=== PATIENT | female | born 1970 | race Caucasian/White ===

== ENCOUNTER 2023-01-20 12:39 | Outpatient (RCR) | payer OTHER, SELFPAY | END 2023-01-21 14:00 | disposition home or self-care (01) | LOC: ST 12:39 | PROVIDERS: PCP Family Medicine; Visit Provider Family Medicine | DX: R13.10 Dysphagia, unspecified (principal); G43.709 Chronic migraine without aura, not intractable, without status migrainosus; I27.20 Pulmonary hypertension, unspecified; R20.0 Anesthesia of skin | CPT/HCPCS: 92610 ==

== ENCOUNTER 2023-01-22 16:12 | Emergency (ER) | payer OTHER, SELFPAY ==
[2023-01-22 16:27] VITALS: BP 137/90; PULSE 82; RESP 16; TEMP 36.8; O2SAT 98; BMI 48.6
--- NOTE | 2023-01-22 16:53 | ED.GENADUL1 ---
HPI - General Adult General Chief complaint: Headache Stated complaint: BACK PAIN, HEADACHE Time Seen by Provider: 01/22/23 16:53 Source: patient Source information: headache, and mid back pain for 2 days Mode of arrival: walk-in Limitations: no limitations History of Present Illness HPI narrative: pt presents to the emergency Department co migraine headache. She states symptoms started 2 days ago. She has not been able to take anything at home. She has a lot of nausea. She has decreased oral intake. She has photophobia, phonophobia. Has a history of migraines and this feels like her normal migraine. Denies any fever, or trauma. She denies any paresthesias, or weakness. Patient states she also has right flank pain and has a history of kidney stones so she wanted to check her urine to see if there is any infection. She denies any vomiting, diarrhea, or constipation. She denies any abdominal pain.She denies any hematuria, dysuria. Related Data Home Medications Medication Instructions Recorded Confirmed albuterol sulfate 90 mcg/actuation inhalation 01/22/23 aerosol inhaler amitriptyline 100 mg tablet mg 01/22/23 amlodipine 2.5 mg tablet mg 01/22/23 cyclobenzaprine 10 mg tablet mg 01/22/23 dronabinol 10 mg capsule mg 01/22/23 febuxostat 40 mg tablet mg 01/22/23 gabapentin 300 mg capsule mg 01/22/23 guanfacine 2 mg tablet,extended mg PO 01/22/23 release 24 hr ipratropium 0.5 mg-albuterol 3 mg ml inhalation 01/22/23 (2.5 mg base)/3 mL nebulization soln metoprolol succinate 25 mg mg PO 01/22/23 tablet,extended release 24 hr montelukast 10 mg tablet mg 01/22/23 ondansetron 8 mg disintegrating mg 01/22/23 tablet pantoprazole 40 mg tablet,delayed mg PO 01/22/23 release promethazine 25 mg tablet mg 01/22/23 spironolactone 50 mg tablet mg 01/22/23 theophylline 300 mg mg PO 01/22/23 tablet,extended release,12 hr Allergies Allergy/AdvReac Type Severity Reaction Status Date / Time latex Allergy Severe Verified 01/22/23 16:41 NSAIDS (Non-Steroidal Allergy Mild Verified 01/22/23 16:41 Anti-Inflamma azithromycin Allergy Verified 01/22/23 16:41 ceftriaxone [From Rocephin] Allergy Verified 01/22/23 16:41 codeine Allergy Verified 01/22/23 16:41 fluticasone Allergy Verified 01/22/23 16:41 [From Advair Diskus] heparin Allergy Verified 01/22/23 16:41 medroxyprogesterone Allergy Verified 01/22/23 16:41 [From Depo-Provera] morphine Allergy Verified 01/22/23 16:41 nalbuphine [From Nubain] Allergy Verified 01/22/23 16:41 Neuromuscular Blockers, Allergy Verified 01/22/23 16:41 Steroidal salmeterol Allergy Verified 01/22/23 16:41 [From Advair Diskus] tizanidine [From Zanaflex] Allergy Verified 01/22/23 16:41 [id number] Antimigraine Allergy Verified 01/22/23 16:41 Agents warfarin [From Coumadin] Allergy Verified 01/22/23 16:41 TORADOL Allergy Uncoded 01/22/23 16:41 Review of Systems ROS Status of ROS 10 or more systems reviewed and unremarkable except as noted in history and below PFSH PFS Social History Smoking status: Former smoker Exam Narrative Exam Narrative: Nurses notes and vital signs reviewed and patient is not hypoxic. General: Nontoxic, Well-appearing and in no apparent distress. Skin: Warm, dry, no pallor noted. No Rash Head: Normocephalic, atraumatic. Neck: Supple, non-tender. Eye: Pupils are equal, round and EOMI. No scleral icterus. Ears, Nose, Mouth, and Throat: TM clear, no posterior oropharynx erythema or nasal mucosal hypertrophy, uvula is mid-line Oral mucosa is moist Cardiovascular: Regular Rate and Rhythm without murmur, gallop or rub. Respiratory: No accessory muscle use or respiratory distress. Lungs are clear to auscultation, no wheezing, rales or rhonchi Chest Wall: no tenderness Back: No midline thoracic or lumbar vertebral tenderness. No CVA tenderness Musculoskeletal: normal ROM, no calf or popliteal tenderness, no lower extremity edema/swelling GI: Abdomen is soft, non-distended. Normal bowel sounds. No masses appreciated. No tenderness to palpation. No rebound, guarding, or rigidity noted. Neurological: A&O x4. No cranial nerve dysfunction observed. No truncal ataxia. Moves all extremities. Sensation intact. Psychiatric: Cooperative and interactive. Normal mood and affect. Constitutional Vital Signs - 24 hr 01/22/23 16:27 01/22/23 16:58 Temperature 98.2 F Pulse Rate 95 H Pulse Rate [Monitor] 82 Respiratory Rate 16 18 Blood Pressure 136/85 H Blood Pressure [Right Radial Artery] 137/90 H Pulse Oximetry 98 95 Oxygen Delivery Method Room Air Course Vital Signs Vital signs: Vital Signs Temperature 98.2 F 01/22/23 16:27 Pulse Rate 82 01/22/23 16:27 Respiratory Rate 16 01/22/23 16:27 Blood Pressure 137/90 H 01/22/23 16:27 Pulse Oximetry 98 01/22/23 16:27 Oxygen Delivery Method Room Air 01/22/23 16:27 Temperature 98.2 F 01/22/23 16:27 Pulse Rate 95 H 01/22/23 16:58 Respiratory Rate 18 01/22/23 16:58 Blood Pressure 136/85 H 01/22/23 16:58 Pulse Oximetry 95 01/22/23 16:58 Oxygen Delivery Method Room Air 01/22/23 16:27 Medical Decision Making MDM Narrative Medical decision making narrative: Patient was given 1 L of normal saline, 4 mg of Zofran, and 1 mg of Dilaudid. Patient states he normally give her Benadryl with this cocktail to help relieve the migraine completely. All of the results were discussed with patient. She is advised to urine does not show any signs of infection or kidney stone. Patient will follow up with primary care doctor. At this time the patient is without objective evidence of an acute process requiring hospitalization or inpatient management. The patient has remained hemodynamically stable. No additional indication for emergent studies at this time. I answered all questions. Discussed discharge instructions including standard anticipatory guidance and what should prompt a return to the emergency department, including if they get worse are not getting better or develops any new or concerning symptoms. I've given them specific time frame in which to follow-up, and who to follow-up with. The patient demonstrates understanding. Patient is nontoxic and stable for discharge with outpatient follow-up. This note was created with the assistance of a speech recognition program. Although the intention is to generate documents that actually reflects the content of the visit, no guarantees can be provided that every mistake has been identified and corrected by editing. Lab Data Labs: Lab Results 01/22/23 Range/Units 16:50 WBC 5.0 (4.0-11.0) 10^3/uL RBC 4.76 (4.20-5.40) 10^6/uL Hgb 14.5 (12.0-16.0) g/dL Hct 42.8 (36.0-48.0) % MCV 89.9 (81.0-99.0) fL MCH 30.5 (26.7-34.0) pg MCHC 33.9 (29.9-35.2) g/dL RDW 12.9 (11.0-15.0) % Plt Count 344 (150-450) 10^3/uL MPV 10.0 (9.5-13.5) fL Neut % (Auto) 39.6 L (43.0-75.0) % Lymph % (Auto) 43.5 (20.5-60.0) % [place] % (Auto) 10.1 (1.7-12.0) % Eos % (Auto) 5.6 (0.9-7.0) % Baso % (Auto) 0.8 (0.2-2.0) % Neut # (Auto) 2.0 (1.4-6.5) 10^3/uL Lymph # (Auto) 2.2 (1.2-3.8) 10^3/uL [place] # (Auto) 0.5 (0.3-0.8) 10^3/uL Eos # (Auto) 0.3 (0.0-0.7) 10^3/uL Baso # (Auto) 0.0 (0.0-0.1) 10^3/uL Abs Immat Gran (auto) 0.02 (0.00-0.03) 10^3/uL Imm/Tot Granulo (auto) 0.4 (0.0-0.5) % Sodium 135 L (136-145) mmol/L Potassium 4.0 (3.5-5.1) mmol/L Chloride 100 (98-107) mmol/L Carbon Dioxide 25.4 (21.0-32.0) mmol/L Anion Gap 13.6 BUN 11.0 (7.0-18.0) mg/dL Creatinine 1.07 H (0.55-1.02) mg/dL Est GFR ( Amer) >60 (>=60) Est GFR (Non-Af Amer) 54 L (>=60) BUN/Creatinine Ratio 10.3 Glucose 100 (74-106) mg/dL Calcium 9.9 (8.5-10.1) mg/dL Total Bilirubin 0.3 (0.2-1.0) mg/dL AST 28 (15-37) U/L ALT 34 (14-59) U/L Alkaline Phosphatase 95 (46-116) U/L Total Protein 9.0 H (6.4-8.2) g/dL Albumin 3.9 (3.4-5.0) g/dL Globulin 5.1 g/dL Albumin/Globulin Ratio 0.8 Urine Color Lt. yellow (YELLOW) Urine Clarity Clear (CLEAR) Urine pH 6.0 (5.0-9.0) Ur Specific [place] <=1.005 A (1.005-1.025) Urine Protein Negative (NEG/TRACE) mg/dL Urine Glucose (UA) Negative (NEGATIVE) mg/dL Urine Ketones Negative (NEGATIVE) mg/dL Urine Occult Blood Negative (NEGATIVE) Urine Nitrite Negative (NEGATIVE) Urine Bilirubin Negative (NEGATIVE) Urine Urobilinogen 0.2 (0.2-1.0) EU/dL Ur Leukocyte Esterase Negative (NEGATIVE) Discharge Plan Discharge Chief Complaint: Headache Clinical Impression: Migraine Patient Disposition: Home, Self-Care Time of Disposition Decision: 17:58 Condition: Good Mode of Transportation: Private Vehicle Prescriptions / Home Meds: No Action cyclobenzaprine 10 mg tablet ipratropium-albuterol 0.5 mg-3 mg(2.5 mg base)/3 mL solution for nebulization INHALATION amlodipine 2.5 mg tablet ondansetron 8 mg tablet,disintegrating theophylline 300 mg tablet extended release 12 hr PO pantoprazole 40 mg tablet,delayed release (DR/EC) PO promethazine 25 mg tablet gabapentin 300 mg capsule montelukast 10 mg tablet dronabinol 10 mg capsule metoprolol succinate 25 mg tablet extended release 24 hr PO albuterol sulfate 90 mcg/actuation HFA aerosol inhaler INHALATION amitriptyline 100 mg tablet spironolactone 50 mg tablet febuxostat 40 mg tablet guanfacine 2 mg tablet extended release 24 hr PO Instructions: Migraine Headache (ED) Stand Alone Forms: Portal Instructions Referrals: COLT WILLIS [Primary Care Provider] - 1 week
[2023-01-22 16:58] VITALS: BP 136/85; PULSE 95; RESP 18; O2SAT 95
[2023-01-22 17:11] LABS: Basophils Percent Auto 0.8 % (0.2-2.0); Eosinophils Absolute Auto 0.3 10^3/uL (0.0-0.7); Eosinophils Percent Auto 5.6 % (0.9-7.0); Hematocrit 42.8 % (36.0-48.0); Hemoglobin 14.5 g/dL (12.0-16.0); Immature Granulocytes Abs Auto 0.02 10^3/uL (0.00-0.03); Immature Granulocytes Pct Auto 0.4 % (0.0-0.5); Lymphocytes Absolute Auto 2.2 10^3/uL (1.2-3.8); Lymphocytes Percent Auto 43.5 % (20.5-60.0); Mean Corpuscular HGB Conc 33.9 g/dL (29.9-35.2); Mean Corpuscular Hemoglobin 30.5 pg (26.7-34.0); Mean Corpuscular Volume 89.9 fL (81.0-99.0); Monocytes Absolute Auto 0.5 10^3/uL (0.3-0.8); Monocytes Percent Auto 10.1 % (1.7-12.0); Neutrophils Percent Auto 39.6 % (43.0-75.0); Platelet Count 344 10^3/uL (150-450); Red Blood Count 4.76 10^6/uL (4.20-5.40); Red Cell Distribution Width 12.9 % (11.0-15.0)
[2023-01-22 17:18] LABS: Bilirubin Urine NEGATIVE (NEGATIVE); Blood Urine NEGATIVE (NEGATIVE); Clarity Urine CLEAR (CLEAR); Color Urine LT. YELLOW (YELLOW); Glucose Urine UA NEGATIVE (NEGATIVE); Ketones Urine NEGATIVE (NEGATIVE); Leukocyte Esterase Urine NEGATIVE (NEGATIVE); Nitrite Urine NEGATIVE (NEGATIVE); Protein Urine NEGATIVE (NEG/TRACE); Specific Gravity Urine <=1.005 (1.005-1.025); Urobilinogen Urine 0.2 EU/dL (0.2-1.0)
[2023-01-22 17:19] LABS: Urine Microscopic Indicated NO
[2023-01-22] MEDS: ONDANSETRON PF 4 MG/2 ML VIAL IV (17:24)
[2023-01-22] MEDS: HYDROMORPHONE HCL 1 MG/ML CARTRIDGE IVP (17:24)
[2023-01-22] MEDS: 0.9 % SODIUM CHLORIDE 1,000 ML 999 ML IV (17:24)
[2023-01-22 17:25] LABS: Alanine Aminotransferase 34 U/L (14-59); Albumin Globulin Ratio 0.8; Albumin Level 3.9 g/dL (3.4-5.0); Alkaline Phosphatase 95 U/L (46-116); Anion Gap 13.6; Aspartate Amino Transferase 28 U/L (15-37); BUN Creatinine Ratio 10.3; Bilirubin Total 0.3 mg/dL (0.2-1.0); Calcium 9.9 mg/dL (8.5-10.1); Carbon Dioxide 25.4 mmol/L (21.0-32.0); Chloride 100 mmol/L (98-107); Estimated GFR (African America >60 (>=60); Estimated GFR (Non-African Ame 54 (>=60); Globulin 5.1 g/dL; Glucose 100 mg/dL (74-106); Sodium 135 mmol/L (136-145)
[2023-01-22 18:07] VITALS: BP 123/97; PULSE 83; RESP 18; O2SAT 95
[2023-01-22 18:47] VITALS: BP 122/86; PULSE 84; RESP 18; O2SAT 96
== END 2023-01-22 18:49 | disposition home or self-care (01) ==
PROVIDERS: Emergency Provider Emergency Medicine; PCP Family Medicine
DX: G43.909 Migraine, unspecified, not intractable, without status migrainosus (principal); Z79.899 Other long term (current) drug therapy; Z87.891 Personal history of nicotine dependence
CPT/HCPCS: 36415; 80053; 81003; 85025; 96374; 96375; 99285; J1170

== ENCOUNTER 2023-01-30 11:21 | Outpatient (OUT) | payer OTHER, SELFPAY ==
[2023-01-30 12:16] LABS: Basophils Absolute Auto 0.1 10^3/uL (0.0-0.1); Basophils Percent Auto 0.7 % (0.2-2.0); Eosinophils Absolute Auto 0.1 10^3/uL (0.0-0.7); Eosinophils Percent Auto 1.7 % (0.9-7.0); Hematocrit 44.8 % (36.0-48.0); Hemoglobin 15.2 g/dL (12.0-16.0); Immature Granulocytes Abs Auto 0.04 10^3/uL (0.00-0.03); Immature Granulocytes Pct Auto 0.5 % (0.0-0.5); Lymphocytes Absolute Auto 2.2 10^3/uL (1.2-3.8); Lymphocytes Percent Auto 26.9 % (20.5-60.0); Mean Corpuscular HGB Conc 33.9 g/dL (29.9-35.2); Mean Corpuscular Volume 88.5 fL (81.0-99.0); Mean Platelet Volume 11.1 fL (9.5-13.5); Monocytes Absolute Auto 0.5 10^3/uL (0.3-0.8); Monocytes Percent Auto 6.5 % (1.7-12.0); Neutrophils Absolute Auto 5.3 10^3/uL (1.4-6.5); Neutrophils Percent Auto 63.7 % (43.0-75.0); Platelet Count 196 10^3/uL (150-450); Red Blood Count 5.06 10^6/uL (4.20-5.40); Red Cell Distribution Width 13.2 % (11.0-15.0); White Blood Count 8.3 10^3/uL (4.0-11.0)
[2023-01-30 12:55] LABS: Erythrocyte Sedimentation Rate 44 mm/hr (<=30)
[2023-01-30 13:13] LABS: C Reactive Protein <0.2 mg/dL (<=1.0)
[2023-01-31 06:23] LABS: Immunoglobulin A, Qn 660 mg/dL (87-352); Immunoglobulin G, Qn 1619 mg/dL (586-1602)
[2023-01-31 15:07] LABS: Antinuclear Antibodies, IFA Positive (.)
[2023-02-04 04:07] LABS: M006-IgE Alternaria alternata <0.10 kU/L (Class 0)
[2023-06-19 15:04] LABS: E001-IgE Cat Dander <0.10; E005-IgE Dog Dander <0.10; M003-IgE Aspergillus fumigatus <0.10; W001-IgE Ragweed, Short <0.10
[2023-06-19 15:05] LABS: D002-IgE D farinae <0.10; G006-IgE Timothy Grass <0.10; T007-IgE Oak, White <0.10
== END 2023-01-30 11:22 | disposition home or self-care (01) ==
LOC: LAB 11:24
PROVIDERS: PCP Family Medicine
DX: Z13.0 Encounter for screening for diseases of the blood and blood-forming organs and certain disorders involving the immune mechanism (principal)
CPT/HCPCS: 36415; 82784; 83520; 85025; 85652; 86003; 86038; 86140; 86317

== ENCOUNTER 2023-02-05 15:41 | Outpatient (OUT) | payer OTHER, SELFPAY ==
[2023-02-05 16:57] LABS: Free T4 1.04 ng/dL (0.76-1.46)
[2023-02-05 17:00] LABS: Thyroid Stimulating Hormone 0.777 uIU/mL (0.358-3.740)
== END 2023-02-05 15:42 | disposition home or self-care (01) ==
PROVIDERS: PCP Family Medicine; Visit Provider Family Medicine
DX: E03.9 Hypothyroidism, unspecified (principal)
CPT/HCPCS: 36415; 84439; 84443

== ENCOUNTER 2023-02-17 12:10 | Outpatient (OUT) | payer OTHER, SELFPAY | END 2023-02-17 12:11 | disposition home or self-care (01) | PROVIDERS: PCP Family Medicine | DX: Z13.0 Encounter for screening for diseases of the blood and blood-forming organs and certain disorders involving the immune mechanism (principal) | CPT/HCPCS: 36415; 86003 ==

== ENCOUNTER 2023-03-04 16:08 | Emergency (ER) | payer OTHER, SELFPAY ==
[2023-03-04 16:17] VITALS: BP 156/92; PULSE 79; RESP 18; TEMP 36.6; O2SAT 98; BMI 40.3
--- NOTE | 2023-03-04 16:45 | ED.GENADUL1 ---
HPI - General Adult General Chief complaint: Headache Stated complaint: HEADACHE Time Seen by Provider: 03/04/23 16:41 Source: patient Mode of arrival: walk-in Limitations: no limitations History of Present Illness HPI narrative: Patient is a 52-year-old female who is presenting to the Emergency Room with chief complaint headache to the occipital area despite going on since Friday. Patient is taking 3 Phenergan today. Patient's had intractable nausea and vomiting. Patient had no trauma, no falls. Patient has long-standing history of headaches and migraines. Patient does see Dr. Sullivan for neurology at [facility]. Patient has a 34 ALLERGIES according to the patient. Patient states is been months since she had a come to the Emergency Room for headache/migraine. Patient's and family member at bedside. Patient has diffuse abdominal cramping. Patient has photophobia. This is patient's typical migraine. Patient's headache was not the worse headache of her life, not sudden onset, not thunderclap in nature. . All systems are negative except as noted/marked. All systems reviewed and otherwise negative. . Nurses note and vital signs reviewed and patient is not hypoxic. General: The patient appears well and in no apparent distress. Patient is resting comfortably on cart. Patient is not toxic, lethargic, or listless Skin: Warm, dry, no pallor noted. There is no rash noted. No petechiae, purpura. Head: Normocephalic, atraumatic, patient not complaining of any tenderness palpation to soft tissue of cervical spine, no meningeal signs or symptoms. Patient is wearing sunglasses. Eye: Normal conjunctiva, no drainage, EOMI. PERRL Ears, Nose, Mouth, and Throat: oral mucosa is moist. Nares patent. Mouth without vesicles. Cardiovascular: Regular Rate and Rhythm, no murmur, gallop, rub Respiratory: Patient is in no distress, no accessory muscle use, lungs are clear to auscultation, no wheezing, rales or rhonchi Back: non-tender, no CVA tenderness bilaterally to percussion. No CT LS midline pain GI: soft, obese,diffuse mild tenderness to palpation, no masses appreciated. No rebound, guarding, or rigidity noted. No flank pain bilateral, No distention Musculoskeletal: Patient has full range of motion of all of the extremities, no motor, sensory, or focal neurological deficits Neurological: A&O x3, normal speech. Psychiatric: Cooperative Related Data Home Medications Medication Instructions Recorded Confirmed albuterol sulfate 90 mcg/actuation inhalation 01/22/23 aerosol inhaler amitriptyline 100 mg tablet mg 01/22/23 amlodipine 2.5 mg tablet mg 01/22/23 cyclobenzaprine 10 mg tablet mg 01/22/23 dronabinol 10 mg capsule mg 01/22/23 febuxostat 40 mg tablet mg 01/22/23 gabapentin 300 mg capsule mg 01/22/23 guanfacine 2 mg tablet,extended mg PO 01/22/23 release 24 hr ipratropium 0.5 mg-albuterol 3 mg ml inhalation 01/22/23 (2.5 mg base)/3 mL nebulization soln metoprolol succinate 25 mg mg PO 01/22/23 tablet,extended release 24 hr montelukast 10 mg tablet mg 01/22/23 ondansetron 8 mg disintegrating mg 01/22/23 tablet pantoprazole 40 mg tablet,delayed mg PO 01/22/23 release promethazine 25 mg tablet mg 01/22/23 spironolactone 50 mg tablet mg 01/22/23 theophylline 300 mg mg PO 01/22/23 tablet,extended release,12 hr Allergies Allergy/AdvReac Type Severity Reaction Status Date / Time latex Allergy Severe Verified 01/22/23 16:41 NSAIDS (Non-Steroidal Allergy Mild Verified 01/22/23 16:41 Anti-Inflamma azithromycin Allergy Verified 01/22/23 16:41 ceftriaxone [From Rocephin] Allergy Verified 01/22/23 16:41 codeine Allergy Verified 01/22/23 16:41 fluticasone Allergy Verified 01/22/23 16:41 [From Advair Diskus] heparin Allergy Verified 01/22/23 16:41 medroxyprogesterone Allergy Verified 01/22/23 16:41 [From Depo-Provera] morphine Allergy Verified 01/22/23 16:41 nalbuphine [From Nubain] Allergy Verified 01/22/23 16:41 Neuromuscular Blockers, Allergy Verified 01/22/23 16:41 Steroidal salmeterol Allergy Verified 01/22/23 16:41 [From Advair Diskus] tizanidine [From Zanaflex] Allergy Verified 01/22/23 16:41 [id number] Antimigraine Allergy Verified 01/22/23 16:41 Agents warfarin [From Coumadin] Allergy Verified 01/22/23 16:41 TORADOL Allergy Uncoded 01/22/23 16:41 PFSH PFSH Social History Smoking status: Former smoker Exam Constitutional Vital Signs, click to edit/add: Last Vital Signs Temp 97.8 F 03/04/23 16:17 Pulse 79 03/04/23 16:17 Resp 18 03/04/23 16:17 BP 156/92 H 03/04/23 16:17 Pulse Ox 98 03/04/23 16:17 O2 Del Method Room Air 03/04/23 16:17 Course Vital Signs Vital signs: Vital Signs Temperature 97.8 F 03/04/23 16:17 Pulse Rate 79 03/04/23 16:17 Respiratory Rate 18 03/04/23 16:17 Blood Pressure 156/92 H 03/04/23 16:17 Pulse Oximetry 98 03/04/23 16:17 Oxygen Delivery Method Room Air 03/04/23 16:17 Temperature 97.8 F 03/04/23 16:17 Pulse Rate 79 03/04/23 16:17 Respiratory Rate 18 03/04/23 16:17 Blood Pressure 156/92 H 03/04/23 16:17 Pulse Oximetry 98 03/04/23 16:17 Oxygen Delivery Method Room Air 03/04/23 16:17 Medical Decision Making MDM Narrative Medical decision making narrative: Patient had initially requested Benadryl, Phenergan, and Dilaudid. Patient states that Dilaudid is the only to help with her migraines. Patient was educated that we do not use Dilaudid for the 1st line treatment of migraines and it is not recommended by the [place] [employer] and also by Dr. Sullivan. Patient was not happy with this, nor was the . However patient was given oxygen, IV Compazine, Benadryl and Norflex. Patient's headache significantly improved. Patient was very thankful for headache relief and will follow-up with Dr. Sullivan needed. Patient's headache was not the worse headache of her life, not sudden onset, not thunderclap in nature. Discharge Plan Discharge Chief Complaint: Headache Clinical Impression: Migraine, Headache, Nausea & vomiting Patient Disposition: Home, Self-Care Condition: Good Prescriptions / Home Meds: No Action cyclobenzaprine 10 mg tablet ipratropium-albuterol 0.5 mg-3 mg(2.5 mg base)/3 mL solution for nebulization INHALATION amlodipine 2.5 mg tablet ondansetron 8 mg tablet,disintegrating theophylline 300 mg tablet extended release 12 hr PO pantoprazole 40 mg tablet,delayed release (DR/EC) PO promethazine 25 mg tablet gabapentin 300 mg capsule montelukast 10 mg tablet dronabinol 10 mg capsule metoprolol succinate 25 mg tablet extended release 24 hr PO albuterol sulfate 90 mcg/actuation HFA aerosol inhaler INHALATION amitriptyline 100 mg tablet spironolactone 50 mg tablet febuxostat 40 mg tablet guanfacine 2 mg tablet extended release 24 hr PO Instructions: Acute Headache (ED), Acute Nausea and Vomiting (DC) Additional Instructions: continue medications, follow-up with Dr. Sullivan Stand Alone Forms: Portal Instructions Referrals: COLT WILLIS [Primary Care Provider] - 1 week Discharge Date/Time: 03/04/23 18:50
[2023-03-04] MEDS: ORPHENADRINE 60 MG/ 2 ML VIAL IV (17:34)
[2023-03-04] MEDS: PROCHLORPERAZINE 10 MG/2 ML VIAL IV (17:34)
[2023-03-04] MEDS: 0.9 % SODIUM CHLORIDE 1,000 ML 1000 ML IV (17:35)
[2023-03-04] MEDS: DIPHENHYDRAMINE HCL 50 MG/ML (1ML) VIAL IV (17:35)
== END 2023-03-04 18:50 | disposition home or self-care (01) ==
PROVIDERS: Emergency Provider Emergency Medicine; PCP Family Medicine
DX: G43.909 Migraine, unspecified, not intractable, without status migrainosus (principal); R11.2 Nausea with vomiting, unspecified; Z79.899 Other long term (current) drug therapy
CPT/HCPCS: 96374; 96375; 99284

== ENCOUNTER 2023-04-25 11:50 | Emergency (ER) | payer OTHER, SELFPAY ==
[2023-04-25 11:54] VITALS: BP 153/97; PULSE 109; RESP 18; TEMP 37.7; O2SAT 97; BMI 40.9
--- NOTE | 2023-04-25 12:13 | ED.SKABFB1 ---
HPI - Skin/Abscess/Foreign Bdy General Chief complaint: Skin/Abscess/Foreign Body Stated complaint: LOWER EXTREMITY PAIN RIGHT CALF Time Seen by Provider: 04/25/23 11:52 Source: patient Mode of arrival: walk-in History of Present Illness HPI narrative: 52-year-old female presents for a small red raised area on her right calf. She believes it's an abscess. She's had it for four days and there is been no drainage. She has a history of abscesses and has had hidradenitis in the past. No fever or injury. It is continuous. Related Data Home Medications Medication Instructions Recorded Confirmed albuterol sulfate 90 mcg/actuation inhalation 01/22/23 aerosol inhaler amitriptyline 100 mg tablet mg 01/22/23 amlodipine 2.5 mg tablet mg 01/22/23 cyclobenzaprine 10 mg tablet mg 01/22/23 dronabinol 10 mg capsule mg 01/22/23 febuxostat 40 mg tablet mg 01/22/23 gabapentin 300 mg capsule mg 01/22/23 guanfacine 2 mg tablet,extended mg PO 01/22/23 release 24 hr ipratropium 0.5 mg-albuterol 3 mg ml inhalation 01/22/23 (2.5 mg base)/3 mL nebulization soln metoprolol succinate 25 mg mg PO 01/22/23 tablet,extended release 24 hr montelukast 10 mg tablet mg 01/22/23 ondansetron 8 mg disintegrating mg 01/22/23 tablet pantoprazole 40 mg tablet,delayed mg PO 01/22/23 release promethazine 25 mg tablet mg 01/22/23 spironolactone 50 mg tablet mg 01/22/23 theophylline 300 mg mg PO 01/22/23 tablet,extended release,12 hr Previous Rx's Medication Instructions Recorded cephalexin 500 mg capsule 500 mg PO QID 10 days #40 caps 04/25/23 fluconazole 150 mg tablet 150 mg PO DAILY 1 dose #1 tab 04/25/23 (Diflucan) sulfamethoxazole 800 1 tab PO BID 10 days #20 tabs 04/25/23 mg-trimethoprim 160 mg tablet (Bactrim DS) Allergies Allergy/AdvReac Type Severity Reaction Status Date / Time latex Allergy Severe Verified 01/22/23 16:41 NSAIDS (Non-Steroidal Allergy Mild Verified 01/22/23 16:41 Anti-Inflamma azithromycin Allergy Verified 01/22/23 16:41 ceftriaxone [From Rocephin] Allergy Verified 01/22/23 16:41 codeine Allergy Verified 01/22/23 16:41 fluticasone Allergy Verified 01/22/23 16:41 [From Advair Diskus] heparin Allergy Verified 01/22/23 16:41 medroxyprogesterone Allergy Verified 01/22/23 16:41 [From Depo-Provera] morphine Allergy Verified 01/22/23 16:41 nalbuphine [From Nubain] Allergy Verified 01/22/23 16:41 Neuromuscular Blockers, Allergy Verified 01/22/23 16:41 Steroidal salmeterol Allergy Verified 01/22/23 16:41 [From Advair Diskus] tizanidine [From Zanaflex] Allergy Verified 01/22/23 16:41 [id number] Antimigraine Allergy Verified 01/22/23 16:41 Agents warfarin [From Coumadin] Allergy Verified 01/22/23 16:41 TORADOL Allergy Uncoded 01/22/23 16:41 Review of Systems ROS Narrative A ten point review of systems is negative except as noted above. PFSH PFSH Social History Smoking status: Former smoker Exam Narrative Exam Narrative: Nurses note and vital signs reviewed and patient is not hypoxic. General: The patient appears well and in no apparent distress. Patient is resting comfortably on cart. Skin: Warm, dry, no pallor noted. There is no rash noted. Head: Normocephalic, atraumatic Eye: Normal conjunctiva, no drainage Ears, Nose, Mouth, and Throat: oral mucosa is moist. Nares patent. Cardiovascular: Regular Rate and Rhythm Respiratory: Patient is in no distress, no accessory muscle use, lungs are clear to auscultation, no wheezing, rales or rhonchi Back: non-tender GI: often nontender Musculoskeletal: the medial right calf has an area of erythema that is approximately 1 cm in diameter and is minimally raised. There is no open areas or drainage or fluctuance. Lesions present. Neurological: A&O, normal speech Psychiatric: Cooperative Constitutional Vital Signs, click to edit/add: Last Vital Signs Temp 99.8 F 04/25/23 11:54 Pulse 109 H 04/25/23 11:54 Resp 18 04/25/23 11:54 BP 153/97 H 04/25/23 11:54 Pulse Ox 97 04/25/23 11:54 Course Vital Signs Vital signs: Vital Signs Temperature 99.8 F 04/25/23 11:54 Pulse Rate 109 H 04/25/23 11:54 Respiratory Rate 18 04/25/23 11:54 Blood Pressure 153/97 H 04/25/23 11:54 Pulse Oximetry 97 04/25/23 11:54 Temperature 99.8 F 04/25/23 11:54 Pulse Rate 109 H 04/25/23 11:54 Respiratory Rate 18 04/25/23 11:54 Blood Pressure 153/97 H 04/25/23 11:54 Pulse Oximetry 97 04/25/23 11:54 MDM - Skin/Abscess/Foreign Bdy MDM Narrative Medical decision making narrative: the patient appears to have an early abscess. Incision and drainage is not indicated. She's given IM Ancef and prescribed Keflex and Bactrim and will use warm compresses. Treatment diagnosis and follow-up were discussed with the patient. I've no clinical suspicion of deep vein thrombosis. Differential Diagnosis Differential diagnosis: Likely abscess of skin or subcutaneous tissue and cellulitis Discharge Plan Discharge Chief Complaint: Skin/Abscess/Foreign Body Clinical Impression: Abscess Patient Disposition: Home, Self-Care Time of Disposition Decision: 12:02 Condition: Good Mode of Transportation: Private Vehicle Prescriptions / Home Meds: New sulfamethoxazole-trimethoprim [Bactrim DS] 800-160 mg tablet 1 tab PO BID 10 Days Qty: 20 0RF cephalexin 500 mg capsule 500 mg PO QID 10 Days Qty: 40 0RF fluconazole [Diflucan] 150 mg tablet 150 mg PO DAILY Qty: 1 0RF Rx Instructions: administer on day 1 of therapy No Action cyclobenzaprine 10 mg tablet ipratropium-albuterol 0.5 mg-3 mg(2.5 mg base)/3 mL solution for nebulization INHALATION amlodipine 2.5 mg tablet ondansetron 8 mg tablet,disintegrating theophylline 300 mg tablet extended release 12 hr PO pantoprazole 40 mg tablet,delayed release (DR/EC) PO promethazine 25 mg tablet gabapentin 300 mg capsule montelukast 10 mg tablet dronabinol 10 mg capsule metoprolol succinate 25 mg tablet extended release 24 hr PO albuterol sulfate 90 mcg/actuation HFA aerosol inhaler INHALATION amitriptyline 100 mg tablet spironolactone 50 mg tablet febuxostat 40 mg tablet guanfacine 2 mg tablet extended release 24 hr PO Instructions: Abscess (ED) Stand Alone Forms: Portal Instructions Referrals: Physician,Non-Staff, MD [Primary Care Provider] - 1 week
[2023-04-25] MEDS: CEFAZOLIN SODIUM 1,000 MG, WATER FOR INJECTION,STERILE 2.5 ML IM (12:27)
== END 2023-04-25 12:29 | disposition home or self-care (01) ==
PROVIDERS: Emergency Provider Emergency Medicine
DX: L02.415 Cutaneous abscess of right lower limb (principal); Z87.891 Personal history of nicotine dependence; Z79.899 Other long term (current) drug therapy
CPT/HCPCS: 96374; 99284

== ENCOUNTER 2023-11-04 14:39 | Emergency (ER) | payer MEDICARE, SELFPAY ==
[2023-11-04] VITALS (8 sets, daily range): BP systolic 147–196; BP diastolic 90–117; PULSE 110–131; RESP 18–34; O2SAT 96–98; BMI 38.8
--- NOTE | 2023-11-04 15:04 | ED_ITS ---
HPI - Abdominal Pain General Chief Complaint: Abdominal Pain Stated Complaint: CHEST PAIN, HIGH BLOOD PRESSURE Time Seen by Provider: 11/04/23 15:03 Source: patient Mode of arrival: Wheelchair History of Present Illness HPI narrative: Patient here with family members for pain in her left upper quadrant lower chest cage area. She said the symptoms started last and were in her flank area and now is moved around her left lower chest wall to her left upper quadrant. She does not have any sternal or midsternal discomfort. She has no pain rating to her neck or jaw. No previous cardiovascular problems. She does have history of hypertension but no diabetes. She does not have any fevers shakes or chills. She has had some nausea and is tried to vomit . Does not have any use of antibiotics but she was taking Azo for couple days with no relief. She does have a history of kidney stones in the past. Related Data Home Medications ?Medication ?Instructions ?Recorded ?Confirmed albuterol sulfate 90 mcg/actuation inhalation 01/22/23 aerosol inhaler amitriptyline 100 mg tablet mg 01/22/23 amlodipine 2.5 mg tablet mg 01/22/23 cyclobenzaprine 10 mg tablet mg 01/22/23 dronabinol 10 mg capsule mg 01/22/23 febuxostat 40 mg tablet mg 01/22/23 gabapentin 300 mg capsule mg 01/22/23 guanfacine 2 mg tablet,extended mg PO 01/22/23 release 24 hr ipratropium 0.5 mg-albuterol 3 mg ml inhalation 01/22/23 (2.5 mg base)/3 mL nebulization soln metoprolol succinate 25 mg mg PO 01/22/23 tablet,extended release 24 hr montelukast 10 mg tablet mg 01/22/23 ondansetron 8 mg disintegrating mg 01/22/23 tablet pantoprazole 40 mg tablet,delayed mg PO 01/22/23 release promethazine 25 mg tablet mg 01/22/23 spironolactone 50 mg tablet mg 01/22/23 theophylline 300 mg mg PO 01/22/23 tablet,extended release,12 hr Previous Rx's ?Medication ?Instructions ?Recorded cephalexin 500 mg capsule 500 mg PO QID 10 days #40 caps 04/25/23 fluconazole 150 mg tablet 150 mg PO DAILY 1 dose #1 tab 04/25/23 (Diflucan) sulfamethoxazole 800 1 tab PO BID 10 days #20 tabs 04/25/23 mg-trimethoprim 160 mg tablet (Bactrim DS) Allergies Allergy/AdvReac Type Severity Reaction Status Date / Time latex Allergy Severe Verified 01/22/23 16:41 NSAIDS (Non-Steroidal Allergy Mild Verified 01/22/23 16:41 Anti-Inflamma azithromycin Allergy Verified 01/22/23 16:41 ceftriaxone [From Rocephin] Allergy Verified 01/22/23 16:41 codeine Allergy Verified 01/22/23 16:41 fluticasone Allergy Verified 01/22/23 16:41 [From Advair Diskus] heparin Allergy Verified 01/22/23 16:41 medroxyprogesterone Allergy Verified 01/22/23 16:41 [From Depo-Provera] morphine Allergy Verified 01/22/23 16:41 nalbuphine [From Nubain] Allergy Verified 01/22/23 16:41 Neuromuscular Blockers, Allergy Verified 01/22/23 16:41 Steroidal salmeterol Allergy Verified 01/22/23 16:41 [From Advair Diskus] tizanidine [From Zanaflex] Allergy Verified 01/22/23 16:41 [id number] Antimigraine Allergy Verified 01/22/23 16:41 Agents warfarin [From Coumadin] Allergy Verified 01/22/23 16:41 TORADOL Allergy Uncoded 01/22/23 16:41 [facility] Social History Smoking status: Former smoker Exam Narrative Exam Narrative: Awake alert oriented x 3. Appears uncomfortable but not in does not appear toxic or critical. Her vital signs are able as. I did quit clear with your heart she has a full multiple medication Maury. A stat twelve-lead EKG was done on arrival here does not show any gross abnormalities. Heart rate was increased. She is holding her left lateral chest wall area. Examining her lungs there is no wheeze rales or rhonchi there is no pleural or pericardial rub. There is no evidence of shingles or other skin lesions on the chest wall. She does not have any abdominal tenderness or splenomegaly to palpation. There is no guarding rebound or rigidity. ENT examination shows no pallor or anemia. There is no scleral icterus. Extremities Extremities show no evidence of phlebitis edema tenderness ropiness or other abnormalities. Constitutional Vital Signs, click to edit/add: Last Vital Signs Pulse 119 H 11/04/23 14:53 Resp 18 11/04/23 14:53 BP 196/117 H 11/04/23 14:53 Pulse Ox 98 11/04/23 14:53 O2 Del Method Room Air 11/04/23 14:53 Course Vital Signs Vital signs: Vital Signs Pulse Rate 119 H 11/04/23 14:53 Respiratory Rate 18 11/04/23 14:53 Blood Pressure 196/117 H 11/04/23 14:53 Pulse Oximetry 98 11/04/23 14:53 Oxygen Delivery Method Room Air 11/04/23 14:53 Pulse Rate 119 H 11/04/23 14:53 Respiratory Rate 18 11/04/23 14:53 Blood Pressure 196/117 H 11/04/23 14:53 Pulse Oximetry 98 11/04/23 14:53 Oxygen Delivery Method Room Air 11/04/23 14:53 MDM - Abdominal Pain MDM Narrative Medical decision making narrative: Patient's laboratory findings essentially unremarkable. Because of her history of ureteral lithiasis we will go ahead and get a CT scan. And although she does have nephrolithiasis, there is no obstruction. There is no evidence of abnormalities of her spleen or the pancreas. There is diverticulosis with no diverticulitis and she has a normal bowel gas pattern per the radiologist. No other acute findings were noted by the radiologist. The patient says that she normally responds to Phenergan and Dilaudid. Lab Data Labs: Lab Results 11/04/23 11/04/23 Range/Units 15:10 15:36 WBC 5.9 (4.0-11.0) 10^3/uL RBC 5.48 H (4.20-5.40) 10^6/uL Hgb 16.4 H (12.0-16.0) g/dL Hct 48.0 (36.0-48.0) % MCV 87.6 (81.0-99.0) fL MCH 29.9 (26.7-34.0) pg MCHC 34.2 (29.9-35.2) g/dL RDW 12.8 (11.0-15.0) % Plt Count 370 (150-450) 10^3/uL MPV 9.7 (9.5-13.5) fL Neut % (Auto) 44.8 (43.0-75.0) % Lymph % (Auto) 42.2 (20.5-60.0) % [place] % (Auto) 10.7 (1.7-12.0) % Eos % (Auto) 1.4 (0.9-7.0) % Baso % (Auto) 0.7 (0.2-2.0) % Neut # (Auto) 2.6 (1.4-6.5) 10^3/uL Lymph # (Auto) 2.5 (1.2-3.8) 10^3/uL [place] # (Auto) 0.6 (0.3-0.8) 10^3/uL Eos # (Auto) 0.1 (0.0-0.7) 10^3/uL Baso # (Auto) 0.0 (0.0-0.1) 10^3/uL Abs Immat Gran (auto) 0.01 (0.00-0.03) 10^3/uL Imm/Tot Granulo (auto) 0.2 (0.0-0.5) % Sodium 137 (136-145) mmol/L Potassium 3.2 L (3.5-5.1) mmol/L Chloride 100 (98-107) mmol/L Carbon Dioxide 23.6 (21.0-32.0) mmol/L Anion Gap 16.6 BUN 15.0 (7.0-18.0) mg/dL Creatinine 1.11 H (0.55-1.02) mg/dL Est GFR ( Amer) >60 (>=60) Est GFR (Non-Af Amer) 51 L (>=60) BUN/Creatinine Ratio 13.5 Glucose 100 (74-106) mg/dL Calcium 10.7 H (8.5-10.1) mg/dL Total Bilirubin 0.4 (0.2-1.0) mg/dL AST 32 (15-37) U/L ALT 31 (14-59) U/L Alkaline Phosphatase 103 (46-116) U/L Troponin I High Sens 5.3 (4.0-51.3) pg/mL Total Protein 9.9 H (6.4-8.2) g/dL Albumin 4.5 (3.4-5.0) g/dL Globulin 5.4 g/dL Albumin/Globulin Ratio 0.8 Lipase 40.0 (16.0-77.0) U/L Urine Color Lt. yellow (YELLOW) Urine Clarity Clear (CLEAR) Urine pH 6.0 (5.0-9.0) Ur Specific [place] <=1.005 A (1.005-1.025) Urine Protein Negative (NEG/TRACE) mg/dL Urine Glucose (UA) Negative (NEGATIVE) mg/dL Urine Ketones Negative (NEGATIVE) mg/dL Urine Occult Blood Negative (NEGATIVE) Urine Nitrite Negative (NEGATIVE) Urine Bilirubin Negative (NEGATIVE) Urine Urobilinogen 0.2 (0.2-1.0) EU/dL Ur Leukocyte Esterase Negative (NEGATIVE) Discharge Plan Discharge Stand Alone Forms: Portal Instructions Chief Complaint: Abdominal Pain Clinical Impression: Abdominal pain Patient Disposition: Home, Self-Care Time of Disposition Decision: 17:37 Prescriptions / Home Meds: No Action sulfamethoxazole-trimethoprim [Bactrim DS] 800-160 mg tablet 1 tab PO BID 10 Days Qty: 20 0RF cephalexin 500 mg capsule 500 mg PO QID 10 Days Qty: 40 0RF fluconazole [Diflucan] 150 mg tablet 150 mg PO DAILY Qty: 1 0RF Rx Instructions: administer on day 1 of therapy cyclobenzaprine 10 mg tablet ipratropium-albuterol 0.5 mg-3 mg(2.5 mg base)/3 mL solution for nebulization INHALATION amlodipine 2.5 mg tablet ondansetron 8 mg tablet,disintegrating theophylline 300 mg tablet extended release 12 hr PO pantoprazole 40 mg tablet,delayed release (DR/EC) PO promethazine 25 mg tablet gabapentin 300 mg capsule montelukast 10 mg tablet dronabinol 10 mg capsule metoprolol succinate 25 mg tablet extended release 24 hr PO albuterol sulfate 90 mcg/actuation HFA aerosol inhaler INHALATION amitriptyline 100 mg tablet spironolactone 50 mg tablet febuxostat 40 mg tablet guanfacine 2 mg tablet extended release 24 hr PO Print Language: Tajik Additional Instructions: Resume previous medications as needed Referrals: Physician,Non-Staff, MD [Primary Care Provider] - 1 week
[2023-11-04] MEDS: 0.9 % SODIUM CHLORIDE 1,000 ML 100 ML IV (15:38)
[2023-11-04 15:42] LABS: Basophils Percent Auto 0.7 % (0.2-2.0); Eosinophils Absolute Auto 0.1 10^3/uL (0.0-0.7); Eosinophils Percent Auto 1.4 % (0.9-7.0); Hemoglobin 16.4 g/dL (12.0-16.0); Immature Granulocytes Abs Auto 0.01 10^3/uL (0.00-0.03); Immature Granulocytes Pct Auto 0.2 % (0.0-0.5); Lymphocytes Absolute Auto 2.5 10^3/uL (1.2-3.8); Lymphocytes Percent Auto 42.2 % (20.5-60.0); Mean Corpuscular HGB Conc 34.2 g/dL (29.9-35.2); Mean Corpuscular Hemoglobin 29.9 pg (26.7-34.0); Mean Corpuscular Volume 87.6 fL (81.0-99.0); Mean Platelet Volume 9.7 fL (9.5-13.5); Monocytes Absolute Auto 0.6 10^3/uL (0.3-0.8); Monocytes Percent Auto 10.7 % (1.7-12.0); Neutrophils Absolute Auto 2.6 10^3/uL (1.4-6.5); Neutrophils Percent Auto 44.8 % (43.0-75.0); Platelet Count 370 10^3/uL (150-450); Red Blood Count 5.48 10^6/uL (4.20-5.40); Red Cell Distribution Width 12.8 % (11.0-15.0); White Blood Count 5.9 10^3/uL (4.0-11.0)
[2023-11-04 15:43] LABS: Bilirubin Urine NEGATIVE (NEGATIVE); Blood Urine NEGATIVE (NEGATIVE); Clarity Urine CLEAR (CLEAR); Color Urine LT. YELLOW (YELLOW); Glucose Urine UA NEGATIVE (NEGATIVE); Ketones Urine NEGATIVE (NEGATIVE); Leukocyte Esterase Urine NEGATIVE (NEGATIVE); Nitrite Urine NEGATIVE (NEGATIVE); Protein Urine NEGATIVE (NEG/TRACE); Specific Gravity Urine <=1.005 (1.005-1.025); Urobilinogen Urine 0.2 EU/dL (0.2-1.0)
[2023-11-04 15:44] LABS: Urine Microscopic Indicated NO
[2023-11-04 16:03] LABS: Alanine Aminotransferase 31 U/L (14-59); Albumin Globulin Ratio 0.8; Albumin Level 4.5 g/dL (3.4-5.0); Alkaline Phosphatase 103 U/L (46-116); Anion Gap 16.6; Aspartate Amino Transferase 32 U/L (15-37); BUN Creatinine Ratio 13.5; Bilirubin Total 0.4 mg/dL (0.2-1.0); Calcium 10.7 mg/dL (8.5-10.1); Carbon Dioxide 23.6 mmol/L (21.0-32.0); Chloride 100 mmol/L (98-107); Estimated GFR (African America >60 (>=60); Estimated GFR (Non-African Ame 51 (>=60); Globulin 5.4 g/dL; Glucose 100 mg/dL (74-106); Potassium 3.2 mmol/L (3.5-5.1); Sodium 137 mmol/L (136-145); Total Protein 9.9 g/dL (6.4-8.2); Troponin I High Sensitivity 5.3 pg/mL (4.0-51.3)
--- NOTE | 2023-11-04 16:20 | CT_ITS ---
[address] [address] Patient Name: DIOGENES JAMIL MRN: [id number] date: 1970 Sex: F Assigned Patient Location: ER Current Patient Location: ER Accession/Order Number: [id number] Exam Date: 11/04/2023 16:17 Report Date: 11/04/2023 16:46 At the request of: MALINI HARGROVE Procedure: CT abdomen pelvis wo con EXAMINATION: CT abdomen pelvis wo con HISTORY: Left flank pain COMPARISON: No relevant comparison available. TECHNIQUE: Axial, Coronal, and Sagittal images were created without IV contrast. Dose reduction techniques were achieved by using automated exposure control and/or adjustment of mA and/or kV according to patient size and/or use of iterative reconstruction technique. FINDINGS: LUNG BASES: No visible pulmonary or pleural disease. LIVER: No enlargement, atrophy, abnormal density, or significant focal lesion. BILIARY: Surgical clips from cholecystectomy PANCREAS: No lesion, fluid collection, ductal dilatation, or atrophy. SPLEEN: No enlargement or focal lesion. ADRENALS: No mass or enlargement. KIDNEYS: Punctate bilateral nephroliths. No hydronephrosis BOWEL/MESENTERY: Colonic diverticulosis without evidence of acute diverticulitis. Nonobstructive bowel gas pattern. AORTA/VASCULAR: No aneurysm. Mild atherosclerosis RETROPERITONEUM: No mass or adenopathy. LYMPH NODES: No adenopathy. URINARY BLADDER: No visible focal wall thickening, lesion, or calculus. PELVIC ORGANS: Hysterectomy. Pelvic calcifications, vascular phleboliths favored ABDOMINAL WALL: No mass or hernia. BONES: No bony lesion or fracture. OTHER: Negative. CT/CT abdomen pelvis wo con IMPRESSION: No obstructive uropathy Electronically authenticated by: SOY LEIGH Date: 11/04/2023 16:46
[2023-11-04] MEDS: PROMETHAZINE HCL 12.5 MG in 0.9 % SODIUM CHLORIDE 50 ML 202 MG IV (17:23)
[2023-11-04] MEDS: HYDROMORPHONE HCL 0.5 MG/0.5 ML SYRINGE IV (17:24)
--- NOTE | 2023-11-04 18:13 | ECG_ITS ---
[facility] Test Date: 2023-11-04 Pat Name: DIOGENES JAMIL Department: Room: - Gender: Female [employer]: : 1970 Requested By: [id number] Order Number: [id number] Reading MD: CHETAN MCKEON Measurements Intervals [place] Rate: 123 P: 68 [place]: 178 QRS: -18 QRSD: 80 T: 45 QT: 314 QTc: 387 Interpretive Statements 1120 Sinus tachycardia 9140 abnormal rhythm ECG Compared to ECG 09/12/2018 19:42:58 Sinus rhythm no longer present Electronically Signed On 11-04-2023 23:39:42 EDT by CHETAN MCKEON
== END 2023-11-04 17:59 | disposition home or self-care (01) ==
PROVIDERS: Emergency Provider Emergency Medicine Emergency Medical Services
DX: R10.9 Unspecified abdominal pain (principal); Z79.899 Other long term (current) drug therapy; Z87.891 Personal history of nicotine dependence
CPT/HCPCS: 36415; 74176; 80053; 81003; 83605; 83690; 84484; 85025; 93005; 96374; 96375; 99285; J1170

== ENCOUNTER 2023-11-26 15:41 | Emergency (ER) | payer MEDICARE, SELFPAY ==
[2023-11-26 15:46] VITALS: BP 157/91; PULSE 131; TEMP 37.6; O2SAT 98; BMI 38.3
--- NOTE | 2023-11-26 15:53 | ECG_ITS ---
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
--- NOTE | 2023-11-26 15:55 | ED.HA1 ---
HPI - Headache General Chief Complaint: Arrhythmia/Palpitations Stated Complaint: Heart Race Fast Headache Time Seen by Provider: 11/26/23 15:46 Source: patient Mode of arrival: walk-in Limitations: no limitations History of Present Illness HPI Narrative: 53-year-old female presents to the emergency department for headache. At the top of her head and she has had it for about 5 days. No trauma fever or stiff neck. She gets these headaches frequently and this is not the worst headache of her life and it was not of sudden onset. She also states that her heart often is fast. No localized weakness. Related Data Home Medications ?Medication ?Instructions ?Recorded ?Confirmed albuterol sulfate 90 mcg/actuation inhalation 01/22/23 aerosol inhaler amitriptyline 100 mg tablet mg 01/22/23 amlodipine 2.5 mg tablet mg 01/22/23 cyclobenzaprine 10 mg tablet mg 01/22/23 dronabinol 10 mg capsule mg 01/22/23 febuxostat 40 mg tablet mg 01/22/23 gabapentin 300 mg capsule mg 01/22/23 guanfacine 2 mg tablet,extended mg PO 01/22/23 release 24 hr ipratropium 0.5 mg-albuterol 3 mg ml inhalation 01/22/23 (2.5 mg base)/3 mL nebulization soln metoprolol succinate 25 mg mg PO 01/22/23 tablet,extended release 24 hr montelukast 10 mg tablet mg 01/22/23 ondansetron 8 mg disintegrating mg 01/22/23 tablet pantoprazole 40 mg tablet,delayed mg PO 01/22/23 release promethazine 25 mg tablet mg 01/22/23 spironolactone 50 mg tablet mg 01/22/23 theophylline 300 mg mg PO 01/22/23 tablet,extended release,12 hr Previous Rx's ?Medication ?Instructions ?Recorded cephalexin 500 mg capsule 500 mg PO QID 10 days #40 caps 04/25/23 fluconazole 150 mg tablet 150 mg PO DAILY 1 dose #1 tab 04/25/23 (Diflucan) sulfamethoxazole 800 1 tab PO BID 10 days #20 tabs 04/25/23 mg-trimethoprim 160 mg tablet (Bactrim DS) Allergies Allergy/AdvReac Type Severity Reaction Status Date / Time latex Allergy Severe Verified 01/22/23 16:41 NSAIDS (Non-Steroidal Allergy Mild Verified 01/22/23 16:41 Anti-Inflamma azithromycin Allergy Verified 01/22/23 16:41 ceftriaxone [From Rocephin] Allergy Verified 01/22/23 16:41 codeine Allergy Verified 01/22/23 16:41 fluticasone Allergy Verified 01/22/23 16:41 [From Advair Diskus] heparin Allergy Verified 01/22/23 16:41 medroxyprogesterone Allergy Verified 01/22/23 16:41 [From Depo-Provera] morphine Allergy Verified 01/22/23 16:41 nalbuphine [From Nubain] Allergy Verified 01/22/23 16:41 Neuromuscular Blockers, Allergy Verified 01/22/23 16:41 Steroidal salmeterol Allergy Verified 01/22/23 16:41 [From Advair Diskus] tizanidine [From Zanaflex] Allergy Verified 01/22/23 16:41 [id number] Antimigraine Allergy Verified 01/22/23 16:41 Agents warfarin [From Coumadin] Allergy Verified 01/22/23 16:41 TORADOL Allergy Uncoded 01/22/23 16:41 Review of Systems ROS Narrative A ten point review of systems is negative except as noted above. PFSH PFSH Social History Smoking status: Former smoker Exam Narrative Exam Narrative: Nurses note and vital signs reviewed and patient is not hypoxic. General: The patient appears well and in no apparent distress. Patient is resting comfortably on cart. Skin: Warm, dry, no pallor noted. There is no rash noted. Head: Normocephalic, atraumatic, no nuchal rigidity Eye: Normal conjunctiva, no drainage Ears, Nose, Mouth, and Throat: oral mucosa is moist. Nares patent. Cardiovascular: Regular Rate and Rhythm Respiratory: Patient is in no distress, no accessory muscle use, lungs are clear to auscultation, no wheezing, rales or rhonchi Back: non-tender GI: Soft and nontender Musculoskeletal: The patient has no evidence of calf tenderness, no pitting edema, symmetrical pulses noted bilaterally Neurological: A&O, normal speech, upper and lower extremity strength intact Psychiatric: Cooperative Constitutional Vital Signs, click to edit/add: Last Vital Signs Temp 99.7 F 11/26/23 15:46 Pulse 131 H 04/17/24 15:46 Resp 24 H 11/26/23 15:46 BP 157/91 H 11/26/23 15:46 Pulse Ox 98 11/26/23 15:46 O2 Del Method Room Air 11/26/23 15:46 Course Vital Signs Vital signs: Vital Signs Temperature 99.7 F 11/26/23 15:46 Pulse Rate 131 H 11/26/23 15:46 Respiratory Rate 24 H 11/26/23 15:46 Blood Pressure 157/91 H 11/26/23 15:46 Pulse Oximetry 98 11/26/23 15:46 Oxygen Delivery Method Room Air 11/26/23 15:46 Temperature 99.7 F 11/26/23 15:46 Pulse Rate 131 H 11/26/23 15:46 Respiratory Rate 24 H 11/26/23 15:46 Blood Pressure 157/91 H 11/26/23 15:46 Pulse Oximetry 98 11/26/23 15:46 Oxygen Delivery Method Room Air 11/26/23 15:46 MDM - Headache MDM Narrative Medical decision making narrative: The patient was given IV Compazine, Benadryl, and Norflex as well as IV fluids. This has helped her in the past and she feels much better now. She is able to be discharged home. Treatment diagnosis and follow-up were discussed with the patient. I have no clinical suspicion of acute intracranial pathology. Differential Diagnosis Differential diagnosis: Likely migraine, tension headache and headache Lab Data Attestation: I reviewed the patient's lab results. Labs: Lab Results 11/26/23 Range/Units 16:25 WBC 6.5 (4.0-11.0) 10^3/uL RBC 4.82 (4.20-5.40) 10^6/uL Hgb 14.3 (12.0-16.0) g/dL Hct 41.8 (36.0-48.0) % MCV 86.7 (81.0-99.0) fL MCH 29.7 (26.7-34.0) pg MCHC 34.2 (29.9-35.2) g/dL RDW 12.6 (11.0-15.0) % Plt Count 338 (150-450) 10^3/uL MPV 9.6 (9.5-13.5) fL Neut % (Auto) 56.6 (43.0-75.0) % Lymph % (Auto) 32.6 (20.5-60.0) % [place] % (Auto) 8.3 (1.7-12.0) % Eos % (Auto) 1.5 (0.9-7.0) % Baso % (Auto) 0.8 (0.2-2.0) % Neut # (Auto) 3.7 (1.4-6.5) 10^3/uL Lymph # (Auto) 2.1 (1.2-3.8) 10^3/uL [place] # (Auto) 0.5 (0.3-0.8) 10^3/uL Eos # (Auto) 0.1 (0.0-0.7) 10^3/uL Baso # (Auto) 0.1 (0.0-0.1) 10^3/uL Abs Immat Gran (auto) 0.01 (0.00-0.03) 10^3/uL Imm/Tot Granulo (auto) 0.2 (0.0-0.5) % Sodium 138 (136-145) mmol/L Potassium 3.4 L (3.5-5.1) mmol/L Chloride 102 (98-107) mmol/L Carbon Dioxide 22.1 (21.0-32.0) mmol/L Anion Gap 17.3 BUN 13.0 (7.0-18.0) mg/dL Creatinine 1.14 H (0.55-1.02) mg/dL Est GFR ( Amer) >60 (>=60) Est GFR (Non-Af Amer) 50 L (>=60) BUN/Creatinine Ratio 11.4 Glucose 94 (74-106) mg/dL Calcium 10.2 H (8.5-10.1) mg/dL Discharge Plan Discharge Stand Alone Forms: Portal Instructions Chief Complaint: Arrhythmia/Palpitations Clinical Impression: Headache Patient Disposition: Home, Self-Care Time of Disposition Decision: 17:15 Condition: Good Mode of Transportation: Private Vehicle Prescriptions / Home Meds: No Action sulfamethoxazole-trimethoprim [Bactrim DS] 800-160 mg tablet 1 tab PO BID 10 Days Qty: 20 0RF cephalexin 500 mg capsule 500 mg PO QID 10 Days Qty: 40 0RF fluconazole [Diflucan] 150 mg tablet 150 mg PO DAILY Qty: 1 0RF Rx Instructions: administer on day 1 of therapy cyclobenzaprine 10 mg tablet ipratropium-albuterol 0.5 mg-3 mg(2.5 mg base)/3 mL solution for nebulization INHALATION amlodipine 2.5 mg tablet ondansetron 8 mg tablet,disintegrating theophylline 300 mg tablet extended release 12 hr PO pantoprazole 40 mg tablet,delayed release (DR/EC) PO promethazine 25 mg tablet gabapentin 300 mg capsule montelukast 10 mg tablet dronabinol 10 mg capsule metoprolol succinate 25 mg tablet extended release 24 hr PO albuterol sulfate 90 mcg/actuation HFA aerosol inhaler INHALATION amitriptyline 100 mg tablet spironolactone 50 mg tablet febuxostat 40 mg tablet guanfacine 2 mg tablet extended release 24 hr PO Print Language: Bulgarian Instructions: Acute Headache (ED) Referrals: [facility] [Primary Care Provider] - 1 week
[2023-11-26] MEDS: PROCHLORPERAZINE 10 MG/2 ML VIAL IV (16:19)
[2023-11-26] MEDS: ORPHENADRINE 60 MG/ 2 ML VIAL 30 MG IV (16:19)
[2023-11-26] MEDS: DIPHENHYDRAMINE HCL 50 MG/ML (1ML) VIAL 25 MG IV (16:20)
[2023-11-26 16:33] LABS: Basophils Absolute Auto 0.1 10^3/uL (0.0-0.1); Basophils Percent Auto 0.8 % (0.2-2.0); Eosinophils Absolute Auto 0.1 10^3/uL (0.0-0.7); Eosinophils Percent Auto 1.5 % (0.9-7.0); Hematocrit 41.8 % (36.0-48.0); Hemoglobin 14.3 g/dL (12.0-16.0); Immature Granulocytes Abs Auto 0.01 10^3/uL (0.00-0.03); Immature Granulocytes Pct Auto 0.2 % (0.0-0.5); Lymphocytes Absolute Auto 2.1 10^3/uL (1.2-3.8); Lymphocytes Percent Auto 32.6 % (20.5-60.0); Mean Corpuscular HGB Conc 34.2 g/dL (29.9-35.2); Mean Corpuscular Hemoglobin 29.7 pg (26.7-34.0); Mean Corpuscular Volume 86.7 fL (81.0-99.0); Mean Platelet Volume 9.6 fL (9.5-13.5); Monocytes Absolute Auto 0.5 10^3/uL (0.3-0.8); Monocytes Percent Auto 8.3 % (1.7-12.0); Neutrophils Absolute Auto 3.7 10^3/uL (1.4-6.5); Neutrophils Percent Auto 56.6 % (43.0-75.0); Platelet Count 338 10^3/uL (150-450); Red Blood Count 4.82 10^6/uL (4.20-5.40); Red Cell Distribution Width 12.6 % (11.0-15.0); White Blood Count 6.5 10^3/uL (4.0-11.0)
[2023-11-26 16:40] LABS: Anion Gap 17.3; BUN Creatinine Ratio 11.4; Calcium 10.2 mg/dL (8.5-10.1); Carbon Dioxide 22.1 mmol/L (21.0-32.0); Chloride 102 mmol/L (98-107); Estimated GFR (African America >60 (>=60); Estimated GFR (Non-African Ame 50 (>=60); Glucose 94 mg/dL (74-106); Potassium 3.4 mmol/L (3.5-5.1); Sodium 138 mmol/L (136-145)
== END 2023-11-26 17:26 | disposition home or self-care (01) ==
PROVIDERS: Emergency Provider Emergency Medicine
DX: R51.9 Headache, unspecified (principal); Z87.891 Personal history of nicotine dependence; Z79.899 Other long term (current) drug therapy
CPT/HCPCS: 36415; 80048; 85025; 93005; 96374; 96375; 99285

== ENCOUNTER 2024-02-11 19:31 | Emergency (ER) | payer MEDICARE, SELFPAY ==
[2024-02-11 19:35] VITALS: BP 181/88; PULSE 86; TEMP 36.9; O2SAT 98; BMI 40.0
--- NOTE | 2024-02-11 19:44 | ED.ALLEREA1 ---
HPI - Allergic Reaction General Chief complaint: Allergic Reaction Stated complaint: Allergic Reaction Time Seen by Provider: 02/11/24 19:36 Source: patient Mode of arrival: walk-in History of Present Illness HPI narrative: patient states she was placed on Keflex last weekend and developed a rash. started taking Hydroxyzine and the rash cleared up. started on bactrim ds a couple of days ago and now has a gen. mild pruritic rash again. No throat swelling, cough or shortness of breath. Presents because of the rash. today she also has diarrhea. No abdominal pain Related Data Home Medications ?Medication ?Instructions ?Recorded ?Confirmed albuterol sulfate 90 mcg/actuation inhalation 01/22/23 aerosol inhaler amitriptyline 100 mg tablet mg 01/22/23 amlodipine 2.5 mg tablet mg 01/22/23 cyclobenzaprine 10 mg tablet mg 01/22/23 dronabinol 10 mg capsule mg 01/22/23 febuxostat 40 mg tablet mg 01/22/23 gabapentin 300 mg capsule mg 01/22/23 guanfacine 2 mg tablet,extended mg PO 01/22/23 release 24 hr ipratropium 0.5 mg-albuterol 3 mg ml inhalation 01/22/23 (2.5 mg base)/3 mL nebulization soln metoprolol succinate 25 mg mg PO 01/22/23 tablet,extended release 24 hr montelukast 10 mg tablet mg 01/22/23 ondansetron 8 mg disintegrating mg 01/22/23 tablet pantoprazole 40 mg tablet,delayed mg PO 01/22/23 release promethazine 25 mg tablet mg 01/22/23 spironolactone 50 mg tablet mg 01/22/23 theophylline 300 mg mg PO 01/22/23 tablet,extended release,12 hr Previous Rx's ?Medication ?Instructions ?Recorded cephalexin 500 mg capsule 500 mg PO QID 10 days #40 caps 04/25/23 fluconazole 150 mg tablet 150 mg PO DAILY 1 dose #1 tab 04/25/23 (Diflucan) sulfamethoxazole 800 1 tab PO BID 10 days #20 tabs 04/25/23 mg-trimethoprim 160 mg tablet (Bactrim DS) Allergies Allergy/AdvReac Type Severity Reaction Status Date / Time latex Allergy Severe Hives Verified 02/11/24 20:02 NSAIDS (Non-Steroidal Allergy Mild Vomiting Verified 02/11/24 20:02 Anti-Inflamma prednisone Allergy Mild Hives Verified 02/11/24 20:02 azithromycin Allergy Hives Verified 02/11/24 20:02 ceftriaxone [From Rocephin] Allergy Vomiting Verified 02/11/24 20:02 codeine Allergy Hives Verified 02/11/24 20:02 fluticasone Allergy Hives Verified 02/11/24 20:02 [From Advair Diskus] heparin Allergy Hives Verified 02/11/24 20:02 medroxyprogesterone Allergy Hives Verified 02/11/24 20:02 [From Depo-Provera] morphine Allergy Hives Verified 02/11/24 20:02 nalbuphine [From Nubain] Allergy Hives Verified 02/11/24 20:02 Neuromuscular Blockers, Allergy Hives Verified 02/11/24 20:02 Steroidal salmeterol Allergy Swelling Verified 02/11/24 20:02 [From Advair Diskus] of Lip/Tongue/Throat tizanidine [From Zanaflex] Allergy Cramping Verified 02/11/24 20:02 of the Muscles [id number] Antimigraine Allergy Chest pain Verified 02/11/24 20:02 Agents warfarin [From Coumadin] Allergy Hives Verified 02/11/24 20:02 TORADOL Allergy Hives Uncoded 02/11/24 20:02 Review of Systems ROS Status of ROS 10 or more systems reviewed and unremarkable except as noted in history and below [facility] Social History Smoking status: Former smoker Exam Constitutional Vital Signs, click to edit/add: Last Vital Signs Temp 98.5 F 02/11/24 19:35 Pulse 86 02/11/24 19:35 Resp 16 02/11/24 19:35 BP 181/88 H 02/11/24 19:35 Pulse Ox 98 02/11/24 19:35 O2 Del Method Room Air 02/11/24 19:35 Common normals: no apparent distress, oriented x3, no limitations, healthy appearing, alert and well nourished [facility] Common normals: normocephalic and head/scalp atraumatic Respiratory Common normals: normal respiratory effort, no retractions, no use of accessory muscles and clear to auscultation bilaterally Cardio Common normals: regular rate, regular rhythm, S1 normal heart sound and S2 normal heart sound Extremity Other: diffuse sparse erythematous macula lesion on her extremities Neuro Common normals: oriented x3, CN's II-XII intact bilaterally, moves all extremities, no focal motor deficits and no sensory deficits noted Psych Appearance: grossly normal Course Vital Signs Vital signs: Vital Signs Temperature 98.5 F 02/11/24 19:35 Pulse Rate 86 02/11/24 19:35 Respiratory Rate 16 02/11/24 19:35 Blood Pressure 181/88 H 02/11/24 19:35 Pulse Oximetry 98 02/11/24 19:35 Oxygen Delivery Method Room Air 02/11/24 19:35 Temperature 98.5 F 02/11/24 19:35 Pulse Rate 86 02/11/24 19:35 Respiratory Rate 16 02/11/24 19:35 Blood Pressure 181/88 H 02/11/24 19:35 Pulse Oximetry 98 02/11/24 19:35 Oxygen Delivery Method Room Air 02/11/24 19:35 MDM - Allergic Reaction MDM Narrative Medical decision making narrative: patient presents complaining of an allergic reaction to 2 different antibiotics(Keflex and Bactrim). Both causing a rash. has a few sparse lesions on her extremities. Throat appears normal. She states it feels like her lips are swelling but I do not see any evidence of lip swelling. She was treated with Benadryl and pepcid as she refuses any form of steroid stating she had had past allergic reactions. patient re examined several times and no evidence of lip swelling. States she is starting to feel funny . Admits she may be anxious. So far not able to give stool sample. Ativan ordered to help with anxiety patient is now relaxed. Still no evidence of swelling of her lip or elsewhere discharged home and advised to use Benadryl and pepcid. Given prescription for Adut Epi Pen Discharge Plan Discharge Stand Alone Forms: Portal Instructions Chief Complaint: Allergic Reaction Clinical Impression: Allergic reaction, Diarrhea Patient Disposition: Home, Self-Care Prescriptions / Home Meds: No Action sulfamethoxazole-trimethoprim [Bactrim DS] 800-160 mg tablet 1 tab PO BID 10 Days Qty: 20 0RF cephalexin 500 mg capsule 500 mg PO QID 10 Days Qty: 40 0RF fluconazole [Diflucan] 150 mg tablet 150 mg PO DAILY Qty: 1 0RF Rx Instructions: administer on day 1 of therapy cyclobenzaprine 10 mg tablet ipratropium-albuterol 0.5 mg-3 mg(2.5 mg base)/3 mL solution for nebulization INHALATION amlodipine 2.5 mg tablet ondansetron 8 mg tablet,disintegrating theophylline 300 mg tablet extended release 12 hr PO pantoprazole 40 mg tablet,delayed release (DR/EC) PO promethazine 25 mg tablet gabapentin 300 mg capsule montelukast 10 mg tablet dronabinol 10 mg capsule metoprolol succinate 25 mg tablet extended release 24 hr PO albuterol sulfate 90 mcg/actuation HFA aerosol inhaler INHALATION amitriptyline 100 mg tablet spironolactone 50 mg tablet febuxostat 40 mg tablet guanfacine 2 mg tablet extended release 24 hr PO Print Language: Maori Instructions: Acute Diarrhea (ED), Antibiotic Medication Allergy (ED) Additional Instructions: use benadryl 50mg 3 times a day for next 3-4 days and pepcid 40 mg daily for next week. follow up with your doctor Friday or early next week return stool sample to lab Referrals: [facility] [Primary Care Provider] - 1 week
[2024-02-11] MEDS: FAMOTIDINE 20 MG TABLET 40 MG PO (19:55)
[2024-02-11] MEDS: DIPHENHYDRAMINE HCL 25 MG CAPSULE 50 MG PO (20:12)
[2024-02-11] MEDS: LORAZEPAM 1 MG TABLET PO (21:39)
== END 2024-02-11 22:28 | disposition home or self-care (01) ==
PROVIDERS: Emergency Provider Internal Medicine
DX: R19.7 Diarrhea, unspecified (principal); L27.0 Generalized skin eruption due to drugs and medicaments taken internally; T36.95XA Adverse effect of unspecified systemic antibiotic, initial encounter; Z87.891 Personal history of nicotine dependence
CPT/HCPCS: 83631; 87493; 87507; 99284

== ENCOUNTER 2024-05-03 15:49 | Emergency (ER) | payer MEDICARE, SELFPAY ==
[2024-05-03 16:03] VITALS: BP 138/85; PULSE 77; TEMP 36.8; O2SAT 98; BMI 40.6
[2024-05-03] MEDS: 0.9 % SODIUM CHLORIDE 1,000 ML 500 ML IV (16:31)
[2024-05-03] MEDS: DIPHENHYDRAMINE HCL 50 MG/ML VIAL IV (16:32)
[2024-05-03] MEDS: PROCHLORPERAZINE 10 MG/2 ML VIAL IV (16:32)
--- NOTE | 2024-05-03 16:48 | ED.GENADUL1 ---
HPI HPI - General Adult General Chief complaint: Headache Stated complaint: Headache, Nausea Time Seen by Provider: 05/03/24 16:15 Source: patient Mode of arrival: walk-in Limitations: no limitations History of Present Illness HPI narrative: The patient is coming to the ER with a history of migraine she mentioned that this episode of migraine started almost 3 days ago, associated with photosensitivity and nausea she mentioned that did not respond to her Phenergan at home patient have a very long list of allergies , Related Data Home Medications ?Medication ?Instructions ?Recorded ?Confirmed albuterol sulfate 90 mcg/actuation inhalation 01/22/23 aerosol inhaler amitriptyline 100 mg tablet mg 01/22/23 amlodipine 2.5 mg tablet mg 01/22/23 cyclobenzaprine 10 mg tablet mg 01/22/23 dronabinol 10 mg capsule mg 01/22/23 febuxostat 40 mg tablet mg 01/22/23 gabapentin 300 mg capsule mg 01/22/23 guanfacine 2 mg tablet,extended mg PO 01/22/23 release 24 hr ipratropium 0.5 mg-albuterol 3 mg ml inhalation 01/22/23 (2.5 mg base)/3 mL nebulization soln metoprolol succinate 25 mg mg PO 01/22/23 tablet,extended release 24 hr montelukast 10 mg tablet mg 01/22/23 ondansetron 8 mg disintegrating mg 01/22/23 tablet pantoprazole 40 mg tablet,delayed mg PO 01/22/23 release promethazine 25 mg tablet mg 01/22/23 spironolactone 50 mg tablet mg 01/22/23 theophylline 300 mg mg PO 01/22/23 tablet,extended release,12 hr Previous Rx's ?Medication ?Instructions ?Recorded cephalexin 500 mg capsule 500 mg PO QID 10 days #40 caps 04/25/23 fluconazole 150 mg tablet 150 mg PO DAILY 1 dose #1 tab 04/25/23 (Diflucan) sulfamethoxazole 800 1 tab PO BID 10 days #20 tabs 04/25/23 mg-trimethoprim 160 mg tablet (Bactrim DS) Allergies Allergy/AdvReac Type Severity Reaction Status Date / Time latex Allergy Severe Hives Verified 05/03/24 16:02 NSAIDS (Non-Steroidal Allergy Mild Vomiting Verified 05/03/24 16:02 Anti-Inflamma prednisone Allergy Mild Hives Verified 05/03/24 16:02 azithromycin Allergy Hives Verified 05/03/24 16:02 ceftriaxone [From Rocephin] Allergy Vomiting Verified 05/03/24 16:02 codeine Allergy Hives Verified 05/03/24 16:02 fluticasone Allergy Hives Verified 05/03/24 16:02 [From Advair Diskus] heparin Allergy Hives Verified 05/03/24 16:02 ketorolac [From Toradol] Allergy Hives Verified 05/03/24 16:03 medroxyprogesterone Allergy Hives Verified 05/03/24 16:02 [From Depo-Provera] morphine Allergy Hives Verified 05/03/24 16:02 nalbuphine [From Nubain] Allergy Hives Verified 05/03/24 16:02 Neuromuscular Blockers, Allergy Hives Verified 05/03/24 16:02 Steroidal salmeterol Allergy Swelling Verified 05/03/24 16:02 [From Advair Diskus] of Lip/Tongue/Throat tizanidine [From Zanaflex] Allergy Cramping Verified 05/03/24 16:02 of the Muscles [id number] Antimigraine Allergy Chest pain Verified 05/03/24 16:02 Agents warfarin [From Coumadin] Allergy Hives Verified 05/03/24 16:02 Opioid HPI Opioid Management Most Recent Opioid Data: Last Pain Scale 8 11/04/23 17:24 Review of Systems ROS Status of ROS 10 or more systems reviewed and unremarkable except as noted in history and below PFSH PFSH Social History Smoking status: Former smoker Little interest or pleasure in doing things: not at all Feeling down, depressed, or hopeless: not at all Exam Narrative Exam Narrative: Nurses notes and vital signs reviewed and patient is not hypoxic. General: Well-appearing and in no apparent distress. Skin: Warm, dry, no pallor noted. No rash. Head: Normocephalic, atraumatic. Neck: Supple, non-tender. Eye: Pupils are equal, round and EOMI. No scleral icterus. Ears, Nose, Mouth, and Throat: TM are clear, no nasal mucosal hypertrophy. Oral mucosa is moist, no posterior oropharynx erythema, uvula is mid-line Cardiovascular: Regular Rate and Rhythm without murmur, gallop or rub. Respiratory: No accessory muscle use or respiratory distress. Lungs are clear to auscultation, no wheezing, rales or rhonchi Chest Wall: no tenderness Back: No midline thoracic or lumbar vertebral tenderness. No CVA tenderness Musculoskeletal: normal ROM, no calf or popliteal tenderness, no lower extremity edema/swelling GI: Abdomen is soft, non-distended. Normal bowel sounds. No masses appreciated. No tenderness to palpation. No rebound, guarding, or rigidity noted. Neurological: A&O x4. No cranial nerve dysfunction observed. No truncal ataxia. Moves all extremities. Sensation intact. Psychiatric: Cooperative and interactive. Normal mood and affect. Constitutional Vital Signs, click to edit/add: Last Vital Signs Temp 98.3 F 05/03/24 16:03 Pulse 77 05/03/24 16:03 Resp 18 05/03/24 16:03 BP 138/85 05/03/24 16:03 Pulse Ox 98 05/03/24 16:03 O2 Del Method Room Air 05/03/24 16:03 Course Vital Signs Vital signs: Vital Signs Temperature 98.3 F 05/03/24 16:03 Pulse Rate 77 05/03/24 16:03 Respiratory Rate 18 05/03/24 16:03 Blood Pressure 138/85 05/03/24 16:03 Pulse Oximetry 98 05/03/24 16:03 Oxygen Delivery Method Room Air 05/03/24 16:03 Temperature 98.3 F 05/03/24 16:03 Pulse Rate 77 05/03/24 16:03 Respiratory Rate 18 05/03/24 16:03 Blood Pressure 138/85 05/03/24 16:03 Pulse Oximetry 98 05/03/24 16:03 Oxygen Delivery Method Room Air 05/03/24 16:03 Medical Decision Making [facility] Narrative Medical decision making narrative: The patient presenting with a typical migraine episode she was treated in the ER with Compazine and Benadryl after which she was feeling much better as well as mild hydration The patient is to follow up with primary care physician in next 2-3 days or to return to the emergency department should any of the signs or symptoms worsen or new symptoms develop. The patient agrees with the following Diagnosis and Treatment plan and the patient will be discharged home. Discharge Plan Discharge Chief Complaint: Headache Clinical Impression: Migraine Patient Disposition: Home, Self-Care Time of Disposition Decision: 17:03 Condition: Good Prescriptions / Home Meds: No Action sulfamethoxazole-trimethoprim [Bactrim DS] 800-160 mg tablet 1 tab PO BID 10 Days Qty: 20 0RF cephalexin 500 mg capsule 500 mg PO QID 10 Days Qty: 40 0RF fluconazole [Diflucan] 150 mg tablet 150 mg PO DAILY Qty: 1 0RF Rx Instructions: administer on day 1 of therapy cyclobenzaprine 10 mg tablet ipratropium-albuterol 0.5 mg-3 mg(2.5 mg base)/3 mL solution for nebulization INHALATION amlodipine 2.5 mg tablet ondansetron 8 mg tablet,disintegrating theophylline 300 mg tablet extended release 12 hr PO pantoprazole 40 mg tablet,delayed release (DR/EC) PO promethazine 25 mg tablet gabapentin 300 mg capsule montelukast 10 mg tablet dronabinol 10 mg capsule metoprolol succinate 25 mg tablet extended release 24 hr PO albuterol sulfate 90 mcg/actuation HFA aerosol inhaler INHALATION amitriptyline 100 mg tablet spironolactone 50 mg tablet febuxostat 40 mg tablet guanfacine 2 mg tablet extended release 24 hr PO Print Language: Mauritanian Instructions: Migraine Headache (ED) Referrals: [facility] [Primary Care Provider] - 1 week
== END 2024-05-03 17:49 | disposition home or self-care (01) ==
PROVIDERS: Emergency Provider Emergency Medicine
DX: G43.909 Migraine, unspecified, not intractable, without status migrainosus (principal); Z87.891 Personal history of nicotine dependence
CPT/HCPCS: 99283; J0780; J1200

== ENCOUNTER 2024-05-06 14:34 | Emergency (ER) | payer MEDICARE, SELFPAY ==
[2024-05-06] VITALS (14 sets, daily range): BP systolic 126–143; BP diastolic 75–78; PULSE 64–86; TEMP 36.9; O2SAT 95–100; BMI 40.0
--- NOTE | 2024-05-06 14:47 | XR_ITS ---
The [address] [address] Patient Name: DIOGENES JAMIL MRN: [id number] date: 1970 Sex: F Assigned Patient Location: ER Current Patient Location: ER Accession/Order Number: [id number] Exam Date: 05/06/2024 15:08 Report Date: 05/06/2024 15:27 At the request of: RAFAEL ESTES Procedure: XR chest 1V EXAMINATION: XR chest 1V HISTORY: Shortness of breath COMPARISON: XR chest 01/14/2023 FINDINGS: LUNGS: No significant pulmonary parenchymal abnormalities. VASCULATURE: No increased pulmonary vasculature. PLEURA: No pneumothorax, effusion, or pleural thickening. CARDIAC: No cardiomegaly or cardiac silhouette abnormality. MEDIASTINUM: No visible mass or adenopathy. BONES: No fracture or visible bone lesion. OTHER: Negative. XR/XR chest 1V IMPRESSION: 1. No convincing acute cardiopulmonary process. Electronically authenticated by: KYRA URBANO Date: 05/06/2024 15:27
--- NOTE | 2024-05-06 14:47 | ECG_ITS ---
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
--- NOTE | 2024-05-06 14:49 | ED.SOB1 ---
HPI - SOB/Dyspnea General Chief Complaint: Shortness of Breath/Dyspnea Stated Complaint: SOB Time Seen by Provider: 05/06/24 14:35 Source: patient Mode of arrival: Wheelchair History of Present Illness HPI Narrative: Patient is a 53-year-old female with a history of COPD who presents to the emergency department for the evaluation of shortness of breath. She states that she has had intermittent shortness of breath for the last several months but in the last 2 to 3 weeks it has been more significant. She is audibly wheezing. She states she has not able to take steroids because of an allergic reaction. She states she just came from her rheumatology appointment for rheumatoid arthritis. She reports tightness in the chest. No objective fevers. No vomiting or diarrhea. She does feel she has been swollen. She has been using nebulizers at home without improvement. Related Data Home Medications ?Medication ?Instructions ?Recorded ?Confirmed albuterol sulfate 90 mcg/actuation inhalation 01/22/23 aerosol inhaler amitriptyline 100 mg tablet mg 01/22/23 amlodipine 2.5 mg tablet mg 01/22/23 cyclobenzaprine 10 mg tablet mg 01/22/23 dronabinol 10 mg capsule mg 01/22/23 febuxostat 40 mg tablet mg 01/22/23 gabapentin 300 mg capsule mg 01/22/23 guanfacine 2 mg tablet,extended mg PO 01/22/23 release 24 hr ipratropium 0.5 mg-albuterol 3 mg ml inhalation 01/22/23 (2.5 mg base)/3 mL nebulization soln metoprolol succinate 25 mg mg PO 01/22/23 tablet,extended release 24 hr montelukast 10 mg tablet mg 01/22/23 ondansetron 8 mg disintegrating mg 01/22/23 tablet pantoprazole 40 mg tablet,delayed mg PO 01/22/23 release promethazine 25 mg tablet mg 01/22/23 spironolactone 50 mg tablet mg 01/22/23 theophylline 300 mg mg PO 01/22/23 tablet,extended release,12 hr Previous Rx's ?Medication ?Instructions ?Recorded cephalexin 500 mg capsule 500 mg PO QID 10 days #40 caps 04/25/23 fluconazole 150 mg tablet 150 mg PO DAILY 1 dose #1 tab 04/25/23 (Diflucan) sulfamethoxazole 800 1 tab PO BID 10 days #20 tabs 04/25/23 mg-trimethoprim 160 mg tablet (Bactrim DS) Allergies Allergy/AdvReac Type Severity Reaction Status Date / Time latex Allergy Severe Hives Verified 05/03/24 16:02 NSAIDS (Non-Steroidal Allergy Mild Vomiting Verified 05/03/24 16:02 Anti-Inflamma prednisone Allergy Mild Hives Verified 05/03/24 16:02 azithromycin Allergy Hives Verified 05/03/24 16:02 ceftriaxone [From Rocephin] Allergy Vomiting Verified 05/03/24 16:02 codeine Allergy Hives Verified 05/03/24 16:02 fluticasone Allergy Hives Verified 05/03/24 16:02 [From Advair Diskus] heparin Allergy Hives Verified 05/03/24 16:02 ketorolac [From Toradol] Allergy Hives Verified 05/03/24 16:03 medroxyprogesterone Allergy Hives Verified 05/03/24 16:02 [From Depo-Provera] morphine Allergy Hives Verified 05/03/24 16:02 nalbuphine [From Nubain] Allergy Hives Verified 05/03/24 16:02 Neuromuscular Blockers, Allergy Hives Verified 05/03/24 16:02 Steroidal salmeterol Allergy Swelling Verified 05/03/24 16:02 [From Advair Diskus] of Lip/Tongue/Throat tizanidine [From Zanaflex] Allergy Cramping Verified 05/03/24 16:02 of the Muscles [id number] Antimigraine Allergy Chest pain Verified 05/03/24 16:02 Agents warfarin [From Coumadin] Allergy Hives Verified 05/03/24 16:02 Review of Systems ROS Constitutional Denies: fever or chills Ears, nose, mouth, and throat Denies: throat pain or nasal congestion Cardiovascular Reports: swelling of feet/ankles; Denies: chest pain Respiratory Reports: shortness of breath, cough and wheezing; Denies: coughing up blood Gastrointestinal Denies: nausea or vomiting Musculoskeletal Denies: back pain or neck pain Integumentary/Breast Denies: rash Hematologic/Lymphatic Denies: easy bruising or easy bleeding PFSH PFSH Social History Smoking status: Former smoker Little interest or pleasure in doing things: not at all Feeling down, depressed, or hopeless: not at all Exam Narrative Exam Narrative: Gen.: Awake, alert, in no distress Head: Normocephalic, atraumatic ENT: Moist mucous membranes Respiratory: No respiratory distress, inspiratory and expiratory wheezing Cardio: Regular rate and rhythm Gastrointestinal: Abdomen is soft, nondistended and nontender to palpation Extremities: Moves extremities equally, no pedal edema Psych: Normal mood and affect Neuro: No focal neuro deficit Skin: Warm, dry, intact Constitutional Vital Signs, click to edit/add: Last Vital Signs Temp 98.4 F 05/06/24 14:40 Pulse 71 05/06/24 15:18 Resp 26 H 05/06/24 14:40 BP 143/78 H 05/06/24 14:40 Pulse Ox 97 05/06/24 15:18 O2 Del Method Room Air 05/06/24 15:18 Course Vital Signs Vital signs: Vital Signs Temperature 98.4 F 05/06/24 14:40 Pulse Rate 86 05/06/24 14:40 Respiratory Rate 26 H 05/06/24 14:40 Blood Pressure 143/78 H 05/06/24 14:40 Pulse Oximetry 98 05/06/24 14:40 Oxygen Delivery Method Room Air 05/06/24 14:40 Temperature 98.4 F 05/06/24 14:40 Pulse Rate 71 05/06/24 15:18 Respiratory Rate 26 H 05/06/24 14:40 Blood Pressure 143/78 H 05/06/24 14:40 Pulse Oximetry 97 05/06/24 15:18 Oxygen Delivery Method Room Air 05/06/24 15:18 MDM - SOB/Dyspnea MDM Narrative Medical decision making narrative: Patient treated with albuterol, magnesium sulfate given in the ER she is unable to tolerate steroids or ipratropium. Her lab studies are unremarkable and chest x-ray shows no evidence of acute cardiopulmonary changes. No EKG changes. Patient symptoms have been ongoing for several weeks. 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 She was encouraged to follow-up with her senior process engineer and return to the ER if symptoms change or worsen. Patient in no distress on reevaluation by attending physician prior to discharge. SHARED APC VISIT, PHYSICIAN ATTESTATION: [id number] I performed a substantive part of the MDM during the patient?s E/M visit. I personally evaluated and examined the patient. I personally made or approved the documented management plan and acknowledge its risk of complications. . Medical Records Attestation: I reviewed the patient's medical records. Lab Data Attestation: I reviewed the patient's lab results. Labs: Lab Results 05/06/24 Range/Units 14:55 WBC 7.6 (4.0-11.0) 10^3/uL RBC 4.42 (4.20-5.40) 10^6/uL Hgb 13.2 (12.0-16.0) g/dL Hct 38.4 (36.0-48.0) % MCV 86.9 (81.0-99.0) fL MCH 29.9 (26.7-34.0) pg MCHC 34.4 (29.9-35.2) g/dL RDW 13.5 (11.0-15.0) % Plt Count 293 (150-450) 10^3/uL MPV 10.0 (9.5-13.5) fL Neut % (Auto) 54.7 (43.0-75.0) % Lymph % (Auto) 31.4 (20.5-60.0) % Starr % (Auto) 8.8 (1.7-12.0) % Eos % (Auto) 3.8 (0.9-7.0) % Baso % (Auto) 0.9 (0.2-2.0) % Neut # (Auto) 4.2 (1.4-6.5) 10^3/uL Lymph # (Auto) 2.4 (1.2-3.8) 10^3/uL Starr # (Auto) 0.7 (0.3-0.8) 10^3/uL Eos # (Auto) 0.3 (0.0-0.7) 10^3/uL Baso # (Auto) 0.1 (0.0-0.1) 10^3/uL Abs Immat Gran (auto) 0.03 (0.00-0.03) 10^3/uL Imm/Tot Granulo (auto) 0.4 (0.0-0.5) % PT 10.9 (9.0-11.6) sec INR 1.03 APTT 26.6 (22.3-36.2) sec VBG pH 7.440 H (7.330-7.430) VBG pCO2 32.8 L (40.0-52.0) mmHg Sodium 141 (136-145) mmol/L Potassium 3.7 (3.5-5.1) mmol/L Chloride 104 (98-107) mmol/L Carbon Dioxide 23.1 (21.0-32.0) mmol/L Anion Gap 17.6 BUN 10.0 (7.0-18.0) mg/dL Creatinine 1.07 H (0.55-1.02) mg/dL Est GFR ( Amer) >60 (>=60) Est GFR (Non-Af Amer) 54 L (>=60) BUN/Creatinine Ratio 9.3 Glucose 98 (74-106) mg/dL Calcium 10.2 H (8.5-10.1) mg/dL Total Bilirubin 0.4 (0.2-1.0) mg/dL AST 41 H (15-37) U/L ALT 40 (14-59) U/L Alkaline Phosphatase 91 (46-116) U/L Troponin I High Sens 5.5 (4.0-51.3) pg/mL NT-Pro-B Natriuret Pep 20.0 (<=900.0) pg/mL Total Protein 8.0 (6.4-8.2) g/dL Albumin 4.1 (3.4-5.0) g/dL Globulin 3.9 g/dL Albumin/Globulin Ratio 1.1 Imaging Data Chest x-ray: Attestation: I have reviewed the pertinent imaging results. Radiologist's impression: ITS Impressions Chest X-Ray 05/06/24 14:47 IMPRESSION: 1. No convincing acute cardiopulmonary process. Electronically authenticated by: KYRA URBANO Date: 05/06/2024 15:27 ECG Data Attestation: I personally reviewed and interpreted this ECG as follows: (Normal sinus rhythm at a rate of 75, no acute ST elevation or ectopy. EKG reviewed by attending physician) Discharge Plan Discharge Chief Complaint: Shortness of Breath/Dyspnea Clinical Impression: Shortness of breath Patient Disposition: Home, Self-Care Time of Disposition Decision: 15:52 Condition: Good Prescriptions / Home Meds: No Action sulfamethoxazole-trimethoprim [Bactrim DS] 800-160 mg tablet 1 tab PO BID 10 Days Qty: 20 0RF cephalexin 500 mg capsule 500 mg PO QID 10 Days Qty: 40 0RF fluconazole [Diflucan] 150 mg tablet 150 mg PO DAILY Qty: 1 0RF Rx Instructions: administer on day 1 of therapy cyclobenzaprine 10 mg tablet ipratropium-albuterol 0.5 mg-3 mg(2.5 mg base)/3 mL solution for nebulization INHALATION amlodipine 2.5 mg tablet ondansetron 8 mg tablet,disintegrating theophylline 300 mg tablet extended release 12 hr PO pantoprazole 40 mg tablet,delayed release (DR/EC) PO promethazine 25 mg tablet gabapentin 300 mg capsule montelukast 10 mg tablet dronabinol 10 mg capsule metoprolol succinate 25 mg tablet extended release 24 hr PO albuterol sulfate 90 mcg/actuation HFA aerosol inhaler INHALATION amitriptyline 100 mg tablet spironolactone 50 mg tablet febuxostat 40 mg tablet guanfacine 2 mg tablet extended release 24 hr PO Print Language: Australian Instructions: Shortness of Breath (ED) Referrals: [facility] [Primary Care Provider] - 1 week
[2024-05-06 15:03] LABS: Basophils Absolute Auto 0.1 10^3/uL (0.0-0.1); Basophils Percent Auto 0.9 % (0.2-2.0); Eosinophils Absolute Auto 0.3 10^3/uL (0.0-0.7); Eosinophils Percent Auto 3.8 % (0.9-7.0); Hematocrit 38.4 % (36.0-48.0); Hemoglobin 13.2 g/dL (12.0-16.0); Immature Granulocytes Abs Auto 0.03 10^3/uL (0.00-0.03); Immature Granulocytes Pct Auto 0.4 % (0.0-0.5); Lymphocytes Absolute Auto 2.4 10^3/uL (1.2-3.8); Lymphocytes Percent Auto 31.4 % (20.5-60.0); Mean Corpuscular HGB Conc 34.4 g/dL (29.9-35.2); Mean Corpuscular Hemoglobin 29.9 pg (26.7-34.0); Mean Corpuscular Volume 86.9 fL (81.0-99.0); Monocytes Absolute Auto 0.7 10^3/uL (0.3-0.8); Monocytes Percent Auto 8.8 % (1.7-12.0); Neutrophils Absolute Auto 4.2 10^3/uL (1.4-6.5); Neutrophils Percent Auto 54.7 % (43.0-75.0); Platelet Count 293 10^3/uL (150-450); Red Blood Count 4.42 10^6/uL (4.20-5.40); Red Cell Distribution Width 13.5 % (11.0-15.0); White Blood Count 7.6 10^3/uL (4.0-11.0)
[2024-05-06 15:04] LABS: PCO2 VBG 32.8 mmHg (40.0-52.0)
[2024-05-06] MEDS: MAGNESIUM SULFATE IN WATER 2 GM/50 ML PREMIX IV (15:06)
[2024-05-06 15:20] LABS: INR 1.03; Partial Thromboplastin Time 26.6 sec (22.3-36.2); Prothrombin Time 10.9 sec (9.0-11.6)
[2024-05-06] MEDS: IPRATROPIUM/ALBUTEROL SULFATE 3 ML AMPUL.NEB IH (15:20)
[2024-05-06 15:39] LABS: Alanine Aminotransferase 40 U/L (14-59); Albumin Globulin Ratio 1.1; Albumin Level 4.1 g/dL (3.4-5.0); Alkaline Phosphatase 91 U/L (46-116); Anion Gap 17.6; Aspartate Amino Transferase 41 U/L (15-37); BUN Creatinine Ratio 9.3; Bilirubin Total 0.4 mg/dL (0.2-1.0); Calcium 10.2 mg/dL (8.5-10.1); Carbon Dioxide 23.1 mmol/L (21.0-32.0); Chloride 104 mmol/L (98-107); Estimated GFR (African America >60 (>=60); Estimated GFR (Non-African Ame 54 (>=60); Globulin 3.9 g/dL; Glucose 98 mg/dL (74-106); Potassium 3.7 mmol/L (3.5-5.1); Sodium 141 mmol/L (136-145); Troponin I High Sensitivity 5.5 pg/mL (4.0-51.3)
== END 2024-05-06 16:03 | disposition home or self-care (01) ==
PROVIDERS: Physician Assistant; Emergency Provider Emergency Medicine
DX: R06.02 Shortness of breath (principal); J44.9 Chronic obstructive pulmonary disease, unspecified; Z87.891 Personal history of nicotine dependence
CPT/HCPCS: 36415; 71045; 80053; 82800; 83880; 84484; 85025; 85610; 85730; 93005; 94640; 96365; 99285; J3475

== ENCOUNTER → 2025-04-05 10:02 | Emergency (ER) | payer MEDICARE, SELFPAY ==
[2025-04-05 10:12] VITALS: BP 144/83; PULSE 78; TEMP 37.1; O2SAT 98; BMI 48.8
--- OUTSIDE RECORDS SUMMARY | 2025-04-05 10:23 | XMS_ITS | Encounter Summary ---
Author Organization [facility] Address [address] [place] [id number] Care Team Providers Care Senior Gis Analyst Name Role Phone RejiEdil Primary Care Provider [phone] Source Comments In the event this information is protected by the Federal Confidentiality of Alcohol and Drug AbusePatient Records regulations: The Federal rules restrict any use of the information to criminally investigate or prosecute any alcohol or drug abuse patient.[facility] Encounter Details Date Type Department Care Team ([facility] Contact Info) Description 11/19/2024 Patient Msg Allergy [facility] [place] [address] Evonne Bowser MD [address] [place] [address] Appointment Request Social History Tobacco Use Types Packs/Day Years Used Date Smoking Tobacco: Former Cigarettes Q uit: 04/01/2007 Passive Smoke Exposure: Past Smokeless Tobacco: Current Alcohol Use Standard Drinks/Week Comments No 0 (1 standard drink = 0.6 oz pur e alcohol) PHQ-2 Answer Date Recorded PHQ-2 score 2 05/05/2022 Area Deprivation Index Answer Date Héctor rded National Score (1-100), lower number is lower ri sk 55 06/24/2024 State Score (1-10), lower number is lower risk 3 06/24/2024 Data from: https://www.neighborhoodatlas.medicine.[facility]/. Last address used for calculation [address] 06/24/2024 Comments No Sex and Gender Information Value Date Recorded Sex Assigned at Female 01/21/2022 11:29 AM EDT Legal Sex Female 8:11 AM EST Gender Identity Female 01/21/2022 11:29 AM EDT Sexual Orientation Straight 01/21/2022 11 :29 AM EDT documented as of this encounter Functional Status * Are you deaf or do you have serious difficulty hearing? Answer Date of Assessment Author No 07/02/2024 11:09 AM Yelena Fang RN * Are you blind or do you have serious difficulty seeing, even when wearing glasses? Answer Date of Assessment Author No 07/02/2024 11:09 AM Yelena Fang RN * Do you have serious difficulty walking or climbing stairs? Answer Date of Assessment Author Yes 07/02/2024 11:09 AM Yelena Fang RN * Do you have difficulty dressing or bathing? Answer Date of Assessment Author No 07/02/2024 11:09 AM Yelena Fang RN * Because of a physical, mental, or emotional condition, do you have difficulty doing errands alone such as visiting a doctor's office or shopping? Answer Date of Assessment Author No 07/02/2024 11:09 AM Yelena Fang RN documented as of this encounter Mental Status * Because of a physical, mental, or emotional condition, do you have serious difficulty concentrating, remembering, or making decisions? Answer Entry Date Author No 07/02/2024 11:09 AM Yelena Fang RN documented in this encounter Plan of Treatment Upcoming Encounters Date Type Department Care Team (Late st Contact Info) Description 04/12/2025 9:00 AM EDT Office Visit Gastroenterology [address] [address] Vicki Barajas APRN.SIDING APPLICATOR [address] [place] [address] Dysphagia, unspecified type [R13.10] 04/18/2025 9:15 AM EDT Appointment Radiology [address] [place] [address] Interstitial pulmonary disease (HCC) [J84.9] 04/19/2025 9:00 AM EDT Office Visit Urology [address] [address] Diane Sanchez, CRM SYSTEM ADMINISTRATOR.SIDING APPLICATOR [address] [place] [address] kidney stones ( RS FROM 8-5) AWARE MAIN 04/20/2025 1:00 PM EDT Office Visit Otolaryngology [address] [address] Aldair Germain, PhD, [facility] [address] [place] [address] vocal cord dysfunction 04/21/2025 8:25 AM EDT Office Visit Otolaryngology [address] [address] Ruddy Palacios MD [address] [place] [address] Return in about 6 weeks (around 01/03/2025). 04/27/2025 10:00 AM EDT Procedure Pulmonary Medicine [address] [address] Est pt Asthma per Dr. Sarmiento (60min) 04/27/2025 10:15 AM EDT Procedure Pulmonary Medicine [address] [address] Est pt Asthma per Dr. Sarmiento (60min) 04/27/2025 10:30 AM EDT Procedure Pulmonary Medicine [address] [address] Est pt Asthma per Dr. Sarmiento (60min) 04/27/2025 11:00 AM EDT Office Visit Pulmonary Medicine [address] [address] Austin Sarmiento MD [address] [place], [place] [id number] Est pt Asthma per Dr. Sarmiento (60min) 05/03/2025 11:20 AM EDT Office Visit Otolaryngology [address] [place] [address] Evelina Gomes PA-C [address] [place] [address] wax cleaning 05/18/2025 3:00 PM EDT Office Visit Neurology [address] [place] [address] [place] [address] [place] [address] Numbness 07/08/2025 8:45 PM EST Office Visit Neurology [address] [place] [address] Main, Psg Neur [address] [place] [address] NICOLE (obstructive sleep apnea) [G47.33] 2025 10:20 AM EST Office Visit Gastroenterology [address] [place] [address] Lennie Clark MD, PhD [address] [place], [place] [phone] GASTRIC ISSUES 09/09/2025 9:40 AM EST Office Visit Gastroenterology [address] [place] [address] Roland Reyes Jr., DO [address] [place] [id number] Dyspepsia documented as of this encounter Visit Diagnoses Not on filedocumented in this encounter Care Teams Senior Gis Analyst Relationship Specialty Start Date End Date Edil Mendoza DO [facility] [place] [address] PCP - General Family Medicine 06/23/24 documented as of this encounter
--- OUTSIDE RECORDS SUMMARY | 2025-04-05 10:23 | XMS_ITS | Encounter Summary ---
Author Organization [facility] Address [address] [place] [address] Care Team Providers Care Battery Repairer Name Role Phone RejiEdil Primary Care Provider [phone] Source Comments In the event this information is protected by the Federal Confidentiality of Alcohol and Drug AbusePatient Records regulations: The Federal rules restrict any use of the information to criminally investigate or prosecute any alcohol or drug abuse patient.[facility] Reason for Referral * Consult, Test, Treat (Routine) - Authorized Specialty Diagnoses / Procedures Referred By Contac t Referred To Contact Nutrition Diagnoses Fatty liver Procedures MEDICAL NUTRITION ASSMT&IVNTJ INDIV EACH [address] [place] [address] [place] [address] Referral ID Status Reason Start Date Expiration Date Visits Requested Visits Authorized [id number] Authorized PCP Requested Referral 12/08/2024 12/08/2025 1 4 Scheduling Instructions General Nutrition Visit Please select one of the following ways to schedule an Outpatient Nutrition Therapy Appointment with a Registered Dietitian: 1) Stop at the front office java developer. OR 2) Use your self-scheduling ticket in [employer]. OR 3) Call to schedule. Main [facility] ([place]) 8 am to 4 pm: [phone] [place] [facility] [phone] [facility]: [phone] [facility] ([place]): [phone] [facility]: [phone] For Gastrointestinal disorders such as Crohn's/Colitis, Celiac disease, Gastroparesis, Tube feeding, or Liver disease: [phone] option 0 For Sports Nutrition: [phone] [facility] Call Center: [phone] Before your appointment, please check with your insurance for coverage for your diagnosis: We use CPT codes 58407 & 78769 (Medical Nutrition Therapy) If not covered, call [phone] (or [phone]) to find out about cost and ways to pay. Encounter Details Date Type Department Care Team ([facility] st Contact Info) Description 11/22/2024 Patient Msg Gastroenterology [address] [place] [id number] Provider, Ccf results Social History Tobacco Use Types Packs/Day Years [...] is lower risk 3 06/24/2024 Data from: https://www.neighborhoodatlas.medicine.[facility].edu/. Last address used for calculation [address] 06/24/2024 Comments No Sex and Gender Information [...] Yelena Fang RN documented in this encounter Miscellaneous Notes * Telephone Encounter - Yaz Webb RN - 12/08/2024 10:[address] Reyes, are you willing to sign orders for chief internal auditor for low fat diet recommendations? If so, please review and sign/route back for scheduling purposes. Thank you Yaz Webb RN documented in this encounter Plan of Treatment Upcoming Encounters Date Type Department Care Team (Late st Contact Info) Description 04/12/2025 9:00 AM EDT Office Visit Gastroenterology [address] [id number] Vicki Barajas APRN.SHIRT CLOSER [address] [place] [address] Dysphagia, unspecified type [R13.10] 04/18/2025 9:15 AM EDT Appointment Radiology [address] [place] [address] Interstitial pulmonary disease (HCC) [J84.9] 04/19/2025 9:00 AM EDT Office Visit Urology [address] [address] Diane Sanchez, PEELER OPERATOR.SHIRT CLOSER [address] [place] [address] kidney stones ( RS FROM 8-5) AWARE MAIN 04/20/2025 1:00 PM EDT Office Visit Otolaryngology [address] [address] Aldair Germain, PhD, [facility] [address] [place] [address] vocal cord dysfunction 04/21/2025 8:25 AM EDT Office Visit Otolaryngology [address] [address] Ruddy Palacios MD [address] [place], [place] [phone] Return in about 6 weeks (around 01/03/2025). 04/27/2025 10:00 AM EDT Procedure Pulmonary Medicine [address] [address] Est pt Asthma per Dr. Sarmiento (60min) 04/27/2025 10:15 AM EDT Procedure Pulmonary Medicine [address] [address] Est pt Asthma per Dr. Sarmiento (60min) 04/27/2025 10:30 AM EDT Procedure Pulmonary Medicine [address] [address] Est pt Asthma per Dr. Sarmiento (60min) 04/27/2025 11:00 AM EDT Office Visit Pulmonary Medicine [address] [address] Austin Sarmiento MD [address] [place] [address] Est pt Asthma per Dr. Sarmiento (60min) 05/03/2025 11:20 AM EDT Office Visit Otolaryngology [address] [place] [address] Evelina Gomes PA-C [address] [place] [address] wax cleaning 05/18/2025 3:00 PM EDT Office Visit Neurology [address] [place] [address] [place] [address] [place] [address] Numbness 07/08/2025 8:45 PM EST Office Visit Neurology [address] [place] [address] Main, Psg Neur [address] [place] [address] NICOLE (obstructive sleep apnea) [G47.33] 2025 10:20 AM EST Office Visit Gastroenterology [address] [place] [address] Lennie Clark MD, PhD [address] [place], [place] [phone] GASTRIC ISSUES 09/09/2025 9:40 AM EST Office Visit Gastroenterology [address] [place], [place] [phone] Roland Reyes Jr., DO [address] [place] [id number] Dyspepsia Scheduled Referrals Name Type Priority Associated Diagnoses Orde r Schedule CONSULT TO NUTRITION THERAPY Referral Routine Fatty liver 1 Occurrences starting 12/08/2024 until 12/08/2025 documented as of this encounter Visit Diagnoses Diagnosis Fatty liver- Primary Other chronic nonalcoholic liver disease documented in this encounter Care Teams Battery Repairer Relationship Specialty Start Date End Date Edil Mendoza DO [address] [place], [place] [phone] PCP - General Family Medicine 06/23/24 documented as of this encounter
--- OUTSIDE RECORDS SUMMARY | 2025-04-05 10:23 | XMS_ITS | Clinical Summary ---
Author Organization [facility] Address [address] [place] [address] Phone Care Team Providers Care Dust Mop Maker Name Role Phone Unavailable Primary Care Provider Unavailabl e Social History Tobacco Use Types Packs/Day Years Used Date Smoking Tobacco: Never Assessed Comments Unknown Sex and Gender Information Value Date Recorded Sex Assigned at Not on file Legal Sex Female 1:53 PM EDT Gender Identity Not on file Sexual Orientation Not on file Plan of Treatment Health Maintenance Due Date Last Done Comments CT Colonography 1970 Colonoscopy 1970 Colorectal Cancer Screening 1970 FIT-DNA (Cologuard) 1970 FIT 1970 HIV Screening 1970 Lipid Panel 1970 Medicare Annual Wellness Vis it (AWV) 1970 Sigmoidoscopy 1970 MMR Vaccines (1 of 1 - Stand niki series) 1971 Hepatitis C Screening 1988 Hepatitis B Vaccines (1 of 3 - 19+ 3-dose series) 1989 Cervical Cancer Screening 1991 HPV/Cotest 1991 Pap Smear 1991 DTaP/Tdap/Td Vaccines (1 - Tdap) 1992 Mammogram 2010 Pneumococcal Vaccine (1 of 1 - PCV) 2020 Zoster Vaccines (1 of 2) 2020 COVID-19 Vaccine (1 - 2023-2 5 season) 2024 Influenza Vaccine (#1) 2025 HIB Vaccines Aged Out No longer eligi ble based on patient's age to complete this topic HPV Vaccines Aged Out No longer eligi ble based on patient's age to complete this topic Hepatitis A Vaccines Aged Out No long er eligible based on patient's age to complete this topic IPV Vaccines Aged Out No longer eligi ble based on patient's age to complete this topic Meningococcal Vaccine Aged Out No tru lizbeth eligible based on patient's age to complete this topic Rotavirus Vaccines Aged Out No longer eligible based on patient's age to complete this topic Insurance Comic Reply CHOICE Member Subscriber Plan / Payer (Ef fective 2023-Present) Name:Meredith Chaidez Relation to Subscriber:Self Name:Meredith Chaidez Payer ID:[id number] (NAIC) Type:Not on file Address[address] [id number] Comic Reply CHOICE
--- OUTSIDE RECORDS SUMMARY | 2025-04-05 10:23 | XMS_ITS | Encounter Summary ---
Author Organization [facility] Address [address] [place] [address] Phone Care Team Providers Care Unclaimed Property Manager Name Role Phone Unavailable Primary Care Provider Unavailabl e Encounter Details Date Type Department Care Team (Late st Contact Info) Description 06/03/2023 Scanned Document [facility] [address] [place] [address] Scanning, Generic Provider Social History Tobacco Use Types Packs/Day Years Used Date Smoking Tobacco: Never Assessed Comments Unknown Sex and Gender Information Value Date Recorded Sex Assigned at Not on file Legal Sex Female 1:53 PM EDT Gender Identity Not on file Sexual Orientation Not on file documented as of this encounter Plan of Treatment Not on file documented as of this encounter Procedures Procedure Name Priority Date/Time Associated Diagnosis Comments CARDIAC STRESS TEST 06/03/2023 documented in this encounter Results * CARDIAC STRESS TEST (06/03/2023) Narrative 06/03/2023 Ordered by an unspecified provider. us Generic Provider Scanning CV STRESS PROCEDURES F inal Result documented in this encounter Visit Diagnoses Not on filedocumented in this encounter
--- OUTSIDE RECORDS SUMMARY | 2025-04-05 10:23 | XMS_ITS | Encounter Summary ---
Author Organization [facility] Address [facility] [place] [address] Care Team Providers Care Theatre Professor Name Role Phone RejiEdil Primary Care Provider [phone] Source Comments In the event this information is protected by the Federal Confidentiality of Alcohol and Drug AbusePatient Records regulations: The Federal rules restrict any use of the information to criminally investigate or prosecute any alcohol or drug abuse patient.[facility] Encounter Details Date Type Department Care Team (Late st Contact Info) Description 11/18/2024 Patient Msg Gastroenterology [address] [place] [phone] Provider, [facility] colon prep Social History Tobacco Use Types Packs/Day Years [...] is lower risk 3 06/24/2024 Data from: https://www.neighborhoodatlas.[facility]/. Last address used for calculation [address] [...] 9:00 AM EDT Office Visit Gastroenterology [address] [address] Vicki Barajas APRN.SALES DEVELOPMENT EXECUTIVE [address] [place] [address] Dysphagia, unspecified type [R13.10] 04/18/2025 9:15 AM EDT Appointment Radiology [address] [place], [place] [phone] Interstitial pulmonary disease (HCC) [J84.9] 04/19/2025 9:00 AM EDT Office Visit Urology [address] [address] Diane Sanchez, FOREIGN LANGUAGE STENOGRAPHER.SALES DEVELOPMENT EXECUTIVE [address] [place] [address] kidney stones ( RS FROM 8-5) AWARE MAIN 04/20/2025 1:00 PM EDT Office Visit Otolaryngology [address] [address] Aldair Germain, PhD, [facility] [address] [place] [address] vocal cord dysfunction 04/21/2025 8:25 AM EDT Office Visit Otolaryngology [address] [address] Ruddy Palacios MD [address] [place], [place] [phone] Return in about 6 weeks (around 01/03/2025). 04/27/2025 10:00 AM EDT Procedure Pulmonary Medicine [address] [address] Est pt Asthma per Dr. Sarmiento (60min) 04/27/2025 10:15 AM EDT Procedure Pulmonary Medicine [address] [address] Est pt Asthma per Dr. Sarmiento (60min) 04/27/2025 10:30 AM EDT Procedure Pulmonary Medicine [address] [address] Est pt Asthma per Dr. Sarmiento (60min) 04/27/2025 11:00 AM EDT Office Visit Pulmonary Medicine [address] [address] Austin Sarmiento MD [address] [place] [address] Est pt Asthma per Dr. Sarmiento (60min) 05/03/2025 11:20 AM EDT Office Visit Otolaryngology [address] [place] [address] Evelina Gomes PA-C [address] [place] [address] wax cleaning 05/18/2025 3:00 PM EDT Office Visit Neurology [address] [place] [address] [place] [address] [place] [address] Numbness 07/08/2025 8:45 PM EST Office Visit Neurology [address] [place] [address] Main, Psg Neur [address] [place] [address] NICOLE (obstructive sleep apnea) [G47.33] 2025 10:20 AM EST Office Visit Gastroenterology [address] [place] [address] Lennie Clark MD, PhD [address] [place], [place] [phone] GASTRIC ISSUES 09/09/2025 9:40 AM EST Office Visit Gastroenterology [address] [place] [address] Roland Reyes Jr., DO [address] [place] [phone] Dyspepsia documented as of this encounter Visit Diagnoses Not on filedocumented in this encounter Care Teams Theatre Professor Relationship Specialty Start Date End Date Edil Mendoza DO [address] [place] [address] PCP - General Family Medicine 06/23/24 documented as of this encounter
--- OUTSIDE RECORDS SUMMARY | 2025-04-05 10:23 | XMS_ITS | Encounter Summary ---
Author Organization [facility] Address [facility] [place] [address] Care Team Providers Care Skiver Box Toe Name Role Phone RejiEdil Primary Care Provider [phone] Source Comments In the event this information is protected by the Federal Confidentiality of Alcohol and Drug AbusePatient Records regulations: The Federal rules restrict any use of the information to criminally investigate or prosecute any alcohol or drug abuse patient.[facility] Encounter Details Date Type Department Care Team (Latest Contact Info) Description 01/17/2025 Get Medical Advice Pulmonary Medicine [address] [place] [phone] Gabi Marroquin APRN.[facility] 9500 [facility]. [place] [phone] Theophylline 100 MG refill Social History Tobacco Use Types Packs/Day Years [...] is lower risk 3 06/24/2024 Data from: https://www.neighborhoodatlas.medicine.[facility]/. Last address used for calculation [address] [...] 9:00 AM EDT Office Visit Gastroenterology 2048 [place] [address] Vicki Barajas APRN.CORE MAKER HELPER [address] [place] [address] Dysphagia, unspecified type [R13.10] 04/18/2025 9:15 AM EDT Appointment Radiology [address] [place], [place] [phone] Interstitial pulmonary disease (HCC) [J84.9] 04/19/2025 9:00 AM EDT Office Visit Urology [address] [address] Diane Sanchez, CUSTOMS AGENT.CORE MAKER HELPER [address] [place] [address] kidney stones ( RS FROM 8-5) AWARE MAIN 04/20/2025 1:00 PM EDT Office Visit Otolaryngology [address] [address] Aldair Germain, PhD, [facility] [address] [place] [address] vocal cord dysfunction 04/21/2025 8:25 AM EDT Office Visit Otolaryngology [address] [address] Ruddy Palacios MD [address] [place] [address] Return in about 6 weeks (around 01/03/2025). 04/27/2025 10:00 AM EDT Procedure Pulmonary Medicine [address] [address] Est pt Asthma per Dr. Sarmiento (60min) 04/27/2025 10:15 AM EDT Procedure Pulmonary Medicine [address] [address] Est pt Asthma per Dr. Sarmiento (60min) 04/27/2025 10:30 AM EDT Procedure Pulmonary Medicine [address] [address] Est pt Asthma per Dr. Sarmiento (60min) 04/27/2025 11:00 AM EDT Office Visit Pulmonary Medicine [address] [address] Austin Sarmiento MD [address] [place], [place] [phone] Est pt Asthma per Dr. Sarmiento (60min) 05/03/2025 11:20 AM EDT Office Visit Otolaryngology 57[address] [place] [address] Evelina Gomes PA-C [address] [place] [address] wax cleaning 05/18/2025 3:00 PM EDT Office Visit Neurology [address] [place] [address] [place] [address] [place] [address] Numbness 07/08/2025 8:45 PM EST Office Visit Neurology [address] [place] [address] Main, Psg Neur [address] [place] [address] NICOLE (obstructive sleep apnea) [G47.33] 2025 10:20 AM EST Office Visit Gastroenterology [address] [place] [address] Lennie Clakr MD, PhD [address] [place], [place] [phone] GASTRIC ISSUES 09/09/2025 9:40 AM EST Office Visit Gastroenterology [address] [place] [address] Roland Reyes Jr., DO [address] [place] [place] [phone] Dyspepsia documented as of this encounter Visit Diagnoses Not on filedocumented in this encounter Care Teams Skiver Box Toe Relationship Specialty Start Date End Date Edil Mendoza DO [address] [place] [address] PCP - General Family Medicine 06/23/24 documented as of this encounter
--- OUTSIDE RECORDS SUMMARY | 2025-04-05 10:23 | XMS_ITS | Encounter Summary ---
Author Organization [facility] Address [address] [place] [address] Phone Care Team Providers Care Arts And Crafts Teacher Name Role Phone Unavailable Primary Care Provider Unavailabl e Encounter Details Date Type Department Care Team (Late st Contact Info) Description 06/02/2023 Scanned Document [facility] [address] [place] [address] Scanning, Generic Provider Social History [...] Procedure Name Priority Date/Time Associated Diagnosis Comments ECHOCARDIOGRAM 06/02/2023 documented in this encounter Results * ECHOCARDIOGRAM (06/02/2023) Narrative 06/02/2023 Ordered by an unspecified provider. us Generic Provider Scanning CV ECHO PROCEDURES Fin al Result documented in this encounter Visit Diagnoses Not on filedocumented in this encounter
--- OUTSIDE RECORDS SUMMARY | 2025-04-05 10:23 | XMS_ITS | Encounter Summary ---
Author Organization [facility] Address [address] [place] [address] Care Team Providers Care Leasing Sales Consultant Name Role Phone Shayne Bush PT Unavailable Encounter Details Date Type Department Care Team (Late st Contact Info) Description 02/05/2023 Abstract [facility] [address], [place] [address] Joe Sullivan MD [address] [facility] [address], [place] [address] Social History Tobacco Use Types Packs/Day Years Used Date Smoking Tobacco: Former Cigarettes Smokeless Tobacco: Never Alcohol Use Standard Drinks/Week Comments Never 0 (1 standard drink = 0.6 oz pur e alcohol) Comments Unknown Sex and Gender Information Value Date Recorded Sex Assigned at Female 01/30/2023 9:02 AM EDT Legal Sex Female 6:49 PM EDT Gender Identity Female 01/30/2023 9:02 AM EDT Sexual Orientation Not on file documented as of this encounter Plan of Treatment Not on file documented as of this encounter Visit Diagnoses Not on filedocumented in this encounter Care Teams Leasing Sales Consultant Relationship Specialty Start Date End Date Shayne Bush, PT [address] [place] [address] Physical Therapist Physical Therapy 04/15/23 documented as of this encounter
--- OUTSIDE RECORDS SUMMARY | 2025-04-05 10:23 | XMS_ITS | Clinical Summary ---
Author Organization [facility] Address [address] [place] [address] Care Team Providers Care Youth Program Director Name Role Phone RejiEdil Primary Care Provider [phone] Allergies Active Allergy Reactions Criticality Noted Date Comments Adhesive Tape-Silicones Rash 06/30/2024 Fluticasone Propion-Salmeterol Shortness of Breath 06/30/2024 Diclofenac-Misoprosto l 07/24/2007 Aspartame Itching 11/09/2007 Cefdinir Other: See Comments 09/01/2024 Codeine 07/24/2007 Medroxyprog Deondre (Antineoplast) 07/24/2007 Erythromycin 07/24/2007 Eszopiclone Other: See Comments 09/01/2024 Zon-Gsyrkxfin-Demuqzf nophen Swelling 06/30/2024 sneezing Sumatriptan Succinate 07/24/2007 Ipratropium Hives 08/12/2024 Latanoprost Other: See Comments 09/01/2024 Latex 07/24/2007 Nsaids (Non-Steroidal Anti-Inflammatory Drug) Hives 06/30/2024 Nalbuphine Hcl 07/24/2007 Prednisone Unknown 07/24/2007 Tolerated dexamethasone during hospitalization 08/2024 Pregabalin Other: See Comments 09/01/2024 Quetiapine Other: See Comments 09/01/2024 Nabumetone 07/24/2007 Betamethasone Dipropionate Other: See Comments 06/30/2024 Difficulty breathing Tolerated inhaled budesonide during hospitalization 09/05/2024 Stevioside (Bulk) Intolerance 06/30/2024 Ketorolac Tromethamine 07/24/2007 Trazodone 07/24/2007 [id number] Antimigraine Agents Other: See Comments 06/30/2024 Shooting pain from chest down arm Hydrocodone-Acetamino phen 07/24/2007 Rofecoxib 07/24/2007 Tizanidine Hcl 07/24/2007 Medications pantoprazole sodium(PROTONIX 40 MG TAB) Take 40 mg by mouth two times a day. 0 0 7 Active promethazine hcl(PHENERGAN 25 MG TAB) as necessary 0 0 7 Active ALBUTEROL 90 MCG/ACTUATION AEROSOL INHALER Inhale one(1) - two(2) puffs four(4) times a day as needed for wheezing and shortness of breath. 0 0 8 Active levothyroxine (SYNTHROID) 50 mcg tablet Take 50 mcg by mouth daily before breakfast. Active febuxostat (ULORIC) 40 mg tab Take by mouth once daily. Active metoprolol succinate ER (TOPROL XL) 25 mg 24 hr tablet Take 50 mg by mouth once daily. Active amLODIPine (NORVASC) 2.5 mg tablet Take by mouth once daily. Active rhubarb root extract (ESTROVEN CMPLT MENOPAUSE RLF) 4 mg tab Take by mouth. A ctive cholecalciferol (VITAMIN D-3) 5,000 unit tab Take 5,000 Units by mouth once daily. Active gabapentin (NEURONTIN) 400 mg capsule Take 400 mg by mouth at 9 am and 400 mg at 2 pm 60 capsule 5 Active gabapentin (NEURONTIN) 300 mg capsule Take 3 capsules by mouth daily at bedtime for 30 days. 90 capsule 5 Active ALPRAZolam (XANAX) 1 mg tablet Take 1 mg by mouth at bedtime as needed. Active famotidine (PEPCID) 40 mg tabletIndications :LPRD (laryngopharyngea l reflux disease) Take 1 tablet by mouth once daily. 90 tablet 2 5 Active ipratropium-albut melissa (DUONEB) 0.5 mg-3 mg(2.5 mg base)/3 mL nebuIndications:S evere persistent asthma, unspecified whether complicated (HCC) Inhale 3 mL as instructed every 6 hours as needed for wheezing/short ness of breath. 360 mL 4 5 Active CPAP/BIPAP/OTHERI ndications:NICOLE (obstructive sleep apnea),Primary hypertension,Vibha re persistent asthma, unspecified whether complicated (HCC) Type .CPAPSettings into a note to see current settings/suppl ies/DME information. 1 Each 5 03/27/20 52 Active cetirizine (ZYRTEC) 10 mg tablet Take 1 tablet by mouth two times a day. 0 5 Active budesonide (PULMICORT) 0.25 mg/2 mL nebulizer solutionIndicatio ns:Severe persistent asthma without complication (HCC) Use 2 mL via nebulizer two times a day. 36 mL 3 5 Active montelukast (SINGULAIR) 10 mg tabletIndications :Severe persistent asthma without complication (HCC) Take 1 tablet by mouth daily at bedtime. 90 tablet 4 5 Active tiotropium-olodat melissa (STIOLTO RESPIMAT) 2.5-2.5 mcg/actuation inhalerIndication s:Severe persistent asthma without complication (HCC) Inhale 2 puffs as instructed once daily. 12 g 4 5 Active Active Problems Patient Care Coordination No te Formatting of this note migh t be different from the original. Indication for MICU Admission: Acute on Chronic Hypoxic Respiratory Failure 2/2 COPD/Asthma Exacerbation vs CAP Significant PMH/PSH: -Fibromyalgia -RA -Depression -Glaucoma -Severe Asthma/COPD -NICOLE on CPAP -30 pack year former Smoker -HTN -Fatty Liver -GERD -Hypothyroidism -Spinal Stenosis with Lower Back Pain Hospital Course: Recent hospitalization from 07/22-07/25 for Acute on Chronic Hypoxic Respiratory failure 2/2 COPD/Asthma exacerbation and RSV and sent home on home NC 1 liter. Patient initially presented to OSH on late 09/01 for SOB. Patient was ambulating to the bathroom on her home NC 1 liter when she developed acute SOB and tightness, she increased in her home O2 to NC 4 liters with no benefit and called EMS. When EMS arrived SpO2 85% on NC 4 liters, was given breathing treatments en route. While at the OSH patient with labored breathing. Patient was treated with albuterol treatments and theophylline and placed on BiPAP, COVID-19 negative. The patient was then admitted to [facility] MICU for further management of Acute on Chronic Hypoxic Respiratory Failure 2/2 COPD/Asthma Exacerbation vs CAP. Upon admission to the MICU the patient had respiratory culture drawn on 08/30 growing GPC in pairs. Developed worsening tachypnea and dyspnea, was intubated 09/01 for worsening hypercapnia. MICU course c/b tachycardia, prolonged Qtc, and AutoPEEP requiring increased sedation. Started on Dexamethasone and albuterol, discussed with Allergy, extubated to TN on 09/05. Significant New Events Past 24 hrs: Overnight developed chest tightness, EKG unremarkable, then developed worsening anxiety, given Atarax x 1 with little benefit and then IV lorazepam with positive response, AM labs with K 3.6, replaced, net negative 440 ml/24 hours, no BM since admission. Today patient is alert & oriented x 3, on NC 2 liters, mild wheezing in all lobes bilaterally, patient able to speak in full sentences, states she feels better today, in SR, BP stable, a-febrile. A/P of Major Active Problems: #TIA #Fibromyalgia #Depression #RA #Anxiety #Delirium vs Affective Bipolar Hx of Bipolar disorder per [facility], not on any treatment Xanax PRN at home Plan: -Psych following -Consult Psychology for inpatient therapy as requested by patient -Atarax PRN for anxiety, benzodiazepines PRN for severe anxiety, patient tolerating in hospital -Home gabapentin -PT/OT -Mobilize as tolerated and out of bed today -Haldol PRN for severe agitation #Acute on Chronic Hypoxic Hypercapnic Respiratory Failure 2/2 #Asthma/COPD (on NC 1 liter at home) #NICOLE 06/30/24 Exhaled NO of 69 with obstruction on Spirometry Infectious work-up unremarkable; ceftriaxone (09/01) and doxycycline (09/01) 09/[address] evidence of pulmonary embolism within limits of the exam. Increasing dependent and basilar opacities with development of opacification of the underlying bronchi, possibly secondary to aspiration with early aspiration pneumonitis. Sputum cx (-), RVP (-) 09/02 intubated for hypercapnia and dyspnea, 09/05 extubated to TN ECHO 09/03 Negative shunt study, EF 66%, no abnormalities 09/04 peak flow 95% predicted 386 L/min Plan: -Supplemental oxygen for goal SpO2 > 90% -BiPAP QHS and PRN -Allergy following for help with management with multiple allergies - Add daily cetirizine for chronic spontaneous urticaria -IV dexamethasone 6 mg daily for 10 days, patient was initially declining therapy 2/2 c/f adverse reactions but okay to receive at this time -Albuterol Q 6 hours and PRN -Pumicort BID, patient tolerated dosing on 09/04 however declining at this time -Home theophylline and montelukast -SCD's for DVT PPx, patient declining all medications for DVT PPx #HTN #Chest Pain likely / coughing 03/2024 ECHO 52%, RV normal Home regimen: amlodipine 2.5 mg daily and metoprolol succinate 50 mg daily MILENA HS unremarkable; EKG with no ST changes, QTc 621 Plan: -Restart home amlodipine and also home metoprolol at decreased dose with holding parameters -Avoid QT prolonging agents,repeat EKG as indicated -Optimize electrolytes for goal K > 4 Mg > 2 #Fatty Liver #GERD #Moderate Protein-Calorie Malnutrition #Constipation Plan: -Home PPI -Bowel regimen with Miralax and senna; patient declining suppository at this time, passing gas -Advance diet as tolerated #Hypothyroidism Plan: -Home levothyroxine -SS 2 insulin #Spinal Stenosis #Chronic Back Pain Plan: -Gabapentin discussed above Barriers to transfer out of MICU: Transfer to the [facility] under General Internal Medicine Problem Noted Date Diagnosed Date Severe persistent asthma 10/27/2024 Overview (12/10/2024): [address] without infiltrates or nodules , 2023 IgE 89, 11/02 AEC 460 , negative region 5 environmental Immunocap results ,2023 FENO 69 ppb, Spirometry FEV1 44%, FEV1/FVC 59%, FVC 62%: mixed restriction/obstruction , then 11/02 nl FEV1 81% and FEV1/FVC 66%, FVC 102% on stiolto, montelukast, jen 100 mg q 12 , jen level 6.7 mcg/ml Polyarthralgia 10/27/2024 Rash and nonspecific skin eruption 10/27/2024 Obesity, Class II, BMI 35-39.9 09/09/2024 Glaucoma 09/08/2024 Overview (09/08/2024): Stints placed in both eyes on 2019 Gout 09/08/2024 Overview (09/08/2024): For at least 8 years Bipolar 1 disorder 09/08/2024 Anxiety, generalized 09/08/2024 Chronic respiratory failure with hypoxia 025 Hidradenitis suppurativa 09/08/2024 Hypertriglyceridemia 09/08/2024 Rheumatoid arthritis involving both hands 2024 Delirium 09/06/2024 Prolonged QT interval 09/02/2024 Malnutrition of moderate degree 09/02/2024 Fibromyalgia 09/01/2024 NICOLE on CPAP 09/01/2024 Primary hypertension 09/01/2024 Fatty liver 09/01/2024 Other specified hypothyroidism 09/01/2024 Drug allergy, multiple 09/01/2024 Moderate protein-calorie malnutrition 07/24/2024 Severe persistent asthma with (acute) exacerbati on 07/01/2024 DAWOOD positive 03/31/2024 Mild mitral regurgitation 03/31/2024 Pulmonary hypertension 09/10/2022 Esophageal reflux Irritable bowel syndrome Resolved Problems Problem Noted Date Diagnosed Date Resolved Date Kidney stones 09/08/2024 09/08/2024 Overview (09/08/2024): Since my 20s Acute on chronic respiratory failure with hypoxia and hypercapnia 09/01/2024 09/09/2024 Acute asthma exacerbation 07/23/2024 Acute respiratory failure with hypoxia 07/23/2024 09/08/2024 Hypercalcemia 06/30/2024 09/08/2024 Elevated total protein 06/30/202409/08 Assessment & Plan (07/01/2024 7:16 PM EST): Cervical spondylosis without myelopathy 09/08/2024 Encounters Date Type Department Care Team Description 03/22/2025 Travel 03/07/2025 Abstract Gastroenterology [address] [id number] Pina Small RN 03/06/2025 10:06 PM EDT - 03/07/2025 2:08 AM EDT Emergency [facility] Emergency Department [address] [place] [address] Asad Traylor MD MIGRAINE Discharge Disposition: Home 03/06/2025 Travel 03/02/2025 Telephone Head and Neck [place] [address] [place] [address] Aldair Germain, PhD, CCC-DIETARY AIDE COOK 03/01/2025 Results Follow-Up Otolaryngology [address] [place] [address] Evelina Gomes PA-C 02/28/2025 12:00 PM EDT OT/PT/Speech Visit [facility] Speech Therapy [address] [place] [id number] Edil Reyes, CCC-DIETARY AIDE COOK Oropharyngeal dysphagia (Primary Dx) 02/28/2025 11:30 AM EDT - 02/28/2025 11:59 PM EDT Hospital Encounter Radiology [address] [place] [address] Dysphagia, unspecified type [R13.10] Discharge Disposition: Home 02/23/2025 1:00 PM EDT Office Visit Pulmonary Medicine [address] [address] Austin Sarmiento MD Severe persistent asthma without complication (HCC) (Primary Dx); Numbness; Dysphagia, unspecified type; Inducible laryngeal obstruction (ILO); ILD (interstitial lung disease) (HCC); Interstitial pulmonary disease (HCC) 02/19/2025 Travel 01/18/2025 Telephone Pulmonary Medicine [address] [address] Gabi Marroquin APRN.POLICE CRIME SCENE TECHNICIAN Medication Problem 01/17/2025 Refill Pulmonary Medicine [address] [address] Gabi Marroquin APRN.POLICE CRIME SCENE TECHNICIAN Refill Request 01/17/2025 Get Medical Advice Nutrition Therapy [address] [address] Provider, [facility] Missed appointment 01/17/2025 Get Medical Advice Pulmonary Medicine [address] [address] House, Gabi, FABRICATION INSPECTOR.POLICE CRIME SCENE TECHNICIAN Theophylline 100 MG refill 01/12/2025 Patient Msg Internal Medicine Formerly [facility] [address] [facility], [place] [id number] Provider, [employer] APPOINTMENT CANCELLED 01/11/2025 Travel from Last 3 Months Immunizations Immunization Administration Dates Next Due influenza (IIV3) vaccine, tr ivalent, PF (AFLURIA, FLUARIX, FLULAVAL, FLUVIRIN, FLUZONE) 08/15/2024,04/08/2016 influenza (IIV4) vaccine, ag e 6 mo - 64 yr, quadrivalent, PF (AFLURIA, FLUARIX, FLULAVAL, FLUZONE) 06/03/2023,05/19/2020,05/13/2018,2016 influenza vaccine, southern hemisphere, unspecified formulation 05/10/2017 influenza vaccine, unspecifi ed formulation 05/11/2019,05/10/2017 pneumococcal conjugate (PCV1 3) vaccine, 13 valent (PREVNAR 13) 03/15/2017 pneumococcal conjugate (PCV2 0) vaccine, 20 valent (PREVNAR 20) 09/09/2024 respiratory syncytial virus (RSV) vaccine, bivalent (ABRYSVO) 09/09/2024(Deferred: Patient Refused) tetanus diphtheria pertussis (Tdap) vaccine, age 7+ yr (ADACEL, BOOSTRIX) 12/03/2012 Family History Medical History Relation Comments Hypertension Father Diabetes Maternal Aunt Diabetes Maternal Uncle Cancer Mother cervical Cancer Sister cervical Relation Status Comments Father Maternal Aunt Maternal Uncle Mother Sister Social History Tobacco Use Types Packs/Day Years Used Date Smoking Tobacco: Former Cigarettes Q uit: 04/01/2007 Passive Smoke Exposure: Past Smokeless Tobacco: Current Tobacco Cessation:Ready to Q uit: Not Asked; Counseling Given: Not Answered Alcohol Use Standard Drinks/Week Comments No 0 (1 standard drink = 0.6 oz pur e alcohol) PHQ-2 Answer Date Recorded PHQ-2 score 2 05/05/2022 Area Deprivation Index Answer Date Héctor rded National Score (1-100), lower number is lower ri sk 55 06/24/2024 State Score (1-10), lower number is lower risk 3 06/24/2024 Data from: https://www.neighborhoodatlas.medicine.[facility].edu/. Last address used for calculation [address] 06/24/2024 Comments No Sex and Gender Information Value Date Recorded Sex Assigned at Female 01/21/2022 11:29 AM EDT Legal Sex Female 8:11 AM EST Gender Identity Female 01/21/2022 11:29 AM EDT Sexual Orientation Straight 01/21/2022 11 :29 AM EDT Last Filed Vital Signs Vital Sign Reading Time Taken Comments Blood Pressure 126/68 03/07/2025 2:05 AM EDT Pulse 67 03/07/2025 2:05 AM EDT Temperature 36.7 C (98.1 F) 03/06/2025 4:37 PM EDT Respiratory Rate 20 03/06/2025 4:37 PM EDT Oxygen Saturation 95% 03/07/2025 2:05 AM EDT Inhaled Oxygen Concentration - - Weight 97.6 kg (215 lb 2.7 oz) 02/23/2025 12:48 PM EDT Height 152.4 cm (5') 12/09/2024 8:02 AM EDT Body Mass Index 42.02 12/09/2024 8:02 AM EDT Plan of Treatment Upcoming Encounters Date Type Department Care Team (Late st Contact Info) Description 04/12/2025 9:00 AM EDT Office Visit Gastroenterology [address] [address] Vicki Barajas, FABRICATION INSPECTOR.POLICE CRIME SCENE TECHNICIAN [address] [place] [address] Dysphagia, unspecified type [R13.10] 04/18/2025 9:15 AM EDT Appointment Radiology [address] [place], [place] [phone] Interstitial pulmonary disease (HCC) [J84.9] 04/19/2025 9:00 AM EDT Office Visit Urology [address] [address] Diane Sanchez, FABRICATION INSPECTOR.POLICE CRIME SCENE TECHNICIAN [address] [place] [address] kidney stones ( RS FROM 8-5) AWARE MAIN 04/20/2025 1:00 PM EDT Office Visit Otolaryngology [address] [address] Aldair Germain, PhD, [facility]3]-DIETARY AIDE COOK [address] [place] [address] vocal cord dysfunction 04/21/2025 8:25 AM EDT Office Visit Otolaryngology [address] [address] Ruddy Palacios MD [address] [place] [address] Return in about 6 weeks (around 01/03/2025). 04/27/2025 10:00 AM EDT Procedure Pulmonary Medicine [address] [address] Est pt Asthma per Dr. Sarmiento (60min) 04/27/2025 10:15 AM EDT Procedure Pulmonary Medicine [address] [address] Est pt Asthma per Dr. Sarmiento (60min) 04/27/2025 10:30 AM EDT Procedure Pulmonary Medicine [address] [address] Est pt Asthma per Dr. Sarmiento (60min) 04/27/2025 11:00 AM EDT Office Visit Pulmonary Medicine [address] [address] Austin Sarmiento MD [address] [place] [address] Est pt Asthma per Dr. Sarmiento (60min) 05/03/2025 11:20 AM EDT Office Visit Otolaryngology [address] [place] [address] Evelina Gomes PA-C [address] [place] [address] wax cleaning 05/18/2025 3:00 PM EDT Office Visit Neurology [address] [place] [address] [place] [address] [place] [address] Numbness 07/08/2025 8:45 PM EST Office Visit Neurology [address] [place] [address] Main, Psg Neur [address] [place] [address] NICOLE (obstructive sleep apnea) [G47.33] 2025 10:20 AM EST Office Visit Gastroenterology [address] [place] [address] Lennie Clark MD, PhD [address] [place], [place] [phone] GASTRIC ISSUES 09/09/2025 9:40 AM EST Office Visit Gastroenterology [address] [place] [address] Roland Reyes Jr., DO [address] [facility] [address] [place] [phone] Dyspepsia Health Maintenance Due Date Last Done Comments Annual PCP Team Chronic Dise ase Visit 1988 Depression Screening 1988 HIV Screening 1988 Hepatitis B Vaccine (1 of 3 - 19+ 3-dose series) 1989 Cervical Cancer Screening [address] Colonography 2015 Cologuard (FIT-DNA) 2015 Fecal Occult Blood 2015 Lipid Screening 2015 Sigmoidoscopy 2015 Shingrix Vaccine (1 of 2) 2020 DTaP,Tdap,Td Vaccine (2 - Td or Tdap) 12/03/2022 12/03/2012 Medicare Advantage Annual We llness Visit 08/11/2024 Influenza Vaccine (#1) 2025 , 06/03/2023, 05/19/2020, Additional history exists Diabetes Screening 03/06/2028 03/06/2025, 0 12/09/2024, 10/27/2024, Additional history exists Colonoscopy 11/16/2029 12/09/2024 Colorectal Cancer Screening 11/16/2029 Pneumococcal Vaccine: 50+ Completed 09/09/2024, 12/2016 Hepatitis C Screening Completed 10/27/2024 Procedures Procedure Name Priority Date/Time Associated Diagnosis Comments US DVT LOWER RIGHT STAT 03/07/2025 1: 19 AM EDT MAGNESIUM BLD STAT 03/06/2025 10:44 PM EDT CBC + DIFF STAT 03/06/2025 10:44 PM EDT BASIC METABOLIC PANEL STAT 03/06/2025 10:44 PM EDT XR ESOPHAGRAM Routine 02/28/2025 1:49 PM EDT Dysphagia, unspecified type XR MODIFIED BARIUM SWALLOW W SPEECH THERAPY Routine 02/28/2025 1:45 PM EDT Dysphagia, unspecified type PT ED PATIENT INFORMATION 02/24/2025 COLONOSCOPY SCREENING Routine 12/09/2024 8:38 AM EDT Personal history of adenomatous and serrated colon polyps HEPATITIS C ANTIBODY IA WITH CONFIRMATION Routine 10/27/2024 12:44 PM EDT Polyarthralgia Severe persistent asthma, unspecified whether complicated Rash and nonspecific skin eruption from Last 3 Months or Most Recently Relevant to Health Maintenance Results * US DVT LOWER RIGHT (03/07/2025 1:19 AM EDT) Anatomical Region Laterality Modality Leg Ultrasound 03/07/2025 1:19 AM EDT Impressions 03/07/2025 1:54 AM EDT IMPRESSION: Negative study for proximal DVT in the right lower extremity. Negative study for calf DVT in the right lower extremity. Negative study for superficial thrombophlebitis in the imaged segments of the right lower extremity. Boilers And Pressure Vessels Inspector: SHANTEL Transcribe Date/Time: Mar 07 2025 1:29A Dictated by : FRANTZ SMITH MD This examination was interpreted and the report reviewed and electronically signed by: PEEWEE PETERS MD on Mar 07 2025 1:52AM EST Narrative 03/07/2025 1:54 AM EDT * * *Final Report* * * DATE OF EXAM: Mar 07 2025 1:19AM [facility]7 - US DVT LOWER RT / PROCEDURE REASON: Leg pain or tenderness * * * * Physician Interpretation * * * * EXAMINATION: RIGHT LOWER EXTREMITY DEEP VENOUS ULTRASOUND WITH DOPPLER IMAGING CLINICAL HISTORY: Leg pain or tenderness. TECHNIQUE: Grayscale with compression maneuvers, color Doppler and spectral Doppler imaging of the right proximal deep veins was performed. Grayscale with compression maneuvers of the peroneal and posterior tibial veins was performed. The right great and small saphenous veins were evaluated at their insertion to the deep system. The contralateral common femoral vein was imaged for comparison. Images were obtained and stored in a permanent archive. MQ: [email or web address]_1 COMPARISON: None RESULT: RIGHT LOWER EXTREMITY PROXIMAL DEEP VEINS Distal External Iliac, Common Femoral and proximal Profunda Veins: Compression: Normal Doppler: Normal, spontaneous respirophasic flow. Normal response to augmentation. Femoral vein: Compression: Normal Doppler: Normal, spontaneous flow. Normal response to augmentation. Popliteal vein: Compression: Normal Doppler: Normal, spontaneous flow. Normal response to augmentation. CALF DEEP VEINS Peroneal veins: Normal compression. Posterior tibial veins: Normal compression. Gastrocnemius and Soleal veins: Not imaged. SUPERFICIAL VEINS Great saphenous: Patent and compressible at insertion into common femoral vein; not otherwise assessed. Small Saphenous: Patent and compressible in the proximal calf, not otherwise assessed. LEFT LOWER EXTREMITY (FOR COMPARISON) Common Femoral Vein: Compression: Normal Doppler: Normal, spontaneous respirophasic flow. Normal response to augmentation. Procedure Note Provider, [facility] [place] - 03/07/2025 * * *Final Report* * * DATE OF EXAM: Mar 07 2025 1:19AM [facility]7 - US DVT LOWER RT / PROCEDURE REASON: Leg pain or tenderness * * * * Physician Interpretation * * * * EXAMINATION: RIGHT LOWER EXTREMITY DEEP VENOUS ULTRASOUND WITH DOPPLER IMAGING CLINICAL HISTORY: Leg pain or tenderness. TECHNIQUE: Grayscale with compression maneuvers, color Doppler and spectral Doppler imaging of the right proximal deep veins was performed. Grayscale with compression maneuvers of the peroneal and posterior tibial veins was performed. The right great and small saphenous veins were evaluated at their insertion to the deep system. The contralateral common femoral vein was imaged for comparison. Images were obtained and stored in a permanent archive. MQ: USLER_1 COMPARISON: None RESULT: RIGHT LOWER EXTREMITY PROXIMAL DEEP VEINS Distal External Iliac, Common Femoral and proximal Profunda Veins: Compression: Normal Doppler: Normal, spontaneous respirophasic flow. Normal response to augmentation. Femoral vein: Compression: Normal Doppler: Normal, spontaneous flow. Normal response to augmentation. Popliteal vein: Compression: Normal Doppler: Normal, spontaneous flow. Normal response to augmentation. CALF DEEP VEINS Peroneal veins: Normal compression. Posterior tibial veins: Normal compression. Gastrocnemius and Soleal veins: Not imaged. SUPERFICIAL VEINS Great saphenous: Patent and compressible at insertion into common femoral vein; not otherwise assessed. Small Saphenous: Patent and compressible in the proximal calf, not otherwise assessed. LEFT LOWER EXTREMITY (FOR COMPARISON) Common Femoral Vein: Compression: Normal Doppler: Normal, spontaneous respirophasic flow. Normal response to augmentation. IMPRESSION IMPRESSION: Negative study for proximal DVT in the right lower extremity. Negative study for calf DVT in the right lower extremity. Negative study for superficial thrombophlebitis in the imaged segments of the right lower extremity. Boilers And Pressure Vessels Inspector: PSCB Transcribe Date/Time: Mar 07 2025 1:29A Dictated by : FRANTZ SMITH MD This examination was interpreted and the report reviewed and electronically signed by: PEEWEE PETERS MD on Mar 07 2025 1:52AM EST Paras Patton MD -PAMA Final Result * MAGNESIUM (03/06/2025 10:44 PM EDT) Magnesium 2.0 1.7 - 2.3 mg/dL 03/06/2025 11:05 PM EDT [facility] Blood BLOOD SPECIMEN / Unknown Venipuncture / Unknown 03/06/2025 10:44 PM EDT 03/06/2025 10:47 PM EDT Blanca Richards PA-C LABORATORY Final Result [facility] [address] [id number], * (ABNORMAL) COMPLETE BLOOD COUNT AND DIFFERENTIAL (03/06/2025 10:44 PM EDT) [facility] WBC 7.02 3.70 - 11.00 k/uL 03/06/2025 10:51 PM EDT [facility] RBC 4.93 3.90 - 5.20 m/uL 03/06/2025 10:51 PM EDT [facility] Hemoglobin 14.8 11.5 - 15.5 g/dL 03/06/2025 10:51 PM EDT [facility] Hematocrit 43.2 36.0 - 46.0 % 03/06/2025 10:51 PM EDT [facility] MCV 87.6 80.0 - 100.0 fL 03/06/2025 10:51 PM EDT [facility] MCH 30.0 26.0 - 34.0 pg 03/06/2025 10:51 PM EDT [facility] MCHC 34.3 30.5 - 36.0 g/dL 03/06/2025 10:51 PM EDT [facility] RDW-CV 13.0 11.5 - 15.0 % 03/06/2025 10:51 PM EDT [facility] Platelet Count 295 150 - 400 k/uL 03/06/2025 10:51 PM EDT [facility] MPV 9.9 9.0 - 12.7 fL 03/06/2025 10:51 PM EDT [facility] Neutrophils % 50.9 % 03/06/2025 10:51 PM EDT [facility] Abs Neut 3.57 1.45 - 7.50 k/uL 03/06/2025 10:51 PM EDT [facility] Lymphocytes % 31.5 % 03/06/2025 10:51 PM EDT [facility] Abs Lymph 2.21 1.00 - 4.00 k/uL 03/06/2025 10:51 PM EDT [facility] Monocytes % 12.5 % 03/06/2025 10:51 PM EDT [facility] Abs [place] 0.88(H) <0.87 k/uL 03/06/2025 10:51 PM EDT [facility] Eosinophils % 4.1 % 03/06/2025 10:51 PM EDT [facility] Abs Eosin 0.29 <0.46 k/uL 03/06/2025 10:51 PM EDT [facility] Basophils % 0.6 % 03/06/2025 10:51 PM EDT [facility] Abs Baso 0.04 <0.11 k/uL 03/06/2025 10:51 PM EDT [facility] Immature Granulocytes % 0.4 % 03/06/2025 10:51 PM EDT [facility] Abs Immature Gran 0.03 <0.10 k/uL 025 10:51 PM EDT [facility] NRBC 0.0 /100 WBC 03/06/2025 10:51 PM EDT [facility] Absolute nRBC <0.01 <0.01 k/uL 03/06/2025 10:51 PM EDT [facility] Diff Type Auto 03/06/2025 10:51 PM EDT [facility] Blood BLOOD SPECIMEN / Unknown Venipuncture / Unknown 03/06/2025 10:44 PM EDT 03/06/2025 10:47 PM EDT us Blanca Richards PA-C LABORATORY Final Result [facility] [address] [place] [address], * BASIC METABOLIC PANEL (03/06/2025 10:44 PM EDT) [facility] Glucose 91 74 - 99 mg/dL 03/06/2025 11:05 PM EDT [facility] Comment: The [place] [employer] (ADA) provides guidance for cutoff values for fasting glucose and random glucose. The ADA defines fasting as no caloric intake for at least 8 hours. Fasting plasma glucose results between 100 to 125 mg/dL indicate increased risk for diabetes (prediabetes). Fasting plasma glucose results greater than or equal to 126 mg/dL meet the criteria for diagnosis of diabetes. In the absence of unequivocal hyperglycemia, results should be confirmed by repeat testing. In a patient with classic symptoms of hyperglycemia or hyperglycemic crisis, random plasma glucose results greater than or equal to 200 mg/dL meet the criteria for diagnosis of diabetes. Reference: Standards of Medical Care in Diabetes 2016, [place] [employer]. Diabetes Care. 2016.39(Suppl 1). BUN 13 7 - 21 mg/dL 03/06/2025 11:05 PM EDT [facility] Creatinine 0.73 0.58 - 0.96 mg/dL 03/06/2025 11:05 PM T [facility] Sodium 139 136 - 144 mmol/L 03/06/2025 11:05 PM T [facility] Potassium 3.8 3.7 - 5.1 mmol/L 03/06/2025 11:05 PM T [facility] Chloride 103 98 - 107 mmol/L 03/06/2025 11:05 PM T [facility] CO2 23 22 - 30 mmol/L 03/06/2025 11:05 PM T [facility] Anion Gap 13 8 - 15 mmol/L 03/06/2025 11:05 PM T [facility] Calcium, Total 10.1 8.5 - 10.2 mg/dL 03/06/2025 11:05 PM T [facility] Estimated Glomerular Filtration Rate 98 >=60 mL/min/1.7 3m 03/06/2025 11:05 PM [facility] Comment:Estimated Glomerular Filtration Rate (eGFR) is calculated using the 2020 CKD-EPI creatinine equation. This equation utilizes serum creatinine, sex, and age as parameters. The creatinine assay has traceable calibration to isotope dilution- mass spectrometry. Refer to KDIGO guidelines for clinical interpretation. In patients with unstable renal function, e.g. those with acute kidney injury, the eGFR may not accurately reflect actual GFR. Blood BLOOD SPECIMEN / Unknown Venipuncture / Unknown 03/06/2025 10:44 PM EDT 03/06/2025 10:47 PM EDT us Blanca Richards PA-C LABORATORY Final Result [facility] [address] [facility] [address] [place] [address], [place] * XR ESOPHAGRAM (02/28/2025 1:49 PM EDT) Anatomical Region Laterality Modality Chest Radio Fluoroscop y 02/28/2025 1:4 9 PM EDT Impressions 02/28/2025 4:55 PM EDT IMPRESSION: SMALL HIATAL HERNIA, TYPE I. Boilers And Pressure Vessels Inspector: SHANTEL Transcribe Date/Time: Feb 28 2025 1:49P Dictated by : JANET PAN DO This examination was interpreted and the report reviewed and electronically signed by: DEEPA WALL MD on Feb 28 2025 4:53PM EST Narrative 02/28/2025 4:55 PM EDT * * *Final Report* * * DATE OF EXAM: Feb 28 2025 1:49PM [id number] - XR ESOPHAGRAM / PROCEDURE REASON: Dysphagia, unspecified type * * * * Physician Interpretation * * * * ESOPHAGRAM CLINICAL INFORMATION: Dysphagia. TECHNIQUE: A biphasic examination of the esophagus was performed utilizing effervescent granules (E-Z-Gas II - 4 grams), high density barium, and low density barium. Contrast: ORAL: 120ml, ml of EZPAQUE ORAL: 80ml, ml of EZHD ORAL: one tablet, ml of EZ DISK Fluoroscopy radiation summary: Fluoroscopy time: 3:06 (min:sec). Air kerma: 0.0 mGy. Total number of images: 11 RESULT: Caliber: Normal. Stricture, Ring, or Web: None. Motility: Normal. Hiatal Hernia: Small, type I. Gastroesophageal Reflux: None, despite provocative maneuvers including cough, Valsalva, straight leg raise, and water siphon. Gastric Cardia: Normal. Barium Tablet: Passed easily without reproducing symptoms. Other Findings: None. Procedure Note Provider, [facility] [place] - 02/28/2025 * * *Final Report* * * DATE OF EXAM: Feb 28 2025 1:49PM [id number] - XR ESOPHAGRAM / PROCEDURE REASON: Dysphagia, unspecified type * * * * Physician Interpretation * * * * ESOPHAGRAM CLINICAL INFORMATION: Dysphagia. TECHNIQUE: A biphasic examination of the esophagus was performed utilizing effervescent granules (E-Z-Gas II - 4 grams), high density barium, and low density barium. Contrast: ORAL: 120ml, ml of EZPAQUE ORAL: 80ml, ml of EZHD ORAL: one tablet, ml of EZ DISK Fluoroscopy radiation summary: Fluoroscopy time: 3:06 (min:sec). Air kerma: 0.0 mGy. Total number of images: 11 RESULT: Caliber: Normal. Stricture, Ring, or Web: None. Motility: Normal. Hiatal Hernia: Small, type I. Gastroesophageal Reflux: None, despite provocative maneuvers including cough, Valsalva, straight leg raise, and water siphon. Gastric Cardia: Normal. Barium Tablet: Passed easily without reproducing symptoms. Other Findings: None. IMPRESSION IMPRESSION: SMALL HIATAL HERNIA, TYPE I. Boilers And Pressure Vessels Inspector: SHANTEL Transcribe Date/Time: Feb 28 2025 1:49P Dictated by : JANET PAN DO This examination was interpreted and the report reviewed and electronically signed by: DEEPA WALL MD on Feb 28 2025 4:53PM EST Evelina JAIMES Final Result * XR MODIFIED BARIUM SWALLOW W SPEECH THERAPY (02/28/2025 1:45 PM EDT) Anatomical Region Laterality Modality Neck Radio Fluoroscop y 02/28/2025 1:45 PM EDT Impressions 02/28/2025 4:55 PM EDT IMPRESSION: Please refer to speech pathologist's reported assessment. Boilers And Pressure Vessels Inspector: [facility] Transcribe Date/Time: Feb 28 2025 4:17P Dictated by : DEEPA WALL MD This examination was interpreted and the report reviewed and electronically signed by: DEEPA WALL MD on Feb 28 2025 4:53PM EST Narrative 02/28/2025 4:55 PM EDT * * *Final Report* * * DATE OF EXAM: Feb 28 2025 1:45PM [id number] - XR MOD BARIUM SWALLOW W SPEECH / PROCEDURE REASON: Dysphagia, unspecified type * * * * Physician Interpretation * * * * MODIFIED BARIUM SWALLOW - 02/28/2025 1:45 PM. PROCEDURE: The patient was examined in the sitting erect position with a speech pathologist in attendance. Fluoroscopy Time (minutes : seconds) = 2:48 Effective radiation dose (mGy) = 0.0 mGy Total number of images: 12. Oral Contrast: VARIBAR THIN ORAL 70ml, 946828 mL VARIBAR PUDDING ORAL 20ml, 360330 mL EZ DISK ORAL one tablet, 711483M mL CLINICAL INFORMATION: Refer to speech pathologist evaluation report. Dysphagia. Difficulty swallowing. RESULT: Fluoroscopy was provided during performance of a swallowing evaluation by the speech pathologist. - Procedure Note Provider, [facility] [place] - 02/28/2025 * * *Final Report* * * DATE OF EXAM: Feb 28 2025 1:45PM [id number] - XR MOD BARIUM SWALLOW W SPEECH / PROCEDURE REASON: Dysphagia, unspecified type * * * * Physician Interpretation * * * * MODIFIED BARIUM SWALLOW - 02/28/2025 1:45 PM. PROCEDURE: The patient was examined in the sitting erect position with a speech pathologist in attendance. Fluoroscopy Time (minutes : seconds) = 2:48 Effective radiation dose (mGy) = 0.0 mGy Total number of images: 12. Oral Contrast: VARIBAR THIN ORAL 70ml, 607768 mL VARIBAR PUDDING ORAL 20ml, 876799 mL EZ DISK ORAL one tablet, 160125K mL CLINICAL INFORMATION: Refer to speech pathologist evaluation report. Dysphagia. Difficulty swallowing. RESULT: Fluoroscopy was provided during performance of a swallowing evaluation by the speech pathologist. - IMPRESSION IMPRESSION: Please refer to speech pathologist's reported assessment. Boilers And Pressure Vessels Inspector: SHANTEL Transcribe Date/Time: Feb 28 2025 4:17P Dictated by : DEEPA WALL MD This examination was interpreted and the report reviewed and electronically signed by: DEEPA WALL MD on Feb 28 2025 4:53PM EST us Evelina Gomes PA-C RAD-PAMA Final Result * PT ED PATIENT INFORMATION (02/24/2025) 02/24/2025 Narrative JENNY - 02/27/2025 Provider WILD ulloa patient MEREDITH CHAIDEZ started their Jenny on 02-27-2025 and completed it on 02-27-2025 Jenny program: PATIENT SAFETY INSTRUCTIONS FOR HEALTHCARE SETTINGS us Vicki Barajas CARLOS ALBERTO.POLICE CRIME SCENE TECHNICIAN JENNY Final Result JENNY * COLONOSCOPY SCREENING (12/09/2024 8:38 AM EDT) Anatomical Region Laterality Modality Other 12/09/2024 8:38 AM EDT [facility] 12/09/2024 9:01 AM EDT [facility] Gastrointestinal Endoscopy Patient Name: Meredith Chaidez Procedure Date: 12/09/2024 8:38 AM Date of : 1970 Admit Type: Outpatient Age: 54 Gender: Female Note Status: Finalized Attending MD: Roland eRyes Jr, DO, [id number] Procedure: Colonoscopy Indications: High risk colon cancer surveillance: Personal history of adenomatous colonic polyps Providers: Roland Reyes Jr, DO Patient Profile: This is a 54 year old female. Refer to note in patient chart for documentation of history and physical. Last Colonoscopy: 5 years ago. Referring Physician: Roland Reyes Jr, DO (Referring MD) Medicines: Propofol per Anesthesia, Monitored Anesthesia Care Complications: No immediate complications. Requesting Provider: Procedure: Pre-Anesthesia Assessment: - Prior to the procedure, a History and Physical was performed, and patient medications and allergies were reviewed. The patient's tolerance of previous anesthesia was also reviewed. The risks and benefits of the procedure and the sedation options and risks were discussed with the patient. All questions were answered, and informed consent was obtained. Prior Anticoagulants: The patient has taken no anticoagulant or antiplatelet agents. ASA Grade Assessment: III - A patient with severe systemic disease. After reviewing the risks and benefits, the patient was deemed in satisfactory condition to undergo the procedure. After I obtained informed consent, the scope was passed under direct vision. Throughout the procedure, the patient's blood pressure, pulse, and oxygen saturations were monitored continuously. The Colonoscope was introduced through the anus and advanced to the terminal ileum, with identification of the appendiceal orifice and IC valve. The colonoscopy was performed without difficulty. The patient tolerated the procedure well. The quality of the bowel preparation was adequate. The entire colon was examined. The terminal ileum, ileocecal valve, appendiceal orifice, and rectum were photographed. Scope Withdrawal Time: 0 hours 10 minutes 10 seconds Total Procedure Duration: 0 hours 14 minutes 58 seconds Findings: The digital rectal exam was normal. The terminal ileum appeared normal. Two sessile polyps were found in the ascending colon. The polyps were small (4-6 mm) in size. These polyps were removed with a cold snare. Resection and retrieval were complete. Two flat polyps were found in the recto-sigmoid colon. The polyps were diminutive (1-3 mm) in size. These polyps were removed with a jumbo cold forceps. Resection and retrieval were complete. A few small-mouthed diverticula were found in the sigmoid colon. No additional abnormalities were found on retroflexion. Moderate Sedation: MAC anesthesia was administered by the anesthesia team. Impression: - The examined portion of the ileum was normal. - Two small (4-6 mm) polyps in the ascending colon, removed with a cold snare. Resected and retrieved. - Two diminutive (1-3 mm) polyps at the recto-sigmoid colon, removed with a jumbo cold forceps. Resected and retrieved. - Diverticulosis in the sigmoid colon. Recommendation: - Discharge patient to home. - Resume regular diet. - Continue present medications. - Await pathology results. - Repeat colonoscopy in 3 - 5 years for surveillance. - Patient has a contact number available for emergencies. The signs and symptoms of potential delayed complications were discussed with the patient. Return to normal activities tomorrow. Written discharge instructions were provided to the patient. Procedure Code(s): --- Professional --- 82500, Colonoscopy, flexible; with removal of tumor(s), polyp(s), or other lesion(s) by snare technique 81803, 59, Colonoscopy, flexible; with biopsy, single or multiple Diagnosis Code(s): --- Professional --- Z12.11, Encounter for screening for malignant neoplasm of colon Z86.0101, Personal history of adenomatous and serrated colon polyps D12.2, Benign neoplasm of ascending colon D12.7, Benign neoplasm of rectosigmoid junction K57.30, Diverticulosis of large intestine without perforation or abscess without bleeding CPT copyright 2020 [place]. All rights reserved. The codes documented in this report are preliminary and upon quality assurance advisor review may be revised to meet current compliance requirements. Attending Participation: I personally performed the entire procedure. MD Roland Brown Jr, DO 12/09/2024 8:59:11 AM This report has been signed electronically by Roland Reyes Jr, DO Number of Addenda: 0 Note Initiated On: 12/09/2024 8:38 AM Procedure Start: 8:39:51 AM Procedure End: 8:54:49 AM us Roland Reyes Jr., DO DIGESTIVE DISEASE Final Re sult * HEPATITIS C ANTIBODY IA WITH CONFIRMATION (10/27/2024 12:44 PM EDT) Hep C Antibody IA Negative Negative 10/27/2024 7:29 PM EDT [facility] Comment:The result suggests no evidence of infection with Hepatitis C virus. Should recent infection be suspected, repeat testing may be considered 4-6 weeks after this draw. Blood BLOOD SPECIMEN / Unknown Venipuncture / Unknown 10/27/2024 12:44 PM EDT 10/27/2024 12:46 PM EDT us Eugene Del Castillo MD LABORATORY Final Result [facility] [address] [place] [address], [place] from Last 3 Months or Most Recently Relevant to Health Maintenance Insurance MEDICARE Advance Directives * Full Code (Latest Code Status on File) Date Activated Date Inactivated Comments 09/01/2024 10:45 AM 09/09/2024 7:59 PM Question Answer Comments Full Code Order Discussed With: Patient Care Teams Youth Program Director Relationship Specialty Start Date End Date Edil Mendoza DO [address] [place] [address] PCP - General Family Medicine 06/23/24
--- OUTSIDE RECORDS SUMMARY | 2025-04-05 10:23 | XMS_ITS | Encounter Summary ---
Author Organization [facility] Address [address] [place] [address] Care Team Providers Care Belt Tender Name Role Phone RejiEdil Primary Care Provider [phone] Source Comments In the event this information is protected by the Federal Confidentiality of Alcohol and Drug AbusePatient Records regulations: The Federal rules restrict any use of the information to criminally investigate or prosecute any alcohol or drug abuse patient.[facility] Encounter Details Date Type Department Care Team (Late st Contact Info) Description 12/01/2024 Patient Msg [facility] [place] [address] [facility] [address] [place] [address] Provider, [facility] EGD and Colonoscopy prep instructions Social History Tobacco Use Types Packs/Day Years [...] is lower risk 3 06/24/2024 Data from: https://www.neighborhoodatlas.[facility].edu/. Last address used for calculation [address] [...] 9:00 AM EDT Office Visit Gastroenterology [address] [address] Vicki Barajas APRN.[employer] [address] [place] [address] Dysphagia, unspecified type [R13.10] 04/18/2025 9:15 AM EDT Appointment Radiology [address] [id number] Interstitial pulmonary disease (HCC) [J84.9] 04/19/2025 9:00 AM EDT Office Visit Urology [address] [address] Diane Sanchez APRN.[employer] [address] [place] [address] kidney stones ( RS FROM 8-5) AWARE MAIN 04/20/2025 1:00 PM EDT Office Visit Otolaryngology [address] [address] Aldair Germain, PhD, [facility] [address] [place] [address] vocal cord dysfunction 04/21/2025 8:25 AM EDT Office Visit Otolaryngology [address] [address] Ruddy Palacios MD [address] [place] [address] Return in about 6 weeks (around 01/03/2025). 04/27/2025 10:00 AM EDT Procedure Pulmonary Medicine [address] [address] Est pt Asthma per Dr. Sarmiento (60min) 04/27/2025 10:15 AM EDT Procedure Pulmonary Medicine [address] [address] Est pt Asthma per Dr. Sarmiento (60min) 04/27/2025 10:30 AM EDT Procedure Pulmonary Medicine [address] [address] Est pt Asthma per Dr. Sarmiento (60min) 04/27/2025 11:00 AM EDT Office Visit Pulmonary Medicine [address] [address] Austin Sarmiento MD [address] [place] [address] Est pt Asthma per Dr. Sarmiento (60min) 05/03/2025 11:20 AM EDT Office Visit Otolaryngology [address] [place] [address] Evelina Gomes PA-C [address] [place] [address] wax cleaning 05/18/2025 3:00 PM EDT Office Visit Neurology [address] [place] [address] [place] [address] [place] [address] Numbness 07/08/2025 8:45 PM EST Office Visit Neurology [address] [place] [address] Main, Psg Neur [address] [place] [address] NICOLE (obstructive sleep apnea) [G47.33] 2025 10:20 AM EST Office Visit Gastroenterology [address] [place] [address] Lennie Clark MD, PhD [address] [place] [address] GASTRIC ISSUES 09/09/2025 9:40 AM EST Office Visit Gastroenterology [address] [address] Roland Reyes Jr., DO [address] [place] [address] Dyspepsia documented as of this encounter Visit Diagnoses Not on filedocumented in this encounter Care Teams Belt Tender Relationship Specialty Start Date End Date Edil Mendoza DO [address] [place] [address] PCP - General Family Medicine 06/23/24 documented as of this encounter
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
--- OUTSIDE RECORDS SUMMARY | 2025-04-05 10:23 | XMS_ITS | Encounter Summary ---
Author Organization [facility] Address [address] [place] [address] Care Team Providers Care News Agent Name Role Phone RejiEdil Primary Care Provider [phone] Source Comments In the event this information is protected by the Federal Confidentiality of Alcohol and Drug AbusePatient Records regulations: The Federal rules restrict any use of the information to criminally investigate or prosecute any alcohol or drug abuse patient.[facility] Encounter Details Date Type Department Care Team (Late st Contact Info) Description 12/01/2024 GI Preprocedure Call [facility] [place] [address] [place] [address] Roland Reyes Jr., [address] [place] [address] Social History Tobacco Use Types Packs/Day Years [...] is lower risk 3 06/24/2024 Data from: https://www.neighborhoodatlas.medicine.[facility]/. Last address used for calculation [address] [...] 9:00 AM EDT Office Visit Gastroenterology [address] [place] [address] Vicki Barajas, WATERPROOFING MACHINE OPERATOR.ROVING CHANGER [address] [place] [address] Dysphagia, unspecified type [R13.10] 04/18/2025 9:15 AM EDT Appointment Radiology [address] [place] [address] Interstitial pulmonary disease (HCC) [J84.9] 04/19/2025 9:00 AM EDT Office Visit Urology [address] [address] Diane Sanchez, WATERPROOFING MACHINE OPERATOR.ROVING CHANGER [address] [place] [address] kidney stones ( RS FROM 8-5) AWARE MAIN 04/20/2025 1:00 PM EDT Office Visit Otolaryngology [address] [address] Aldair Germain, PhD, [facility] THERAPIST [address] [place] [address] vocal cord dysfunction 04/21/2025 8:25 AM EDT Office Visit Otolaryngology [address] [address] Ruddy Palacios MD [address] [place] [address] Return in about 6 weeks (around 01/03/2025). 04/27/2025 10:00 AM EDT Procedure Pulmonary Medicine [address] [place] [address] Est pt Asthma per Dr. Sarmiento (60min) 04/27/2025 10:15 AM EDT Procedure Pulmonary Medicine [address] [address] Est pt Asthma per Dr. Sarmiento (60min) 04/27/2025 10:30 AM EDT Procedure Pulmonary Medicine [address] [address] Est pt Asthma per Dr. Sarmiento (60min) 04/27/2025 11:00 AM EDT Office Visit Pulmonary Medicine [address] [address] Austin Sarmiento MD [address] [place] [address] Est pt Asthma per Dr. Sarmiento (60min) 05/03/2025 11:20 AM EDT Office Visit Otolaryngology [address] [place] [address] Evelina Gomes PA-C [address] [place] [address] wax cleaning 05/18/2025 3:00 PM EDT Office Visit Neurology [address] [place] [address] [place] [address] [place] [address] Numbness 07/08/2025 8:45 PM EST Office Visit Neurology [address] [place] [address] Main, Psg Neur [address] [place] [address] NICOLE (obstructive sleep apnea) [G47.33] 2025 10:20 AM EST Office Visit Gastroenterology [address] [place] [address] Lennie Clark MD, PhD [address] [place] [address] GASTRIC ISSUES 09/09/2025 9:40 AM EST Office Visit Gastroenterology [address] [place] [address] Roland Reyes Jr., DO [address] [place] [phone] Dyspepsia documented as of this encounter Visit Diagnoses Not on filedocumented in this encounter Care Teams News Agent Relationship Specialty Start Date End Date Edil Mendoza DO [address] [place] [address] PCP - General Family Medicine 06/23/24 documented as of this encounter
--- OUTSIDE RECORDS SUMMARY | 2025-04-05 10:23 | XMS_ITS | Encounter Summary ---
Author Organization [facility] Address [facility] [place] [address] Care Team Providers Care Ceo And Founder Name Role Phone RejiEdil Primary Care Provider [phone] Source Comments In the event this information is protected by the Federal Confidentiality of Alcohol and Drug AbusePatient Records regulations: The Federal rules restrict any use of the information to criminally investigate or prosecute any alcohol or drug abuse patient.[facility] Encounter Details Date Type Department Care Team (Late st Contact Info) Description 11/18/2024 Patient Msg Gastroenterology [address] [place] [place] [id number] Provider, Ccf recommendations Social History Tobacco Use Types Packs/Day Years [...] is lower risk 3 06/24/2024 Data from: https://www.neighborhoodatlas.[facility]/. Last address used for calculation [address] [...] 9:00 AM EDT Office Visit Gastroenterology [address] [address] Vicki Barajas APRN.CIVIL ENGINEERING TEACHER [address] [place] [address] Dysphagia, unspecified type [R13.10] 04/18/2025 9:15 AM EDT Appointment Radiology [address] [place] [id number] Interstitial pulmonary disease (HCC) [J84.9] 04/19/2025 9:00 AM EDT Office Visit Urology [address] [address] Diane Sanchez, LEGAL BILLING COORDINATOR.CIVIL ENGINEERING TEACHER [address] [place] [address] kidney stones ( RS FROM 8-5) AWARE MAIN 04/20/2025 1:00 PM EDT Office Visit Otolaryngology [address] [address] Aldair Germain, PhD, [facility] [address] [place] [address] vocal cord dysfunction 04/21/2025 8:25 AM EDT Office Visit Otolaryngology [address] [address] Ruddy Palacios MD [address] [place] [address] Return in about 6 weeks (around 01/03/2025). 04/27/2025 10:00 AM EDT Procedure Pulmonary Medicine [address] [address] Est pt Asthma per Dr. Sarmiento (60min) 04/27/2025 10:15 AM EDT Procedure Pulmonary Medicine [address] [address] Est pt Asthma per Dr. Sarmiento (60min) 04/27/2025 10:30 AM EDT Procedure Pulmonary Medicine [address] [address] Est pt Asthma per Dr. Sarmiento (60min) 04/27/2025 11:00 AM EDT Office Visit Pulmonary Medicine [address] [address] Austin Sarmiento MD [address] [place] [address] Est pt Asthma per Dr. Sarmiento (60min) 05/03/2025 11:20 AM EDT Office Visit Otolaryngology [address] [place] [address] Evelina Gomes PA-C [address] [place] [address] wax cleaning 05/18/2025 3:00 PM EDT Office Visit Neurology [address] [place] [address] [place] [address] [place] [address] Numbness 07/08/2025 8:45 PM EST Office Visit Neurology [address] [place] [address] Main, Psg Neur [address] [place] [address] NICOLE (obstructive sleep apnea) [G47.33] 2025 10:20 AM EST Office Visit Gastroenterology [address] [place] [address] Lennie Clark MD, PhD [address] [place], [place] [phone] GASTRIC ISSUES 09/09/2025 9:40 AM EST Office Visit Gastroenterology [address] [place] [address] Roland Reyes Jr., DO [address] [place] [address] Dyspepsia documented as of this encounter Visit Diagnoses Not on filedocumented in this encounter Care Teams Ceo And Founder Relationship Specialty Start Date End Date Edil Mendoza DO [address] [place] [address] PCP - General Family Medicine 06/23/24 documented as of this encounter
--- OUTSIDE RECORDS SUMMARY | 2025-04-05 10:23 | XMS_ITS | Encounter Summary ---
Author Organization [facility] Address [address] [place] [address] Care Team Providers Care Fighting Vehicle Infantryman Name Role Phone RejiEdil Primary Care Provider [phone] Source Comments In the event this information is protected by the Federal Confidentiality of Alcohol and Drug AbusePatient Records regulations: The Federal rules restrict any use of the information to criminally investigate or prosecute any alcohol or drug abuse patient.[facility] Encounter Details Date Type Department Care Team (Late st Contact Info) Description 12/01/2024 Patient [facility] [place] [address] Laura Shabazz RPh At your next appointment, choose [facility]. Social History Tobacco Use Types Packs/Day Years [...] is lower risk 3 06/24/2024 Data from: https://www.neighborhoodatlas.[facility]/. Last address used for calculation [address] [...] 9:00 AM EDT Office Visit Gastroenterology [address] [address] Vicki Barajas APRN.EBD SPECIAL EDUCATION TEACHER [address] [place] [address] Dysphagia, unspecified type [R13.10] 04/18/2025 9:15 AM EDT Appointment Radiology [address] [place], [place] [phone] Interstitial pulmonary disease (HCC) [J84.9] 04/19/2025 9:00 AM EDT Office Visit Urology [address] [address] Diane Sanchez, ELECTRONICS DETAIL DRAFTSPERSON.EBD SPECIAL EDUCATION TEACHER [address] [place], [place] [id number] kidney stones ( RS FROM 8-5) AWARE MAIN 04/20/2025 1:00 PM EDT Office Visit Otolaryngology [address] [address] Aldair Germain, PhD, [facility] MANAGER [address] [place] [address] vocal cord dysfunction 04/21/2025 8:25 AM EDT Office Visit Otolaryngology [address] [address] Ruddy Palacios MD [address] [place] [address] Return in about 6 weeks (around 01/03/2025). 04/27/2025 10:00 AM EDT Procedure Pulmonary Medicine [address] [address] Est pt Asthma per Dr. Sarmiento (60min) 04/27/2025 10:15 AM EDT Procedure Pulmonary Medicine [address] [address] Est pt Asthma per Dr. Sarmiento (60min) 04/27/2025 10:30 AM EDT Procedure Pulmonary Medicine [address] [address] Est pt Asthma per Dr. Sarmiento (60min) 04/27/2025 11:00 AM EDT Office Visit Pulmonary Medicine [address] [address] Austin Sarmiento MD [address] [place] [address] Est pt Asthma per Dr. Sarmiento (60min) 05/03/2025 11:20 AM EDT Office Visit Otolaryngology [address] [place] [address] Evelina Gomes PA-C [address] [place] [address] wax cleaning 05/18/2025 3:00 PM EDT Office Visit Neurology [address] [place] [address] [place] [address] [place] [address] Numbness 07/08/2025 8:45 PM EST Office Visit Neurology [address] [place] [address] Main, Psg Neur [address] [place] [address] NICOLE (obstructive sleep apnea) [G47.33] 2025 10:20 AM EST Office Visit Gastroenterology [address] [place] [address] Lennie Clark MD, PhD [address] [place] [address] GASTRIC ISSUES 09/09/2025 9:40 AM EST Office Visit Gastroenterology [address] [place] [address] Roland Reyes Jr., DO [address] [place] [address] Dyspepsia documented as of this encounter Visit Diagnoses Not on filedocumented in this encounter Care Teams Fighting Vehicle Infantryman Relationship Specialty Start Date End Date Edil Mendoza DO [address] [facility] [address] PCP - General Family Medicine 06/23/24 documented as of this encounter
--- OUTSIDE RECORDS SUMMARY | 2025-04-05 10:23 | XMS_ITS | Encounter Summary ---
Author Organization [facility] Address [address] [place] [address] Care Team Providers Care Microbiology Soil Scientist Name Role Phone RejiEdil Primary Care Provider Source Comments In the event this information is protected by the Federal Confidentiality of Alcohol and Drug AbusePatient Records regulations: The Federal rules restrict any use of the information to criminally investigate or prosecute any alcohol or drug abuse patient.[facility] Encounter Details Date Type Department Care Team (Late st Contact Info) Description 01/12/2025 Patient Msg Internal Medicine [address] [place] [address] Provider, Ccf APPOINTMENT CANCELLED Social History Tobacco Use Types Packs/Day Years [...] is lower risk 3 06/24/2024 Data from: https://www.neighborhoodatlas.[facility].edu/. Last address used for calculation [address] [...] 9:00 AM EDT Office Visit Gastroenterology [address] [address] Vicki Barajas APRN.[facility] 0320 [place] [address] Dysphagia, unspecified type [R13.10] 04/18/2025 9:15 AM EDT Appointment Radiology [address] [place] [id number] Interstitial pulmonary disease (HCC) [J84.9] 04/19/2025 9:00 AM EDT Office Visit Urology [address] [address] Diane Sanchez APRN.[facility] 9500 [place] [address] kidney stones ( RS FROM 8-5) AWARE MAIN 04/20/2025 1:00 PM EDT Office Visit Otolaryngology [address] [address] Aldair Germain, PhD, [facility] 9504 [place], [place] [id number] vocal cord dysfunction 04/21/2025 8:25 AM EDT Office Visit Otolaryngology [address] [address] Ruddy Palacios MD 4381 [place], [place] [id number] Return in about 6 weeks (around 01/03/2025). 04/27/2025 10:00 AM EDT Procedure Pulmonary Medicine [address] [address] Est pt Asthma per Dr. Sarmiento (60min) 04/27/2025 10:15 AM EDT Procedure Pulmonary Medicine [address] [address] Est pt Asthma per Dr. Sarmiento (60min) 04/27/2025 10:30 AM EDT Procedure Pulmonary Medicine [address] [address] Est pt Asthma per Dr. Sarmiento (60min) 04/27/2025 11:00 AM EDT Office Visit Pulmonary Medicine [address] [address] Austin Sarmiento MD 5392 [place] [address] Est pt Asthma per Dr. Sarmiento (60min) 05/03/2025 11:20 AM EDT Office Visit Otolaryngology 5700 [place] [address] Evelina Gomes PA-C 5700 [place] [address] wax cleaning 05/18/2025 3:00 PM EDT Office Visit Neurology [address] [place] [address] [place] [address] [place] [address] Numbness 07/08/2025 8:45 PM EST Office Visit Neurology 8800 [place] [address] Main, Psg Neur 8800 [place] [address] NICOLE (obstructive sleep apnea) [G47.33] 2025 10:20 AM EST Office Visit Gastroenterology [address] [place] [address] Lennie Clark MD, PhD 9500 [place] [address] GASTRIC ISSUES 09/09/2025 9:40 AM EST Office Visit Gastroenterology [address] [place] [address] Roland Reyes Jr., DO [address] [place] [address] Dyspepsia documented as of this encounter Visit Diagnoses Not on filedocumented in this encounter Care Teams Microbiology Soil Scientist Relationship Specialty Start Date End Date Edil Mendoza DO [address] [place] [address] PCP - General Family Medicine 06/23/24 documented as of this encounter
--- OUTSIDE RECORDS SUMMARY | 2025-04-05 10:23 | XMS_ITS | Encounter Summary ---
Author Organization [facility] Address [facility] [place] [address] Care Team Providers Care Surface Grinder Name Role Phone RejiEdil Primary Care Provider [phone] Source Comments In the event this information is protected by the Federal Confidentiality of Alcohol and Drug AbusePatient Records regulations: The Federal rules restrict any use of the information to criminally investigate or prosecute any alcohol or drug abuse patient.[facility] Encounter Details Date Type Department Care Team ([facility] Contact Info) Description 12/01/2024 [place] [address] Provider, Ccf Important information about your scheduled Allergy and Immunology appointment Social History Tobacco Use Types Packs/Day Years [...] is lower risk 3 06/24/2024 Data from: https://www.neighborhoodatlas.[facility]/. Last address used for calculation [address] [...] 9:00 AM EDT Office Visit Gastroenterology [address] [address] Vicki Barajas APRN.COMPOSITION ROOFER [address] [place] [address] Dysphagia, unspecified type [R13.10] 04/18/2025 9:15 AM EDT Appointment Radiology 5700 [place] [address] Interstitial pulmonary disease (HCC) [J84.9] 04/19/2025 9:00 AM EDT Office Visit Urology [address] [address] Diane Sanchez, VENDING MACHINE COIN COLLECTOR.COMPOSITION ROOFER 9500 [place] [address] kidney stones ( RS FROM 8-5) AWARE MAIN 04/20/2025 1:00 PM EDT Office Visit Otolaryngology [address] [address] Aldair Germain, PhD, [facility]IN[facility] 9500 [place] [address] vocal cord dysfunction 04/21/2025 8:25 AM EDT Office Visit Otolaryngology [address] [address] Ruddy Palacios MD 5[address] [place], [place] [address] Return in about 6 weeks (around 01/03/2025). 04/27/2025 10:00 AM EDT Procedure Pulmonary Medicine [address] [address] Est pt Asthma per Dr. Sarmiento (60min) 04/27/2025 10:15 AM EDT Procedure Pulmonary Medicine [address] [address] Est pt Asthma per Dr. Sarmiento (60min) 04/27/2025 10:30 AM EDT Procedure Pulmonary Medicine [address] [address] Est pt Asthma per Dr. Sarmiento (60min) 04/27/2025 11:00 AM EDT Office Visit Pulmonary Medicine [address] [address] Austin Sarmiento MD 1361 [place] [address] Est pt Asthma per Dr. Sarmiento (60min) 05/03/2025 11:20 AM EDT Office Visit Otolaryngology 5700 [place] [address] Evelina Gomes PA-C 5700 [place] [address] wax cleaning 05/18/2025 3:00 PM EDT Office Visit Neurology 25[address] [place] [address] [place] [address] [place] [address] Numbness 07/08/2025 8:45 PM EST Office Visit Neurology 8800 [place] [address] Main, Psg Neur 8800 [place] [address] NICOLE (obstructive sleep apnea) [G47.33] 2025 10:20 AM EST Office Visit Gastroenterology [address] [place] [address] Lennie Clark MD, PhD 9500 [place], [place] [phone] GASTRIC ISSUES 09/09/2025 9:40 AM EST Office Visit Gastroenterology 5334 [facility] [place] [address] Roland Reyes Jr., DO [address] [place] [address] Dyspepsia documented as of this encounter Visit Diagnoses Not on filedocumented in this encounter Care Teams Surface Grinder Relationship Specialty Start Date End Date Edil Mendoza DO [address] [place] [address] PCP - General Family Medicine 06/23/24 documented as of this encounter
--- OUTSIDE RECORDS SUMMARY | 2025-04-05 10:23 | XMS_ITS | Encounter Summary ---
Author Organization [facility] Address [address] [place] [address] Care Team Providers Care Finance Advisor Name Role Phone RejiEdil Primary Care Provider Source Comments In the event this information is protected by the Federal Confidentiality of Alcohol and Drug AbusePatient Records regulations: The Federal rules restrict any use of the information to criminally investigate or prosecute any alcohol or drug abuse patient.[facility] Encounter Details Date Type Department Care Team (Late Contact Info) Description 11/09/2024 Patient Msg Allergy [facility] [place] [address] Evonne Bowser MD 5172 [place] [address] Appointment Request Social History Tobacco [...] is lower risk 3 06/24/2024 Data from: https://www.neighborhoodatlas.medicine.[facility]/. Last address used for calculation [address] [...] 9:00 AM EDT Office Visit Gastroenterology [address] [address] Vicki Barajas APRN.TOOTH INSPECTOR 0777 [place] [address] Dysphagia, unspecified type [R13.10] 04/18/2025 9:15 AM EDT Appointment Radiology 5700 [place] [address] Interstitial pulmonary disease (HCC) [J84.9] 04/19/2025 9:00 AM EDT Office Visit Urology [address] [address] Diane Sanchez, DRIVER SALESMAN.TOOTH INSPECTOR 9500 [place] [address] kidney stones ( RS FROM 8-5) AWARE MAIN 04/20/2025 1:00 PM EDT Office Visit Otolaryngology [address] [address] Aldair Germain, PhD, [facility] 9500 [place] [address] vocal cord dysfunction 04/21/2025 8:25 AM EDT Office Visit Otolaryngology [address] [address] Ruddy Palacios MD 9500 [place] [address] Return in about 6 weeks (around 01/03/2025). 04/27/2025 10:00 AM EDT Procedure Pulmonary Medicine [address] [address] Est pt Asthma per Dr. Sarmiento (60min) 04/27/2025 10:15 AM EDT Procedure Pulmonary Medicine [address] [address] Est pt Asthma per Dr. Sarmiento (60min) 04/27/2025 10:30 AM EDT Procedure Pulmonary Medicine [address] [address] Est pt Asthma per Dr. Sarmiento (60min) 04/27/2025 11:00 AM EDT Office Visit Pulmonary Medicine [address] [address] Austin Sarmiento MD 9500 [place], [place] [id number] Est pt Asthma per Dr. Sarmiento (60min) 05/03/2025 11:20 AM EDT Office Visit Otolaryngology 5700 [place] [address] Evelina Gomes PA-C 5700 [place] [address] wax cleaning 05/18/2025 3:00 PM EDT Office Visit Neurology [address] [place] [address] [place] [address] [place] [address] Numbness 07/08/2025 8:45 PM EST Office Visit Neurology 8800 [place] [address] Main, Psg Neur 8800 [place] [address] NICOLE (obstructive sleep apnea) [G47.33] 2025 10:20 AM EST Office Visit Gastroenterology [address] [place] [address] Lennie Clark MD, PhD 9500 [place], [place] [address] GASTRIC ISSUES 09/09/2025 9:40 AM EST Office Visit Gastroenterology [address] [facility] [place] [address] Roland Reyes Jr., DO [address] [place] [address] Dyspepsia documented as of this encounter Visit Diagnoses Not on filedocumented in this encounter Care Teams Finance Advisor Relationship Specialty Start Date End Date Edil Mendoza [place] [address] PCP - General Family Medicine 06/23/24 documented as of this encounter
--- OUTSIDE RECORDS SUMMARY | 2025-04-05 10:23 | XMS_ITS | Encounter Summary ---
Author Organization [facility] Address [facility] [place] [address] Care Team Providers Care Aviation Electronic Warfare Operator Name Role Phone Edil Mendoza Primary Care Provider [phone] Source Comments In the event this information is protected by the Federal Confidentiality of Alcohol and Drug AbusePatient Records regulations: The Federal rules restrict any use of the information to criminally investigate or prosecute any alcohol or drug abuse patient.[facility] Encounter Details Date Type Department Care Team (Late st Contact Info) Description 11/08/2024 Patient Msg Pulmonary Medicine [address] [place] [phone] Gabi Marroquin APRN.[facility] 9500 [facility]. [place] [phone] Appointment Request Social History Tobacco Use Types [...] is lower risk 3 06/24/2024 Data from: https://www.neighborhoodatlas.medicine.[facility]/. Last address used for calculation [...] 9:00 AM EDT Office Visit Gastroenterology 2048 [place] [phone] Vicki Barajas, CARLOS ALBERTO.TIMBER SELECTOR 9500 [place] [address] Dysphagia, unspecified type [R13.10] 04/18/2025 9:15 AM EDT Appointment Radiology 5700 [place] [address] Interstitial pulmonary disease (HCC) [J84.9] 04/19/2025 9:00 AM EDT Office Visit Urology [address] [address] Diane Sanchez, MARKET RESEARCH COORDINATOR.TIMBER SELECTOR 9500 [place] [address] kidney stones ( RS FROM 8-5) AWARE MAIN 04/20/2025 1:00 PM EDT Office Visit Otolaryngology [address] [address] Aldair Germain, PhD, [facility] 9500 [place] [address] vocal cord dysfunction 04/21/2025 8:25 AM EDT Office Visit Otolaryngology [address] [address] Ruddy Palacios MD 9500 [place] [address] Return in about 6 weeks (around 01/03/2025). 04/27/2025 10:00 AM EDT Procedure Pulmonary Medicine [address] [address] Est pt Asthma per Dr. Sarmiento (60min) 04/27/2025 10:15 AM EDT Procedure Pulmonary Medicine [address] [address] Est pt Asthma per Dr. Sarmiento (60min) 04/27/2025 10:30 AM EDT Procedure Pulmonary Medicine [address] [address] Est pt Asthma per Dr. Sarmietno (60min) 04/27/2025 11:00 AM EDT Office Visit Pulmonary Medicine [address] [address] Austin Sarmiento MD [address]00 [place], [place] [address]85[address] Est pt Asthma per Dr. Sarmiento (60min) 05/03/2025 11:20 AM EDT Office Visit Otolaryngology 5700 [place] [address] Evelina Gomes PA-C 5700 [place] [address] wax cleaning 05/18/2025 3:00 PM EDT Office Visit Neurology [address]681 [place] [address] [place] [address] [place] [address] Numbness 07/08/2025 8:45 PM EST Office Visit Neurology 8800 [place] [address] Main, Psg Neur 8800 [place] [address] NICOLE (obstructive sleep apnea) [G47.33] 2025 10:20 AM EST Office Visit Gastroenterology [address] [place] [address] Lennie Clark MD, PhD 9500 [place], [place] [address] GASTRIC ISSUES 09/09/2025 9:40 AM EST Office Visit Gastroenterology [address] [place] [address] Roland Reyes Jr., DO [address] [place] [address] Dyspepsia documented as of this encounter Visit Diagnoses Not on filedocumented in this encounter Care Teams Aviation Electronic Warfare Operator Relationship Specialty Start Date End Date Edil Mendoza DO [address] [place] [address] PCP - General Family Medicine 06/23/24 documented as of this encounter
--- OUTSIDE RECORDS SUMMARY | 2025-04-05 10:23 | XMS_ITS | Encounter Summary ---
Author Organization [facility] Address [address] [place] [address] Care Team Providers Care Drain Tiler Name Role Phone Shayne Bush PT Unavailable [phone] Encounter Details Date Type Department Care Team (Late st Contact Info) Description 02/19/2023 [facility] [address] [place] [address] Carlo Andrews, DO [address] [facility] [place] [address] Social History Tobacco Use Types Packs/Day Years [...] on filedocumented in this encounter Care Teams Drain Tiler Relationship Specialty Start Date End Date Shayne Bush, PT [address] [place] [address] Physical Therapist Physical Therapy 04/15/23 documented as of this encounter
--- OUTSIDE RECORDS SUMMARY | 2025-04-05 10:23 | XMS_ITS | Encounter Summary ---
Author Organization [facility] Address [facility] [place] [address] Care Team Providers Care Budget Coordinator Name Role Phone RejiEdil Primary Care Provider [phone] Source Comments In the event this information is protected by the Federal Confidentiality of Alcohol and Drug AbusePatient Records regulations: The Federal rules restrict any use of the information to criminally investigate or prosecute any alcohol or drug abuse patient.[facility] Encounter Details Date Type Department Care Team ([facility] Contact Info) Description 11/14/2024 [place] [address] Provider, Ccf Important information about your scheduled [...] is lower risk 3 06/24/2024 Data from: https://www.neighborhoodatlas.[facility]/. Last address used for calculation 323 [...] 9:00 AM EDT Office Visit Gastroenterology [address] [address] Vicki Barajas APRN.ASSISTANT TODDLER TEACHER [address] [place] [address] Dysphagia, unspecified type [R13.10] 04/18/2025 9:15 AM EDT Appointment Radiology 5700 [place] [address] Interstitial pulmonary disease (HCC) [J84.9] 04/19/2025 9:00 AM EDT Office Visit Urology [address] [address] Diane Sanchez, BOOM PUMP OPERATOR.ASSISTANT TODDLER TEACHER 9500 [place] [address] kidney stones ( RS FROM 8-5) AWARE MAIN 04/20/2025 1:00 PM EDT Office Visit Otolaryngology [address] [address] Aldair Germain, PhD, [facility] TIRE CURER 9500 [place] [address] vocal cord dysfunction 04/21/2025 8:25 AM EDT Office Visit Otolaryngology [address] [address] Ruddy Palacios MD 7[address] [place], [place] [address] Return in about 6 weeks (around 01/03/2025). 04/27/2025 10:00 AM EDT Procedure Pulmonary Medicine [address] [address] Est pt Asthma per Dr. Sarmiento (60min) 04/27/2025 10:15 AM EDT Procedure Pulmonary Medicine [address] [address] Est pt Asthma per Dr. Sarmiento (60min) 04/27/2025 10:30 AM EDT Procedure Pulmonary Medicine [address] [address] Est pt Asthma per Dr. Sarmiento (60min) 04/27/2025 11:00 AM EDT Office Visit Pulmonary Medicine [address] [address] Austin Sarmiento MD 3667 [place] [address] Est pt Asthma per Dr. Sarmiento (60min) 05/03/2025 11:20 AM EDT Office Visit Otolaryngology 5700 [place] [address] Evelina Gomes PA-C 5700 [place] [address] wax cleaning 05/18/2025 3:00 PM EDT Office Visit Neurology [address] [place] [address] [place] [address] [place] [address] Numbness 07/08/2025 8:45 PM EST Office Visit Neurology 8800 [place] [address] Main, Psg Neur 8800 [place] [address] NICOLE (obstructive sleep apnea) [G47.33] 2025 10:20 AM EST Office Visit Gastroenterology 285[address] [place] [address] Lennie Clark MD, PhD 9500 [place], [place] [address] GASTRIC ISSUES 09/09/2025 9:40 AM EST Office Visit Gastroenterology [address] [place] [address] Roland Reyes Jr., DO [address] [place] [address] Dyspepsia documented as of this encounter Visit Diagnoses Not on filedocumented in this encounter Care Teams Budget Coordinator Relationship Specialty Start Date End Date Edil Mendoza DO [address] [place] [address] PCP - General Family Medicine 06/23/24 documented as of this encounter
--- OUTSIDE RECORDS SUMMARY | 2025-04-05 10:24 | XMS_ITS | Encounter Summary ---
Author Organization [facility] Address [facility] [place] [address] Care Team Providers Care Hand Woven Carpet And Rug Mender Name Role Phone RejiEdil Primary Care Provider [phone] Source Comments In the event this information is protected by the Federal Confidentiality of Alcohol and Drug AbusePatient Records regulations: The Federal rules restrict any use of the information to criminally investigate or prosecute any alcohol or drug abuse patient.[facility] Encounter Details Date Type Department Care Team (Late st Contact Info) Description 12/10/2024 Patient Msg Gastroenterology [address] [place] [id number] Provider, Ccf results Social History Tobacco Use [...] is lower risk 3 06/24/2024 Data from: https://www.neighborhoodatlas.[facility]/. Last address used for calculation [address] [...] 9:00 AM EDT Office Visit Gastroenterology [address] [address] Vicki Barajas APRN.AIR MOVING TECHNICIAN [address] [place] [address] Dysphagia, unspecified type [R13.10] 04/18/2025 9:15 AM EDT Appointment Radiology [address] [place] [id number] Interstitial pulmonary disease (HCC) [J84.9] 04/19/2025 9:00 AM EDT Office Visit Urology [address] [address] Diane Sanchez, GATE AGENT.AIR MOVING TECHNICIAN 9500 [place] [address] kidney stones ( RS FROM 8-5) AWARE MAIN 04/20/2025 1:00 PM EDT Office Visit Otolaryngology [address] [address] Aldair Germain, PhD, [facility] 9500 [place] [address] vocal cord dysfunction 04/21/2025 8:25 AM EDT Office Visit Otolaryngology [address] [address] Ruddy Palacios MD 6068 [place] [address] Return in about 6 weeks (around 01/03/2025). 04/27/2025 10:00 AM EDT Procedure Pulmonary Medicine [address] [address] Est pt Asthma per Dr. Sarmiento (60min) 04/27/2025 10:15 AM EDT Procedure Pulmonary Medicine [address] [address] Est pt Asthma per Dr. Sarmiento (60min) 04/27/2025 10:30 AM EDT Procedure Pulmonary Medicine [address] [address] Est pt Asthma per Dr. Sarmiento (60min) 04/27/2025 11:00 AM EDT Office Visit Pulmonary Medicine [address] [address] Austin Sarmiento MD [address]71 [place] [address] Est pt Asthma per Dr. Sarmiento (60min) 05/03/2025 11:20 AM EDT Office Visit Otolaryngology 5700 [place] [address] Evelina Gomes PA-C 5700 [place] [address] wax cleaning 05/18/2025 3:00 PM EDT Office Visit Neurology [address] [place] [address] [place] [address] [place] [address] Numbness 07/08/2025 8:45 PM EST Office Visit Neurology 8800 [place] [address] Main, Psg Neur 8800 [place] [address] NICOLE (obstructive sleep apnea) [G47.33] 2025 10:20 AM EST Office Visit Gastroenterology [address] [place] [address] Lennie Clark MD, PhD [address] [place], [place] [phone] GASTRIC ISSUES 09/09/2025 9:40 AM EST Office Visit Gastroenterology [address] [place] [address] Roland Reyes Jr., DO [address] [place] [address] Dyspepsia documented as of this encounter Visit Diagnoses Not on filedocumented in this encounter Care Teams Hand Woven Carpet And Rug Mender Relationship Specialty Start Date End Date Edil Mendoza DO [address] [place] [address] PCP - General Family Medicine 06/23/24 documented as of this encounter
--- OUTSIDE RECORDS SUMMARY | 2025-04-05 10:24 | XMS_ITS | Encounter Summary ---
Author Organization [facility] Address [address] [place] [address] Care Team Providers Care Central Office Equipment Installer Name Role Phone RejiEdil Primary Care Provider [phone] Source Comments In the event this information is protected by the Federal Confidentiality of Alcohol and Drug AbusePatient Records regulations: The Federal rules restrict any use of the information to criminally investigate or prosecute any alcohol or drug abuse patient.[facility] Encounter Details Date Type Department Care Team (Latest Contact Info) Description 03/22/2025 Travel Social History Tobacco Use Types Packs/Day Years [...] is lower risk 3 06/24/2024 Data from: https://www.neighborhoodatlas.medicine.[facility].edu/. Last address used for calculation [address] [facility] 06/24/2024 Comments No Sex and Gender [...] 9:00 AM EDT Office Visit Gastroenterology [address] [address] Vicki Barajas APRN.TAX ACCOUNTANT [address] [place] [address] Dysphagia, unspecified type [R13.10] 04/18/2025 9:15 AM EDT Appointment Radiology 5700 [place], [place] [id number] Interstitial pulmonary disease (HCC) [J84.9] 04/19/2025 9:00 AM EDT Office Visit Urology [address] [address] Diane Sanchez APRN.TAX ACCOUNTANT 9500 [place] [address] kidney stones ( RS FROM 8-5) AWARE MAIN 04/20/2025 1:00 PM EDT Office Visit Otolaryngology [address] [place] [id number] Aldair Germain, PhD, [facility] [address] [place] [phone] vocal cord dysfunction 04/21/2025 8:25 AM EDT Office Visit Otolaryngology [address] [address] Ruddy Palacios MD 5589 [place], [place] [address] Return in about 6 weeks (around 01/03/2025). 04/27/2025 10:00 AM EDT Procedure Pulmonary Medicine [address] [address] Est pt Asthma per Dr. Sarmiento (60min) 04/27/2025 10:15 AM EDT Procedure Pulmonary Medicine [address] [address] Est pt Asthma per Dr. Sarmiento (60min) 04/27/2025 10:30 AM EDT Procedure Pulmonary Medicine [address] [address] Est pt Asthma per Dr. Sarmiento (60min) 04/27/2025 11:00 AM EDT Office Visit Pulmonary Medicine [address] [address] Austin Sarmiento MD 4097 [place] [address] Est pt Asthma per Dr. Sarmiento (60min) 05/03/2025 11:20 AM EDT Office Visit Otolaryngology 5700 [place] [address] Evelina Gomes PA-C 5700 [place] [address] wax cleaning 05/18/2025 3:00 PM EDT Office Visit Neurology [address] [place] [address] [place] [address] [place] [address] Numbness 07/08/2025 8:45 PM EST Office Visit Neurology 8800 [place] [address] Main, Psg Neur 8800 [place] [address] NICOLE (obstructive sleep apnea) [G47.33] 2025 10:20 AM EST Office Visit Gastroenterology [address] [place] [address] Lennie Clark MD, PhD 9500 [place] [address] GASTRIC ISSUES 09/09/2025 9:40 AM EST Office Visit Gastroenterology [address] [facility] [address] Roland Reyes Jr., DO [address] [facility] [address] [place] [address] Dyspepsia documented as of this encounter Visit Diagnoses Not on filedocumented in this encounter Care Teams Central Office Equipment Installer Relationship Specialty Start Date End Date Edil Mendoza DO [address] [place] [address] PCP - General Family Medicine 06/23/24 documented as of this encounter
--- OUTSIDE RECORDS SUMMARY | 2025-04-05 10:24 | XMS_ITS | Encounter Summary ---
Author Organization [facility] Address [facility] [place] [address] Care Team Providers Care Beauty Operator Apprentice Name Role Phone RejiEdil Primary Care Provider [phone] Source Comments In the event this information is protected by the Federal Confidentiality of Alcohol and Drug AbusePatient Records regulations: The Federal rules restrict any use of the information to criminally investigate or prosecute any alcohol or drug abuse patient.[facility] Encounter Details Date Type Department Care Team (Late st Contact Info) Description 01/17/2025 Get Medical Advice Nutrition Therapy [address] [place] [id number] Provider, Ccf Missed appointment Social History Tobacco Use Types Packs/Day [...] is lower risk 3 06/24/2024 Data from: https://www.neighborhoodatlas.[facility]/. Last address used for calculation 323 [...] 9:00 AM EDT Office Visit Gastroenterology [address] [address] Vicki Barajas APRN.TECHNICAL ACCOUNT EXECUTIVE [address] [place] [address] Dysphagia, unspecified type [R13.10] 04/18/2025 9:15 AM EDT Appointment Radiology [address] [place] [id number] Interstitial pulmonary disease (HCC) [J84.9] 04/19/2025 9:00 AM EDT Office Visit Urology [address] [address] Diane Sanchez, LOT ASSOCIATE.TECHNICAL ACCOUNT EXECUTIVE 9500 [place] [address] kidney stones ( RS FROM 8-5) AWARE MAIN 04/20/2025 1:00 PM EDT Office Visit Otolaryngology [address] [address] Aldair Germain, PhD, [facility] 9500 [place] [address] vocal cord dysfunction 04/21/2025 8:25 AM EDT Office Visit Otolaryngology [address] [address] Ruddy Palacios MD [address]67 [place] [address] Return in about 6 weeks (around 01/03/2025). 04/27/2025 10:00 AM EDT Procedure Pulmonary Medicine [address] [address] Est pt Asthma per Dr. Sarmiento (60min) 04/27/2025 10:15 AM EDT Procedure Pulmonary Medicine [address] [address] Est pt Asthma per Dr. Sarmiento (60min) 04/27/2025 10:30 AM EDT Procedure Pulmonary Medicine [address] [address] Est pt Asthma per Dr. Sarmiento (60min) 04/27/2025 11:00 AM EDT Office Visit Pulmonary Medicine [address] [address] Austin Sarmiento MD 8859 [place] [address] Est pt Asthma per Dr. Sarmiento (60min) 05/03/2025 11:20 AM EDT Office Visit Otolaryngology 5700 [place] [address] Evelina Gomes PA-C 5700 [place] [address] wax cleaning 05/18/2025 3:00 PM EDT Office Visit Neurology [address] [place] [address] [place] [address] [place] [address] Numbness 07/08/2025 8:45 PM EST Office Visit Neurology 8800 [place] [address] Main, Psg Neur 8800 [place] [address] NICOLE (obstructive sleep apnea) [G47.33] 2025 10:20 AM EST Office Visit Gastroenterology [address] [place] [address] Lennie Clark MD, PhD 9500 [place], [place] [address] GASTRIC ISSUES 09/09/2025 9:40 AM EST Office Visit Gastroenterology [address] [place] [address] Roland Reyes Jr., DO [address] [place] [address] Dyspepsia documented as of this encounter Visit Diagnoses Not on filedocumented in this encounter Care Teams Beauty Operator Apprentice Relationship Specialty Start Date End Date Edil Mendoza DO [address] [place] [address] PCP - General Family Medicine 06/23/24 documented as of this encounter
--- OUTSIDE RECORDS SUMMARY | 2025-04-05 10:24 | XMS_ITS | Encounter Summary ---
Author Organization [facility] Address [facility] [place] [address] Care Team Providers Care Alum Plant Operator Name Role Phone RejiEdil Primary Care Provider [phone] Source Comments In the event this information is protected by the Federal Confidentiality of Alcohol and Drug AbusePatient Records regulations: The Federal rules restrict any use of the information to criminally investigate or prosecute any alcohol or drug abuse patient.[facility] Encounter Details Date Type Department Care Team ([facility] Contact Info) Description 12/09/2024 [place] [address] Provider, Ccf Important information about your scheduled [...] is lower risk 3 06/24/2024 Data from: https://www.neighborhoodatlas.[facility]/. Last address used for calculation 323 [...] AM EDT Office Visit Gastroenterology [address] [address] Vicki Barajas APRN.CONTINUITY PERSON [address] [place] [address] Dysphagia, unspecified type [R13.10] 04/18/2025 9:15 AM EDT Appointment Radiology 5700 [place] [address] Interstitial pulmonary disease (HCC) [J84.9] 04/19/2025 9:00 AM EDT Office Visit Urology [address] [address] Diane Sanchez, TRACTOR TRAILER TRUCK DRIVER.CONTINUITY PERSON 9500 [place] [address] kidney stones ( RS FROM 8-5) AWARE MAIN 04/20/2025 1:00 PM EDT Office Visit Otolaryngology [address] [address] Aldair Germain, PhD, [facility] 9500 [place] [address] vocal cord dysfunction 04/21/2025 8:25 AM EDT Office Visit Otolaryngology [address] [address] Ruddy Palacios MD 7399 [place], [place] [phone] Return in about 6 weeks (around 01/03/2025). 04/27/2025 10:00 AM EDT Procedure Pulmonary Medicine [address] [address] Est pt Asthma per Dr. Sarmiento (60min) 04/27/2025 10:15 AM EDT Procedure Pulmonary Medicine [address] [address] Est pt Asthma per Dr. Sarmiento (60min) 04/27/2025 10:30 AM EDT Procedure Pulmonary Medicine [address] [address] Est pt Asthma per Dr. Sarmiento (60min) 04/27/2025 11:00 AM EDT Office Visit Pulmonary Medicine [address] [address] Austin Sarmiento MD 1257 [place] [address] Est pt Asthma per Dr. Sarmiento (60min) 05/03/2025 11:20 AM EDT Office Visit Otolaryngology 5700 [place] [address] Evelina Gomes PA-C 5700 [place] [address] wax cleaning 05/18/2025 3:00 PM EDT Office Visit Neurology [address] [place] [address] [place] [address] [place] [address] Numbness 07/08/2025 8:45 PM EST Office Visit Neurology 8800 [place] [address] Main, Psg Neur 8800 [place] [address] NICOLE (obstructive sleep apnea) [G47.33] 2025 10:20 AM EST Office Visit Gastroenterology [address] [place] [address] Lennie Clark MD, PhD 9500 [place], [place] [address] GASTRIC ISSUES 09/09/2025 9:40 AM EST Office Visit Gastroenterology 5334 [place] [address] Roland Reyes Jr., DO [address] [place] [address] Dyspepsia documented as of this encounter Visit Diagnoses Not on filedocumented in this encounter Care Teams Alum Plant Operator Relationship Specialty Start Date End Date Edil Mendoza DO [address] [place] [address] PCP - General Family Medicine 06/23/24 documented as of this encounter
--- OUTSIDE RECORDS SUMMARY | 2025-04-05 10:24 | XMS_ITS | Clinical Summary ---
Author Organization [facility] Address [id number] [address] [place] [address] Care Team Providers Care Reaming Machine Operator For Plastic Name Role Phone Danyell Mack MD Primary Care Provider [phone] Social History Tobacco Use Types Packs/Day Years Used Date Smoking Tobacco: Never Assessed Childcare Answer Date Recorded Childcare Unknown 01/20/2019 Employment Answer Date Recorded Employment Unknown 01/20/2019 Comments Unknown Sex and Gender Information Value Date Recorded Sex Assigned at Not on file Legal Sex Female 11:57 AM EDT Gender Identity Not on file Sexual Orientation Not on file Plan of Treatment Health Maintenance Due Date Last Done Comments Depression Screening 1982 Tobacco Screening 1982 Adult BMI Screening 1988 DTaP,Tdap and Td Vaccines (1 - Tdap) 1989 Pap Smear 1991 Zoster (Shingles) Vaccine (1 of 2) 2020 Influenza Vaccine 04/11/2025 Medical Devices Not on file Insurance [facility] MEDICARE Care Teams Reaming Machine Operator For Plastic Relationship Specialty Start Date End Date Danyell Mack MD PCP - General Family Medicine 03/27/21
--- OUTSIDE RECORDS SUMMARY | 2025-04-05 10:24 | XMS_ITS | Encounter Summary ---
Author Organization [facility] Address [address] [place] [address] Care Team Providers Care Gas Station Attendant Name Role Phone RejiEdil Primary Care Provider [phone] Source Comments In the event this information is protected by the Federal Confidentiality of Alcohol and Drug AbusePatient Records regulations: The Federal rules restrict any use of the information to criminally investigate or prosecute any alcohol or drug abuse patient.[facility] Encounter Details Date Type Department Care Team (Late st Contact Info) Description 03/01/2025 Results Follow-Up Otolaryngology 5700 [place] [address] Evelina Gomes PA-C 5700 [place] [address] Social History Tobacco Use Types Packs/Day Years [...] is lower risk 3 06/24/2024 Data from: https://www.neighborhoodatlas.medicine.[facility].edu/. Last address used for calculation [address] [...] 9:00 AM EDT Office Visit Gastroenterology [address] [address] Vicki Barajas, CARLOS ALBERTO.HYPERION ESSBASE DEVELOPER 95[address] [facility] [place] [address] Dysphagia, unspecified type [R13.10] 04/18/2025 9:15 AM EDT Appointment Radiology 5700 [place], [place] [phone] Interstitial pulmonary disease (HCC) [J84.9] 04/19/2025 9:00 AM EDT Office Visit Urology [address] [address] Diane Sanchez, SEGMENT ASSEMBLER.HYPERION ESSBASE DEVELOPER [address] [place] [address] kidney stones ( RS FROM 8-5) AWARE MAIN 04/20/2025 1:00 PM EDT Office Visit Otolaryngology [address] [place] [phone] Aldair Germain, PhD, [facility]-MARKETING REPRESENTATIVE [address] [place] [phone] vocal cord dysfunction 04/21/2025 8:25 AM EDT Office Visit Otolaryngology [address] [address] Ruddy Palacios MD [address] [place], [place] 4[address] Return in about 6 weeks (around 01/03/2025). 04/27/2025 10:00 AM EDT Procedure Pulmonary Medicine [address] [address] Est pt Asthma per Dr. Sarmiento (60min) 04/27/2025 10:15 AM EDT Procedure Pulmonary Medicine [address] [address] Est pt Asthma per Dr. Sarmiento (60min) 04/27/2025 10:30 AM EDT Procedure Pulmonary Medicine [address] [address] Est pt Asthma per Dr. Sarmiento (60min) 04/27/2025 11:00 AM EDT Office Visit Pulmonary Medicine [address] [address] Austin Sarmiento MD [address] [place] [address] Est pt Asthma per Dr. Sarmiento (60min) 05/03/2025 11:20 AM EDT Office Visit Otolaryngology 5700 [place] [address] Evelina Gomes PA-C 5700 [place] [address] wax cleaning 05/18/2025 3:00 PM EDT Office Visit Neurology [address] [place] [address] [place] [address] [place] [address] Numbness 07/08/2025 8:45 PM EST Office Visit Neurology 8800 [place] [address] Main, Psg Neur [address] [place] [address] NICOLE (obstructive sleep apnea) [G47.33] 2025 10:20 AM EST Office Visit Gastroenterology [address] [place] [address] Lennie Clark MD, PhD [address] [place] [address] GASTRIC ISSUES 09/09/2025 9:40 AM EST Office Visit Gastroenterology [address] [place] [address] Roland Reyes Jr., DO [address] [place] [address] Dyspepsia documented as of this encounter Visit Diagnoses Not on filedocumented in this encounter Care Teams Gas Station Attendant Relationship Specialty Start Date End Date Edil Mendoza DO [address] [place] [address] PCP - General Family Medicine 06/23/24 documented as of this encounter
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
--- OUTSIDE RECORDS SUMMARY | 2025-04-05 10:24 | XMS_ITS | Encounter Summary ---
Author Organization [facility] Address [facility] [place] [address] Care Team Providers Care Botanical Technical Officer Name Role Phone RejiEdil Primary Care Provider [phone] Source Comments In the event this information is protected by the Federal Confidentiality of Alcohol and Drug AbusePatient Records regulations: The Federal rules restrict any use of the information to criminally investigate or prosecute any alcohol or drug abuse patient.[facility] Encounter Details Date Type Department Care Team (Late st Contact Info) Description 12/14/2024 Patient Msg Nutrition Therapy [address] [place] [id number] Provider, Ccf Nutrition follow up information Social History Tobacco Use Types Packs/Day Years [...] is lower risk 3 06/24/2024 Data from: https://www.neighborhoodatlas.[facility]/. Last address used for calculation [address] [...] 9:00 AM EDT Office Visit Gastroenterology [address] [address] Vicki Barajas APRN.FIELD ASSISTANT [address] [place] [address] Dysphagia, unspecified type [R13.10] 04/18/2025 9:15 AM EDT Appointment Radiology 5700 [place], [place] [phone] Interstitial pulmonary disease (HCC) [J84.9] 04/19/2025 9:00 AM EDT Office Visit Urology [address] [address] Diane Sanchez, YARN BLEACHING MACHINE OPERATOR.FIELD ASSISTANT 9500 [place] [address] kidney stones ( RS FROM 8-5) AWARE MAIN 04/20/2025 1:00 PM EDT Office Visit Otolaryngology [address] [address] Aldair Germain, PhD, [facility] 9500 [place] [address] vocal cord dysfunction 04/21/2025 8:25 AM EDT Office Visit Otolaryngology [address] [address] Ruddy Palacios MD 4760 [place] [address] Return in about 6 weeks (around 01/03/2025). 04/27/2025 10:00 AM EDT Procedure Pulmonary Medicine [address] [place] [address] Est pt Asthma per Dr. Sarmiento (60min) 04/27/2025 10:15 AM EDT Procedure Pulmonary Medicine [address] [address] Est pt Asthma per Dr. Sarmiento (60min) 04/27/2025 10:30 AM EDT Procedure Pulmonary Medicine [address] [address] Est pt Asthma per Dr. Sarmiento (60min) 04/27/2025 11:00 AM EDT Office Visit Pulmonary Medicine [address] [address] Austin Sarmiento MD 4803 [place] [address] Est pt Asthma per Dr. Sarmiento (60min) 05/03/2025 11:20 AM EDT Office Visit Otolaryngology 5700 [place] [address] Evelina Gomes PA-C 5700 [place] [address] wax cleaning 05/18/2025 3:00 PM EDT Office Visit Neurology [address] [place] [address] [place] [address] [place] [address] Numbness 07/08/2025 8:45 PM EST Office Visit Neurology 8800 [place] [address] Main, Psg Neur 8800 [place] [address] NICOLE (obstructive sleep apnea) [G47.33] 2025 10:20 AM EST Office Visit Gastroenterology [address] [place] [address] Lennie Clark MD, PhD [address] [place], [place] [address] GASTRIC ISSUES 09/09/2025 9:40 AM EST Office Visit Gastroenterology [address] [place] [address] Roland Reyes Jr., DO [address] [place] [address] Dyspepsia documented as of this encounter Visit Diagnoses Not on filedocumented in this encounter Care Teams Botanical Technical Officer Relationship Specialty Start Date End Date Edil Mendoza DO [address] [place] [address] PCP - General Family Medicine 06/23/24 documented as of this encounter
--- OUTSIDE RECORDS SUMMARY | 2025-04-05 10:36 | XMS_ITS | CCD ---
Author Organization [facility] CliniSywv Care Team Providers Care [employer] Name Role Phone PHYSICIAN, DEFAULT Unavailable Unavailable PHYSICIAN, DEFAULT Unavailable Unavailable MACK, ESPINOZA Unavailable Unavailable CHAUDHARI, MUJEEB A Unavailable Unavailable CHAUDHARI, MUJEEB A Unavailable Unavailable MACK, ESPINOZA Unavailable Unavailable MACK, ESPINOZA Unavailable Unavailable Mack, Espinoza Taylor Primary Care Provider [phone] Espinoza Mack MD Primary Care Provider [phone] JOHANN HAYES Referring Unavailable FREDERICK, ESPINOZA TAYLOR Primary Care Unavailable LYNETTE, DR RIZO Consulting Unavailable HAY, DR RIZO Attending Unavailable HAY, DR RIZO Admitting Unavailable MACK, DR ESPINOZA Muñoz Primary Care Unavailable MACK, DR ESPINOZA Muñoz Primary Care Unavailable MACK, DR ESPINOZA Muñoz Attending Unavailable MACK, DR ESPINOZA Muñoz Admitting Unavailable MACK, DR ESPINOZA Muñoz Consulting Unavailable MACK, DR ESPINOZA Muñoz Primary Care Unavailable MACK, DR ESPINOZA Muñoz Attending Unavailable MACK, DR ESPINOZA Muñoz Admitting Unavailable MACK, DR ESPINOZA Muñoz Consulting Unavailable MACK, DR ESPINOZA Muñoz Primary Care Unavailable MACK, DR ESPINOZA Muñoz Attending Unavailable MACK, DR ESPINOZA Muñoz Admitting Unavailable ZIEBER, DR KYRA Vicente Consulting Unavailable MACK, DR ESPINOZA Muñoz Consulting Unavailable MACK, DR ESPINOZA Muñoz Primary Care Unavailable MACK, DR ESPINOZA Muñoz Attending Unavailable MACK, DR ESPINOZA Muñoz Admitting Unavailable MACK, DR ESPINOZA Muñzo Consulting Unavailable MACK, DR ESPINOZA Muñoz Primary Care Unavailable MACK, DR ESPINOZA Muñoz Attending Unavailable MACK, DR ESPINOZA Muñoz Admitting Unavailable ZIEBER, DR KYRA Vicente Consulting Unavailable MACK, DR ESPINOZA Muñoz Primary Care Unavailable MACK, DR ESPINOZA Muñoz Attending Unavailable MACK, DR ESPINOZA Muñoz Admitting Unavailable MACK, DR ESPINOZA Muñoz Consulting Unavailable MACK, DR ESPINOZA Muñoz Primary Care Unavailable MACK, DR ESPINOZA Muñoz Attending Unavailable MACK, DR ESPINOZA Muñoz Admitting Unavailable ZIEBER, DR KYRA Vicente Consulting Unavailable KLYM, CHETNA Consulting Unavailable MACK, DR ESPINOZA Muñoz Consulting Unavailable MACK, DR ESPINOZA Muñoz Primary Care Unavailable MACK, DR ESPINOZA Muñoz Attending Unavailable MACK, DR ESPINOZA Muñoz Admitting Unavailable MACK, DR ESPINOZA Muñoz Consulting Unavailable MACK, DR ESPINOZA Muñoz Primary Care Unavailable MACK, DR ESPINOZA Muñoz Attending Unavailable MACK, DR ESPINOZA Muñoz Admitting Unavailable ZIEBER, DR KYRA Vicente Consulting Unavailable MACK, DR ESPINOZA Muñoz Consulting Unavailable MACK, DR ESPINOZA Muñoz Primary Care Unavailable MACK, DR ESPINOZA Muñoz Attending Unavailable MACK, DR ESPINOZA Muñoz Admitting Unavailable Eligio Ford. Primary Care Physician [phone] [facility] Primary Care Provider DO Primo Wilkinson Attending Provider DO Duc Shrestha Referring Provider DO Paras Herndon Emergency Provider [phone] MD Luz Walker Admit Provider MD Luz Walker Attending Provider Eleazar PT, Shayne Douglas Unavailable [phone] [facility] Primary Care Provider MD Marlena Gamble Attending Provider Ana, DO Solo Other Provider DO Duc Shrestha Other Provider [facility] - S, Paras Attending Provider Malek, DO Justin Referring Provider Maeve - S, DO Ashanti Escobedo Attending Provider Ana, DO Solo Other Provider Malek, DO Justin Attending Provider DO Primo Wilkinson Attending Provider Malek, DO Justin Referring Provider Malek, DO Justin Primary Care Provider [facility] Primary Care Provider [phone] Malek, DO Justin Other Provider [facility] - S, DO Paras Attending Provider MD Ashanti Baldwin Attending Provider Malek, DO Law Referring Provider [facility] Primary Care Provider DUSTIN Palacios Emergency Provider DO Primo Wilkinson Attending Provider DO Eduin Perez Attending Provider DUC SHRESTHA Primary Care Physician MALEK, JUSTIN Referring Unavailable YAZ SIERRA Attending Unavailable Carlo Andrews Referring Unavailable Carlo Andrews Attending Unavailable Carlo Andrews Admitting Unavailable Eligio Ford Attending Unavailable Malek, DO Justin Primary Care Provider Malek, DO Justin Attending Provider Malek, DO Justin Referring Provider NON STAFF Primary Care Provider UnavailMD Ashanti Lopez Attending Provider [phone] NON STAFF Primary Care Provider Unavaileverett Burnett, DISTRIBUTION WAREHOUSE MANAGER Carine Referring Provider MD Akbar Thurman Attending Provider [phone] Mike Torres MD Mae Eve Emergency Provider MD Jorge Caba Attending Provider [facility] Primary Care Provider MD Ashanti Baldwin Attending Provider [phone] DUSTIN Palacios Emergency Provider DO Eduin Perez Attending Provider [phone] [facility] Primary Care Provider [phone] MD Abhilash Caceres Attending Provider DO Enzo Batista Emergency Provider [phone] Espinoza Mack MD Primary Care Provider [phone] Eduin Perez DO Primary Care Provider Shayne Gruber Attending Unavailable Shayne Gruber Admitting Unavailable Eduin Perez Primary Care Unavailable [facility] Primary Care Provider [phone] Wesley Palacios PA-C Emergency Provider Eduin Perez DO Attending Provider [phone] Abhilash Caceres MD Attending Provider Enzo Batista DO Emergency Provider Ashanti Dutta DO Emergency Provider Blanka Forrester MD, Keith Admit Provider [phone] Herbert Rocha DO Attending Provider Mae Rivera MD Emergency Provider Carlo Bills DO Admit Provider [phone] Mitzy BRITO, Keith Attending Provider [phone] Paras Herndon DO Emergency Provider [phone] Carlo Bills DO Attending Provider [phone] Shyam Echevarria MD Attending Provider [facility] Primary Care Provider Eduin Perez DO Attending Provider [phone] Esteban BRITO, Ruddy Admit Provider Gage BRITO, Betty Palmer Other Provider [facility] Primary Care Provider Eduin Perez DO Attending Provider JOE VALDERRAMA Attending Unavailable PERRY WU Attending Unavailab JOE Stockton Attending Unavailable JOE VALDERRAMA Referring Unavailable JOE VALDERRAMA Attending Unavailable [facility] ider JOSEPHINE ROSAS Referring Unavailable EDUIN PEREZ Primary Care Unavailable JOSEPHINE ROSAS Referring Unavailable EDUIN PEREZ Primary Care Unavailable Milagros Sharpe APRN Attending Provider EVONNE ALMARAZ Attending Unavailable EDUIN PEREZ Primary Care Unavailable JOSEPHINE ROSAS Referring Unavailable SOY REYES JR Referring Unavailable EDUIN PEREZ Primary Care Unavailable SOY REYES JR Referring Unavailable EDUIN PEREZ Primary Care Unavailable EDUIN HERNANDEZ Attending Unavailable SOY REYES JR Referring Unavailable ANA, EDUIN Primary Care Unavailable PEEWEE HENSLEY Attending Unavailable ANA, EDUIN Primary Care Unavailable HOUSE, GABI Referring Unavailable ANA, EDUIN Primary Care Unavailable MAE RIVERA JR Referring Unavailable YAZ RIVERA Admitting Unavailable MORGAN YANEZ Attending Unavailable ANA, EDUIN Primary Care Unavailable HOUSE, GABI Attending Unavailable ANA, EDUIN Primary Care Unavailable SOY REYES JR Referring Unavailable ANA, EDUIN Primary Care Unavailable ARABELLA LUCIANO Referring Unavailable ANA, EDUIN Primary Care Unavailable SELF Referring Unavailable GEOFFREY GUARDADO Attending Unavailable LEX, CARINE M Referring Unavailable ANA, EDUIN Primary Care Unavailable LEX, CARINE M Referring Unavailable ANA, EDUIN Primary Care Unavailable LEX, CARINE M Referring Unavailable ANA, EDUIN Primary Care Unavailable AUSTIN GORDILLO Attending Unavailable ESPINOZA MACK Primary Care Unavailable ANA, EDUIN Primary Care Unavailable ASAD DONOVAN Attending Unavailable RTOY JOHNSON Attending Unavailable ANA, EDUIN Primary Care Unavailable ANA, EDUIN Primary Care Unavailable ARABELLA LUCIANO Referring Unavailable JOSEPHINE ROSAS Attending Unavailable ANA, EDUIN Primary Care Unavailable EUGENE DEL CASTILLO Attending Unavailable HOUSE, GABI Referring Unavailable ANDREAS YBARRA Attending Unavailable ANDREAS YBARRA Admitting Unavailable ANA, EDUIN Primary Care Unavailable ANA, EDUIN Primary Care Unavailable NALLELY AL Referring Unavailable NALLELY AL Referring Unavailable ANA, EDUIN Primary Care Unavailable HOUSE, GABI Attending Unavailable ARABELLA LUCIANO Referring Unavailable ANA, EDUIN Primary Care Unavailable ANA, EDUIN Primary Care Unavailable HOUSE, GABI Referring Unavailable AAN, EDUIN Primary Care Unavailable ANA, EDUIN Primary Care Unavailable RUDDY SANTANA Attending Unavailable JOSEPHINE ROSAS Referring Unavailable STEVEN GREENE Admitting Unava ilable JACQUELIN MULLER Attending UnavailASHANTI House Referring Unavailable ANA, EDUIN Primary Care Unavailable LEX, CARINE M Referring Unavailable ANA, EDUIN Primary Care Unavailable AUSTIN GORDILLO Attending Unavailable SOY REYES JR Referring Unavailable ANA, EDUIN Primary Care Unavailable Tara Perez DOon Attending Provider [phone] Keith Forrester Attending Unavailable Carlo Bills Admitting Unavailable [facility], Services Primary Care Unavaila [facility], Services Primary Care U navailable Eduin Perez Attending Unavailable Eduin Perez Admitting Unavailable [facility] Primary Care Unavaila Eduin Betancourt Attending Unavailable Eduin Perez Admitting Unavailable [facility] Primary Care Unavaila ble Mae Rivera Jr Attending Unavailable Mae Rivera Jr Admitting Unavailable [facility] Primary Care Unavaila ble Enzo Batista Attending Unavailable Enzo Batista Admitting Unavailable [facility] Primary Care U navailable Milagros Sharpe Attending Unavailable Snow Sharpena Admitting Unavailable [facility] Primary Care Unavaila ble Eudin Perez Attending Unavailable Eduin Perez Admitting Unavailable [facility] Primary Care Unavaila ble Abhilash Caceres Attending Abhilash Elaine Ad[facility] Unavaila Wesley Tavares Attending Unavailable Wesley Palacios Admitting Unavailable NON STAFF Primary Care Unavailable Eduin Perez Attending Unavailable Eduin Perez Admitting Unavailable [facility] Primary Care Unavaila Eduin Betancourt Attending Unavailable Eduin Perez Admitting Unavailable [facility] Primary Care Unavaila ble Eduin Perez Attending Unavailable Eduin Perez Admitting Unavailable [facility], Services Primary Care U triailable Eduin Perez Attending Unavailable Eduin Perez Admitting Unavailable Lex, Carine Referring Unavailable Akbar Thurman Attending Unavaila Akbar Vincent Admitting Unavaila ble NON STAFF Primary Care Unavailable Betty Almonte Consulting Unavaila Ruddy Maya Attending Unavailable Ruddy Orellana Admitting Unavailable [facility] Services Primary Care Unavaila Shyam Morris Attending Unavailable Carlo Bills Admitting Unavailable [facility] Primary Care Unavaila ble Herbert Rocha Attending Unavailable Keith Forrester Admitting Unavailable [facility] Primary Care Unavaila ble Allergies Allergy Classification Reported Allergen(s) Allergy Type Date of Onset Reaction(s) Facility Acetaminophen / HYDROcodone (1 source) Acetaminophen / HYDROcodone Drug Allergy [facility] Work Phone: Amitriptyline (1 source) Amitriptyline Drug Allergy [facility] Work Phone: Aspartame (1 source) Aspartame Drug Allergy 008 Itching [facility] Aspirin (2 sources) Aspirin Drug Allergy 007 Hives [facility] Work Phone: Bisoprolol (1 source) Bisoprolol Drug Allergy 024 Vomiting [facility] Cephalosporins (antibiotic) (1 source) cefdinir Drug Allergy 024 Vomiting [facility] Corticosteroids (4 sources) methylPREDNISolone Drug Allergy 007 Hives, Unknown Reaction [facility] Work Phone: Diclofenac / miSOPROStol (1 source) Diclofenac / miSOPROStol Drug Allergy 007 [facility] Work Phone: egg extract (1 source) egg extract Drug Allergy 011 Shortness of Breath [facility] Eszopiclone (1 source) Eszopiclone Drug Allergy 024 Unknown Reaction [facility] heparin (1 source) heparin Drug Allergy 024 Swelling [facility] hydroCHLOROthiazide (1 source) hydroCHLOROthiazide Drug Allergy 024 Vomiting [facility] Lactose (1 source) Lactose Drug Allergy 011 Shortness of Breath [facility] latanoprost (1 source) latanoprost Drug Allergy 024 Rash [facility] Latex (2 sources) Latex Substance Allergy 007 Rash [facility] Work Phone: Macrolides (antibiotic) (1 source) Erythromycin Drug Allergy 007 [facility] Work Phone: medroxyPROGESTERone (1 source) medroxyPROGESTERone Drug Allergy 024 Hives [facility] Nalbuphine (2 sources) Nalbuphine Drug Allergy 007 Hives [facility] Work Phone: NSAIDs (6 sources) Ibuprofen Drug Allergy 007 Nausea, Hives, Unknown Reaction [facility] Work Phone: Opioid Agonists (3 sources) Codeine Drug Allergy 007 Hives, Unknown Reaction [facility] Work Phone: pregabalin (1 source) pregabalin Drug Allergy 024 Unknown Reaction [facility] QUEtiapine (1 source) QUEtiapine Drug Allergy 024 Vomiting [facility] rofecoxib (2 sources) rofecoxib Drug Allergy 007 Hives [facility] Work Phone: Serotonin Reuptake Inhibitors (SSRIs) (1 source) traZODone Drug Allergy 007 [facility] Work Phone: Serotonin-1b and Serotonin-1d Receptor Agonists (3 sources) SUMAtriptan Drug Allergy 007 Hives [facility] Work Phone: Soy (1 source) Soy protein Food Allergy 011 Shortness of Breath [facility] tiZANidine (2 sources) tiZANidine Drug Allergy 007 Unknown Reaction [facility] Work Phone: Unclassified (20 sources) Medroxyprog Bandar (Antineoplast); Translations: [MEDROXYPROG BANDAR (ANTINEOPLAST)] Propensity to adverse reactions [facility] Work Phone: Unclassified (5 sources) msg [Other] Propensity to adverse reactions [facility] Work Phone: Unclassified (5 sources) NUTRASWEET [Other] Propensity to adverse reactions 008 Intolerance [facility] Vitamin K Antagonist (1 source) Warfarin Drug Allergy 024 Unknown Reaction [facility] Wheat gluten extract (1 source) Wheat gluten extract Drug Allergy 011 Shortness of Breath [facility] (20 sources) aspirin; Translations: [ASPIRIN] Drug Allergy 007 Hives [facility] Repository (1 source) baclofen Drug Allergy 009 [facility] Repository (1 source) codeine Drug Allergy 009 [facility] Repository (6 sources) erythromycin; Translations: [ERYTHROMYCIN] Drug Allergy [facility] (1 source) ibuprofen Drug Allergy [facility] Rep[facility] (1 source) Latex rubber gloves Drug allergy (disorder) [facility] Rep[facility] (2 sources) medroxyPROGESTERone; Translations: [Depo-Provera] Drug Allergy [facility] Repository (2 sources) nabumetone; Translations: [Relafen] Drug Allergy [facility] (1 source) phytic acid Drug Allergy [facility] Rep[facility] (20 sources) predniSONE; Translations: [PREDNISONE] Drug Allergy Unknown Reaction [facility] Repository (2 sources) tiZANidine; Translations: [Zanaflex] Drug Allergy [facility] Repository (5 sources) traZODone; Translations: [TRAZODONE] Drug Allergy 007 [facility] (20 sources) Acetaminophen / HYDROcodone; Translations: [HYDROCODONE-ACETAMIN OPHEN] Drug Allergy 007 [facility] Work Phone: (20 sources) Amitriptyline; Translations: [AMITRIPTYLINE HCL] Drug Allergy 007 [facility] Work Phone: (20 sources) Aspartame; Translations: [ASPARTAME] Drug Allergy 008 Itching [facility] (20 sources) Aspirin; Translations: [aspirin] Drug Allergy 007 Dyspnea (finding) [facility] Work Phone: (20 sources) Codeine; Translations: [CODEINE] Drug Allergy 007 Vomiting (disorder) [facility] Work Phone: (20 sources) Diclofenac / miSOPROStol; Translations: [DICLOFENAC-MISOPROST OL] Drug Allergy 007 Eruption of skin (disorder) [facility] Work Phone: (7 sources) egg extract; Translations: [EGG] Drug Allergy 011 Shortness of Breath [facility] (20 sources) Erythromycin; Translations: [erythromycin] Drug Allergy 007 Stomach ache (finding) [facility] Work Phone: (20 sources) Ibuprofen; Translations: [IBUPROFEN] Drug Allergy 007 Weal (disorder) [facility] Work Phone: (20 sources) Ketorolac; Translations: [KETOROLAC TROMETHAMINE] Drug Allergy 007 [facility] Work Phone: (10 sources) Lactose; Translations: [LACTOSE] Drug Allergy 011 Shortness of Breath [facility] (20 sources) Latex; Translations: [LATEX] Propensity to adverse reactions 007 Hives, Rash [facility] Work Phone: (20 sources) methylPREDNISolone; Translations: [METHYLPREDNISOLONE] Drug Allergy 007 Weal (disorder) [facility] Work Phone: (20 sources) nabumetone; Translations: [NABUMETONE] Drug Allergy 007 Nausea (finding) [facility] Work Phone: (20 sources) Nalbuphine; Translations: [NALBUPHINE HCL] Drug Allergy 007 [facility] Work Phone: (20 sources) predniSONE; Translations: [prednisone] Drug Allergy 007 Unknown [facility] Work Phone: (20 sources) rofecoxib; Translations: [ROFECOXIB] Drug Allergy 007 Abdominal pain (finding) [facility] Work Phone: (10 sources) Soy protein; Translations: [SOY] Drug Allergy 011 Shortness of Breath [facility] (20 sources) SUMAtriptan; Translations: [SUMATRIPTAN SUCCINATE] Drug Allergy [facility] Work Phone: (20 sources) tiZANidine; Translations: [TIZANIDINE HCL] Drug Allergy [facility] Work Phone: (20 sources) traZODone Drug Allergy [facility] Work Phone: (7 sources) Wheat gluten extract; Translations: [GLUTEN] Drug Allergy 011 Shortness of Breath [facility] (14 sources) OTHER; Translations: [OTHER] Propensity to adverse reactions (disorder) Shortness of breath [facility] Other [place] Rep[facility] (20 sources) Adhesive agent Drug allergy (disorder) 013 Rash [facility] Repository (1 source) Aspirin Drug Allergy 013 [facility] Repository (1 source) Baclofen Drug Allergy 019 [facility] Repository (2 sources) Bisoprolol / hydroCHLOROthiazide; Translations: [Ziac] Drug Allergy 014 [facility] Repository (20 sources) cefdinir; Translations: [CEFDINIR] Drug Allergy 011 Vomiting [facility] (1 source) Codeine Drug Allergy 011 [facility] (1 source) Diclofenac / miSOPROStol Drug Allergy 011 [facility] (20 sources) Erythromycin Drug Allergy 011 Vomiting [facility] (2 sources) Eszopiclone; Translations: [Lunesta] Drug Allergy 014 [facility] Rep[facility] (2 sources) fluticasone; Translations: [Flonase] Drug Allergy [facility] (2 sources) fluticasone / salmeterol; Translations: [Advair Diskus] Drug Allergy 011 [facility] (1 source) gabapentin Drug Allergy 017 [facility] Repository (9 sources) gabapentin Drug Allergy 020 Hives [facility] (1 source) heparin Drug Allergy 014 [facility] (1 source) Ibuprofen Drug Allergy [facility] (2 sources) Ketorolac; Translations: [Toradol] Drug Allergy [facility] (1 source) Latex Drug allergy (disorder) 991 [facility] Repository (1 source) methylPREDNISolone Drug Allergy [facility] (20 sources) Morphine; Translations: [morphine] Drug Allergy 011 Hives [facility] (1 source) nabumetone Drug Allergy [facility]ository (2 sources) Nalbuphine; Translations: [Nubain] Drug Allergy [facility] (20 sources) NSAIDs; Translations: [NSAIDS (NON-STEROIDAL ANTI-INFLAMMATORY DRUG)] Drug allergy (disorder) 013 Hives [facility] Repository (2 sources) Perazine; Translations: [Maxalt] Drug Allergy 016 [facility] Repository (2 sources) Plasmin; Translations: [Imitrex] Drug Allergy [facility] (1 source) predniSONE Drug Allergy [facility] (2 sources) pregabalin; Translations: [Lyrica] Drug Allergy 016 [facility] Repository (2 sources) QUEtiapine; Translations: [SEROquel] Drug Allergy [facility] (2 sources) rofecoxib; Translations: [Vioxx] Drug Allergy [facility] (1 source) Sisomicin Drug Allergy [facility] (1 source) tiZANidine Drug Allergy [facility] (1 source) traZODone Drug Allergy [facility] (20 sources) Warfarin; Translations: [warfarin] Drug Allergy 013 Unknown Reaction [facility] Repository (2 sources) heparin lock flush; Translations: [Heparin Lock Flush] Drug allergy (disorder) 014 [facility] (1 source) Alcohol Drug allergy (disorder) [facility] (12 sources) Amitriptyline; Translations: [amitriptyline] Drug Allergy 007 Unknown (qualifier value) [facility] (4 sources) Bisoprolol / hydroCHLOROthiazide; Translations: [bisoprolol-hydrochlo rothiazide] Drug Allergy Weal (disorder) [facility] (5 sources) Cefuroxime; Translations: [cefuroxime] Drug Allergy Unknown (qualifier value) [facility] (3 sources) Egg; Translations: [Eggs] Propensity to adverse reactions to food Allergy, Unspecified, Not Elsewhere Classified [facility] (20 sources) Eszopiclone; Translations: [eszopiclone] Drug Allergy 021 Weal (disorder), Other: See Comments [facility] (20 sources) fluticasone; Translations: [fluticasone nasal] Drug Allergy 021 Anaphylaxis [facility] (20 sources) fluticasone / salmeterol; Translations: [fluticasone-salmeter ol] Drug Allergy 013 Anaphylaxis, Shortness of Breath [facility] (5 sources) Gluten; Translations: [Glutens] Propensity to adverse reactions to food Diarrhea (finding) [facility] (20 sources) heparin; Translations: [heparin] Drug Allergy 021 Weal (disorder), Swelling [facility] Comment on above: IV- HIVES, SUQ- MAKE S LARGE MASS (20 sources) Ketorolac; Translations: [ketorolac] Drug Allergy 021 Vomiting (disorder) [facility] (20 sources) latanoprost; Translations: [latanoprost ophthalmic] Drug Allergy Unknown (qualifier value), Other: See Comments [facility] (5 sources) Lidocaine; Translations: [lidocaine topical] Drug Allergy Unknown (qualifier value) [facility] [place] (20 sources) medroxyPROGESTERone; Translations: [medroxyprogesterone] Drug Allergy Weal (disorder) [facility] (14 sources) Morphine; Translations: [morphine] Drug Allergy 024 Vomiting (disorder), Hives [facility] (20 sources) Nalbuphine; Translations: [nalbuphine] Drug Allergy Allergy, Unspecified, Not Elsewhere [facility]ified, [facility] [facility] ([facility] Non-steroidal anti-inflammatory agent; Translations: [NSAIDs] Drug allergy 013 Hives, Nausea And Vomiting, GI intolerance [facility] (20 sources) pregabalin; Translations: [pregabalin] Drug Allergy Weal (disorder), Other: See Comments [facility] (20 sources) QUEtiapine; Translations: [quetiapine] Drug Allergy Pancreatitis (disorder), GI intolerance, Other: See Comments [facility] (20 sources) rizatriptan; Translations: [rizatriptan] Drug Allergy Unknown (qualifier value) [facility] (20 sources) SUMAtriptan; Translations: [sumatriptan] Drug Allergy chest pain, hives, Hives, Chest tightness [facility] (20 sources) tiZANidine; Translations: [tizanidine] Drug Allergy Unknown Reaction [facility] Comment on above: PARADOXIC RESPONSE (16 sources) Warfarin; Translations: [warfarin] Drug Allergy 023 Weal (disorder) [facility] (5 sources) Wheat preparation; Translations: [Wheat] Drug Allergy Diarrhea (finding) [facility] (4 sources) LACTOSE INTOLERANT 1 Food allergy [facility] Comment on above: DIARRHEA (6 sources) Anabolic steroid (substance); Translations: [anabolic steroids] Drug allergy increase heart rate, hives, migraine [facility] (5 sources) Soy/Soy Products; Translations: [Soy/Soy Products] Propensity to adverse reactions to food Diarrhea (finding) [facility] (5 sources) Adhesive Tape Allergy to substance Rash [facility] (20 sources) Bisoprolol; Translations: [bisoprolol] Drug Allergy GI intolerance [facility] (5 sources) Corticosteroids Propensity to adverse reactions Migraine [facility] (20 sources) hydroCHLOROthiazide; Translations: [hydrochlorothiazide] Drug Allergy Vomiting [facility] (17 sources) salmeterol Drug Allergy Anaphylaxis [facility] (20 sources) NSAIDS (Non-Steroidal Anti-Inflamma; Translations: [NSAIDS (Non-Steroidal Anti-Inflamma] Propensity to adverse reactions Nausea [facility] (12 sources) Aluminum aspirin Drug Allergy [facility] (12 sources) Aspartame Drug Allergy Itching [facility] (12 sources) cefdinir Drug Allergy [facility] (20 sources) Diclofenac Drug Allergy Unknown Reaction [facility] (12 sources) gabapentin Drug Allergy Hives [facility] (12 sources) Gluten Allergy to substance 011 Shortness of breath [facility] (12 sources) Ketorolac trometamol Propensity to adverse reactions [facility] (12 sources) Lactose (non-medical use) Allergy to substance 02-21- 011 Shortness of breath [facility] (12 sources) latanoprost Drug Allergy [facility] (12 sources) Latex Propensity to adverse reactions [facility] (17 sources) miSOPROStol Drug Allergy 023 Unknown Reaction [facility] (12 sources) nabumetone Drug Allergy [facility] (12 sources) Prednisone Propensity to adverse reactions Shortness of breath [facility] (12 sources) Pregabalin Propensity to adverse reactions [facility] (12 sources) rofecoxib Drug Allergy [facility] (5 sources) traZODone Drug Allergy Unknown Reaction [facility] (20 sources) Acetaminophen; Translations: [acetaminophen] Drug Allergy Unknown Reaction [facility] (20 sources) Cephalexin; Translations: [cephalexin] Drug Allergy Unknown Reaction [facility] (20 sources) HYDROcodone; Translations: [hydrocodone] Drug Allergy Unknown Reaction [facility] (20 sources) oxyCODONE; Translations: [oxycodone] Drug Allergy Unknown Reaction [facility] (20 sources) Sulfamethoxazole; Translations: [sulfamethoxazole] Drug Allergy Unknown Reaction [facility] (20 sources) Trimethoprim; Translations: [trimethoprim] Drug Allergy Unknown Reaction [facility] (1 source) Diclofenac / miSOPROStol; Translations: [Arthrotec] Drug Allergy [facility] (1 source) Lactose (non-medical use); Translations: [LACTOSE INTOLERANT] Food allergy (disorder) [facility] (20 sources) Acetaminophen / Chlorpheniramine / Phenylephrine; Translations: [BVI-LPMDZOOZP-BBUBZC INOPHEN] Drug Allergy Swelling [facility] (20 sources) Betamethasone; Translations: [BETAMETHASONE DIPROPIONATE] Drug Allergy Other: See Comments [facility] (6 sources) Non-steroidal anti-inflammatory agent Drug Allergy Hives [facility] (20 sources) Adhesive Tape-Silicones; Translations: [ADHESIVE TAPE-SILICONES] Drug Allergy Hives, Rash [facility] (20 sources) [id number] Antimigraine Agents; Translations: [[id number] ANTIMIGRAINE AGENTS] Drug Allergy Other: See Comments [facility] (10 sources) Eszopiclone Drug Allergy [facility] Work Phone: (10 sources) Ketorolac Allergy to substance GI intolerance [facility] (9 sources) Sulfamethoxazole / Trimethoprim Drug Allergy Angioedema [facility] (10 sources) Wound Dressing Adhesive Drug Allergy Rash [facility] (1 source) Acetaminophen / HYDROcodone; Translations: [acetaminophen-HYDROc odone] Drug Allergy [facility] (1 source) Adhesive bandage; Translations: [Adhesive Bandage] Propensity to adverse reactions to drug (disorder) [facility] (1 source) Caffeine; Translations: [caffeine] Drug Allergy [facility] (1 source) Nutrasweet; Translations: [Nutrasweet] Propensity to adverse reactions to drug (disorder) [facility] (1 source) MSG; Translations: [MSG] Propensity to adverse reactions to drug (disorder) [facility] (1 source) trazodone-like drugs; Translations: [trazodone-like drugs] Propensity to adverse reactions to drug (disorder) [facility] (20 sources) stevioside Drug Allergy Intolerance [facility] (20 sources) Ipratropium; Translations: [IPRATROPIUM] Drug Allergy [facility] (5 sources) cefdinir Drug Allergy Other: See Comments [facility] (2 sources) FLUTICASONE PROPION-SALMETEROL; Translations: [FLUTICASONE PROPION-SALMETEROL] Propensity to adverse reactions to drug (disorder) [facility] (2 sources) STEVIOSIDE (BULK); Translations: [STEVIOSIDE (BULK)] Propensity to adverse reactions to drug (disorder) [facility] (1 source) Adhesive agent Drug allergy (disorder) [facility] (1 source) Aspirin Drug Allergy [facility] (1 source) cefdinir Drug Allergy [facility] (1 source) Codeine Drug Allergy [facility] (1 source) Diclofenac Drug Allergy [facility] (1 source) Erythromycin Drug Allergy [facility] (1 source) Eszopiclone Drug Allergy [facility] (1 source) fluticasone Drug Allergy [facility] (1 source) heparin Drug Allergy [facility] (1 source) Ketorolac Drug Allergy [facility] (1 source) latanoprost Drug Allergy [facility] (1 source) Latex Drug allergy (disorder) [facility] (1 source) medroxyPROGESTERone Drug Allergy [facility] (1 source) methylPREDNISolone Drug Allergy [facility] (1 source) Morphine Drug Allergy [facility] (1 source) nabumetone Drug Allergy [facility] (1 source) Nalbuphine Drug Allergy [facility] (1 source) predniSONE Drug Allergy [facility] (1 source) pregabalin Drug Allergy [facility] (1 source) QUEtiapine Drug Allergy [facility] (1 source) rizatriptan Drug Allergy [facility] (1 source) rofecoxib Drug Allergy [facility] (1 source) SUMAtriptan Drug Allergy [facility] (1 source) tiZANidine Drug Allergy [facility] (1 source) Warfarin Drug Allergy [facility] Medications Current Medications Medication Drug Class(es) Dates Sig (Normalized) Sig (Original) albuterol 0.833 mg/ml / ipratropium bromide 0.167 mg/ml inhalation solution (20 sources) Anticholinergic, beta2-Adrenergic Agonist Start: 09-09-2024 End: 10-26-2024 take 3 mL by inhalation every six hours as needed for wheezing ipratropium-albute rol (DUONEB) 0.5 mg-3 mg(2.5 mg base)/3 mL nebu Indications: Severe persistent asthma, unspecified whether complicated (HCC) Inhale 3 mL as instructed every 6 hours as needed for wheezing/shortness of breath. 360 mL 4 10/26/2024 Active Start: 06-02-2023 ipratropium-al buterol (Duo-Neb) 0.5-2.5 mg/3 mL nebulizer solution 06/02/2023 Active Start: 06-02-2023 End: 02-25-2024 Ipratropium-Albuterol 0.5 mg -3 mg(2.5 mg base)/3 mL solution for nebulization Discontinued ML INHALATION June 02, 2023 12:00am February 25, 2024 1:49pm Start: 12-03-2021 DuoNeb 2.5 mg- 0.5 mg/3 mL Soln-Inh Refill(s) 0 Start Date: 12/03/21 Status: Ordered albuterol HFA 90 mcg/inh MDI (2 sources) Start: 12-03-2021 albuterol HFA 90 mcg/inh MDI Refill(s) 0 Start Date: 12/03/21 Status: Ordered ALPRAZolam 1 mg oral tablet (20 sources) Benzodiazepine Start: 01-27-2024 take 0.5 mg by mouth once daily Alprazolam Active 0.5 MG PO Daily January 27, 2024 8:23am at night as directed Start: 09-01-2023 take 1 tablet by marcos th once daily in the morning as needed for anxiety Start: 09-01-2023 End: 01-27-2024 take 1 tablet by mouth once daily Alprazolam 1 mg tablet Discontinued 1 MG PO Daily November 25, 2023 12:00am January 27, 2024 8:25am at night as directed amLODIPine 5 mg oral tablet (20 sources) Dihydropyridine Calcium Channel Reggie Start: 02-05-2023 take 1 tablet by mouth once daily amLODIPine 5 mg Tab See Instructions, TAKE 1 TABLET BY MOUTH EVERY DAY, # 90 tab(s), Refills(s) 0, Pharmacy: [id number], 152.4, cm, 03/04/23 11:13:00 EDT, Height/Length Dosing, 95.5, kg, 03/04/23 11:13:00 EDT, Weight Dosing Start Date: 03/17/23 Status: Ordered Start: 04-09-2021 take 5 mg by mouth once daily Amlodipine Active 5 MG PO Daily April 09, 2021 12:00am Start: 01-18-2020 take 1 tablet by marcos once daily take 2.5 mg by mouth once daily amLODIPine (Norvasc) 5 MG tablet Take 2.5 mg by mouth Daily Active Comment on above: Take by mouth once d aily. budesonide 0.125 mg/ml inhalation suspension (5 sources) Corticosteroid Start: 01-21-20 budesonide (PULMICORT) 0.25 mg/2 mL nebulizer solution Indications: Severe persistent asthma without complication (HCC) Use 2 mL via nebulizer two times a day. 36 mL 3 01/20/2025 Active cetirizine hydrochloride 10 mg oral tablet (20 sources) Histamine-1 Receptor Antagonist Start: 06-01-20 take 2 tablets by mouth once daily Start: 06-01-2024 take 20 mg by mouth once daily Cetirizine Active 20 MG PO Daily June 01, 2024 2:14pm Start: 02-28-2023 take 1 capsule by mo [facility] once daily as needed cetirizine 10 mg oral capsule 10 mg = 1 cap(s), Oral, Daily, PRN for allergy symptoms Start Date: 02/28/23 Status: Ordered Start: 12-15-2007 End: 06-01-2024 take 1 tablet by mouth once daily Cetirizine 10 mg Tablet Discontinued 10 MG PO Daily June 02, 2023 12:00am June 01, 2024 2:17pm Start: 12-15-2007 End: 12-17-2024 take 1 tablet by mouth twice daily cetirizine (ZYRTEC) 10 mg tablet Take 1 tablet by mouth two times a day. 0 12/17/2024 Active Comment on above: Take one(1) tablet d aily. clindamycin 300 mg oral capsule (1 source) Lincosamide Antibacterial Start: 11-26-19 take 1 capsule by mouth twice daily clindamycin 300 mg oral cap 300 mg = 1 cap(s), Oral, BID, # 20 cap(s), Refills(s) 0, Pharmacy: [facility]/pharmacy #[id number], 152.5, cm, 11/22/22 10:43:00 EDT, Height/Length Dosing, 98.8, kg, 11/22/22 10:43:00 EDT, Weight Dosing Start Date: 11/25/22 Status: Ordered cloNIDine hydrochloride 0.1 mg oral tablet (20 sources) Central alpha-2 Adrenergic Agonist Start: 04-09-20 Comment on above: Take 0.1 mg by mouth twice daily. Cpap (Continuous Positive Airway Pressure) (6 sources) Start: 06-01-20 Cpap (Continuous Positive Airway Pressure) Active 0 .Route June 01, 2024 12:00am On Hold: pt cant tolerate As directed [facility] Start: 06-01-2024 Cpap (Continuo us Positive Airway Pressure) Active 0 .Route June 01, 2024 12:00am As directed [facility] Cpap (Continuous Positive rway Pressure) unit (12 sources) Start: 06-01-2024 Cpap (Continuo us Positive Airway Pressure) unit Active 0 .Route June 01, 2024 12:00am As directed [facility] Start: 06-01-2024 Cpap (Continuo us Positive Airway Pressure) unit Active 0 .Route May 31, 2024 11:00pm As directed [facility] CPAP/BIPAP/OTHER (20 sources) Start: 11-10-2024 End: 03-27-2052 CPAP/BIPAP/OTHER Indications : NICOLE (obstructive sleep apnea) , Primary hypertension , Severe persistent asthma, unspecified whether complicated (HCC) Type .CPAPSettings into a note to see current settings/supplies/DME information. 1 Each 11/10/2024 03/27/2052 Active delta 8 (20 sources) Start: 01-27-2024 delta 8 Active 1 TAB PO As Directed as needed for pain January 27, 2024 12:00am 1 tab orally; Gummie CBD for pain Complies with drug therapy Start: 01-27-2024 Start: 01-27-2024 delta 8 Active 1 TAB PO As Directed as needed for pain January 27, 2024 12:00am 1 tab orally; Gummie CBD for pain Start: 01-27-2024 delta 8 Active 1 TAB PO As Directed as needed for pain January 26, 2024 11:00pm 1 tab orally; Gummie CBD for pain Start: 01-27-2024 delta 8 Active 1 TAB PO As Directed January 27, 2024 12:00am 1 tab orally; Gummie CBD for pain Start: 01-27-2024 delta 8 Active .Route January 27, 2024 12:00am Gummie CBD for pain dexamethasone 2 mg oral tablet (11 sources) Corticosteroid Start: 09-10-2024 End: 09-16-2024 take 3 tablets by mouth once daily at breakfast dexAMETHasone (DECADRON) 2 mg tablet Take 3 tablets by mouth daily with breakfast for 2 days, THEN 2 tablets daily with breakfast for 2 days, THEN 1 tablet daily with breakfast for 2 days. Patient should start on September 10, 2024. 12 tablet 09/10/2024 09/16/2024 Active Start: 01-29-2024 End: 01-28-2025 take 1 tablet by mouth in the morning dexAMETHasone (Decadron) 4 MG tablet Indications: Allergic urticaria Take 1 tablet (4 mg) by mouth in the morning and 1 tablet (4 mg) in the evening. Take with meals. Do all this for 10 days. Do not ingest bring to office for allergy testing. 20 tablet 01/29/2024 01/28/2025 Discontinued (Therapy completed) [id number] 0.3 ml EPINEPHrine 1 mg/ml auto-injector (20 sources) alpha-Adrenergic Agonist, beta-Adrenergic Agonist, Catecholamine Start: 02-25-2024 Estroven Menopause Supplement (4 sources) Start: 11-12-2022 take 1 tablet by mouth once daily Estroven Menopause Supplement 1 tab(s), Oral, Daily, Refill(s) 0, Prophylaxis Start Date: 11/12/22 Status: Ordered Start: 11-12-2022 Estroven Menop ause Supplement Refill(s) 0 Start Date: 11/12/22 Status: Ordered famotidine 40 mg oral tablet (20 sources) Histamine-2 Receptor Antagonist Start: 10-26-2024 take 1 tablet by mouth once daily famotidine (PEPCID) 40 mg tablet Indications: LPRD (laryngopharyngeal reflux disease) Take 1 tablet by mouth once daily. 90 tablet 2 10/26/2024 Active febuxostat 40 mg oral tablet (20 sources) Xanthine Oxidase Inhibitor Start: 03-18-2014 take 1 tablet by mouth at bedtime Febuxostat (ULOR IC PO) Uloric 0 Active Comment on above: Take by mouth once d aily. gabapentin 400 mg oral capsule (20 sources) Anti-epileptic Agent Start: 09-09-2024 End: 10-09-2024 take 3 capsules by mouth once daily at bedtime gabapentin (NEURONTIN) 300 mg capsule Take 3 capsules by mouth daily at bedtime for 30 days. 90 capsule 09/09/2024 Active Start: 09-09-2024 End: 10-08-2024 take 1 capsule by mouth in the morning gabapentin (NEURONTIN) 400 mg capsule Take 400 mg by mouth at 9 am and 400 mg at 2 pm 60 capsule 09/09/2024 Active Start: 06-01-2024 take 600 mg by mouth twice daily as needed Gabapentin Active 600 MG PO .COMPLEX June 01, 2024 2:15pm 600 mg orally BID, and takes additional dose in afternoon as needed; Start: 06-02-2023 End: 06-01-2024 take 600 mg by mouth three times daily Gabapentin Discontinued 600 MG PO Three times daily June 02, 2023 12:00am June 02, 2023 3:56am Start: 06-02-2023 Gabapentin Act mat MG June 02, 2023 12:00am Start: 01-08-2023 End: 06-01-2024 take 2 capsules by mouth three times daily as needed for pain Gabapentin 300 mg capsule Discontinued 600 MG PO Three times daily as needed for Pain June 02, 2023 12:00am June 01, 2024 2:17pm take 1 tablet by marcos th three times daily gabapentin (NEURONTIN) 600 mg tablet Take 600 mg by mouth three times a day. Suspended End: 06-30-2024 take 1 capsule by mouth three times daily gabapentin (NEURONTIN) 300 mg capsule Take 300 mg by mouth three times a day. 06/30/2024 Discontinued levothyroxine sodium 0.05 mg oral tablet (20 sources) l-Thyroxine Start: 04-09-2021 take 1 tablet by marcos th once daily Start: 01-18-2020 take 50 ug by mouth once daily levothyroxine 50 mcg, Oral, Daily, Refills(s) 0, Thyroid Start Date: 01/18/20 Status: Ordered Start: 01-18-2020 take 50 ug by mouth once daily levothyroxine 50 mcg, Oral, Daily, Refills(s) 0 Start Date: 01/18/20 Status: Ordered Comment on above: Take 50 mcg by mouth daily before breakfast. magnesium oxide 400 mg oral tablet (8 sources) Start: 09-22-19 End: 01-28-20 take 1 tablet by mouth at bedtime magnesium oxide (Mag-Ox) 400 mg tablet Indications: Lumbosacral radiculopathy at L5 , Numbness and tingling , Intractable chronic migraine without aura and without status migrainosus (CMS/HCC) Take 1 tablet (400 mg) by mouth at bedtime 1/2-1 po hs 90 tablet 3 02/02/2024 01/27/2025 Active meclizine hydrochloride 25 mg oral tablet (2 sources) Antiemetic take 1 tablet by mouth three times daily for dizziness meclizine (Antivert) 25 MG tablet take 1 tablet by mouth three times a day if needed for dizziness Oral for 10 0 Active 24 hr metoprolol succinate 50 mg extended release oral capsule (20 sources) beta-Adrenergic Reggie Start: 01-27-20 take 1 capsule by mouth once daily, then take 1 capsule by mouth every twenty-four hours metoprolol succinate XL (Kapspargo) 50 MG 24 hr capsule Take 50 mg by mouth Daily 01/27/2024 Active Start: 01-27-2024 take 1 tablet by marcos once daily Start: 01-27-2024 take 50 mg by mouth once daily Metoprolol Succinate Active 50 MG PO Daily January 27, 2024 12:00am Start: 06-02-2023 End: 11-25-2023 Metoprolol Succinate 25 mg T ablet Extended Release 24 Hr Discontinued 50 MG PO Twice daily 60 June 02, 2023 12:07pm November 25, 2023 10:54am Start: 06-02-2023 End: 11-25-2023 take 50 mg by mouth twice daily Metoprolol Succinate Discontinued 50 MG PO Twice daily 60 June 02, 2023 12:07pm November 25, 2023 10:54am Start: 12-03-2021 Metoprolol suc cinate 25 mg ER Tablet Refills(s) 0 Start Date: 12/03/21 Status: Ordered Start: 04-09-2021 End: 01-27-2024 take 1 tablet by mouth twice daily Metoprolol Succinate 25 mg tablet extended release 24 hr Discontinued 25 MG PO Twice daily November 25, 2023 10:49am January 27, 2024 8:20am take 1 tablet by marcos th once daily metoprolol succinate ER (TOPROL XL) 25 mg 24 hr tablet Take 50 mg by mouth once daily. Active take 1 tablet by marcos th once daily metoprolol succinate ER (TOPROL XL) 25 mg 24 hr tablet Take 25 mg by mouth once daily. Active take 1 tablet by marcos th every twenty-four hours metoprolol succinate XL (Toprol-XL) 25 MG 24 hr tablet Oral for 90 Days 0 Active Comment on above: Take 25 mg by mouth once daily. minocycline 100 mg oral capsule (1 source) Tetracycline-cla ss Drug Start: 08-13-2024 take 1 capsule by mouth once daily in the morning Minocycline 100 mg capsule Active 100 MG PO Every morning August 13, 2024 12:00am Misc Natural Products (ESTROVEN ENERGY PO) (12 sources) Misc Natural Pro ducts (ESTROVEN ENERGY PO) Take by mouth. Active Misc Natural Pro ducts (ESTROVEN ENERGY PO) Take by mouth. 0 Active montelukast 10 mg oral tablet (20 sources) Leukotriene Receptor Antagonist Start: 12-15-2007 End: 02-23-2025 take 1 tablet by mouth at bedtime Comment on above: Take one(1) tablet d aily at bedtime. mupirocin 0.02 mg/mg topical ointment (14 sources) RNA Synthetase Inhibitor Antibacterial Start: 03-12-2022 mupirocin (Bactroban) 2 % ointment apply to affected area three times a day if needed 03/12/2022 Active Start: 12-03-2021 mupirocin Top 2% Oint Refill(s) 0 Start Date: 12/03/21 Status: Ordered Nebulizer Machine (4 sources) Start: 11-15-2022 Nebulizer Mach ine Nebulizer Machine, See Instructions, 1 EA, 0, Use as directed for aerosol treatments q 6rs prn Dx : J44.9, Supply Start Date: 11/15/22 Status: Ordered Nebulizer Supplies (4 sources) Start: 11-15-2022 Nebulizer Supp lies Nebulizer Supplies, See Instructions, 1 EA, 5, Mask, tubing, filters, cup, lid to use for aerosol treatments q 6hrs prn J44.9, Supply Start Date: 11/15/22 Status: Ordered nystatin [id number] unt/ml oral suspension (11 sources) Polyene Antifungal Start: 10-26-2024 End: 11-09-2024 take 5 mL by mouth four times daily nystatin (MYCOSTATIN) 100,000 unit/mL suspension Indications: Laryngeal candidiasis Take 5 mL by mouth four times daily for 14 days. Swish and swallow. 280 mL 10/26/2024 11/09/2024 Active OLANZapine 5 mg oral tablet (3 sources) Atypical Antipsychotic Start: 03-03-2025 take 1 tablet by mouth once daily 10 actuat olodaterol 0.0025 mg/actuat / tiotropium 0.0025 mg/actuat inhalation spray (20 sources) Anticholinergic, beta2-Adrenergic Agonist Start: 11-03-2024 End: 02-23-2025 tiotropium-olodater ol (STIOLTO RESPIMAT) 2.5-2.5 mcg/actuation inhaler Indications: Severe persistent asthma without complication (HCC) Inhale 2 puffs as instructed once daily. 12 g 4 02/23/2025 Active Start: 09-09-2024 End: 02-23-2025 tiotropium-olodaterol (STIOL TO RESPIMAT) 2.5-2.5 mcg/actuation inhaler Inhale 2 Puffs as instructed once daily. 4 g 2 09/09/2024 02/23/2025 Discontinued pantoprazole 40 mg delayed release oral tablet (20 sources) Proton Pump Inhibitor Start: 03-18-2014 take 1 tablet by mouth twice daily Protonix 40 mg tablet 40 mg, Oral, BID, Refills(s) 0, Control of stomach acid Start Date: 03/18/14 Status: Ordered Start: 07-24-2007 take 1 tablet by marcos th twice daily Start: 07-24-2007 pantoprazole s odium(PROTONIX 40 MG TAB) Take one(1) tablet daily. 0 0 07/24/2007 Active End: 06-30-2024 pantoprazole (PROTONIX) 40 m g injection Inject 40 mg intravenously DAILY (6 AM). 06/30/2024 Discontinued Comment on above: Take one(1) tablet d aily. Inject 40 mg intrave nously DAILY (6 AM). promethazine hydrochloride 25 mg oral tablet (20 sources) Phenothiazine Start: 06-02-2023 Promethazine Active MG TABLET June 02, 2023 12:00am Start: 07-24-2007 take 1 tablet by mouth every s ix hours as needed for nausea Comment on above: as necessary rhubarb root extract (ESTROV EN CMPLT MENOPAUSE RLF) 4 mg tab (20 sources) rhubarb root ext ract (ESTROVEN CMPLT MENOPAUSE RLF) 4 mg tab Take by mouth. Suspended rhubarb root ext ract (ESTROVEN CMPLT MENOPAUSE RLF) 4 mg tab Take by mouth. Active Soy Isofla-Blk Cohosh-Mag Bark (Estroven) 155 mg capsule (20 sources) Start: 06-01-2024 take 1 capsule by mouth once daily Soy Isofla-Blk Cohosh-Mag Bark (Estroven) 155 mg capsule Active 1 CAP PO Daily June 01, 2024 2:17pm Complies with drug therapy Start: 06-01-2024 take 1 capsule by mo uth once daily Start: 06-01-2024 take 1 capsule by mo uth once daily Soy Isofla-Blk Cohosh-Mag Bark (Estroven) 155 mg capsule Active 1 CAP PO Daily June 01, 2024 1:17pm Start: 06-01-2024 take 1 capsule by mo uth once daily Soy Isofla-Blk Cohosh-Mag Bark (Estroven) 155 mg capsule Active 1 CAP PO Daily June 01, 2024 2:17pm Start: 06-01-2024 take 1 capsule by mo uth once daily Soy Isofla-Blk Cohosh-Mag Bark (Estroven) 155 mg capsule Active CAP PO Daily June 01, 2024 2:17pm Start: 01-27-2024 End: 06-01-2024 Soy Isofla-Blk Cohosh-Mag Ba rk (Estroven) 155 mg capsule Discontinued CAP PO January 26, 2024 11:00pm June 01, 2024 1:17pm Start: 01-27-2024 End: 06-01-2024 Soy Isofla-Blk Cohosh-Mag Ba rk (Estroven) 155 mg capsule Discontinued CAP PO January 27, 2024 12:00am June 01, 2024 2:17pm Start: 01-27-2024 Soy Isofla-Blk Cohosh-Mag Bark (Estroven) 155 mg capsule Active CAP PO January 27, 2024 12:00am Vitamin D3 5000 intl units ( 125 mcg) oral tab (2 sources) Start: 11-12-2022 Vitamin D3 500 0 intl units (125 mcg) oral tab Refills(s) 0 Start Date: 11/12/22 Status: Ordered Completed/Discontinued Medications Medication Drug Class(es) Dates Sig (Normalized) Sig (Original) acetaminophen 325 mg / HYDROcodone bitartrate 5 mg oral tablet (20 sources) Opioid Agonist Start: 02-05-2024 End: 02-25-2024 take 1 tablet by mouth every six hours as needed for pain Hydrocodone-Acetami nophen 5-325 mg tablet Discontinued 1 TAB PO Q6H as needed for pain 12 3 February 05, 2024 February 25, 2024 1:48pm acetaminophen 325 mg / oxyCODONE hydrochloride 5 mg oral tablet (20 sources) Opioid Agonist Start: 02-05-2024 End: 02-25-2024 take 1 tablet by mouth every six hours as needed for pain Oxycodone-Acetamino phen (Percocet) 5-325 mg tablet Discontinued 1 TAB PO Q6H as needed for pain 5 February 05, 2024 February 25, 2024 1:49pm Start: 03-19-2023 take 1-2 tablets by mouth every four hours as needed for pain Percocet 5 mg-325 mg oral tablet See Instructions, 30 tab(s), Refill(s) 0, Take one to two every 4hours as needed for pain., [facility]/pharmacy #[id number], 152.4, cm, 03/04/23 11:13:00 EDT, Height/Length Dosing, 95.5, kg, 03/04/23 11:13:00 EDT, Weight Dosing Start Date: 03/19/23 Status: Ordered albuterol 5 mg/ml inhalation solution (20 sources) beta2-Adrenergic Agonist Start: 09-01-2024 End: 09-01-2024 take 1 dose by inhalation once 2.5 mg, INHALATION, ONCE, 1 dose, On Fri09/01/24 at 1200, PLEASE NOTE: This is the CONCENTRATED product (0.5%) Start: 06-22-2024 Start: 04-22-2024 End: 09-01-2024 Start: 09-10-2023 albuterol HFA 90 mcg/act inhaler 09/10/2023 Active Start: 02-28-2023 Albuterol (Eqv -ProAir HFA) 2 puff(s), Inhalation, Shortness of breath or wheezing, Refill(s) 0 Start Date: 02/28/23 Status: Ordered Start: 04-09-2021 End: 06-22-2024 take 1 puff(s) by inhalation every four hours as needed Start: 04-09-2021 Albuterol Sulf ate Active 2 INH INHALATION Q6H April 09, 2021 12:00am Start: 12-15-2007 ALBUTEROL SULF ATE 0.63 MG/3 ML NEB SOLUTION as necessary 0 0 12/15/2007 Suspended Start: 10-30-2007 take 1 puff(s) by in halation once daily as needed for wheezing ALBUTEROL 90 MCG/ACTUATION AEROSOL INHALER Inhale one(1) - two(2) puffs four(4) times a day as needed for wheezing and shortness of breath. 0 0 10/30/2007 Active Comment on above: Inhale one(1) - two( 2) puffs four(4) times a day as needed for wheezing and shortness of breath. as necessary amitriptyline hydrochloride 100 mg oral tablet (20 sources) Tricyclic Antidepressant Start: End: take 1 tablet by mouth at bedtime Amitriptyline 100 mg tablet Discontinued 100 MG PO Bedtime April 09, 2021 12:00am June 02, 2023 2:17am Comment on above: Take 100 mg by mouth daily at bedtime. 24 hr amphetamine aspartate 3.75 mg / amphetamine sulfate 3.75 mg / dextroamphetamine saccharate 3.75 mg / dextroamphetamine sulfate 3.75 mg extended release oral capsule (20 sources) Central Nervous System Stimulant Start: End: take 1 capsule by mouth once daily, then take 1 capsule by mouth every twenty-four hours Dextroamphetamine-Am phetamine (Adderall Xr) 15 mg Capsule,Extended Release 24hr Discontinued 15 MG PO Daily April 09, 2021 12:00am June 02, 2023 2:17am azelastine hydrochloride 0.137 mg/actuat metered dose nasal spray (9 sources) Histamine-1 Receptor Antagonist Start: End: take 1 spray(s) nasal route twice daily azelastine 0.1% nasal spray 1 spray in each nostril twice daily for 30 days 30 mL 4 11/22/2024 12/17/2024 Discontinued baclofen 10 mg oral tablet (6 sources) gamma-Aminobutyric Acid-ergic Agonist Start: End: take 1 tablet by mouth in the morning, then take 1 tablet by mouth in the evening, then take 1 tablet by mouth at bedtime baclofen (Lioresal) 10 MG tablet Indications: Idiopathic progressive polyneuropathy , Intractable migraine with aura with status migrainosus (CMS/HCC) Take 1 tablet (10 mg) by mouth in the morning and 1 tablet (10 mg) in the evening and 1 tablet (10 mg) before bedtime. 90 tablet 3 04/01/2024 07/05/2024 Discontinued (Therapy completed) End: 05-07-2022 take 1 tablet by mouth once daily baclofen 20 mg ORAL tablet Take 20 mg by mouth once daily. 0 05/07/2022 Discontinued (Discontinued by Patient) Comment on above: Take 20 mg by mouth once daily. biotin 10 mg oral capsule (6 sources) End: 07-05-20 biotin 10 MG capsule Take 100 mg by mouth Daily 07/05/2024 Discontinued (Therapy completed) busPIRone hydrochloride 10 mg oral tablet (20 sources) Start: 11-25-19 End: 01-27-20 take 1 tablet by mouth twice daily Buspirone 10 mg tablet Discontinued 10 MG PO Twice daily November 25, 2023 12:00am January 27, 2024 8:18am Cannabinoids (medical cannabis) (2 sources) End: 09-22-19 Cannabinoids (medical cannabis) Take 1 each by mouth. Delta 8 0 09/22/2023 Discontinued cholecalciferol 0.125 mg oral capsule (20 sources) Vitamin D Start: 11-25-19 End: 01-27-20 take 1 capsule by mouth once daily Cholecalciferol (Vitamin D3) 125 mcg (5,000 unit) capsule Discontinued 125 MCG PO Daily November 25, 2023 12:00am January 27, 2024 8:18am Start: 06-02-2023 End: 03-03-2025 take 1 tablet by mouth once daily Cholecalciferol (Vitamin D3) 125 mcg (5,000 unit) Tablet Discontinued 125 MCG PO Daily June 02, 2023 12:00am March 03, 2025 2:53pm take 1 tablet by marcos th once daily cholecalciferol (VITAMIN D-3) 5,000 unit tab Take 5,000 Units by mouth once daily. Active End: 07-05-2024 take 1 capsule by mouth in the morning cholecalciferol (Vitamin D-3) 50 MCG (2000 UT) capsule Take 2,000 Units by mouth in the morning. 07/05/2024 Discontinued (Therapy completed) cyclobenzaprine hydrochloride 10 mg oral tablet (20 sources) Muscle Relaxant Start: 04-09-2021 End: 07-05-2024 take 1 tablet by mouth three times daily Cyclobenzaprine 10 mg tablet Discontinued 10 MG PO Three times daily April 09, 2021 12:00am January 27, 2024 8:19am Start: 04-09-2021 take 10 mg by mouth every eight hours Cyclobenzaprine Active 10 MG PO Q8H April 09, 2021 12:00am cyproheptadine hydrochloride 4 mg oral tablet (5 sources) End: 06-30-2024 take 1 tablet by mouth every eight hours as needed cyproheptadine (PERIACTIN) 4 mg tablet Take 4 mg by mouth three times daily as needed. 06/30/2024 Discontinued Comment on above: Take 4 mg by mouth t hree times daily as needed. diphenhydrAMINE hydrochloride 25 mg oral capsule (20 sources) Histamine-1 Receptor Antagonist Start: 06-02-2023 End: 03-03-2025 take 1 capsule by mouth twice daily as needed Diphenhydramine Hcl (Benadryl) 25 mg Capsule Discontinued 25 MG PO Twice daily as needed for Allergy Symptoms June 02, 2023 12:00am March 03, 2025 2:53pm Start: 01-08-2023 End: 01-28-2025 take 1 tablet by mouth three times daily as needed diphenhydrAMINE (BENADryl) 25 MG tablet TAKE 1 TABLET BY MOUTH THREE TIMES A DAY WITH GABAPENTIN NEEDED 01/08/2023 01/28/2025 Discontinued (Therapy completed) dipyridamole 25 mg oral tablet (1 source) Platelet Aggregation Inhibitor End: 05-07-2022 take 1 tablet by mouth once daily dipyridamole (PERSANTINE) 25 mg ORAL tablet Take 25 mg by mouth once daily. 0 05/07/2022 Discontinued (Discontinued by Patient) Comment on above: Take 25 mg by mouth once daily. dronabinol 10 mg oral capsule (20 sources) Cannabinoid Start: 04-09-2021 End: 06-02-2023 take 1 capsule by mouth twice daily Dronabinol 10 mg capsule Discontinued 10 MG PO Twice daily April 09, 2021 12:00am June 02, 2023 2:17am End: 06-30-2024 take 1 capsule by mouth twice daily before mealtime dronabinol (MARINOL) 5 mg capsule Take 5 mg by mouth twice daily before meals. 06/30/2024 Discontinued Comment on above: Take 5 mg by mouth t wice daily before meals. fenofibrate 134 mg oral capsule (20 sources) Peroxisome Proliferator Receptor alpha Agonist Start: 11-25-19 End: 01-27-20 take 1 capsule by mouth once daily at mealtime Fenofibrate Micronized 134 mg capsule Discontinued 134 MG PO Daily November 25, 2023 12:00am January 27, 2024 8:19am With a meal once a day. FENTANYL TRANSDERM. (1 source) End: 05-07-20 FENTANYL TRANSDERM. Apply 25 mcg as directed every 72 hours. 0 05/07/2022 Discontinued (Discontinued by Patient) Comment on above: Apply 25 mcg as dire cted every 72 hours. fluconazole 150 mg oral tablet (20 sources) Azole Antifungal Start: 02-25-20 End: 03-02-20 Fluconazole 150 mg tablet Discontinued 150 MG PO February 25, 2024 12:00am March 02, 2024 2:04pm Start: 03-07-2023 take 1 tablet by mouth once Di flucan 150 mg Tab 150 mg = 1 tab(s), Oral, Once, # 1 tab(s), Refills(s) 0, [id number], 152.4, cm, 03/04/23 11:13:00 EDT, Height/Length Dosing, 95.5, kg, 03/04/23 11:13:00 EDT, Weight Dosing Start Date: 03/07/23 Status: Ordered Start: 11-27-2022 take 4 tablets by mouth once D iflucan 150 mg Tab 150 mg = 1 tab(s), Oral, Once, take one tab on day 1 and one tab on day 4, # 1 tab(s), Refills(s) 1, Pharmacy: [facility]/pharmacy #[id number], 152.5, cm, 11/22/22 10:43:00 EDT, Height/Length Dosing, 98.8, kg, 11/22/22 10:43:00 EDT, Weight Dosing Start Date: 11/27/22 Status: Ordered 12 hr guaiFENesin 1200 mg extended release oral tablet (4 sources) guaiFENesin (MUC INEX) 1,200 mg Ta12 Take by mouth. Suspended guanFACINE 2 mg oral tablet (20 sources) Central alpha-2 Adrenergic Agonist Start: 3 End: take 1 tablet by mouth every twenty-four hours at bedtime Guanfacine 2 mg tablet extended release 24 hr Discontinued 2 MG PO Bedtime June 02, 2023 12:00am January 27, 2024 8:19am Start: 11-12-2022 End: 11-25-2023 take 1 tablet by mouth once daily at bedtime Guanfacine 2 mg tablet Discontinued 2 MG PO Daily at bedtime November 25, 2023 12:00am November 25, 2023 10:55am End: 06-30-2024 take 1 tablet by mouth once daily guanFACINE (INTUNIV) 2 mg ER 24 hr tablet(s) Take 2 mg by mouth once daily. 06/30/2024 Discontinued Comment on above: Take 2 mg by mouth o nce daily. hydroxychloroquine sulfate 200 mg oral tablet (16 sources) Antimalarial, Antirheumatic Agent Start: 2024 End: 2024 take 2 tablets by mouth once daily hydrOXYchloroQUINE (PLAQUENIL) 200 mg tablet Take 2 tablets by mouth once daily. 60 tablet 2 11/01/2024 12/17/2024 Discontinued Start: 01-29-2023 End: 09-22-2023 take 1 tablet by mouth in the morning hydroxychloroquine (Plaquenil) 200 MG tablet Take 1 tablet by mouth in the morning. 0 01/29/2023 09/22/2023 Discontinued hydrOXYzine hydrochloride 25 mg oral tablet (20 sources) Antihistamine Start: 09-09-2024 End: 10-26-2024 take 1 tablet by mouth every eight hours as needed hydrOXYzine HCl (ATARAX) 25 mg tablet Take 1 tablet by mouth every 8 hours as needed for anxiety. 60 tablet 09/09/2024 10/26/2024 Discontinued Start: 08-13-2024 End: 03-03-2025 take 1 tablet by mouth twice daily as needed Hydroxyzine Hcl 25 mg tablet Discontinued 25 MG PO Twice daily as needed for itching August 13, 2024 1:00am March 03, 2025 2:54pm Start: 11-25-2023 take 1 tablet by marcos th every six hours as needed hydrOXYzine HCl (Atarax) 50 MG tablet Take 50 mg by mouth every 6 (six) hours if needed 11/25/2023 Active Start: 11-25-2023 End: 02-25-2024 take 1 tablet by mouth four times daily Hydroxyzine Hcl 50 mg tablet Discontinued 50 MG PO Four times daily November 25, 2023 12:00am February 25, 2024 1:48pm hyoscyamine sulfate 0.125 mg sublingual tablet (20 sources) Start: 04-09-2021 End: 06-02-2023 take 1 tablet under the tongue twice daily as needed Hyoscyamine Sulfate 0.125 mg tablet, sublingual Discontinued 0.125 MG SUBLINGUAL Twice daily as needed for Abdominal Discomfort April 09, 2021 12:00am June 02, 2023 2:17am End: 06-30-2024 take 0.125 mg under the tongue every four hours as needed hyoscyamine sublingual (LEVSIN SL) 0.125 mg Dissolve 0.125 mg under the tongue every 4 hours as needed. 06/30/2024 Discontinued Comment on above: Dissolve 0.125 mg un austin the tongue every 4 hours as needed. Ipratropium (5 sources) Anticholinergic End: 06-30-2024 IPRATROPIUM BROMIDE INHALATION Inhale as instructed every 4 hours as needed. 06/30/2024 Discontinued IPRATROPIUM BROM JOYA INHALATION Inhale as instructed every 4 hours as needed. Active IPRATROPIUM BROM JOYA INHALATION Inhale as instructed every 4 hours as needed. 0 Active Comment on above: Inhale as instructed every 4 hours as needed. linaclotide 0.29 mg oral capsule (5 sources) Guanylate Cyclase-C Agonist End: 06-30-20 take 6 capsules by mouth once daily in the morning linaCLOtide (LINZESS) 290 mcg capsule Take by mouth DAILY (6 AM). 06/30/2024 Discontinued Comment on above: Take by mouth DAILY (6 AM). lurasidone hydrochloride 20 mg oral tablet (20 sources) Atypical Antipsychotic Start: 11-25-19 End: 01-27-20 Lurasidone (Latuda) 20 mg tablet Discontinued 20 MG PO Daily November 25, 2023 12:00am January 27, 2024 8:19am 1/2 tablet in evening must administer with food (at least 350 calories) methocarbamol 750 mg oral tablet (20 sources) Muscle Relaxant Start: 02-05-20 End: 02-25-20 take 1 tablet by mouth three times daily Methocarbamol 750 mg tablet Discontinued 750 MG PO Three times daily February 05, 2024 12:00am February 25, 2024 1:49pm mucinex decongestant expectornat (7 sources) Start: 09-01-19 End: 03-03-20 mucinex decongestant expectornat Discontinued September 01, 2024 1:00am March 03, 2025 2:54pm Start: 09-01-2024 Start: 09-01-2024 mucinex decong estant expectornat Active September 01, 2024 1:00am Start: 09-01-2024 mucinex decong estant expectornat Active September 01, 2024 12:00am nitrofurantoin, macrocrystals 25 mg / nitrofurantoin, monohydrate 75 mg oral capsule (20 sources) Nitrofuran Antibacterial Start: 03-01-2021 End: 04-09-2021 take 1 capsule by mouth twice daily at mealtime Nitrofurantoin Monohyd/M-Cryst (Macrobid) 100 mg capsule Discontinued 100 MG PO Twice daily 10 March 01, 2021 12:00am April 09, 2021 10:08am must administer with a meal/food nortriptyline 10 mg oral capsule (17 sources) Tricyclic Antidepressant Start: 07-05-2024 End: 03-03-2025 take 1 capsule by mouth once daily at bedtime Nortriptyline 10 mg capsule Discontinued 10 MG PO Daily at bedtime August 13, 2024 1:00am March 03, 2025 2:54pm ondansetron 4 mg disintegrating oral tablet (20 sources) Serotonin-3 Receptor Antagonist Start: 02-05-2024 End: 02-25-2024 take 1 tablet by mouth four times daily as needed for nausea and vomiting Ondansetron 4 mg tablet,disintegrati ng Discontinued 4 MG PO Four times daily as needed for nausea and vomiting February 05, 2024 12:00am February 25, 2024 1:49pm Start: 06-02-2023 take 1 tablet by marcos th three times daily as needed for nausea and vomiting Start: 11-22-2022 End: 07-05-2024 take 1 tablet by mouth every eight hours as needed for nausea ondansetron 8 mg Dis Tab 8 mg = 1 tab(s), Oral, q8hr, PRN Nausea/Vomiting, # 12 tab(s), Refills(s) 1, Pharmacy: [facility]/pharmacy #[id number], 152.5, cm, 11/22/22 10:43:00 EDT, Height/Length Dosing, 98.8, kg, 11/22/22 10:43:00 EDT, Weight Dosing Start Date: 11/22/22 Status: Ordered plecanatide 3 mg oral tablet (4 sources) Start: 04-09-2021 End: 06-02-2023 take 1 tablet by mouth once daily Plecanatide (Trulance) 3 mg tablet Discontinued 3 MG PO Daily April 09, 2021 12:00am June 02, 2023 2:17am Plecanatide (Trulance) 3 mg tablet (20 sources) Start: 04-09-2021 End: 06-02-2023 take 1 tablet by mouth once daily Plecanatide (Trulance) 3 mg tablet Discontinued 3 MG PO Daily April 08, 2021 11:00pm June 02, 2023 1:17am Start: 04-09-2021 End: 06-02-2023 take 1 tablet by mouth once daily Plecanatide (Trulance) 3 mg tablet Discontinued 3 MG PO Daily April 09, 2021 12:00am June 02, 2023 2:17am Start: 04-09-2021 take 1 tablet by marcos th once daily Plecanatide (Trulance) 3 mg tablet Active 3 MG PO Daily April 09, 2021 12:00am prochlorperazine 10 mg oral tablet (1 source) Phenothiazine End: 05-07-2022 take 1 tablet by mouth every six hours as needed prochlorperazine (COMPAZINE) 10 mg ORAL tablet Take 10 mg by mouth every 6 hours as needed. 0 05/07/2022 Discontinued (Discontinued by Patient) Comment on above: Take 10 mg by mouth every 6 hours as needed. rizatriptan 10 mg oral tablet (2 sources) Serotonin-1b and Serotonin-1d Receptor Agonist Start: 07-24-2007 End: 05-07-2022 rizatriptan benzoate(MAXALT 10 MG TAB) as necessary 0 0 07/24/2007 05/07/2022 Discontinued (Discontinued by Patient) Comment on above: as necessary spironolactone 50 mg oral tablet (20 sources) Aldosterone Antagonist Start: 11-22-2022 End: 07-05-2024 take 1 tablet by mouth once daily as needed Spironolactone 50 mg tablet Discontinued 50 MG PO Daily as needed November 25, 2023 12:00am February 25, 2024 1:49pm for swelling Comment on above: Take 50 mg by mouth once daily. sucralfate 1000 mg oral tablet (20 sources) Aluminum Complex Start: 04-09-2021 End: 06-02-2023 take 1 tablet by mouth three times daily Sucralfate 1 gram tablet Discontinued 1 GM PO Three times daily April 09, 2021 12:00am October 23rd, 2023 2:17am sulfamethoxazole 800 mg / trimethoprim 160 mg oral tablet (20 sources) Dihydrofolate Reductase Inhibitor Antibacterial, Sulfonamide Antimicrobial Start: 02-25-2024 End: 03-02-2024 Sulfamethoxazole-Tri methoprim 800-160 mg tablet Discontinued 1 TAB PO February 25, 2024 12:00am March 02, 2024 2:05pm theophylline 200 mg extended release oral capsule (20 sources) Methylxanthine Start: 01-19-2025 End: 02-23-2025 take 1 capsule by mouth once daily theophylline ER (JEN-24) 200 mg 24 hr capsule Indications: Severe persistent asthma without complication (HCC) Take 1 capsule by mouth once daily. 90 capsule 2 01/19/2025 02/23/2025 Discontinued Start: 09-09-2024 End: 04-17-2025 take 1 tablet by mouth twice daily theophylline ER 100 mg 12 hr tablet Take 1 tablet by mouth two times a day. 60 tablet 2 09/09/2024 01/17/2025 Discontinued Start: 07-02-2024 End: 01-24-2025 take 1 tablet by mouth twice daily theophylline ER 200 mg 12 hr tablet Indications: Asthma exacerbation Take 1 tablet by mouth two times a day. 180 tablet 1 07/28/2024 01/24/2025 Suspended Start: 06-01-2024 End: 01-28-2025 take 1 tablet by mouth every twelve hours Start: 01-27-2024 End: 02-25-2024 take 2 tablets by mouth twice daily Theophylline 300 mg tablet extended release 12 hr Discontinued 150 MG PO Twice daily January 27, 2024 8:28am February 25, 2024 1:49pm 1/2 tablet twice daily of a 300 mg tab. Start: 01-27-2024 End: 01-27-2024 take 150 mg by mouth twice daily Theophylline Discontinued 150 MG PO Twice daily January 27, 2024 8:21am January 27, 2024 8:29am Start: 04-09-2021 End: 01-27-2024 take 1 tablet by mouth twice daily Theophylline 300 mg tablet extended release 12 hr Discontinued 300 MG PO Twice daily April 09, 2021 12:00am January 27, 2024 8:25am take 1 tablet by marcos twice daily theophylline ER 200 mg 12 hr tablet Take 200 mg by mouth twice daily. Active Comment on above: Take 200 mg by mouth twice daily. thiamine 100 mg oral tablet (20 sources) Start: 04-01-20 End: 03-27-20 take 1 tablet by mouth once daily Thiamine Hcl (Vitamin B1) 100 mg tablet Discontinued 100 MG PO Daily June 01, 2024 12:00am September 01, 2024 8:37am topiramate 25 mg oral tablet (2 sources) Start: 10-30-19 End: 05-07-20 topiramate(TOPAMAX 25 MG TAB) TAKES 2 TABS IN AM/ 3 TABS AT HS 0 0 10/30/2007 05/07/2022 Discontinued (Discontinued by Patient) Comment on above: TAKES 2 TABS IN AM/ 3 TABS AT HS ziprasidone 20 mg oral capsule (6 sources) Atypical Antipsychotic Start: 01-08-20 End: 07-05-20 take 1 capsule by mouth in the morning ziprasidone (Geodon) 20 MG capsule Take 20 mg by mouth in the morning and 20 mg in the evening. Take with meals. 01/08/2024 07/05/2024 Discontinued (Therapy completed) ZOLMitriptan 2.5 mg disintegrating oral tablet (20 sources) Serotonin-1b and Serotonin-1d Receptor Agonist Start: 04-09-20 End: 06-02-20 Zolmitriptan 2.5 mg Tablet,Disintegrati ng Discontinued 2.5 MG PO As Directed April 09, 2021 12:00am June 02, 2023 2:17am End: 06-30-2024 ZOLMitriptan (ZOMIG) 2.5 mg tablet Take 2.5 mg by mouth as needed. 06/30/2024 Discontinued Comment on above: Take 2.5 mg by mouth as needed. Problems Active Problems Problem Classification Problem Date Documented Da te Episodic/Chronic Allergic reactions (20 sources) Acute eczema; Translations: [Allergy to methylprednisolone] Onset: 4 02-28-2023 Episodic Anxiety disorders (20 sources) Generalized anxiety disorder; Translations: [Generalized anxiety disorder] Onset: 5 09-08-2024 Chronic Asthma (20 sources) Unspecified asthma, uncomplicated; Translations: [Asthma, unspecified type, unspecified] Onset: 04-01-201 0 Resolved: 10-30-2007 Chronic Chronic obstructive pulmonary disease and bronchiectasis (10 sources) Chronic obstructive pulmonary disease, unspecified; Translations: [Emphysema, unspecified] Onset: 3 03-18-2014 Chronic Delirium, dementia, and amnestic and other cognitive disorders (12 sources) Dementia; Translations: [Unspecified dementia without behavioral disturbance] Onset: 4 09-04-2023 Chronic Diseases of mouth; excluding dental (4 sources) Dry mouth, unspecified; Translations: [DRY MOUTH UNSPECIFIED] Onset: 3 Episodic Disorders of lipid metabolism (20 sources) Hypertriglyceridemia; Translations: [Pure hyperglyceridemia] Onset: 5 09-08-2024 Chronic E Codes: Adverse effects of medical drugs (2 sources) Adverse reaction to drug; Translations: [Adverse effect of unspecified drugs, medicaments and biological substances, subsequent encounter] Onset: 5 12-17-2024 Episodic Esophageal disorders (20 sources) Gastroesophageal reflux disease; Translations: [Gastro-esophageal reflux disease without esophagitis] Onset: 2 10-30-2007 Chronic Essential hypertension (20 sources) Essential (primary) hypertension; Translations: [Hypertensive disorder] Onset: 7 03-18-2014 Chronic Gastritis and duodenitis (20 sources) Gastritis; Translations: [Gastritis, unspecified, without bleeding] Onset: 4 04-09-2021 Episodic Gastroduodenal ulcer (except hemorrhage) (1 source) Peptic ulcer, site unspecified, unspecified as acute or chronic, without hemorrhage or perforation; Translations: [PU SITE UNS UNS AC/CHR NO HEM/PERF] Onset: 3 Chronic Gastrointestinal hemorrhage (2 sources) Duodenal ulcer with hemorrhage 02-28-2023 Chronic Genitourinary symptoms and ill-defined conditions (8 sources) Genuine stress incontinence; Translations: [Urge incontinence of urine] 01-18-2020 Chronic Genitourinary symptoms and ill-defined conditions (9 sources) Other abnormal findings in urine; Translations: [Nocturia] Onset: 3 01-18-2020 Episodic Glaucoma (20 sources) Glaucoma; Translations: [Unspecified glaucoma] Onset: 5 02-28-2023 Chronic Gout and other crystal arthropathies (20 sources) Chronic gout, unspecified, without tophus (tophi); Translations: [Gout] Onset: 3 03-18-2014 Chronic Headache; including migraine (20 sources) Migraine, unspecified, not intractable, without status migrainosus; Translations: [Transformed migraine] Onset: 0 03-18-2014 Chronic Headache; including migraine (20 sources) Headache; Translations: [Headache] Onset: 4 06-02-2023 Episodic Headache; including migraine (5 sources) Headache; including migraine; Translations: [HEADACHE UNSPECIFIED] Onset: 2 Heart valve disorders (20 sources) Nonrheumatic pulmonary valve insufficiency; Translations: [Pulmonary valve disorders] Onset: 4 06-01-2024 Chronic Immunity disorders (5 sources) Polyclonal hypergammaglobulinemia ; Translations: [Polyclonal hypergammaglobulinemia ] Onset: 3 12-03-2021 Chronic Immunizations and screening for infectious disease (20 sources) Anti-nuclear factor positive; Translations: [Other specified abnormal immunological findings in serum] Onset: 4 01-27-2024 Episodic Lymphadenitis (5 sources) Nonspecific lymphadenitis, unspecified; Translations: [NONSPECIFIC LYMPHADENITIS UNS] Onset: 3 Episodic Miscellaneous mental health disorders (12 sources) Primary insomnia; Translations: [Primary insomnia] Onset: 4 09-20-2023 Chronic Mood disorders (20 sources) Bipolar disorder; Translations: [Bipolar I disorder] Onset: 5 11-22-2022 Chronic Mood disorders (1 source) Mood disorders; Translations: [DEPRESSION UNSPECIFIED] Onset: 3 Mycoses (1 source) Infective laryngitis; Translations: [Other sites of candidiasis] 10-26-2024 Episodic Nausea and vomiting (4 sources) Nausea with vomiting, unspecified; Translations: [NAUSEA WITH VOMITING UNSPECIFIED] Onset: 3 Episodic Nutritional deficiencies (20 sources) Deficiency of macronutrients; Translations: [Unspecified severe protein-calorie malnutrition] Onset: 4 07-24-2024 Chronic Osteoarthritis (13 sources) Unspecified osteoarthritis, unspecified site; Translations: [Arthritis of hand] Onset: 3 09-20-2023 Chronic Other aftercare (2 sources) Patient encounter status; Translations: [Encounter for therapeutic drug level monitoring] 10-26-2024 Episodic Other and unspecified benign neoplasm (4 sources) History of polyp of colon; Translations: [Personal history of adenomatous and serrated colon polyps] 11-18-2024 Episodic Other circulatory disease (1 source) Arteritis, unspecified; Translations: [ARTERITIS UNSPECIFIED] Onset: 3 Chronic Other circulatory disease (1 source) Other specified symptoms and signs involving the circulatory and respiratory systems; Translations: [OTH SPEC SX SIGNS INVLV CIRC RS] Onset: 2 Episodic Other connective tissue disease (1 source) Arthrodesis status; Translations: [ARTHRODESIS STATUS] Onset: 3 Episodic Other connective tissue disease (1 source) Fibromyalgia; Translations: [FIBROMYALGIA] Onset: 3 Episodic Other connective tissue disease (1 source) Trigger thumb of left hand; Translations: [Trigger thumb, left thumb] Onset: 3 Episodic Other connective tissue disease (2 sources) Plantar fasciitis 02-28-2023 Episodic Other connective tissue disease (1 source) Other muscle spasm; Translations: [Leg muscle spasm] Onset: 5 Episodic Other disorders of stomach and duodenum (4 sources) Disorder of function of stomach; Translations: [Disease of stomach and duodenum, unspecified] 11-18-2024 Episodic Other ear and sense organ disorders (1 source) Unspecified hearing loss, unspecified ear; Translations: [UNS HEARING LOSS UNSPECIFIED EAR] Onset: 3 Chronic Other ear and sense organ disorders (1 source) Impacted cerumen in right ear; Translations: [Impacted cerumen, right ear] 10-26-2024 Episodic Other eye disorders (1 source) Dry eye syndrome of bilateral lacrimal glands; Translations: [DRY EYE SYNDROME DEB LACRIML GLANDS] Onset: 3 Episodic Other gastrointestinal disorders (20 sources) Irritable bowel syndrome; Translations: [Irritable bowel syndrome without diarrhea] Onset: 4 10-30-2007 Chronic Other gastrointestinal disorders (1 source) Irritable bowel syndrome with constipation; Translations: [IRRITABLE BOWEL SYND W/CONSTIPATION] Onset: 2 Chronic Other gastrointestinal disorders (5 sources) Irritable bowel syndrome characterized by constipation; Translations: [Irritable bowel syndrome with constipation] 12-03-2021 Chronic Other gastrointestinal disorders (1 source) Intolerance to food; Translations: [Malabsorption due to intolerance, not elsewhere classified] 12-17-2024 Chronic Other gastrointestinal disorders (1 source) Malabsorption due to intolerance, not elsewhere classified; Translations: [Food intolerance in adult] Onset: 5 Chronic Other gastrointestinal disorders (20 sources) Dysphagia; Translations: [Other dysphagia] Onset: 4 Episodic Other gastrointestinal disorders (1 source) Other dysphagia; Translations: [Other dysphagia] Onset: 2 Episodic Other gastrointestinal disorders (4 sources) History of gastritis 12-03-2021 Episodic Other gastrointestinal disorders (2 sources) History of pancreatitis 02-28-2023 Episodic Other gastrointestinal disorders (9 sources) Dysphagia, unspecified; Translations: [Dysphagia, unspecified] Onset: 5 02-25-2024 Episodic Other gastrointestinal disorders (3 sources) Oropharyngeal dysphagia; Translations: [Dysphagia, oropharyngeal phase] 04-01-2024 Episodic Other hereditary and degenerative nervous system conditions (1 source) Restless legs syndrome; Translations: [RESTLESS LEGS SYNDROME] Onset: 3 Chronic Other liver diseases (9 sources) Fatty (change of) liver, not elsewhere classified; Translations: [Other chronic nonalcoholic liver disease] Onset: 3 02-25-2024 Chronic Other liver diseases (20 sources) Steatosis of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 Performed By: #### 5 7021-8 ####[facility]CL[facility] [id number] [place] [address] [place] Eosinophils/100 WBC (Bld) 4.1 % Normal [facility] Comment on above: Order Comment: Speci men Type: BLOOD SPECIMENOrdering Facility: [facility] Address: [address] [place] [address] Performed By: #### 5 7021-8 ####[facility]CLIA [id number] [place] [address] [place] Erythrocyte distribution width (RBC) [Ratio] 13.0 % Normal 11.5-15.0 [facility] Comment on above: Order Comment: Speci men Type: BLOOD SPECIMENOrdering Facility: [facility] Address: [address] [place] [address] Performed By: #### 5 7021-8 ####[facility] LABIA [id number] [place] [address] [place] Hematocrit (Bld) [Volume fraction] 43.2 % Normal 36.0-46.0 [facility] Comment on above: Order Comment: Speci men Type: BLOOD SPECIMENOrdering Facility: [facility] Address: [address] [place] [address] Performed By: #### 5 7021-8 ####[facility] LABIA [id number] [place] [address] [place] Hemoglobin (Bld) [Mass/Vol] 14.8 g/dL Normal 11.5-15.5 [facility] Comment on above: Order Comment: Speci men Type: BLOOD SPECIMENOrdering Facility: [facility] Address: [address] [place] [address] Performed By: #### 5 7021-8 ####[facility]CL[facility] [id number] [place] [address] [place] Immature granulocytes (Bld) [#/Vol] 0.03 10*3/uL Normal <0.10 [facility] Comment on above: Order Comment: Speci men Type: BLOOD SPECIMENOrdering Facility: [facility] Address: [address] [place] [address] Performed By: #### 5 7021-8 ####[facility]CL[facility] [id number] [place] [address] [place] Immature granulocytes/100 WBC (Bld) 0.4 % Normal [facility] Comment on above: Order Comment: Speci men Type: BLOOD SPECIMENOrdering Facility: [facility] Address: [address] [place] [address] Performed By: #### 5 7021-8 ####[facility]CL[facility] [id number] [place] [address] [place] Lymphocytes (Bld) [#/Vol] 2.21 10*3/uL Normal 1.00-4.00 [facility] Comment on above: Order Comment: Speci men Type: BLOOD SPECIMENOrdering Facility: [facility] Address: [address] [place] [address] Performed By: #### 5 7021-8 ####[facility]CL[facility] [id number] [place] [address] [place] Lymphocytes/100 WBC (Bld) 31.5 % Normal [facility] Comment on above: Order Comment: Speci men Type: BLOOD SPECIMENOrdering Facility: [facility] Address: [address] [place] [address] Performed By: #### 5 7021-8 ####[facility]CL[facility] [id number] [place] [address] [place] MCH (RBC) [Entitic mass] 30.0 pg Normal 26.0-34.0 [facility] Comment on above: Order Comment: Speci men Type: BLOOD SPECIMENOrdering Facility: [facility] Address: [address] [place] [address] Performed By: #### 5 7021-8 ####[facility]CLIA [id number] [place] [address] [place] MCHC (RBC) [Mass/Vol] 34.3 g/dL Normal 30.5-36.0 [facility] Comment on above: Order Comment: Speci men Type: BLOOD SPECIMENOrdering Facility: [facility] Address: [address] [place] [address] Performed By: #### 5 7021-8 ####[facility]CLIA [id number] [place] [address] [place] MCV (RBC) [Entitic vol] 87.6 fL Normal 80.0-100.0 [facility] Comment on above: Order Comment: Speci men Type: BLOOD SPECIMENOrdering Facility: [facility] Address: [address] [place] [address] Performed By: #### 5 7021-8 ####[facility]CLIA [id number] [place] [address] [place] Monocytes (Bld) [#/Vol] 0.88 10*3/uL High <0.87 [facility] Comment on above: Order Comment: Speci men Type: BLOOD SPECIMENOrdering Facility: [facility] Address: [address] [place] [address] Performed By: #### 5 7021-8 ####[facility]CLIA [id number] [place] [address] [place] Monocytes/100 WBC (Bld) 12.5 % Normal [facility] Comment on above: Order Comment: Speci men Type: BLOOD SPECIMENOrdering Facility: [facility] Address: [address] [place] [address] Performed By: #### 5 7021-8 ####[facility] LABCLIA [id number] [address] [place] [id number] [place] Neutrophils (Bld) [#/Vol] 3.57 10*3/uL Normal 1.45-7.50 [facility] Comment on above: Order Comment: Speci men Type: BLOOD SPECIMENOrdering Facility: [facility] Address: [address] [place] [address] Performed By: #### 5 7021-8 ####[facility]CLIA [id number] [place] [address] [place] Neutrophils/100 WBC (Bld) 50.9 % Normal [facility] Comment on above: Order Comment: Speci men Type: BLOOD SPECIMENOrdering Facility: [facility] Address: [address] [place] [address] Performed By: #### 5 7021-8 ####[facility]CLIA [id number] [place] [address] [place] Nucleated RBC (Bld) [#/Vol] 10*3/uL Normal <0.01 [facility] Comment on above: Order Comment: Speci men Type: BLOOD SPECIMENOrdering Facility: [facility] Address: [address] [place] [address] Performed By: #### 5 7021-8 ####[facility]CL[facility] [id number] [place] [address] [place] Nucleated RBC/100 WBC (Bld) [Ratio] 0.0 /100 WBC Normal [facility] Comment on above: Order Comment: Speci men Type: BLOOD SPECIMENOrdering Facility: [facility] Address: [address] [place] [address] Performed By: #### 5 7021-8 ####[facility]CLIA [id number] [place] [address] [place] Platelet mean volume (Bld) [Entitic vol] 9.9 fL Normal 9.0-12.7 [facility] Comment on above: Order Comment: Speci men Type: BLOOD SPECIMENOrdering Facility: [facility] Address: [address] [place] [address] Performed By: #### 5 7021-8 ####[facility] LABCLIA [id number] [address] [place] [id number] [place] Platelets (Bld) [#/Vol] 295 10*3/uL Normal 150-400 [facility] Comment on above: Order Comment: Speci men Type: BLOOD SPECIMENOrdering Facility: [facility] Address: [address] [place] [address] Performed By: #### 5 7021-8 ####[facility]CL[facility] [id number] [address] [address] [place] RBC (Bld) [#/Vol] 4.93 10*6/uL Normal 3.90-5.20 [facility] Comment on above: Order Comment: Speci men Type: BLOOD SPECIMENOrdering Facility: [facility] Address: [address] [place] [address] Performed By: #### 5 7021-8 ####[facility]CL[facility] [id number] [address] [address] [place] WBC (Bld) [#/Vol] 7.02 10*3/uL Normal 3.70-11.00 [facility] Comment on above: Order Comment: Speci men Type: BLOOD SPECIMENOrdering Facility: [facility] Address: [address] [place], [place] [address] Performed By: #### 5 7021-8 ####[facility]CL[facility] [id number] [address] [address] [place] ED PROV NOTEon 03-06-2025 ED PROV NOTE Normal [facility] ED Triage Noteon 03-06-2025 ED Triage Note Normal [facility] Magnesium SerPl-mCncon 03-06 Magnesium [Mass/Vol] 2.0 mg/dL Normal 1.7-2.3 [facility] Comment on above: Order Comment: Speci men Type: BLOOD SPECIMENOrdering Facility: [facility] Address: [address] [place], [place] [address] Performed By: #### 2 4321-2, 99899-4 ####[facility] LABCL[facility] [id number] [place] [id number] [facility] X-ray reportOrdered By: Ad Galindo on 03-03-2025 Study report [facility] Main [address] [address] XRay Report Signed Patient: Meredith Chaidez MR#: [id number] : 1970 Acct:[id number] Age/Sex: 54 / F ADM Date: 5 Loc: XD Room: Type: REG CLI Attending Dr: Milagros Sharpe [employer] Copies to: Milagros Sharpe APRN~ Ordering Provider: Milagros Sharpe APRN Date of Service: 03/03/25 XR/XR lumbar spine 6V w bending: M54.16 - Radiculopathy, lumbar region 6 views Lumbar Spinewith bending HISTORY: Numbness and tingling down the legs. COMPARISON: 10/27/2024 POSTSURGICAL CHANGES: None BONY ALIGNMENT: Stable HYPERMOBILITY:No hypermobility LISTHESIS:None FRACTURE: None DEGENERATIVE CHANGES: Extensive lower lumbar facet degeneration. Mild spondylosis. SOFT TISSUES: Unremarkable BONY MINERALIZATION:Adequate XR/XR lumbar spine 6V w bending IMPRESSION: No hypermobility. Extensive lower lumbar facet degeneration Impression dictated by: Dallas Galindo M.D. 03/03/2025 9:27 PM Dictation Location: [place] [address] Transcribed By: [facility] 03/03/252126 Dictated By: Dallas Galindo DO 03/03/252125 Signed By: 03/03/252126 [facility] XR lumbar spine 6V w bending on 03-03-2025 XR lumbar spine 6V w bending [facility] Main [address] [address] XRay Report Signed Patient: Meredith Chaidez MR#: [id number] 12 : 1970 Acct:[id number] Age/Sex: 54 / F ADM Date: 03/03/25 Loc: XD Room: Type: REG CLI Attending Dr: Milagros Sharpe [employer] Copies to: Milagros Sharpe APRN Ordering Provider: Milagros Sharpe APRN Date of Service: 03/03/25 XR/XR lumbar spine 6V w bending: M54.16 - Radiculopathy, lumbar region 6 views Lumbar Spinewith bending HISTORY: Numbness and tingling down the legs. COMPARISON: 10/27/2024 POSTSURGICAL CHANGES: None BONY ALIGNMENT: Stable HYPERMOBILITY:No hypermobility LISTHESIS:None FRACTURE: None DEGENERATIVE CHANGES: Extensive lower lumbar facet degeneration. Mild spondylosis. SOFT TISSUES: Unremarkable BONY MINERALIZATION:Adequate XR/XR lumbar spine 6V w bending IMPRESSION: No hypermobility. Extensive lower lumbar facet degeneration Impression dictated by: Dallas Galindo M.D. 03/03/2025 9:27 PM Dictation Location: [facility]20 Transcribed By: [facility] 03/03/252126 Dictated By: Dallas Galindo DO 03/03/252125 Signed By: 03/03/252126 Normal [facility] CNPNon 03-02-2025 CNPN Normal [facility] CNTHERAPYon 02-28-2025 CNTHERAPY OT/PT/Speech Visit (SPMBMM) ----- MEREDITH CHAIDEZ ([id number]) 1970 F Date Time Provider Department 02/28/25 12:00 PM [facility] Provider Department Center 02/28/2025 12:00 PM [id number], [facility] Reason for Visit: Speech Instrumental Swallow Eval [3660] Speech Discharge [3488] Primary Visit Diagnosis:Oropharyngeal dysphagia [R13.12] Allergies As of Date: 02/28/2025 Noted Allergy Reaction ADHESIVE TAPE-SILICONES 06/30/2024 2 - Rash ADVAIR DISKUS (FLUTICASONE PROPIO*06/30/2024 12 - Shortness of Breath ARTHROTEC 50 (DICLOFENAC-MISOPROS*07/11 ASPARTAME 11/09/2007 9 - Itching CEFDINIR 09/01/2024 14 - Other: See Comments CODEINE 07/24/2007 DEPO-PROVERA (MEDROXYPROG BANDAR (AN*07/24/2007 ERYC (ERYTHROMYCIN) 07/24/2007 ESZOPICLONE 09/01/2024 14 - Other: See Comments FLONASE HEADACHE-ALLERGY RLF (CPM*06/30/2024 7 - Swelling Comments: sneezing IMITREX (SUMATRIPTAN SUCCINATE) 07/24/2007 IPRATROPIUM 08/12/2024 4 - Hives LATANOPROST 09/01/2024 14 - Other: See Comments LATEX 07/24/2007 NSAIDS (NON-STEROIDAL ANTI-INFLAM*06/30/2024 4 - Hives NUBAIN (NALBUPHINE HCL) 07/24/2007 PREDNISONE 07/24/2007 16 - Unknown Comments: Tolerated dexamethasone during hospitalization 08/2024 PREGABALIN 09/01/2024 14 - Other: See Comments QUETIAPINE 09/01/2024 14 - Other: See Comments RELAFEN (NABUMETONE) 07/24/2007 STEROIDS (BETAMETHASONE DIPROPION*06/30/2024 14 - Other: See Comments Comments: Difficulty breathing Tolerated inhaled budesonide during hospitalization 09/05/2024 STEVIA (STEVIOSIDE (BULK)) 06/30/2024 5 - Intolerance TORADOL (KETOROLAC TROMETHAMINE) 07/24/2007 TRAZODONE 07/24/2007 [id number]-[id number] ANTIMIGRAINE YMOXIH4206/30/2024 14 - Other: See Comments Comments: Shooting pain from chest down arm VICODIN (HYDROCODONE-ACETAMINOPHE *07/24/2007 VIOXX (ROFECOXIB) 07/24/2007 ZANAFLEX (TIZANIDINE HCL) 07/24/2007 Date Reviewed: 02/23/2025 Reviewed by: Cherise Al MA - Fully Assessed Prescriptions as of 03/01/2025 - montelukast (SINGULAIR) 10 mg tablet Take 1 tablet by mouth daily at bedtime. - tiotropium-olodaterol (STIOLTO RESPIMAT) 2.5-2.5 mcg/actuation inhaler Inhale 2 puffs as instructed once daily. - budesonide (PULMICORT) 0.25 mg/2 mL nebulizer solution Use 2 mL via nebulizer two times a day. - cetirizine (ZYRTEC) 10 mg tablet Take 1 tablet by mouth two times a day. - CPAP/BIPAP/OTHER Type .CPAPSettings into a note to see current settings/supplies/DME information. - ALPRAZolam (XANAX) 1 mg tablet Take 1 mg by mouth at bedtime as needed. - famotidine (PEPCID) 40 mg tablet Take 1 tablet by mouth once daily. - ipratropium-albuterol (DUONEB) 0.5 mg-3 mg(2.5 mg base)/3 mL nebu Inhale 3 mL as instructed every 6 hours as needed for wheezing/shortness of breath. - gabapentin (NEURONTIN) 400 mg capsule Take 400 mg by mouth at 9 am and 400 mg at 2 pm - gabapentin (NEURONTIN) 300 mg capsule Take 3 capsules by mouth daily at bedtime for 30 days. - rhubarb root extract (ESTROVEN CMPLT MENOPAUSE RLF) 4 mg tab Take by mouth. - cholecalciferol (VITAMIN D-3) 5,000 unit tab Take 5,000 Units by mouth once daily. - levothyroxine (SYNTHROID) 50 mcg tablet Take 50 mcg by mouth daily before breakfast. - febuxostat (ULORIC) 40 mg tab Take by mouth once daily. - metoprolol succinate ER (TOPROL XL) 25 mg 24 hr tablet Take 50 mg by mouth once daily. - amLODIPine (NORVASC) 2.5 mg tablet Take by mouth once daily. - ALBUTEROL 90 MCG/ACTUATION AEROSOL INHALER Inhale one(1) - two(2) puffs four(4) times a day as needed for wheezing and shortness of breath. - pantoprazole sodium(PROTONIX 40 MG TAB) Take 40 mg by mouth two times a day. - promethazine hcl(PHENERGAN 25 MG TAB) as necessary [facility] No Panel InformationOrdered By: [facility] Provider on 02-28-2025 [facility] RF videography Hypopharynx a nd Esophagus Views W liquid and paste contrast PO during swallowingon 02-28-2025 IMPRESSION: Please refer to speech pathologist's reported assessment. Boxcar Weigher: PSCB Transcribe Date/Time: Feb 28 2025 4:17P Dictated by : DEEPA WALL MD This examination was interpreted and the report reviewed and electronically signed by: DEEPA WALL MD on Feb 28 2025 4:53PM [facility] * * *Final Report* * * DATE [...] 12. Oral Contrast: VARIBAR THIN ORAL 70ml, 496434 mL VARIBAR PUDDING ORAL 20ml, 685435 mL EZ DISK ORAL one tablet, 938503I mL CLINICAL INFORMATION: Refer to speech pathologist evaluation report. Dysphagia. Difficulty swallowing. RESULT: Fluoroscopy was provided during performance of a swallowing evaluation by the speech pathologist. - [facility] Provider, [facility] - 02/28/2025 * * *Final Report* * [...] 12. Oral Contrast: VARIBAR THIN ORAL 70ml, 194685 mL VARIBAR PUDDING ORAL 20ml, 061571 mL EZ DISK ORAL one tablet, 548173F mL CLINICAL INFORMATION: Refer to speech pathologist evaluation report. Dysphagia. Difficulty swallowing. RESULT: Fluoroscopy was provided during performance of a swallowing evaluation by the speech pathologist. - IMPRESSION IMPRESSION: Please refer to speech pathologist's reported assessment. Boxcar Weigher: SHANTEL Transcribe Date/Time: Feb 28 2025 4:17P Dictated by : DEEPA WALL MD This examination was interpreted and the report reviewed and electronically signed by: DEEPA WALL MD on Feb 28 2025 4:53PM EST [facility] Radiology Study observation (narrative) Liss adams [facility] XR ESOPHAGRAMon 02-28-2025 XR ESOPHAGRAM * * *Final Report* * * DATE [...] easily without reproducing symptoms. Other Findings: None. IMPRESSION: SMALL HIATAL HERNIA, TYPE I. Boxcar Weigher: SHANTEL Transcribe Date/Time: Feb 28 2025 1:49P Dictated by : JANET PAN DO This examination was interpreted and the report reviewed and electronically signed by: DEEPA WALL MD on Feb 28 2025 4:53PM EST [id number] [facility] XR Esophagus Views W contras t Yvette 02-28-2025 IMPRESSION: SMALL HIATAL HERNIA, TYPE I. Boxcar Weigher: SHANTEL Transcribe Date/Time: Feb 28 2025 1:49P Dictated by : JANET PAN DO This examination was interpreted and the report reviewed and electronically signed by: DEEPA WALL MD on Feb 28 2025 4:53PM EST [facility] * * *Final Report* * * DATE [...] easily without reproducing symptoms. Other Findings: None. [facility] Provider, [facility] - 02/28/2025 * * *Final Report* * [...] IMPRESSION IMPRESSION: SMALL HIATAL HERNIA, TYPE I. Boxcar Weigher: SHANTEL Transcribe Date/Time: Feb 28 2025 1:49P Dictated by : JANET PAN DO This examination was interpreted and the report reviewed and electronically signed by: DEEPA WALL MD on Feb 28 2025 4:53PM EST [facility] Radiology Study observation (narrative) Liss adams [facility] XR MOD BARIUM SWALLOW W ADDY Driscoll 02-28-2025 XR MOD BARIUM SWALLOW W SPEECH * * *Final Report* * * DATE [...] 12. Oral Contrast: VARIBAR THIN ORAL 70ml, 554414 mL VARIBAR PUDDING ORAL 20ml, 040234 mL EZ DISK ORAL one tablet, 246510Q mL CLINICAL INFORMATION: Refer to speech pathologist evaluation report. Dysphagia. Difficulty swallowing. RESULT: Fluoroscopy was provided during performance of a swallowing evaluation by the speech pathologist. - IMPRESSION: Please refer to speech pathologist's reported assessment. Boxcar Weigher: PSCB Transcribe Date/Time: Feb 28 2025 4:17P Dictated by : DEEPA WALL MD This examination was interpreted and the report reviewed and electronically signed by: DEEPA WALL MD on Feb 28 2025 4:53PM EST [id number] [facility] CNOVon 02-23-2025 CNOV Normal [facility] Thyroid Stim Hormone w/Rflxo n 02-08-2025 Thyroid Stim Hormone w/Rflx 0.54 u[iU]/mL Normal 0.45-5.33 [facility] Comment on above: Order Comment: Reaso n for Exam Acquired hypothyroidism Result Comment: PERF ORMED BY: [place] [address] PATHOLOGIST PANTOGRAPH II ENGRAVER GABRIELLE TAYLOR M.D. Performed By: #### H S TROP, BNP, CMP, CK #### [address] Thyrotropin [Units/volume] i n Serum or PlasmaOrdered By: Eduin Perez on 02-08-2025 TSH Qn 0.54 m[IU]/L 0.45-5.33 [facility] CNPNon 01-18-2025 CNPN Normal [facility] ALLERGEN SKIN TEST-FOODon ALLERGENS: LEGUME 1. Soybean 1:40 P: W = 0 mm F = 0 mm ALLERGENS:GRAIN 1. Wheat, whole 1:20 P: W = 0 mm F = 0 mm [facility] ALLERGEN SKIN TEST-INHALANT 40on 12-17-2024 ALLERGENS Time applied: 1516 Time read: 1531 1. Negative Control: 50%Glycerin/50%Cocas P: W = 0 mm F = 0 mm 2. Cat Hair 10,000 BAU/ml P: W = 0 mm F = 0 mm 3. UF Dog 1:650 P: W = 0 mm F = 0 mm 4. Cockroach Mix 1:20 P: W = 0 mm F = 0 mm 5. Mite Df 10,000 AU/ml P: W = 0 mm F = 0 mm 6. Mite Dp 10,000AU/ml P: W = 0 mm F = 0 mm 7. Alternaria Alternata 1:20 P: W = 0 mm F = 0 mm 8. Aspergillus Fumigatus 1:20 P: W = 0 mm F = 0 mm 9. Cladosporium sphearospermum 1:20 P: W = 0 mm F = 0 mm 10. Epicoccum Nigrum 1:10 P: W = 0 mm F = 0 mm 11. Fusarium Solani 1:40 P: W = 0 mm F = 0 mm 12. Bipolaris Sorokiniana 1:20 P: W = 0 mm F = 0 mm 13. Penicillium Mix 1:20 P: W = 0 mm F = 0 mm 14. Yariel, White 1:20 P: W = 0 mm F = 0 mm 15. Beech, Bangladeshi 1:20 P: W = 0 mm F = 0 mm 16. Birch Mix 1:20 P: W = 0 mm F = 0 mm 17. Maple Mix 1:20 P: W = 0 mm F = 0 mm 18. Schleicher ,Eastern 1:20 P: W = 0 mm F = 0 mm 19. Bibb, Shagbark 1:20 P: W = 0 mm F = 0 mm 20. [place] Tree, Red 1:20 P: W = 0 mm F = 0 mm 21. [place], Red 1:20 P: W = 0 mm F = 0 mm 22. [place], Bangladeshi/Eastern 1:20 P: W = 0 mm F = 0 mm 23. Gilliam Pollen, Black 1:20 P: W = 0 mm F = 0 mm 24. [place], Black 1:20 P: W = 0 mm F = 0 mm 25. B[place] Grass 10,000 BAU/ml P : W = 0 mm F = 0 mm 26. [place], /January 100,000 BAU/ml P: W = 0 mm F = 0 mm 27. Fescue, [place] 100,000 BAU/ml P: W = 0 mm F = 0 mm 28. Ortiz Grass 1:20 P: W = 0 mm F = 0 mm 29. Orchard Grass 100,000 BAU/ml P: W = 0 mm F = 0 mm 30. Perennial [place], 100,000 BAU/ml P: W = 0 mm F = 0 mm 31. Luca 100,000 BAU/ml P: W = 0 mm F = 0 mm 32. Cocklebur 1:20 P: W = 0 mm F = 0 mm 33. [place], sheep 1:20 P: W = 0 mm F = 0 mm 34. Plantain, Hungarian 1:20 P: W = 0 mm F = 0 mm 35. Lambs Quarters 1:20 P: W = 0 mm F = 0 mm 36. Bee Elder, Burweed 1:20 P: W = 0 mm F = 0 mm 37. Mugwort, Common 1:20 P: W = 0 mm F = 0 mm 38. Pigweed, Rough 1:20 P: W = 0 mm F = 0 mm 39. Ragweed, Mix 1:20 P: W = 0 mm F = 0 mm 40. HISTAMINE, positive control(Histamine base 6mg/ml) P: W = 5 mm F = 20 mm [facility] CNOVon 12-17-2024 CNOV Normal [facility] No Panel Informationon 12-[address] [facility] [address] soft tissue neck wo/w con on 12-10-2024 CT soft tissue neck wo/w con [facility] [place] [address] [place] [address] CT Scan Report Signed Patient: Meredith Chaidez MR#: [id number] 12 : 1970 Acct:[id number] Age/Sex: 54 / F ADM Date: 12/10/24 Loc: CT Room: Type: [facility] Attending Dr: Eduin Perez DO Copies to: Eduin Perez DO Ordering Provider: Eduin Perez DO Date of Service: 12/10/24 CT/CT soft tissue neck wo/w con: Fatigue, unspecified type;Mass in neck CT soft tissue neck wo/w con 12/10/2024 7:08 AM SIGNS AND SYMPTOMS: Left-sided neck swelling for 3 months. TECHNIQUE: Multidetector CT axial slices of the soft tissues of the neck were obtained with and without IV contrast. Sagittal and coronal reformats were reconstructed. CT was performed with one or more of the following dose reduction techniques: Automated exposure control, adjustment of the mA and/or kV according to patient size, or use of iterative reconstruction technique. COMPARISON: None FINDINGS: Mucosal surfaces of the nasopharynx, oropharynx, hypopharynx, glottic, and subglottic airways are grossly unremarkable. The parotid glands, submandibular, and the thyroid gland are within normal limits. No soft tissue swelling. No lymphadenopathy is seen. Prominent left-sided lymph nodes lymph node measuring 1 cm in short axis. The carotid and jugular circulations are within normal limits. The visualized lung parenchyma shows no acute pathology. No acute bony abnormalities are appreciated. Cervical spondylosis with anterior fusion hardware C4- 5. CT/CT soft tissue neck wo/w con IMPRESSION: No acute findings. No gross central airway mass. No soft tissue swelling. Prominent left-sided level 2 lymph node. Finding is nonspecific. Attention on follow-up is suggested. Impression dictated by: Elliott Mehta Jr., D.OManuela 12/10/2024 10:09 AM Dictation Location: [place] [address] Transcribed By: [facility] 12/10/24 1009 Dictated By: Elliott Mehta Jr, DO 12/10/24 100 Signed By: 12/10/24 1009 Normal [facility] [id number] 12-09-2024 [id number] Normal [facility] ANES POSTPROC EVALon 025 ANES POSTPROC EVAL Normal [facility] C3 SerPl-mCncon 12-09-2024 Complement C3 [Mass/Vol] 177 mg/dL High 86-166 [facility] Comment on above: Order Comment: Speci men Type: BLOOD SPECIMENOrdering Facility: [facility] Address: [address] [place] [address] Performed By: #### 4 498-2, 36616-7, 4485-9 ####[facility] [id number] [place] [address] [place] C4 SerPl-mCncon 12-09-2024 Complement C4 [Mass/Vol] 23 mg/dL Normal 13-46 [facility] Comment on above: Order Comment: Speci men Type: BLOOD SPECIMENOrdering Facility: [facility] Address: [address] [place] [address] Performed By: #### 4 498-2, 58070-0, 4485-9 ####[facility] [id number] [place] [address] [place] CBC W Auto Differential pane l (Bld)on 12-09-2024 Basophils (Bld) [#/Vol] 0.06 10*3/uL Normal <0.11 [facility] Comment on above: Order Comment: Speci men Type: BLOOD SPECIMENOrdering Facility: [facility] Address: [address] [place] [address] Performed By: #### 5 7021-8 ####[facility] [id number] [place] [address] [place] Basophils/100 WBC (Bld) 0.9 % Normal [facility] Comment on above: Order Comment: Speci men Type: BLOOD SPECIMENOrdering Facility: [facility] Address: [address] [place] [address] Performed By: #### 5 7021-8 ####[facility] LABCLIA [id number] [address], [place] [address] [place] Differential cell count method Nom (Bld) Auto Normal [facility] Comment on above: Order Comment: Speci men Type: BLOOD SPECIMENOrdering Facility: [facility] Address: [address] [place] [address] Performed By: #### 5 7021-8 ####[facility]CL[facility] [id number] [address], [place] [address] [place] Eosinophils (Bld) [#/Vol] 0.29 10*3/uL Normal <0.46 [facility] Comment on above: Order Comment: Speci men Type: BLOOD SPECIMENOrdering Facility: [facility] Address: [address] [place] [address] Performed By: #### 5 7021-8 ####[facility]CL[facility] [id number] [place] [address] [place] Eosinophils/100 WBC (Bld) 4.3 % Normal [facility] Comment on above: Order Comment: Speci men Type: BLOOD SPECIMENOrdering Facility: [facility] Address: [address] [place] [address] Performed By: #### 5 7021-8 ####[facility]CLIA [id number] [place] [address] [place] Erythrocyte distribution width (RBC) [Ratio] 13.1 % Normal 11.5-15.0 [facility] Comment on above: Order Comment: Speci men Type: BLOOD SPECIMENOrdering Facility: [facility] Address: [address] [place] [address] Performed By: #### 5 7021-8 ####[facility]CLIA [id number] [place] [id number] [place] Hematocrit (Bld) [Volume fraction] 44.1 % Normal 36.0-46.0 [facility] Comment on above: Order Comment: Speci men Type: BLOOD SPECIMENOrdering Facility: [facility] Address: [address] [place] [address] Performed By: #### 5 7021-8 ####[facility]CLIA [id number] [address] [address] [place] Hemoglobin (Bld) [Mass/Vol] 14.2 g/dL Normal 11.5-15.5 [facility] Comment on above: Order Comment: Speci men Type: BLOOD SPECIMENOrdering Facility: [facility] Address: [address] [place] [address] Performed By: #### 5 7021-8 ####[facility]CLIA [id number] [place] [address] [place] Immature granulocytes (Bld) [#/Vol] 0.03 10*3/uL Normal <0.10 [facility] Comment on above: Order Comment: Speci men Type: BLOOD SPECIMENOrdering Facility: [facility] Address: [address] [place] [address] Performed By: #### 5 7021-8 ####[facility] LABIA [id number] [place] [address] [place] Immature granulocytes/100 WBC (Bld) 0.4 % Normal [facility] Comment on above: Order Comment: Speci men Type: BLOOD SPECIMENOrdering Facility: [facility] Address: [address] [place] [address] Performed By: #### 5 7021-8 ####[facility]CL[facility] [id number] [place] [id number] [place] Lymphocytes (Bld) [#/Vol] 2.00 10*3/uL Normal 1.00-4.00 [facility] Comment on above: Order Comment: Speci men Type: BLOOD SPECIMENOrdering Facility: [facility] Address: [address] [place] [address] Performed By: #### 5 7021-8 ####[facility]CLIA [id number] [place] [address] [place] Lymphocytes/100 WBC (Bld) 29.6 % Normal [facility] Comment on above: Order Comment: Speci men Type: BLOOD SPECIMENOrdering Facility: [facility] Address: [address] [place] [address] Performed By: #### 5 7021-8 ####[facility] LABIA [id number] [place] [address] [place] MCH (RBC) [Entitic mass] 29.6 pg Normal 26.0-34.0 [facility] Comment on above: Order Comment: Speci men Type: BLOOD SPECIMENOrdering Facility: [facility] Address: [address] [place] [address] Performed By: #### 5 7021-8 ####[facility] LABIA [id number] [place] [address] [place] MCHC (RBC) [Mass/Vol] 32.2 g/dL Normal 30.5-36.0 [facility] Comment on above: Order Comment: Speci men Type: BLOOD SPECIMENOrdering Facility: [facility] Address: [address] [place] [address] Performed By: #### 5 7021-8 ####[facility] LABIA [id number] [place] [address] [place] MCV (RBC) [Entitic vol] 92.1 fL Normal 80.0-100.0 [facility] Comment on above: Order Comment: Speci men Type: BLOOD SPECIMENOrdering Facility: [facility] Address: [address] [place] [address] Performed By: #### 5 7021-8 ####[facility] LABIA [id number] [place] [address] [place] Monocytes (Bld) [#/Vol] 0.84 10*3/uL Normal <0.87 [facility] Comment on above: Order Comment: Speci men Type: BLOOD SPECIMENOrdering Facility: [facility] Address: [address] [place] [address] Performed By: #### 5 7021-8 ####[facility]CLIA [id number] [place] [address] [place] Monocytes/100 WBC (Bld) 12.4 % Normal [facility] Comment on above: Order Comment: Speci men Type: BLOOD SPECIMENOrdering Facility: [facility] Address: [address] [place] [address] Performed By: #### 5 7021-8 ####[facility]CLIA [id number] [place] [address] [place] Neutrophils (Bld) [#/Vol] 3.54 10*3/uL Normal 1.45-7.50 [facility] Comment on above: Order Comment: Speci men Type: BLOOD SPECIMENOrdering Facility: [facility] Address: [address] [place] [address] Performed By: #### 5 7021-8 ####[facility]CL[facility] [id number] [place] [address] [place] Neutrophils/100 WBC (Bld) 52.4 % Normal [facility] Comment on above: Order Comment: Speci men Type: BLOOD SPECIMENOrdering Facility: [facility] Address: [address] [place] [address] Performed By: #### 5 7021-8 ####[facility]CLIA [id number] [place] [address] [place] Nucleated RBC (Bld) [#/Vol] 10*3/uL Normal <0.01 [facility] Comment on above: Order Comment: Speci men Type: BLOOD SPECIMENOrdering Facility: [facility] Address: [address] [place], [place] [address] Performed By: #### 5 7021-8 ####[facility]CLIA [id number] [address] [place] [address] [place] Nucleated RBC/100 WBC (Bld) [Ratio] 0.0 /100 WBC Normal [facility] Comment on above: Order Comment: Speci men Type: BLOOD SPECIMENOrdering Facility: [facility] Address: [address] [place] [address] Performed By: #### 5 7021-8 ####[facility]CLIA [id number] [address] [place] [address] [place] Platelet mean volume (Bld) [Entitic vol] 10.2 fL Normal 9.0-12.7 [facility] Comment on above: Order Comment: Speci men Type: BLOOD SPECIMENOrdering Facility: [facility] Address: [address] [place] [address] Performed By: #### 5 7021-8 ####[facility]CLIA [id number] [address] [place] [address] [place] Platelets (Bld) [#/Vol] 303 10*3/uL Normal 150-400 [facility] Comment on above: Order Comment: Speci men Type: BLOOD SPECIMENOrdering Facility: [facility] Address: [address] [place] [address] Performed By: #### 5 7021-8 ####[facility]CLIA [id number] [facility] [address] [place] [address] [place] RBC (Bld) [#/Vol] 4.79 10*6/uL Normal 3.90-5.20 [facility] Comment on above: Order Comment: Speci men Type: BLOOD SPECIMENOrdering Facility: [facility] Address: [address] [place] [address] Performed By: #### 5 7021-8 ####[facility] LABCLIA [id number] [facility]ALTH[facility]ARE SYSTEMBecyk [place] [id number] [place] WBC (Bld) [#/Vol] 6.76 10*3/uL Normal 3.70-11.00 [facility] Comment on above: Order Comment: Speci men Type: BLOOD SPECIMENOrdering Facility: [facility] Address: [address] [place] [address] Performed By: #### 5 7021-8 ####[facility] LABCLIA [id number] [facility] CAMPUSEve PAREKHL[facility]GEL[facility] HOSPITALBecky [place] [id number] [place] Colonoscopy Study observatio non 12-09-2024 [facility] Gastrointestinal Endoscopy Patient Name: Meredith Chaidez Procedure Date: 12/09/2024 8:38 AM Date of : 1970 Admit Type: Outpatient Age: 54 Gender: Female Note Status: Finalized Attending MD: Soy Reyes Jr, DO, [id number] Procedure: Colonoscopy Indications: High risk colon cancer surveillance: Personal history of adenomatous colonic polyps Providers: Soy Reyes Jr, DO Patient Profile: This is a 54 year old female. Refer to note in patient chart for documentation of history and physical. Last Colonoscopy: 5 years ago. Referring Physician: Soy Reyes Jr, DO (Referring MD) Medicines: Propofol [...] the patient. Procedure Code(s): --- Professional --- 01259, Colonoscopy, flexible; with removal of tumor(s), polyp(s), or other le (more content not included)... [facility] Radiology Study observation (narrative) Liss adams [facility] Comprehensive metabolic 2000 panelon 12-09-2024 Albumin [Mass/Vol] 4.6 g/dL Normal 3.9-4.[address] [facility] Comment on above: Order Comment: Speci men Type: BLOOD SPECIMENOrdering Facility: [facility] Address: [address] [place] [address] Performed By: #### 4 498-2, 88349-3, 4485-04 ####[facility]CLIA [id number] [facility] [id number], [place] [address] [place] ALP [Catalytic activity/Vol] 91 U/L Normal 34-123 [facility] Comment on above: Order Comment: Speci men Type: BLOOD SPECIMENOrdering Facility: [facility] Address: [address] [place] [address] Performed By: #### 4 498-2, 20009-1, 4485-04 ####[facility]CLIA [id number] [facility] [address] [address] [place] ALT [Catalytic activity/Vol] 24 U/L Normal 7-38 [facility] Comment on above: Order Comment: Speci men Type: BLOOD SPECIMENOrdering Facility: [facility] Address: [address] [place] [address] Performed By: #### 4 498-2, , 4485-04 ####[facility]CLIA [id number] [facility] [address] [address] [place] Anion gap [Moles/Vol] 15 mmol/L Normal 8-15 [facility] Comment on above: Order Comment: Speci men Type: BLOOD SPECIMENOrdering Facility: [facility] Address: [address] [place] [address] Performed By: #### 4 498-2, , 4485-04 ####[facility]CLIA [id number] [facility] [address] [address] [place] AST [Catalytic activity/Vol] 27 U/L Normal 13-35 [facility] Comment on above: Order Comment: Speci men Type: BLOOD SPECIMENOrdering Facility: [facility] Address: [address] [place] [address] Performed By: #### 4 498-2, 10869-6, 9 ####[facility] LABCLIA [id number] [place] [id number] [place] Bilirubin [Mass/Vol] 0.3 mg/dL Normal 0.2-1.3 [facility] Comment on above: Order Comment: Speci men Type: BLOOD SPECIMENOrdering Facility: [facility] Address: [address] [place] [address] Performed By: #### 4 498-2, 00464-5, 9 ####[facility] LABCLIA [id number] [place] [address] [place] Calcium [Mass/Vol] 10.5 mg/dL High 8.5-10.2 [facility] Comment on above: Order Comment: Speci men Type: BLOOD SPECIMENOrdering Facility: [facility] Address: [address] [place] [address] Performed By: #### 4 498-2, 99341-2, 4485-04 ####[facility]CLIA [id number] [place] [address] [place] Chloride [Moles/Vol] 104 mmol/L Normal 98-107 [facility] Comment on above: Order Comment: Speci men Type: BLOOD SPECIMENOrdering Facility: [facility] Address: [address] [place] [address] Performed By: #### 4 498-2, 96160-8, 4485-04 ####[facility]CLIA [id number] [place] [address] [place] CO2 [Moles/Vol] 22 mmol/L Normal 22-30 [facility] Comment on above: Order Comment: Speci men Type: BLOOD SPECIMENOrdering Facility: [facility] Address: [address] [place] [address] Performed By: #### 4 498-2, 63266-2, 9 ####[facility]CLIA [id number] [place] [id number] [place] Creatinine [Mass/Vol] 0.87 mg/dL Normal 0.58-0.96 [facility] Comment on above: Order Comment: Jet otto Type: BLOOD SPECIMENOrdering Facility: [facility] Address: [address] [place] [id number] Performed By: #### 4 498-2, 79334-6, 4485-9 ####[facility] LABCLIA [id number] [place] [address] [place] Creatinine and Glomerular filtration rate.predicted panel (S/P/Bld) 79 mL/min/1.73m??? Normal >=60 [facility] Comment on above: Order Comment: Jet otto Type: BLOOD SPECIMENOrdering Facility: [facility] Address: [address] [place] [address] Result Comment: Anna mated Glomerular Filtration Rate (eGFR) is calculated using the 2020 CKD-EPI creatinine equation. This equation utilizes serum creatinine, sex, and age as parameters. The creatinine assay has traceable calibration to isotope dilution-mass spectrometry. Refer to KDIGO guidelines for clinical interpretation. In patients with unstable renal function, e.g. those with acute kidney injury, the eGFR may not accurately reflect actual GFR. Performed By: #### 4 498-2, 78355-8, 4485-9 ####[facility] LABCLIA [id number] [place] [id number] [place] Glucose [Mass/Vol] 96 mg/dL Normal 74-99 [facility] Comment on above: Order Comment: Jet otto Type: BLOOD SPECIMENOrdering Facility: [facility] Address: [address] [place] [address] Result Comment: The [place] Diabetes Association (ADA) provides guidance for cutoff values for fasting glucose and random glucose. The ADA defines fasting as no caloric intake for at least 8 hours. Fasting plasma glucose results between 100 to 125 mg/dL indicate increased risk for diabetes (prediabetes).Fasting plasma glucose results greater than or equal to 126 mg/dL meet the criteria for diagnosis of diabetes. In the absence of unequivocal hyperglycemia, results should be confirmed by repeat testing. In a patient with classic symptoms of hyperglycemia or hyperglycemic crisis, random plasma glucose results greater than or equal to 200 mg/dL meet the criteria for diagnosis of diabetes.Reference: Standards of Medical Care in Diabetes 2016, [place] [employer] Association. Diabetes Care. 2016.39(Suppl 1). Performed By: #### 4 498-2, 41268-2, 9 ####[facility]CLIA [id number] [address] [address] [place] Potassium [Moles/Vol] 4.0 mmol/L Normal 3.7-5.1 [facility] Comment on above: Order Comment: Speci men Type: BLOOD SPECIMENOrdering Facility: [facility] Address: [address] [place] [address] Performed By: #### 4 498-2, 63721-5, 9 ####[facility]CL[facility] [id number] [address] [address] [place] Protein [Mass/Vol] 8.7 g/dL High 6.3-8.0 [facility] Comment on above: Order Comment: Speci men Type: BLOOD SPECIMENOrdering Facility: [facility] Address: [address] [place] [address] Performed By: #### 4 498-2, , 9 ####[facility]CL[facility] [id number] [address] [address] [place] Sodium [Moles/Vol] 141 mmol/L Normal 136-144 [facility] Comment on above: Order Comment: Speci men Type: BLOOD SPECIMENOrdering Facility: [facility] Address: [address] [place] [address] Performed By: #### 4 498-2, , 9 ####[facility]CL[facility] [id number] [facility] [address] [address] [place] Urea nitrogen [Mass/Vol] 14 mg/dL Normal 7-21 [facility] Comment on above: Order Comment: Speci men Type: BLOOD SPECIMENOrdering Facility: [facility] Address: [address] [place] [address] [place] [address] Performed By: #### 4 498-2, 92143-0, 4485-9 ####[facility] LABCLIA [id number] [place] [address] [place] EGD Study observation Narrat deirdre 12-09-2024 [facility] Gastrointestinal Endoscopy Patient Name: Meredith Chaidez Procedure Date: 12/09/2024 7:56 AM Date of : 1970 Admit Type: Outpatient Age: 54 Gender: Female Note Status: Finalized Attending MD: Soy Reyes Jr, DO, [id number] Procedure: Upper GI endoscopy Indications: Epigastric abdominal pain, Dyspepsia, Esophageal reflux Providers: Soy Reyes Jr, DO Patient Profile: This is a 54 year old female. Refer to note in patient chart for documentation of history and physical. Referring Physician: Soy Reyes Jr, DO (Referring MD) Medicines: Propofol [...] satisfactory condition to undergo the procedure. After obtaining informed consent, the endoscope was passed under direct vision. Throughout the procedure, the patient's blood pressure, pulse, and oxygen saturations were monitored continuously. The Endoscope was introduced through the mouth, and advanced to the second part of duodenum. The upper GI endoscopy was accomplished without difficulty. The patient tolerated the procedure well. Total Procedure Duration: 0 hours 3 minutes 35 seconds Findings: LA Grade A (one or more mucosal breaks less than 5 mm, not extending between tops of 2 mucosal folds) esophagitis with no bleeding was found 35 cm from the incisors. Biopsies were taken with a cold forceps for histology. A small hiatal hernia was present. A few diminutive hyperplastic-appearing polyps with no bleeding and no stigmata of recent bleeding were found in the gastric body. The polyp was removed with a jumbo cold forceps. Resection and retrieval were complete. Localized mild inflammation characterized by congestion (edema) and erythema was found in the gastric antrum. Biopsies were taken with a cold forceps for histology. The examined duodenum was normal. Moderate Sedation: MAC anesthesia was administered by the anesthesia team. Impression: - LA Grade A reflux esophagitis with no bleeding. Biopsied. - Small hiatal hernia. - A few gastric polyps. Resected and retrieved. - Gastritis, characterized by congestion (edema) and erythema. Biopsied. - Normal examined duodenum. Recommendation: - Discharge patient to home. - Resume regular diet. - Continue present medications. (pantoprazole) - Await pathology results. Procedure Code(s): --- Professional --- 74768, Esophagogastroduodenoscop y, flexible, transoral; with biopsy, single or multiple Diagnosis Code(s): --- Professional --- K21.00, Gastro-esophageal reflux disease with esophagitis, without bleeding K44.9, Diaphragmatic hernia without obstruction or gangrene K31.7, Polyp of stomach and duodenum K29.70, Gastritis, unspecified, without bleeding R10.13, Epigastric pain CPT copyright 2020 [employer]. All rights reserved. The codes documented in this report are preliminary and upon jammer hooker review may be revised to meet current compliance requirements. Attending Participation: I personally performed the entire procedure. MD Soy Brown Jr, DO 12/09/2024 8:38:35 AM This report has been signed electronicall (more content not included)... [facility] Radiology Study observation (narrative) [facility] HISTORY PHYSICALon HISTORY PHYSICAL Normal [facility] NURSING PROGon 12-09-2024 NURSING PROG Normal [facility] NURSING PROG Normal [facility] Pathology biopsy report Vasyl (Tiss)on 12-09-2024 ADDENDUM 1: Normal [facility] Comment on above: Order Comment: Speci men Type: TISSUE SPECIMENOrdering Facility: [facility] Address: [address] [place] [address] Result Comment: A. A n immunohistochemical stain for Helicobacter is negative.Laboratory Developed Test (LDT) Disclaimer:Performance characteristics of immunohistochemical, immunofluorescent and chromogenic in-situ hybridization tests have been determined by the performing laboratory within [facility] Pathology and Laboratory Medicine Department ([facility], [facility], [facility], [facility], [facility], [facility], or [facility]) in a manner consistent with CLIA requirements. One or more of these tests have not been cleared or approved by the FDA. RT-PLM is regulated under CLIA as qualified to perform high-complexity testing. These tests are used for clinical purposes. They should not be regarded as investigational or for research. Positive and negative controls stain appropriately.Addendum electronically signed by Nino Burns MD on 12/16/2024 at 2149 EDT Performed By: #### 6 6121-5 ####[facility] LABCLIA [id number] [address] [place] AP DISCLAIMER Normal [facility] Comment on above: Order Comment: Speci men Type: TISSUE SPECIMENOrdering Facility: [facility] Address: [address] [place] [address] Result Comment: Joe julien Developed Test (LDT) Disclaimer:Performance characteristics of immunohistochemical, immunofluorescent, and chromogenic in-situ hybridization tests have been determined by the performing laboratory within [facility] Pathology and Laboratory Medicine Department ([facility], [facility], [facility], [facility], [facility], [facility], or [facility]) in a manner consistent with CLIA requirements. One or more of these tests may not have been cleared or approved by the FDA. RT-PLM is regulated under CLIA as qualified to perform high-complexity testing. These tests are used for clinical purposes. These should not be regarded as investigational or for research. Positive and negative controls stain appropriately. Performed By: #### 6 6121-5 ####[facility] LABCLIA [id number] [place] [id number] [place] CASE REPORT Normal [facility] Comment on above: Order Comment: Jet otto Type: TISSUE SPECIMENOrdering Facility: [facility] Address: [address] [place] [address] Result Comment: Surg ica Pathology Report Case: [id number] Provider: Soy Reyes Jr., Collected: 12/09/2024 08:32 AMOrdering Location: [facility] Endoscopy Received: 12/09/2024 10:28 PM [facility]: Nino Burns MDSpecimens: A) - Stomach, Biopsy, gastritis B) - Stomach, Polyp, Biopsy C) - Esophagus, Biopsy, esophagitis D) - Colon, Ascending Polyp, polyp x2 E) - Colon, Rectosigmoid, Polyp, polyp x2 Performed By: #### 6 6121-5 ####[facility]CLIA [id number] [address] FINAL DIAGNOSIS Normal [facility] Comment on above: Order Comment: Jet otto Type: TISSUE SPECIMENOrdering Facility: [facility] Address: [address] [place] [address] Result Comment: A. S tomach, biopsy:- Reactive gastropathy with intestinal metaplasia.- Negative for dysplasia.B. Stomach, polyp, biopsy:- Fundic gland polyp.- Negative for dysplasia.C. Esophagus, biopsy:- Squamocolumnar junctional mucosa (cardia and corpus-type) with mild active and chronic inflammation.- No intestinal metaplasia identified.D. Colon, ascending, polyps x 2, biopsy:- Tubular adenomas.E. Colon, rectosigmoid, polyps x 2, biopsy:- Hyperplastic polyps. at 1459 EDT Performed By: #### 6 6121-5 ####[facility]CLIA [id number] [address] OF [facility] FINAL PERFORMING LAB Normal [facility] Comment on above: Order Comment: Jet otto Type: TISSUE SPECIMENOrdering Facility: [facility] Address: [address] [place] [address] Result Comment: Diag nostic interpretation performed at: [facility], [address] [place] [address], [place] [address] CLIA# [id number] Director: Price De La Veag MD Performed By: #### 6 6121-5 ####[facility] LABCLIA [id number] [place] [address] [place] GROSS DESCRIPTION Normal [facility] Comment on above: Order Comment: Speci men Type: TISSUE SPECIMENOrdering Facility: [facility] Address: [address] [place] [address] Result Comment: A. S tomach, BiopsyReceived in formalin are multiple pieces of trevino, soft tissue aggregating to 0.9 x 0.2 x 0.2 cm. Totally submitted in one cassette.B. Stomach, Polyp, BiopsyReceived in formalin is one piece of trevino, soft tissue measuring 0.4 x 0.2 x 0.2 cm. Totally submitted in one cassette.C. Esophagus, BiopsyReceived in formalin is one piece of trevino, soft tissue measuring 0.4 x 0.3 x 0.2 cm. Totally submitted in one cassette.D. Colon, Ascending PolypReceived in formalin are two segments of trevino polypoid tissue aggregating to 1.4 x 0.4 x 0.3 cm. No stalks are present. The lines of resection are noted. The specimens are not sectioned. Also received in the same container are two pieces of trevino, soft tissue aggregating to 0.7 x 0.2 x 0.1 cm. Totally submitted in one cassette.E. Colon, Rectosigmoid, PolypReceived in formalin are two pieces of trevino, soft tissue aggregating to 0.8 x 0.2 x 0.2 cm. Totally submitted in one cassette.Gross examination performed at [facility], [address] [place] [address] 12/10/2024 3:11 AM Performed By: #### 6 6121-5 ####[facility] LABIA [id number] [id number] [address] [place] Prot/Creat Uron 12-09-2024 Protein/Creatinine (U) [Mass ratio] 0.07 mg/mg Normal <0.15 [facility] Comment on above: Order Comment: Speci men Type: URINE SPECIMENOrdering Facility: [facility] Address: [address] [place] [address] Result Comment: Adul t Proteinuria Categories:<0.15 mg/mg is considered normal to mildly increased0.15 - 0.50 mg/mg is considered moderately increased>0.50 mg/mg is considered severely increasedKDIGO. (2013). KDIGO 2012 Clinical Practice Guideline for the Evaluation and Management of Chronic Kidney Disease. Official Journal of the International Society of Nephrology, 3(1), 1-150. Performed By: #### 2 890-2 ####[facility] LABIA [id number] [address] [place] Protein/Creatinine (U) [Mass ratio]on 12-09-2024 Creatinine (U) [Mass/Vol] 96.8 mg/dL Normal 20.0-300.0 [facility] Comment on above: Order Comment: Speci men Type: URINE SPECIMENOrdering Facility: [facility] Address: [address] [place] [address] Performed By: #### 2 890-2 ####[facility] [id number] [address] [place] Protein (U) [Mass/Vol] 7 mg/dL Normal 0-20 [facility] Comment on above: Order Comment: Speci men Type: URINE SPECIMENOrdering Facility: [facility] Address: [address] [place] [address] Performed By: #### 2 890-2 ####[facility] LABIA [id number] [place] [id number] [place] Upper GI endoscopyon 025 Upper GI endoscopy Normal [facility] Urinalysis complete panel (U )on 12-09-2024 Bacteria LM.HPF (Urine sed) [#/Area] Negative Normal Negative [facility] Comment on above: Order Comment: Speci men Type: URINE SPECIMENOrdering Facility: [facility] Address: [address] [place] [address] Performed By: #### 2 4356-8 ####[facility]CLIA [id number] [address] [place] [address] [place] Bilirubin Ql (U) Negative Normal Negative [facility] Comment on above: Order Comment: Speci men Type: URINE SPECIMENOrdering Facility: [facility] Address: [address] [place] [address] Performed By: #### 2 4356-8 ####[facility] LABCLIA [id number] [address], [facility]95 [place] Clarity (Unsp spec) Clear Normal Clear [facility] Comment on above: Order Comment: Speci men Type: URINE SPECIMENOrdering Facility: [facility] Address: [address] [place] [address] Performed By: #### 2 4356-8 ####[facility]CLIA [id number] [address], [facility] [place] Color (U) Yellow Normal Yellow [facility] Comment on above: Order Comment: Speci men Type: URINE SPECIMENOrdering Facility: [facility] Address: [address] [place] [address] Performed By: #### 2 4356-8 ####[facility]CLIA [id number] [address] [place] [address] [place] Epithelial cells LM.HPF (Urine sed) [#/Area] Few Normal [facility] Comment on above: Order Comment: Speci men Type: URINE SPECIMENOrdering Facility: [facility] Address: [address] [place] [address] Performed By: #### 2 4356-8 ####[facility]CLIA [id number] [address] [place] [address] [place] Glucose Test strip (U) [Mass/Vol] Negative Normal Negative [facility] Comment on above: Order Comment: Speci men Type: URINE SPECIMENOrdering Facility: [facility] Address: [address] [place] [address] Performed By: #### 2 4356-8 ####[facility] LABCLIA [id number] [facility] [address] [place] Hemoglobin Ql (U) Negative Normal Negative [facility] Comment on above: Order Comment: Speci men Type: URINE SPECIMENOrdering Facility: [facility] Address: [address] [place] [address] Performed By: #### 2 4356-8 ####[facility] LABCLIA [id number] [place] [address] [place] Hyaline casts (Urine sed) [#/Area] 1-3 /LPF Abnormal 0 /LPF [facility] Comment on above: Order Comment: Speci men Type: URINE SPECIMENOrdering Facility: [facility] Address: [address] [place] [address] Performed By: #### 2 4356-8 ####[facility] LABCLIA [id number] [facility] [address] [place] Ketones Ql (U) Negative Normal Negative [facility] Comment on above: Order Comment: Speci men Type: URINE SPECIMENOrdering Facility: [facility] Address: [address] [place] [address] Performed By: #### 2 4356-8 ####[facility] LABCLIA [id number] [place] [id number] [place] Leukocyte esterase Test strip Ql (U) Trace Abnormal Negative [facility] Comment on above: Order Comment: Speci men Type: URINE SPECIMENOrdering Facility: [facility] Address: [address] [place] [address] Performed By: #### 2 4356-8 ####[facility]CLIA [id number] [address] [place] [address] [place] Nitrite Ql (U) Negative Normal Negative [facility] Comment on above: Order Comment: Speci men Type: URINE SPECIMENOrdering Facility: [facility] Address: [address] [place] [address] Performed By: #### 2 4356-8 ####[facility] LABCLIA [id number] [address], [place] [address] [place] pH (U) 5.5 [pH] Normal <8.5 [facility] Comment on above: Order Comment: Speci men Type: URINE SPECIMENOrdering Facility: [facility] Address: [address] [place] [address] Performed By: #### 2 4356-8 ####[facility] LABIA [id number] [place] [address] [place] Protein (U) [Mass/Vol] Negative Normal Negative [facility] Comment on above: Order Comment: Speci men Type: URINE SPECIMENOrdering Facility: [facility] Address: [address] [place] [address] Performed By: #### 2 4356-8 ####[facility] LABIA [id number] [place] [address] [place] RBC LM.HPF (Urine sed) [#/Area] 3-5 /HPF Abnormal 0-2 /HPF [facility] Comment on above: Order Comment: Speci men Type: URINE SPECIMENOrdering Facility: [facility] Address: [address] [place] [address] Performed By: #### 2 4356-8 ####[facility] LABIA [id number] [address] [place] [address] [place] Specific gravity (U) [Rel density] 1.014 Normal 1.005-1.030 [facility] Comment on above: Order Comment: Speci men Type: URINE SPECIMENOrdering Facility: [facility] Address: [address] [place] [address] Performed By: #### 2 4356-8 ####[facility] [id number] [place] [address] [place] Urobilinogen Ql (U) 0.2 EU/dL Normal 0.2-1.0 EU/dL [facility] Comment on above: Order Comment: Speci men Type: URINE SPECIMENOrdering Facility: [facility] Address: [address] [place] [address] Performed By: #### 2 4356-8 ####[facility] [id number] [place] [address] [place] WBC LM.HPF (Urine sed) [#/Area] 0-5 /HPF Normal 0-5 /HPF [facility] Comment on above: Order Comment: Speci men Type: URINE SPECIMENOrdering Facility: [facility] Address: [address] [place] [address] Performed By: #### 2 4356-8 ####[facility] [id number] [place] [address] [place] ANES PRE-OPon 12-08-2024 ANES PRE-OP Normal [facility] CNPNon 12-08-2024 CNPN Normal [facility] CNOVon 11-22-2024 CNOV Normal [facility] Liver ultrasound attenuation by transient elastographyon 11-22-2024 Fibroscan Report Date performed: November 22, 2024 Indication : MASLD Patient fasted 3 hours:Yes Performed by Wandy Duke LPN Impression The liver stiffness is 7.3 kPa which corresponds to 91% chance of stage 0-2 fibrosis. The CAP analysis showed grade S3 of liver steatosis. Stage of liver fibrosis based on above kPa: A 91% chance of stage 0-2 fibrosis A 9% chance of stage 3-4 fibrosis (advanced fibrosis) A 1.3% chance of stage 4 fibrosis (cirrhosis). A kPa >20 indicates a high likelihood of stage 4 fibrosis/cirrhosis, consider further testing to confirm and refer to hepatology. Recommendations If kPa <8.0, reassess periodically Fib-4 score every 1-2 years if T2DM/Pre-T2DM OR with 2 or more metabolic risk factors Fib-4 score 2-3 years if no T2DM and <2 metabolic risk factors If kPa >8.0, refer to hepatology for further evaluation Result-Findings Technical difficulties: None. Result: The reading was adequate. Please refer to get images report for individual readings Number of readings: 10 IQR %: 13 E (kpa): 7.3 CAP: 333 Interpreted by: DSUTIN Baez Fibroscan Fibrosis Risk <7 kPA = F0-F2 97%, F3+F4 3%, F4 <1% <10 kPA = F0-F2 91%, F3+F4 9%, F4 1.3% 10-15 kPA = F0-F2 56%, F3+F4 43%, F4 14% >15 kPA = F0-F2 26%, F3+F4 74%, F4 46% Grade CAP value up to 237 dB/M corresponds to S0 (< 10 % Fat) CAP value between (238 - 258 dB/M) corresponds to S1 (>/= 11 % Fat) CAP value between (259 - 289 dB/M) corresponds to S2 (>/= 33 % Fat) CAP value > 290dB/M corresponds to S3 (>/= 67 % Fat) stage 0 ( S0:< 10 % steatosis) stage 1 (>/= S1: 11%-33% steatosis) stage 2 (>/= S2: 34%-66% steatosis) stage 3 (>/= S3: > 66% steatosis) References Hinojosa Y, Oneil Q, Hinojosa T, Yamileth J, Hinojosa H, Gordillo T. Controlled attenuation parameter for assessment of hepatic steatosis grades: a diagnostic meta-analysis. Int J Clin Exp Med. 2015 May 15;8(10):30652-57. PMID: 87547849; PMCID: SGP4621610. Hamida Vega, Doron ANGULO, Rhonda M, Trip F, Cindy J, Prieto O, Luis F, David M, Ramy G, Yue A, Funmilayo E, Gisel L, Janine Pabon, Hector A, Nathalie U, Fernanda S, Tracee P, Jd V, Ernst V, Billy M, Linda CHAU. Refining the Baveno elastography criteria for the definition of compensated advanced chronic liver disease. J Hepatol. 2020;74(5):7670-2513. doi: 10.1016/j.jhep.2020.11.05 0. Epub 2019Jul 19. PMID: 00202821. Ananya Vega, Jyotsna Ross, Ni Vega, Cydney Vega, Carlos S, Andria Adams, Akira Adams, Alton Vicente. AASLD practice guidance on the clinical assessment and management of nonalcoholic fatty liver disease. Hepatology. 2022;77(5):1195-2374. doi:10.1097/HEP.[id number] [id number] [facility] No Panel Informationon 11-22 [facility] Radiology Study observation (narrative) [facility] US ABD RIGHT UPPER QUADRANTo n 11-22-2024 US ABD RIGHT UPPER QUADRANT Normal [facility] US Abdomen RUQon 11-22-2024 IMPRESSION: Hepatic steatosis. Boxcar Weigher: SHANTEL Transcribe Date/Time: Nov 22 2024 4:07P Dictated by : REMIGIO MEDEIROS MD This examination was interpreted and the report reviewed and electronically signed by: REMIGIO MEDEIROS MD on Nov 22 2024 4:09PM [facility] DIVISION OF RADIOLOGY * * *Final Report* * * DATE OF EXAM: Nov 22 2024 2:20PM ROBB 1032 - US ABD RIGHT UPPER QUADRANT / PROCEDURE REASON: Fatty liver * * * * Physician Interpretation * * * * EXAMINATION: RIGHT UPPER QUADRANT ULTRASOUND CLINICAL HISTORY: Concern for hepatic steatosis. TECHNIQUE: Sonography of the right upper quadrant was performed. Images were obtained and stored in a permanent archive. MQ: URUQ_2 COMPARISON: None. RESULT: Pancreas: Normal sonographic appearance. Portions obscured: tail Liver: Echotexture: Normal, homogeneous. Echogenicity: Increased with associated attenuation of the ultrasound beam. Surface contour: Smooth Lesions: None. Biliary: No intrahepatic biliary duct dilation. CBD: 0.8 cm at the hilum. Gallbladder: Prior cholecystectomy Right Kidney: No hydronephrosis. Ascites: None. DIVISION OF RADIOLOGY Provider, Lupis Lola pabon [place] - 11/22/2024 * * *Final Report* * * DATE OF EXAM: Nov 22 2024 2:20PM ROBB 1032 - US ABD RIGHT UPPER QUADRANT / PROCEDURE REASON: Fatty liver * * * * Physician Interpretation * * * * EXAMINATION: RIGHT UPPER QUADRANT ULTRASOUND CLINICAL HISTORY: Concern for hepatic steatosis. TECHNIQUE: Sonography of the right upper quadrant was performed. Images were obtained and stored in a permanent archive. MQ: URUQ_2 COMPARISON: None. RESULT: Pancreas: Normal sonographic appearance. Portions obscured: tail Liver: Echotexture: Normal, homogeneous. Echogenicity: Increased with associated attenuation of the ultrasound beam. Surface contour: Smooth Lesions: None. Biliary: No intrahepatic biliary duct dilation. CBD: 0.8 cm at the hilum. Gallbladder: Prior cholecystectomy Right Kidney: No hydronephrosis. Ascites: None. IMPRESSION IMPRESSION: Hepatic steatosis. Boxcar Weigher: SHANTEL Transcribe Date/Time: Nov 22 2024 4:07P Dictated by : REMIGIO MEDEIROS MD This examination was interpreted and the report reviewed and electronically signed by: REMIGIO MEDEIROS MD on Nov 22 2024 4:09PM EST [facility] CNPNon 11-16-2024 CNPN Normal [facility] CNPNon 11-10-2024 CNPN Normal [facility] CNPNon 10-29-2024 CNPN Normal [facility] DAWOOD BY IFA WITH REFLEXon Nuclear Ab pattern (S) [Interp] Nuclear homogeneous Normal [facility] Comment on above: Order Comment: Speci men Type: BLOOD SPECIMENOrdering Facility: [facility] Address: [address] [place] [address] Performed By: #### 4 7322-3, 20714-0, 46192-2, ANAIFR, 20268-5, 67920-9, 92600-0, 22574-9, 96441-4, 25269-8 ####[facility] LABCLIA [id number] [place] [address] [place] Nuclear Ab Ql (S) Positive Abnormal Negative [facility] Comment on above: Order Comment: Speci men Type: BLOOD SPECIMENOrdering Facility: [facility] Address: [address] [place] [address] Result Comment: Anti -nuclear antibody test is used as an aid in diagnosis of systemic autoimmune diseases. Where positive and clinically warranted, follow-up using disease-specific testing is recommended. Low positive titers are not uncommon with advanced age, certain chronic infections, and malignancies among others.Test methodology: Indirect fluorescence immunoassay (IFA) using HEp-2 cells.1:160 Performed By: #### 4 7322-3, 87286-7, 67892-0, ANAIFR, 54271-1, 59064-6, 28686-8, 93414-2, 74172-0, 00579-2 ####[facility] LABCLIA [id number] [address] STATES OF [facility] BLOOD TB SCREENon 10-27-2024 M. tuberculosis tuberculin stim IFN-g Ql (Bld) Negative Normal [facility] Comment on above: Order Comment: Speci men Type: BLOOD SPECIMENOrdering Facility: [facility] Address: [address] [place] [address] Performed By: #### I NFTBP ####[facility] LABCLIA [id number] [place] [address] [place] MITOGEN MINUS NIL >9.99 Normal >=0.50 [facility] Comment on above: Order Comment: Speci men Type: BLOOD SPECIMENOrdering Facility: [facility] Address: [address] [place] [address] Performed By: #### I NFTBP ####[facility] LABCLIA [id number] [place] [id number] [place] TB GAMMA INTERPRETATION Normal [facility] Comment on above: Order Comment: Speci men Type: BLOOD SPECIMENOrdering Facility: [facility] Address: [address] [place] [address] Performed By: #### I NFTBP ####[facility] LABCLIA [id number] [place] [address] [place] TB NIL 0.01 IU/mL Normal <=8.00 [facility] Comment on above: Order Comment: Speci men Type: BLOOD SPECIMENOrdering Facility: [facility] Address: [address] [place] [address] Performed By: #### I NFTBP ####[facility] LABCLIA [id number] [place] [address] [place] TB1 AG MINUS NIL 0.03 IU/mL Normal <0.[address] [facility] Comment on above: Order Comment: Speci men Type: BLOOD SPECIMENOrdering Facility: [facility] Address: [address] [place] [address] Performed By: #### I NFTBP ####[facility] LABCLIA [id number] [place] [address] [place] TB2 AG MINUS NIL 0.05 IU/mL Normal <0.[address] [facility] Comment on above: Order Comment: Speci men Type: BLOOD SPECIMENOrdering Facility: [facility] Address: [address] [place] [address] Performed By: #### I NFTBP ####[facility] LABCLIA [id number] [place] [address] [place] C-REACTIVE PROTEINon 025 CRP [Mass/Vol] 0.5 mg/dL [facility] - 0.9 mg/dL [facility] CBC W Auto Differential pane l (Bld)on 10-27-2024 Basophils (Bld) [#/Vol] 0.07 10*3/uL [facility] Basophils/100 WBC (Bld) 1.2 % [facility] Differential cell count method Nom (Bld) Auto [facility] Eosinophils (Bld) [#/Vol] 0.46 10*3/uL High [facility] Eosinophils/100 WBC (Bld) 8 % [facility] Erythrocyte distribution width (RBC) [Ratio] 14.5 % 11.5 - 15.0 % [facility] Hematocrit (Bld) [Volume fraction] 42.5 % 36.0 - 46.0 % [facility] Hemoglobin (Bld) [Mass/Vol] 14.2 g/dL 11.5 - 15.5 g/dL [facility] Immature granulocytes (Bld) [#/Vol] [facility] Immature granulocytes/100 WBC (Bld) 0.3 % [facility] Interpretation and review of laboratory results Abnormal [facility] Lymphocytes (Bld) [#/Vol] 1.79 10*3/uL [facility] Lymphocytes/100 WBC (Bld) 31.3 % [facility] MCH (RBC) [Entitic mass] 30.3 pg 26.0 - 34.0 pg [facility] MCHC (RBC) [Mass/Vol] 33.4 g/dL 30.5 - 36.0 g/dL [facility] MCV (RBC) [Entitic vol] 90.6 fL 80.0 - 100.0 fL [facility] Monocytes (Bld) [#/Vol] 0.53 10*3/uL [facility] Monocytes/100 WBC (Bld) 9.3 % [facility] Neutrophils (Bld) [#/Vol] 2.85 10*3/uL [facility] Neutrophils/100 WBC (Bld) 49.9 % [facility] Nucleated RBC (Bld) [#/Vol] [facility] Nucleated RBC/100 WBC (Bld) [Ratio] 0 % /100 WBC [facility] Platelet mean volume (Bld) [Entitic vol] 10.1 fL 9.0 - 12.7 fL [facility] Platelets (Bld) [#/Vol] 287 10*3/uL [facility] RBC (Bld) [#/Vol] 4.69 10*6/uL 3.90 - 5.2 0 m/uL [facility] WBC (Bld) [#/Vol] 5.72 10*3/uL [facility] Basophils (Bld) [#/Vol] 0.07 10*3/uL Normal <0.11 [facility] Comment on above: Order Comment: Speci men Type: BLOOD SPECIMENOrdering Facility: [facility] Address: [address] [place], [place] [address] Performed By: #### 5 7021-8, 7 ####[facility] LABCLIA [id number] [facility] [address], [place] [address] [place] Basophils/100 WBC (Bld) 1.2 % Normal [facility] Comment on above: Order Comment: Speci men Type: BLOOD SPECIMENOrdering Facility: [facility] Address: [address] [place] [address] Performed By: #### 5 7021-8, 7 ####[facility] LABCLIA [id number] [facility] [address], [place] [address] [place] Differential cell count method Nom (Bld) Auto Normal [facility] Comment on above: Order Comment: Speci men Type: BLOOD SPECIMENOrdering Facility: [facility] Address: [address] [place] [address] Performed By: #### 5 7021-8, 7 ####[facility] LABCLIA [id number] [facility] [address], [place] [address] [place] Eosinophils (Bld) [#/Vol] 0.46 10*3/uL High <0.46 [facility] Comment on above: Order Comment: Speci men Type: BLOOD SPECIMENOrdering Facility: [facility] Address: [address] [place] [address] Performed By: #### 5 7021-8, 7 ####[facility] LABCLIA [id number] [facility] [address], [place] [address] [place] Eosinophils/100 WBC (Bld) 8.0 % Normal [facility] Comment on above: Order Comment: Speci men Type: BLOOD SPECIMENOrdering Facility: [facility] Address: [address] [place] [address] Performed By: #### 5 7021-8, 4536-7 ####[facility] LABCLIA [id number] [facility] [place] [address] [place] Erythrocyte distribution width (RBC) [Ratio] 14.5 % Normal 11.5-15.0 [facility] Comment on above: Order Comment: Speci men Type: BLOOD SPECIMENOrdering Facility: [facility] Address: [address] [place] [address] Performed By: #### 5 7021-8, 4537-7 ####[facility] LABCLIA [id number] [place] [address] [place] Hematocrit (Bld) [Volume fraction] 42.5 % Normal 36.0-46.0 [facility] Comment on above: Order Comment: Speci men Type: BLOOD SPECIMENOrdering Facility: [facility] Address: [address] [place] [address] Performed By: #### 5 7021-8, 4537-7 ####[facility] LABCLIA [id number] [place] [address] [place] Hemoglobin (Bld) [Mass/Vol] 14.2 g/dL Normal 11.5-15.5 [facility] Comment on above: Order Comment: Speci men Type: BLOOD SPECIMENOrdering Facility: [facility] Address: [address] [place] [address] Performed By: #### 5 7021-8, 4537-7 ####[facility] LABIA [id number] [place] [address] [place] Immature granulocytes (Bld) [#/Vol] 10*3/uL Normal <0.10 [facility] Comment on above: Order Comment: Speci men Type: BLOOD SPECIMENOrdering Facility: [facility] Address: [address] [place] [address] Performed By: #### 5 7021-8, 4537-7 ####[facility] LABCLIA [id number] [place] [address] [place] Immature granulocytes/100 WBC (Bld) 0.3 % Normal [facility] Comment on above: Order Comment: Speci men Type: BLOOD SPECIMENOrdering Facility: [facility] Address: [address] [place] [address] Performed By: #### 5 7021-8, 4536-7 ####[facility] LABCLIA [id number] [place] [address] [place] Lymphocytes (Bld) [#/Vol] 1.79 10*3/uL Normal 1.00-4.00 [facility] Comment on above: Order Comment: Speci men Type: BLOOD SPECIMENOrdering Facility: [facility] Address: [address] [place] [address] Performed By: #### 5 7021-8, 4536-7 ####[facility] LABCLIA [id number] [place] [address] [place] Lymphocytes/100 WBC (Bld) 31.3 % Normal [facility] Comment on above: Order Comment: Speci men Type: BLOOD SPECIMENOrdering Facility: [facility] Address: [address] [place] [address] Performed By: #### 5 7021-8, 7 ####[facility] LABCLIA [id number] [place] [address] [place] MCH (RBC) [Entitic mass] 30.3 pg Normal 26.0-34.0 [facility] Comment on above: Order Comment: Speci men Type: BLOOD SPECIMENOrdering Facility: [facility] Address: [address] [place] [address] Performed By: #### 5 7021-8, 4536-7 ####[facility] LABCLIA [id number] [place] [address] [place] MCHC (RBC) [Mass/Vol] 33.4 g/dL Normal 30.5-36.0 [facility] Comment on above: Order Comment: Speci men Type: BLOOD SPECIMENOrdering Facility: [facility] Address: [address] [place] [address] Performed By: #### 5 7021-8, 7-7 ####[facility] LABCLIA [id number] [place] [address] [place] MCV (RBC) [Entitic vol] 90.6 fL Normal 80.0-100.0 [facility] Comment on above: Order Comment: Speci men Type: BLOOD SPECIMENOrdering Facility: [facility] Address: [address] [place] [address] Performed By: #### 5 7021-8, 4536-7 ####[facility] LABIA [id number] [place] [address] [place] Monocytes (Bld) [#/Vol] 0.53 10*3/uL Normal <0.87 [facility] Comment on above: Order Comment: Speci men Type: BLOOD SPECIMENOrdering Facility: [facility] Address: [address] [place] [address] Performed By: #### 5 7021-8, 4536-7 ####[facility] LABIA [id number] [place] [address] [place] Monocytes/100 WBC (Bld) 9.3 % Normal [facility] Comment on above: Order Comment: Speci men Type: BLOOD SPECIMENOrdering Facility: [facility] Address: [address] [place] [address] Performed By: #### 5 7021-8, 4536-7 ####[facility] LABIA [id number] [place] [id number] [place] Neutrophils (Bld) [#/Vol] 2.85 10*3/uL Normal 1.45-7.50 [facility] Comment on above: Order Comment: Speci men Type: BLOOD SPECIMENOrdering Facility: [facility] Address: [address] [place] [address] Performed By: #### 5 7021-8, 7-7 ####[facility] LABCLIA [id number] [place] [id number] [place] Neutrophils/100 WBC (Bld) 49.9 % Normal [facility] Comment on above: Order Comment: Speci men Type: BLOOD SPECIMENOrdering Facility: [facility] Address: [address] [place] [address] Performed By: #### 5 7021-8, 4536-7 ####[facility] LABCLIA [id number] [place] [address] [place] Nucleated RBC (Bld) [#/Vol] 10*3/uL Normal <0.01 [facility] Comment on above: Order Comment: Speci men Type: BLOOD SPECIMENOrdering Facility: [facility] Address: [address] [place] [address] Performed By: #### 5 7021-8, 4536-7 ####[facility] LABIA [id number] [place] [address] [place] Nucleated RBC/100 WBC (Bld) [Ratio] 0.0 /100 WBC Normal [facility] Comment on above: Order Comment: Speci men Type: BLOOD SPECIMENOrdering Facility: [facility] Address: [address] [place] [address] Performed By: #### 5 7021-8, 4536-7 ####[facility] LABIA [id number] [place] [address] [place] Platelet mean volume (Bld) [Entitic vol] 10.1 fL Normal 9.0-12.7 [facility] Comment on above: Order Comment: Speci men Type: BLOOD SPECIMENOrdering Facility: [facility] Address: [address] [place] [address] Performed By: #### 5 7021-8, 7-7 ####[facility] LABCLIA [id number] [place] [id number] [place] Platelets (Bld) [#/Vol] 287 10*3/uL Normal 150-400 [facility] Comment on above: Order Comment: Speci men Type: BLOOD SPECIMENOrdering Facility: [facility] Address: [address] [place] [address] Performed By: #### 5 7021-8, 4537-7 ####[facility] LABCLIA [id number] [place] [address] [place] RBC (Bld) [#/Vol] 4.69 10*6/uL Normal 3.90-5.20 [facility] Comment on above: Order Comment: Speci men Type: BLOOD SPECIMENOrdering Facility: [facility] Address: [address] [place] [address] Performed By: #### 5 7021-8, 4537-7 ####[facility] LABCLIA [id number] [place] [address] [place] WBC (Bld) [#/Vol] 5.72 10*3/uL Normal 3.70-11.00 [facility] Comment on above: Order Comment: Speci men Type: BLOOD SPECIMENOrdering Facility: [facility] Address: [address] [place] [address] Performed By: #### 5 7021-8, 4537-7 ####[facility] LABCLIA [id number] [place] [address] [place] CNOVon 10-27-2024 CNOV Normal [facility] CNPNon 10-27-2024 CNPN Normal [facility] CRP SerPl-mCncon 10-27-2024 CRP [Mass/Vol] 0.5 mg/dL Normal <0.9 [facility] Comment on above: Order Comment: Speci men Type: BLOOD SPECIMENOrdering Facility: [facility] Address: [address] [place] [address] Performed By: #### 1 988-5, 10994-8, 36933-8 ####[facility] LABCLIA [id number] [address] [place] [address] [place] CRP [Mass/Vol]on 10-27-2024 Interpretation and review of laboratory results Normal [facility] Centromere Ab IF Ql (S)on Centromere Ab Qn (S) <0.2 Normal <1.0 [facility] Comment on above: Order Comment: Speci men Type: BLOOD SPECIMENOrdering Facility: [facility] Address: [address] [place] [address] Result Comment: Anti -centromere antibody is used as in aid in diagnosis of systemic sclerosis. Clinical correlation is required.Test Methodology: Multiplex flow immunoassay. Performed By: #### 4 7322-3, 64815-1, 30842-3, ANAIFR, 51174-8, 90582-7, 32383-7, 64985-0, 58111-7, 67894-5 ####[facility] LABCLIA [id number] [address] [place] [address] [place] Performed By: #### 2 9374-6, 33209-6, 84459-9, 05451-3, 01779-8, 46261-3, 23636-4, 99773-0 ####[facility] LABCLIA [id number] [address] [place] [address] [place] CENTROMERE AB QUAL Negative Normal Negative [facility] Comment on above: Order Comment: Speci men Type: BLOOD SPECIMENOrdering Facility: [facility] Address: [address] [place] [address] Performed By: #### 4 7322-3, 94545-6, 60155-1, ANAIFR, 46366-3, 02707-8, 61751-7, 55519-4, 47951-8, 79863-1 ####[facility] LABCLIA [id number] [address] [place] [address] [place] Performed By: #### 2 9374-6, 86961-3, 77355-2, 84332-1, 32302-4, 56185-3, 39387-0, 66866-9 ####[facility] LABCLIA [id number] [place] [address] [place] Chromatin Ab Qnon 10-27-2024 CHROMATIN AB QUAL Negative Normal Negative [facility] Comment on above: Order Comment: Speci men Type: BLOOD SPECIMENOrdering Facility: [facility] Address: [address] [place] [address] Performed By: #### 4 7322-3, 91285-1, 07916-0, ANAIFR, 15174-0, 05302-5, 40164-0, 92969-5, 96385-0, 95196-4 ####[facility] LABCLIA [id number] [address] Performed By: #### 2 9374-6, 60746-6, 37287-3, 69353-0, 60494-9, 50390-0, 50399-4, 27280-0 ####[facility] LABCLIA [id number] [address] STATES [facility] Chromatin Ab SerPl-aCncon Chromatin Ab Qn <0.2 Normal <1.0 [facility] Comment on above: Order Comment: Speci men Type: BLOOD SPECIMENOrdering Facility: [facility] Address: [address] [place] [address] Result Comment: Test Methodology: Multiplex flow immunoassay. Performed By: #### 4 7322-3, 90587-2, 63014-9, ANAIFR, 66130-4, 54380-4, 32717-4, 35452-1, 17878-0, 28106-6 ####[facility] LABCLIA [id number] [address] Performed By: #### 2 9374-6, 21520-8, 52264-9, 68720-4, 41024-9, 43332-4, 32949-6, 53590-2 ####[facility] SHAILA [id number] [place] [address] [place] Comprehensive metabolic 2000 panelon 10-27-2024 Albumin [Mass/Vol] 4.5 g/dL 3.9 - 4.9 g/dL [facility] ALP [Catalytic activity/Vol] 90 U/L 34 - 123 U/L [facility] ALT [Catalytic activity/Vol] 20 U/L 7 - 38 U/L [facility] Anion gap [Moles/Vol] 14 mmol/L 8 - 15 mmol/L [facility] AST [Catalytic activity/Vol] 22 U/L 13 - 35 U/L [facility] Bilirubin [Mass/Vol] 0.4 mg/dL 0.2 - 1 .3 mg/dL [facility] Calcium [Mass/Vol] 10.6 mg/dL High 8.5 - 10. 2 mg/dL [facility] Chloride [Moles/Vol] 104 mmol/L 98 - 10 7 mmol/L [facility] CO2 [Moles/Vol] 21 mmol/L Low 22 - 30 mmol/L [facility] Creatinine [Mass/Vol] 0.83 mg/dL 0.58 - 0.96 mg/dL [facility] GFR/1.73 sq M.predicted among non-blacks MDRD (S/P/Bld) [Vol rate/Area] 84 mL/min/{1.73_m2} - PINF [facility] Comment on above: Estimated Glomerular Filtration Rate (eGFR) is calculated using the 2020 CKD-EPI creatinine equation. This equation utilizes serum creatinine, sex, and age as parameters. The creatinine assay has traceable calibration to isotope dilution-mass spectrometry. Refer to KDIGO guidelines for clinical interpretation. In patients with unstable renal function, e.g. those with acute kidney injury, the eGFR may not accurately reflect actual GFR. Glucose [Mass/Vol] 111 mg/dL High 74 - 99 mg/dL [facility] Comment on above: The [place] Diab[employer] Association (ADA) provides guidance for cutoff values [...] Standards of Medical Care in Diabetes 2016, [place] [employer]. Diabetes Care. 2016.39(Suppl 1). Interpretation and review of laboratory results Abnormal [facility] Potassium [Moles/Vol] 4.2 mmol/L 3.7 - 5.1 mmol/L [facility] Protein [Mass/Vol] 8.2 g/dL High 6.3 - 8.0 g/dL [facility] Sodium [Moles/Vol] 139 mmol/L 136 - 144 mmol/L [facility] Urea nitrogen [Mass/Vol] 12 mg/dL 7 - 21 mg/dL [facility] Albumin [Mass/Vol] 4.5 g/dL Normal 3.9-4.9 [facility] Comment on above: Order Comment: Speci men Type: BLOOD SPECIMENOrdering Facility: [facility] Address: [address] [place] [address] Performed By: #### 1 988-5, 83719-0, 79095-6 ####[facility] [id number] [place] [address] [place] ALP [Catalytic activity/Vol] 90 U/L Normal 34-123 [facility] Comment on above: Order Comment: Speci men Type: BLOOD SPECIMENOrdering Facility: [facility] Address: [address] [place] [address] Performed By: #### 1 988-5, 96831-5, 35022-4 ####[facility] LABIA [id number] [place] [address] [place] ALT [Catalytic activity/Vol] 20 U/L Normal 7-38 [facility] Comment on above: Order Comment: Speci men Type: BLOOD SPECIMENOrdering Facility: [facility] Address: [address] [place] [address] Performed By: #### 1 988-5, 16735-3, 71409-7 ####[facility] LABCLIA [id number] [place] [address] [place] Anion gap [Moles/Vol] 14 mmol/L Normal 8-15 [facility] Comment on above: Order Comment: Speci men Type: BLOOD SPECIMENOrdering Facility: [facility] Address: [address] [place] [address] Performed By: #### 1 988-5, 39376-7, 81387-5 ####[facility] LABIA [id number] [place] [address] [place] AST [Catalytic activity/Vol] 22 U/L Normal 13-35 [facility] Comment on above: Order Comment: Speci men Type: BLOOD SPECIMENOrdering Facility: [facility] Address: [address] [place] [address] Performed By: #### 1 988-5, 87847-4, 63388-1 ####[facility] LABIA [id number] [place] [address] [place] Bilirubin [Mass/Vol] 0.4 mg/dL Normal 0.2-1.3 [facility] Comment on above: Order Comment: Speci men Type: BLOOD SPECIMENOrdering Facility: [facility] Address: [address] [place] [address] Performed By: #### 1 988-5, 95923-2, 43728-1 ####[facility] LABIA [id number] [place] [id number] [place] Calcium [Mass/Vol] 10.6 mg/dL High 8.5-10.2 [facility] Comment on above: Order Comment: Speci men Type: BLOOD SPECIMENOrdering Facility: [facility] Address: [address] [place] [address] Performed By: #### 1 988-5, 80917-1, 95595-4 ####[facility] LABCLIA [id number] [address] [address] [place] Chloride [Moles/Vol] 104 mmol/L Normal 98-107 [facility] Comment on above: Order Comment: Speci men Type: BLOOD SPECIMENOrdering Facility: [facility] Address: [address] [place] [address] Performed By: #### 1 988-5, 41096-9, 94230-2 ####[facility] LABIA [id number] [place] [address] [place] CO2 [Moles/Vol] 21 mmol/L Low 22-30 [facility] Comment on above: Order Comment: Speci men Type: BLOOD SPECIMENOrdering Facility: [facility] Address: [address] [place] [address] Performed By: #### 1 988-5, 07504-7, 05420-3 ####[facility] LABIA [id number] [place] [address] [place] Creatinine [Mass/Vol] 0.83 mg/dL Normal 0.58-0.96 [facility] Comment on above: Order Comment: Speci men Type: BLOOD SPECIMENOrdering Facility: [facility] Address: [address] [place] [address] Performed By: #### 1 988-5, 74198-2, 06016-3 ####[facility] LABIA [id number] [address] [address] [place] Creatinine and Glomerular filtration rate.predicted panel (S/P/Bld) 84 mL/min/1.73m??? Normal >=60 [facility] Comment on above: Order Comment: Speci men Type: BLOOD SPECIMENOrdering Facility: [facility] Address: [address] [place] [address] Result Comment: Anna mated Glomerular Filtration Rate (eGFR) is calculated using the 2020 CKD-EPI creatinine equation. This equation utilizes serum creatinine, sex, and age as parameters. The creatinine assay has traceable calibration to isotope dilution-mass spectrometry. Refer to KDIGO guidelines for clinical interpretation. In patients with unstable renal function, e.g. those with acute kidney injury, the eGFR may not accurately reflect actual GFR. Performed By: #### 1 988-5, 16916-2, 43384-6 ####[facility]CLIA [id number] [place] [address] [place] Glucose [Mass/Vol] 111 mg/dL High 74-99 [facility] Comment on above: Order Comment: Jet otto Type: BLOOD SPECIMENOrdering Facility: [facility] Address: [address] [place] [address] Result Comment: The [place] [employer] (ADA) provides guidance for cutoff values for fasting glucose and random glucose. The ADA defines fasting as no caloric intake for at least 8 hours. Fasting plasma glucose results between 100 to 125 mg/dL indicate increased risk for diabetes (prediabetes).Fasting plasma glucose results greater than or equal to 126 mg/dL meet the criteria for diagnosis of diabetes. In the absence of unequivocal hyperglycemia, results should be confirmed by repeat testing. In a patient with classic symptoms of hyperglycemia or hyperglycemic crisis, random plasma glucose results greater than or equal to 200 mg/dL meet the criteria for diagnosis of diabetes.Reference: Standards of Medical Care in Diabetes 2016, [place] [employer]. Diabetes Care. 2016.39(Suppl 1). Performed By: #### 1 988-5, 70787-3, ####[facility] [id number] [address] [address] [place] Potassium [Moles/Vol] 4.2 mmol/L Normal 3.7-5.1 [facility] Comment on above: Order Comment: Jet otto Type: BLOOD SPECIMENOrdering Facility: [facility] Address: [address] [place] [address] Performed By: #### 1 988-5, 25745-2, 46200-5 ####[facility] [id number] [address] [address] [place] Protein [Mass/Vol] 8.2 g/dL High 6.3-8.0 [facility] Comment on above: Order Comment: Speci men Type: BLOOD SPECIMENOrdering Facility: [facility] Address: [address] [place] [address] Performed By: #### 1 988-5, 75271-2, 67616-6 ####[facility] [id number] [place] [address] [place] Sodium [Moles/Vol] 139 mmol/L Normal 136-144 [facility] Comment on above: Order Comment: Speci men Type: BLOOD SPECIMENOrdering Facility: [facility] Address: [address] [place] [address] Performed By: #### 1 988-5, 25649-8, 74909-5 ####[facility] [id number] [place] [address] [place] Urea nitrogen [Mass/Vol] 12 mg/dL Normal 7-21 [facility] Comment on above: Order Comment: Speci men Type: BLOOD SPECIMENOrdering Facility: [facility] Address: [address] [place] [address] Performed By: #### 1 988-5, 79478-5, 60645-9 ####[facility] [id number] [place] [address] [place] Cyclic citrullinated peptide IgG Qnon 10-27-2024 CCP ANTIBODY IGG QUALITATIVE Positive Abnormal Negative [facility] Comment on above: Order Comment: Speci men Type: BLOOD SPECIMENOrdering Facility: [facility] Address: [address] [place] [address] Performed By: #### 3 3935-8 ####[facility] [id number] [place] [id number] [place] DNA double strand Ab IA Qn ( S)on 10-27-2024 DNA ANTIBODY 265 IU/mL High <=200 [facility] Comment on above: Order Comment: Speci men Type: BLOOD SPECIMENOrdering Facility: [facility] Address: [address] [place] [address] Result Comment: Nega tive: <200 IU/mLEquivocal: 201-300 IU/mLModerate Positive: 301-800 IU/mLStrong Positive: >801 IU/mL Performed By: #### 4 7322-3, 53191-5, 25415-7, ANAIFR, 17731-0, 20245-4, 25884-7, 76422-4, 22247-3, 88000-5 ####[facility] [id number] [place] [address] [place] DNA ANTIBODY QUALITATIVE INTERPRETATION Equivocal Abnormal Negative [facility] Comment on above: Order Comment: Speci men Type: BLOOD SPECIMENOrdering Facility: [facility] Address: [address] [place] [address] Performed By: #### 4 7322-3, 08046-5, 89654-0, ANAIFR, 37426-6, 05097-5, 92283-3, 44749-7, 16101-0, 64002-9 ####[facility] [id number] [place] [address] [place] Jo1 Ab Ser-aCncon 2024 Melody-1 extractable nuclear Ab Qn (S) <0.2 Normal <1.0 [facility] Comment on above: Order Comment: Speci men Type: BLOOD SPECIMENOrdering Facility: [facility] Address: [address] [place] [address] Performed By: #### 4 7322-3, 19205-1, 34168-6, ANAIFR, 60161-8, 60671-9, 47192-2, 98484-7, 23054-1, 46255-3 ####[facility] [id number] [address], [facility]95 [facility] Performed By: #### 2 9374-6, 81476-5, 49139-3, 48434-8, 33378-5, 77390-6, 03539-9, 06834-2 ####[facility] [id number] [address], [facility] [place] ENVIRONMENTAL TECHNOLOGY PROFESSOR Ab Ser-aCncon 2024 Ribonucleoprotein extractable nuclear Ab Qn (S) <0.2 Normal <1.0 [facility] Comment on above: Order Comment: Speci men Type: BLOOD SPECIMENOrdering Facility: [facility] Address: [address] [place] [address] Performed By: #### 4 7322-3, 21243-0, 28126-9, ANAIFR, 95253-1, 52749-4, 95913-7, 80699-0, 08406-4, 44565-9 ####[facility] [id number] [address], [address] Performed By: #### 2 9374-6, 47037-4, 02083-4, 33344-8, 49508-4, 55112-9, 37669-9, 09145-1 ####[facility] [id number] [address], [address] [place] SM IgG Ser-aCncon 2024 Abbott extractable nuclear IgG Qn (S) <0.2 Normal <1.0 [facility] Comment on above: Order Comment: Speci men Type: BLOOD SPECIMENOrdering Facility: [facility] Address: [address] [place] [address] Performed By: #### 4 7322-3, 78584-4, 30731-6, ANAIFR, 20847-1, 93643-8, 47414-3, 36068-1, 60976-3, 83448-6 ####[facility] [id number] [address] Performed By: #### 2 9374-6, 66089-9, 06857-2, 56366-1, 95664-0, 45738-3, 55489-7, 55863-8 ####[facility] [id number] [address] [place] SS-A Ab Ser-aCncon 10-27 Sjogrens syndrome-A extractable nuclear Ab Qn (S) <0.2 Normal <1.0 [facility] Comment on above: Order Comment: Speci men Type: BLOOD SPECIMENOrdering Facility: [facility] Address: [address] [place] [address] Result Comment: Test Methodology: Multiplex flow immunoassay. Performed By: #### 4 7322-3, 99364-7, 40243-6, ANAIFR, 44266-9, 61733-3, 34890-2, 08977-5, 87957-8, 48316-0 ####[facility] [id number] [address], [address] STATES OF [facility] Performed By: #### 2 9374-6, 51289-5, 75054-8, 92217-6, 05641-7, 68928-6, 01409-7, 03588-4 ####[facility] [id number] [address], [address] [place] SS-B Ab Ser-aCncon 10-27 Sjogrens syndrome-B extractable nuclear Ab Qn (S) <0.2 Normal <1.0 [facility] Comment on above: Order Comment: Speci men Type: BLOOD SPECIMENOrdering Facility: [facility] Address: [address] [place] [address] Result Comment: Anti -SSB (anti-La) antibody is used as an aid in diagnosis of a variety of systemic autoimmune diseases, especially for Sjogren's syndrome and systemic lupus erythematosus. Clinical correlation is required.Test Methodology: Multiplex flow immunoassay. Performed By: #### 4 7322-3, 46933-3, 26926-3, ANAIFR, 09571-1, 25411-7, 07832-0, 98931-8, 93461-1, 70228-0 ####[facility] [id number] [place] [address] [place] Performed By: #### 2 9374-6, 60000-6, 90960-9, 11453-2, 32283-3, 35186-1, 38203-6, 68580-0 ####[facility] [id number] [address] [place] ESR Westergren method (Bld) [Velocity]on 10-27-2024 ESR (Bld) [Velocity] 8 mm/h [facility] Interpretation and review of laboratory results Normal [facility] ESR (Bld) [Velocity] 8 mm/h Normal 0-20 [facility] Comment on above: Order Comment: Speci men Type: BLOOD SPECIMENOrdering Facility: [facility] Address: [address] [place] [address] Performed By: #### 5 7021-8, 4537-7 ####[facility] [id number] [address] STATES [place] HBV core Ab Ser Qlon 025 HBV core Ab Ql (S) Negative Normal Negative [facility] Comment on above: Order Comment: Speci men Type: BLOOD SPECIMENOrdering Facility: [facility] Address: [address] [place] [address] Result Comment: No e vidence of current or past infection with Hepatitis B virus. Should recent infection be suspected, repeat testing may be considered 3-4 weeks after this draw. Performed By: #### 5 195-3, 61729-4, 17878-6 ####[facility] [id number] [address] [place] HBV surface Ab Ql (S)on 10-09 HBV surface Ab Qn (S) <8.00 Normal [facility] Comment on above: Order Comment: Speci men Type: BLOOD SPECIMENOrdering Facility: [facility] Address: [address] [place] [address] Result Comment: <8 m IU/mL: No serological evidence of immunity to Hepatitis B Virus.>/= 8 to <12 mIU/mL: No serological evidence of immunity to Hepatitis B Virus.>/= 12 mIU/mL: Consistent with serological evidence of immunity to Hepatitis B Virus. Performed By: #### 5 195-3, 14080-5, 34299-8 ####[facility] [id number] [address] [place] HBV surface Ab Ser Qlon 10-09 HBV surface Ab Ql (S) Negative Normal [facility] Comment on above: Order Comment: Speci men Type: BLOOD SPECIMENOrdering Facility: [facility] Address: [address] [place] [address] Result Comment: No s erological evidence of immunity to Hepatitis B Virus. Performed By: #### 5 195-3, 85441-0, 86825-5 ####[facility] [id number] [place] [address] [place] HBV surface Ag Ser Qlon 10-09 HBV surface Ag Ql (S) Negative Normal Negative [facility] Comment on above: Order Comment: Speci men Type: BLOOD SPECIMENOrdering Facility: [facility] Address: [address] [place] [address] Performed By: #### 5 195-3, 33287-6, 68609-4 ####[facility] [id number] [place] [address] [place] HCV Ab Ser Qlon 10-27-2024 HCV Ab Ql (S) Negative Normal Negative [facility] Comment on above: Order Comment: Speci men Type: BLOOD SPECIMENOrdering Facility: [facility] Address: [address] [place] [address] Result Comment: The result suggests no evidence of infection with Hepatitis C virus. Should recent infection be suspected, repeat testing may be considered 4-6 weeks after this draw. Performed By: #### 1 6128-1 ####[facility] [id number] [place] [address] [place] Emlody-1 extractable nuclear Ab Qn (S)on 10-27-2024 MELODY 1 ANTIBODY QUAL Negative Normal Negative [facility] Comment on above: Order Comment: Jet otto Type: BLOOD SPECIMENOrdering Facility: [facility] Address: [address] [place] [address] Result Comment: Anti -MELODY-1 antibody is used as an aid in diagnosis of polymyositis and dermatomyositis especially with pulmonary involvement. A negative result cannot rule out polymyositis or dermatomyositis. Clinical correlation is required.Test Methodology: Multiplex flow immunoassay. Performed By: #### 4 7322-3, 14959-0, 37079-6, ANAIFR, 62131-6, 37136-7, 62319-4, 18064-3, 97779-6, 24633-1 ####[facility] [id number] [address] [address] [place] Performed By: #### 2 9374-6, 38618-3, 23588-5, 68963-4, 89528-2, 05272-4, 92562-3, 64593-1 ####[facility] [id number] [address] [address] [place] RHEUMATOID FACTORon 10-28-19 25 Rheumatoid factor Qn 238 [IU]/mL High NINF [facility] Rheumatoid fact SerPl-aCncon 10-27-2024 Rheumatoid factor Qn 238 [IU]/mL High <16 [facility] Comment on above: Order Comment: Jet otto Type: BLOOD SPECIMENOrdering Facility: [facility] Address: [address] [place] [address] Performed By: #### 1 988-5, 21739-4, 54035-1 ####[facility] [id number] [place] [address] [place] Rheumatoid factor Qnon 10-27 Interpretation and review of laboratory results Abnormal [facility] Ribonucleoprotein extractabl e nuclear Ab Qn (S)on 10-27-2024 ANTI-ENVIRONMENTAL TECHNOLOGY PROFESSOR QUAL Negative Normal Negative [facility] Comment on above: Order Comment: Speci men Type: BLOOD SPECIMENOrdering Facility: [facility] Address: [address] [place] [address] Performed By: #### 4 7322-3, 27300-8, 98724-3, ANAIFR, 20787-6, 74035-3, 41079-1, 36285-0, 29033-9, 28277-5 ####[facility] [id number] [place] [address] [place] Performed By: #### 2 9374-6, 35747-6, 76021-1, 44759-2, 46524-5, 06521-3, 62054-0, 65666-1 ####[facility] [id number] [place] [address] [place] RIBOSOMAL ENVIRONMENTAL TECHNOLOGY PROFESSOR QUAL Negative Normal Negative [facility] Comment on above: Order Comment: Speci men Type: BLOOD SPECIMENOrdering Facility: [facility] Address: [address] [place] [address] Result Comment: Anti -Ribosomal RNA (Ribosomal P) antibody is used as an aid in diagnosis of systemic autoimmune diseases especially systemic lupus erythematosus and mixed connective tissue disease. Cross-reactivity with Anti-abbott antibody is not uncommon. Clinical correlation is required.Test Methodology: Multiplex flow immunoassay. Performed By: #### 4 7322-3, 34900-9, 39080-3, ANAIFR, 25769-2, 40160-5, 15705-1, 95204-5, 84117-4, 88821-1 ####[facility] [id number] [address] [place] Performed By: #### 2 9374-6, 50247-8, 79819-7, 79101-0, 22922-6, 67030-9, 53414-8, 19038-7 ####[facility] [id number] [address], [address] [place] SCL-70 extractable nuclear I gG IA Qn (S)on 10-27-2024 SCLERODERMA AB QUAL Negative Normal Negative [facility] Comment on above: Order Comment: Speci men Type: BLOOD SPECIMENOrdering Facility: [facility] Address: [address] [place] [address] Performed By: #### 4 7322-3, 03260-7, 86431-8, ANAIFR, 51169-9, 29989-1, 08523-8, 92139-6, 61261-6, 04218-6 ####[facility] [id number] [address], [address] [place] Performed By: #### 2 9374-6, 23663-1, 72548-9, 86507-1, 21194-8, 63481-0, 32307-0, 36774-5 ####[facility] [id number] [address], [address] [place] SCLERODERMA IGG AB <0.2 Normal <1.0 [facility] Comment on above: Order Comment: Speci men Type: BLOOD SPECIMENOrdering Facility: [facility] Address: [address] [place] [address] Result Comment: Scl- 70/Scleroderma antibody test is used as an aid in diagnosis of systemic sclerosis especially the diffuse cutaneous form. A negative result cannot rule out systemic sclerosis. The final interpretation should consider clinical picture and other test results such as anti-centromere antibody. Test Methodology: Multiplex flow immunoassay. Performed By: #### 4 7322-3, 15094-9, 94166-1, ANAIFR, 97788-5, 61863-7, 30695-5, 06260-2, 92340-7, 52553-2 ####[facility] [id number] [address] [place] [address] [facility] Performed By: #### 2 9374-6, 23218-1, 30040-6, 68194-4, 70771-0, 81607-1, 51283-3, 71578-2 ####[facility] [id number] [address] [place] [address] [facility] [place] Sjogrens syndrome-A extracta ble nuclear Ab Qn (S)on 10-27-2024 SSA ANTIBODY QUAL Negative Normal Negative [facility] Comment on above: Order Comment: Speci men Type: BLOOD SPECIMENOrdering Facility: [facility] Address: [address] [place] [address] Performed By: #### 4 7322-3, 05150-4, 79741-3, ANAIFR, 34696-3, 36969-6, 37413-2, 50813-2, 91918-3, 95743-3 ####[facility] [id number] [address] [place] [address] [place] [address] [place] Performed By: #### 2 9374-6, 63530-9, 27749-6, 88096-4, 76584-1, 72286-5, 06252-9, 29941-6 ####[facility] [id number] [address] [place] [address] [place] Sjogrens syndrome-B extracta ble nuclear Ab Qn (S)on 10-27-2024 SSB ANTIBODY QUAL Negative Normal Negative [facility] Comment on above: Order Comment: Speci men Type: BLOOD SPECIMENOrdering Facility: [facility] Address: [address] [place] [address] Performed By: #### 4 7322-3, 76738-6, 72628-2, ANAIFR, 24900-6, 14803-6, 93217-4, 56201-7, 81047-4, 76928-5 ####[facility] [id number] [address] [place] [address] [facility] [place] Performed By: #### 2 9374-6, 42714-9, 45797-1, 74269-3, 64449-1, 89465-9, 15569-1, 89220-2 ####[facility] [id number] [address], [address] OF [facility] Abbott extractable nuclear Ig G Qn (S)on 10-27-2024 SM ANTIBODY QUAL Negative Normal Negative [facility] Comment on above: Order Comment: Speci men Type: BLOOD SPECIMENOrdering Facility: [facility] Address: [address] [place] [address] Result Comment: Anti -Sm (Abbott) antibody is used as an aid in diagnosis of systemic lupus erythematosus and its presence is associated with renal disease. A negative result cannot rule out systemic lupus erythematosus. Clinical correlation is required.Test Methodology: Multiplex flow immunoassay. Performed By: #### 4 7322-3, 19442-3, 14457-7, ANAIFR, 56144-4, 51957-8, 31949-5, 88690-8, 40234-4, 16918-4 ####[facility] [id number] [place] [id number] [facility] [place] Performed By: #### 2 9374-6, 98655-6, 66502-4, 72517-9, 56885-6, 97141-5, 62039-0, 70228-2 ####[facility] [id number] [address] [place] [address] [place] XR ANKLE 3V AP/LAT/OBL BILon 10-27-2024 XR ANKLE 3V AP/LAT/OBL DEB Normal [facility] XR FOOT SURVEY 1V AP BILon 0 10-27-2024 XR FOOT SURVEY 1V AP DEB Normal [facility] XR HAND/WRIST SURVEY 1V PA B ILon 10-27-2024 XR HAND/WRIST SURVEY 1V PA DEB Normal [facility] XR HIP DEB 5V PEL+ AP/LAT EA HIPon 10-27-2024 XR HIP DEB 5V PEL+ AP/LAT EA HIP Normal [facility] XR KNEE 4V AP/PA/LAT/MERCH B ILon 10-27-2024 XR KNEE 4V AP/PA/LAT/MERCH DEB Normal [facility] XR LUMBAR 3V AP/LAT/L5-S1on 10-27-2024 XR LUMBAR 3V AP/LAT/L5-S1 Normal [facility] cCP IgG SerPl-aCncon 025 Cyclic citrullinated peptide IgG Qn 44 Units High <20 [facility] Comment on above: Order Comment: Speci men Type: BLOOD SPECIMENOrdering Facility: [facility] Address: [address] [place] [address] Performed By: #### 3 3935-8 ####[facility] [id number] [place] [address] [place] A1AT SerPl-mCncon 10-26-2024 Alpha 1 antitrypsin [Mass/Vol] 157 mg/dL Normal 90-200 [facility] Comment on above: Order Comment: Speci men Type: BLOOD SPECIMENOrdering Facility: [facility] Address: [address] [place] [address] Performed By: #### 1 825-9 ####[facility] [id number] [place] [address] [place] ALGN RESP DISEASE PROF REG 5 on 10-26-2024 A. alternata IgE Qn (S) <0.35 Normal <0.35 [facility] Comment on above: Order Comment: Speci men Type: BLOOD SPECIMENOrdering Facility: [facility] Address: [address] [place] [address] Performed By: #### L [id number] ####[facility] [id number] [place] [address] [place] A. alternata IgE RAST class (S) Class 0 Normal Class 0 [facility] Comment on above: Order Comment: Speci men Type: BLOOD SPECIMENOrdering Facility: [facility] Address: [address] [place] [address] Performed By: #### L [id number] ####[facility] [id number] [place] [address] [place] A. fumigatus IgE Qn (S) <0.35 Normal <0.35 [facility] Comment on above: Order Comment: Speci men Type: BLOOD SPECIMENOrdering Facility: [facility] Address: [address] [place] [address] Performed By: #### L [id number] ####[facility] [id number] [place] [address] [place] A. fumigatus IgE RAST class (S) Class 0 Normal Class 0 [facility] Comment on above: Order Comment: Speci men Type: BLOOD SPECIMENOrdering Facility: [facility] Address: [address] [place] [address] Performed By: #### L [id number] ####[facility] [id number] [place] [address] [place] Bangladeshi house dust mite IgE Qn (S) <0.35 Normal <0.35 [facility] Comment on above: Order Comment: Speci men Type: BLOOD SPECIMENOrdering Facility: [facility] Address: [address] [place] [address] Performed By: #### L [id number] ####[facility] [id number] [place] [address] [place] Bangladeshi house dust mite IgE RAST class (S) Class 0 Normal Class [address] [facility] Comment on above: Order Comment: Speci men Type: BLOOD SPECIMENOrdering Facility: [facility] Address: [address] [place], [place] [address] Performed By: #### L [id number] ####[facility] [id number] [place] [id number] [place] [facility] Bermuda grass IgE Qn (S) <0.35 Normal <0.35 [facility] Comment on above: Order Comment: Speci men Type: BLOOD SPECIMENOrdering Facility: [facility] Address: [address] [place], [place] [address] Performed By: #### L [id number] ####[facility] [id number] [address] STATES OF [facility] Bermuda grass IgE RAST class (S) Class 0 Normal Class 0 [facility] Comment on above: Order Comment: Speci men Type: BLOOD SPECIMENOrdering Facility: [facility] Address: [address] [place] [address] Performed By: #### L [id number] ####[facility] [id number] [address] STATES OF [facility] Boxelder IgE Qn (S) <0.35 Normal <0.35 [facility] Comment on above: Order Comment: Speci men Type: BLOOD SPECIMENOrdering Facility: [facility] Address: [address] [place] [address] Performed By: #### L [id number] ####[facility] [id number] [place] [id number] [place] Boxelder IgE RAST class (S) Class 0 Normal Class 0 [facility] Comment on above: Order Comment: Speci men Type: BLOOD SPECIMENOrdering Facility: [facility] Address: [address] [place], [place] [address] Performed By: #### L [id number] ####[facility] [id number] [place] [id number] [place] C. herbarum IgE Qn (S) <0.35 Normal <0.35 [facility] Comment on above: Order Comment: Speci men Type: BLOOD SPECIMENOrdering Facility: [facility] Address: [address] [place] [address] Performed By: #### L [id number] ####[facility] LABCLIA [id number] [place] [address] [place] C. herbarum IgE RAST class (S) Class 0 Normal Class 0 [facility] Comment on above: Order Comment: Speci men Type: BLOOD SPECIMENOrdering Facility: [facility] Address: [address] [place] [address] Performed By: #### L [id number] ####[facility] LABCLIA [id number] [place] [address] [place] Cat dander IgE Qn (S) <0.35 Normal <0.35 [facility] Comment on above: Order Comment: Speci men Type: BLOOD SPECIMENOrdering Facility: [facility] Address: [address] [place] [address] Performed By: #### L [id number] ####[facility] LABCLIA [id number] [place] [address] [place] Cat dander IgE RAST class (S) Class 0 Normal Class 0 [facility] Comment on above: Order Comment: Speci men Type: BLOOD SPECIMENOrdering Facility: [facility] Address: [address] [place], [place] [id number] Performed By: #### L [id number] ####[facility] LABCLIA [id number] [place] [id number] [place] Cocklebur IgE Qn (S) <0.35 Normal <0.35 [facility] Comment on above: Order Comment: Speci men Type: BLOOD SPECIMENOrdering Facility: [facility] Address: [address] [place] [address] Performed By: #### L [id number] ####[facility]CL[facility] [id number] [place] [address] [place] Cocklebur IgE RAST class (S) Class 0 Normal Class 0 [facility] Comment on above: Order Comment: Speci men Type: BLOOD SPECIMENOrdering Facility: [facility] Address: [address] [place] [address] Performed By: #### L [id number] ####[facility] [id number] [place] [address] [facility] [place] Cockroach IgE Qn (S) <0.35 Normal <0.35 [facility] Comment on above: Order Comment: Speci men Type: BLOOD SPECIMENOrdering Facility: [facility] Address: [address] [place] [address] Performed By: #### L [id number] ####[facility] [id number] [place] [address] [place] Cockroach IgE RAST class (S) Class 0 Normal Class 0 [facility] Comment on above: Order Comment: Speci men Type: BLOOD SPECIMENOrdering Facility: [facility] Address: [address] [place] [address] Performed By: #### L [id number] ####[facility] [id number] [place] [address] [place] Common Pigweed IgE Qn (S) <0.35 Normal <0.35 [facility] Comment on above: Order Comment: Speci men Type: BLOOD SPECIMENOrdering Facility: [facility] Address: [address] [place] [address] Performed By: #### L [id number] ####[facility] [id number] [place] [id number] [place] Common Pigweed IgE RAST class (S) Class 0 Normal Class 0 [facility] Comment on above: Order Comment: Speci men Type: BLOOD SPECIMENOrdering Facility: [facility] Address: [address] [place] [address] Performed By: #### L [id number] ####[facility] [id number] [place] [id number] [place] Common Ragweed IgE Qn (S) <0.35 Normal <0.35 [facility] Comment on above: Order Comment: Speci men Type: BLOOD SPECIMENOrdering Facility: [facility] Address: [address] [place] [address] Performed By: #### L [id number] ####[facility] [id number] [place] [address] [place] [facility] Common Ragweed IgE RAST class (S) Class 0 Normal Class 0 [facility] Comment on above: Order Comment: Speci men Type: BLOOD SPECIMENOrdering Facility: [facility] Address: [address] [place] [address] Performed By: #### L [id number] ####[facility] [id number] [place] [address] [place] Schleicher IgE Qn (S) <0.35 Normal <0.35 [facility] Comment on above: Order Comment: Speci men Type: BLOOD SPECIMENOrdering Facility: [facility] Address: [address] [place] [address] Performed By: #### L [id number] ####[facility] [id number] [place] [address] [place] Schleicher IgE RAST class (S) Class 0 Normal Class 0 [facility] Comment on above: Order Comment: Speci men Type: BLOOD SPECIMENOrdering Facility: [facility] Address: [address] [place] [address] Performed By: #### L [id number] ####[facility] [id number] [place] [address] [place] Dog dander IgE Qn (S) <0.35 Normal <0.35 [facility] Comment on above: Order Comment: Speci men Type: BLOOD SPECIMENOrdering Facility: [facility] Address: [address] [place] [address] Performed By: #### L [id number] ####[facility] [id number] [place] [address] [place] Dog dander IgE RAST class (S) Class 0 Normal Class 0 [facility] Comment on above: Order Comment: Speci men Type: BLOOD SPECIMENOrdering Facility: [facility] Address: [address] [place] [address] Performed By: #### L [id number] ####[facility] [id number] [place] [address] [place] Hungarian plantain IgE Qn (S) <0.35 Normal <0.35 [facility] Comment on above: Order Comment: Speci men Type: BLOOD SPECIMENOrdering Facility: [facility] Address: [address] [place] [address] Performed By: #### L [id number] ####[facility]CL[facility] [id number] [place] [address] [place] Hungarian plantain IgE RAST class (S) Class 0 Normal Class 0 [facility] Comment on above: Order Comment: Speci men Type: BLOOD SPECIMENOrdering Facility: [facility] Address: [address] [place], [place] [id number] Performed By: #### L [id number] ####[facility] [id number] [place] [id number] [place] house dust mite IgE Qn (S) <0.35 Normal <0.35 [facility] Comment on above: Order Comment: Speci men Type: BLOOD SPECIMENOrdering Facility: [facility] Address: [address] [place] [address] Performed By: #### L [id number] ####[facility] [id number] [place] [address] [place] house dust mite IgE RAST class (S) Class 0 Normal Class [address] [facility] Comment on above: Order Comment: Speci men Type: BLOOD SPECIMENOrdering Facility: [facility] Address: [address] [place] [address] Performed By: #### L [id number] ####[facility]CL[facility] [id number] [place] [address] [place] Goose[place] IgE Qn (S) <0.35 Normal <0.35 [facility] Comment on above: Order Comment: Speci men Type: BLOOD SPECIMENOrdering Facility: [facility] Address: [address] [place] [address] Performed By: #### L [id number] ####[facility] LABIA [id number] [address] [place] Goose[place] IgE RAST class (S) Class 0 Normal Class 0 [facility] Comment on above: Order Comment: Speci men Type: BLOOD SPECIMENOrdering Facility: [facility] Address: [address] [place] [address] Performed By: #### L [id number] ####[facility] [id number] [place] [id number] [place] Ortiz grass smut IgE Qn (S) <0.35 Normal <0.35 [facility] Comment on above: Order Comment: Speci men Type: BLOOD SPECIMENOrdering Facility: [facility] Address: [address] [place], [place] [id number] Performed By: #### L [id number] ####[facility] [id number] [address] [place] Ortiz vang smut IgE RAST class (S) Class 0 Normal Class 0 [facility] Comment on above: Order Comment: Speci men Type: BLOOD SPECIMENOrdering Facility: [facility] Address: [address] [place] [address] Performed By: #### L [id number] ####[facility]CL[facility] [id number] [place] [address] [place] IgE Qn (S) <0.35 Normal <0.35 [facility] Comment on above: Order Comment: Speci men Type: BLOOD SPECIMENOrdering Facility: [facility] Address: [address] [place] [address] Performed By: #### L [id number] ####[facility] [id number] [place] [address] [place] [facility] IgE RAST class (S) Class 0 Normal Class 0 [facility] Comment on above: Order Comment: Speci men Type: BLOOD SPECIMENOrdering Facility: [facility] Address: [address] [place], [place] [id number] Performed By: #### L [id number] ####[facility]CL[facility] [id number] [place] [address] [place] [facility] IgE Qn (S) <0.35 Normal <0.35 [facility] Comment on above: Order Comment: Speci men Type: BLOOD SPECIMENOrdering Facility: [facility] Address: [address] [place] [address] Performed By: #### L [id number] ####[facility]CL[facility] [id number] [place] [address] [place] [facility] Elder IgE RAST class (S) Class 0 Normal Class 0 [facility] Comment on above: Order Comment: Speci men Type: BLOOD SPECIMENOrdering Facility: [facility] Address: [address] [place] [address] Performed By: #### L [id number] ####[facility]CL[facility] [id number] [place] [address] [place] Mouse urine proteins IgE Qn (S) <0.35 Normal <0.35 [facility] Comment on above: Order Comment: Speci men Type: BLOOD SPECIMENOrdering Facility: [facility] Address: [address] [place] [address] Performed By: #### L [id number] ####[facility] LABIA [id number] [place] [address] [place] Mouse urine proteins IgE RAST class (S) Class 0 Normal Class 0 [facility] Comment on above: Order Comment: Speci men Type: BLOOD SPECIMENOrdering Facility: [facility] Address: [address] [place] [address] Performed By: #### L [id number] ####[facility] LABIA [id number] [place] [address] [place] Pecan or Bibb Tree IgE Qn (S) <0.35 Normal <0.35 [facility] Comment on above: Order Comment: Speci men Type: BLOOD SPECIMENOrdering Facility: [facility] Address: [address] [place] [address] Performed By: #### L [id number] ####[facility] LABIA [id number] [place] [address] [place] Pecan or Bibb Tree IgE RAST class (S) Class 0 Normal Class 0 [facility] Comment on above: Order Comment: Speci men Type: BLOOD SPECIMENOrdering Facility: [facility] Address: [address] [place] [address] Performed By: #### L [id number] ####[facility] LABIA [id number] [place] [address] [place] Sheep [place] IgE Qn (S) <0.35 Normal <0.35 [facility] Comment on above: Order Comment: Speci men Type: BLOOD SPECIMENOrdering Facility: [facility] Address: [address] [place], [place] [address] Performed By: #### L [id number] ####[facility]CL[facility] [id number] [address] [address] [place]ep [place] IgE RAST class (S) Class 0 Normal Class 0 [facility] Comment on above: Order Comment: Speci men Type: BLOOD SPECIMENOrdering Facility: [facility] Address: [address] [place], [place] [id number] Performed By: #### L [id number] ####[facility]CLIA [id number] [place] [id number] [place] Silver Birch IgE Qn (S) <0.35 Normal <0.35 [facility] Comment on above: Order Comment: Speci men Type: BLOOD SPECIMENOrdering Facility: [facility] Address: [address] [place], [place] [id number] Performed By: #### L [id number] ####[facility]CL[facility] [id number] [place] [address] [place] Silver [place]ch IgE RAST class (S) Class 0 Normal Class 0 [facility] Comment on above: Order Comment: Speci men Type: BLOOD SPECIMENOrdering Facility: [facility] Address: [address] [place] [address] Performed By: #### L [id number] ####[facility]CL[facility] [id number] [address] [address] [place] Luca IgE Qn (S) <0.35 Normal <0.35 [facility] Comment on above: Order Comment: Speci men Type: BLOOD SPECIMENOrdering Facility: [facility] Address: [address] [place], [place] [address] Performed By: #### L [id number] ####[facility]CLIA [id number] [address] [place] [address] [place] Luca IgE RAST class (S) Class 0 Normal Class 0 [facility] Comment on above: Order Comment: Speci men Type: BLOOD SPECIMENOrdering Facility: [facility] Address: [address] [place], [place] [id number] Performed By: #### L [id number] ####[facility]CL[facility] [id number] [address] [place] [address] [place] White Yariel IgE Qn (S) <0.35 Normal <0.35 [facility] Comment on above: Order Comment: Speci men Type: BLOOD SPECIMENOrdering Facility: [facility] Address: [address] [place], [place] [address] Performed By: #### L [id number] ####[facility]CLIA [id number] [place] [address] [place] White Yariel IgE RAST class (S) Class 0 Normal Class 0 [facility] Comment on above: Order Comment: Speci men Type: BLOOD SPECIMENOrdering Facility: [facility] Address: [address] [place], [place] [address] Performed By: #### L [id number] ####[facility]CL[facility] [id number] [place] [id number] [place] IgE Qn (S) <0.35 Normal <0.35 [facility] Comment on above: Order Comment: Speci men Type: BLOOD SPECIMENOrdering Facility: [facility] Address: [address] [place], [place] [id number] Performed By: #### L [id number] ####[facility]CL[facility] [id number] [place] [id number] [place] IgE RAST class (S) Class 0 Normal Class 0 [facility] Comment on above: Order Comment: Speci men Type: BLOOD SPECIMENOrdering Facility: [facility] Address: [address] [place] [address] Performed By: #### L [id number] ####[facility]CL[facility] [id number] [address] [place] White mulberry IgE Qn (S) <0.35 Normal <0.35 [facility] Comment on above: Order Comment: Speci men Type: BLOOD SPECIMENOrdering Facility: [facility] Address: [address] [place] [address] Performed By: #### L [id number] ####[facility]CL[facility] [id number] [address] [place] White mulberry IgE RAST class (S) Class 0 Normal Class 0 [facility] Comment on above: Order Comment: Speci men Type: BLOOD SPECIMENOrdering Facility: [facility] Address: [address] [place] [address] Performed By: #### L [id number] ####[facility]CL[facility] [id number] [address] [place] IgE Qn (S) <0.35 Normal <0.35 [facility] Comment on above: Order Comment: Speci men Type: BLOOD SPECIMENOrdering Facility: [facility] Address: [address] [place] [address] Performed By: #### L [id number] ####[facility]CL[facility] [id number] [address] [place] IgE RAST class (S) Class 0 Normal Class 0 [facility] Comment on above: Order Comment: Speci men Type: BLOOD SPECIMENOrdering Facility: [facility] Address: [address] [place] [address] Performed By: #### L [id number] ####[facility]CL[facility] [id number] [place] [address] [place] ALPHA 1 ANTITRYP PHEN/GENOTY PEon 10-26-2024 HA1IN Normal [facility] Comment on above: Order Comment: Speci men Type: BLOOD SPECIMENOrdering Facility: [facility] Address: [address], [place] [address] Result Comment: Alph a 1 Antitrypsin Phenotype and GenotypeLaboratory Accession Number: [id number]:No Variant Detected in SERPINA1 (PI*MM)Interpretation:DNA testing indicates that this patient does not have the S, Z, F, Zander alleles of SERPINA1, the alpha-1 antitrypsin gene.Guidance:Genetic consultation and counseling of at risk family membersregarding this laboratory testing may be considered as clinicallyappropriate. Patients with no variants of SERPINA1 typically haveserum alpha-1 antitrypsin levels between 102-254 mg/dL. If thispatient has a serum alpha-1 antitrypsin level that is not consistentwith this genotype and alpha-1 antitrypsin deficiency caused by a rarevariant is clinically suspected, consider performing SERPINA1 genesequencing.Methodology:Isolated genomic DNA from the patient's blood specimen is evaluatedfor four variants in the alpha-1 antitrypsin gene SERPINA1 (RefSeqNM_[id number]; GRCh38/hg38) by multiplex polymerase chain reaction(PCR) followed by melting curve analysis. These included the two mostcommon pathogenic variants: S (c.863A>T, p.Htq033Hbz, g.84971810), Z(c.1096G>A, p.Dyo554Cul, g.33316272), and the rarer variants: F(c.739C>T, p.Swb550Fca, g.29090509), I (c.187C>T, p.Wfb46Zoz,g.01629650).Limitations:This Laboratory Developed Test (LDT) is designed to detect the S, Z, Fand I alleles. The S and Z alleles comprise 95% of non-wild typegenotypes. Uncommon variants or Single Nucleotide Polymorphisms mayaffect binding of LightMix or LightSNiP probes and may result in afalse negative, false positive, or indeterminate result. Absence ofthe S, Z, F, and I alleles is interpreted as PI*MM genotype. However,there are over 100 known rare variants of SERPINA1 that are notdetected by this LDT. Therefore, correlation of the genotype with thepatient's serum alpha-1 antitrypsin level and clinical manifestationsis strongly recommended.Frequency of S, Z, F and I Alleles in the general population:S: Heterozygous 2%; Homozygous 0.04%Z: Heterozygous 1%; Homozygous 0.01%F: Heterozygous 0.3%; Homozygous 0.001%I: Heterozygous 0.1%; Homozygous unknownAllele frequency information was gathered from the [employer] ([employer]) and includes data from , , ,and populations (supporting data in references).Disclaimer:This test was developed and its performance characteristics determinedby [facility]'s Path[facility] and [facility] Medicine Department. Ithas not been cleared or approved by the FDA. [facility] is regulated under CLIAas certified to perform high-complexity testing. This test is used forclinical purposes. It should not be regarded as investigational or forresearch.Testing and interpretation performed at [facility], [address] [place] [address]. CLIA Number: [id number]:1) Katerina RA, Yvonne G, Johnson ML, Magno M, Mustapha CE, K,Lakeisha DK, Frederick SL, Bebeto JM, Lian HernándezK, Trevor C, Jeanette J. The Diagnosis and Management of Alpha-1 Antritrypsin Deficiency inthe Adult. Chronic Obstr Pulm Dis. 2016 Jan 14;3:668-682.2) Shana JA, Tiffany ON, Sebastian ER, Bossman DG. a1-Antitrypsinphenotypes and associated serum protein concentrations in a largeclinical population. Chest.2013 Nov;143(4):1000-8.3) Mike A, Chayo NA, Chino CR, Lily FJ, Daniel SAMUEL, Leeanna. Molecular characterisation of three dwzre-3-ogzkjzrgzfv deficiencyvariants: proteinase inhibitor (Pi) nullcardiff (Uzi997----Xwi);PiMmalton (Evh66----lhywsihl) and PiI (Psm18----Thg). Hum Ginger. 1989Dec;84(1):55-8.4) Nina EK and Katerina BERNARD. Clinical practice.Alpha1-antitrypsin deficiency. N Engl J Med. 2008;360(85)4482-71.5) Justine REYNAGA, Nuno F, Javier BERNARD. The significance of the F variantof swgzw-8-fxeduryjncl and unique case report of a PiFF homozygote.[facility] Pulm Med. 2013Mar 17;14:132.6) Lian HernándezK, Donna MERCER, and Dayan Palmer. Alpha-1 AntitrypsinDeficiency. 2005Jun 06 [Updated 2017 August 29]. In: Major BERNARD, Shannon, Mario TO, et al., editors. [place] [Internet]. [place] ([place]):[facility], [place]; 2343-9343. Available from:http://www.ncbi.nlm.nih.gov/books/RKJ8488/As reviewed by Laverne Levin MD Performed By: #### A 1ATPG ####[facility] [id number] [place] [address] [place] CNOVon 10-26-2024 CNOV Normal [facility] CNOV Normal [facility] NITRIC OXIDE, EXHALEDon 10-09 Magali King RRT 10/26/2024 2:42 PM Oral Exhaled Nitric Oxide measurement (Previous Encounters) Test Date Oral Exhaled Nitric Oxide (ppb) 10/26/2024 34.0 06/30/2024 69.0 (A) Normal: Adult 5-20 ppb, pediatric (<12 years) 5-15 ppb High Normal / Increased: Adult 20-35 ppb, pediatric (<12 years) 15-25 ppb Moderately raised exhaled Nitric Oxide may indicate underlying inflammation, but note that: Cold and influenza can raise exhaled Nitric Oxide and some patients have higher baseline exhaled Nitric Oxide levels than others. High: Adult >35 ppb, pediatric (<12 years) >25 ppb Indicative of ongoing eosinophilic inflammation. Symptomatic patient likely to respond to steroids. Possible causes (if already on steroids): Poor compliance, recent allergen exposure, steroid dose inadequate, and steroid resistance. Note that not all patients with high exhaled nitric oxide levels display symptoms. [facility] THEOPHYLLINE/AMINOPHYLLINEon 10-26-2024 Theophylline [Mass/Vol] 6.7 ug/mL Low 10.0 - 20.0 ug/mL [facility] Comment on above: Reference ranges and high/low indicator flags are provided as general guidelines only. The treating physician must determine appropriate target levels/dosing based on the specific clinical situation. Theophylline SerPl-mCncon Theophylline [Mass/Vol] 6.7 ug/mL Low 10.0-20.0 [facility] Comment on above: Order Comment: Specgenoveva otto Type: BLOOD SPECIMENOrdering Facility: [facility] Address: [address] [place] [address] Result Comment: Refe rence ranges and high/low indicator flags are provided as general guidelines only. The treating physician must determine appropriate target levels/dosing based on the specific clinical situation. Performed By: #### 4 049-3 ####[facility] [id number] [place] [address] [place] Theophylline [Mass/Vol]on Interpretation and review of laboratory results Abnormal [facility] CNPTOUTREACHon 10-01-2024 CNPTOUTREACH Normal [facility] Basic metabolic 2000 panelon 09-09-2024 Anion gap [Moles/Vol] 15 mmol/L Normal 8-15 [facility] Comment on above: Order Comment: Jet otto Type: BLOOD SPECIMENOrdering Facility: [facility] Address: [address] [place] [address] Performed By: #### 2 4321-2 ####[facility] [id number] [place] [address] [place] Calcium [Mass/Vol] 9.8 mg/dL Normal 8.5-10.2 [facility] Comment on above: Order Comment: Jet otto Type: BLOOD SPECIMENOrdering Facility: [facility] Address: [address] [place] [address] Performed By: #### 2 4321-2 ####[facility]CL[facility] [id number] [place] [address] [place] Chloride [Moles/Vol] 98 mmol/L Normal 98-107 [facility] Comment on above: Order Comment: Speci men Type: BLOOD SPECIMENOrdering Facility: [facility] Address: [address] [place] [address] Performed By: #### 2 4321-2 ####[facility] [id number] [place] [address] [place] CO2 [Moles/Vol] 24 mmol/L Normal 22-30 [facility] Comment on above: Order Comment: Speci men Type: BLOOD SPECIMENOrdering Facility: [facility] Address: [address] [place] [address] Performed By: #### 2 4321-2 ####[facility] [id number] [place] [address] [place] Creatinine [Mass/Vol] 0.81 mg/dL Normal 0.58-0.96 [facility] Comment on above: Order Comment: Speci men Type: BLOOD SPECIMENOrdering Facility: [facility] Address: [address] [place] [address] Performed By: #### 2 4321-2 ####[facility] [id number] [address] OF [facility] Creatinine and Glomerular filtration rate.predicted panel (S/P/Bld) 86 mL/min/1.73m??? Normal >=60 [facility] Comment on above: Order Comment: Speci men Type: BLOOD SPECIMENOrdering Facility: [facility] Address: [address] [place] [address] Result Comment: Anna mated Glomerular Filtration Rate (eGFR) is calculated using the 2020 CKD-EPI creatinine equation. This equation utilizes serum creatinine, sex, and age as parameters. The creatinine assay has traceable calibration to isotope dilution-mass spectrometry. Refer to KDIGO guidelines for clinical interpretation. In patients with unstable renal function, e.g. those with acute kidney injury, the eGFR may not accurately reflect actual GFR. Performed By: #### 2 4321-2 ####[facility] [id number] [place] [address] [place] Glucose [Mass/Vol] 55 mg/dL Low 74-99 [facility] Comment on above: Order Comment: Speci men Type: BLOOD SPECIMENOrdering Facility: [facility] Address: [address] [place] [address] Result Comment: The [place] [employer] (ADA) provides guidance for cutoff values for fasting glucose and random glucose. The ADA defines fasting as no caloric intake for at least 8 hours. Fasting plasma glucose results between 100 to 125 mg/dL indicate increased risk for diabetes (prediabetes).Fasting plasma glucose results greater than or equal to 126 mg/dL meet the criteria for diagnosis of diabetes. In the absence of unequivocal hyperglycemia, results should be confirmed by repeat testing. In a patient with classic symptoms of hyperglycemia or hyperglycemic crisis, random plasma glucose results greater than or equal to 200 mg/dL meet the criteria for diagnosis of diabetes.Reference: Standards of Medical Care in Diabetes 2016, [place] [employer]. Diabetes Care. 2016.39(Suppl 1). Performed By: #### 2 4321-2 ####[facility] [id number] [place] [address] [place] Potassium [Moles/Vol] 3.8 mmol/L Normal 3.7-5.1 [facility] Comment on above: Order Comment: Jet men Type: BLOOD SPECIMENOrdering Facility: [facility] Address: [address] [place] [address] Performed By: #### 2 4321-2 ####[facility] [id number] [place] [address] [place] Sodium [Moles/Vol] 137 mmol/L Normal 136-144 [facility] Comment on above: Order Comment: Nathani men Type: BLOOD SPECIMENOrdering Facility: [facility] Address: [address] [place] [address] Performed By: #### 2 4321-2 ####[facility] [id number] [place] [address] [place] Urea nitrogen [Mass/Vol] 21 mg/dL Normal 7-21 [facility] Comment on above: Order Comment: Speci men Type: BLOOD SPECIMENOrdering Facility: [facility] Address: [address] [place] [address] Performed By: #### 2 4321-2 ####[facility] [id number] [place] [address] [place] CBC panel Auto (Bld)on 09-09 Erythrocyte distribution width (RBC) [Ratio] 14.2 % Normal 11.5-15.0 [facility] Comment on above: Order Comment: Speci men Type: BLOOD SPECIMENOrdering Facility: [facility] Address: [address] [place] [address] Performed By: #### 5 8410-2 ####[facility] [id number] [place] [address] [place] Hematocrit (Bld) [Volume fraction] 39.7 % Normal 36.0-46.0 [facility] Comment on above: Order Comment: Speci men Type: BLOOD SPECIMENOrdering Facility: [facility] Address: [address] [place] [address] Performed By: #### 5 8410-2 ####[facility] [id number] [place] [id number] [place] Hemoglobin (Bld) [Mass/Vol] 12.9 g/dL Normal 11.5-15.5 [facility] Comment on above: Order Comment: Speci men Type: BLOOD SPECIMENOrdering Facility: [facility] Address: [address] [place] [address] Performed By: #### 5 8410-2 ####[facility] [id number] [place] [address] [place] MCH (RBC) [Entitic mass] 29.5 pg Normal 26.0-34.0 [facility] Comment on above: Order Comment: Speci men Type: BLOOD SPECIMENOrdering Facility: [facility] Address: [address] [place] [address] Performed By: #### 5 8410-2 ####[facility] [id number] [place] [address] [place] MCHC (RBC) [Mass/Vol] 32.5 g/dL Normal 30.5-36.0 [facility] Comment on above: Order Comment: Speci men Type: BLOOD SPECIMENOrdering Facility: [facility] Address: [address] [place] [address] Performed By: #### 5 8410-2 ####[facility] [id number] [place] [address] [place] MCV (RBC) [Entitic vol] 90.8 fL Normal 80.0-100.0 [facility] Comment on above: Order Comment: Speci men Type: BLOOD SPECIMENOrdering Facility: [facility] Address: [address] [place] [address] Performed By: #### 5 8410-2 ####[facility] [id number] [place] [address] [place] Nucleated RBC (Bld) [#/Vol] 10*3/uL Normal <0.01 [facility] Comment on above: Order Comment: Speci men Type: BLOOD SPECIMENOrdering Facility: [facility] Address: [address] [place] [address] Performed By: #### 5 8410-2 ####[facility] [id number] [place] [address] [place] Platelet mean volume (Bld) [Entitic vol] 10.3 fL Normal 9.0-12.7 [facility] Comment on above: Order Comment: Speci men Type: BLOOD SPECIMENOrdering Facility: [facility] Address: [address] [place] [address] Performed By: #### 5 8410-2 ####[facility] [id number] [address] [address] [place] Platelets (Bld) [#/Vol] 320 10*3/uL Normal 150-400 [facility] Comment on above: Order Comment: Speci men Type: BLOOD SPECIMENOrdering Facility: [facility] Address: [address] [place] [address] Performed By: #### 5 8410-2 ####[facility] [id number] [place] [address] [place] RBC (Bld) [#/Vol] 4.37 10*6/uL Normal 3.90-5.20 [facility] Comment on above: Order Comment: Speci men Type: BLOOD SPECIMENOrdering Facility: [facility] Address: [address] [place] [address] Performed By: #### 5 8410-2 ####[facility] [id number] [place] [address] [place] WBC (Bld) [#/Vol] 11.50 10*3/uL High 3.70-11.00 [facility] Comment on above: Order Comment: Speci men Type: BLOOD SPECIMENOrdering Facility: [facility] Address: [address] [place] [address] Performed By: #### 5 8410-2 ####[facility] [id number] [place] [id number] [place] CNDSon 09-09-2024 CNDS Normal [facility] CONSULTon 09-09-2024 CONSULT Normal [facility] CONSULT PROGon 09-09-2024 CONSULT PROG Normal [facility] NURSING PROGon 09-09-2024 NURSING PROG Normal [facility] Basic metabolic 2000 panelon 09-08-2024 Anion gap [Moles/Vol] 16 mmol/L High 8-15 [facility] Comment on above: Order Comment: Speci men Type: BLOOD SPECIMENOrdering Facility: [facility] Address: [address] [place] [address] Performed By: #### 2 4321-2 ####[facility] [id number] [place] [address] [place] Calcium [Mass/Vol] 9.7 mg/dL Normal 8.5-10.2 [facility] Comment on above: Order Comment: Speci men Type: BLOOD SPECIMENOrdering Facility: [facility] Address: [address] [place] [address] Performed By: #### 2 4321-2 ####[facility] [id number] [place] [address] [place] Chloride [Moles/Vol] 97 mmol/L Low 98-107 [facility] Comment on above: Order Comment: Speci men Type: BLOOD SPECIMENOrdering Facility: [facility] Address: [address] [place] [address] Performed By: #### 2 4321-2 ####[facility] [id number] [place] [address] [place] CO2 [Moles/Vol] 22 mmol/L Normal 22-30 [facility] Comment on above: Order Comment: Speci men Type: BLOOD SPECIMENOrdering Facility: [facility] Address: [address] [place], [place] [address] Performed By: #### 2 4321-2 ####[facility] [id number] [place] [address] [place] Creatinine [Mass/Vol] 0.89 mg/dL Normal 0.58-0.96 [facility] Comment on above: Order Comment: Speci men Type: BLOOD SPECIMENOrdering Facility: [facility] Address: [address] [place] [address] Performed By: #### 2 4321-2 ####[facility] [id number] [place] [address] [place] Creatinine and Glomerular filtration rate.predicted panel (S/P/Bld) 77 mL/min/1.73m??? Normal >=60 [facility] Comment on above: Order Comment: Jet otto Type: BLOOD SPECIMENOrdering Facility: [facility] Address: [address] [place] [address] Result Comment: Anna mated Glomerular Filtration Rate (eGFR) is calculated using the 2020 CKD-EPI creatinine equation. This equation utilizes serum creatinine, sex, and age as parameters. The creatinine assay has traceable calibration to isotope dilution-mass spectrometry. Refer to KDIGO guidelines for clinical interpretation. In patients with unstable renal function, e.g. those with acute kidney injury, the eGFR may not accurately reflect actual GFR. Performed By: #### 2 4321-2 ####[facility] [id number] [place] [address] [place] Glucose [Mass/Vol] 99 mg/dL Normal 74-99 [facility] Comment on above: Order Comment: Jet otto Type: BLOOD SPECIMENOrdering Facility: [facility] Address: [address] [place] [address] Result Comment: The [place] [employer] (ADA) provides guidance for cutoff values for fasting glucose and random glucose. The ADA defines fasting as no caloric intake for at least 8 hours. Fasting plasma glucose results between 100 to 125 mg/dL indicate increased risk for diabetes (prediabetes).Fasting plasma glucose results greater than or equal to 126 mg/dL meet the criteria for diagnosis of diabetes. In the absence of unequivocal hyperglycemia, results should be confirmed by repeat testing. In a patient with classic symptoms of hyperglycemia or hyperglycemic crisis, random plasma glucose results greater than or equal to 200 mg/dL meet the criteria for diagnosis of diabetes.Reference: Standards of Medical Care in Diabetes 2016, [place] [employer]. Diabetes Care. 2016.39(Suppl 1). Performed By: #### 2 4321-2 ####[facility] [id number] [place] [address] [place] Potassium [Moles/Vol] 3.4 mmol/L Low 3.7-5.1 [facility] Comment on above: Order Comment: Speci men Type: BLOOD SPECIMENOrdering Facility: [facility] Address: [address] [place] [address] Performed By: #### 2 4321-2 ####[facility] [id number] [place] [address] [place] Sodium [Moles/Vol] 135 mmol/L Low 136-144 [facility] Comment on above: Order Comment: Speci men Type: BLOOD SPECIMENOrdering Facility: [facility] Address: [address] [place] [address] Performed By: #### 2 4321-2 ####[facility] [id number] [place] [address] [place] Urea nitrogen [Mass/Vol] 26 mg/dL High 7-21 [facility] Comment on above: Order Comment: Speci men Type: BLOOD SPECIMENOrdering Facility: [facility] Address: [address] [place] [address] Performed By: #### 2 4321-2 ####[facility] [id number] [place] [id number] [place] CASE MANAGEMon 09-08-2024 CASE MANAGEM Normal [facility] CBC panel Auto (Bld)on 09-08 Erythrocyte distribution width (RBC) [Ratio] 14.0 % Normal 11.5-15.0 [facility] Comment on above: Order Comment: Speci men Type: BLOOD SPECIMENOrdering Facility: [facility] Address: [address] [place] [address] Performed By: #### 5 8410-2 ####[facility] [id number] [place] [address] [place] Hematocrit (Bld) [Volume fraction] 39.4 % Normal 36.0-46.0 [facility] Comment on above: Order Comment: Speci men Type: BLOOD SPECIMENOrdering Facility: [facility] Address: [address] [place] [address] Performed By: #### 5 8410-2 ####[facility] [id number] [place] [address] [place] Hemoglobin (Bld) [Mass/Vol] 13.0 g/dL Normal 11.5-15.5 [facility] Comment on above: Order Comment: Speci men Type: BLOOD SPECIMENOrdering Facility: [facility] Address: [address] [place] [address] Performed By: #### 5 8410-2 ####[facility] [id number] [place] [address] [place] MCH (RBC) [Entitic mass] 29.4 pg Normal 26.0-34.0 [facility] Comment on above: Order Comment: Speci men Type: BLOOD SPECIMENOrdering Facility: [facility] Address: [address] [place] [address] Performed By: #### 5 8410-2 ####[facility] [id number] [place] [address] [place] MCHC (RBC) [Mass/Vol] 33.0 g/dL Normal 30.5-36.0 [facility] Comment on above: Order Comment: Speci men Type: BLOOD SPECIMENOrdering Facility: [facility] Address: [address] [place] [address] Performed By: #### 5 8410-2 ####[facility] [id number] [place] [address] [place] MCV (RBC) [Entitic vol] 89.1 fL Normal 80.0-100.0 [facility] Comment on above: Order Comment: Speci men Type: BLOOD SPECIMENOrdering Facility: [facility] Address: [address] [place] [address] Performed By: #### 5 8410-2 ####[facility] [id number] [place] [address] [place] Nucleated RBC (Bld) [#/Vol] 10*3/uL Normal <0.01 [facility] Comment on above: Order Comment: Speci men Type: BLOOD SPECIMENOrdering Facility: [facility] Address: [address] [place] [address] Performed By: #### 5 8410-2 ####[facility] [id number] [place] [address] [place] Platelet mean volume (Bld) [Entitic vol] 10.0 fL Normal 9.0-12.7 [facility] Comment on above: Order Comment: Speci men Type: BLOOD SPECIMENOrdering Facility: [facility] Address: [address] [place] [address] Performed By: #### 5 8410-2 ####[facility] [id number] [place] [address] [place] Platelets (Bld) [#/Vol] 318 10*3/uL Normal 150-400 [facility] Comment on above: Order Comment: Speci men Type: BLOOD SPECIMENOrdering Facility: [facility] Address: [address] [place] [address] Performed By: #### 5 8410-2 ####[facility] [id number] [place] [address] [place] RBC (Bld) [#/Vol] 4.42 10*6/uL Normal 3.90-5.20 [facility] Comment on above: Order Comment: Speci men Type: BLOOD SPECIMENOrdering Facility: [facility] Address: [address] [place] [address] Performed By: #### 5 8410-2 ####[facility] [id number] [address] [address] [place] WBC (Bld) [#/Vol] 11.18 10*3/uL High 3.70-11.00 [facility] Comment on above: Order Comment: Speci men Type: BLOOD SPECIMENOrdering Facility: [facility] Address: [address] [place] [address] Performed By: #### 5 8410-2 ####[facility] [id number] [place] [id number] [place] CONSULTon 09-08-2024 CONSULT Normal [facility] CONSULT PROGon 09-08-2024 CONSULT PROG Normal [facility] THERAPY NTon 09-08-2024 THERAPY NT Normal [facility] US LEG VEIN DVT UNL VAS LABo n 09-08-2024 US LEG VEIN DVT UNL VAS LAB Normal [facility] CONSULT PROGon 09-07-2024 CONSULT PROG Normal [facility] NUTRITIONon 09-07-2024 NUTRITION Normal [facility] ALLIED HEALTHon 09-06-2024 ALLIED HEALTH Normal [facility] ALLIED HEALTH Normal [facility] Basic metabolic 2000 panelon 09-06-2024 Anion gap [Moles/Vol] 14 mmol/L Normal 8-15 [facility] Comment on above: Order Comment: Speci men Type: BLOOD SPECIMENOrdering Facility: [facility] Address: [address] [place] [address] Performed By: #### 2 4321-2, 07999-8 ####[facility] [id number] [place] [id number] [place] Calcium [Mass/Vol] 9.5 mg/dL Normal 8.5-10.2 [facility] Comment on above: Order Comment: Speci men Type: BLOOD SPECIMENOrdering Facility: [facility] Address: [address] [place] [address] Performed By: #### 2 432-2, ####[facility] [id number] [facility] [address] [address] [place] Chloride [Moles/Vol] 96 mmol/L Low 98-107 [facility] Comment on above: Order Comment: Speci men Type: BLOOD SPECIMENOrdering Facility: [facility] Address: [address] [place] [address] Performed By: #### 2 432-2, ####[facility] [id number] [place] [address] [place] CO2 [Moles/Vol] 27 mmol/L Normal 22-30 [facility] Comment on above: Order Comment: Speci men Type: BLOOD SPECIMENOrdering Facility: [facility] Address: [address] [place] [address] Performed By: #### 2 4322, ####[facility] [id number] [place] [address] [place] Creatinine [Mass/Vol] 0.65 mg/dL Normal 0.58-0.96 [facility] Comment on above: Order Comment: Speci men Type: BLOOD SPECIMENOrdering Facility: [facility] Address: [address] [place] [address] Performed By: #### 2 432-2, ####[facility] [id number] [place] [id number] [place] Creatinine and Glomerular filtration rate.predicted panel (S/P/Bld) 105 mL/min/1.73m??? Normal >=60 [facility] Comment on above: Order Comment: Speci men Type: BLOOD SPECIMENOrdering Facility: [facility] Address: [address] [place] [address] Result Comment: Anna mated Glomerular Filtration Rate (eGFR) is calculated using the 2020 CKD-EPI creatinine equation. This equation utilizes serum creatinine, sex, and age as parameters. The creatinine assay has traceable calibration to isotope dilution-mass spectrometry. Refer to KDIGO guidelines for clinical interpretation. In patients with unstable renal function, e.g. those with acute kidney injury, the eGFR may not accurately reflect actual GFR. Performed By: #### 2 4320-, ####[facility] [id number] [place] [address] [place] Glucose [Mass/Vol] 164 mg/dL High 74-99 [facility] Comment on above: Order Comment: Specgenoveva men Type: BLOOD SPECIMENOrdering Facility: [facility] Address: [address] [place] [address] Result Comment: The [place] [employer] (ADA) provides guidance for cutoff values for fasting glucose and random glucose. The ADA defines fasting as no caloric intake for at least 8 hours. Fasting plasma glucose results between 100 to 125 mg/dL indicate increased risk for diabetes (prediabetes).Fasting plasma glucose results greater than or equal to 126 mg/dL meet the criteria for diagnosis of diabetes. In the absence of unequivocal hyperglycemia, results should be confirmed by repeat testing. In a patient with classic symptoms of hyperglycemia or hyperglycemic crisis, random plasma glucose results greater than or equal to 200 mg/dL meet the criteria for diagnosis of diabetes.Reference: Standards of Medical Care in Diabetes 2016, [place] [employer]. Diabetes Care. 2016.39(Suppl 1). Performed By: #### 2 4320-09, ####[facility] [id number] [place] [id number] [place] Potassium [Moles/Vol] 3.6 mmol/L Low 3.7-5.1 [facility] Comment on above: Order Comment: Jet otto Type: BLOOD SPECIMENOrdering Facility: [facility] Address: [address] [place] [address] Performed By: #### 2 4320-09, ####[facility] [id number] [place] [address] [place] Sodium [Moles/Vol] 137 mmol/L Normal 136-144 [facility] Comment on above: Order Comment: Speci men Type: BLOOD SPECIMENOrdering Facility: [facility] Address: [address] [place] [id number] Performed By: #### 2 4321-2, 92612-8 ####[facility] [id number] [place] [address] [place] Urea nitrogen [Mass/Vol] 18 mg/dL Normal 7-21 [facility] Comment on above: Order Comment: Speci men Type: BLOOD SPECIMENOrdering Facility: [facility] Address: [address] [place] [address] Performed By: #### 2 4321-2, ####[facility] [id number] [place] [address] [place] Anion gap [Moles/Vol] 14 mmol/L Normal 8-15 [facility] Comment on above: Order Comment: Speci men Type: BLOOD SPECIMENOrdering Facility: [facility] Address: [address] [place] [address] Performed By: #### 2 4321-2 ####[facility] [id number] [place] [address] [place] Calcium [Mass/Vol] 9.8 mg/dL Normal 8.5-10.2 [facility] Comment on above: Order Comment: Speci men Type: BLOOD SPECIMENOrdering Facility: [facility] Address: [address] [place] [id number] Performed By: #### 2 4321-2 ####[facility] [id number] [place] [address] [place] Chloride [Moles/Vol] 95 mmol/L Low 98-107 [facility] Comment on above: Order Comment: Speci men Type: BLOOD SPECIMENOrdering Facility: [facility] Address: [address] [place], [place] [id number] Performed By: #### 2 4321-2 ####[facility] [id number] [place] [address] [place] CO2 [Moles/Vol] 26 mmol/L Normal 22-30 [facility] Comment on above: Order Comment: Speci men Type: BLOOD SPECIMENOrdering Facility: [facility] Address: [address] [place] [address] Performed By: #### 2 4321-2 ####[facility] [id number] [place] [address] [place] Creatinine [Mass/Vol] 0.60 mg/dL Normal 0.58-0.96 [facility] Comment on above: Order Comment: Speci men Type: BLOOD SPECIMENOrdering Facility: [facility] Address: [address] [place] [address] Performed By: #### 2 4321-2 ####[facility] [id number] [place] [address] [place] Creatinine and Glomerular filtration rate.predicted panel (S/P/Bld) 107 mL/min/1.73m??? Normal >=60 [facility] Comment on above: Order Comment: Speci men Type: BLOOD SPECIMENOrdering Facility: [facility] Address: [address] [place] [address] Result Comment: Anna mated Glomerular Filtration Rate (eGFR) is calculated using the 2020 CKD-EPI creatinine equation. This equation utilizes serum creatinine, sex, and age as parameters. The creatinine assay has traceable calibration to isotope dilution-mass spectrometry. Refer to KDIGO guidelines for clinical interpretation. In patients with unstable renal function, e.g. those with acute kidney injury, the eGFR may not accurately reflect actual GFR. Performed By: #### 2 4321-2 ####[facility] [id number] [place] [id number] [place] Glucose [Mass/Vol] 86 mg/dL Normal 74-99 [facility] Comment on above: Order Comment: Speci men Type: BLOOD SPECIMENOrdering Facility: [facility] Address: [address] [place] [address] Result Comment: The [place] [employer] (ADA) provides guidance for cutoff values for fasting glucose and random glucose. The ADA defines fasting as no caloric intake for at least 8 hours. Fasting plasma glucose results between 100 to 125 mg/dL indicate increased risk for diabetes (prediabetes).Fasting plasma glucose results greater than or equal to 126 mg/dL meet the criteria for diagnosis of diabetes. In the absence of unequivocal hyperglycemia, results should be confirmed by repeat testing. In a patient with classic symptoms of hyperglycemia or hyperglycemic crisis, random plasma glucose results greater than or equal to 200 mg/dL meet the criteria for diagnosis of diabetes.Reference: Standards of Medical Care in Diabetes 2016, [place] [employer]. Diabetes Care. 2016.39(Suppl 1). Performed By: #### 2 4321-2 ####[facility] [id number] [place] [address] [place] Potassium [Moles/Vol] 3.4 mmol/L Low 3.7-5.1 [facility] Comment on above: Order Comment: Speci men Type: BLOOD SPECIMENOrdering Facility: [facility] Address: [address] [place] [address] Performed By: #### 2 4321-2 ####[facility] [id number] [place] [address] [place] Sodium [Moles/Vol] 135 mmol/L Low 136-144 [facility] Comment on above: Order Comment: Speci men Type: BLOOD SPECIMENOrdering Facility: [facility] Address: [address] [place] [address] Performed By: #### 2 4321-2 ####[facility] [id number] [place] [address] [place] Urea nitrogen [Mass/Vol] 18 mg/dL Normal 7-21 [facility] Comment on above: Order Comment: Speci men Type: BLOOD SPECIMENOrdering Facility: [facility] Address: [address] [place] [address] Performed By: #### 2 4321-2 ####[facility] [id number] [place] [address] [place] CASE MGT INIT ASSESon 2024 CASE MGT INIT ASSES Normal [facility] CBC panel Auto (Bld)on 09-06 Erythrocyte distribution width (RBC) [Ratio] 13.3 % Normal 11.5-15.0 [facility] Comment on above: Order Comment: Speci men Type: BLOOD SPECIMENOrdering Facility: [facility] Address: [address] [place] [address] Performed By: #### 5 8410-2 ####[facility] [id number] [place] [address] [place] Hematocrit (Bld) [Volume fraction] 39.0 % Normal 36.0-46.0 [facility] Comment on above: Order Comment: Speci men Type: BLOOD SPECIMENOrdering Facility: [facility] Address: [address] [place] [address] Performed By: #### 5 8410-2 ####[facility] LABIA [id number] [place] [address] [place] Hemoglobin (Bld) [Mass/Vol] 13.3 g/dL Normal 11.5-15.5 [facility] Comment on above: Order Comment: Speci men Type: BLOOD SPECIMENOrdering Facility: [facility] Address: [address] [place] [address] Performed By: #### 5 8410-2 ####[facility] [id number] [place] [address] [place] MCH (RBC) [Entitic mass] 29.6 pg Normal 26.0-34.0 [facility] Comment on above: Order Comment: Speci men Type: BLOOD SPECIMENOrdering Facility: [facility] Address: [address] [place] [address] Performed By: #### 5 8410-2 ####[facility] [id number] [place] [address] [place] MCHC (RBC) [Mass/Vol] 34.1 g/dL Normal 30.5-36.0 [facility] Comment on above: Order Comment: Speci men Type: BLOOD SPECIMENOrdering Facility: [facility] Address: [address] [place] [address] Performed By: #### 5 8410-2 ####[facility] [id number] [place] [address] [place] MCV (RBC) [Entitic vol] 86.7 fL Normal 80.0-100.0 [facility] Comment on above: Order Comment: Speci men Type: BLOOD SPECIMENOrdering Facility: [facility] Address: [address] [place] [address] Performed By: #### 5 8410-2 ####[facility] [id number] [place] [address] [place] Nucleated RBC (Bld) [#/Vol] 10*3/uL Normal <0.01 [facility] Comment on above: Order Comment: Speci men Type: BLOOD SPECIMENOrdering Facility: [facility] Address: [address] [place] [address] Performed By: #### 5 8410-2 ####[facility] [id number] [place] [address] [place] Platelet mean volume (Bld) [Entitic vol] 9.9 fL Normal 9.0-12.7 [facility] Comment on above: Order Comment: Speci men Type: BLOOD SPECIMENOrdering Facility: [facility] Address: [address] [place] [address] Performed By: #### 5 8410-2 ####[facility] [id number] [place] [address] [place] Platelets (Bld) [#/Vol] 254 10*3/uL Normal 150-400 [facility] Comment on above: Order Comment: Speci men Type: BLOOD SPECIMENOrdering Facility: [facility] Address: [address] [place] [address] Performed By: #### 5 8410-2 ####[facility] LABIA [id number] [place] [address] [place] RBC (Bld) [#/Vol] 4.50 10*6/uL Normal 3.90-5.20 [facility] Comment on above: Order Comment: Speci men Type: BLOOD SPECIMENOrdering Facility: [facility] Address: [address] [place] [address] Performed By: #### 5 8410-2 ####[facility] [id number] [place] [address] [place] WBC (Bld) [#/Vol] 7.92 10*3/uL Normal 3.70-11.00 [facility] Comment on above: Order Comment: Speci men Type: BLOOD SPECIMENOrdering Facility: [facility] Address: [address] [place] [address] Performed By: #### 5 8410-2 ####[facility] LABIA [id number] [place] [address] [place] Erythrocyte distribution width (RBC) [Ratio] 13.0 % Normal 11.5-15.0 [facility] Comment on above: Order Comment: Speci men Type: BLOOD SPECIMENOrdering Facility: [facility] Address: [address] [place] [address] Performed By: #### 5 8410-2 ####[facility] [id number] [place] [address] [place] Hematocrit (Bld) [Volume fraction] 37.4 % Normal 36.0-46.0 [facility] Comment on above: Order Comment: Speci men Type: BLOOD SPECIMENOrdering Facility: [facility] Address: [address] [place] [address] Performed By: #### 5 8410-2 ####[facility] [id number] [place] [address] [place] Hemoglobin (Bld) [Mass/Vol] 12.5 g/dL Normal 11.5-15.5 [facility] Comment on above: Order Comment: Speci men Type: BLOOD SPECIMENOrdering Facility: [facility] Address: [address] [place] [address] Performed By: #### 5 8410-2 ####[facility]IA [id number] [place] [address] [place] MCH (RBC) [Entitic mass] 29.1 pg Normal 26.0-34.0 [facility] Comment on above: Order Comment: Speci men Type: BLOOD SPECIMENOrdering Facility: [facility] Address: [address] [place] [address] Performed By: #### 5 8410-2 ####[facility]IA [id number] [place] [address] [place] MCHC (RBC) [Mass/Vol] 33.4 g/dL Normal 30.5-36.0 [facility] Comment on above: Order Comment: Speci men Type: BLOOD SPECIMENOrdering Facility: [facility] Address: [address] [place] [address] Performed By: #### 5 8410-2 ####[facility] [id number] [place] [address] [place] MCV (RBC) [Entitic vol] 87.0 fL Normal 80.0-100.0 [facility] Comment on above: Order Comment: Speci men Type: BLOOD SPECIMENOrdering Facility: [facility] Address: [address] [place] [address] Performed By: #### 5 8410-2 ####[facility] [id number] [place] [address] [place] Nucleated RBC (Bld) [#/Vol] 0.07 10*3/uL High <0.01 [facility] Comment on above: Order Comment: Speci men Type: BLOOD SPECIMENOrdering Facility: [facility] Address: [address] [place] [address] Performed By: #### 5 8410-2 ####[facility]IA [id number] [place] [address] [place] Platelet mean volume (Bld) [Entitic vol] 10.0 fL Normal 9.0-12.7 [facility] Comment on above: Order Comment: Speci men Type: BLOOD SPECIMENOrdering Facility: [facility] Address: [address] [place] [address] Performed By: #### 5 8410-2 ####[facility] [id number] [place] [address] [place] Platelets (Bld) [#/Vol] 258 10*3/uL Normal 150-400 [facility] Comment on above: Order Comment: Speci men Type: BLOOD SPECIMENOrdering Facility: [facility] Address: [address] [place] [address] Performed By: #### 5 8410-2 ####[facility] [id number] [place] [address] [place] RBC (Bld) [#/Vol] 4.30 10*6/uL Normal 3.90-5.20 [facility] Comment on above: Order Comment: Speci men Type: BLOOD SPECIMENOrdering Facility: [facility] Address: [address] [place] [address] Performed By: #### 5 8410-2 ####[facility] [id number] [address] [address] [place] WBC (Bld) [#/Vol] 13.96 10*3/uL High 3.70-11.00 [facility] Comment on above: Order Comment: Speci men Type: BLOOD SPECIMENOrdering Facility: [facility] Address: [address] [place] [address] Performed By: #### 5 8410-2 ####[facility] LABIA [id number] [place] [id number] [place] CONSULTon 09-06-2024 CONSULT Normal [facility] [id number] 09-06-2024 ECG01 Normal [facility] Gas and Carbon monoxide pane l (BldV)on 09-06-2024 Base excess Calc (BldV) [Moles/Vol] 6 mmol/L High 0-2 [facility] Comment on above: Order Comment: Speci men Type: VENOUS BLOOD SPECIMENOrdering Facility: [facility] Address: [address] [place] [address] Performed By: #### 2 4344-4 ####[facility] [id number] [place] [address] [place] Body temperature 99.14 [degF] Normal [facility] Comment on above: Order Comment: Speci men Type: VENOUS BLOOD SPECIMENOrdering Facility: [facility] Address: [address] [place] [address] Performed By: #### 2 4344-4 ####[facility] [id number] [place] [id number] [place] Calcium.ionized (Bld) [Mass/Vol] 1.22 mmol/L Normal 1.08-1.30 [facility] Comment on above: Order Comment: Speci men Type: VENOUS BLOOD SPECIMENOrdering Facility: [facility] Address: [address] [place] [address] Performed By: #### 2 4344-4 ####[facility] [id number] [place] [address] [place] Calcium.ionized adjusted to pH 7.4 (BldA) [Moles/Vol] 1.31 mmol/L High 1.08-1.30 [facility] Comment on above: Order Comment: Speci men Type: VENOUS BLOOD SPECIMENOrdering Facility: [facility] Address: [address] [place] [address] Performed By: #### 2 4344-4 ####[facility] [id number] [place] [address] [place] Carboxyhemoglobin (BldV) [Mass fraction] 0.7 % Normal 0.0-2.0 [facility] Comment on above: Order Comment: Speci men Type: VENOUS BLOOD SPECIMENOrdering Facility: [facility] Address: [address] [place] [address] Result Comment: Carb oxyhemoglobin Reference Range for Smokers: 2.0-8.0% Performed By: #### 2 4344-4 ####[facility] [id number] [place] [address] [place] CO2 (BldV) [Partial pressure] 33 mm[Hg] Low 42-55 [facility] Comment on above: Order Comment: Speci men Type: VENOUS BLOOD SPECIMENOrdering Facility: [facility] Address: [address] [place] [address] Performed By: #### 2 4344-4 ####[facility] [id number] [place] [address] [place] CO2 adjusted to patient's actual temperature (BldV) [Partial pressure] 34 mmHg Low 42-55 [facility] Comment on above: Order Comment: Speci men Type: VENOUS BLOOD SPECIMENOrdering Facility: [facility] Address: [address] [place] [address] Performed By: #### 2 4344-4 ####[facility] [id number] [place] [address] [place] Glucose [Mass/Vol] 95 mg/dL Normal 60-105 [facility] Comment on above: Order Comment: Speci men Type: VENOUS BLOOD SPECIMENOrdering Facility: [facility] Address: [address] [place] [address] Performed By: #### 2 4344-4 ####[facility] [id number] [place] [address] [place] HCO3 (Bld) [Moles/Vol] 28 mmol/L Normal 24-28 [facility] Comment on above: Order Comment: Speci men Type: VENOUS BLOOD SPECIMENOrdering Facility: [facility] Address: [address] [place] [address] Performed By: #### 2 4344-4 ####[facility] [id number] [place] [address] [place] Hematocrit (Bld) [Volume fraction] 40.1 % Normal 36.0-46.0 [facility] Comment on above: Order Comment: Speci men Type: VENOUS BLOOD SPECIMENOrdering Facility: [facility] Address: [address] [place] [address] Performed By: #### 2 4344-4 ####[facility] [id number] [place] [address] [place] Hemoglobin (Bld) [Mass/Vol] 13.1 g/dL Normal 11.5-15.5 [facility] Comment on above: Order Comment: Speci men Type: VENOUS BLOOD SPECIMENOrdering Facility: [facility] Address: [address] [place] [address] Performed By: #### 2 4344-4 ####[facility] [id number] [place] [address] [place] Lactate [Moles/Vol] 1.5 mmol/L Normal 0.5-2.2 [facility] Comment on above: Order Comment: Speci men Type: VENOUS BLOOD SPECIMENOrdering Facility: [facility] Address: [address] [place] [address] Performed By: #### 2 4344-4 ####[facility] [id number] [address] [address] [place] LITERS 2 Liters/min Normal [facility] Comment on above: Order Comment: Speci men Type: VENOUS BLOOD SPECIMENOrdering Facility: [facility] Address: [address] [place] [address] Performed By: #### 2 4344-4 ####[facility] [id number] [place] [address] [place] Methemoglobin (Bld) [Mass fraction] 1.3 % Normal 0.0-1.5 [facility] Comment on above: Order Comment: Speci men Type: VENOUS BLOOD SPECIMENOrdering Facility: [facility] Address: [address] [place] [address] Performed By: #### 2 4344-4 ####[facility] [id number] [place] [address] [place] O2 THERAPY NC = Nasal Cannula Normal [facility] Comment on above: Order Comment: Speci men Type: VENOUS BLOOD SPECIMENOrdering Facility: [facility] Address: [address] [place], [place] [address] Performed By: #### 2 4344-4 ####[facility] [id number] [place] [id number] [place] Oxygen (BldV) [Partial pressure] 83 mm[Hg] High 35-45 [facility] Comment on above: Order Comment: Speci men Type: VENOUS BLOOD SPECIMENOrdering Facility: [facility] Address: [address] [place], [place] [address] Performed By: #### 2 4344-4 ####[facility] [id number] [address] [address] [place] Oxygen adjusted to patient's actual temperature (BldV) [Partial pressure] 85 mmHg High 35-45 [facility] Comment on above: Order Comment: Speci men Type: VENOUS BLOOD SPECIMENOrdering Facility: [facility] Address: [address] [place], [place] [address] Performed By: #### 2 4344-4 ####[facility] [id number] [place] [id number] [place] Oxygen saturation in Venous blood 97 % High 60-85 [facility] Comment on above: Order Comment: Speci men Type: VENOUS BLOOD SPECIMENOrdering Facility: [facility] Address: [address] [place], [place] [address] Performed By: #### 2 4344-4 ####[facility] [id number] [place] [address] [place] Oxyhemoglobin (BldV) [Mass fraction] 95 % High 60-85 [facility] Comment on above: Order Comment: Speci men Type: VENOUS BLOOD SPECIMENOrdering Facility: [facility] Address: [address] [place], [place] [address] Performed By: #### 2 4344-4 ####[facility] [id number] [place] [id number] [place] pH (BldV) 7.54 [pH] High 7.32-7.42 [facility] Comment on above: Order Comment: Speci men Type: VENOUS BLOOD SPECIMENOrdering Facility: [facility] Address: [address] [place] [address] Performed By: #### 2 4344-4 ####[facility] [id number] [place] [id number] [place] pH adjusted to patient's actual temperature (BldV) 7.54 High 7.32-7.42 [facility] Comment on above: Order Comment: Speci men Type: VENOUS BLOOD SPECIMENOrdering Facility: [facility] Address: [address] [place] [address] Performed By: #### 2 4344-4 ####[facility] [id number] [place] [address] [place] Potassium [Moles/Vol] 3.5 mmol/L Normal 3.5-5.0 [facility] Comment on above: Order Comment: Speci men Type: VENOUS BLOOD SPECIMENOrdering Facility: [facility] Address: [address] [place] [address] Performed By: #### 2 4344-4 ####[facility] LABIA [id number] [place] [address] [place] Sodium [Moles/Vol] 139 mmol/L Normal 136-144 [facility] Comment on above: Order Comment: Speci men Type: VENOUS BLOOD SPECIMENOrdering Facility: [facility] Address: [address] [place] [address] Performed By: #### 2 4344-4 ####[facility] [id number] [place] [address] [place] Magnesium SerPl-mCncon 09-06 Magnesium [Mass/Vol] 2.3 mg/dL Normal 1.7-2.3 [facility] Comment on above: Order Comment: Speci men Type: BLOOD SPECIMENOrdering Facility: [facility] Address: [address] [place] [address] Performed By: #### 2 4321-2, 52723-8 ####[facility] [id number] [place] [address] [place] Gas and Carbon monoxide pane l (BldV)on 09-05-2024 Base excess Calc (BldV) [Moles/Vol] 8 mmol/L High 0-2 [facility] Comment on above: Order Comment: Speci men Type: VENOUS BLOOD SPECIMENOrdering Facility: [facility] Address: [address] [place] [address] Performed By: #### 2 4344-4 ####[facility] [id number] [place] [address] [place] Body temperature 98.6 [degF] Normal [facility] Comment on above: Order Comment: Speci men Type: VENOUS BLOOD SPECIMENOrdering Facility: [facility] Address: [address] [place] [address] Performed By: #### 2 4344-4 ####[facility] [id number] [place] [address] [place] Calcium.ionized (Bld) [Mass/Vol] 1.19 mmol/L Normal 1.08-1.30 [facility] Comment on above: Order Comment: Speci men Type: VENOUS BLOOD SPECIMENOrdering Facility: [facility] Address: [address] [place] [address] Performed By: #### 2 4344-4 ####[facility] [id number] [place] [address] [place] Calcium.ionized adjusted to pH 7.4 (BldA) [Moles/Vol] 1.22 mmol/L Normal 1.08-1.30 [facility] Comment on above: Order Comment: Speci men Type: VENOUS BLOOD SPECIMENOrdering Facility: [facility] Address: [address] [place] [address] Performed By: #### 2 4344-4 ####[facility] [id number] [place] [address] [place] Carboxyhemoglobin (BldV) [Mass fraction] 1.0 % Normal 0.0-2.0 [facility] Comment on above: Order Comment: Speci men Type: VENOUS BLOOD SPECIMENOrdering Facility: [facility] Address: [address] [place] [address] Result Comment: Carb oxyhemoglobin Reference Range for Smokers: 2.0-8.0% Performed By: #### 2 4344-4 ####[facility] [id number] [place] [address] [place] CO2 (BldV) [Partial pressure] 47 mm[Hg] Normal 42-55 [facility] Comment on above: Order Comment: Speci men Type: VENOUS BLOOD SPECIMENOrdering Facility: [facility] Address: [address] [place] [address] Performed By: #### 2 4344-4 ####[facility] [id number] [place] [address] [place] Glucose [Mass/Vol] 141 mg/dL High 60-105 [facility] Comment on above: Order Comment: Speci men Type: VENOUS BLOOD SPECIMENOrdering Facility: [facility] Address: [address] [place] [address] Performed By: #### 2 4344-4 ####[facility] [id number] [place] [address] [place] HCO3 (Bld) [Moles/Vol] 33 mmol/L High 24-28 [facility] Comment on above: Order Comment: Speci men Type: VENOUS BLOOD SPECIMENOrdering Facility: [facility] Address: [address] [place] [address] Performed By: #### 2 4344-4 ####[facility] [id number] [place] [address] [place] Hematocrit (Bld) [Volume fraction] 39.1 % Normal 36.0-46.0 [facility] Comment on above: Order Comment: Speci men Type: VENOUS BLOOD SPECIMENOrdering Facility: [facility] Address: [address] [place] [address] Performed By: #### 2 4344-4 ####[facility] [id number] [place] [address] [place] Hemoglobin (Bld) [Mass/Vol] 12.7 g/dL Normal 11.5-15.5 [facility] Comment on above: Order Comment: Speci men Type: VENOUS BLOOD SPECIMENOrdering Facility: [facility] Address: [address] [place] [address] Performed By: #### 2 4344-4 ####[facility] [id number] [place] [address] [place] Lactate [Moles/Vol] 2.8 mmol/L High 0.5-2.2 [facility] Comment on above: Order Comment: Speci men Type: VENOUS BLOOD SPECIMENOrdering Facility: [facility] Address: [address] [place] [address] Performed By: #### 2 4344-4 ####[facility] [id number] [place] [address] [place] Methemoglobin (Bld) [Mass fraction] 1.2 % Normal 0.0-1.5 [facility] Comment on above: Order Comment: Speci men Type: VENOUS BLOOD SPECIMENOrdering Facility: [facility] Address: [address] [place] [address] Performed By: #### 2 4344-4 ####[facility] [id number] [place] [address] [place] O2 THERAPY NR=Non-Rebreather Mask Normal [facility] Comment on above: Order Comment: Speci men Type: VENOUS BLOOD SPECIMENOrdering Facility: [facility] Address: [address] [place] [address] Performed By: #### 2 4344-4 ####[facility] [id number] [place] [address] [place] Oxygen (BldV) [Partial pressure] 148 mm[Hg] High 35-45 [facility] Comment on above: Order Comment: Speci men Type: VENOUS BLOOD SPECIMENOrdering Facility: [facility] Address: [address] [place] [address] Performed By: #### 2 4344-4 ####[facility]CL[facility] [id number] [address] [address] [place] Oxygen saturation in Venous blood 100 % High 60-85 [facility] Comment on above: Order Comment: Speci men Type: VENOUS BLOOD SPECIMENOrdering Facility: [facility] Address: [address] [place] [address] Performed By: #### 2 4344-4 ####[facility] [id number] [place] [address] [place] Oxyhemoglobin (BldV) [Mass fraction] 97 % High 60-85 [facility] Comment on above: Order Comment: Speci men Type: VENOUS BLOOD SPECIMENOrdering Facility: [facility] Address: [address] [place] [address] Performed By: #### 2 4344-4 ####[facility]IA [id number] [place] [address] [place] pH (BldV) 7.45 [pH] High 7.32-7.42 [facility] Comment on above: Order Comment: Speci men Type: VENOUS BLOOD SPECIMENOrdering Facility: [facility] Address: [address] [place] [address] Performed By: #### 2 4344-4 ####[facility]CL[facility] [id number] [place] [address] [place] Potassium [Moles/Vol] 4.3 mmol/L Normal 3.5-5.0 [facility] Comment on above: Order Comment: Speci men Type: VENOUS BLOOD SPECIMENOrdering Facility: [facility] Address: [address] [place], [place] [address] Performed By: #### 2 4344-4 ####[facility]IA [id number] [place] [address] [place] Sodium [Moles/Vol] 140 mmol/L Normal 136-144 [facility] Comment on above: Order Comment: Speci men Type: VENOUS BLOOD SPECIMENOrdering Facility: [facility] Address: [address] [place] [address] Performed By: #### 2 4344-4 ####[facility] [id number] [place] [address] [place] Base excess Calc (BldV) [Moles/Vol] 10 mmol/L High 0-2 [facility] Comment on above: Order Comment: Speci men Type: VENOUS BLOOD SPECIMENOrdering Facility: [facility] Address: [address] [place] [address] Performed By: #### 2 4344-4 ####[facility] [id number] [place] [address] [place] Body temperature 99.68 [degF] Normal [facility] Comment on above: Order Comment: Speci men Type: VENOUS BLOOD SPECIMENOrdering Facility: [facility] Address: [address] [place] [address] Performed By: #### 2 4344-4 ####[facility]IA [id number] [place] [address] [place] Calcium.ionized (Bld) [Mass/Vol] 1.21 mmol/L Normal 1.08-1.30 [facility] Comment on above: Order Comment: Speci men Type: VENOUS BLOOD SPECIMENOrdering Facility: [facility] Address: [address] [place] [address] Performed By: #### 2 4344-4 ####[facility] [id number] [place] [address] [place] Calcium.ionized adjusted to pH 7.4 (BldA) [Moles/Vol] 1.22 mmol/L Normal 1.08-1.30 [facility] Comment on above: Order Comment: Speci men Type: VENOUS BLOOD SPECIMENOrdering Facility: [facility] Address: [address] [place] [id number] Performed By: #### 2 4344-4 ####[facility] [id number] [address] [address] [place] Carboxyhemoglobin (BldV) [Mass fraction] 0.7 % Normal 0.0-2.0 [facility] Comment on above: Order Comment: Speci men Type: VENOUS BLOOD SPECIMENOrdering Facility: [facility] Address: [address] [place] [id number] Result Comment: Carb oxyhemoglobin Reference Range for Smokers: 2.0-8.0% Performed By: #### 2 4344-4 ####[facility] [id number] [address] [address] [place] CO2 (BldV) [Partial pressure] 54 mm[Hg] Normal 42-55 [facility] Comment on above: Order Comment: Speci men Type: VENOUS BLOOD SPECIMENOrdering Facility: [facility] Address: [address] [place], [place] [address] Performed By: #### 2 4344-4 ####[facility]CL[facility] [id number] [place] [id number] [place] CO2 adjusted to patient's actual temperature (BldV) [Partial pressure] 56 mmHg High 42-55 [facility] Comment on above: Order Comment: Speci men Type: VENOUS BLOOD SPECIMENOrdering Facility: [facility] Address: [address] [place], [place] [address] Performed By: #### 2 4344-4 ####[facility] [id number] [place] [id number] [place] FIO2 45 % Normal [facility] Comment on above: Order Comment: Speci men Type: VENOUS BLOOD SPECIMENOrdering Facility: [facility] Address: [address] [place] [place] [id number] Performed By: #### 2 4344-4 ####[facility] [id number] [place] [address] [place] Glucose [Mass/Vol] 128 mg/dL High 60-105 [facility] Comment on above: Order Comment: Speci men Type: VENOUS BLOOD SPECIMENOrdering Facility: [facility] Address: [address] [place] [address] Performed By: #### 2 4344-4 ####[facility] [id number] [place] [address] [place] HCO3 (Bld) [Moles/Vol] 35 mmol/L High 24-28 [facility] Comment on above: Order Comment: Speci men Type: VENOUS BLOOD SPECIMENOrdering Facility: [facility] Address: [address] [place] [address] Performed By: #### 2 4344-4 ####[facility] [id number] [place] [address] [place] Hematocrit (Bld) [Volume fraction] 33.8 % Low 36.0-46.0 [facility] Comment on above: Order Comment: Speci men Type: VENOUS BLOOD SPECIMENOrdering Facility: [facility] Address: [address] [place] [address] Performed By: #### 2 4344-4 ####[facility]CL[facility] [id number] [place] [address] [place] Hemoglobin (Bld) [Mass/Vol] 10.9 g/dL Low 11.5-15.5 [facility] Comment on above: Order Comment: Speci men Type: VENOUS BLOOD SPECIMENOrdering Facility: [facility] Address: [address] [place] [address] Performed By: #### 2 4344-4 ####[facility]CL[facility] [id number] [place] [address] [place] Lactate [Moles/Vol] 1.6 mmol/L Normal 0.5-2.2 [facility] Comment on above: Order Comment: Speci men Type: VENOUS BLOOD SPECIMENOrdering Facility: [facility] Address: [address] [place] [address] Performed By: #### 2 4344-4 ####[facility]CL[facility] [id number] [address] [address] [place] Methemoglobin (Bld) [Mass fraction] 0.6 % Normal 0.0-1.5 [facility] Comment on above: Order Comment: Speci men Type: VENOUS BLOOD SPECIMENOrdering Facility: [facility] Address: [address] [place] [address] Performed By: #### 2 4344-4 ####[facility]CL[facility] [id number] [place] [address] [place] O2 THERAPY VENT=Ventilator Normal [facility] Comment on above: Order Comment: Speci men Type: VENOUS BLOOD SPECIMENOrdering Facility: [facility] Address: [address] [place] [address] Performed By: #### 2 4344-4 ####[facility]CL[facility] [id number] [place] [address] [place] Oxygen (BldV) [Partial pressure] 65 mm[Hg] High 35-45 [facility] Comment on above: Order Comment: Speci men Type: VENOUS BLOOD SPECIMENOrdering Facility: [facility] Address: [address] [place] [address] Performed By: #### 2 4344-4 ####[facility]CL[facility] [id number] [place] [address] [place] Oxygen adjusted to patient's actual temperature (BldV) [Partial pressure] 68 mmHg High 35-45 [facility] Comment on above: Order Comment: Speci men Type: VENOUS BLOOD SPECIMENOrdering Facility: [facility] Address: [address] [place] [address] Performed By: #### 2 4344-4 ####[facility]CL[facility] [id number] [address] [address] [place] Oxygen saturation in Venous blood 94 % High 60-85 [facility] Comment on above: Order Comment: Speci men Type: VENOUS BLOOD SPECIMENOrdering Facility: [facility] Address: [address] [place] [address] Performed By: #### 2 4344-4 ####[facility]CL[facility] [id number] [address] [address] [place] Oxyhemoglobin (BldV) [Mass fraction] 92 % High 60-85 [facility] Comment on above: Order Comment: Speci men Type: VENOUS BLOOD SPECIMENOrdering Facility: [facility] Address: [address] [place] [address] Performed By: #### 2 4344-4 ####[facility]CL[facility] [id number] [place] [address] [place] pH (BldV) 7.43 [pH] High 7.32-7.42 [facility] Comment on above: Order Comment: Speci men Type: VENOUS BLOOD SPECIMENOrdering Facility: [facility] Address: [address] [place] [address] Performed By: #### 2 4344-4 ####[facility]CL[facility] [id number] [place] [address] [place] pH adjusted to patient's actual temperature (BldV) 7.42 Normal 7.32-7.42 [facility] Comment on above: Order Comment: Speci men Type: VENOUS BLOOD SPECIMENOrdering Facility: [facility] Address: [address] [place] [address] Performed By: #### 2 4344-4 ####[facility]CL[facility] [id number] [place] [id number] [place] Potassium [Moles/Vol] 3.6 mmol/L Normal 3.5-5.0 [facility] Comment on above: Order Comment: Speci men Type: VENOUS BLOOD SPECIMENOrdering Facility: [facility] Address: [address] [place] [address] Performed By: #### 2 4344-4 ####[facility]CL[facility] [id number] [place] [address] [place] Sodium [Moles/Vol] 143 mmol/L Normal 136-144 [facility] Comment on above: Order Comment: Speci men Type: VENOUS BLOOD SPECIMENOrdering Facility: [facility] Address: [address] [place] [address] Performed By: #### 2 4344-4 ####[facility]CL[facility] [id number] [place] [address] [place] Base excess Calc (BldV) [Moles/Vol] 9 mmol/L High 0-2 [facility] Comment on above: Order Comment: Speci men Type: VENOUS BLOOD SPECIMENOrdering Facility: [facility] Address: [address] [place] [address] Performed By: #### 2 4344-4 ####[facility]CL[facility] [id number] [place] [address] [place] Body temperature 99.14 [degF] Normal [facility] Comment on above: Order Comment: Speci men Type: VENOUS BLOOD SPECIMENOrdering Facility: [facility] Address: [address] [place] [address] Performed By: #### 2 4344-4 ####[facility]CL[facility] [id number] [place] [address] [place] Calcium.ionized (Bld) [Mass/Vol] 1.22 mmol/L Normal 1.08-1.30 [facility] Comment on above: Order Comment: Speci men Type: VENOUS BLOOD SPECIMENOrdering Facility: [facility] Address: [address] [place] [address] Performed By: #### 2 4344-4 ####[facility]CL[facility] [id number] [place] [address] [place] Calcium.ionized adjusted to pH 7.4 (BldA) [Moles/Vol] 1.22 mmol/L Normal 1.08-1.30 [facility] Comment on above: Order Comment: Speci men Type: VENOUS BLOOD SPECIMENOrdering Facility: [facility] Address: [address] [place] [address] Performed By: #### 2 4344-4 ####[facility]CL[facility] [id number] [place] [address] [place] Carboxyhemoglobin (BldV) [Mass fraction] 0.5 % Normal 0.0-2.0 [facility] Comment on above: Order Comment: Speci men Type: VENOUS BLOOD SPECIMENOrdering Facility: [facility] Address: [address] [place] [address] Result Comment: Carb oxyhemoglobin Reference Range for Smokers: 2.0-8.0% Performed By: #### 2 4344-4 ####[facility]CL[facility] [id number] [place] [address] [place] CO2 (BldV) [Partial pressure] 56 mm[Hg] High 42-55 [facility] Comment on above: Order Comment: Speci men Type: VENOUS BLOOD SPECIMENOrdering Facility: [facility] Address: [address] [place] [address] Performed By: #### 2 4344-4 ####[facility]CL[facility] [id number] [place] [address] [place] CO2 adjusted to patient's actual temperature (BldV) [Partial pressure] 57 mmHg High 42-55 [facility] Comment on above: Order Comment: Speci men Type: VENOUS BLOOD SPECIMENOrdering Facility: [facility] Address: [address] [place] [address] Performed By: #### 2 4344-4 ####[facility]CL[facility] [id number] [place] [address] [place] FIO2 45 % Normal [facility] Comment on above: Order Comment: Speci men Type: VENOUS BLOOD SPECIMENOrdering Facility: [facility] Address: [address] [place] [address] Performed By: #### 2 4344-4 ####[facility]CL[facility] [id number] [place] [address] [place] Glucose [Mass/Vol] 127 mg/dL High 60-105 [facility] Comment on above: Order Comment: Speci men Type: VENOUS BLOOD SPECIMENOrdering Facility: [facility] Address: [address] [place] [address] Performed By: #### 2 4344-4 ####[facility]CL[facility] [id number] [place] [address] [place] HCO3 (Bld) [Moles/Vol] 35 mmol/L High 24-28 [facility] Comment on above: Order Comment: Speci men Type: VENOUS BLOOD SPECIMENOrdering Facility: [facility] Address: [address] [place] [address] Performed By: #### 2 4344-4 ####[facility]CL[facility] [id number] [place] [address] [place] Hematocrit (Bld) [Volume fraction] 32.6 % Low 36.0-46.0 [facility] Comment on above: Order Comment: Speci men Type: VENOUS BLOOD SPECIMENOrdering Facility: [facility] Address: [address] [place], [place] [address] Performed By: #### 2 4344-4 ####[facility]CL[facility] [id number] [place] [address] [place] Hemoglobin (Bld) [Mass/Vol] 10.5 g/dL Low 11.5-15.5 [facility] Comment on above: Order Comment: Speci men Type: VENOUS BLOOD SPECIMENOrdering Facility: [facility] Address: [address] [place] [address] Performed By: #### 2 4344-4 ####[facility]IA [id number] [address] [address] [place] Lactate [Moles/Vol] 1.3 mmol/L Normal 0.5-2.2 [facility] Comment on above: Order Comment: Speci men Type: VENOUS BLOOD SPECIMENOrdering Facility: [facility] Address: [address] [place] [address] Performed By: #### 2 4344-4 ####[facility] [id number] [place] [address] [place] Methemoglobin (Bld) [Mass fraction] 1.3 % Normal 0.0-1.5 [facility] Comment on above: Order Comment: Speci men Type: VENOUS BLOOD SPECIMENOrdering Facility: [facility] Address: [address] [place] [address] Performed By: #### 2 4344-4 ####[facility] [id number] [place] [address] [place] O2 THERAPY VENT=Ventilator Normal [facility] Comment on above: Order Comment: Speci men Type: VENOUS BLOOD SPECIMENOrdering Facility: [facility] Address: [address] [place] [address] Performed By: #### 2 4344-4 ####[facility]CL[facility] [id number] [place] [address] [place] Oxygen (BldV) [Partial pressure] 95 mm[Hg] High 35-45 [facility] Comment on above: Order Comment: Speci men Type: VENOUS BLOOD SPECIMENOrdering Facility: [facility] Address: [address] [place], [place] [address] Performed By: #### 2 4344-4 ####[facility]CL[facility] [id number] [place] [id number] [place] Oxygen adjusted to patient's actual temperature (BldV) [Partial pressure] 97 mmHg High 35-45 [facility] Comment on above: Order Comment: Speci men Type: VENOUS BLOOD SPECIMENOrdering Facility: [facility] Address: [address] [place], [place] [address] Performed By: #### 2 4344-4 ####[facility]CL[facility] [id number] [place] [address] [place] Oxygen saturation in Venous blood 97 % High 60-85 [facility] Comment on above: Order Comment: Speci men Type: VENOUS BLOOD SPECIMENOrdering Facility: [facility] Address: [address] [place], [place] [address] Performed By: #### 2 4344-4 ####[facility] [id number] [place] [address] [place] Oxyhemoglobin (BldV) [Mass fraction] 96 % High 60-85 [facility] Comment on above: Order Comment: Speci men Type: VENOUS BLOOD SPECIMENOrdering Facility: [facility] Address: [address] [place], [place] [address] Performed By: #### 2 4344-4 ####[facility] [id number] [place] [id number] [place] pH (BldV) 7.41 [pH] Normal 7.32-7.42 [facility] Comment on above: Order Comment: Speci men Type: VENOUS BLOOD SPECIMENOrdering Facility: [facility] Address: [address] [place] [address] Performed By: #### 2 4344-4 ####[facility] [id number] [place] [id number] [place] pH adjusted to patient's actual temperature (BldV) 7.40 Normal 7.32-7.42 [facility] Comment on above: Order Comment: Speci men Type: VENOUS BLOOD SPECIMENOrdering Facility: [facility] Address: [address] [place] [id number] Performed By: #### 2 4344-4 ####[facility] [id number] [address] [address] [place] Potassium [Moles/Vol] 3.8 mmol/L Normal 3.5-5.0 [facility] Comment on above: Order Comment: Speci men Type: VENOUS BLOOD SPECIMENOrdering Facility: [facility] Address: [address] [place], [place] [address] Performed By: #### 2 4344-4 ####[facility]CL[facility] [id number] [place] [address] [place] Sodium [Moles/Vol] 140 mmol/L Normal 136-144 [facility] Comment on above: Order Comment: Speci men Type: VENOUS BLOOD SPECIMENOrdering Facility: [facility] Address: [address] [place] [address] Performed By: #### 2 4344-4 ####[facility]CL[facility] [id number] [place] [address] [place] Base excess Calc (BldV) [Moles/Vol] 9 mmol/L High 0-2 [facility] Comment on above: Order Comment: Speci men Type: VENOUS BLOOD SPECIMENOrdering Facility: [facility] Address: [address] [place], [place] [address] Performed By: #### 2 4344-4 ####[facility] [id number] [place] [id number] [place] Body temperature 99.32 [degF] Normal [facility] Comment on above: Order Comment: Speci men Type: VENOUS BLOOD SPECIMENOrdering Facility: [facility] Address: [address] [place], [place] [address] Performed By: #### 2 4344-4 ####[facility] [id number] [place] [address] [place] Calcium.ionized (Bld) [Mass/Vol] 1.22 mmol/L Normal 1.08-1.30 [facility] Comment on above: Order Comment: Speci men Type: VENOUS BLOOD SPECIMENOrdering Facility: [facility] Address: [address] [place] [address] Performed By: #### 2 4344-4 ####[facility] [id number] [place] [address] [place] Calcium.ionized adjusted to pH 7.4 (BldA) [Moles/Vol] 1.23 mmol/L Normal 1.08-1.30 [facility] Comment on above: Order Comment: Speci men Type: VENOUS BLOOD SPECIMENOrdering Facility: [facility] Address: [address] [place] [address] Performed By: #### 2 4344-4 ####[facility] [id number] [place] [address] [place] Carboxyhemoglobin (BldV) [Mass fraction] 1.0 % Normal 0.0-2.0 [facility] Comment on above: Order Comment: Speci men Type: VENOUS BLOOD SPECIMENOrdering Facility: [facility] Address: [address] [place] [address] Result Comment: Carb oxyhemoglobin Reference Range for Smokers: 2.0-8.0% Performed By: #### 2 4344-4 ####[facility] [id number] [place] [address] [place] CO2 (BldV) [Partial pressure] 57 mm[Hg] High 42-55 [facility] Comment on above: Order Comment: Speci men Type: VENOUS BLOOD SPECIMENOrdering Facility: [facility] Address: [address] [place] [address] Performed By: #### 2 4344-4 ####[facility] [id number] [place] [address] [place] CO2 adjusted to patient's actual temperature (BldV) [Partial pressure] 58 mmHg High 42-55 [facility] Comment on above: Order Comment: Speci men Type: VENOUS BLOOD SPECIMENOrdering Facility: [facility] Address: [address] [place] [address] Performed By: #### 2 4344-4 ####[facility] [id number] [place] [address] [place] FIO2 45 % Normal [facility] Comment on above: Order Comment: Speci men Type: VENOUS BLOOD SPECIMENOrdering Facility: [facility] Address: [address] [place] [address] Performed By: #### 2 4344-4 ####[facility] [id number] [place] [address] [place] Glucose [Mass/Vol] 128 mg/dL High 60-105 [facility] Comment on above: Order Comment: Speci men Type: VENOUS BLOOD SPECIMENOrdering Facility: [facility] Address: [address] [place] [address] Performed By: #### 2 4344-4 ####[facility] [id number] [place] [address] [place] HCO3 (Bld) [Moles/Vol] 35 mmol/L High 24-28 [facility] Comment on above: Order Comment: Speci men Type: VENOUS BLOOD SPECIMENOrdering Facility: [facility] Address: [address] [place] [address] Performed By: #### 2 4344-4 ####[facility] [id number] [place] [address] [place] Hematocrit (Bld) [Volume fraction] 32.9 % Low 36.0-46.0 [facility] Comment on above: Order Comment: Speci men Type: VENOUS BLOOD SPECIMENOrdering Facility: [facility] Address: [address] [place] [address] Performed By: #### 2 4344-4 ####[facility] [id number] [place] [address] [place] Hemoglobin (Bld) [Mass/Vol] 10.7 g/dL Low 11.5-15.5 [facility] Comment on above: Order Comment: Speci men Type: VENOUS BLOOD SPECIMENOrdering Facility: [facility] Address: [address] [place] [address] Performed By: #### 2 4344-4 ####[facility]CLIA [id number] [place] [address] [place] Lactate [Moles/Vol] 1.2 mmol/L Normal 0.5-2.2 [facility] Comment on above: Order Comment: Speci men Type: VENOUS BLOOD SPECIMENOrdering Facility: [facility] Address: [address] [place] [address] Performed By: #### 2 4344-4 ####[facility] LABIA [id number] [place] [address] [place] Methemoglobin (Bld) [Mass fraction] 0.7 % Normal 0.0-1.5 [facility] Comment on above: Order Comment: Speci men Type: VENOUS BLOOD SPECIMENOrdering Facility: [facility] Address: [address] [place] [address] Performed By: #### 2 4344-4 ####[facility] LABCLIA [id number] [place] [address] [place] O2 THERAPY VENT=Ventilator Normal [facility] Comment on above: Order Comment: Speci men Type: VENOUS BLOOD SPECIMENOrdering Facility: [facility] Address: [address] [place] [address] Performed By: #### 2 4344-4 ####[facility]CL[facility] [id number] [id number] [address] [place] Oxygen (BldV) [Partial pressure] 86 mm[Hg] High 35-45 [facility] Comment on above: Order Comment: Speci men Type: VENOUS BLOOD SPECIMENOrdering Facility: [facility] Address: [address] [place], [place] [address] Performed By: #### 2 4344-4 ####[facility]CL[facility] [id number] [address] [address] [place] Oxygen adjusted to patient's actual temperature (BldV) [Partial pressure] 89 mmHg High 35-45 [facility] Comment on above: Order Comment: Speci men Type: VENOUS BLOOD SPECIMENOrdering Facility: [facility] Address: [address] [place] [address] Performed By: #### 2 4344-4 ####[facility]CL[facility] [id number] [place] [address] [place] Oxygen saturation in Venous blood 97 % High 60-85 [facility] Comment on above: Order Comment: Speci men Type: VENOUS BLOOD SPECIMENOrdering Facility: [facility] Address: [address] [place] [address] Performed By: #### 2 4344-4 ####[facility]CL[facility] [id number] [address] [address] [place] Oxyhemoglobin (BldV) [Mass fraction] 96 % High 60-85 [facility] Comment on above: Order Comment: Speci men Type: VENOUS BLOOD SPECIMENOrdering Facility: [facility] Address: [address] [place], [place] [address] Performed By: #### 2 4344-4 ####[facility] LABCLIA [id number] [place] [id number] [place] pH (BldV) 7.40 [pH] Normal 7.32-7.42 [facility] Comment on above: Order Comment: Speci men Type: VENOUS BLOOD SPECIMENOrdering Facility: [facility] Address: [address] [place] [address] Performed By: #### 2 4344-4 ####[facility] LABIA [id number] [place] [address] [place] pH adjusted to patient's actual temperature (BldV) 7.40 Normal 7.32-7.42 [facility] Comment on above: Order Comment: Speci men Type: VENOUS BLOOD SPECIMENOrdering Facility: [facility] Address: [address] [place] [address] Performed By: #### 2 4344-4 ####[facility] LABIA [id number] [place] [address] [place] Potassium [Moles/Vol] 3.9 mmol/L Normal 3.5-5.0 [facility] Comment on above: Order Comment: Speci men Type: VENOUS BLOOD SPECIMENOrdering Facility: [facility] Address: [address] [place] [address] Performed By: #### 2 4344-4 ####[facility] [id number] [place] [address] [place] Sodium [Moles/Vol] 141 mmol/L Normal 136-144 [facility] Comment on above: Order Comment: Speci men Type: VENOUS BLOOD SPECIMENOrdering Facility: [facility] Address: [address] [place] [address] Performed By: #### 2 4344-4 ####[facility] [id number] [place] [address] [place] Prolactin SerPl-mCncon 09-05 Prolactin [Mass/Vol] 21.6 ng/mL Normal 4.4-33.8 [facility] Comment on above: Order Comment: Speci men Type: BLOOD SPECIMENOrdering Facility: [facility] Address: [address] [place] [address] Result Comment: Prol actin test is performed using the [employer] Electrochemiluminescence Immunoassay method. Results obtained with different methods or kits cannot be used interchangeably. Performed By: #### 2 842-3 ####[facility]CL[facility] [id number] [place] [address] [place] Theophylline SerPl-mCncon Theophylline [Mass/Vol] 9.3 ug/mL Low 10.0-20.0 [facility] Comment on above: Order Comment: Speci men Type: BLOOD SPECIMENOrdering Facility: [facility] Address: [address] [place] [address] Result Comment: Refe rence ranges and high/low indicator flags are provided as general guidelines only. The treating physician must determine appropriate target levels/dosing based on the specific clinical situation. Performed By: #### 4 049-3 ####[facility] LABCL[facility] [id number] [place] [address] [place] ARTERIAL BLOOD GASESon 09-04 Base excess Calc (Bld) [Moles/Vol] 9 mmol/L High 0-2 [facility] Comment on above: Order Comment: Speci men Type: ARTERIAL BLOOD SPECIMENOrdering Facility: [facility] Address: [address] [place] [address] Performed By: #### A LLBG ####[facility] LABIA [id number] [place] [address] [place] Body temperature 98.96 [degF] Normal [facility] Comment on above: Order Comment: Speci men Type: ARTERIAL BLOOD SPECIMENOrdering Facility: [facility] Address: [address] [place] [address] Performed By: #### A LLBG ####[facility] LABIA [id number] [place] [address] [place] Calcium.ionized (Bld) [Mass/Vol] 1.23 mmol/L Normal 1.08-1.30 [facility] Comment on above: Order Comment: Speci men Type: ARTERIAL BLOOD SPECIMENOrdering Facility: [facility] Address: [address] [place] [address] Performed By: #### A LLBG ####[facility] LABIA [id number] [place] [address] [place] Calcium.ionized adjusted to pH 7.4 (BldA) [Moles/Vol] 1.18 mmol/L Normal 1.08-1.30 [facility] Comment on above: Order Comment: Speci men Type: ARTERIAL BLOOD SPECIMENOrdering Facility: [facility] Address: [address] [place] [address] Performed By: #### A LLBG ####[facility] [id number] [place] [address] [place] Carboxyhemoglobin (BldA) [Mass fraction] 1.0 % Normal 0.0-2.0 [facility] Comment on above: Order Comment: Speci men Type: ARTERIAL BLOOD SPECIMENOrdering Facility: [facility] Address: [address] [place] [address] Result Comment: Carb oxyhemoglobin Reference Range for Smokers: 2.0-8.0% Performed By: #### A LLBG ####[facility] LABIA [id number] [place] [address] [place] CO2 (Bld) [Partial pressure] 71 mm Hg High 36-46 [facility] Comment on above: Order Comment: Speci men Type: ARTERIAL BLOOD SPECIMENOrdering Facility: [facility] Address: [address] [place] [address] Performed By: #### A LLBG ####[facility] LABIA [id number] [place] [address] [place] CO2 adjusted to patient's actual temperature (Bld) [Partial pressure] 71 mmHg High 36-46 [facility] Comment on above: Order Comment: Speci men Type: ARTERIAL BLOOD SPECIMENOrdering Facility: [facility] Address: [address] [place] [address] Performed By: #### A LLBG ####[facility]CL[facility] [id number] [place] [address] [place] FIO2 45 % Normal [facility] Comment on above: Order Comment: Speci men Type: ARTERIAL BLOOD SPECIMENOrdering Facility: [facility] Address: [address] [place] [address] Performed By: #### A LLBG ####[facility] LABCLIA [id number] [place] [address] [place] Glucose [Mass/Vol] 150 mg/dL High 60-105 [facility] Comment on above: Order Comment: Speci men Type: ARTERIAL BLOOD SPECIMENOrdering Facility: [facility] Address: [address] [place] [address] Performed By: #### A LLBG ####[facility] LABCLIA [id number] [place] [address] [place] HCO3 (Bld) [Moles/Vol] 36 mmol/L High 22-26 [facility] Comment on above: Order Comment: Speci men Type: ARTERIAL BLOOD SPECIMENOrdering Facility: [facility] Address: [address] [place] [address] Performed By: #### A LLBG ####[facility] LABCLIA [id number] [place] [address] [place] Hematocrit (Bld) [Volume fraction] 34.3 % Low 36.0-46.0 [facility] Comment on above: Order Comment: Speci men Type: ARTERIAL BLOOD SPECIMENOrdering Facility: [facility] Address: [address] [place] [address] Performed By: #### A LLBG ####[facility] LABCLIA [id number] [place] [address] [place] Hemoglobin (Bld) [Mass/Vol] 11.1 g/dL Low 11.5-15.5 [facility] Comment on above: Order Comment: Speci men Type: ARTERIAL BLOOD SPECIMENOrdering Facility: [facility] Address: [address] [place] [place] [id number] Performed By: #### A LLBG ####[facility] LABIA [id number] [place] [id number] [place] Lactate [Moles/Vol] 1.7 mmol/L Normal 0.5-2.2 [facility] Comment on above: Order Comment: Speci men Type: ARTERIAL BLOOD SPECIMENOrdering Facility: [facility] Address: [address] [place] [address] Performed By: #### A LLBG ####[facility] LABIA [id number] [place] [address] [place] Methemoglobin (Bld) [Mass fraction] 1.0 % Normal 0.0-1.5 [facility] Comment on above: Order Comment: Speci men Type: ARTERIAL BLOOD SPECIMENOrdering Facility: [facility] Address: [address] [place] [address] Performed By: #### A LLBG ####[facility] LABIA [id number] [place] [address] [place] O2 THERAPY VENT=Ventilator Normal [facility] Comment on above: Order Comment: Speci men Type: ARTERIAL BLOOD SPECIMENOrdering Facility: [facility] Address: [address] [place], [place] [id number] Performed By: #### A LLBG ####[facility] LABCLIA [id number] [place] [id number] [place] Oxygen (Bld) [Partial pressure] 76 mm Hg Low 85-95 [facility] Comment on above: Order Comment: Speci men Type: ARTERIAL BLOOD SPECIMENOrdering Facility: [facility] Address: [address] [place], [place] [id number] Performed By: #### A LLBG ####[facility] LABIA [id number] [place] [id number] [place] Oxygen adjusted to patient's actual temperature (Bld) [Partial pressure] 77 mmHg Low 85-95 [facility] Comment on above: Order Comment: Speci men Type: ARTERIAL BLOOD SPECIMENOrdering Facility: [facility] Address: [address] [place] [address] Performed By: #### A LLBG ####[facility]CL[facility] [id number] [place] [address] [place] Oxyhemoglobin (BldA) [Mass fraction] 93 % Low 95-98 [facility] Comment on above: Order Comment: Speci men Type: ARTERIAL BLOOD SPECIMENOrdering Facility: [facility] Address: [address] [place] [address] Performed By: #### A LLBG ####[facility] LABCLIA [id number] [place] [address] [place] PEEP/CPAP 10 cmH2O Normal [facility] Comment on above: Order Comment: Speci men Type: ARTERIAL BLOOD SPECIMENOrdering Facility: [facility] Address: [address] [place] [address] Performed By: #### A LLBG ####[facility] LABCLIA [id number] [place] [address] [place] pH (Bld) 7.33 [pH] Low 7.35-7.45 [facility] Comment on above: Order Comment: Speci men Type: ARTERIAL BLOOD SPECIMENOrdering Facility: [facility] Address: [address] [place] [id number] Performed By: #### A LLBG ####[facility] LABCL[facility] [id number] [place] [address] [place] pH adjusted to patient's actual temperature (Bld) 7.33 Low 7.35-7.45 [facility] Comment on above: Order Comment: Speci men Type: ARTERIAL BLOOD SPECIMENOrdering Facility: [facility] Address: [address] [place], [place] [id number] Performed By: #### A LLBG ####[facility] LABCL[facility] [id number] [place] [address] [place] PO2 / FIO2 RATIO 169 mmHg Low >[address] [facility] Comment on above: Order Comment: Speci men Type: ARTERIAL BLOOD SPECIMENOrdering Facility: [facility] Address: [address] [place] [address] Performed By: #### A LLBG ####[facility]CL[facility] [id number] [place] [address] [place] Potassium [Moles/Vol] 4.3 mmol/L Normal 3.5-5.0 [facility] Comment on above: Order Comment: Speci men Type: ARTERIAL BLOOD SPECIMENOrdering Facility: [facility] Address: [address] [place] [address] Performed By: #### A LLBG ####[facility] LABCL[facility] [id number] [place] [address] [place] Sodium [Moles/Vol] 139 mmol/L Normal 136-144 [facility] Comment on above: Order Comment: Speci men Type: ARTERIAL BLOOD SPECIMENOrdering Facility: [facility] Address: [address] [place] [address] Performed By: #### A LLBG ####[facility] LABCLIA [id number] [place] [address] [place] Base excess Calc (Bld) [Moles/Vol] 10 mmol/L High 0-2 [facility] Comment on above: Order Comment: Speci men Type: ARTERIAL BLOOD SPECIMENOrdering Facility: [facility] Address: [address] [place] [address] Performed By: #### A LLBG ####[facility] LABCL[facility] [id number] [place] [address] [place] Body temperature 99.68 [degF] Normal [facility] Comment on above: Order Comment: Speci men Type: ARTERIAL BLOOD SPECIMENOrdering Facility: [facility] Address: [address] [place] [address] Performed By: #### A LLBG ####[facility] LABIA [id number] [place] [address] [place] Calcium.ionized (Bld) [Mass/Vol] 1.18 mmol/L Normal 1.08-1.30 [facility] Comment on above: Order Comment: Speci men Type: ARTERIAL BLOOD SPECIMENOrdering Facility: [facility] Address: [address] [place] [address] Performed By: #### A LLBG ####[facility] LABIA [id number] [place] [address] [place] Calcium.ionized adjusted to pH 7.4 (BldA) [Moles/Vol] 1.20 mmol/L Normal 1.08-1.30 [facility] Comment on above: Order Comment: Speci men Type: ARTERIAL BLOOD SPECIMENOrdering Facility: [facility] Address: [address] [place] [address] Performed By: #### A LLBG ####[facility] LABIA [id number] [place] [address] [place] Carboxyhemoglobin (BldA) [Mass fraction] 1.0 % Normal 0.0-2.0 [facility] Comment on above: Order Comment: Speci men Type: ARTERIAL BLOOD SPECIMENOrdering Facility: [facility] Address: [address] [place] [address] Result Comment: Carb oxyhemoglobin Reference Range for Smokers: 2.0-8.0% Performed By: #### A LLBG ####[facility] LABIA [id number] [place] [address] [place] CO2 (Bld) [Partial pressure] 54 mm Hg High 36-46 [facility] Comment on above: Order Comment: Speci men Type: ARTERIAL BLOOD SPECIMENOrdering Facility: [facility] Address: [address] [place] [address] Performed By: #### A LLBG ####[facility] LABCL[facility] [id number] [place] [address] [place] CO2 adjusted to patient's actual temperature (Bld) [Partial pressure] 56 mmHg High 36-46 [facility] Comment on above: Order Comment: Speci men Type: ARTERIAL BLOOD SPECIMENOrdering Facility: [facility] Address: [address] [place] [address] Performed By: #### A LLBG ####[facility]CL[facility] [id number] [place] [address] [place] FIO2 50 % Normal [facility] Comment on above: Order Comment: Speci men Type: ARTERIAL BLOOD SPECIMENOrdering Facility: [facility] Address: [address] [place] [address] Performed By: #### A LLBG ####[facility]CL[facility] [id number] [place] [address] [place] Glucose [Mass/Vol] 116 mg/dL High 60-105 [facility] Comment on above: Order Comment: Speci men Type: ARTERIAL BLOOD SPECIMENOrdering Facility: [facility] Address: [address] [place] [address] Performed By: #### A LLBG ####[facility]CL[facility] [id number] [place] [address] [place] HCO3 (Bld) [Moles/Vol] 35 mmol/L High 22-26 [facility] Comment on above: Order Comment: Speci men Type: ARTERIAL BLOOD SPECIMENOrdering Facility: [facility] Address: [address] [place] [address] Performed By: #### A LLBG ####[facility]CL[facility] [id number] [place] [address] [place] Hematocrit (Bld) [Volume fraction] 32.3 % Low 36.0-46.0 [facility] Comment on above: Order Comment: Speci men Type: ARTERIAL BLOOD SPECIMENOrdering Facility: [facility] Address: [address] [place] [address] Performed By: #### A LLBG ####[facility] [id number] [place] [address] [place] Hemoglobin (Bld) [Mass/Vol] 10.5 g/dL Low 11.5-15.5 [facility] Comment on above: Order Comment: Speci men Type: ARTERIAL BLOOD SPECIMENOrdering Facility: [facility] Address: [address] [place] [address] Performed By: #### A LLBG ####[facility] [id number] [place] [address] [place] Lactate [Moles/Vol] 1.4 mmol/L Normal 0.5-2.2 [facility] Comment on above: Order Comment: Speci men Type: ARTERIAL BLOOD SPECIMENOrdering Facility: [facility] Address: [address] [place] [address] Performed By: #### A LLBG ####[facility] [id number] [place] [address] [place] Methemoglobin (Bld) [Mass fraction] 0.6 % Normal 0.0-1.5 [facility] Comment on above: Order Comment: Speci men Type: ARTERIAL BLOOD SPECIMENOrdering Facility: [facility] Address: [address] [place] [address] Performed By: #### A LLBG ####[facility] LABIA [id number] [place] [address] [place] O2 THERAPY VENT=Ventilator Normal [facility] Comment on above: Order Comment: Speci men Type: ARTERIAL BLOOD SPECIMENOrdering Facility: [facility] Address: [address] [place] [address] Performed By: #### A LLBG ####[facility] LABCL[facility] [id number] [place] [address] [place] Oxygen (Bld) [Partial pressure] 97 mm Hg High 85-95 [facility] Comment on above: Order Comment: Speci men Type: ARTERIAL BLOOD SPECIMENOrdering Facility: [facility] Address: [address] [place] [address] Performed By: #### A LLBG ####[facility]CL[facility] [id number] [place] [address] [place] Oxygen adjusted to patient's actual temperature (Bld) [Partial pressure] 100 mmHg High 85-95 [facility] Comment on above: Order Comment: Speci men Type: ARTERIAL BLOOD SPECIMENOrdering Facility: [facility] Address: [address] [place] [address] Performed By: #### A LLBG ####[facility]CL[facility] [id number] [place] [address] [place] Oxyhemoglobin (BldA) [Mass fraction] 97 % Normal 95-98 [facility] Comment on above: Order Comment: Speci men Type: ARTERIAL BLOOD SPECIMENOrdering Facility: [facility] Address: [address] [place] [address] Performed By: #### A LLBG ####[facility] [id number] [place] [address] [place] PEEP/CPAP 10 cmH2O Normal [facility] Comment on above: Order Comment: Speci men Type: ARTERIAL BLOOD SPECIMENOrdering Facility: [facility] Address: [address] [place] [address] Performed By: #### A LLBG ####[facility]CL[facility] [id number] [place] [address] [place] pH (Bld) 7.43 [pH] Normal 7.35-7.45 [facility] Comment on above: Order Comment: Speci men Type: ARTERIAL BLOOD SPECIMENOrdering Facility: [facility] Address: [address] [place] [address] Performed By: #### A LLBG ####[facility]CL[facility] [id number] [place] [address] [place] pH adjusted to patient's actual temperature (Bld) 7.42 Normal 7.35-7.45 [facility] Comment on above: Order Comment: Speci men Type: ARTERIAL BLOOD SPECIMENOrdering Facility: [facility] Address: [address] [place] [address] Performed By: #### A LLBG ####[facility]CL[facility] [id number] [place] [address] [place] PO2 / FIO2 RATIO 194 mmHg Low >[address] [facility] Comment on above: Order Comment: Speci men Type: ARTERIAL BLOOD SPECIMENOrdering Facility: [facility] Address: [address] [place] [address] Performed By: #### A LLBG ####[facility]CL[facility] [id number] [place] [address] [place] Potassium [Moles/Vol] 3.8 mmol/L Normal 3.5-5.0 [facility] Comment on above: Order Comment: Speci men Type: ARTERIAL BLOOD SPECIMENOrdering Facility: [facility] Address: [address] [place] [address] Performed By: #### A LLBG ####[facility]CL[facility] [id number] [place] [address] [place] Sodium [Moles/Vol] 139 mmol/L Normal 136-144 [facility] Comment on above: Order Comment: Speci men Type: ARTERIAL BLOOD SPECIMENOrdering Facility: [facility] Address: [address] [place], [place] [id number] Performed By: #### A LLBG ####[facility] [id number] [place] [address] [place] Base excess Calc (Bld) [Moles/Vol] 8 mmol/L High 0-2 [facility] Comment on above: Order Comment: Speci men Type: ARTERIAL BLOOD SPECIMENOrdering Facility: [facility] Address: [address] [place] [address] Performed By: #### A LLBG ####[facility] [id number] [place] [address] [place] Body temperature 99.5 [degF] Normal [facility] Comment on above: Order Comment: Speci men Type: ARTERIAL BLOOD SPECIMENOrdering Facility: [facility] Address: [address] [place] [address] Performed By: #### A LLBG ####[facility] [id number] [place] [address] [place] Calcium.ionized (Bld) [Mass/Vol] 1.22 mmol/L Normal 1.08-1.30 [facility] Comment on above: Order Comment: Speci men Type: ARTERIAL BLOOD SPECIMENOrdering Facility: [facility] Address: [address] [place] [address] Performed By: #### A LLBG ####[facility] [id number] [place] [address] [place] Calcium.ionized adjusted to pH 7.4 (BldA) [Moles/Vol] 1.22 mmol/L Normal 1.08-1.30 [facility] Comment on above: Order Comment: Speci men Type: ARTERIAL BLOOD SPECIMENOrdering Facility: [facility] Address: [address] [place] [address] Performed By: #### A LLBG ####[facility] [id number] [place] [address] [place] Carboxyhemoglobin (BldA) [Mass fraction] 0.7 % Normal 0.0-2.0 [facility] Comment on above: Order Comment: Speci men Type: ARTERIAL BLOOD SPECIMENOrdering Facility: [facility] Address: [address] [place] [address] Result Comment: Carb oxyhemoglobin Reference Range for Smokers: 2.0-8.0% Performed By: #### A LLBG ####[facility]CL[facility] [id number] [place] [address] [place] CO2 (Bld) [Partial pressure] 55 mm Hg High 36-46 [facility] Comment on above: Order Comment: Speci men Type: ARTERIAL BLOOD SPECIMENOrdering Facility: [facility] Address: [address] [place] [address] Performed By: #### A LLBG ####[facility] [id number] [place] [address] [place] CO2 adjusted to patient's actual temperature (Bld) [Partial pressure] 56 mmHg High 36-46 [facility] Comment on above: Order Comment: Speci men Type: ARTERIAL BLOOD SPECIMENOrdering Facility: [facility] Address: [address] [place] [address] Performed By: #### A LLBG ####[facility] [id number] [place] [address] [place] FIO2 50 % Normal [facility] Comment on above: Order Comment: Speci men Type: ARTERIAL BLOOD SPECIMENOrdering Facility: [facility] Address: [address] [place] [address] Performed By: #### A LLBG ####[facility] [id number] [place] [address] [place] Glucose [Mass/Vol] 125 mg/dL High 60-105 [facility] Comment on above: Order Comment: Speci men Type: ARTERIAL BLOOD SPECIMENOrdering Facility: [facility] Address: [address] [place] [address] Performed By: #### A LLBG ####[facility] [id number] [place] [address] [place] HCO3 (Bld) [Moles/Vol] 34 mmol/L High 22-26 [facility] Comment on above: Order Comment: Speci men Type: ARTERIAL BLOOD SPECIMENOrdering Facility: [facility] Address: [address] [place] [address] Performed By: #### A LLBG ####[facility] [id number] [place] [address] [place] Hematocrit (Bld) [Volume fraction] 32.9 % Low 36.0-46.0 [facility] Comment on above: Order Comment: Speci men Type: ARTERIAL BLOOD SPECIMENOrdering Facility: [facility] Address: [address] [place] [address] Performed By: #### A LLBG ####[facility] LABIA [id number] [place] [address] [place] Hemoglobin (Bld) [Mass/Vol] 10.7 g/dL Low 11.5-15.5 [facility] Comment on above: Order Comment: Speci men Type: ARTERIAL BLOOD SPECIMENOrdering Facility: [facility] Address: [address] [place] [address] Performed By: #### A LLBG ####[facility] [id number] [place] [address] [place] Lactate [Moles/Vol] 1.5 mmol/L Normal 0.5-2.2 [facility] Comment on above: Order Comment: Speci men Type: ARTERIAL BLOOD SPECIMENOrdering Facility: [facility] Address: [address] [place] [address] Performed By: #### A LLBG ####[facility] [id number] [place] [address] [place] Methemoglobin (Bld) [Mass fraction] 1.0 % Normal 0.0-1.5 [facility] Comment on above: Order Comment: Speci men Type: ARTERIAL BLOOD SPECIMENOrdering Facility: [facility] Address: [address] [place] [address] Performed By: #### A LLBG ####[facility] [id number] [address] [address] [place] O2 THERAPY VENT=Ventilator Normal [facility] Comment on above: Order Comment: Speci men Type: ARTERIAL BLOOD SPECIMENOrdering Facility: [facility] Address: [address] [place] [address] Performed By: #### A LLBG ####[facility] [id number] [place] [address] [place] Oxygen (Bld) [Partial pressure] 126 mm Hg High 85-95 [facility] Comment on above: Order Comment: Speci men Type: ARTERIAL BLOOD SPECIMENOrdering Facility: [facility] Address: [address] [place] [address] Performed By: #### A LLBG ####[facility] [id number] [place] [address] [place] Oxygen adjusted to patient's actual temperature (Bld) [Partial pressure] 129 mmHg High 85-95 [facility] Comment on above: Order Comment: Speci men Type: ARTERIAL BLOOD SPECIMENOrdering Facility: [facility] Address: [address] [place], [place] [id number] Performed By: #### A LLBG ####[facility] [id number] [address] [address] [place] Oxyhemoglobin (BldA) [Mass fraction] 97 % Normal 95-98 [facility] Comment on above: Order Comment: Speci men Type: ARTERIAL BLOOD SPECIMENOrdering Facility: [facility] Address: [address] [place], [place] [id number] Performed By: #### A LLBG ####[facility] [id number] [place] [address] [place] PEEP/CPAP 10 cmH2O Normal [facility] Comment on above: Order Comment: Speci men Type: ARTERIAL BLOOD SPECIMENOrdering Facility: [facility] Address: [address] [place] [address] Performed By: #### A LLBG ####[facility] [id number] [place] [address] [place] pH (Bld) 7.41 [pH] Normal 7.35-7.45 [facility] Comment on above: Order Comment: Speci men Type: ARTERIAL BLOOD SPECIMENOrdering Facility: [facility] Address: [address] [place] [address] Performed By: #### A LLBG ####[facility]CL[facility] [id number] [place] [address] [place] pH adjusted to patient's actual temperature (Bld) 7.40 Normal 7.35-7.45 [facility] Comment on above: Order Comment: Speci men Type: ARTERIAL BLOOD SPECIMENOrdering Facility: [facility] Address: [address] [place] [address] Performed By: #### A LLBG ####[facility] [id number] [place] [address] [place] PO2 / FIO2 RATIO 252 mmHg Low >[address] [facility] Comment on above: Order Comment: Speci men Type: ARTERIAL BLOOD SPECIMENOrdering Facility: [facility] Address: [address] [place] [address] Performed By: #### A LLBG ####[facility] [id number] [place] [address] [place] Potassium [Moles/Vol] 4.0 mmol/L Normal 3.5-5.0 [facility] Comment on above: Order Comment: Speci men Type: ARTERIAL BLOOD SPECIMENOrdering Facility: [facility] Address: [address] [place] [address] Performed By: #### A LLBG ####[facility]CL[facility] [id number] [place] [address] [place] Sodium [Moles/Vol] 139 mmol/L Normal 136-144 [facility] Comment on above: Order Comment: Speci men Type: ARTERIAL BLOOD SPECIMENOrdering Facility: [facility] Address: [address] [place] [address] Performed By: #### A LLBG ####[facility] [id number] [place] [address] [place] Base excess Calc (Bld) [Moles/Vol] 7 mmol/L High 0-2 [facility] Comment on above: Order Comment: Speci men Type: ARTERIAL BLOOD SPECIMENOrdering Facility: [facility] Address: [address] [place] [address] Performed By: #### A LLBG ####[facility] [id number] [place] [address] [place] Body temperature 98.96 [degF] Normal [facility] Comment on above: Order Comment: Speci men Type: ARTERIAL BLOOD SPECIMENOrdering Facility: [facility] Address: [address] [place] [address] Performed By: #### A LLBG ####[facility] [id number] [place] [address] [place] Calcium.ionized (Bld) [Mass/Vol] 1.30 mmol/L Normal 1.08-1.30 [facility] Comment on above: Order Comment: Speci men Type: ARTERIAL BLOOD SPECIMENOrdering Facility: [facility] Address: [address] [place] [address] Performed By: #### A LLBG ####[facility] [id number] [place] [address] [place] Calcium.ionized adjusted to pH 7.4 (BldA) [Moles/Vol] 1.26 mmol/L Normal 1.08-1.30 [facility] Comment on above: Order Comment: Speci men Type: ARTERIAL BLOOD SPECIMENOrdering Facility: [facility] Address: [address] [place] [address] Performed By: #### A LLBG ####[facility] [id number] [place] [address] [place] Carboxyhemoglobin (BldA) [Mass fraction] 1.3 % Normal 0.0-2.0 [facility] Comment on above: Order Comment: Speci men Type: ARTERIAL BLOOD SPECIMENOrdering Facility: [facility] Address: [address] [place] [address] Result Comment: Carb oxyhemoglobin Reference Range for Smokers: 2.0-8.0% Performed By: #### A LLBG ####[facility]CL[facility] [id number] [place] [address] [place] CO2 (Bld) [Partial pressure] 65 mm Hg High 36-46 [facility] Comment on above: Order Comment: Speci men Type: ARTERIAL BLOOD SPECIMENOrdering Facility: [facility] Address: [address] [place] [address] Performed By: #### A LLBG ####[facility] [id number] [place] [address] [place] CO2 adjusted to patient's actual temperature (Bld) [Partial pressure] 65 mmHg High 36-46 [facility] Comment on above: Order Comment: Speci men Type: ARTERIAL BLOOD SPECIMENOrdering Facility: [facility] Address: [address] [place] [address] Performed By: #### A LLBG ####[facility] [id number] [place] [address] [place] FIO2 50 % Normal [facility] Comment on above: Order Comment: Speci men Type: ARTERIAL BLOOD SPECIMENOrdering Facility: [facility] Address: [address] [place] [address] Performed By: #### A LLBG ####[facility]CL[facility] [id number] [place] [address] [place] Glucose [Mass/Vol] 120 mg/dL High 60-105 [facility] Comment on above: Order Comment: Speci men Type: ARTERIAL BLOOD SPECIMENOrdering Facility: [facility] Address: [address] [place] [address] Performed By: #### A LLBG ####[facility] [id number] [place] [address] [place] HCO3 (Bld) [Moles/Vol] 34 mmol/L High 22-26 [facility] Comment on above: Order Comment: Speci men Type: ARTERIAL BLOOD SPECIMENOrdering Facility: [facility] Address: [address] [place] [address] Performed By: #### A LLBG ####[facility]CL[facility] [id number] [place] [address] [place] Hematocrit (Bld) [Volume fraction] 33.1 % Low 36.0-46.0 [facility] Comment on above: Order Comment: Speci men Type: ARTERIAL BLOOD SPECIMENOrdering Facility: [facility] Address: [address] [place] [address] Performed By: #### A LLBG ####[facility] [id number] [place] [address] [place] Hemoglobin (Bld) [Mass/Vol] 10.7 g/dL Low 11.5-15.5 [facility] Comment on above: Order Comment: Speci men Type: ARTERIAL BLOOD SPECIMENOrdering Facility: [facility] Address: [address] [place] [address] Performed By: #### A LLBG ####[facility]CL[facility] [id number] [place] [address] [place] Lactate [Moles/Vol] 1.3 mmol/L Normal 0.5-2.2 [facility] Comment on above: Order Comment: Speci men Type: ARTERIAL BLOOD SPECIMENOrdering Facility: [facility] Address: [address] [place] [address] Performed By: #### A LLBG ####[facility] [id number] [place] [address] [place] Methemoglobin (Bld) [Mass fraction] 1.2 % Normal 0.0-1.5 [facility] Comment on above: Order Comment: Speci men Type: ARTERIAL BLOOD SPECIMENOrdering Facility: [facility] Address: [address] [place] [address] Performed By: #### A LLBG ####[facility] [id number] [address] [place] O2 THERAPY VENT=Ventilator Normal [facility] Comment on above: Order Comment: Speci men Type: ARTERIAL BLOOD SPECIMENOrdering Facility: [facility] Address: [address] [place] [address] Performed By: #### A LLBG ####[facility]CL[facility] [id number] [place] [address] [place] Oxygen (Bld) [Partial pressure] 107 mm Hg High 85-95 [facility] Comment on above: Order Comment: Speci men Type: ARTERIAL BLOOD SPECIMENOrdering Facility: [facility] Address: [address] [place] [id number] Performed By: #### A LLBG ####[facility]CL[facility] [id number] [place] [address] [place] Oxygen adjusted to patient's actual temperature (Bld) [Partial pressure] 108 mmHg High 85-95 [facility] Comment on above: Order Comment: Speci men Type: ARTERIAL BLOOD SPECIMENOrdering Facility: [facility] Address: [address] [place] [address] Performed By: #### A LLBG ####[facility]CL[facility] [id number] [place] [address] [place] Oxyhemoglobin (BldA) [Mass fraction] 96 % Normal 95-98 [facility] Comment on above: Order Comment: Speci men Type: ARTERIAL BLOOD SPECIMENOrdering Facility: [facility] Address: [address] [place] [address] Performed By: #### A LLBG ####[facility]CL[facility] [id number] [place] [address] [place] PEEP/CPAP 10 cmH2O Normal [facility] Comment on above: Order Comment: Speci men Type: ARTERIAL BLOOD SPECIMENOrdering Facility: [facility] Address: [address] [place] [address] Performed By: #### A LLBG ####[facility]CL[facility] [id number] [place] [address] [place] pH (Bld) 7.34 [pH] Low 7.35-7.45 [facility] Comment on above: Order Comment: Speci men Type: ARTERIAL BLOOD SPECIMENOrdering Facility: [facility] Address: [address] [place] [address] Performed By: #### A LLBG ####[facility]CL[facility] [id number] [place] [address] [place] pH adjusted to patient's actual temperature (Bld) 7.34 Low 7.35-7.45 [facility] Comment on above: Order Comment: Speci men Type: ARTERIAL BLOOD SPECIMENOrdering Facility: [facility] Address: [address] [place] [address] Performed By: #### A LLBG ####[facility] [id number] [place] [address] [place] PO2 / FIO2 RATIO 214 mmHg Low >[address] [facility] Comment on above: Order Comment: Speci men Type: ARTERIAL BLOOD SPECIMENOrdering Facility: [facility] Address: [address] [place] [address] Performed By: #### A LLBG ####[facility]CL[facility] [id number] [place] [id number] [place] Potassium [Moles/Vol] 4.3 mmol/L Normal 3.5-5.0 [facility] Comment on above: Order Comment: Speci men Type: ARTERIAL BLOOD SPECIMENOrdering Facility: [facility] Address: [address] [place] [address] Performed By: #### A LLBG ####[facility] [id number] [place] [address] [place] Sodium [Moles/Vol] 142 mmol/L Normal 136-144 [facility] Comment on above: Order Comment: Speci men Type: ARTERIAL BLOOD SPECIMENOrdering Facility: [facility] Address: [address] [place] [address] Performed By: #### A LLBG ####[facility] [id number] [place] [address] [place] Basic metabolic 2000 panelon 09-04-2024 Anion gap [Moles/Vol] 8 mmol/L Normal 8-15 [facility] Comment on above: Order Comment: Speci men Type: BLOOD SPECIMENOrdering Facility: [facility] Address: [address] [place] [address] Performed By: #### 2 4321-2, 28448-9 ####[facility] [id number] [place] [address] [place] Calcium [Mass/Vol] 8.9 mg/dL Normal 8.5-10.2 [facility] Comment on above: Order Comment: Speci men Type: BLOOD SPECIMENOrdering Facility: [facility] Address: [address] [place] [address] Performed By: #### 2 432-2, ####[facility] [id number] [facility] [address] [address] [place] Chloride [Moles/Vol] 99 mmol/L Normal 98-107 [facility] Comment on above: Order Comment: Speci men Type: BLOOD SPECIMENOrdering Facility: [facility] Address: [address] [place] [address] Performed By: #### 2 432-2, ####[facility] [id number] [place] [address] [place] CO2 [Moles/Vol] 32 mmol/L High 22-30 [facility] Comment on above: Order Comment: Speci men Type: BLOOD SPECIMENOrdering Facility: [facility] Address: [address] [place] [address] Performed By: #### 2 43208-12, ####[facility] [id number] [place] [id number] [place] Creatinine [Mass/Vol] 0.73 mg/dL Normal 0.58-0.96 [facility] Comment on above: Order Comment: Speci men Type: BLOOD SPECIMENOrdering Facility: [facility] Address: [address] [place] [address] Performed By: #### 2 4322, ####[facility] [id number] [place] [id number] [place] Creatinine and Glomerular filtration rate.predicted panel (S/P/Bld) 98 mL/min/1.73m??? Normal >=60 [facility] Comment on above: Order Comment: Speci men Type: BLOOD SPECIMENOrdering Facility: [facility] Address: [address] [place] [address] Result Comment: Anna mated Glomerular Filtration Rate (eGFR) is calculated using the 2020 CKD-EPI creatinine equation. This equation utilizes serum creatinine, sex, and age as parameters. The creatinine assay has traceable calibration to isotope dilution-mass spectrometry. Refer to KDIGO guidelines for clinical interpretation. In patients with unstable renal function, e.g. those with acute kidney injury, the eGFR may not accurately reflect actual GFR. Performed By: #### 2 4320-09, ####[facility] [id number] [place] [address] [place] Glucose [Mass/Vol] 111 mg/dL High 74-99 [facility] Comment on above: Order Comment: Jet otto Type: BLOOD SPECIMENOrdering Facility: [facility] Address: [address] [place] [address] Result Comment: The [place] [employer] (ADA) provides guidance for cutoff values for fasting glucose and random glucose. The ADA defines fasting as no caloric intake for at least 8 hours. Fasting plasma glucose results between 100 to 125 mg/dL indicate increased risk for diabetes (prediabetes).Fasting plasma glucose results greater than or equal to 126 mg/dL meet the criteria for diagnosis of diabetes. In the absence of unequivocal hyperglycemia, results should be confirmed by repeat testing. In a patient with classic symptoms of hyperglycemia or hyperglycemic crisis, random plasma glucose results greater than or equal to 200 mg/dL meet the criteria for diagnosis of diabetes.Reference: Standards of Medical Care in Diabetes 2016, [place] [employer]. Diabetes Care. 2016.39(Suppl 1). Performed By: #### 2 4320-09, ####[facility] [id number] [place] [id number] [place] Sodium [Moles/Vol] 139 mmol/L Normal 136-144 [facility] Comment on above: Order Comment: Jet otto Type: BLOOD SPECIMENOrdering Facility: [facility] Address: [address] [place] [address] Performed By: #### 2 4320-09, ####[facility] [id number] [address] [address] [place] Urea nitrogen [Mass/Vol] 17 mg/dL Normal 7-21 [facility] Comment on above: Order Comment: Speci men Type: BLOOD SPECIMENOrdering Facility: [facility] Address: [address] [place] [address] Performed By: #### 2 4321-2, 71250-6 ####[facility] [id number] [place] [address] [place] CBC panel Auto (Bld)on 09-04 Erythrocyte distribution width (RBC) [Ratio] 13.2 % Normal 11.5-15.0 [facility] Comment on above: Order Comment: Speci men Type: BLOOD SPECIMENOrdering Facility: [facility] Address: [address] [place] [address] Performed By: #### 5 8410-2 ####[facility] [id number] [place] [address] [place] Hematocrit (Bld) [Volume fraction] 32.6 % Low 36.0-46.0 [facility] Comment on above: Order Comment: Speci men Type: BLOOD SPECIMENOrdering Facility: [facility] Address: [address] [place] [address] Performed By: #### 5 8410-2 ####[facility] [id number] [place] [address] [place] Hemoglobin (Bld) [Mass/Vol] 10.9 g/dL Low 11.5-15.5 [facility] Comment on above: Order Comment: Speci men Type: BLOOD SPECIMENOrdering Facility: [facility] Address: [address] [place] [address] Performed By: #### 5 8410-2 ####[facility] [id number] [place] [address] [place] MCH (RBC) [Entitic mass] 29.8 pg Normal 26.0-34.0 [facility] Comment on above: Order Comment: Speci men Type: BLOOD SPECIMENOrdering Facility: [facility] Address: [address] [place] [address] Performed By: #### 5 8410-2 ####[facility] [id number] [place] [address] [place] MCHC (RBC) [Mass/Vol] 33.4 g/dL Normal 30.5-36.0 [facility] Comment on above: Order Comment: Speci men Type: BLOOD SPECIMENOrdering Facility: [facility] Address: [address] [place] [address] Performed By: #### 5 8410-2 ####[facility] [id number] [place] [address] [place] MCV (RBC) [Entitic vol] 89.1 fL Normal 80.0-100.0 [facility] Comment on above: Order Comment: Speci men Type: BLOOD SPECIMENOrdering Facility: [facility] Address: [address] [place] [address] Performed By: #### 5 8410-2 ####[facility] [id number] [place] [address] [place] Nucleated RBC (Bld) [#/Vol] 0.03 10*3/uL High <0.01 [facility] Comment on above: Order Comment: Speci men Type: BLOOD SPECIMENOrdering Facility: [facility] Address: [address] [place] [address] Performed By: #### 5 8410-2 ####[facility] [id number] [place] [address] [place] Platelet mean volume (Bld) [Entitic vol] 10.1 fL Normal 9.0-12.7 [facility] Comment on above: Order Comment: Speci men Type: BLOOD SPECIMENOrdering Facility: [facility] Address: [address] [place] [address] Performed By: #### 5 8410-2 ####[facility] [id number] [address] [address] [place] Platelets (Bld) [#/Vol] 220 10*3/uL Normal 150-400 [facility] Comment on above: Order Comment: Speci men Type: BLOOD SPECIMENOrdering Facility: [facility] Address: [address] [place] [address] Performed By: #### 5 8410-2 ####[facility]IA [id number] [place] [address] [place] RBC (Bld) [#/Vol] 3.66 10*6/uL Low 3.90-5.20 [facility] Comment on above: Order Comment: Speci men Type: BLOOD SPECIMENOrdering Facility: [facility] Address: [address] [place] [address] Performed By: #### 5 8410-2 ####[facility] [id number] [place] [address] [place] WBC (Bld) [#/Vol] 10.29 10*3/uL Normal 3.70-11.00 [facility] Comment on above: Order Comment: Speci men Type: BLOOD SPECIMENOrdering Facility: [facility] Address: [address] [place] [address] Performed By: #### 5 8410-2 ####[facility] [id number] [place] [id number] [place] ZXM23md 09-04-2024 ECG01 Normal [facility] Gas + CO Pnl BldVon 09-04-19 25 Potassium [Moles/Vol] 4.2 mmol/L Normal 3.7-5.1 [facility] Comment on above: Order Comment: Speci men Type: VENOUS BLOOD SPECIMENOrdering Facility: [facility] Address: [address] [place] [address] Performed By: #### 2 4344-4 ####[facility]CL[facility] [id number] [place] [address] [place] Order Comment: Speci men Type: BLOOD SPECIMENOrdering Facility: [facility] Address: [address] [place] [address] Performed By: #### 2 4321-2, 04742-1 ####[facility] [id number] [place] [address] [place] Gas and Carbon monoxide pane l (BldV)on 09-04-2024 Base excess Calc (BldV) [Moles/Vol] 8 mmol/L High 0-2 [facility] Comment on above: Order Comment: Speci men Type: VENOUS BLOOD SPECIMENOrdering Facility: [facility] Address: [address] [place] [address] Performed By: #### 2 4344-4 ####[facility] [id number] [place] [address] [place] Body temperature 98.42 [degF] Normal [facility] Comment on above: Order Comment: Speci men Type: VENOUS BLOOD SPECIMENOrdering Facility: [facility] Address: [address] [place] [address] Performed By: #### 2 4344-4 ####[facility] [id number] [place] [address] [place] Calcium.ionized (Bld) [Mass/Vol] 1.24 mmol/L Normal 1.08-1.30 [facility] Comment on above: Order Comment: Speci men Type: VENOUS BLOOD SPECIMENOrdering Facility: [facility] Address: [address] [place] [address] Performed By: #### 2 4344-4 ####[facility] [id number] [place] [address] [place] Calcium.ionized adjusted to pH 7.4 (BldA) [Moles/Vol] 1.22 mmol/L Normal 1.08-1.30 [facility] Comment on above: Order Comment: Speci men Type: VENOUS BLOOD SPECIMENOrdering Facility: [facility] Address: [address] [place] [address] Performed By: #### 2 4344-4 ####[facility]CL[facility] [id number] [address] [address] [place] Carboxyhemoglobin (BldV) [Mass fraction] 0.8 % Normal 0.0-2.0 [facility] Comment on above: Order Comment: Speci men Type: VENOUS BLOOD SPECIMENOrdering Facility: [facility] Address: [address] [place] [address] Result Comment: Carb oxyhemoglobin Reference Range for Smokers: 2.0-8.0% Performed By: #### 2 4344-4 ####[facility]CL[facility] [id number] [place] [address] [place] CO2 (BldV) [Partial pressure] 62 mm[Hg] High 42-55 [facility] Comment on above: Order Comment: Speci men Type: VENOUS BLOOD SPECIMENOrdering Facility: [facility] Address: [address] [place] [address] Performed By: #### 2 4344-4 ####[facility] [id number] [place] [address] [place] CO2 adjusted to patient's actual temperature (BldV) [Partial pressure] 61 mmHg High 42-55 [facility] Comment on above: Order Comment: Speci men Type: VENOUS BLOOD SPECIMENOrdering Facility: [facility] Address: [address] [place] [address] Performed By: #### 2 4344-4 ####[facility] [id number] [place] [id number] [place] FIO2 45 % Normal [facility] Comment on above: Order Comment: Speci men Type: VENOUS BLOOD SPECIMENOrdering Facility: [facility] Address: [address] [place] [address] Performed By: #### 2 4344-4 ####[facility] [id number] [place] [address] [place] Glucose [Mass/Vol] 123 mg/dL High 60-105 [facility] Comment on above: Order Comment: Speci men Type: VENOUS BLOOD SPECIMENOrdering Facility: [facility] Address: [address] [place] [address] Performed By: #### 2 4344-4 ####[facility] [id number] [place] [address] [place] HCO3 (Bld) [Moles/Vol] 35 mmol/L High 24-28 [facility] Comment on above: Order Comment: Speci men Type: VENOUS BLOOD SPECIMENOrdering Facility: [facility] Address: [address] [place] [address] Performed By: #### 2 4344-4 ####[facility] [id number] [place] [address] [place] Hematocrit (Bld) [Volume fraction] 34.5 % Low 36.0-46.0 [facility] Comment on above: Order Comment: Speci men Type: VENOUS BLOOD SPECIMENOrdering Facility: [facility] Address: [address] [place], [place] [address] Performed By: #### 2 4344-4 ####[facility] [id number] [place] [id number] [place] Hemoglobin (Bld) [Mass/Vol] 11.2 g/dL Low 11.5-15.5 [facility] Comment on above: Order Comment: Speci men Type: VENOUS BLOOD SPECIMENOrdering Facility: [facility] Address: [address] [place] [id number] Performed By: #### 2 4344-4 ####[facility] [id number] [place] [id number] [place] Lactate [Moles/Vol] 1.4 mmol/L Normal 0.5-2.2 [facility] Comment on above: Order Comment: Speci men Type: VENOUS BLOOD SPECIMENOrdering Facility: [facility] Address: [address] [place] [address] Performed By: #### 2 4344-4 ####[facility] [id number] [place] [address] [place] Methemoglobin (Bld) [Mass fraction] 0.7 % Normal 0.0-1.5 [facility] Comment on above: Order Comment: Speci men Type: VENOUS BLOOD SPECIMENOrdering Facility: [facility] Address: [address] [place] [address] Performed By: #### 2 4344-4 ####[facility] [id number] [address] [place] O2 THERAPY VENT=Ventilator Normal [facility] Comment on above: Order Comment: Speci men Type: VENOUS BLOOD SPECIMENOrdering Facility: [facility] Address: [address] [place] [address] Performed By: #### 2 4344-4 ####[facility] [id number] [place] [address] [place] Oxygen (BldV) [Partial pressure] 66 mm[Hg] High 35-45 [facility] Comment on above: Order Comment: Speci men Type: VENOUS BLOOD SPECIMENOrdering Facility: [facility] Address: [address] [place], [place] [address] Performed By: #### 2 4344-4 ####[facility] [id number] [place] [address] [place] Oxygen adjusted to patient's actual temperature (BldV) [Partial pressure] 66 mmHg High 35-45 [facility] Comment on above: Order Comment: Speci men Type: VENOUS BLOOD SPECIMENOrdering Facility: [facility] Address: [address] [place] [address] Performed By: #### 2 4344-4 ####[facility] [id number] [address] [address] [place] Oxygen saturation in Venous blood 92 % High 60-85 [facility] Comment on above: Order Comment: Speci men Type: VENOUS BLOOD SPECIMENOrdering Facility: [facility] Address: [address] [place] [address] Performed By: #### 2 4344-4 ####[facility] [id number] [place] [address] [place] Oxyhemoglobin (BldV) [Mass fraction] 91 % High 60-85 [facility] Comment on above: Order Comment: Speci men Type: VENOUS BLOOD SPECIMENOrdering Facility: [facility] Address: [address] [place], [place] [address] Performed By: #### 2 4344-4 ####[facility] [id number] [place] [id number] [place] pH (BldV) 7.37 [pH] Normal 7.32-7.42 [facility] Comment on above: Order Comment: Speci men Type: VENOUS BLOOD SPECIMENOrdering Facility: [facility] Address: [address] [place] [address] Performed By: #### 2 4344-4 ####[facility] [id number] [place] [id number] [place] pH adjusted to patient's actual temperature (BldV) 7.37 Normal 7.32-7.42 [facility] Comment on above: Order Comment: Speci men Type: VENOUS BLOOD SPECIMENOrdering Facility: [facility] Address: [address] [place] [address] Performed By: #### 2 4344-4 ####[facility] [id number] [place] [id number] [place] Sodium [Moles/Vol] 142 mmol/L Normal 136-144 [facility] Comment on above: Order Comment: Speci men Type: VENOUS BLOOD SPECIMENOrdering Facility: [facility] Address: [address] [place] [address] Performed By: #### 2 4344-4 ####[facility] [id number] [place] [address] [place] Base excess Calc (BldV) [Moles/Vol] 9 mmol/L High 0-2 [facility] Comment on above: Order Comment: Speci men Type: VENOUS BLOOD SPECIMENOrdering Facility: [facility] Address: [address] [place] [address] Performed By: #### 2 4344-4 ####[facility] [id number] [place] [address] [place] Body temperature 99.5 [degF] Normal [facility] Comment on above: Order Comment: Speci men Type: VENOUS BLOOD SPECIMENOrdering Facility: [facility] Address: [address] [place] [address] Performed By: #### 2 4344-4 ####[facility] [id number] [place] [address] [place] Calcium.ionized (Bld) [Mass/Vol] 1.20 mmol/L Normal 1.08-1.30 [facility] Comment on above: Order Comment: Speci men Type: VENOUS BLOOD SPECIMENOrdering Facility: [facility] Address: [address] [place] [address] Performed By: #### 2 4344-4 ####[facility] [id number] [place] [address] [place] Calcium.ionized adjusted to pH 7.4 (BldA) [Moles/Vol] 1.20 mmol/L Normal 1.08-1.30 [facility] Comment on above: Order Comment: Speci men Type: VENOUS BLOOD SPECIMENOrdering Facility: [facility] Address: [address] [place] [id number] Performed By: #### 2 4344-4 ####[facility] [id number] [address] [address] [place] Carboxyhemoglobin (BldV) [Mass fraction] 1.1 % Normal 0.0-2.0 [facility] Comment on above: Order Comment: Speci men Type: VENOUS BLOOD SPECIMENOrdering Facility: [facility] Address: [address] [place], [place] [address] Result Comment: Carb oxyhemoglobin Reference Range for Smokers: 2.0-8.0% Performed By: #### 2 4344-4 ####[facility] [id number] [address] [address] [place] CO2 (BldV) [Partial pressure] 57 mm[Hg] High 42-55 [facility] Comment on above: Order Comment: Speci men Type: VENOUS BLOOD SPECIMENOrdering Facility: [facility] Address: [address] [place], [place] [address] Performed By: #### 2 4344-4 ####[facility] [id number] [address] [address] [place] CO2 adjusted to patient's actual temperature (BldV) [Partial pressure] 58 mmHg High 42-55 [facility] Comment on above: Order Comment: Speci men Type: VENOUS BLOOD SPECIMENOrdering Facility: [facility] Address: [address] [place], [place] [address] Performed By: #### 2 4344-4 ####[facility] [id number] [place] [id number] [place] FIO2 45 % Normal [facility] Comment on above: Order Comment: Speci men Type: VENOUS BLOOD SPECIMENOrdering Facility: [facility] Address: [address] [place] [id number] Performed By: #### 2 4344-4 ####[facility] [id number] [place] [address] [place] Glucose [Mass/Vol] 149 mg/dL High 60-105 [facility] Comment on above: Order Comment: Speci men Type: VENOUS BLOOD SPECIMENOrdering Facility: [facility] Address: [address] [place] [address] Performed By: #### 2 4344-4 ####[facility] [id number] [place] [address] [place] HCO3 (Bld) [Moles/Vol] 35 mmol/L High 24-28 [facility] Comment on above: Order Comment: Speci men Type: VENOUS BLOOD SPECIMENOrdering Facility: [facility] Address: [address] [place] [address] Performed By: #### 2 4344-4 ####[facility] [id number] [place] [address] [place] Hematocrit (Bld) [Volume fraction] 31.7 % Low 36.0-46.0 [facility] Comment on above: Order Comment: Speci men Type: VENOUS BLOOD SPECIMENOrdering Facility: [facility] Address: [address] [place] [address] Performed By: #### 2 4344-4 ####[facility] [id number] [place] [address] [place] Hemoglobin (Bld) [Mass/Vol] 10.2 g/dL Low 11.5-15.5 [facility] Comment on above: Order Comment: Speci men Type: VENOUS BLOOD SPECIMENOrdering Facility: [facility] Address: [address] [place] [address] Performed By: #### 2 4344-4 ####[facility] [id number] [place] [address] [place] Lactate [Moles/Vol] 1.8 mmol/L Normal 0.5-2.2 [facility] Comment on above: Order Comment: Speci men Type: VENOUS BLOOD SPECIMENOrdering Facility: [facility] Address: [address] [place] [address] Performed By: #### 2 4344-4 ####[facility] [id number] [place] [address] [place] Methemoglobin (Bld) [Mass fraction] 1.0 % Normal 0.0-1.5 [facility] Comment on above: Order Comment: Speci men Type: VENOUS BLOOD SPECIMENOrdering Facility: [facility] Address: [address] [place] [address] Performed By: #### 2 4344-4 ####[facility] [id number] [place] [address] [place] O2 THERAPY VENT=Ventilator Normal [facility] Comment on above: Order Comment: Speci men Type: VENOUS BLOOD SPECIMENOrdering Facility: [facility] Address: [address] [place] [address] Performed By: #### 2 4344-4 ####[facility] [id number] [place] [address] [place] Oxygen (BldV) [Partial pressure] 57 mm[Hg] High 35-45 [facility] Comment on above: Order Comment: Speci men Type: VENOUS BLOOD SPECIMENOrdering Facility: [facility] Address: [address] [place] [address] Performed By: #### 2 4344-4 ####[facility] [id number] [place] [address] [place] Oxygen adjusted to patient's actual temperature (BldV) [Partial pressure] 59 mmHg High 35-45 [facility] Comment on above: Order Comment: Speci men Type: VENOUS BLOOD SPECIMENOrdering Facility: [facility] Address: [address] [place] [address] Performed By: #### 2 4344-4 ####[facility] [id number] [address] [address] [place] Oxygen saturation in Venous blood 90 % High 60-85 [facility] Comment on above: Order Comment: Speci men Type: VENOUS BLOOD SPECIMENOrdering Facility: [facility] Address: [address] [place] [address] Performed By: #### 2 4344-4 ####[facility] [id number] [address] [address] [place] Oxyhemoglobin (BldV) [Mass fraction] 88 % High 60-85 [facility] Comment on above: Order Comment: Speci men Type: VENOUS BLOOD SPECIMENOrdering Facility: [facility] Address: [address] [place], [place] [address] Performed By: #### 2 4344-4 ####[facility] [id number] [place] [id number] [place] PEEP/CPAP 10 cmH2O Normal [facility] Comment on above: Order Comment: Speci men Type: VENOUS BLOOD SPECIMENOrdering Facility: [facility] Address: [address] [place], [place] [address] Performed By: #### 2 4344-4 ####[facility] [id number] [place] [id number] [place] pH (BldV) 7.41 [pH] Normal 7.32-7.42 [facility] Comment on above: Order Comment: Speci men Type: VENOUS BLOOD SPECIMENOrdering Facility: [facility] Address: [address] [place] [address] Performed By: #### 2 4344-4 ####[facility] [id number] [address] [address] [place] pH adjusted to patient's actual temperature (BldV) 7.40 Normal 7.32-7.42 [facility] Comment on above: Order Comment: Speci men Type: VENOUS BLOOD SPECIMENOrdering Facility: [facility] Address: [address] [place] [address] Performed By: #### 2 4344-4 ####[facility] [id number] [address] [address] [place] Potassium [Moles/Vol] 4.0 mmol/L Normal 3.5-5.0 [facility] Comment on above: Order Comment: Speci men Type: VENOUS BLOOD SPECIMENOrdering Facility: [facility] Address: [address] [place] [address] Performed By: #### 2 4344-4 ####[facility] [id number] [place] [address] [place] Sodium [Moles/Vol] 138 mmol/L Normal 136-144 [facility] Comment on above: Order Comment: Speci men Type: VENOUS BLOOD SPECIMENOrdering Facility: [facility] Address: [address] [place] [address] Performed By: #### 2 4344-4 ####[facility] [id number] [place] [address] [place] Magnesium SerPl-mCncon 09-04 Magnesium [Mass/Vol] 2.2 mg/dL Normal 1.7-2.3 [facility] Comment on above: Order Comment: Speci men Type: BLOOD SPECIMENOrdering Facility: [facility] Address: [address] [place] [address] Performed By: #### 2 4321-2, 94395-6 ####[facility] [id number] [place] [address] [place] TYPE + SCREENon 09-04-2024 ABO O Normal [facility] Comment on above: Order Comment: Speci men Type: BLOOD SPECIMENOrdering Facility: [facility] Address: [address] [place] [address] Performed By: #### T SCR ####[facility] BANKCLIA [id number] [place] [address] [place] Rh Nom (Bld) Positive Normal [facility] Comment on above: Order Comment: Speci men Type: BLOOD SPECIMENOrdering Facility: [facility] Address: [address] [place] [address] Performed By: #### T SCR ####[facility] BLOOD BANKCLIA [id number] [place] [address] [place] TYPE AND SCREEN EXPIRATION 09/07/2024 23:59 Normal [facility] Comment on above: Order Comment: Speci men Type: BLOOD SPECIMENOrdering Facility: [facility] Address: [address] [place] [address] Performed By: #### T SCR ####[facility] BLOOD BANKCLIA [id number] [place] [address] [place] ARTERIAL BLOOD GASESon 09-03 Base excess Calc (Bld) [Moles/Vol] 7 mmol/L High 0-2 [facility] Comment on above: Order Comment: Speci men Type: ARTERIAL BLOOD SPECIMENOrdering Facility: [facility] Address: [address] [place] [address] Performed By: #### A LLBG ####[facility] [id number] [place] [address] [place] Body temperature 98.78 [degF] Normal [facility] Comment on above: Order Comment: Speci men Type: ARTERIAL BLOOD SPECIMENOrdering Facility: [facility] Address: [address] [place] [address] Performed By: #### A LLBG ####[facility] [id number] [place] [address] [place] Calcium.ionized (Bld) [Mass/Vol] 1.27 mmol/L Normal 1.08-1.30 [facility] Comment on above: Order Comment: Speci men Type: ARTERIAL BLOOD SPECIMENOrdering Facility: [facility] Address: [address] [place] [address] Performed By: #### A LLBG ####[facility] [id number] [place] [address] [place] Calcium.ionized adjusted to pH 7.4 (BldA) [Moles/Vol] 1.23 mmol/L Normal 1.08-1.30 [facility] Comment on above: Order Comment: Speci men Type: ARTERIAL BLOOD SPECIMENOrdering Facility: [facility] Address: [address] [place] [address] Performed By: #### A LLBG ####[facility] [id number] [place] [address] [place] Carboxyhemoglobin (BldA) [Mass fraction] 1.3 % Normal 0.0-2.0 [facility] Comment on above: Order Comment: Speci men Type: ARTERIAL BLOOD SPECIMENOrdering Facility: [facility] Address: [address] [place] [address] Result Comment: Carb oxyhemoglobin Reference Range for Smokers: 2.0-8.0% Performed By: #### A LLBG ####[facility] [id number] [place] [address] [place] CO2 (Bld) [Partial pressure] 62 mm Hg High 36-46 [facility] Comment on above: Order Comment: Speci men Type: ARTERIAL BLOOD SPECIMENOrdering Facility: [facility] Address: [address] [place] [address] Performed By: #### A LLBG ####[facility] [id number] [place] [address] [place] CO2 adjusted to patient's actual temperature (Bld) [Partial pressure] 63 mmHg High 36-46 [facility] Comment on above: Order Comment: Speci men Type: ARTERIAL BLOOD SPECIMENOrdering Facility: [facility] Address: [address] [place] [address] Performed By: #### A LLBG ####[facility] [id number] [place] [address] [place] FIO2 50 % Normal [facility] Comment on above: Order Comment: Speci men Type: ARTERIAL BLOOD SPECIMENOrdering Facility: [facility] Address: [address] [place] [address] Performed By: #### A LLBG ####[facility] [id number] [place] [address] [place] Glucose [Mass/Vol] 115 mg/dL High 60-105 [facility] Comment on above: Order Comment: Speci men Type: ARTERIAL BLOOD SPECIMENOrdering Facility: [facility] Address: [address] [place] [address] Performed By: #### A LLBG ####[facility] [id number] [place] [address] [place] HCO3 (Bld) [Moles/Vol] 34 mmol/L High 22-26 [facility] Comment on above: Order Comment: Speci men Type: ARTERIAL BLOOD SPECIMENOrdering Facility: [facility] Address: [address] [place] [address] Performed By: #### A LLBG ####[facility] LABCLIA [id number] [place] [address] [place] Hematocrit (Bld) [Volume fraction] 33.0 % Low 36.0-46.0 [facility] Comment on above: Order Comment: Speci men Type: ARTERIAL BLOOD SPECIMENOrdering Facility: [facility] Address: [address] [place] [address] Performed By: #### A LLBG ####[facility] LABCLIA [id number] [place] [address] [place] Hemoglobin (Bld) [Mass/Vol] 10.7 g/dL Low 11.5-15.5 [facility] [facility] Comment on above: Order Comment: Speci men Type: ARTERIAL BLOOD SPECIMENOrdering Facility: [facility] Address: [address] [place] [address] Performed By: #### A LLBG ####[facility] [id number] [place] [address] [place] Lactate [Moles/Vol] 1.6 mmol/L Normal 0.5-2.2 [facility] Comment on above: Order Comment: Speci men Type: ARTERIAL BLOOD SPECIMENOrdering Facility: [facility] Address: [address] [place] [address] Performed By: #### A LLBG ####[facility] [id number] [place] [address] [place] Methemoglobin (Bld) [Mass fraction] 1.1 % Normal 0.0-1.5 [facility] Comment on above: Order Comment: Speci men Type: ARTERIAL BLOOD SPECIMENOrdering Facility: [facility] Address: [address] [place] [address] Performed By: #### A LLBG ####[facility] [id number] [place] [address] [place] O2 THERAPY VENT=Ventilator Normal [facility] Comment on above: Order Comment: Speci men Type: ARTERIAL BLOOD SPECIMENOrdering Facility: [facility] Address: [address] [place] [address] Performed By: #### A LLBG ####[facility]CL[facility] [id number] [place] [address] [place] Oxygen (Bld) [Partial pressure] 86 mm Hg Normal 85-95 [facility] Comment on above: Order Comment: Speci men Type: ARTERIAL BLOOD SPECIMENOrdering Facility: [facility] Address: [address] [place] [address] Performed By: #### A LLBG ####[facility]CL[facility] [id number] [place] [address] [place] Oxygen adjusted to patient's actual temperature (Bld) [Partial pressure] 86 mmHg Normal 85-95 [facility] Comment on above: Order Comment: Speci men Type: ARTERIAL BLOOD SPECIMENOrdering Facility: [facility] Address: [address] [place] [address] Performed By: #### A LLBG ####[facility] [id number] [place] [address] [place] Oxyhemoglobin (BldA) [Mass fraction] 95 % Normal 95-98 [facility] Comment on above: Order Comment: Speci men Type: ARTERIAL BLOOD SPECIMENOrdering Facility: [facility] Address: [address] [place] [address] Performed By: #### A LLBG ####[facility] [id number] [place] [address] [place] PEEP/CPAP 10 cmH2O Normal [facility] Comment on above: Order Comment: Speci men Type: ARTERIAL BLOOD SPECIMENOrdering Facility: [facility] Address: [address] [place] [address] Performed By: #### A LLBG ####[facility] [id number] [place] [address] [place] pH (Bld) 7.35 [pH] Normal 7.35-7.45 [facility] Comment on above: Order Comment: Speci men Type: ARTERIAL BLOOD SPECIMENOrdering Facility: [facility] Address: [address] [place] [address] Performed By: #### A LLBG ####[facility] [id number] [place] [address] [place] pH adjusted to patient's actual temperature (Bld) 7.35 Normal 7.35-7.45 [facility] Comment on above: Order Comment: Speci men Type: ARTERIAL BLOOD SPECIMENOrdering Facility: [facility] Address: [address] [place] [address] Performed By: #### A LLBG ####[facility] [id number] [place] [address] [place] PO2 / FIO2 RATIO 172 mmHg Low >[address] [facility] Comment on above: Order Comment: Speci men Type: ARTERIAL BLOOD SPECIMENOrdering Facility: [facility] Address: [address] [place] [address] Performed By: #### A LLBG ####[facility] [id number] [place] [address] [place] Potassium [Moles/Vol] 4.5 mmol/L Normal 3.7-5.1 [facility] Comment on above: Order Comment: Speci men Type: ARTERIAL BLOOD SPECIMENOrdering Facility: [facility] Address: [address] [place] [address] Performed By: #### A LLBG ####[facility] [id number] [place] [address] [place] Order Comment: Speci men Type: BLOOD SPECIMENOrdering Facility: [facility] Address: [address] [place] [address] Performed By: #### 2 4321-2, 96394-7 ####[facility] [id number] [place] [address] [place] Sodium [Moles/Vol] 140 mmol/L Normal 136-144 [facility] Comment on above: Order Comment: Speci men Type: ARTERIAL BLOOD SPECIMENOrdering Facility: [facility] Address: [address] [place] [address] Performed By: #### A LLBG ####[facility] [id number] [place] [address] [place] Base excess Calc (Bld) [Moles/Vol] 8 mmol/L High 0-2 [facility] Comment on above: Order Comment: Speci men Type: ARTERIAL BLOOD SPECIMENOrdering Facility: [facility] Address: [address] [place] [address] Performed By: #### A LLBG ####[facility] [id number] [place] [address] [place] Body temperature 98.42 [degF] Normal [facility] Comment on above: Order Comment: Speci men Type: ARTERIAL BLOOD SPECIMENOrdering Facility: [facility] Address: [address] [place] [address] Performed By: #### A LLBG ####[facility] [id number] [place] [address] [place] Calcium.ionized (Bld) [Mass/Vol] 1.23 mmol/L Normal 1.08-1.30 [facility] Comment on above: Order Comment: Speci men Type: ARTERIAL BLOOD SPECIMENOrdering Facility: [facility] Address: [address] [place] [address] Performed By: #### A LLBG ####[facility] [id number] [place] [address] [place] Calcium.ionized adjusted to pH 7.4 (BldA) [Moles/Vol] 1.21 mmol/L Normal 1.08-1.30 [facility] Comment on above: Order Comment: Speci men Type: ARTERIAL BLOOD SPECIMENOrdering Facility: [facility] Address: [address] [place] [address] Performed By: #### A LLBG ####[facility] [id number] [place] [address] [place] Carboxyhemoglobin (BldA) [Mass fraction] 1.0 % Normal 0.0-2.0 [facility] Comment on above: Order Comment: Speci men Type: ARTERIAL BLOOD SPECIMENOrdering Facility: [facility] Address: [address] [place] [address] Result Comment: Carb oxyhemoglobin Reference Range for Smokers: 2.0-8.0% Performed By: #### A LLBG ####[facility] [id number] [place] [address] [place] CO2 (Bld) [Partial pressure] 62 mm Hg High 36-46 [facility] Comment on above: Order Comment: Speci men Type: ARTERIAL BLOOD SPECIMENOrdering Facility: [facility] Address: [address] [place] [address] Performed By: #### A LLBG ####[facility] [id number] [place] [address] [place] CO2 adjusted to patient's actual temperature (Bld) [Partial pressure] 62 mmHg High 36-46 [facility] Comment on above: Order Comment: Speci men Type: ARTERIAL BLOOD SPECIMENOrdering Facility: [facility] Address: [address] [place] [address] Performed By: #### A LLBG ####[facility] [id number] [place] [address] [place] FIO2 50 % Normal [facility] Comment on above: Order Comment: Speci men Type: ARTERIAL BLOOD SPECIMENOrdering Facility: [facility] Address: [address] [place] [address] Performed By: #### A LLBG ####[facility] [id number] [place] [address] [place] Glucose [Mass/Vol] 151 mg/dL High 60-105 [facility] Comment on above: Order Comment: Speci men Type: ARTERIAL BLOOD SPECIMENOrdering Facility: [facility] Address: [address] [place] [address] Performed By: #### A LLBG ####[facility]CL[facility] [id number] [place] [id number] [address] [place] HCO3 (Bld) [Moles/Vol] 35 mmol/L High 22-26 [facility] Comment on above: Order Comment: Speci men Type: ARTERIAL BLOOD SPECIMENOrdering Facility: [facility] Address: [address] [place] [address] Performed By: #### A LLBG ####[facility] [id number] [place] [address] [place] Hematocrit (Bld) [Volume fraction] 34.0 % Low 36.0-46.0 [facility] Comment on above: Order Comment: Speci men Type: ARTERIAL BLOOD SPECIMENOrdering Facility: [facility] Address: [address] [place] [address] Performed By: #### A LLBG ####[facility] [id number] [place] [address] [place] Hemoglobin (Bld) [Mass/Vol] 11.0 g/dL Low 11.5-15.5 [facility] Comment on above: Order Comment: Speci men Type: ARTERIAL BLOOD SPECIMENOrdering Facility: [facility] Address: [address] [place] [address] Performed By: #### A LLBG ####[facility] [id number] [place] [address] [place] Lactate [Moles/Vol] 1.7 mmol/L Normal 0.5-2.2 [facility] Comment on above: Order Comment: Speci men Type: ARTERIAL BLOOD SPECIMENOrdering Facility: [facility] Address: [address] [place] [address] Performed By: #### A LLBG ####[facility] [id number] [place] [address] [place] Methemoglobin (Bld) [Mass fraction] 0.6 % Normal 0.0-1.5 [facility] Comment on above: Order Comment: Speci men Type: ARTERIAL BLOOD SPECIMENOrdering Facility: [facility] Address: [address] [id number] Performed By: #### A LLBG ####[facility] [id number] [place] [address] [place] O2 THERAPY VENT=Ventilator Normal [facility] Comment on above: Order Comment: Speci men Type: ARTERIAL BLOOD SPECIMENOrdering Facility: [facility] Address: [address] [id number] Performed By: #### A LLBG ####[facility] [id number] [place] [address] [place] Oxygen (Bld) [Partial pressure] 88 mm Hg Normal 85-95 [facility] Comment on above: Order Comment: Speci men Type: ARTERIAL BLOOD SPECIMENOrdering Facility: [facility] Address: [address] [place] [address] Performed By: #### A LLBG ####[facility] [id number] [place] [address] [place] Oxygen adjusted to patient's actual temperature (Bld) [Partial pressure] 87 mmHg Normal 85-95 [facility] Comment on above: Order Comment: Speci men Type: ARTERIAL BLOOD SPECIMENOrdering Facility: [facility] Address: [address] [id number] Performed By: #### A LLBG ####[facility] [id number] [place] [id number] [place] Oxyhemoglobin (BldA) [Mass fraction] 96 % Normal 95-98 [facility] Comment on above: Order Comment: Speci men Type: ARTERIAL BLOOD SPECIMENOrdering Facility: [facility] Address: [address] [id number] Performed By: #### A LLBG ####[facility] [id number] [place] [id number] [place] PEEP/CPAP 10 cmH2O Normal [facility] Comment on above: Order Comment: Speci men Type: ARTERIAL BLOOD SPECIMENOrdering Facility: [facility] Address: [address] [place] [address] Performed By: #### A LLBG ####[facility] [id number] [place] [address] [place] pH (Bld) 7.37 [pH] Normal 7.35-7.45 [facility] Comment on above: Order Comment: Speci men Type: ARTERIAL BLOOD SPECIMENOrdering Facility: [facility] Address: [address] [place] [address] Performed By: #### A LLBG ####[facility] [id number] [place] [address] [place] pH adjusted to patient's actual temperature (Bld) 7.37 Normal 7.35-7.45 [facility] Comment on above: Order Comment: Speci men Type: ARTERIAL BLOOD SPECIMENOrdering Facility: [facility] Address: [address] [place] [address] Performed By: #### A LLBG ####[facility] [id number] [place] [address] [place] PO2 / FIO2 RATIO 176 mmHg Low >[address] [facility] Comment on above: Order Comment: Speci men Type: ARTERIAL BLOOD SPECIMENOrdering Facility: [facility] Address: [address] [place] [address] Performed By: #### A LLBG ####[facility] [id number] [place] [address] [place] Potassium [Moles/Vol] 4.3 mmol/L Normal 3.5-5.0 [facility] Comment on above: Order Comment: Speci men Type: ARTERIAL BLOOD SPECIMENOrdering Facility: [facility] Address: [address] [place] [address] Performed By: #### A LLBG ####[facility] [id number] [place] [address] [place] Sodium [Moles/Vol] 137 mmol/L Normal 136-144 [facility] Comment on above: Order Comment: Speci men Type: ARTERIAL BLOOD SPECIMENOrdering Facility: [facility] Address: [address] [place] [address] Performed By: #### A LLBG ####[facility] [id number] [place] [address] [place] Base excess Calc (Bld) [Moles/Vol] 7 mmol/L High 0-2 [facility] Comment on above: Order Comment: Speci men Type: ARTERIAL BLOOD SPECIMENOrdering Facility: [facility] Address: [address] [place] [address] Performed By: #### A LLBG ####[facility] [id number] [place] [address] [place] Body temperature 97.88 [degF] Normal [facility] Comment on above: Order Comment: Speci men Type: ARTERIAL BLOOD SPECIMENOrdering Facility: [facility] Address: [address] [place] [address] Performed By: #### A LLBG ####[facility] [id number] [place] [address] [place] Calcium.ionized (Bld) [Mass/Vol] 1.23 mmol/L Normal 1.08-1.30 [facility] Comment on above: Order Comment: Speci men Type: ARTERIAL BLOOD SPECIMENOrdering Facility: [facility] Address: [address] [place] [address] Performed By: #### A LLBG ####[facility] [id number] [place] [address] [place] Calcium.ionized adjusted to pH 7.4 (BldA) [Moles/Vol] 1.22 mmol/L Normal 1.08-1.30 [facility] Comment on above: Order Comment: Speci men Type: ARTERIAL BLOOD SPECIMENOrdering Facility: [facility] Address: [address] [place] [address] Performed By: #### A LLBG ####[facility] [id number] [address] [address] [place] Carboxyhemoglobin (BldA) [Mass fraction] 1.2 % Normal 0.0-2.0 [facility] Comment on above: Order Comment: Speci men Type: ARTERIAL BLOOD SPECIMENOrdering Facility: [facility] Address: [address] [place] [address] Performed By: #### A LLBG ####[facility] [id number] [place] [address] [place] CO2 (Bld) [Partial pressure] 55 mm Hg High 36-46 [facility] Comment on above: Order Comment: Speci men Type: ARTERIAL BLOOD SPECIMENOrdering Facility: [facility] Address: [address] [place] [address] Performed By: #### A LLBG ####[facility] [id number] [place] [address] [place] CO2 adjusted to patient's actual temperature (Bld) [Partial pressure] 54 mmHg High 36-46 [facility] Comment on above: Order Comment: Speci men Type: ARTERIAL BLOOD SPECIMENOrdering Facility: [facility] Address: [address] [place] [address] Performed By: #### A LLBG ####[facility] [id number] [place] [address] [place] FIO2 40 % Normal [facility] Comment on above: Order Comment: Speci men Type: ARTERIAL BLOOD SPECIMENOrdering Facility: [facility] Address: [address] [place], [place] [id number] Performed By: #### A LLBG ####[facility] [id number] [place] [address] [place] Glucose [Mass/Vol] 149 mg/dL High 60-105 [facility] Comment on above: Order Comment: Speci men Type: ARTERIAL BLOOD SPECIMENOrdering Facility: [facility] Address: [address] [place] [address] Performed By: #### A LLBG ####[facility] [id number] [place] [address] [place] HCO3 (Bld) [Moles/Vol] 33 mmol/L High 22-26 [facility] Comment on above: Order Comment: Speci men Type: ARTERIAL BLOOD SPECIMENOrdering Facility: [facility] Address: [address] [place] [address] Performed By: #### A LLBG ####[facility] [id number] [place] [address] [place] Hematocrit (Bld) [Volume fraction] 33.6 % Low 36.0-46.0 [facility] Comment on above: Order Comment: Speci men Type: ARTERIAL BLOOD SPECIMENOrdering Facility: [facility] Address: [address] [place] [address] Performed By: #### A LLBG ####[facility] [id number] [place] [address] [place] Hemoglobin (Bld) [Mass/Vol] 10.9 g/dL Low 11.5-15.5 [facility] Comment on above: Order Comment: Speci men Type: ARTERIAL BLOOD SPECIMENOrdering Facility: [facility] Address: [address] [place] [address] Performed By: #### A LLBG ####[facility] [id number] [place] [address] [place] Lactate [Moles/Vol] 1.6 mmol/L Normal 0.5-2.2 [facility] Comment on above: Order Comment: Speci men Type: ARTERIAL BLOOD SPECIMENOrdering Facility: [facility] Address: [address] [place] [address] Performed By: #### A LLBG ####[facility] [id number] [address] [address] [place] Methemoglobin (Bld) [Mass fraction] 1.1 % Normal 0.0-1.5 [facility] Comment on above: Order Comment: Speci men Type: ARTERIAL BLOOD SPECIMENOrdering Facility: [facility] Address: [address] [id number] Performed By: #### A LLBG ####[facility] [id number] [place] [address] [place] O2 THERAPY VENT=Ventilator Normal [facility] Comment on above: Order Comment: Speci men Type: ARTERIAL BLOOD SPECIMENOrdering Facility: [facility] Address: [address] [id number] Performed By: #### A LLBG ####[facility] [id number] [place] [id number] [place] Oxygen (Bld) [Partial pressure] 70 mm Hg Low 85-95 [facility] Comment on above: Order Comment: Speci men Type: ARTERIAL BLOOD SPECIMENOrdering Facility: [facility] Address: [address] [place] [address] Performed By: #### A LLBG ####[facility] [id number] [address] [address] [place] Oxygen adjusted to patient's actual temperature (Bld) [Partial pressure] 68 mmHg Low 85-95 [facility] Comment on above: Order Comment: Speci men Type: ARTERIAL BLOOD SPECIMENOrdering Facility: [facility] Address: [address] [place] [address] Performed By: #### A LLBG ####[facility] [id number] [address] [address] [place] Oxyhemoglobin (BldA) [Mass fraction] 92 % Low 95-98 [facility] Comment on above: Order Comment: Speci men Type: ARTERIAL BLOOD SPECIMENOrdering Facility: [facility] Address: [address] [place] [address] Performed By: #### A LLBG ####[facility] [id number] [place] [address] [place] PEEP/CPAP 10 cmH2O Normal [facility] Comment on above: Order Comment: Speci men Type: ARTERIAL BLOOD SPECIMENOrdering Facility: [facility] Address: [address] [place] [address] Performed By: #### A LLBG ####[facility] [id number] [place] [address] [place] pH (Bld) 7.39 [pH] Normal 7.35-7.45 [facility] Comment on above: Order Comment: Speci men Type: ARTERIAL BLOOD SPECIMENOrdering Facility: [facility] Address: [address] [place] [address] Performed By: #### A LLBG ####[facility] [id number] [place] [address] [place] pH adjusted to patient's actual temperature (Bld) 7.40 Normal 7.35-7.45 [facility] Comment on above: Order Comment: Speci men Type: ARTERIAL BLOOD SPECIMENOrdering Facility: [facility] Address: [address] [place] [address] Performed By: #### A LLBG ####[facility] [id number] [place] [address] [place] PO2 / FIO2 RATIO 175 mmHg Low >[address] [facility] Comment on above: Order Comment: Speci men Type: ARTERIAL BLOOD SPECIMENOrdering Facility: [facility] Address: [address] [place] [address] Performed By: #### A LLBG ####[facility] [id number] [place] [address] [place] Potassium [Moles/Vol] 4.5 mmol/L Normal 3.5-5.0 [facility] Comment on above: Order Comment: Speci men Type: ARTERIAL BLOOD SPECIMENOrdering Facility: [facility] Address: [address] [place] [address] Performed By: #### A LLBG ####[facility] [id number] [place] [address] [place] Sodium [Moles/Vol] 137 mmol/L Normal 136-144 [facility] Comment on above: Order Comment: Speci men Type: ARTERIAL BLOOD SPECIMENOrdering Facility: [facility] Address: [address] [place] [address] Performed By: #### A LLBG ####[facility] [id number] [place] [address] [place] Base excess Calc (Bld) [Moles/Vol] 7 mmol/L High 0-2 [facility] Comment on above: Order Comment: Speci men Type: ARTERIAL BLOOD SPECIMENOrdering Facility: [facility] Address: [address] [place] [address] Performed By: #### A LLBG ####[facility] [id number] [place] [address] [place] Body temperature 99.32 [degF] Normal [facility] Comment on above: Order Comment: Speci men Type: ARTERIAL BLOOD SPECIMENOrdering Facility: [facility] Address: [address] [place] [address] Performed By: #### A LLBG ####[facility] [id number] [place] [address] [place] Calcium.ionized (Bld) [Mass/Vol] 1.30 mmol/L Normal 1.08-1.30 [facility] Comment on above: Order Comment: Speci men Type: ARTERIAL BLOOD SPECIMENOrdering Facility: [facility] Address: [address] [place] [address] Performed By: #### A LLBG ####[facility] [id number] [place] [address] [place] Calcium.ionized adjusted to pH 7.4 (BldA) [Moles/Vol] 1.29 mmol/L Normal 1.08-1.30 [facility] Comment on above: Order Comment: Speci men Type: ARTERIAL BLOOD SPECIMENOrdering Facility: [facility] Address: [address] [place] [address] Performed By: #### A LLBG ####[facility] [id number] [place] [address] [place] Carboxyhemoglobin (BldA) [Mass fraction] 1.0 % Normal 0.0-2.0 [facility] [facility] Comment on above: Order Comment: Speci men Type: ARTERIAL BLOOD SPECIMENOrdering Facility: [facility] Address: [address] [place] [address] Result Comment: Carb oxyhemoglobin Reference Range for Smokers: 2.0-8.0% Performed By: #### A LLBG ####[facility] LABCLIA [id number] [place] [address] [place] CO2 (Bld) [Partial pressure] 55 mm Hg High 36-46 [facility] Comment on above: Order Comment: Speci men Type: ARTERIAL BLOOD SPECIMENOrdering Facility: [facility] Address: [address] [place] [address] Performed By: #### A LLBG ####[facility]CL[facility] [id number] [place] [address] [place] CO2 adjusted to patient's actual temperature (Bld) [Partial pressure] 56 mmHg High 36-46 [facility] Comment on above: Order Comment: Speci men Type: ARTERIAL BLOOD SPECIMENOrdering Facility: [facility] Address: [address] [place] [address] Performed By: #### A LLBG ####[facility]CL[facility] [id number] [place] [address] [place] FIO2 40 % Normal [facility] Comment on above: Order Comment: Speci men Type: ARTERIAL BLOOD SPECIMENOrdering Facility: [facility] Address: [address] [place] [address] Performed By: #### A LLBG ####[facility]CL[facility] [id number] [place] [address] [place] Glucose [Mass/Vol] 153 mg/dL High 60-105 [facility] Comment on above: Order Comment: Speci men Type: ARTERIAL BLOOD SPECIMENOrdering Facility: [facility] Address: [address] [place] [address] Performed By: #### A LLBG ####[facility]CL[facility] [id number] [place] [address] [place] HCO3 (Bld) [Moles/Vol] 33 mmol/L High 22-26 [facility] Comment on above: Order Comment: Speci men Type: ARTERIAL BLOOD SPECIMENOrdering Facility: [facility] Address: [address] [place] [address] Performed By: #### A LLBG ####[facility]CL[facility] [id number] [place] [address] [place] Hematocrit (Bld) [Volume fraction] 36.1 % Normal 36.0-46.0 [facility] Comment on above: Order Comment: Speci men Type: ARTERIAL BLOOD SPECIMENOrdering Facility: [facility] Address: [address] [place] [address] Performed By: #### A LLBG ####[facility] [id number] [place] [address] [place] Hemoglobin (Bld) [Mass/Vol] 11.7 g/dL Normal 11.5-15.5 [facility] Comment on above: Order Comment: Speci men Type: ARTERIAL BLOOD SPECIMENOrdering Facility: [facility] Address: [address] [place] [address] Performed By: #### A LLBG ####[facility] LABIA [id number] [place] [address] [place] Lactate [Moles/Vol] 1.6 mmol/L Normal 0.5-2.2 [facility] Comment on above: Order Comment: Speci men Type: ARTERIAL BLOOD SPECIMENOrdering Facility: [facility] Address: [address] [place] [address] Performed By: #### A LLBG ####[facility] LABIA [id number] [place] [address] [place] Methemoglobin (Bld) [Mass fraction] 1.3 % Normal 0.0-1.5 [facility] Comment on above: Order Comment: Speci men Type: ARTERIAL BLOOD SPECIMENOrdering Facility: [facility] Address: [address] [place] [address] Performed By: #### A LLBG ####[facility] LABIA [id number] [place] [address] [place] O2 THERAPY VENT=Ventilator Normal [facility] Comment on above: Order Comment: Speci men Type: ARTERIAL BLOOD SPECIMENOrdering Facility: [facility] Address: [address] [place] [address] Performed By: #### A LLBG ####[facility]CL[facility] [id number] [place] [address] [place] Oxygen (Bld) [Partial pressure] 99 mm Hg High 85-95 [facility] Comment on above: Order Comment: Speci men Type: ARTERIAL BLOOD SPECIMENOrdering Facility: [facility] Address: [address] [place] [address] Performed By: #### A LLBG ####[facility]CL[facility] [id number] [place] [address] [place] Oxygen adjusted to patient's actual temperature (Bld) [Partial pressure] 102 mmHg High 85-95 [facility] Comment on above: Order Comment: Speci men Type: ARTERIAL BLOOD SPECIMENOrdering Facility: [facility] Address: [address] [place] [address] Performed By: #### A LLBG ####[facility]CL[facility] [id number] [place] [address] [place] Oxyhemoglobin (BldA) [Mass fraction] 96 % Normal 95-98 [facility] Comment on above: Order Comment: Speci men Type: ARTERIAL BLOOD SPECIMENOrdering Facility: [facility] Address: [address] [place] [address] Performed By: #### A LLBG ####[facility]CL[facility] [id number] [place] [address] [place] PEEP/CPAP 10 cmH2O Normal [facility] Comment on above: Order Comment: Speci men Type: ARTERIAL BLOOD SPECIMENOrdering Facility: [facility] Address: [address] [place] [address] Performed By: #### A LLBG ####[facility]CL[facility] [id number] [place] [address] [place] pH (Bld) 7.39 [pH] Normal 7.35-7.45 [facility] Comment on above: Order Comment: Speci men Type: ARTERIAL BLOOD SPECIMENOrdering Facility: [facility] Address: [address] [place] [address] Performed By: #### A LLBG ####[facility]CL[facility] [id number] [place] [address] [place] pH adjusted to patient's actual temperature (Bld) 7.38 Normal 7.35-7.45 [facility] Comment on above: Order Comment: Speci men Type: ARTERIAL BLOOD SPECIMENOrdering Facility: [facility] Address: [address] [place] [address] Performed By: #### A LLBG ####[facility]CL[facility] [id number] [place] [address] [place] PO2 / FIO2 RATIO 248 mmHg Low >[address] [facility] Comment on above: Order Comment: Speci men Type: ARTERIAL BLOOD SPECIMENOrdering Facility: [facility] Address: [address] [place] [address] Performed By: #### A LLBG ####[facility]CL[facility] [id number] [place] [address] [place] Potassium [Moles/Vol] 4.3 mmol/L Normal 3.5-5.0 [facility] Comment on above: Order Comment: Speci men Type: ARTERIAL BLOOD SPECIMENOrdering Facility: [facility] Address: [address] [place] [address] Performed By: #### A LLBG ####[facility]CL[facility] [id number] [place] [address] [place] Sodium [Moles/Vol] 137 mmol/L Normal 136-144 [facility] Comment on above: Order Comment: Speci men Type: ARTERIAL BLOOD SPECIMENOrdering Facility: [facility] Address: [address] [place] [address] Performed By: #### A LLBG ####[facility]CL[facility] [id number] [place] [address] [place] Base excess Calc (Bld) [Moles/Vol] 8 mmol/L High 0-2 [facility] Comment on above: Order Comment: Speci men Type: ARTERIAL BLOOD SPECIMENOrdering Facility: [facility] Address: [address] [place] [address] Performed By: #### A LLBG ####[facility]CL[facility] [id number] [place] [address] [place] Body temperature 98.78 [degF] Normal [facility] Comment on above: Order Comment: Speci men Type: ARTERIAL BLOOD SPECIMENOrdering Facility: [facility] Address: [address] [place] [address] Performed By: #### A LLBG ####[facility]CL[facility] [id number] [place] [address] [place] Calcium.ionized (Bld) [Mass/Vol] 1.26 mmol/L Normal 1.08-1.30 [facility] Comment on above: Order Comment: Speci men Type: ARTERIAL BLOOD SPECIMENOrdering Facility: [facility] Address: [address] [place] [address] Performed By: #### A LLBG ####[facility]CL[facility] [id number] [place] [address] [place] Calcium.ionized adjusted to pH 7.4 (BldA) [Moles/Vol] 1.27 mmol/L Normal 1.08-1.30 [facility] Comment on above: Order Comment: Speci men Type: ARTERIAL BLOOD SPECIMENOrdering Facility: [facility] Address: [address] [place] [address] Performed By: #### A LLBG ####[facility]CL[facility] [id number] [place] [address] [place] Carboxyhemoglobin (BldA) [Mass fraction] 1.2 % Normal 0.0-2.0 [facility] Comment on above: Order Comment: Speci men Type: ARTERIAL BLOOD SPECIMENOrdering Facility: [facility] Address: [address] [place] [address] Result Comment: Carb oxyhemoglobin Reference Range for Smokers: 2.0-8.0% Performed By: #### A LLBG ####[facility]CL[facility] [id number] [place] [address] [place] CO2 (Bld) [Partial pressure] 54 mm Hg High 36-46 [facility] Comment on above: Order Comment: Speci men Type: ARTERIAL BLOOD SPECIMENOrdering Facility: [facility] Address: [address] [place] [address] Performed By: #### A LLBG ####[facility]CL[facility] [id number] [address] [address] [place] CO2 adjusted to patient's actual temperature (Bld) [Partial pressure] 54 mmHg High 36-46 [facility] Comment on above: Order Comment: Speci men Type: ARTERIAL BLOOD SPECIMENOrdering Facility: [facility] Address: [address] [place] [address] Performed By: #### A LLBG ####[facility]CL[facility] [id number] [place] [address] [place] FIO2 45 % Normal [facility] Comment on above: Order Comment: Speci men Type: ARTERIAL BLOOD SPECIMENOrdering Facility: [facility] Address: [address] [place] [address] Performed By: #### A LLBG ####[facility]CL[facility] [id number] [place] [address] [place] Glucose [Mass/Vol] 147 mg/dL High 60-105 [facility] Comment on above: Order Comment: Speci men Type: ARTERIAL BLOOD SPECIMENOrdering Facility: [facility] Address: [address] [place] [address] Performed By: #### A LLBG ####[facility]CL[facility] [id number] [place] [id number] [place] HCO3 (Bld) [Moles/Vol] 33 mmol/L High 22-26 [facility] Comment on above: Order Comment: Speci men Type: ARTERIAL BLOOD SPECIMENOrdering Facility: [facility] Address: [address] [place] [address] Performed By: #### A LLBG ####[facility]CL[facility] [id number] [place] [address] [place] Hematocrit (Bld) [Volume fraction] 35.7 % Low 36.0-46.0 [facility] Comment on above: Order Comment: Speci men Type: ARTERIAL BLOOD SPECIMENOrdering Facility: [facility] Address: [address] [place] [address] Performed By: #### A LLBG ####[facility]CL[facility] [id number] [place] [address] [place] Hemoglobin (Bld) [Mass/Vol] 11.6 g/dL Normal 11.5-15.5 [facility] Comment on above: Order Comment: Speci men Type: ARTERIAL BLOOD SPECIMENOrdering Facility: [facility] Address: [address] [place] [address] Performed By: #### A LLBG ####[facility]CL[facility] [id number] [place] [address] [place] Lactate [Moles/Vol] 1.6 mmol/L Normal 0.5-2.2 [facility] Comment on above: Order Comment: Speci men Type: ARTERIAL BLOOD SPECIMENOrdering Facility: [facility] Address: [address] [place] [address] Performed By: #### A LLBG ####[facility]CL[facility] [id number] [place] [address] [place] Methemoglobin (Bld) [Mass fraction] 1.6 % High 0.0-1.5 [facility] Comment on above: Order Comment: Speci men Type: ARTERIAL BLOOD SPECIMENOrdering Facility: [facility] Address: [address] [place] [address] Performed By: #### A LLBG ####[facility]CL[facility] [id number] [place] [address] [place] O2 THERAPY VENT=Ventilator Normal [facility] Comment on above: Order Comment: Speci men Type: ARTERIAL BLOOD SPECIMENOrdering Facility: [facility] Address: [address] [place] [address] Performed By: #### A LLBG ####[facility]CL[facility] [id number] [place] [address] [place] Oxygen (Bld) [Partial pressure] 79 mm Hg Low 85-95 [facility] Comment on above: Order Comment: Speci men Type: ARTERIAL BLOOD SPECIMENOrdering Facility: [facility] Address: [address] [place] [address] Performed By: #### A LLBG ####[facility]CL[facility] [id number] [place] [address] [place] Oxygen adjusted to patient's actual temperature (Bld) [Partial pressure] 79 mmHg Low 85-95 [facility] Comment on above: Order Comment: Speci men Type: ARTERIAL BLOOD SPECIMENOrdering Facility: [facility] Address: [address] [place] [address] Performed By: #### A LLBG ####[facility]CL[facility] [id number] [place] [address] [place] Oxyhemoglobin (BldA) [Mass fraction] 94 % Low 95-98 [facility] Comment on above: Order Comment: Speci men Type: ARTERIAL BLOOD SPECIMENOrdering Facility: [facility] Address: [address] [place] [address] Performed By: #### A LLBG ####[facility]CL[facility] [id number] [place] [address] [place] PEEP/CPAP 10 cmH2O Normal [facility] Comment on above: Order Comment: Speci men Type: ARTERIAL BLOOD SPECIMENOrdering Facility: [facility] Address: [address] [place] [address] Performed By: #### A LLBG ####[facility]CLIA [id number] [id number] [address] [place] pH (Bld) 7.41 [pH] Normal 7.35-7.45 [facility] Comment on above: Order Comment: Speci men Type: ARTERIAL BLOOD SPECIMENOrdering Facility: [facility] Address: [address] [place] [address] Performed By: #### A LLBG ####[facility]CL[facility] [id number] [place] [address] [place] pH adjusted to patient's actual temperature (Bld) 7.41 Normal 7.35-7.45 [facility] Comment on above: Order Comment: Speci men Type: ARTERIAL BLOOD SPECIMENOrdering Facility: [facility] Address: [address] [place] [address] Performed By: #### A LLBG ####[facility]CLIA [id number] [place] [address] [place] PO2 / FIO2 RATIO 176 mmHg Low >[address] [facility] Comment on above: Order Comment: Speci men Type: ARTERIAL BLOOD SPECIMENOrdering Facility: [facility] Address: [address] [place] [address] Performed By: #### A LLBG ####[facility]CL[facility] [id number] [place] [address] [place] Potassium [Moles/Vol] 4.0 mmol/L Normal 3.5-5.0 [facility] Comment on above: Order Comment: Speci men Type: ARTERIAL BLOOD SPECIMENOrdering Facility: [facility] Address: [address] [place] [address] Performed By: #### A LLBG ####[facility]CL[facility] [id number] [place] [address] [place] Sodium [Moles/Vol] 138 mmol/L Normal 136-144 [facility] Comment on above: Order Comment: Speci men Type: ARTERIAL BLOOD SPECIMENOrdering Facility: [facility] Address: [address] [place] [address] Performed By: #### A LLBG ####[facility]CL[facility] [id number] [place] [address] [place] Base excess Calc (Bld) [Moles/Vol] 7 mmol/L High 0-2 [facility] Comment on above: Order Comment: Speci men Type: ARTERIAL BLOOD SPECIMENOrdering Facility: [facility] Address: [address] [place] [address] Performed By: #### A LLBG ####[facility] LABIA [id number] [place] [address] [place] Body temperature 98.42 [degF] Normal [facility] Comment on above: Order Comment: Speci men Type: ARTERIAL BLOOD SPECIMENOrdering Facility: [facility] Address: [address] [place] [address] Performed By: #### A LLBG ####[facility] LABIA [id number] [place] [address] [place] Calcium.ionized (Bld) [Mass/Vol] 1.26 mmol/L Normal 1.08-1.30 [facility] Comment on above: Order Comment: Speci men Type: ARTERIAL BLOOD SPECIMENOrdering Facility: [facility] Address: [address] [place] [address] Performed By: #### A LLBG ####[facility] LABIA [id number] [place] [address] [place] Calcium.ionized adjusted to pH 7.4 (BldA) [Moles/Vol] 1.26 mmol/L Normal 1.08-1.30 [facility] Comment on above: Order Comment: Speci men Type: ARTERIAL BLOOD SPECIMENOrdering Facility: [facility] Address: [address] [place] [address] Performed By: #### A LLBG ####[facility]IA [id number] [place] [address] [place] Carboxyhemoglobin (BldA) [Mass fraction] 0.6 % Normal 0.0-2.0 [facility] Comment on above: Order Comment: Speci men Type: ARTERIAL BLOOD SPECIMENOrdering Facility: [facility] Address: [address] [place] [address] Result Comment: Carb oxyhemoglobin Reference Range for Smokers: 2.0-8.0% Performed By: #### A LLBG ####[facility]CL[facility] [id number] [place] [address] [place] CO2 (Bld) [Partial pressure] 52 mm Hg High 36-46 [facility] Comment on above: Order Comment: Speci men Type: ARTERIAL BLOOD SPECIMENOrdering Facility: [facility] Address: [address] [place] [address] Performed By: #### A LLBG ####[facility]CL[facility] [id number] [address] [place] CO2 adjusted to patient's actual temperature (Bld) [Partial pressure] 52 mmHg High 36-46 [facility] Comment on above: Order Comment: Speci men Type: ARTERIAL BLOOD SPECIMENOrdering Facility: [facility] Address: [address] [place] [address] Performed By: #### A LLBG ####[facility]CL[facility] [id number] [place] [address] [place] FIO2 45 % Normal [facility] Comment on above: Order Comment: Speci men Type: ARTERIAL BLOOD SPECIMENOrdering Facility: [facility] Address: [address] [place] [address] Performed By: #### A LLBG ####[facility]CL[facility] [id number] [place] [address] [place] Glucose [Mass/Vol] 155 mg/dL High 60-105 [facility] Comment on above: Order Comment: Speci men Type: ARTERIAL BLOOD SPECIMENOrdering Facility: [facility] Address: [address] [place] [address] Performed By: #### A LLBG ####[facility]CL[facility] [id number] [place] [address] [place] HCO3 (Bld) [Moles/Vol] 32 mmol/L High 22-26 [facility] Comment on above: Order Comment: Speci men Type: ARTERIAL BLOOD SPECIMENOrdering Facility: [facility] Address: [address] [place] [address] Performed By: #### A LLBG ####[facility]CL[facility] [id number] [place] [address] [place] Hematocrit (Bld) [Volume fraction] 36.7 % Normal 36.0-46.0 [facility] Comment on above: Order Comment: Speci men Type: ARTERIAL BLOOD SPECIMENOrdering Facility: [facility] Address: [address] [place] [address] Performed By: #### A LLBG ####[facility]CL[facility] [id number] [place] [address] [place] Hemoglobin (Bld) [Mass/Vol] 11.9 g/dL Normal 11.5-15.5 [facility] Comment on above: Order Comment: Speci men Type: ARTERIAL BLOOD SPECIMENOrdering Facility: [facility] Address: [address] [place] [address] Performed By: #### A LLBG ####[facility]CL[facility] [id number] [place] [address] [place] Lactate [Moles/Vol] 1.8 mmol/L Normal 0.5-2.2 [facility] Comment on above: Order Comment: Speci men Type: ARTERIAL BLOOD SPECIMENOrdering Facility: [facility] Address: [address] [place] [address] Performed By: #### A LLBG ####[facility]CL[facility] [id number] [id number] [address] [place] Methemoglobin (Bld) [Mass fraction] 1.0 % Normal 0.0-1.5 [facility] Comment on above: Order Comment: Speci men Type: ARTERIAL BLOOD SPECIMENOrdering Facility: [facility] Address: [address] [place] [id number] Performed By: #### A LLBG ####[facility]CL[facility] [id number] [place] [id number] [place] O2 THERAPY VENT=Ventilator Normal [facility] Comment on above: Order Comment: Speci men Type: ARTERIAL BLOOD SPECIMENOrdering Facility: [facility] Address: [address] [place] [id number] Performed By: #### A LLBG ####[facility]CL[facility] [id number] [place] [id number] [place] Oxygen (Bld) [Partial pressure] 78 mm Hg Low 85-95 [facility] Comment on above: Order Comment: Speci men Type: ARTERIAL BLOOD SPECIMENOrdering Facility: [facility] Address: [address] [place] [id number] Performed By: #### A LLBG ####[facility] [id number] [place] [id number] [place] Oxygen adjusted to patient's actual temperature (Bld) [Partial pressure] 78 mmHg Low 85-95 [facility] Comment on above: Order Comment: Speci men Type: ARTERIAL BLOOD SPECIMENOrdering Facility: [facility] Address: [address] [place] [address] Performed By: #### A LLBG ####[facility] [id number] [place] [id number] [place] Oxyhemoglobin (BldA) [Mass fraction] 95 % Normal 95-98 [facility] Comment on above: Order Comment: Speci men Type: ARTERIAL BLOOD SPECIMENOrdering Facility: [facility] Address: [address] [place] [id number] Performed By: #### A LLBG ####[facility]CL[facility] [id number] [place] [address] [place] PEEP/CPAP 10 cmH2O Normal [facility] Comment on above: Order Comment: Speci men Type: ARTERIAL BLOOD SPECIMENOrdering Facility: [facility] Address: [address] [place] [address] Performed By: #### A LLBG ####[facility]CL[facility] [id number] [place] [address] [place] pH (Bld) 7.41 [pH] Normal 7.35-7.45 [facility] Comment on above: Order Comment: Speci men Type: ARTERIAL BLOOD SPECIMENOrdering Facility: [facility] Address: [address] [place] [address] Performed By: #### A LLBG ####[facility]CL[facility] [id number] [address] [place] pH adjusted to patient's actual temperature (Bld) 7.41 Normal 7.35-7.45 [facility] Comment on above: Order Comment: Speci men Type: ARTERIAL BLOOD SPECIMENOrdering Facility: [facility] Address: [address] [place] [address] Performed By: #### A LLBG ####[facility] [id number] [place] [address] [place] PO2 / FIO2 RATIO 173 mmHg Low >[address] [facility] Comment on above: Order Comment: Speci men Type: ARTERIAL BLOOD SPECIMENOrdering Facility: [facility] Address: [address] [place] [address] Performed By: #### A LLBG ####[facility] [id number] [place] [address] [place] Potassium [Moles/Vol] 4.0 mmol/L Normal 3.5-5.0 [facility] Comment on above: Order Comment: Speci men Type: ARTERIAL BLOOD SPECIMENOrdering Facility: [facility] Address: [address] [id number] Performed By: #### A LLBG ####[facility] [id number] [place] [id number] [place] Sodium [Moles/Vol] 137 mmol/L Normal 136-144 [facility] Comment on above: Order Comment: Speci men Type: ARTERIAL BLOOD SPECIMENOrdering Facility: [facility] Address: [address] [place] [address] Performed By: #### A LLBG ####[facility] LABIA [id number] [place] [address] [place] Basic metabolic 2000 panelon 09-03-2024 Anion gap [Moles/Vol] 10 mmol/L Normal 8-15 [facility] Comment on above: Order Comment: Speci men Type: BLOOD SPECIMENOrdering Facility: [facility] Address: [address] [place] [address] Performed By: #### 2 4321-2, ####[facility] LABIA [id number] [place] [address] [place] Calcium [Mass/Vol] 8.8 mg/dL Normal 8.5-10.2 [facility] Comment on above: Order Comment: Speci men Type: BLOOD SPECIMENOrdering Facility: [facility] Address: [address] [id number] Performed By: #### 2 4321-2, 07228-5 ####[facility] LABIA [id number] [place] [id number] [place] Chloride [Moles/Vol] 97 mmol/L Low 98-107 [facility] Comment on above: Order Comment: Speci men Type: BLOOD SPECIMENOrdering Facility: [facility] Address: [address] [place], [place] [id number] Performed By: #### 2 4320-09, ####[facility] LABIA [id number] [place] [address] [place] CO2 [Moles/Vol] 31 mmol/L High 22-30 [facility] Comment on above: Order Comment: Speci men Type: BLOOD SPECIMENOrdering Facility: [facility] Address: [address] [place] [address] Performed By: #### 2 4320-09, ####[facility] LABIA [id number] [place] [address] [place] Creatinine [Mass/Vol] 0.85 mg/dL Normal 0.58-0.96 [facility] Comment on above: Order Comment: Speci men Type: BLOOD SPECIMENOrdering Facility: [facility] Address: [address] [place] [address] Performed By: #### 2 4320-09, ####[facility] [id number] [place] [address] [place] Creatinine and Glomerular filtration rate.predicted panel (S/P/Bld) 82 mL/min/1.73m??? Normal >=60 [facility] Comment on above: Order Comment: Speci men Type: BLOOD SPECIMENOrdering Facility: [facility] Address: [address] [place] [address] Result Comment: Anna mated Glomerular Filtration Rate (eGFR) is calculated using the 2020 CKD-EPI creatinine equation. This equation utilizes serum creatinine, sex, and age as parameters. The creatinine assay has traceable calibration to isotope dilution-mass spectrometry. Refer to KDIGO guidelines for clinical interpretation. In patients with unstable renal function, e.g. those with acute kidney injury, the eGFR may not accurately reflect actual GFR. Performed By: #### 2 4322, ####[facility] LABIA [id number] [place] [address] [place] Glucose [Mass/Vol] 110 mg/dL High 74-99 [facility] Comment on above: Order Comment: Speci men Type: BLOOD SPECIMENOrdering Facility: [facility] Address: [address] [place] [address] Result Comment: The [place] [employer] (ADA) provides guidance for cutoff values for fasting glucose and random glucose. The ADA defines fasting as no caloric intake for at least 8 hours. Fasting plasma glucose results between 100 to 125 mg/dL indicate increased risk for diabetes (prediabetes).Fasting plasma glucose results greater than or equal to 126 mg/dL meet the criteria for diagnosis of diabetes. In the absence of unequivocal hyperglycemia, results should be confirmed by repeat testing. In a patient with classic symptoms of hyperglycemia or hyperglycemic crisis, random plasma glucose results greater than or equal to 200 mg/dL meet the criteria for diagnosis of diabetes.Reference: Standards of Medical Care in Diabetes 2016, [place] [employer]. Diabetes Care. 2016.39(Suppl 1). Performed By: #### 2 4320-09, ####[facility]CL[facility] [id number] [place] [address] [place] Sodium [Moles/Vol] 138 mmol/L Normal 136-144 [facility] Comment on above: Order Comment: Jet otto Type: BLOOD SPECIMENOrdering Facility: [facility] Address: [address] [place] [address] Performed By: #### 2 4320-09, ####[facility]CL[facility] [id number] [place] [address] [place] Urea nitrogen [Mass/Vol] 19 mg/dL Normal 7-21 [facility] Comment on above: Order Comment: Speci men Type: BLOOD SPECIMENOrdering Facility: [facility] Address: [address] [place] [address] Performed By: #### 2 4320-09, ####[facility] [id number] [place] [address] [place] CBC panel Auto (Bld)on 01-24 -2025 Erythrocyte distribution width (RBC) [Ratio] 13.0 % Normal 11.5-15.0 [facility] Comment on above: Order Comment: Speci men Type: BLOOD SPECIMENOrdering Facility: [facility] Address: [address] [place] [address] Performed By: #### 5 8410-2 ####[facility] LABIA [id number] [place] [address] [place] Hematocrit (Bld) [Volume fraction] 33.6 % Low 36.0-46.0 [facility] Comment on above: Order Comment: Speci men Type: BLOOD SPECIMENOrdering Facility: [facility] Address: [address] [place] [address] Performed By: #### 5 8410-2 ####[facility] LABIA [id number] [place] [address] [place] Hemoglobin (Bld) [Mass/Vol] 10.9 g/dL Low 11.5-15.5 [facility] Comment on above: Order Comment: Speci men Type: BLOOD SPECIMENOrdering Facility: [facility] Address: [address] [place] [address] Performed By: #### 5 8410-2 ####[facility] LABIA [id number] [place] [address] [place] MCH (RBC) [Entitic mass] 29.1 pg Normal 26.0-34.0 [facility] Comment on above: Order Comment: Speci men Type: BLOOD SPECIMENOrdering Facility: [facility] Address: [address] [place] [address] Performed By: #### 5 8410-2 ####[facility]CL[facility] [id number] [place] [address] [place] MCHC (RBC) [Mass/Vol] 32.4 g/dL Normal 30.5-36.0 [facility] Comment on above: Order Comment: Speci men Type: BLOOD SPECIMENOrdering Facility: [facility] Address: [address] [place] [address] Performed By: #### 5 8410-2 ####[facility]CL[facility] [id number] [place] [address] [place] MCV (RBC) [Entitic vol] 89.6 fL Normal 80.0-100.0 [facility] Comment on above: Order Comment: Speci men Type: BLOOD SPECIMENOrdering Facility: [facility] Address: [address] [place] [address] Performed By: #### 5 8410-2 ####[facility]CL[facility] [id number] [place] [address] [place] Nucleated RBC (Bld) [#/Vol] 10*3/uL Normal <0.01 [facility] Comment on above: Order Comment: Speci men Type: BLOOD SPECIMENOrdering Facility: [facility] Address: [address] [place] [address] Performed By: #### 5 8410-2 ####[facility]CL[facility] [id number] [place] [address] [place] Platelet mean volume (Bld) [Entitic vol] 10.3 fL Normal 9.0-12.7 [facility] Comment on above: Order Comment: Speci men Type: BLOOD SPECIMENOrdering Facility: [facility] Address: [address] [place] [address] Performed By: #### 5 8410-2 ####[facility]CL[facility] [id number] [place] [address] [place] Platelets (Bld) [#/Vol] 242 10*3/uL Normal 150-400 [facility] Comment on above: Order Comment: Speci men Type: BLOOD SPECIMENOrdering Facility: [facility] Address: [address] [place] [address] Performed By: #### 5 8410-2 ####[facility]CL[facility] [id number] [place] [address] [place] RBC (Bld) [#/Vol] 3.75 10*6/uL Low 3.90-5.20 [facility] Comment on above: Order Comment: Speci men Type: BLOOD SPECIMENOrdering Facility: [facility] Address: [address] [place] [address] Performed By: #### 5 8410-2 ####[facility] [id number] [place] [address] [place] WBC (Bld) [#/Vol] 10.87 10*3/uL Normal 3.70-11.00 [facility] Comment on above: Order Comment: Speci men Type: BLOOD SPECIMENOrdering Facility: [facility] Address: [address] [place] [address] Performed By: #### 5 8410-2 ####[facility] [id number] [place] [address] [place] ECHO WITH AGITATED SALINE CO NTRASTon 09-03-2024 ECHO WITH AGITATED SALINE CONTRAST Normal [facility] Magnesium SerPl-mCncon 09-03 Magnesium [Mass/Vol] 2.2 mg/dL Normal 1.7-2.3 [facility] Comment on above: Order Comment: Speci men Type: BLOOD SPECIMENOrdering Facility: [facility] Address: [address] [place] [address] Performed By: #### 2 4321-2, 05631-7 ####[facility] LABIA [id number] [place] [address] [place] XR CHEST 1V FRONTAL PORTon 0 09-03-2024 XR CHEST 1V FRONTAL PORT Normal [facility] ARTERIAL BLOOD GASESon 09-02 Base excess Calc (Bld) [Moles/Vol] 6 mmol/L High 0-2 [facility] Comment on above: Order Comment: Speci men Type: ARTERIAL BLOOD SPECIMENOrdering Facility: [facility] Address: [address] [place] [address] Performed By: #### A LLBG ####[facility] [id number] [place] [address] [place] Body temperature 97.88 [degF] Normal [facility] Comment on above: Order Comment: Speci men Type: ARTERIAL BLOOD SPECIMENOrdering Facility: [facility] Address: [address] [place] [address] Performed By: #### A LLBG ####[facility] [id number] [place] [address] [place] Calcium.ionized (Bld) [Mass/Vol] 1.24 mmol/L Normal 1.08-1.30 [facility] Comment on above: Order Comment: Speci men Type: ARTERIAL BLOOD SPECIMENOrdering Facility: [facility] Address: [address] [place] [address] Performed By: #### A LLBG ####[facility] [id number] [place] [address] [place] Calcium.ionized adjusted to pH 7.4 (BldA) [Moles/Vol] 1.24 mmol/L Normal 1.08-1.30 [facility] Comment on above: Order Comment: Speci men Type: ARTERIAL BLOOD SPECIMENOrdering Facility: [facility] Address: [address] [place] [address] Performed By: #### A LLBG ####[facility] [id number] [place] [address] [place] Carboxyhemoglobin (BldA) [Mass fraction] 0.9 % Normal 0.0-2.0 [facility] Comment on above: Order Comment: Speci men Type: ARTERIAL BLOOD SPECIMENOrdering Facility: [facility] Address: [address] [place] [address] Result Comment: Carb oxyhemoglobin Reference Range for Smokers: 2.0-8.0% Performed By: #### A LLBG ####[facility]CL[facility] [id number] [place] [address] [place] CO2 (Bld) [Partial pressure] 52 mm Hg High 36-46 [facility] Comment on above: Order Comment: Speci men Type: ARTERIAL BLOOD SPECIMENOrdering Facility: [facility] Address: [address] [place] [address] Performed By: #### A LLBG ####[facility]CL[facility] [id number] [place] [address] [place] CO2 adjusted to patient's actual temperature (Bld) [Partial pressure] 51 mmHg High 36-46 [facility] Comment on above: Order Comment: Speci men Type: ARTERIAL BLOOD SPECIMENOrdering Facility: [facility] Address: [address] [place] [address] Performed By: #### A LLBG ####[facility]CL[facility] [id number] [place] [address] [place] FIO2 58 % Normal [facility] Comment on above: Order Comment: Speci men Type: ARTERIAL BLOOD SPECIMENOrdering Facility: [facility] Address: [address] [place] [address] Performed By: #### A LLBG ####[facility]CL[facility] [id number] [place] [address] [place] Glucose [Mass/Vol] 149 mg/dL High 60-105 [facility] Comment on above: Order Comment: Speci men Type: ARTERIAL BLOOD SPECIMENOrdering Facility: [facility] Address: [address] [place] [address] Performed By: #### A LLBG ####[facility] LABCLIA [id number] [place] [id number] [place] HCO3 (Bld) [Moles/Vol] 32 mmol/L High 22-26 [facility] Comment on above: Order Comment: Speci men Type: ARTERIAL BLOOD SPECIMENOrdering Facility: [facility] Address: [address] [place] [address] Performed By: #### A LLBG ####[facility]CL[facility] [id number] [place] [address] [place] Hematocrit (Bld) [Volume fraction] 38.5 % Normal 36.0-46.0 [facility] Comment on above: Order Comment: Speci men Type: ARTERIAL BLOOD SPECIMENOrdering Facility: [facility] Address: [address] [place] [address] Performed By: #### A LLBG ####[facility]CL[facility] [id number] [place] [address] [place] Hemoglobin (Bld) [Mass/Vol] 12.5 g/dL Normal 11.5-15.5 [facility] Comment on above: Order Comment: Speci men Type: ARTERIAL BLOOD SPECIMENOrdering Facility: [facility] Address: [address] [place] [address] Performed By: #### A LLBG ####[facility]CL[facility] [id number] [place] [address] [place] Lactate [Moles/Vol] 1.7 mmol/L Normal 0.5-2.2 [facility] Comment on above: Order Comment: Speci men Type: ARTERIAL BLOOD SPECIMENOrdering Facility: [facility] Address: [address] [place] [address] Performed By: #### A LLBG ####[facility]CL[facility] [id number] [place] [address] [place] Methemoglobin (Bld) [Mass fraction] 0.9 % Normal 0.0-1.5 [facility] Comment on above: Order Comment: Speci men Type: ARTERIAL BLOOD SPECIMENOrdering Facility: [facility] Address: [address] [place] [address] Performed By: #### A LLBG ####[facility]CL[facility] [id number] [place] [id number] [place] O2 THERAPY VENT=Ventilator Normal [facility] Comment on above: Order Comment: Speci men Type: ARTERIAL BLOOD SPECIMENOrdering Facility: [facility] Address: [address] [id number] Performed By: #### A LLBG ####[facility]CL[facility] [id number] [place] [id number] [place] Oxygen (Bld) [Partial pressure] 116 mm Hg High 85-95 [facility] Comment on above: Order Comment: Speci men Type: ARTERIAL BLOOD SPECIMENOrdering Facility: [facility] Address: [address] [place] [address] Performed By: #### A LLBG ####[facility]CL[facility] [id number] [place] [address] [place] Oxygen adjusted to patient's actual temperature (Bld) [Partial pressure] 114 mmHg High 85-95 [facility] Comment on above: Order Comment: Speci men Type: ARTERIAL BLOOD SPECIMENOrdering Facility: [facility] Address: [address] [place], [place] [id number] Performed By: #### A LLBG ####[facility]CL[facility] [id number] [place] [id number] [place] Oxyhemoglobin (BldA) [Mass fraction] 97 % Normal 95-98 [facility] Comment on above: Order Comment: Speci men Type: ARTERIAL BLOOD SPECIMENOrdering Facility: [facility] Address: [address] [id number] Performed By: #### A LLBG ####[facility] [id number] [place] [id number] [place] PEEP/CPAP 10 cmH2O Normal [facility] Comment on above: Order Comment: Speci men Type: ARTERIAL BLOOD SPECIMENOrdering Facility: [facility] Address: [address] [place] [address] Performed By: #### A LLBG ####[facility]CL[facility] [id number] [place] [address] [place] pH (Bld) 7.40 [pH] Normal 7.35-7.45 [facility] Comment on above: Order Comment: Speci men Type: ARTERIAL BLOOD SPECIMENOrdering Facility: [facility] Address: [address] [place] [address] Performed By: #### A LLBG ####[facility]CL[facility] [id number] [place] [address] [place] pH adjusted to patient's actual temperature (Bld) 7.41 Normal 7.35-7.45 [facility] Comment on above: Order Comment: Speci men Type: ARTERIAL BLOOD SPECIMENOrdering Facility: [facility] Address: [address] [place] [address] Performed By: #### A LLBG ####[facility] [id number] [place] [address] [place] PO2 / FIO2 RATIO 200 mmHg Low >[address] [facility] Comment on above: Order Comment: Speci men Type: ARTERIAL BLOOD SPECIMENOrdering Facility: [facility] Address: [address] [place] [address] Performed By: #### A LLBG ####[facility] [id number] [place] [address] [place] Potassium [Moles/Vol] 3.9 mmol/L Normal 3.5-5.0 [facility] Comment on above: Order Comment: Speci men Type: ARTERIAL BLOOD SPECIMENOrdering Facility: [facility] Address: [address] [place] [address] Performed By: #### A LLBG ####[facility] [id number] [place] [address] [place] Sodium [Moles/Vol] 137 mmol/L Normal 136-144 [facility] Comment on above: Order Comment: Speci men Type: ARTERIAL BLOOD SPECIMENOrdering Facility: [facility] Address: [address] [place] [address] Performed By: #### A LLBG ####[facility] [id number] [place] [address] [place] Base excess Calc (Bld) [Moles/Vol] 5 mmol/L High 0-2 [facility] Comment on above: Order Comment: Speci men Type: ARTERIAL BLOOD SPECIMENOrdering Facility: [facility] Address: [address] [place] [address] Performed By: #### A LLBG ####[facility] [id number] [place] [address] [place] Body temperature 97.88 [degF] Normal [facility] Comment on above: Order Comment: Speci men Type: ARTERIAL BLOOD SPECIMENOrdering Facility: [facility] Address: [address] [place] [address] Performed By: #### A LLBG ####[facility] [id number] [place] [address] [place] Calcium.ionized (Bld) [Mass/Vol] 1.24 mmol/L Normal 1.08-1.30 [facility] Comment on above: Order Comment: Speci men Type: ARTERIAL BLOOD SPECIMENOrdering Facility: [facility] Address: [address] [place] [address] Performed By: #### A LLBG ####[facility] [id number] [place] [address] [place] Calcium.ionized adjusted to pH 7.4 (BldA) [Moles/Vol] 1.27 mmol/L Normal 1.08-1.30 [facility] Comment on above: Order Comment: Speci men Type: ARTERIAL BLOOD SPECIMENOrdering Facility: [facility] Address: [address] [place] [address] Performed By: #### A LLBG ####[facility] [id number] [place] [address] [place] Carboxyhemoglobin (BldA) [Mass fraction] 1.2 % Normal 0.0-2.0 [facility] Comment on above: Order Comment: Speci men Type: ARTERIAL BLOOD SPECIMENOrdering Facility: [facility] Address: [address] [place] [address] Result Comment: Carb oxyhemoglobin Reference Range for Smokers: 2.0-8.0% Performed By: #### A LLBG ####[facility] [id number] [place] [address] [place] CO2 (Bld) [Partial pressure] 45 mm Hg Normal 36-46 [facility] Comment on above: Order Comment: Speci men Type: ARTERIAL BLOOD SPECIMENOrdering Facility: [facility] Address: [address] [place] [address] Performed By: #### A LLBG ####[facility] [id number] [place] [address] [place] CO2 adjusted to patient's actual temperature (Bld) [Partial pressure] 44 mmHg Normal 36-46 [facility] Comment on above: Order Comment: Speci men Type: ARTERIAL BLOOD SPECIMENOrdering Facility: [facility] Address: [address] [place] [address] Performed By: #### A LLBG ####[facility] [id number] [place] [id number] [place] FIO2 65 % Normal [facility] Comment on above: Order Comment: Speci men Type: ARTERIAL BLOOD SPECIMENOrdering Facility: [facility] Address: [address] [place] [address] Performed By: #### A LLBG ####[facility] [id number] [place] [address] [place] Glucose [Mass/Vol] 159 mg/dL High 60-105 [facility] Comment on above: Order Comment: Speci men Type: ARTERIAL BLOOD SPECIMENOrdering Facility: [facility] Address: [address] [place] [address] Performed By: #### A LLBG ####[facility] [id number] [place] [address] [place] HCO3 (Bld) [Moles/Vol] 30 mmol/L High 22-26 [facility] Comment on above: Order Comment: Speci men Type: ARTERIAL BLOOD SPECIMENOrdering Facility: [facility] Address: [address] [place] [address] Performed By: #### A LLBG ####[facility] [id number] [place] [address] [place] Hematocrit (Bld) [Volume fraction] 38.7 % Normal 36.0-46.0 [facility] Comment on above: Order Comment: Speci men Type: ARTERIAL BLOOD SPECIMENOrdering Facility: [facility] Address: [address] [place] [address] Performed By: #### A LLBG ####[facility] [id number] [place] [address] [place] Hemoglobin (Bld) [Mass/Vol] 12.6 g/dL Normal 11.5-15.5 [facility] Comment on above: Order Comment: Speci men Type: ARTERIAL BLOOD SPECIMENOrdering Facility: [facility] Address: [address] [place] [address] Performed By: #### A LLBG ####[facility] [id number] [place] [address] [place] Lactate [Moles/Vol] 2.2 mmol/L Normal 0.5-2.2 [facility] Comment on above: Order Comment: Speci men Type: ARTERIAL BLOOD SPECIMENOrdering Facility: [facility] Address: [address] [id number] Performed By: #### A LLBG ####[facility] [id number] [place] [address] [place] Methemoglobin (Bld) [Mass fraction] 0.5 % Normal 0.0-1.5 [facility] Comment on above: Order Comment: Speci men Type: ARTERIAL BLOOD SPECIMENOrdering Facility: [facility] Address: [address] [place] [address] Performed By: #### A LLBG ####[facility] [id number] [place] [address] [place] O2 THERAPY VENT=Ventilator Normal [facility] Comment on above: Order Comment: Speci men Type: ARTERIAL BLOOD SPECIMENOrdering Facility: [facility] Address: [address] [place] [address] Performed By: #### A LLBG ####[facility] LABCLIA [id number] [place] [address] [place] Oxygen (Bld) [Partial pressure] 90 mm Hg Normal 85-95 [facility] Comment on above: Order Comment: Speci men Type: ARTERIAL BLOOD SPECIMENOrdering Facility: [facility] Address: [address] [place], [place] [id number] Performed By: #### A LLBG ####[facility] LABCLIA [id number] [place] [address] [place] Oxygen adjusted to patient's actual temperature (Bld) [Partial pressure] 88 mmHg Normal 85-95 [facility] Comment on above: Order Comment: Speci men Type: ARTERIAL BLOOD SPECIMENOrdering Facility: [facility] Address: [address] [place] [place] [id number] Performed By: #### A LLBG ####[facility] LABCLIA [id number] [place] [id number] [place] Oxyhemoglobin (BldA) [Mass fraction] 96 % Normal 95-98 [facility] Comment on above: Order Comment: Speci men Type: ARTERIAL BLOOD SPECIMENOrdering Facility: [facility] Address: [facility] [place] [address] Performed By: #### A LLBG ####[facility] LABCLIA [id number] [place] [address] [place] PEEP/CPAP 10 cmH2O Normal [facility] Comment on above: Order Comment: Speci men Type: ARTERIAL BLOOD SPECIMENOrdering Facility: [facility] Address: [address] [place] [address] Performed By: #### A LLBG ####[facility] LABCL[facility] [id number] [place] [address] [place] pH (Bld) 7.44 [pH] Normal 7.35-7.45 [facility] Comment on above: Order Comment: Speci men Type: ARTERIAL BLOOD SPECIMENOrdering Facility: [facility] Address: [address] [place] [address] Performed By: #### A LLBG ####[facility]CLIA [id number] [place] [address] [place] pH adjusted to patient's actual temperature (Bld) 7.45 Normal 7.35-7.45 [facility] Comment on above: Order Comment: Speci men Type: ARTERIAL BLOOD SPECIMENOrdering Facility: [facility] Address: [address] [place] [address] Performed By: #### A LLBG ####[facility]CL[facility] [id number] [place] [address] [place] PO2 / FIO2 RATIO 138 mmHg Low >[address] [facility] Comment on above: Order Comment: Speci men Type: ARTERIAL BLOOD SPECIMENOrdering Facility: [facility] Address: [address] [place] [address] Performed By: #### A LLBG ####[facility]CLIA [id number] [place] [address] [place] Potassium [Moles/Vol] 3.7 mmol/L Normal 3.5-5.0 [facility] Comment on above: Order Comment: Speci men Type: ARTERIAL BLOOD SPECIMENOrdering Facility: [facility] Address: [address] [place] [address] Performed By: #### A LLBG ####[facility] LABIA [id number] [place] [address] [place] Sodium [Moles/Vol] 137 mmol/L Normal 136-144 [facility] Comment on above: Order Comment: Speci men Type: ARTERIAL BLOOD SPECIMENOrdering Facility: [facility] Address: [address] [place] [address] Performed By: #### A LLBG ####[facility] LABIA [id number] [place] [address] [place] Base excess Calc (Bld) [Moles/Vol] 4 mmol/L High 0-2 [facility] Comment on above: Order Comment: Speci men Type: ARTERIAL BLOOD SPECIMENOrdering Facility: [facility] Address: [address] [place] [address] Performed By: #### A LLBG ####[facility] LABIA [id number] [place] [address] [place] Body temperature 97.88 [degF] Normal [facility] Comment on above: Order Comment: Speci men Type: ARTERIAL BLOOD SPECIMENOrdering Facility: [facility] Address: [address] [place] [address] Performed By: #### A LLBG ####[facility] LABIA [id number] [place] [address] [place] Calcium.ionized (Bld) [Mass/Vol] 1.28 mmol/L Normal 1.08-1.30 [facility] Comment on above: Order Comment: Speci men Type: ARTERIAL BLOOD SPECIMENOrdering Facility: [facility] Address: [address] [place] [address] Performed By: #### A LLBG ####[facility] LABIA [id number] [place] [address] [place] Calcium.ionized adjusted to pH 7.4 (BldA) [Moles/Vol] 1.25 mmol/L Normal 1.08-1.30 [facility] Comment on above: Order Comment: Speci men Type: ARTERIAL BLOOD SPECIMENOrdering Facility: [facility] Address: [address] [place] [address] Performed By: #### A LLBG ####[facility] LABIA [id number] [place] [address] [place] Carboxyhemoglobin (BldA) [Mass fraction] 0.5 % Normal 0.0-2.0 [facility] Comment on above: Order Comment: Speci men Type: ARTERIAL BLOOD SPECIMENOrdering Facility: [facility] Address: [address] [place] [address] Result Comment: Carb oxyhemoglobin Reference Range for Smokers: 2.0-8.0% Performed By: #### A LLBG ####[facility] LABIA [id number] [place] [address] [place] CO2 (Bld) [Partial pressure] 56 mm Hg High 36-46 [facility] Comment on above: Order Comment: Speci men Type: ARTERIAL BLOOD SPECIMENOrdering Facility: [facility] Address: [address] [place] [address] Performed By: #### A LLBG ####[facility] LABIA [id number] [place] [address] [place] CO2 adjusted to patient's actual temperature (Bld) [Partial pressure] 55 mmHg High 36-46 [facility] Comment on above: Order Comment: Speci men Type: ARTERIAL BLOOD SPECIMENOrdering Facility: [facility] Address: [address] [place] [address] Performed By: #### A LLBG ####[facility] LABCLIA [id number] [place] [address] [place] FIO2 75 % Normal [facility] Comment on above: Order Comment: Speci men Type: ARTERIAL BLOOD SPECIMENOrdering Facility: [facility] Address: [address] [place] [address] Performed By: #### A LLBG ####[facility] LABCLIA [id number] [place] [address] [place] Glucose [Mass/Vol] 165 mg/dL High 60-105 [facility] Comment on above: Order Comment: Speci men Type: ARTERIAL BLOOD SPECIMENOrdering Facility: [facility] Address: [address] [place] [address] Performed By: #### A LLBG ####[facility] LABCLIA [id number] [place] [address] [place] HCO3 (Bld) [Moles/Vol] 30 mmol/L High 22-26 [facility] Comment on above: Order Comment: Speci men Type: ARTERIAL BLOOD SPECIMENOrdering Facility: [facility] Address: [address] [place] [address] Performed By: #### A LLBG ####[facility] LABCLIA [id number] [place] [address] [place] Hematocrit (Bld) [Volume fraction] 42.3 % Normal 36.0-46.0 [facility] Comment on above: Order Comment: Speci men Type: ARTERIAL BLOOD SPECIMENOrdering Facility: [facility] Address: [address] [place] [address] Performed By: #### A LLBG ####[facility] LABCLIA [id number] [place] [address] [place] Hemoglobin (Bld) [Mass/Vol] 13.8 g/dL Normal 11.5-15.5 [facility] Comment on above: Order Comment: Speci men Type: ARTERIAL BLOOD SPECIMENOrdering Facility: [facility] Address: [address] [place] [address] Performed By: #### A LLBG ####[facility] LABCLIA [id number] [address] [address] [place] Lactate [Moles/Vol] 1.8 mmol/L Normal 0.5-2.2 [facility] Comment on above: Order Comment: Speci men Type: ARTERIAL BLOOD SPECIMENOrdering Facility: [facility] Address: [address] [place] [address] Performed By: #### A LLBG ####[facility] LABCLIA [id number] [place] [address] [place] Methemoglobin (Bld) [Mass fraction] 1.0 % Normal 0.0-1.5 [facility] Comment on above: Order Comment: Speci men Type: ARTERIAL BLOOD SPECIMENOrdering Facility: [facility] Address: [address] [place] [address] Performed By: #### A LLBG ####[facility] LABCLIA [id number] [place] [address] [place] O2 THERAPY VENT=Ventilator Normal [facility] Comment on above: Order Comment: Speci men Type: ARTERIAL BLOOD SPECIMENOrdering Facility: [facility] Address: [address] [place] [address] Performed By: #### A LLBG ####[facility] LABCLIA [id number] [place] [id number] [place] Oxygen (Bld) [Partial pressure] 77 mm Hg Low 85-95 [facility] Comment on above: Order Comment: Speci men Type: ARTERIAL BLOOD SPECIMENOrdering Facility: [facility] Address: [address] [place], [place] [id number] Performed By: #### A LLBG ####[facility] LABCLIA [id number] [place] [address] [place] Oxygen adjusted to patient's actual temperature (Bld) [Partial pressure] 75 mmHg Low 85-95 [facility] Comment on above: Order Comment: Speci men Type: ARTERIAL BLOOD SPECIMENOrdering Facility: [facility] Address: [address] [place] [address] Performed By: #### A LLBG ####[facility] LABCLIA [id number] [place] [address] [place] Oxyhemoglobin (BldA) [Mass fraction] 94 % Low 95-98 [facility] Comment on above: Order Comment: Speci men Type: ARTERIAL BLOOD SPECIMENOrdering Facility: [facility] Address: [address] [place] [address] Performed By: #### A LLBG ####[facility] LABCLIA [id number] [place] [address] [place] PEEP/CPAP 10 cmH2O Normal [facility] Comment on above: Order Comment: Speci men Type: ARTERIAL BLOOD SPECIMENOrdering Facility: [facility] Address: [address] [place] [address] Performed By: #### A LLBG ####[facility] LABCLIA [id number] [place] [address] [place] pH (Bld) 7.35 [pH] Normal 7.35-7.45 [facility] Comment on above: Order Comment: Speci men Type: ARTERIAL BLOOD SPECIMENOrdering Facility: [facility] Address: [address] [place] [address] Performed By: #### A LLBG ####[facility] LABCLIA [id number] [place] [address] [place] pH adjusted to patient's actual temperature (Bld) 7.36 Normal 7.35-7.45 [facility] Comment on above: Order Comment: Speci men Type: ARTERIAL BLOOD SPECIMENOrdering Facility: [facility] Address: [address] [place] [address] Performed By: #### A LLBG ####[facility] LABCLIA [id number] [place] [address] [place] PO2 / FIO2 RATIO 103 mmHg Low >[address] [facility] Comment on above: Order Comment: Speci men Type: ARTERIAL BLOOD SPECIMENOrdering Facility: [facility] Address: [address] [place] [address] Performed By: #### A LLBG ####[facility] LABCLIA [id number] [place] [address] [place] Potassium [Moles/Vol] 3.8 mmol/L Normal 3.5-5.0 [facility] Comment on above: Order Comment: Speci men Type: ARTERIAL BLOOD SPECIMENOrdering Facility: [facility] Address: [address] [place] [address] Performed By: #### A LLBG ####[facility] LABCLIA [id number] [place] [address] [place] Sodium [Moles/Vol] 139 mmol/L Normal 136-144 [facility] Comment on above: Order Comment: Speci men Type: ARTERIAL BLOOD SPECIMENOrdering Facility: [facility] Address: [address] [place] [address] Performed By: #### A LLBG ####[facility] LABCLIA [id number] [place] [address] [place] Base excess Calc (Bld) [Moles/Vol] 5 mmol/L High 0-2 [facility] Comment on above: Order Comment: Speci men Type: ARTERIAL BLOOD SPECIMENOrdering Facility: [facility] Address: [address] [place] [address] Performed By: #### A LLBG ####[facility] LABCLIA [id number] [place] [address] [place] Body temperature 100.22 [degF] Normal [facility] Comment on above: Order Comment: Speci men Type: ARTERIAL BLOOD SPECIMENOrdering Facility: [facility] Address: [address] [place] [address] Performed By: #### A LLBG ####[facility] LABCLIA [id number] [place] [address] [place] Calcium.ionized (Bld) [Mass/Vol] 1.27 mmol/L Normal 1.08-1.30 [facility] Comment on above: Order Comment: Speci men Type: ARTERIAL BLOOD SPECIMENOrdering Facility: [facility] Address: [address] [place] [address] Performed By: #### A LLBG ####[facility] LABCLIA [id number] [place] [address] [place] Calcium.ionized adjusted to pH 7.4 (BldA) [Moles/Vol] 1.26 mmol/L Normal 1.08-1.30 [facility] Comment on above: Order Comment: Speci men Type: ARTERIAL BLOOD SPECIMENOrdering Facility: [facility] Address: [address] [place] [address] Performed By: #### A LLBG ####[facility] LABCLIA [id number] [place] [address] [place] Carboxyhemoglobin (BldA) [Mass fraction] 1.0 % Normal 0.0-2.0 [facility] Comment on above: Order Comment: Speci men Type: ARTERIAL BLOOD SPECIMENOrdering Facility: [facility] Address: [address] [place] [address] Result Comment: Carb oxyhemoglobin Reference Range for Smokers: 2.0-8.0% Performed By: #### A LLBG ####[facility] LABCLIA [id number] [place] [address] [place] CO2 (Bld) [Partial pressure] 54 mm Hg High 36-46 [facility] Comment on above: Order Comment: Speci men Type: ARTERIAL BLOOD SPECIMENOrdering Facility: [facility] Address: [address] [place] [address] Performed By: #### A LLBG ####[facility] LABCLIA [id number] [place] [address] [place] CO2 adjusted to patient's actual temperature (Bld) [Partial pressure] 56 mmHg High 36-46 [facility] Comment on above: Order Comment: Speci men Type: ARTERIAL BLOOD SPECIMENOrdering Facility: [facility] Address: [address] [place] [address] Performed By: #### A LLBG ####[facility] LABCLIA [id number] [place] [address] [place] FIO2 50 % Normal [facility] Comment on above: Order Comment: Speci men Type: ARTERIAL BLOOD SPECIMENOrdering Facility: [facility] Address: [address] [place] [address] Performed By: #### A LLBG ####[facility] LABCLIA [id number] [place] [address] [place] Glucose [Mass/Vol] 151 mg/dL High 60-105 [facility] Comment on above: Order Comment: Speci men Type: ARTERIAL BLOOD SPECIMENOrdering Facility: [facility] Address: [address] [place] [address] Performed By: #### A LLBG ####[facility] LABCLIA [id number] [place] [address] [place] HCO3 (Bld) [Moles/Vol] 31 mmol/L High 22-26 [facility] Comment on above: Order Comment: Speci men Type: ARTERIAL BLOOD SPECIMENOrdering Facility: [facility] Address: [address] [place] [address] Performed By: #### A LLBG ####[facility] LABCLIA [id number] [place] [id number] [place] Hematocrit (Bld) [Volume fraction] 43.4 % Normal 36.0-46.0 [facility] Comment on above: Order Comment: Speci men Type: ARTERIAL BLOOD SPECIMENOrdering Facility: [facility] Address: [address] [place] [address] Performed By: #### A LLBG ####[facility] LABCLIA [id number] [place] [address] [place] Hemoglobin (Bld) [Mass/Vol] 14.1 g/dL Normal 11.5-15.5 [facility] Comment on above: Order Comment: Speci men Type: ARTERIAL BLOOD SPECIMENOrdering Facility: [facility] Address: [address] [place] [address] Performed By: #### A LLBG ####[facility] LABCLIA [id number] [place] [address] [place] Lactate [Moles/Vol] 1.5 mmol/L Normal 0.5-2.2 [facility] Comment on above: Order Comment: Speci men Type: ARTERIAL BLOOD SPECIMENOrdering Facility: [facility] Address: [address] [place] [address] Performed By: #### A LLBG ####[facility] LABCLIA [id number] [place] [address] [place] Methemoglobin (Bld) [Mass fraction] 0.5 % Normal 0.0-1.5 [facility] Comment on above: Order Comment: Speci men Type: ARTERIAL BLOOD SPECIMENOrdering Facility: [facility] Address: [address] [place] [address] Performed By: #### A LLBG ####[facility] LABCLIA [id number] [place] [address] [place] O2 THERAPY VENT=Ventilator Normal [facility] Comment on above: Order Comment: Speci men Type: ARTERIAL BLOOD SPECIMENOrdering Facility: [facility] Address: [address] [place] [address] Performed By: #### A LLBG ####[facility] LABCLIA [id number] [place] [address] [place] Oxygen (Bld) [Partial pressure] 66 mm Hg Low 85-95 [facility] Comment on above: Order Comment: Speci men Type: ARTERIAL BLOOD SPECIMENOrdering Facility: [facility] Address: [address] [place] [address] Performed By: #### A LLBG ####[facility] LABCLIA [id number] [place] [address] [place] Oxygen adjusted to patient's actual temperature (Bld) [Partial pressure] 70 mmHg Low 85-95 [facility] Comment on above: Order Comment: Speci men Type: ARTERIAL BLOOD SPECIMENOrdering Facility: [facility] Address: [address] [place] [address] Performed By: #### A LLBG ####[facility] LABCLIA [id number] [place] [address] [place] Oxyhemoglobin (BldA) [Mass fraction] 91 % Low 95-98 [facility] Comment on above: Order Comment: Speci men Type: ARTERIAL BLOOD SPECIMENOrdering Facility: [facility] Address: [address] [place] [address] Performed By: #### A LLBG ####[facility] LABCLIA [id number] [place] [address] [place] pH (Bld) 7.38 [pH] Normal 7.35-7.45 [facility] Comment on above: Order Comment: Speci men Type: ARTERIAL BLOOD SPECIMENOrdering Facility: [facility] Address: [address] [place] [address] Performed By: #### A LLBG ####[facility] LABCLIA [id number] [place] [address] [place] pH adjusted to patient's actual temperature (Bld) 7.37 Normal 7.35-7.45 [facility] Comment on above: Order Comment: Speci men Type: ARTERIAL BLOOD SPECIMENOrdering Facility: [facility] Address: [address] [place] [address] Performed By: #### A LLBG ####[facility] LABCLIA [id number] [place] [address] [place] PO2 / FIO2 RATIO 132 mmHg Low >[address] [facility] Comment on above: Order Comment: Speci men Type: ARTERIAL BLOOD SPECIMENOrdering Facility: [facility] Address: [address] [place] [address] Performed By: #### A LLBG ####[facility] LABCLIA [id number] [place] [address] [place] Potassium [Moles/Vol] 4.0 mmol/L Normal 3.5-5.0 [facility] Comment on above: Order Comment: Speci men Type: ARTERIAL BLOOD SPECIMENOrdering Facility: [facility] Address: [address] [place] [address] Performed By: #### A LLBG ####[facility] LABCLIA [id number] [place] [address] [place] Sodium [Moles/Vol] 137 mmol/L Normal 136-144 [facility] Comment on above: Order Comment: Speci men Type: ARTERIAL BLOOD SPECIMENOrdering Facility: [facility] Address: [address] [place] [address] Performed By: #### A LLBG ####[facility] LABCLIA [id number] [place] [address] [place] Base excess Calc (Bld) [Moles/Vol] 6 mmol/L High 0-2 [facility] Comment on above: Order Comment: Speci men Type: ARTERIAL BLOOD SPECIMENOrdering Facility: [facility] Address: [address] [place] [address] Performed By: #### A LLBG ####[facility] LABCL[facility] [id number] [place] [address] [place] Body temperature 99.68 [degF] Normal [facility] Comment on above: Order Comment: Speci men Type: ARTERIAL BLOOD SPECIMENOrdering Facility: [facility] Address: [address] [place] [address] Performed By: #### A LLBG ####[facility]CLIA [id number] [place] [address] [place] Calcium.ionized (Bld) [Mass/Vol] 1.28 mmol/L Normal 1.08-1.30 [facility] Comment on above: Order Comment: Speci men Type: ARTERIAL BLOOD SPECIMENOrdering Facility: [facility] Address: [address] [place] [address] Performed By: #### A LLBG ####[facility] LABCLIA [id number] [place] [address] [place] Calcium.ionized adjusted to pH 7.4 (BldA) [Moles/Vol] 1.29 mmol/L Normal 1.08-1.30 [facility] Comment on above: Order Comment: Speci men Type: ARTERIAL BLOOD SPECIMENOrdering Facility: [facility] Address: [address] [place] [address] Performed By: #### A LLBG ####[facility] LABIA [id number] [place] [address] [place] Carboxyhemoglobin (BldA) [Mass fraction] 1.1 % Normal 0.0-2.0 [facility] Comment on above: Order Comment: Speci men Type: ARTERIAL BLOOD SPECIMENOrdering Facility: [facility] Address: [address] [place] [address] Result Comment: Carb oxyhemoglobin Reference Range for Smokers: 2.0-8.0% Performed By: #### A LLBG ####[facility]CL[facility] [id number] [place] [address] [place] CO2 (Bld) [Partial pressure] 49 mm Hg High 36-46 [facility] Comment on above: Order Comment: Speci men Type: ARTERIAL BLOOD SPECIMENOrdering Facility: [facility] Address: [address] [place] [address] Performed By: #### A LLBG ####[facility] LABCLIA [id number] [place] [address] [place] CO2 adjusted to patient's actual temperature (Bld) [Partial pressure] 51 mmHg High 36-46 [facility] Comment on above: Order Comment: Speci men Type: ARTERIAL BLOOD SPECIMENOrdering Facility: [facility] Address: [address] [place] [address] Performed By: #### A LLBG ####[facility]CL[facility] [id number] [place] [address] [place] FIO2 50 % Normal [facility] Comment on above: Order Comment: Speci men Type: ARTERIAL BLOOD SPECIMENOrdering Facility: [facility] Address: [address] [place] [address] Performed By: #### A LLBG ####[facility]CL[facility] [id number] [place] [address] [place] Glucose [Mass/Vol] 125 mg/dL High 60-105 [facility] Comment on above: Order Comment: Speci men Type: ARTERIAL BLOOD SPECIMENOrdering Facility: [facility] Address: [address] [place] [place] [address] Performed By: #### A LLBG ####[facility] LABCLIA [id number] [place] [address] [place] HCO3 (Bld) [Moles/Vol] 31 mmol/L High 22-26 [facility] Comment on above: Order Comment: Speci men Type: ARTERIAL BLOOD SPECIMENOrdering Facility: [facility] Address: [address] [place] [address] Performed By: #### A LLBG ####[facility] LABCLIA [id number] [place] [address] [place] Hematocrit (Bld) [Volume fraction] 43.0 % Normal 36.0-46.0 [facility] Comment on above: Order Comment: Speci men Type: ARTERIAL BLOOD SPECIMENOrdering Facility: [facility] Address: [address] [place] [address] Performed By: #### A LLBG ####[facility] LABIA [id number] [place] [address] [place] Hemoglobin (Bld) [Mass/Vol] 14.0 g/dL Normal 11.5-15.5 [facility] Comment on above: Order Comment: Speci men Type: ARTERIAL BLOOD SPECIMENOrdering Facility: [facility] Address: [address] [place] [address] Performed By: #### A LLBG ####[facility] LABIA [id number] [place] [address] [place] Lactate [Moles/Vol] 1.1 mmol/L Normal 0.5-2.2 [facility] Comment on above: Order Comment: Speci men Type: ARTERIAL BLOOD SPECIMENOrdering Facility: [facility] Address: [address] [place] [address] Performed By: #### A LLBG ####[facility] LABIA [id number] [place] [address] [place] Methemoglobin (Bld) [Mass fraction] 0.8 % Normal 0.0-1.5 [facility] Comment on above: Order Comment: Speci men Type: ARTERIAL BLOOD SPECIMENOrdering Facility: [facility] Address: [address] [place] [address] Performed By: #### A LLBG ####[facility] LABIA [id number] [place] [id number] [place] O2 THERAPY VENT=Ventilator Normal [facility] Comment on above: Order Comment: Speci men Type: ARTERIAL BLOOD SPECIMENOrdering Facility: [facility] Address: [address] [place] [address] Performed By: #### A LLBG ####[facility] LABCL[facility] [id number] [place] [address] [place] Oxygen (Bld) [Partial pressure] 88 mm Hg Normal 85-95 [facility] Comment on above: Order Comment: Speci men Type: ARTERIAL BLOOD SPECIMENOrdering Facility: [facility] Address: [address] [place] [id number] Performed By: #### A LLBG ####[facility] LABCL[facility] [id number] [place] [address] [place] Oxygen adjusted to patient's actual temperature (Bld) [Partial pressure] 91 mmHg Normal 85-95 [facility] Comment on above: Order Comment: Speci men Type: ARTERIAL BLOOD SPECIMENOrdering Facility: [facility] Address: [address] [place] [id number] Performed By: #### A LLBG ####[facility] LABCLIA [id number] [place] [address] [place] Oxyhemoglobin (BldA) [Mass fraction] 96 % Normal 95-98 [facility] Comment on above: Order Comment: Speci men Type: ARTERIAL BLOOD SPECIMENOrdering Facility: [facility] Address: [address] [place] [id number] Performed By: #### A LLBG ####[facility] LABCLIA [id number] [place] [address] [place] PEEP/CPAP 10 cmH2O Normal [facility] Comment on above: Order Comment: Speci men Type: ARTERIAL BLOOD SPECIMENOrdering Facility: [facility] Address: [address] [id number] Performed By: #### A LLBG ####[facility] LABCL[facility] [id number] [place] [address] [place] pH (Bld) 7.41 [pH] Normal 7.35-7.45 [facility] Comment on above: Order Comment: Speci men Type: ARTERIAL BLOOD SPECIMENOrdering Facility: [facility] Address: [address] [place] [address] Performed By: #### A LLBG ####[facility] LABCL[facility] [id number] [place] [address] [place] pH adjusted to patient's actual temperature (Bld) 7.40 Normal 7.35-7.45 [facility] Comment on above: Order Comment: Speci men Type: ARTERIAL BLOOD SPECIMENOrdering Facility: [facility] Address: [address] [place] [address] Performed By: #### A LLBG ####[facility] LABCLIA [id number] [place] [address] [place] PO2 / FIO2 RATIO 176 mmHg Low >[address] [facility] Comment on above: Order Comment: Speci men Type: ARTERIAL BLOOD SPECIMENOrdering Facility: [facility] Address: [address] [place] [address] Performed By: #### A LLBG ####[facility] LABCL[facility] [id number] [place] [address] [place] Potassium [Moles/Vol] 4.0 mmol/L Normal 3.5-5.0 [facility] Comment on above: Order Comment: Speci men Type: ARTERIAL BLOOD SPECIMENOrdering Facility: [facility] Address: [address] [place] [address] Performed By: #### A LLBG ####[facility] LABCLIA [id number] [place] [address] [place] Sodium [Moles/Vol] 136 mmol/L Normal 136-144 [facility] Comment on above: Order Comment: Speci men Type: ARTERIAL BLOOD SPECIMENOrdering Facility: [facility] Address: [address] [place] [address] Performed By: #### A LLBG ####[facility] [id number] [place] [address] [place] Base excess Calc (Bld) [Moles/Vol] 4 mmol/L High 0-2 [facility] Comment on above: Order Comment: Speci men Type: ARTERIAL BLOOD SPECIMENOrdering Facility: [facility] Address: [address] [place] [address] Performed By: #### A LLBG ####[facility] [id number] [place] [address] [place] Body temperature 99.86 [degF] Normal [facility] Comment on above: Order Comment: Speci men Type: ARTERIAL BLOOD SPECIMENOrdering Facility: [facility] Address: [address] [place] [address] Performed By: #### A LLBG ####[facility] [id number] [place] [address] [place] Calcium.ionized (Bld) [Mass/Vol] 1.28 mmol/L Normal 1.08-1.30 [facility] Comment on above: Order Comment: Speci men Type: ARTERIAL BLOOD SPECIMENOrdering Facility: [facility] Address: [address] [place] [address] Performed By: #### A LLBG ####[facility] [id number] [place] [address] [place] Calcium.ionized adjusted to pH 7.4 (BldA) [Moles/Vol] 1.28 mmol/L Normal 1.08-1.30 [facility] Comment on above: Order Comment: Speci men Type: ARTERIAL BLOOD SPECIMENOrdering Facility: [facility] Address: [address] [place] [address] Performed By: #### A LLBG ####[facility] LABCL[facility] [id number] [place] [address] [place] Carboxyhemoglobin (BldA) [Mass fraction] 0.8 % Normal 0.0-2.0 [facility] Comment on above: Order Comment: Speci men Type: ARTERIAL BLOOD SPECIMENOrdering Facility: [facility] Address: [address] [place] [address] Result Comment: Carb oxyhemoglobin Reference Range for Smokers: 2.0-8.0% Performed By: #### A LLBG ####[facility] LABCLIA [id number] [place] [address] [place] CO2 (Bld) [Partial pressure] 50 mm Hg High 36-46 [facility] Comment on above: Order Comment: Speci men Type: ARTERIAL BLOOD SPECIMENOrdering Facility: [facility] Address: [address] [place] [address] Performed By: #### A LLBG ####[facility] LABCLIA [id number] [place] [address] [place] CO2 adjusted to patient's actual temperature (Bld) [Partial pressure] 51 mmHg High 36-46 [facility] Comment on above: Order Comment: Speci men Type: ARTERIAL BLOOD SPECIMENOrdering Facility: [facility] Address: [address] [place] [address] Performed By: #### A LLBG ####[facility] LABCLIA [id number] [place] [address] [place] FIO2 50 % Normal [facility] Comment on above: Order Comment: Speci men Type: ARTERIAL BLOOD SPECIMENOrdering Facility: [facility] Address: [address] [place] [address] Performed By: #### A LLBG ####[facility] LABCLIA [id number] [place] [id number] [place] Glucose [Mass/Vol] 147 mg/dL High 60-105 [facility] Comment on above: Order Comment: Speci men Type: ARTERIAL BLOOD SPECIMENOrdering Facility: [facility] Address: [address] [place] [address] Performed By: #### A LLBG ####[facility] LABCLIA [id number] [place] [address] [place] HCO3 (Bld) [Moles/Vol] 30 mmol/L High 22-26 [facility] Comment on above: Order Comment: Speci men Type: ARTERIAL BLOOD SPECIMENOrdering Facility: [facility] Address: [address] [place] [address] Performed By: #### A LLBG ####[facility] LABCLIA [id number] [place] [address] [place] Hematocrit (Bld) [Volume fraction] 43.0 % Normal 36.0-46.0 [facility] Comment on above: Order Comment: Speci men Type: ARTERIAL BLOOD SPECIMENOrdering Facility: [facility] Address: [address] [place] [address] Performed By: #### A LLBG ####[facility] LABIA [id number] [place] [address] [place] Hemoglobin (Bld) [Mass/Vol] 14.0 g/dL Normal 11.5-15.5 [facility] Comment on above: Order Comment: Speci men Type: ARTERIAL BLOOD SPECIMENOrdering Facility: [facility] Address: [address] [place] [address] Performed By: #### A LLBG ####[facility] LABIA [id number] [place] [address] [place] Lactate [Moles/Vol] 1.5 mmol/L Normal 0.5-2.2 [facility] Comment on above: Order Comment: Speci men Type: ARTERIAL BLOOD SPECIMENOrdering Facility: [facility] Address: [address] [place] [address] Performed By: #### A LLBG ####[facility] LABCLIA [id number] [place] [id number] [place] Methemoglobin (Bld) [Mass fraction] 0.8 % Normal 0.0-1.5 [facility] Comment on above: Order Comment: Speci men Type: ARTERIAL BLOOD SPECIMENOrdering Facility: [facility] Address: [address] [place] [address] Performed By: #### A LLBG ####[facility] LABCLIA [id number] [place] [address] [place] O2 THERAPY VENT=Ventilator Normal [facility] Comment on above: Order Comment: Speci men Type: ARTERIAL BLOOD SPECIMENOrdering Facility: [facility] Address: [address] [place] [address] Performed By: #### A LLBG ####[facility] LABCLIA [id number] [place] [address] [place] Oxygen (Bld) [Partial pressure] 78 mm Hg Low 85-95 [facility] Comment on above: Order Comment: Speci men Type: ARTERIAL BLOOD SPECIMENOrdering Facility: [facility] Address: [address] [place] [address] Performed By: #### A LLBG ####[facility] LABCLIA [id number] [place] [address] [place] Oxygen adjusted to patient's actual temperature (Bld) [Partial pressure] 81 mmHg Low 85-95 [facility] Comment on above: Order Comment: Speci men Type: ARTERIAL BLOOD SPECIMENOrdering Facility: [facility] Address: [address] [place], [place] [id number] Performed By: #### A LLBG ####[facility] LABCLIA [id number] [place] [id number] [place] Oxyhemoglobin (BldA) [Mass fraction] 95 % Normal 95-98 [facility] Comment on above: Order Comment: Speci men Type: ARTERIAL BLOOD SPECIMENOrdering Facility: [facility] Address: [address] [place] [address] Performed By: #### A LLBG ####[facility] LABCLIA [id number] [place] [address] [place] PEEP/CPAP 10 cmH2O Normal [facility] Comment on above: Order Comment: Speci men Type: ARTERIAL BLOOD SPECIMENOrdering Facility: [facility] Address: [address] [place] [address] Performed By: #### A LLBG ####[facility] LABCLIA [id number] [place] [address] [place] pH (Bld) 7.39 [pH] Normal 7.35-7.45 [facility] Comment on above: Order Comment: Speci men Type: ARTERIAL BLOOD SPECIMENOrdering Facility: [facility] Address: [address] [place] [address] Performed By: #### A LLBG ####[facility] LABCL[facility] [id number] [place] [address] [place] pH adjusted to patient's actual temperature (Bld) 7.38 Normal 7.35-7.45 [facility] Comment on above: Order Comment: Speci men Type: ARTERIAL BLOOD SPECIMENOrdering Facility: [facility] Address: [address] [place] [address] Performed By: #### A LLBG ####[facility] LABCL[facility] [id number] [place] [address] [place] PO2 / FIO2 RATIO 156 mmHg Low >[address] [facility] Comment on above: Order Comment: Speci men Type: ARTERIAL BLOOD SPECIMENOrdering Facility: [facility] Address: [address] [place] [address] Performed By: #### A LLBG ####[facility] LABCL[facility] [id number] [place] [address] [place] Potassium [Moles/Vol] 4.0 mmol/L Normal 3.5-5.0 [facility] Comment on above: Order Comment: Speci men Type: ARTERIAL BLOOD SPECIMENOrdering Facility: [facility] Address: [address] [place] [address] Performed By: #### A LLBG ####[facility] LABCLIA [id number] [place] [address] [place] Sodium [Moles/Vol] 133 mmol/L Low 136-144 [facility] Comment on above: Order Comment: Speci men Type: ARTERIAL BLOOD SPECIMENOrdering Facility: [facility] Address: [address] [place] [address] Performed By: #### A LLBG ####[facility] LABCLIA [id number] [place] [address] [place] Basic metabolic 2000 panelon 09-02-2024 Anion gap [Moles/Vol] 9 mmol/L Normal 8-15 [facility] Comment on above: Order Comment: Speci men Type: BLOOD SPECIMENOrdering Facility: [facility] Address: [address] [place] [address] Performed By: #### 1 9123-9, 2777-1, 70787-8 ####[facility] LABCL[facility] [id number] [place] [address] [place] Calcium [Mass/Vol] 9.5 mg/dL Normal 8.5-10.2 [facility] Comment on above: Order Comment: Speci men Type: BLOOD SPECIMENOrdering Facility: [facility] Address: [address] [place], [place] [address] Performed By: #### 1 9123-9, 2777-1, 91574-0 ####[facility] LABCL[facility] [id number] [place] [id number] [place] Chloride [Moles/Vol] 97 mmol/L Low 98-107 [facility] Comment on above: Order Comment: Speci men Type: BLOOD SPECIMENOrdering Facility: [facility] Address: [address] [place], [place] [address] Performed By: #### 1 9123-9, 2777-, 71944-7 ####[facility] LABCL[facility] [id number] [address] [address] [place] CO2 [Moles/Vol] 30 mmol/L Normal 22-30 [facility] Comment on above: Order Comment: Speci men Type: BLOOD SPECIMENOrdering Facility: [facility] Address: [address] [place] [address] Performed By: #### 1 9123-9, 2777-, 86879-6 ####[facility] LABCL[facility] [id number] [address] [address] [place] Creatinine [Mass/Vol] 0.93 mg/dL Normal 0.58-0.96 [facility] Comment on above: Order Comment: Speci men Type: BLOOD SPECIMENOrdering Facility: [facility] Address: [address] [place] [address] Performed By: #### 1 9123-9, 2777, 37494-5 ####[facility] LABIA [id number] [address] [address] [place] Creatinine and Glomerular filtration rate.predicted panel (S/P/Bld) 73 mL/min/1.73m??? Normal >=60 [facility] Comment on above: Order Comment: Speci men Type: BLOOD SPECIMENOrdering Facility: [facility] Address: [address] [place] [address] Result Comment: Anna mated Glomerular Filtration Rate (eGFR) is calculated using the 2020 CKD-EPI creatinine equation. This equation utilizes serum creatinine, sex, and age as parameters. The creatinine assay has traceable calibration to isotope dilution-mass spectrometry. Refer to KDIGO guidelines for clinical interpretation. In patients with unstable renal function, e.g. those with acute kidney injury, the eGFR may not accurately reflect actual GFR. Performed By: #### 1 9123-9, 2777-1, 50454-1 ####[facility] LABCL[facility] [id number] [place] [id number] [place] Glucose [Mass/Vol] 144 mg/dL High 74-99 [facility] Comment on above: Order Comment: Speci men Type: BLOOD SPECIMENOrdering Facility: [facility] Address: [address] [place] [address] Result Comment: The [place] [employer] (ADA) provides guidance for cutoff values for fasting glucose and random glucose. The ADA defines fasting as no caloric intake for at least 8 hours. Fasting plasma glucose results between 100 to 125 mg/dL indicate increased risk for diabetes (prediabetes).Fasting plasma glucose results greater than or equal to 126 mg/dL meet the criteria for diagnosis of diabetes. In the absence of unequivocal hyperglycemia, results should be confirmed by repeat testing. In a patient with classic symptoms of hyperglycemia or hyperglycemic crisis, random plasma glucose results greater than or equal to 200 mg/dL meet the criteria for diagnosis of diabetes.Reference: Standards of Medical Care in Diabetes 2016, [place] [employer]. Diabetes Care. 2016.39(Suppl 1). Performed By: #### 1 9123-9, 2777-1, 01959-0 ####[facility] LABCL[facility] [id number] [place] [address] [place] Potassium [Moles/Vol] 3.8 mmol/L Normal 3.7-5.1 [facility] Comment on above: Order Comment: Speci men Type: BLOOD SPECIMENOrdering Facility: [facility] Address: [address] [place] [address] Performed By: #### 1 9123-9, 2777-1, 61174-8 ####[facility]CL[facility] [id number] [place] [address] [place] Sodium [Moles/Vol] 136 mmol/L Normal 136-144 [facility] Comment on above: Order Comment: Speci men Type: BLOOD SPECIMENOrdering Facility: [facility] Address: [address] [place] [address] Performed By: #### 1 9123-9, 2777-1, 29152-4 ####[facility]CL[facility] [id number] [place] [address] [place] Urea nitrogen [Mass/Vol] 17 mg/dL Normal 7-21 [facility] Comment on above: Order Comment: Speci men Type: BLOOD SPECIMENOrdering Facility: [facility] Address: [address] [place] [address] Performed By: #### 1 9123-9, 2777-1, 15170-0 ####[facility] LABIA [id number] [place] [address] [place] CBC panel Auto (Bld)on 09-02 Erythrocyte distribution width (RBC) [Ratio] 13.0 % Normal 11.5-15.0 [facility] Comment on above: Order Comment: Speci men Type: BLOOD SPECIMENOrdering Facility: [facility] Address: [address] [place] [address] Performed By: #### 5 8410-2 ####[facility] LAB[facility] [id number] [place] [address] [place] Hematocrit (Bld) [Volume fraction] 36.2 % Normal 36.0-46.0 [facility] Comment on above: Order Comment: Speci men Type: BLOOD SPECIMENOrdering Facility: [facility] Address: [address] [place] [address] Performed By: #### 5 8410-2 ####[facility] LABIA [id number] [place] [id number] [place] Hemoglobin (Bld) [Mass/Vol] 12.1 g/dL Normal 11.5-15.5 [facility] Comment on above: Order Comment: Speci men Type: BLOOD SPECIMENOrdering Facility: [facility] Address: [address] [place] [address] Performed By: #### 5 8410-2 ####[facility] [id number] [place] [address] [place] MCH (RBC) [Entitic mass] 29.2 pg Normal 26.0-34.0 [facility] Comment on above: Order Comment: Speci men Type: BLOOD SPECIMENOrdering Facility: [facility] Address: [address] [place] [address] Performed By: #### 5 8410-2 ####[facility] [id number] [place] [address] [place] MCHC (RBC) [Mass/Vol] 33.4 g/dL Normal 30.5-36.0 [facility] Comment on above: Order Comment: Speci men Type: BLOOD SPECIMENOrdering Facility: [facility] Address: [address] [place] [address] Performed By: #### 5 8410-2 ####[facility] [id number] [place] [address] [place] MCV (RBC) [Entitic vol] 87.4 fL Normal 80.0-100.0 [facility] Comment on above: Order Comment: Speci men Type: BLOOD SPECIMENOrdering Facility: [facility] Address: [address] [place] [address] Performed By: #### 5 8410-2 ####[facility] [id number] [place] [address] [place] Nucleated RBC (Bld) [#/Vol] 10*3/uL Normal <0.01 [facility] Comment on above: Order Comment: Speci men Type: BLOOD SPECIMENOrdering Facility: [facility] Address: [address] [place] [address] Performed By: #### 5 8410-2 ####[facility] [id number] [place] [address] [place] Platelet mean volume (Bld) [Entitic vol] 10.4 fL Normal 9.0-12.7 [facility] Comment on above: Order Comment: Speci men Type: BLOOD SPECIMENOrdering Facility: [facility] Address: [address] [place] [address] Performed By: #### 5 8410-2 ####[facility] [id number] [place] [address] [place] Platelets (Bld) [#/Vol] 288 10*3/uL Normal 150-400 [facility] Comment on above: Order Comment: Speci men Type: BLOOD SPECIMENOrdering Facility: [facility] Address: [address] [place] [address] Performed By: #### 5 8410-2 ####[facility] [id number] [place] [address] [place] RBC (Bld) [#/Vol] 4.14 10*6/uL Normal 3.90-5.20 [facility] Comment on above: Order Comment: Speci men Type: BLOOD SPECIMENOrdering Facility: [facility] Address: [address] [place] [address] Performed By: #### 5 8410-2 ####[facility] [id number] [place] [address] [place] WBC (Bld) [#/Vol] 11.41 10*3/uL High 3.70-11.00 [facility] Comment on above: Order Comment: Speci men Type: BLOOD SPECIMENOrdering Facility: [facility] Address: [address] [place] [address] Performed By: #### 5 8410-2 ####[facility] [id number] [place] [address] [place] ECG COMPLETEon 09-02-2024 ECG COMPLETE Normal [facility] [id number] 09-02-2024 ECG01 Normal [facility] HCG Preg Ur Qlon 09-02-2024 HCG ( test) Ql (U) Negative Normal Negative [facility] Comment on above: Order Comment: Speci men Type: URINE SPECIMENOrdering Facility: [facility] Address: [address] [place] [address] Result Comment: This test is intended to aid in the early detection of . Very dilute urine samples, as indicated by a low specific gravity, may not contain automobile sales representative levels of hCG. This test detects intact hCG only. This test does not reliably detect hCG degradation products, including free-beta subunit and beta-core fragment. Therefore, this test may show reduced reactivity in urine after 8 weeks gestation. A number of conditions other than , including trophoblastic disease and certain non-trophoblastic neoplasms cause elevated levels of hCG. As with any assay employing mouse antibodies, the possibility exists for interference by human anti-mouse antibodies (HAMA) in the specimen. The test provides a presumptive diagnosis for . Performed By: #### 2 106-3 ####[facility] [id number] [place] [address] [place] Legionella Ag Ur Qlon 2024 Legionella sp Ag Ql (U) Negative Normal Negative [facility] Comment on above: Order Comment: Nathani clarita Type: URINE SPECIMENOrdering Facility: [facility] Address: [address] [place] [address] Result Comment: Legi onella urinary antigen test is used as an aid in diagnosis of infection with Legionella pneumophila serogroup 1. It may be detected from a few days to several months after onset of signs and symptoms despite antibiotic therapy or disease resolution. A negative result cannot exclude Legionellosis. Clinical correlation is required. Performed By: #### 3 2781-7 ####[facility] [id number] [place] [address] [place] Magnesium SerPl-mCncon 09-02 Magnesium [Mass/Vol] 2.3 mg/dL Normal 1.7-2.3 [facility] Comment on above: Order Comment: Speci men Type: BLOOD SPECIMENOrdering Facility: [facility] Address: [address] [place] [address] Performed By: #### 1 9123-9, 2777-1, 23770-6 ####[facility] [id number] [place] [address] [place] Magnesium [Mass/Vol] 2.1 mg/dL Normal 1.7-2.3 [facility] Comment on above: Order Comment: Speci men Type: BLOOD SPECIMENOrdering Facility: [facility] Address: [address] [place] [address] Performed By: #### 1 9123-9 ####[facility] [id number] [place] [address] [place] NICOTINE/COTININEon 09-02-19 25 Cotinine [Mass/Vol] <2 Normal <2 [facility] Comment on above: Order Comment: Speci men Type: BLOOD SPECIMENOrdering Facility: [facility] Address: [address] [place] [address] Result Comment: Acti ve tobacco product user:Nicotine concentration: 30 - 50 ng/mLCotinine concentration: 200 - 800 ng/mLPassive exposure to tobacco:Nicotine concentration: < 2 ng/mLCotinine concentration: < 8 ng/mLUnexposed non-tobacco user or abstinent user for > 2 weeks:Nicotine concentration: < 2 ng/mLCotinine concentration: < 2 ng/mLThis test was developed, and its performance characteristics determined by the [facility] Department of Pathology and Laboratory Medicine. It has not been cleared or approved by the FDA. The [facility] Department of Pathology and Laboratory Medicine is regulated under CLIA as qualified to perform high-complexity testing. This test is used for clinical purposes. It should not be regarded as investigational or for research. Performed By: #### N ICOT ####[facility] [id number] [place] [address] [place] Nicotine [Mass/Vol] <2 Normal <2 [facility] Comment on above: Order Comment: Speci men Type: BLOOD SPECIMENOrdering Facility: [facility] Address: [address] [place] [address] Performed By: #### N ICOT ####[facility] [id number] [place] [address] [place] NUTRITIONon 09-02-2024 NUTRITION Normal [facility] Phosphate SerPl-mCncon 09-02 Phosphate [Mass/Vol] 2.2 mg/dL Low 2.7-4.8 [facility] Comment on above: Order Comment: Speci men Type: BLOOD SPECIMENOrdering Facility: [facility] Address: [address] [place] [address] Performed By: #### 1 9123-9, 2777-1, 42613-3 ####[facility] [id number] [place] [address] [place] STREPTOCOCCUS PNEUMONIAE ANT IGEN URINEon 09-02-2024 STREPTOCOCCUS PNEUMONIAE ANTIGEN URINE Normal [facility] Comment on above: Performed By: #### S PNAG ####[facility] [id number] [place] [address] [place] THERAPY NTon 09-02-2024 THERAPY NT Normal [facility] TOXICOLOGY SCREEN, ROUTINE U RINEon 09-02-2024 Amphetamines Confirm (U) [Mass/Vol] Negative Normal Negative [facility] Comment on above: Order Comment: Speci men Type: URINE SPECIMENOrdering Facility: [facility] Address: [address] [place] [address] Result Comment: Cuto ff threshold at 1000 ng/mL. Performed By: #### U TOX2 ####[facility] [id number] [place] [address] [place] BARBITURATES, URINE Negative Normal Negative [facility] Comment on above: Order Comment: Speci men Type: URINE SPECIMENOrdering Facility: [facility] Address: [address] [place] [address] Result Comment: Cuto ff threshold at 200 ng/mL. Performed By: #### U TOX2 ####[facility] [id number] [place] [address] [place] BENZODIAZEPINES, UR Positive Abnormal Negative [facility] Comment on above: Order Comment: Speci men Type: URINE SPECIMENOrdering Facility: [facility] Address: [address] [place] [address] Result Comment: Cuto ff threshold at 200 ng/mL. Performed By: #### U TOX2 ####[facility] [id number] [place] [address] [place] Cannabinoids Screen Ql (U) Positive Abnormal Negative [facility] Comment on above: Order Comment: Speci men Type: URINE SPECIMENOrdering Facility: [facility] Address: [address] [place] [address] Result Comment: Cuto ff threshold at 50 ng/mL. Performed By: #### U TOX2 ####[facility] [id number] [place] [address] [place] Cocaine Ql (U) Negative Normal Negative [facility] Comment on above: Order Comment: Speci men Type: URINE SPECIMENOrdering Facility: [facility] Address: [address] [place] [address] Result Comment: Cuto ff threshold at 300 ng/mL. Performed By: #### U TOX2 ####[facility] [id number] [place] [address] [place] Ethanol (U) [Mass/Vol] <11 Normal <11 [facility] Comment on above: Order Comment: Speci men Type: URINE SPECIMENOrdering Facility: [facility] Address: [address] [place] [address] Performed By: #### U TOX2 ####[facility] [id number] [place] [address] [place] Opiates Screen Ql (U) Negative Normal Negative [facility] Comment on above: Order Comment: Speci men Type: URINE SPECIMENOrdering Facility: [facility] Address: [address] [place] [address] Result Comment: Cuto ff threshold at 300 ng/mL. Performed By: #### U TOX2 ####[facility] [id number] [place] [address] [place] oxyCODONE cutoff Screen (U) [Mass/Vol] Negative Normal Negative [facility] Comment on above: Order Comment: Speci men Type: URINE SPECIMENOrdering Facility: [facility] Address: [address] [place] [address] Result Comment: Cuto ff threshold at 100 ng/mL. Performed By: #### U TOX2 ####[facility] [id number] [place] [address] [place] Phencyclidine Ql (U) Negative Normal Negative [facility] Comment on above: Order Comment: Speci men Type: URINE SPECIMENOrdering Facility: [facility] Address: [address] [place] [address] Result Comment: Cuto ff threshold at 25 ng/mL. Performed By: #### U TOX2 ####[facility] [id number] [place] [address] [place] Theophylline SerPl-mCncon Theophylline [Mass/Vol] 11.1 ug/mL Normal 10.0-20.0 [facility] Comment on above: Order Comment: Speci men Type: BLOOD SPECIMENOrdering Facility: [facility] Address: [address] [place] [address] Result Comment: Refe rence ranges and high/low indicator flags are provided as general guidelines only. The treating physician must determine appropriate target levels/dosing based on the specific clinical situation. Performed By: #### 4 049-3 ####[facility] [id number] [place] [address] [place] US venous duplex LE BIon US venous duplex LE BI [facility] [address] [place] [address] [place] [address] Ultrasound Report Signed Patient: Meredith Chaidez MR#: [id number] [birth year] : 1970 Acct:[id number] Age/Sex: 54 / F ADM Date: 09/01/24 Loc: Room: [address] [place] [address] Type: DIS IN Attending Dr: Herbert Rocha DO Ordering Provider: Ruddy Orellana MD Date of Service: 09/01/24 US/US venous duplex LE BI: b/l leg swelling Copies to: MD Herbert Prieto DO BILATERAL LOWER EXTREMITY VENOUS DUPLEX INDICATION: Bilateral lower extremity edema. PROCEDURE: Color-flow duplex scanning is used to interrogate the deep venous system of the right and left lower extremities. The common femoral vein, femoral vein and popliteal vein show good compressibility with normal proximal and distal augmentation. The calf veins are compressible. US/US venous duplex LE BI IMPRESSION: NO EVIDENCE FOR DEEP VEIN THROMBOSIS OR PROXIMAL SUPERFICIAL THROMBOPHLEBITIS IN THE RIGHT OR LEFT LOWER EXTREMITY. Impression dictated by: Ashanti Marx MD09/02/2024 11:32 AM Dictation Location: [place] [address] Tech: Angelina Manzano Transcribed By: KAMRON 09/02/24 1132 Dictated By: Ashanti Marx MD 09/02/24 1132 Signed By: 09/02/24 1132 Normal [facility] Urinalysis complete panel (U )on 09-02-2024 Bacteria LM.HPF (Urine sed) [#/Area] Negative Normal Negative [facility] Comment on above: Order Comment: Speci men Type: URINE SPECIMENOrdering Facility: [facility] Address: [address] [place] [address] Performed By: #### 2 4356-8 ####[facility] [id number] [facility] [place] [address] [place] Bilirubin Ql (U) Negative Normal Negative [facility] Comment on above: Order Comment: Speci men Type: URINE SPECIMENOrdering Facility: [facility] Address: [address] [place] [address] Performed By: #### 2 4356-8 ####[facility] [id number] [place] [address] [place] Clarity (Unsp spec) Clear Normal Clear [facility] Comment on above: Order Comment: Speci men Type: URINE SPECIMENOrdering Facility: [facility] Address: [address] [place] [address] Performed By: #### 2 4356-8 ####[facility] [id number] [place] [address] [place] Color (U) Yellow Normal Yellow [facility] Comment on above: Order Comment: Speci men Type: URINE SPECIMENOrdering Facility: [facility] Address: [address] [place] [address] Performed By: #### 2 4356-8 ####[facility] [id number] [place] [address] [place] Epithelial cells LM.HPF (Urine sed) [#/Area] None Seen Normal [facility] Comment on above: Order Comment: Speci men Type: URINE SPECIMENOrdering Facility: [facility] Address: [address] [place] [address] Performed By: #### 2 4356-8 ####[facility] [id number] [place] [address] [place] Glucose Test strip (U) [Mass/Vol] Negative Normal Negative [facility] Comment on above: Order Comment: Speci men Type: URINE SPECIMENOrdering Facility: [facility] Address: [address] [place] [address] Performed By: #### 2 4356-8 ####[facility] [id number] [place] [address] [place] Hemoglobin Ql (U) 1+ Abnormal Negative [facility] Comment on above: Order Comment: Speci men Type: URINE SPECIMENOrdering Facility: [facility] Address: [address] [place] [address] Performed By: #### 2 4356-8 ####[facility] [id number] [place] [address] [place] Hyaline casts (Urine sed) [#/Area] 4-10 /LPF Abnormal 0 /LPF [facility] Comment on above: Order Comment: Speci men Type: URINE SPECIMENOrdering Facility: [facility] Address: [address] [place] [address] Performed By: #### 2 4356-8 ####[facility] [id number] [place] [address] [place] Ketones Ql (U) Trace Abnormal Negative [facility] Comment on above: Order Comment: Speci men Type: URINE SPECIMENOrdering Facility: [facility] Address: [address] [place] [address] Performed By: #### 2 4356-8 ####[facility] [id number] [place] [address] [place] Leukocyte esterase Test strip Ql (U) Negative Normal Negative [facility] Comment on above: Order Comment: Speci men Type: URINE SPECIMENOrdering Facility: [facility] Address: [address] [place] [address] Performed By: #### 2 4356-8 ####[facility] [id number] [place] [address] [place] Nitrite Ql (U) Negative Normal Negative [facility] Comment on above: Order Comment: Speci men Type: URINE SPECIMENOrdering Facility: [facility] Address: [address] [place] [address] Performed By: #### 2 4356-8 ####[facility] [id number] [place] [address] [place] pH (U) 6.0 [pH] Normal <8.5 [facility] Comment on above: Order Comment: Speci men Type: URINE SPECIMENOrdering Facility: [facility] Address: [address] [place] [address] Performed By: #### 2 4356-8 ####[facility] [id number] [place] [address] [place] Protein (U) [Mass/Vol] Trace Abnormal Negative [facility] Comment on above: Order Comment: Speci men Type: URINE SPECIMENOrdering Facility: [facility] Address: [address] [place] [address] Performed By: #### 2 4356-8 ####[facility]IA [id number] [place] [address] [place] RBC LM.HPF (Urine sed) [#/Area] 11-20 /HPF Abnormal 0-2 /HPF [facility] Comment on above: Order Comment: Speci men Type: URINE SPECIMENOrdering Facility: [facility] Address: [address] [place] [address] Performed By: #### 2 4356-8 ####[facility] [id number] [place] [address] [place] Specific gravity (U) [Rel density] 1.022 Normal 1.005-1.030 [facility] Comment on above: Order Comment: Speci men Type: URINE SPECIMENOrdering Facility: [facility] Address: [address] [place] [address] Performed By: #### 2 4356-8 ####[facility] [id number] [place] [address] [place] Urobilinogen Ql (U) 0.2 EU/dL Normal 0.2-1.0 EU/dL [facility] Comment on above: Order Comment: Speci men Type: URINE SPECIMENOrdering Facility: [facility] Address: [address] [place] [address] Performed By: #### 2 4356-8 ####[facility]IA [id number] [place] [address] [place] WBC LM.HPF (Urine sed) [#/Area] 0-5 /HPF Normal 0-5 /HPF [facility] Comment on above: Order Comment: Speci men Type: URINE SPECIMENOrdering Facility: [facility] Address: [address] [place] [address] Performed By: #### 2 4356-8 ####[facility] [id number] [place] [address] [place] ARTERIAL BLOOD GASESon 09-01 Base excess Calc (Bld) [Moles/Vol] 3 mmol/L High 0-2 [facility] Comment on above: Order Comment: Speci men Type: ARTERIAL BLOOD SPECIMENOrdering Facility: [facility] Address: [address] [place] [address] Performed By: #### A LLBG ####[facility] [id number] [place] [address] [place] Body temperature 98.96 [degF] Normal [facility] Comment on above: Order Comment: Speci men Type: ARTERIAL BLOOD SPECIMENOrdering Facility: [facility] Address: [address] [place] [address] Performed By: #### A LLBG ####[facility]IA [id number] [place] [address] [place] Calcium.ionized (Bld) [Mass/Vol] 1.29 mmol/L Normal 1.08-1.30 [facility] Comment on above: Order Comment: Speci men Type: ARTERIAL BLOOD SPECIMENOrdering Facility: [facility] Address: [address] [place] [address] Performed By: #### A LLBG ####[facility]IA [id number] [place] [address] [place] Calcium.ionized adjusted to pH 7.4 (BldA) [Moles/Vol] 1.26 mmol/L Normal 1.08-1.30 [facility] Comment on above: Order Comment: Speci men Type: ARTERIAL BLOOD SPECIMENOrdering Facility: [facility] Address: [address] [place] [address] Performed By: #### A LLBG ####[facility] [id number] [place] [address] [place] Carboxyhemoglobin (BldA) [Mass fraction] 1.1 % Normal 0.0-2.0 [facility] Comment on above: Order Comment: Speci men Type: ARTERIAL BLOOD SPECIMENOrdering Facility: [facility] Address: [address] [place] [address] Result Comment: Carb oxyhemoglobin Reference Range for Smokers: 2.0-8.0% Performed By: #### A LLBG ####[facility]IA [id number] [place] [address] [place] CO2 (Bld) [Partial pressure] 54 mm Hg High 36-46 [facility] Comment on above: Order Comment: Speci men Type: ARTERIAL BLOOD SPECIMENOrdering Facility: [facility] Address: [address] [place] [address] Performed By: #### A LLBG ####[facility] [id number] [place] [address] [place] CO2 adjusted to patient's actual temperature (Bld) [Partial pressure] 55 mmHg High 36-46 [facility] Comment on above: Order Comment: Speci men Type: ARTERIAL BLOOD SPECIMENOrdering Facility: [facility] Address: [address] [place] [address] Performed By: #### A LLBG ####[facility] [id number] [place] [id number] [place] FIO2 60 % Normal [facility] Comment on above: Order Comment: Speci men Type: ARTERIAL BLOOD SPECIMENOrdering Facility: [facility] Address: [address] [place] [address] Performed By: #### A LLBG ####[facility] [id number] [place] [address] [place] Glucose [Mass/Vol] 182 mg/dL High 60-105 [facility] Comment on above: Order Comment: Speci men Type: ARTERIAL BLOOD SPECIMENOrdering Facility: [facility] Address: [address] [place] [address] Performed By: #### A LLBG ####[facility] [id number] [place] [address] [place] HCO3 (Bld) [Moles/Vol] 29 mmol/L High 22-26 [facility] Comment on above: Order Comment: Speci men Type: ARTERIAL BLOOD SPECIMENOrdering Facility: [facility] Address: [address] [place] [address] Performed By: #### A LLBG ####[facility] [id number] [place] [address] [place] Hematocrit (Bld) [Volume fraction] 44.5 % Normal 36.0-46.0 [facility] Comment on above: Order Comment: Speci men Type: ARTERIAL BLOOD SPECIMENOrdering Facility: [facility] Address: [address] [place] [address] Performed By: #### A LLBG ####[facility] [id number] [place] [address] [place] Hemoglobin (Bld) [Mass/Vol] 14.5 g/dL Normal 11.5-15.5 [facility] Comment on above: Order Comment: Speci men Type: ARTERIAL BLOOD SPECIMENOrdering Facility: [facility] Address: [address] [place] [address] Performed By: #### A LLBG ####[facility] [id number] [place] [address] [place] Lactate [Moles/Vol] 2.2 mmol/L Normal 0.5-2.2 [facility] Comment on above: Order Comment: Speci men Type: ARTERIAL BLOOD SPECIMENOrdering Facility: [facility] Address: [address] [place] [address] Performed By: #### A LLBG ####[facility] [id number] [place] [address] [place] Methemoglobin (Bld) [Mass fraction] 1.6 % High 0.0-1.5 [facility] Comment on above: Order Comment: Speci men Type: ARTERIAL BLOOD SPECIMENOrdering Facility: [facility] Address: [address] [place] [address] Performed By: #### A LLBG ####[facility] [id number] [place] [address] [place] O2 THERAPY VENT=Ventilator Normal [facility] Comment on above: Order Comment: Speci men Type: ARTERIAL BLOOD SPECIMENOrdering Facility: [facility] Address: [address] [place] [address] Performed By: #### A LLBG ####[facility] [id number] [place] [address] [place] Oxygen (Bld) [Partial pressure] 122 mm Hg High 85-95 [facility] Comment on above: Order Comment: Speci men Type: ARTERIAL BLOOD SPECIMENOrdering Facility: [facility] Address: [address] [place] [address] Performed By: #### A LLBG ####[facility] [id number] [place] [id number] [place] Oxygen adjusted to patient's actual temperature (Bld) [Partial pressure] 123 mmHg High 85-95 [facility] Comment on above: Order Comment: Speci men Type: ARTERIAL BLOOD SPECIMENOrdering Facility: [facility] Address: [address] [place] [address] Performed By: #### A LLBG ####[facility] [id number] [place] [address] [place] Oxyhemoglobin (BldA) [Mass fraction] 96 % Normal 95-98 [facility] Comment on above: Order Comment: Speci men Type: ARTERIAL BLOOD SPECIMENOrdering Facility: [facility] Address: [address] [place] [address] Performed By: #### A LLBG ####[facility] [id number] [place] [address] [place] PEEP/CPAP 10 cmH2O Normal [facility] Comment on above: Order Comment: Speci men Type: ARTERIAL BLOOD SPECIMENOrdering Facility: [facility] Address: [address] [place] [address] Performed By: #### A LLBG ####[facility] [id number] [place] [address] [place] pH (Bld) 7.36 [pH] Normal 7.35-7.45 [facility] Comment on above: Order Comment: Speci men Type: ARTERIAL BLOOD SPECIMENOrdering Facility: [facility] Address: [address] [place] [address] Performed By: #### A LLBG ####[facility] [id number] [place] [address] [place] pH adjusted to patient's actual temperature (Bld) 7.35 Normal 7.35-7.45 [facility] Comment on above: Order Comment: Speci men Type: ARTERIAL BLOOD SPECIMENOrdering Facility: [facility] Address: [address] [place] [address] Performed By: #### A LLBG ####[facility] [id number] [place] [address] [place] PO2 / FIO2 RATIO 203 mmHg Low >[address] [facility] Comment on above: Order Comment: Speci men Type: ARTERIAL BLOOD SPECIMENOrdering Facility: [facility] Address: [address] [place], [place] [id number] Performed By: #### A LLBG ####[facility] [id number] [place] [address] [place] Potassium [Moles/Vol] 4.0 mmol/L Normal 3.7-5.1 [facility] Comment on above: Order Comment: Speci men Type: ARTERIAL BLOOD SPECIMENOrdering Facility: [facility] Address: [address] [place] [address] Performed By: #### A LLBG ####[facility] LABCLIA [id number] [address] [place] Order Comment: Speci men Type: BLOOD SPECIMENOrdering Facility: [facility] Address: [address] [place], [place] [id number] Performed By: #### 2 4321-2 ####[facility] [id number] [place] [address] [place] Sodium [Moles/Vol] 135 mmol/L Low 136-144 [facility] Comment on above: Order Comment: Speci men Type: ARTERIAL BLOOD SPECIMENOrdering Facility: [facility] Address: [address] [place] [address] Performed By: #### A LLBG ####[facility] [id number] [address] [place] Order Comment: Speci men Type: BLOOD SPECIMENOrdering Facility: [facility] Address: [address] [place], [place] [id number] Performed By: #### 2 4321-2 ####[facility]CL[facility] [id number] [place] [address] [place] Base excess Calc (Bld) [Moles/Vol] 2 mmol/L Normal 0-2 [facility] Comment on above: Order Comment: Speci men Type: ARTERIAL BLOOD SPECIMENOrdering Facility: [facility] Address: [address] [place] [address] Performed By: #### A LLBG ####[facility]CL[facility] [id number] [place] [address] [place] Body temperature 98.96 [degF] Normal [facility] Comment on above: Order Comment: Speci men Type: ARTERIAL BLOOD SPECIMENOrdering Facility: [facility] Address: [address] [place] [address] Performed By: #### A LLBG ####[facility] [id number] [place] [address] [place] Calcium.ionized (Bld) [Mass/Vol] 1.28 mmol/L Normal 1.08-1.30 [facility] Comment on above: Order Comment: Speci men Type: ARTERIAL BLOOD SPECIMENOrdering Facility: [facility] Address: [address] [place] [address] Performed By: #### A LLBG ####[facility] LABIA [id number] [place] [address] [place] Calcium.ionized adjusted to pH 7.4 (BldA) [Moles/Vol] 1.21 mmol/L Normal 1.08-1.30 [facility] Comment on above: Order Comment: Speci men Type: ARTERIAL BLOOD SPECIMENOrdering Facility: [facility] Address: [address] [place] [address] Performed By: #### A LLBG ####[facility] [id number] [place] [address] [place] Carboxyhemoglobin (BldA) [Mass fraction] 0.7 % Normal 0.0-2.0 [facility] Comment on above: Order Comment: Speci men Type: ARTERIAL BLOOD SPECIMENOrdering Facility: [facility] Address: [address] [place] [address] Result Comment: Carb oxyhemoglobin Reference Range for Smokers: 2.0-8.0% Performed By: #### A LLBG ####[facility]CL[facility] [id number] [place] [address] [place] CO2 (Bld) [Partial pressure] 64 mm Hg High 36-46 [facility] Comment on above: Order Comment: Speci men Type: ARTERIAL BLOOD SPECIMENOrdering Facility: [facility] Address: [address] [place] [address] Performed By: #### A LLBG ####[facility]CL[facility] [id number] [place] [address] [place] CO2 adjusted to patient's actual temperature (Bld) [Partial pressure] 64 mmHg High 36-46 [facility] Comment on above: Order Comment: Speci men Type: ARTERIAL BLOOD SPECIMENOrdering Facility: [facility] Address: [address] [place] [address] Performed By: #### A LLBG ####[facility]CL[facility] [id number] [place] [address] [place] FIO2 70 % Normal [facility] Comment on above: Order Comment: Speci men Type: ARTERIAL BLOOD SPECIMENOrdering Facility: [facility] Address: [address] [place] [address] Performed By: #### A LLBG ####[facility]CL[facility] [id number] [place] [address] [place] Glucose [Mass/Vol] 152 mg/dL High 60-105 [facility] Comment on above: Order Comment: Speci men Type: ARTERIAL BLOOD SPECIMENOrdering Facility: [facility] Address: [address] [place] [address] Performed By: #### A LLBG ####[facility]CL[facility] [id number] [place] [address] [place] HCO3 (Bld) [Moles/Vol] 30 mmol/L High 22-26 [facility] Comment on above: Order Comment: Speci men Type: ARTERIAL BLOOD SPECIMENOrdering Facility: [facility] Address: [address] [place] [address] Performed By: #### A LLBG ####[facility] [id number] [place] [address] [place] Hematocrit (Bld) [Volume fraction] 44.7 % Normal 36.0-46.0 [facility] Comment on above: Order Comment: Speci men Type: ARTERIAL BLOOD SPECIMENOrdering Facility: [facility] Address: [address] [place] [address] Performed By: #### A LLBG ####[facility] LABIA [id number] [place] [address] [place] Hemoglobin (Bld) [Mass/Vol] 14.6 g/dL Normal 11.5-15.5 [facility] Comment on above: Order Comment: Speci men Type: ARTERIAL BLOOD SPECIMENOrdering Facility: [facility] Address: [address] [place] [address] Performed By: #### A LLBG ####[facility] LABIA [id number] [place] [address] [place] Lactate [Moles/Vol] 1.7 mmol/L Normal 0.5-2.2 [facility] Comment on above: Order Comment: Speci men Type: ARTERIAL BLOOD SPECIMENOrdering Facility: [facility] Address: [address] [place] [address] Performed By: #### A LLBG ####[facility]CL[facility] [id number] [place] [address] [place] Methemoglobin (Bld) [Mass fraction] 0.9 % Normal 0.0-1.5 [facility] Comment on above: Order Comment: Speci men Type: ARTERIAL BLOOD SPECIMENOrdering Facility: [facility] Address: [address] [place] [place] [id number] Performed By: #### A LLBG ####[facility]CL[facility] [id number] [place] [id number] [place] O2 THERAPY VENT=Ventilator Normal [facility] Comment on above: Order Comment: Speci men Type: ARTERIAL BLOOD SPECIMENOrdering Facility: [facility] Address: [address] [place] [id number] Performed By: #### A LLBG ####[facility]CL[facility] [id number] [place] [address] [place] Oxygen (Bld) [Partial pressure] 113 mm Hg High 85-95 [facility] Comment on above: Order Comment: Speci men Type: ARTERIAL BLOOD SPECIMENOrdering Facility: [facility] Address: [address] [place] [address] Performed By: #### A LLBG ####[facility]CL[facility] [id number] [place] [address] [place] Oxygen adjusted to patient's actual temperature (Bld) [Partial pressure] 115 mmHg High 85-95 [facility] Comment on above: Order Comment: Speci men Type: ARTERIAL BLOOD SPECIMENOrdering Facility: [facility] Address: [address] [place] [id number] Performed By: #### A LLBG ####[facility]CL[facility] [id number] [place] [id number] [place] Oxyhemoglobin (BldA) [Mass fraction] 97 % Normal 95-98 [facility] Comment on above: Order Comment: Speci men Type: ARTERIAL BLOOD SPECIMENOrdering Facility: [facility] Address: [address] [place] [id number] Performed By: #### A LLBG ####[facility]CLIA [id number] [place] [address] [place] PEEP/CPAP 10 cmH2O Normal [facility] Comment on above: Order Comment: Speci men Type: ARTERIAL BLOOD SPECIMENOrdering Facility: [facility] Address: [address] [place] [address] Performed By: #### A LLBG ####[facility]CL[facility] [id number] [place] [address] [place] pH (Bld) 7.29 [pH] Low 7.35-7.45 [facility] Comment on above: Order Comment: Speci men Type: ARTERIAL BLOOD SPECIMENOrdering Facility: [facility] Address: [address] [place] [address] Performed By: #### A LLBG ####[facility]CL[facility] [id number] [place] [address] [place] pH adjusted to patient's actual temperature (Bld) 7.29 Low 7.35-7.45 [facility] Comment on above: Order Comment: Speci men Type: ARTERIAL BLOOD SPECIMENOrdering Facility: [facility] Address: [address] [place] [address] Performed By: #### A LLBG ####[facility]CLIA [id number] [place] [address] [place] PO2 / FIO2 RATIO 161 mmHg Low >[address] [facility] Comment on above: Order Comment: Speci men Type: ARTERIAL BLOOD SPECIMENOrdering Facility: [facility] Address: [address] [place] [address] Performed By: #### A LLBG ####[facility]CLIA [id number] [place] [address] [place] Potassium [Moles/Vol] 4.2 mmol/L Normal 3.5-5.1 [facility] Comment on above: Order Comment: Speci men Type: ARTERIAL BLOOD SPECIMENOrdering Facility: [facility] Address: [address] [place] [address] Performed By: #### A LLBG ####[facility]CLIA [id number] [place] [address] [place] Performed By: #### H S TROP, BNP, CMP, CK #### [facility] [address] Sodium [Moles/Vol] 136 mmol/L Normal 136-144 [facility] Comment on above: Order Comment: Speci men Type: ARTERIAL BLOOD SPECIMENOrdering Facility: [facility] Address: [address] [place] [address] Performed By: #### A LLBG ####[facility]CL[facility] [id number] [place] [address] [place] Base excess Calc (Bld) [Moles/Vol] 1 mmol/L Normal 0-2 [facility] Comment on above: Order Comment: Speci men Type: ARTERIAL BLOOD SPECIMENOrdering Facility: [facility] Address: [address] [place] [address] Performed By: #### A LLBG ####[facility]CL[facility] [id number] [place] [address] [place] Body temperature 98.78 [degF] Normal [facility] Comment on above: Order Comment: Speci men Type: ARTERIAL BLOOD SPECIMENOrdering Facility: [facility] Address: [address] [place] [address] Performed By: #### A LLBG ####[facility]CLIA [id number] [place] [address] [place] Calcium.ionized (Bld) [Mass/Vol] 1.29 mmol/L Normal 1.08-1.30 [facility] Comment on above: Order Comment: Speci men Type: ARTERIAL BLOOD SPECIMENOrdering Facility: [facility] Address: [address] [place] [address] Performed By: #### A LLBG ####[facility]CL[facility] [id number] [place] [address] [place] Calcium.ionized adjusted to pH 7.4 (BldA) [Moles/Vol] 1.19 mmol/L Normal 1.08-1.30 [facility] Comment on above: Order Comment: Speci men Type: ARTERIAL BLOOD SPECIMENOrdering Facility: [facility] Address: [address] [place] [address] Performed By: #### A LLBG ####[facility]CL[facility] [id number] [place] [address] [place] Carboxyhemoglobin (BldA) [Mass fraction] 0.6 % Normal 0.0-2.0 [facility] Comment on above: Order Comment: Speci men Type: ARTERIAL BLOOD SPECIMENOrdering Facility: [facility] Address: [address] [place] [address] Result Comment: Carb oxyhemoglobin Reference Range for Smokers: 2.0-8.0% Performed By: #### A LLBG ####[facility] LABCLIA [id number] [place] [address] [place] CO2 (Bld) [Partial pressure] 71 mm Hg High 36-46 [facility] Comment on above: Order Comment: Speci men Type: ARTERIAL BLOOD SPECIMENOrdering Facility: [facility] Address: [address] [place] [address] Performed By: #### A LLBG ####[facility]CL[facility] [id number] [place] [address] [place] CO2 adjusted to patient's actual temperature (Bld) [Partial pressure] 71 mmHg High 36-46 [facility] Comment on above: Order Comment: Speci men Type: ARTERIAL BLOOD SPECIMENOrdering Facility: [facility] Address: [address] [place] [address] Performed By: #### A LLBG ####[facility]CL[facility] [id number] [place] [address] [place] FIO2 70 % Normal [facility] Comment on above: Order Comment: Speci men Type: ARTERIAL BLOOD SPECIMENOrdering Facility: [facility] Address: [address] [place] [address] Performed By: #### A LLBG ####[facility] LABCLIA [id number] [place] [address] [place] Glucose [Mass/Vol] 155 mg/dL High 60-105 [facility] Comment on above: Order Comment: Speci men Type: ARTERIAL BLOOD SPECIMENOrdering Facility: [facility] Address: [address] [place] [address] Performed By: #### A LLBG ####[facility]CL[facility] [id number] [place] [address] [place] HCO3 (Bld) [Moles/Vol] 30 mmol/L High 22-26 [facility] Comment on above: Order Comment: Speci men Type: ARTERIAL BLOOD SPECIMENOrdering Facility: [facility] Address: [address] [place] [address] Performed By: #### A LLBG ####[facility]CL[facility] [id number] [place] [address] [place] Hematocrit (Bld) [Volume fraction] 45.3 % Normal 36.0-46.0 [facility] Comment on above: Order Comment: Speci men Type: ARTERIAL BLOOD SPECIMENOrdering Facility: [facility] Address: [address] [place] [address] Performed By: #### A LLBG ####[facility] LABCLIA [id number] [place] [address] [place] Hemoglobin (Bld) [Mass/Vol] 14.8 g/dL Normal 11.5-15.5 [facility] Comment on above: Order Comment: Speci men Type: ARTERIAL BLOOD SPECIMENOrdering Facility: [facility] Address: [address] [place] [address] Performed By: #### A LLBG ####[facility] LABCLIA [id number] [place] [address] [place] Lactate [Moles/Vol] 1.4 mmol/L Normal 0.5-2.2 [facility] Comment on above: Order Comment: Speci men Type: ARTERIAL BLOOD SPECIMENOrdering Facility: [facility] Address: [address] [place] [address] Performed By: #### A LLBG ####[facility]CL[facility] [id number] [place] [address] [place] Methemoglobin (Bld) [Mass fraction] 0.7 % Normal 0.0-1.5 [facility] Comment on above: Order Comment: Speci men Type: ARTERIAL BLOOD SPECIMENOrdering Facility: [facility] Address: [address] [place] [address] Performed By: #### A LLBG ####[facility] LABCL[facility] [id number] [place] [address] [place] O2 THERAPY VENT=Ventilator Normal [facility] Comment on above: Order Comment: Speci men Type: ARTERIAL BLOOD SPECIMENOrdering Facility: [facility] Address: [address] [place] [address] Performed By: #### A LLBG ####[facility] LABCL[facility] [id number] [place] [address] [place] Oxygen (Bld) [Partial pressure] 70 mm Hg Low 85-95 [facility] Comment on above: Order Comment: Speci men Type: ARTERIAL BLOOD SPECIMENOrdering Facility: [facility] Address: [address] [place], [place] [id number] Performed By: #### A LLBG ####[facility] LABCLIA [id number] [place] [id number] [place] Oxygen adjusted to patient's actual temperature (Bld) [Partial pressure] 71 mmHg Low 85-95 [facility] Comment on above: Order Comment: Speci men Type: ARTERIAL BLOOD SPECIMENOrdering Facility: [facility] Address: [address] [place] [address] Performed By: #### A LLBG ####[facility]CLIA [id number] [place] [address] [place] Oxyhemoglobin (BldA) [Mass fraction] 91 % Low 95-98 [facility] Comment on above: Order Comment: Speci men Type: ARTERIAL BLOOD SPECIMENOrdering Facility: [facility] Address: [address] [place] [address] Performed By: #### A LLBG ####[facility] LABCLIA [id number] [place] [address] [place] PEEP/CPAP 8 cmH2O Normal [facility] Comment on above: Order Comment: Speci men Type: ARTERIAL BLOOD SPECIMENOrdering Facility: [facility] Address: [address] [place] [address] Performed By: #### A LLBG ####[facility] LABCLIA [id number] [place] [address] [place] pH (Bld) 7.25 [pH] Low 7.35-7.45 [facility] Comment on above: Order Comment: Speci men Type: ARTERIAL BLOOD SPECIMENOrdering Facility: [facility] Address: [address] [place] [address] Performed By: #### A LLBG ####[facility]CL[facility] [id number] [place] [address] [place] pH adjusted to patient's actual temperature (Bld) 7.25 Low 7.35-7.45 [facility] Comment on above: Order Comment: Speci men Type: ARTERIAL BLOOD SPECIMENOrdering Facility: [facility] Address: [address] [place], [place] [id number] Performed By: #### A LLBG ####[facility] LABCLIA [id number] [place] [address] [place] PO2 / FIO2 RATIO 100 mmHg Low >[address] [facility] Comment on above: Order Comment: Speci men Type: ARTERIAL BLOOD SPECIMENOrdering Facility: [facility] Address: [address] [place] [address] Performed By: #### A LLBG ####[facility]CL[facility] [id number] [place] [address] [place] Potassium [Moles/Vol] 4.4 mmol/L Normal 3.5-5.0 [facility] Comment on above: Order Comment: Speci men Type: ARTERIAL BLOOD SPECIMENOrdering Facility: [facility] Address: [address] [place] [address] Performed By: #### A LLBG ####[facility]CL[facility] [id number] [place] [address] [place] Sodium [Moles/Vol] 138 mmol/L Normal 136-144 [facility] Comment on above: Order Comment: Speci men Type: ARTERIAL BLOOD SPECIMENOrdering Facility: [facility] Address: [address] [place] [address] Performed By: #### A LLBG ####[facility]CL[facility] [id number] [place] [address] [place] Base deficit (BldA) [Moles/Vol] mmol/L Normal -2-0 [facility] Comment on above: Order Comment: Speci men Type: ARTERIAL BLOOD SPECIMENOrdering Facility: [facility] Address: [address] [place] [address] Performed By: #### A LLBG ####[facility]CL[facility] [id number] [place] [address] [place] Base excess Calc (Bld) [Moles/Vol] 0 mmol/L Normal 0-2 [facility] Comment on above: Order Comment: Speci men Type: ARTERIAL BLOOD SPECIMENOrdering Facility: [facility] Address: [address] [place] [address] Performed By: #### A LLBG ####[facility] LABIA [id number] [place] [address] [place] Body temperature 97.34 [degF] Normal [facility] Comment on above: Order Comment: Speci men Type: ARTERIAL BLOOD SPECIMENOrdering Facility: [facility] Address: [address] [place] [address] Performed By: #### A LLBG ####[facility] [id number] [place] [address] [place] Calcium.ionized (Bld) [Mass/Vol] 1.33 mmol/L High 1.08-1.30 [facility] Comment on above: Order Comment: Speci men Type: ARTERIAL BLOOD SPECIMENOrdering Facility: [facility] Address: [address] [place] [address] Performed By: #### A LLBG ####[facility] [id number] [place] [address] [place] Calcium.ionized adjusted to pH 7.4 (BldA) [Moles/Vol] 1.19 mmol/L Normal 1.08-1.30 [facility] Comment on above: Order Comment: Speci men Type: ARTERIAL BLOOD SPECIMENOrdering Facility: [facility] Address: [address] [place] [address] Performed By: #### A LLBG ####[facility] LABIA [id number] [place] [address] [place] Carboxyhemoglobin (BldA) [Mass fraction] 0.4 % Normal 0.0-2.0 [facility] Comment on above: Order Comment: Speci men Type: ARTERIAL BLOOD SPECIMENOrdering Facility: [facility] Address: [address] [place] [address] Performed By: #### A LLBG ####[facility] LABIA [id number] [address] [address] [place] CO2 (Bld) [Partial pressure] 79 mm Hg High 36-46 [facility] Comment on above: Order Comment: Speci men Type: ARTERIAL BLOOD SPECIMENOrdering Facility: [facility] Address: [address] [place] [address] Performed By: #### A LLBG ####[facility]CL[facility] [id number] [place] [address] [place] CO2 adjusted to patient's actual temperature (Bld) [Partial pressure] 76 mmHg High 36-46 [facility] Comment on above: Order Comment: Speci men Type: ARTERIAL BLOOD SPECIMENOrdering Facility: [facility] Address: [address] [place] [address] Performed By: #### A LLBG ####[facility]CL[facility] [id number] [place] [address] [place] FIO2 70 % Normal [facility] Comment on above: Order Comment: Speci men Type: ARTERIAL BLOOD SPECIMENOrdering Facility: [facility] Address: [address] [place] [address] Performed By: #### A LLBG ####[facility]CL[facility] [id number] [place] [address] [place] Glucose [Mass/Vol] 174 mg/dL High 60-105 [facility] Comment on above: Order Comment: Speci men Type: ARTERIAL BLOOD SPECIMENOrdering Facility: [facility] Address: [address] [place] [address] Performed By: #### A LLBG ####[facility]CL[facility] [id number] [place] [address] [place] HCO3 (Bld) [Moles/Vol] 30 mmol/L High 22-26 [facility] Comment on above: Order Comment: Speci men Type: ARTERIAL BLOOD SPECIMENOrdering Facility: [facility] Address: [address] [place] [address] Performed By: #### A LLBG ####[facility]CL[facility] [id number] [place] [address] [place] Hematocrit (Bld) [Volume fraction] 46.5 % High 36.0-46.0 [facility] Comment on above: Order Comment: Speci men Type: ARTERIAL BLOOD SPECIMENOrdering Facility: [facility] Address: [address] [place] [address] Performed By: #### A LLBG ####[facility]CL[facility] [id number] [place] [address] [place] Hemoglobin (Bld) [Mass/Vol] 15.2 g/dL Normal 11.5-15.5 [facility] Comment on above: Order Comment: Speci men Type: ARTERIAL BLOOD SPECIMENOrdering Facility: [facility] Address: [address] [place] [address] Performed By: #### A LLBG ####[facility] LABIA [id number] [place] [address] [place] Lactate [Moles/Vol] 1.1 mmol/L Normal 0.5-2.2 [facility] Comment on above: Order Comment: Speci men Type: ARTERIAL BLOOD SPECIMENOrdering Facility: [facility] Address: [address] [place] [address] Performed By: #### A LLBG ####[facility] [id number] [place] [address] [place] Methemoglobin (Bld) [Mass fraction] 0.6 % Normal 0.0-1.5 [facility] Comment on above: Order Comment: Speci men Type: ARTERIAL BLOOD SPECIMENOrdering Facility: [facility] Address: [address] [place] [address] Performed By: #### A LLBG ####[facility]IA [id number] [address] [place] [id number], [place] [address] [place] O2 THERAPY VENT=Ventilator Normal [facility] Comment on above: Order Comment: Speci men Type: ARTERIAL BLOOD SPECIMENOrdering Facility: [facility] Address: [address] [place] [address] Performed By: #### A LLBG ####[facility] LABCLIA [id number] [address] [address] [place] Oxygen (Bld) [Partial pressure] 136 mm Hg High 85-95 [facility] Comment on above: Order Comment: Speci men Type: ARTERIAL BLOOD SPECIMENOrdering Facility: [facility] Address: [address] [place] [id number] Performed By: #### A LLBG ####[facility] LABCL[facility] [id number] [address] [place] Oxygen adjusted to patient's actual temperature (Bld) [Partial pressure] 131 mmHg High 85-95 [facility] Comment on above: Order Comment: Speci men Type: ARTERIAL BLOOD SPECIMENOrdering Facility: [facility] Address: [address] [place] [address] Performed By: #### A LLBG ####[facility] LABCL[facility] [id number] [place] [id number] [place] Oxyhemoglobin (BldA) [Mass fraction] 97 % Normal 95-98 [facility] Comment on above: Order Comment: Speci men Type: ARTERIAL BLOOD SPECIMENOrdering Facility: [facility] Address: [address] [place] [address] Performed By: #### A LLBG ####[facility] LABCL[facility] [id number] [place] [id number] [place] pH (Bld) 7.21 [pH] Low 7.35-7.45 [facility] Comment on above: Order Comment: Speci men Type: ARTERIAL BLOOD SPECIMENOrdering Facility: [facility] Address: [address] [place] [address] Performed By: #### A LLBG ####[facility] LABCL[facility] [id number] [place] [address] [place] pH adjusted to patient's actual temperature (Bld) 7.22 Low 7.35-7.45 [facility] Comment on above: Order Comment: Speci men Type: ARTERIAL BLOOD SPECIMENOrdering Facility: [facility] Address: [address] [place] [address] Performed By: #### A LLBG ####[facility] LABCL[facility] [id number] [place] [address] [place] PO2 / FIO2 RATIO 194 mmHg Low >[address] [facility] Comment on above: Order Comment: Speci men Type: ARTERIAL BLOOD SPECIMENOrdering Facility: [facility] Address: [address] [place] [address] Performed By: #### A LLBG ####[facility]CL[facility] [id number] [place] [address] [place] Potassium [Moles/Vol] 4.1 mmol/L Normal 3.5-5.0 [facility] Comment on above: Order Comment: Speci men Type: ARTERIAL BLOOD SPECIMENOrdering Facility: [facility] Address: [address] [place] [address] Performed By: #### A LLBG ####[facility]CL[facility] [id number] [place] [address] [place] Sodium [Moles/Vol] 139 mmol/L Normal 136-144 [facility] Comment on above: Order Comment: Speci men Type: ARTERIAL BLOOD SPECIMENOrdering Facility: [facility] Address: [address] [place] [address] Performed By: #### A LLBG ####[facility]CL[facility] [id number] [place] [address] [place] Base deficit (BldA) [Moles/Vol] -1 mmol/L Normal -2-0 [facility] Comment on above: Order Comment: Speci men Type: ARTERIAL BLOOD SPECIMENOrdering Facility: [facility] Address: [address] [place] [address] Performed By: #### A LLBG ####[facility] [id number] [place] [address] [place] Body temperature 97.34 [degF] Normal [facility] Comment on above: Order Comment: Speci men Type: ARTERIAL BLOOD SPECIMENOrdering Facility: [facility] Address: [address] [place] [address] Performed By: #### A LLBG ####[facility] [id number] [place] [address] [place] Calcium.ionized (Bld) [Mass/Vol] 1.30 mmol/L Normal 1.08-1.30 [facility] Comment on above: Order Comment: Speci men Type: ARTERIAL BLOOD SPECIMENOrdering Facility: [facility] Address: [address] [place] [address] Performed By: #### A LLBG ####[facility] [id number] [place] [address] [place] Calcium.ionized adjusted to pH 7.4 (BldA) [Moles/Vol] 1.20 mmol/L Normal 1.08-1.30 [facility] Comment on above: Order Comment: Speci men Type: ARTERIAL BLOOD SPECIMENOrdering Facility: [facility] Address: [address] [place] [address] Performed By: #### A LLBG ####[facility] [id number] [place] [address] [place] Carboxyhemoglobin (BldA) [Mass fraction] 0.5 % Normal 0.0-2.0 [facility] Comment on above: Order Comment: Speci men Type: ARTERIAL BLOOD SPECIMENOrdering Facility: [facility] Address: [address], [place] [address] Result Comment: Carb oxyhemoglobin Reference Range for Smokers: 2.0-8.0% Performed By: #### A LLBG ####[facility]CL[facility] [id number] [place] [address] [place] CO2 (Bld) [Partial pressure] 66 mm Hg High 36-46 [facility] Comment on above: Order Comment: Speci men Type: ARTERIAL BLOOD SPECIMENOrdering Facility: [facility] Address: [address] [place] [address] Performed By: #### A LLBG ####[facility]CL[facility] [id number] [place] [address] [place] CO2 adjusted to patient's actual temperature (Bld) [Partial pressure] 64 mmHg High 36-46 [facility] Comment on above: Order Comment: Speci men Type: ARTERIAL BLOOD SPECIMENOrdering Facility: [facility] Address: [address] [place] [address] Performed By: #### A LLBG ####[facility]CL[facility] [id number] [place] [address] [place] FIO2 70 % Normal [facility] Comment on above: Order Comment: Speci men Type: ARTERIAL BLOOD SPECIMENOrdering Facility: [facility] Address: [address] [place] [address] Performed By: #### A LLBG ####[facility]CL[facility] [id number] [place] [address] [place] Glucose [Mass/Vol] 148 mg/dL High 60-105 [facility] Comment on above: Order Comment: Speci men Type: ARTERIAL BLOOD SPECIMENOrdering Facility: [facility] Address: [address] [place] [address] Performed By: #### A LLBG ####[facility] LABCL[facility] [id number] [place] [address] [place] HCO3 (Bld) [Moles/Vol] 28 mmol/L High 22-26 [facility] Comment on above: Order Comment: Speci men Type: ARTERIAL BLOOD SPECIMENOrdering Facility: [facility] Address: [address] [place] [address] Performed By: #### A LLBG ####[facility] [id number] [place] [address] [place] Hematocrit (Bld) [Volume fraction] 46.5 % High 36.0-46.0 [facility] Comment on above: Order Comment: Speci men Type: ARTERIAL BLOOD SPECIMENOrdering Facility: [facility] Address: [address] [place] [address] Performed By: #### A LLBG ####[facility] [id number] [place] [address] [place] Hemoglobin (Bld) [Mass/Vol] 15.2 g/dL Normal 11.5-15.5 [facility] Comment on above: Order Comment: Speci men Type: ARTERIAL BLOOD SPECIMENOrdering Facility: [facility] Address: [address] [place] [address] Performed By: #### A LLBG ####[facility] [id number] [place] [address] [place] Lactate [Moles/Vol] 1.1 mmol/L Normal 0.5-2.2 [facility] Comment on above: Order Comment: Speci men Type: ARTERIAL BLOOD SPECIMENOrdering Facility: [facility] Address: [address] [place] [address] Performed By: #### A LLBG ####[facility] [id number] [place] [address] [place] LITERS 50 Liters/min Normal [facility] Comment on above: Order Comment: Speci men Type: ARTERIAL BLOOD SPECIMENOrdering Facility: [facility] Address: [address] [place] [address] Performed By: #### A LLBG ####[facility] LABCL[facility] [id number] [address] [address] [place] Methemoglobin (Bld) [Mass fraction] 0.4 % Normal 0.0-1.5 [facility] Comment on above: Order Comment: Speci men Type: ARTERIAL BLOOD SPECIMENOrdering Facility: [facility] Address: [address] [place], [place] [id number] Performed By: #### A LLBG ####[facility] LABCLIA [id number] [place] [id number] [place] O2 THERAPY Hi-Flow Nasal Cannula-Heated Normal [facility] Comment on above: Order Comment: Speci men Type: ARTERIAL BLOOD SPECIMENOrdering Facility: [facility] Address: [address] [place], [place] [id number] Performed By: #### A LLBG ####[facility] LABCL[facility] [id number] [place] [address] [place] Oxygen (Bld) [Partial pressure] 95 mm Hg Normal 85-95 [facility] Comment on above: Order Comment: Speci men Type: ARTERIAL BLOOD SPECIMENOrdering Facility: [facility] Address: [address] [place], [place] [id number] Performed By: #### A LLBG ####[facility]CL[facility] [id number] [place] [address] [place] Oxygen adjusted to patient's actual temperature (Bld) [Partial pressure] 91 mmHg Normal 85-95 [facility] Comment on above: Order Comment: Speci men Type: ARTERIAL BLOOD SPECIMENOrdering Facility: [facility] Address: [address] [place] [place] [id number] Performed By: #### A LLBG ####[facility] LABCL[facility] [id number] [address] [address] [place] Oxyhemoglobin (BldA) [Mass fraction] 96 % Normal 95-98 [facility] Comment on above: Order Comment: Speci men Type: ARTERIAL BLOOD SPECIMENOrdering Facility: [facility] Address: [address] [place] [address] Performed By: #### A LLBG ####[facility] LABCL[facility] [id number] [place] [address] [place] pH (Bld) 7.25 [pH] Low 7.35-7.45 [facility] Comment on above: Order Comment: Speci men Type: ARTERIAL BLOOD SPECIMENOrdering Facility: [facility] Address: [address] [place] [address] Performed By: #### A LLBG ####[facility] LABCL[facility] [id number] [place] [address] [place] pH adjusted to patient's actual temperature (Bld) 7.26 Low 7.35-7.45 [facility] Comment on above: Order Comment: Speci men Type: ARTERIAL BLOOD SPECIMENOrdering Facility: [facility] Address: [address] [place] [address] Performed By: #### A LLBG ####[facility] LABCLIA [id number] [place] [address] [place] PO2 / FIO2 RATIO 136 mmHg Low >[address] [facility] Comment on above: Order Comment: Speci men Type: ARTERIAL BLOOD SPECIMENOrdering Facility: [facility] Address: [address] [place] [address] Performed By: #### A LLBG ####[facility] LABCLIA [id number] [place] [address] [place] Potassium [Moles/Vol] 4.5 mmol/L Normal 3.5-5.0 [facility] Comment on above: Order Comment: Speci men Type: ARTERIAL BLOOD SPECIMENOrdering Facility: [facility] Address: [address] [place] [address] Performed By: #### A LLBG ####[facility] LABCL[facility] [id number] [place] [address] [place] Sodium [Moles/Vol] 139 mmol/L Normal 136-144 [facility] Comment on above: Order Comment: Speci men Type: ARTERIAL BLOOD SPECIMENOrdering Facility: [facility] Address: [address] [place] [address] Performed By: #### A LLBG ####[facility] LABCL[facility] [id number] [place] [address] [place] Alanine aminotransferase [En zymatic activity/volume] in Serum or PlasmaOrdered By: Mae Rivera on 09-01-2024 ALT [Catalytic activity/Vol] Alanine aminotransferase [Enzymatic activity/volume] in Serum or Plasma 752 [facility] Albumin [Mass/volume] in Ser um or Plasma by Bromocresol green (BCG) dye binding methoOrdered By: Mae Rivera on 09-01-2024 Albumin BCG dye [Mass/Vol] Albumin [Mass/volume] in Serum or Plasma by Bromocresol green (BCG) dye binding metho 3.5-5.7 [facility] Alkaline phosphatase [Enzyma tic activity/volume] in Serum or PlasmaOrdered By: Mae Rivera on 09-01-2024 ALP [Catalytic activity/Vol] Alkaline phosphatase [Enzymatic activity/volume] in Serum or Plasma 34-104 [facility] Aspartate aminotransferase [ Enzymatic activity/volume] in Serum or PlasmaOrdered By: Mae Rivera on 09-01-2024 AST [Catalytic activity/Vol] Aspartate aminotransferase [Enzymatic activity/volume] in Serum or Plasma 13-39 [facility] B-Type Natriuretic Peptideon 09-01-2024 Natriuretic peptide B (Bld) [Mass/Vol] 16.0 pg/mL Normal 5-100 [facility] Comment on above: Result Comment: PERF ORMED BY: [facility] [address] [facility] [place] [address] PATHOLOGIST PANTOGRAPH II ENGRAVER SHAD LANTIGUA M.D. Performed By: #### H S TROP, BNP, CMP, CK #### [facility] [address] [place] [address] [facility] Bacteria Spec Resp Culton Bacteria identified Respiratory culture Nom (Unsp spec) ORGANISM ID: 1 Rare normal respiratory shivani GRAM STAIN: Rare Mixed oral shivani No Polymorphonuclear Leukocytes Abnormal [facility] Comment on above: Performed By: #### 3 2355-0 ####[facility]CL[facility] [id number] [address] [address] [place] Basic metabolic 2000 panelon 09-01-2024 Anion gap [Moles/Vol] 16 mmol/L High 8-15 [facility] Comment on above: Order Comment: Speci men Type: BLOOD SPECIMENOrdering Facility: [facility] Address: [address] [place], [place] [address] Performed By: #### 2 4321-2 ####[facility]CL[facility] [id number] [place] [address] [place] Calcium [Mass/Vol] 10.0 mg/dL Normal 8.5-10.2 [facility] Comment on above: Order Comment: Speci men Type: BLOOD SPECIMENOrdering Facility: [facility] Address: [address] [place], [place] [address] Performed By: #### 2 4321-2 ####[facility]CL[facility] [id number] [place] [address] [place] Chloride [Moles/Vol] 93 mmol/L Low 98-107 [facility] Comment on above: Order Comment: Speci men Type: BLOOD SPECIMENOrdering Facility: [facility] Address: [address] [place] [address] Performed By: #### 2 4321-2 ####[facility]CL[facility] [id number] [place] [id number] [place] CO2 [Moles/Vol] 26 mmol/L Normal 22-30 [facility] Comment on above: Order Comment: Speci men Type: BLOOD SPECIMENOrdering Facility: [facility] Address: [address] [place] [address] Performed By: #### 2 4321-2 ####[facility] [id number] [address] [address] [place] Creatinine [Mass/Vol] 0.86 mg/dL Normal 0.58-0.96 [facility] Comment on above: Order Comment: Jet otto Type: BLOOD SPECIMENOrdering Facility: [facility] Address: [address] [place] [address] Performed By: #### 2 4321-2 ####[facility] [id number] [place] [address] [place] Creatinine and Glomerular filtration rate.predicted panel (S/P/Bld) 80 mL/min/1.73m??? Normal >=60 [facility] Comment on above: Order Comment: Jet otto Type: BLOOD SPECIMENOrdering Facility: [facility] Address: [address] [place] [address] Result Comment: Anna mated Glomerular Filtration Rate (eGFR) is calculated using the 2020 CKD-EPI creatinine equation. This equation utilizes serum creatinine, sex, and age as parameters. The creatinine assay has traceable calibration to isotope dilution-mass spectrometry. Refer to KDIGO guidelines for clinical interpretation. In patients with unstable renal function, e.g. those with acute kidney injury, the eGFR may not accurately reflect actual GFR. Performed By: #### 2 4321-2 ####[facility] [id number] [place] [address] [place] Glucose [Mass/Vol] 164 mg/dL High 74-99 [facility] Comment on above: Order Comment: Jet otto Type: BLOOD SPECIMENOrdering Facility: [facility] Address: [address] [place] [address] Result Comment: The [place] [employer] (ADA) provides guidance for cutoff values for fasting glucose and random glucose. The ADA defines fasting as no caloric intake for at least 8 hours. Fasting plasma glucose results between 100 to 125 mg/dL indicate increased risk for diabetes (prediabetes).Fasting plasma glucose results greater than or equal to 126 mg/dL meet the criteria for diagnosis of diabetes. In the absence of unequivocal hyperglycemia, results should be confirmed by repeat testing. In a patient with classic symptoms of hyperglycemia or hyperglycemic crisis, random plasma glucose results greater than or equal to 200 mg/dL meet the criteria for diagnosis of diabetes.Reference: Standards of Medical Care in Diabetes 2016, [place] [employer]. Diabetes Care. 2016.39(Suppl 1). Performed By: #### 2 4321-2 ####[facility] [id number] [place] [address] [place] Urea nitrogen [Mass/Vol] 10 mg/dL Normal 7-21 [facility] Comment on above: Order Comment: Speci men Type: BLOOD SPECIMENOrdering Facility: [facility] Address: [address] [place] [address] Performed By: #### 2 4321-2 ####[facility] [id number] [address] [place] Basophils Auto (Bld) [#/Vol] Ordered By: Mae Rivera on 09-01-2024 Basophils (Bld) [#/Vol] Automated basophil count 0.0-0.2 [facility] Basophils/100 WBC Auto (Bld) Ordered By: Mae Rivera on 09-01-2024 Basophils/100 WBC (Bld) Automated basophil % . [facility] Bilirubin.total [Mass/volume ] in Serum or PlasmaOrdered By: Mae Rivera on 09-01-2024 Bilirubin [Mass/Vol] Bilirubin.total [Mass/volume] in Serum or Plasma 0.3-1.0 [facility] BioFire Not Detectedon 09-01 BioFire Not Detected Not detected Normal Not Detecte T [facility] Comment on above: Result Comment: This is a duplicate RP2.1 COVID (PCR) result to be used for statistical tracking purpose only. PERFORMED BY: [facility] [address] [facility] [place] [address] PATHOLOGIST PANTOGRAPH II ENGRAVER SHAD LANTIGUA M.D. Performed By: #### R EDMUND PANEL UPP., BIOFIRECOVNOTDE #### [facility] [address] CBC panel Auto (Bld)on 09-01 Erythrocyte distribution width (RBC) [Ratio] 13.0 % Normal 11.5-15.0 [facility] Comment on above: Order Comment: Speci men Type: BLOOD SPECIMENOrdering Facility: [facility] Address: [address] [place] [address] Performed By: #### 5 8410-2 ####[facility] [id number] [place] [address] [place] Hematocrit (Bld) [Volume fraction] 42.3 % Normal 36.0-46.0 [facility] Comment on above: Order Comment: Speci men Type: BLOOD SPECIMENOrdering Facility: [facility] Address: [address] [place] [address] Performed By: #### 5 8410-2 ####[facility] [id number] [place] [address] [place] Hemoglobin (Bld) [Mass/Vol] 13.9 g/dL Normal 11.5-15.5 [facility] Comment on above: Order Comment: Speci men Type: BLOOD SPECIMENOrdering Facility: [facility] Address: [address] [place] [address] Performed By: #### 5 8410-2 ####[facility] [id number] [place] [address] [place] MCH (RBC) [Entitic mass] 28.7 pg Normal 26.0-34.0 [facility] Comment on above: Order Comment: Speci men Type: BLOOD SPECIMENOrdering Facility: [facility] Address: [address] [place] [address] Performed By: #### 5 8410-2 ####[facility] [id number] [place] [address] [place] MCHC (RBC) [Mass/Vol] 32.9 g/dL Normal 30.5-36.0 [facility] Comment on above: Order Comment: Speci men Type: BLOOD SPECIMENOrdering Facility: [facility] Address: [address] [place] [address] Performed By: #### 5 8410-2 ####[facility] [id number] [place] [address] [place] MCV (RBC) [Entitic vol] 87.2 fL Normal 80.0-100.0 [facility] Comment on above: Order Comment: Speci men Type: BLOOD SPECIMENOrdering Facility: [facility] Address: [address] [place] [address] Performed By: #### 5 8410-2 ####[facility] [id number] [place] [address] [place] Nucleated RBC (Bld) [#/Vol] 10*3/uL Normal <0.01 [facility] Comment on above: Order Comment: Speci men Type: BLOOD SPECIMENOrdering Facility: [facility] Address: [address] [place] [address] Performed By: #### 5 8410-2 ####[facility] [id number] [place] [address] [place] Platelet mean volume (Bld) [Entitic vol] 10.2 fL Normal 9.0-12.7 [facility] Comment on above: Order Comment: Speci men Type: BLOOD SPECIMENOrdering Facility: [facility] Address: [address] [place] [address] Performed By: #### 5 8410-2 ####[facility] [id number] [place] [address] [place] Platelets (Bld) [#/Vol] 328 10*3/uL Normal 150-400 [facility] Comment on above: Order Comment: Speci men Type: BLOOD SPECIMENOrdering Facility: [facility] Address: [address] [place] [address] Performed By: #### 5 8410-2 ####[facility] [id number] [place] [address] [place] RBC (Bld) [#/Vol] 4.85 10*6/uL Normal 3.90-5.20 [facility] Comment on above: Order Comment: Speci men Type: BLOOD SPECIMENOrdering Facility: [facility] Address: [address] [place] [address] Performed By: #### 5 8410-2 ####[facility] [id number] [place] [address] [place] WBC (Bld) [#/Vol] 5.63 10*3/uL Normal 3.70-11.00 [facility] Comment on above: Order Comment: Speci men Type: BLOOD SPECIMENOrdering Facility: [facility] Address: [address] [place] [address] Performed By: #### 5 8410-2 ####[facility] [id number] [place] [address] [place] Erythrocyte distribution width (RBC) [Ratio] 13.2 % Normal 11.5-15.0 [facility] Comment on above: Order Comment: Speci men Type: BLOOD SPECIMENOrdering Facility: [facility] Address: [address] [place] [address] Performed By: #### 5 8410-2 ####[facility] [id number] [place] [address] [place] Hematocrit (Bld) [Volume fraction] 44.4 % Normal 36.0-46.0 [facility] Comment on above: Order Comment: Speci men Type: BLOOD SPECIMENOrdering Facility: [facility] Address: [address] [place] [address] Performed By: #### 5 8410-2 ####[facility] [id number] [place] [address] [place] Hemoglobin (Bld) [Mass/Vol] 14.7 g/dL Normal 11.5-15.5 [facility] Comment on above: Order Comment: Speci men Type: BLOOD SPECIMENOrdering Facility: [facility] Address: [address] [place] [address] Performed By: #### 5 8410-2 ####[facility] [id number] [place] [address] [place] MCH (RBC) [Entitic mass] 29.5 pg Normal 26.0-34.0 [facility] Comment on above: Order Comment: Speci men Type: BLOOD SPECIMENOrdering Facility: [facility] Address: [address] [place] [address] Performed By: #### 5 8410-2 ####[facility] [id number] [place] [address] [place] MCHC (RBC) [Mass/Vol] 33.1 g/dL Normal 30.5-36.0 [facility] Comment on above: Order Comment: Speci men Type: BLOOD SPECIMENOrdering Facility: [facility] Address: [address] [place] [address] Performed By: #### 5 8410-2 ####[facility] [id number] [place] [address] [place] MCV (RBC) [Entitic vol] 89.2 fL Normal 80.0-100.0 [facility] Comment on above: Order Comment: Speci men Type: BLOOD SPECIMENOrdering Facility: [facility] Address: [address] [place] [address] Performed By: #### 5 8410-2 ####[facility] [id number] [place] [address] [place] Nucleated RBC (Bld) [#/Vol] 10*3/uL Normal <0.01 [facility] Comment on above: Order Comment: Speci men Type: BLOOD SPECIMENOrdering Facility: [facility] Address: [address] [place] [address] Performed By: #### 5 8410-2 ####[facility] [id number] [place] [address] [place] Platelet mean volume (Bld) [Entitic vol] 10.0 fL Normal 9.0-12.7 [facility] Comment on above: Order Comment: Speci men Type: BLOOD SPECIMENOrdering Facility: [facility] Address: [address] [place] [address] Performed By: #### 5 8410-2 ####[facility] [id number] [place] [address] [place] Platelets (Bld) [#/Vol] 316 10*3/uL Normal 150-400 [facility] Comment on above: Order Comment: Speci men Type: BLOOD SPECIMENOrdering Facility: [facility] Address: [address] [place] [address] Performed By: #### 5 8410-2 ####[facility] [id number] [place] [address] [place] RBC (Bld) [#/Vol] 4.98 10*6/uL Normal 3.90-5.20 [facility] Comment on above: Order Comment: Speci men Type: BLOOD SPECIMENOrdering Facility: [facility] Address: [address] [place] [address] Performed By: #### 5 8410-2 ####[facility] [id number] [place] [address] [place] WBC (Bld) [#/Vol] 8.37 10*3/uL Normal 3.70-11.00 [facility] Comment on above: Order Comment: Speci men Type: BLOOD SPECIMENOrdering Facility: [facility] Address: [address] [place] [address] Performed By: #### 5 8410-2 ####[facility] [id number] [facility] [id number] [id number] [place] CNCRITCRon 09-01-2024 CNCRITCR Normal [facility] CONSULTon 09-01-2024 CONSULT Normal [facility] COVID-19 Detected/Not Detect edOrdered By: Mae Rivera on 09-01-2024 SARS-CoV-2 (COVID-19) RNA JAMES+non-probe Ql (Nph) Not detected Not Detecte [facility] Comment on above: This is a duplicate RP2.1 COVID (PCR) result to be used for statistical tracking purpose only. CT chest wo conon 09-01-2024 [place] [address] CT Scan Report Signed Patient: Meredith Chaidez MR#: [id number] 12 : 1970 Acct:[id number] Age/Sex: 54 / F ADM Date: 09/01/24 Loc: Room: [address] [place] [address] Type: ADM IN Attending Dr: Ruddy Orellana MD Copies to: Ruddy Orellana MD Ordering Provider: Ruddy Orellana MD Date of Service: 09/01/24 CT/CT chest wo con: acute hypoxic respiratory failure CT Chest without contrast TECHNIQUE: Axial imaging with 2-D reconstruction. The CT exam was performed using one or more the following dose reduction techniques: Automated exposure control, adjustment of the MA and/or Kv according to patient size, or use of the iterative reconstruction technique. History: Shortness of breath. Hypoxia. COMPARISON: None THYROID: Unremarkable TRACHEA AND BRONCHI: Patent ESOPHAGUS: Unremarkable. HEART: Within normal limits PERICARDIAL EFFUSION: None CORONARY ARTERY CALCIFICATION: None MEDIASTINUM: No adenopathy. No pneumoperitoneum. No mediastinal hematoma. PULMONARY HILTON: No hilar mass or adenopathy is seen. THORACIC AORTA Unremarkable LUNG NODULE None LUNGS: Scattered groundglass opacities of the upper lobes likely inflammatory. Mild right middle lobe atelectasis. Emphysema. Left lower lung field bulla. PLEURAL EFFUSION: None PNEUMOTHORAX: No pneumothorax seen. CHEST WALL: No abnormality AXILLA:Unremarkable BONY STRUCTURES Intact UPPER ABDOMEN: Images of the upper abdomen are noncontributory. CT/CT chest wo con IMPRESSION: Scattered groundglass opacities of the upper lobes likely inflammatory/infectious. Impression dictated by: Dallas Galindo M.D.09/01/2024 8:01 AM Dictation Location: [facility]--16 Transcribed By: PWS 09/01/24 0801 Dictated By: Dallas Galindo DO 09/01/24 0758 Signed By: 09/01/24 0801 Normal [facility] CTA CHEST (NON GATED) W IVCO N PEon 09-01-2024 CTA CHEST (NON GATED) W IVCON PE Normal [facility] Calcium [Mass/volume] in Ser um or PlasmaOrdered By: Mae Rivera on 09-01-2024 Calcium [Mass/Vol] Calcium [Mass/volume ] in Serum or Plasma 8.6-10.3 [facility] Carbon dioxide, total [Moles /volume] in Serum or PlasmaOrdered By: aMe Rivera on 09-01-2024 CO2 [Moles/Vol] Carbon dioxide, tota l [Moles/volume] in Serum or Plasma High 21.0-31.0 [facility] Chloride [Moles/volume] in S uzair or PlasmaOrdered By: Mae Rivera on 09-01-2024 Chloride [Moles/Vol] Chloride [Moles/vol ume] in Serum or Plasma 98-107 [facility] Comp Metab 2000 Pnl SerPlon 09-01-2024 ALT [Catalytic activity/Vol] 25 U/L Normal 7-52 [facility] Comment on above: Order Comment: Speci men Type: BLOOD SPECIMENOrdering Facility: [facility] Address: [address] [place] [address] Performed By: #### 2 4323-8, 33838-9, 2777-1, 97237-8 ####[facility]CL[facility] [id number] [place] [address] [place] Performed By: #### H S TROP, BNP, CMP, CK #### [address] Urea nitrogen [Mass/Vol] 11 mg/dL Normal 7-25 [facility] Comment on above: Order Comment: Speci men Type: BLOOD SPECIMENOrdering Facility: [facility] Address: [address] [place] [address] Performed By: #### 2 4323-8, 24078-8, 2777-1, 08272-5 ####[facility] [id number] [facility] [id number] [place] Performed By: #### H S TROP, BNP, CMP, CK #### [address] Complete Blood Count Auto Di ffon 09-01-2024 Basophils (Bld) [#/Vol] 0.1 10*3/uL Normal 0.0-0.2 [facility] Comment on above: Result Comment: PERF ORMED BY: [place] [address] PATHOLOGIST PANTOGRAPH II ENGRAVER SHAD LANTIGUA M.D. Performed By: #### H S TROP, BNP, CMP, CK #### [address] Basophils/100 WBC (Bld) 0.9 % Normal . Soraida bruce [facility] Comment on above: Performed By: #### H S TROP, BNP, CMP, CK #### [address] Eosinophils (Bld) [#/Vol] 1.2 10*3/uL High 0.0-0.45 [facility] Comment on above: Performed By: #### H S TROP, BNP, CMP, CK #### [address] Eosinophils/100 WBC (Bld) 11.1 % Normal . [facility] Comment on above: Performed By: #### H S TROP, BNP, CMP, CK #### [address] Erythrocyte distribution width (RBC) [Ratio] 13.5 % Normal 11.9-15.3 [facility] Comment on above: Performed By: #### H S TROP, BNP, CMP, CK #### [address] Hematocrit (Bld) [Volume fraction] 49.1 % High 34.0-46.4 [facility] Comment on above: Performed By: #### H S TROP, BNP, CMP, CK #### [address] Hemoglobin (Bld) [Mass/Vol] 16.5 g/dL High 11.8-15.4 [facility] Comment on above: Performed By: #### H S TROP, BNP, CMP, CK #### [address] Lymphocytes (Bld) [#/Vol] 2.1 10*3/uL Normal 1.00-4.8 [facility] Comment on above: Performed By: #### H S TROP, BNP, CMP, CK #### [address] Lymphocytes/100 WBC (Bld) 19.3 % Normal . [facility] Comment on above: Performed By: #### H S TROP, BNP, CMP, CK #### [address] MCH (RBC) [Entitic mass] 29.9 pg Normal 24.7-34.3 [facility] Comment on above: Performed By: #### H S TROP, BNP, CMP, CK #### [address] MCV (RBC) [Entitic vol] 89.1 fL Normal 80-100 [facility] Comment on above: Performed By: #### H S TROP, BNP, CMP, CK #### [address] Mean Corpuscular HGB Conc 33.6 g/dL Normal 32.0-35.0 [facility] Comment on above: Performed By: #### H S TROP, BNP, CMP, CK #### [place] [address] [place] Monocytes (Bld) [#/Vol] 0.8 10*3/uL Normal 0.0-0.8 [facility] Comment on above: Performed By: #### H S TROP, BNP, CMP, CK #### [address] Monocytes/100 WBC (Bld) 16.67 % Normal 0.00-20.00 [facility] Comment on above: Performed By: #### H S TROP, BNP, CMP, CK #### [address] Monocytes/100 WBC (Bld) 7.5 % Normal . [facility] Comment on above: Performed By: #### H S TROP, BNP, CMP, CK #### [address] Neutrophils (Bld) [#/Vol] 6.6 10*3/uL Normal 1.8-7.7 [facility] Comment on above: Performed By: #### H S TROP, BNP, CMP, CK #### [place] [address] [place] Neutrophils/100 WBC (Bld) 61.2 % Normal . [facility] Comment on above: Performed By: #### H S TROP, BNP, CMP, CK #### [place] [address] [place] NRBC% 0.1 /100{WBC} Normal 0-0.5 [facility] Comment on above: Performed By: #### H S TROP, BNP, CMP, CK #### [address] Platelet mean volume (Bld) [Entitic vol] 8.3 fL Normal 6.3-10.7 [facility] Comment on above: Performed By: #### H S TROP, BNP, CMP, CK #### [place] [address] [place] Platelets (Bld) [#/Vol] 333 10*3/uL Normal 150-450 [facility] Comment on above: Performed By: #### H S TROP, BNP, CMP, CK #### [address] RBC (Bld) [#/Vol] 5.51 10*6/uL High 3.60-5.00 [facility] Comment on above: Performed By: #### H S TROP, BNP, CMP, CK #### [address] WBC (Bld) [#/Vol] 10.7 10*3/uL Normal 3.8-11.6 [facility] Comment on above: Performed By: #### H S TROP, BNP, CMP, CK #### [address] Comprehensive Metabolic Pane tru 09-01-2024 Albumin [Mass/Vol] 5.1 g/dL Normal 3.5-5.7 [facility] Comment on above: Performed By: #### H S TROP, BNP, CMP, CK #### [address] Albumin/Globulin [Mass ratio] 1.1 {ratio} Normal [facility] Comment on above: Performed By: #### H S TROP, BNP, CMP, CK #### [address] ALP [Catalytic activity/Vol] 91 U/L Normal 34-104 [facility] Comment on above: Performed By: #### H S TROP, BNP, CMP, CK #### [address] Anion gap [Moles/Vol] 8.6 mmol/L Normal 6.0-15.0 [facility] Comment on above: Performed By: #### H S TROP, BNP, CMP, CK #### [address] AST [Catalytic activity/Vol] 26 U/L Normal 13-39 [facility] Comment on above: Performed By: #### H S TROP, BNP, CMP, CK #### [address] Bilirubin [Mass/Vol] 0.4 mg/dL Normal 0.3-1.0 [facility] Comment on above: Performed By: #### H S TROP, BNP, CMP, CK #### [address] Calcium [Mass/Vol] 10.3 mg/dL Normal 8.6-10.3 [facility] Comment on above: Performed By: #### H S TROP, BNP, CMP, CK #### [address] Chloride [Moles/Vol] 100 mmol/L Normal 98-107 [facility] Comment on above: Performed By: #### H S TROP, BNP, CMP, CK #### [address] CO2 [Moles/Vol] 32.6 mmol/L High 21.0-31.0 [facility] Comment on above: Performed By: #### H S TROP, BNP, CMP, CK #### [address] Creatinine [Mass/Vol] 1.06 mg/dL Normal 0.60-1.20 [facility] Comment on above: Performed By: #### H S TROP, BNP, CMP, CK #### [place] [address] [place] Creatinine Clr Calc Pharmacy 58.25 Normal [facility] Comment on above: Result Comment: PERF ORMED BY: [place] [address] PATHOLOGIST PANTOGRAPH II ENGRAVER SHAD LANTIGUA M.D. Performed By: #### H S TROP, BNP, CMP, CK #### [address] GFR/1.73 sq M.predicted MDRD (S/P/Bld) [Vol rate/Area] mL/min/{1.73_m2} Normal [facility] Comment on above: Performed By: #### H S TROP, BNP, CMP, CK #### [facility] [address] [place] [id number] [place] Globulin (S) [Mass/Vol] 4.7 g/dL Normal [facility] Comment on above: Performed By: #### H S TROP, BNP, CMP, CK #### [facility] [address] [place] [id number] [facility] Glucose [Mass/Vol] 106 mg/dL High 70-100 [facility] Comment on above: Result Comment: [facility] Glucose Reference Range is dependent on time and content of last meal. Glucose of more than 200 mg/dL in a nonstressed, ambulatory subject supports the diagnosis of Diabetes Mellitus. ADA recommended reference range Performed By: #### H S TROP, BNP, CMP, CK #### [facility] [address] [place] [phone] [facility] Protein [Mass/Vol] 9.8 g/dL High 6.4-8.9 [facility] Comment on above: Performed By: #### H S TROP, BNP, CMP, CK #### [facility] [address] [place] [phone] [place] Sodium [Moles/Vol] 137 mmol/L Normal 136-145 [facility] Comment on above: Performed By: #### H S TROP, BNP, CMP, CK #### [facility] [address] [place] [phone] [facility] Comprehensive metabolic 2000 panelon 09-01-2024 Albumin [Mass/Vol] 4.6 g/dL Normal 3.9-4.9 [facility] Comment on above: Order Comment: Speci men Type: BLOOD SPECIMENOrdering Facility: [facility] Address: [address] [place] [address] Performed By: #### 2 4323-8, 25188-2, 2777-1, 35730-4 ####[facility] [id number] [facility] [place] [address] [place] ALP [Catalytic activity/Vol] 101 U/L Normal 34-123 [facility] Comment on above: Order Comment: Speci men Type: BLOOD SPECIMENOrdering Facility: [facility] Address: [address] [place] [address] Performed By: #### 2 4323-8, 41724-6, 27702-08, 69966-0 ####[facility] [id number] [address] [address] [place] Anion gap [Moles/Vol] 9 mmol/L Normal 8-15 [facility] Comment on above: Order Comment: Speci men Type: BLOOD SPECIMENOrdering Facility: [facility] Address: [address] [place] [address] Performed By: #### 2 4323-8, 84578-0, 27702-08, 84268-1 ####[facility] [id number] [place] [id number] [place] AST [Catalytic activity/Vol] 22 U/L Normal 13-35 [facility] Comment on above: Order Comment: Speci men Type: BLOOD SPECIMENOrdering Facility: [facility] Address: [address] [place] [address] Performed By: #### 2 4323-8, 84049-2, 27702-08, 12135-7 ####[facility] [id number] [address] [address] [place] Bilirubin [Mass/Vol] 0.3 mg/dL Normal 0.2-1.3 [facility] Comment on above: Order Comment: Speci men Type: BLOOD SPECIMENOrdering Facility: [facility] Address: [address] [place] [address] Performed By: #### 2 4323-8, 59614-0, 27702-08, 46778-9 ####[facility] [id number] [address] [address] [place] Calcium [Mass/Vol] 9.8 mg/dL Normal 8.5-10.2 [facility] Comment on above: Order Comment: Speci men Type: BLOOD SPECIMENOrdering Facility: [facility] Address: [address] [place] [address] Performed By: #### 2 4323-8, 74774-1, 2777, 41768-9 ####[facility] [id number] [place] [id number] [place] Chloride [Moles/Vol] 98 mmol/L Normal 98-107 [facility] Comment on above: Order Comment: Speci men Type: BLOOD SPECIMENOrdering Facility: [facility] Address: [address] [place] [address] Performed By: #### 2 4323-8, , 27702-08, 70232-4 ####[facility] [id number] [place] [address] [place] CO2 [Moles/Vol] 29 mmol/L Normal 22-30 [facility] Comment on above: Order Comment: Speci men Type: BLOOD SPECIMENOrdering Facility: [facility] Address: [address] [place] [address] Performed By: #### 2 4323-8, 26759-8, 27702-08, 60205-8 ####[facility] [id number] [place] [id number] [place] Creatinine [Mass/Vol] 0.83 mg/dL Normal 0.58-0.96 [facility] Comment on above: Order Comment: Speci men Type: BLOOD SPECIMENOrdering Facility: [facility] Address: [address] [place], [place] [address] Performed By: #### 2 4323-8, 03815-2, 27702-08, 09605-2 ####[facility] [id number] [address] [address] [place] Creatinine and Glomerular filtration rate.predicted panel (S/P/Bld) 84 mL/min/1.73m??? Normal >=60 [facility] Comment on above: Order Comment: Jet otto Type: BLOOD SPECIMENOrdering Facility: [facility] Address: [address] [place] [address] Result Comment: Anna mated Glomerular Filtration Rate (eGFR) is calculated using the 2020 CKD-EPI creatinine equation. This equation utilizes serum creatinine, sex, and age as parameters. The creatinine assay has traceable calibration to isotope dilution-mass spectrometry. Refer to KDIGO guidelines for clinical interpretation. In patients with unstable renal function, e.g. those with acute kidney injury, the eGFR may not accurately reflect actual GFR. Performed By: #### 2 4323-8, 01831-6, 2777-1, 74536-5 ####[facility]CL[facility] [id number] [place] [address] [place] Glucose [Mass/Vol] 116 mg/dL High 74-99 [facility] Comment on above: Order Comment: Jet otto Type: BLOOD SPECIMENOrdering Facility: [facility] Address: [address] [place] [address] Result Comment: The [place] Diabetes [employer] (ADA) provides guidance for cutoff values for fasting glucose and random glucose. The ADA defines fasting as no caloric intake for at least 8 hours. Fasting plasma glucose results between 100 to 125 mg/dL indicate increased risk for diabetes (prediabetes).Fasting plasma glucose results greater than or equal to 126 mg/dL meet the criteria for diagnosis of diabetes. In the absence of unequivocal hyperglycemia, results should be confirmed by repeat testing. In a patient with classic symptoms of hyperglycemia or hyperglycemic crisis, random plasma glucose results greater than or equal to 200 mg/dL meet the criteria for diagnosis of diabetes.Reference: Standards of Medical Care in Diabetes 2016, [place] [employer]. Diabetes Care. 2016.39(Suppl 1). Performed By: #### 2 4323-8, 62677-8, 2777-, 76949-1 ####[facility] [id number] [address] [address] [place] Potassium [Moles/Vol] 4.3 mmol/L Normal 3.7-5.1 [facility] Comment on above: Order Comment: Speci men Type: BLOOD SPECIMENOrdering Facility: [facility] Address: [address] [place], [place] [address] [address] Performed By: #### 2 4323-8, 09488-6, 2777-1, 56362-6 ####[facility] [id number] [place] [address] [place] Protein [Mass/Vol] 8.8 g/dL High 6.3-8.0 [facility] Comment on above: Order Comment: Speci men Type: BLOOD SPECIMENOrdering Facility: [facility] Address: [facility] [place] [address] Performed By: #### 2 4323-8, 10131-2, 2777, 64957-0 ####[facility]CL[facility] [id number] [place] [address] [place] Sodium [Moles/Vol] 136 mmol/L Normal 136-144 [facility] Comment on above: Order Comment: Speci men Type: BLOOD SPECIMENOrdering Facility: [facility] Address: [facility] [place] [address] Performed By: #### 2 4323-8, 49396-3, 2777-, 37656-9 ####[facility] [id number] [place] [address] [place] Creatine Kinaseon 09-01-2024 CK [Catalytic activity/Vol] 229 U/L High 30-223 [facility] Comment on above: Performed By: #### H S TROP, BNP, CMP, CK #### [facility] [address] Creatine kinase [Enzymatic a ctivity/volume] in Serum or PlasmaOrdered By: Mae Rivera on 09-01-2024 CK [Catalytic activity/Vol] Creatine kinase [Enzymatic activity/volume] in Serum or Plasma High 30-223 [facility] Creatinine [Mass/volume] in Serum or PlasmaOrdered By: Mae Rivera on 09-01-2024 Creatinine [Mass/Vol] Creatinine [Mass/v olume] in Serum or Plasma 0.60-1.20 [facility] ECG 12 lead ECGon 09-01-2024 ECG 12 lead ECG [facility] [place] [address] Electrocardiograph Report Signed Patient: Meredith Chaidez MR#: [id number] [birth year] : 1970 Acct:[id number] Age/Sex: 54 / F ADM Date: 09/01/24 Loc: Room: [address] [place] [address] Type: ADM IN Attending Dr: Ruddy Orellana MD Ordering Provider: Mae Rivera Jr, MD Date of Service: 09/01/24 ECG/ECG 12 lead ECG: DYSPNEA Copies to: Test Reason : Blood Pressure : 191/111 mmHG Vent. Rate : 103 BPM Atrial Rate : 103 BPM P-R Int : 196 ms QRS Dur : 92 ms QT Int : 342 ms P-R-T Axes : 56 -44 78 degrees QTcB Int : 448 ms Sinus tachycardia Left axis deviation Nonspecific ST and T wave abnormality Abnormal ECG When compared with ECG of 13-Aug-2024 22:06, Nonspecific T wave abnormality no longer evident in Inferior leads QT has shortened Confirmed by MAE RIVERA MD ([id number]) on 09/01/2024 6:02:01 AM Referred By: Electronically Signed By: MAE RIVERA MD Transcribed By: MUS Signed By Mae Rivera Jr, MD 0602 Normal [facility] ECG COMPLETEon 09-01-2024 ECG COMPLETE Normal [facility] Eosinophils Auto (Bld) [#/Vo l]Ordered By: Mae Rivera on 09-01-2024 Eosinophils (Bld) [#/Vol] Automated eosinophil count High 0.0-0.45 [facility] Eosinophils/100 WBC Auto (Bl d)Ordered By: Mae Rivera on 09-01-2024 Eosinophils/100 WBC (Bld) Automated eosinophil % . [facility] Erythrocyte distribution wid th Auto (RBC) [Ratio]Ordered By: Mae Rivera on 09-01-2024 Erythrocyte distribution width (RBC) [Ratio] Erythrocyte distribution width [Ratio] by Automated count 11.9-15.3 [facility] Globulin Calc (S) [Mass/Vol] Ordered By: Mae Rivera on 09-01-2024 Globulin (S) [Mass/Vol] Serum globulin measurement by calculation (mass/volume) [facility] Glucose [Mass/volume] in Ser um or PlasmaOrdered By: Mae Rivera on 09-01-2024 Glucose [Mass/Vol] Glucose [Mass/volume ] in Serum or Plasma High 70-100 [facility] Comment on above: ADA recommended refe rence rangeRandom Glucose Reference Range is dependent on time and content of last meal. Glucose of more than 200 mg/dL in a nonstressed, ambulatory subject supports the diagnosis of Diabetes Mellitus. HIGH SENSITIVITY TROPONIN To n 09-01-2024 Troponin T.cardiac High sensitivity method [Mass/Vol] <6 Normal <12 [facility] Comment on above: Order Comment: Speci men Type: BLOOD SPECIMENOrdering Facility: [facility] Address: [address] [place] [address] Performed By: #### H STNT ####[facility] LABCLIA [id number] [place] [address] [place] HISTORY PHYSICALon HISTORY PHYSICAL Normal [facility] Hematocrit Auto (Bld) [Volum e fraction]Ordered By: Mae Rivera on 09-01-2024 Hematocrit (Bld) [Volume fraction] Hematocrit [Volume Fraction] of Blood by Automated count High 34.0-46.4 [facility] Hemoglobin [Mass/volume] in BloodOrdered By: Mae Rivera on 09-01-2024 Hemoglobin (Bld) [Mass/Vol] Hemoglobin [Mass/volume] in Blood High 11.8-15.4 [facility] Leukocytes [#/volume] correc lucas for nucleated erythrocytes in Blood by Automated counOrdered By: Mae Rivera on 09-01-2024 WBC corrected for nucl RBC Auto (Bld) [#/Vol] Leukocytes [#/volume] corrected for nucleated erythrocytes in Blood by Automated coun 3.8-11.6 [facility] Lymphocytes Auto (Bld) [#/Vo l]Ordered By: Mae Rivera on 09-01-2024 Lymphocytes (Bld) [#/Vol] Lymphocytes [#/volume] in Blood by Automated count 1.00-4.8 [facility] Lymphocytes/100 WBC Auto (Bl d)Ordered By: Mae Rivera on 09-01-2024 Lymphocytes/100 WBC (Bld) Lymphocytes/100 leukocytes in Blood by Automated count . [facility] MCH Auto (RBC) [Entitic mass ]Ordered By: Mae Rivera on 09-01-2024 MCH (RBC) [Entitic mass] MCH [Entitic mass] by Automated count 24.7-34.3 [facility] MCHC Auto (RBC) [Mass/Vol]Or dered By: Mae Rivera on 09-01-2024 MCHC (RBC) [Mass/Vol] MCHC [Mass/volume] by Automated count 32.0-35.0 [facility] MCV Auto (RBC) [Entitic vol] Ordered By: Mae Rivera on 09-01-2024 MCV (RBC) [Entitic vol] MCV [Entitic vol ume] by Automated count 80-100 [facility] MYCOPLASMA PNEUM PCRon 09-01 MYCOPLASMA PNEUM PCR Normal [facility] Comment on above: Performed By: #### M YCPCR ####[facility] [id number] [place] [address] Magnesium SerPl-mCncon 09-01 Magnesium [Mass/Vol] 2.1 mg/dL Normal 1.7-2.3 [facility] Comment on above: Order Comment: Speci men Type: BLOOD SPECIMENOrdering Facility: [facility] Address: [address] [place] [address] Performed By: #### 2 4323-8, 95005-0, 2777-1, 68689-4 ####[facility] LABCLIA [id number] [place] [address] [place] Monocyte distribution width [Entitic volume] in Blood by AutomatedOrdered By: Mae Rivera on 09-01-2024 Monocyte distribution width Auto (Bld) [Entitic vol] Monocyte distribution width [Entitic volume] in Blood by Automated 0.00-20.00 [facility] Monocytes Auto (Bld) [#/Vol] Ordered By: Mae Rivera on 09-01-2024 Monocytes (Bld) [#/Vol] Automated blood monocyte count 0.0-0.8 [facility] Monocytes/100 WBC Auto (Bld) Ordered By: Mae Rivera on 09-01-2024 Monocytes/100 WBC (Bld) Automated monocyte % . [facility] NURSING PROGon 09-01-2024 NURSING PROG Normal [facility] NURSING PROG Normal [facility] Natriuretic peptide B [Mass/ Vol]Ordered By: Mae Rivera on 09-01-2024 Natriuretic peptide B (Bld) [Mass/Vol] BNP ser/plas 5-100 [facility] Neutrophils Auto (Bld) [#/Vo l]Ordered By: Mae Rivera on 09-01-2024 Neutrophils (Bld) [#/Vol] Neutrophils [#/volume] in Blood by Automated count 1.8-7.7 [facility] Neutrophils/100 WBC Auto (Bl d)Ordered By: Mae Rivera on 09-01-2024 Neutrophils/100 WBC (Bld) Automated neutrophil % . [facility] No Panel InformationOrdered By: Ruddy Orellana on 09-01-2024 Blood Gas Critical Value See comment [facility] Comment on above: Critical Value damian d on: 09/01/2024 at 06:20 Blood Gas PEEP 5 cmH2O [facility] Blood Gas Pressure Support 10.0 cmH2O [facility] Blood Gas Sample Site Venous Fir [facility] FiO2 40 % [facility] Oxygen Delivery Device Bip[facility] Venous Blood Base Excess -1.4 mmol/L -3.0-3.0 [facility] Venous Blood Oxygen Content 5.5 mmol/L Low 6.6-9.7 [facility] Venous Blood Oxygen Saturation 56.9 % Critically low 73.0-76.0 [facility] Venous Blood Partial Pressure CO2 70.2 mm[Hg] High 38.0-50.0 [facility] Venous Blood Partial Pressure O2 30.3 mm[Hg] Low 35.0-45.0 [facility] Venous Blood pH 7.22 Low 7.32-7.43 [facility] No Panel InformationOrdered By: Mae Rivera on 09-01-2024 Blood Gas Liter Flow 5 [facility] Estimated GFR (CKD-EPI) > 60.0 mL/Min [facility] Creatinine Clearance (Chem 58.25 [facility] Nucleated erythrocytes [Pres ence] in Blood by Automated countOrdered By: Mae Rivera on 09-01-2024 Nucleated RBC Auto Ql (Bld) Nucleated erythrocytes [Presence] in Blood by Automated count 0-0.5 [facility] PT panel Coag (PPP)on 2024 INR Coag (PPP) [Relative time] 1.1 {INR} Normal 0.9-1.3 [facility] Comment on above: Order Comment: Specgenoveva otto Type: BLOOD SPECIMENOrdering Facility: [facility] Address: [address] [place] [address] Result Comment: Becki min K Antagonist (VKA) Therapeutic Range: INR 2 to 3 (Target INR of 2.5)Note: For patients treated with VKA drugs, such as warfarin, the [employer] [employer] 2012 Guideline recommends a therapeutic INR range of 2 to 3 (target INR of 2.5). This recommendation includes high-risk patients with antiphospholipid syndrome with previous arterial or venous thromboembolism, current-generation mechanical or bioprosthetic aortic heart valve replacement.Note: Patients with mechanical aortic valve replacement and additional risk factors for thromboembolic events (atrial fibrillation, previous thromboembolism, LV dysfunction, hypercoagulable conditions) or an older generation mechanical AVR (i.e., ball in-Cage) or any mechanical MVR should have a INR therapeutic range of 2.5 to 3.5 (target INR of 3).Rosario GH, et al. Chest 2012, 141:7S-47SNishimura RA, et al. [facility] 2017, 70: 252-289 Performed By: #### 3 4528-0 ####[facility] [id number] [facility] [id number] [address] [place] PT Coag (PPP) [Time] 11.4 s Normal 9.7-13.0 [facility] Comment on above: Order Comment: Speci men Type: BLOOD SPECIMENOrdering Facility: [facility] Address: [address] [place] [address] Performed By: #### 3 4528-0 ####[facility] [id number] [place] [address] [place] Phosphate SerPl-mCncon 09-01 Phosphate [Mass/Vol] 4.2 mg/dL Normal 2.7-4.8 [facility] Comment on above: Order Comment: Speci men Type: BLOOD SPECIMENOrdering Facility: [facility] Address: [address] [place] [address] Performed By: #### 2 4323-8, 71267-3, 2777-1, 79097-3 ####[facility] [id number] [place] [address] [place] Platelet mean volume Auto (B ld) [Entitic vol]Ordered By: Mae Rivera on 09-01-2024 Platelet mean volume (Bld) [Entitic vol] Platelet mean volume [Entitic volume] in Blood by Automated count 6.3-10.7 [facility] Platelets Auto (Bld) [#/Vol] Ordered By: Mae Rivera on 09-01-2024 Platelets (Bld) [#/Vol] Platelets [#/vol ume] in Blood by Automated count 150-450 [facility] Potassium [Moles/volume] in Serum or PlasmaOrdered By: Mae Rivera on 09-01-2024 Potassium [Moles/Vol] Potassium [Moles/v olume] in Serum or Plasma 3.5-5.1 [facility] Procalcitonin SerPl-mCncon 0 09-01-2024 Procalcitonin [Mass/Vol] ng/mL Normal <0.09 [facility] Comment on above: Order Comment: Speci men Type: BLOOD SPECIMENOrdering Facility: [facility] Address: [address] [place] [address] Result Comment: For a guided interpretation of test results, please visit the Change in Procalcitonin Calculator, [email or web address]. Performed By: #### 2 4323-8, 77260-4, 2777-1, 58305-6 ####[facility] LABCLIA [id number] [place] [id number] [place] Protein [Mass/volume] in Ser um or PlasmaOrdered By: Mae Rivera on 09-01-2024 Protein [Mass/Vol] Protein [Mass/volume ] in Serum or Plasma High 6.4-8.9 [facility] RBC Auto (Bld) [#/Vol]Ordere d By: Mae Rivera on 09-01-2024 RBC (Bld) [#/Vol] Erythrocytes [#/volu me] in Blood by Automated count High 3.60-5.00 [facility] Resp path 12b Pnl Spec JAMES+p robeon 09-01-2024 Respiratory pathogens DNA and RNA 12b panel JAMES+probe (Unsp spec) Normal [facility] Comment on above: Performed By: #### 6 0566-7 ####[facility] LABCLIA [id number] [place] [address] [place] Respiratory (Upper) Panel, P CRon 09-01-2024 Respiratory (Upper) Panel, PCR Adenovirus Not detected Bordetella parapertussis Not detected Chlamydia pneumoniae Not detected Coronavirus 229E Not detected Coronavirus HKU1 Not detected Coronavirus NL63 Not detected Coronavirus OC43 Not detected Influenza A Not detected Influenza B Not detected Human Metapneumovirus Not detected Mycoplasma pneumoniae Not detected Parainfluenza Virus 1 Not detected Parainfluenza Virus 2 Not detected Parainfluenza Virus 3 Not detected Parainfluenza Virus 4 Not detected Bordetella pertussis-ptxP Not detected Human Rhino/Enterovirus Not detected Resp. Syncytial Virus Not detected COVID-19 Detected/Not Detected Not detected Blank Space ---- FLUA TEST INCLUDES Influenza A tests for the following clinically FLUA TEST INCLUDES significant subtypes: FLUA TEST INCLUDES - Influenza A FLUA TEST INCLUDES - Influenza A H1 FLUA TEST INCLUDES - Influenza A H1 2009 FLUA TEST INCLUDES - Influenza A H3 Blank Space ---- PERFORMED BY: [facility] [address] [place] [address] PATHOLOGIST PANTOGRAPH II ENGRAVER SHAD LANTIGUA M.D. Normal [facility] Comment on above: Performed By: #### R EDMUND PANEL UPP., BIOFIRECOVNOTDE #### [address] Respiratory pathogens DNA an d RNA panel - Nasopharynx by JAMES with non-probe detectionOrdered By: Mae Rivera on 09-01-2024 Respiratory pathogens DNA and RNA panel JAMES+non-probe (Nph) Respiratory pathogens DNA and RNA panel - Nasopharynx by JAMES with non-probe detection [facility] STAPHYLOCOCCUS AUREUS AND MR SA SCREEN, PCR, NASALon 09-01-2024 S. aureus and MRSA panel JAMES+probe (Nose) Not detected Normal Not Detected [facility] Comment on above: Order Comment: Speci men Type: SWABOrdering Facility: [facility] Address: [address] [place] [address] Performed By: #### S APCR ####[facility] LABCLIA [id number] [facility] [place] [address] [place] Serum or plasma albumin/glob ulin mass ratioOrdered By: Mae Rivera on 09-01-2024 Albumin/Globulin [Mass ratio] Serum or plasma albumin/globulin mass ratio [facility] Serum or plasma anion gap de terminationOrdered By: Mae Rivera on 09-01-2024 Anion gap [Moles/Vol] Serum or plasma an ion gap determination 6.0-15.0 [facility] Sodium [Moles/volume] in Ser um or PlasmaOrdered By: Mae Rivera on 09-01-2024 Sodium [Moles/Vol] Sodium [Moles/volume ] in Serum or Plasma 136-145 [facility] TYPE + SCREENon 09-01-2024 ABO O Normal [facility] Comment on above: Order Comment: Speci men Type: BLOOD SPECIMENOrdering Facility: [facility] Address: [address] [place] [address] Performed By: #### T SCR ####[facility] BANKCLIA [id number] [place] [address] [place] Rh Nom (Bld) Positive Normal [facility] Comment on above: Order Comment: Speci men Type: BLOOD SPECIMENOrdering Facility: [facility] Address: [address] [place] [address] Performed By: #### T SCR ####[facility] BLOOD BANKIA [id number] [address] [place] TYPE AND SCREEN EXPIRATION 09/04/2024 23:59 Normal [facility] Comment on above: Order Comment: Speci men Type: BLOOD SPECIMENOrdering Facility: [facility] Address: [address] [place] [address] Performed By: #### T SCR ####[facility] BLOOD BANKIA [id number] [address] [place] Troponin I High Sensitivityo n 09-01-2024 Troponin I High Sensitivity 4 Normal 0-15 [facility] Comment on above: Result Comment: The Troponin units of report have been changed to meet the Chest Pain Accreditation requirement, element EC5.M1l2. Troponin units are changed from pg/ml to ng/L. Also, the decimal is removed and results are in whole numbers. PERFORMED BY: [place] [address] PATHOLOGIST PANTOGRAPH II ENGRAVER SHAD LANTIGUA M.D. Performed By: #### H S TROP, BNP, CMP, CK #### [address] Troponin I.cardiac [Mass/vol ume] in Serum or Plasma by Detection limit <= 0.01 ng/Ordered By: Mae Rivera on 09-01-2024 Troponin I.cardiac DL <= 0.01 ng/mL [Mass/Vol] Troponin I.cardiac [Mass/volume] in Serum or Plasma by Detection limit <= 0.01 ng/ 0-15 [facility] Comment on above: The Troponin units o f report have been changed to meet the Chest Pain Accreditation requirement, element EC5.M1l2. Troponin units are changed from pg/ml to ng/L. Also, the decimal is removed and results are in whole numbers. Urea nitrogen [Mass/volume] in Serum or PlasmaOrdered By: Mae Rivera on 09-01-2024 Urea nitrogen [Mass/Vol] Urea nitrogen [Mass/volume] in Serum or Plasma 03-04 [facility] Venous Blood GasOrdered By: Ruddy Orellana on 09-01-2024 CO2 [Moles/Vol] 30.5 mmol/L High 24.0-29.0 [facility] Comment on above: Performed By: #### R EDMUND PANEL UPP., BIOFIRECOVNOTDE #### [address] HCO3 (Bld) [Moles/Vol] 28.3 mmol/L Normal 23.0-29.0 [facility] Comment on above: Performed By: #### R EDMUND PANEL UPP., BIOFIRECOVNOTDE #### [address] Venous Blood Gason Oxygen Device BiPAP Normal [facility] Comment on above: Performed By: #### R EDMUND PANEL UPP., BIOFIRECOVNOTDE #### [address] Respiratory Critical Normal [facility] Comment on above: Result Comment: Crit ical Value called on: 09/01/2024 at 06:20 PERFORMED BY: [place] [address] PATHOLOGIST PANTOGRAPH II ENGRAVER SHAD LANTIGUA M.D. Performed By: #### R EDMUND PANEL UPP., BIOFIRECOVNOTDE #### [address] VBG Base Excess -1.4 mmol/L Normal -3.0-3.0 [facility] Comment on above: Performed By: #### R EDMUND PANEL UPP., BIOFIRECOVNOTDE #### [address] VBG Draw Site Venous Normal [facility] Comment on above: Performed By: #### R EDMUND PANEL UPP., BIOFIRECOVNOTDE #### [address] VBG Frac Inspired O2 40 % Normal [facility] Comment on above: Performed By: #### R EDMUND PANEL UPP., BIOFIRECOVNOTDE #### [address] VBG O2 Content 5.5 mmol/L Low 6.6-9.7 [facility] Comment on above: Performed By: #### R EDMUND PANEL UPP., BIOFIRECOVNOTDE #### [address] VBG Oxygen Saturation 56.9 % Off scale low 73.0-76.0 [facility] Comment on above: Performed By: #### R EDMUND PANEL UPP., BIOFIRECOVNOTDE #### [address] VBG PCO2 70.2 mm[Hg] High 38.0-50.0 [facility] Comment on above: Performed By: #### R EDMUND PANEL UPP., BIOFIRECOVNOTDE #### [address] VBG PEEP 5 cmH20 Normal [facility] Comment on above: Performed By: #### R EDMUND PANEL UPP., BIOFIRECOVNOTDE #### [address] VBG PH Venous PH 7.22 Low 7.32-7.43 [facility] Comment on above: Performed By: #### R EDMUND PANEL UPP., BIOFIRECOVNOTDE #### [address] [address] [place] VBG PO2 30.3 mm[Hg] Low 35.0-45.0 [facility] Comment on above: Performed By: #### R EDMUND PANEL UPP., BIOFIRECOVNOTDE #### [address] VBG Pressure Support 10.0 cmH20 Normal [facility] Comment on above: Performed By: #### R EDMUND PANEL UPP., BIOFIRECOVNOTDE #### [address] CO2 [Moles/Vol] 34.1 mmol/L High 24.0-29.0 [facility] Comment on above: Performed By: #### H S TROP, BNP, CMP, CK #### [address] HCO3 (Bld) [Moles/Vol] 31.4 mmol/L High 23.0-29.0 [facility] Comment on above: Performed By: #### H S TROP, BNP, CMP, CK #### [address] Respiratory Critical Normal [facility] Comment on above: Result Comment: Crit ical Value called on: 09/01/2024 at 03:08 PERFORMED BY: [place] [address] PATHOLOGIST PANTOGRAPH II ENGRAVER SHAD LANTIGUA M.D. Performed By: #### H S TROP, BNP, CMP, CK #### [address] VBG Base Excess -0.6 mmol/L Normal -3.0-3.0 [facility] Comment on above: Performed By: #### H S TROP, BNP, CMP, CK #### [address] VBG Draw Site Venous Normal [facility] Comment on above: Performed By: #### H S TROP, BNP, CMP, CK #### [place] [id number] [place] VBG Frac Inspired O2 40 % Normal [facility] Comment on above: Performed By: #### H S TROP, BNP, CMP, CK #### [address] VBG Liter Flow 5 Normal [facility] Comment on above: Performed By: #### H S TROP, BNP, CMP, CK #### [address] VBG O2 Content 5.3 mmol/L Low 6.6-9.7 [facility] Comment on above: Performed By: #### H S TROP, BNP, CMP, CK #### [address] VBG Oxygen Saturation 49.9 % Off scale low 73.0-76.0 [facility] Comment on above: Performed By: #### H S TROP, BNP, CMP, CK #### [address] VBG PCO2 87.7 mm[Hg] Off scale high 38.0-50.0 [facility] Comment on above: Performed By: #### H S TROP, BNP, CMP, CK #### [address] VBG PH Venous PH 7.17 Off scale low 7.32-7.43 [facility] Comment on above: Performed By: #### H S TROP, BNP, CMP, CK #### [address] VBG PO2 29.5 mm[Hg] Low 35.0-45.0 [facility] Comment on above: Performed By: #### H S TROP, BNP, CMP, CK #### [address] WBC Auto (Bld) [#/Vol]Ordere d By: Mae Rivera on 09-01-2024 WBC (Bld) [#/Vol] Leukocytes [#/volume ] in Blood by Automated count 3.8-11.6 [facility] X-ray reportOrdered By: Jaziel Mehta on 09-01-2024 Study report [facility] Main [address] [address] XRay Report Signed Patient: Meredith Chaidez MR#: [id number] : 1970 Acct:[id number] Age/Sex: 54 / F ADM Date: 5 Loc: 4C Room: [address] [place] [address] Type: ADM IN Attending Dr: Herbert Rocha DO Copies to: DO Mae Wiley Jr, MD~ Ordering Provider: Mae Rivera Jr, MD Date of Service: 09/01/24 XR/XR chest 1V portable: DYSPNEA SINGLE VIEW CHEST CLINICAL HISTORY: Headache nausea and shortness of breath COMPARISON: Chest 08/30/2024 FINDINGS: Heart normal in size. Lungs are clear. No free air. XR/XR chest 1V portable IMPRESSION: NO ACUTE FINDINGS Impression dictated by: Elliott Mehta Jr., D.O.09/01/2024 8:28 AM Dictation Location: [facility] Transcribed By: [facility] 09/01/24827 Dictated By: Elliott Mehta Jr, DO 09/01/24827 Signed By: 09/01/2428 [facility] XR ABDOMEN 1V SUPINEon 09-01 XR ABDOMEN 1V SUPINE Normal [facility] XR ABDOMEN 1V SUPINE Normal [facility] XR CHEST 1V FRONTAL PORTon 0 09-01-2024 XR CHEST 1V FRONTAL PORT Normal [facility] XR CHEST 1V FRONTAL PORT Normal [facility] XR CHEST 1V FRONTAL PORT Normal [facility] XR chest 1V portableon 09-01 XR chest 1V portable [facility] Main [address] [address] XRay Report Signed Patient: Meredith Chaidez MR#: [id number] 12 : 1970 Acct:[id number] Age/Sex: 54 / F ADM Date: 09/01/24 Loc: 4C Room: [address] [place] [address] Type: ADM IN Attending Dr: Herbert Rocha DO Copies to: DO Mae Wiley Jr, MD Ordering Provider: Mae Rivera Jr, MD Date of Service: 09/01/24 XR/XR chest 1V portable: DYSPNEA SINGLE VIEW CHEST CLINICAL HISTORY: Headache nausea and shortness of breath COMPARISON: Chest 08/30/2024 FINDINGS: Heart normal in size. Lungs are clear. No free air. XR/XR chest 1V portable IMPRESSION: NO ACUTE FINDINGS Impression dictated by: Elliott Mehta Jr., D.OManueal09/01/2024 8:28 AM Dictation Location: [place] [address] Transcribed By: [facility] 09/01/24827 Dictated By: Elliott Mehta Jr, DO 09/01/24827 Signed By: 09/01/24827 Normal [facility] A1C with Estimated Average G leylajoe 08-30-2024 Glucose [Mass/Vol] 123 mg/dL Normal [facility] Comment on above: Order Comment: Reaso n for Exam Impaired fasting glucose Result Comment: PERF ORMED BY: [place] [address] PATHOLOGIST PANTOGRAPH II ENGRAVER SHAD LANTIGUA M.D. Performed By: #### R EDMUND PANEL UPP., BIOFIRECOVNOTDE #### [address] HbA1c (Bld) [Mass fraction] 5.9 % High 4.3-5.6 [facility] Comment on above: Order Comment: Reaso n for Exam Impaired fasting glucose Result Comment: Incr eased risk for diabetes: 5.7 - 6.4 diabetes: >6.4 glycemic control for adults with diabetes: <7.0 Performed By: #### R EDMUND PANEL UPP., BIOFIRECOVNOTDE #### [address] Aerobic Cultureon 08-30-2024 Aerobic Culture Reason for Exam Productive cough Other (See Comment) Heavy Normal Respiratory Shivani 2 Days Reason for Exam Productive cough Other (See Comment) Gram Stain Result 4+ Gram Positive Cocci in Pairs 2+ White Blood Cells 2+ Epithelial Cells PERFORMED BY: [place] [address] PATHOLOGIST PANTOGRAPH II ENGRAVER SHAD LANTIGUA M.D. Normal [facility] Comment on above: Performed By: #### H S TROP, BNP, CMP, CK #### [facility] [address] [place] [address] Blood estimated average gluc ose determination by estimation from glycated hemoglobinOrdered By: Eduin Perez on 08-30-2024 Average glucose Estimated from glycated hemoglobin (Bld) [Mass/Vol] Glucose mean value [Mass/volume] in Blood Estimated from glycated hemoglobin [facility] Gram Stainon 08-30-2024 Microscopic observation Gram stain Nom (Unsp spec) Reason for Exam Productive cough Other (See Comment) Gram Stain Result 4+ Gram Positive Cocci in Pairs 2+ White Blood Cells 2+ Epithelial Cells PERFORMED BY: [place] [address] PATHOLOGIST PANTOGRAPH II ENGRAVER SHAD LANTIGUA M.D. Normal [facility] Comment on above: Performed By: #### H S TROP, BNP, CMP, CK #### [facility] [address] [place] [address] Gram stain microscopyOrdered By: Eduin Perez on 08-30-2024 Microscopic observation Gram stain Nom (Unsp spec) Gram stain microscopy [facility] Hemoglobin A1c/Hemoglobin.to peter in BloodOrdered By: Eduin Perez on 08-30-2024 HbA1c (Bld) [Mass fraction] Hemoglobin A1c percentage High 4.3-5.6 [facility] Comment on above: Increased risk for d iabetes: 5.7 - 6.4diabetes: >6.4glycemic control for adults with diabetes: <7.0 Theophyllineon 08-30-2024 Theophylline <0.8 Low 10.0-20.0 [facility] Comment on above: Order Comment: Reaso n for Exam Therapeutic drug monitoring Date of last dose?: [id number] Time of last dose?: 0900 Result Comment: PERF ORMED BY: [place] [address] PATHOLOGIST PANTOGRAPH II ENGRAVER SHAD LANTIGUA M.D. Performed By: #### R EDMUND PANEL UPP., BIOFIRECOVNOTDE #### [address] Theophylline [Mass/volume] i n Serum or PlasmaOrdered By: Eduin Perez on 08-30-2024 Theophylline [Mass/Vol] Theophylline [Mass/volume] in Serum or Plasma Low 10.0-20.0 [facility] X-ray reportOrdered By: Ad Galindo on 08-30-2024 Study report [facility] [place] [address] XRay Report Signed Patient: Meredith Chaidez MR#: [id number] : 1970 Acct:[id number] Age/Sex: 54 / F ADM Date: 5 Loc: XD Room: Type: [facility] Attending Dr: Eduin Perez DO Copies to: Eduin Perez DO~ Ordering Provider: Eduin Perez DO Date of Service: 08/30/24 XR/XR chest 2V*: Productive cough Plain film chest 2 view HISTORY: Productive cough. COMPARISON: 08/13/2024 FINDINGS: SUPPORT DEVICES: None POSTSURGICAL CHANGES: None HEART: Within normal limits PULMONARY [place]: Within normal limits MEDIASTINUM: Unremarkable LUNGS AND PLEURA: No acute lung process, pleural effusion or pneumothorax identified. BONY STRUCTURES: Thoracic spondylosis/hyperostosis. ADDITIONAL FINDINGS None XR/XR chest 2V* IMPRESSION: No acute process. Impression dictated by: Dallas Galindo M.D.08/30/2024 3:54 PM Dictation Location: [place] [address] Transcribed By: [facility] 08/30/24 1554 Dictated By: Dallas Galindo DO 08/30/24 1553 Signed By: 08/30/24 1554 [facility] XR chest 2V*on 08-30-2024 XR chest 2V* [facility] [place] [address] XRay Report Signed Patient: Meredith Chaidez MR#: [id number] 12 : 1970 Acct:[id number] Age/Sex: 54 / F ADM Date: 08/30/24 Loc: XD Room: Type: [facility] Attending Dr: Eduin Perez DO Copies to: Eduin Perez DO Ordering Provider: Eduin Perez DO Date of Service: 08/30/24 XR/XR chest 2V*: Productive cough Plain film chest 2 view HISTORY: Productive cough. COMPARISON: 08/13/2024 FINDINGS: SUPPORT DEVICES: None POSTSURGICAL CHANGES: None HEART: Within normal limits PULMONARY [place]: Within normal limits MEDIASTINUM: Unremarkable LUNGS AND PLEURA: No acute lung process, pleural effusion or pneumothorax identified. BONY STRUCTURES: Thoracic spondylosis/hyperostosis. ADDITIONAL FINDINGS None XR/XR chest 2V* IMPRESSION: No acute process. Impression dictated by: Dallas Galindo M.D.08/30/2024 3:54 PM Dictation Location: [place] [address] Transcribed By: [facility] 08/30/24 1554 Dictated By: Dallas Galindo DO 08/30/24 1553 Signed By: 08/30/24 1554 Normal [facility] Basic Metabolic Panelon Anion gap [Moles/Vol] 10.8 mmol/L Normal 6.0-15.0 [facility] Comment on above: Performed By: #### R EDMUND PANEL UPP., BIOFIRECOVNOTDE #### [facility] [address] [place] [address] [place] Calcium [Mass/Vol] 9.5 mg/dL Normal 8.6-10.3 [facility] Comment on above: Performed By: #### R EDMUND PANEL UPP., BIOFIRECOVNOTDE #### [facility] [address] [place] [id number] [place] Chloride [Moles/Vol] 100 mmol/L Normal 98-107 [facility] Comment on above: Performed By: #### R EDMUND PANEL UPP., BIOFIRECOVNOTDE #### [facility] [address] [place] [id number] [place] CO2 [Moles/Vol] 28.9 mmol/L Normal 21.0-31.0 [facility] Comment on above: Performed By: #### R EDMUND PANEL UPP., BIOFIRECOVNOTDE #### [facility] [address] Creatinine [Mass/Vol] 0.90 mg/dL Normal 0.60-1.20 [facility] Comment on above: Performed By: #### R EDMUND PANEL UPP., BIOFIRECOVNOTDE #### [place] [address] [place] Creatinine Clr Calc Pharmacy 73.57 Normal [facility] Comment on above: Result Comment: PERF ORMED BY: [place] [address] PATHOLOGIST PANTOGRAPH II ENGRAVER SHAD LANTIGUA M.D. Performed By: #### R EDMUND PANEL UPP., BIOFIRECOVNOTDE #### [place] [address] [place] GFR/1.73 sq M.predicted MDRD (S/P/Bld) [Vol rate/Area] mL/min/{1.73_m2} Normal [facility] Comment on above: Performed By: #### R EDMUND PANEL UPP., BIOFIRECOVNOTDE #### [address] Glucose [Mass/Vol] 99 mg/dL Normal 70-100 [facility] Comment on above: Result Comment: [place] Glucose Reference Range is dependent on time and content of last meal. Glucose of more than 200 mg/dL in a nonstressed, ambulatory subject supports the diagnosis of Diabetes Mellitus. ADA recommended reference range Performed By: #### R EDMUND PANEL UPP., BIOFIRECOVNOTDE #### [place] [address] [place] Potassium [Moles/Vol] 3.7 mmol/L Normal 3.5-5.1 [facility] Comment on above: Result Comment: Hemo lysis is present at a level that could interfere with the result. Contact lab if redraw is required Performed By: #### R EDMUND PANEL UPP., BIOFIRECOVNOTDE #### [address] [place] [address] [place] Sodium [Moles/Vol] 136 mmol/L Normal 136-145 [facility] Comment on above: Performed By: #### R EDMUND PANEL UPP., BIOFIRECOVNOTDE #### [facility] [address] Urea nitrogen [Mass/Vol] 17 mg/dL Normal 7-25 [facility] Comment on above: Performed By: #### R EDMUND PANEL UPP., BIOFIRECOVNOTDE #### [facility] [address] Basophils Auto (Bld) [#/Vol] Ordered By: Carlo Bills on 08-16-2024 Basophils (Bld) [#/Vol] Automated basophil count 0.0-0.2 [facility] Basophils/100 WBC Auto (Bld) Ordered By: Carlo Bills on 08-16-2024 Basophils/100 WBC (Bld) Automated basophil % . [facility] Calcium [Mass/volume] in Ser um or PlasmaOrdered By: Carlo Bills on 08-16-2024 Calcium [Mass/Vol] Calcium [Mass/volume ] in Serum or Plasma 8.6-10.3 [facility] Carbon dioxide, total [Moles /volume] in Serum or PlasmaOrdered By: Carlo Bills on 08-16-2024 CO2 [Moles/Vol] Carbon dioxide, tota l [Moles/volume] in Serum or Plasma 21.0-31.0 [facility] Chloride [Moles/volume] in S uzair or PlasmaOrdered By: Carlo Bills on 08-16-2024 Chloride [Moles/Vol] Chloride [Moles/vol ume] in Serum or Plasma 98-107 [facility] Complete Blood Count Auto Di ffon 08-16-2024 Basophils (Bld) [#/Vol] 0.1 10*3/uL Normal 0.0-0.2 [facility] Comment on above: Result Comment: PERF ORMED BY: [place] [address] PATHOLOGIST PANTOGRAPH II ENGRAVER SHAD LANTIGUA M.D. Performed By: #### R EDMUND PANEL UPP., BIOFIRECOVNOTDE #### [address] Basophils/100 WBC (Bld) 1.3 % Normal . [facility] Comment on above: Performed By: #### R EDMUND PANEL UPP., BIOFIRECOVNOTDE #### [address] Eosinophils (Bld) [#/Vol] 0.6 10*3/uL High 0.0-0.45 [facility] Comment on above: Performed By: #### R EDMUND PANEL UPP., BIOFIRECOVNOTDE #### [address] Eosinophils/100 WBC (Bld) 9.5 % Normal . [facility] Comment on above: Performed By: #### R EDMUND PANEL UPP., BIOFIRECOVNOTDE #### [address] Erythrocyte distribution width (RBC) [Ratio] 13.4 % Normal 11.9-15.3 [facility] Comment on above: Performed By: #### R EDMUND PANEL UPP., BIOFIRECOVNOTDE #### [address] Hematocrit (Bld) [Volume fraction] 40.6 % Normal 34.0-46.4 [facility] Comment on above: Performed By: #### R EDMUND PANEL UPP., BIOFIRECOVNOTDE #### [address] Hemoglobin (Bld) [Mass/Vol] 13.9 g/dL Normal 11.8-15.4 [facility] Comment on above: Performed By: #### R EDMUND PANEL UPP., BIOFIRECOVNOTDE #### [address] Lymphocytes (Bld) [#/Vol] 2.0 10*3/uL Normal 1.00-4.8 [facility] Comment on above: Performed By: #### R EDMUND PANEL UPP., BIOFIRECOVNOTDE #### [address] Lymphocytes/100 WBC (Bld) 30.6 % Normal . [facility] Comment on above: Performed By: #### R EDMUND PANEL UPP., BIOFIRECOVNOTDE #### [address] MCH (RBC) [Entitic mass] 29.7 pg Normal 24.7-34.3 [facility] Comment on above: Performed By: #### R EDMUND PANEL UPP., BIOFIRECOVNOTDE #### [address] MCV (RBC) [Entitic vol] 86.9 fL Normal 80-100 [facility] Comment on above: Performed By: #### R EDMUND PANEL UPP., BIOFIRECOVNOTDE #### [address] Mean Corpuscular HGB Conc 34.1 g/dL Normal 32.0-35.0 [facility] Comment on above: Performed By: #### R EDMUND PANEL UPP., BIOFIRECOVNOTDE #### [address] Monocytes (Bld) [#/Vol] 0.7 10*3/uL Normal 0.0-0.8 [facility] Comment on above: Performed By: #### R EDMUND PANEL UPP., BIOFIRECOVNOTDE #### [address] Monocytes/100 WBC (Bld) 10.7 % Normal . [facility] Comment on above: Performed By: #### R EDMUND PANEL UPP., BIOFIRECOVNOTDE #### [address] Neutrophils (Bld) [#/Vol] 3.2 10*3/uL Normal 1.8-7.7 [facility] Comment on above: Performed By: #### R EDMUND PANEL UPP., BIOFIRECOVNOTDE #### [address] Neutrophils/100 WBC (Bld) 47.9 % Normal . [facility] Comment on above: Performed By: #### R EDMUND PANEL UPP., BIOFIRECOVNOTDE #### [address] NRBC% 0.1 /100{WBC} Normal 0-0.5 [facility] Comment on above: Performed By: #### R EDMUND PANEL UPP., BIOFIRECOVNOTDE #### [address] Platelet mean volume (Bld) [Entitic vol] 8.3 fL Normal 6.3-10.7 [facility] Comment on above: Performed By: #### R EDMUND PANEL UPP., BIOFIRECOVNOTDE #### [place] [address] [place] Platelets (Bld) [#/Vol] 271 10*3/uL Normal 150-450 [facility] Comment on above: Performed By: #### R EDMUND PANEL UPP., BIOFIRECOVNOTDE #### [address] RBC (Bld) [#/Vol] 4.68 10*6/uL Normal 3.60-5.00 [facility] Comment on above: Performed By: #### R EDMUND PANEL UPP., BIOFIRECOVNOTDE #### [address] WBC (Bld) [#/Vol] 6.6 10*3/uL Normal 3.8-11.6 [facility] Comment on above: Performed By: #### R EDMUND PANEL UPP., BIOFIRECOVNOTDE #### [address] Creatinine [Mass/volume] in Serum or PlasmaOrdered By: Carlo Bills on 08-16-2024 Creatinine [Mass/Vol] Creatinine [Mass/v olume] in Serum or Plasma 0.60-1.20 [facility] Eosinophils Auto (Bld) [#/Vo l]Ordered By: Carlo Bills on 08-16-2024 Eosinophils (Bld) [#/Vol] Automated eosinophil count High 0.0-0.45 [facility] Eosinophils/100 WBC Auto (Bl d)Ordered By: Carlo Bills on 08-16-2024 Eosinophils/100 WBC (Bld) Automated eosinophil % . [facility] Erythrocyte distribution wid th Auto (RBC) [Ratio]Ordered By: Carlo Bills on 08-16-2024 Erythrocyte distribution width (RBC) [Ratio] Erythrocyte distribution width [Ratio] by Automated count 11.9-15.3 [facility] Glucose [Mass/volume] in Ser um or PlasmaOrdered By: Carlo Bills on 08-16-2024 Glucose [Mass/Vol] Glucose [Mass/volume ] in Serum or Plasma 70-100 [facility] Comment on above: ADA recommended refe rence rangeRandom Glucose Reference Range is dependent on time and content of last meal. Glucose of more than 200 mg/dL in a nonstressed, ambulatory subject supports the diagnosis of Diabetes Mellitus. Hematocrit Auto (Bld) [Volum e fraction]Ordered By: Carlo Bills on 08-16-2024 Hematocrit (Bld) [Volume fraction] Hematocrit [Volume Fraction] of Blood by Automated count 34.0-46.4 [facility] Hemoglobin [Mass/volume] in BloodOrdered By: Carlo Bills on 08-16-2024 Hemoglobin (Bld) [Mass/Vol] Hemoglobin [Mass/volume] in Blood 11.8-15.4 [facility] Leukocytes [#/volume] correc lucas for nucleated erythrocytes in Blood by Automated counOrdered By: Carlo Bills on 08-16-2024 WBC corrected for nucl RBC Auto (Bld) [#/Vol] Leukocytes [#/volume] corrected for nucleated erythrocytes in Blood by Automated coun 3.8-11.6 [facility] Lymphocytes Auto (Bld) [#/Vo l]Ordered By: Carlo Bills on 08-16-2024 Lymphocytes (Bld) [#/Vol] Lymphocytes [#/volume] in Blood by Automated count 1.00-4.8 [facility] Lymphocytes/100 WBC Auto (Bl d)Ordered By: Carlo Bills on 08-16-2024 Lymphocytes/100 WBC (Bld) Lymphocytes/100 leukocytes in Blood by Automated count . [facility] MCH Auto (RBC) [Entitic mass ]Ordered By: Carlo Bills on 08-16-2024 MCH (RBC) [Entitic mass] MCH [Entitic mass] by Automated count 24.7-34.3 [facility] MCHC Auto (RBC) [Mass/Vol]Or dered By: Carlo Bills on 08-16-2024 MCHC (RBC) [Mass/Vol] MCHC [Mass/volume] by Automated count 32.0-35.0 [facility] MCV Auto (RBC) [Entitic vol] Ordered By: Carlo Bills on 08-16-2024 MCV (RBC) [Entitic vol] MCV [Entitic vol ume] by Automated count 80-100 [facility] Monocytes Auto (Bld) [#/Vol] Ordered By: Carlo Bills on 08-16-2024 Monocytes (Bld) [#/Vol] Automated blood monocyte count 0.0-0.8 [facility] Monocytes/100 WBC Auto (Bld) Ordered By: Carlo Bills on 08-16-2024 Monocytes/100 WBC (Bld) Automated monocyte % . [facility] Neutrophils Auto (Bld) [#/Vo l]Ordered By: Carlo Bills on 08-16-2024 Neutrophils (Bld) [#/Vol] Neutrophils [#/volume] in Blood by Automated count 1.8-7.7 [facility] Neutrophils/100 WBC Auto (Bl d)Ordered By: Carlo Bills on 08-16-2024 Neutrophils/100 WBC (Bld) Automated neutrophil % . [facility] No Panel InformationOrdered By: Carlo Bills on 08-16-2024 Estimated GFR (CKD-EPI) > 60.0 mL/Min [facility] Creatinine Clearance (Chem 73.57 [facility] Nucleated erythrocytes [Pres ence] in Blood by Automated countOrdered By: Carlo Bills on 08-16-2024 Nucleated RBC Auto Ql (Bld) Nucleated erythrocytes [Presence] in Blood by Automated count 0-0.5 [facility] Platelet mean volume Auto (B ld) [Entitic vol]Ordered By: Carlo Bills on 08-16-2024 Platelet mean volume (Bld) [Entitic vol] Platelet mean volume [Entitic volume] in Blood by Automated count 6.3-10.7 [facility] Platelets Auto (Bld) [#/Vol] Ordered By: Carlo Bills on 08-16-2024 Platelets (Bld) [#/Vol] Platelets [#/vol ume] in Blood by Automated count 150-450 [facility] Potassium [Moles/volume] in Serum or PlasmaOrdered By: Carlo Bills on 08-16-2024 Potassium [Moles/Vol] Potassium [Moles/v olume] in Serum or Plasma 3.5-5.1 [facility] Comment on above: Hemolysis is present at a level that could interfere with the result.Contact lab if redraw is required RBC Auto (Bld) [#/Vol]Ordere d By: Carlo Bills on 08-16-2024 RBC (Bld) [#/Vol] Erythrocytes [#/volu me] in Blood by Automated count 3.60-5.00 [facility] Serum or plasma anion gap de terminationOrdered By: Carlo Bills on 08-16-2024 Anion gap [Moles/Vol] Serum or plasma an ion gap determination 6.0-15.0 [facility] Sodium [Moles/volume] in Ser um or PlasmaOrdered By: Carlo Bills on 08-16-2024 Sodium [Moles/Vol] Sodium [Moles/volume ] in Serum or Plasma 136-145 [facility] Urea nitrogen [Mass/volume] in Serum or PlasmaOrdered By: Carlo Bills on 08-16-2024 Urea nitrogen [Mass/Vol] Urea nitrogen [Mass/volume] in Serum or Plasma 7-25 [facility] WBC Auto (Bld) [#/Vol]Ordere d By: Carlo Bills on 08-16-2024 WBC (Bld) [#/Vol] Leukocytes [#/volume ] in Blood by Automated count 3.8-11.6 [facility] Basic Metabolic Panelon Anion gap [Moles/Vol] 13.5 mmol/L Normal 6.0-15.0 [facility] Comment on above: Performed By: #### H S TROP, BNP, CMP, CK #### [address] Calcium [Mass/Vol] 9.6 mg/dL Normal 8.6-10.3 [facility] Comment on above: Performed By: #### H S TROP, BNP, CMP, CK #### [address] Chloride [Moles/Vol] 96 mmol/L Low 98-107 [facility] Comment on above: Performed By: #### H S TROP, BNP, CMP, CK #### [address] CO2 [Moles/Vol] 28.1 mmol/L Normal 21.0-31.0 [facility] Comment on above: Performed By: #### H S TROP, BNP, CMP, CK #### [address] Creatinine [Mass/Vol] 0.94 mg/dL Normal 0.60-1.20 [facility] Comment on above: Performed By: #### H S TROP, BNP, CMP, CK #### [address] Creatinine Clr Calc Pharmacy 69.45 Normal [facility] Comment on above: Result Comment: PERF ORMED BY: [place] [address] PATHOLOGIST PANTOGRAPH II ENGRAVER SHAD LANTIGUA M.D. Performed By: #### H S TROP, BNP, CMP, CK #### [place] [address] [place] GFR/1.73 sq M.predicted MDRD (S/P/Bld) [Vol rate/Area] mL/min/{1.73_m2} Normal [facility] Comment on above: Performed By: #### H S TROP, BNP, CMP, CK #### [address] Glucose [Mass/Vol] 93 mg/dL Normal 70-100 [facility] Comment on above: Result Comment: [place] Glucose Reference Range is dependent on time and content of last meal. Glucose of more than 200 mg/dL in a nonstressed, ambulatory subject supports the diagnosis of Diabetes Mellitus. ADA recommended reference range Performed By: #### H S TROP, BNP, CMP, CK #### [address] Potassium [Moles/Vol] 3.6 mmol/L Normal 3.5-5.1 [facility] Comment on above: Performed By: #### H S TROP, BNP, CMP, CK #### [address] Sodium [Moles/Vol] 134 mmol/L Low 136-145 [facility] Comment on above: Performed By: #### H S TROP, BNP, CMP, CK #### [address] Urea nitrogen [Mass/Vol] 18 mg/dL Normal 7-25 [facility] Comment on above: Performed By: #### H S TROP, BNP, CMP, CK #### [address] Complete Blood Count Auto Di ffon 08-15-2024 Basophils (Bld) [#/Vol] 0.1 10*3/uL Normal 0.0-0.2 [facility] Comment on above: Result Comment: PERF ORMED BY: [place] [address] PATHOLOGIST PANTOGRAPH II ENGRAVER SHAD LANTIGUA M.D. Performed By: #### H S TROP, BNP, CMP, CK #### [address] Basophils/100 WBC (Bld) 1.2 % Normal . [facility] Comment on above: Performed By: #### H S TROP, BNP, CMP, CK #### [place] [address] [place] Eosinophils (Bld) [#/Vol] 0.6 10*3/uL High 0.0-0.45 [facility] Comment on above: Performed By: #### H S TROP, BNP, CMP, CK #### [address] Eosinophils/100 WBC (Bld) 7.5 % Normal . [facility] Comment on above: Performed By: #### H S TROP, BNP, CMP, CK #### [address] Erythrocyte distribution width (RBC) [Ratio] 13.1 % Normal 11.9-15.3 [facility] Comment on above: Performed By: #### H S TROP, BNP, CMP, CK #### [address] Hematocrit (Bld) [Volume fraction] 42.2 % Normal 34.0-46.4 [facility] Comment on above: Performed By: #### H S TROP, BNP, CMP, CK #### [address] Hemoglobin (Bld) [Mass/Vol] 14.2 g/dL Normal 11.8-15.4 [facility] Comment on above: Performed By: #### H S TROP, BNP, CMP, CK #### [address] Lymphocytes (Bld) [#/Vol] 2.3 10*3/uL Normal 1.00-4.8 [facility] Comment on above: Performed By: #### H S TROP, BNP, CMP, CK #### [address] Lymphocytes/100 WBC (Bld) 29.3 % Normal . [facility] Comment on above: Performed By: #### H S TROP, BNP, CMP, CK #### [address] MCH (RBC) [Entitic mass] 29.5 pg Normal 24.7-34.3 [facility] Comment on above: Performed By: #### H S TROP, BNP, CMP, CK #### [address] MCV (RBC) [Entitic vol] 87.7 fL Normal 80-100 [facility] Comment on above: Performed By: #### H S TROP, BNP, CMP, CK #### [address] Mean Corpuscular HGB Conc 33.6 g/dL Normal 32.0-35.0 [facility] Comment on above: Performed By: #### H S TROP, BNP, CMP, CK #### [address] Monocytes (Bld) [#/Vol] 0.9 10*3/uL High 0.0-0.8 [facility] Comment on above: Performed By: #### H S TROP, BNP, CMP, CK #### [address] Monocytes/100 WBC (Bld) 11.0 % Normal . [facility] Comment on above: Performed By: #### H S TROP, BNP, CMP, CK #### [address] Neutrophils (Bld) [#/Vol] 4.1 10*3/uL Normal 1.8-7.7 [facility] Comment on above: Performed By: #### H S TROP, BNP, CMP, CK #### [address] Neutrophils/100 WBC (Bld) 51.0 % Normal . [facility] Comment on above: Performed By: #### H S TROP, BNP, CMP, CK #### [address] NRBC% 0.2 /100{WBC} Normal 0-0.5 [facility] Comment on above: Performed By: #### H S TROP, BNP, CMP, CK #### [address] Platelet mean volume (Bld) [Entitic vol] 8.0 fL Normal 6.3-10.7 [facility] Comment on above: Performed By: #### H S TROP, BNP, CMP, CK #### [address] Platelets (Bld) [#/Vol] 279 10*3/uL Normal 150-450 [facility] Comment on above: Performed By: #### H S TROP, BNP, CMP, CK #### [address] RBC (Bld) [#/Vol] 4.82 10*6/uL Normal 3.60-5.00 [facility] Comment on above: Performed By: #### H S TROP, BNP, CMP, CK #### [address] WBC (Bld) [#/Vol] 8.0 10*3/uL Normal 3.8-11.6 [facility] Comment on above: Performed By: #### H S TROP, BNP, CMP, CK #### [address] Basic Metabolic Panelon 0 Anion gap [Moles/Vol] 15.6 mmol/L High 6.0-15.0 [facility] Comment on above: Performed By: #### H S TROP, BNP, CMP, CK #### [address] Calcium [Mass/Vol] 9.7 mg/dL Normal 8.6-10.3 [facility] Comment on above: Performed By: #### H S TROP, BNP, CMP, CK #### [address] Chloride [Moles/Vol] 95 mmol/L Low 98-107 [facility] Comment on above: Performed By: #### H S TROP, BNP, CMP, CK #### [address] CO2 [Moles/Vol] 28.5 mmol/L Normal 21.0-31.0 [facility] Comment on above: Performed By: #### H S TROP, BNP, CMP, CK #### [address] Creatinine [Mass/Vol] 0.87 mg/dL Normal 0.60-1.20 [facility] Comment on above: Performed By: #### H S TROP, BNP, CMP, CK #### [place] [address] [place] Creatinine Clr Calc Pharmacy 75.04 Normal [facility] Comment on above: Result Comment: PERF ORMED BY: [place] [address] PATHOLOGIST PANTOGRAPH II ENGRAVER SHAD LANTIGUA M.D. Performed By: #### H S TROP, BNP, CMP, CK #### [address] GFR/1.73 sq M.predicted MDRD (S/P/Bld) [Vol rate/Area] mL/min/{1.73_m2} Normal [facility] Comment on above: Performed By: #### H S TROP, BNP, CMP, CK #### [address] Glucose [Mass/Vol] 102 mg/dL High 70-100 [facility] Comment on above: Result Comment: [place] Glucose Reference Range is dependent on time and content of last meal. Glucose of more than 200 mg/dL in a nonstressed, ambulatory subject supports the diagnosis of Diabetes Mellitus. ADA recommended reference range Performed By: #### H S TROP, BNP, CMP, CK #### [address] Potassium [Moles/Vol] 4.1 mmol/L Normal 3.5-5.1 [facility] Comment on above: Performed By: #### H S TROP, BNP, CMP, CK #### [address] Sodium [Moles/Vol] 135 mmol/L Low 136-145 [facility] Comment on above: Performed By: #### H S TROP, BNP, CMP, CK #### [address] Urea nitrogen [Mass/Vol] 16 mg/dL Normal 7-25 [facility] Comment on above: Performed By: #### H S TROP, BNP, CMP, CK #### [address] Complete Blood Count Auto Di ffon 08-14-2024 Basophils (Bld) [#/Vol] 0.1 10*3/uL Normal 0.0-0.2 [facility] Comment on above: Result Comment: PERF ORMED BY: [place] [address] PATHOLOGIST PANTOGRAPH II ENGRAVER SHAD LANTIGUA M.D. Performed By: #### H S TROP, BNP, CMP, CK #### [address] Basophils/100 WBC (Bld) 1.0 % Normal . [facility] Comment on above: Performed By: #### H S TROP, BNP, CMP, CK #### [address] Eosinophils (Bld) [#/Vol] 0.2 10*3/uL Normal 0.0-0.45 [facility] Comment on above: Performed By: #### H S TROP, BNP, CMP, CK #### [address] Eosinophils/100 WBC (Bld) 2.6 % Normal . [facility] [facility] Comment on above: Performed By: #### H S TROP, BNP, CMP, CK #### [address] Erythrocyte distribution width (RBC) [Ratio] 13.2 % Normal 11.9-15.3 [facility] Comment on above: Performed By: #### H S TROP, BNP, CMP, CK #### [address] Hematocrit (Bld) [Volume fraction] 42.3 % Normal 34.0-46.4 [facility] Comment on above: Performed By: #### H S TROP, BNP, CMP, CK #### [address] Hemoglobin (Bld) [Mass/Vol] 14.1 g/dL Normal 11.8-15.4 [facility] Comment on above: Performed By: #### H S TROP, BNP, CMP, CK #### [address] Lymphocytes (Bld) [#/Vol] 1.7 10*3/uL Normal 1.00-4.8 [facility] Comment on above: Performed By: #### H S TROP, BNP, CMP, CK #### [address] Lymphocytes/100 WBC (Bld) 17.5 % Normal . [facility] Comment on above: Performed By: #### H S TROP, BNP, CMP, CK #### [address] MCH (RBC) [Entitic mass] 29.5 pg Normal 24.7-34.3 [facility] Comment on above: Performed By: #### H S TROP, BNP, CMP, CK #### [address] MCV (RBC) [Entitic vol] 88.5 fL Normal 80-100 [facility] Comment on above: Performed By: #### H S TROP, BNP, CMP, CK #### [address] Mean Corpuscular HGB Conc 33.4 g/dL Normal 32.0-35.0 [facility] Comment on above: Performed By: #### H S TROP, BNP, CMP, CK #### [address] Monocytes (Bld) [#/Vol] 0.7 10*3/uL Normal 0.0-0.8 [facility] Comment on above: Performed By: #### H S TROP, BNP, CMP, CK #### [facility] [address] Monocytes/100 WBC (Bld) 6.9 % Normal . [facility] Comment on above: Performed By: #### H S TROP, BNP, CMP, CK #### [address] Neutrophils (Bld) [#/Vol] 6.9 10*3/uL Normal 1.8-7.7 [facility] Comment on above: Performed By: #### H S TROP, BNP, CMP, CK #### [address] Neutrophils/100 WBC (Bld) 72.0 % Normal . [facility] Comment on above: Performed By: #### H S TROP, BNP, CMP, CK #### [address] NRBC% 0.0 /100{WBC} Normal 0-0.5 [facility] Comment on above: Performed By: #### H S TROP, BNP, CMP, CK #### [address] Platelet mean volume (Bld) [Entitic vol] 8.4 fL Normal 6.3-10.7 [facility] Comment on above: Performed By: #### H S TROP, BNP, CMP, CK #### [place] [address] [place] Platelets (Bld) [#/Vol] 291 10*3/uL Normal 150-450 [facility] Comment on above: Performed By: #### H S TROP, BNP, CMP, CK #### [place] [address] [place] RBC (Bld) [#/Vol] 4.78 10*6/uL Normal 3.60-5.00 [facility] Comment on above: Performed By: #### H S TROP, BNP, CMP, CK #### [place] [address] [place] WBC (Bld) [#/Vol] 9.6 10*3/uL Normal 3.8-11.6 [facility] Comment on above: Performed By: #### H S TROP, BNP, CMP, CK #### [facility] [address] [place] [address] MISC LABon 08-14-2024 MISC LAB Normal [facility] Comment on above: Order Comment: Comme nt anti-U1-ENVIRONMENTAL TECHNOLOGY PROFESSOR antibody [facility] Test Name: anti-U1-ENVIRONMENTAL TECHNOLOGY PROFESSOR antibody Result Comment: See report. Scanned copy available in EMR. PERFORMED BY: [place] [address] PATHOLOGIST PANTOGRAPH II ENGRAVER SHAD LANTIGUA M.D. Performed By: #### H S TROP, BNP, CMP, CK #### [facility] [address] [place] [address] No Panel InformationOrdered By: Carlo Bills on 08-14-2024 Miscellaneous Test See comment [facility] Comment on above: See report. Scanned copy available in EMR. Alanine aminotransferase [En zymatic activity/volume] in Serum or PlasmaOrdered By: Paras Herndon on 08-13-2024 ALT [Catalytic activity/Vol] Alanine aminotransferase [Enzymatic activity/volume] in Serum or Plasma [facility]52 [facility] Albumin [Mass/volume] in Ser um or Plasma by Bromocresol green (BCG) dye binding methoOrdered By: Paras Herndon on 08-13-2024 Albumin BCG dye [Mass/Vol] Albumin [Mass/volume] in Serum or Plasma by Bromocresol green (BCG) dye binding metho 3.5-5.7 [facility] Alkaline phosphatase [Enzyma tic activity/volume] in Serum or PlasmaOrdered By: Paras Herndon on 08-13-2024 ALP [Catalytic activity/Vol] Alkaline phosphatase [Enzymatic activity/volume] in Serum or Plasma 34-104 [facility] Aspartate aminotransferase [ Enzymatic activity/volume] in Serum or PlasmaOrdered By: Paras Herndon on 08-13-2024 AST [Catalytic activity/Vol] Aspartate aminotransferase [Enzymatic activity/volume] in Serum or Plasma 13-39 [facility] B-Type Natriuretic Peptideon 08-13-2024 Natriuretic peptide B (Bld) [Mass/Vol] 16.0 pg/mL Normal 5-100 [facility] Comment on above: Result Comment: PERF ORMED BY: [place] [address] PATHOLOGIST PANTOGRAPH II ENGRAVER SHAD LANTIGUA M.D. Performed By: #### R EDMUND PANEL UPP., BIOFIRECOVNOTDE #### [address] Basophils Auto (Bld) [#/Vol] Ordered By: Paras Herndon on 08-13-2024 Basophils (Bld) [#/Vol] Automated basophil count 0.0-0.2 [facility] Basophils/100 WBC Auto (Bld) Ordered By: Paras Herndon on 08-13-2024 Basophils/100 WBC (Bld) Automated basophil % . [facility] Bilirubin.total [Mass/volume ] in Serum or PlasmaOrdered By: Paras Herndon on 08-13-2024 Bilirubin [Mass/Vol] Bilirubin.total [Mass/volume] in Serum or Plasma 0.3-1.0 [facility] BioFire Not Detectedon 08-13 BioFire Not Detected Not detected Normal Not Detecte [facility] Comment on above: Result Comment: This is a duplicate RP2.1 COVID (PCR) result to be used for statistical tracking purpose only. PERFORMED BY: [place] [address] PATHOLOGIST PANTOGRAPH II ENGRAVER SHAD LANTIGUA M.D. Performed By: #### R EDMUND PANEL UPP., BIOFIRECOVNOTDE #### [address] COVID-19 Detected/Not Detect edOrdered By: Paras Herndon on 08-13-2024 SARS-CoV-2 (COVID-19) RNA JAMES+non-probe Ql (Nph) Not detected Not Detecte [facility] Comment on above: This is a duplicate RP2.1 COVID (PCR) result to be used for statistical tracking purpose only. Calcium [Mass/volume] in Ser um or PlasmaOrdered By: Paras Herndon on 08-13-2024 Calcium [Mass/Vol] Calcium [Mass/volume ] in Serum or Plasma 8.6-10.3 [facility] Carbon dioxide, total [Moles /volume] in Serum or PlasmaOrdered By: Paras Herndon on 08-13-2024 CO2 [Moles/Vol] Carbon dioxide, tota l [Moles/volume] in Serum or Plasma High 21.0-31.0 [facility] Chloride [Moles/volume] in S uzair or PlasmaOrdered By: Paras Herndon on 08-13-2024 Chloride [Moles/Vol] Chloride [Moles/vol ume] in Serum or Plasma Low 98-107 [facility] Complete Blood Count Auto Di ffon 08-13-2024 Basophils (Bld) [#/Vol] 0.1 10*3/uL Normal 0.0-0.2 [facility] Comment on above: Result Comment: PERF ORMED BY: [place] [address] PATHOLOGIST PANTOGRAPH II ENGRAVER SHAD LANTIGUA M.D. Performed By: #### R EDMUND PANEL UPP., BIOFIRECOVNOTDE #### [address] Basophils/100 WBC (Bld) 0.6 % Normal . Soraida bruce [facility] Comment on above: Performed By: #### R EDMUND PANEL UPP., BIOFIRECOVNOTDE #### [place] [address] [place] Eosinophils (Bld) [#/Vol] 0.2 10*3/uL Normal 0.0-0.45 [facility] Comment on above: Performed By: #### R EDMUND PANEL UPP., BIOFIRECOVNOTDE #### [address] Eosinophils/100 WBC (Bld) 2.5 % Normal . [facility] Comment on above: Performed By: #### R EDMUND PANEL UPP., BIOFIRECOVNOTDE #### [place] [id number] [place] Erythrocyte distribution width (RBC) [Ratio] 13.4 % Normal 11.9-15.3 [facility] Comment on above: Performed By: #### R EDMUND PANEL UPP., BIOFIRECOVNOTDE #### [address] Hematocrit (Bld) [Volume fraction] 44.7 % Normal 34.0-46.4 [facility] Comment on above: Performed By: #### R EDMUND PANEL UPP., BIOFIRECOVNOTDE #### [address] Hemoglobin (Bld) [Mass/Vol] 14.9 g/dL Normal 11.8-15.4 [facility] Comment on above: Performed By: #### R EDMUND PANEL UPP., BIOFIRECOVNOTDE #### [address] Lymphocytes (Bld) [#/Vol] 1.3 10*3/uL Normal 1.00-4.8 [facility] Comment on above: Performed By: #### R EDMUND PANEL UPP., BIOFIRECOVNOTDE #### [address] Lymphocytes/100 WBC (Bld) 14.4 % Normal . [facility] Comment on above: Performed By: #### R EDMUND PANEL UPP., BIOFIRECOVNOTDE #### [address] MCH (RBC) [Entitic mass] 29.8 pg Normal 24.7-34.3 [facility] Comment on above: Performed By: #### R EDMUND PANEL UPP., BIOFIRECOVNOTDE #### [address] MCV (RBC) [Entitic vol] 89.4 fL Normal 80-100 [facility] Comment on above: Performed By: #### R EDMUND PANEL UPP., BIOFIRECOVNOTDE #### [address] Mean Corpuscular HGB Conc 33.3 g/dL Normal 32.0-35.0 [facility] Comment on above: Performed By: #### R EDMUND PANEL UPP., BIOFIRECOVNOTDE #### [address] Monocytes (Bld) [#/Vol] 0.5 10*3/uL Normal 0.0-0.8 [facility] Comment on above: Performed By: #### R EDMUND PANEL UPP., BIOFIRECOVNOTDE #### [address] Monocytes/100 WBC (Bld) 17.20 % Normal 0.00-20.00 [facility] Comment on above: Performed By: #### R EDMUND PANEL UPP., BIOFIRECOVNOTDE #### [address] Monocytes/100 WBC (Bld) 5.1 % Normal . [facility] Comment on above: Performed By: #### R EDMUND PANEL UPP., BIOFIRECOVNOTDE #### [address] Neutrophils (Bld) [#/Vol] 7.2 10*3/uL Normal 1.8-7.7 [facility] Comment on above: Performed By: #### R EDMUND PANEL UPP., BIOFIRECOVNOTDE #### [address] Neutrophils/100 WBC (Bld) 77.4 % Normal . [facility] Comment on above: Performed By: #### R EDMUND PANEL UPP., BIOFIRECOVNOTDE #### [address] NRBC% 0.1 /100{WBC} Normal 0-0.5 [facility] Comment on above: Performed By: #### R EDMUND PANEL UPP., BIOFIRECOVNOTDE #### [address] Platelet mean volume (Bld) [Entitic vol] 8.2 fL Normal 6.3-10.7 [facility] Comment on above: Performed By: #### R EDMUND PANEL UPP., BIOFIRECOVNOTDE #### [address] Platelets (Bld) [#/Vol] 345 10*3/uL Normal 150-450 [facility] Comment on above: Performed By: #### R EDMUND PANEL UPP., BIOFIRECOVNOTDE #### [address] RBC (Bld) [#/Vol] 5.00 10*6/uL Normal 3.60-5.00 [facility] Comment on above: Performed By: #### R EDMUND PANEL UPP., BIOFIRECOVNOTDE #### [address] WBC (Bld) [#/Vol] 9.4 10*3/uL Normal 3.8-11.6 [facility] Comment on above: Performed By: #### R EDMUND PANEL UPP., BIOFIRECOVNOTDE #### [address] Comprehensive Metabolic Pane tru 08-13-2024 Albumin [Mass/Vol] 4.5 g/dL Normal 3.5-5.7 [facility] Comment on above: Performed By: #### R EDMUND PANEL UPP., BIOFIRECOVNOTDE #### [address] Albumin/Globulin [Mass ratio] 1.0 {ratio} Normal [facility] Comment on above: Performed By: #### R EDMUND PANEL UPP., BIOFIRECOVNOTDE #### [address] ALP [Catalytic activity/Vol] 95 U/L Normal 34-104 [facility] Comment on above: Performed By: #### R EDMUND PANEL UPP., BIOFIRECOVNOTDE #### [address] ALT [Catalytic activity/Vol] 16 U/L Normal 7-52 [facility] Comment on above: Performed By: #### R EDMUND PANEL UPP., BIOFIRECOVNOTDE #### [address] Anion gap [Moles/Vol] 10.2 mmol/L Normal 6.0-15.0 [facility] Comment on above: Performed By: #### R EDMUND PANEL UPP., BIOFIRECOVNOTDE #### [address] AST [Catalytic activity/Vol] 20 U/L Normal 13-39 [facility] Comment on above: Performed By: #### R EDMUND PANEL UPP., BIOFIRECOVNOTDE #### [address] Bilirubin [Mass/Vol] 0.5 mg/dL Normal 0.3-1.0 [facility] Comment on above: Performed By: #### R EDMUND PANEL UPP., BIOFIRECOVNOTDE #### [address] Calcium [Mass/Vol] 9.9 mg/dL Normal 8.6-10.3 [facility] Comment on above: Performed By: #### R EDMUND PANEL UPP., BIOFIRECOVNOTDE #### [address] Chloride [Moles/Vol] 97 mmol/L Low 98-107 [facility] Comment on above: Performed By: #### R EDMUND PANEL UPP., BIOFIRECOVNOTDE #### [place] [address] [place] CO2 [Moles/Vol] 32.1 mmol/L High 21.0-31.0 [facility] Comment on above: Performed By: #### R EDMUND PANEL UPP., BIOFIRECOVNOTDE #### [address] Creatinine [Mass/Vol] 0.96 mg/dL Normal 0.60-1.20 [facility] Comment on above: Performed By: #### R EDMUND PANEL UPP., BIOFIRECOVNOTDE #### [address] Creatinine Clr Calc Pharmacy 70.03 Normal [facility] Comment on above: Performed By: #### R EDMUND PANEL UPP., BIOFIRECOVNOTDE #### [address] GFR/1.73 sq M.predicted MDRD (S/P/Bld) [Vol rate/Area] mL/min/{1.73_m2} Normal [facility] Comment on above: Performed By: #### R EDMUND PANEL UPP., BIOFIRECOVNOTDE #### [address] Globulin (S) [Mass/Vol] 4.3 g/dL Normal [facility] Comment on above: Performed By: #### R EDMUND PANEL UPP., BIOFIRECOVNOTDE #### [address] Glucose [Mass/Vol] 107 mg/dL High 70-100 [facility] Comment on above: Result Comment: [place] Glucose Reference Range is dependent on time and content of last meal. Glucose of more than 200 mg/dL in a nonstressed, ambulatory subject supports the diagnosis of Diabetes Mellitus. ADA recommended reference range Performed By: #### R EDMUND PANEL UPP., BIOFIRECOVNOTDE #### [address] Potassium [Moles/Vol] 4.3 mmol/L Normal 3.5-5.1 [facility] Comment on above: Performed By: #### R EDMUND PANEL UPP., BIOFIRECOVNOTDE #### [address] Protein [Mass/Vol] 8.8 g/dL Normal 6.4-8.9 [facility] Comment on above: Performed By: #### R EDMUND PANEL UPP., BIOFIRECOVNOTDE #### [address] Sodium [Moles/Vol] 135 mmol/L Low 136-145 [facility] Comment on above: Performed By: #### R EDMUND PANEL UPP., BIOFIRECOVNOTDE #### [address] Urea nitrogen [Mass/Vol] 12 mg/dL Normal 7-25 [facility] Comment on above: Performed By: #### R EDMUND PANEL UPP., BIOFIRECOVNOTDE #### [place] [id number] [facility] Creatine Kinaseon 08-13-2024 CK [Catalytic activity/Vol] 182 U/L Normal 30-223 [facility] Comment on above: Performed By: #### R EDMUND PANEL UPP., BIOFIRECOVNOTDE #### [address] Creatine kinase [Enzymatic a ctivity/volume] in Serum or PlasmaOrdered By: Paras Herndon on 08-13-2024 CK [Catalytic activity/Vol] Creatine kinase [Enzymatic activity/volume] in Serum or Plasma 30-223 [facility] Creatinine [Mass/volume] in Serum or PlasmaOrdered By: Paras Herndon on 08-13-2024 Creatinine [Mass/Vol] Creatinine [Mass/v olume] in Serum or Plasma 0.60-1.20 [facility] ECG 12 lead ECGon 08-13-2024 ECG 12 lead ECG [facility] [place] [address] Electrocardiograph Report Signed Patient: Meredith Chaidez MR#: [id number] 12 : 1970 Acct:[id number] Age/Sex: 54 / F ADM Date: 08/13/24 Loc: Room: [address] [place] [address] Type: ADM IN Attending Dr: Carlo Bills DO Ordering Provider: Paras Herndon DO Date of Service: 08/13/2411/03/2319 ECG/ECG 12 lead ECG: hypoxia Copies to: Test Reason : Blood Pressure : */* mmHG Vent. Rate : 87 BPM Atrial Rate : 87 BPM P-R Int : 150 ms QRS Dur : 82 ms QT Int : 472 ms P-R-T Axes : 64 -36 66 degrees QTcB Int : 567 ms Normal sinus rhythm Left axis deviation Nonspecific T wave abnormality Abnormal ECG When compared with ECG of 12-Aug-2024 22:28, (Unconfirmed) QRS axis shifted left Nonspecific T wave abnormality now evident in Inferior leads Nonspecific T wave abnormality now evident in Anterolateral leads QT has lengthened Confirmed by PARAS HERNDON DO ([id number]) on 08/14/2024 1:57:03 AM Referred By: Electronically Signed By: PARAS HERNDON DO Transcribed By: MUS Signed By Paras Herndon DO 08/14 0157 Normal [facility] Eosinophils Auto (Bld) [#/Vo l]Ordered By: Paras Herndon on 08-13-2024 Eosinophils (Bld) [#/Vol] Automated eosinophil count 0.0-0.45 [facility] Eosinophils/100 WBC Auto (Bl d)Ordered By: Paras Herndon on 08-13-2024 Eosinophils/100 WBC (Bld) Automated eosinophil % . [facility] Erythrocyte distribution wid th Auto (RBC) [Ratio]Ordered By: Paras Herndon on 08-13-2024 Erythrocyte distribution width (RBC) [Ratio] Erythrocyte distribution width [Ratio] by Automated count 11.9-15.3 [facility] Globulin Calc (S) [Mass/Vol] Ordered By: Paras Herndon on 08-13-2024 Globulin (S) [Mass/Vol] Serum globulin measurement by calculation (mass/volume) [facility] Glucose [Mass/volume] in Ser um or PlasmaOrdered By: Paras Herndon on 08-13-2024 Glucose [Mass/Vol] Glucose [Mass/volume ] in Serum or Plasma High 70-100 [facility] Comment on above: ADA recommended refe rence rangeRandom Glucose Reference Range is dependent on time and content of last meal. Glucose of more than 200 mg/dL in a nonstressed, ambulatory subject supports the diagnosis of Diabetes Mellitus. Hematocrit Auto (Bld) [Volum e fraction]Ordered By: Paras Herndon on 08-13-2024 Hematocrit (Bld) [Volume fraction] Hematocrit [Volume Fraction] of Blood by Automated count 34.0-46.4 [facility] Hemoglobin [Mass/volume] in BloodOrdered By: Paras Herndon on 08-13-2024 Hemoglobin (Bld) [Mass/Vol] Hemoglobin [Mass/volume] in Blood 11.8-15.4 [facility] Leukocytes [#/volume] correc lucas for nucleated erythrocytes in Blood by Automated counOrdered By: Paras Herndon on 08-13-2024 WBC corrected for nucl RBC Auto (Bld) [#/Vol] Leukocytes [#/volume] corrected for nucleated erythrocytes in Blood by Automated coun 3.8-11.6 [facility] Lymphocytes Auto (Bld) [#/Vo l]Ordered By: Paras Herndon on 08-13-2024 Lymphocytes (Bld) [#/Vol] Lymphocytes [#/volume] in Blood by Automated count 1.00-4.8 [facility] Lymphocytes/100 WBC Auto (Bl d)Ordered By: Paras Herndon on 08-13-2024 Lymphocytes/100 WBC (Bld) Lymphocytes/100 leukocytes in Blood by Automated count . [facility] MCH Auto (RBC) [Entitic mass ]Ordered By: Paras Herndon on 08-13-2024 MCH (RBC) [Entitic mass] MCH [Entitic mass] by Automated count 24.7-34.3 [facility] MCHC Auto (RBC) [Mass/Vol]Or dered By: Paras Herndon on 08-13-2024 MCHC (RBC) [Mass/Vol] MCHC [Mass/volume] by Automated count 32.0-35.0 [facility] MCV Auto (RBC) [Entitic vol] Ordered By: Paras Herndon on 08-13-2024 MCV (RBC) [Entitic vol] MCV [Entitic vol ume] by Automated count 80-100 [facility] Magnesiumon 08-13-2024 Magnesium [Mass/Vol] 1.9 mg/dL Normal 1.9-2.7 [facility] Comment on above: Result Comment: PERF ORMED BY: [facility] [address] [place] [address] PATHOLOGIST PANTOGRAPH II ENGRAVER SHAD LANTIGUA M.D. Performed By: #### R EDMUND PANEL UPP., BIOFIRECOVNOTDE #### [facility] [address] [place] [id number] [facility] Magnesium [Mass/volume] in S uzair or PlasmaOrdered By: Paras Herndon on 08-13-2024 Magnesium [Mass/Vol] Magnesium [Mass/vol ume] in Serum or Plasma 1.9-2.7 [facility] Monocyte distribution width [Entitic volume] in Blood by AutomatedOrdered By: Paras Herndon on 08-13-2024 Monocyte distribution width Auto (Bld) [Entitic vol] Monocyte distribution width [Entitic volume] in Blood by Automated 0.00-20.00 [facility] Monocytes Auto (Bld) [#/Vol] Ordered By: Paras Herndon on 08-13-2024 Monocytes (Bld) [#/Vol] Automated blood monocyte count 0.0-0.8 [facility] Monocytes/100 WBC Auto (Bld) Ordered By: Paras Herndon on 08-13-2024 Monocytes/100 WBC (Bld) Automated monocyte % . [facility] Natriuretic peptide B [Mass/ Vol]Ordered By: Paras Herndon on 08-13-2024 Natriuretic peptide B (Bld) [Mass/Vol] BNP ser/plas 5-100 [facility] Neutrophils Auto (Bld) [#/Vo l]Ordered By: Paras Herndon on 08-13-2024 Neutrophils (Bld) [#/Vol] Neutrophils [#/volume] in Blood by Automated count 1.8-7.7 [facility] Neutrophils/100 WBC Auto (Bl d)Ordered By: Paras Herndon on 08-13-2024 Neutrophils/100 WBC (Bld) Automated neutrophil % . [facility] No Panel InformationOrdered By: Paras Herndon on 08-13-2024 Estimated GFR (CKD-EPI) > 60.0 mL/Min [facility] Creatinine Clearance (Chem 70.03 [facility] Nucleated erythrocytes [Pres ence] in Blood by Automated countOrdered By: Paras Herndon on 08-13-2024 Nucleated RBC Auto Ql (Bld) Nucleated erythrocytes [Presence] in Blood by Automated count 0-0.5 [facility] Platelet mean volume Auto (B ld) [Entitic vol]Ordered By: Paras Herndon on 08-13-2024 Platelet mean volume (Bld) [Entitic vol] Platelet mean volume [Entitic volume] in Blood by Automated count 6.3-10.7 [facility] Platelets Auto (Bld) [#/Vol] Ordered By: Paras Herndon on 08-13-2024 Platelets (Bld) [#/Vol] Platelets [#/vol ume] in Blood by Automated count 150-450 [facility] Potassium [Moles/volume] in Serum or PlasmaOrdered By: Paras Herndon on 08-13-2024 Potassium [Moles/Vol] Potassium [Moles/v olume] in Serum or Plasma 3.5-5.1 [facility] Protein [Mass/volume] in Ser um or PlasmaOrdered By: Paras Herndon on 08-13-2024 Protein [Mass/Vol] Protein [Mass/volume ] in Serum or Plasma 6.4-8.9 [facility] RBC Auto (Bld) [#/Vol]Ordere d By: Paras Herndon on 08-13-2024 RBC (Bld) [#/Vol] Erythrocytes [#/volu me] in Blood by Automated count 3.60-5.00 [facility] Respiratory (Upper) Panel, P CRon 08-13-2024 Respiratory (Upper) Panel, PCR Adenovirus Not detected Bordetella parapertussis Not detected Chlamydia pneumoniae Not detected Coronavirus 229E Not detected Coronavirus HKU1 Not detected Coronavirus NL63 Not detected Coronavirus OC43 Not detected Influenza A Not detected Influenza B Not detected Human Metapneumovirus Not detected Mycoplasma pneumoniae Not detected Parainfluenza Virus 1 Not detected Parainfluenza Virus 2 Not detected Parainfluenza Virus 3 Not detected Parainfluenza Virus 4 Not detected Bordetella pertussis-ptxP Not detected Human Rhino/Enterovirus Not detected Resp. Syncytial Virus Not detected COVID-19 Detected/Not Detected Not detected Blank Space ---- FLUA TEST INCLUDES Influenza A tests for the following clinically FLUA TEST INCLUDES significant subtypes: FLUA TEST INCLUDES - Influenza A FLUA TEST INCLUDES - Influenza A H1 FLUA TEST INCLUDES - Influenza A H1 2009 FLUA TEST INCLUDES - Influenza A H3 Blank Space ---- PERFORMED BY: [address] [address] PATHOLOGIST PANTOGRAPH II ENGRAVER SHAD LANTIGUA M.D. Normal [facility] Comment on above: Performed By: #### R EDMUND PANEL UPP., BIOFIRECOVNOTDE #### [facility] [address] [place] [address] Respiratory pathogens DNA an d RNA panel - Nasopharynx by JAMES with non-probe detectionOrdered By: Paras Herndon on 08-13-2024 Respiratory pathogens DNA and RNA panel JAMES+non-probe (Nph) Respiratory pathogens DNA and RNA panel - Nasopharynx by JAMES with non-probe detection [facility] Serum or plasma albumin/glob ulin mass ratioOrdered By: Paras Herndon on 08-13-2024 Albumin/Globulin [Mass ratio] Serum or plasma albumin/globulin mass ratio [facility] [facility] Serum or plasma anion gap de terminationOrdered By: Paras Herndon on 08-13-2024 Anion gap [Moles/Vol] Serum or plasma an ion gap determination 6.0-15.0 [facility] Sodium [Moles/volume] in Ser um or PlasmaOrdered By: Paras Herndon on 08-13-2024 Sodium [Moles/Vol] Sodium [Moles/volume ] in Serum or Plasma Low 136-145 [facility] Troponin I High Sensitivityo n 08-13-2024 Troponin I High Sensitivity 7.7 pg/mL Normal 0.0-15.0 [facility] Comment on above: Result Comment: PERF ORMED BY: [place] [address] PATHOLOGIST PANTOGRAPH II ENGRAVER SHAD LANTIGUA M.D. Performed By: #### R EDMUND PANEL UPP., BIOFIRECOVNOTDE #### [facility] [address] [place] [id number] [facility] Troponin I.cardiac [Mass/vol ume] in Serum or Plasma by Detection limit <= 0.01 ng/Ordered By: Paras Herndon on 08-13-2024 Troponin I.cardiac DL <= 0.01 ng/mL [Mass/Vol] Troponin I.cardiac [Mass/volume] in Serum or Plasma by Detection limit <= 0.01 ng/ 0.0-15.0 [facility] Urea nitrogen [Mass/volume] in Serum or PlasmaOrdered By: Paras Herndon on 08-13-2024 Urea nitrogen [Mass/Vol] Urea nitrogen [Mass/volume] in Serum or Plasma 7-25 [facility] WBC Auto (Bld) [#/Vol]Ordere d By: Paras Herndon on 08-13-2024 WBC (Bld) [#/Vol] Leukocytes [#/volume ] in Blood by Automated count 3.8-11.6 [facility] X-ray reportOrdered By: Dominik Guzman on 08-13-2024 Study report [facility] Main [place] [address] [id number] XRay Report Signed Patient: Meredith Chaidez MR#: [id number] : 1970 Acct:[id number] Age/Sex: 54 / F ADM Date: 5 Loc: ER Room: Type: [facility] ER Attending Dr: Copies to: Paras Herndon DO~ Ordering Provider: Paras Herndon DO Date of Service: 08/13/24 XR/XR chest 1V portable: Shortness of Breath/Dyspnea XR chest 1V portable 08/13/2024 7:44 PM SIGNS AND SYMPTOMS: ^Shortness of Breath/Dyspnea PROTOCOL: Frontal radiograph of the chest COMPARISON: 08/12/2024 FINDINGS: The trachea is midline. The heart and mediastinal structures are within normal limits. The lung parenchyma is clear. Degenerative changes are noted in the thoracic spine. The bony thorax is intact. Anterior fusion hardware is noted in the lower cervical spine. XR/XR chest 1V portable IMPRESSION: No acute cardiopulmonary pathology. Impression dictated by: Dominik Guzman M.D.08/13/2024 8:06 PM Dictation Location: RADIO-PC-17 Transcribed By: KAMRON 08/13/242005 Dictated By: Dominik Guzman II, MD 08/13/242004 Signed By: 08/13/242005 [facility] Work Phone: XR chest 1V portableon 08-13 XR chest 1V portable [facility] [place] [address] XRay Report Signed Patient: Meredith Chaidez MR#: [id number] 12 : 1970 Acct:[id number] Age/Sex: 54 / F ADM Date: 08/13/24 Loc: ER Room: Type: [facility] ER Attending Dr: Copies to: Paras Herndon DO Ordering Provider: Paras Herndon DO Date of Service: 08/13/24 XR/XR chest 1V portable: Shortness of Breath/Dyspnea XR chest 1V portable 08/13/2024 7:44 PM SIGNS AND SYMPTOMS: Shortness of Breath/Dyspnea PROTOCOL: Frontal radiograph of the chest COMPARISON: 08/12/2024 FINDINGS: The trachea is midline. The heart and mediastinal structures are within normal limits. The lung parenchyma is clear. Degenerative changes are noted in the thoracic spine. The bony thorax is intact. Anterior fusion hardware is noted in the lower cervical spine. XR/XR chest 1V portable IMPRESSION: No acute cardiopulmonary pathology. Impression dictated by: Dominik Guzman M.D.08/13/2024 8:06 PM Dictation Location: RADIO-PC-17 Transcribed By: KAMRON 08/13/242005 Dictated By: Dominik Guzman II, MD 08/13/242004 Signed By: 08/13/242005 Normal [facility] Alanine aminotransferase [En zymatic activity/volume] in Serum or PlasmaOrdered By: Mae Rivera on 08-12-2024 ALT [Catalytic activity/Vol] Alanine aminotransferase [Enzymatic activity/volume] in Serum or Plasma [facility] Albumin [Mass/volume] in Ser um or Plasma by Bromocresol green (BCG) dye binding methoOrdered By: Mae Rivera on 08-12-2024 Albumin BCG dye [Mass/Vol] Albumin [Mass/volume] in Serum or Plasma by Bromocresol green (BCG) dye binding metho 3.5-5.7 [facility] Alkaline phosphatase [Enzyma tic activity/volume] in Serum or PlasmaOrdered By: Mae Rivera on 08-12-2024 ALP [Catalytic activity/Vol] Alkaline phosphatase [Enzymatic activity/volume] in Serum or Plasma High 34-104 [facility] Aspartate aminotransferase [ Enzymatic activity/volume] in Serum or PlasmaOrdered By: Mae Rivera on 08-12-2024 AST [Catalytic activity/Vol] Aspartate aminotransferase [Enzymatic activity/volume] in Serum or Plasma 13-39 [facility] B-Type Natriuretic Peptideon 08-12-2024 Natriuretic peptide B (Bld) [Mass/Vol] 24.0 pg/mL Normal 5-100 [facility] Comment on above: Result Comment: PERF ORMED BY: [place] [address] PATHOLOGIST PANTOGRAPH II ENGRAVER SHAD LANTIGUA M.D. Performed By: #### H S TROP, BNP, CMP, CK #### [facility] [address] Basophils Auto (Bld) [#/Vol] Ordered By: Mae Rivera on 08-12-2024 Basophils (Bld) [#/Vol] Automated basophil count 0.0-0.2 [facility] Basophils/100 WBC Auto (Bld) Ordered By: Mae Rivera on 08-12-2024 Basophils/100 WBC (Bld) Automated basophil % . [facility] Bilirubin.total [Mass/volume ] in Serum or PlasmaOrdered By: Mae Rivera on 08-12-2024 Bilirubin [Mass/Vol] Bilirubin.total [Mass/volume] in Serum or Plasma 0.3-1.0 [facility] BioFire Not Detectedon 08-12 BioFire Not Detected Not detected Normal Not Detecte [facility] Comment on above: Result Comment: This is a duplicate RP2.1 COVID (PCR) result to be used for statistical tracking purpose only. PERFORMED BY: [facility] [address] [place] [address] PATHOLOGIST PANTOGRAPH II ENGRAVER SHAD LANTIGUA M.D. Performed By: #### B IOFIRECOVNOTDE, RESP PANEL UPP. ####[facility] [id number] COVID-19 Detected/Not Detect edOrdered By: Mae Rivera on 08-12-2024 SARS-CoV-2 (COVID-19) RNA JAMES+non-probe Ql (Nph) Not detected Not Detecte [facility] Comment on above: This is a duplicate RP2.1 COVID (PCR) result to be used for statistical tracking purpose only. Calcium [Mass/volume] in Ser um or PlasmaOrdered By: Mae Rivera on 08-12-2024 Calcium [Mass/Vol] Calcium [Mass/volume ] in Serum or Plasma 8.6-10.3 [facility] Carbon dioxide, total [Moles /volume] in Serum or PlasmaOrdered By: Mae Rivera on 08-12-2024 CO2 [Moles/Vol] Carbon dioxide, tota l [Moles/volume] in Serum or Plasma 21.0-31.0 [facility] Chloride [Moles/volume] in S uzair or PlasmaOrdered By: Mae Rivera on 08-12-2024 Chloride [Moles/Vol] Chloride [Moles/vol ume] in Serum or Plasma 98-107 [facility] Complete Blood Count Auto Di ffon 08-12-2024 Basophils (Bld) [#/Vol] 0.1 10*3/uL Normal 0.0-0.2 [facility] Comment on above: Result Comment: PERF ORMED BY: [facility] [address] [facility] [place] [address] PATHOLOGIST PANTOGRAPH II ENGRAVER SHAD LANTIGUA M.D. Performed By: #### H S TROP, BNP, CMP, CK #### [facility] [address] [place] [address] [place] Basophils/100 WBC (Bld) 1.2 % Normal . [facility] Comment on above: Performed By: #### H S TROP, BNP, CMP, CK #### [facility] [address] [place] [address] [place] Eosinophils (Bld) [#/Vol] 1.5 10*3/uL High 0.0-0.45 [facility] Comment on above: Performed By: #### H S TROP, BNP, CMP, CK #### [address] Eosinophils/100 WBC (Bld) 13.0 % Normal . [facility] Comment on above: Performed By: #### H S TROP, BNP, CMP, CK #### [address] Erythrocyte distribution width (RBC) [Ratio] 13.5 % Normal 11.9-15.3 [facility] Comment on above: Performed By: #### H S TROP, BNP, CMP, CK #### [address] Hematocrit (Bld) [Volume fraction] 48.5 % High 34.0-46.4 [facility] Comment on above: Performed By: #### H S TROP, BNP, CMP, CK #### [address] Hemoglobin (Bld) [Mass/Vol] 16.1 g/dL High 11.8-15.4 [facility] Comment on above: Performed By: #### H S TROP, BNP, CMP, CK #### [address] Lymphocytes (Bld) [#/Vol] 2.8 10*3/uL Normal 1.00-4.8 [facility] Comment on above: Performed By: #### H S TROP, BNP, CMP, CK #### [address] Lymphocytes/100 WBC (Bld) 24.3 % Normal . [facility] Comment on above: Performed By: #### H S TROP, BNP, CMP, CK #### [address] MCH (RBC) [Entitic mass] 29.6 pg Normal 24.7-34.3 [facility] Comment on above: Performed By: #### H S TROP, BNP, CMP, CK #### [address] MCV (RBC) [Entitic vol] 89.0 fL Normal 80-100 [facility] Comment on above: Performed By: #### H S TROP, BNP, CMP, CK #### [address] Mean Corpuscular HGB Conc 33.2 g/dL Normal 32.0-35.0 [facility] Comment on above: Performed By: #### H S TROP, BNP, CMP, CK #### [address] Monocytes (Bld) [#/Vol] 0.8 10*3/uL Normal 0.0-0.8 [facility] Comment on above: Performed By: #### H S TROP, BNP, CMP, CK #### [address] Monocytes/100 WBC (Bld) 16.31 % Normal 0.00-20.00 [facility] Comment on above: Performed By: #### H S TROP, BNP, CMP, CK #### [address] Monocytes/100 WBC (Bld) 6.9 % Normal . [facility] Comment on above: Performed By: #### H S TROP, BNP, CMP, CK #### [address] Neutrophils (Bld) [#/Vol] 6.2 10*3/uL Normal 1.8-7.7 [facility] Comment on above: Performed By: #### H S TROP, BNP, CMP, CK #### [address] Neutrophils/100 WBC (Bld) 54.6 % Normal . [facility] Comment on above: Performed By: #### H S TROP, BNP, CMP, CK #### [address] NRBC% 0.1 /100{WBC} Normal 0-0.5 [facility] Comment on above: Performed By: #### H S TROP, BNP, CMP, CK #### [address] Platelet mean volume (Bld) [Entitic vol] 8.1 fL Normal 6.3-10.7 [facility] Comment on above: Performed By: #### H S TROP, BNP, CMP, CK #### [address] Platelets (Bld) [#/Vol] 405 10*3/uL Normal 150-450 [facility] Comment on above: Performed By: #### H S TROP, BNP, CMP, CK #### [address] RBC (Bld) [#/Vol] 5.45 10*6/uL High 3.60-5.00 [facility] Comment on above: Performed By: #### H S TROP, BNP, CMP, CK #### [address] WBC (Bld) [#/Vol] 11.4 10*3/uL Normal 3.8-11.6 [facility] Comment on above: Performed By: #### H S TROP, BNP, CMP, CK #### [address] Comprehensive Metabolic Pane tru 08-12-2024 Albumin [Mass/Vol] 4.9 g/dL Normal 3.5-5.7 [facility] Comment on above: Performed By: #### H S TROP, BNP, CMP, CK #### [address] Albumin/Globulin [Mass ratio] 1.1 {ratio} Normal [facility] Comment on above: Performed By: #### H S TROP, BNP, CMP, CK #### [address] ALP [Catalytic activity/Vol] 105 U/L High 34-104 [facility] Comment on above: Performed By: #### H S TROP, BNP, CMP, CK #### [address] ALT [Catalytic activity/Vol] 18 U/L Normal 7-52 [facility] Comment on above: Performed By: #### H S TROP, BNP, CMP, CK #### [address] Anion gap [Moles/Vol] 10.8 mmol/L Normal 6.0-15.0 [facility] Comment on above: Performed By: #### H S TROP, BNP, CMP, CK #### [address] AST [Catalytic activity/Vol] 21 U/L Normal 13-39 [facility] Comment on above: Performed By: #### H S TROP, BNP, CMP, CK #### [address] Bilirubin [Mass/Vol] 0.4 mg/dL Normal 0.3-1.0 [facility] Comment on above: Performed By: #### H S TROP, BNP, CMP, CK #### [address] Calcium [Mass/Vol] 10.3 mg/dL Normal 8.6-10.3 [facility] Comment on above: Performed By: #### H S TROP, BNP, CMP, CK #### [place] [address] [place] Chloride [Moles/Vol] 102 mmol/L Normal 98-107 [facility] Comment on above: Performed By: #### H S TROP, BNP, CMP, CK #### [place] [address] [place] CO2 [Moles/Vol] 30.0 mmol/L Normal 21.0-31.0 [facility] Comment on above: Performed By: #### H S TROP, BNP, CMP, CK #### [address] Creatinine [Mass/Vol] 0.91 mg/dL Normal 0.60-1.20 [facility] Comment on above: Performed By: #### H S TROP, BNP, CMP, CK #### [address] Creatinine Clr Calc Pharmacy 68.92 Normal [facility] Comment on above: Result Comment: PERF ORMED BY: [place] [address] PATHOLOGIST PANTOGRAPH II ENGRAVER SHAD LANTIGUA M.D. Performed By: #### H S TROP, BNP, CMP, CK #### [address] GFR/1.73 sq M.predicted MDRD (S/P/Bld) [Vol rate/Area] mL/min/{1.73_m2} Normal [facility] Comment on above: Performed By: #### H S TROP, BNP, CMP, CK #### [place] [address] [place] Globulin (S) [Mass/Vol] 4.6 g/dL Normal [facility] Comment on above: Performed By: #### H S TROP, BNP, CMP, CK #### [address] Glucose [Mass/Vol] 124 mg/dL High 70-100 [facility] Comment on above: Result Comment: [place] Glucose Reference Range is dependent on time and content of last meal. Glucose of more than 200 mg/dL in a nonstressed, ambulatory subject supports the diagnosis of Diabetes Mellitus. ADA recommended reference range Performed By: #### H S TROP, BNP, CMP, CK #### [address] Potassium [Moles/Vol] 4.8 mmol/L Normal 3.5-5.1 [facility] Comment on above: Performed By: #### H S TROP, BNP, CMP, CK #### [address] Protein [Mass/Vol] 9.5 g/dL High 6.4-8.9 [facility] Comment on above: Performed By: #### H S TROP, BNP, CMP, CK #### [facility] [address] Sodium [Moles/Vol] 138 mmol/L Normal 136-145 [facility] Comment on above: Performed By: #### H S TROP, BNP, CMP, CK #### [address] Urea nitrogen [Mass/Vol] 9 mg/dL Normal 7-25 [facility] Comment on above: Performed By: #### H S TROP, BNP, CMP, CK #### [place] [id number] [facility] Creatine Kinaseon 08-12-2024 CK [Catalytic activity/Vol] 232 U/L High [address] [facility] Comment on above: Performed By: #### H S TROP, BNP, CMP, CK #### [address] Creatine kinase [Enzymatic a ctivity/volume] in Serum or PlasmaOrdered By: Mae Rivera on 08-12-2024 CK [Catalytic activity/Vol] Creatine kinase [Enzymatic activity/volume] in Serum or Plasma High 30-223 [facility] Creatinine [Mass/volume] in Serum or PlasmaOrdered By: Mae Rivera on 08-12-2024 Creatinine [Mass/Vol] Creatinine [Mass/v olume] in Serum or Plasma 0.60-1.20 [facility] ECG 12 lead ECGon 08-12-2024 ECG 12 lead ECG [facility] [address] Electrocardiograph Report Signed Patient: Meredith Chaidez MR#: [id number] 12 : 1970 Acct:[id number] Age/Sex: 54 / F ADM Date: 08/13/24 Loc: Room: [address] [place] [address] Type: DIS IN Attending Dr: Keith Forrester MD Ordering Provider: Mae Rivera Jr, MD Date of Service: 08/12/2410/05/2223 ECG/ECG 12 lead ECG: Shortness of Breath/Dyspnea Copies to: Test Reason : Blood Pressure : 232/127 mmHG Vent. Rate : 96 BPM Atrial Rate : 96 BPM P-R Int : 196 ms QRS Dur : 90 ms QT Int : 368 ms P-R-T Axes : 70 36 69 degrees QTcB Int : 464 ms Normal sinus rhythm Normal ECG When compared with ECG of 21-Jul-2024 15:41, QRS axis shifted right Confirmed by MAE RIVERA MD ([id number]) on 08/14/2024 5:11:14 AM Referred By: Electronically Signed By: MAE RIVERA MD Transcribed By: MUS Signed By Mae Rivera Jr, MD 0511 Normal [facility] Eosinophils Auto (Bld) [#/Vo l]Ordered By: Mae Rivera on 08-12-2024 Eosinophils (Bld) [#/Vol] Automated eosinophil count High 0.0-0.45 [facility] Eosinophils/100 WBC Auto (Bl d)Ordered By: Mae Rivera on 08-12-2024 Eosinophils/100 WBC (Bld) Automated eosinophil % . [facility] Erythrocyte distribution wid th Auto (RBC) [Ratio]Ordered By: Mae Rivera on 08-12-2024 Erythrocyte distribution width (RBC) [Ratio] Erythrocyte distribution width [Ratio] by Automated count 11.9-15.3 [facility] Globulin Calc (S) [Mass/Vol] Ordered By: Mae Rivera on 08-12-2024 Globulin (S) [Mass/Vol] Serum globulin measurement by calculation (mass/volume) [facility] Glucose [Mass/volume] in Ser um or PlasmaOrdered By: Mae Rivera on 08-12-2024 Glucose [Mass/Vol] Glucose [Mass/volume ] in Serum or Plasma High 70-100 [facility] Comment on above: ADA recommended refe rence rangeRandom Glucose Reference Range is dependent on time and content of last meal. Glucose of more than 200 mg/dL in a nonstressed, ambulatory subject supports the diagnosis of Diabetes Mellitus. Hematocrit Auto (Bld) [Volum e fraction]Ordered By: Mae Rivera on 08-12-2024 Hematocrit (Bld) [Volume fraction] Hematocrit [Volume Fraction] of Blood by Automated count High 34.0-46.4 [facility] Hemoglobin [Mass/volume] in BloodOrdered By: Mae Rivera on 08-12-2024 Hemoglobin (Bld) [Mass/Vol] Hemoglobin [Mass/volume] in Blood High 11.8-15.4 [facility] INR in Platelet poor plasma by Coagulation assayOrdered By: Mae Rivera on 08-12-2024 INR Coag (PPP) [Relative time] INR in Platelet poor plasma by Coagulation assay [facility] Comment on above: INR Therapeutic Rang e A) Pre- and Peroperative OAT started two weeks before surgery. NOT HIP SURGERY: 1.5 - 2.5 HIP SURGERY: 2 - 3B) Primary and secondary prevention of venous THROMBOSIS: 2 - 3C) Active venous thrombosis, pulmonary embolismand prevention of recurrent venous thrombosis: 2 - 3D) Prevention of arterial thromboembolismincluding patients with mechanical heart valves: 3 - 4.5 Leukocytes [#/volume] correc lucas for nucleated erythrocytes in Blood by Automated counOrdered By: Mae Rivera on 08-12-2024 WBC corrected for nucl RBC Auto (Bld) [#/Vol] Leukocytes [#/volume] corrected for nucleated erythrocytes in Blood by Automated coun 3.8-11.6 [facility] Lymphocytes Auto (Bld) [#/Vo l]Ordered By: Mae Rivera on 08-12-2024 Lymphocytes (Bld) [#/Vol] Lymphocytes [#/volume] in Blood by Automated count 1.00-4.8 [facility] Lymphocytes/100 WBC Auto (Bl d)Ordered By: Mae Rivera on 08-12-2024 Lymphocytes/100 WBC (Bld) Lymphocytes/100 leukocytes in Blood by Automated count . [facility] MCH Auto (RBC) [Entitic mass ]Ordered By: Mae Rivera on 08-12-2024 MCH (RBC) [Entitic mass] MCH [Entitic mass] by Automated count 24.7-34.3 [facility] MCHC Auto (RBC) [Mass/Vol]Or dered By: Mae Rivera on 08-12-2024 MCHC (RBC) [Mass/Vol] MCHC [Mass/volume] by Automated count 32.0-35.0 [facility] MCV Auto (RBC) [Entitic vol] Ordered By: Mae Rivera on 08-12-2024 MCV (RBC) [Entitic vol] MCV [Entitic vol ume] by Automated count 80-100 [facility] Monocyte distribution width [Entitic volume] in Blood by AutomatedOrdered By: Mae Rivera on 08-12-2024 Monocyte distribution width Auto (Bld) [Entitic vol] Monocyte distribution width [Entitic volume] in Blood by Automated 0.00-20.00 [facility] Monocytes Auto (Bld) [#/Vol] Ordered By: Mae Rivera on 08-12-2024 Monocytes (Bld) [#/Vol] Automated blood monocyte count 0.0-0.8 [facility] Monocytes/100 WBC Auto (Bld) Ordered By: Mae Rivera on 08-12-2024 Monocytes/100 WBC (Bld) Automated monocyte % . [facility] Natriuretic peptide B [Mass/ Vol]Ordered By: Mae Rivera on 08-12-2024 Natriuretic peptide B (Bld) [Mass/Vol] BNP ser/plas 5-100 [facility] Neutrophils Auto (Bld) [#/Vo l]Ordered By: Mae Rivera on 08-12-2024 Neutrophils (Bld) [#/Vol] Neutrophils [#/volume] in Blood by Automated count 1.8-7.7 [facility] Neutrophils/100 WBC Auto (Bl d)Ordered By: Mae Rivera on 08-12-2024 Neutrophils/100 WBC (Bld) Automated neutrophil % . [facility] No Panel InformationOrdered By: Mae Rivera on 08-12-2024 Estimated GFR (CKD-EPI) > 60.0 mL/Min [facility] Creatinine Clearance (Chem 68.92 [facility] Nucleated erythrocytes [Pres ence] in Blood by Automated countOrdered By: Mae Rivera on 08-12-2024 Nucleated RBC Auto Ql (Bld) Nucleated erythrocytes [Presence] in Blood by Automated count 0-0.5 [facility] Partial Thromboplastin Timeo n 08-12-2024 aPTT Coag (Bld) [Time] 28.7 s Normal 25.1-36.5 [facility] Comment on above: Result Comment: A he matocrit value greater than 55% may lead to inaccurate results in coagulation testing. Patients having hematocrit values >55% require a special collection tube for coagulation studies. Please contact the laboratory at [phone] for redraw instructions. PERFORMED BY: [facility] [place] [address] PATHOLOGIST PANTOGRAPH II ENGRAVER SHAD LANTIGUA M.D. Performed By: #### H S TROP, BNP, CMP, CK #### [facility] [address] Platelet mean volume Auto (B ld) [Entitic vol]Ordered By: Mae Rivera on 08-12-2024 Platelet mean volume (Bld) [Entitic vol] Platelet mean volume [Entitic volume] in Blood by Automated count 6.3-10.7 [facility] Platelets Auto (Bld) [#/Vol] Ordered By: Mae Rivera on 08-12-2024 Platelets (Bld) [#/Vol] Platelets [#/vol ume] in Blood by Automated count 150-450 [facility] Potassium [Moles/volume] in Serum or PlasmaOrdered By: Mae Rivera on 08-12-2024 Potassium [Moles/Vol] Potassium [Moles/v olume] in Serum or Plasma 3.5-5.1 [facility] Protein [Mass/volume] in Ser um or PlasmaOrdered By: Mae Rivera on 08-12-2024 Protein [Mass/Vol] Protein [Mass/volume ] in Serum or Plasma High 6.4-8.9 [facility] Prothrombin Time INRon 08-12 INR Coag (PPP) [Relative time] 1.1 {INR} Normal [facility] Comment on above: Result Comment: INR Therapeutic Range A) Pre- and Peroperative OAT started two weeks before surgery. NOT HIP SURGERY: 1.5 - 2.5 HIP SURGERY: 2 - 3 B) Primary and secondary prevention of venous THROMBOSIS: 2 - 3 C) Active venous thrombosis, pulmonary embolism and prevention of recurrent venous thrombosis: 2 - 3 D) Prevention of arterial thromboembolism including patients with mechanical heart valves: 3 - 4.5 Performed By: #### H S TROP, BNP, CMP, CK #### [facility] [address] [place] [id number] [facility] PT Coag (PPP) [Time] 12.2 s Normal 9.0-12.9 [facility] Comment on above: Result Comment: A he matocrit value greater than 55% may lead to inaccurate results in coagulation testing. Patients having hematocrit values >55% require a special collection tube for coagulation studies. Please contact the laboratory at [phone] for redraw instructions. Performed By: #### H S TROP, BNP, CMP, CK #### [facility] [address] Prothrombin time (PT)Ordered By: Mae Rivera on 08-12-2024 PT Coag (PPP) [Time] Prothrombin time (PT) 9.0- 12.9 [facility] Comment on above: A hematocrit value g reater than 55% may lead to inaccurate results in coagulation testing. Patients having hematocrit values >55% require a special collection tube for coagulation studies. Please contact the laboratory at [phone] for redraw instructions. RBC Auto (Bld) [#/Vol]Ordere d By: Mae Rivera on 08-12-2024 RBC (Bld) [#/Vol] Erythrocytes [#/volu me] in Blood by Automated count High 3.60-5.00 [facility] Respiratory (Upper) Panel, P CRon 08-12-2024 Respiratory (Upper) Panel, PCR Adenovirus Not detected Bordetella parapertussis Not detected Chlamydia pneumoniae Not detected Coronavirus 229E Not detected Coronavirus HKU1 Not detected Coronavirus NL63 Not detected Coronavirus OC43 Not detected Influenza A Not detected Influenza B Not detected Human Metapneumovirus Not detected Mycoplasma pneumoniae Not detected Parainfluenza Virus 1 Not detected Parainfluenza Virus 2 Not detected Parainfluenza Virus 3 Not detected Parainfluenza Virus 4 Not detected Bordetella pertussis-ptxP Not detected Human Rhino/Enterovirus Not detected Resp. Syncytial Virus Not detected COVID-19 Detected/Not Detected Not detected Blank Space ---- FLUA TEST INCLUDES Influenza A tests for the following clinically FLUA TEST INCLUDES significant subtypes: FLUA TEST INCLUDES - Influenza A FLUA TEST INCLUDES - Influenza A H1 FLUA TEST INCLUDES - Influenza A H1 2009 FLUA TEST INCLUDES - Influenza A H3 Blank Space ---- PERFORMED BY: [facility] [address] [place] [address] PATHOLOGIST PANTOGRAPH II ENGRAVER SHAD LANTIGUA M.D. Normal [facility] Comment on above: Performed By: #### B IOFIRECOVNOTDE, RESP PANEL UPP. ####[facility] [id number] Respiratory pathogens DNA an d RNA panel - Nasopharynx by JAMES with non-probe detectionOrdered By: Mae Rivera on 08-12-2024 Respiratory pathogens DNA and RNA panel JAMES+non-probe (Nph) Respiratory pathogens DNA and RNA panel - Nasopharynx by JAMES with non-probe detection [facility] Serum or plasma albumin/glob ulin mass ratioOrdered By: Mae Rivera on 08-12-2024 Albumin/Globulin [Mass ratio] Serum or plasma albumin/globulin mass ratio [facility] Serum or plasma anion gap de terminationOrdered By: Mae Rivera on 08-12-2024 Anion gap [Moles/Vol] Serum or plasma an ion gap determination 6.0-15.0 [facility] Sodium [Moles/volume] in Ser um or PlasmaOrdered By: Mae Rivera on 08-12-2024 Sodium [Moles/Vol] Sodium [Moles/volume ] in Serum or Plasma 136-145 [facility] Troponin I High Sensitivityo n 08-12-2024 Troponin I High Sensitivity 5.0 pg/mL Normal 0.0-15.0 [facility] Comment on above: Result Comment: PERF ORMED BY: [facility] [address] [place] [address] PATHOLOGIST PANTOGRAPH II ENGRAVER SHAD LANTIGUA M.D. Performed By: #### H S TROP, BNP, CMP, CK #### [facility] [address] [place] [id number] [facility] Troponin I.cardiac [Mass/vol ume] in Serum or Plasma by Detection limit <= 0.01 ng/Ordered By: Mae Rivera on 08-12-2024 Troponin I.cardiac DL <= 0.01 ng/mL [Mass/Vol] Troponin I.cardiac [Mass/volume] in Serum or Plasma by Detection limit <= 0.01 ng/ 0.0-15.0 [facility] Urea nitrogen [Mass/volume] in Serum or PlasmaOrdered By: Mae Rivera on 08-12-2024 Urea nitrogen [Mass/Vol] Urea nitrogen [Mass/volume] in Serum or Plasma 7-25 [facility] WBC Auto (Bld) [#/Vol]Ordere d By: Mae Rivera on 08-12-2024 WBC (Bld) [#/Vol] Leukocytes [#/volume ] in Blood by Automated count 3.8-11.6 [facility] X-ray reportOrdered By: Dominik Guzman on 08-12-2024 Study report [facility] [place] [address] XRay Report Signed Patient: Meredith Chaidez MR#: [id number] : 1970 Acct:[id number] Age/Sex: 54 / F ADM Date: 5 Loc: ER Room: Type: [facility] ER Attending Dr: Copies to: Mae Rivera Jr, MD~ Ordering Provider: Mae Rivera Jr, MD Date of Service: 08/12/24 XR/XR chest 1V portable: Shortness of Breath/Dyspnea XR chest 1V portable 08/12/2024 10:28 PM SIGNS AND SYMPTOMS: ^Shortness of Breath/Dyspnea PROTOCOL: Frontal radiograph of the chest COMPARISON: 07/20/2024 FINDINGS: The trachea is midline. There is cardiomegaly. There is interstitial prominence which appears to be chronic. The bony thorax is intact. Degenerative changes are noted in the thoracic spine. There is anterior fusion of the lower cervical spine. XR/XR chest 1V portable IMPRESSION: Cardiomegaly is noted along with chronic interstitial prominence. Impression dictated by: Dominik Guzman M.D.08/12/2024 11:16 PM Dictation Location: [place] [address] Transcribed By: KAMRON 08/12/24 6024 Dictated By: Dominik Guzman II, MD 08/12/242313 Signed By: 08/12/242315 [facility] Work Phone: XR chest 1V portableon 08-12 XR chest 1V portable [facility] [address] [place] [address] [place] [address] XRay Report Signed Patient: Merdeith Chaidez MR#: [id number] : 1970 Acct:[id number] Age/Sex: 54 / F ADM Date: 08/12/24 Loc: ER Room: Type: [facility] ER Attending Dr: Copies to: Mae Rivera Jr, MD Ordering Provider: Mae Rivera Jr, MD Date of Service: 08/12/24 XR/XR chest 1V portable: Shortness of Breath/Dyspnea XR chest 1V portable 08/12/2024 10:28 PM SIGNS AND SYMPTOMS: Shortness of Breath/Dyspnea PROTOCOL: Frontal radiograph of the chest COMPARISON: 07/20/2024 FINDINGS: The trachea is midline. There is cardiomegaly. There is interstitial prominence which appears to be chronic. The bony thorax is intact. Degenerative changes are noted in the thoracic spine. There is anterior fusion of the lower cervical spine. XR/XR chest 1V portable IMPRESSION: Cardiomegaly is noted along with chronic interstitial prominence. Impression dictated by: Dominik Guzman M.D.08/12/2024 11:16 PM Dictation Location: [place] [address] Transcribed By: [facility] 08/12/242315 Dictated By: Dominik Guzman II, MD 08/12/242313 Signed By: 08/12/242315 Normal [facility] aPTT in Platelet poor plasma by Coagulation assayOrdered By: Mae Rivera on 08-12-2024 aPTT Coag (PPP) [Time] Activated partial thromboplastin time (aPTT) in platelet poor plasma by coagulation a 25.1-36.5 [facility] Comment on above: A hematocrit value g reater than 55% may lead to inaccurate results in coagulation testing. Patients having hematocrit values >55% require a special collection tube for coagulation studies. Please contact the laboratory at [phone] for redraw instructions. Leatha 07-28-2024 CNPN Normal [facility] CASE MANAGEMon 07-25-2024 CASE MANAGEM Normal [facility] CBC W Auto Differential pane l (Bld)on 07-25-2024 Basophils (Bld) [#/Vol] 0.07 10*3/uL Normal <0.11 [facility] Comment on above: Order Comment: Speci men Type: BLOOD SPECIMENOrdering Facility: [facility] Address: [address] [place] [address] Performed By: #### 5 7021-8 ####[facility]CL[facility] [id number] [place] [address] [place] Basophils/100 WBC (Bld) 1.0 % Normal [facility] Comment on above: Order Comment: Speci men Type: BLOOD SPECIMENOrdering Facility: [facility] Address: [address] [place] [address] Performed By: #### 5 7021-8 ####[facility]CL[facility] [id number] [place] [address] [place] Differential cell count method Nom (Bld) Auto Normal [facility] Comment on above: Order Comment: Speci men Type: BLOOD SPECIMENOrdering Facility: [facility] Address: [address] [place] [address] Performed By: #### 5 7021-8 ####[facility]CL[facility] [id number] [place] [address] [place] Eosinophils (Bld) [#/Vol] 0.52 10*3/uL High <0.46 [facility] Comment on above: Order Comment: Speci men Type: BLOOD SPECIMENOrdering Facility: [facility] Address: [address] [place] [address] Performed By: #### 5 7021-8 ####[facility] [id number] [place] [address] [place] Eosinophils/100 WBC (Bld) 7.7 % Normal [facility] Comment on above: Order Comment: Speci men Type: BLOOD SPECIMENOrdering Facility: [facility] Address: [address] [place] [address] Performed By: #### 5 7021-8 ####[facility]IA [id number] [place] [address] [place] Erythrocyte distribution width (RBC) [Ratio] 12.5 % Normal 11.5-15.0 [facility] Comment on above: Order Comment: Speci men Type: BLOOD SPECIMENOrdering Facility: [facility] Address: [address] [place] [address] Performed By: #### 5 7021-8 ####[facility] [id number] [place] [address] [place] Hematocrit (Bld) [Volume fraction] 48.2 % High 36.0-46.0 [facility] Comment on above: Order Comment: Speci men Type: BLOOD SPECIMENOrdering Facility: [facility] Address: [address] [place] [address] Performed By: #### 5 7021-8 ####[facility]IA [id number] [place] [address] [place] Hemoglobin (Bld) [Mass/Vol] 16.0 g/dL High 11.5-15.5 [facility] Comment on above: Order Comment: Speci men Type: BLOOD SPECIMENOrdering Facility: [facility] Address: [address] [place] [address] Performed By: #### 5 7021-8 ####[facility] [id number] [place] [address] [place] Immature granulocytes (Bld) [#/Vol] 10*3/uL Normal <0.10 [facility] Comment on above: Order Comment: Speci men Type: BLOOD SPECIMENOrdering Facility: [facility] Address: [address] [place] [address] Performed By: #### 5 7021-8 ####[facility] [id number] [place] [address] [place] Immature granulocytes/100 WBC (Bld) 0.1 % Normal [facility] Comment on above: Order Comment: Speci men Type: BLOOD SPECIMENOrdering Facility: [facility] Address: [address] [place] [address] Performed By: #### 5 7021-8 ####[facility] LABIA [id number] [place] [address] [place] Lymphocytes (Bld) [#/Vol] 2.16 10*3/uL Normal 1.00-4.00 [facility] Comment on above: Order Comment: Speci men Type: BLOOD SPECIMENOrdering Facility: [facility] Address: [address] [place] [address] Performed By: #### 5 7021-8 ####[facility]IA [id number] [place] [address] [place] Lymphocytes/100 WBC (Bld) 32.0 % Normal [facility] Comment on above: Order Comment: Speci men Type: BLOOD SPECIMENOrdering Facility: [facility] Address: [address] [place] [address] Performed By: #### 5 7021-8 ####[facility]IA [id number] [place] [address] [place] MCH (RBC) [Entitic mass] 29.4 pg Normal 26.0-34.0 [facility] Comment on above: Order Comment: Speci men Type: BLOOD SPECIMENOrdering Facility: [facility] Address: [address] [place] [address] Performed By: #### 5 7021-8 ####[facility] [id number] [place] [address] [place] MCHC (RBC) [Mass/Vol] 33.2 g/dL Normal 30.5-36.0 [facility] Comment on above: Order Comment: Speci men Type: BLOOD SPECIMENOrdering Facility: [facility] Address: [address] [place] [address] Performed By: #### 5 7021-8 ####[facility] [id number] [place] [address] [place] MCV (RBC) [Entitic vol] 88.6 fL Normal 80.0-100.0 [facility] Comment on above: Order Comment: Speci men Type: BLOOD SPECIMENOrdering Facility: [facility] Address: [address] [place] [address] Performed By: #### 5 7021-8 ####[facility]IA [id number] [place] [address] [place] Monocytes (Bld) [#/Vol] 0.83 10*3/uL Normal <0.87 [facility] Comment on above: Order Comment: Speci men Type: BLOOD SPECIMENOrdering Facility: [facility] Address: [address] [place] [address] Performed By: #### 5 7021-8 ####[facility] [id number] [place] [address] [place] Monocytes/100 WBC (Bld) 12.3 % Normal [facility] Comment on above: Order Comment: Speci men Type: BLOOD SPECIMENOrdering Facility: [facility] Address: [address] [place] [address] Performed By: #### 5 7021-8 ####[facility]IA [id number] [place] [address] [place] Neutrophils (Bld) [#/Vol] 3.15 10*3/uL Normal 1.45-7.50 [facility] Comment on above: Order Comment: Speci men Type: BLOOD SPECIMENOrdering Facility: [facility] Address: [address] [place] [address] Performed By: #### 5 7021-8 ####[facility]CL[facility] [id number] [place] [address] [place] Neutrophils/100 WBC (Bld) 46.9 % Normal [facility] Comment on above: Order Comment: Speci men Type: BLOOD SPECIMENOrdering Facility: [facility] Address: [address] [place] [address] Performed By: #### 5 7021-8 ####[facility] [id number] [place] [address] [place] Nucleated RBC (Bld) [#/Vol] 10*3/uL Normal <0.01 [facility] Comment on above: Order Comment: Speci men Type: BLOOD SPECIMENOrdering Facility: [facility] Address: [address] [place] [address] Performed By: #### 5 7021-8 ####[facility] [id number] [place] [address] [place] Nucleated RBC/100 WBC (Bld) [Ratio] 0.0 /100 WBC Normal [facility] Comment on above: Order Comment: Speci men Type: BLOOD SPECIMENOrdering Facility: [facility] Address: [address] [place] [address] Performed By: #### 5 7021-8 ####[facility] [id number] [place] [address] [place] Platelet mean volume (Bld) [Entitic vol] 11.3 fL Normal 9.0-12.7 [facility] Comment on above: Order Comment: Speci men Type: BLOOD SPECIMENOrdering Facility: [facility] Address: [address] [place] [address] Performed By: #### 5 7021-8 ####[facility] [id number] [place] [address] [place] Platelets (Bld) [#/Vol] 195 10*3/uL Normal 150-400 [facility] Comment on above: Order Comment: Speci men Type: BLOOD SPECIMENOrdering Facility: [facility] Address: [address] [place] [address] Result Comment: No c lot detected. Performed By: #### 5 7021-8 ####[facility]CL[facility] [id number] [place] [address] [place] RBC (Bld) [#/Vol] 5.44 10*6/uL High 3.90-5.20 [facility] Comment on above: Order Comment: Speci men Type: BLOOD SPECIMENOrdering Facility: [facility] Address: [address] [place] [address] Performed By: #### 5 7021-8 ####[facility] [id number] [place] [address] [place] WBC (Bld) [#/Vol] 6.74 10*3/uL Normal 3.70-11.00 [facility] Comment on above: Order Comment: Speci men Type: BLOOD SPECIMENOrdering Facility: [facility] Address: [address] [place] [address] Performed By: #### 5 7021-8 ####[facility]IA [id number] [place] [address] [place] CNDSon 07-25-2024 CNDS Normal [facility] Comprehensive metabolic 2000 panelon 07-25-2024 Albumin [Mass/Vol] 4.4 g/dL Normal 3.9-4.9 [facility] Comment on above: Order Comment: Speci men Type: BLOOD SPECIMENOrdering Facility: [facility] Address: [address] [place] [address] Performed By: #### 2 4323-8 ####[facility]CL[facility] [id number] [address] [id number] [address] [place] ALP [Catalytic activity/Vol] 99 U/L Normal 34-123 [facility] Comment on above: Order Comment: Speci men Type: BLOOD SPECIMENOrdering Facility: [facility] Address: [address] [place] [address] Performed By: #### 2 4323-8 ####[facility]CL[facility] [id number] [place] [address] [place] ALT [Catalytic activity/Vol] 14 U/L Normal 7-38 [facility] Comment on above: Order Comment: Speci men Type: BLOOD SPECIMENOrdering Facility: [facility] Address: [address] [place] [address] Performed By: #### 2 4323-8 ####[facility]CL[facility] [id number] [place] [address] [place] Anion gap [Moles/Vol] 17 mmol/L High 8-15 [facility] Comment on above: Order Comment: Speci men Type: BLOOD SPECIMENOrdering Facility: [facility] Address: [address] [place] [address] Performed By: #### 2 4323-8 ####[facility]CL[facility] [id number] [place] [address] [place] AST [Catalytic activity/Vol] 19 U/L Normal 13-35 [facility] Comment on above: Order Comment: Speci men Type: BLOOD SPECIMENOrdering Facility: [facility] Address: [address] [place] [address] Performed By: #### 2 4323-8 ####[facility] [id number] [place] [address] [place] Bilirubin [Mass/Vol] 0.5 mg/dL Normal 0.2-1.3 [facility] Comment on above: Order Comment: Speci men Type: BLOOD SPECIMENOrdering Facility: [facility] Address: [address] [place] [address] Performed By: #### 2 4323-8 ####[facility]CL[facility] [id number] [facility] [place] [address] [place] Calcium [Mass/Vol] 10.3 mg/dL High 8.5-10.2 [facility] Comment on above: Order Comment: Speci men Type: BLOOD SPECIMENOrdering Facility: [facility] Address: [address] [place] [address] Performed By: #### 2 4323-8 ####[facility] [id number] [place] [address] [place] Chloride [Moles/Vol] 96 mmol/L Low 98-107 [facility] Comment on above: Order Comment: Speci men Type: BLOOD SPECIMENOrdering Facility: [facility] Address: [address] [place] [address] Performed By: #### 2 4323-8 ####[facility] [id number] [place] [address] [place] CO2 [Moles/Vol] 23 mmol/L Normal 22-30 [facility] Comment on above: Order Comment: Speci men Type: BLOOD SPECIMENOrdering Facility: [facility] Address: [address] [place] [address] Performed By: #### 2 4323-8 ####[facility]CL[facility] [id number] [place] [address] [place] Creatinine [Mass/Vol] 0.94 mg/dL Normal 0.58-0.96 [facility] Comment on above: Order Comment: Speci men Type: BLOOD SPECIMENOrdering Facility: [facility] Address: [address] [place] [address] Performed By: #### 2 4323-8 ####[facility] [id number] [place] [address] [place] Creatinine and Glomerular filtration rate.predicted panel (S/P/Bld) 72 mL/min/1.73m??? Normal >=60 [facility] Comment on above: Order Comment: Jet otto Type: BLOOD SPECIMENOrdering Facility: [facility] Address: [address] [place] [address] Result Comment: Anna mated Glomerular Filtration Rate (eGFR) is calculated using the 2020 CKD-EPI creatinine equation. This equation utilizes serum creatinine, sex, and age as parameters. The creatinine assay has traceable calibration to isotope dilution-mass spectrometry. Refer to KDIGO guidelines for clinical interpretation. In patients with unstable renal function, e.g. those with acute kidney injury, the eGFR may not accurately reflect actual GFR. Performed By: #### 2 4323-8 ####[facility] LABIA [id number] [place] [address] [place] Glucose [Mass/Vol] 84 mg/dL Normal 74-99 [facility] Comment on above: Order Comment: Jet otto Type: BLOOD SPECIMENOrdering Facility: [facility] Address: [address] [place] [address] Result Comment: The [place] [employer] (ADA) provides guidance for cutoff values for fasting glucose and random glucose. The ADA defines fasting as no caloric intake for at least 8 hours. Fasting plasma glucose results between 100 to 125 mg/dL indicate increased risk for diabetes (prediabetes).Fasting plasma glucose results greater than or equal to 126 mg/dL meet the criteria for diagnosis of diabetes. In the absence of unequivocal hyperglycemia, results should be confirmed by repeat testing. In a patient with classic symptoms of hyperglycemia or hyperglycemic crisis, random plasma glucose results greater than or equal to 200 mg/dL meet the criteria for diagnosis of diabetes.Reference: Standards of Medical Care in Diabetes 2016, [place] [employer]. Diabetes Care. 2016.39(Suppl 1). Performed By: #### 2 4323-8 ####[facility] [id number] [place] [address] [place] Potassium [Moles/Vol] 3.8 mmol/L Normal 3.7-5.1 [facility] Comment on above: Order Comment: Jet otto Type: BLOOD SPECIMENOrdering Facility: [facility] Address: [address] [place] [address] Performed By: #### 2 4323-8 ####[facility] [id number] [place] [address] [place] Protein [Mass/Vol] 8.2 g/dL High 6.3-8.0 [facility] Comment on above: Order Comment: Speci men Type: BLOOD SPECIMENOrdering Facility: [facility] Address: [address] [place] [address] Performed By: #### 2 4323-8 ####[facility]CL[facility] [id number] [place] [address] [place] Sodium [Moles/Vol] 136 mmol/L Normal 136-144 [facility] Comment on above: Order Comment: Speci men Type: BLOOD SPECIMENOrdering Facility: [facility] Address: [address] [place] [address] Performed By: #### 2 4323-8 ####[facility] [id number] [place] [address] [place] Urea nitrogen [Mass/Vol] 15 mg/dL Normal 7-21 [facility] Comment on above: Order Comment: Speci men Type: BLOOD SPECIMENOrdering Facility: [facility] Address: [address] [place] [address] Performed By: #### 2 4323-8 ####[facility] LAB[facility] [id number] [place] [id number] [place] THERAPY NTon 07-25-2024 THERAPY NT Normal [facility] CBC W Auto Differential pane l (Bld)on 07-24-2024 Basophils (Bld) [#/Vol] 0.07 10*3/uL Normal <0.11 [facility] Comment on above: Order Comment: Speci men Type: BLOOD SPECIMENOrdering Facility: [facility] Address: [address] [place] [address] Performed By: #### 5 7021-8 ####[facility] [id number] [place] [address] [place] Basophils/100 WBC (Bld) 1.1 % Normal [facility] Comment on above: Order Comment: Speci men Type: BLOOD SPECIMENOrdering Facility: [facility] Address: [address] [place] [address] Performed By: #### 5 7021-8 ####[facility] [id number] [place] [address] [place] Differential cell count method Nom (Bld) Auto Normal [facility] Comment on above: Order Comment: Speci men Type: BLOOD SPECIMENOrdering Facility: [facility] Address: [address] [place] [address] Performed By: #### 5 7021-8 ####[facility] [id number] [place] [address] [place] Eosinophils (Bld) [#/Vol] 0.69 10*3/uL High <0.46 [facility] Comment on above: Order Comment: Speci men Type: BLOOD SPECIMENOrdering Facility: [facility] Address: [address] [place] [address] Performed By: #### 5 7021-8 ####[facility] [id number] [place] [address] [place] Eosinophils/100 WBC (Bld) 10.8 % Normal [facility] Comment on above: Order Comment: Speci men Type: BLOOD SPECIMENOrdering Facility: [facility] Address: [address] [place] [address] Performed By: #### 5 7021-8 ####[facility] [id number] [place] [address] [place] Erythrocyte distribution width (RBC) [Ratio] 12.5 % Normal 11.5-15.0 [facility] Comment on above: Order Comment: Speci men Type: BLOOD SPECIMENOrdering Facility: [facility] Address: [address] [place] [address] Performed By: #### 5 7021-8 ####[facility] [id number] [place] [address] [place] Hematocrit (Bld) [Volume fraction] 43.4 % Normal 36.0-46.0 [facility] Comment on above: Order Comment: Speci men Type: BLOOD SPECIMENOrdering Facility: [facility] Address: [address] [place] [address] Performed By: #### 5 7021-8 ####[facility] [id number] [place] [address] [place] Hemoglobin (Bld) [Mass/Vol] 14.2 g/dL Normal 11.5-15.5 [facility] Comment on above: Order Comment: Speci men Type: BLOOD SPECIMENOrdering Facility: [facility] Address: [address] [place] [address] Performed By: #### 5 7021-8 ####[facility] [id number] [place] [address] [place] Immature granulocytes (Bld) [#/Vol] 10*3/uL Normal <0.10 [facility] Comment on above: Order Comment: Speci men Type: BLOOD SPECIMENOrdering Facility: [facility] Address: [address] [place] [address] Performed By: #### 5 7021-8 ####[facility] [id number] [place] [address] [place] Immature granulocytes/100 WBC (Bld) 0.3 % Normal [facility] Comment on above: Order Comment: Speci men Type: BLOOD SPECIMENOrdering Facility: [facility] Address: [address] [place] [address] Performed By: #### 5 7021-8 ####[facility] [id number] [place] [address] [place] Lymphocytes (Bld) [#/Vol] 2.21 10*3/uL Normal 1.00-4.00 [facility] Comment on above: Order Comment: Speci men Type: BLOOD SPECIMENOrdering Facility: [facility] Address: [address] [place] [address] Performed By: #### 5 7021-8 ####[facility] [id number] [place] [address] [place] Lymphocytes/100 WBC (Bld) 34.6 % Normal [facility] Comment on above: Order Comment: Speci men Type: BLOOD SPECIMENOrdering Facility: [facility] Address: [address] [place] [address] Performed By: #### 5 7021-8 ####[facility] [id number] [place] [address] [place] MCH (RBC) [Entitic mass] 29.5 pg Normal 26.0-34.0 [facility] Comment on above: Order Comment: Speci men Type: BLOOD SPECIMENOrdering Facility: [facility] Address: [address] [place] [address] Performed By: #### 5 7021-8 ####[facility] [id number] [place] [address] [place] MCHC (RBC) [Mass/Vol] 32.7 g/dL Normal 30.5-36.0 [facility] Comment on above: Order Comment: Speci men Type: BLOOD SPECIMENOrdering Facility: [facility] Address: [address] [place] [address] Performed By: #### 5 7021-8 ####[facility] [id number] [place] [address] [place] MCV (RBC) [Entitic vol] 90.0 fL Normal 80.0-100.0 [facility] Comment on above: Order Comment: Speci men Type: BLOOD SPECIMENOrdering Facility: [facility] Address: [address] [place] [address] Performed By: #### 5 7021-8 ####[facility] [id number] [place] [address] [place] Monocytes (Bld) [#/Vol] 0.72 10*3/uL Normal <0.87 [facility] Comment on above: Order Comment: Speci men Type: BLOOD SPECIMENOrdering Facility: [facility] Address: [address] [place] [address] Performed By: #### 5 7021-8 ####[facility] [id number] [place] [address] [place] Monocytes/100 WBC (Bld) 11.3 % Normal [facility] Comment on above: Order Comment: Speci men Type: BLOOD SPECIMENOrdering Facility: [facility] Address: [address] [place] [address] Performed By: #### 5 7021-8 ####[facility] [id number] [place] [address] [place] Neutrophils (Bld) [#/Vol] 2.68 10*3/uL Normal 1.45-7.50 [facility] Comment on above: Order Comment: Speci men Type: BLOOD SPECIMENOrdering Facility: [facility] Address: [address] [place] [address] Performed By: #### 5 7021-8 ####[facility] [id number] [place] [address] [place] Neutrophils/100 WBC (Bld) 41.9 % Normal [facility] Comment on above: Order Comment: Speci men Type: BLOOD SPECIMENOrdering Facility: [facility] Address: [address] [place] [address] Performed By: #### 5 7021-8 ####[facility] [id number] [place] [address] [place] Nucleated RBC (Bld) [#/Vol] 10*3/uL Normal <0.01 [facility] Comment on above: Order Comment: Speci men Type: BLOOD SPECIMENOrdering Facility: [facility] Address: [address] [place] [address] Performed By: #### 5 7021-8 ####[facility] [id number] [place] [address] [place] Nucleated RBC/100 WBC (Bld) [Ratio] 0.0 /100 WBC Normal [facility] Comment on above: Order Comment: Speci men Type: BLOOD SPECIMENOrdering Facility: [facility] Address: [address] [place] [address] Performed By: #### 5 7021-8 ####[facility] [id number] [place] [address] [place] Platelet mean volume (Bld) [Entitic vol] 10.5 fL Normal 9.0-12.7 [facility] Comment on above: Order Comment: Speci men Type: BLOOD SPECIMENOrdering Facility: [facility] Address: [address] [place] [address] Performed By: #### 5 7021-8 ####[facility] [id number] [place] [address] [place] Platelets (Bld) [#/Vol] 268 10*3/uL Normal 150-400 [facility] Comment on above: Order Comment: Speci men Type: BLOOD SPECIMENOrdering Facility: [facility] Address: [address] [place] [address] Performed By: #### 5 7021-8 ####[facility] [id number] [address] [id number] [address] [place] RBC (Bld) [#/Vol] 4.82 10*6/uL Normal 3.90-5.20 [facility] Comment on above: Order Comment: Speci men Type: BLOOD SPECIMENOrdering Facility: [facility] Address: [address] [place] [address] Performed By: #### 5 7021-8 ####[facility] [id number] [place] [address] [place] WBC (Bld) [#/Vol] 6.39 10*3/uL Normal 3.70-11.00 [facility] Comment on above: Order Comment: Speci men Type: BLOOD SPECIMENOrdering Facility: [facility] Address: [address] [place] [address] Performed By: #### 5 7021-8 ####[facility] [id number] [place] [address] [place] Comprehensive metabolic 2000 panelon 07-24-2024 Albumin [Mass/Vol] 4.1 g/dL Normal 3.9-4.9 [facility] Comment on above: Order Comment: Speci men Type: BLOOD SPECIMENOrdering Facility: [facility] Address: [address] [place] [address] Performed By: #### 1 9113-0, 88647-7 ####[facility] [id number] [place] [address] [place] ALP [Catalytic activity/Vol] 85 U/L Normal 34-123 [facility] Comment on above: Order Comment: Speci men Type: BLOOD SPECIMENOrdering Facility: [facility] Address: [address] [place] [address] Performed By: #### 1 9113-0, 89980-3 ####[facility] [id number] [address] [address] [place] ALT [Catalytic activity/Vol] 16 U/L Normal 7-38 [facility] Comment on above: Order Comment: Speci men Type: BLOOD SPECIMENOrdering Facility: [facility] Address: [address] [place] [address] Performed By: #### 1 9113-0, ####[facility] [id number] [place] [id number] [place] Anion gap [Moles/Vol] 11 mmol/L Normal 8-15 [facility] Comment on above: Order Comment: Speci men Type: BLOOD SPECIMENOrdering Facility: [facility] Address: [address] [place] [address] Performed By: #### 1 9113-0, ####[facility] [id number] [place] [address] [place] AST [Catalytic activity/Vol] 17 U/L Normal 13-35 [facility] Comment on above: Order Comment: Speci men Type: BLOOD SPECIMENOrdering Facility: [facility] Address: [address] [place] [address] Performed By: #### 1 9113-0, ####[facility] [id number] [place] [address] [place] Bilirubin [Mass/Vol] 0.4 mg/dL Normal 0.2-1.3 [facility] Comment on above: Order Comment: Speci men Type: BLOOD SPECIMENOrdering Facility: [facility] Address: [address] [place] [address] Performed By: #### 1 9113-0, ####[facility] [id number] [place] [address] [place] Calcium [Mass/Vol] 9.9 mg/dL Normal 8.5-10.2 [facility] Comment on above: Order Comment: Speci men Type: BLOOD SPECIMENOrdering Facility: [facility] Address: [address] [place] [address] Performed By: #### 1 9113-0, 60592-8 ####[facility] [id number] [address] [address] [place] Chloride [Moles/Vol] 98 mmol/L Normal 98-107 [facility] Comment on above: Order Comment: Speci men Type: BLOOD SPECIMENOrdering Facility: [facility] Address: [address] [place] [address] Performed By: #### 1 9113-0, 61198-0 ####[facility] [id number] [place] [address] [place] CO2 [Moles/Vol] 28 mmol/L Normal 22-30 [facility] Comment on above: Order Comment: Speci men Type: BLOOD SPECIMENOrdering Facility: [facility] Address: [address] [place] [address] Performed By: #### 1 9113-0, ####[facility] [id number] [place] [address] [place] Creatinine [Mass/Vol] 0.95 mg/dL Normal 0.58-0.96 [facility] Comment on above: Order Comment: Speci men Type: BLOOD SPECIMENOrdering Facility: [facility] Address: [address] [place] [address] Performed By: #### 1 9113-0, 20208-8 ####[facility] [id number] [place] [address] [place] Creatinine and Glomerular filtration rate.predicted panel (S/P/Bld) 71 mL/min/1.73m??? Normal >=60 [facility] Comment on above: Order Comment: Speci men Type: BLOOD SPECIMENOrdering Facility: [facility] Address: [address] [place] [address] Result Comment: Anna mated Glomerular Filtration Rate (eGFR) is calculated using the 2020 CKD-EPI creatinine equation. This equation utilizes serum creatinine, sex, and age as parameters. The creatinine assay has traceable calibration to isotope dilution-mass spectrometry. Refer to KDIGO guidelines for clinical interpretation. In patients with unstable renal function, e.g. those with acute kidney injury, the eGFR may not accurately reflect actual GFR. Performed By: #### 1 9113-0, ####[facility] [id number] [place] [address] [place] Glucose [Mass/Vol] 82 mg/dL Normal 74-99 [facility] Comment on above: Order Comment: Jet men Type: BLOOD SPECIMENOrdering Facility: [facility] Address: [address] [place] [address] Result Comment: The [place] [employer] (ADA) provides guidance for cutoff values for fasting glucose and random glucose. The ADA defines fasting as no caloric intake for at least 8 hours. Fasting plasma glucose results between 100 to 125 mg/dL indicate increased risk for diabetes (prediabetes).Fasting plasma glucose results greater than or equal to 126 mg/dL meet the criteria for diagnosis of diabetes. In the absence of unequivocal hyperglycemia, results should be confirmed by repeat testing. In a patient with classic symptoms of hyperglycemia or hyperglycemic crisis, random plasma glucose results greater than or equal to 200 mg/dL meet the criteria for diagnosis of diabetes.Reference: Standards of Medical Care in Diabetes 2016, [place] [employer]. Diabetes Care. 2016.39(Suppl 1). Performed By: #### 1 9113-0, ####[facility] [id number] [place] [id number] [place] Potassium [Moles/Vol] 3.8 mmol/L Normal 3.7-5.1 [facility] Comment on above: Order Comment: Jet otto Type: BLOOD SPECIMENOrdering Facility: [facility] Address: [address] [place] [address] Performed By: #### 1 9113-0, ####[facility] [id number] [place] [id number] [place] Protein [Mass/Vol] 7.6 g/dL Normal 6.3-8.0 [facility] Comment on above: Order Comment: Speci men Type: BLOOD SPECIMENOrdering Facility: [facility] Address: [address] [place] [address] Performed By: #### 1 9113-0, ####[facility] [id number] [place] [address] [place] Sodium [Moles/Vol] 137 mmol/L Normal 136-144 [facility] Comment on above: Order Comment: Speci men Type: BLOOD SPECIMENOrdering Facility: [facility] Address: [address] [place] [address] Performed By: #### 1 9113-0, ####[facility] [id number] [place] [address] [place] Urea nitrogen [Mass/Vol] 16 mg/dL Normal 7-21 [facility] Comment on above: Order Comment: Speci men Type: BLOOD SPECIMENOrdering Facility: [facility] Address: [address] [place] [address] Performed By: #### 1 9113-0, ####[facility] [id number] [place] [address] [place] IgE SerPl-aCncon 07-24-2024 IgE Qn 89.9 kU/l Normal <114.0 [facility] Comment on above: Order Comment: Speci men Type: BLOOD SPECIMENOrdering Facility: [facility] Address: [address] [place] [address] Performed By: #### 1 9113-0, ####[facility] [id number] [place] [address] [place] NUTRITIONon 07-24-2024 NUTRITION Normal [facility] Theophylline SerPl-mCncon Theophylline [Mass/Vol] <0.8 Low 10.0-20.0 [facility] Comment on above: Order Comment: Speci men Type: BLOOD SPECIMENOrdering Facility: [facility] Address: [address] [place] [address] Result Comment: Refe rence ranges and high/low indicator flags are provided as general guidelines only. The treating physician must determine appropriate target levels/dosing based on the specific clinical situation. Performed By: #### 4 049-3 ####[facility] [id number] [facility] [address] [place] [id number] [id number] [place] Basic Metabolic Panelon 12-1 Anion gap [Moles/Vol] 10.8 mmol/L Normal 6.0-15.0 [facility] Comment on above: Performed By: #### H S TROP, BNP, CMP, CK #### [facility] [address] [place] [id number] [place] Calcium [Mass/Vol] 9.7 mg/dL Normal 8.6-10.3 [facility] Comment on above: Performed By: #### H S TROP, BNP, CMP, CK #### [facility] [address] [place] [address] [place] Chloride [Moles/Vol] 101 mmol/L Normal 98-107 [facility] Comment on above: Performed By: #### H S TROP, BNP, CMP, CK #### [facility] [address] [place] [address] [place] CO2 [Moles/Vol] 27.5 mmol/L Normal 21.0-31.0 [facility] Comment on above: Performed By: #### H S TROP, BNP, CMP, CK #### [facility] [address] [place] [address] [place] Creatinine [Mass/Vol] 0.95 mg/dL Normal 0.60-1.20 [facility] Comment on above: Performed By: #### H S TROP, BNP, CMP, CK #### [facility] [address] [place] [address] [place] Creatinine Clr Calc Pharmacy 66.71 Normal [facility] Comment on above: Result Comment: PERF ORMED BY: [place] [address] PATHOLOGIST PANTOGRAPH II ENGRAVER SHAD LANTIGUA M.D. Performed By: #### H S TROP, BNP, CMP, CK #### [address] GFR/1.73 sq M.predicted MDRD (S/P/Bld) [Vol rate/Area] mL/min/{1.73_m2} Normal [facility] Comment on above: Performed By: #### H S TROP, BNP, CMP, CK #### [address] Glucose [Mass/Vol] 80 mg/dL Normal 70-100 [facility] Comment on above: Result Comment: [facility] Glucose Reference Range is dependent on time and content of last meal. Glucose of more than 200 mg/dL in a nonstressed, ambulatory subject supports the diagnosis of Diabetes Mellitus. ADA recommended reference range Performed By: #### H S TROP, BNP, CMP, CK #### [address] Potassium [Moles/Vol] 4.3 mmol/L Normal 3.5-5.1 [facility] Comment on above: Performed By: #### H S TROP, BNP, CMP, CK #### [address] Sodium [Moles/Vol] 135 mmol/L Low 136-145 [facility] Comment on above: Performed By: #### H S TROP, BNP, CMP, CK #### [address] Urea nitrogen [Mass/Vol] 15 mg/dL Normal 7-25 [facility] Comment on above: Performed By: #### H S TROP, BNP, CMP, CK #### [place] [address] [place] Basophils Auto (Bld) [#/Vol] Ordered By: Carlo Bills on 07-23-2024 Basophils (Bld) [#/Vol] Automated basophil count 0.0-0.2 [facility] Basophils/100 WBC Auto (Bld) Ordered By: Carlo Bills on 07-23-2024 Basophils/100 WBC (Bld) Automated basophil % . [facility] CBC W Auto Differential pane l (Bld)on 07-23-2024 Basophils (Bld) [#/Vol] 0.03 10*3/uL Normal <0.11 [facility] Comment on above: Order Comment: Speci men Type: BLOOD SPECIMENOrdering Facility: [facility] Address: [address] [place] [address] Performed By: #### 5 7021-8 ####[facility] [id number] [place] [address] [place] Basophils/100 WBC (Bld) 0.3 % Normal [facility] Comment on above: Order Comment: Speci men Type: BLOOD SPECIMENOrdering Facility: [facility] Address: [address] [place] [address] Performed By: #### 5 7021-8 ####[facility] [id number] [place] [address] [place] Differential cell count method Nom (Bld) Auto Normal [facility] Comment on above: Order Comment: Speci men Type: BLOOD SPECIMENOrdering Facility: [facility] Address: [address] [place] [address] Performed By: #### 5 7021-8 ####[facility] [id number] [place] [address] [place] Eosinophils (Bld) [#/Vol] 0.10 10*3/uL Normal <0.46 [facility] Comment on above: Order Comment: Speci men Type: BLOOD SPECIMENOrdering Facility: [facility] Address: [address] [place] [address] Performed By: #### 5 7021-8 ####[facility] [id number] [address] [id number] [address] [place] Eosinophils/100 WBC (Bld) 1.1 % Normal [facility] Comment on above: Order Comment: Speci men Type: BLOOD SPECIMENOrdering Facility: [facility] Address: [address] [place] [address] Performed By: #### 5 7021-8 ####[facility] [id number] [place] [address] [place] Erythrocyte distribution width (RBC) [Ratio] 12.4 % Normal 11.5-15.0 [facility] Comment on above: Order Comment: Speci men Type: BLOOD SPECIMENOrdering Facility: [facility] Address: [address] [place] [address] Performed By: #### 5 7021-8 ####[facility] [id number] [place] [address] [place] Hematocrit (Bld) [Volume fraction] 43.6 % Normal 36.0-46.0 [facility] Comment on above: Order Comment: Speci men Type: BLOOD SPECIMENOrdering Facility: [facility] Address: [address] [place] [address] Performed By: #### 5 7021-8 ####[facility] [id number] [place] [address] [place] Hemoglobin (Bld) [Mass/Vol] 14.4 g/dL Normal 11.5-15.5 [facility] Comment on above: Order Comment: Speci men Type: BLOOD SPECIMENOrdering Facility: [facility] Address: [address] [place] [address] Performed By: #### 5 7021-8 ####[facility] [id number] [place] [address] [place] Immature granulocytes (Bld) [#/Vol] 10*3/uL Normal <0.10 [facility] Comment on above: Order Comment: Speci men Type: BLOOD SPECIMENOrdering Facility: [facility] Address: [address] [place] [address] Performed By: #### 5 7021-8 ####[facility] [id number] [place] [address] [place] Immature granulocytes/100 WBC (Bld) 0.2 % Normal [facility] Comment on above: Order Comment: Speci men Type: BLOOD SPECIMENOrdering Facility: [facility] Address: [address] [place] [address] Performed By: #### 5 7021-8 ####[facility] [id number] [place] [address] [place] Lymphocytes (Bld) [#/Vol] 1.63 10*3/uL Normal 1.00-4.00 [facility] Comment on above: Order Comment: Speci men Type: BLOOD SPECIMENOrdering Facility: [facility] Address: [address] [place] [address] Performed By: #### 5 7021-8 ####[facility] [id number] [place] [address] [place] Lymphocytes/100 WBC (Bld) 18.2 % Normal [facility] Comment on above: Order Comment: Speci men Type: BLOOD SPECIMENOrdering Facility: [facility] Address: [address] [place] [address] Performed By: #### 5 7021-8 ####[facility] [id number] [place] [address] [place] MCH (RBC) [Entitic mass] 29.7 pg Normal 26.0-34.0 [facility] Comment on above: Order Comment: Speci men Type: BLOOD SPECIMENOrdering Facility: [facility] Address: [address] [place] [address] Performed By: #### 5 7021-8 ####[facility] [id number] [place] [id number] [place] MCHC (RBC) [Mass/Vol] 33.0 g/dL Normal 30.5-36.0 [facility] Comment on above: Order Comment: Speci men Type: BLOOD SPECIMENOrdering Facility: [facility] Address: [address] [place] [address] Performed By: #### 5 7021-8 ####[facility] [id number] [place] [address] [place] MCV (RBC) [Entitic vol] 89.9 fL Normal 80.0-100.0 [facility] Comment on above: Order Comment: Speci men Type: BLOOD SPECIMENOrdering Facility: [facility] Address: [address] [place] [address] Performed By: #### 5 7021-8 ####[facility] [id number] [place] [address] [place] Monocytes (Bld) [#/Vol] 0.78 10*3/uL Normal <0.87 [facility] Comment on above: Order Comment: Speci men Type: BLOOD SPECIMENOrdering Facility: [facility] Address: [address] [place] [address] Performed By: #### 5 7021-8 ####[facility] [id number] [place] [address] [place] Monocytes/100 WBC (Bld) 8.7 % Normal [facility] Comment on above: Order Comment: Speci men Type: BLOOD SPECIMENOrdering Facility: [facility] Address: [address] [place] [address] Performed By: #### 5 7021-8 ####[facility] [id number] [place] [address] [place] Neutrophils (Bld) [#/Vol] 6.41 10*3/uL Normal 1.45-7.50 [facility] Comment on above: Order Comment: Speci men Type: BLOOD SPECIMENOrdering Facility: [facility] Address: [address] [place] [address] Performed By: #### 5 7021-8 ####[facility] LABCLIA [id number] [place] [address] [place] Neutrophils/100 WBC (Bld) 71.5 % Normal [facility] Comment on above: Order Comment: Speci men Type: BLOOD SPECIMENOrdering Facility: [facility] Address: [address] [place] [address] Performed By: #### 5 7021-8 ####[facility] LABCLIA [id number] [place] [address] [place] Nucleated RBC (Bld) [#/Vol] 10*3/uL Normal <0.01 [facility] Comment on above: Order Comment: Speci men Type: BLOOD SPECIMENOrdering Facility: [facility] Address: [address] [place] [address] Performed By: #### 5 7021-8 ####[facility]CL[facility] [id number] [place] [address] [place] Nucleated RBC/100 WBC (Bld) [Ratio] 0.0 /100 WBC Normal [facility] Comment on above: Order Comment: Speci men Type: BLOOD SPECIMENOrdering Facility: [facility] Address: [address] [place] [address] Performed By: #### 5 7021-8 ####[facility]CLIA [id number] [place] [address] [place] Platelet mean volume (Bld) [Entitic vol] 10.6 fL Normal 9.0-12.7 [facility] Comment on above: Order Comment: Speci men Type: BLOOD SPECIMENOrdering Facility: [facility] Address: [address] [place] [address] Performed By: #### 5 7021-8 ####[facility]CL[facility] [id number] [place] [address] [place] Platelets (Bld) [#/Vol] 299 10*3/uL Normal 150-400 [facility] Comment on above: Order Comment: Speci men Type: BLOOD SPECIMENOrdering Facility: [facility] Address: [address] [place] [address] Performed By: #### 5 7021-8 ####[facility] [id number] [place] [address] [place] RBC (Bld) [#/Vol] 4.85 10*6/uL Normal 3.90-5.20 [facility] Comment on above: Order Comment: Speci men Type: BLOOD SPECIMENOrdering Facility: [facility] Address: [address] [place] [address] Performed By: #### 5 7021-8 ####[facility] [id number] [place] [address] [place] WBC (Bld) [#/Vol] 8.97 10*3/uL Normal 3.70-11.00 [facility] Comment on above: Order Comment: Speci men Type: BLOOD SPECIMENOrdering Facility: [facility] Address: [address] [place] [address] Performed By: #### 5 7021-8 ####[facility] [id number] [place] [address] [place] Calcium [Mass/volume] in Ser um or PlasmaOrdered By: Carlo Bills on 07-23-2024 Calcium [Mass/Vol] Calcium [Mass/volume ] in Serum or Plasma 8.6-10.3 [facility] Carbon dioxide, total [Moles /volume] in Serum or PlasmaOrdered By: Carlo Bills on 07-23-2024 CO2 [Moles/Vol] Carbon dioxide, tota l [Moles/volume] in Serum or Plasma 21.0-31.0 [facility] Chloride [Moles/volume] in S uzair or PlasmaOrdered By: Carlo Bills on 07-23-2024 Chloride [Moles/Vol] Chloride [Moles/vol ume] in Serum or Plasma 98-107 [facility] Complete Blood Count Auto Di ffon 07-23-2024 Basophils (Bld) [#/Vol] 0.1 10*3/uL Normal 0.0-0.2 [facility] Comment on above: Result Comment: PERF ORMED BY: [place] [address] PATHOLOGIST PANTOGRAPH II ENGRAVER SHAD LANTIGUA M.D. Performed By: #### H S TROP, BNP, CMP, CK #### [address] Basophils/100 WBC (Bld) 0.5 % Normal . T janis [facility] Comment on above: Performed By: #### H S TROP, BNP, CMP, CK #### [address] Eosinophils (Bld) [#/Vol] 0.3 10*3/uL Normal 0.0-0.45 [facility] Comment on above: Performed By: #### H S TROP, BNP, CMP, CK #### [address] Eosinophils/100 WBC (Bld) 2.9 % Normal . [facility] Comment on above: Performed By: #### H S TROP, BNP, CMP, CK #### [address] Erythrocyte distribution width (RBC) [Ratio] 13.0 % Normal 11.9-15.3 [facility] Comment on above: Performed By: #### H S TROP, BNP, CMP, CK #### [address] Hematocrit (Bld) [Volume fraction] 43.3 % Normal 34.0-46.4 [facility] Comment on above: Performed By: #### H S TROP, BNP, CMP, CK #### [address] [place] [address] [place] Hemoglobin (Bld) [Mass/Vol] 14.5 g/dL Normal 11.8-15.4 [facility] Comment on above: Performed By: #### H S TROP, BNP, CMP, CK #### [address] Lymphocytes (Bld) [#/Vol] 2.4 10*3/uL Normal 1.00-4.8 [facility] Comment on above: Performed By: #### H S TROP, BNP, CMP, CK #### [address] Lymphocytes/100 WBC (Bld) 23.7 % Normal . [facility] Comment on above: Performed By: #### H S TROP, BNP, CMP, CK #### [address] MCH (RBC) [Entitic mass] 30.0 pg Normal 24.7-34.3 [facility] Comment on above: Performed By: #### H S TROP, BNP, CMP, CK #### [address] MCV (RBC) [Entitic vol] 89.8 fL Normal 80-100 [facility] Comment on above: Performed By: #### H S TROP, BNP, CMP, CK #### [address] Mean Corpuscular HGB Conc 33.4 g/dL Normal 32.0-35.0 [facility] Comment on above: Performed By: #### H S TROP, BNP, CMP, CK #### [address] Monocytes (Bld) [#/Vol] 1.1 10*3/uL High 0.0-0.8 [facility] Comment on above: Performed By: #### H S TROP, BNP, CMP, CK #### [address] Monocytes/100 WBC (Bld) 10.7 % Normal . [facility] Comment on above: Performed By: #### H S TROP, BNP, CMP, CK #### [address] Neutrophils (Bld) [#/Vol] 6.2 10*3/uL Normal 1.8-7.7 [facility] Comment on above: Performed By: #### H S TROP, BNP, CMP, CK #### [address] Neutrophils/100 WBC (Bld) 62.2 % Normal . [facility] Comment on above: Performed By: #### H S TROP, BNP, CMP, CK #### [address] NRBC% 0.1 /100{WBC} Normal 0-0.5 [facility] Comment on above: Performed By: #### H S TROP, BNP, CMP, CK #### [address] Platelet mean volume (Bld) [Entitic vol] 8.6 fL Normal 6.3-10.7 [facility] Comment on above: Performed By: #### H S TROP, BNP, CMP, CK #### [address] Platelets (Bld) [#/Vol] 272 10*3/uL Normal 150-450 [facility] Comment on above: Performed By: #### H S TROP, BNP, CMP, CK #### [address] RBC (Bld) [#/Vol] 4.82 10*6/uL Normal 3.60-5.00 [facility] Comment on above: Performed By: #### H S TROP, BNP, CMP, CK #### [address] WBC (Bld) [#/Vol] 10.0 10*3/uL Normal 3.8-11.6 [facility] Comment on above: Performed By: #### H S TROP, BNP, CMP, CK #### [facility] [address] [id number] [facility] Comprehensive metabolic 2000 panelon 07-23-2024 Albumin [Mass/Vol] 4.4 g/dL Normal 3.9-4.9 [facility] Comment on above: Order Comment: Speci men Type: BLOOD SPECIMENOrdering Facility: [facility] Address: [address] [place] [address] Performed By: #### 2 4323-8, 49028-4, 53392-2, 2777-1 ####[facility] LABCLIA [id number] [place] [address] [place] ALP [Catalytic activity/Vol] 92 U/L Normal 34-123 [facility] Comment on above: Order Comment: Speci men Type: BLOOD SPECIMENOrdering Facility: [facility] Address: [address] [place] [address] Performed By: #### 2 4323-8, 89186-6, 16269-1, 2777-1 ####[facility]CL[facility] [id number] [place] [address] [place] ALT [Catalytic activity/Vol] 19 U/L Normal 7-38 [facility] Comment on above: Order Comment: Speci men Type: BLOOD SPECIMENOrdering Facility: [facility] Address: [address] [place] [address] Performed By: #### 2 4323-8, 08239-1, 82079-7, 2777-1 ####[facility]CL[facility] [id number] [address] [address] [place] Anion gap [Moles/Vol] 12 mmol/L Normal 8-15 [facility] Comment on above: Order Comment: Speci men Type: BLOOD SPECIMENOrdering Facility: [facility] Address: [address] [place] [address] Performed By: #### 2 4323-8, 48199-2, 63968-9, 2777-1 ####[facility]CLIA [id number] [place] [id number] [place] AST [Catalytic activity/Vol] 20 U/L Normal 13-35 [facility] Comment on above: Order Comment: Speci men Type: BLOOD SPECIMENOrdering Facility: [facility] Address: [address] [place] [address] Performed By: #### 2 4323-8, 48393-8, 18702-1, 2777-1 ####[facility]CL[facility] [id number] [place] [address] [place] Bilirubin [Mass/Vol] 0.3 mg/dL Normal 0.2-1.3 [facility] Comment on above: Order Comment: Speci men Type: BLOOD SPECIMENOrdering Facility: [facility] Address: [address] [place] [address] Performed By: #### 2 4323-8, 35616-6, 56592-4, 2777-1 ####[facility]CL[facility] [id number] [place] [address] [place] Calcium [Mass/Vol] 9.8 mg/dL Normal 8.5-10.2 [facility] Comment on above: Order Comment: Speci men Type: BLOOD SPECIMENOrdering Facility: [facility] Address: [address] [place] [address] Performed By: #### 2 4323-8, 61048-2, 94668-2, 2777-1 ####[facility]CL[facility] [id number] [place] [id number] [place] Chloride [Moles/Vol] 97 mmol/L Low 98-107 [facility] Comment on above: Order Comment: Speci men Type: BLOOD SPECIMENOrdering Facility: [facility] Address: [address] [place] [address] Performed By: #### 2 4323-8, 12925-9, 95512-5, 2777-1 ####[facility]CL[facility] [id number] [place] [address] [place] CO2 [Moles/Vol] 27 mmol/L Normal 22-30 [facility] Comment on above: Order Comment: Speci men Type: BLOOD SPECIMENOrdering Facility: [facility] Address: [address] [place] [address] Performed By: #### 2 4323-8, 08077-9, 03198-3, 2777-1 ####[facility] LABIA [id number] [place] [id number] [place] Creatinine [Mass/Vol] 0.87 mg/dL Normal 0.58-0.96 [facility] Comment on above: Order Comment: Speci men Type: BLOOD SPECIMENOrdering Facility: [facility] Address: [address] [place] [address] Performed By: #### 2 4323-8, 89733-2, 79307-2, 2777-1 ####[facility] LABIA [id number] [place] [id number] [place] Creatinine and Glomerular filtration rate.predicted panel (S/P/Bld) 79 mL/min/1.73m??? Normal >=60 [facility] Comment on above: Order Comment: Speci men Type: BLOOD SPECIMENOrdering Facility: [facility] Address: [address] [place] [address] Result Comment: Anna mated Glomerular Filtration Rate (eGFR) is calculated using the 2020 CKD-EPI creatinine equation. This equation utilizes serum creatinine, sex, and age as parameters. The creatinine assay has traceable calibration to isotope dilution-mass spectrometry. Refer to KDIGO guidelines for clinical interpretation. In patients with unstable renal function, e.g. those with acute kidney injury, the eGFR may not accurately reflect actual GFR. Performed By: #### 2 4323-8, 91378-2, 74422-0, 2777-1 ####[facility] LABIA [id number] [place] [id number] [place] Glucose [Mass/Vol] 92 mg/dL Normal 74-99 [facility] Comment on above: Order Comment: Speci men Type: BLOOD SPECIMENOrdering Facility: [facility] Address: [address] [place] [address] Result Comment: The [place] [employer] (ADA) provides guidance for cutoff values for fasting glucose and random glucose. The ADA defines fasting as no caloric intake for at least 8 hours. Fasting plasma glucose results between 100 to 125 mg/dL indicate increased risk for diabetes (prediabetes).Fasting plasma glucose results greater than or equal to 126 mg/dL meet the criteria for diagnosis of diabetes. In the absence of unequivocal hyperglycemia, results should be confirmed by repeat testing. In a patient with classic symptoms of hyperglycemia or hyperglycemic crisis, random plasma glucose results greater than or equal to 200 mg/dL meet the criteria for diagnosis of diabetes.Reference: Standards of Medical Care in Diabetes 2016, [place] [employer]. Diabetes Care. 2016.39(Suppl 1). Performed By: #### 2 4323-8, 22076-3, 70129-3, 2777-1 ####[facility] LABIA [id number] [place] [id number] [place] Potassium [Moles/Vol] 4.2 mmol/L Normal 3.7-5.1 [facility] Comment on above: Order Comment: Speci men Type: BLOOD SPECIMENOrdering Facility: [facility] Address: [address] [id number] Performed By: #### 2 4323-8, 86404-0, 97471-8, 2777-1 ####[facility] LABIA [id number] [place] [id number] [place] Protein [Mass/Vol] 8.3 g/dL High 6.3-8.0 [facility] Comment on above: Order Comment: Speci men Type: BLOOD SPECIMENOrdering Facility: [facility] Address: [address] [id number] Performed By: #### 2 4323-8, 25079-7, 60222-5, 2777-1 ####[facility] LABCLIA [id number] [place] [id number] [place] Sodium [Moles/Vol] 136 mmol/L Normal 136-144 [facility] Comment on above: Order Comment: Speci men Type: BLOOD SPECIMENOrdering Facility: [facility] Address: [address] [place] [address] Performed By: #### 2 4323-8, 25203-1, 37899-0, 2777-1 ####[facility]CL[facility] [id number] [place] [address] [place] Urea nitrogen [Mass/Vol] 14 mg/dL Normal 7-21 [facility] Comment on above: Order Comment: Speci men Type: BLOOD SPECIMENOrdering Facility: [facility] Address: [address] [place] [address] Performed By: #### 2 4323-8, 23354-3, 97856-8, 2777-1 ####[facility]CL[facility] [id number] [place] [address] [place] Creatinine [Mass/volume] in Serum or PlasmaOrdered By: Carlo Bills on 07-23-2024 Creatinine [Mass/Vol] Creatinine [Mass/v olume] in Serum or Plasma 0.60-1.20 [facility] Eosinophils Auto (Bld) [#/Vo l]Ordered By: Carlo Bills on 07-23-2024 Eosinophils (Bld) [#/Vol] Automated eosinophil count 0.0-0.45 [facility] Eosinophils/100 WBC Auto (Bl d)Ordered By: Carlo Bills on 07-23-2024 Eosinophils/100 WBC (Bld) Automated eosinophil % . [facility] Erythrocyte distribution wid th Auto (RBC) [Ratio]Ordered By: Carlo Bills on 07-23-2024 Erythrocyte distribution width (RBC) [Ratio] Erythrocyte distribution width [Ratio] by Automated count 11.9-15.3 [facility] Glucose [Mass/volume] in Ser um or PlasmaOrdered By: Carlo Bills on 07-23-2024 Glucose [Mass/Vol] Glucose [Mass/volume ] in Serum or Plasma 70-100 [facility] Comment on above: ADA recommended refe rence rangeRandom Glucose Reference Range is dependent on time and content of last meal. Glucose of more than 200 mg/dL in a nonstressed, ambulatory subject supports the diagnosis of Diabetes Mellitus. HISTORY PHYSICALon HISTORY PHYSICAL Normal [facility] Hematocrit Auto (Bld) [Volum e fraction]Ordered By: Carlo Bills on 07-23-2024 Hematocrit (Bld) [Volume fraction] Hematocrit [Volume Fraction] of Blood by Automated count 34.0-46.4 [facility] Hemoglobin [Mass/volume] in BloodOrdered By: Carlo Bills on 07-23-2024 Hemoglobin (Bld) [Mass/Vol] Hemoglobin [Mass/volume] in Blood 11.8-15.4 [facility] Leukocytes [#/volume] correc lucas for nucleated erythrocytes in Blood by Automated counOrdered By: Carlo Bills on 07-23-2024 WBC corrected for nucl RBC Auto (Bld) [#/Vol] Leukocytes [#/volume] corrected for nucleated erythrocytes in Blood by Automated coun 3.8-11.6 [facility] Lymphocytes Auto (Bld) [#/Vo l]Ordered By: Carlo Bills on 07-23-2024 Lymphocytes (Bld) [#/Vol] Lymphocytes [#/volume] in Blood by Automated count 1.00-4.8 [facility] Lymphocytes/100 WBC Auto (Bl d)Ordered By: Carlo Bills on 07-23-2024 Lymphocytes/100 WBC (Bld) Lymphocytes/100 leukocytes in Blood by Automated count . [facility] MCH Auto (RBC) [Entitic mass ]Ordered By: Carlo Bills on 07-23-2024 MCH (RBC) [Entitic mass] MCH [Entitic mass] by Automated count 24.7-34.3 [facility] MCHC Auto (RBC) [Mass/Vol]Or dered By: Carlo Bills on 07-23-2024 MCHC (RBC) [Mass/Vol] MCHC [Mass/volume] by Automated count 32.0-35.0 [facility] MCV Auto (RBC) [Entitic vol] Ordered By: Carlo Bills on 07-23-2024 MCV (RBC) [Entitic vol] MCV [Entitic vol ume] by Automated count 80-100 [facility] Magnesium [Mass/Vol] 1.9 mg/dL Normal 1.7-2.3 [facility] Comment on above: Order Comment: Speci men Type: BLOOD SPECIMENOrdering Facility: [facility] Address: [address] [place] [address] Performed By: #### 2 4323-8, 77294-9, 78116-7, 2777-1 ####[facility]CL[facility] [id number] [place] [address] [place] Monocytes Auto (Bld) [#/Vol] Ordered By: Carlo Bills on 07-23-2024 Monocytes (Bld) [#/Vol] Automated blood monocyte count High 0.0-0.8 [facility] Monocytes/100 WBC Auto (Bld) Ordered By: Carlo Bills on 07-23-2024 Monocytes/100 WBC (Bld) Automated monocyte % . [facility] NT-proBNP [facility] Natriuretic peptide.B prohormone N-Terminal [Mass/Vol] 95 pg/mL Normal <125 [facility] Comment on above: Order Comment: Speci men Type: BLOOD SPECIMENOrdering Facility: [facility] Address: [address] [place] [address] Performed By: #### 2 4323-8, 74355-6, 06256-1, 2777-1 ####[facility]CL[facility] [id number] [place] [address] [place] Neutrophils Auto (Bld) [#/Vo l]Ordered By: Carlo Bills on 07-23-2024 Neutrophils (Bld) [#/Vol] Neutrophils [#/volume] in Blood by Automated count 1.8-7.7 [facility] Neutrophils/100 WBC Auto (Bl d)Ordered By: Carlo Bills on 07-23-2024 Neutrophils/100 WBC (Bld) Automated neutrophil % . [facility] No Panel InformationOrdered By: Carlo Bills on 07-23-2024 Estimated GFR (CKD-EPI) > 60.0 mL/Min [facility] Creatinine Clearance (Chem 66.71 [facility] Nucleated erythrocytes [Pres ence] in Blood by Automated countOrdered By: Carlo Bills on 07-23-2024 Nucleated RBC Auto Ql (Bld) Nucleated erythrocytes [Presence] in Blood by Automated count 0-0.5 [facility] PT panel Coag (PPP)on 2023 INR Coag (PPP) [Relative time] 1.1 {INR} Normal 0.9-1.3 [facility] Comment on above: Order Comment: Speci men Type: BLOOD SPECIMENOrdering Facility: [facility] Address: [address] [place] [address] Result Comment: Becki min K Antagonist (VKA) Therapeutic Range: INR 2 to 3 (Target INR of 2.5)Note: For patients treated with VKA drugs, such as warfarin, the [place] [employer] 2012 Guideline recommends a therapeutic INR range of 2 to 3 (target INR of 2.5). This recommendation includes high-risk patients with antiphospholipid syndrome with previous arterial or venous thromboembolism, current-generation mechanical or bioprosthetic aortic heart valve replacement.Note: Patients with mechanical aortic valve replacement and additional risk factors for thromboembolic events (atrial fibrillation, previous thromboembolism, LV dysfunction, hypercoagulable conditions) or an older generation mechanical AVR (i.e., ball in-Cage) or any mechanical MVR should have a INR therapeutic range of 2.5 to 3.5 (target INR of 3).Rosario GH, et al. Chest 2012, 141:7S-47SNishimura RA, et al. [facility] 2017, 70: 252-289 Performed By: #### 3 4528-0 ####[facility]CL[facility] [id number] [facility] [id number] [address] [place] PT Coag (PPP) [Time] 12.0 s Normal 9.7-13.0 [facility] Comment on above: Order Comment: Speci men Type: BLOOD SPECIMENOrdering Facility: [facility] Address: [address] [place] [address] Performed By: #### 3 4528-0 ####[facility] LABCLIA [id number] [place] [address] [place] Phosphate SerPl-mCncon 07-23 Phosphate [Mass/Vol] 2.8 mg/dL Normal 2.7-4.8 [facility] Comment on above: Order Comment: Speci men Type: BLOOD SPECIMENOrdering Facility: [facility] Address: [address] [place], [place] [address] [address] Performed By: #### 2 4323-8, 43007-4, 65655-4, 2777-1 ####[facility] LABCLIA [id number] [place] [address] [place] Platelet mean volume Auto (B ld) [Entitic vol]Ordered By: Carlo Bills on 07-23-2024 Platelet mean volume (Bld) [Entitic vol] Platelet mean volume [Entitic volume] in Blood by Automated count 6.3-10.7 [facility] Platelets Auto (Bld) [#/Vol] Ordered By: Carlo Bills on 07-23-2024 Platelets (Bld) [#/Vol] Platelets [#/vol ume] in Blood by Automated count 150-450 [facility] Potassium [Moles/volume] in Serum or PlasmaOrdered By: Carol Bills on 07-23-2024 Potassium [Moles/Vol] Potassium [Moles/v olume] in Serum or Plasma 3.5-5.1 [facility] RBC Auto (Bld) [#/Vol]Ordere d By: Carlo Bills on 07-23-2024 RBC (Bld) [#/Vol] Erythrocytes [#/volu me] in Blood by Automated count 3.60-5.00 [facility] Resp path 12b Pnl Spec JAMES+p robeon 07-23-2024 Respiratory pathogens DNA and RNA 12b panel JAMES+probe (Unsp spec) Abnormal [facility] Comment on above: Performed By: #### 6 0566-7, 51415-7 ####[facility] LABCLIA [id number] [place] [address] [place] Serum or plasma anion gap de terminationOrdered By: Carlo Bills on 07-23-2024 Anion gap [Moles/Vol] Serum or plasma an ion gap determination 6.0-15.0 [facility] Sodium [Moles/volume] in Ser um or PlasmaOrdered By: Carlo Bills on 07-23-2024 Sodium [Moles/Vol] Sodium [Moles/volume ] in Serum or Plasma Low 136-145 [facility] Urea nitrogen [Mass/volume] in Serum or PlasmaOrdered By: Carlo Bills on 07-23-2024 Urea nitrogen [Mass/Vol] Urea nitrogen [Mass/volume] in Serum or Plasma 7-25 [facility] WBC Auto (Bld) [#/Vol]Ordere d By: Carlo Bills on 07-23-2024 WBC (Bld) [#/Vol] Leukocytes [#/volume ] in Blood by Automated count 3.8-11.6 [facility] XR CHEST 1V FRONTAL PORTon 1 09-23-2023 XR CHEST 1V FRONTAL PORT Normal [facility] Basic Metabolic Panelon 07-11 Anion gap [Moles/Vol] 12.8 mmol/L Normal 6.0-15.0 [facility] Comment on above: Performed By: #### R EDMUND PANEL UPP., BIOFIRECOVNOTDE #### [facility] [address] Calcium [Mass/Vol] 10.4 mg/dL High 8.6-10.3 [facility] Comment on above: Performed By: #### R EDMUND PANEL UPP., BIOFIRECOVNOTDE #### [facility] [address] Chloride [Moles/Vol] 99 mmol/L Normal 98-107 [facility] Comment on above: Performed By: #### R EDMUND PANEL UPP., BIOFIRECOVNOTDE #### [facility] [address] CO2 [Moles/Vol] 27.7 mmol/L Normal 21.0-31.0 [facility] Comment on above: Performed By: #### R EDMUND PANEL UPP., BIOFIRECOVNOTDE #### [facility] [address] Creatinine [Mass/Vol] 1.08 mg/dL Normal 0.60-1.20 [facility] Comment on above: Performed By: #### R EDMUND PANEL UPP., BIOFIRECOVNOTDE #### [place] [address] [place] Creatinine Clr [facility] 58.68 Normal [facility] Comment on above: Result Comment: PERF ORMED BY: [place] [address] PATHOLOGIST PANTOGRAPH II ENGRAVER SHAD LANTIGUA M.D. Performed By: #### R EDUMND PANEL UPP., BIOFIRECOVNOTDE #### [place] [address] [place] GFR/1.73 sq M.predicted MDRD (S/P/Bld) [Vol rate/Area] mL/min/{1.73_m2} Normal [facility] Comment on above: Performed By: #### R EDMUND PANEL UPP., BIOFIRECOVNOTDE #### [address] Glucose [Mass/Vol] 114 mg/dL High 70-100 [facility] Comment on above: Result Comment: [place] Glucose Reference Range is dependent on time and content of last meal. Glucose of more than 200 mg/dL in a nonstressed, ambulatory subject supports the diagnosis of Diabetes Mellitus. ADA recommended reference range Performed By: #### R EDMUND PANEL UPP., BIOFIRECOVNOTDE #### [facility] [address] [place] [address] [place] Potassium [Moles/Vol] 4.5 mmol/L Normal 3.5-5.1 [facility] Comment on above: Performed By: #### R EDMUND PANEL UPP., BIOFIRECOVNOTDE #### [address] Sodium [Moles/Vol] 135 mmol/L Low 136-145 [facility] Comment on above: Performed By: #### R EDMUND PANEL UPP., BIOFIRECOVNOTDE #### [address] Urea nitrogen [Mass/Vol] 14 mg/dL Normal 7-25 [facility] Comment on above: Performed By: #### R EDMUND PANEL UPP., BIOFIRECOVNOTDE #### [address] Complete Blood Count Auto Di ffon 2024 Basophils (Bld) [#/Vol] 0.0 10*3/uL Normal 0.0-0.2 [facility] Comment on above: Result Comment: PERF ORMED BY: [place] [address] PATHOLOGIST PANTOGRAPH II ENGRAVER SHAD LANTIGUA M.D. Performed By: #### R EDMUND PANEL UPP., BIOFIRECOVNOTDE #### [address] Basophils/100 WBC (Bld) 0.5 % Normal . T janis [facility] Comment on above: Performed By: #### R EDMUND PANEL UPP., BIOFIRECOVNOTDE #### [address] Eosinophils (Bld) [#/Vol] 0.1 10*3/uL Normal 0.0-0.45 [facility] Comment on above: Performed By: #### R EDMUND PANEL UPP., BIOFIRECOVNOTDE #### [address] Eosinophils/100 WBC (Bld) 0.6 % Normal . [facility] Comment on above: Performed By: #### R EDMUND PANEL UPP., BIOFIRECOVNOTDE #### [address] Erythrocyte distribution width (RBC) [Ratio] 13.5 % Normal 11.9-15.3 [facility] Comment on above: Performed By: #### R EDMUND PANEL UPP., BIOFIRECOVNOTDE #### [address] Hematocrit (Bld) [Volume fraction] 49.4 % High 34.0-46.4 [facility] Comment on above: Performed By: #### R EDMUND PANEL UPP., BIOFIRECOVNOTDE #### [address] Hemoglobin (Bld) [Mass/Vol] 16.6 g/dL High 11.8-15.4 [facility] Comment on above: Performed By: #### R EDMUND PANEL UPP., BIOFIRECOVNOTDE #### [address] Lymphocytes (Bld) [#/Vol] 0.7 10*3/uL Low 1.00-4.8 [facility] Comment on above: Performed By: #### R EDMUND PANEL UPP., BIOFIRECOVNOTDE #### [address] Lymphocytes/100 WBC (Bld) 7.2 % Normal . [facility] Comment on above: Performed By: #### R EDMUND PANEL UPP., BIOFIRECOVNOTDE #### [address] MCH (RBC) [Entitic mass] 30.0 pg Normal 24.7-34.3 [facility] Comment on above: Performed By: #### R EDMUND PANEL UPP., BIOFIRECOVNOTDE #### [address] MCV (RBC) [Entitic vol] 89.6 fL Normal 80-100 [facility] Comment on above: Performed By: #### R EDMUND PANEL UPP., BIOFIRECOVNOTDE #### [address] Mean Corpuscular HGB Conc 33.5 g/dL Normal 32.0-35.0 [facility] Comment on above: Performed By: #### R EDMUND PANEL UPP., BIOFIRECOVNOTDE #### [address] Monocytes (Bld) [#/Vol] 0.2 10*3/uL Normal 0.0-0.8 [facility] Comment on above: Performed By: #### R EDMUND PANEL UPP., BIOFIRECOVNOTDE #### [address] Monocytes/100 WBC (Bld) 2.1 % Normal . [facility] Comment on above: Performed By: #### R EDMUND PANEL UPP., BIOFIRECOVNOTDE #### [address] Neutrophils (Bld) [#/Vol] 8.9 10*3/uL High 1.8-7.7 [facility] Comment on above: Performed By: #### R EDMUND PANEL UPP., BIOFIRECOVNOTDE #### [address] Neutrophils/100 WBC (Bld) 89.6 % Normal . [facility] Comment on above: Performed By: #### R EDMUND PANEL UPP., BIOFIRECOVNOTDE #### [address] NRBC% 0.0 /100{WBC} Normal 0-0.5 [facility] Comment on above: Performed By: #### R EDMUND PANEL UPP., BIOFIRECOVNOTDE #### [address] Platelet mean volume (Bld) [Entitic vol] 8.5 fL Normal 6.3-10.7 [facility] Comment on above: Performed By: #### R EDMUND PANEL UPP., BIOFIRECOVNOTDE #### [address] [place] [address] [place] Platelets (Bld) [#/Vol] 298 10*3/uL Normal 150-450 [facility] Comment on above: Performed By: #### R EDMUND PANEL UPP., BIOFIRECOVNOTDE #### [facility] [address] RBC (Bld) [#/Vol] 5.51 10*6/uL High 3.60-5.00 [facility] Comment on above: Performed By: #### R EDMUND PANEL UPP., BIOFIRECOVNOTDE #### [facility] [address] WBC (Bld) [#/Vol] 9.9 10*3/uL Normal 3.8-11.6 [facility] Comment on above: Performed By: #### R EDMUND PANEL UPP., BIOFIRECOVNOTDE #### [address] ECG 12 lead ECGon 07-21-2024 ECG 12 lead ECG [facility] Main [place] [address] [place] [address] Electrocardiograph Report Signed Patient: Meredith Chaidez MR#: [id number] 12 : 1970 Acct:[id number] Age/Sex: 53 / F ADM Date: 07/20/24 Loc: Room: [address] [place] [address] Type: ADM IN Attending Dr: Carlo Bills DO Ordering Provider: Carlo Bills DO Date of Service: 07/21/2407/04/1528 ECG/ECG 12 lead ECG: new chest pressure Copies to: Test Reason : Blood Pressure : */* mmHG Vent. Rate : 91 BPM Atrial Rate : 91 BPM P-R Int : 162 ms QRS Dur : 88 ms QT Int : 378 ms P-R-T Axes : 64 -46 71 degrees QTcB Int : 464 ms Normal sinus rhythm Left axis deviation Abnormal ECG When compared with ECG of 20-Jul-2024 15:52, (Unconfirmed) QRS axis shifted left Confirmed by TATY HO MD ([id number]) on 07/21/2024 4:00:52 PM Referred By: Electronically Signed By: TATY HO MD Transcribed By: MUS Signed By Taty Ho MD 1 09/21/23 1600 Normal [facility] B-Type Natriuretic Peptideon 07-20-2024 Natriuretic peptide B (Bld) [Mass/Vol] 7.0 pg/mL Normal 5-100 [facility] Comment on above: Result Comment: PERF ORMED BY: [place] [address] PATHOLOGIST PANTOGRAPH II ENGRAVER SHAD LANTIGUA M.D. Performed By: #### H S TROP, BNP, CMP, CK #### [address] Basic Metabolic Panelon 07-11 Anion gap [Moles/Vol] 9.5 mmol/L Normal 6.0-15.0 [facility] Comment on above: Performed By: #### H S TROP, BNP, CMP, CK #### [address] Calcium [Mass/Vol] 10.3 mg/dL Normal 8.6-10.3 [facility] Comment on above: Performed By: #### H S TROP, BNP, CMP, CK #### [address] Chloride [Moles/Vol] 105 mmol/L Normal 98-107 [facility] Comment on above: Performed By: #### H S TROP, BNP, CMP, CK #### [address] CO2 [Moles/Vol] 27.7 mmol/L Normal 21.0-31.0 [facility] Comment on above: Performed By: #### H S TROP, BNP, CMP, CK #### [address] Creatinine [Mass/Vol] 1.05 mg/dL Normal 0.60-1.20 [facility] Comment on above: Performed By: #### H S TROP, BNP, CMP, CK #### [address] Creatinine Clr [facility] 61.57 Normal [facility] Comment on above: Result Comment: PERF ORMED BY: [place] [address] PATHOLOGIST PANTOGRAPH II ENGRAVER SHAD LANTIGUA M.D. Performed By: #### H S TROP, BNP, CMP, CK #### [place] [address] [place] GFR/1.73 sq M.predicted MDRD (S/P/Bld) [Vol rate/Area] mL/min/{1.73_m2} Normal [facility] Comment on above: Performed By: #### H S TROP, BNP, CMP, CK #### [address] Glucose [Mass/Vol] 98 mg/dL Normal 70-100 [facility] Comment on above: Result Comment: [place] Glucose Reference Range is dependent on time and content of last meal. Glucose of more than 200 mg/dL in a nonstressed, ambulatory subject supports the diagnosis of Diabetes Mellitus. ADA recommended reference range Performed By: #### H S TROP, BNP, CMP, CK #### [address] Potassium [Moles/Vol] 4.2 mmol/L Normal 3.5-5.1 [facility] Comment on above: Performed By: #### H S TROP, BNP, CMP, CK #### [place] [address] [place] Sodium [Moles/Vol] 138 mmol/L Normal 136-145 [facility] Comment on above: Performed By: #### H S TROP, BNP, CMP, CK #### [place] [address] [place] Urea nitrogen [Mass/Vol] 10 mg/dL Normal 7-25 [facility] Comment on above: Performed By: #### H S TROP, BNP, CMP, CK #### [place] [address] [place] COVID Cepheid NegativeOrdere d By: Ashanti Dutta on 07-20-2024 SARS-CoV-2 (COVID-19) Ab IA Ql COVID Cepheid Negative [facility] Comment on above: This is a duplicate Cepheid Xpert Xpress CoV-2/Flu/RSV Plus RNA by RT-PCR result to be used for statistical tracking purpose only. COVID-19 / Flu A/B / RSV PCR on 07-20-2024 SARS-CoV-2 (COVID-19) RNA JAMES+probe Ql (Unsp spec) COVID-19 Cepheid Result Negative for SARS-CoV-2 RNA by RT-PCR Flu A Cepheid Result Negative for Flu A RNA by RT-PCR Flu B Cepheid Result Negative for Flu B RNA by RT-PCR RSV Cepheid Result Negative for RSV RNA by RT-PCR COVID19 Blank Space ---- Reference: Negative COVID19 Blank Space ---- Cepheid Disclaimer The Cepheid Xpert Xpress CoV-2/Flu/RSV Plus has Cepheid Disclaimer not been FDA cleared or approved; this test has Cepheid Disclaimer been authorized by FDA under an EUA for use by Cepheid Disclaimer authorized laboratories; this test has been Cepheid Disclaimer authorized only for the simultaneous qualitative Cepheid Disclaimer detection and differentiation of nucleic acids from Cepheid Disclaimer SARS-CoV-2, influenza A, influenza B, and Cepheid Disclaimer respiratory syncytial virus (RSV), and not for any Cepheid Disclaimer other viruses or pathogens; and this test is only Cepheid Disclaimer authorized for the duration of the declaration that Cepheid Disclaimer circumstances exist justifying the authorization of Cepheid Disclaimer emergency use of in vitro diagnostic tests for Cepheid Disclaimer detection and/or diagnosis of COVID-19 under Cepheid Disclaimer Section 564(b)(1) of the Act, 21 U.S.C. 360bbb- Cepheid Disclaimer 3(b)(1), unless the authorization is terminated or Cepheid Disclaimer revoked sooner. PERFORMED BY: [place] [address] PATHOLOGIST PANTOGRAPH II ENGRAVER SHAD LANTIGUA M.D. Normal [facility] Comment on above: Performed By: #### C EPHEID NEG, COVID19 FLU RSV ####[address] Cepheid COVID PCR Negativeon 07-20-2024 SARS-CoV-2 (COVID-19) RNA JAMES+probe Ql (Unsp spec) Negative Normal Negative [facility] Comment on above: Result Comment: This is a duplicate Cepheid Xpert Xpress CoV-2/Flu/RSV Plus RNA by RT-PCR result to be used for statistical tracking purpose only. PERFORMED BY: [place] [address] PATHOLOGIST PANTOGRAPH II ENGRAVER SHAD LANTIGUA M.D. Performed By: #### C EPHEID NEG, COVID19 FLU RSV ####[address] Complete Blood Count Auto Di ffon 07-20-2024 Basophils (Bld) [#/Vol] 0.1 10*3/uL Normal 0.0-0.2 [facility] Comment on above: Result Comment: PERF ORMED BY: [place] [address] PATHOLOGIST PANTOGRAPH II ENGRAVER SHAD LANTIGUA M.D. Performed By: #### H S TROP, BNP, CMP, CK #### [address] Basophils/100 WBC (Bld) 1.1 % Normal . T [facility] Comment on above: Performed By: #### H S TROP, BNP, CMP, CK #### [place] [address] Eosinophils (Bld) [#/Vol] 1.4 10*3/uL High 0.0-0.45 [facility] Comment on above: Performed By: #### H S TROP, BNP, CMP, CK #### [address] Eosinophils/100 WBC (Bld) 18.8 % Normal . [facility] Comment on above: Performed By: #### H S TROP, BNP, CMP, CK #### [address] Erythrocyte distribution width (RBC) [Ratio] 13.4 % Normal 11.9-15.3 [facility] Comment on above: Performed By: #### H S TROP, BNP, CMP, CK #### [address] Hematocrit (Bld) [Volume fraction] 47.3 % High 34.0-46.4 [facility] Comment on above: Performed By: #### H S TROP, BNP, CMP, CK #### [address] Hemoglobin (Bld) [Mass/Vol] 15.8 g/dL High 11.8-15.4 [facility] Comment on above: Performed By: #### H S TROP, BNP, CMP, CK #### [address] Lymphocytes (Bld) [#/Vol] 1.5 10*3/uL Normal 1.00-4.8 [facility] Comment on above: Performed By: #### H S TROP, BNP, CMP, CK #### [place] [address] [place] Lymphocytes/100 WBC (Bld) 19.5 % Normal . [facility] Comment on above: Performed By: #### H S TROP, BNP, CMP, CK #### [address] MCH (RBC) [Entitic mass] 29.7 pg Normal 24.7-34.3 [facility] Comment on above: Performed By: #### H S TROP, BNP, CMP, CK #### [address] MCV (RBC) [Entitic vol] 88.7 fL Normal 80-100 [facility] Comment on above: Performed By: #### H S TROP, BNP, CMP, CK #### [address] Mean Corpuscular HGB Conc 33.5 g/dL Normal 32.0-35.0 [facility] Comment on above: Performed By: #### H S TROP, BNP, CMP, CK #### [address] Monocytes (Bld) [#/Vol] 0.7 10*3/uL Normal 0.0-0.8 [facility] Comment on above: Performed By: #### H S TROP, BNP, CMP, CK #### [address] Monocytes/100 WBC (Bld) 17.37 % Normal 0.00-20.00 [facility] Comment on above: Performed By: #### H S TROP, BNP, CMP, CK #### [address] Monocytes/100 WBC (Bld) 8.5 % Normal . [facility] Comment on above: Performed By: #### H S TROP, BNP, CMP, CK #### [address] Neutrophils (Bld) [#/Vol] 4.0 10*3/uL Normal 1.8-7.7 [facility] Comment on above: Performed By: #### H S TROP, BNP, CMP, CK #### [address] Neutrophils/100 WBC (Bld) 52.1 % Normal . [facility] Comment on above: Performed By: #### H S TROP, BNP, CMP, CK #### [address] [place] [address] [place] NRBC% 0.1 /100{WBC} Normal 0-0.5 [facility] Comment on above: Performed By: #### H S TROP, BNP, CMP, CK #### [address] Platelet mean volume (Bld) [Entitic vol] 8.5 fL Normal 6.3-10.7 [facility] Comment on above: Performed By: #### H S TROP, BNP, CMP, CK #### [address] Platelets (Bld) [#/Vol] 303 10*3/uL Normal 150-450 [facility] Comment on above: Performed By: #### H S TROP, BNP, CMP, CK #### [address] RBC (Bld) [#/Vol] 5.33 10*6/uL High 3.60-5.00 [facility] Comment on above: Performed By: #### H S TROP, BNP, CMP, CK #### [address] WBC (Bld) [#/Vol] 7.7 10*3/uL Normal 3.8-11.6 [facility] Comment on above: Performed By: #### H S TROP, BNP, CMP, CK #### [address] ECG 12 lead ECGon 07-20-2024 ECG 12 lead ECG [facility] [place] [address] Electrocardiograph Report Signed Patient: Meredith Chaidez MR#: [id number] [birth year] : 1970 Acct:[id number] Age/Sex: 53 / F ADM Date: 07/20/24 Loc: Room: [address] [place] [address] Type: ADM IN Attending Dr: Carlo Bills DO Ordering Provider: Ashanti Dutta DO Date of Service: 07/20/2406/03/1552 ECG/ECG 12 lead ECG: Shortness of Breath/Dyspnea Copies to: Test Reason : Blood Pressure : 177/102 mmHG Vent. Rate : 94 BPM Atrial Rate : 94 BPM P-R Int : 196 ms QRS Dur : 86 ms QT Int : 372 ms P-R-T Axes : 81 67 82 degrees QTcB Int : 465 ms Normal sinus rhythm Confirmed by Ashanti Dutta [place] ([id number]) on 07/21/2024 7:44:31 PM Referred By: Electronically Signed By: Ashanti Dutta DO Transcribed By: MUS Signed By Ashanti Dutta DO 1943 Normal [facility] Monocyte distribution width [Entitic volume] in Blood by AutomatedOrdered By: Ashanti Dutta on 07-20-2024 Monocyte distribution width Auto (Bld) [Entitic vol] Monocyte distribution width [Entitic volume] in Blood by Automated 0.00-20.00 [facility] Natriuretic peptide B [Mass/ Vol]Ordered By: Ashanti Dutta on 07-20-2024 Natriuretic peptide B (Bld) [Mass/Vol] BNP ser/plas 5-100 [facility] Respiratory specimen influen za A virus, influenza B virus, respiratory syncytical virOrdered By: Ashanti Dutta on 07-20-2024 SARS-CoV-2 (COVID-19) RNA JAMES+probe Ql (Unsp spec) Respiratory specimen influenza A virus, influenza B virus, respiratory syncytical vir [facility] Troponin I High Sensitivityo n 07-20-2024 Troponin I High Sensitivity 3.9 pg/mL Normal 0.0-15.0 [facility] Comment on above: Result Comment: PERF ORMED BY: [place] [address] PATHOLOGIST PANTOGRAPH II ENGRAVER SHAD LANTIGUA M.D. Performed By: #### H S TROP, BNP, CMP, CK #### [address] Troponin I.cardiac [Mass/vol ume] in Serum or Plasma by Detection limit <= 0.01 ng/Ordered By: Ashanti Dutta on 07-20-2024 Troponin I.cardiac DL <= 0.01 ng/mL [Mass/Vol] Troponin I.cardiac [Mass/volume] in Serum or Plasma by Detection limit <= 0.01 ng/ 0.0-15.0 [facility] XR chest 2V*on 07-20-2024 XR chest 2V* [facility] Main [address] [address] XRay Report Signed Patient: Meredith Chaidez MR#: [id number] 12 : 1970 Acct:[id number] Age/Sex: 53 / F ADM Date: 07/20/24 Loc: ER Room: Type: [facility] ER Attending Dr: Copies to: Ashanti Dutta DO Ordering Provider: Ashanti Dutta DO Date of Service: 07/20/24 XR/XR chest 2V*: pulm fibrosis Chest 2 views CLINICAL HISTORY: Dyspnea chest tightness COMPARISON: Chest 06/01/2024 FINDINGS: Heart normal in size. Lungs are clear. No free air. Osseous structures demonstrate degenerative change XR/XR chest 2V* IMPRESSION: NO ACUTE CARDIOPULMONARY ABNORMALITY. Impression dictated by: Elliott Mehta Jr., D.O.07/20/2024 4:38 PM Dictation Location: [facility]--18 Transcribed By: [facility] 07/20/24 1638 Dictated By: Elliott Mehta Jr, DO 07/20/24 1637 Signed By: 07/20/24 1638 Normal [facility] Coding Summaryon 07-05-2024 Coding Summary HTMLBase 64 NvjwactpMEr7nQh+PGhlYWQ+P I3XUXUhQ35nbIEuoX6nL2IZOU lOSywgQVBQTElOSyIgbmFtZT1 kaXNjZXJu IC8+GF6iVEMeRzcccFYqi7Y9i PX4Q75cfo1xMMtxqNR3QTTjPw Dfaczhu3orqEq2TNuqXzjnDyM t QOXteP52JZM7cC84Kf95pCZri HXlz6dfoKw7NoSyMLEgYZI5fA gbHEzbn8FcIIKjT05bxUAbu1O 6 JXNlfFkxmKLmHoGrfUD5kP4oE Ncleftwl4xjywcgLtw6bv31zP Gku2R7bAO8D3BdxbT9QJXfiIL g VyuwpZSRvA7cboqkv5kjlzxgX fInSAGyLWj0FPc3EAGsnPghBl QfZO67GQJ6JTWhswWhU1FlPCI s gOpiSlS6r3O2Wd8UH7UMScjwF 1VNTUFSWTwvdGQ+KF59sx14E6 JeRsjzPyz6TSSbPKZ9wGJ5xM8 n VXFyYVgde9V1wDW1V7BicsDho a9jw0duTWRpRCzhQ46lrYFnx6 B6KWZtuCQ9OWFkaSkuQpTjrU3 3 Oyc+SNAjgHfuv5DmXrhaw1kwo 7yjrVv3XyurMDGnfbWbpDksFB B0w5LeGn8aXVIkoXF4kLG3rV5 i SvRoNxB1NWrmX752NcNlkCOuP afsP68kW7CsqRZ+GKRbNos3SK AxpJiwZK5vZ4RmOETlhkekrOX m iSzxGG5eDQNkiwejHGPoqU2hU QZhH0o4RoNkXxS8XGzoB0KnEB JsyauxKw80zV5kJsLzYwS8GLw u F6PvkfR4PRCctDXyFRgfXOP7J 15dp4Q8DNEsXTHzGXV2uLQ0fZ 1hbGlnbjogbGVmdDsgdmVydGl j JJdwQLvcC457DSBntOkkKpTuS GluZyBEYXRlOiAgMTEvMjUvMj AyNDwvdGQ+UPPiSID7nPmvJMM n tUGeRZqqMn5ikPhiqWdqRD2aX GKtmkhqYKZcpA6hAGTsnTRglB ahWV8gKPReinkhi372WhMtVML 0 AWPcsIAkH2WqqC9dKgLxNPGoH WQlO0GpoKQvVSpfE570OEetJc G7GPVlrrLdH5TzMOAslNcaKtI 0 r4Z5Sx0Us0BrwygyN3RofMZgC wDcXjpzWAf6I4PvLlndfYE+PC 44WRMxLY66RKo6XYQ3cWoyOZo i FSSiP1EeaB2pGpKwRTZbQVQoI yc+PHRhYmxlIHdpZHRoPScxMD ImPoDfaNxbKY6bIh7yHHDoLPV v jYnauKTaEfZvu7nvJYNlVAlnP T7teEcfQ0BmtLM8XFHjq9y6Br 49B82rO6TfrPA+BHIqtEJ8rKM 0 nH0xLlOaIuN4AWyfK429CsPnr ZVfZtbjs8xos4ocgSs8NcM6YP BtnmCfhVtsMJZ1f1OiAa25B28 s IHdpZHRoPSIxNSUiIHZhbGlnb e3hyX2gQw1+RHLztEN7vYI7sH 8oMcUsXpO6DBvpA672TbXooJF v Ciqrk1eqz6kikWh8VfXcSKUge qXlnKklDHO7h4ZnAt14F1XdpL uus9QyWau0ed05jGHbs3D3yBF 9 U1GdIADromvdwDReeVzwBF5iN BAijspeWFZrgT9yOYCsD1m5Ou ElPbZ1MRtyN5LsyaA8EVEtwGP g KNEwnRNKyY9okcjue0psezpaS oJxJQYeRPl5PJu4LQIppNqjOi JgCBP2IhD5XHZ5sTUsbO4otMu n qtzwvM8iHzt+QAM0bMJigNZBR Z0cIqsofKN+WWIyRZR4uUaqNY heNKOovV8mXWChU4i5FmOkJxD 1 BElxT8BnenU3VGZcyEXcULLsw CFJiZ8nybfih7hgyyzrNzEqLD PkUVe3ABb9RZNudSxzRhAjBRB 0 AjZ7QRN8jPUsaB3ggQdxcdkee G9wOyc+XggztSjmJXV0DWs3X2 RqGug2OPZxeEkhAC8gdQQvLWl u Xk2wyOhkaQbbXB5oUMHbramjk 682OkBee8beVAIevPYbOTmnLE M8P58ix3N9KQTpCOCuRMI0pAM 4 vP3vtXriugngbRTzeMtxcuVam GizOCoeYNcpM653XIEbwEdeIy IuLSw2C9PaYow4LEVfgLxzYC9 n dJAoCGiePd5bjUavdVcmMS1uJ EWnmfiov480UbCmf3drQWTfwU QgCHxaHRR4T03ea2E6DJFaEXB w ENN5uRU4bZ4afHlwpwubmPMks SgeheFhtZksCUtxFSufC257JO AuaLncAfSguLg7C7ElXtn7WFK z kOgmCB9axNZhDTfhBh6fsDzmk NytBE5kJHDglrunk364HrCep9 peTHSwyDOkMZvdWCQ2U20ih2B 6 JHTdKSLfNQD9mGO7aG7yqTqpj jogbGVmdDsgdmVydGljYWwtYW dhJ839KHAquEcvUcVshIocwsK g PMafWQe9N9SdVmgnjXJ+PC90Y JMtAJ04zCJejUAsj1cziKw7Oj UdRWLaBQS1vFbpSAcii9NiCYS t G15inFRla2B1YOLyiPdclEFwI dHmqUD7hR5pIGdvwxoec2ewgy yuZwroj5fdau22lT05Q35bAXu p ASMlEZDoNSPhKKFruJsmyy6pj G9wIi8+YETqaZX8iQI9kP7eRI AdSqX5VZkbN432EiTvcHKuTxa j i9quf8dcwMw4ExQ5LZJuheMgp GklHCE9f9UvZj41C34qMBzkUM FjMXSuBAEiTHPuqGkfvu5zhV4 w Ii8+JVFzeBR7vTK5mB2bMgZvX jC4XZddM405FxEryLOxAypzM5 6lK8MxtBI+CHAvMaz8RRIilUr s SE8lmQQoIPbiWj4qBUH3DcUfX mNtDKqqX5XgWFUvlnhrlenvcF J9XJSmGMAaqB61Sd5mgVdiEMM w gMHAhF2zbfzqm7djasmwCqSiP CIgPFt5XVx6IEKrcSnaSbSkPB I3TmS5OFK8bYJwmP9mxHmisir g oM2xP6KkUDXsxvouFu14eW5gS pWhInC2CKcfDrd+J7SHD6ilPB SUAfEIQVRKJF80DM81tQOeb3H 5 qQJ0Y9OsMDTedrinqrzmaRL5P WFyKGIlpU15oIJrEJezFz8ef4 H4g318YLGoNKOmxJ66Dd0yqAw g KUBstYPBgE7ujvotm3wxgsybF yScXTAuHVu7CCf1WCVjfHajFy FzGLZ1AhH3OPS8oTHwuH5qjNj n phoyeY3yNvy+AFGaFCSeJFg4X DwvdGQ+NTHlOVU4hUyvNVgbIW XcvU1mYEMnS8v2LjCyXtU2KSm u E7WkOWDzfmedBd42oL4oXoIpY qI9XKarY4HplaY2RGEjzGOfRF soHTU7A33yz3A1OJJsQTEfXYZ 7 aEE0aX4yiAfiscvdbGIovWfwt tWqqEytBDwcHIqmI065EKNziI kpMcCyGFfjGZCoKF92IX44aVY g m6M5dFT4S9PpISFwetsbwmsul ZU6MYEaQXEasN27kTZeUYekTy 3ky4Y0i871WHDsIRYprA36Ie0 u xXorRDByiAHBhV3aivcab9ati zerFoUgEBSvCWd4RMs0VYCvtX cfXgWtWBP4IpZ7WCR3vNEwdO0 h gLucvhkswO3tOli+RkVNQUxFP U67WW33pHXym9M3nFR4F3MdGZ TbvvvhyylmwTT6FJAlQNMppQ3 7 jSYpEXejPf1wt2A2y452RXCuR QWjvO67Ue3ncGnqENNxrSTNaW 4ojsjud7yiftlsWbRbZRPzYPu 0 HLk2NQWbmMvlSaQyYEO4AbV9E HH1tMMniK8fjGadcmkljD9tRp c+J2D0A1HeLfdniCZ+GI11NCI s QD36dXKbnVQnh7gtpFv3VfCsT FOpCWI8mKpvZPzgj8OiHAEiW0 4iyWMeu8B2DQNlrRoznYMuEuQ l mIO2oI0tYKpllgrvb4qfqbraG ozfk7ipem65nB48P47xPGmmHR ZiNPEbAPYcHPUupKdzvx3izP7 w Ii8+JSPbgZL0tSV4jA0aYbYaC vB6PWmtN343ZgKlxFJiCfxlr9 nyf1anyTk0MnAgHCOyueVkeUq u TST3e6FdRy64Q66iGVdkXRTmF CGrEGViFLAmnMxgri0jzM1uEq 8+CW7rd9kyqk79hZ26sDI+PHR k XIH6cYwvFJejUWDzlR0zOCmyC rP1KWJhXiTxkZ63qRRgBFhcMi 2kdWirgKkhTK8uSXLhpeecq97 0 FuYue0cjBXSmlUAdUAliBCG6O 13tm8M7WHAePMPsZJH5xOS8uG 1hbGlnbjogbGVmdDsgdmVydGl j PYrbOLgfL209NZOvrOshCeLdp BQpB2mimoLDFS2gOskbhBQ+PH LxMZX7aVcpJWsvBGWgfI1bSUU p X2a3OmWcNjR0GCuiY5YoaaH9R SDosGBaRGTucVAMmT3uuqxle2 haikysMdZdBHCbRBo4DWn9TXG s aNsbAmMzEDO7BwE4HSH7vFTht E4jeMmiaueywG5oLbx+RklOOj wvdGQ+WNTcTKJ5tIzpZLshVZJ k aD9tFAFcE5q5OqSwRrG8ONnfN 0CawnV0BGZyxLAoPFWmfZLQfM 7rnuztb2jxhcudOiKdTLEpBDs 0 YLz6XEJicZlpThBpRZD2PpR1H SS3bLFfdW2wwIpbodrejH7ySy c+TVJOOjwvdGQ+LAWtPPM2nEl l QTwmPZBzeC6iRQHrP3a5LtCxL sR9GQrhO8XqrgE0HRElrZLnHY FygZXXrK2gbhspn8ivffagShM w NKFvEDc0FVw3GUBekXaiDwXfZ HZ0OyX2EUQ4hADvpT1glWwudh fkgI2mFur+ZBJ8DMT9VA27HA0 8 D3ZuKbqqgLVkwCR+PHRhYmxlI HdpZHRoPScxMDAlJyBzdHlsZT [id number] (more content not included)... Normal [facility] CASE MANAGEMon 07-02-2024 CASE MANAGEM Normal [facility] CNDSon 07-02-2024 CNDS Normal [facility] THERAPY NTon 07-02-2024 THERAPY NT Normal [facility] CASE MGT INIT ASSESon 2023 CASE MGT INIT ASSES Normal [facility] CONSULTon 07-01-2024 CONSULT Normal [facility] MONOCLONAL PROT UR W/INTERPo n 07-01-2024 STAFF REVIEW (PA) Reviewed by Sheeba Bar MD Normal [facility] Comment on above: Order Comment: Speci men Type: URINE SPECIMENOrdering Facility: [facility] Address: [address] [place] [address] Performed By: #### U RMPA ####[facility] [id number] [place] [address] [place] UMPA RESULT No M protein is identified. Normal No M protein is identified. [facility] Comment on above: Order Comment: Speci men Type: URINE SPECIMENOrdering Facility: [facility] Address: [address] [place] [address] Performed By: #### U RMPA ####[facility] [id number] [place] [address] [place] Prot Ur-mCncon 07-01-2024 Protein (U) [Mass/Vol] 9 mg/dL Normal 0-20 [facility] Comment on above: Order Comment: Speci men Type: URINE SPECIMENOrdering Facility: [facility] Address: [address] [place] [address] Performed By: #### 2 888-6 ####[facility] [id number] [place] [address] [place] URINE PROTEIN ELECTROPHORESI S RANDOM (P)on 07-01-2024 Albumin Elph (U) [Mass fraction] 66.22 % Normal [facility] Comment on above: Order Comment: Speci men Type: URINE SPECIMENOrdering Facility: [facility] Address: [address] [place] [address] Performed By: #### L [id number] ####[facility] [id number] [place] [address] [place] Alpha 1 globulin Elph (U) [Mass fraction] 2.94 % Normal [facility] Comment on above: Order Comment: Speci men Type: URINE SPECIMENOrdering Facility: [facility] Address: [address] [place] [address] Performed By: #### L [id number] ####[facility] [id number] [place] [address] [place] Alpha 2 globulin Elph (U) [Mass fraction] 7.62 % Normal [facility] Comment on above: Order Comment: Speci men Type: URINE SPECIMENOrdering Facility: [facility] Address: [address] [place] [address] Performed By: #### L [id number] ####[facility] [id number] [place] [address] [place] Beta globulin Elph (U) [Mass fraction] 15.00 % Normal [facility] Comment on above: Order Comment: Speci men Type: URINE SPECIMENOrdering Facility: [facility] Address: [address] [place] [address] Performed By: #### L [id number] ####[facility] [id number] [place] [address] [place] Gamma globulin Elph (U) [Mass fraction] 8.22 % Normal [facility] Comment on above: Order Comment: Speci men Type: URINE SPECIMENOrdering Facility: [facility] Address: [address] [place] [address] Performed By: #### L [id number] ####[facility] [id number] [place] [address] [place] Protein Fractions Elph Vasyl (U) [Interp] No definitive M protein is identified on protein electrophoresis. Normal No definitive M protein is identified on protein electrophor esis. [facility] Comment on above: Order Comment: Speci men Type: URINE SPECIMENOrdering Facility: [facility] Address: [address] [place] [address] Performed By: #### L [id number] ####[facility] [id number] [place] [address] [place] STAFF REVIEW (URINE ELECTRO) Reviewed by Sheeba Bar MD Normal [facility] Comment on above: Order Comment: Speci men Type: URINE SPECIMENOrdering Facility: [facility] Address: [address] [place] [address] Performed By: #### L [id number] ####[facility] [id number] [place] [address] [place] CBC W Auto Differential pane l (Bld)on 06-30-2024 Basophils (Bld) [#/Vol] 0.10 10*3/uL Normal <0.11 [facility] Comment on above: Order Comment: Speci men Type: BLOOD SPECIMENOrdering Facility: [facility] Address: [address] [place] [address] Performed By: #### 5 7021-8, 4048-3 ####[facility] [id number] [place] [address] [place] Basophils/100 WBC (Bld) 1.3 % Normal [facility] Comment on above: Order Comment: Speci men Type: BLOOD SPECIMENOrdering Facility: [facility] Address: [address] [place] [address] Performed By: #### 5 7021-8, 4048-3 ####[facility] [id number] [place] [address] [place] Differential cell count method Nom (Bld) Auto Normal [facility] Comment on above: Order Comment: Speci men Type: BLOOD SPECIMENOrdering Facility: [facility] Address: [address] [place] [address] Performed By: #### 5 7021-8, 4048-3 ####[facility] [id number] [place] [address] [place] Eosinophils (Bld) [#/Vol] 0.91 10*3/uL High <0.46 [facility] Comment on above: Order Comment: Speci men Type: BLOOD SPECIMENOrdering Facility: [facility] Address: [address] [place] [address] Performed By: #### 5 7021-8, 4048-3 ####[facility] [id number] [place] [address] [place] Eosinophils/100 WBC (Bld) 11.6 % Normal [facility] Comment on above: Order Comment: Speci men Type: BLOOD SPECIMENOrdering Facility: [facility] Address: [address] [place] [address] Performed By: #### 5 7021-8, 4048-3 ####[facility] [id number] [place] [address] [place] Erythrocyte distribution width (RBC) [Ratio] 13.2 % Normal 11.5-15.0 [facility] Comment on above: Order Comment: Speci men Type: BLOOD SPECIMENOrdering Facility: [facility] Address: [address] [place] [address] Performed By: #### 5 7021-8, 4048-3 ####[facility] [id number] [place] [address] [place] Hematocrit (Bld) [Volume fraction] 46.1 % High 36.0-46.0 [facility] Comment on above: Order Comment: Speci men Type: BLOOD SPECIMENOrdering Facility: [facility] Address: [address] [place] [address] Performed By: #### 5 7021-8, 404-3 ####[facility] [id number] [place] [address] [place] Hemoglobin (Bld) [Mass/Vol] 15.5 g/dL Normal 11.5-15.5 [facility] Comment on above: Order Comment: Speci men Type: BLOOD SPECIMENOrdering Facility: [facility] Address: [address] [place] [address] Performed By: #### 5 7021-8, 9-3 ####[facility] [id number] [place] [address] [place] Immature granulocytes (Bld) [#/Vol] 0.03 10*3/uL Normal <0.10 [facility] Comment on above: Order Comment: Speci men Type: BLOOD SPECIMENOrdering Facility: [facility] Address: [address] [place] [address] Performed By: #### 5 7021-8, 4048-3 ####[facility] [id number] [place] [address] [place] Immature granulocytes/100 WBC (Bld) 0.4 % Normal [facility] Comment on above: Order Comment: Speci men Type: BLOOD SPECIMENOrdering Facility: [facility] Address: [address] [place] [address] Performed By: #### 5 7021-8, 3 ####[facility] [id number] [place] [address] [place] Lymphocytes (Bld) [#/Vol] 1.94 10*3/uL Normal 1.00-4.00 [facility] Comment on above: Order Comment: Speci men Type: BLOOD SPECIMENOrdering Facility: [facility] Address: [address] [place] [address] Performed By: #### 5 7021-8, 4048-3 ####[facility] [id number] [place] [address] [place] Lymphocytes/100 WBC (Bld) 24.7 % Normal [facility] Comment on above: Order Comment: Speci men Type: BLOOD SPECIMENOrdering Facility: [facility] Address: [address] [place] [address] Performed By: #### 5 7021-8, 4048-3 ####[facility] [id number] [place] [address] [place] MCH (RBC) [Entitic mass] 29.5 pg Normal 26.0-34.0 [facility] Comment on above: Order Comment: Speci men Type: BLOOD SPECIMENOrdering Facility: [facility] Address: [address] [place] [address] Performed By: #### 5 7021-8, 4048-3 ####[facility] [id number] [place] [address] [place] MCHC (RBC) [Mass/Vol] 33.6 g/dL Normal 30.5-36.0 [facility] Comment on above: Order Comment: Speci men Type: BLOOD SPECIMENOrdering Facility: [facility] Address: [address] [place] [address] Performed By: #### 5 7021-8, 3 ####[facility] [id number] [place] [address] [place] MCV (RBC) [Entitic vol] 87.6 fL Normal 80.0-100.0 [facility] Comment on above: Order Comment: Speci men Type: BLOOD SPECIMENOrdering Facility: [facility] Address: [address] [place] [address] Performed By: #### 5 7021-8, 4048-3 ####[facility] [id number] [place] [address] [place] Monocytes (Bld) [#/Vol] 0.53 10*3/uL Normal <0.87 [facility] Comment on above: Order Comment: Speci men Type: BLOOD SPECIMENOrdering Facility: [facility] Address: [address] [place] [address] Performed By: #### 5 7021-8, 4048-3 ####[facility] [id number] [place] [address] [place] Monocytes/100 WBC (Bld) 6.7 % Normal [facility] Comment on above: Order Comment: Speci men Type: BLOOD SPECIMENOrdering Facility: [facility] Address: [address] [place] [address] Performed By: #### 5 7021-8, 4048-3 ####[facility] [id number] [place] [address] [place] Neutrophils (Bld) [#/Vol] 4.36 10*3/uL Normal 1.45-7.50 [facility] Comment on above: Order Comment: Speci men Type: BLOOD SPECIMENOrdering Facility: [facility] Address: [address] [place] [address] Performed By: #### 5 7021-8, 3 ####[facility] [id number] [place] [address] [place] Neutrophils/100 WBC (Bld) 55.3 % Normal [facility] Comment on above: Order Comment: Speci men Type: BLOOD SPECIMENOrdering Facility: [facility] Address: [address] [place] [address] Performed By: #### 5 7021-8, 3 ####[facility] [id number] [place] [address] [place] Nucleated RBC (Bld) [#/Vol] 10*3/uL Normal <0.01 [facility] Comment on above: Order Comment: Speci men Type: BLOOD SPECIMENOrdering Facility: [facility] Address: [address] [place] [address] Performed By: #### 5 7021-8, 4048-3 ####[facility] [id number] [place] [address] [place] Nucleated RBC/100 WBC (Bld) [Ratio] 0.0 /100 WBC Normal [facility] Comment on above: Order Comment: Speci men Type: BLOOD SPECIMENOrdering Facility: [facility] Address: [address] [place] [address] Performed By: #### 5 7021-8, 4049-3 ####[facility] [id number] [place] [address] [place] Platelet mean volume (Bld) [Entitic vol] 10.1 fL Normal 9.0-12.7 [facility] Comment on above: Order Comment: Speci men Type: BLOOD SPECIMENOrdering Facility: [facility] Address: [address] [place] [address] Performed By: #### 5 7021-8, 4049-3 ####[facility] [id number] [place] [address] [place] Platelets (Bld) [#/Vol] 302 10*3/uL Normal 150-400 [facility] Comment on above: Order Comment: Speci men Type: BLOOD SPECIMENOrdering Facility: [facility] Address: [address] [place] [address] Performed By: #### 5 7021-8, 4049-3 ####[facility] [id number] [place] [address] [place] RBC (Bld) [#/Vol] 5.26 10*6/uL High 3.90-5.20 [facility] Comment on above: Order Comment: Speci men Type: BLOOD SPECIMENOrdering Facility: [facility] Address: [address] [place] [address] Performed By: #### 5 7021-8, 4049-3 ####[facility] [id number] [place] [address] [place] WBC (Bld) [#/Vol] 7.87 10*3/uL Normal 3.70-11.00 [facility] Comment on above: Order Comment: Speci men Type: BLOOD SPECIMENOrdering Facility: [facility] Address: [address] [place] [address] Performed By: #### 5 7021-8, 4049-3 ####[facility] [id number] [place] [address] [place] CNOVon 06-30-2024 CNOV Normal [facility] metabolic 2000 panelon 06-30-2024 Albumin [Mass/Vol] 4.7 g/dL Normal 3.9-4.9 [facility] Comment on above: Order Comment: Speci men Type: BLOOD SPECIMENOrdering Facility: [facility] Address: [address] [place] [address] Performed By: #### 1 9123-9, 33430-9 ####[facility] [id number] [place] [address] [place] ALP [Catalytic activity/Vol] 124 U/L High 34-123 [facility] Comment on above: Order Comment: Speci men Type: BLOOD SPECIMENOrdering Facility: [facility] Address: [address] [place] [address] Performed By: #### 1 9123-9, 63883-0 ####[facility] [id number] [place] [address] [place] ALT [Catalytic activity/Vol] 20 U/L Normal 7-38 [facility] Comment on above: Order Comment: Speci men Type: BLOOD SPECIMENOrdering Facility: [facility] Address: [address] [place] [address] Performed By: #### 1 9123-9, 92425-7 ####[facility] [id number] [place] [id number] [place] Anion gap [Moles/Vol] 13 mmol/L Normal 8-15 [facility] Comment on above: Order Comment: Speci men Type: BLOOD SPECIMENOrdering Facility: [facility] Address: [address] [place] [address] Performed By: #### 1 9123-9, ####[facility] [id number] [facility] [place] [address] [place] AST [Catalytic activity/Vol] 26 U/L Normal 13-35 [facility] Comment on above: Order Comment: Speci men Type: BLOOD SPECIMENOrdering Facility: [facility] Address: [address] [place] [address] Result Comment: Resu lts may be falsely increased due to interference from hemolysis. Suggest reorder as clinically indicated. Performed By: #### 1 9123-9, 97595-1 ####[facility] [id number] [facility] [place] [address] [place] Bilirubin [Mass/Vol] 0.2 mg/dL Normal 0.2-1.3 [facility] Comment on above: Order Comment: Speci men Type: BLOOD SPECIMENOrdering Facility: [facility] Address: [address] [place] [address] Performed By: #### 1 9123-9, 53830-1 ####[facility] [id number] [facility] [place] [address] [place] Calcium [Mass/Vol] 10.3 mg/dL High 8.5-10.2 [facility] Comment on above: Order Comment: Speci men Type: BLOOD SPECIMENOrdering Facility: [facility] Address: [address] [place] [address] Performed By: #### 1 9123-9, ####[facility] [id number] [facility] [place] [id number] [place] Chloride [Moles/Vol] 103 mmol/L Normal 98-107 [facility] Comment on above: Order Comment: Speci men Type: BLOOD SPECIMENOrdering Facility: [facility] Address: [address] [place] [address] Performed By: #### 1 9123-9, 47868-7 ####[facility] [id number] [place] [address] [place] CO2 [Moles/Vol] 20 mmol/L Low 22-30 [facility] Comment on above: Order Comment: Speci men Type: BLOOD SPECIMENOrdering Facility: [facility] Address: [address] [place] [address] Performed By: #### 1 9123-9, ####[facility] [id number] [place] [address] [place] Creatinine [Mass/Vol] 1.00 mg/dL High 0.58-0.96 [facility] Comment on above: Order Comment: Speci men Type: BLOOD SPECIMENOrdering Facility: [facility] Address: [address] [place] [address] Performed By: #### 1 9123-9, 42665-8 ####[facility] [id number] [address] [place] Creatinine and Glomerular filtration rate.predicted panel (S/P/Bld) 68 mL/min/1.73m??? Normal >=60 [facility] Comment on above: Order Comment: Speci men Type: BLOOD SPECIMENOrdering Facility: [facility] Address: [address] [place] [address] Result Comment: Anna mated Glomerular Filtration Rate (eGFR) is calculated using the 2020 CKD-EPI creatinine equation. This equation utilizes serum creatinine, sex, and age as parameters. The creatinine assay has traceable calibration to isotope dilution-mass spectrometry. Refer to KDIGO guidelines for clinical interpretation. In patients with unstable renal function, e.g. those with acute kidney injury, the eGFR may not accurately reflect actual GFR. Performed By: #### 1 9123-9, 76240-4 ####[facility] [id number] [address] [address] [place] Glucose [Mass/Vol] 107 mg/dL High 74-99 [facility] Comment on above: Order Comment: Speci men Type: BLOOD SPECIMENOrdering Facility: [facility] Address: [address] [place] [address] Result Comment: The [place] [employer] (ADA) provides guidance for cutoff values for fasting glucose and random glucose. The ADA defines fasting as no caloric intake for at least 8 hours. Fasting plasma glucose results between 100 to 125 mg/dL indicate increased risk for diabetes (prediabetes).Fasting plasma glucose results greater than or equal to 126 mg/dL meet the criteria for diagnosis of diabetes. In the absence of unequivocal hyperglycemia, results should be confirmed by repeat testing. In a patient with classic symptoms of hyperglycemia or hyperglycemic crisis, random plasma glucose results greater than or equal to 200 mg/dL meet the criteria for diagnosis of diabetes.Reference: Standards of Medical Care in Diabetes 2016, [place] [employer]. Diabetes Care. 2016.39(Suppl 1). Performed By: #### 1 9123-9, 75523-4 ####[facility] [id number] [place] [address] [place] Potassium [Moles/Vol] 4.1 mmol/L Normal 3.7-5.1 [facility] Comment on above: Order Comment: Speci men Type: BLOOD SPECIMENOrdering Facility: [facility] Address: [address] [place] [address] Performed By: #### 1 9123-9, 81093-2 ####[facility] [id number] [place] [address] [place] Protein [Mass/Vol] 8.8 g/dL High 6.3-8.0 [facility] Comment on above: Order Comment: Speci men Type: BLOOD SPECIMENOrdering Facility: [facility] Address: [address] [place] [address] Performed By: #### 1 9123-9, ####[facility] [id number] [address] [address] [place] Sodium [Moles/Vol] 136 mmol/L Normal 136-144 [facility] Comment on above: Order Comment: Speci men Type: BLOOD SPECIMENOrdering Facility: [facility] Address: [address] [place] [address] Performed By: #### 1 9123-9, 87877-1 ####[facility] [id number] [place] [address] [place] Urea nitrogen [Mass/Vol] 15 mg/dL Normal 7-21 [facility] Comment on above: Order Comment: Speci men Type: BLOOD SPECIMENOrdering Facility: [facility] Address: [address] [place] [address] Performed By: #### 1 9123-9, 42781-1 ####[facility] [id number] [place] [address] [place] ECG COMPLETEon 06-30-2024 ECG COMPLETE Normal [facility] ED NOTEon 06-30-2024 ED NOTE HNO ID: [id number] Author: ROSA ISELA WHYTE, HERMILO Service: Emergency Medicine Author Type: Registered Nurse Type: ED Notes Filed: 06/30/2024 11:57 Note Text: Xray at bedside. Normal [facility] ED PROV NOTEon 06-30-2024 ED PROV NOTE Normal [facility] HISTORY PHYSICALon HISTORY PHYSICAL Normal [facility] IMMUNOFIXATION SCREEN, SERUM on 06-30-2024 MPA RESULT No M protein is identified. Normal No M protein is identified. [facility] Comment on above: Order Comment: Speci men Type: BLOOD SPECIMENOrdering Facility: [facility] Address: [address] [place] [address] Performed By: #### I [facility] ####[facility] [id number] [address] [id number] [address] [place] STAFF REVIEW (MPA) Reviewed by Sheeba Bar MD [facility] Comment on above: Order Comment: Speci men Type: BLOOD SPECIMENOrdering Facility: [facility] Address: [address] [place] [address] Performed By: #### I FES ####[facility] [id number] [place] [address] [place] KAPPA/CALDWELL,FREE,SERon 2023 Immunoglobulin light chains.kappa.free (S) [Mass/Vol] 27.5 mg/L High 3.3-19.4 [facility] Comment on above: Order Comment: Speci men Type: BLOOD SPECIMENOrdering Facility: [facility] Address: [address] [place] [address] Result Comment: Rare ly, increased serum free light chains levels may not be detected or accurately quantified due to prozone phenomenon or in high viscosity samples using this immunoturbidimetric assay. Correlation with other laboratory results and clinical findings is recommended.The Regal Free Light Chain was performed using the Binding Site Optilite immunoturbidimetric method. Result obtained with different assay methods or kits cannot be used interchangeably. Performed By: #### K LFRS ####[facility] [id number] [place] [address] [place] Immunoglobulin light chains.kappa/Immunoglob ulin light chains.lambda (S) [Mass ratio] 1.30 Normal 0.26-1.65 [facility] Comment on above: Order Comment: Speci men Type: BLOOD SPECIMENOrdering Facility: [facility] Address: [address] [place] [address] Performed By: #### K LFRS ####[facility] [id number] [place] [address] [place] Immunoglobulin light chains.lambda.free [Mass/Vol] 21.1 mg/L Normal 5.7-26.3 [facility] Comment on above: Order Comment: Speci men Type: BLOOD SPECIMENOrdering Facility: [facility] Address: [address] [place] [address] Result Comment: Rare ly, increased serum free light chains levels may not be detected or accurately quantified due to prozone phenomenon or in high viscosity samples using this immunoturbidimetric assay. Correlation with other laboratory results and clinical findings is recommended.The Lambda Free Light Chain was performed using the Binding Site Optilite immunoturbidimetric method. Result obtained with different assay methods or kits cannot be used interchangeably. Performed By: #### K LFRS ####[facility] [id number] [place] [address] [place] [facility] Magnesium [Mass/Vol] 1.8 mg/dL Normal 1.7-2.3 [facility] Comment on above: Order Comment: Speci men Type: BLOOD SPECIMENOrdering Facility: [facility] Address: [address] [place] [address] Performed By: #### 1 9123-9, 63189-2 ####[facility] [id number] [place] [address] [place] NITRIC OXIDE, EXHALEDon 11-2 Rosie Junior, [employer]IS[employer] SUPERVISOR 06/30/2024 8:16 AM RESPIRATORY THERAPY ORAL EXHALED NITRIC OXIDE SERVICE DATE: 06/30/2024 SERVICE TIME: 8:16 AM Oral Exhaled Nitric Oxide measurement: 69.0 (ppb) (A) Normal: Adult <25 ppb, pediatric (<12 years) <20 ppb High Normal / Increased: Adult 25-50 ppb, pediatric (<12 years) 20-35 ppb Moderately raised exhaled Nitric Oxide may indicate underlying inflammation, but note that: Cold and influenza can raise exhaled Nitric Oxide and some patients have higher baseline exhaled Nitric Oxide levels than others. High: Adult >50 ppb, pediatric (<12 years) >35 ppb Indicative of ongoing eosinophilic inflammation. Symptomatic patient likely to respond to steroids. Possible causes (if already on steroids): Poor compliance, recent allergen exposure, steroid dose inadequate, and steroid resistance. Note that not all patients with high exhaled nitric oxide levels display symptoms. Oral Exhaled Nitric Oxide measurement (Previous Encounters) Test Date Oral Exhaled Nitric Oxide (ppb) 06/30/2024 69.0 (A) NAME: Rosie Junior, [employer]ENDING [employer]IS[employer] SUPERVISOR PATIENT NAME: Meredith Chaidez DATE: June 30, 2024 TIME: 8:16 AM [facility] PROTEIN ELECTROPHORESIS SERU M (P)on 06-30-2024 Albumin [Mass/Vol] 3.96 g/dL Normal 3.43-5.41 [facility] Comment on above: Order Comment: Speci men Type: BLOOD SPECIMENOrdering Facility: [facility] Address: [address] [place] [address] Performed By: #### L [id number] ####[facility]IA [id number] [place] [address] [place] Alpha 1 globulin Elph [Mass/Vol] 0.23 g/dL Normal 0.18-0.43 [facility] Comment on above: Order Comment: Speci men Type: BLOOD SPECIMENOrdering Facility: [facility] Address: [address] [place] [address] Performed By: #### L [id number] ####[facility] [id number] [place] [address] [place] Alpha 2 globulin Elph [Mass/Vol] 0.69 g/dL Normal 0.42-0.98 [facility] Comment on above: Order Comment: Speci men Type: BLOOD SPECIMENOrdering Facility: [facility] Address: [address] [place] [address] Performed By: #### L [id number] ####[facility] [id number] [place] [address] [place] Beta globulin Elph [Mass/Vol] 1.19 g/dL High 0.61-1.17 [facility] Comment on above: Order Comment: Speci men Type: BLOOD SPECIMENOrdering Facility: [facility] Address: [address] [place] [address] Performed By: #### L [id number] ####[facility] [id number] [place] [address] [place] Gamma globulin Elph [Mass/Vol] 1.23 g/dL Normal 0.53-1.51 [facility] Comment on above: Order Comment: Speci men Type: BLOOD SPECIMENOrdering Facility: [facility] Address: [address] [place] [address] Performed By: #### L [id number] ####[facility]IA [id number] [place] [address] [place] M-PROTEIN LOCATION Normal [facility] Comment on above: Order Comment: Speci men Type: BLOOD SPECIMENOrdering Facility: [facility] Address: [address] [place] [address] Result Comment: Not Applicable. Performed By: #### L [id number] ####[facility]IA [id number] [place] [address] [place] Protein Fractions [Interp] No definitive M protein is identified on protein electrophoresis. Normal No definitive M protein is identified on protein electrophor esis. [facility] Comment on above: Order Comment: Speci men Type: BLOOD SPECIMENOrdering Facility: [facility] Address: [address] [place] [address] Performed By: #### L [id number] ####[facility]IA [id number] [place] [address] [place] Protein.monoclonal Elph [Mass/Vol] 0.00 g/dL Normal <=0.00 [facility] Comment on above: Order Comment: Speci men Type: BLOOD SPECIMENOrdering Facility: [facility] Address: [address] [place] [address] Performed By: #### L [id number] ####[facility] [id number] [place] [address] [place] SPE STAFF REVIEW Reviewed by Sheeba Bar MD Normal [facility] Comment on above: Order Comment: Speci men Type: BLOOD SPECIMENOrdering Facility: [facility] Address: [address] [place] [address] Performed By: #### L [id number] ####[facility] [id number] [place] [address] [place] Prot SerPl-mCncon 06-30-2024 Protein [Mass/Vol] 7.3 g/dL Normal 6.3-8.0 [facility] Comment on above: Order Comment: Speci men Type: BLOOD SPECIMENOrdering Facility: [facility] Address: [address] [place] [address] Performed By: #### 2 885-2 ####[facility] [id number] [place] [address] [place] Resp path 12b Pnl Spec JAMES+p robeon 06-30-2024 Respiratory pathogens DNA and RNA 12b panel JAMES+probe (Unsp spec) Normal [facility] Comment on above: Performed By: #### 6 0566-7 ####[facility] [id number] [place] [address] [place] THERAPY NTon 06-30-2024 THERAPY NT Normal [facility] Theophylline SerPl-mCncon Theophylline [Mass/Vol] 9.3 ug/mL Low 10.0-20.0 [facility] Comment on above: Order Comment: Speci men Type: BLOOD SPECIMENOrdering Facility: [facility] Address: [address] [place] [address] Result Comment: Refe rence ranges and high/low indicator flags are provided as general guidelines only. The treating physician must determine appropriate target levels/dosing based on the specific clinical situation. Performed By: #### 5 7021-8, 4049-3 ####[facility] [id number] [place] [address] [place] XR CHEST 1V FRONTAL PORTon 1 08-30-2023 XR CHEST 1V FRONTAL PORT Normal [facility] Provider Orderson 06-29-2024 Provider Orders [id number] FF Normal [facility] XR Abdomen Single View (KUB) on 06-29-2024 XR Abdomen Single View (KUB) EXAMINATION: XR Abdomen Single View (KUB) HISTORY: CALCULUS OF KIDNEY AND URETER COMPARISON: CT abdomen pelvis 11/04/2023 FINDINGS: KIDNEY/URETER - RIGHT: No visible renal or ureteral calcifications. KIDNEY/URETER - LEFT: No visible renal or ureteral calcifications. PELVIS: Grossly stable pelvic calcifications favoring phleboliths. BOWEL: No abnormal dilation or deviation. BONES: No acute abnormality. OTHER: Negative. No abnormal gaseous collections. IMPRESSION: 1. No appreciable urinary tract calculi. Final Dictated by: Kyra Urbano MD Dictated DT/TM: 07/03/24 8:44 Signed (Electronic Signature): Kyra Urbano MD 07/03/24 8:47 am Technologist: Toni HERMOSILLO Normal [facility] ED NOTEon 06-24-2024 ED NOTE Normal [facility] ED NOTE Normal [facility] Basic metabolic 2000 panelon 06-23-2024 Anion gap [Moles/Vol] 14 mmol/L Normal 8-15 [facility] Comment on above: Order Comment: Speci men Type: BLOOD SPECIMENOrdering Facility: [facility] Address: [address] [place] [address] Performed By: #### 1 9123-9, 45563-9, HSTNT, 66008-4 ####[facility] [id number] [facility] [id number] [address] [place] Calcium [Mass/Vol] 10.9 mg/dL High 8.5-10.2 [facility] Comment on above: Order Comment: Speci men Type: BLOOD SPECIMENOrdering Facility: [facility] Address: [address] [place] [address] Performed By: #### 1 9123-9, 29379-6, HSTNT, 03716-1 ####[facility]CL[facility] [id number] [address] [address] [place] Chloride [Moles/Vol] 104 mmol/L Normal 98-107 [facility] Comment on above: Order Comment: Speci men Type: BLOOD SPECIMENOrdering Facility: [facility] Address: [address] [place] [address] Performed By: #### 1 9123-9, 66490-5, HSTNT, 71018-7 ####[facility]CL[facility] [id number] [place] [address] [place] CO2 [Moles/Vol] 23 mmol/L Normal 22-30 [facility] Comment on above: Order Comment: Speci men Type: BLOOD SPECIMENOrdering Facility: [facility] Address: [address] [place] [address] Performed By: #### 1 9123-9, 97556-2, HSTNT, 05049-1 ####[facility]CL[facility] [id number] [place] [address] [place] Creatinine [Mass/Vol] 1.12 mg/dL High 0.58-0.96 [facility] Comment on above: Order Comment: Speci men Type: BLOOD SPECIMENOrdering Facility: [facility] Address: [address] [place] [address] Performed By: #### 1 9123-9, 14260-1, HSTNT, 37404-6 ####[facility] [id number] [place] [address] [place] Creatinine and Glomerular filtration rate.predicted panel (S/P/Bld) 59 mL/min/1.73m??? Low >=60 [facility] Comment on above: Order Comment: Speci men Type: BLOOD SPECIMENOrdering Facility: [facility] Address: [address] [place] [address] Result Comment: Anna mated Glomerular Filtration Rate (eGFR) is calculated using the 2020 CKD-EPI creatinine equation. This equation utilizes serum creatinine, sex, and age as parameters. The creatinine assay has traceable calibration to isotope dilution-mass spectrometry. Refer to KDIGO guidelines for clinical interpretation. In patients with unstable renal function, e.g. those with acute kidney injury, the eGFR may not accurately reflect actual GFR. Performed By: #### 1 9123-9, 24104-1, HSTNT, 93077-6 ####[facility] [id number] [place] [address] [place] Glucose [Mass/Vol] 87 mg/dL Normal 74-99 [facility] Comment on above: Order Comment: Jet otto Type: BLOOD SPECIMENOrdering Facility: [facility] Address: [address] [place] [address] Result Comment: The [place] [employer] (ADA) provides guidance for cutoff values for fasting glucose and random glucose. The ADA defines fasting as no caloric intake for at least 8 hours. Fasting plasma glucose results between 100 to 125 mg/dL indicate increased risk for diabetes (prediabetes).Fasting plasma glucose results greater than or equal to 126 mg/dL meet the criteria for diagnosis of diabetes. In the absence of unequivocal hyperglycemia, results should be confirmed by repeat testing. In a patient with classic symptoms of hyperglycemia or hyperglycemic crisis, random plasma glucose results greater than or equal to 200 mg/dL meet the criteria for diagnosis of diabetes.Reference: Standards of Medical Care in Diabetes 2016, [place] [employer]. Diabetes Care. 2016.39(Suppl 1). Performed By: #### 1 9123-9, 66084-3, HSTNT, 72811-8 ####[facility] LABIA [id number] [place] [id number] [place] Potassium [Moles/Vol] 3.8 mmol/L Normal 3.7-5.1 [facility] Comment on above: Order Comment: Jet otto Type: BLOOD SPECIMENOrdering Facility: [facility] Address: [address] [place] [address] Performed By: #### 1 9123-9, 14725-7, HSTNT, 47165-9 ####[facility]CL[facility] [id number] [place] [id number] [place] Sodium [Moles/Vol] 141 mmol/L Normal 136-144 [facility] Comment on above: Order Comment: Speci men Type: BLOOD SPECIMENOrdering Facility: [facility] Address: [address] [place] [address] Performed By: #### 1 9123-9, 32686-2, HSTNT, 33605-3 ####[facility]IA [id number] [place] [address] [place] Urea nitrogen [Mass/Vol] 15 mg/dL Normal 7-21 [facility] Comment on above: Order Comment: Speci men Type: BLOOD SPECIMENOrdering Facility: [facility] Address: [address] [place] [address] Performed By: #### 1 9123-9, 11688-7, HSTNT, 79256-7 ####[facility]IA [id number] [place] [address] [place] CBC W Auto Differential pane l (Bld)on 06-23-2024 Basophils (Bld) [#/Vol] 0.08 10*3/uL Normal <0.11 [facility] Comment on above: Order Comment: Speci men Type: BLOOD SPECIMENOrdering Facility: [facility] Address: [address] [place] [address] Performed By: #### 5 7021-8, 2731-8 ####[facility]IA [id number] [place] [address] [place] Basophils/100 WBC (Bld) 0.9 % Normal [facility] Comment on above: Order Comment: Speci men Type: BLOOD SPECIMENOrdering Facility: [facility] Address: [address] [place] [address] Performed By: #### 5 7021-8, 2731-03 ####[facility]CL[facility] [id number] [place] [address] [place] Differential cell count method Nom (Bld) Auto Normal [facility] Comment on above: Order Comment: Speci men Type: BLOOD SPECIMENOrdering Facility: [facility] Address: [address] [place] [address] Performed By: #### 5 7021-8, 2731-03 ####[facility]CL[facility] [id number] [place] [address] [place] Eosinophils (Bld) [#/Vol] 0.88 10*3/uL High <0.46 [facility] Comment on above: Order Comment: Speci men Type: BLOOD SPECIMENOrdering Facility: [facility] Address: [address] [place] [address] Performed By: #### 5 7021-8, 2731-03 ####[facility] [id number] [place] [address] [place] Eosinophils/100 WBC (Bld) 10.2 % Normal [facility] Comment on above: Order Comment: Speci men Type: BLOOD SPECIMENOrdering Facility: [facility] Address: [address] [place] [address] Performed By: #### 5 7021-8, 2731-03 ####[facility] [id number] [place] [address] [place] Erythrocyte distribution width (RBC) [Ratio] 13.2 % Normal 11.5-15.0 [facility] Comment on above: Order Comment: Speci men Type: BLOOD SPECIMENOrdering Facility: [facility] Address: [address] [place] [address] Performed By: #### 5 7021-8, 2731-03 ####[facility]CL[facility] [id number] [place] [address] [place] Hematocrit (Bld) [Volume fraction] 44.1 % Normal 36.0-46.0 [facility] Comment on above: Order Comment: Speci men Type: BLOOD SPECIMENOrdering Facility: [facility] Address: [address] [place] [address] Performed By: #### 5 7021-8, 2731-03 ####[facility]CL[facility] [id number] [place] [address] [place] Hemoglobin (Bld) [Mass/Vol] 15.2 g/dL Normal 11.5-15.5 [facility] Comment on above: Order Comment: Speci men Type: BLOOD SPECIMENOrdering Facility: [facility] Address: [address] [place] [address] Performed By: #### 5 7021-8, 2731-03 ####[facility]CL[facility] [id number] [place] [address] [place] Immature granulocytes (Bld) [#/Vol] 0.08 10*3/uL Normal <0.10 [facility] Comment on above: Order Comment: Speci men Type: BLOOD SPECIMENOrdering Facility: [facility] Address: [address] [place] [address] Performed By: #### 5 7021-8, 2731-03 ####[facility]CL[facility] [id number] [place] [address] [place] Immature granulocytes/100 WBC (Bld) 0.9 % Normal [facility] Comment on above: Order Comment: Speci men Type: BLOOD SPECIMENOrdering Facility: [facility] Address: [address] [place] [address] Performed By: #### 5 7021-8, 2731-03 ####[facility]CL[facility] [id number] [place] [address] [place] Lymphocytes (Bld) [#/Vol] 2.55 10*3/uL Normal 1.00-4.00 [facility] Comment on above: Order Comment: Speci men Type: BLOOD SPECIMENOrdering Facility: [facility] Address: [address] [place] [address] Performed By: #### 5 7021-8, 2731-03 ####[facility] [id number] [place] [address] [place] Lymphocytes/100 WBC (Bld) 29.6 % Normal [facility] Comment on above: Order Comment: Speci men Type: BLOOD SPECIMENOrdering Facility: [facility] Address: [address] [place] [address] Performed By: #### 5 7021-8, 2731-03 ####[facility]IA [id number] [place] [address] [place] MCH (RBC) [Entitic mass] 30.2 pg Normal 26.0-34.0 [facility] Comment on above: Order Comment: Speci men Type: BLOOD SPECIMENOrdering Facility: [facility] Address: [address] [place] [address] Performed By: #### 5 7021-8, 2731-03 ####[facility] [id number] [place] [address] [place] MCHC (RBC) [Mass/Vol] 34.5 g/dL Normal 30.5-36.0 [facility] Comment on above: Order Comment: Speci men Type: BLOOD SPECIMENOrdering Facility: [facility] Address: [address] [place] [address] Performed By: #### 5 7021-8, 2731-03 ####[facility]IA [id number] [place] [address] [place] MCV (RBC) [Entitic vol] 87.5 fL Normal 80.0-100.0 [facility] Comment on above: Order Comment: Speci men Type: BLOOD SPECIMENOrdering Facility: [facility] Address: [address] [place] [address] Performed By: #### 5 7021-8, 2731-03 ####[facility] [id number] [place] [address] [place] Monocytes (Bld) [#/Vol] 0.74 10*3/uL Normal <0.87 [facility] Comment on above: Order Comment: Speci men Type: BLOOD SPECIMENOrdering Facility: [facility] Address: [address] [place] [address] Performed By: #### 5 7021-8, 2731-03 ####[facility] [id number] [place] [address] [place] Monocytes/100 WBC (Bld) 8.6 % Normal [facility] Comment on above: Order Comment: Speci men Type: BLOOD SPECIMENOrdering Facility: [facility] Address: [address] [place] [address] Performed By: #### 5 7021-8, 2731-03 ####[facility] [id number] [place] [address] [place] Neutrophils (Bld) [#/Vol] 4.28 10*3/uL Normal 1.45-7.50 [facility] Comment on above: Order Comment: Speci men Type: BLOOD SPECIMENOrdering Facility: [facility] Address: [address] [place] [address] Performed By: #### 5 7021-8, 2731-03 ####[facility] [id number] [place] [address] [place] Neutrophils/100 WBC (Bld) 49.8 % Normal [facility] Comment on above: Order Comment: Speci men Type: BLOOD SPECIMENOrdering Facility: [facility] Address: [address] [place] [address] Performed By: #### 5 7021-8, 2731-03 ####[facility] [id number] [place] [address] [place] Nucleated RBC (Bld) [#/Vol] 10*3/uL Normal <0.01 [facility] Comment on above: Order Comment: Speci men Type: BLOOD SPECIMENOrdering Facility: [facility] Address: [address] [place] [address] Performed By: #### 5 7021-8, 2731-03 ####[facility] [id number] [place] [address] [place] Nucleated RBC/100 WBC (Bld) [Ratio] 0.0 /100 WBC Normal [facility] Comment on above: Order Comment: Speci men Type: BLOOD SPECIMENOrdering Facility: [facility] Address: [address] [place] [address] Performed By: #### 5 7021-8, 8 ####[facility] [id number] [place] [address] [place] Platelet mean volume (Bld) [Entitic vol] 9.8 fL Normal 9.0-12.7 [facility] Comment on above: Order Comment: Speci men Type: BLOOD SPECIMENOrdering Facility: [facility] Address: [address] [place] [address] Performed By: #### 5 7021-8, 8 ####[facility] [id number] [place] [address] [place] Platelets (Bld) [#/Vol] 290 10*3/uL Normal 150-400 [facility] Comment on above: Order Comment: Speci men Type: BLOOD SPECIMENOrdering Facility: [facility] Address: [address] [place] [address] Performed By: #### 5 7021-8, 8 ####[facility] [id number] [place] [address] [place] RBC (Bld) [#/Vol] 5.04 10*6/uL Normal 3.90-5.20 [facility] Comment on above: Order Comment: Speci men Type: BLOOD SPECIMENOrdering Facility: [facility] Address: [address] [place] [address] Performed By: #### 5 7021-8, 273-8 ####[facility] [id number] [address] [address] [place] WBC (Bld) [#/Vol] 8.61 10*3/uL Normal 3.70-11.00 [facility] Comment on above: Order Comment: Speci men Type: BLOOD SPECIMENOrdering Facility: [facility] Address: [address] [place] [address] Performed By: #### 5 7021-8, 273-8 ####[facility] [id number] [place] [id number] [place] CT CHEST WO IVCONon 06-23-[address] CHEST WO IVCON Normal [facility] [id number] 06-23-2024 ECG01 Normal [facility] ED NOTEon 06-23-2024 ED NOTE HNO ID: [id number] Author: BEV PEREZ RN Service: Emergency Medicine Author Type: Registered Nurse Type: ED Notes Filed: 06/23/2024 17:59 Note Text: Pt states she is having problems with her lungs, describes chest tightness. Normal [facility] ED PROV NOTEon 06-23-2024 ED PROV NOTE Normal [facility] ED Triage Noteon 06-23-2024 ED Triage Note Normal [facility] HIGH SENSITIVITY TROPONIN To n 06-23-2024 Troponin T.cardiac High sensitivity method [Mass/Vol] 6 ng/L Normal <12 [facility] Comment on above: Order Comment: Speci men Type: BLOOD SPECIMENOrdering Facility: [facility] Address: [address] [place] [address] Performed By: #### 1 9123-9, 52658-6, HSTNT, 23491-2 ####[facility] [id number] [place] [id number] [place] Magnesium [facility] 06-23 Magnesium [Mass/Vol] 1.9 mg/dL Normal 1.7-2.3 [facility] Comment on above: Order Comment: Speci men Type: BLOOD SPECIMENOrdering Facility: [facility] Address: [address] [place] [address] Performed By: #### 1 9123-9, 05507-7, HSTNT, 33263-7 ####[facility] [id number] [place] [address] [place] NT-proBNP [facility] 06-23 Natriuretic peptide.B prohormone N-Terminal [Mass/Vol] <36 Normal <125 [facility] Comment on above: Order Comment: Speci men Type: BLOOD SPECIMENOrdering Facility: [facility] Address: [address] [place] [address] Performed By: #### 1 9123-9, 55786-4, HSTNT, 03271-8 ####[facility] [id number] [place] [address] [place] PTH-Intact [facility] 11- Parathyrin.intact [Mass/Vol] 35 pg/mL Normal 15-65 [facility] Comment on above: Order Comment: Speci men Type: BLOOD SPECIMENOrdering Facility: [facility] Address: [address] [place] [address] Performed By: #### 5 7021-8, 2731-8 ####[facility] LABIA [id number] [place] [address] [place] XR CHEST 2V FRONTAL/LATon XR CHEST 2V FRONTAL/LAT Normal C [facility] MR BRAIN W AND WO CONTRAST ( ROUTINE)on 06-15-2024 MR BRAIN W AND WO CONTRAST (ROUTINE) EXAM: MR BRAIN W AND WO CONTRAST (ROUTINE) History: Spastic hemiplegia affecting right dominant side. TIA Technique: Multiplanar multisequence MRI of the brain was performed without contrast. Comparison: None available Findings: A few tiny scattered foci of hyperintense T2/FLAIR signal within the bilateral supratentorial white matter are nonspecific but are most likely due to chronic small vessel ischemic changes in a patient of this age. Brain volume is age-appropriate. Ventricular morphology is within normal limits. No acute hemorrhage, enhancing mass or pathologic enhancement, mass effect, midline shift, or abnormal extra-axial fluid collection. Midline structures are within normal limits. The posterior fossa is within normal limits. There is no diffusion restriction. No susceptibility artifact is identified on the gradient echo sequence. The major intracranial vascular flow voids are maintained. Cranial nerve 7/8 complexes appear grossly unremarkable. The visualized paranasal sinuses and bilateral mastoid air cells are clear. IMPRESSION: No acute intracranial process. No enhancing mass or pathologic enhancement. A few tiny foci of white matter signal abnormality is nonspecific but most likely sequela of headaches or due to chronic small vessel ischemic changes in a patient of this age. ELECTRONICALLY SIGNED BY: Chetna Ornelas DO Normal Not Available CT abdomen pelvis wo/w conon 06-11-2024 CT abdomen pelvis wo/w con [facility] [place] [address] CT Scan Report Signed Patient: Meredith Chaidez MR#: [id number] 12 : 1970 Acct:[id number] Age/Sex: 53 / F ADM Date: 06/11/24 Loc: CT Room: Type: [facility] Attending Dr: Eduin Perez DO Copies to: Eduin Perez DO Ordering Provider: Eduin Perez DO Date of Service: 06/11/24 CT/CT abdomen pelvis wo/w con: Epigastric abdominal pain CT ABDOMEN AND PELVIS WITH AND WITHOUT INTRAVENOUS CONTRAST: CLINICAL HISTORY: Right upper quadrant pain and epigastric pain. Intermittent black tarry stools. COMPARISON: CT abdomen and pelvis 02/05/2024 TECHNIQUE: Spiral images were obtained through the abdomen and pelvis before and after the administration of intravenous contrast. This CT exam was performed using one or more following dose reduction techniques: Automated exposure control, adjustment of the mA and/or kV according to patient size, or use of iterative reconstruction technique. FINDINGS: Lung Bases: [Minimal scarring.] Organs:Hepatic steatosis. Gallbladder has been removed. Spleen pancreas and adrenal glands appear unremarkable.[Kidneys demonstrate no enhancing mass or stone. No hydronephrosis. Subcentimeter low attenuating lesions are seen within the left kidney too small for characterization. Aorta is normal in caliber. GI: Stomach is grossly unremarkable. Small bowel appears nondilated. Left colon diverticulosis.[ Pelvis:[Urinary bladder is grossly unremarkable. Uterus has been removed. No adnexal mass.] Peritoneum/Retroperitoneu m:No free air, free fluid or lymphadenopathy.[ Abd wall/Bones:Abdominal wall demonstrates no acute findings. Osseous structures demonstrate degenerative change.[ CT/CT abdomen pelvis wo/w con IMPRESSION: 1. No acute findings. Impression dictated by: Elliott Mehta Jr., D.O.06/11/2024 3:34 PM Dictation Location: [place] [address] Transcribed By: [facility] 06/11/24 1534 Dictated By: Elliott Mehta Jr, DO 06/11/24 1532 Signed By: 06/11/24 1534 Normal [facility] Alanine aminotransferase [En zymatic activity/volume] in Serum or PlasmaOrdered By: PROVIDER TEMP on 06-01-2024 ALT [Catalytic activity/Vol] 23 U/L Normal [facility] Comment on above: Performed By: #### R EDMUND PANEL UPP., BIOFIRECOVNOTDE #### [facility] [address] ALT [Catalytic activity/Vol] Alanine aminotransferase [Enzymatic activity/volume] in Serum or Plasma [facility] Albumin [Mass/volume] in Ser um or Plasma by Bromocresol green (BCG) dye binding methoOrdered By: PROVIDER TEMP on 06-01-2024 Albumin BCG dye [Mass/Vol] 4.6 g/dL 3.5-5.7 [facility] Albumin BCG dye [Mass/Vol] Albumin [Mass/volume] in Serum or Plasma by Bromocresol green (BCG) dye binding metho 3.5-5.7 [facility] Alkaline phosphatase [Enzyma tic activity/volume] in Serum or PlasmaOrdered By: PROVIDER TEMP on 06-01-2024 ALP [Catalytic activity/Vol] 81 U/L Normal 34-104 [facility] Comment on above: Performed By: #### R EDMUND PANEL UPP., BIOFIRECOVNOTDE #### [address] ALP [Catalytic activity/Vol] Alkaline phosphatase [Enzymatic activity/volume] in Serum or Plasma [facility] Alpha 1 Anti-Trypsinon 06-01 Alpha 1 Anti-Trypsin 149 mg/dL Normal 101-187 [facility] Comment on above: Order Comment: Reaso n for Exam SOB (shortness of breath);Hepatic disease Result Comment: Perf ormed at: - [facility] [address] [id number] Cookie Padder: Vahe Middleton PhD, Phone: [phone] PERFORMED BY: [place] [address] PATHOLOGIST PANTOGRAPH II ENGRAVER RASHARD REA M.D. Performed By: #### H S TROP, BNP, CMP, CK #### [address] Aspartate aminotransferase [ Enzymatic activity/volume] in Serum or PlasmaOrdered By: PROVIDER TEMP on 06-01-2024 AST [Catalytic activity/Vol] 28 U/L Normal [facility] Comment on above: Performed By: #### R EDMUND PANEL UPP., BIOFIRECOVNOTDE #### [address] AST [Catalytic activity/Vol] Aspartate aminotransferase [Enzymatic activity/volume] in Serum or Plasma [facility] Automated basophil %Ordered By: PROVIDER TEMP on 06-01-2024 Basophils/100 WBC (Bld) 0.2 % Normal [facility] Comment on above: Performed By: #### R EDMUND PANEL UPP., BIOFIRECOVNOTDE #### [address] Automated basophil countOrde red By: PROVIDER TEMP on 06-01-2024 Basophils (Bld) [#/Vol] 0.0 10*3/uL Normal 0.0-0.2 [facility] Comment on above: Result Comment: PERF ORMED BY: [place] [address] PATHOLOGIST PANTOGRAPH II ENGRAVER RASHARD REA M.D. Performed By: #### R EDMUND PANEL UPP., BIOFIRECOVNOTDE #### [address] Automated blood monocyte cou ntOrdered By: PROVIDER TEMP on 06-01-2024 Monocytes (Bld) [#/Vol] 0.5 10*3/uL Normal 0.0-0.8 [facility] Comment on above: Performed By: #### R EDMUND PANEL UPP., BIOFIRECOVNOTDE #### [address] Automated eosinophil %Ordere d By: PROVIDER TEMP on 06-01-2024 Eosinophils/100 WBC (Bld) 6.6 % Normal . [facility] Comment on above: Performed By: #### R EDMUND PANEL UPP., BIOFIRECOVNOTDE #### [address] Automated eosinophil countOr dered By: PROVIDER TEMP on 06-01-2024 Eosinophils (Bld) [#/Vol] 0.5 10*3/uL High 0.0-0.45 [facility] Comment on above: Performed By: #### R EDMUND PANEL UPP., BIOFIRECOVNOTDE #### [address] Automated monocyte %Ordered By: PROVIDER TEMP on 06-01-2024 Monocytes/100 WBC (Bld) 6.7 % Normal . [facility] Comment on above: Performed By: #### R EDMUND PANEL UPP., BIOFIRECOVNOTDE #### [address] Automated neutrophil %Ordere d By: PROVIDER TEMP on 06-01-2024 Neutrophils/100 WBC (Bld) 56.3 % Normal . [facility] Comment on above: Performed By: #### R EDMUND PANEL UPP., BIOFIRECOVNOTDE #### [facility] [address] [place] [address] BNP ser/plasOrdered By: PROV IDER TEMP on 06-01-2024 Natriuretic peptide B (Bld) [Mass/Vol] 6.0 pg/mL Normal 5-100 [facility] Comment on above: Result Comment: PERF ORMED BY: [place] [address] PATHOLOGIST PANTOGRAPH II ENGRAVER RASHARD REA M.D. Performed By: #### R EDMUND PANEL UPP., BIOFIRECOVNOTDE #### [address] Basophils Auto (Bld) [#/Vol] Ordered By: PROVIDER TEMP on 06-01-2024 Basophils (Bld) [#/Vol] Automated basophil count 0.0-0.2 [facility] Basophils/100 WBC Auto (Bld) Ordered By: PROVIDER TEMP on 06-01-2024 Basophils/100 WBC (Bld) Automated basophil % . [facility] Bilirubin.total [Mass/volume ] in Serum or PlasmaOrdered By: PROVIDER TEMP on 06-01-2024 Bilirubin [Mass/Vol] 0.4 mg/dL Normal 0.3-1.0 [facility] Comment on above: Performed By: #### R EDMUND PANEL UPP., BIOFIRECOVNOTDE #### [facility] [address] [place] [address] Bilirubin [Mass/Vol] Bilirubin.total [Mass/volume] in Serum or Plasma 0.3-1.[address] [facility] [address] chest wo/w conon 06-01-20 CT chest wo/w con [facility] [place] [address] CT Scan Report Signed Patient: Meredith Chaidez MR#: [id number] 12 : 1970 Acct:[id number] Age/Sex: 53 / F ADM Date: 06/01/24 Loc: ER Room: Type: [facility] ER Attending Dr: Copies to: Enzo Batista DO Ordering Provider: Enzo Batista DO Date of Service: 06/01/24 CT/CT chest wo/w con: SOB CT CHEST WITHOUT AND WITH INTRAVENOUS CONTRAST COMPARISON: None CLINICAL DATA: Shortness of breath. Spiral images were obtained through the chest before and after intravenous administration of 90 mL Isovue-300. Images were reviewed using both narrow and wide window settings. This CT exam was performed using one or more following dose reduction techniques: Automated exposure control, adjustment of the mA and/or kV according to patient size, or use of iterative reconstruction technique. The heart is top normal in size. There is a trace amount of pericardial effusion. No aortic aneurysm or dissection is seen. There is no lymphadenopathy. There is a tiny hiatal hernia. Endpl ate spurring is present at the spine. There is minor atelectasis or scarring. A small bleb is noted at the left lower lobe near the diaphragm. There is no other consolidation, pleural effusion or pneumothorax. Limited imaging through the upper abdomen shows left nephrolithiasis. There are symmetric renal nephrograms. Fatty infiltration of the liver is noted. There is common duct prominence that is probably related to prior cholecystectomy. There is left-sided colonic diverticulosis. CT/CT chest wo/w con IMPRESSION: NO ACUTE FINDINGS. Impression dictated by: Maureen Macdonald M.D.06/01/2024 7:45 PM Dictation Location: [place] [address] Transcribed By: KAMRON 06/01/241944 Dictated By: Maureen Macdonald MD 06/01/241921 Signed By: 06/01/241944 Normal [facility] Calcium [Mass/volume] in Ser um or PlasmaOrdered By: PROVIDER TEMP on 06-01-2024 Calcium [Mass/Vol] 10.5 mg/dL High 8.6-10.3 [facility] Comment on above: Performed By: #### R EDMUND PANEL UPP., BIOFIRECOVNOTDE #### [address] Calcium [Mass/Vol] Calcium [Mass/volume ] in Serum or Plasma High 8.6-10.3 [facility] Carbon dioxide, total [Moles /volume] in Serum or PlasmaOrdered By: PROVIDER TEMP on 06-01-2024 CO2 [Moles/Vol] 22.7 mmol/L Normal 21.0-31.0 [facility] Comment on above: Performed By: #### R EDMUND PANEL UPP., BIOFIRECOVNOTDE #### [facility] [address] CO2 [Moles/Vol] Carbon dioxide, tota l [Moles/volume] in Serum or Plasma 21.0-31.0 [facility] Chloride [Moles/volume] in S uzair or PlasmaOrdered By: PROVIDER TEMP on 06-01-2024 Chloride [Moles/Vol] 105 mmol/L Normal 98-107 [facility] Comment on above: Performed By: #### R EDMUND PANEL UPP., BIOFIRECOVNOTDE #### [address] Chloride [Moles/Vol] Chloride [Moles/vol ume] in Serum or Plasma 98-107 [facility] Complete Blood Count Auto Di ffon 06-01-2024 Mean Corpuscular HGB Conc 34.6 g/dL Normal 32.0-35.0 [facility] Comment on above: Performed By: #### R EDMUND PANEL UPP., BIOFIRECOVNOTDE #### [facility] [address] [place] [address] [place] Monocytes/100 WBC (Bld) 18.46 % Normal 0.00-20.00 [facility] Comment on above: Performed By: #### R EDMUND PANEL UPP., BIOFIRECOVNOTDE #### [facility] [address] [place] [address] [place] NRBC% 0.2 /100{WBC} Normal 0-0.5 [facility] Comment on above: Performed By: #### R EDMUND PANEL UPP., BIOFIRECOVNOTDE #### [facility] [address] Comprehensive Metabolic Pane tru 06-01-2024 Albumin [Mass/Vol] 4.6 g/dL Normal 3.5-5.7 [facility] Comment on above: Performed By: #### R EDMUND PANEL UPP., BIOFIRECOVNOTDE #### [address] Creatinine Clr Calc Pharmacy 55.26 Normal [facility] Comment on above: Result Comment: PERF ORMED BY: [place] [address] PATHOLOGIST PANTOGRAPH II ENGRAVER RASHARD REA M.D. Performed By: #### R EDMUND PANEL UPP., BIOFIRECOVNOTDE #### [address] GFR/1.73 sq M.predicted MDRD (S/P/Bld) [Vol rate/Area] 54.673 mL/min/{1.73_m2} Normal [facility] Comment on above: Performed By: #### R EDMUND PANEL UPP., BIOFIRECOVNOTDE #### [address] Creatinine [Mass/volume] in Serum or PlasmaOrdered By: PROVIDER TEMP on 06-01-2024 Creatinine [Mass/Vol] 1.19 mg/dL Normal 0.60-1.20 [facility] Comment on above: Performed By: #### R EDMUND PANEL UPP., BIOFIRECOVNOTDE #### [place] [address] [place] Creatinine [Mass/Vol] Creatinine [Mass/v olume] in Serum or Plasma 0.60-1.20 [facility] D-Dimer High Sensitivityon 1 D-Dimer High Sensitivity < 200 Normal 0-243 [facility] Comment on above: Result Comment: The reference range for D-dimer is <243 ng/mL D-dimer units. D-dimer results must be used in conjunction with a clinical pretest probability (PTP) assessment model for deep vein thrombosis (DVT) and pulmonary embolism (PE). Results <230 ng/mL d-dimer units can be used as a negative predictor in patients with low or moderate probability for DVT/PE. Results above the exclusion threshold of 230 ng/ml D-dimer units for DVT/PE may indicate the need for further diagnostic testing. D-Dimer can be increased in hospitalized patients due to co-morbid conditions. A hematocrit value greater than 55% may lead to inaccurate results in coagulation testing. Patients having hematocrit values >55% require a special collection tube for coagulation studies. Please contact the laboratory at [phone] for redraw instructions. PERFORMED BY: [place] [address] PATHOLOGIST PANTOGRAPH II ENGRAVER RASHARD REA M.D. Performed By: #### R EDMUND PANEL UPP., BIOFIRECOVNOTDE #### [address] ECG 12 lead ECGon 06-01-2024 ECG 12 lead ECG [facility] [place] [address] [place] [address] Electrocardiograph Report Signed Patient: Meredith Chaidez MR#: [id number] 12 : 1970 Acct:[id number] Age/Sex: 53 / F ADM Date: 06/01/24 Loc: ER Room: Type: [facility] ER Attending Dr: Ordering Provider: Enzo Batista DO Date of Service: 06/01/24 ECG/ECG 12 lead ECG: Shortness of Breath/Dyspnea Copies to: Test Reason : Blood Pressure : 129/74 mmHG Vent. Rate : 78 BPM Atrial Rate : 78 BPM P-R Int : 162 ms QRS Dur : 86 ms QT Int : 408 ms P-R-T Axes : 56 63 42 degrees QTcB Int : 465 ms Normal sinus rhythm Low voltage QRS Cannot rule out Anterior infarct , age undetermined Abnormal ECG When compared with ECG of 01-Jun-2024 14:27, (Unconfirmed) No significant change was found Confirmed by Enzo Batista DO ([id number]) on 06/01/2024 9:26:52 PM Referred By: Electronically Signed By: Enzo Batista DO Transcribed By: MUS Signed By Enzo Batista DO 2125 Normal [facility] Eosinophils Auto (Bld) [#/Vo l]Ordered By: PROVIDER DYLAN on 06-01-2024 Eosinophils (Bld) [#/Vol] Automated eosinophil count High 0.0-0.45 [facility] Eosinophils/100 WBC Auto (Bl d)Ordered By: PROVIDER TEMP on 06-01-2024 Eosinophils/100 WBC (Bld) Automated eosinophil % . [facility] Erythrocyte distribution wid th Auto (RBC) [Ratio]Ordered By: PROVIDER TEMP on 06-01-2024 Erythrocyte distribution width (RBC) [Ratio] Erythrocyte distribution width [Ratio] by Automated count 11.9-15.3 [facility] Erythrocyte distribution wid th [Ratio] by Automated countOrdered By: PROVIDER TEMP on 06-01-2024 Erythrocyte distribution width (RBC) [Ratio] 13.8 % Normal 11.9-15.3 [facility] Comment on above: Performed By: #### R EDMUND PANEL UPP., BIOFIRECOVNOTDE #### [facility] [address] [place] [address] Erythrocytes [#/volume] in B lood by Automated countOrdered By: PROVIDER TEMP on 06-01-2024 RBC (Bld) [#/Vol] 4.92 10*6/uL Normal 3.60-5.00 [facility] Comment on above: Performed By: #### R EDMUND PANEL UPP., BIOFIRECOVNOTDE #### [facility] [address] [place] [address] FPG ECG *CARDIOLOGY ONLY*on 06-01-2024 FPG ECG *CARDIOLOGY ONLY* [facility] [place] [address] [place] [address] Electrocardiograph Report Signed Patient: Meredith Chaidez MR#: [id number] 12 : 1970 Acct:[id number] Age/Sex: 53 / F ADM Date: 06/01/24 Loc: EKGCARDIO Room: Type: [facility] Attending Dr: Abhilash Caceres MD Ordering Provider: Abhilash Caceres MD Date of Service: 06/01/24 ECG/FPG ECG *CARDIOLOGY ONLY*: I34.0 - Nonrheumatic mitral (valve) insufficiency Copies to: Test Reason : Blood Pressure : */* mmHG Vent. Rate : 77 BPM Atrial Rate : 77 BPM P-R Int : 166 ms QRS Dur : 88 ms QT Int : 406 ms P-R-T Axes : 55 31 60 degrees QTcB Int : 459 ms Normal sinus rhythm Normal ECG When compared with ECG of 21-May-2024 14:51, premature ventricular complexes are no longer present Confirmed by Abhilash Caceres ([id number]) on 06/02/2024 4:24:41 PM Referred By: Electronically Signed By: Abhilash Caceres Transcribed By: MUS Signed By Abhilash Caceres MD 06/02/24 7696 Normal [facility] Fibrin D-dimer [Presence] in Platelet poor plasma by Latex agglutinationOrdered By: Enzo Batista on 06-01-2024 Fibrin D-dimer LA Ql (PPP) < 200 ng/mL 0- [facility] Comment on above: The reference range for D-dimer is <243 ng/mL D-dimer units.D-dimer results must be used in conjunction with a clinicalpretest probability (PTP) assessment model for deep veinthrombosis (DVT) and pulmonary embolism (PE). Results <230ng/mL d-dimer units can be used as a negative predictor inpatients with low or moderate probability for DVT/PE.Results above the exclusion threshold of 230 ng/ml D-dimerunits for DVT/PE may indicate the need for furtherdiagnostic testing.D-Dimer can be increased in hospitalized patients due toco-morbid conditions.A hematocrit value greater than 55% may lead to inaccurate results in coagulation testing. Patients having hematocrit values >55% require a special collection tube for coagulation studies. Please contact the laboratory at [phone] for redraw instructions. Fibrin D-dimer LA Ql (PPP) Fibrin D-dimer [Presence] in Platelet poor plasma by Latex agglutination 0243 [facility] Comment on above: The reference range for D-dimer is <243 ng/mL D-dimer units.D-dimer results must be used in conjunction with a clinicalpretest probability (PTP) assessment model for deep veinthrombosis (DVT) and pulmonary embolism (PE). Results <230ng/mL d-dimer units can be used as a negative predictor inpatients with low or moderate probability for DVT/PE.Results above the exclusion threshold of 230 ng/ml D-dimerunits for DVT/PE may indicate the need for furtherdiagnostic testing.D-Dimer can be increased in hospitalized patients due toco-morbid conditions.A hematocrit value greater than 55% may lead to inaccurate results in coagulation testing. Patients having hematocrit values >55% require a special collection tube for coagulation studies. Please contact the laboratory at [phone] for redraw instructions. Globulin Calc (S) [Mass/Vol] Ordered By: PROVIDER TEMP on 06-01-2024 Globulin (S) [Mass/Vol] Serum globulin measurement by calculation (mass/volume) [facility] Glucose [Mass/volume] in Ser um or PlasmaOrdered By: PROVIDER TEMP on 06-01-2024 Glucose [Mass/Vol] 101 mg/dL High 70-100 [facility] Comment on above: ADA recommended refe rence rangeRandom Glucose Reference Range is dependent on time and content of last meal. Glucose of more than 200 mg/dL in a nonstressed, ambulatory subject supports the diagnosis of Diabetes Mellitus. Result Comment: [place] Glucose Reference Range is dependent on time and content of last meal. Glucose of more than 200 mg/dL in a nonstressed, ambulatory subject supports the diagnosis of Diabetes Mellitus. ADA recommended reference range Performed By: #### R EDMUND PANEL UPP., BIOFIRECOVNOTDE #### [address] Glucose [Mass/Vol] Glucose [Mass/volume ] in Serum or Plasma High 70-100 [facility] Comment on above: ADA recommended refe rence rangeRandom Glucose Reference Range is dependent on time and content of last meal. Glucose of more than 200 mg/dL in a nonstressed, ambulatory subject supports the diagnosis of Diabetes Mellitus. Hematocrit Auto (Bld) [Volum e fraction]Ordered By: PROVIDER TEMP on 06-01-2024 Hematocrit (Bld) [Volume fraction] Hematocrit [Volume Fraction] of Blood by Automated count 34.0-46.4 [facility] Hematocrit [Volume Fraction] of Blood by Automated countOrdered By: PROVIDER TEMP on 06-01-2024 Hematocrit (Bld) [Volume fraction] 43.5 % Normal 34.0-46.4 [facility] Comment on above: Performed By: #### R EDMUND PANEL UPP., BIOFIRECOVNOTDE #### [facility] [address] [place] [address] Hemoglobin [Mass/volume] in BloodOrdered By: PROVIDER TEMP on 06-01-2024 Hemoglobin (Bld) [Mass/Vol] 15.1 g/dL Normal 11.8-15.4 [facility] Comment on above: Performed By: #### R EDMUND PANEL UPP., BIOFIRECOVNOTDE #### [address] Hemoglobin (Bld) [Mass/Vol] Hemoglobin [Mass/volume] in Blood 11.8-15.4 [facility] Leukocytes [#/volume] correc lucas for nucleated erythrocytes in Blood by Automated counOrdered By: PROVIDER TEMP on 06-01-2024 WBC corrected for nucl RBC Auto (Bld) [#/Vol] 7.1 10*3/uL 3.8-11.6 [facility] WBC corrected for nucl RBC Auto (Bld) [#/Vol] Leukocytes [#/volume] corrected for nucleated erythrocytes in Blood by Automated coun 3.8-11.6 [facility] Leukocytes [#/volume] in Blo od by Automated countOrdered By: PROVIDER TEMP on 06-01-2024 WBC (Bld) [#/Vol] 7.1 10*3/uL Normal 3.8-11.6 [facility] Comment on above: Performed By: #### R EDMUND PANEL UPP., BIOFIRECOVNOTDE #### [address] Lymphocytes Auto (Bld) [#/Vo l]Ordered By: PROVIDER TEMP on 06-01-2024 Lymphocytes (Bld) [#/Vol] Lymphocytes [#/volume] in Blood by Automated count 1.00-4.8 [facility] Lymphocytes [#/volume] in Bl ood by Automated countOrdered By: PROVIDER TEMP on 06-01-2024 Lymphocytes (Bld) [#/Vol] 2.1 10*3/uL Normal 1.00-4.8 [facility] Comment on above: Performed By: #### R EDMUND PANEL UPP., BIOFIRECOVNOTDE #### [facility] [address] Lymphocytes/100 WBC Auto (Bl d)Ordered By: PROVIDER TEMP on 06-01-2024 Lymphocytes/100 WBC (Bld) Lymphocytes/100 leukocytes in Blood by Automated count . [facility] Lymphocytes/100 leukocytes i n Blood by Automated countOrdered By: PROVIDER TEMP on 06-01-2024 Lymphocytes/100 WBC (Bld) 30.2 % Normal . [facility] Comment on above: Performed By: #### R EDMUND PANEL UPP., BIOFIRECOVNOTDE #### [facility] [address] MCH Auto (RBC) [Entitic mass ]Ordered By: PROVIDER TEMP on 06-01-2024 MCH (RBC) [Entitic mass] MCH [Entitic mass] by Automated count 24.7-34.3 [facility] MCH [Entitic mass] by Automa lucas countOrdered By: PROVIDER TEMP on 06-01-2024 MCH (RBC) [Entitic mass] 30.6 pg Normal 24.7-34.3 [facility] Comment on above: Performed By: #### R EDMUND PANEL UPP., BIOFIRECOVNOTDE #### [address] MCHC Auto (RBC) [Mass/Vol]Or dered By: PROVIDER TEMP on 06-01-2024 MCHC (RBC) [Mass/Vol] 34.6 g/dL 32.0-35.0 [facility] MCHC (RBC) [Mass/Vol] MCHC [Mass/volume] by Automated count 32.0-35.0 [facility] MCV Auto (RBC) [Entitic vol] Ordered By: PROVIDER TEMP on 06-01-2024 MCV (RBC) [Entitic vol] MCV [Entitic vol ume] by Automated count 80-100 [facility] MCV [Entitic volume] by Auto mated countOrdered By: PROVIDER TEMP on 06-01-2024 MCV (RBC) [Entitic vol] 88.4 fL Normal 80-100 [facility] Comment on above: Performed By: #### R EDMUND PANEL UPP., BIOFIRECOVNOTDE #### [facility] [address] [place] [address] [place] Monocyte distribution width [Entitic volume] in Blood by AutomatedOrdered By: PROVIDER TEMP on 06-01-2024 Monocyte distribution width Auto (Bld) [Entitic vol] 18.46 % 0.00-20.00 [facility] Monocyte distribution width Auto (Bld) [Entitic vol] Monocyte distribution width [Entitic volume] in Blood by Automated 0.00-20.00 [facility] Monocytes Auto (Bld) [#/Vol] Ordered By: PROVIDER TEMP on 06-01-2024 Monocytes (Bld) [#/Vol] Automated blood monocyte count 0.0-0.8 [facility] Monocytes/100 WBC Auto (Bld) Ordered By: PROVIDER TEMP on 06-01-2024 Monocytes/100 WBC (Bld) Automated monocyte % . [facility] Natriuretic peptide B [Mass/ Vol]Ordered By: PROVIDER TEMP on 06-01-2024 Natriuretic peptide B (Bld) [Mass/Vol] BNP ser/plas 5-100 [facility] Neutrophils Auto (Bld) [#/Vo l]Ordered By: PROVIDER TEMP on 06-01-2024 Neutrophils (Bld) [#/Vol] Neutrophils [#/volume] in Blood by Automated count 1.8-7.7 [facility] Neutrophils [#/volume] in Bl ood by Automated countOrdered By: PROVIDER TEMP on 06-01-2024 Neutrophils (Bld) [#/Vol] 4.0 10*3/uL Normal 1.8-7.7 [facility] Comment on above: Performed By: #### R EDMUND PANEL UPP., BIOFIRECOVNOTDE #### [facility] [address] [place] [address] [place] Neutrophils/100 WBC Auto (Bl d)Ordered By: PROVIDER TEMP on 06-01-2024 Neutrophils/100 WBC (Bld) Automated neutrophil % . [facility] No Panel InformationOrdered By: PROVIDER TEMP on 06-01-2024 Estimated GFR (CKD-EPI) 54.673 mL/Min [facility] Creatinine Clearance (Chem 55.26 [facility] Nucleated erythrocytes [Pres ence] in Blood by Automated countOrdered By: PROVIDER TEMP on 06-01-2024 Nucleated RBC Auto Ql (Bld) 0.2 /100{WBC} 0-0.5 [facility] Nucleated RBC Auto Ql (Bld) Nucleated erythrocytes [Presence] in Blood by Automated count 0-0.5 [facility] Platelet mean volume Auto (B ld) [Entitic vol]Ordered By: PROVIDER TEMP on 06-01-2024 Platelet mean volume (Bld) [Entitic vol] Platelet mean volume [Entitic volume] in Blood by Automated count 6.3-10.7 [facility] Platelet mean volume [Entiti c volume] in Blood by Automated countOrdered By: PROVIDER TEMP on 06-01-2024 Platelet mean volume (Bld) [Entitic vol] 8.5 fL Normal 6.3-10.7 [facility] Comment on above: Performed By: #### R EDMUND PANEL UPP., BIOFIRECOVNOTDE #### [facility] [address] [place] [address] [place] Platelets Auto (Bld) [#/Vol] Ordered By: PROVIDER TEMP on 06-01-2024 Platelets (Bld) [#/Vol] Platelets [#/vol ume] in Blood by Automated count 150-450 [facility] Platelets [#/volume] in Bloo d by Automated countOrdered By: PROVIDER TEMP on 06-01-2024 Platelets (Bld) [#/Vol] 330 10*3/uL Normal 150-450 [facility] Comment on above: Performed By: #### R EDMUND PANEL UPP., BIOFIRECOVNOTDE #### [facility] [address] [place] [address] [place] Potassium [Moles/volume] in Serum or PlasmaOrdered By: PROVIDER TEMP on 06-01-2024 Potassium [Moles/Vol] 3.6 mmol/L Normal 3.5-5.1 [facility] Comment on above: Performed By: #### R EDMUND PANEL UPP., BIOFIRECOVNOTDE #### [facility] [address] Potassium [Moles/Vol] Potassium [Moles/v olume] in Serum or Plasma 3.5-5.1 [facility] Protein [Mass/volume] in Ser um or PlasmaOrdered By: PROVIDER TEMP on 06-01-2024 Protein [Mass/Vol] 8.9 g/dL Normal 6.4-8.9 [facility] Comment on above: Performed By: #### R EDMUND PANEL UPP., BIOFIRECOVNOTDE #### [facility] [address] Protein [Mass/Vol] Protein [Mass/volume ] in Serum or Plasma 6.4-8.9 [facility] RBC Auto (Bld) [#/Vol]Ordere d By: PROVIDER TEMP on 06-01-2024 RBC (Bld) [#/Vol] Erythrocytes [#/volu me] in Blood by Automated count 3.60-5.00 [facility] Serum [id number] me asurementOrdered By: Eduin Perez on 06-01-2024 Alpha 1 antitrypsin [Mass/Vol] 149 mg/dL 101-187 [facility] Comment on above: Performed at: [place] [id number] Director: Vahe Middleton PhD, Phone: [phone] Serum globulin measurement b y calculation (mass/volume)Ordered By: PROVIDER TEMP on 06-01-2024 Globulin (S) [Mass/Vol] 4.3 g/dL Normal [facility] Comment on above: Performed By: #### R EDMUND PANEL UPP., BIOFIRECOVNOTDE #### [facility] [address] Serum or plasma albumin/glob ulin mass ratioOrdered By: PROVIDER TEMP on 06-01-2024 Albumin/Globulin [Mass ratio] 1.1 {ratio} Normal [facility] Comment on above: Performed By: #### R EDMUND PANEL UPP., BIOFIRECOVNOTDE #### [address] Albumin/Globulin [Mass ratio] Serum or plasma albumin/globulin mass ratio [facility] Serum or plasma alpha 1 anti trypsin measurement (mass/volume)Ordered By: Eduin Perez on 06-01-2024 Alpha 1 antitrypsin [Mass/Vol] Serum kxlhr-0-zuvrkruzyul measurement 101-187 [facility] Comment on above: Performed at: [address] [id number] Director: Vahe Middleton PhD, Phone: [phone] Serum or plasma anion gap de terminationOrdered By: PROVIDER TEMP on 06-01-2024 Anion gap [Moles/Vol] 11.9 mmol/L Normal 6.0-15.0 [facility] Comment on above: Performed By: #### R EDMUND PANEL UPP., BIOFIRECOVNOTDE #### [address] Anion gap [Moles/Vol] Serum or plasma an ion gap determination 6.0-15.0 [facility] Sodium [Moles/volume] in Ser um or PlasmaOrdered By: PROVIDER TEMP on 06-01-2024 Sodium [Moles/Vol] 136 mmol/L Normal 136-145 [facility] Comment on above: Performed By: #### R EDMUND PANEL UPP., BIOFIRECOVNOTDE #### [address] Sodium [Moles/Vol] Sodium [Moles/volume ] in Serum or Plasma 136-145 [facility] Troponin I High Sensitivityo n 06-01-2024 Troponin I High Sensitivity 4.6 pg/mL Normal 0.0-15.0 [facility] Comment on above: Result Comment: PERF ORMED BY: [place] [address] PATHOLOGIST PANTOGRAPH II ENGRAVER RASHARD REA M.D. Performed By: #### R EDMUND PANEL UPP., BIOFIRECOVNOTDE #### [address] Troponin I.cardiac [Mass/vol ume] in Serum or Plasma by Detection limit <= 0.01 ng/Ordered By: PROVIDER TEMP on 06-01-2024 Troponin I.cardiac DL <= 0.01 ng/mL [Mass/Vol] 4.6 pg/mL 0.0-15.0 [facility] Troponin I.cardiac DL <= 0.01 ng/mL [Mass/Vol] Troponin I.cardiac [Mass/volume] in Serum or Plasma by Detection limit <= 0.01 ng/ 0.0-15.0 [facility] Urea nitrogen [Mass/volume] in Serum or PlasmaOrdered By: PROVIDER TEMP on 06-01-2024 Urea nitrogen [Mass/Vol] 15 mg/dL Normal 03-04 [facility] Comment on above: Performed By: #### R EDMUND PANEL UPP., BIOFIRECOVNOTDE #### [address] Urea nitrogen [Mass/Vol] Urea nitrogen [Mass/volume] in Serum or Plasma 03-04 [facility] WBC Auto (Bld) [#/Vol]Ordere d By: PROVIDER TEMP on 06-01-2024 WBC (Bld) [#/Vol] Leukocytes [#/volume ] in Blood by Automated count 3.8-11.6 [facility] XR chest 2V*on 06-01-2024 XR chest 2V* [facility] [place] [address] XRay Report Signed Patient: Meredith Chaidez MR#: [id number] [birth year] : 1970 Acct:[id number] Age/Sex: 53 / F ADM Date: 06/01/24 Loc: ER Room: Type: [facility] ER Attending Dr: Copies to: DO Enzo Whitten DO Ordering Provider: Jalen Brush DO Date of Service: 06/01/24 XR/XR chest 2V*: Shortness of Breath/Dyspnea PA AND LATERAL CHEST: CLINICAL HISTORY: Shortness of breath and wheezing COMPARISON: 05/21/2024 There is mild hyperinflation. There is no focal parenchymal consolidation, effusion or pneumothorax. The cardiac, hilar and mediastinal silhouettes are within normal limits. There is no vascular congestion. The visualized bony thorax is intact. End plate spurring is seen at the spine. XR/XR chest 2V* IMPRESSION: NO ACUTE CARDIOPULMONARY ABNORMALITY. Impression dictated by: Maureen Macdonald M.D.06/01/2024 6:17 PM Dictation Location: [place] [address] Transcribed By: KAMRON 06/01/241816 Dictated By: Maureen Macdonald MD 06/01/241815 Signed By: 06/01/241816 Normal [facility] Alanine aminotransferase [En zymatic activity/volume] in Serum or PlasmaOrdered By: Wesley Palacios on 05-21-2024 ALT [Catalytic activity/Vol] 21 U/L Normal [facility] Comment on above: Performed By: #### L IPASE, BMP, HS TROP, HEPATIC ####[facility] [id number] [place] [id number] [facility] ALT [Catalytic activity/Vol] Alanine aminotransferase [Enzymatic activity/volume] in Serum or Plasma [facility] Albumin [Mass/volume] in Ser um or Plasma by Bromocresol green (BCG) dye binding methoOrdered By: Wesley Palacios on 05-21-2024 Albumin BCG dye [Mass/Vol] 4.9 g/dL 3.5-5.7 [facility] Albumin BCG dye [Mass/Vol] Albumin [Mass/volume] in Serum or Plasma by Bromocresol green (BCG) dye binding metho 3.5-5.7 [facility] Alkaline phosphatase [Enzyma tic activity/volume] in Serum or PlasmaOrdered By: Wesley Palacios on 05-21-2024 ALP [Catalytic activity/Vol] 93 U/L Normal [facility] Comment on above: Performed By: #### L IPASE, BMP, HS TROP, HEPATIC ####[facility] [id number] [place] [address] [facility] ALP [Catalytic activity/Vol] Alkaline phosphatase [Enzymatic activity/volume] in Serum or Plasma [facility] Aspartate aminotransferase [ Enzymatic activity/volume] in Serum or PlasmaOrdered By: Wesley Palacios on 05-21-2024 AST [Catalytic activity/Vol] 21 U/L Normal [facility] Comment on above: Performed By: #### L IPASE, BMP, HS TROP, HEPATIC ####[facility] V[address] AST [Catalytic activity/Vol] Aspartate aminotransferase [Enzymatic activity/volume] in Serum or Plasma [facility] Automated basophil %Ordered By: Wesley Palacios on 05-21-2024 Basophils/100 WBC (Bld) 1.4 % Normal . [facility] Comment on above: Performed By: #### H S TROP, BNP, CMP, CK #### [facility] [address] Automated basophil countOrde red By: Wesley Palacios on 05-21-2024 Basophils (Bld) [#/Vol] 0.1 10*3/uL Normal 0.0-0.2 [facility] Comment on above: Result Comment: PERF ORMED BY: [place] [address] PATHOLOGIST PANTOGRAPH II ENGRAVER RASHARD REA M.D. Performed By: #### H S TROP, BNP, CMP, CK #### [address] Automated blood monocyte cou ntOrdered By: Wesley Palacios on 05-21-2024 Monocytes (Bld) [#/Vol] 0.5 10*3/uL Normal 0.0-0.8 [facility] Comment on above: Performed By: #### H S TROP, BNP, CMP, CK #### [facility] [address] Automated eosinophil %Ordere d By: Wesley Palacios on 05-21-2024 Eosinophils/100 WBC (Bld) 8.5 % Normal . [facility] Comment on above: Performed By: #### H S TROP, BNP, CMP, CK #### [facility] [address] [place] [address] Automated eosinophil countOr dered By: Wesley Palacios on 05-21-2024 Eosinophils (Bld) [#/Vol] 0.7 10*3/uL High 0.0-0.45 [facility] Comment on above: Performed By: #### H S TROP, BNP, CMP, CK #### [address] Automated monocyte %Ordered By: Wesley Palacios on 05-21-2024 Monocytes/100 WBC (Bld) 6.4 % Normal . [facility] Comment on above: Performed By: #### H S TROP, BNP, CMP, CK #### [address] Automated neutrophil %Ordere d By: Wesley Palacios on 05-21-2024 Neutrophils/100 WBC (Bld) 56.8 % Normal . [facility] Comment on above: Performed By: #### H S TROP, BNP, CMP, CK #### [address] BNP ser/plasOrdered By: Yanira Palacios on 05-21-2024 Natriuretic peptide B (Bld) [Mass/Vol] 7.0 pg/mL Normal 5-100 [facility] Comment on above: Result Comment: PERF ORMED BY: [place] [address] PATHOLOGIST PANTOGRAPH II ENGRAVER RASHARD REA M.D. Performed By: #### H S TROP, BNP, CMP, CK #### [address] Basic Metabolic Panelon 05-11 Creatinine [facility] Cal[facility] Pharmacy 55.36 Normal [facility] Comment on above: Performed By: #### L IPASE, BMP, HS TROP, HEPATIC ####[address] GFR/1.73 sq M.predicted MDRD (S/P/Bld) [Vol rate/Area] 54.127 mL/min/{1.73_m2} Normal [facility] Comment on above: Performed By: #### L IPASE, BMP, HS TROP, HEPATIC ####[address] Basophils Auto (Bld) [#/Vol] Ordered By: Wesley Palacios on 05-21-2024 Basophils (Bld) [#/Vol] Automated basophil count 0.0-0.2 [facility] Basophils/100 WBC Auto (Bld) Ordered By: Wesley aPlacios on 05-21-2024 Basophils/100 WBC (Bld) Automated basophil % . [facility] Bilirubin.direct [Mass/volum e] in Serum or PlasmaOrdered By: Wesley Palacios on 05-21-2024 Bilirubin.direct [Mass/Vol] 0.00 mg/dL Low 0.03-0.18 [facility] Comment on above: If the DBIL is less than 0.1, IBIL is not able to becalculated. Bilirubin.direct [Mass/Vol] Bilirubin.direct [Mass/volume] in Serum or Plasma Low 0.03-0.18 [facility] Comment on above: If the DBIL is less than 0.1, IBIL is not able to becalculated. Bilirubin.total [Mass/volume ] in Serum or PlasmaOrdered By: Wesley Palacios on 05-21-2024 Bilirubin [Mass/Vol] 0.3 mg/dL Normal 0.3-1.0 [facility] Comment on above: Performed By: #### L IPASE, BMP, HS TROP, HEPATIC ####[facility] Bilirubin [Mass/Vol] Bilirubin.total [Mass/volume] in Serum or Plasma 0.3-1.0 [facility] Calcium [Mass/volume] in Ser um or PlasmaOrdered By: Wesley Palacios on 05-21-2024 Calcium [Mass/Vol] 11.2 mg/dL High 8.6-10.3 [facility] Comment on above: Performed By: #### L IPASE, BMP, HS TROP, HEPATIC ####[facility] [id number] Calcium [Mass/Vol] Calcium [Mass/volume ] in Serum or Plasma High 8.6-10.3 [facility] Carbon dioxide, total [Moles /volume] in Serum or PlasmaOrdered By: Wesley Palacios on 05-21-2024 CO2 [Moles/Vol] 24.0 mmol/L Normal 21.0-31.0 [facility] Comment on above: Performed By: #### L IPASE, BMP, HS TROP, HEPATIC ####[facility] [address] CO2 [Moles/Vol] Carbon dioxide, tota l [Moles/volume] in Serum or Plasma 21.0-31.0 [facility] Chloride [Moles/volume] in S uzair or PlasmaOrdered By: Wesley Palacios on 05-21-2024 Chloride [Moles/Vol] 104 mmol/L Normal 98-107 [facility] Comment on above: Performed By: #### L IPASE, BMP, HS TROP, HEPATIC ####[facility] [id number] [place] [address] [place] Chloride [Moles/Vol] Chloride [Moles/vol ume] in Serum or Plasma 98-107 [facility] Complete Blood Count Auto Di ffon 05-21-2024 Mean Corpuscular HGB Conc 34.5 g/dL Normal 32.0-35.0 [facility] Comment on above: Performed By: #### H S TROP, BNP, CMP, CK #### [facility] [address] [place] [address] [place] Monocytes/100 WBC (Bld) 18.16 % Normal 0.00-20.00 [facility] Comment on above: Performed By: #### H S TROP, BNP, CMP, CK #### [facility] [address] [place] [address] [place] NRBC% 0.1 /100{WBC} Normal 0-0.5 [facility] Comment on above: Performed By: #### H S TROP, BNP, CMP, CK #### [facility] [address] [place] [address] [place] Creatine kinase [Enzymatic a ctivity/volume] in Serum or PlasmaOrdered By: Wesley Palacios on 05-21-2024 CK [Catalytic activity/Vol] 228 U/L High 30-223 [facility] Comment on above: Result Comment: PERF ORMED BY: [place] [address] PATHOLOGIST PANTOGRAPH II ENGRAVER RASHARD REA M.D. Performed By: #### H S TROP, BNP, CMP, CK #### [facility] [address] [place], [place] [id number] [facility] CK [Catalytic activity/Vol] Creatine kinase [Enzymatic activity/volume] in Serum or Plasma High 30-223 [facility] Creatinine [Mass/volume] in Serum or PlasmaOrdered By: Wesley Palacios on 05-21-2024 Creatinine [Mass/Vol] 1.20 mg/dL Normal 0.60-1.20 [facility] Comment on above: Performed By: #### L IPASE, BMP, HS TROP, HEPATIC ####[facility] [id number] [place] [address] Creatinine [Mass/Vol] Creatinine [Mass/v olume] in Serum or Plasma 0.60-1.20 [facility] ECG 12 lead ECGon 05-21-2024 ECG 12 lead ECG [facility] [place] [address] [place] [address] Electrocardiograph Report Signed Patient: Meredith Chaidez MR#: [id number] [birth year] : 1970 Acct:[id number] Age/Sex: 53 / F ADM Date: 05/21/24 Loc: ER Room: Type: [facility] ER Attending Dr: Ordering Provider: Enzo Batista DO Date of Service: 05/21/2407/04/1441 ECG/ECG 12 lead ECG: Shortness of Breath/Dyspnea Copies to: Test Reason : Blood Pressure : 135/77 mmHG Vent. Rate : 76 BPM Atrial Rate : 76 BPM P-R Int : 174 ms QRS Dur : 84 ms QT Int : 396 ms P-R-T Axes : 30 56 55 degrees QTcB Int : 445 ms Poor data quality, interpretation may be adversely affected Sinus rhythm with occasional premature ventricular complexes Low voltage QRS Cannot rule out Anterior infarct (cited on or before 05-Feb-2024) Abnormal ECG When compared with ECG of 28-Apr-2024 19:36, premature ventricular complexes are now present Confirmed by Enzo Batista DO ([id number]) on 05/21/2024 7:45:15 PM Referred By: Electronically Signed By: Enzo Batista DO Transcribed By: MUS Signed By Enzo Batista DO 1944 Normal [facility] Eosinophils Auto (Bld) [#/Vo l]Ordered By: Wesley Palacios on 05-21-2024 Eosinophils (Bld) [#/Vol] Automated eosinophil count High 0.0-0.45 [facility] Eosinophils/100 WBC Auto (Bl d)Ordered By: Wesley Palacios on 05-21-2024 Eosinophils/100 WBC (Bld) Automated eosinophil % . [facility] Erythrocyte distribution wid th Auto (RBC) [Ratio]Ordered By: Wesley Palacios on 05-21-2024 Erythrocyte distribution width (RBC) [Ratio] Erythrocyte distribution width [Ratio] by Automated count 11.9-15.3 [facility] Erythrocyte distribution wid th [Ratio] by Automated countOrdered By: Wesley Palacios on 05-21-2024 Erythrocyte distribution width (RBC) [Ratio] 13.8 % Normal 11.9-15.3 [facility] Comment on above: Performed By: #### H S TROP, BNP, CMP, CK #### [facility] [address] Erythrocytes [#/volume] in B lood by Automated countOrdered By: Wesley Palacios on 05-21-2024 RBC (Bld) [#/Vol] 4.92 10*6/uL Normal 3.60-5.00 [facility] Comment on above: Performed By: #### H S TROP, BNP, CMP, CK #### [facility] [address] Globulin Calc (S) [Mass/Vol] Ordered By: Wesley Palacios on 05-21-2024 Globulin (S) [Mass/Vol] Serum globulin measurement by calculation (mass/volume) [facility] Glucose [Mass/volume] in Ser um or PlasmaOrdered By: Wesley Palacios on 05-21-2024 Glucose [Mass/Vol] 87 mg/dL Normal 70-100 [facility] Comment on above: ADA recommended refe rence rangeRandom Glucose Reference Range is dependent on time and content of last meal. Glucose of more than 200 mg/dL in a nonstressed, ambulatory subject supports the diagnosis of Diabetes Mellitus. Result Comment: [place] om Glucose Reference Range is dependent on time and content of last meal. Glucose of more than 200 mg/dL in a nonstressed, ambulatory subject supports the diagnosis of Diabetes Mellitus. ADA recommended reference range Performed By: #### L IPASE, BMP, HS TROP, HEPATIC ####[facility] [address] Glucose [Mass/Vol] Glucose [Mass/volume ] in Serum or Plasma 70-100 [facility] Comment on above: ADA recommended refe rence rangeRandom Glucose Reference Range is dependent on time and content of last meal. Glucose of more than 200 mg/dL in a nonstressed, ambulatory subject supports the diagnosis of Diabetes Mellitus. Hematocrit Auto (Bld) [Volum e fraction]Ordered By: Wesley Palacios on 05-21-2024 Hematocrit (Bld) [Volume fraction] Hematocrit [Volume Fraction] of Blood by Automated count 34.0-46.4 [facility] Hematocrit [Volume Fraction] of Blood by Automated countOrdered By: Wesley Palacios on 05-21-2024 Hematocrit (Bld) [Volume fraction] 43.3 % Normal 34.0-46.4 [facility] Comment on above: Performed By: #### H S TROP, BNP, CMP, CK #### [facility] [address] [place] [id number] [place] Hemoglobin [Mass/volume] in BloodOrdered By: Wesley Palacios on 05-21-2024 Hemoglobin (Bld) [Mass/Vol] 14.9 g/dL Normal 11.8-15.4 [facility] Comment on above: Performed By: #### H S TROP, BNP, CMP, CK #### [facility] [address] [place] [id number] [place] Hemoglobin (Bld) [Mass/Vol] Hemoglobin [Mass/volume] in Blood 11.8-15.4 [facility] Hepatic Panelon 05-21-2024 Albumin [Mass/Vol] 4.9 g/dL Normal 3.5-5.7 [facility] Comment on above: Performed By: #### L IPASE, BMP, HS TROP, HEPATIC ####[facility] Bilirubin,Indirect 0.3 mg/dL Normal [facility] Comment on above: Performed By: #### L IPASE, BMP, HS TROP, HEPATIC ####[facility] [id number] Bilirubin.indirect [Mass/Vol] 0.00 mg/dL Low 0.03-0.18 [facility] Comment on above: Result Comment: If t he DBIL is less than 0.1, IBIL is not able to be calculated. Performed By: #### L IPASE, BMP, HS TROP, HEPATIC ####[facility] INR in Platelet poor plasma by Coagulation assayOrdered By: Wesley Palacios on 05-21-2024 INR Coag (PPP) [Relative time] 1.0 {INR} Normal [facility] Comment on above: INR Therapeutic Rang e A) Pre- and Peroperative OAT started two weeks before surgery. NOT HIP SURGERY: 1.5 - 2.5 HIP SURGERY: 2 - 3B) Primary and secondary prevention of venous THROMBOSIS: 2 - 3C) Active venous thrombosis, pulmonary embolismand prevention of recurrent venous thrombosis: 2 - 3D) Prevention of arterial thromboembolismincluding patients with mechanical heart valves: 3 - 4.5 Result Comment: INR Therapeutic Range A) Pre- and Peroperative OAT started two weeks before surgery. NOT HIP SURGERY: 1.5 - 2.5 HIP SURGERY: 2 - 3 B) Primary and secondary prevention of venous THROMBOSIS: 2 - 3 C) Active venous thrombosis, pulmonary embolism and prevention of recurrent venous thrombosis: 2 - 3 D) Prevention of arterial thromboembolism including patients with mechanical heart valves: 3 - 4.5 PERFORMED BY: [place] [address] PATHOLOGIST PANTOGRAPH II ENGRAVER RASHARD REA M.D. Performed By: #### H S TROP, BNP, CMP, CK #### [facility] [address] INR Coag (PPP) [Relative time] INR in Platelet poor plasma by Coagulation assay [facility] Comment on above: INR Therapeutic Rang e A) Pre- and Peroperative OAT started two weeks before surgery. NOT HIP SURGERY: 1.5 - 2.5 HIP SURGERY: 2 - 3B) Primary and secondary prevention of venous THROMBOSIS: 2 - 3C) Active venous thrombosis, pulmonary embolismand prevention of recurrent venous thrombosis: 2 - 3D) Prevention of arterial thromboembolismincluding patients with mechanical heart valves: 3 - 4.5 Leukocytes [#/volume] correc lucas for nucleated erythrocytes in Blood by Automated counOrdered By: Wesley Palacios on 05-21-2024 WBC corrected for nucl RBC Auto (Bld) [#/Vol] 8.2 10*3/uL 3.8-11.6 [facility] WBC corrected for nucl RBC Auto (Bld) [#/Vol] Leukocytes [#/volume] corrected for nucleated erythrocytes in Blood by Automated coun 3.8-11.6 [facility] Leukocytes [#/volume] in Blo od by Automated countOrdered By: Wesley Palacios on 05-21-2024 WBC (Bld) [#/Vol] 8.2 10*3/uL Normal 3.8-11.6 [facility] Comment on above: Performed By: #### H S TROP, BNP, CMP, CK #### [facility] [address] Lipase [Enzymatic activity/v olume] in Serum or PlasmaOrdered By: Wesley Palacios on 05-21-2024 Lipase [Catalytic activity/Vol] 32.0 U/L Normal 11.0-82.0 [facility] Comment on above: Result Comment: PERF ORMED BY: [facility] [address] [place] [address] PATHOLOGIST PANTOGRAPH II ENGRAVER RASHARD REA M.D. Performed By: #### L IPASE, BMP, HS TROP, HEPATIC ####[facility] [id number] Lipase [Catalytic activity/Vol] Lipase [Enzymatic activity/volume] in Serum or Plasma 11.0-82.0 [facility] Lymphocytes Auto (Bld) [#/Vo l]Ordered By: Wesley Palacios on 05-21-2024 Lymphocytes (Bld) [#/Vol] Lymphocytes [#/volume] in Blood by Automated count 1.00-4.8 [facility] Lymphocytes [#/volume] in Bl ood by Automated countOrdered By: Wesley Palacios on 05-21-2024 Lymphocytes (Bld) [#/Vol] 2.2 10*3/uL Normal 1.00-4.8 [facility] Comment on above: Performed By: #### H S TROP, BNP, CMP, CK #### [facility] [address] [place] [address] Lymphocytes/100 WBC Auto (Bl d)Ordered By: Wesley Palacios on 05-21-2024 Lymphocytes/100 WBC (Bld) Lymphocytes/100 leukocytes in Blood by Automated count . [facility] Lymphocytes/100 leukocytes i n Blood by Automated countOrdered By: Wesley Palacios on 05-21-2024 Lymphocytes/100 WBC (Bld) 26.9 % Normal . [facility] Comment on above: Performed By: #### H S TROP, BNP, CMP, CK #### [facility] [address] [place] [address] MCH Auto (RBC) [Entitic mass ]Ordered By: Wesley Palacios on 05-21-2024 MCH (RBC) [Entitic mass] MCH [Entitic mass] by Automated count 24.7-34.3 [facility] MCH [Entitic mass] by Automa lucas countOrdered By: Wesley Palacios on 05-21-2024 MCH (RBC) [Entitic mass] 30.3 pg Normal 24.7-34.3 [facility] Comment on above: Performed By: #### H S TROP, BNP, CMP, CK #### [facility] [address] [place] [address] MCHC Auto (RBC) [Mass/Vol]Or dered By: Wesley Palacios on 05-21-2024 MCHC (RBC) [Mass/Vol] 34.5 g/dL 32.0-35.0 [facility] MCHC (RBC) [Mass/Vol] MCHC [Mass/volume] by Automated count 32.0-35.0 [facility] MCV Auto (RBC) [Entitic vol] Ordered By: Wesley Palacios on 05-21-2024 MCV (RBC) [Entitic vol] MCV [Entitic vol ume] by Automated count 80-100 [facility] MCV [Entitic volume] by Auto mated countOrdered By: Wesley Palacios on 05-21-2024 MCV (RBC) [Entitic vol] 88.0 fL Normal 80-100 [facility] Comment on above: Performed By: #### H S TROP, BNP, CMP, CK #### [facility] [address] Monocyte distribution width [Entitic volume] in Blood by AutomatedOrdered By: Wesley Palacios on 05-21-2024 Monocyte distribution width Auto (Bld) [Entitic vol] 18.16 % 0.00-20.00 [facility] Monocyte distribution width Auto (Bld) [Entitic vol] Monocyte distribution width [Entitic volume] in Blood by Automated 0.00-20.00 [facility] Monocytes Auto (Bld) [#/Vol] Ordered By: Wesley Palacios on 05-21-2024 Monocytes (Bld) [#/Vol] Automated blood monocyte count 0.0-0.8 [facility] Monocytes/100 WBC Auto (Bld) Ordered By: Wesley Palacios on 05-21-2024 Monocytes/100 WBC (Bld) Automated monocyte % . [facility] Natriuretic peptide B [Mass/ Vol]Ordered By: Wesley Palacios on 05-21-2024 Natriuretic peptide B (Bld) [Mass/Vol] BNP ser/plas 5-100 [facility] Neutrophils Auto (Bld) [#/Vo l]Ordered By: Wesley Palacios on 05-21-2024 Neutrophils (Bld) [#/Vol] Neutrophils [#/volume] in Blood by Automated count 1.8-7.7 [facility] Neutrophils [#/volume] in Bl ood by Automated countOrdered By: Wesley Palacios on 05-21-2024 Neutrophils (Bld) [#/Vol] 4.7 10*3/uL Normal 1.8-7.7 [facility] Comment on above: Performed By: #### H S TROP, BNP, CMP, CK #### [facility] [address] [place] [address] [place] Neutrophils/100 WBC Auto (Bl d)Ordered By: Wesley Palacios on 05-21-2024 Neutrophils/100 WBC (Bld) Automated neutrophil % . [facility] No Panel InformationOrdered By: Wesley Palacios on 05-21-2024 Estimated GFR (CKD-EPI) 54.127 mL/Min [facility] Creatinine Clearance (Chem 55.36 [facility] Nucleated erythrocytes [Pres ence] in Blood by Automated countOrdered By: Wesley Palacios on 05-21-2024 Nucleated RBC Auto Ql (Bld) 0.1 /100{WBC} 0-0.5 [facility] Nucleated RBC Auto Ql (Bld) Nucleated erythrocytes [Presence] in Blood by Automated count 0-0.5 [facility] Platelet mean volume Auto (B ld) [Entitic vol]Ordered By: Wesley Palacios on 05-21-2024 Platelet mean volume (Bld) [Entitic vol] Platelet mean volume [Entitic volume] in Blood by Automated count 6.3-10.7 [facility] Platelet mean volume [Entiti c volume] in Blood by Automated countOrdered By: Wesley Palacios on 05-21-2024 Platelet mean volume (Bld) [Entitic vol] 8.6 fL Normal 6.3-10.7 [facility] Comment on above: Performed By: #### H S TROP, BNP, CMP, CK #### [facility] [address] [place] [address] [place] Platelets Auto (Bld) [#/Vol] Ordered By: Wesley Palacios on 05-21-2024 Platelets (Bld) [#/Vol] Platelets [#/vol ume] in Blood by Automated count 150-450 [facility] Platelets [#/volume] in Bloo d by Automated countOrdered By: Wesley Palacios on 05-21-2024 Platelets (Bld) [#/Vol] 328 10*3/uL Normal 150-450 [facility] Comment on above: Performed By: #### H S TROP, BNP, CMP, CK #### [facility] [address] [place] [address] [place] Potassium [Moles/volume] in Serum or PlasmaOrdered By: Wesley Palacios on 05-21-2024 Potassium [Moles/Vol] 3.7 mmol/L Normal 3.5-5.1 [facility] Comment on above: Performed By: #### L IPASE, BMP, HS TROP, HEPATIC ####[facility] [place] [id number] [facility] Potassium [Moles/Vol] Potassium [Moles/v olume] in Serum or Plasma 3.5-5.1 [facility] Protein [Mass/volume] in Ser um or PlasmaOrdered By: Wesley Palacios on 05-21-2024 Protein [Mass/Vol] 9.1 g/dL High 6.4-8.9 [facility] Comment on above: Performed By: #### L IPASE, BMP, HS TROP, HEPATIC ####[facility] [place] [address] [facility] Protein [Mass/Vol] Protein [Mass/volume ] in Serum or Plasma High 6.4-8.9 [facility] Prothrombin time (PT)Ordered By: Wesley Palacios on 05-21-2024 PT Coag (PPP) [Time] 11.3 s Normal 9.0-12.9 [facility] Comment on above: A hematocrit value g reater than 55% may lead to inaccurate results in coagulation testing. Patients having hematocrit values >55% require a special collection tube for coagulation studies. Please contact the laboratory at [phone] for redraw instructions. Result Comment: A he matocrit value greater than 55% may lead to inaccurate results in coagulation testing. Patients having hematocrit values >55% require a special collection tube for coagulation studies. Please contact the laboratory at [phone] for redraw instructions. Performed By: #### H S TROP, BNP, CMP, CK #### [facility] [address] [place] [address] [facility] PT Coag (PPP) [Time] Prothrombin time (PT) 9.0- 12.9 [facility] Comment on above: A hematocrit value g reater than 55% may lead to inaccurate results in coagulation testing. Patients having hematocrit values >55% require a special collection tube for coagulation studies. Please contact the laboratory at [phone] for redraw instructions. RBC Auto (Bld) [#/Vol]Ordere d By: Wesley Palacios on 05-21-2024 RBC (Bld) [#/Vol] Erythrocytes [#/volu me] in Blood by Automated count 3.60-5.00 [facility] Serum globulin measurement b y calculation (mass/volume)Ordered By: Wesley Palacios on 05-21-2024 Globulin (S) [Mass/Vol] 4.2 g/dL Normal [facility] Comment on above: Performed By: #### L IPASE, BMP, HS TROP, HEPATIC ####[place] [id number] [address] Serum or plasma albumin/glob ulin mass ratioOrdered By: Wesley Palacios on 05-21-2024 Albumin/Globulin [Mass ratio] 1.2 {ratio} Normal [facility] Comment on above: Performed By: #### L IPASE, BMP, HS TROP, HEPATIC ####[place] [address] [address] Albumin/Globulin [Mass ratio] Serum or plasma albumin/globulin mass ratio [facility] Serum or plasma anion gap de terminationOrdered By: Wesley Palacios on 05-21-2024 Anion gap [Moles/Vol] 13.7 mmol/L Normal 6.0-15.0 [facility] Comment on above: Performed By: #### L IPASE, BMP, HS TROP, HEPATIC ####[address] Anion gap [Moles/Vol] Serum or plasma an ion gap determination 6.0-15.0 [facility] Serum or plasma non-glucuron idated bilirubin measurement (mass/volume)Ordered By: Wesley Palacios on 05-21-2024 Bilirubin.indirect [Mass/Vol] 0.3 mg/dL [facility] Bilirubin.indirect [Mass/Vol] Serum or plasma non-glucuronidated bilirubin measurement (mass/volume) [facility] Sodium [Moles/volume] in Ser um or PlasmaOrdered By: Wesley Palacios on 05-21-2024 Sodium [Moles/Vol] 138 mmol/L Normal 136-145 [facility] Comment on above: Performed By: #### L IPASE, BMP, HS TROP, HEPATIC ####[place] [id number] [facility] Sodium [Moles/Vol] Sodium [Moles/volume ] in Serum or Plasma 136-145 [facility] Troponin I High Sensitivityo n 05-21-2024 Troponin I High Sensitivity 9.6 pg/mL Normal 0.0-15.0 [facility] Comment on above: Result Comment: PERF ORMED BY: [place] [address] PATHOLOGIST PANTOGRAPH II ENGRAVER RASHARD REA M.D. Performed By: #### H S TROP ####[address] Troponin I High Sensitivity 6.8 pg/mL Normal 0.0-15.0 [facility] Comment on above: Result Comment: PERF ORMED BY: [facility] [address] [place] [address] PATHOLOGIST PANTOGRAPH II ENGRAVER RASHARD REA M.D. Performed By: #### L IPASE, BMP, HS TROP, HEPATIC ####[address] Troponin I.cardiac [Mass/vol ume] in Serum or Plasma by Detection limit <= 0.01 ng/Ordered By: Wesley Palacios on 05-21-2024 Troponin I.cardiac DL <= 0.01 ng/mL [Mass/Vol] 9.6 pg/mL 0.0-15.0 [facility] Troponin I.cardiac DL <= 0.01 ng/mL [Mass/Vol] Troponin I.cardiac [Mass/volume] in Serum or Plasma by Detection limit <= 0.01 ng/ 0.0-15.0 [facility] Urea nitrogen [Mass/volume] in Serum or PlasmaOrdered By: Wesley Palacios on 05-21-2024 Urea nitrogen [Mass/Vol] 12 mg/dL Normal 7-25 [facility] Comment on above: Performed By: #### L IPASE, BMP, HS TROP, HEPATIC ####[place] [address] [place] [id number] [facility] Urea nitrogen [Mass/Vol] Urea nitrogen [Mass/volume] in Serum or Plasma 03-04 [facility] WBC Auto (Bld) [#/Vol]Ordere d By: Wesley Palacios on 05-21-2024 WBC (Bld) [#/Vol] Leukocytes [#/volume ] in Blood by Automated count 3.8-11.6 [facility] XR chest 2V*on 05-21-2024 XR chest 2V* [facility] [place] [address] [place], [place] [id number] XRay Report Signed Patient: Meredith Chaidez MR#: [id number] [birth year] : 1970 Acct:[id number] Age/Sex: 53 / F ADM Date: 05/21/24 Loc: ER Room: Type: [facility] ER Attending Dr: Copies to: Wesley Palacios PA-C Ordering Provider: Wesley Palacios PA-C Date of Service: 05/21/24 XR/XR chest 2V*: Shortness of Breath/Dyspnea XR chest 2V* 05/21/2024 4:06 PM SIGNS AND SYMPTOMS: Shortness of breath, midsternal chest tightness radiating to right side of chest PROTOCOL: Frontal and lateral radiograph of the chest COMPARISON: 04/28/2024 FINDINGS: The trachea is midline. The heart and mediastinal structures are within normal limits. The lung parenchyma is clear. The bony thorax is intact. Anterior fusion hardware is noted in the cervical spine. Degenerative changes are noted in the thoracic spine. XR/XR chest 2V* IMPRESSION: No acute cardiopulmonary pathology. Impression dictated by: Dominik Guzman M.D.05/21/2024 4:44 PM Dictation Location: [place] [address] Transcribed By: [facility] 05/21/241643 Dictated By: Dominik Guzman II, MD 05/21/241642 Signed By: 05/21/241643 Normal [facility] Alanine aminotransferase [En zymatic activity/volume] in Serum or PlasmaOrdered By: LUCI RICHARDSON on 04-28-2024 ALT [Catalytic activity/Vol] 20 U/L Normal [facility] Comment on above: Performed By: #### H S TROP, BNP, CMP, CK #### [facility] [address] [place] [address] Albumin [Mass/volume] in Ser um or Plasma by Bromocresol green (BCG) dye binding methoOrdered By: PROVIDER TEMP on 04-28-2024 Albumin BCG dye [Mass/Vol] 4.6 g/dL 3.5-5.7 [facility] Alkaline phosphatase [Enzyma tic activity/volume] in Serum or PlasmaOrdered By: PROVIDER TEMP on 04-28-2024 ALP [Catalytic activity/Vol] 80 U/L Normal 34-104 [facility] Comment on above: Performed By: #### H S TROP, BNP, CMP, CK #### [facility] [address] [place] [address] Aspartate aminotransferase [ Enzymatic activity/volume] in Serum or PlasmaOrdered By: PROVIDER TEMP on 04-28-2024 AST [Catalytic activity/Vol] 22 U/L Normal 13-39 [facility] Comment on above: Performed By: #### H S TROP, BNP, CMP, CK #### [facility] [address] [place] [address] Automated basophil %Ordered By: Mae Rivera on 04-28-2024 Basophils/100 WBC (Bld) 3.1 % Normal . [facility] Comment on above: Performed By: #### C BC ####[address] Automated basophil countOrde red By: Mae Rivera on 04-28-2024 Basophils (Bld) [#/Vol] 0.2 10*3/uL Normal 0.0-0.2 [facility] Comment on above: Result Comment: PERF ORMED BY: [place] [address] PATHOLOGIST PANTOGRAPH II ENGRAVER RASHARD REA M.D. Performed By: #### C BC ####[address] Automated blood monocyte cou ntOrdered By: Mae Rivera on 04-28-2024 Monocytes (Bld) [#/Vol] 0.6 10*3/uL Normal 0.0-0.8 [facility] Comment on above: Performed By: #### C BC ####[place] [id number] [address] Automated eosinophil %Ordere d By: Mae Rivera on 04-28-2024 Eosinophils/100 WBC (Bld) 4.8 % Normal . [facility] Comment on above: Performed By: #### C BC ####[address] Automated eosinophil countOr dered By: Mae Rivera on 04-28-2024 Eosinophils (Bld) [#/Vol] 0.3 10*3/uL Normal 0.0-0.45 [facility] Comment on above: Performed By: #### C BC ####[address] Automated monocyte %Ordered By: Mae Rivera on 04-28-2024 Monocytes/100 WBC (Bld) 9.0 % Normal . [facility] Comment on above: Performed By: #### C BC ####[address] Automated neutrophil %Ordere d By: Mae Rivera on 04-28-2024 Neutrophils/100 WBC (Bld) 43.3 % Normal . [facility] Comment on above: Performed By: #### C BC ####[address] BNP ser/plasOrdered By: Wei Rivera on 04-28-2024 Natriuretic peptide B (Bld) [Mass/Vol] 9.0 pg/mL Normal 5-100 [facility] Comment on above: Result Comment: PERF ORMED BY: [facility] [address] [facility] [place] [address] PATHOLOGIST PANTOGRAPH II ENGRAVER RASHARD REA M.D. Performed By: #### H S TROP, BNP, CMP, CK #### [facility] [address] [place] [address] [place] Bilirubin.total [Mass/volume ] in Serum or PlasmaOrdered By: PROVIDER DYLAN on 04-28-2024 Bilirubin [Mass/Vol] 0.5 mg/dL Normal 0.3-1.0 [facility] Comment on above: Performed By: #### H S TROP, BNP, CMP, CK #### [facility] [address] COVID CepheidOrdered By: Bart Rivera on 04-28-2024 SARS-CoV-2 (COVID-19) Ab IA Ql Negative Negative [facility] Comment on above: This is a duplicate Cepheid Xpert Xpress CoV-2/Flu/RSV Plus RNA by RT-PCR result to be used for statistical tracking purpose only. SARS-CoV-2 (COVID-19) RNA JAMES+probe Ql (Unsp spec) [facility] COVID-19 / Flu A/B / RSV PCR on 04-28-2024 SARS-CoV-2 (COVID-19) RNA JAMES+probe Ql (Unsp spec) COVID-19 Cepheid Result Negative for SARS-CoV-2 RNA by RT-PCR Flu A Cepheid Result Negative for Flu A RNA by RT-PCR Flu B Cepheid Result Negative for Flu B RNA by RT-PCR RSV Cepheid Result Negative for RSV RNA by RT-PCR COVID19 Blank Space ---- Reference: Negative COVID19 Blank Space ---- Cepheid Disclaimer The Cepheid Xpert Xpress CoV-2/Flu/RSV Plus has Cepheid Disclaimer not been FDA cleared or approved; this test has Cepheid Disclaimer been authorized by FDA under an EUA for use by Cepheid Disclaimer authorized laboratories; this test has been Cepheid Disclaimer authorized only for the simultaneous qualitative Cepheid Disclaimer detection and differentiation of nucleic acids from Cepheid Disclaimer SARS-CoV-2, influenza A, influenza B, and Cepheid Disclaimer respiratory syncytial virus (RSV), and not for any Cepheid Disclaimer other viruses or pathogens; and this test is only Cepheid Disclaimer authorized for the duration of the declaration that Cepheid Disclaimer circumstances exist justifying the authorization of Cepheid Disclaimer emergency use of in vitro diagnostic tests for Cepheid Disclaimer detection and/or diagnosis of COVID-19 under Cepheid Disclaimer Section 564(b)(1) of the Act, 21 U.S.C. 360bbb- Cepheid Disclaimer 3(b)(1), unless the authorization is terminated or Cepheid Disclaimer revoked sooner. PERFORMED BY: [place] [address] PATHOLOGIST PANTOGRAPH II ENGRAVER RASHARD REA M.D. Normal [facility] Comment on above: Performed By: #### C EPHEID NEG, COVID19 FLU RSV ####[facility] [address] [place] [id number] [facility] Calcium [Mass/volume] in Ser um or PlasmaOrdered By: PROVIDER TEMP on 04-28-2024 Calcium [Mass/Vol] 10.3 mg/dL Normal 8.6-10.3 [facility] Comment on above: Performed By: #### H S TROP, BNP, CMP, CK #### [facility] [address] [place], [place] [id number] [facility] Carbon dioxide, total [Moles /volume] in Serum or PlasmaOrdered By: PROVIDER TEMP on 04-28-2024 CO2 [Moles/Vol] 23.4 mmol/L Normal 21.0-31.0 [facility] Comment on above: Performed By: #### H S TROP, BNP, CMP, CK #### [facility] [address] [place], [place] [id number] [facility] Cepheid COVID PCR Negativeon 04-28-2024 SARS-CoV-2 (COVID-19) RNA JAMES+probe Ql (Unsp spec) Negative Normal Negative [facility] Comment on above: Result Comment: This is a duplicate Cepheid Xpert Xpress CoV-2/Flu/RSV Plus RNA by RT-PCR result to be used for statistical tracking purpose only. PERFORMED BY: [place] [address] PATHOLOGIST PANTOGRAPH II ENGRAVER RASHARD REA M.D. Performed By: #### C EPHEID NEG, COVID19 FLU RSV ####[address] Chloride [Moles/volume] in S uzair or PlasmaOrdered By: PROVIDER TEMP on 04-28-2024 Chloride [Moles/Vol] 105 mmol/L Normal 98-107 [facility] Comment on above: Performed By: #### H S TROP, BNP, CMP, CK #### [address] Complete Blood Count Auto Di ffon 04-28-2024 Mean Corpuscular HGB Conc 34.2 g/dL Normal 32.0-35.0 [facility] Comment on above: Performed By: #### C BC ####[address] Monocytes/100 WBC (Bld) 16.76 % Normal 0.00-20.00 [facility] Comment on above: Performed By: #### C BC ####[address] NRBC% 0.1 /100{WBC} Normal 0-0.5 [facility] Comment on above: Performed By: #### C BC ####[address] Comprehensive Metabolic Pane tru 04-28-2024 Albumin [Mass/Vol] 4.6 g/dL Normal 3.5-5.7 [facility] Comment on above: Performed By: #### H S TROP, BNP, CMP, CK #### [address] Creatinine Clr Calc Pharmacy 68.56 Normal [facility] Comment on above: Result Comment: PERF ORMED BY: [address] [place] [address] PATHOLOGIST PANTOGRAPH II ENGRAVER RASHARD REA M.D. Performed By: #### H S TROP, BNP, CMP, CK #### [address] GFR/1.73 sq M.predicted MDRD (S/P/Bld) [Vol rate/Area] mL/min/{1.73_m2} Normal [facility] Comment on above: Performed By: #### H S TROP, BNP, CMP, CK #### [address] Creatine kinase [Enzymatic a ctivity/volume] in Serum or PlasmaOrdered By: Mae Rivera on 04-28-2024 CK [Catalytic activity/Vol] 136 U/L Normal 30-223 [facility] Comment on above: Performed By: #### H S TROP, BNP, CMP, CK #### [address] Creatinine [Mass/volume] in Serum or PlasmaOrdered By: PROVIDER TEMP on 04-28-2024 Creatinine [Mass/Vol] 0.98 mg/dL Normal 0.60-1.20 [facility] Comment on above: Performed By: #### H S TROP, BNP, CMP, CK #### [address] ECG 12 lead ECGon 04-28-2024 ECG 12 lead ECG [facility] [place] [address] [place] [address] Electrocardiograph Report Signed Patient: Meredith Chaidez MR#: [id number] [birth year] : 1970 Acct:[id number] Age/Sex: 53 / F ADM Date: 04/28/24 Loc: ER Room: Type: [facility] ER Attending Dr: Ordering Provider: Mae Rivera Jr, MD Date of Service: 04/28/24 ECG/ECG 12 lead ECG: Shortness of Breath/Dyspnea Copies to: Test Reason : Blood Pressure : 140/85 mmHG Vent. Rate : 72 BPM Atrial Rate : 72 BPM P-R Int : 164 ms QRS Dur : 80 ms QT Int : 402 ms P-R-T Axes : 61 50 42 degrees QTcB Int : 440 ms Normal sinus rhythm Low voltage QRS Cannot rule out Anterior infarct (cited on or before 05-Feb-2024) Abnormal ECG When compared with ECG of 05-Feb-2024 13:55, Questionable change in QRS axis Confirmed by MAE RIVERA MD ([id number]) on 04/30/2024 5:19:01 AM Referred By: Electronically Signed By: MAE RIVERA MD Transcribed By: MUS Signed By Mae Rivera Jr, MD 0519 Normal [facility] Erythrocyte distribution wid th [Ratio] by Automated countOrdered By: Mae Rivera on 04-28-2024 Erythrocyte distribution width (RBC) [Ratio] 14.1 % Normal 11.9-15.3 [facility] Comment on above: Performed By: #### C BC ####[place] [address] [address] Erythrocytes [#/volume] in B lood by Automated countOrdered By: Mae Rivera on 04-28-2024 RBC (Bld) [#/Vol] 4.75 10*6/uL Normal 3.60-5.00 [facility] Comment on above: Performed By: #### C BC ####[address] Glucose [Mass/volume] in Ser um or PlasmaOrdered By: PROVIDER TEMP on 04-28-2024 Glucose [Mass/Vol] 82 mg/dL Normal 70-100 [facility] Comment on above: ADA recommended refe rence rangeRandom Glucose Reference Range is dependent on time and content of last meal. Glucose of more than 200 mg/dL in a nonstressed, ambulatory subject supports the diagnosis of Diabetes Mellitus. Result Comment: [place] om Glucose Reference Range is dependent on time and content of last meal. Glucose of more than 200 mg/dL in a nonstressed, ambulatory subject supports the diagnosis of Diabetes Mellitus. ADA recommended reference range Performed By: #### H S TROP, BNP, CMP, CK #### [facility] [address] [place] [address] [place] Hematocrit [Volume Fraction] of Blood by Automated countOrdered By: Mae Rivera on 04-28-2024 Hematocrit (Bld) [Volume fraction] 41.0 % Normal 34.0-46.4 [facility] Comment on above: Performed By: #### C BC ####[address] Hemoglobin [Mass/volume] in BloodOrdered By: Mae Rivera on 04-28-2024 Hemoglobin (Bld) [Mass/Vol] 14.0 g/dL Normal 11.8-15.4 [facility] Comment on above: Performed By: #### C BC ####[address] Leukocytes [#/volume] correc lucas for nucleated erythrocytes in Blood by Automated counOrdered By: Mae Rivera on 04-28-2024 WBC corrected for nucl RBC Auto (Bld) [#/Vol] 6.8 10*3/uL 3.8-11.6 [facility] Leukocytes [#/volume] in Blo od by Automated countOrdered By: Mae Rivera on 04-28-2024 WBC (Bld) [#/Vol] 6.8 10*3/uL Normal 3.8-11.6 [facility] Comment on above: Performed By: #### C BC ####[address] Lymphocytes [#/volume] in Bl ood by Automated countOrdered By: Mae Rivera on 04-28-2024 Lymphocytes (Bld) [#/Vol] 2.7 10*3/uL Normal 1.00-4.8 [facility] Comment on above: Performed By: #### C BC ####[place] [id number] [facility] Lymphocytes/100 leukocytes i n Blood by Automated countOrdered By: Mae Rivera on 04-28-2024 Lymphocytes/100 WBC (Bld) 39.8 % Normal . [facility] Comment on above: Performed By: #### C BC ####[place] [id number] [facility] MCH [Entitic mass] by Automa lucas countOrdered By: Mae Rivera on 04-28-2024 MCH (RBC) [Entitic mass] 29.6 pg Normal 24.7-34.3 [facility] Comment on above: Performed By: #### C BC ####[place] [id number] [address] MCHC Auto (RBC) [Mass/Vol]Or dered By: Mae Rivera on 04-28-2024 MCHC (RBC) [Mass/Vol] 34.2 g/dL 32.0-35.0 [facility] MCV [Entitic volume] by Auto mated countOrdered By: Mae Rivera on 04-28-2024 MCV (RBC) [Entitic vol] 86.4 fL Normal 80-100 [facility] Comment on above: Performed By: #### C BC ####[address] Magnesium [Mass/volume] in S uzair or PlasmaOrdered By: Luz Walker on 04-28-2024 Magnesium [Mass/Vol] 1.6 mg/dL Low 1.9-2.7 [facility] Comment on above: Order Comment: Comme nt add Result Comment: PERF ORMED BY: [place] [address] PATHOLOGIST PANTOGRAPH II ENGRAVER RASHARD REA M.D. Performed By: #### H S TROP, BNP, CMP, CK #### [facility] [address] [place] [address] Monocyte distribution width [Entitic volume] in Blood by AutomatedOrdered By: Mae Rivera on 04-28-2024 Monocyte distribution width Auto (Bld) [Entitic vol] 16.76 % 0.00-20.00 [facility] Neutrophils [#/volume] in Bl ood by Automated countOrdered By: Mae Rivera on 04-28-2024 Neutrophils (Bld) [#/Vol] 2.9 10*3/uL Normal 1.8-7.7 [facility] Comment on above: Performed By: #### C BC ####[address] No Panel InformationOrdered By: PROVIDER TEMP on 04-28-2024 Estimated GFR (CKD-EPI) > 60.0 mL/Min [facility] Creatinine Clearance (Chem 68.56 [facility] Nucleated erythrocytes [Pres ence] in Blood by Automated countOrdered By: Mae Rivera on 04-28-2024 Nucleated RBC Auto Ql (Bld) 0.1 /100{WBC} 0-0.5 [facility] Platelet mean volume [Entiti c volume] in Blood by Automated countOrdered By: Mae Rivera on 04-28-2024 Platelet mean volume (Bld) [Entitic vol] 7.9 fL Normal 6.3-10.7 [facility] Comment on above: Performed By: #### C BC ####[facility] [id number] Platelets [#/volume] in Bloo d by Automated countOrdered By: Mae Rivera on 04-28-2024 Platelets (Bld) [#/Vol] 283 10*3/uL Normal 150-450 [facility] Comment on above: Performed By: #### C BC ####[facility] [id number] [place] [address] Potassium [Moles/volume] in Serum or PlasmaOrdered By: PROVIDER TEMP on 04-28-2024 Potassium [Moles/Vol] 3.9 mmol/L Normal 3.5-5.1 [facility] Comment on above: Performed By: #### H S TROP, BNP, CMP, CK #### [facility] [address] [place] [address] [place] Protein [Mass/volume] in Ser um or PlasmaOrdered By: PROVIDER TEMP on 04-28-2024 Protein [Mass/Vol] 8.3 g/dL Normal 6.4-8.9 [facility] Comment on above: Performed By: #### H S TROP, BNP, CMP, CK #### [facility] [address] Serum globulin measurement b y calculation (mass/volume)Ordered By: PROVIDER TEMP on 04-28-2024 Globulin (S) [Mass/Vol] 3.7 g/dL Normal [facility] Comment on above: Performed By: #### H S TROP, BNP, CMP, CK #### [facility] [address] [place] [address] Serum or plasma albumin/glob ulin mass ratioOrdered By: PROVIDER TEMP on 04-28-2024 Albumin/Globulin [Mass ratio] 1.2 {ratio} Normal [facility] Comment on above: Performed By: #### H S TROP, BNP, CMP, CK #### [facility] [address] [place] [address] Serum or plasma anion gap de terminationOrdered By: PROVIDER TEMP on 04-28-2024 Anion gap [Moles/Vol] 13.5 mmol/L Normal 6.0-15.0 [facility] Comment on above: Performed By: #### H S TROP, BNP, CMP, CK #### [facility] [address] [place] [address] Sodium [Moles/volume] in Ser um or PlasmaOrdered By: PROVIDER TEMP on 04-28-2024 Sodium [Moles/Vol] 138 mmol/L Normal 136-145 [facility] Comment on above: Performed By: #### H S TROP, BNP, CMP, CK #### [address] Troponin I High Sensitivityo n 04-28-2024 Troponin I High Sensitivity 3.1 pg/mL Normal 0.0-15.0 [facility] Comment on above: Result Comment: PERF ORMED BY: [place] [address] PATHOLOGIST PANTOGRAPH II ENGRAVER RASHARD REA M.D. Performed By: #### H S TROP, BNP, CMP, CK #### [facility] [address] [place] [address] Troponin I.cardiac [Mass/vol ume] in Serum or Plasma by Detection limit <= 0.01 ng/Ordered By: Mae Rivera on 04-28-2024 Troponin I.cardiac DL <= 0.01 ng/mL [Mass/Vol] 3.1 pg/mL 0.0-15.0 [facility] Urea nitrogen [Mass/volume] in Serum or PlasmaOrdered By: PROVIDER TEMP on 04-28-2024 Urea nitrogen [Mass/Vol] 14 mg/dL Normal 7- [facility] Comment on above: Performed By: #### H S TROP, BNP, CMP, CK #### [address] XR chest 2V*on 04-28-2024 XR chest 2V* [facility] [place] [address] XRay Report Signed Patient: Meredith Chaidez MR#: [id number] [birth year] : 1970 Acct:[id number] Age/Sex: 53 / F ADM Date: 04/28/24 Loc: ER Room: Type: PRE ER Attending Dr: Copies to: Mae Rivera Jr, MD Ordering Provider: Mae Rivera Jr, MD Date of Service: 04/28/24 XR/XR chest 2V*: Shortness of Breath/Dyspnea Chest 2 views CLINICAL HISTORY: Shortness of breath worsening for 2 weeks chest pressure. COMPARISON: Chest 04/27/2024 FINDINGS: Heart normal in size. Lungs are clear. No free air. XR/XR chest 2V* IMPRESSION: NO ACUTE CARDIOPULMONARY ABNORMALITY. Impression dictated by: Elliott Mehta Jr., D.O.04/28/2024 9:04 PM Dictation Location: [place] [address] Transcribed By: [facility] 04/28/242103 Dictated By: Elliott Mehat Jr, DO 04/28/242102 Signed By: 04/28/242103 Normal [facility] XR chest 2V*on 04-27-2024 XR chest 2V* [facility] [place] [address] XRay Report Signed Patient: Meredith Chaidez MR#: [id number] [birth year] : 1970 Acct:[id number] Age/Sex: 53 / F ADM Date: 04/27/24 Loc: XD Room: Type: REG CLI Attending Dr: Eduin Perez DO Copies to: Eduin Perez DO Ordering Provider: Eduin Perez DO Date of Service: 04/27/24 XR/XR chest 2V*: Bronchitis PA AND LATERAL CHEST: CLINICAL HISTORY: Shortness of breath and chest discomfort for the past week. COMPARISON: 02/21/2024 There is no developing consolidation, effusion or pneumothorax. The cardiac, hilar and mediastinal silhouettes are within normal limits. There is no vascular congestion. The visualized bony thorax is intact. End plate spurring is present. XR/XR chest 2V* IMPRESSION: NO ACUTE CARDIOPULMONARY ABNORMALITY. Impression dictated by: Maureen Macdonald M.D.04/27/2024 2:58 PM Dictation Location: [facility]--10 Transcribed By: [facility] 04/27/24 1458 Dictated By: Maureen Macdonald MD 04/27/241457 Signed By: 04/27/241457 Normal [facility] Urine culture routineOrdered By: Eduin Perez on 02-23-2024 Bacteria identified Cx Nom (U) 2 Days [facility] Blood Mycobacterium tubercul osis tuberculin stimulated gamma interferon detectionOrdered By: Ashanti Baldwin on 02-10-2024 M. tuberculosis tuberculin stim IFN-g Ql (Bld) See comment . [facility] Comment on above: QuantiFERON-TB Gold Plus is a qualitative indirect test forM tuberculosis infection (including disease) and isintended for use in conjunction with risk assessment,radiography, and other medical and diagnostic evaluations.The QuantiFERON-TB Gold Plus result is determined bysubtracting the Nil value from either TB antigen (Ag)value. The Mitogen tube serves as a control for the test. M. tuberculosis tuberculin stim IFN-g Ql (Bld) 0.04 [IU]/mL . [facility] M. tuberculosis tuberculin stim IFN-g Ql (Bld) 0.01 [IU]/mL . [facility] Blood mitogen stimulated chau ma interferon measurement (units/volume)Ordered By: Ashanti Baldwin on 02-10-2024 Mitogen stimulated gamma interferon Qn (Bld) >10.00 [IU]/mL . [facility] Hepatitis B virus surface Ab [Presence] in SerumOrdered By: Ashanti Baldwin on 07-02-2024 HBV surface Ab Ql (S) Non-Reactive . [facility] Comment on above: Non Reactive: Incons istent with immunity, less than 10 mIU/mL Reactive: Consistent with immunity, greater than 9.9 mIU/mL Hepatitis B virus surface Ag [Presence] in Serum or Plasma by ImmunoassayOrdered By: Ashanti Baldwin on 02-10-2024 HBV surface Ag IA Ql Negative Negative [facility] Hepatitis C virus IgG Ab [Pr esence] in Serum or Plasma by ImmunoassayOrdered By: Ashanti Baldwin on 02-10-2024 HCV IgG IA Ql Non-Reactive Non Reactive [facility] Mycobacterium tuberculosis s timulated gamma interferon [Interpretation] in Blood QualOrdered By: Ashanti Baldwin on 02-10-2024 M. tuberculosis stim IFN-g Ql (Bld) [Interp] Negative Negative [facility] Comment on above: No response to M tub erculosis antigens detected.Infection with M tuberculosis is unlikely, but high riskindividuals should be considered for additional testing(ATS/IDSA/CDC Clinical Practice Guidelines, 2017). Thereference range is an Antigen minus Nil result of <0.35IU/mL.The specimen received for QuantiFERON testing was incubatedby the ordering institution. Specific procedures outlinedin our Directory of Services and in the package insert forthe QuantiFERON Gold (In Tube) test must be followed toenable for proper stimulation of cells for the productionof interferon gamma. Chemiluminescence immunoassaymethodologyPerformed at: [facility] [address] [id number] Director: Vahe Middleton PhD, Phone: [phone] No Panel InformationOrdered By: Ashanti Baldwin on 02-10-2024 Hepatitis B Core Total Antibody Negative Negative [facility] Comment on above: Performed at: [facility] [address] [id number] Director: Vahe Middleton PhD, Phone: [phone] Hepatitis C Interpretation See comment . [facility] Comment on above: Not infected with HC V unless early or acute infection issuspected (which may be delayed in an immunocompromisedindividual), or other evidence exists to indicate HCVinfection. Whole blood measurement of M ycobacterium tuberculosis stimulated gamma interferon relOrdered By: Ashanti Baldiwn on 02-10-2024 M. tuberculosis stim IFN-g by CD4+ CD8+ T-cells corrected for background Qn (Bld) 0.06 [IU]/mL . [facility] Alanine aminotransferase [En zymatic activity/volume] in Serum or PlasmaOrdered By: Wesley Palacios on 02-05-2024 ALT [Catalytic activity/Vol] 21 U/L 7-52 [facility] Albumin [Mass/volume] in Ser um or Plasma by Bromocresol green (BCG) dye binding methoOrdered By: Wesley Palacios on 02-05-2024 Albumin BCG dye [Mass/Vol] 4.4 g/dL 3.5-5.7 [facility] Alkaline phosphatase [Enzyma tic activity/volume] in Serum or PlasmaOrdered By: Wesley Palacios on 02-05-2024 ALP [Catalytic activity/Vol] 84 U/L 34-104 [facility] Aspartate aminotransferase [ Enzymatic activity/volume] in Serum or PlasmaOrdered By: Wesley Palacios on 02-05-2024 AST [Catalytic activity/Vol] 29 U/L 13-39 [facility] Bacteria [Presence] in Urine by AutomatedOrdered By: Wesley Palacios on 02-05-2024 Bacteria Auto Ql (U) None seen [HPF] None Seen [facility] Basophils Auto (Bld) [#/Vol] Ordered By: Wesley Palacios on 02-05-2024 Basophils (Bld) [#/Vol] 0.1 10*3/uL 0.0-0.2 [facility] Basophils/100 WBC Auto (Bld) Ordered By: Wesley Palacios on 02-05-2024 Basophils/100 WBC (Bld) 1.4 % . [facility] Bilirubin Test strip Ql (U)O rdered By: Wesley Palacios on 02-05-2024 Bilirubin Ql (U) Negative Negative [facility] Bilirubin.total [Mass/volume ] in Serum or PlasmaOrdered By: Wesley Palacios on 02-05-2024 Bilirubin [Mass/Vol] 0.4 mg/dL 0.3-1.0 [facility] Calcium [Mass/volume] in Ser um or PlasmaOrdered By: Wesley Palacios on 02-05-2024 Calcium [Mass/Vol] 9.8 mg/dL 8.6-10.3 [facility] Carbon dioxide, total [Moles /volume] in Serum or PlasmaOrdered By: Wesley Palacios on 02-05-2024 CO2 [Moles/Vol] 24.2 mmol/L 21.0-31.0 [facility] Chloride [Moles/volume] in S uzair or PlasmaOrdered By: Wesley Palacios on 02-05-2024 Chloride [Moles/Vol] 104 mmol/L 98-107 [facility] Color Auto (U)Ordered By: Alin Palacios on 02-05-2024 Color (U) Light-yellow Yellow [facility] Creatinine [Mass/volume] in Serum or PlasmaOrdered By: Wesley Palacios on 02-05-2024 Creatinine [Mass/Vol] 0.95 mg/dL 0.60-1.20 [facility] Eosinophils Auto (Bld) [#/Vo l]Ordered By: Wesley Palacios on 02-05-2024 Eosinophils (Bld) [#/Vol] 0.2 10*3/uL 0.0-0.45 [facility] Eosinophils/100 WBC Auto (Bl d)Ordered By: Wesley Palacios on 02-05-2024 Eosinophils/100 WBC (Bld) 3.2 % . [facility] Epithelial cells.squamous [# /area] in Urine sediment by Automated countOrdered By: Wesley Palacios on 02-05-2024 Epithelial cells.squamous Auto (Urine sed) [#/Area] 1-2 [HPF] 0-2 [facility] Erythrocyte distribution wid th Auto (RBC) [Ratio]Ordered By: Wesley Palacios on 02-05-2024 Erythrocyte distribution width (RBC) [Ratio] 13.6 % 11.9-15.3 [facility] Erythrocytes [#/area] in Uri ne sediment by Automated countOrdered By: Wesley Palacios on 02-05-2024 RBC Auto (Urine sed) [#/Area] 1-2 [HPF] 0-4 [facility] Globulin Calc (S) [Mass/Vol] Ordered By: Wesley Palacios on 02-05-2024 Globulin (S) [Mass/Vol] 3.8 g/dL [facility] Glucose [Mass/volume] in Ser um or PlasmaOrdered By: Wesley Palacios on 02-05-2024 Glucose [Mass/Vol] 77 mg/dL 70-100 [facility] Comment on above: ADA recommended refe rence rangeRandom Glucose Reference Range is dependent on time and content of last meal. Glucose of more than 200 mg/dL in a nonstressed, ambulatory subject supports the diagnosis of Diabetes Mellitus. Glucose [Mass/volume] in Uri ne by Test stripOrdered By: Wesley Palacios on 02-05-2024 Glucose Test strip (U) [Mass/Vol] Normal mg/dL Normal [facility] Hematocrit Auto (Bld) [Volum e fraction]Ordered By: Wesley Palacios on 02-05-2024 Hematocrit (Bld) [Volume fraction] 42.0 % 34.0-46.4 [facility] Hemoglobin Test strip Ql (U) Ordered By: Wesley Palacios on 02-05-2024 Hemoglobin Ql (U) Negative Negative [facility] Hemoglobin [Mass/volume] in BloodOrdered By: Wesley Palacios on 02-05-2024 Hemoglobin (Bld) [Mass/Vol] 14.2 g/dL 11.8-15.4 [facility] Hyaline casts [#/area] in Ur ine sediment by Automated countOrdered By: Wesley Palacios on 02-05-2024 Hyaline casts Auto (Urine sed) [#/Area] None [LPF] 0-8 [facility] Ketones Test strip Ql (U)Ord ered By: Wesley Palacios on 02-05-2024 Ketones Ql (U) Negative Negative [facility] Leukocyte esterase [Presence ] in Urine by Test stripOrdered By: Wesley Palacios on 02-05-2024 Leukocyte esterase Test strip Ql (U) 1+ High Negative [facility] Leukocytes [#/area] in Urine sediment by Automated countOrdered By: Wesley Palacios on 02-05-2024 WBC Auto (Urine sed) [#/Area] 1-2 [HPF] 0-4 [facility] Leukocytes [#/volume] correc lucas for nucleated erythrocytes in Blood by Automated counOrdered By: Wesley Palacios on 02-05-2024 WBC corrected for nucl RBC Auto (Bld) [#/Vol] 5.8 10*3/uL 3.8-11.6 [facility] Lymphocytes Auto (Bld) [#/Vo l]Ordered By: Wesley Palacios on 02-05-2024 Lymphocytes (Bld) [#/Vol] 2.5 10*3/uL 1.00-4.8 [facility] Lymphocytes/100 WBC Auto (Bl d)Ordered By: Wesley Palacios on 02-05-2024 Lymphocytes/100 WBC (Bld) 43.8 % . [facility] MCH Auto (RBC) [Entitic mass ]Ordered By: Wesley Palacios on 02-05-2024 MCH (RBC) [Entitic mass] 29.9 pg 24.7-34.3 [facility] MCHC Auto (RBC) [Mass/Vol]Or dered By: Wesley Palacios on 02-05-2024 MCHC (RBC) [Mass/Vol] 33.9 g/dL 32.0-35.0 [facility] MCV Auto (RBC) [Entitic vol] Ordered By: Wesley Palacios on 02-05-2024 MCV (RBC) [Entitic vol] 88.1 fL 80-100 [facility] Monocyte distribution width [Entitic volume] in Blood by AutomatedOrdered By: Wesley Palacios on 02-05-2024 Monocyte distribution width Auto (Bld) [Entitic vol] 20.18 % High 0.00-20.00 [facility] Comment on above: For adults in ED, MD W > 20.0 may be associated with a higher risk of sepsis during the first 12 hrs of hospital admission Monocytes Auto (Bld) [#/Vol] Ordered By: Wesley Palacios on 02-05-2024 Monocytes (Bld) [#/Vol] 0.5 10*3/uL 0.0-0.8 [facility] Monocytes/100 WBC Auto (Bld) Ordered By: Wesley Palacios on 02-05-2024 Monocytes/100 WBC (Bld) 9.1 % . [facility] Mucus [Presence] in Urine by AutomatedOrdered By: Wesley Palacios on 02-05-2024 Mucus Auto Ql (U) Rare [LPF] [facility] Natriuretic peptide B [Mass/ Vol]Ordered By: Wesley Palacios on 02-05-2024 Natriuretic peptide B (Bld) [Mass/Vol] 7.0 pg/mL 5-100 [facility] Neutrophils Auto (Bld) [#/Vo l]Ordered By: Wesley Palacios on 02-05-2024 Neutrophils (Bld) [#/Vol] 2.5 10*3/uL 1.8-7.7 [facility] Neutrophils/100 WBC Auto (Bl d)Ordered By: Wesley Palacios on 02-05-2024 Neutrophils/100 WBC (Bld) 42.5 % . [facility] Nitrite Test strip Ql (U)Ord ered By: Wesley Palacios on 02-05-2024 Nitrite Ql (U) Negative Negative [facility] No Panel InformationOrdered By: Wesley Palacios on 02-05-2024 Estimated GFR (CKD-EPI) > 60.0 mL/Min [facility] Creatinine Clearance (Chem 69.30 [facility] Nucleated erythrocytes [Pres ence] in Blood by Automated countOrdered By: Wesley Palacios on 02-05-2024 Nucleated RBC Auto Ql (Bld) 0.2 /100{WBC} 0-0.5 [facility] Platelet mean volume Auto (B ld) [Entitic vol]Ordered By: Wesley Palacios on 02-05-2024 Platelet mean volume (Bld) [Entitic vol] 8.7 fL 6.3-10.7 [facility] Platelets Auto (Bld) [#/Vol] Ordered By: Wesley Palacios on 02-05-2024 Platelets (Bld) [#/Vol] 315 10*3/uL 150-450 [facility] Potassium [Moles/volume] in Serum or PlasmaOrdered By: Wesley Palacios on 02-05-2024 Potassium [Moles/Vol] 4.0 mmol/L 3.5-5.1 [facility] Protein Test strip (U) [Mass /Vol]Ordered By: Wesley Palacios on 02-05-2024 Protein (U) [Mass/Vol] Negative Negative [facility] Protein [Mass/volume] in Ser um or PlasmaOrdered By: Wesley Palacios on 02-05-2024 Protein [Mass/Vol] 8.2 g/dL 6.4-8.9 [facility] RBC Auto (Bld) [#/Vol]Ordere d By: Wesley Palacios on 02-05-2024 RBC (Bld) [#/Vol] 4.76 10*6/uL 3.60-5.00 [facility] Serum or plasma albumin/glob ulin mass ratioOrdered By: Wesley Palacios on 02-05-2024 Albumin/Globulin [Mass ratio] 1.2 {ratio} [facility] Serum or plasma anion gap de terminationOrdered By: Wesley Palacios on 02-05-2024 Anion gap [Moles/Vol] 13.8 mmol/L 6.0-15.0 [facility] Sodium [Moles/volume] in Ser um or PlasmaOrdered By: Wesley Palacios on 02-05-2024 Sodium [Moles/Vol] 138 mmol/L 136-145 [facility] Specific gravity Test strip (U) [Rel density]Ordered By: Wesley Palacios on 02-05-2024 Specific gravity (U) [Rel density] 1.020 1.001-1.030 [facility] Troponin I.cardiac [Mass/vol ume] in Serum or Plasma by Detection limit <= 0.01 ng/Ordered By: Wesley Palacios on 02-05-2024 Troponin I.cardiac DL <= 0.01 ng/mL [Mass/Vol] 2.7 pg/mL 0.0-15.0 [facility] Urea nitrogen [Mass/volume] in Serum or PlasmaOrdered By: Wesley Palacios on 02-05-2024 Urea nitrogen [Mass/Vol] 16 mg/dL 7-25 [facility] Urine appearanceOrdered By: Wesley Palacios on 02-05-2024 Appearance (U) Clear Clear [facility] Urobilinogen Test strip (U) [Mass/Vol]Ordered By: Wesley Palacios on 02-05-2024 Urobilinogen (U) [Mass/Vol] Normal mg/dL Normal [facility] WBC Auto (Bld) [#/Vol]Ordere d By: Wesley Palacios on 02-05-2024 WBC (Bld) [#/Vol] 5.8 10*3/uL 3.8-11.6 [facility] pH Test strip (U)Ordered By: Wesley Palacios on 02-05-2024 pH (U) 5.0 [pH] 5.0-9.0 [facility] Actin smooth muscle IgG Ab [ Units/volume] in SerumOrdered By: Ashanti Baldwin on 12-24-2023 Actin smooth muscle IgG Qn (S) 36 Units High 0-19 [facility] Comment on above: Negative 0 - 19 Weak positive 20 - 30 Moderate to strong positive >30 Actin Antibodies are found in 52-85% of patients with autoimmune hepatitis or chronic active hepatitis and in 22% of patients with primary biliary cirrhosis. Activated partial thrombopla stin time (aPTT) in platelet poor plasma by coagulation aOrdered By: Ashanti Baldwin on 12-24-2023 aPTT Coag (PPP) [Time] 30.3 s 25.1-36.5 [facility] Comment on above: A hematocrit value g reater than 55% may lead to inaccurate results in coagulation testing. Patients having hematocrit values >55% require a special collection tube for coagulation studies. Please contact the laboratory at [phone] for redraw instructions. Alanine aminotransferase [En zymatic activity/volume] in Serum or PlasmaOrdered By: Ashanti Baldwin on 12-24-2023 ALT [Catalytic activity/Vol] 16 U/L [facility] Albumin [Mass/volume] in Ser um or PlasmaOrdered By: Ashanti Baldwin on 12-24-2023 Albumin [Mass/Vol] 4.1 g/dL 2.9-4.4 [facility] Albumin [Mass/volume] in Ser um or Plasma by Bromocresol green (BCG) dye binding methoOrdered By: Ashanti Baldwin on 12-24-2023 Albumin BCG dye [Mass/Vol] 4.6 g/dL 3.5-5.7 [facility] Albumin/Protein.total in 24 hour Urine by ElectrophoresisOrdered By: Ashanti Baldwin on 12-24-2023 Albumin Elph (24H U) [Mass fraction] 35.5 % . [facility] Alkaline phosphatase [Enzyma tic activity/volume] in Serum or PlasmaOrdered By: Ashanti Baldwin on 12-24-2023 ALP [Catalytic activity/Vol] 97 U/L 34-104 [facility] Aspartate aminotransferase [ Enzymatic activity/volume] in Serum or PlasmaOrdered By: Ashanti Baldwin on 12-24-2023 AST [Catalytic activity/Vol] 18 U/L 13-39 [facility] Bacteria [Presence] in Urine by AutomatedOrdered By: Ashanti Baldwin on 12-24-2023 Bacteria Auto Ql (U) None seen [HPF] None Seen [facility] Basophils Auto (Bld) [#/Vol] Ordered By: Ashanti Baldwin on 12-24-2023 Basophils (Bld) [#/Vol] 0.1 10*3/uL 0.0-0.2 [facility] Basophils/100 WBC Auto (Bld) Ordered By: Ashanti Baldwin on 12-24-2023 Basophils/100 WBC (Bld) 1.5 % . [facility] Bilirubin Test strip Ql (U)O rdered By: Ashanti Baldwin on 12-24-2023 Bilirubin Ql (U) Negative Negative [facility] Bilirubin.total [Mass/volume ] in Serum or PlasmaOrdered By: Ashanti Baldwin on 12-24-2023 Bilirubin [Mass/Vol] 0.3 mg/dL 0.3-1.0 [facility] C reactive protein [Mass/vol ume] in Serum or PlasmaOrdered By: Ashanti Baldwin on 12-24-2023 CRP [Mass/Vol] < 0.5 mg/dL 0.0-0.[address] [facility] [address] biopsyOrdered By: Ashanti Baldwin on 12-24-2023 CT biopsy 3.3 U/L 3.3-10.3 [facility] Comment on above: Performed at: [place] [id number] Director: Vahe Middleton PhD, Phone: [phone] Calcium [Mass/volume] in Ser um or PlasmaOrdered By: Ashanti Baldwin on 12-24-2023 Calcium [Mass/Vol] 10.0 mg/dL 8.6-10.3 [facility] Carbon dioxide, total [Moles /volume] in Serum or PlasmaOrdered By: Ashanti Baldwin on 12-24-2023 CO2 [Moles/Vol] 24.3 mmol/L 21.0-31.0 [facility] Chloride [Moles/volume] in S uzair or PlasmaOrdered By: Ashanti Baldwin on 12-24-2023 Chloride [Moles/Vol] 105 mmol/L 98-107 [facility] Color Auto (U)Ordered By: Olga jacquelynkelsea Bladwin on 12-24-2023 Color (U) Yellow Yellow [facility] Creatine kinase [Enzymatic a ctivity/volume] in Serum or PlasmaOrdered By: Ashanti Baldwin on 12-24-2023 CK [Catalytic activity/Vol] 111 U/L 30-223 [facility] Creatinine [Mass/volume] in Serum or PlasmaOrdered By: Ashanti Baldwin on 12-24-2023 Creatinine [Mass/Vol] 1.08 mg/dL 0.60-1.20 [facility] Eosinophils Auto (Bld) [#/Vo l]Ordered By: Ashanti Baldwin on 12-24-2023 Eosinophils (Bld) [#/Vol] 0.2 10*3/uL 0.0-0.45 [facility] Eosinophils/100 WBC Auto (Bl d)Ordered By: Ashanti Baldwin on 12-24-2023 Eosinophils/100 WBC (Bld) 3.3 % . [facility] Erythrocyte distribution wid th Auto (RBC) [Ratio]Ordered By: Ashanti Baldwin on 12-24-2023 Erythrocyte distribution width (RBC) [Ratio] 13.4 % 11.9-15.3 [facility] Erythrocyte sedimentation ra te by Photometric methodOrdered By: Ashanti Baldwin on 12-24-2023 ESR Photometric method (Bld) [Velocity] 35 mm/hr High 0-29 [facility] Erythrocytes [#/area] in Uri ne sediment by Automated countOrdered By: Ashanti Baldwin on 12-24-2023 RBC Auto (Urine sed) [#/Area] 3-4 [HPF] 0-4 [facility] Gamma globulin/Protein.total in 24 hour Urine by ElectrophoresisOrdered By: Ashanti Baldwin on 12-24-2023 Gamma globulin Elph (24H U) [Mass fraction] 31.1 % . [facility] Globulin Calc (S) [Mass/Vol] Ordered By: Ashanti Baldwin on 12-24-2023 Globulin (S) [Mass/Vol] 3.9 g/dL [facility] Glucose [Mass/volume] in Ser um or PlasmaOrdered By: Ashanti Baldwin on 12-24-2023 Glucose [Mass/Vol] 106 mg/dL High 70-100 [facility] Comment on above: ADA recommended refe rence rangeRandom Glucose Reference Range is dependent on time and content of last meal. Glucose of more than 200 mg/dL in a nonstressed, ambulatory subject supports the diagnosis of Diabetes Mellitus. Hematocrit Auto (Bld) [Volum e fraction]Ordered By: Ashanti Baldwin on 12-24-2023 Hematocrit (Bld) [Volume fraction] 41.1 % 34.0-46.4 [facility] Hemoglobin [Mass/volume] in BloodOrdered By: Ashanti Baldwin on 12-24-2023 Hemoglobin (Bld) [Mass/Vol] 14.2 g/dL 11.8-15.4 [facility] INR in Platelet poor plasma by Coagulation assayOrdered By: Ashanti Baldwin on 12-24-2023 INR Coag (PPP) [Relative time] 1.0 {INR} [facility] Comment on above: INR Therapeutic Rang e A) Pre- and Peroperative OAT started two weeks before surgery. NOT HIP SURGERY: 1.5 - 2.5 HIP SURGERY: 2 - 3B) Primary and secondary prevention of venous THROMBOSIS: 2 - 3C) Active venous thrombosis, pulmonary embolismand prevention of recurrent venous thrombosis: 2 - 3D) Prevention of arterial thromboembolismincluding patients with mechanical heart valves: 3 - 4.5 IgA [Mass/volume] in Serum o r PlasmaOrdered By: Ashanti Baldwin on 12-24-2023 IgA [Mass/Vol] 636 mg/dL High 87-352 [facility] IgG [Mass/volume] in Serum o r PlasmaOrdered By: Ashanti Baldwin on 12-24-2023 IgG [Mass/Vol] 1676 mg/dL High 586-1602 [facility] IgM [Mass/volume] in Serum o r PlasmaOrdered By: Ashanti Baldwin on 12-24-2023 IgM [Mass/Vol] 56 mg/dL 26-217 [facility] Immunofixation for UrineOrde red By: Ashanti Baldwin on 12-24-2023 Interpretation Immunofixation (U) [Interp] See comment . [facility] Comment on above: No monoclonality det ected.Performed at: - [facility] [id number] Director: Vahe Middleton PhD, Phone: [phone] Ketones Auto test strip (U) [Mass/Vol]Ordered By: Ashanti Baldwin on 12-24-2023 Ketones (U) [Mass/Vol] Negative Negative [facility] - UrinalysisOrder ed By: Ashanti Baldwin on 12-24-2023 Hyaline casts LM Ql (Urine sed) 0-8 [LPF] 0-8 [facility] Leukocytes [#/area] in Urine sediment by Automated countOrdered By: Ashanti Baldwin on 12-24-2023 WBC Auto (Urine sed) [#/Area] 1-2 [HPF] 0-4 [facility] Leukocytes [#/volume] correc lucas for nucleated erythrocytes in Blood by Automated counOrdered By: Ashanti Baldwin on 12-24-2023 WBC corrected for nucl RBC Auto (Bld) [#/Vol] 5.0 10*3/uL 3.8-11.6 [facility] Lupus anticoagulant [Interpr etation] in Platelet poor plasmaOrdered By: Ashanti Baldwin on 12-24-2023 Lupus anticoagulant (PPP) [Interp] Comment: . [facility] Comment on above: No lupus anticoagula nt was detected.Performed at: - [facility] [id number] Director: Fabiola Zheng MD, Phone: [phone] Lymphocytes Auto (Bld) [#/Vo l]Ordered By: Ashanti Baldwin on 12-24-2023 Lymphocytes (Bld) [#/Vol] 1.9 10*3/uL 1.00-4.8 [facility] Lymphocytes/100 WBC Auto (Bl d)Ordered By: Ashanti Baldwin on 12-24-2023 Lymphocytes/100 WBC (Bld) 37.2 % . [facility] MCH Auto (RBC) [Entitic mass ]Ordered By: Ashanti Baldwin on 12-24-2023 MCH (RBC) [Entitic mass] 30.6 pg 24.7-34.3 [facility] MCHC Auto (RBC) [Mass/Vol]Or dered By: Ashanti Baldwin on 12-24-2023 MCHC (RBC) [Mass/Vol] 34.5 g/dL 32.0-35.0 [facility] MCV Auto (RBC) [Entitic vol] Ordered By: Ashanti Baldwin on 12-24-2023 MCV (RBC) [Entitic vol] 88.8 fL 80-100 [facility] Monocytes Auto (Bld) [#/Vol] Ordered By: Ashanti Baldwin on 12-24-2023 Monocytes (Bld) [#/Vol] 0.5 10*3/uL 0.0-0.8 [facility] Monocytes/100 WBC Auto (Bld) Ordered By: Ashanti Baldwin on 12-24-2023 Monocytes/100 WBC (Bld) 9.0 % . [facility] Neutrophils Auto (Bld) [#/Vo l]Ordered By: Ashanti Baldwin on 12-24-2023 Neutrophils (Bld) [#/Vol] 2.5 10*3/uL 1.8-7.7 [facility] Neutrophils/100 WBC Auto (Bl d)Ordered By: Ashanti Baldwin on 12-24-2023 Neutrophils/100 WBC (Bld) 49.0 % . [facility] Nitrite Test strip Ql (U)Ord ered By: Ashanti Baldwin on 12-24-2023 Nitrite Ql (U) Negative Negative [facility] No Panel InformationOrdered By: Ashanti Baldwin on 12-24-2023 Estimated GFR (CKD-EPI) > 60.0 mL/Min [facility] Creatinine Clearance (Chem N/A [facility] Protein Electrophoresis M-Akbar Not observed g/dL Not Observed [facility] Protein Electrophoresis Note See comment . [facility] Comment on above: Protein electrophore sis scan will follow via computer,mail, or blood bank technician delivery.Performed at: [facility] [id number] Director: Vahe Middleton PhD, Phone: [phone] Serum Immunofixation See comment . [facility] Comment on above: No monoclonality det ected. Total Complement (CH50) >60 U/mL >41 [facility] Comment on above: Age Male Female 1 - 30 days Not Estab. Not Estab. 31 days - 6 months >32 >20 7 months - 17 years >39 >39 >17 years >41 >41 NOTE: The adult ( >17 years ) reference interval range is used to flag abnormals on this report. If the patient is 17 years old or younger, use the table above to determine out of range values.Performed at: [employer] [facility] [id number] Director: Vahe Middleton PhD, Phone: [phone] Urine Random Prot Electrophor Note See comment . [facility] Comment on above: Protein electrophore sis scan will follow via computer,mail, or blood bank technician delivery. Nucleated erythrocytes [Pres ence] in Blood by Automated countOrdered By: Ashanti Baldwin on 12-24-2023 Nucleated RBC Auto Ql (Bld) 0.1 /100{WBC} 0-0.5 [facility] Parathyrin.intact [Mass/volu me] in Serum or PlasmaOrdered By: Ashanti Baldwin on 12-24-2023 Parathyrin.intact [Mass/Vol] 44.9 pg/mL 12- [facility] Platelet mean volume Auto (B ld) [Entitic vol]Ordered By: Ashanti Baldwin on 12-24-2023 Platelet mean volume (Bld) [Entitic vol] 8.3 fL 6.3-10.7 [facility] Platelet poor plasma ratio o f lupus anticoagulant-sensitive activated partial thromboOrdered By: Ashanti Baldwin on 12-24-2023 aPTT.lupus sensitive.excess phospholipid actual/normal Coag (PPP) [Relative time] 31.2 sec 0.0-47.6 [facility] Platelets Auto (Bld) [#/Vol] Ordered By: Ashanti Baldwin on 12-24-2023 Platelets (Bld) [#/Vol] 324 10*3/uL 150-450 [facility] Potassium [Moles/volume] in Serum or PlasmaOrdered By: Ashanti Baldwin on 12-24-2023 Potassium [Moles/Vol] 4.2 mmol/L 3.5-5.1 [facility] Protein Auto test strip (U) [Mass/Vol]Ordered By: Ashanti Baldwin on 12-24-2023 Protein (U) [Mass/Vol] Negative Negative [facility] Protein [Mass/volume] in Ser um or PlasmaOrdered By: Ashanti Baldwin on 12-24-2023 Protein [Mass/Vol] 8.5 g/dL 6.4-8.9 [facility] Protein [Mass/Vol] 8.3 g/dL 6.0-8.5 [facility] Protein [Mass/volume] in Uri neOrdered By: Ashanti Baldwin on 12-24-2023 Protein (U) [Mass/Vol] 9.7 mg/dL Not Estab. [facility] Protein.monoclonal/Protein.t otal in 24 hour Urine by ElectrophoresisOrdered By: Ashanti Baldwin on 12-24-2023 Protein.monoclonal Elph (24H U) [Mass fraction] Not observed % Not Observed [facility] Prothrombin time (PT)Ordered By: Ashanti Baldwin on 12-24-2023 PT Coag (PPP) [Time] 10.9 s 9.0-12.9 [facility] Comment on above: A hematocrit value g reater than 55% may lead to inaccurate results in coagulation testing. Patients having hematocrit values >55% require a special collection tube for coagulation studies. Please contact the laboratory at [phone] for redraw instructions. RBC Auto (Bld) [#/Vol]Ordere d By: Ashanti Baldwin on 12-24-2023 RBC (Bld) [#/Vol] 4.63 10*6/uL 3.60-5.00 [facility] Reagin Ab [Presence] in Seru m by RPROrdered By: Ashanti Baldwin on 12-24-2023 Reagin Ab RPR Ql (S) Non-Reactive Non Reactive [facility] Comment on above: Performed at: [facility] - [facility] [address] [id number] Director: Vahe Middleton PhD, Phone: [phone] Screening dilute Srinivasan's v iper venom time (DRVVT) with reflex to confirmatory testOrdered By: Ashanti Baldwin on 12-24-2023 dRVVT Coag (PPP) [Time] 36.0 s 0.0-47.0 [facility] Screening lupus anticoagulan t-sensitive activated partial thromboplastin time (aPTT)Ordered By: Ashanti Baldwin on 12-24-2023 aPTT.lupus sensitive Coag (PPP) [Time] 31.4 sec 0.0-43.5 [facility] Serum globulin measurement ( mass/volume)Ordered By: Ashanti Baldwin on 12-24-2023 Globulin (S) [Mass/Vol] 4.2 g/dL High 2.2-3.9 [facility] Serum homogeneous pattern an tinuclear antibody (DAWOOD) titerOrdered By: Ashanti Baldwin on 12-24-2023 Homogenous nuclear Ab pattern (S) [Titer] N/A [facility] Serum mitochondria M2 IgG an tibody assay (units/volume)Ordered By: Ashanti Baldwin on 12-24-2023 Mitochondria M2 IgG Qn (S) <20.0 Units 0.0-20.0 [facility] Comment on above: Negative 0.0 - 20.0 Equivocal 20.1 - 24.9 Positive >24.9Mitochondrial (M2) Antibodies are found in 90-96% ofpatients with primary biliary cirrhosis. Serum nuclear antibody titer Ordered By: Ashanti Baldwin on 12-24-2023 Nuclear Ab (S) [Titer] Negative . [facility] Comment on above: Negative <1:80 Stefan grimes 1:80 Positive >1:80ICAP nomenclature: [id number]-0For more information about Hep-2 cell patterns useANApatterns.org, the official website for theInternational Consensus on Antinuclear Antibody (DAWOOD)Patterns (ICAP).Performed at: [facility] - [facility] [address] [id number] Director: Vahe Middleton PhD, Phone: [phone] Serum or plasma albumin/glob ulin mass ratioOrdered By: Ashanti Baldwin on 12-24-2023 Albumin/Globulin [Mass ratio] 1.2 {ratio} [facility] Albumin/Globulin [Mass ratio] 1.0 {ratio} 0.7-1.7 [facility] Serum or plasma alpha 1 glob ulin measurement by electrophoresis (mass/volume)Ordered By: Ashanti Baldwin on 12-24-2023 Alpha 1 globulin Elph [Mass/Vol] 0.2 g/dL 0.0-0.4 [facility] Serum or plasma alpha 2 glob ulin measurement by electrophoresis (mass/volume)Ordered By: Ashanti Baldwin on 12-24-2023 Alpha 2 globulin Elph [Mass/Vol] 0.9 g/dL 0.4-1.0 [facility] Serum or plasma anion gap de terminationOrdered By: Ashanti Baldwin on 12-24-2023 Anion gap [Moles/Vol] 10.9 mmol/L 6.0-15.0 [facility] Serum or plasma beta globuli n measurement by electrophoresis (mass/volume)Ordered By: Ashanti Baldwin on 12-24-2023 Beta globulin Elph [Mass/Vol] 1.5 g/dL High 0.7-1.3 [facility] Serum or plasma chromatin an tibody assay (units/volume)Ordered By: Ashanti Baldwin on 12-24-2023 Chromatin Ab Qn <0.2 AI 0.0-0.9 [facility] Comment on above: Performed at: [employer] [id number] Director: Vahe Middleton PhD, Phone: [phone] Serum or plasma complement C 3 measurement (mass/volume)Ordered By: Ashanti Baldwin on 12-24-2023 Complement C3 [Mass/Vol] 165 mg/dL 82-167 [facility] Comment on above: Performed at: [employer] [id number] Director: Vahe Middleton PhD, Phone: [phone] Serum or plasma complement C 4 measurement (mass/volume)Ordered By: Ashanti Baldwin on 12-24-2023 Complement C4 [Mass/Vol] 30 mg/dL 12-38 [facility] Serum or plasma gamma globul in measurement by electrophoresis (mass/volume)Ordered By: Ashanti Baldwin on 12-24-2023 Gamma globulin Elph [Mass/Vol] 1.6 g/dL 0.4-1.8 [facility] Serum or plasma thyroglobuli n antibody assay (units/volume)Ordered By: Ashanti Baldwin on 12-24-2023 Thyroglobulin Ab Qn [IU]/mL 0.0-0.9 [facility] Comment on above: Thyroglobulin Antibo dy measured by DEMANDITMethodologyIt should be noted that the presence of thyroglobulinantibodies may not be pathogenic nor diagnostic, especiallyat very low levels. The assay mandrel press hand has found thatfour percent of individuals without evidence of thyroiddisease or autoimmunity will have positive TgAb levels upto 4 IU/mL.Performed at: [facility] [address] [id number] Director: Vahe Middleton PhD, Phone: [phone] Serum or plasma thyroperoxid ase antibody assay (units/volume)Ordered By: Ashanti Baldwin on 12-24-2023 TPO Ab Qn [IU]/mL 0-34 [facility] Comment on above: Performed at: [place] [address] [id number] Director: Vahe Middleton PhD, Phone: [phone] Sodium [Moles/volume] in Ser um or PlasmaOrdered By: Ashanti Baldwin on 12-24-2023 Sodium [Moles/Vol] 136 mmol/L 136-145 [facility] Specific gravity Auto test s trip (U) [Rel density]Ordered By: Ashanti Baldwin on 12-24-2023 Specific gravity (U) [Rel density] 1.013 1.001-1.030 [facility] Squamous epithelial cells de tection in urine sediment by light microscopyOrdered By: Ashanti Baldwin on 12-24-2023 Epithelial cells.squamous LM Ql (Urine sed) 0-1 [HPF] 0-2 [facility] TT plasOrdered By: Ashanti robles on 12-24-2023 Thrombin time Coag (PPP) [Time] 19.0 sec 0.0-23.0 [facility] Thyrotropin [Units/volume] i n Serum or PlasmaOrdered By: Ashanti Baldwin on 12-24-2023 TSH Qn 1.38 m[IU]/L 0.45-5.33 [facility] Thyroxine (T4) free [Mass/vo lume] in Serum or PlasmaOrdered By: Ashanti Baldwin on 12-24-2023 Free T4 [Mass/Vol] 0.68 ng/dL 0.61-1.12 [facility] Urea nitrogen [Mass/volume] in Serum or PlasmaOrdered By: Ashanti Baldwin on 12-24-2023 Urea nitrogen [Mass/Vol] 11 mg/dL 7-25 [facility] Urine alpha 1 globulin/total protein by electrophoresisOrdered By: Ashanti Baldwin on 12-24-2023 Alpha 1 globulin Elph (U) [Mass fraction] 3.4 % . [facility] Urine alpha 2 globulin/total protein ratio by electrophoresisOrdered By: Ashanti Baldwin on 12-24-2023 Alpha 2 globulin Elph (U) [Mass fraction] 8.7 % . [facility] Urine beta globulin measurem ent by electrophoresis (mass/volume)Ordered By: Ashanti Baldwin on 12-24-2023 Beta globulin Elph (U) [Mass/Vol] 21.2 % . [facility] Urine clarity by refractomet ry automatedOrdered By: Ashanti Baldwin on 12-24-2023 Clarity Refractometry automated (U) Clear Clear [facility] Urine glucose measurement by automated test strip (mass/volume)Ordered By: Ashanti Baldwin on 12-24-2023 Glucose Auto test strip (U) [Mass/Vol] Normal mg/dL Normal [facility] Urine hemoglobin detection b y automated test stripOrdered By: Ashanti Baldwin on 12-24-2023 Hemoglobin Auto test strip Ql (U) Negative Negative [facility] Urine leukocyte esterase det ection by automated test stripOrdered By: Ashanti Baldwin on 12-24-2023 Leukocyte esterase Auto test strip Ql (U) 1+ High Negative [facility] Urobilinogen Auto test strip (U) [Mass/Vol]Ordered By: Ashanti Baldwin on 12-24-2023 Urobilinogen (U) [Mass/Vol] Normal mg/dL Normal [facility] WBC Auto (Bld) [#/Vol]Ordere d By: Ashanti Baldwin on 12-24-2023 WBC (Bld) [#/Vol] 5.0 10*3/uL 3.8-11.6 [facility] aPTT.lupus sensitive/aPTT.jose maria pus sensitive W excess phospholipid (screen to confirm raOrdered By: Ashanti Baldwin on 12-24-2023 aPTT.lupus sensitive/aPTT.lupus sensitive W excess phospholipid Coag (PPP) [Ratio] 1.01 Ratio 0.00-1.34 [facility] pH Auto test strip (U)Ordere d By: Ashanti Baldwin on 12-24-2023 pH (U) 6.0 [pH] 5.0-9.0 [facility] Alanine aminotransferase [En zymatic activity/volume] in Serum or PlasmaOrdered By: Justin Rg on 12-05-2023 ALT [Catalytic activity/Vol] 15 U/L 7-52 [facility] Albumin [Mass/volume] in Ser um or Plasma by Bromocresol green (BCG) dye binding methoOrdered By: Justin Rg on 12-05-2023 Albumin BCG dye [Mass/Vol] 4.6 g/dL 3.5-5.7 [facility] Alkaline phosphatase [Enzyma tic activity/volume] in Serum or PlasmaOrdered By: Justin Rg on 12-05-2023 ALP [Catalytic activity/Vol] 101 U/L 34-104 [facility] Aspartate aminotransferase [ Enzymatic activity/volume] in Serum or PlasmaOrdered By: Justin Rg on 12-05-2023 AST [Catalytic activity/Vol] 16 U/L 13-39 [facility] Bilirubin.total [Mass/volume ] in Serum or PlasmaOrdered By: Justin Rg on 12-05-2023 Bilirubin [Mass/Vol] 0.3 mg/dL 0.3-1.0 [facility] C reactive protein [Mass/vol ume] in Serum or Plasma by High sensitivity methodOrdered By: Justin Rg on 12-05-2023 CRP High sensitivity method [Mass/Vol] 1.4 mg/L High 0.0-0.9 [facility] Comment on above: Cardiovascular Risk Classification (AHA/CDC)hsCRP < 1.0 mg/l low relative risk for CVDhsCRP 1.0-3.0 mg/l average relative risk for CVDhsCRP > 3.0 mg/l high relative risk for CVDhsCRP > 7.5 mg/l active inflammation*Two results two weeks apart and averaged provide a morestable estimate of hsCRP level.*hsCRP levels > 7.5 mg/l may suggest infection that canlimit the use of this marker for estimation of CVD risk. Calcium [Mass/volume] in Ser um or PlasmaOrdered By: Justin Rg on 12-05-2023 Calcium [Mass/Vol] 10.2 mg/dL 8.6-10.3 [facility] Carbon dioxide, total [Moles /volume] in Serum or PlasmaOrdered By: Justin Rg on 12-05-2023 CO2 [Moles/Vol] 24.7 mmol/L 21.0-31.0 [facility] Chloride [Moles/volume] in S uzair or PlasmaOrdered By: Justin Rg on 12-05-2023 Chloride [Moles/Vol] 105 mmol/L 98-107 [facility] Creatinine [Mass/volume] in Serum or PlasmaOrdered By: Justin Rg on 12-05-2023 Creatinine [Mass/Vol] 0.98 mg/dL 0.60-1.20 [facility] Globulin Calc (S) [Mass/Vol] Ordered By: Justin Rg on 12-05-2023 Globulin (S) [Mass/Vol] 3.3 g/dL [facility] Glucose [Mass/volume] in Ser um or PlasmaOrdered By: Justin Rg on 12-05-2023 Glucose [Mass/Vol] 95 mg/dL 70-100 [facility] Comment on above: ADA recommended refe rence rangeRandom Glucose Reference Range is dependent on time and content of last meal. Glucose of more than 200 mg/dL in a nonstressed, ambulatory subject supports the diagnosis of Diabetes Mellitus. No Panel InformationOrdered By: Justin Rg on 12-05-2023 Estimated GFR (CKD-EPI) > 60.0 mL/Min [facility] Creatinine Clearance (Chem N/A [facility] Potassium [Moles/volume] in Serum or PlasmaOrdered By: Justin Rg on 12-05-2023 Potassium [Moles/Vol] 4.0 mmol/L 3.5-5.1 [facility] Protein [Mass/volume] in Ser um or PlasmaOrdered By: Justin Rg on 12-05-2023 Protein [Mass/Vol] 7.9 g/dL 6.4-8.9 [facility] Serum or plasma albumin/glob ulin mass ratioOrdered By: Justin Rg on 12-05-2023 Albumin/Globulin [Mass ratio] 1.4 {ratio} [facility] Serum or plasma anion gap de terminationOrdered By: Justin Rg on 12-05-2023 Anion gap [Moles/Vol] 12.3 mmol/L 6.0-15.0 [facility] Sodium [Moles/volume] in Ser um or PlasmaOrdered By: Justin Rg on 12-05-2023 Sodium [Moles/Vol] 138 mmol/L 136-145 [facility] Urea nitrogen [Mass/volume] in Serum or PlasmaOrdered By: Justin Rg on 12-05-2023 Urea nitrogen [Mass/Vol] 15 mg/dL 03-04 [facility] Alanine aminotransferase [En zymatic activity/volume] in Serum or PlasmaOrdered By: Justin Rg on 11-21-2023 ALT [Catalytic activity/Vol] 19 U/L [facility] Albumin [Mass/volume] in Ser um or Plasma by Bromocresol green (BCG) dye binding methoOrdered By: Justin Rg on 11-21-2023 Albumin BCG dye [Mass/Vol] 4.9 g/dL 3.5-5.7 [facility] Alkaline phosphatase [Enzyma tic activity/volume] in Serum or PlasmaOrdered By: Justin Rg on 11-21-2023 ALP [Catalytic activity/Vol] 87 U/L 34-104 [facility] Aspartate aminotransferase [ Enzymatic activity/volume] in Serum or PlasmaOrdered By: Justin Rg on 11-21-2023 AST [Catalytic activity/Vol] 25 U/L 13-39 [facility] Bilirubin.total [Mass/volume ] in Serum or PlasmaOrdered By: Justin Rg on 11-21-2023 Bilirubin [Mass/Vol] 0.4 mg/dL 0.3-1.0 [facility] Calcium [Mass/volume] in Ser um or PlasmaOrdered By: Justin Rg on 11-21-2023 Calcium [Mass/Vol] 10.9 mg/dL High 8.6-10.3 [facility] Carbon dioxide, total [Moles /volume] in Serum or PlasmaOrdered By: Justin Rg on 11-21-2023 CO2 [Moles/Vol] 18.4 mmol/L Low 21.0-31.0 [facility] Chloride [Moles/volume] in S uzair or PlasmaOrdered By: Justin Rg on 11-21-2023 Chloride [Moles/Vol] 103 mmol/L 98-107 [facility] Creatinine [Mass/volume] in Serum or PlasmaOrdered By: Justin Rg on 11-21-2023 Creatinine [Mass/Vol] 1.16 mg/dL 0.60-1.20 [facility] Globulin Calc (S) [Mass/Vol] Ordered By: Justin Rg 11-21-2023 Globulin (S) [Mass/Vol] 4.4 g/dL [facility] Glucose [Mass/volume] in Ser um or PlasmaOrdered By: Justin Rg on 11-21-2023 Glucose [Mass/Vol] 90 mg/dL 70-100 [facility] Comment on above: ADA recommended refe rence rangeRandom Glucose Reference Range is dependent on time and content of last meal. Glucose of more than 200 mg/dL in a nonstressed, ambulatory subject supports the diagnosis of Diabetes Mellitus. No Panel InformationOrdered By: Justin Rg on 11-21-2023 Estimated GFR (CKD-EPI) 56.375 mL/Min [facility] Creatinine Clearance (Chem N/A [facility] Potassium [Moles/volume] in Serum or PlasmaOrdered By: Justinjunie Rg on 11-21-2023 Potassium [Moles/Vol] 4.6 mmol/L 3.5-5.1 [facility] Protein [Mass/volume] in Ser um or PlasmaOrdered By: Justin Ifrha on 11-21-2023 Protein [Mass/Vol] 9.3 g/dL High 6.4-8.9 [facility] Serum or plasma albumin/glob ulin mass ratioOrdered By: Justin Ifrah on 11-21-2023 Albumin/Globulin [Mass ratio] 1.1 {ratio} [facility] Serum or plasma anion gap de terminationOrdered By: Justinjunie Rg on 11-21-2023 Anion gap [Moles/Vol] 20.2 mmol/L High 6.0-15.0 [facility] Sodium [Moles/volume] in Ser um or PlasmaOrdered By: Justin Ifrah on 11-21-2023 Sodium [Moles/Vol] 137 mmol/L 136-145 [facility] Urea nitrogen [Mass/volume] in Serum or PlasmaOrdered By: Justin Ifrah on 11-21-2023 Urea nitrogen [Mass/Vol] 13 mg/dL 7-25 [facility] Albumin [Mass/volume] in Ser um or PlasmaOrdered By: Justin Ifrah on 10-30-2023 Albumin [Mass/Vol] 3.6 g/dL 2.9-4.4 [facility] Automated erythrocytes count in urine sediment (number/area)Ordered By: Justin Rg on 10-30-2023 RBC Auto (Urine sed) [#/Area] 1-2 [HPF] 0-4 [facility] Automated leukocytes count i n urine sediment (number/area)Ordered By: Justin Rg on 10-30-2023 WBC Auto (Urine sed) [#/Area] 5-9 [HPF] 0-4 [facility] Basophils Auto (Bld) [#/Vol] Ordered By: Justin Rg on 10-30-2023 Basophils (Bld) [#/Vol] 0.0 10*3/uL 0.0-0.2 [facility] Basophils/100 WBC Auto (Bld) Ordered By: Justin Rg on 10-30-2023 Basophils/100 WBC (Bld) 0.3 % . [facility] Bilirubin Test strip Ql (U)O rdered By: Justin Rg on 10-30-2023 Bilirubin Ql (U) Negative Negative [facility] Color Auto (U)Ordered By: Me guillermo Rg on 10-30-2023 Color (U) Yellow Yellow [facility] DNA double strand Ab [Units/ volume] in SerumOrdered By: Justin Rg on 10-30-2023 DNA double strand Ab Qn (S) 2 [IU]/mL 0-9 [facility] Comment on above: Negative <5 Equivoca l 5 - 9 Positive >9Performed at: [facility] [id number] Director: Vahe Middleton PhD, Phone: [phone] Eosinophils Auto (Bld) [#/Vo l]Ordered By: Justin Rg on 10-30-2023 Eosinophils (Bld) [#/Vol] 0.2 10*3/uL 0.0-0.45 [facility] Eosinophils/100 WBC Auto (Bl d)Ordered By: Justin Rg on 10-30-2023 Eosinophils/100 WBC (Bld) 2.9 % . [facility] Erythrocyte distribution wid th Auto (RBC) [Ratio]Ordered By: Justin Rg on 10-30-2023 Erythrocyte distribution width (RBC) [Ratio] 13.8 % 11.9-15.3 [facility] Hematocrit Auto (Bld) [Volum e fraction]Ordered By: Justin Rg on 10-30-2023 Hematocrit (Bld) [Volume fraction] 41.5 % 34.0-46.4 [facility] Hemoglobin [Mass/volume] in BloodOrdered By: Justin Rg on 10-30-2023 Hemoglobin (Bld) [Mass/Vol] 14.2 g/dL 11.8-15.4 [facility] Ketones Auto test strip (U) [Mass/Vol]Ordered By: Justin Ifrah on 03-21-2024 Ketones (U) [Mass/Vol] Negative Negative [facility] - UrinalysisOrder ed By: Justin Rg on 10-30-2023 Hyaline casts LM Ql (Urine sed) 0-8 [LPF] 0-8 [facility] Leukocytes [#/volume] correc lucas for nucleated erythrocytes in Blood by Automated counOrdered By: Justin Rg on 10-30-2023 WBC corrected for nucl RBC Auto (Bld) [#/Vol] 5.4 10*3/uL 3.8-11.6 [facility] Lymphocytes Auto (Bld) [#/Vo l]Ordered By: Justin Rg on 10-30-2023 Lymphocytes (Bld) [#/Vol] 2.1 10*3/uL 1.00-4.8 [facility] Lymphocytes/100 WBC Auto (Bl d)Ordered By: Justin Rg on 10-30-2023 Lymphocytes/100 WBC (Bld) 39.4 % . [facility] MCH Auto (RBC) [Entitic mass ]Ordered By: Justin Rg on 10-30-2023 MCH (RBC) [Entitic mass] 30.3 pg 24.7-34.3 [facility] MCHC Auto (RBC) [Mass/Vol]Or dered By: Justin Rg on 10-30-2023 MCHC (RBC) [Mass/Vol] 34.1 g/dL 32.0-35.0 [facility] MCV Auto (RBC) [Entitic vol] Ordered By: Justin Rg on 10-30-2023 MCV (RBC) [Entitic vol] 88.8 fL 80-100 [facility] Monocytes Auto (Bld) [#/Vol] Ordered By: Justin Rg on 10-30-2023 Monocytes (Bld) [#/Vol] 0.5 10*3/uL 0.0-0.8 [facility] Monocytes/100 WBC Auto (Bld) Ordered By: Justin Rg on 10-30-2023 Monocytes/100 WBC (Bld) 9.5 % . [facility] Neutrophils Auto (Bld) [#/Vo l]Ordered By: Justin Rg on 10-30-2023 Neutrophils (Bld) [#/Vol] 2.6 10*3/uL 1.8-7.7 [facility] Neutrophils/100 WBC Auto (Bl d)Ordered By: Justin Rg on 10-30-2023 Neutrophils/100 WBC (Bld) 47.9 % . [facility] Nitrite Test strip Ql (U)Ord ered By: Justin Simbecky on 10-30-2023 Nitrite Ql (U) Negative Negative [facility] No Panel InformationOrdered By: Justin Simbecky on 10-30-2023 Protein Electrophoresis M-Akbar Not observed g/dL Not Observed [facility] Protein Electrophoresis Note See comment . [facility] Comment on above: Protein electrophore sis scan will follow via computer,mail, or blood bank technician delivery.Performed at: [employer] [address] [id number] Director: Vahe Middleton PhD, Phone: [phone] Nucleated erythrocytes [Pres ence] in Blood by Automated countOrdered By: Justin Simbecky on 10-30-2023 Nucleated RBC Auto Ql (Bld) 0.1 /100{WBC} 0-0.5 [facility] Platelet mean volume Auto (B ld) [Entitic vol]Ordered By: Justin Simbecky on 10-30-2023 Platelet mean volume (Bld) [Entitic vol] 7.9 fL 6.3-10.7 [facility] Platelets Auto (Bld) [#/Vol] Ordered By: Justin Simbecky on 10-30-2023 Platelets (Bld) [#/Vol] 349 10*3/uL 150-450 [facility] Protein Auto test strip (U) [Mass/Vol]Ordered By: Justin Simbecky on 10-30-2023 Protein (U) [Mass/Vol] Negative Negative [facility] Protein [Mass/volume] in Ser um or PlasmaOrdered By: Justinjunie Rg on 10-30-2023 Protein [Mass/Vol] 8.0 g/dL 6.0-8.5 [facility] RBC Auto (Bld) [#/Vol]Ordere d By: Justin Rg on 10-30-2023 RBC (Bld) [#/Vol] 4.67 10*6/uL 3.60-5.00 [facility] Serum Abbott extractable nucl ear antigen (CATLAINA) antibody assay (units/volume)Ordered By: Justin Rg on 10-30-2023 Abbott extractable nuclear Ab Qn (S) <0.2 AI 0.0-0.9 [facility] Serum globulin measurement ( mass/volume)Ordered By: Justin Rg on 10-30-2023 Globulin (S) [Mass/Vol] 4.4 g/dL 2.2-3.9 [facility] Serum or plasma albumin/glob ulin mass ratioOrdered By: Justin Rg on 10-30-2023 Albumin/Globulin [Mass ratio] 0.8 {ratio} 0.7-1.7 [facility] Serum or plasma alpha 1 glob ulin measurement by electrophoresis (mass/volume)Ordered By: Justin Rg on 10-30-2023 Alpha 1 globulin Elph [Mass/Vol] 0.2 g/dL 0.0-0.4 [facility] Serum or plasma alpha 2 glob ulin measurement by electrophoresis (mass/volume)Ordered By: Justin Rg on 10-30-2023 Alpha 2 globulin Elph [Mass/Vol] 1.0 g/dL 0.4-1.0 [facility] Serum or plasma beta globuli n measurement by electrophoresis (mass/volume)Ordered By: Justin Rg on 10-30-2023 Beta globulin Elph [Mass/Vol] 1.5 g/dL 0.7-1.3 [facility] Serum or plasma gamma globul in measurement by electrophoresis (mass/volume)Ordered By: Justin Rg on 10-30-2023 Gamma globulin Elph [Mass/Vol] 1.7 g/dL 0.4-1.8 [facility] Specific gravity Auto test s trip (U) [Rel density]Ordered By: Justin Rg on 10-30-2023 Specific gravity (U) [Rel density] 1.015 1.001-1.030 [facility] Squamous epithelial cells de tection in urine sediment by light microscopyOrdered By: Justin Rg on 10-30-2023 Epithelial cells.squamous LM Ql (Urine sed) 10-19 [HPF] 0-2 [facility] Urine bacteria detection by automated methodOrdered By: Justin Rg on 10-30-2023 Bacteria Auto Ql (U) None seen None Seen [facility] Urine clarity by refractomet ry automatedOrdered By: Justin Rg on 10-30-2023 Clarity Refractometry automated (U) Cloudy Clear [facility] Urine culture routineOrdered By: Justin Ifrah on 10-30-2023 Bacteria identified Cx Nom (U) [facility] Urine glucose measurement by automated test strip (mass/volume)Ordered By: Justin Ifrah on 10-30-2023 Glucose Auto test strip (U) [Mass/Vol] Normal mg/dL Normal [facility] Urine hemoglobin detection b y automated test stripOrdered By: Justin Simbecky on 10-30-2023 Hemoglobin Auto test strip Ql (U) Negative Negative [facility] Urine leukocyte esterase det ection by automated test stripOrdered By: Justin Simbecky on 10-30-2023 Leukocyte esterase Auto test strip Ql (U) 2+ Negative [facility] Urobilinogen Auto test strip (U) [Mass/Vol]Ordered By: Justin Simbecky on 10-30-2023 Urobilinogen (U) [Mass/Vol] Normal mg/dL Normal [facility] WBC Auto (Bld) [#/Vol]Ordere d By: Justin Rg on 10-30-2023 WBC (Bld) [#/Vol] 5.4 10*3/uL 3.8-11.6 [facility] pH Auto test strip (U)Ordere d By: Justin Ifrah on 10-30-2023 pH (U) 5.5 [pH] 5.0-9.0 [facility] C reactive protein [Mass/vol ume] in Serum or Plasma by High sensitivity methodOrdered By: Justin Ifrah on 10-22-2023 CRP High sensitivity method [Mass/Vol] 2.7 mg/L 0.0-0.9 [facility] Comment on above: Cardiovascular Risk Classification (AHA/CDC)hsCRP < 1.0 mg/l low relative risk for CVDhsCRP 1.0-3.0 mg/l average relative risk for CVDhsCRP > 3.0 mg/l high relative risk for CVDhsCRP > 7.5 mg/l active inflammation*Two results two weeks apart and averaged provide a morestable estimate of hsCRP level.*hsCRP levels > 7.5 mg/l may suggest infection that canlimit the use of this marker for estimation of CVD risk. Erythrocyte sedimentation ra te by Photometric methodOrdered By: Justin Rg on 10-22-2023 ESR Photometric method (Bld) [Velocity] 29 mm/hr 0-29 [facility] No Panel InformationOrdered By: Justin Rg on 10-22-2023 Anti-Nuclear Antibody Comment 2 See comment . [facility] Comment on above: Pattern Potential Di sease Association Homogeneous Systemic Lupus Erythematosus, Drug Induced Systemic Lupus Erythematosus, Chronic Autoimmune hepatitis, Juvenile Idiopathic Arthritis Speckled Sjogren Syndrome, Systemic Lupus Erythematosus, Subacute Cutaneous Lupus, Lupus, Congenital Heart Block, Mixed Connective Tissue Disease, Scleroderma-diffuse, Scleroderma-Autoimmune Myositis Overlap Syndrome, Systemic Lupus Gxpwweldnwgcy-Oahmbknlsbg-Dilswkiczw Myositis Overlap Syndrome, Systemic Autoimmune Rheumatic Disease, Undifferentiated Connective Tissue Disease Nucleolar Systemic Sclerosis, Scleroderma-Autoimmune Myositis Overlap Syndrome, Sjogren Syndrome, Raynaud phenomenon, Pulmonary Arterial Hypertension, Systemic Autoimmune Rheumatic Disease, Cancer Centromere Scleroderma-CREST, Limited Cutaneous SSc, Raynaud's Phenomenon, Primary Biliary Cholangitis Nuclear Dot Primary Biliary Cholangitis Nuclear Primary Biliary Cholangitis, AutoimmuneMembrane Hepatitis/Liver disease, Systemic Autoimmune Rheumatic Disease, Autoimmune Cytopenias, Linear Scleroderma, Antiphospholipid Syndrome Performed at: [employer] [place], [place] [id number] Director: Vahe Middleton PhD, Phone: [phone] Serum homogeneous pattern an tinuclear antibody (DAWOOD) titerOrdered By: Justin Rg on 10-22-2023 Homogenous nuclear Ab pattern (S) [Titer] 1:640 . [facility] Comment on above: ICAP nomenclature: A C-1 Serum nuclear antibody titer Ordered By: Justin Rg on 10-22-2023 Nuclear Ab (S) [Titer] Positive . [facility] Comment on above: Negative <1:80 Borde rline 1:80 Positive >1:80 Serum or plasma cyclic adeno sine monophosphate measurement (moles/volume)Ordered By: Justin Rg on 10-22-2023 Adenosine monophosphate.cyclic [Moles/Vol] 71 units 0-19 [facility] Comment on above: Negative <20 Weak po sitive 20 - 39 Moderate positive 40 - 59 Strong positive >59Performed at: [facility] [place], [place] [id number] Director: Vahe Middleton PhD, Phone: [phone] Serum or plasma rheumatoid f actor measurement (units/volume)Ordered By: Justin Rg on 10-22-2023 Rheumatoid factor Qn [IU]/mL <14.0 [facility] Comment on above: Performed at: - [address] [id number] Director: Vahe Middleton PhD, Phone: [phone] Cholesterol [Mass/volume] in Serum or PlasmaOrdered By: Duc Shrestha on 10-15-2023 Cholesterol [Mass/Vol] 217 mg/dL 140-200 [facility] Comment on above: Chol less than 200 m g/dl low riskChol 201-239 mg/dl borderline riskChol 240 mg/dl and greater high risk Cholesterol in LDL Calc [Mas s/Vol]Ordered By: Duc Shrestha on 10-15-2023 Cholesterol in LDL [Mass/Vol] TNP [facility] Comment on above: Test not performed Cholesterol in LDL [Mass/vol ume] in Serum or PlasmaOrdered By: Duc Shrestha on 10-15-2023 Cholesterol in LDL [Mass/Vol] 105 mg/dL 0-100 [facility] Comment on above: LDL ATP III CLASSIFI CATIONLDL less than 100 mg/dL OptimalLDL 100-129 mg/dL Near or above optimalLDL 130-159 mg/dL Borderline highLDL 160-189 mg/dL HighLDL greater than 189 mg/dL Very high Cholesterol in VLDL Calc [Ma ss/Vol]Ordered By: Duc Shrestha on 10-15-2023 Cholesterol in VLDL [Mass/Vol] 97 mg/dL [facility] Glucose mean value [Mass/vol ume] in Blood Estimated from glycated hemoglobinOrdered By: Eduin Perez on 10-15-2023 Average glucose Estimated from glycated hemoglobin (Bld) [Mass/Vol] 111 mg/dL [facility] Hemoglobin A1c percentageOrd ered By: Eduin Perez on 10-15-2023 HbA1c (Bld) [Mass fraction] 5.5 % 4.3-5.6 [facility] Comment on above: Increased risk for d iabetes: 5.7 - 6.4diabetes: >6.4glycemic control for adults with diabetes: <7.0 Serum or plasma high density lipoprotein (HDL) cholesterol measurementOrdered By: Duc Shrestha on 10-15-2023 Cholesterol in HDL [Mass/Vol] 45 mg/dL [facility] Comment on above: HDL CHOL ATP-III CLA SSIFICATION Cardiovascular RiskHDL > or equal to 60 mg/dL LOWHDL < 40 mg/dL HIGH Serum or plasma total choles terol/high density lipoprotein (HDL) cholesterol mass ratOrdered By: Duc Shrestha on 10-15-2023 Cholesterol.total/Vilma sterol in HDL [Mass ratio] 4.8 {ratio} <5.0 [facility] Triglyceride [Mass/volume] i n Serum or PlasmaOrdered By: Duc Shrestha on 10-15-2023 Triglyceride [Mass/Vol] 489 mg/dL 0-149 [facility] Comment on above: If the triglyceride result is greater than 400, LDLC and related calculations cannot be calculated and resulted.TRIG ATP III CLASSIFICATIONTRIG less than 150 mg/dL NormalTRIG 150-199 mg/dL Borderline highTRIG 200-500 mg/dL High TRIG greater than 500 mg/dL Very highStandard traceable to the Center for Disease Conrtrol and Prevention (CDC) test method. Magnesium [Mass/volume] in S uzair or PlasmaOrdered By: Luz Walker on 06-02-2023 Magnesium [Mass/Vol] 1.9 mg/dL 1.9-2.7 [facility] Parathyrin.intact [Mass/volu me] in Serum or PlasmaOrdered By: Luz Walker on 06-02-2023 Parathyrin.intact [Mass/Vol] 51.0 pg/mL [facility] Phosphate [Mass/volume] in S uzair or PlasmaOrdered By: Luz Walker on 06-02-2023 Phosphate [Mass/Vol] 3.4 mg/dL 3.7-7.2 [facility] Theophylline [Mass/volume] i n Serum or PlasmaOrdered By: Luz Lloyde on 06-02-2023 Theophylline [Mass/Vol] 16.4 ug/mL 10.0-20.0 [facility] Comment on above: Last dose: 06/02/23115 Thyrotropin [Units/volume] i n Serum or PlasmaOrdered By: Luz Walker on 06-02-2023 TSH Qn 4.27 m[IU]/L 0.45-5.33 [facility] Troponin I.cardiac [Mass/vol ume] in Serum or Plasma by Detection limit <= 0.01 ng/Ordered By: Luz Walker on 06-02-2023 Troponin I.cardiac DL <= 0.01 ng/mL [Mass/Vol] 4.4 pg/mL 0.0-15.0 [facility] Activated partial thrombopla stin time (aPTT) in platelet poor plasma by coagulation aOrdered By: Paras Herndon on 06-01-2023 aPTT Coag (PPP) [Time] 27.6 s 25.1-36.5 [facility] Comment on above: A hematocrit value g reater than 55% may lead to inaccurate results in coagulation testing. Patients having hematocrit values >55% require a special collection tube for coagulation studies. Please contact the laboratory at [phone] for redraw instructions. Basophils Auto (Bld) [#/Vol] Ordered By: Paras Herndon on 06-01-2023 Basophils (Bld) [#/Vol] 0.1 10*3/uL 0.0-0.2 [facility] Basophils/100 WBC Auto (Bld) Ordered By: Paras Herndon on 06-01-2023 Basophils/100 WBC (Bld) 1.1 % . [facility] Calcium [Mass/volume] in Ser um or PlasmaOrdered By: Paras Herndon on 06-01-2023 Calcium [Mass/Vol] 10.5 mg/dL 8.6-10.3 [facility] Carbon dioxide, total [Moles /volume] in Serum or PlasmaOrdered By: Paras Herndon on 06-01-2023 CO2 [Moles/Vol] 17.7 mmol/L 21.0-31.0 [facility] Chloride [Moles/volume] in S uzair or PlasmaOrdered By: Paras Herndon on 06-01-2023 Chloride [Moles/Vol] 100 mmol/L 98-107 [facility] Creatine kinase [Enzymatic a ctivity/volume] in Serum or PlasmaOrdered By: Paras Herndon on 06-01-2023 CK [Catalytic activity/Vol] 102 U/L 30-223 [facility] Creatinine [Mass/volume] in Serum or PlasmaOrdered By: Paras Herndon on 06-01-2023 Creatinine [Mass/Vol] 0.96 mg/dL 0.60-1.20 [facility] Eosinophils Auto (Bld) [#/Vo l]Ordered By: Paras Herndon on 06-01-2023 Eosinophils (Bld) [#/Vol] 0.1 10*3/uL 0.0-0.45 [facility] Eosinophils/100 WBC Auto (Bl d)Ordered By: Paras Herndon on 06-01-2023 Eosinophils/100 WBC (Bld) 0.9 % . [facility] Erythrocyte distribution wid th Auto (RBC) [Ratio]Ordered By: Paras Herndon on 06-01-2023 Erythrocyte distribution width (RBC) [Ratio] 14.2 % 11.9-15.3 [facility] Glucose Glucometer (BldC) [M ass/Vol]Ordered By: Paras Herndon on 06-01-2023 Glucose [Mass/Vol] 98 mg/dL [facility] Comment on above: Random Glucose Refer ence Range is dependent on time and content of last meal. Glucose of more than 200 mg/dL in a nonstressed, ambulatory subject supports the diagnosis of Diabetes Mellitus. Glucose [Mass/volume] in Ser um or PlasmaOrdered By: Paras Herndon on 06-01-2023 Glucose [Mass/Vol] 97 mg/dL 70-100 [facility] Comment on above: ADA recommended refe rence rangeRandom Glucose Reference Range is dependent on time and content of last meal. Glucose of more than 200 mg/dL in a nonstressed, ambulatory subject supports the diagnosis of Diabetes Mellitus. Hematocrit Auto (Bld) [Volum e fraction]Ordered By: Paras Herndon on 06-01-2023 Hematocrit (Bld) [Volume fraction] 46.4 % 34.0-46.4 [facility] Hemoglobin [Mass/volume] in BloodOrdered By: Paras Herndon on 06-01-2023 Hemoglobin (Bld) [Mass/Vol] 15.9 g/dL 11.8-15.4 [facility] INR in Platelet poor plasma by Coagulation assayOrdered By: Paras Herndon on 06-01-2023 INR Coag (PPP) [Relative time] 1.1 {INR} [facility] Comment on above: INR Therapeutic Rang e A) Pre- and Peroperative OAT started two weeks before surgery. NOT HIP SURGERY: 1.5 - 2.5 HIP SURGERY: 2 - 3B) Primary and secondary prevention of venous THROMBOSIS: 2 - 3C) Active venous thrombosis, pulmonary embolismand prevention of recurrent venous thrombosis: 2 - 3D) Prevention of arterial thromboembolismincluding patients with mechanical heart valves: 3 - 4.5 Leukocytes [#/volume] correc lucas for nucleated erythrocytes in Blood by Automated counOrdered By: Paras Herndon on 06-01-2023 WBC corrected for nucl RBC Auto (Bld) [#/Vol] 8.0 10*3/uL 3.8-11.6 [facility] Lipase [Enzymatic activity/v olume] in Serum or PlasmaOrdered By: Paras Herndon on 06-01-2023 Lipase [Catalytic activity/Vol] 18.0 U/L 11.0-82.0 [facility] Lymphocytes Auto (Bld) [#/Vo l]Ordered By: Paras Herndon on 06-01-2023 Lymphocytes (Bld) [#/Vol] 3.4 10*3/uL 1.00-4.8 [facility] Lymphocytes/100 WBC Auto (Bl d)Ordered By: Paras Herndon on 06-01-2023 Lymphocytes/100 WBC (Bld) 42.1 % . [facility] MCH Auto (RBC) [Entitic mass ]Ordered By: Paras Herndon on 06-01-2023 MCH (RBC) [Entitic mass] 30.4 pg 24.7-34.3 [facility] MCHC Auto (RBC) [Mass/Vol]Or dered By: Paras Herndon on 06-01-2023 MCHC (RBC) [Mass/Vol] 34.3 g/dL 32.0-35.0 [facility] MCV Auto (RBC) [Entitic vol] Ordered By: Paras Herndon on 06-01-2023 MCV (RBC) [Entitic vol] 88.7 fL 80-100 [facility] Monocyte distribution width [Entitic volume] in Blood by AutomatedOrdered By: Paras Herndon on 06-01-2023 Monocyte distribution width Auto (Bld) [Entitic vol] 18.27 % 0.00-20.00 [facility] Monocytes Auto (Bld) [#/Vol] Ordered By: Paras Herndon on 06-01-2023 Monocytes (Bld) [#/Vol] 0.6 10*3/uL 0.0-0.8 [facility] Monocytes/100 WBC Auto (Bld) Ordered By: Paras Herndon on 06-01-2023 Monocytes/100 WBC (Bld) 7.2 % . [facility] Natriuretic peptide B [Mass/ Vol]Ordered By: Paras Herndon on 06-01-2023 Natriuretic peptide B (Bld) [Mass/Vol] 17.0 pg/mL 5-100 [facility] Neutrophils Auto (Bld) [#/Vo l]Ordered By: Paras Herndon on 06-01-2023 Neutrophils (Bld) [#/Vol] 3.9 10*3/uL 1.8-7.7 [facility] Neutrophils/100 WBC Auto (Bl d)Ordered By: Paras Herndon on 06-01-2023 Neutrophils/100 WBC (Bld) 48.7 % . [facility] No Panel InformationOrdered By: Paras Herndon on 06-01-2023 Estimated GFR (CKD-EPI) > 60.0 mL/Min [facility] Creatinine Clearance (Chem 68.22 [facility] Nucleated erythrocytes [Pres ence] in Blood by Automated countOrdered By: Paras Herndon on 06-01-2023 Nucleated RBC Auto Ql (Bld) 0.1 /100{WBC} 0-0.5 [facility] Platelet mean volume Auto (B ld) [Entitic vol]Ordered By: Paras Herndon on 06-01-2023 Platelet mean volume (Bld) [Entitic vol] 8.8 fL 6.3-10.7 [facility] Platelets Auto (Bld) [#/Vol] Ordered By: Paras Herndon on 06-01-2023 Platelets (Bld) [#/Vol] 362 10*3/uL 150-450 [facility] Potassium [Moles/volume] in Serum or PlasmaOrdered By: Paras Herndon on 06-01-2023 Potassium [Moles/Vol] 3.2 mmol/L 3.5-5.1 [facility] Prothrombin time (PT)Ordered By: Paras Herndon on 06-01-2023 PT Coag (PPP) [Time] 13.1 s 9.0-12.9 [facility] Comment on above: A hematocrit value g reater than 55% may lead to inaccurate results in coagulation testing. Patients having hematocrit values >55% require a special collection tube for coagulation studies. Please contact the laboratory at [phone] for redraw instructions. RBC Auto (Bld) [#/Vol]Ordere d By: Paras Herndon on 06-01-2023 RBC (Bld) [#/Vol] 5.23 10*6/uL 3.60-5.00 [facility] Serum or plasma anion gap de terminationOrdered By: Paras Herndon on 06-01-2023 Anion gap [Moles/Vol] 19.5 mmol/L 6.0-15.0 [facility] Sodium [Moles/volume] in Ser um or PlasmaOrdered By: Paras Herndon on 06-01-2023 Sodium [Moles/Vol] 134 mmol/L 136-145 [facility] Urea nitrogen [Mass/volume] in Serum or PlasmaOrdered By: Paras Herndon on 06-01-2023 Urea nitrogen [Mass/Vol] 12 mg/dL 7-25 [facility] WBC Auto (Bld) [#/Vol]Ordere d By: Paras Herndon on 06-01-2023 WBC (Bld) [#/Vol] 8.0 10*3/uL 3.8-11.6 [facility] Progress Note-Physicianon Progress Note-Physician Patient: MEREDITH CHAIDEZ Age: 52 years Sex: Female : 1970 Associated Diagnoses: None Author: MD Pat, Akash Tabares Postoperative Information Postoperative disposition: Postoperative disposition: To PACU. Optimetrix number: Optimetrix number [id number]. Anesthetic utilized: General. Health Status Allergies: Allergic Reactions (Selected) Severity Not Documented Advair Diskus- Allergy, unspecified, not elsewhere classified. Anabolic steroids- Increase heart rate, hives, migraine. Arthrotec- Rash. Aspirin- Sob - shortness of breath. Ceftin- Unknown. Codeine- Vomiting. Depo-Provera- Hives. Elavil- Unknown. Erythromycin- Stomach pain. Flonase- No reactions were documented. Glutens- Diarrhea. Heparin- No reactions were documented. Heparin Lock Flush- Hives. Ibuprofen- Hives. Imitrex- Chest pain, hives. LACTOSE INTOLERANT- No reactions were documented. Latanoprost ophthalmic- Unknown. Latex- Hives. Lidoderm- Unknown. Lunesta- Hives. Lyrica- Hives. Maxalt- Unknown. MethylPREDNISolone- Hives. Morphine- Vomiting. NSAIDs- Asthma. Nubain- Allergy, unspecified, not elsewhere classified. PredniSONE- Hives. Relafen- Nausea. SEROquel- Pancreatitis. Soy/Soy Products- Diarrhea. SUMAtriptan- Chest tightness. Toradol- Vomiting. Vioxx- Abdominal pain. Warfarin- Hives. Wheat- Diarrhea. Zanaflex- No reactions were documented. Ziac- Hives. Physical Examination VS/Measurements Pain Assessment: Controlled. General: Awake, Alert, Appropriate. Respiratory: Adequate air exchange. Cardiovascular: Stable, Normal peripheral perfusion. Neurological: Normal sensory function, Normal motor function. Assessment Anesthetic outcome No anesthetic complications noted. Adequate pain relief. able to void without difficulty, able to ambulate with assist, tolerating PO intake, no N/V. Review / Management Condition: Stable. Plan Transfer/Discharge: Transfer/Discharge Discharge when meets criteria ( To home ). Normal [facility] Comment on above: Result Comment: Elec tronically Signed By: MD Pat, Akash Tabares\.br\Date and Time Signed: 03/30/23 21:56 EDT Progress Note-Physician Patient: MEREDITH CHAIDEZ Age: 52 years Sex: Female : 1970 Associated Diagnoses: None Author: MD Stewart Ahmad F Preoperative Information Time patient last ate or drank:=== (npo 8 hours) Anesthesia history: Patient history: No prior anesthesia problems. Re-evaluation prior to induction: Completed, Initial evaluation reviewed. Review of Systems Respiratory: No shortness of breath. Cardiovascular: No chest pain. Hematology/Lymphatics: No bruising tendency, No bleeding tendency. Health Status Allergies: Allergic Reactions (All) Severity Not Documented Advair Diskus- Allergy, unspecified, not elsewhere classified. Anabolic steroids- Increase heart rate, hives, migraine. Arthrotec- Rash. Aspirin- Sob - shortness of breath. Ceftin- Unknown. Codeine- Vomiting. Depo-Provera- Hives. Elavil- Unknown. Erythromycin- Stomach pain. Flonase- No reactions were documented. Glutens- Diarrhea. Heparin- No reactions were documented. Heparin Lock Flush- Hives. Ibuprofen- Hives. Imitrex- Chest pain, hives. LACTOSE INTOLERANT- No reactions were documented. Latanoprost ophthalmic- Unknown. Latex- Hives. Lidoderm- Unknown. Lunesta- Hives. Lyrica- Hives. Maxalt- Unknown. MethylPREDNISolone- Hives. Morphine- Vomiting. NSAIDs- Asthma. Nubain- Allergy, unspecified, not elsewhere classified. PredniSONE- Hives. Relafen- Nausea. SEROquel- Pancreatitis. Soy/Soy Products- Diarrhea. SUMAtriptan- Chest tightness. Toradol- Vomiting. Vioxx- Abdominal pain. Warfarin- Hives. Wheat- Diarrhea. Zanaflex- No reactions were documented. Ziac- Hives. Canceled/Inactive Reactions (All) Severity Not Documented Eggs- Allergy, unspecified, not elsewhere classified. Current medications: (Selected) Prescriptions Prescribed Diflucan 150 mg Tab: 150 mg = 1 tab(s), Oral, Once, # 1 tab(s), Refills(s) 0, Pharmacy: [facility] #[id number], 152.4, cm, 03/04/23 11:13:00 EDT, Height/Length Dosing, 95.5, kg, 03/04/23 11:13:00 EDT, Weight Dosing Nebulizer Machine: Nebulizer Machine, See Instructions, 1 EA, 0, Use as directed for aerosol treatments q 6rs prn Dx : J44.9, Supply Nebulizer Supplies: Nebulizer Supplies, See Instructions, 1 EA, 5, Mask, tubing, filters, cup, lid to use for aerosol treatments q 6hrs prn J44.9, Supply Percocet 5 mg-325 mg oral tablet: See Instructions, 30 tab(s), Refill(s) 0, Take one to two every 4hours as needed for pain., [facility]/pharmacy #[id number], 152.4, cm, 03/04/23 11:13:00 EDT, Height/Length Dosing, 95.5, kg, 03/04/23 11:13:00 EDT, Weight Dosing amLODIPine 5 mg Tab: See Instructions, TAKE 1 TABLET BY MOUTH EVERY DAY, # 90 tab(s), Refills(s) 0, Pharmacy: [facility] STORE [id number], 152.4, cm, 03/04/23 11:13:00 EDT, Height/Length Dosing, 95.5, kg, 03/04/23 11:13:00 EDT, Weight Dosing cyclobenzaprine 10 mg Tab: 10 mg = 1 tab(s), Oral, TID, PRN for spasm, # 270 tab(s), Refills(s) 0, Pharmacy: [facility], 152.4, cm, 03/04/23 11:13:00 EDT, Height/Length Dosing, 95.5, kg, 03/04/23 11:13:00 EDT, Weight Dosing diphenhydrAMINE 25 mg oral tablet: 25 mg = 1 tab(s), Oral, TID, PRN Other (see comment), take one tab with gabapentin PRN TID ([facility] Allergy Relief), # 90 tab(s), Refills(s) 0, [id number] 152.5, cm, 02/05/23 14:25:00 EDT, Height/Length Dosing, 95.7, kg, 02/05/23 14:25... gabapentin 300 mg Cap: 600 mg = 2 cap(s), Oral, TID, PRN Other (see comment), TAKE 2 CAPSULES BY MOUTH 3 TIMES A DAY NEEDED, # 180 cap(s), Refills(s) 2, [id number] 152.5, cm, 02/05/23 14:25:00 EDT, Height/Length Dosing, 95.7, kg, 02/05/23 14:25:00 EDT,... ondansetron 8 mg Dis Tab: 8 mg = 1 tab(s), Oral, q8hr, PRN Nausea/Vomiting, # 12 tab(s), Refills(s) 1, [id number] 152.5, cm, 11/22/22 10:43:00 EDT, Height/Length Dosing, 98.8, kg, 11/22/22 10:43:00 EDT, Weight Dosing promethazine 25 mg Tab: 25 mg = 1 tab(s), Oral, q6hr, PRN Nausea, # 120 tab(s), Refills(s) 1, [id number] 152.4, cm, 03/04/23 11:13:00 EDT, Height/Length Dosing, 95.5, kg, 03/04/23 11:13:00 EDT, Weight Dosing Documented Medications Documented Albuterol (Eqv-ProAir HFA): 2 puff(s), Inhalation, Shortness of breath or wheezing, Refill(s) 0 Estroven Menopause Supplement: 1 tab(s), Oral, Daily, Refill(s) 0, Prophylaxis Protonix 40 mg tablet: 40 mg, Oral, BID, Refills(s) 0, Control of stomach acid Singulair 10 mg Tab: 10 mg = 1 tab(s), Oral, Bedtime, Refills(s) 0, Asthma Uloric: 40 mg, Oral, Daily, PRN Gout pain, Refills(s) 0 cetirizine 10 mg oral capsule: 10 mg = 1 cap(s), Oral, Daily, PRN for allergy symptoms cloNIDine 0.1 mg tab: 0.1 mg = 1 tab(s), Oral, PRN Other (see comment), Refills(s) 0 guanfacine 2 mg oral tablet: 2 mg = 1 tab(s), Oral, Once a day (at bedtime), # 30 tab(s), Refills(s) 0, High blood pressure levothyroxine: 50 mcg, Oral, Daily, Refills(s) 0, Thyroid metoprolol 25 mg ER Tab: 25 mg = 1 tab(s), Oral, BID, Refills(s) (more content not included)... [facility] Comment on above: Result Comment: Elec tronically Signed By: MD Pat, Akash Tabares\.br\Date and Time Signed: 03/30/23 21:54 EDT IntraOperative Documentson 0 03-28-2023 IntraOperative Documents [id number]#[id number]:12 7 [facility] Discharge Instructionson Discharge Instructions [id number]#1.00CD:1 27 Normal [facility] Main OR Intraoperative Recor don 03-27-2023 Main OR Intraoperative Record IntraOp Document Type FT Summary Primary Physician: Carlo Andrews DO Finalized Date/Time: 03/27/23 09:13:09 Pt. Name: RAY CHAIDEZRA Spencer Contreras/Sex: 1970 Female Med Rec #: [id number] Physician: Carlo Andrews DO Financial #: [id number] Pt. Type: A Room/Bed: [place] [address] Admit/Disch: 03/24/23 09:15:49 - 03/24/23 15:05:00 Institution: Case Times FT Entry 1 Patient Times In Room 03/24/23 12:19:00 Out Room 03/24/23 13:07:00 Procedure Times Start 03/24/23 12:35:00 Stop 03/24/23 13:00:00 Anesthesia Times Start 03/24/23 12:19:00 Stop 03/24/23 13:07:00 Last Modified By: Manfred Lang Ii 03/24/23 13:12:02 General Comments: 03/27/23 Chart opened to review and send charges LRoth CSFA Case Attendance FT Entry 1 Entry 2 Entry 3 Case Attendee Neil CASTAÑEDA, Carlo Mann DO, CST, Liane E Role Performed MADDY Surgeon - Primary INSTALLATION SUPERVISOR/SA Time In 03/24/23 12:19:00 03/24/23 12:30:00 03/24/23 12:19:00 Time Out 03/24/23 13:07:00 03/24/23 12:55:00 03/24/23 13:07:00 Procedure FINGER TRIGGER FINGER TRIGGER FINGER TRIGGER RELEASE(Left), ULNAR RELEASE(Left), ULNAR RELEASE(Left), ULNAR NERVE NERVE NERVE TRANSPOSITION(Left) TRANSPOSITION(Left) TRANSPOSITION(Left) Comments Dr. Stewart anesthesia supervisor endless track vehicle Last Modified By: Kacy NELSON, Faina Woodruff CST, Faina Woodruff CST, Faina Muñoz 03/27/23 09:09:14 03/27/23 09:09:14 03/27/23 09:09:14 Entry 4 Entry 5 Entry 6 Case Attendee Brock NELSON, Michael Toth, Km Cordova Role Performed Scrub - Primary Scrub - Primary Bearing Inspector - Primary Time In 03/24/23 12:19:00 03/24/23 12:19:00 03/24/23 12:19:00 Time Out 03/24/23 13:07:00 03/24/23 13:07:00 03/24/23 13:07:00 Procedure FINGER TRIGGER FINGER TRIGGER FINGER TRIGGER RELEASE(Left), ULNAR RELEASE(Left), ULNAR RELEASE(Left), ULNAR NERVE NERVE NERVE TRANSPOSITION(Left) TRANSPOSITION(Left) TRANSPOSITION(Left) Comments preceptor Orientation Preceptor Last Modified By: Kacy NELSON, Faina Woodruff CST, Faina Woodruff CST, Faina Muñoz 03/27/23 09:09:14 03/27/23 09:09:14 03/27/23 09:09:14 Entry 7 Case Attendee Manfred Lang Ii Role Performed Bearing Inspector - Primary Time In 03/24/23 12:19:00 Time Out 03/24/23 13:07:00 Procedure FINGER TRIGGER RELEASE(Left), ULNAR NERVE TRANSPOSITION(Left) Comments Orientation Last Modified By: Faina Woodruff CST 03/27/23 09:09:14 Perioperative Protocols FT Pre-Care Text: Implements protective measures prior to operative or invasive procedure, confirms identity before the operative or invasive procedure, verifies operative procedure, surgical site, and laterality Entry 1 Procedure(s) FINGER TRIGGER Patient Identity Birthday, ID Band RELEASE(Left), ULNAR Verified (select at Check, Patient NERVE least 2): Participation TRANSPOSITION(Left) Consents / H and P Anesthesia Consent, Operative Site Present Verified HandP, Surgery/Procedure Marking Verified Consent Surgical Site Yes Laterality Verified Yes Verified Procedure Verified Yes Correct Patient Yes Position Verified Availability Equipment, Medication Prep Dry Yes Verified (If Applicable) PreOp Antibiotic No Time Out Jose Elias Trejo CRNA, Given Participants Carlo Andrews DO, Roth CST, Liane E, Dent CST, Navneet Ramirez Sydney A, Sweene, Terry T, Manfred Lang Ii Time Out Complete 03/24/23 12:31:00 Outcomes Met? Yes Last Modified By: Faina Woodruff CST 03/27/23 09:09:17 Post-Care Text: The patient is free from signs and symptoms of injury caused by extraneous objects Allergy Information FT Pre-Care Text: Verifies allergies Entry 1 Allergies Reviewed? Yes Allergies Reviewed Self/Patient With Outcomes Met? Yes Last Modified By: Manfred Lang Ii 03/24/23 12:08:49 Post-Care Text: The patient received appropriate medication(s) safely administered during the perioperative period Surgical Procedures FT Entry 1 Entry 2 Procedure Description Procedure FINGER TRIGGER RELEASE ULNAR NERVE TRANSPOSITION Modifiers Left Left Surgeon Description LEFT ANTERIOR ULNAR LEFT ANTERIOR ULNAR NERVE TRANSPOSTION, NERVE TRANSPOSTION, LEFT THUMB TRIGGER LEFT THUMB TRIGGER RELEASE RELEASE Primary Procedure No Yes Primary Surgeon Carlo Andrews DO, DO, Michael T Start 03/24/23 12:35:00 03/24/23 12:35:00 Stop 03/24/23 13:00:00 03/24/23 13:00:00 Anesthesia Type General General Surgical Service Orthopedics Orthopedics Wound Class 1 - Clean 1 - Clean Last Modified By: Manfred Lang Ii, CST, Liane E 03/24/23 13:12:13 03/27/23 09:09:06 General Case Data FT Pre-Care Text: Classifies surgical wound, implements aseptic technique, initiates traffic control Entry 1 Case Information OR OR 7 FT Case Level Level 2 Wound Class 1 - Clean Specialty Orthopedics ASA Class 3 Preop Diagnosis LEFT CUBITAL TUNNEL Postop Same As Preop Yes SYNDROME, LEFT TRIGGER THUMB Postop Diagnosis LE (more content not included)... Normal [facility] Operative Reporton Operative Report SURGERY DATE: 2022 PLANT CYTOLOGIST: Faina Woodruff, Certified Consulting Project Director PREOPERATIVE DIAGNOSIS: Left cubital tunnel syndrome with left trigger thumb POSTOPERATIVE DIAGNOSIS: Left cubital tunnel syndrome with left trigger thumb OPERATION: Left anterior ulnar nerve subfascial transposition with left trigger thumb release ANESTHESIA: General ESTIMATED BLOOD LOSS: Zero SPECIMEN: None IMPLANTS: None COMPLICATIONS: None TOURNIQUET TIME: See nurse's record HISTORY AND INDICATIONS: Tasha is a 52 year old female with several month history of locking to the left thumb with associated pain and swelling. She has had progressive cubital tunnel complaints, failure of conservative care with a positive electromyogram. The pros, cons, risks, benefits and reasonable expectations of the above procedure were discussed. Consent form signed and charted. Site is marked preoperatively of both locations. All questions are answered. Consent form signed and witnessed. PROCEDURE IN DETAIL: Tasha is taken to the Operating Room and placed in the supine position. Anesthesia is provided. Well padded tourniquet is placed on the left upper brachium. The arm is prepped and draped in usual sterile fashion. Timeout procedure occurred consistent with the consent form, history and physical and preoperative marked site. Landmarks are identified. Once timeout is confirmed trigger thumb was encountered first at the preoperative marked site on the volar A-1 serenity area. A 1/2 cm incision was made. Radial and ulnar nerve digital bundles were protected. The A-1 serenity had moderate to severe thickening. There was no cyst, mass or loose body. The A-1 serenity was released centrally and further released proximally and distally with blunt dissection scissors. Complete release was achieved. There was a moderate amount of tendinopathy of the flexor tendon. No sign of attritional rupture. Once confirmed completely released, it was copiously irrigated out and the skin was closed with one simple 4-0 Nylon horizontal mattress suture. The medial elbow was then opened with the elbow bent and the shoulder externally rotated. 2 incision was made over the cubital tunnel. Large adipose layer was noted. Flexor pronator fascia was identified. Cubital tunnel retinaculum was identified. Cubital tunnel retinaculum was identified over Davila's fascia. This was released, opened at the roof both proximally and distally with 5 cm distal dissection between the FCU as well as through the intermuscular septum proximally. Intermuscular septum was released off the bone with protection of the nerve with a vessel loop throughout. The nerve had moderate to severe entrapment with hourglass deformity along the cubital tunnel. Once the nerve was freed up neurolysis was performed. Flexor pronator sleeve was created of the fascia. The nerve was transposed anteriorly. The motor branches were maintained distally. Once transposed it was copiously irrigated out. The fascial sleeve was closed with 0 Vicryl suture. 3-0 Vicryl suture closed the subcutaneous tissues. 4-0 Nylon horizontal mattress sutures were applied. 15 cc of 1% plain lidocaine was injected between the two incisions. Bacitracin, Adaptic, well padded sterile soft dressing was applied. The patient's tourniquet was deflated. She was awakened from anesthesia and transferred to the Recovery Room in stable and satisfactory condition. CASE: Clean and elective SPONGE AND NEEDLE COUNT: Correct SPECIMEN: None PATIENT CONDITION: Satisfactory Franc Robbins Dictated: 03/24/2023 [id number] Transcribed: 03/24/2023 [facility] Comment on above: Result Comment: Elec tronically Signed By: Carlo Andrews DO T\.br\Date and Time Signed: 03/26/23 14:00 EDT Postoperative Documentson Postoperative Documents [id number]:12 7 [facility] Consent for Anesthesiaon Consent for Anesthesia [id number]#1.00CD:1 27 [facility] Discharge Instructionson Discharge Instructions [id number]#1.00CD:1 27 [facility] IntraOperative Documentson 0 03-25-2023 IntraOperative Documents [id number]#1.00CD:1 27 [facility] Preoperative Documentson Preoperative Documents [id number]#1.00CD:1 27 [facility] Consent for Procedure/Surger yon 03-24-2023 Consent for Procedure/Surgery [id number]#1.00CD:1 27 [facility] Consent for Treatmenton 03-11 Consent for Treatment [id number]#1.00CD:12 7 [facility] Discharge Instructionson Discharge Instructions MEREDITH CHAIDEZ :1970 Visit Date:03/24/2023 Inpatient Discharge Instructions Your Care Team Admitting Physician - Carlo Andrews DO Referring Physician - Carlo Andrews DO Reason for Your Visit LT CUBITAL TUNNEL SYNDROME, LT TRIGGER THUMB Your Diagnosis Cubital tunnel syndrome on left Trigger finger of left thumb This Is Your Medications List Misc Prescription (Nebulizer Machine) Misc Prescription (Nebulizer Supplies) acetaminophen-oxycodone (Percocet 5 mg-325 mg oral tablet) albuterol (Albuterol (Eqv-ProAir HFA)) amlodipine (amLODIPine 5 mg Tab) cetirizine (cetirizine 10 mg oral capsule) clonidine (cloNIDine 0.1 mg tab) cyclobenzaprine (cyclobenzaprine 10 mg Tab) diphenhydrAMINE (diphenhydrAMINE 25 mg oral tablet) febuxostat (Uloric) fluconazole (Diflucan 150 mg Tab) gabapentin (gabapentin 300 mg Cap) guanfacine (guanfacine 2 mg oral tablet) levothyroxine metoprolol (metoprolol 25 mg ER Tab) montelukast (Singulair 10 mg Tab) multivitamin with minerals (Estroven Menopause Supplement) ondansetron (ondansetron 8 mg Dis Tab) pantoprazole (Protonix 40 mg tablet) promethazine (promethazine 25 mg Tab) spironolactone (spironolactone 50 mg Tab) theophylline (theophylline 300 mg ER Tab) Procedure History Cystourethroscopy with dilation of urethral stricture (03/09/2020), cystoscopy, right retrograde pyelogram, right double J stent placement, extracorporeal shock wave lithotripsy large right renal stone (03/24/2014), anterior cervical disectomy and fusion, Carpal tunnel release, EXCISION LIPOMA, Fibroid, IOL - Cataract extraction and insertion of intraocular lens, Laparoscopic cholecystectomy, Tonsillectomy and adenoidectomy, Tubal ligation, Vaginal hysterectomy. What to do next Instructions From Your Doctor Event Name Event Result Discharge Activity Ambulate as tolerated, Arrange for a responsible adult supervision for 24 hours, Expect mild pain, Expect minimal amount of drainage and/or bleeding, Activity as tolerated, Do not lift more than 5 lbs Discharge Restrictions No driving for 24 hrs, Do not operate machinery or tools, Do not make important decisions for 24 hours, Do not drink alcoholic beverages for 24 hours Discharge Diet(s) Regular, Drink liquids and eat a light meal Call Your Doctor For Persistent or heavy bleeding, Temperature above 101.5 degrees, Redness, swelling, or pus at operative site, Severe pain at the operative site, Persistent vomiting Wound Care Remove dressing as instructed Remove Dressing On 5 Discharge Instructions Discharge Instructions Previously Scheduled Follow-Up Appointments Friday 1:00 PM EDT Where: [facility] Comment on above: Result Comment: Elec tronically Signed By: Shea AKHTAR, Arabella Felipe.gaurav\Date and Time Signed: 03/24/23 13:35 EDT H&P Updateon 03-24-2023 H&P Update [id number]:1 27 [facility] Main OR PACU I Recordon 03-11 Main OR PACU I Record PACU Phase I Docum ent Type FT Summary Primary Physician: Carlo Andrews DO Finalized Date/Time: 03/24/23 14:07:19 Pt. Name: MEREDITH CHAIDEZ/Sex: 1970 Female Med Rec #: [id number] Physician: Carlo Andrews DO Financial #: [id number] Pt. Type: A Room/Bed: [facility]/ Admit/Disch: 03/24/23 09:15:49 - Institution: Case Times PACU I FT Pre-Care Text: Identifies barriers to communication and implements measures to provide psychological support Develops individualized plan of care, and ensures continuity of care Maintains patient's dignity and privacy, and maintains patient confidentiality Identifies and reports philosophical, cultural, and spiritual beliefs and values Identifies individual values and wishes concerning care Implements aseptic technique, and administers prescribed antibiotic therapy and immunizing agents as ordered Evaluates postoperative tissue perfusion Implements thermoregulation measures, and monitors body temperature Evaluates postoperative respiratory status Evaluates postoperative cardiac status Evaluates postoperative neurological status Assesses pain control, collaborated in initiating patient-controlled analgesia and implements alternative methods of pain control Verifies allergies, administers prescribed medications and solutions, evaluates response to medications Entry 1 In PACU I 03/24/23 13:08:00 Discharge from PACU 03/24/23 13:38:00 I Outcomes Met? Yes Last Modified By: Karlee Santoyo I 03/24/23 14:07:04 Post-Care Text: The patient demonstrates knowledge of the expected response to the operative or invasive procedure The patient's care is consistent with the individualized perioperative plan of care The patient's right to privacy is maintained The patient's value system, lifestyle, ethnicity, and culture are considered, respected, and incorporated into the perioperative plan of care The patient participates in decisions affecting his or her perioperative plan of care The patient is free from signs and symptoms of infection The patient has wound/tissue perfusion consistent with or improved from baseline levels established preoperatively The patient is at or returning to normothermia at the conclusion of the immediate postoperative period The patient's respiratory function is consistent with or improved from baseline levels established preoperatively The patient's cardiovascular status is consistent with or improved from baseline levels established preoperatively The patient's cardiovascular status is consistent with or improved from baseline levels established preoperatively The patient demonstrates and/or reports adequate pain control throughout the perioperative period The patient received appropriate medication(s), safely administered during the perioperative period Acuity Level PACU I FT Entry 1 Start Time 03/24/23 13:08:00 Stop Time 03/24/23 13:38:00 Acuity Level Acuity Level I Last Modified By: Karlee Santoyo I 03/24/23 14:07:15 Finalized By: Karlee Santoyo I Document Signatures Signed By: Karlee Santoyo I 03/24/23 14:07 Normal [facility] Main OR PACU II Recordon Main OR PACU II Record PACU Phase II Doc ument Type FT Summary Primary Physician: Carlo Andrews DO Finalized Date/Time: 03/24/23 15:11:03 Pt. Name: MEREDITH CHAIDEZ/Sex: 1970 Female Med Rec #: [id number] Physician: Carlo Andrews DO Financial #: [id number] Pt. Type: A Room/Bed: [facility]/ Admit/Disch: 03/24/23 09:15:49 - Institution: Case Times PACU II FT Pre-Care Text: Identifies barriers to communication and implements measures to provide psychological support and determines knowledge level Develops individualized plan of care, and ensures continuity of care Maintains patient's dignity and privacy, and maintains patient confidentiality Identifies and reports philosophical, cultural, and spiritual beliefs and values Identifies individual values and wishes concerning care administers prescribed antibiotic therapy and immunizing agents as ordered, Evaluates postoperative tissue perfusion Implements thermoregulation measures, and monitors body temperature Evaluates postoperative respiratory status Evaluates postoperative cardiac status Evaluates postoperative neurological status Assesses pain control, collaborated in initiating patient-controlled analgesia and implements alternative methods of pain control Verifies allergies, administers prescribed medications and solutions, evaluates response to medications Entry 1 In PACU II 03/24/23 13:40:00 Discharge from PACU 03/24/23 15:05:00 II Outcomes Met? Yes Last Modified By: Arabella Valdivia RN 03/24/23 15:10:59 Post-Care Text: The patient demonstrates knowledge of the expected response to the operative or invasive procedure The patient's care is consistent with the individualized perioperative plan of care The patient's right to privacy is maintained The patient's value system, lifestyle, ethnicity, and culture are considered, respected, and incorporated into the perioperative plan of care The patient participates in decisions affecting his or her perioperative plan of care. The patient is free from signs and symptoms of infection The patient has wound/tissue perfusion consistent with or improved from baseline levels established preoperatively The patient is at or returning to normothermia at the conclusion of the immediate postoperative period The patient's respiratory function is consistent with or improved from baseline levels established preoperatively The patient's cardiovascular status is consistent with or improved from baseline levels established preoperatively The patient's neurological status is consistent with or improved from baseline levels established preoperatively The patient demonstrates and/or reports adequate pain control throughout the perioperative period The patient received appropriate medication(s), safely administered during the perioperative period Finalized By: Arabella Valdivia RN Document Signatures Signed By: Arabella Valdivia RN 03/24/23 15:11 Normal [facility] Main OR Preoperative Recordo n 03-24-2023 Main OR Preoperative Record PreOp Document Type FT Summary Primary Physician: Carlo Andrews DO Finalized Date/Time: 03/24/23 12:35:07 Pt. Name: MEREDITH CHAIDEZ Spencer Contreras/Sex: 1970 Female Med Rec #: [id number] Physician: Carlo Andrews DO Financial #: [id number] Pt. Type: A Room/Bed: [place] [address] Admit/Disch: 03/24/23 09:15:49 - Institution: Case Times PreOp FT Pre-Care Text: Verifies consent for planned procedure, identifies individual values and wishes concerning care, includes family members in perioperative teaching Entry 1 Patient Times. In Pre Surgery 03/24/23 09:20:00 Out Pre Surgery 03/24/23 12:17:00 Outcomes Met? Yes Last Modified By: Manfred Lang Ii 03/24/23 12:35:05 Post-Care Text: The patient participates in decisions affecting his or her perioperative plan of care Finalized By: Manfred Lang Ii Document Signatures Signed By: Manfred Lang Ii 03/24/23 12:35 Normal [facility] Monitor Recordon 03-24-2023 Monitor Record [id number]:1 27 Normal [facility] Monitor Record [id number]:1 27 Normal [facility] Patient Education - Texton 0 03-24-2023 Patient Education - Text Orthopedics Cubital Tunnel Syndrome Cubital tunnel syndrome is a condition that causes pain and weakness of the forearm and hand. It happens when one of the nerves that runs along the inside of the elbow joint (ulnar nerve) becomes irritated. This condition is usually caused by repeated arm motions that are done during sports or work-related activities. What are the causes? This condition may be caused by: ? Increased pressure on the ulnar nerve at the elbow, arm, or forearm. This can result from: ? Irritation caused by repeated elbow bending. ? Poorly healed elbow fractures. ? Tumors in the elbow. These are usually noncancerous (benign). ? Scar tissue that develops in the elbow after an injury. ? Bony growths (spurs) near the ulnar nerve. ? Stretching of the nerve due to loose elbow ligaments. ? Trauma to the nerve at the elbow. What increases the risk? The following factors may make you more likely to develop this condition: ? Doing manual labor that requires frequent bending of the elbow. ? Playing sports that include repeated or strenuous throwing motions, such as baseball. ? Playing contact sports, such as football or lacrosse. ? Not warming up properly before activities. ? Having diabetes. ? Having an underactive thyroid (hypothyroidism). What are the signs or symptoms? Symptoms of this condition include: ? Clumsiness or weakness of the hand. ? Tenderness of the inner elbow. ? Aching or soreness of the inner elbow, forearm, or fingers, especially the little finger or the ring finger. ? Increased pain when forcing the elbow to bend. ? Reduced control when throwing objects. ? Tingling, numbness, or a burning feeling inside the forearm or in part of the hand or fingers, especially the little finger or the ring finger. ? Sharp pains that shoot from the elbow down to the wrist and hand. ? The inability to real estate coordinator or pinch hard. How is this diagnosed? This condition is diagnosed based on: ? Your symptoms and medical history. Your health care provider will also ask for details about any injury. ? A physical exam. You may also have tests, including: ? Electromyogram (EMG). This test measures electrical signals sent by your nerves into the muscles. ? Nerve conduction study. This test measures how well electrical signals pass through your nerves. ? Imaging tests, such as X-rays, ultrasound, and MRI. These tests check for possible causes of your condition. How is this treated? This condition may be treated by: ? Stopping the activities that are causing your symptoms to get worse. ? Icing and taking medicines to reduce pain and swelling. ? Wearing a splint to prevent your elbow from bending, or wearing an elbow pad where the ulnar nerve is closest to the skin. ? Working with a physical therapist in less severe cases. This may help to: ? Decrease your symptoms. ? Improve the strength and range of motion of your elbow, forearm, and hand. If these treatments do not help, surgery may be needed. Follow these instructions at home: If you have a splint: ? Wear the splint as told by your health care provider. Remove it only as told by your health care provider. ? Loosen the splint if your fingers tingle, become numb, or turn cold and blue. ? Keep the splint clean. ? If the splint is not waterproof: ? Do not let it get wet. ? Cover it with a watertight covering when you take a bath or shower. Managing pain, stiffness, and swelling ? If directed, put ice on the injured area: ? Put ice in a plastic bag. ? Place a towel between your skin and the bag. ? Leave the ice on for 20 minutes, 2?3 times a day. ? Move your fingers often to avoid stiffness and to lessen swelling. ? Raise (elevate) the injured area above the level of your heart while you are sitting or lying down. General instructions ? Take [id number] and prescription medicines only as told by your health care provider. ? Do any exercise or physical therapy as told by your health care provider. ? Do not drive or use heavy machinery while taking prescription pain medicine. ? If you were given an elbow pad, wear it as told by your health care provider. ? Keep all follow-up visits as told by your health care provider. This is important. Contact a health care provider if: ? Your symptoms get worse. ? Your symptoms do not get better with treatment. ? You have new pain. ? Your hand on the injured side feels numb or cold. Summary ? Cubital tunnel syndrome is a condition that causes pain and weakness of the forearm and hand. ? You are more likely to develop this condition if you do work or play sports that involve repeated arm movements. ? This condition is often treated by stopping repetitive activities, applying ice, and using anti-inflammatory medicines. ? In rare case (more content not included)... Normal [facility] Alanine aminotransferase [En zymatic activity/volume] in Serum or PlasmaOrdered By: Duc Shrestha on 03-19-2023 ALT [Catalytic activity/Vol] 18 U/L 7-52 [facility] Albumin [Mass/volume] in Ser um or Plasma by Bromocresol green (BCG) dye binding methoOrdered By: Duc Shrestha on 03-19-2023 Albumin BCG dye [Mass/Vol] 4.4 g/dL 3.5-5.7 [facility] Alkaline phosphatase [Enzyma tic activity/volume] in Serum or PlasmaOrdered By: Duc Shrestha on 03-19-2023 ALP [Catalytic activity/Vol] 77 U/L 34-104 [facility] Aspartate aminotransferase [ Enzymatic activity/volume] in Serum or PlasmaOrdered By: Duc Shrestha on 03-19-2023 AST [Catalytic activity/Vol] 21 U/L 13-39 [facility] Basophils Auto (Bld) [#/Vol] Ordered By: Duc Shrestha on 03-19-2023 Basophils (Bld) [#/Vol] 0.1 10*3/uL 0.0-0.2 [facility] Basophils/100 WBC Auto (Bld) Ordered By: Duc Shrestha on 03-19-2023 Basophils/100 WBC (Bld) 1.2 % . [facility] Bilirubin.total [Mass/volume ] in Serum or PlasmaOrdered By: Duc Shrestha on 03-19-2023 Bilirubin [Mass/Vol] 0.3 mg/dL 0.3-1.0 [facility] Calcium [Mass/volume] in Ser um or PlasmaOrdered By: Duc Shrestha on 03-19-2023 Calcium [Mass/Vol] 9.9 mg/dL 8.6-10.3 [facility] Carbon dioxide, total [Moles /volume] in Serum or PlasmaOrdered By: Duc Shrestha on 03-19-2023 CO2 [Moles/Vol] 24.0 mmol/L 21.0-31.0 [facility] Chloride [Moles/volume] in S uzair or PlasmaOrdered By: Duc Shrestha on 03-19-2023 Chloride [Moles/Vol] 104 mmol/L 98-107 [facility] Cholesterol [Mass/volume] in Serum or PlasmaOrdered By: Duc Shrestha on 03-19-2023 Cholesterol [Mass/Vol] 192 mg/dL 140-200 [facility] Comment on above: Chol less than 200 m g/dl low riskChol 201-239 mg/dl borderline riskChol 240 mg/dl and greater high risk Cholesterol in LDL Calc [Mas s/Vol]Ordered By: Duc Shrestha on 03-19-2023 Cholesterol in LDL [Mass/Vol] TNP [facility] Comment on above: Test not performed Cholesterol in LDL [Mass/vol ume] in Serum or PlasmaOrdered By: Duc Shrestha on 03-19-2023 Cholesterol in LDL [Mass/Vol] 87 mg/dL 0-100 [facility] Comment on above: LDL ATP III CLASSIFI CATIONLDL less than 100 mg/dL OptimalLDL 100-129 mg/dL Near or above optimalLDL 130-159 mg/dL Borderline highLDL 160-189 mg/dL HighLDL greater than 189 mg/dL Very high Cholesterol in VLDL Calc [Ma ss/Vol]Ordered By: Duc Shrestha on 03-19-2023 Cholesterol in VLDL [Mass/Vol] 98 mg/dL [facility] Consultation Noteon 03-19-20 Consultation Note [id number]:12 7 Normal [facility] Creatinine [Mass/volume] in Serum or PlasmaOrdered By: Duc Shrestha on 03-19-2023 Creatinine [Mass/Vol] 0.92 mg/dL 0.60-1.20 [facility] Eosinophils Auto (Bld) [#/Vo l]Ordered By: Duc Shrestha on 03-19-2023 Eosinophils (Bld) [#/Vol] 0.4 10*3/uL 0.0-0.45 [facility] Eosinophils/100 WBC Auto (Bl d)Ordered By: Duc Shrestha on 03-19-2023 Eosinophils/100 WBC (Bld) 6.2 % . [facility] Erythrocyte distribution wid th Auto (RBC) [Ratio]Ordered By: Duc Shrestha on 03-19-2023 Erythrocyte distribution width (RBC) [Ratio] 13.6 % 11.9-15.3 [facility] Globulin Calc (S) [Mass/Vol] Ordered By: Duc Shrestha on 03-19-2023 Globulin (S) [Mass/Vol] 3.4 g/dL [facility] Glucose [Mass/volume] in Ser um or PlasmaOrdered By: Duc Shrestha on 03-19-2023 Glucose [Mass/Vol] 92 mg/dL 70-100 [facility] Comment on above: ADA recommended refe rence rangeRandom Glucose Reference Range is dependent on time and content of last meal. Glucose of more than 200 mg/dL in a nonstressed, ambulatory subject supports the diagnosis of Diabetes Mellitus. Hematocrit Auto (Bld) [Volum e fraction]Ordered By: Duc Shrestha on 03-19-2023 Hematocrit (Bld) [Volume fraction] 38.5 % 34.0-46.4 [facility] Hemoglobin [Mass/volume] in BloodOrdered By: Duc Shrestha on 03-19-2023 Hemoglobin (Bld) [Mass/Vol] 13.2 g/dL 11.8-15.4 [facility] Inpatient Patient Summaryon 03-19-2023 Inpatient Patient Summary [address] [address] [facility] Clinical Discharge Instructions PERSON INFORMATION Name: MEREDITH CHAIDEZ PHYSICIANS Admitting Physician: Carlo Andrews DO Attending Physician: Carlo Andrews DO PCP: Eligio Ford MD Discharge Diagnosis: Cubital tunnel syndrome on left; Trigger finger of left thumb Comment: PATIENT EDUCATION INFORMATION Instructions: Cubital Tunnel Syndrome; Trigger Finger Medication Leaflets: Follow up: With: Address: When: Carlo Andrews [address] [place] [id number] [employer] (1) Comments: Keep scheduled appointment Type Location Start [facility] State Surgery [facility] 03/24/2023 3:00 PM 03/24/2023 3:32 PM Conf[facility] 03[facility] 1:00 PM 03/26/2023 2:00 PM Confirmed MEDICATION LIST Medications to Continue Taking That Have Changed Other Medications START: amlodipine (amLODIPine 5 mg Tab) TAKE 1 TABLET BY MOUTH EVERY DAY. Refills: 0. START: cholecalciferol (Vitamin D3) 1 tab By Mouth every day. START: cyclobenzaprine (cyclobenzaprine 10 mg Tab) 1 Tablets By Mouth 3 times a day as needed for spasm. Refills: 0. START: metoprolol (metoprolol 25 mg ER Tab) 1 Tablets By Mouth 2 times a day. START: montelukast (Singulair 10 mg Tab) 1 Tablets By Mouth at bedtime. START: multivitamin with minerals (Estroven Menopause Supplement) 1 Tablets By Mouth every day. START: theophylline (theophylline 300 mg ER Tab) 1 Tablets By Mouth 2 times a day. START: tiotropium (Spiriva Respimat 1.25 mcg/inh inhalation aerosol) 2 Puffs Inhalation every day. Medications to Continue with No Changes Other Medications albuterol (Albuterol (Eqv-ProAir HFA)) 2 Puffs Inhalation as needed Shortness of breath or wheezing. cetirizine (cetirizine 10 mg oral capsule) 1 Capsules By Mouth every day as needed for allergy symptoms. clonidine (cloNIDine 0.1 mg tab) 1 Tablets By Mouth as needed Other (see comment)., prn is BP > 180/100 diphenhydrAMINE (diphenhydrAMINE 25 mg oral tablet) 1 Tablets By Mouth 3 times a day as needed Other (see comment). take one tab with gabapentin PRN TID ([employer] Allergy Relief). Refills: 0. febuxostat (Uloric) 40 Milligram By Mouth every day as needed Gout pain. fluconazole (Diflucan 150 mg Tab) 1 Tablets By Mouth Once. Refills: 0. gabapentin (gabapentin 300 mg Cap) 2 Capsules By Mouth 3 times a day as needed Other (see comment). TAKE 2 CAPSULES BY MOUTH 3 TIMES A DAY NEEDED. Refills: 2. guanfacine (guanfacine 2 mg oral tablet) 1 Tablets By Mouth once a day (at bedtime). hydroxychloroquine (hydroxychloroquine 200 mg Tab) 1 Tablets By Mouth every day., biologic for arthritis levothyroxine 50 Microgram By Mouth every day[facility] Use as directed for aerosol treatments q 6rs prn Dx : J44.9. Refills: 0. Misc Prescription (Nebulizer Supplies) Mask, tubing, filters, cup, lid to use for aerosol treatments q 6hrs prn J44.9. Refills: 5. mupirocin topical (mupirocin Top 2% Oint) ondansetron (ondansetron 8 mg Dis Tab) 1 Tablets By Mouth every 8 hours as needed Nausea/Vomiting. Refills: 1. pantoprazole (Protonix 40 mg tablet) 40 Milligram By Mouth 2 times a day. promethazine (promethazine 25 mg Tab) 1 Tablets By Mouth every 6 hours as needed Nausea. Refills: 1. spironolactone (spironolactone 50 mg Tab) 1 Tablets By Mouth as needed Edema. Comment: Normal [facility] Leukocytes [#/volume] correc lucas for nucleated erythrocytes in Blood by Automated counOrdered By: Duc Shrestha on 03-19-2023 WBC corrected for nucl RBC Auto (Bld) [#/Vol] 7.0 10*3/uL 3.8-11.6 [facility] Lymphocytes Auto (Bld) [#/Vo l]Ordered By: Duc Shrestha on 03-19-2023 Lymphocytes (Bld) [#/Vol] 2.4 10*3/uL 1.00-4.8 [facility] Lymphocytes/100 WBC Auto (Bl d)Ordered By: Duc Shrestha on 03-19-2023 Lymphocytes/100 WBC (Bld) 34.8 % . [facility] MCH Auto (RBC) [Entitic mass ]Ordered By: Duc Shrestha on 03-19-2023 MCH (RBC) [Entitic mass] 30.2 pg 24.7-34.3 [facility] MCHC Auto (RBC) [Mass/Vol]Or dered By: Duc Shrestha on 03-19-2023 MCHC (RBC) [Mass/Vol] 34.2 g/dL 32.0-35.0 [facility] MCV Auto (RBC) [Entitic vol] Ordered By: Duc Shrestha on 03-19-2023 MCV (RBC) [Entitic vol] 88.3 fL 80-100 [facility] Monocytes Auto (Bld) [#/Vol] Ordered By: Duc Shrestha on 03-19-2023 Monocytes (Bld) [#/Vol] 0.7 10*3/uL 0.0-0.8 [facility] Monocytes/100 WBC Auto (Bld) Ordered By: Duc Shrestha on 03-19-2023 Monocytes/100 WBC (Bld) 9.6 % . [facility] Neutrophils Auto (Bld) [#/Vo l]Ordered By: Duc Shrestha on 03-19-2023 Neutrophils (Bld) [#/Vol] 3.4 10*3/uL 1.8-7.7 [facility] Neutrophils/100 WBC Auto (Bl d)Ordered By: Duc Shrestha on 03-19-2023 Neutrophils/100 WBC (Bld) 48.2 % . [facility] No Panel InformationOrdered By: Duc hSrestha on 03-19-2023 Estimated GFR (CKD-EPI) > 60.0 mL/Min [facility] Creatinine Clearance (Chem N/A [facility] Nucleated erythrocytes [Pres ence] in Blood by Automated countOrdered By: Duc Shrestha on 03-19-2023 Nucleated RBC Auto Ql (Bld) 0.1 /100{WBC} 0-0.5 [facility] Outpatient Surgery Discharge Instructionon 03-19-2023 Outpatient Surgery Discharge Instruction [place] [id number] Patient Discharge Instructions PERSON INFORMATION Name: MEREDITH CHAIDEZ Date of : 1970 Current Date: 03/19/2023 16:17:34 PHYSICIANS Admitting Physician: Carlo Andrews DO Discharge Diagnosis: Cubital tunnel syndrome on left; Trigger finger of left thumb MEREDITH CHAIDEZ has been given the following list of follow-up instructions, prescriptions, and patient education materials: PATIENT FOLLOW-UP INFORMATION Diet: Regular, Drink liquids and eat a light meal Discharge Activity: Ambulate as tolerated, Arrange for a responsible adult supervision for 24 hours, Expect mild pain, Expect minimal amount of drainage and/or bleeding, Activity as tolerated, Do not lift more than 5 lbs Discharge Restrictions: No driving for 24 hrs, Do not operate machinery or tools, Do not make important decisions for 24 hours, Do not drink alcoholic beverages for 24 hours Call Your Doctor For: Persistent or heavy bleeding, Temperature above 101.5 degrees, Redness, swelling, or pus at operative site, Severe pain at the operative site, Persistent vomiting Wound Care Instructions: Remove dressing as instructed Remove Your Dressing In 5 Days IF UNABLE TO CONTACT YOUR PHYSICIAN AND YOU FEEL IT IS AN EMERGENCY, GO TO THE NEAREST EMERGENCY ROOM OR CALL 911 I, MEREDITH CHAIDEZ, have received the attached patient education materials/instructions and have verbalized understanding: May we do a follow up call? Yes No I was present when discharge instructions were given Patient Signature ___ Date Clinican/Nurse Signature Date Follow up: With: Address: When: Carlo Andrews [address] [place], [place] [id number] Business (1) Comments: Keep scheduled appointment Type Location Start [facility] Surgery [facility] 03/24/2023 3:00 PM 03/24/2023 3:32 PM Confirmed Medicare Wellness Subsequent [facility] 03/26/2023 1:00 PM 03/26/2023 2:00 PM Confirmed Pharmacy Information: You may receive a survey from Diane Ortega asking you to rate your care experience. Your feedback is important and will help us understand what we do well and how we can improve the quality of care we provide to you, your loved ones and our community. It?s an honor to serve you. Thank you for choosing [facility] HERE ARE THE MEDICATION CHANGES THAT OCCURRED DURING YOUR HOSPITAL STAY Medications to Continue Taking That Have Changed Other Medications START: amlodipine (amLODIPine 5 mg Tab) TAKE 1 TABLET BY MOUTH EVERY DAY. Refills: 0. START: cholecalciferol (Vitamin D3) 1 tab By Mouth every day. START: cyclobenzaprine (cyclobenzaprine 10 mg Tab) 1 Tablets By Mouth 3 times a day as needed for spasm. Refills: 0. START: metoprolol (metoprolol 25 mg ER Tab) 1 Tablets By Mouth 2 times a day. START: montelukast (Singulair 10 mg Tab) 1 Tablets By Mouth at bedtime. START: multivitamin with minerals (Estroven Menopause Supplement) 1 Tablets By Mouth every day. START: theophylline (theophylline 300 mg ER Tab) 1 Tablets By Mouth 2 times a day. START: tiotropium (Spiriva Respimat 1.25 mcg/inh inhalation aerosol) 2 Puffs Inhalation every day. Medications to Continue with No Changes Other Medications albuterol (Albuterol (Eqv-ProAir HFA)) 2 Puffs Inhalation as needed Shortness of breath or wheezing. cetirizine (cetirizine 10 mg oral capsule) 1 Capsules By Mouth every day as needed for allergy symptoms. clonidine (cloNIDine 0.1 mg tab) 1 Tablets By Mouth as needed Other (see comment)., prn is BP > 180/100 diphenhydrAMINE (diphenhydrAMINE 25 mg oral tablet) 1 Tablets By Mouth 3 times a day as needed Other (see comment). take one tab with gabapentin PRN TID ([employer] Allergy Relief). Refills: 0. febuxostat (Uloric) 40 Milligram By Mouth every day as needed Gout pain. fluconazole (Diflucan 150 mg Tab) 1 Tablets By Mouth Once. Refills: 0. gabapentin (gabapentin 300 mg Cap) 2 Capsules By Mouth 3 times a day as needed Other (see comment). TAKE 2 CAPSULES BY MOUTH 3 TIMES A DAY NEEDED. Refills: 2. guanfacine (guanfacine 2 mg oral tablet) 1 Tablets By Mouth once a day (at bedtime). hydroxychloroquine (hydroxychloroquine 200 mg Tab) 1 Tablets By Mouth every day., biologic for arthritis levothyroxine 50 Microgram By Mouth every day. Misc Prescription (Nebulizer Machine) Use as directed for aerosol treatments q 6rs prn Dx : J44.9. Refills: 0. Misc Prescription (Nebulizer Supplies) Mask, tubing, filters, cup, lid to use for aerosol treatments q 6hrs prn J44.9. Refills: 5. mupirocin topical (mupirocin To (more content not included)... Normal [facility] Platelet mean volume Auto (B ld) [Entitic vol]Ordered By: Duc Shrestha on 03-19-2023 Platelet mean volume (Bld) [Entitic vol] 8.9 fL 6.3-10.7 [facility] Platelets Auto (Bld) [#/Vol] Ordered By: Duc Shrestha on 03-19-2023 Platelets (Bld) [#/Vol] 296 10*3/uL 150-450 [facility] Potassium [Moles/volume] in Serum or PlasmaOrdered By: Duc Shrestha on 03-19-2023 Potassium [Moles/Vol] 4.7 mmol/L 3.5-5.1 [facility] Protein [Mass/volume] in Ser um or PlasmaOrdered By: Duc Shrestha on 03-19-2023 Protein [Mass/Vol] 7.8 g/dL 6.4-8.9 [facility] RBC Auto (Bld) [#/Vol]Ordere d By: Duc Shrestha on 03-19-2023 RBC (Bld) [#/Vol] 4.36 10*6/uL 3.60-5.00 [facility] Serum or plasma albumin/glob ulin mass ratioOrdered By: Duc Shrestha on 03-19-2023 Albumin/Globulin [Mass ratio] 1.3 {ratio} [facility] Serum or plasma anion gap de terminationOrdered By: Duc Shrestha on 03-19-2023 Anion gap [Moles/Vol] 13.7 mmol/L 6.0-15.0 [facility] Serum or plasma high density lipoprotein (HDL) cholesterol measurementOrdered By: Duc Shrestha on 03-19-2023 Cholesterol in HDL [Mass/Vol] 38 mg/dL 23-92 [facility] Comment on above: HDL CHOL ATP-III CLA SSIFICATION Cardiovascular RiskHDL > or equal to 60 mg/dL LOWHDL < 40 mg/dL HIGH Serum or plasma total choles terol/high density lipoprotein (HDL) cholesterol mass ratOrdered By: Duc Shrestha on 03-19-2023 Cholesterol.total/Vilma sterol in HDL [Mass ratio] 5.1 {ratio} <5.0 [facility] Sodium [Moles/volume] in Ser um or PlasmaOrdered By: Duc Shrestha on 03-19-2023 Sodium [Moles/Vol] 137 mmol/L 136-145 [facility] Thyrotropin [Units/volume] i n Serum or PlasmaOrdered By: Duc Shrestha on 03-19-2023 TSH Qn 0.84 m[IU]/L 0.45-5.33 [facility] Triglyceride [Mass/volume] i n Serum or PlasmaOrdered By: Duc Shrestha on 03-19-2023 Triglyceride [Mass/Vol] 490 mg/dL 0-149 [facility] Comment on above: If the triglyceride result is greater than 400, LDLC and related calculations cannot be calculated and resulted.TRIG ATP III CLASSIFICATIONTRIG less than 150 mg/dL NormalTRIG 150-199 mg/dL Borderline highTRIG 200-500 mg/dL High TRIG greater than 500 mg/dL Very highStandard traceable to the Center for Disease Conrtrol and Prevention (CDC) test method. Urea nitrogen [Mass/volume] in Serum or PlasmaOrdered By: Duc Shrestha on 03-19-2023 Urea nitrogen [Mass/Vol] 13 mg/dL 7-25 [facility] WBC Auto (Bld) [#/Vol]Ordere d By: Duc Shrestha on 03-19-2023 WBC (Bld) [#/Vol] 7.0 10*3/uL 3.8-11.6 [facility] Outside Recordson 03-18-2023 Outside Records [id number]:12 7 Normal [facility] Physician Referralon 023 Physician Referral [id number]:1 27 Normal [facility] CHEMISTRYOrdered By: SYSTEM SYSTEM on 01-14-2023 Albumin [Mass/Vol] 4.4 g/dL Normal 3.3 - 5.0 gm/dL [facility] Remisol Albumin/Globulin [Mass ratio] 1.0 {ratio} Low 1.1 - 2.2 [facility] Remisol ALP [Catalytic activity/Vol] 66 [iU]/d Normal 21 - 98 Int._Unit/L [facility] Remisol ALT No additional P-5'-P [Catalytic activity/Vol] 26 [iU]/d Normal 6 - 46 Int._Unit/L [facility] Remisol Anion gap [Moles/Vol] 16 mmol/L Normal 6 - 16 mEq/L [facility] Remisol AST [Catalytic activity/Vol] 27 [iU]/d Normal 5 - 43 Int._Unit/L [facility] Remisol Bilirubin [Mass/Vol] 0.6 mg/dL Normal 0.0 - 1 .1 mg/dL [facility] Remisol Bilirubin.direct [Mass/Vol] mg/dL Normal 0.1 - 0.4 mg/dL [facility] Remisol Bilirubin.indirect [Mass or moles/Vol] Unable to Calculate mg/dL Invalid Interpretation Code 0.1 - 0.9 mg/dL [facility] Remisol Calcium [Mass/Vol] 10.3 mg/dL Normal 8.9 - 11. 1 mg/dL [facility] Chloride [Moles/Vol] 103 mmol/L Normal 101 - 1 11 mmol/L [facility] CO2 [Moles/Vol] 22 mmol/L Normal 21 - 31 mmol/L [facility] Creatinine [Mass/Vol] 1.1 mg/dL Normal 0.5 - 1.3 mg/dL [facility] Remisol GFR/1.73 sq M.predicted among non-blacks MDRD (S/P/Bld) [Vol rate/Area] 60 mL/min/1.73 m2 Normal >=59mL/min/ 1.73 m2 [facility] S Globulin (S) [Mass/Vol] 4.6 g/dL High 1.4 - 4.0 gm/dL [facility] Remisol Glucose [Mass/Vol] 89 mg/dL Normal 55 - 199 mg/dL [facility] Remisol Lipase [Catalytic activity/Vol] 32 U/L Normal 13 - 58 unit/L [facility]isol Potassium [Moles/Vol] 3.6 mmol/L Normal 3.5 - 5.3 mmol/L [facility] Protein [Mass/Vol] 9.0 g/dL High 6.0 - 7.8 gm/dL [facility] Sodium [Moles/Vol] 137 mmol/L Normal 135 - 145 mmol/L [facility] Troponin I.cardiac [Mass/Vol] 3.70 pg/mL Low 10.10 - 27.10 pg/mL [facility] Urea nitrogen [Mass/Vol] 9 mg/dL Normal 5 - 21 mg/dL [facility] Urea nitrogen/Creatinine [Mass ratio] 8 mg/mg Low 10 - 20 [facility] Remisol CHEMISTRYOrdered By: Lab ROP User on 01-14-2023 Glucose [Mass/Vol] 89 mg/dL Normal 55 - 99 mg/dL [facility] POC Subsection Comment on above: Result Comment: Darby belcher RN/ POC Device SN [id number] Invalid Interpretation Code [facility] POC Subsection POC User ID [id number] Invalid Interpretation Code [facility] POC Subsection POC Username RACHEL MICHEL Invalid Interpretation Code [facility] POC Subsection COAGULATIONOrdered By: Bette Wells on 01-14-2023 aPTT Coag (PPP) [Time] 30.5 s Normal 25.1 - 36.5 second(s) [facility] Auto Coag INR Coag (PPP) [Relative time] 1.0 {INR} Invalid Interpretation Code [facility] Auto Coag PT Coag (PPP) [Time] 11.1 s Normal 9.4 - 1 2.5 second(s) [facility] Auto Coag HEMATOLOGYOrdered By: SYSTEM SYSTEM on 01-14-2023 Basophils/100 WBC (Bld) 1.3 % Normal 0.0 - 2.0 % [facility] HemeAutoSS Basophils/Leukocytes Auto (Bld) [Pure # fraction] 0.1 E9/L Normal 0.0 - 0.2 E9/L [facility] HemeAutoSS Eosinophils/100 WBC (Bld) 4.5 % Normal 0.0 - 8.0 % [facility] HemeAutoSS Eosinophils/Leukocytes Auto (Bld) [Pure # fraction] 0.3 E9/L Normal 0.0 - 0.5 E9/L [facility] HemeAutoSS Lymphocytes/100 WBC (Bld) 36.6 % Normal 14.0 - 50.0 % [facility] HemeAutoSS Lymphocytes/Leukocytes Auto (Bld) [Pure # fraction] 2.8 E9/L Normal 1.0 - 4.0 E9/L [facility]eAutoSS Monocytes/100 WBC (Bld) 8.4 % Normal 4.0 - 14.0 % [facility] HemeAutoSS Monocytes/Leukocytes Auto (Bld) [Pure # fraction] 0.6 E9/L Normal 0.2 - 1.0 E9/L [facility]eAutoSS Neutrophils/100 WBC (Bld) 49.2 % Normal 36.0 - 75.0 % [facility]eAutoSS Neutrophils/Leukocytes Auto (Bld) [Pure # fraction] 3.7 E9/L Normal 2.0 - 7.5 E9/L [facility] HemeAutoSS HEMATOLOGYOrdered By: Brook Farrell on 01-14-2023 Erythrocyte distribution width (RBC) [Ratio] 13.3 % Normal 10.9 - 14.2 % [facility]eAutoSS Hematocrit (Bld) [Volume fraction] 44.1 % Normal 34.0 - 46.0 % [facility]eAutoSS Hemoglobin (Bld) [Mass/Vol] 15.3 g/dL Normal 12.0 - 16.0 gm/dL [facility] MCH (RBC) [Entitic mass] 31.0 pg Normal 27.0 - 34.0 pg [facility]eAuto[facility] MCHC (RBC) [Mass/Vol] 34.8 g/dL Normal 31.4 - 36.0 gm/dL [facility]eAuto[facility] MCV (RBC) [Entitic vol] 89.1 fL Normal 80.0 - 100.0 fL [facility]eAuto[facility] Platelet mean volume (Bld) [Entitic vol] 9.3 fL Normal 6.4 - 10.8 fL [facility]eAuto[facility] Platelets (Bld) [#/Vol] 341.0 E9/L Normal 150. 0 - 500.0 E9/L [facility]Auto[facility] RBC (Bld) [#/Vol] 5.0 E12/L Normal 4.3 - 5.9 E12/L [facility] HemeAutoSS WBC corrected for nucl RBC Auto (Bld) [#/Vol] 7.5 E9/L Normal 4.0 - 11.0 E9/L [facility]Auto[facility] Comment on above: Result Comment: Slid e reviewed by ts. URINALYSISOrdered By: Klaus Wells on 01-14-2023 Bacteria LM Ql (Urine sed) 1+ /HPF Invalid Interpretation Code Trace/HPF [facility] UA Auto SS Bilirubin Ql (U) Negative (01/14/23 5:04 PM) Normal Negative [facility] UA Auto SS Clarity (U) Slightly Cloudy *ABN* (01/14/23 5:04 PM) Invalid Interpretation Code Clear [facility] UA Auto SS Color (U) Straw *ABN* (01/14/23 5:04 PM) Invalid Interpretation Code Yellow [facility] UA Auto SS Epithelial cells.squamous LM.HPF (Urine sed) [#/Area] /[HPF] Normal 0-2/HPF [facility] UA Auto SS Glucose Test strip (U) [Mass/Vol] Negative (01/14/23 5:04 PM) Normal Negative [facility] UA Auto SS Hemoglobin Ql (U) Negative (01/14/23 5:04 PM) Normal Negative [facility] UA Auto SS Ketones (U) [Mass/Vol] Negative (01/14/23 5:04 PM) Normal Negative [facility] UA Auto SS [place].plasma/[place]. RBC (Bld) [Mass ratio] 0-3 /HPF Normal 0-3/HPF [facility] UA Auto SS Nitrite Ql (U) Negative (01/14/23 5:04 PM) Normal Negative [facility] UA Auto SS pH (U) 5.5 *NA* (01/14/23 5:04 PM) Invalid Interpretation Code 5.0 - 9.0 [facility] UA Auto SS Protein (U) [Mass/Vol] Negative (01/14/23 5:04 PM) Normal Negative [facility] UA Auto SS Specific gravity (U) [Rel density] 1.010 *NA* (01/14/23 5:04 PM) Invalid Interpretation Code 1.005 - 1.030 [facility] UA Auto SS UA Spec Desc Clean Catch (01/14/23 5:04 PM) Normal [facility] UA Auto SS Urobilinogen Qn (U) [id number] {Shabbir'U}/dL Normal 0.0 - 1.0 EU/dL [facility] UA Auto SS WBC Auto Ql (U) Negative (01/14/23 5:04 PM) Normal Negative [facility] UA Auto SS WBC LM.HPF (Urine sed) [#/Area] 0-5 /HPF Normal 0-5/HPF [facility] UA Auto SS CBC W MANUAL DIFFon 09-13-19 ATYPICAL LYMPH # 0.05 103/ul Normal [facility] Comment on above: Performed By: #### C JAMES #### [facility] [address] [place] [address] Dr. Reema Harvey ATYPICAL LYMPH % 1 % Normal [facility] Comment on above: Performed By: #### C JAMES #### [facility] [address] [place] [address] Dr. Reema Harvey BAND # 0.0 103/ul Normal 0.0-0.3 [facility] Comment on above: Performed By: #### C JAMES #### [facility] [address] [place] [address] Dr. Reema Harvey BAND % 0 % Normal 0-5 [facility] Comment on above: Performed By: #### C JAMES #### [facility] [address] [place] [address] Dr. Reema Harvey BASOM # 0.00 103/ul Normal 0.00-0.10 [facility] Comment on above: Performed By: #### C JAMES #### [facility] [address] [place] [address] Dr. Reema Harvey BASOM % 0.0 % Critically low 0.2-2.0 [facility] Comment on above: Performed By: #### C JAMES #### [facility] [address] [place] [address] Dr. Reema Harvey BLAST # Normal [facility] Comment on above: Performed By: #### C JAMES #### [facility] [address] [place] [address] Dr. Reema Harvey BLAST % Normal [facility] Comment on above: Performed By: #### C JAMES #### [facility] [address] [place] [address] Dr. Reema Harvey CORRECTED WBC Normal 4.0-11.0 [facility] Comment on above: Performed By: #### C JAMES #### [facility] [address] [place] [address] Dr. Reema Harvey EOS # 0.31 103/ul Normal 0.00-0.70 [facility] Comment on above: Performed By: #### C JAMES #### [facility] [address] [place] [address] Dr. Reema Harvey EOS% 6.0 % Normal 0.9-7.0 [facility] Comment on above: Performed By: #### C JAMES #### [facility] [address] [place] [address] Dr. Reema Harvey HCT 32.9 % Critically low 36.0-48.0 [facility] Comment on above: Performed By: #### C JAMES #### [facility] [address] [place] [address] Dr. Reema Harvey HGB 12.0 g/dl Normal 12.0-16.0 [facility] Comment on above: Performed By: #### C JAMES #### [facility] [address] [place] [address] Dr. Reema Harvey LYMPHM # 2.03 103/ul Normal 1.20-3.80 [facility] Comment on above: Performed By: #### C JAMES #### [facility] [address] [place] [address] Dr. Reema Harvey LYMPHM% 39.0 % Normal 20.5-60.0 [facility] Comment on above: Performed By: #### C JAMES #### [facility] [address] [place] [address] Dr. Reema Harvey MCH 30.2 pg Normal 26.7-34.0 [facility] Comment on above: Performed By: #### C JAMES #### [facility] [address] [place] [address] Dr. Reema Harvey MCHC 36.5 g/dl Critically high 29.9-35.2 [facility] Comment on above: Performed By: #### C JAMES #### [facility] [address] [place] [address] Dr. Reema Harvey MCV 82.9 fL Normal 81.0-99.0 [facility] Comment on above: Performed By: #### C JAMES #### [facility] [address] [place] [address] Dr. Reema Harvey METAMYELOCYTE # Normal [facility] Comment on above: Performed By: #### C JAMES #### [facility] [address] [place] [address] Dr. Reema Harvey METAMYELOCYTE % Normal [facility] Comment on above: Performed By: #### C JAMES #### [facility] [address] [place] [address] Dr. Reema Harvey MONOM# 0.31 103/ul Normal 0.30-0.80 [facility] Comment on above: Performed By: #### C JAMES #### [facility] [address] [place] [address] Dr. Reema Harvey MONOM% 6.0 % Normal 1.7-12.0 [facility] Comment on above: Performed By: #### C JAMES #### [facility] [address] [place] [address] Dr. Reema Harvey MPV 9.4 fL Critically low 9.5-13.5 [facility] Comment on above: Performed By: #### Ember RAMIREZ #### [facility] [address] [place] [address] Dr. Reema Harvey MYELOCYTE # Normal [facility] Comment on above: Performed By: #### C JAMES #### [facility] [address] [place] [address] Dr. Reema Harvey MYELOCYTE % Normal [facility] Comment on above: Performed By: #### C JAMES #### [facility] [address] [place] [address] Dr. Reema Harvey NRBC Normal [facility] Comment on above: Performed By: #### C JAMES #### [facility] [address] [address] [address] Reema Harvey PLT 257 103/ul Normal 150-450 [facility] Comment on above: Performed By: #### C JAMES #### [facility] [address] [place] [address] Dr. Reema Harvey RBC 3.97 106/ul Critically low 4.20-5.40 [facility] Comment on above: Performed By: #### C JAMES #### [facility] [address] [place] [address] Dr. Reema Harvey RDW 12.9 % Normal 11.0-15.0 [facility] Comment on above: Performed By: #### C STACIMAN #### [facility] [address] [place] [address] Dr. Reema Harvey SEG # 2.50 103/ul Normal 1.40-6.50 [facility] Comment on above: Performed By: #### C STACIMAN #### [facility] [address] [place] [address] Dr. Reema Harvey SEG % 48.0 % Normal 43.0-75.0 [facility] Comment on above: Performed By: #### C JAMES #### [facility] [address] [place] [address] Dr. Reema Harvey WBC 5.2 103/ul Normal 4.0-11.0 [facility] Comment on above: Performed By: #### C JAMES #### [facility] [address] [place] [address] Dr. Reema Harvey PROF 14(COMP METB)on 023 Albumin [Mass/Vol] 3.4 g/dL Normal 3.4-5.0 [facility] Comment on above: Performed By: #### C MP #### [facility] [address] [place] [address] Dr. Reema Harvey Albumin/Globulin [Mass ratio] 0.8 {ratio} Normal [facility] Comment on above: Performed By: #### C MP #### [facility] [address] [place] [address] Dr. Reema Harvey ALP [Catalytic activity/Vol] 103 U/L Normal 46-116 [facility] Comment on above: Performed By: #### C MP #### [facility] [address] [place] [address] Dr. Reema Harvey ALT [Catalytic activity/Vol] 36 U/L Normal 14-59 [facility] Comment on above: Performed By: #### C MP #### [facility] [address] [address] [address] Reema Harvey Anion gap [Moles/Vol] 14.6 mmol/L Normal [facility] Comment on above: Performed By: #### C MP #### [facility] [address] [place] [address] Dr. Reema Harvey AST [Catalytic activity/Vol] 31 U/L Normal 15-37 [facility] Comment on above: Performed By: #### C MP #### [facility] [address] [address] [address] Reema Harvey Bilirubin [Mass/Vol] 0.2 mg/dL Normal 0.2-1.0 [facility] Comment on above: Performed By: #### C MP #### [facility] [address] [place] [address] Dr. Reema Harvey Calcium [Mass/Vol] 8.7 mg/dL Normal 8.5-10.1 [facility] Comment on above: Performed By: #### C MP #### [facility] [address] [place] [address] Dr. Reema Harvey Chloride [Moles/Vol] 104 mmol/L Normal 98-107 [facility] Comment on above: Performed By: #### C MP #### [facility] [address] [place] [address] Dr. Reema Harvey CO2 [Moles/Vol] 24.1 mmol/L Normal 21.0-32.0 [facility] Comment on above: Performed By: #### C MP #### [facility] [address] [place] [address] Dr. Reema Harvey Creatinine [Mass/Vol] 0.99 mg/dL Normal 0.55-1.02 [facility] Comment on above: Performed By: #### C MP #### [facility] [address] [place] [address] Dr. Reema Harvey EGFR-AF CAMEROONIAN >60 Normal >=60 [facility] Comment on above: Performed By: #### C MP #### [facility] [address] [place] [address] Dr. Reema Harvey EGFR-NON AF CAMEROONIAN 59 mL/min/1.73m2 Critically low >=60 [facility] Comment on above: Performed By: #### C MP #### [facility] [address] [place] [address] Dr. Reema Harvey Globulin (S) [Mass/Vol] 4.1 g/dL Normal [facility] Comment on above: Performed By: #### C MP #### [facility] [address] [address] [address] Reema Harvey Glucose [Mass/Vol] 110 mg/dL Critically high 74-106 [facility] Comment on above: Performed By: #### C MP #### [facility] [address] [place] [address] Dr. Reema Harvey Potassium [Moles/Vol] 3.7 mmol/L Normal 3.5-5.1 [facility] Comment on above: Performed By: #### C MP #### [facility] [address] [place] [address] Dr. Reema Harvey Protein [Mass/Vol] 7.5 g/dL Normal 6.4-8.2 [facility] Comment on above: Performed By: #### C MP #### [facility] [address] [place] [address] Dr. Reema Harvey Sodium [Moles/Vol] 139 mmol/L Normal 136-145 [facility] Comment on above: Performed By: #### C MP #### [facility] [address] [place] [address] Dr. Reema Harvey Urea nitrogen [Mass/Vol] 6.0 mg/dL Critically low 7.0-18.0 [facility] Comment on above: Performed By: #### C MP #### [facility] [address] [place] [address] Dr. Reema Harvey Urea nitrogen/Creatinine [Mass ratio] 6.1 mg/mg Normal [facility] Comment on above: Performed By: #### C MP #### [facility] [address] [place] [address] Dr. Reema Harvey CBC AUTO DIFFon 09-12-2022 BASO # 0.1 103/ul Normal 0.0-0.1 [facility] Comment on above: Performed By: #### C MP #### [facility] [address] [place] [address] Dr. Reema Harvey Basophils/100 WBC (Bld) 1.4 % Normal 0.2-2.0 [facility] Comment on above: Performed By: #### C MP #### [facility] [address] [place] [address] Dr. Reema Harvey EO # 0.1 103/ul Normal 0.0-0.7 [facility] Comment on above: Performed By: #### C MP #### [facility] [address] [place] [address] Dr. Reema Harvey Eosinophils/100 WBC (Bld) 3.0 % Normal 0.9-7.0 [facility] Comment on above: Performed By: #### C MP #### [facility] [address] [place] [address] Dr. Reema Harvey Erythrocyte distribution width (RBC) [Ratio] 13.6 % Normal 11.0-15.0 [facility] Comment on above: Performed By: #### C MP #### [facility] [address] [place] [address] Dr. Reema Harvey Hematocrit (Bld) [Volume fraction] 41.8 % Normal 36.0-48.0 [facility] Comment on above: Performed By: #### C MP #### [facility] [address] [place] [address] Dr. Reema Harvey Hemoglobin (Bld) [Mass/Vol] 13.2 g/dL Normal 12.0-16.0 [facility] Comment on above: Performed By: #### C MP #### [facility] [address] [place] [address] Dr. Reema Harvey IG # 0.02 10e3/ul Normal 0.00-0.03 [facility] Comment on above: Performed By: #### C MP #### [facility] [address] [place] [address] Dr. Reema Harvey IG % 0.5 % Normal 0.0-0.5 [facility] Comment on above: Performed By: #### C MP #### [facility] [address] [place] [address] Dr. Reema Hravey LYMPH # 1.7 103/ul Normal 1.2-3.8 [facility] Comment on above: Performed By: #### C MP #### [facility] [address] [place] [address] Dr. Reema Harvey Lymphocytes/100 WBC (Bld) 38.4 % Normal 20.5-60.0 [facility] Comment on above: Performed By: #### C MP #### [facility] [address] [place] [address] Dr. Reema Harvey MANUAL DIFF REQ NO Normal [facility] Comment on above: Performed By: #### C MP #### [facility] [address] [place] [address] Dr. Reema Harvey MCH (RBC) [Entitic mass] 30.3 pg Normal 26.7-34.0 [facility] Comment on above: Performed By: #### C MP #### [facility] [address] [place] [address] Dr. Reema Harvey MCHC (RBC) [Mass/Vol] 31.6 g/dL Normal 29.9-35.2 [facility] Comment on above: Performed By: #### C MP #### [facility] [address] [place] [address] Dr. Reema Harvey MCV (RBC) [Entitic vol] 95.9 fL Normal 81.0-99.0 [facility] Comment on above: Performed By: #### C MP #### [facility] [address] [place] [address] Dr. Reema Harvey MONO # 0.7 103/ul Normal 0.3-0.8 [facility] Comment on above: Performed By: #### C MP #### [facility] [address] [place] [address] Dr. Reema Harvey Monocytes/100 WBC (Bld) 16.1 % Critically high 1.7-12. 0 [facility] Comment on above: Performed By: #### C MP #### [facility] [address] [address] [address] Reema Harvey NEUT # 1.8 103/ul Normal 1.4-6.5 [facility] Comment on above: Performed By: #### C MP #### [facility] [address] [id number] Reema Harvey Neutrophils/100 WBC (Bld) 40.6 % Critically low 43.0-75.0 [facility] Comment on above: Performed By: #### C MP #### [facility] [address] [place] [address] Dr. Reema Harvey Platelet mean volume (Bld) [Entitic vol] 9.7 fL Normal 9.5-13.5 [facility] Comment on above: Performed By: #### C MP #### [facility] [address] [place] [address] Dr. Reema Harvey PLT 240 103/ul Normal 150-450 [facility] Comment on above: Performed By: #### C MP #### [facility] [address] [place] [address] Dr. Reema Harvey RBC 4.36 106/ul Normal 4.20-5.40 [facility] Comment on above: Performed By: #### C MP #### [facility] [address] [place] [address] Dr. Reema Harvey WBC 4.4 103/ul Normal 4.0-11.0 [facility] Comment on above: Performed By: #### C MP #### [facility] [address] [place] [address] Dr. Reema Harvey CULTURE URINEon 09-12-2022 CULTURE URINE Culture Observations : LIGHT GROWTH OF MIXED GENITAL SHIVANI. NO POTENTIAL PATHOGENS SEEN. Normal [facility] Comment on above: Performed By: #### C BCMAN #### [facility] [address] [place] [address] Dr. Reema Harvey PROF 14(COMP METB)on 023 Albumin [Mass/Vol] 3.2 g/dL Critically low 3.4-5.0 [facility] Comment on above: Performed By: #### C MP #### [facility] [address] [place] [address] Dr. Reema Harvey Albumin/Globulin [Mass ratio] 0.7 {ratio} Normal [facility] Comment on above: Performed By: #### C MP #### [facility] [address] [address] [address] Reema Harvey ALP [Catalytic activity/Vol] 80 U/L Normal 46-116 [facility] Comment on above: Performed By: #### C MP #### [facility] [address] [place] [address] Dr. Reema Harvey ALT [Catalytic activity/Vol] 38 U/L Normal 14-59 [facility] Comment on above: Performed By: #### C MP #### [facility] [address] [place] [address] Dr. Reema Harvey Anion gap [Moles/Vol] 13.6 mmol/L Normal [facility] Comment on above: Performed By: #### C MP #### [facility] [address] [place] [address] Dr. Reema Harvey AST [Catalytic activity/Vol] 35 U/L Normal 15-37 [facility] Comment on above: Performed By: #### C MP #### [facility] [address] [place] [address] Dr. Reema Harvey Bilirubin [Mass/Vol] 0.3 mg/dL Normal 0.2-1.0 [facility] Comment on above: Performed By: #### C MP #### [facility] [address] [place] [address] Dr. Reema Harvey Calcium [Mass/Vol] 8.8 mg/dL Normal 8.5-10.1 [facility] Comment on above: Performed By: #### C MP #### [facility] [address] [place] [address] Dr. Reema Harvey Chloride [Moles/Vol] 102 mmol/L Normal 98-107 [facility] Comment on above: Performed By: #### C MP #### [facility] [address] [address] [address] Reema Harvey CO2 [Moles/Vol] 24.2 mmol/L Normal 21.0-32.0 [facility] Comment on above: Performed By: #### C MP #### [facility] [address] [address] [address] Reema Harvey Creatinine [Mass/Vol] 1.02 mg/dL Normal 0.55-1.02 [facility] Comment on above: Performed By: #### C MP #### [facility] [address] [address] [address] Reema Harvey EGFR-AF CAMEROONIAN >60 Normal >=60 [facility] Comment on above: Performed By: #### C MP #### [facility] [address] [place] [address] Dr. Reema Harvey EGFR-NON AF CAMEROONIAN 57 mL/min/1.73m2 Critically low >=60 [facility] Comment on above: Performed By: #### C MP #### [facility] [address] [place] [address] Dr. eRema Harvey Globulin (S) [Mass/Vol] 4.3 g/dL Normal [facility] Comment on above: Performed By: #### C MP #### [facility] [address] [place] [address] Dr. Reema Harvey Glucose [Mass/Vol] 115 mg/dL Critically high 74-106 [facility] Comment on above: Performed By: #### C MP #### [facility] [address] [place] [address] Dr. Reema Harvey Potassium [Moles/Vol] 3.8 mmol/L Normal 3.5-5.1 [facility] Comment on above: Performed By: #### C MP #### [facility] [address] [place] [address] Dr. Reema Harvey Protein [Mass/Vol] 7.5 g/dL Normal 6.4-8.2 [facility] Comment on above: Performed By: #### C MP #### [facility] [address] [place] [address] Dr. Reema Harvey Sodium [Moles/Vol] 136 mmol/L Normal 136-145 [facility] Comment on above: Performed By: #### C MP #### [facility] [address] [place] [address] Dr. Reema Harvey Urea nitrogen [Mass/Vol] 8.0 mg/dL Normal 7.0-18.0 [facility] Comment on above: Performed By: #### C MP #### [facility] [address] [place] [address] Dr. Reema Harvey Urea nitrogen/Creatinine [Mass ratio] 7.8 mg/mg Normal [facility] Comment on above: Performed By: #### C MP #### [facility] [address] [place] [address] Dr. Reema Harvey CBC W MANUAL DIFFon 09-11-19 23 ATYPICAL LYMPH # 0.43 103/ul Normal [facility] Comment on above: Performed By: #### C STACIMAN #### [facility] [address] [place] [address] Dr. Reema Harvey ATYPICAL LYMPH % 11 % Normal [facility] Comment on above: Performed By: #### C BCMAN #### [facility] [address] [place] [address] Dr. Reema Harvey BAND # Normal 0.0-0.3 [facility] Comment on above: Performed By: #### C STACIMAN #### [facility] [address] [place] [address] Dr. Reema Harvey BAND % Normal 0-5 [facility] Comment on above: Performed By: #### C BCMAN #### [facility] [address] [place] [address] Dr. Reema Harvey BASOM # 0.08 103/ul Normal 0.00-0.10 [facility] Comment on above: Performed By: #### C BCMAN #### [facility] [address] [place] [address] Dr. Reema Harvey BASOM % 2.0 % Normal 0.2-2.0 [facility] Comment on above: Performed By: #### C JAMES #### [facility] [address] [place] [address] Dr. Reema Harvey BLAST # Normal [facility] Comment on above: Performed By: #### C JAMES #### [facility] [address] [place] [address] Dr. Reema Harvey BLAST % Normal [facility] Comment on above: Performed By: #### C JAMES #### [facility] [address] [place] [address] Dr. Reema Harvey CORRECTED WBC Normal 4.0-11.0 [facility] Comment on above: Performed By: #### C JAMES #### [facility] [address] [place] [address] Dr. Reema Harvey EOS # 0.12 103/ul Normal 0.00-0.70 [facility] Comment on above: Performed By: #### C JAMES #### [facility] [address] [place] [address] Dr. Reema Harvey EOS% 3.0 % Normal 0.9-7.0 [facility] [facility] Comment on above: Performed By: #### C JAMES #### [facility] [address] [place] [address] Dr. Reema Harvey HCT 45.4 % Normal 36.0-48.0 [facility] Comment on above: Performed By: #### C JAMES #### [facility] [address] [place] [address] Dr. Reema Harvey HGB 15.3 g/dl Normal 12.0-16.0 [facility] Comment on above: Performed By: #### C JAMES #### [facility] [address] [place] [address] Dr. Reema Harvey LYMPHM # 1.60 103/ul Normal 1.20-3.80 [facility] Comment on above: Performed By: #### C JAMES #### [facility] [address] [place] [address] Dr. Reema Harvey LYMPHM% 41.0 % Normal 20.5-60.0 [facility] Comment on above: Performed By: #### C JAMES #### [facility] [address] [place] [address] Dr. Reema Harvey MCH 30.7 pg Normal 26.7-34.0 [facility] Comment on above: Performed By: #### C JAMES #### [facility] [address] [place] [address] Dr. Reema Harvey MCHC 33.7 g/dl Normal 29.9-35.2 [facility] Comment on above: Performed By: #### C JAMES #### [facility] [address] [place] [address] Dr. Reema Harvey MCV 91.0 fL Normal 81.0-99.0 [facility] Comment on above: Performed By: #### C JAMES #### [facility] [address] [place] [address] Dr. Reema Harvey METAMYELOCYTE # Normal [facility] Comment on above: Performed By: #### C JAMES #### [facility] [address] [place] [address] Dr. Reema Harvey METAMYELOCYTE % Normal [facility] Comment on above: Performed By: #### C JAMES #### [facility] [address] [place] [address] Dr. Reema Harvey MONOM# 0.39 103/ul Normal 0.30-0.80 [facility] Comment on above: Performed By: #### C JAMES #### [facility] [address] [place] [address] Dr. Reema Harvey MONOM% 10.0 % Normal 1.7-12.0 [facility] Comment on above: Performed By: #### C JAMES #### [facility] [address] [place] [address] Dr. Reema Harvey MPV 9.8 fL Normal 9.5-13.5 [facility] Comment on above: Performed By: #### C JAMES #### [facility] [address] [place] [address] Dr. Reema Harvey MYELOCYTE # Normal [facility] Comment on above: Performed By: #### C JAMES #### [facility] [address] [place] [address] Dr. Reema Harvey MYELOCYTE % Normal [facility] Comment on above: Performed By: #### C JAMES #### [facility] [address] [place] [address] Dr. Reema Harvey NRBC Normal [facility] Comment on above: Performed By: #### C JAMES #### [facility] [address] [place] [address] Dr. Reema Harvey PLT 287 103/ul Normal 150-450 [facility] Comment on above: Performed By: #### C JAMES #### [facility] [address] [place] [address] Dr. Reema Harvey RBC 4.99 106/ul Normal 4.20-5.40 [facility] Comment on above: Performed By: #### C JAMES #### [facility] [address] [place] [address] Dr. Reema Harvey RDW 13.7 % Normal 11.0-15.0 [facility] Comment on above: Performed By: #### C JAMES #### [facility] [address] [place] [address] Dr. Reema Harvey SEG # 1.29 103/ul Critically low 1.40-6.50 [facility] Comment on above: Performed By: #### C JAMES #### [facility] [address] [place] [address] Dr. Reema Harvey SEG % 33.0 % Critically low 43.0-75.0 [facility] Comment on above: Performed By: #### C JAMES #### [facility] [address] [place] [address] Dr. Reema Harvey WBC 3.9 103/ul Critically low 4.0-11.0 [facility] Comment on above: Performed By: #### C JAMES #### [facility] [address] [place] [address] Dr. Reema Harvey CULTURE BLOODon 09-11-2022 Microscopic examination of blood, culture Culture Observations: NO GROWTH AT 5 DAYS. Normal [facility] Comment on above: Performed By: #### C BCMAN #### [facility] [address] [place] [address] Dr. Reema Harvey Microscopic examination of blood, culture Culture Observations: NO GROWTH AT 5 DAYS. Normal [facility] Comment on above: Performed By: #### C BCMAN #### [facility] [address] [place] [address] Dr. Reema Harvey Covid-19 PCR (CVDTB)on SARS-CoV-2 (COVID-19) RNA JAMES+probe Ql (Unsp spec) Not detected Normal NOT DETECTED [facility] Comment on above: Result Comment: When diagnostic testing is negative, the possibility of a false negative should be considered in the context of a patient's recent exposures and the presence of clinical signs and symptoms consistent with SARS-CoV-2. This test is not yet approved or cleared by the [place] FDA. When there are no FDA-approved or cleared tests available, and other criteria are met, FDA can make tests available under an emergency access mechanism called an Emergency Use Authorization (EUA). The EUA for this test is supported by the [place] of Health and Human Service's declaration that circumstances exist to justify the emergency use of in vitro diagnostics for the detection and/or diagnosis of the virus that causes COVID-19. This EUA will remain in effect for the duration of the COVID-19 declaration justifying emergency of IVDs, unless it is terminated or revoked by the FDA (after which the test may no longer be used). Performed By: #### C VDTB #### [facility] [address] [place] [address] Dr. Reema Harvey JOSE L-LOZADA VIRUS (EBV) AB PROFILEon 09-11-2022 EBV Ab VCA, IgG >600.0 Critically high 0.0-17.9 [facility] Comment on above: Result Comment: Nega tive <18.0 Equivocal 18.0 - 21.9 Positive >21.9 Performed By: #### C BCMAN #### [facility] [address] [place] [address] Dr. Reema Harvey EBV Ab VCA, IgM <36.0 Normal 0.0-35.9 [facility] Comment on above: Result Comment: Nega tive <36.0 Equivocal 36.0 - 43.9 Positive >43.9 Performed By: #### C JAMES #### [facility] [address] [place] [address] Dr. Reema Harvey EBV Nuclear Antigen Ab, IgG >600.0 Critically high 0.0-17.9 [facility] Comment on above: Result Comment: Nega tive <18.0 Equivocal 18.0 - 21.9 Positive >21.9 Performed By: #### C JAMES #### [facility] [address] [place] [address] Dr. Reema Harvey Interpretation: Comment Normal [facility] Comment on above: Result Comment: EBV Interpretation Chart [place]: Antibody Present + Antibody Absent - Interpretation VCA-IgM VCA-IgG EBNA-IgG . No previous infection/ - - - Susceptible Primary infection (new + + - or recent) Past Infection +or- + + See comment below* + - - *Results indicate infection with EBV at some time however cannot predict the timing of the infection since antibodies to EBNA usually develop after primary infection or, alternatively, approximately 5-10% of patients with EBV never develop antibodies to EBNA. Performed By: #### C JAMES #### [facility] [address] [place] [address] Dr. Reema Harvey CBC AUTO DIFFon 09-10-2022 BASO # 0.1 103/ul Normal 0.0-0.1 [facility] Comment on above: Performed By: #### C AMANDO #### [facility] [address] [place] [address] Dr. Reema Harvey Basophils/100 WBC (Bld) 1.1 % Normal 0.2-2.0 [facility] Comment on above: Performed By: #### C MP #### [facility] [address] [place] [address] Dr. Reema Harvey EO # 0.1 103/ul Normal 0.0-0.7 [facility] Comment on above: Performed By: #### C AMANDO #### [facility] [address] [place] [address] Dr. Reema Harvey Eosinophils/100 WBC (Bld) 2.8 % Normal 0.9-7.0 [facility] Comment on above: Performed By: #### C MP #### [facility] [address] [place] [address] Dr. Reema Harvey Erythrocyte distribution width (RBC) [Ratio] 13.6 % Normal 11.0-15.0 [facility] Comment on above: Performed By: #### C MP #### [facility] [address] [place] [address] Dr. Reema Harvey Hematocrit (Bld) [Volume fraction] 44.8 % Normal 36.0-48.0 [facility] Comment on above: Performed By: #### C MP #### [facility] [address] [place] [address] Dr. Reema Harvey Hemoglobin (Bld) [Mass/Vol] 15.2 g/dL Normal 12.0-16.0 [facility] Comment on above: Performed By: #### C MP #### [facility] [address] [place] [address] Dr. Reema Harvey IG # 0.01 10e3/ul Normal 0.00-0.03 [facility] Comment on above: Performed By: #### C MP #### [facility] [address] [place] [address] Dr. Reema Harvey IG % 0.2 % Normal 0.0-0.5 [facility] Comment on above: Performed By: #### C MP #### [facility] [address] [place] [address] Dr. Reema Harvey LYMPH # 1.0 103/ul Critically low 1.2-3.8 [facility] Comment on above: Performed By: #### C MP #### [facility] [address] [place] [address] Dr. Reema Harvey Lymphocytes/100 WBC (Bld) 22.4 % Normal 20.5-60.0 [facility] Comment on above: Performed By: #### C MP #### [facility] [address] [place] [address] Dr. Reema Harvey MANUAL DIFF REQ NO Normal [facility] Comment on above: Performed By: #### C MP #### [facility] [address] [place] [address] Dr. Reema Harvey MCH (RBC) [Entitic mass] 30.5 pg Normal 26.7-34.0 [facility] Comment on above: Performed By: #### C MP #### [facility] [address] [place] [address] Dr. Reema Harvey MCHC (RBC) [Mass/Vol] 33.9 g/dL Normal 29.9-35.2 [facility] Comment on above: Performed By: #### C MP #### [facility] [address] [place] [address] Dr. Reema Harvey MCV (RBC) [Entitic vol] 90.0 fL Normal 81.0-99.0 [facility] Comment on above: Performed By: #### C MP #### [facility] [address] [place] [address] Dr. Reema Harvey MONO # 0.7 103/ul Normal 0.3-0.8 [facility] Comment on above: Performed By: #### C MP #### [facility] [address] [place] [address] Dr. Reema Harvey Monocytes/100 WBC (Bld) 14.4 % Critically high 1.7-12. 0 [facility] Comment on above: Performed By: #### C MP #### [facility] [address] [place] [address] Dr. Reema Harvey NEUT # 2.7 103/ul Normal 1.4-6.5 [facility] Comment on above: Performed By: #### C MP #### [facility] [address] [place] [address] Dr. Reema Harvey Neutrophils/100 WBC (Bld) 59.1 % Normal 43.0-75.0 [facility] Comment on above: Performed By: #### C MP #### [facility] [address] [place] [address] Dr. Reema Harvey Platelet mean volume (Bld) [Entitic vol] 9.6 fL Normal 9.5-13.5 [facility] Comment on above: Performed By: #### C MP #### [facility] [address] [place] [address] Dr. Reema Harvey PLT 290 103/ul Normal 150-450 [facility] Comment on above: Performed By: #### C MP #### [facility] [address] [place] [address] Dr. Reema Harvey RBC 4.98 106/ul Normal 4.20-5.40 [facility] Comment on above: Performed By: #### C MP #### [facility] [address] [place] [address] Dr. Reema Harvey WBC 4.6 103/ul Normal 4.0-11.0 [facility] Comment on above: Performed By: #### C MP #### [facility] [address] [place] [address] Dr. Reema Harvey CRPon 09-10-2022 CRP 2.2 mg/dL Critically high <=1.0 [facility] Comment on above: Performed By: #### C RP, CMP #### [facility] [address] [place] [address] Dr. Reema Harvey PROF 14(COMP METB)on 023 Albumin [Mass/Vol] 3.9 g/dL Normal 3.4-5.0 [facility] Comment on above: Performed By: #### C RP, CMP #### [facility] [address] [place] [address] Dr. Reema Harvey Albumin/Globulin [Mass ratio] 0.8 {ratio} Normal [facility] Comment on above: Performed By: #### C RP, CMP #### [facility] [address] [place] [address] Dr. Reema Harvey ALP [Catalytic activity/Vol] 97 U/L Normal 46-116 [facility] Comment on above: Performed By: #### C RP, CMP #### [facility] [address] [place] [address] Dr. Reema Harvey ALT [Catalytic activity/Vol] 44 U/L Normal 14-59 [facility] Comment on above: Performed By: #### C RP, CMP #### [facility] [address] [place] [address] Dr. Reema Harvey Anion gap [Moles/Vol] 15.3 mmol/L Normal [facility] Comment on above: Performed By: #### C RP, CMP #### [facility] [address] [place] [address] Dr. Reema Harvey AST [Catalytic activity/Vol] 37 U/L Normal 15-37 [facility] Comment on above: Performed By: #### C RP, CMP #### [facility] [address] [place] [address] Dr. Reema Harvey Bilirubin [Mass/Vol] 0.3 mg/dL Normal 0.2-1.0 [facility] Comment on above: Performed By: #### C RP, CMP #### [facility] [address] [place] [address] Dr. Reema Harvey Calcium [Mass/Vol] 9.3 mg/dL Normal 8.5-10.1 [facility] Comment on above: Performed By: #### C RP, CMP #### [facility] [address] [place] [address] Dr. Reema Harvey Chloride [Moles/Vol] 98 mmol/L Normal 98-107 [facility] Comment on above: Performed By: #### C RP, CMP #### [facility] [address] [place] [address] Dr. Reema Harvey CO2 [Moles/Vol] 25.2 mmol/L Normal 21.0-32.0 [facility] Comment on above: Performed By: #### C RP, CMP #### [facility] [address] [place] [address] Dr. Reema Harvey Creatinine [Mass/Vol] 1.09 mg/dL Critically high 0.55-1.02 [facility] Comment on above: Performed By: #### C RP, CMP #### [facility] [address] [place] [address] Dr. Reema Harvey EGFR-AF CAMEROONIAN >60 Normal >=60 [facility] Comment on above: Performed By: #### C RP, CMP #### [facility] [address] [address] [address] Reema Harvey EGFR-NON AF CAMEROONIAN 53 mL/min/1.73m2 Critically low >=60 [facility] Comment on above: Performed By: #### C RP, CMP #### [facility] [address] [place] [address] Dr. Reema Harvey Globulin (S) [Mass/Vol] 5.0 g/dL Normal [facility] Comment on above: Performed By: #### C RP, CMP #### [facility] [address] [place] [address] Dr. Reema Harvey Glucose [Mass/Vol] 121 mg/dL Critically high 74-106 [facility] Comment on above: Performed By: #### C RP, CMP #### [facility] [address] [place] [address] Dr. Reema Harvey Potassium [Moles/Vol] 3.5 mmol/L Normal 3.5-5.1 [facility] Comment on above: Performed By: #### C RP, CMP #### [facility] [address] [place] [address] Dr. Reema Harvey Protein [Mass/Vol] 8.9 g/dL Critically high 6.4-8.2 [facility] Comment on above: Performed By: #### C RP, CMP #### [facility] [address] [place] [address] Dr. Reema Harvey Sodium [Moles/Vol] 135 mmol/L Critically low 136-145 [facility] Comment on above: Performed By: #### C RP, CMP #### [facility] [address] [place] [address] Dr. Reema Harvey Urea nitrogen [Mass/Vol] 10.0 mg/dL Normal 7.0-18.0 [facility] Comment on above: Performed By: #### C RP, CMP #### [facility] [address] [place] [address] Dr. Reema Harvey Urea nitrogen/Creatinine [Mass ratio] 9.2 mg/mg Normal [facility] Comment on above: Performed By: #### C RP, CMP #### [facility] [address] [address] [address] Reema Harvey XR CSPINE MIN 4 VIEWSon 08-13 XR CSPINE MIN 4 VIEWS EXAMINATION: XR CS PINE MIN 4 VIEWS HISTORY: Neck pain acute left neck pain and swelling for one week COMPARISON: XR C-spine 02/01/2022 FINDINGS: BONES: Straightening of normal lordotic curvature. Anterior mechanical fusion of C4-C5 with intervertebral disc spacer. Moderate degenerative facet arthropathy C2-3 through C5-6 with bone encroachment on the neural foramen. DISC SPACES: C4-5 intervertebral disc spacer. Moderate marked narrowing C5-6. Mild narrowing C6-7. PARASPINOUS: Negative. No paraspinous abnormality is seen. OTHER: Negative. IMPRESSION: 1. Grossly stable surgical changes and multilevel moderate marked degenerative changes. Multilevel moderate narrowing of the neural foramen bilaterally likely contributing to patient's symptoms. Electronically authenticated by: KYRA URBANO Date: 2022-09-10 15:57 Normal [facility] SJOGRENS ANTIBODIES (Anti SS A/B)on 08-16-2022 Sjogren's Anti-SS-A <0.2 Normal 0.0-0.9 [facility] Comment on above: Performed By: #### S AASSAB #### [facility] [address] [address] [address] Reema Harvey Sjogren's Anti-SS-B <0.2 Normal 0.0-0.9 [facility] Comment on above: Performed By: #### S AASSAB #### [facility] [address] [address] [address] Reema Harvey XR MODIFIED BARIUM SWALLOWon 07-02-2022 XR MODIFIED BARIUM SWALLOW EXAMINATION: XR MODIFIED BARIUM SWALLOW HISTORY: Choking COMPARISON: No relevant comparison available. TECHNIQUE: A swallowing evaluation was performed with fluoroscopy in the usual manner. Standard level fluoroscopic mode of operation utilized. FINDINGS: ORAL PHASE: Normal deglutition. PHARYNGEAL PHASE: Patient demonstrates difficulty in initiation of swallowing, once initiated the function appears normal. ASPIRATION: None. STRUCTURE: Normal. No visible obstruction, stricture, or dilatation. OTHER: No obstruction of the esophagus, but numerous tertiary waves and decreased peristalsis; however the esophagus does empty. IMPRESSION: 1. No appreciable physical or mechanical abnormality to account for patient's symptoms. 2. Patient demonstrates difficulty in initiating the swallowing function, but this is of uncertain etiology. The patient also describes episodic tongue and throat numbness, and episodes of inability to say the words she is thinking about. Consider neurology consult and MRI of the brain. Electronically authenticated by: KYRA URBANO Date: 2022-07-02 14:12 Normal [facility] ACETYLCHO R MOD ABon 022 ACETYLCHOLINE RECEPT/MODULATING 0 % Normal <=45 [facility] Comment on above: Order Comment: Speci men Type: BLOOD SPECIMEN Ordering Facility: [facility] Address: [address] [place] [address] Result Comment: INTE RPRETIVE INFORMATION: Acetylcholine Modulating Ab Negative .......... 0-45 percent modulating Positive .......... 46 percent or greater modulating Approximately 85-90 percent of patients with myasthenia gravis (MG) express antibodies to the acetylcholine receptor (AChR), which can be divided into binding, blocking, and modulating antibodies. Binding antibody can activate complement and lead to loss of AChR. Blocking antibody may impair binding of acetylcholine to the receptor, leading to poor muscle contraction. Modulating antibody causes receptor endocytosis resulting in loss of AChR expression, which correlates most closely with clinical severity of disease. Approximately 10-15 percent of individuals with confirmed myasthenia gravis have no measurable binding, blocking, or modulating antibodies. This test was developed and its performance characteristics determined by [facility] [employer] [facility]. It has not been cleared or approved by the [place] Food and Drug Administration. This test was performed in a CLIA certified laboratory and is intended for clinical purposes. Performed By: [facility] [address] [place] [address] Tar Chaser: Nolberto Shepherd MD, PhD Performed By: #### A CEMOD #### [facility] CLIA [id number] [address] [place] [address] ACETYLCHOLINE REC BINDING AB on 05-07-2022 ACETYLCHOLINE BINDING, QUAL Negative Normal Negative [facility] Comment on above: Order Comment: Jet otto Type: BLOOD SPECIMEN Ordering Facility: [facility] Address: [address] [place] [address] Result Comment: Anti -acetylcholine receptor binding antibody test is used as an aid in diagnosis of myasthenia gravis. A negative result cannot exclude myasthenia gravis. Clinical correlation is required. Performed By: #### A CHRAB #### [facility] CLIA [id number] [address] [place] [address] [place] Acetylcholine receptor binding Ab (S) [Moles/Vol] 0.08 nmol/L Normal <0.21 [facility] Comment on above: Order Comment: Jet otto Type: BLOOD SPECIMEN Ordering Facility: [facility] Address: [address] [place] [address] Performed By: #### A CHRAB #### [facility] CLIA [id number] [address] [place] [address] [place] ACETYLCHOLINE REC BLOCKING A Bon 05-07-2022 ACETYLCHOLINE BLOCKING, QUAL Negative Normal Negative [facility] Comment on above: Order Comment: Jet otto Type: BLOOD SPECIMEN Ordering Facility: [facility] Address: [address] [place] [address] Result Comment: Anti -acetylcholine receptor blocking antibody test is used as an aid in diagnosis of myasthenia gravis. A negative result cannot exclude myasthenia gravis. Clinical correlation is required. Performed By: #### A CEBAB #### [facility] CLIA [id number] [address] [place] [address] [place] Acetylcholine receptor blocking Ab/Acetylcholine Ab.total (S) [Molar fraction] <13 Normal <21 [facility] Comment on above: Order Comment: Jet clarita Type: BLOOD SPECIMEN Ordering Facility: [facility] Address: [address] [place] [address] Performed By: #### A CEBAB #### [facility] CLIA [id number] [address] [id number] [address] [place] MUSK ANTIBODY TESTon 022 MUSK ANTIBODY 0.00 nmol/L Normal 0.00-0.02 [facility] Comment on above: Order Comment: Jet otto Type: BLOOD SPECIMEN Ordering Facility: [facility] Address: [address] [place] [id number] Result Comment: ADDITIONAL INFORMATION This test was developed using an analyte specific reagent. Its performance characteristics were determined by [facility] in a manner consistent with CLIA requirements. This test has not been cleared or approved by the U.S. Food and Drug Administration. Test Performed by: [facility] [place] [id number] Cookie Padder: Roberth Domniguez M.D. Ph.D.; CLIA# [id number] Performed By: #### M USK #### [facility] CLIA [id number] [address] [place], [place] [id number] Methylmalonate SerPl-sCncon 05-07-2022 Methylmalonate [Moles/Vol] 213 nmol/L Normal 79-376 [facility] Comment on above: Order Comment: Jet otto Type: BLOOD SPECIMEN Ordering Facility: [facility] Address: [address] [place] [id number] Result Comment: This test was developed and its performance characteristics determined by [facility] [place] ([facility]). It has not been cleared or approved by the FDA. [facility] is regulated under CLIA as qualified to perform high-complexity testing. This test is used for clinical purposes. It should not be regarded as investigational or for research. Performed By: #### 1 3964-2 #### [facility] CLIA [id number] [address] [place] [address] [place] TSH BLDon 05-07-2022 TSH Qn 2.110 m[IU]/L 0.270 - 4.200 mIU/L [facility] TSH SerPl-aCncon 05-07-2022 TSH Qn 2.110 m[IU]/L Normal 0.270-4.200 [facility] Comment on above: Order Comment: Speci men Type: BLOOD SPECIMEN Ordering Facility: [facility] Address: [address] [place] [address] Performed By: #### 3 016-3 #### [facility] CLIA [id number] [place] [address] [place] VITAMIN B12 BLOODon 05-07-20 22 Cobalamin (Vitamin B12) [Mass/Vol] 783 pg/mL 232 - 1,245 pg/mL [facility] Vit B12 SerPl-mCncon 022 Cobalamin (Vitamin B12) [Mass/Vol] 783 pg/mL Normal 232-1245 [facility] Comment on above: Order Comment: Speci men Type: BLOOD SPECIMEN Ordering Facility: [facility] Address: [address] [place] [address] Performed By: #### 2 132-9 #### [facility] [place] [id number] [place] [id number] [place] ALDOLASEon 05-02-2022 Aldolase 5.7 U/L Normal 3.3-10.3 [facility] Comment on above: Performed By: #### A LDOLAS #### [facility] [address] [place] [address] Dr. Reema Harvey LIPASEon 05-01-2022 Lipase [Catalytic activity/Vol] 211.0 U/L Normal 73.0-393.0 [facility] Comment on above: Performed By: #### C MP #### [facility] [address] [place] [address] Dr. Reema Harvey XR CSPINE MIN 4 VIEWSon 01-10 XR CSPINE MIN 4 VIEWS EXAMINATION: XR CS PINE MIN 4 VIEWS HISTORY: Neck pain , left arm pain and numbness COMPARISON: No relevant comparison available. FINDINGS: BONES: Fusion of C4 and C5 vertebral bodies via anterior plate and screws; no appreciable hardware fracture or loosening. Moderate degenerative facet arthropathy at all cervical levels with bone encroachment most notable on the C3-C4, C4-C5 neural foramen bilaterally. DISC SPACES: Intervertebral disc spacer at C4-C5. Moderate or greater narrowing suspected at C5-C6 and C6-C7. PARASPINOUS: Negative. No paraspinous abnormality is seen. OTHER: Negative. IMPRESSION: 1. Mechanical fusion and intervertebral disc spacer at C4-C5. No evidence of hardware failure. 2. Multilevel marked degenerative changes and suspected moderate or greater foraminal narrowing. Electronically authenticated by: KYRA URBANO Date: 2022-02-01 16:30 Normal [facility] CBC AUTO DIFFon 11-21-2021 BASO # 0.1 103/ul Normal 0.0-0.1 [facility] Comment on above: Performed By: #### C BC #### [facility] [address] [place] [address] Dr. Reema Harvey Basophils/100 WBC (Bld) 1.3 % Normal 0.2-2.0 [facility] Comment on above: Performed By: #### C BC #### [facility] [address] [place] [address] Dr. Reema Harvey EO # 0.3 103/ul Normal 0.0-0.7 [facility] Comment on above: Performed By: #### C BC #### [facility] [address] [place] [address] Dr. Reema Harvey Eosinophils/100 WBC (Bld) 5.6 % Normal 0.9-7.0 [facility] Comment on above: Performed By: #### C BC #### [facility] [address] [place] [address] Dr. Reema Harvey Erythrocyte distribution width (RBC) [Ratio] 13.6 % Normal 11.0-15.0 [facility] Comment on above: Performed By: #### C BC #### [facility] [address] [place] [address] Dr. Reema Harvey Hematocrit (Bld) [Volume fraction] 39.6 % Normal 36.0-48.0 [facility] Comment on above: Performed By: #### C BC #### [facility] [address] [place] [address] Dr. Reema Harvey Hemoglobin (Bld) [Mass/Vol] 13.6 g/dL Normal 12.0-16.0 [facility] Comment on above: Performed By: #### C BC #### [facility] [address] [place] [address] Dr. Reema Harvey IG # 0.03 10e3/ul Normal 0.00-0.03 [facility] Comment on above: Performed By: #### C BC #### [facility] [address] [place] [address] Dr. Reema Harvey IG % 0.7 % Critically high 0.0-0.5 [facility] Comment on above: Performed By: #### C BC #### [facility] [address] [place] [address] Dr. Reema Harvey LYMPH # 1.5 103/ul Normal 1.2-3.8 [facility] Comment on above: Performed By: #### C BC #### [facility] [address] [place] [address] Dr. Reema Harvey Lymphocytes/100 WBC (Bld) 34.5 % Normal 20.5-60.0 [facility] Comment on above: Performed By: #### C BC #### [facility] [address] [place] [address] Dr. Reema Harvey MANUAL DIFF REQ NO Normal [facility] Comment on above: Performed By: #### C BC #### [facility] [address] [place] [address] Dr. Reema Harvey MCH (RBC) [Entitic mass] 31.0 pg Normal 26.7-34.0 [facility] Comment on above: Performed By: #### C BC #### [facility] [address] [place] [address] Dr. Reema Harvey MCHC (RBC) [Mass/Vol] 34.3 g/dL Normal 29.9-35.2 [facility] Comment on above: Performed By: #### C BC #### [facility] [address] [place] [address] Dr. Reema Harvey MCV (RBC) [Entitic vol] 90.2 fL Normal 81.0-99.0 [facility] Comment on above: Performed By: #### C BC #### [facility] [address] [place] [address] Dr. Reema Harvey MONO # 0.5 103/ul Normal 0.3-0.8 [facility] Comment on above: Performed By: #### C BC #### [facility] [address] [place] [address] Dr. Reema Harvey Monocytes/100 WBC (Bld) 11.4 % Normal 1.7-12.0 [facility] Comment on above: Performed By: #### C BC #### [facility] [address] [place] [address] Dr. Reema Harvey NEUT # 2.1 103/ul Normal 1.4-6.5 [facility] Comment on above: Performed By: #### C BC #### [facility] [address] [place] [address] Dr. Reema Harvey Neutrophils/100 WBC (Bld) 46.5 % Normal 43.0-75.0 [facility] Comment on above: Performed By: #### C BC #### [facility] [address] [place] [address] Dr. Reema Harvey Platelet mean volume (Bld) [Entitic vol] 10.4 fL Normal 9.5-13.5 [facility] Comment on above: Performed By: #### C BC #### [facility] [address] [place] [address] Dr. Reema Harvey PLT 275 103/ul Normal 150-450 [facility] Comment on above: Performed By: #### C BC #### [facility] [address] [place] [address] Dr. Reema Harvey RBC 4.39 106/ul Normal 4.20-5.40 [facility] Comment on above: Performed By: #### C BC #### [facility] [address] [place] [address] Dr. Reema Harvey WBC 4.5 103/ul Normal 4.0-11.0 [facility] Comment on above: Performed By: #### C BC #### [facility] [address] [place] [address] Dr. Reema Harvey FREE T3on 11-21-2021 FREE T3 3.00 pg/mlL Normal 2.77-5.27 [facility] Comment on above: Performed By: #### C MP #### [facility] [address] [place] [address] Dr. Reema Harvey FREE T4on 11-21-2021 Free T4 [Mass/Vol] 0.94 ng/dL Normal 0.78-2.19 [facility] Comment on above: Performed By: #### F T4 #### [facility] [address] [place] [address] Dr. Reema Harvey PROF 14(COMP METB)on 022 Albumin [Mass/Vol] 3.9 g/dL Normal 3.4-5.0 [facility] Comment on above: Performed By: #### C MP #### [facility] [address] [place] [address] Dr. Reema Harvey Albumin/Globulin [Mass ratio] 0.8 {ratio} Normal [facility] Comment on above: Performed By: #### C MP #### [facility] [address] [place] [address] Dr. Reema Harvey ALP [Catalytic activity/Vol] 93 U/L Normal 46-116 [facility] Comment on above: Performed By: #### C MP #### [facility] [address] [place] [address] Dr. Reema Harvey ALT [Catalytic activity/Vol] 30 U/L Normal 14-59 [facility] Comment on above: Performed By: #### C MP #### [facility] [address] [place] [address] Dr. Reema Harvey Anion gap [Moles/Vol] 15.8 mmol/L Normal [facility] Comment on above: Performed By: #### C MP #### [facility] [address] [place] [address] Dr. Reema Harvey AST [Catalytic activity/Vol] 30 U/L Normal 15-37 [facility] Comment on above: Performed By: #### C MP #### [facility] [address] [place] [address] [address] Reema Harvey Bilirubin [Mass/Vol] 0.2 mg/dL Normal 0.2-1.3 [facility] Comment on above: Performed By: #### C MP #### [facility] [address] [place] [address] [address] Reema Harvey Calcium [Mass/Vol] 9.2 mg/dL Normal 8.5-10.1 [facility] Comment on above: Performed By: #### C MP #### [facility] [address] [place] [address] [address] Reema Harvey Chloride [Moles/Vol] 102 mmol/L Normal 98-107 [facility] Comment on above: Performed By: #### C MP #### [facility] [address] [place] [address] Dr. Reema Harvey CO2 [Moles/Vol] 22.3 mmol/L Normal 22.0-30.0 [facility] Comment on above: Performed By: #### C MP #### [facility] [address] [place] [address] Dr. Reema Harvey Creatinine [Mass/Vol] 0.87 mg/dL Normal 0.52-1.04 [facility] Comment on above: Performed By: #### C MP #### [facility] [address] [place] [address] Dr. Reema Harvey EGFR-AF CAMEROONIAN >60 Normal >=60 [facility] Comment on above: Performed By: #### C MP #### [facility] [address] [place] [address] Dr. Reema Harvey EGFR-NON AF CAMEROONIAN >60 Normal >=60 [facility] Comment on above: Performed By: #### C MP #### [facility] [address] [place] [address] Dr. Reema Harvey Globulin (S) [Mass/Vol] 4.7 g/dL Normal T [facility] Comment on above: Performed By: #### C MP #### [facility] [address] [place], [place] [id number] Dr. Reema Harvey Glucose [Mass/Vol] 106 mg/dL Normal 74-106 [facility] Comment on above: Performed By: #### C MP #### [facility] [address] [place] [address] [address] Reema Harvey Potassium [Moles/Vol] 4.1 mmol/L Normal 3.4-5.0 [facility] Comment on above: Performed By: #### C MP #### [facility] [address] [place] [address] [address] Reema Harvey Protein [Mass/Vol] 8.6 g/dL Critically high 6.1-8.2 [facility] Comment on above: Performed By: #### C MP #### [facility] [address] [place] [address] Dr. Reema Harvey Sodium [Moles/Vol] 136 mmol/L Critically low 137-145 [facility] Comment on above: Performed By: #### C MP #### [facility] [address] [place] [address] Dr. Reema Harvey Urea nitrogen [Mass/Vol] 10.0 mg/dL Normal 7.0-18.0 [facility] Comment on above: Performed By: #### C MP #### [facility] [address] [place] [address] Dr. Reema Harvey Urea nitrogen/Creatinine [Mass ratio] 11.5 mg/mg Normal [facility] Comment on above: Performed By: #### C MP #### [facility] [address] [place] [address] Dr. Reema Harvey TSHon 11-21-2021 TSH 1.364 uIU/mL Normal 0.470-4.680 [facility] Comment on above: Performed By: #### C MP #### [facility] [address] [place] [address] Dr. Reema Harvey TSH RANGE SEE BELOW Normal [facility] Comment on above: Result Comment: <0.3 4 UIU/ml HYPERTHYROID 0.34-5.60 UIU/ml EUTHYROID >5.60 UIU/ml HYPOTHYROID Performed By: #### C #### [facility] [address] [place] [address] [address] Reema Harvey MRI BRAIN WO CONon 2 MRI BRAIN WO CON MRI BRAIN WITHOUT CONTRAST; 10/02/2021 1:42 PM EST Clinical History:Chronic headache disorder Comparison: None available . SEQUENCES: Per routine unenhanced protocol. STUDY QUALITY: Good On this unenhanced examination, there is no distinct evidence of intra-axial mass. There is no midline shift. There is no evidence of acute infarction. No restricted diffusion. No unexpected paramagnetic substance deposition. Minimal T2 and FLAIR hyperintense supratentorial foci are likely simply age related VESSELS: Signal voids are present in the major intracranial blood vessels BRAIN VOLUME: Normal VENTRICLES: No hydrocephalus ORBITS: Symmetric. No acute finding. SELLA/ SUPRASELLAR: Sella is mildly expanded and is partially empty. Thin rind of pituitary tissue inferiorly measures a little greater than 2 mm in maximum z-axis. CP ANGLES: No acute finding at relatively thick sections UPPER CERVICAL: Some artifact from neurosurgical hardware at C4 PARANASAL SINUSES: Fairly mild mucosal thickening inferior aspects right maxillary antrum. No air-fluid levels in the sinuses. MASTOIDS: Slight patchy fluid signal within aspects of the mastoids is nonspecific. Included aspects nasopharyngeal air column are grossly unremarkable CALVARIUM: No acute finding. OTHER: None IMPRESSION: 1. No acute intra-axial process. 2. Sella is partially empty as described. Clinical correlation regarding significance is needed. Sometimes, a partially empty sella can be indicative of elevated intracranial pressure. Given clinical history, is there clinical suspicion for idiopathic intracranial hypertension? Electronically authenticated by: CHETNA ORTIZ Date: 2021-10-02 16:40 Normal [facility] XR FOREIGN BODY EYEon 2021 XR FOREIGN BODY EYE EXAMINATION: XR FORE IGN BODY EYE HISTORY: Foreign body in eye ; history of stent placement for glaucoma COMPARISON: No relevant comparison available. FINDINGS: ORBITS: Negative for a metallic foreign body. OTHER: Negative. IMPRESSION: 1. No metallic foreign body within the orbits. Electronically authenticated by: KYRA URBANO Date: 2021-10-02 14:10 Normal [facility] Vital Signs Date Time Vital Sign Value Performing Clinician Facility 03-03-2025 14:50-0400 Body height 152.4 cm Services [facility] Work Phone: [facility] 03-03-2025 14:50-0400 Body mass index (BMI) [Ratio] 42.5 kg/m2 Services [facility] Work Phone: [facility] 03-03-2025 14:50-0400 Body weight 98.9 kg Services [facility] Work Phone: [facility] 02-23-2025 12:48-0400 Body mass index (BMI) [Ratio] 42.02 kg/m2 Austin Gordillo MD Work Phone: [facility] 02-23-2025 12:48-0400 Body temperature 98.2 [degF] Austin Gordillo MD Work Phone: [facility] 02-23-2025 12:48-0400 Body weight 97.6 kg Austin Gordillo MD Work Phone: [facility] 02-23-2025 12:48-0400 Diastolic blood pressure 87 mm[Hg] Austin Gordillo MD Work Phone: [facility] 02-23-2025 12:48-0400 Heart rate 75 /min Austin Gordillo MD Work Phone: [facility] 02-23-2025 12:48-0400 Respiratory rate 16 /min Austin Gordillo MD Work Phone: [facility] 02-23-2025 12:48-0400 SaO2% (BldA) [Mass fraction] 98 % Austin Gordillo MD Work Phone: [facility] 02-23-2025 12:48-0400 Systolic blood pressure 145 mm[Hg] Austin Gordillo MD Work Phone: [facility] 12-17-2024 14:12-0400 Body mass index (BMI) [Ratio] 41.21 kg/m2 Geoffrey Guardado MD Work Phone: [facility] 12-17-2024 14:12-0400 Body temperature 97.5 [degF] Geoffrey Guardado MD Work Phone: [facility] 12-17-2024 14:12-0400 Body weight 95.71 kg Geoffrey Guardado MD Work Phone: [facility] 12-17-2024 14:12-0400 Diastolic blood pressure 81 mm[Hg] Geoffrey Guardado MD Work Phone: [facility] 12-17-2024 14:12-0400 Heart rate 62 /min Geoffrey Guardado MD Work Phone: [facility] 12-17-2024 14:12-0400 Respiratory rate 18 /min Geoffrey Guardado MD Work Phone: [facility] 12-17-2024 14:12-0400 SaO2% (BldA) [Mass fraction] 97 % Geoffrey Guardado MD Work Phone: [facility] 12-17-2024 14:12-0400 Systolic blood pressure 135 mm[Hg] Geoffrey Guardado MD Work Phone: [facility] 12-09-2024 09:10-0400 Diastolic blood pressure 61 mm[Hg] Soy Reyes Jr. , DO Work Phone: [facility] 12-09-2024 09:10-0400 Heart rate 87 /min Soy Reyes Jr., DO Work Phone: [facility] 12-09-2024 09:10-0400 Respiratory rate 18 /min Soy Reyes Jr., DO Work Phone: [facility] 12-09-2024 09:10-0400 SaO2% (BldA) [Mass fraction] 95 % Soy Reyes Jr., DO Work Phone: [facility] 12-09-2024 09:10-0400 Systolic blood pressure 135 mm[Hg] Soy Reyes Jr., DO Work Phone: [facility] 12-09-2024 08:02-0400 Body height 152.4 cm Soy Reyes Jr., DO Work Phone: [facility] 12-09-2024 08:02-0400 Body mass index (BMI) [Ratio] 40.43 kg/m2 Soy Lenarturo Torres., DO Work Phone: [facility] 12-09-2024 08:02-0400 Body temperature 97.7 [degF] Soy Reyes Jr., DO Work Phone: [facility] 12-09-2024 08:02-0400 Body weight 93.89 kg Soy Reyes ., DO Work Phone: [facility] 11-22-2024 12:45-0400 Body mass index (BMI) [Ratio] 40.18 kg/m2 [employer] SUPERVISOR Work Phone: [facility] 11-22-2024 12:45-0400 Body temperature 98.2 [degF] Gabi [employer] W[employer]HOUSE MANAGER.[employer] AND FINAL ASSEMBLY SUPERVISOR Work Phone: [facility] 11-22-2024 12:45-0400 Body weight 93.8 kg [employer] W[employer]HOUSE MANAGER.[employer] AND FINAL ASSEMBLY SUPERVISOR Work Phone: [facility] 11-22-2024 12:45-0400 Diastolic blood pressure 71 mm[Hg] [employer] W[employer]HOUSE MANAGER.[employer] AND FINAL ASSEMBLY SUPERVISOR Work Phone: [facility] 11-22-2024 12:45-0400 Heart rate 72 /min [employer]ION W[employer]HOUSE MANAGER.PACKING AND FINAL ASSEMBLY SUPERVISOR Work Phone: [facility] 11-22-2024 12:45-0400 Respiratory rate 16 /min [employer] W[employer]HOUSE [employer]NAGER.[employer]ING AND FINAL ASSEMBLY SUPERVISOR Work Phone: [facility] 11-22-2024 12:45-0400 SaO2% (BldA) [Mass fraction] 97 % [employer] W[employer]HOUSE [employer]NAGER.[employer] AND FINAL ASSEMBLY SUPERVISOR Work Phone: [facility] 11-22-2024 12:45-0400 Systolic blood pressure 144 mm[Hg] [employer] W[employer]HOUSE MANAGER.[employer] AND FINAL ASSEMBLY SUPERVISOR Work Phone: [facility] 11-22-2024 09:24-0400 Body temperature 98.8 [degF] Ruddy Santana MD Work Phone: [facility] 10-27-2024 10:58-0400 Body height 152.8 cm Eugene Del Castillo MD Work Phone: [facility] 10-27-2024 10:58-0400 Body mass index (BMI) [Ratio] 39.4 kg/m2 Eugene Del Castillo MD Work Phone: [facility] 10-27-2024 10:58-0400 Body temperature 98.8 [degF] Eugene Del Castillo MD Work Phone: [facility] 10-27-2024 10:58-0400 Body weight 92 kg Eugene Del Castillo MD Work Phone: [facility] 10-27-2024 10:58-0400 Diastolic blood pressure 73 mm[Hg] Eugene Del Castillo MD Work Phone: [facility] 10-27-2024 10:58-0400 Heart rate 73 /min Eugene Del Castillo MD Work Phone: [facility] 10-27-2024 10:58-0400 Systolic blood pressure 128 mm[Hg] Eugene Del Castillo MD Work Phone: [facility] 10-26-2024 15:03-0400 Body mass index (BMI) [Ratio] 38.84 kg/m2 [employer]SE [employer]GER.[employer]AL [employer]SEMBLY SUPERVISOR Work Phone: [facility] 10-26-2024 15:03-0400 Body temperature 98.4 [degF] [employer] W[employer]HOUSE MANAGER.[employer] AND FINAL ASSEMBLY SUPERVISOR Work Phone: [facility] 10-26-2024 15:03-0400 Body weight 90.2 kg [employer] W[employer]HOUSE MANAGER.[employer]ING AND FINAL ASSEMBLY SUPERVISOR Work Phone: [facility] 10-26-2024 15:03-0400 Diastolic blood pressure 71 mm[Hg] [employer] W[employer]HOUSE MANAGER.[employer]ING AND FINAL ASSEMBLY SUPERVISOR Work Phone: [facility] 10-26-2024 15:03-0400 Heart rate 75 /min [employer] W[employer]HOUSE MANAGER.[employer]ING AND FINAL ASSEMBLY SUPERVISOR Work Phone: [facility] 10-26-2024 15:03-0400 Respiratory rate 16 /min [employer] W[employer]HOUSE MANAGER.[employer]ING AND FINAL ASSEMBLY SUPERVISOR Work Phone: [facility] 10-26-2024 15:03-0400 SaO2% (BldA) [Mass fraction] 96 % [employer]HOUSE MANAGER.[employer] AND FINAL ASSEMBLY SUPERVISOR Work Phone: [facility] 10-26-2024 15:03-0400 Systolic blood pressure 125 mm[Hg] [employer] W[employer]HOUSE MANAGER.[employer]ING AND FINAL ASSEMBLY SUPERVISOR Work Phone: [facility] 10-26-2024 14:43-0400 Body mass index (BMI) [Ratio] 38.84 kg/m2 Pulm 3 [facility] 10-26-2024 14:43-0400 Body weight 90.2 kg Pul 3 [facility] 10-26-2024 11:59-0400 Body temperature 98.01 [degF] Josephine Rosas PA-C Work Phone: [facility] 09-04-2024 12:01-0500 SaO2% (BldA) [Mass fraction] 95 % EVONNE PATADIA [facility] Comment on above: Order Comment: Specimen Type: ARTERIAL B LOOD SPECIMENOrdering Facility: [facility] Address: [address] [place] [address] Performed By: #### A LLBG ####[facility] [id number] [address] 09-04-2024 08:06-0500 SaO2% (BldA) [Mass fraction] 98 % EVONNE PATADIA [facility] Comment on above: Order Comment: Specimen Type: ARTERIAL B LOOD SPECIMENOrdering Facility: [facility] Address: [address] [place] [address] Performed By: #### A LLBG ####[facility] [id number] [address] [facility] 09-04-2024 06:31-0500 SaO2% (BldA) [Mass fraction] 99 % EVONNE PATADIA [facility] Comment on above: Order Comment: Specimen Type: ARTERIAL B LOOD SPECIMENOrdering Facility: [facility] Address: [address] [place], [place] [id number] Performed By: #### A LLBG ####[facility] [id number] [address] [address] [place] 09-04-2024 04:27-0500 SaO2% (BldA) [Mass fraction] 99 % EVONNE PATADIA [facility] Comment on above: Order Comment: Specimen Type: ARTERIAL B LOOD SPECIMENOrdering Facility: [facility] Address: [address] [place], [place] [id number] Performed By: #### A LLBG ####[facility] LABCLIA [id number] [address] [address] [place] 09-03-2024 23:23-0500 SaO2% (BldA) [Mass fraction] 97 % EVONNE PATADIA [facility] Comment on above: Order Comment: Specimen Type: ARTERIAL B LOOD SPECIMENOrdering Facility: [facility] Address: [address] [place], [place] [id number] Performed By: #### A LLBG ####[facility] LABCLIA [id number] [address] [address] [place] 09-03-2024 19:54-0500 SaO2% (BldA) [Mass fraction] 97 % EVONNE PATADIA [facility] Comment on above: Order Comment: Specimen Type: ARTERIAL B LOOD SPECIMENOrdering Facility: [facility] Address: [address] [place] [address] Performed By: #### A LLBG ####[facility] LABCLIA [id number] [address] [address] [place] 09-03-2024 16:13-0500 SaO2% (BldA) [Mass fraction] 94 % EVONNE PATADIA [facility] Comment on above: Order Comment: Specimen Type: ARTERIAL B LOOD SPECIMENOrdering Facility: [facility] Address: [address] [id number] Performed By: #### A LLBG ####[facility] LABIA [id number] [address] [id number] [place] 09-03-2024 12:31-0500 SaO2% (BldA) [Mass fraction] 98 % EVONNE PATADIA [facility] Comment on above: Order Comment: Specimen Type: ARTERIAL B LOOD SPECIMENOrdering Facility: [facility] Address: [address] [place], [place] [id number] Performed By: #### A LLBG ####[facility] LABIA [id number] [place] [id number] [place] 09-03-2024 07:56-0500 SaO2% (BldA) [Mass fraction] 96 % EVONNE PATADIA [facility] Comment on above: Order Comment: Specimen Type: ARTERIAL B LOOD SPECIMENOrdering Facility: [facility] Address: [address] [place] [address] Performed By: #### A LLBG ####[facility]AL[facility] [id number] [place] [id number] [place] 09-03-2024 03:59-0500 SaO2% (BldA) [Mass fraction] 96 % EVONNE PATADIA [facility] Comment on above: Order Comment: Specimen Type: ARTERIAL B LOOD SPECIMENOrdering Facility: [facility] Address: [address] [place], [place] [id number] Performed By: #### A LLBG ####[facility] LABIA [id number] [place] [id number] [place] 09-02-2024 23:13-0500 SaO2% (BldA) [Mass fraction] 99 % EVONNE PATADIA [facility] Comment on above: Order Comment: Specimen Type: ARTERIAL B LOOD SPECIMENOrdering Facility: [facility] Address: [address] [id number] Performed By: #### A LLBG ####[facility] LABIA [id number] [address] [place] [id number] [place] 09-02-2024 19:47-0500 SaO2% (BldA) [Mass fraction] 98 % EVONNE PATADIA [facility] Comment on above: Order Comment: Specimen Type: ARTERIAL B LOOD SPECIMENOrdering Facility: [facility] Address: [address] [place] [address] Performed By: #### A LLBG ####[facility] LABIA [id number] [address] [place] 09-02-2024 16:10-0500 SaO2% (BldA) [Mass fraction] 95 % EVONNE PATADIA [facility] Comment on above: Order Comment: Specimen Type: ARTERIAL B LOOD SPECIMENOrdering Facility: [facility] Address: [address] [place] [address] Performed By: #### A LLBG ####[facility] LABIA [id number] [address] [place] 09-02-2024 11:50-0500 SaO2% (BldA) [Mass fraction] 93 % EVONNE PATADIA [facility] Comment on above: Order Comment: Specimen Type: ARTERIAL B LOOD SPECIMENOrdering Facility: [facility] Address: [address] [place] [address] Performed By: #### A LLBG ####[facility] LABIA [id number] [address] [place] [id number] [place] 09-02-2024 08:16-0500 SaO2% (BldA) [Mass fraction] 98 % EVONNE PATADIA [facility] Comment on above: Order Comment: Specimen Type: ARTERIAL B LOOD SPECIMENOrdering Facility: [facility] Address: [address] [place] [address] Performed By: #### A LLBG ####[facility] LABCLIA [id number] [address] [place] [id number] [facility] 09-02-2024 03:41-0500 SaO2% (BldA) [Mass fraction] 96 % EVONNE PATADIA [facility] Comment on above: Order Comment: Specimen Type: ARTERIAL B LOOD SPECIMENOrdering Facility: [facility] Address: [address] [place] [address] Performed By: #### A LLBG ####[facility] LABCLIA [id number] [address] [id number] [place] 09-01-2024 23:26-0500 SaO2% (BldA) [Mass fraction] 99 % EVONNE PATADIA [facility] Comment on above: Order Comment: Specimen Type: ARTERIAL B LOOD SPECIMENOrdering Facility: [facility] Address: [address] [place] [address] Performed By: #### A LLBG ####[facility] LABCLIA [id number] [address] [place] [id number] [place] 09-01-2024 19:47-0500 SaO2% (BldA) [Mass fraction] 98 % EVONNE PATADIA [facility] Comment on above: Order Comment: Specimen Type: ARTERIAL B LOOD SPECIMENOrdering Facility: [facility] Address: [address] [place] [address] Performed By: #### A LLBG ####[facility] LABCLIA [id number] [address] [place] [id number] [place] 09-01-2024 16:28-0500 SaO2% (BldA) [Mass fraction] 93 % EVONNE PATADIA [facility] Comment on above: Order Comment: Specimen Type: ARTERIAL B LOOD SPECIMENOrdering Facility: [facility] Address: [address] [place] [address] Performed By: #### A LLBG ####[facility] LABCLIA [id number] [place] [address] [place] 09-01-2024 14:19-0500 SaO2% (BldA) [Mass fraction] 98 % [facility]NE [facility] Comment on above: Order Comment: Specimen Type: ARTERIAL B LOOD SPECIMENOrdering Facility: [facility] Address: [address] [place] [address] Performed By: #### A LLBG ####[facility] LABCLIA [id number] [address] [place] 09-01-2024 12:07-0500 SaO2% (BldA) [Mass fraction] 97 % [facility] Comment on above: Order Comment: Specimen Type: ARTERIAL B LOOD SPECIMENOrdering Facility: [facility] Address: [address] [place] [address] Performed By: #### A LLBG ####[facility] LABCLIA [id number] [address] [place] 09-01-2024 08:10-0500 Diastolic blood pressure 93 mm[Hg] [facility] Work Phone: [facility] 09-01-2024 08:10-0500 Heart rate 96 /min Services [facility] Work Phone: [facility] 09-01-2024 08:10-0500 Inhaled oxygen concentration 50 % [facility] Work Phone: [facility] 09-01-2024 08:10-0500 Inhaled oxygen flow rate 40 L/min [facility] Work Phone: [facility] 09-01-2024 08:10-0500 Respiratory rate 24 /min [facility] Work Phone: [facility] 09-01-2024 08:10-0500 SaO2% (BldA) [Mass fraction] 98 % [facility] Work Phone: [facility] 09-01-2024 08:10-0500 Systolic blood pressure 146 mm[Hg] [facility] Work Phone: [facility] 09-01-2024 02:47-0500 Body height 152.4 cm [facility] Work Phone: [facility] 09-01-2024 02:47-0500 Body weight 83.8 kg [facility] Work Phone: [facility] 09-01-2024 02:34-0500 Body temperature 98.3 [degF] [facility] Work Phone: [facility] 08-16-2024 16:24-0500 Heart rate 79 /min [facility] Work Phone: [facility] 08-16-2024 16:24-0500 Respiratory rate 20 /min [facility] Work Phone: [facility] 08-16-2024 16:00-0500 Diastolic blood pressure 81 mm[Hg] [facility] Work Phone: [facility] 08-16-2024 16:00-0500 Inhaled oxygen flow rate 1 L/min [facility] Work Phone: [facility] 08-16-2024 16:00-0500 SaO2% (BldA) [Mass fraction] 92 % [facility] Work Phone: [facility] 08-16-2024 16:00-0500 Systolic blood pressure 134 mm[Hg] [facility] Work Phone: [facility] 08-16-2024 08:00-0500 Body temperature 98.3 [degF] [facility] Work Phone: [facility] 08-16-2024 05:52-0500 Body weight 87.9 kg [facility] Work Phone: [facility] 08-14-2024 12:06-0500 Body height 157.48 cm [facility] Work Phone: [facility] 08-14-2024 08:20-0500 Inhaled oxygen concentration 55 % [facility] Work Phone: [facility] 08-14-2024 00:16-0500 Diastolic blood pressure 73 mm[Hg] [facility] Work Phone: [facility] 08-14-2024 00:16-0500 Heart rate 79 /min [facility] Work Phone: [facility] 08-14-2024 00:16-0500 Inhaled oxygen flow rate 35 L/min [facility] Work Phone: [facility] 08-14-2024 00:16-0500 Respiratory rate 20 /min [facility] Work Phone: [facility] 08-14-2024 00:16-0500 SaO2% (BldA) [Mass fraction] 95 % [facility] Work Phone: [facility] 08-14-2024 00:16-0500 Systolic blood pressure 134 mm[Hg] [facility] Work Phone: [facility] 08-14-2024 00:03-0500 Inhaled oxygen concentration 55 % [facility] Work Phone: [facility] 08-13-2024 19:37-0500 Body temperature 98.6 [degF] [facility] Work Phone: [facility] 08-13-2024 19:30-0500 Body height 157.48 cm [facility] Work Phone: [facility] 08-13-2024 19:30-0500 Body weight 90.4 kg [facility] Work Phone: [facility] 08-13-2024 07:00-0500 Diastolic blood pressure 82 mm[Hg] [facility] Work Phone: [facility] 08-13-2024 07:00-0500 Heart rate 95 /min [facility] Work Phone: [facility] 08-13-2024 07:00-0500 Inhaled oxygen flow rate 5 L/min [facility] Work Phone: [facility] 08-13-2024 07:00-0500 SaO2% (BldA) [Mass fraction] 98 % [facility] Work Phone: [facility] 08-13-2024 07:00-0500 Systolic blood pressure 141 mm[Hg] [facility] Work Phone: [facility] 08-13-2024 01:12-0500 Inhaled oxygen concentration 50 % [facility] Work Phone: [facility] 08-12-2024 22:29-0500 Body temperature 99.9 [degF] [facility] Work Phone: [facility] 08-12-2024 22:27-0500 Body height 152.4 cm [facility] Work Phone: [facility] 08-12-2024 22:27-0500 Body weight 86.18 kg [facility] Work Phone: [facility] 07-23-2024 09:02-0500 Body temperature 97.8 [degF] [facility] Work Phone: [facility] 07-23-2024 09:02-0500 Diastolic blood pressure 79 mm[Hg] [facility] Work Phone: [facility] 07-23-2024 09:02-0500 Heart rate 89 /min [facility] Work Phone: [facility] 07-23-2024 09:02-0500 Inhaled oxygen flow rate 5 L/min [facility] Work Phone: [facility] 07-23-2024 09:02-0500 Respiratory rate 15 /min [facility] Work Phone: [facility] 07-23-2024 09:02-0500 SaO2% (BldA) [Mass fraction] 97 % [facility] Work Phone: [facility] 07-23-2024 09:02-0500 Systolic blood pressure 118 mm[Hg] Services [facility] Work Phone: [facility] 07-23-2024 07:10-0500 Body weight 89 kg Services [facility] Work Phone: [facility] 07-23-2024 00:22-0500 Inhaled oxygen concentration 40 % Services [facility] Work Phone: [facility] 07-21-2024 15:21-0500 Body height 152.4 cm Services [facility] Work Phone: [facility] 06-30-2024 09:46-0500 Body mass index (BMI) [Ratio] 39.18 kg/m2 Austin Gordillo MD Work Phone: [facility] 06-30-2024 09:46-0500 Body temperature 99.1 [degF] Austin Gordillo MD Work Phone: [facility] 06-30-2024 09:46-0500 Body weight 91 kg Austin Gordillo MD Work Phone: [facility] 06-30-2024 09:46-0500 Diastolic blood pressure 84 mm[Hg] Austin Gordillo MD Work Phone: [facility] 06-30-2024 09:46-0500 Heart rate 89 /min Austin Gordillo MD Work Phone: [facility] 06-30-2024 09:46-0500 Respiratory rate 22 /min Austin Gordillo MD Work Phone: [facility] 06-30-2024 09:46-0500 SaO2% (BldA) [Mass fraction] 91 % Austin Gordillo MD Work Phone: [facility] 06-30-2024 09:46-0500 Systolic blood pressure 149 mm[Hg] Austin Gordillo MD Work Phone: [facility] 06-01-2024 20:28-0400 Diastolic blood pressure 70 mm[Hg] [facility] 06-01-2024 20:28-0400 Heart rate 80 /min [facility] 06-01-2024 20:28-0400 Respiratory rate 22 /min [facility] 06-01-2024 20:28-0400 SaO2% (BldA) [Mass fraction] 97 % [facility] 06-01-2024 20:28-0400 Systolic blood pressure 144 mm[Hg] [facility] 06-01-2024 17:14-0400 Body temperature 98.1 [degF] [facility] 06-01-2024 15:24-0400 Body height 152.4 cm [facility] 06-01-2024 15:24-0400 Body weight 91.8 kg [facility] 06-01-2024 14:11-0400 Body height 152.4 cm [facility] 06-01-2024 14:11-0400 Body mass index (BMI) [Ratio] 39.4 kg/m2 [facility] 06-01-2024 14:11-0400 Body weight 91.62 kg [facility] 06-01-2024 14:11-0400 Diastolic blood pressure 88 mm[Hg] [facility] 06-01-2024 14:11-0400 Heart rate 75 /min [facility] 06-01-2024 14:11-0400 Respiratory rate 24 /min [facility] 06-01-2024 14:11-0400 SaO2% (BldA) [Mass fraction] 93 % [facility] 06-01-2024 14:11-0400 Systolic blood pressure 164 mm[Hg] [facility] 06-01-2024 11:22-0400 Body height 152.4 cm [facility] 06-01-2024 11:22-0400 Body mass index (BMI) [Ratio] 39.4 kg/m2 [facility] 06-01-2024 11:22-0400 Body temperature 100.2 [degF] [facility] 06-01-2024 11:22-0400 Body weight 91.73 kg [facility] 06-01-2024 11:22-0400 Diastolic blood pressure 84 mm[Hg] [facility] 06-01-2024 11:22-0400 Heart rate 81 /min [facility] 06-01-2024 11:22-0400 Respiratory rate 20 /min [facility] 06-01-2024 11:22-0400 SaO2% (BldA) [Mass fraction] 95 % [facility] 06-01-2024 11:22-0400 Systolic blood pressure 126 mm[Hg] [facility] 05-21-2024 19:45-0400 Heart rate 74 /min [facility] Work Phone: [facility] 05-21-2024 19:45-0400 Respiratory rate 22 /min [facility] Work Phone: [facility] 05-21-2024 18:45-0400 Diastolic blood pressure 88 mm[Hg] [facility] Work Phone: [facility] 05-21-2024 18:45-0400 SaO2% (BldA) [Mass fraction] 97 % [facility] Work Phone: [facility] 05-21-2024 18:45-0400 Systolic blood pressure 153 mm[Hg] [facility] Work Phone: [facility] 05-21-2024 14:53-0400 Body height 152.4 cm [facility] Work Phone: [facility] 05-21-2024 14:53-0400 Body temperature 98.1 [degF] [facility] Work Phone: [facility] 05-21-2024 14:53-0400 Body weight 93.44 kg [facility] Work Phone: [facility] 04-28-2024 23:30-0400 Diastolic blood pressure 76 mm[Hg] [facility] Work Phone: [facility] 04-28-2024 23:30-0400 Heart rate 79 /min [facility] Work Phone: [facility] 04-28-2024 23:30-0400 Respiratory rate 20 /min [facility] Work Phone: [facility] 04-28-2024 23:30-0400 SaO2% (BldA) [Mass fraction] 97 % Services [facility] Work Phone: [facility] 04-28-2024 23:30-0400 Systolic blood pressure 148 mm[Hg] Services [facility] Work Phone: [facility] 04-28-2024 19:32-0400 Body height 152.4 cm Services [facility] Work Phone: [facility] 04-28-2024 19:32-0400 Body temperature 98.4 [degF] Services [facility] Work Phone: [facility] 04-28-2024 19:32-0400 Body weight 95.3 kg Services [facility] Work Phone: [facility] 03-31-2024 14:31-0400 Body height 152.4 cm Joe Valderrama MD Work Phone: [facility] 03-31-2024 14:31-0400 Body mass index (BMI) [Ratio] 40.04 kg/m2 Joe Valderrama MD Work Phone: [facility] 03-31-2024 14:31-0400 Body weight 92.99 kg Joe Valderrama MD Work Phone: [facility] 03-02-2024 14:06-0400 Body height 152.4 cm Services [facility] [employer] Work Phone: [facility] 03-02-2024 14:06-0400 Body weight 95.25 kg Services [facility] Work Phone: [facility] 02-25-2024 13:43-0400 Body height 152.4 cm DO Justin Malek Work Phone: [facility] 02-25-2024 13:43-0400 Body mass index (BMI) [Ratio] 41.2 kg/m2 DO Justin Malek Work Phone: [facility] 02-25-2024 13:43-0400 Body weight 95.7 kg DO Justin Malek Work Phone: [facility] 02-05-2024 17:47-0400 Diastolic blood pressure 89 mm[Hg] DO Justin Male k Work Phone: [facility] 02-05-2024 17:47-0400 Heart rate 75 /min DO Justin Malek Work Phone: [facility] 02-05-2024 17:47-0400 Respiratory rate 18 /min DO Justin Malek Work Phone: [facility] 02-05-2024 17:47-0400 SaO2% (BldA) [Mass fraction] 97 % DO Justin Malek Work Phone: [facility] 02-05-2024 17:47-0400 Systolic blood pressure 144 mm[Hg] DO Justin Malek Work Phone: [facility] 02-05-2024 13:46-0400 Body height 152.4 cm DO Justin Malek Work Phone: [facility] 02-05-2024 13:46-0400 Body temperature 98.2 [degF] DO Justin Malek Work Phone: [facility] 02-05-2024 13:46-0400 Body weight 92 kg DO Justin Malek Work Phone: [facility] 01-27-2024 08:30-0400 Body height 152.4 cm [facility] Work Phone: [facility] 01-27-2024 08:30-0400 Body mass index (BMI) [Ratio] 39.6 kg/m2 Services [facility] Work Phone: [facility] 01-27-2024 08:30-0400 Body temperature 99.3 [degF] Services [facility] [employer] Work Phone: [facility] 01-27-2024 08:30-0400 Body weight 92.07 kg Services [facility] Work Phone: [facility] 01-27-2024 08:30-0400 Diastolic blood pressure 94 mm[Hg] [facility] Work Phone: [facility] 01-27-2024 08:30-0400 Heart rate 103 /min [facility] Work Phone: [facility] 01-27-2024 08:30-0400 Respiratory rate 20 /min [facility] Work Phone: [facility] 01-27-2024 08:30-0400 SaO2% (BldA) [Mass fraction] 97 % [facility] Work Phone: [facility] 01-27-2024 08:30-0400 Systolic blood pressure 132 mm[Hg] [facility] Work Phone: [facility] 09-22-2023 10:03-0500 Body mass index (BMI) [Ratio] 39.14 kg/m2 Joe Valderrama MD Work Phone: [facility] 09-22-2023 10:03-0500 Body weight 87.91 kg Joe Valderrama MD Work Phone: [facility] 06-02-2023 01:30-0400 Diastolic blood pressure 87 mm[Hg] [facility] Work Phone: [facility] 06-02-2023 01:30-0400 Heart rate 98 /min [facility] Work Phone: [facility] 06-02-2023 01:30-0400 Respiratory rate 22 /min [facility] Work Phone: [facility] 06-02-2023 01:30-0400 SaO2% (BldA) [Mass fraction] 98 % [facility] Work Phone: [facility] 06-02-2023 01:30-0400 Systolic blood pressure 144 mm[Hg] [facility] Work Phone: [facility] 06-01-2023 19:03-0400 Body temperature 98.7 [degF] [facility] Work Phone: [facility] 06-01-2023 18:58-0400 Body height 152.4 cm Services [facility] Work Phone: [facility] 06-01-2023 18:58-0400 Body weight 89.35 kg Services [facility] Work Phone: [facility] 03-24-2023 14:51-0400 Heart rate 71 /min Carlo Andrews [facility] 03-24-2023 14:51-0400 SaO2% (BldA) [Mass fraction] 98 % Carlo Andrews [facility] 03-24-2023 14:50-0400 Body temperature 98.06 [degF] Carlo Andrews [facility] 03-24-2023 14:50-0400 Blood Pressure Location Carlo Andrews [facility] 03-24-2023 14:50-0400 Diastolic blood pressure 97 mm[Hg] Carlo Andrews [facility] 03-24-2023 14:50-0400 Mean blood pressure 118 mm[Hg] Carlo Andrews [facility] 03-24-2023 14:50-0400 Systolic blood pressure 161 mm[Hg] Carlo Andrews [facility] 03-24-2023 14:50-0400 Respiratory rate 16 /min Carlo Andrews [facility] 03-24-2023 13:40-0400 Heart rate 71 /min Carlo Andrews [facility] 03-24-2023 13:40-0400 SaO2% (BldA) [Mass fraction] 95 % Carlo Andrews [facility] 03-24-2023 13:39-0400 Respiratory rate 20 /min Carlo Andrews [facility] 03-24-2023 13:38-0400 Blood Pressure Location Carlo Juliana [facility] 03-24-2023 13:38-0400 Diastolic blood pressure 81 mm[Hg] Carlo Juliana [facility] 03-24-2023 13:38-0400 Mean blood pressure 98 mm[Hg] Carlo Juliana [facility] 03-24-2023 13:38-0400 Systolic blood pressure 133 mm[Hg] Carlo Juliana [facility] 03-24-2023 13:38-0400 Body temperature 97.88 [degF] Carlo Juliana [facility] 03-24-2023 13:33-0400 Body temperature 98.06 [degF] Carlo Juliana [facility] 03-24-2023 13:33-0400 Diastolic blood pressure 79 mm[Hg] aCrlo Juliana [facility] 03-24-2023 13:33-0400 Heart rate 79 /min Carlo Juliana [facility] 03-24-2023 13:33-0400 Mean blood pressure 98 mm[Hg] Carlo Juliana [facility] 03-24-2023 13:33-0400 Respiratory rate 18 /min Carlo Juliana [facility] 03-24-2023 13:33-0400 SaO2% (BldA) [Mass fraction] 95 % Carlo Andrews [facility] 03-24-2023 13:33-0400 Systolic blood pressure 136 mm[Hg] Carlo Andrews [facility] 03-24-2023 13:25-0400 Mean blood pressure 89 mm[Hg] Carlo Andrews [facility] 03-24-2023 13:25-0400 Respiratory rate 15 /min Carlo Andrews [facility] 03-24-2023 13:20-0400 Mean blood pressure 84 mm[Hg] Carlo Andrews [facility] 03-24-2023 13:20-0400 Respiratory rate 17 /min Carlo Andrews [facility] 03-24-2023 13:08-0400 Body temperature 98.24 [degF] Carlo Andrews [facility] 03-24-2023 13:05-0400 Respiratory rate 17 /min Carlo Andrews [facility] 03-24-2023 09:31-0400 Mean blood pressure 94 mm[Hg] Carlo Andrews [facility] 03-24-2023 09:31-0400 Heart rate 62 /min Carlo Andrews [facility] 03-24-2023 09:30-0400 Blood Pressure Location Carlo Andrews [facility] 03-24-2023 09:29-0400 Body temperature 98.6 [degF] Carlo Andrews [facility] 01-14-2023 18:30-0400 Diastolic blood pressure 100 mm[Hg] Asad Spencere [facility] 01-14-2023 18:30-0400 Heart rate 78 /min Asad Bhatt [facility] 01-14-2023 18:30-0400 Mean blood pressure 124 mm[Hg] Asad Bhatt [facility] 01-14-2023 18:30-0400 Respiratory rate 18 /min Asad Nova [facility] 01-14-2023 18:30-0400 SaO2% (BldA) [Mass fraction] 97 % Asad Nova [facility] 01-14-2023 18:30-0400 Systolic blood pressure 171 mm[Hg] Asad Nova [facility] 01-14-2023 17:33-0400 Diastolic blood pressure 98 mm[Hg] Asda Nova [facility] 01-14-2023 17:33-0400 Heart rate 78 /min Asad Nova [facility] 01-14-2023 17:33-0400 Respiratory rate 18 /min Asad Nova [facility] 01-14-2023 17:33-0400 SaO2% (BldA) [Mass fraction] 97 % Asad Nova [facility] 01-14-2023 17:33-0400 Systolic blood pressure 172 mm[Hg] Asad Nova [facility] 01-14-2023 17:09-0400 gluc 89 mg/dL Asad Nova [facility] 01-14-2023 17:09-0400 gluc Asad Spencere [facility] 01-14-2023 16:30-0400 Diastolic blood pressure 101 mm[Hg] Asad Nova [facility] 01-14-2023 16:30-0400 Heart rate 81 /min Asad Nova [facility] 01-14-2023 16:30-0400 Respiratory rate 16 /min Asad Nova [facility] 01-14-2023 16:30-0400 SaO2% (BldA) [Mass fraction] 97 % Asad Nova [facility] 06-06-2023 16:30-0400 Systolic blood pressure 151 mm[Hg] Asad Bhatt [facility] 01-14-2023 15:38-0400 Body temperature 98.42 [degF] Asad Bhatt [facility] 01-14-2023 15:38-0400 Heart rate 89 /min Asad Bhatt [facility] 01-14-2023 15:38-0400 Respiratory rate 18 /min Asad Bhatt [facility] 05-07-2022 10:28-0400 Diastolic blood pressure 80 mm[Hg] Johann Hayes MD Work Phone: [facility] 05-07-2022 10:28-0400 Heart rate 80 /min Johann Hayes MD Work Phone: [facility] 05-07-2022 10:28-0400 Systolic blood pressure 157 mm[Hg] Johann Hayes MD Work Phone: [facility] Encounters Encounter Date Encounter Type Care Provider Facility Start: 03-18-2025 End: 03-18-2025 Patient encounter procedure Eduin Perez [facility] Work Phone: Start: 03-18-2025 End: 03-18-2025 ambulatory Services [facility] Work Phone: [facility] Work Phone: Start: 03-07-2025 End: 03-07-2025 Chart abstracting Pina Abbott RNreal estate clerk Start: 03-06-2025 End: 03-07-2025 Emergency department patient visit EDUIN PEREZ Facility:[facility] Start: 03-03-2025 End: 03-03-2025 Patient encounter procedure Milagros Sharpe DISTRIBUTION WAREHOUSE MANAGER -XRay [facility] Work Phone: Start: 03-03-2025 End: 03-03-2025 ambulatory Services [facility] Work Phone: [facility] Work Phone: Start: 03-03-2025 End: 03-03-2025 ambulatory Services [facility] Work Phone: [facility] Work Phone: Start: 03-03-2025 End: 03-03-2025 Patient encounter procedure Milagros Baronmichael DISTRIBUTION WAREHOUSE MANAGER -[facility] Neurosurgery Work Phone: Start: 03-02-2025 End: 03-11-2025 Telephone encounter Aldair Germain PhD, CCC-PROPERTY OFFICER Work Phone: [facility] [place] Start: 02-28-2025 End: 02-28-2025 Patient encounter procedure Eduin Montanez [facility]3]-PROPERTY OFFICER Work Phone: [facility] Speech Therapy Comment on above: Oropharyngeal dyspha thi (Primary Dx) Start: 02-28-2025 End: 02-28-2025 ambulatory Eduin Montanez [facility]3]-PROPERTY OFFICER Work Phone: [facility] Speech Therapy Start: 02-28-2025 End: 02-28-2025 Subsequent hospital visit by physician Gi/Gu 2 [facility] ([facility]) Work Phone: Radiology Comment on above: Dysphagia, unspecifi ed type [R13.10] Start: 02-23-2025 End: 02-23-2025 Patient encounter procedure Austin Gordillo MD Work Phone: Pulmonary Medicine Comment on above: Severe persistent as thma without complication (HCC) (Primary Dx); Numbness; Dysphagia, unspecified type; Inducible laryngeal obstruction (ILO); ILD (interstitial lung disease) (HCC); Interstitial pulmonary disease (HCC) Start: 02-23-2025 End: 02-23-2025 ambulatory CARINE BURNETT Facility:[facility] Start: 02-08-2025 End: 02-08-2025 Patient encounter procedure Eduin Perez DO -[facility] Work Phone: Start: 02-08-2025 End: 02-08-2025 ambulatory Services [facility] Work Phone: [facility] Work Phone: Start: 01-28-2025 End: 01-28-2025 Bamboo flowsheet Joe Valderrama MD Work Phone: [facility] NEUROLOG[facility] Start: 01-28-2025 End: 01-28-2025 Bamboo flowsheet Joe Valderrama MD Work Phone: [facility] Start: 01-28-2025 End: 01-28-2025 Office outpatient visit 25 minutes Joe Valderrama MD Work Phone: [facility] Comment on above: NICOLE (obstructive sle ep apnea) (Primary Dx); Degeneration of intervertebral disc of lumbar region with discogenic back pain and lower extremity pain Start: 01-28-2025 End: 01-28-2025 ambulatory JOE VALDERRAMA Not Available Start: 01-18-2025 End: 01-19-2025 Telephone encounter Agbi House DISTRIBUTION WAREHOUSE MANAGER.PACKING AND FINAL ASSEMBLY SUPERVISOR Work Phone: Pulmonary Medicine Comment on above: Medication Problem Start: 01-17-2025 End: 01-17-2025 Refill Gabi House DISTRIBUTION WAREHOUSE MANAGER.PACKING AND FINAL ASSEMBLY SUPERVISOR Work Phone: Pulmonary Medicine Comment on above: Refill Request Start: 01-13-2025 End: 01-13-2025 Refill Joe Valderrama MD Work Phone: [facility] Comment on above: Idiopathic progressi ve polyneuropathy Start: 12-20-2024 End: 12-21-2024 Chart abstracting [facility] Work Phone: Neurology Comment on above: PSG Check In Start: 12-17-2024 End: 12-17-2024 Patient encounter procedure Geoffrey Guardado MD Work Phone: Allergy Comment on above: Nonallergic vasomoto r rhinitis (Primary Dx); Chronic rhinitis; Food intolerance in adult; Severe persistent asthma, uncomplicated (HCC); Laryngeal disorder; Adverse effect of drug, subsequent encounter Start: 12-17-2024 End: 12-17-2024 ambulatory EDUIN PEREZ Facility:[facility] Start: 12-13-2024 End: 12-13-2024 ambulatory SOY REYES JR Facility:[facility] Start: 12-13-2024 End: 12-13-2024 Nutrition therapy Peewee Lópezlukasz HAMLIN Work Phone: Nutrition Therapy Comment on above: Fatty liver (Primary Dx); Dietary counseling and surveillance; Irritable bowel syndrome with constipation Start: 12-13-2024 End: 12-13-2024 Telemedicine consultation with patient Peewee Philipbecky HAMLIN Work Phone: Nutrition Therapy Start: 12-10-2024 End: 02-09-2025 Follow-up encounter Soy Reyes DO Work Phone: [facility] Start: 12-10-2024 End: 12-10-2024 Patient encounter procedure Services [facility] Work Phone: [facility]CT Scan [facility] [place] Work Phone: Start: 12-10-2024 End: 12-10-2024 ambulatory Services [facility] Work Phone: [facility] Work Phone: Start: 12-09-2024 End: 12-09-2024 Subsequent hospital visit by physician Soy Reyes DO Work Phone: [facility] Comment on above: Dyspepsia and disord er of function of stomach [K31.9, R10.13] Start: 12-09-2024 ambulatory SOY REYES JR Facili ty:[facility] Start: 12-08-2024 End: 12-08-2024 ambulatory EVONNE PATADIA Facility:[facility] Start: 12-08-2024 End: 12-08-2024 Telephone encounter Soy Reyes DO Work Phone: [facility] Comment on above: Patient Update Start: 11-22-2024 End: 11-22-2024 Patient encounter procedure Hepatology Procedures A5 Work Phone: Gastroenterology Start: 11-22-2024 End: 01-22-2025 Follow-up encounter Soy Reyes DO Work Phone: [facility] Start: 11-22-2024 End: 11-22-2024 Subsequent hospital visit by physician Us Main A21 2 Radiology Comment on above: Fatty liver [K76.0] Start: 11-22-2024 End: 11-22-2024 ambulatory EDUIN ANA Gastroenterology Comment on above: Arrived Start: 11-22-2024 End: 11-22-2024 Office outpatient visit 25 minutes Gabi Marroquin APRN.PACKING AND FINAL ASSEMBLY SUPERVISOR Work Phone: Pulmonary Medicine Comment on above: Severe persistent as thma without complication (HCC) (Primary Dx); Allergic rhinitis, unspecified seasonality, unspecified trigger; NICOLE (obstructive sleep apnea); Gastroesophageal reflux disease with esophagitis without hemorrhage Start: 11-22-2024 End: 11-22-2024 ambulatory EDUIN PEREZ Facility:[facility] Start: 11-22-2024 End: 11-22-2024 Patient encounter procedure Ruddy Santana MD Work Phone: Otolaryngology Comment on above: Refractory obstructi on of nasal airway; DNS (deviated nasal septum) Start: 11-16-2024 End: 11-19-2024 Telephone encounter Soy Reyes DO Work Phone: [address] [place] [address] Comment on above: Patient Update Start: 11-10-2024 End: 11-10-2024 Telephone encounter Gabi Marroquin APRN.PACKING AND FINAL ASSEMBLY SUPERVISOR Work Phone: Pulmonary Medicine Comment on above: Orders Start: 10-29-2024 End: 10-29-2024 Telephone encounter Eugene Del Castillo MD Work Phone: Rheumatology Start: 10-28-2024 End: 11-03-2024 ambulatory Gabi Marroquin APRN.PACKING AND FINAL ASSEMBLY SUPERVISOR Work Phone: Pulmonary Medicine Comment on above: Update Start: 10-28-2024 End: 11-03-2024 E-mail encounter from caregiver Gabi Marroquin APRN.CNP Work Phone: Pulmonary Medicine Start: 10-28-2024 End: 11-01-2024 Follow-up encounter Eugene Del Castillo MD Work Phone: Rheumatology Start: 10-27-2024 End: 10-27-2024 Telephone encounter Gabi Marroquin APRN.CNP Work Phone: Pulmonary Medicine Comment on above: Received Outside Med ical Records Start: 10-27-2024 End: 10-27-2024 Subsequent hospital visit by physician Xr Main A21 Radiology Comment on above: Polyarthralgia [M25. 50] Start: 10-27-2024 End: 10-27-2024 ambulatory [facility] Facility:[facility] Start: 10-27-2024 End: 10-27-2024 [facility] Facility:[facility] Start: 10-27-2024 End: 10-27-2024 Patient encounter procedure Eugene Del Castillo MD Work Phone: Rheumatology Comment on above: Polyarthralgia (Prim vanessa Dx); Severe persistent asthma, unspecified whether complicated; Rash and nonspecific skin eruption Start: 10-26-2024 End: 10-26-2024 [facility] Facility:[facility] Start: 10-26-2024 End: 10-26-2024 Office outpatient visit 40 minutes Gabi Marroquin APRN.CNP Work Phone: Pulmonary Medicine Comment on above: Severe persistent as thma, unspecified whether complicated (Primary Dx); Rheumatoid arthritis involving both hands, unspecified whether rheumatoid factor present (HCC); NICOLE on CPAP; Encounter for therapeutic drug level monitoring Start: 10-26-2024 End: 10-26-2024 ambulatory Pulm Fct Lab Main 9 Pulmonary Medicine Comment on above: Spirometry Start: 10-26-2024 End: 10-26-2024 Patient encounter procedure Pulm Fct Lab Main 9 Pulmonary Medicine Start: 10-26-2024 End: 10-26-2024 [facility] Facility:[facility] Start: 10-26-2024 End: 10-26-2024 Patient encounter procedure Josephine Rosas PA-C Work Phone: Otolaryngology Comment on above: Laryngeal candidiasi s (Primary Dx); Dysphagia, unspecified type; Inducible laryngeal obstruction (ILO); Allergic rhinitis, unspecified seasonality, unspecified trigger; LPRD (laryngopharyngeal reflux disease); Refractory obstruction of nasal airway; DNS (deviated nasal septum); Impacted cerumen of right ear Start: 10-01-2024 End: 10-01-2024 ambulatory Yuliana Alcazar Pulmonary Medicine Start: 09-09-2024 End: 09-09-2024 Orders Only Sheeba Griffith MD Work Phone: Pulmonary Medicine Comment on above: Moderate persistent asthma, unspecified whether complicated (Primary Dx) Start: 09-08-2024 End: 09-08-2024 Evaluation and management of inpatient EDUIN PEREZ Facility:[facility] Start: 09-01-2024 End: 09-01-2024 ambulatory Sheeba Murray APRN.CNP Work Phone: Critical Care Start: 09-01-2024 End: 09-09-2024 Evaluation and management of inpatient EDUIN PEREZ Facility:[facility] Start: 09-01-2024 End: 09-01-2024 Evaluation and management of inpatient Services Family [facility] Work Phone: [facility] Critical Care Work Phone: Start: 09-01-2024 End: 09-01-2024 Emergency department patient visit Betty Almonte Facility:[facility] Start: 08-30-2024 End: 08-30-2024 Patient encounter procedure Services [facility] Work Phone: [facility]XRay [facility] [place] Work Phone: Start: 08-30-2024 End: 08-30-2024 ambulatory Services [facility] Work Phone: [facility] Work Phone: Start: 08-18-2024 End: 08-18-2024 ambulatory TROY JOHNSON Facility:[facility] Start: 08-13-2024 End: 08-16-2024 Evaluation and management of inpatient Services Family [facility] Work Phone: [facility] Progressive Work Phone: Start: 08-13-2024 End: 08-13-2024 Evaluation and management of inpatient Services [facility] Work Phone: [facility] Progressive Work Phone: Start: 07-28-2024 End: 07-28-2024 Telephone encounter Austin Gordillo MD Work Phone: Pulmonary Medicine Start: 07-25-2024 End: 07-28-2024 Refill Lb Joseph PA-C Work Phone: [facility] [id number] Comment on above: Med Change Request Start: 07-23-2024 End: 07-25-2024 Evaluation and management of inpatient STEVEN LESSA RENTERIA OSIRIS Facility:[facility] Start: 07-20-2024 End: 07-23-2024 Evaluation and management of inpatient Services [facility] Work Phone: [facility] Med Surg Work Phone: Start: 07-05-2024 End: 07-05-2024 Office outpatient visit 25 minutes Joe Valderrama MD Work Phone: [facility] Comment on above: Idiopathic progressi ve polyneuropathy (Primary Dx); Spastic hemiplegia affecting right dominant side, unspecified etiology (CMS/[facility]) Start: 07-05-2024 End: 07-05-2024 ambulatory JOE VALDERRAMA Not Available Start: 07-05-2024 End: 07-05-2024 Bamboo flowsheet Joe Valderrama MD Work Phone: [facility] Start: 07-05-2024 End: 07-05-2024 Bamboo flowsheet Joe Valderrama MD Work Phone: [facility] Start: 06-30-2024 End: 07-02-2024 ambulatory ANDREAS A HERESI Facility:[facility] Start: 06-30-2024 End: 06-30-2024 ambulatory Pulm Fct Lab Main 3 Pulmonary Medicine Comment on above: Spirometry Start: 06-30-2024 End: 06-30-2024 Patient encounter procedure Austin Gordillo MD Work Phone: Pulmonary Medicine Comment on above: Severe persistent as thma with status asthmaticus (Primary Dx) Start: 06-29-2024 End: 06-29-2024 ambulatory Shayne Gruber Facility:[facility] Start: 06-23-2024 Emergency department patient visit ESPINOZA MACK Facility:[facility] Start: 06-15-2024 End: 06-15-2024 ambulatory JOE Kelsea JANNIE Not Available Start: 06-11-2024 End: 06-11-2024 ambulatory NON STAFF [facility] Work Phone: Start: 06-11-2024 End: 06-11-2024 Patient encounter procedure [facility]-CT [facility] [place] Work Phone: Start: 06-02-2024 End: 06-08-2024 Orders Only Austin Gordillo MD Work Phone: Referring Physician Comment on above: Severe persistent as thma, unspecified whether complicated (Primary Dx) Start: 06-01-2024 End: 06-01-2024 Emergency department patient visit [facility]-Emergency Room Work Phone: Start: 06-01-2024 End: 06-01-2024 ambulatory NON STAFF [facility] Work Phone: Start: 06-01-2024 End: 06-01-2024 Patient encounter procedure [facility] Physician [facility] Card[facility] Work Phone: Start: 06-01-2024 End: 06-01-2024 Patient encounter procedure [facility] Physician [facility] Pulmonary Disease Work Phone: Start: 06-01-2024 End: 06-01-2024 ambulatory NON STAFF [facility] Work Phone: Start: 05-21-2024 End: 05-21-2024 Emergency department patient visit Services [facility] Work Phone: [facility]-Emergency Room Work Phone: Start: 05-06-2024 Non-patient / Non-visit [facility] Physician [facility] ER Work Phone: Start: 04-28-2024 End: 04-29-2024 Emergency department patient visit Services [facility] Work Phone: [facility]-Emergency Room Work Phone: Start: 04-27-2024 End: 04-27-2024 Patient encounter procedure Services [facility] Work Phone: [facility]-XRay [facility] [place] Work Phone: Start: 04-27-2024 End: 04-27-2024 ambulatory Services [facility] Work Phone: [facility] Work Phone: Start: 04-21-2024 Non-patient / Non-visit Servic es [facility] Work Phone: [facility] Pulmonary Disease Work Phone: Start: 04-20-2024 End: 04-20-2024 ambulatory Services [facility] Work Phone: [facility] Work Phone: Start: 04-20-2024 End: 04-20-2024 Patient encounter procedure Services [facility] Work Phone: [facility]-Sleep Lab Work Phone: Start: 03-31-2024 End: 03-31-2024 Office outpatient visit 25 minutes Joe Valderrama MD Work Phone: [facility] Comment on above: Intractable migraine with aura with status migrainosus (CMS/HCC) (Primary Dx); Idiopathic progressive polyneuropathy; Oropharyngeal dysphagia; Spastic hemiplegia affecting right dominant side, unspecified etiology (CMS/HCC) Start: 03-31-2024 End: 03-31-2024 ambulatory JOE VALDERRAMA Not Available Start: 03-31-2024 End: 03-31-2024 Bamboo flowsheet Joe Valderrama MD Work Phone: [facility] Start: 03-31-2024 End: 03-31-2024 Bamboo flowsheet Joe Valderrama MD Work Phone: [facility] Start: 03-28-2024 Non-patient / Non-visit Servic [facility] Work Phone: [facility] Cardiology Work Phone: Start: 03-17-2024 End: 03-17-2024 ambulatory DO Justin Malek Work Phone: [facility] Work Phone: Start: 03-17-2024 End: 03-17-2024 Patient encounter procedure DO Justin Malek Work Phone: [facility]-Electrodiagnostics Work Phone: Start: 03-17-2024 [facility] Work Phone: Start: 03-09-2024 End: 03-09-2024 ambulatory JUSTIN MALEK Facility:[facility] Start: 03-09-2024 End: 03-09-2024 Patient encounter procedure YAZ SIERRA [facility] Start: 03-02-2024 End: 03-02-2024 ambulatory Services [facility] Work Phone: [facility] Work Phone: Start: 03-02-2024 End: 03-02-2024 Departed Referred Services [facility] Work Phone: [facility]-Digestive Health Work Phone: Start: 02-25-2024 End: 02-25-2024 ambulatory DO Justin Malek Work Phone: [facility] Work Phone: Start: 02-25-2024 End: 02-25-2024 Patient encounter procedure DO Justin Malek Work Phone: [facility] Gastroenterology Work Phone: Start: 02-23-2024 End: 02-23-2024 ambulatory DO Justin Rg Work Phone: [facility] Work Phone: Start: 02-23-2024 End: 02-23-2024 Departed Referred DO Justin gR Work Phone: [facility] Services Start: 02-21-2024 End: 02-21-2024 ambulatory DO Justin Rg Work Phone: [facility] Work Phone: Start: 02-21-2024 End: 02-21-2024 Patient encounter procedure DO Justin Rg Work Phone: [facility]XRay [facility] [place] Work Phone: Start: 02-10-2024 End: 02-10-2024 ambulatory DO Justin Rg Work Phone: [facility] Work Phone: Start: 02-10-2024 End: 02-10-2024 Patient encounter procedure DO Justin Rg Work Phone: [facility]-Lab [address] Work Phone: Start: 02-05-2024 End: 02-05-2024 Emergency department patient visit DO Justin Rg Work Phone: [facility]-Emergency Room Work Phone: Start: 02-02-2024 End: 02-02-2024 ambulatory PERRY WU Not Available Start: 01-27-2024 End: 01-27-2024 ambulatory Services [facility] Work Phone: [facility] Work Phone: Start: 01-27-2024 End: 01-27-2024 Patient encounter procedure Services [facility] Work Phone: [facility] Pulmonary Disease Work Phone: Start: 12-24-2023 End: 12-24-2023 Patient encounter procedure Services [facility] Work Phone: [facility] [address] Work Phone: Start: 12-05-2023 End: 12-05-2023 ambulatory Services [facility] Work Phone: [facility] Work Phone: Start: 12-05-2023 End: 12-05-2023 Patient encounter procedure Services [facility] Work Phone: [facility] [place] Work Phone: Start: 11-27-2023 Non-patient / Non-visit Servic es [facility] Work Phone: [facility] Pulmonary Disease Work Phone: Start: 11-27-2023 End: 11-27-2023 ambulatory Services [facility] Work Phone: [facility] Work Phone: Start: 11-27-2023 End: 11-27-2023 Patient encounter procedure Services [facility] Work Phone: [facility]-Respiratory Therapy Work Phone: Start: 11-21-2023 End: 11-21-2023 ambulatory Services [facility] Work Phone: [facility] Work Phone: Start: 11-21-2023 End: 11-21-2023 Departed Referred Services [facility] Work Phone: [facility] Start: 10-30-2023 End: 10-30-2023 ambulatory Services [facility] Work Phone: [facility] Work Phone: Start: 10-30-2023 End: 10-30-2023 Patient encounter procedure Services [facility] Work Phone: [facility] [place] Work Phone: Start: 10-22-2023 End: 10-22-2023 ambulatory Services [facility] Work Phone: [facility] Work Phone: Start: 10-22-2023 End: 10-22-2023 Patient encounter procedure Services [facility] Work Phone: [facility] [place] Work Phone: Start: 10-15-2023 End: 10-15-2023 Patient encounter procedure Services [facility] Work Phone: [facility]-Lab [facility] [place] Work Phone: Start: 09-22-2023 End: 09-22-2023 Office outpatient visit 25 minutes Joe Valderrama MD Work Phone: [facility] Comment on above: Lumbosacral radiculo karl at L5 (Primary Dx); Numbness and tingling; Intractable chronic migraine without aura and without status migrainosus (CMS/HCC); Carpal tunnel syndrome, bilateral; Idiopathic progressive polyneuropathy Start: 06-02-2023 Evaluation and management of inpatient Services [facility] Work Phone: [facility] Med Surg Work Phone: Start: 06-02-2023 observation encounter Services [facility] Work Phone: [facility] Work Phone: Start: 03-26-2023 ambulatory Eligio Ford Facility :[facility] Start: 03-24-2023 End: 03-24-2023 Admission to same day surgery center Carlo Andrews [facility] Start: 03-24-2023 End: 03-24-2023 ambulatory Carlo Andrews Facility:[facility] Start: 03-19-2023 End: 03-19-2023 ambulatory Services Family [facility] Work Phone: [facility] Work Phone: Start: 03-19-2023 End: 03-19-2023 Patient encounter procedure Services [facility] Work Phone: [facility] [place] Work Phone: Start: 02-05-2023 End: 02-05-2023 Lab Drop off Eligio Ford [facility] Start: 01-14-2023 End: 01-14-2023 Emergency department patient visit Asad Bhatt [facility] Start: 09-11-2022 End: 09-13-[address] ESPINOZA MACK Facility:[facility]1 Start: 09-10-2022 End: 09-11-[address] ESPINOZA MACK Facility:[facility]1 Start: 09-07-2022 End: 09-07-[address] DARRIUS OJEDA Facility:[facility]1 Start: 08-15-2022 End: 08-16-[address] ESPINOZA MACK Facility:[facility]1 Start: 08-12-[address] ESPINOZA MACK Facilit y:H1 Start: 07-02-2022 End: 07-03-[address] ESPINOZA MACK Facility:[facility]1 Start: 05-07-2022 End: 05-08-2022 ambulatory JOHANN HAYES Facility:[facility] Start: 05-07-2022 End: 05-07-2022 Patient encounter procedure Johann Hayes MD Work Phone: Neurology Comment on above: Forgetfulness (Prima ry Dx); Other dysphagia Start: 05-01-2022 End: 05-02-[address] ESPINOZA MACK Facility:[facility]1 Start: 03-21-[address] ESPINOZA MACK Facilit y:[facility]1 Start: 02-01-2022 End: 02-02-[address] ESPINOZA MACK Facility:[facility]1 Start: 11-21-2021 End: 11-22-[address] ESPINOZA MACK Facility:[facility]1 Start: 10-02-2021 End: 10-03-[address] ESPINOZA MACK Facility:[facility]1 Start: 07-23-2017 End: 07-24-2017 Ambulatory ROQUE Fanny CHAUDHARI Facility:[facility] Start: 03-14-2017 End: 03-15-2017 Ambulatory DEFAULT PHYSICIAN Facility:[facility] Start: 02-20-2011 End: 02-20-2011 Telephone encounter Diane GrahamFito Emerson Maribeth Radiology Procedures Date Procedure Procedure Detail Performing Clinician Start: 03-18-2025 Screening mammography of bilateral breasts Services [facility] Work Phone: Start: 03-03-2025 X-ray of lumbar spine, six views including bending views Services [facility] Work Phone: Start: 02-28-2025 End: 02-28-2025 Radiologic exam swallow function contrast study Josephine Rosas PA-C Work Phone: Start: 12-17-2024 ALLERGEN SKIN TEST-FOOD Geoffrey Guardado MD Work Phone: Start: 12-17-2024 ALLERGEN SKIN TEST-INHALENT 40 Geoffrey hooks MD Work Phone: Start: 12-10-2024 CT of soft tissues of neck with contrast Services [facility] Work Phone: Start: 12-09-2024 Colonoscopy flx dx w/collj spec when pfrmd Soy Reyes DO Work Phone: Start: 12-09-2024 Esophagogastroduodenoscopy transoral diagnostic Soy Reyes DO Work Phone: Start: 12-09-2024 End: 12-09-2024 Colonoscopy Soy Reyes Jr., DO Work Phone: Start: 11-22-2024 Us abdominal real time w/image limited Soy Reyes DO Work Phone: Start: 11-22-2024 Liver elastography w/o imag w/i&r Soy Reyes DO Work Phone: Start: 10-26-2024 Nitric oxide gas determination Sheeba Griffith MD Work Phone: Start: 10-26-2024 Brncdilat rspse spmtry pre&post-brncdilat admn Sheeba Griffith MD Work Phone: Start: 09-04-2024 Antibody screen EVONNE ALMARAZ Comment on above: Order Comment: Specimen Type: BLOOD SPEC IMENOrdering Facility: [facility] Address: [address] [place] [address] Performed By: #### T SCR ####CC MAIN BLOOD BANKCLIA [id number] [address] [place] Start: 09-01-2024 Respiratory Panel (PCR) Services [facility] [employer] Phone: Start: 09-01-2024 Antibody screen EVONNE ALMARAZ Comment on above: Order Comment: Specimen Type: BLOOD SPEC IMENOrdering Facility: [facility] Address: [address] [place] [address] Performed By: #### T SCR ####CC MAIN BLOOD BANKCLIA [id number] [address] [place] Start: 09-01-2024 CT of chest without contrast Services [facility] [employer] Phone: Start: 09-01-2024 Plain chest X-ray Services [facility] [employer] Phone: Start: 08-30-2024 Plain chest X-ray Services [facility] [employer] Phone: Start: 08-30-2024 Gram stain microscopy Services [facility] [employer] Phone: Start: 08-13-2024 Plain chest X-ray Services [facility] [employer] Phone: Start: 08-13-2024 Respiratory Panel (PCR) Services [facility] [employer] Phone: Start: 08-12-2024 Plain chest X-ray Services [facility] [employer] Phone: Start: 08-12-2024 Respiratory Panel (PCR) Services [facility] [employer] Phone: Start: 07-20-2024 Plain chest X-ray Services [employer] Work Phone: Start: 07-20-2024 Viral nucleic acid assay Services [employer] Phone: Start: 06-30-2024 Nitric oxide gas determination Austin Gordillo MD Work Phone: Start: 06-30-2024 Brncdilat rspse spmtry pre&post-brncdilat admn Austin Gordillo MD Work Phone: Start: 06-11-2024 Computed tomography of abdomen and pelvis with contrast Start: 06-01-2024 CT of thorax with contrast Start: 06-01-2024 Plain chest X-ray Start: 05-21-2024 Plain chest X-ray Services [employer] Phone: Start: 04-28-2024 Plain chest X-ray Services [employer] Phone: Start: 04-28-2024 SARS-CoV-2, Influenza & RSV (PCR) [facility] [employer] Work Phone: Start: 04-27-2024 Plain chest X-ray Services [employer] Phone: Start: 02-23-2024 Bacteria identified in Urine by Culture Services [employer] Phone: Start: 02-23-2024 Urine culture DO Justin [employer] Work Phone: Start: 02-21-2024 Plain chest X-ray DO Justin Rg Work Phone: Start: 02-05-2024 CT of abdomen and pelvis without contrast DO Justin Malebecky Work Phone: Start: 10-30-2023 Urine culture Services [employer] Phone: Start: 10-22-2023 Plain X-ray of right hand Services [facility] [employer] Work Phone: Start: 03-09-2020 Cystourethroscopy with dilation of urethral stricture Asad Bhatt Start: 03-24-2014 cystoscopy, right retrograde pyelogram, right double J stent placement, extracorporeal shock wave lithotripsy large right renal stone Asad Bhatt anterior cervical di sectomy and fusion 1 Asad Bhatt Comment on above: stated 3 surgeries Cataract extraction and insertion of intraocular lens Carlo Andrews Decompression of median nerve Asad Bhatt Comment on above: BILATERAL EXCISION LIPOMA 3 Asad troncoso Comment on above: X3 Laparoscopic cholecystectomy Asad Bhatt Leiomyoma Carlo Andrews Ligation of fallopian tube J ohn Nova Open reduction of fr acture with internal fixation Carlo Andrews Tonsillectomy and adenoidectomy Asad Bhatt Vaginal hysterectomy Asad Woodrow segalkaryna Comment on above: AND UNILATERAL S&O Plan of Treatment Date Care Activity Detail Author Start: 11-16-2029 Screening for malignant neoplasm of colon [facility] Start: 03-06-2028 Diabetes Screening Diabetes Screening [facility] Start: 12-10-2027 Diabetes Screening Diabetes Screening [facility] Start: 10-28-2027 Diabetes Screening Diabetes Screening [facility] Start: 09-09-2027 Diabetes Screening Diabetes Screening [facility] Start: 09-01-2027 Diabetes Screening Diabetes Screening [facility] Start: 07-25-2027 Diabetes Screening Diabetes Screening [facility] Start: 06-30-2027 Diabetes Screening Diabetes Screening [facility] Start: 10-27-2025 BP Controlled (<130/80) BP Controlled (<130/80) [facility] Start: 10-26-2025 BP Controlled (<130/80) BP Controlled (<130/80) [facility] Start: 09-09-2025 End: 09-09-2025 Patient encounter procedure 09/09/2025 9:40 AM EST Office Visit Gastroenterology [address] [place], [place] [phone] Soy Reyes Jr., DO [address] [place] [address] [phone] Dyspepsia Gastroenterology Comment on above: Dyspepsia Start: 2025 End: 2025 Patient encounter procedure 2025 10:20 AM EST Office Visit Gastroenterology [address] [place] [address] Lennie Clark MD, PhD [address] [place] [address] GASTRIC ISSUES Gastroenterology Comment on above: GASTRIC ISSUES Start: 07-08-2025 End: 07-08-2025 Patient encounter procedure 07/08/2025 8:45 PM EST Office Visit Neurology [address] [place] [address] Main, Psg Neur [address] [place] [address] NICOLE (obstructive sleep apnea) [G47.33] Neurology Comment on above: NICOLE (obstructive sleep apnea) [G47.33] Start: 05-03-2025 End: 05-03-2025 Patient encounter procedure 05/03/2025 11:20 AM EDT Office Visit Otolaryngology [address] [place] [address] Josephine Rosas PA-C [address] [place] [address] wax cleaning Otolaryngology Comment on above: wax cleaning Start: 04-27-2025 End: 04-27-2025 Patient encounter procedure 04/27/2025 11:00 AM EDT Office Visit Pulmonary Medicine [address] [address] Austin Gordillo MD [address] [place] [address] Est pt Asthma per Dr. Gordillo (60min) Pulmonary Medicine Comment on above: Est pt Asthma per Dr. Gordillo (60min) Start: 04-27-2025 End: 04-27-2025 ambulatory Pulmonary Medicine Comment on above: Est pt Asthma per Dr. Gordillo (60min) Start: 04-21-2025 End: 04-21-2025 Patient encounter procedure 04/21/2025 8:25 AM EDT Office Visit Otolaryngology [address] [address] Ruddy Santana MD [address] [place] [address] Return in about 6 weeks (around 01/03/2025). Otolaryngology Comment on above: Return in about 6 weeks (around ). Start: 04-12-2025 End: 04-12-2025 Patient encounter procedure 04/12/2025 9:00 AM EDT Office Visit Gastroenterology [address] [address] Vicki Barajas, DISTRIBUTION WAREHOUSE MANAGER.PACKING AND FINAL ASSEMBLY SUPERVISOR [address] [place] [address] Dysphagia, unspecified type [R13.10] Gastroenterology Comment on above: Dysphagia, unspecified type [R13.10] Start: 04-11-2025 Influenza vaccination Influenza Vaccine (#1) [facility] Start: 03-24-2025 End: 03-24-2025 Patient encounter procedure 03/24/2025 8:00 AM EDT Office Visit Urology [address] [address] Diane Sanchez, DISTRIBUTION WAREHOUSE MANAGER.PACKING AND FINAL ASSEMBLY SUPERVISOR [address] [place] [address] kidney stones ( RS FROM 8-5) AWARE MAIN Urology Comment on above: kidney stones ( RS FROM 8-5) AWARE MAIN Start: 03-23-2025 End: 03-23-2025 Patient encounter procedure 03/23/2025 8:00 AM EDT Office Visit Neurology [address] [place] [address] [place] [address] [place] [address] Numbness Neurology Comment on above: Numbness Start: 03-16-2025 End: 03-16-2025 Patient encounter procedure 03/16/2025 11:00 AM EDT Office Visit Otolaryngology [address] [address] Aldair Germain, PhD, CCC-PROPERTY OFFICER [address] [place] [address] vocal cord dysfunction Otolaryngology Comment on above: vocal cord dysfunction Start: 03-15-2025 End: 03-15-2025 Patient encounter procedure 03/15/2025 9:00 AM EDT Office Visit Urology [address] [address] Diane Sanchez, CARLOS ALBERTO.PACKING AND FINAL ASSEMBLY SUPERVISOR [address] [place] [address] kidney stones Urology Comment on above: kidney stones Start: 03-14-2025 End: 03-14-2025 Patient encounter procedure 03/14/2025 2:30 PM EDT Appointment Radiology [address] [place] [address] ct Radiology Comment on above: ct Start: 03-09-2025 End: 03-09-2025 Patient encounter procedure 03/09/2025 9:30 AM EDT Office Visit Otolaryngology [address] [address] Aldair Germain, PhD, CCC-PROPERTY OFFICER [address] [place] [address] vocal cord dysfunction Otolaryngology Comment on above: vocal cord dysfunction Start: 03-08-2025 End: 03-08-2025 Patient encounter procedure Otolaryngology Comment on above: Return in about 6 weeks (around ). Dysphagia, unspecifi ed type [R13.10] Start: 03-03-2025 Patient referral [facility] Work Phone: Start: 03-02-2025 End: 03-02-2025 Patient encounter procedure 03/02/2025 2:30 PM EDT Office Visit Otolaryngology [address] [address] Aldair Germain, PhD, CCC-PROPERTY OFFICER [address] [place] [address] vocal cord dysfunction Otolaryngology Comment on above: vocal cord dysfunction Start: 02-28-2025 End: 02-28-2025 Patient encounter procedure Radiology Comment on above: XR MODIFIED BARIUM SWALLOW W SPEECH THER APY Start: 02-25-2025 End: 02-25-2025 Patient encounter procedure 02/25/2025 11:20 AM EDT Office Visit Gastroenterology [address] [place], [place] [phone] Soy Reyes Jr., DO [address] [place] [address] [phone] GASTRIC ISSUES Gastroenterology Comment on above: GASTRIC ISSUES Start: 02-23-2025 End: 02-23-2025 Patient encounter procedure 02/23/2025 1:00 PM EDT Office Visit Pulmonary Medicine [address] [address] Austin Gordillo MD [address] [place] [address] asthma and cd, sometimes can't breath Pulmonary Medicine Comment on above: asthma and cd, sometimes can't breath Start: 01-28-2025 End: 01-28-2025 Telemedicine consultation with patient [facility] Comment on above: Arrived Start: 01-27-2025 End: 01-27-2025 Patient encounter procedure 01/27/2025 9:45 PM EDT Office Visit Neurology [address] [place] [address] Main, Psg Neur [address] [place] [address] PSG Neurology Comment on above: PSG Start: 01-25-2025 End: 01-25-2025 Patient encounter procedure 01/25/2025 3:20 PM EDT Office Visit Otolaryngology [address] [address] Ruddy Santana MD [address] [place] [address] Return in about 6 weeks (around 01/03/2025). Otolaryngology Comment on above: Return in about 6 weeks (around ). Start: 01-17-2025 End: 01-17-2025 Follow-up encounter 01/17/2025 2:00 PM EDT [facility] Nutrition Therapy [address] [place] [address] FATTY LIVER FOLLOW UP Nutrition Therapy Comment on above: FATTY LIVER FOLLOW UP Start: 12-30-2024 End: 12-30-2024 ambulatory 12/30/2024 10:00 AM EDT [facility] Gastroenterology [address] [address] Susan Pemberton APRN.PACKING AND FINAL ASSEMBLY SUPERVISOR [address] [place] [address] Fatty liver [K76.0] Gastroenterology Comment on above: Fatty liver [K76.0] Start: 12-27-2024 End: 12-27-2024 ambulatory 12/27/2024 4:00 PM EDT OT/PT/Speech Visit [facility] [address] [place] [phone] Kitty Grover, [facility]3]-PROPERTY OFFICER [address] [place] [address] Dysphagia, unspecified type [R13.10] [facility] Comment on above: Dysphagia, unspecified type [R13.10] Start: 12-22-2024 End: 12-22-2024 ambulatory 12/22/2024 9:10 AM EDT OT/PT/Speech Visit [facility] [address] [place] [address] [facility], Speech [facility] [address] [place] [address] XR MODIFIED BARIUM SWALLOW W SPEECH THERAPY [facility] Comment on above: XR MODIFIED BARIUM SWALLOW W SPEECH THER APY Start: 12-22-2024 End: 12-22-2024 Patient encounter procedure 12/22/2024 9:10 AM EDT Appointment Radiology [address] [place] [address] XR MODIFIED BARIUM SWALLOW W SPEECH THERAPY Radiology Comment on above: XR MODIFIED BARIUM SWALLOW W SPEECH THER APY Start: 12-21-2024 End: 12-21-2024 Patient encounter procedure 12/21/2024 3:00 PM EDT Appointment Radiology [address] [facility] [address] XR ESOPHAGRAM Radiology Comment on above: XR ESOPHAGRAM Start: 12-17-2024 End: 12-17-2024 Patient encounter procedure 12/17/2024 2:45 PM EDT Office Visit Allergy [address] [place] [phone] Geoffrey Guardado MD [address] [address] Allergic rhinitis, unspecified seasonality, unspecified trigger [J30.9] Allergy Comment on above: Allergic rhinitis, unspecified seasonali ty, unspecified trigger [J30.9] Start: 12-13-2024 End: 12-13-2024 Nutrition therapy 12/13/2024 2:00 PM EDT [facility] Nutrition Therapy [address] [place] [address] Low salt heart healthy diet Nutrition Therapy Comment on above: Low salt heart healthy diet Start: 12-13-2024 End: 12-13-2024 Patient encounter procedure 12/13/2024 7:20 AM EDT Office Visit Allergy [address] [place] [phone] Evonne Almaraz MD [address] [place] [phone] Allergic rhinitis, unspecified seasonality, unspecified trigger [J30.9] Allergy Comment on above: Allergic rhinitis, unspecified seasonali ty, unspecified trigger [J30.9] Start: 12-10-2024 End: 12-10-2024 Patient encounter procedure 12/10/2024 2:00 PM EDT Office Visit Allergy [address] [address] Ashanti Jaimes MD [address] [place] [address] Severe persistent asthma without complication (HCC) [J45.50] Allergy Comment on above: Severe persistent asthma without complic ation (HCC) [J45.50] Start: 12-10-2024 End: 12-10-2024 ambulatory 12/10/2024 1:45 PM EDT OT/PT/Speech Visit [facility] [address] [place] [address] Leticia Walker, CCC-PROPERTY OFFICER [address] [place] [address] Dysphagia, unspecified type [R13.10] [facility] Comment on above: Dysphagia, unspecified type [R13.10] Start: 12-10-2024 End: 12-10-2024 ambulatory 12/10/2024 11:15 AM EDT OT/PT/Speech Visit [facility] [address] [place] [address] Laura Dickson, CCC-PROPERTY OFFICER [address] [place] [address] Dysphagia, unspecified type [R13.10] [facility] Comment on above: Dysphagia, unspecified type [R13.10] Start: 12-09-2024 End: 12-09-2024 Patient encounter procedure 12/09/2024 8:00 AM EDT Appointment [facility] [place] [address] [address] [phone] Soy Reyes Jr., [address] [place] [address] EGD AND COL [facility] Comment on above: EGD AND COL Start: 12-09-2024 End: 12-09-2024 ambulatory 12/09/2024 7:15 AM EDT Results Only [facility] [address] [place], [place] [phone] C3 COMPLEMENT [C3COMP] [facility] Comment on above: C3 COMPLEMENT [C3COMP] Start: 12-08-2024 End: 12-08-2024 ambulatory 12/08/2024 2:00 PM EDT [facility] Allergy [address] [place] [phone] Evonne Almaraz MD [address] [place] [address] [phone] Allergy testing of all kinds Allergy Comment on above: Allergy testing of all kinds Start: 12-07-2024 End: 12-07-2024 Patient encounter procedure 12/07/2024 2:20 PM EDT Appointment Radiology [address] [place] [address] xr esophagram Radiology Comment on above: xr esophagram Start: 12-07-2024 End: 12-07-2024 ambulatory [facility] Comment on above: mbs labs C3 COMPLEMENT [C3COM P] Start: 12-07-2024 End: 12-07-2024 Patient encounter procedure 12/07/2024 9:50 AM EDT Appointment Radiology [address] [place] [address] mbs Radiology Comment on above: mbs Start: 11-25-2024 End: 11-25-2024 Anesthesia consultation 11/25/2024 11:59 PM EDT Anesthesia Event [facility] [address] [place] [address] Zen Gilliam APRN.[facility] Start: 11-22-2024 End: 11-22-2024 ambulatory 11/22/2024 2:20 PM EDT Procedure Gastroenterology [address] [place] [phone] Fatty liver [K76.0] Gastroenterology Comment on above: Fatty liver [K76.0] Start: 11-22-2024 End: 11-22-2024 Patient encounter procedure Pulmonary Medicine Comment on above: Est pt Asthma 4wk f/u Refractory obstructi on of nasal airway [J34.89] With Provider: Gabi Marroquin APRN.PACKING AND FINAL ASSEMBLY SUPERVISOR [Pulmonary Medicine] Fatty liver [K76.0] Start: 11-19-2024 End: 11-19-2024 ambulatory 11/19/2024 2:00 PM EDT [facility] Allergy [address] [place] [phone] [place] [address] [place] [address] Allergic rhinitis, unspecified seasonality, unspecified trigger [J30.9] Allergy Comment on above: Allergic rhinitis, unspecified seasonali ty, unspecified trigger [J30.9] Start: 11-18-2024 End: 02-17-2025 CBC W Auto Differential panel - Blood COMPLETE BLOOD COUNT AND DIFFERENTIAL Lab Routine Dyspepsia and disorder of function of stomach Fatty liver Expected: 11/18/2024, Expires: 02/17/2025 [facility] Comment on above: Expected: 11/18/2024, Expires: Start: 11-18-2024 End: 02-17-2025 Comprehensive metabolic 2000 panel - Serum or Plasma COMPREHENSIVE METABOLIC PANEL Lab Routine Dyspepsia and disorder of function of stomach Fatty liver Expected: 11/18/2024, Expires: 02/17/2025 [facility] Comment on above: Expected: 11/18/2024, Expires: Start: 11-15-2024 End: 11-15-2024 Patient encounter procedure 11/15/2024 10:35 AM EDT Office Visit Otolaryngology [address] [place], [place] [phone] Ruddy Santana MD [address] [place] [address] 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] Otolaryngology Comment on above: Refractory obstruction of nasal airway [ J34.89] Start: 11-12-2024 End: 11-12-2024 ambulatory 11/12/2024 9:30 AM EDT OT/PT/Speech Visit [facility] [address] [phone] Leticia Walker, [facility]3]-PROPERTY OFFICER [address] [place] [address] Dysphagia, unspecified type [R13.10] [facility] Comment on above: Dysphagia, unspecified type [R13.10] Start: 11-11-2024 End: 11-11-2024 Patient encounter procedure Radiology Comment on above: mbs w speech r13.10 humana mc order in e pic rescheduled Start: 11-10-2024 End: 11-10-2024 Patient encounter procedure 11/10/2024 3:00 PM EDT Appointment Radiology [address] [place] [address] XR ESOPGRAM Radiology Comment on above: XR ESOPGRAM Start: 11-10-2024 End: 11-10-2024 ambulatory 11/10/2024 10:00 AM EDT Results Only [facility] [address] [place] [address] [facility] Start: 11-09-2024 End: 11-09-2024 ambulatory 11/09/2024 10:30 AM EDT [facility] Allergy [address] [place] [phone] [place] [address] [place] [phone] Allergic rhinitis, unspecified seasonality, unspecified trigger [J30.9] Allergy Comment on above: Allergic rhinitis, unspecified seasonali ty, unspecified trigger [J30.9] Start: 11-02-2024 End: 11-02-2024 ambulatory [facility] Comment on above: Dysphagia, unspecified type [R13.10] Start: 11-02-2024 End: 11-02-2024 Patient encounter procedure 11/02/2024 9:10 AM EDT Appointment Radiology [address] [place] [address] Dysphagia, unspecified type [R13.10] Radiology Comment on above: Dysphagia, unspecified type [R13.10] Start: 11-01-2024 End: 01-31-2025 Complement C3 [Mass/volume] in Serum or Plasma C3 COMPLEMENT Lab Routine Polyarthralgia Rash and nonspecific skin eruption Expected: 11/01/2024, Expires: 01/31/2025 [facility] Work Phone: Comment on above: Expected: 11/01/2024, Expires: Start: 11-01-2024 End: 01-31-2025 Complement C4 [Mass/volume] in Serum or Plasma C4 COMPLEMENT Lab Routine Polyarthralgia Rash and nonspecific skin eruption Expected: 11/01/2024, Expires: 01/31/2025 [facility] Comment on above: Expected: 11/01/2024, Expires: Start: 11-01-2024 End: 01-31-2025 Protein/Creatinine [Mass Ratio] in Urine PROTEIN / CREATININE RATIO Lab Routine Polyarthralgia Rash and nonspecific skin eruption Expected: 11/01/2024, Expires: 01/31/2025 [facility] Comment on above: Expected: 11/01/2024, Expires: Start: 11-01-2024 End: 01-31-2025 Urinalysis complete panel - Urine URINALYSIS, WITH MICROSCOPIC Lab Routine Polyarthralgia Rash and nonspecific skin eruption Expected: 11/01/2024, Expires: 01/31/2025 [facility] Comment on above: Expected: 11/01/2024, Expires: Start: 10-29-2024 End: 10-29-2024 Patient encounter procedure 10/29/2024 11:00 AM EDT Appointment Radiology [address] [place] [address] Dysphagia, unspecified type [R13.10] Radiology Comment on above: Dysphagia, unspecified type [R13.10] Start: 10-27-2024 End: 01-26-2025 DAWOOD BY IFA WITH REFLEX [facility] Comment on above: Expected: 10/27/2024, Expires: Start: 10-27-2024 End: 01-26-2025 BLOOD TB SCREEN [facility] Comment on above: Expected: 10/27/2024, Expires: Start: 10-27-2024 End: 01-26-2025 Cyclic citrullinated peptide IgG Ab [Units/volume] in Serum or Plasma [facility] Work Phone: Comment on above: Expected: 10/27/2024, Expires: Start: 10-27-2024 End: 01-26-2025 Extractable nuclear Ab panel - Serum [facility] [facility] Comment on above: Expected: 10/27/2024, Expires: Start: 10-27-2024 End: 10-27-2024 Patient encounter procedure 10/27/2024 10:45 AM EDT Office Visit Rheumatology [address] [id number] Eugene Del Castillo MD [address] [place], [place] [id number] [facility] Comment on above: RA Start: 10-26-2024 End: 01-25-2025 ALGN RESP DISEASE PROF REG 5 [facility] Comment on above: Expected: 10/26/2024, Expires: Start: 10-26-2024 End: 01-25-2025 ALPHA 1 ANTITRYP PHEN/GENOTYPE [facility] Work Phone: Comment on above: Expected: 10/26/2024, Expires: Start: 10-26-2024 End: 10-26-2024 Patient encounter procedure 10/26/2024 11:45 AM EDT Office Visit Otolaryngology [address] [facility] [place] [address] Josephine Rosas PA-C [address] [place] [address] eval for possible inducable laryngeal obstruction Otolaryngology Comment on above: eval for possible inducable laryngeal ob struction Start: 10-04-2024 End: 10-04-2024 Patient encounter procedure 10/04/2024 2:40 PM EST Office Visit [facility] [address] [place] [phone] Joe Valderrama MD [address] [facility] [address] [id number] [facility] Start: 09-02-2024 Comprehensive metabolic 2000 panel - Serum or Plasma [facility] Start: 09-02-2024 [facility] Start: 09-01-2024 End: 09-01-2024 Patient encounter procedure 09/01/2024 9:00 AM EST Office Visit [facility] [address] [place] [phone] Jose Harrison MD [address] [place] [address] [facility] Start: 09-01-2024 [facility] Start: 09-01-2024 Duplex scan of lower limb veins US venous duplex LE BI [facility] Start: 09-01-2024 US Lower extremity vein - bilateral [facility] Start: 09-01-2024 Consultation [facility] Start: 09-01-2024 Hospital admission [facility] Start: 08-30-2024 Aerobic Culture Aerobic Culture [facility] Start: 08-30-2024 Aerobic microbial culture Aerobic Culture [facility] Start: 08-20-2024 End: 08-20-2024 Patient encounter procedure Gastroenterology Comment on above: GASTRIC ISSUES Start: 08-17-2024 [facility] Start: 08-16-2024 End: 08-16-2024 [facility] Start: 08-15-2024 [facility] Start: 08-14-2024 End: 08-14-2024 [facility] Start: 08-13-2024 Hospital admission [facility] Start: 08-13-2024 End: 08-13-2024 [facility] Start: 08-11-2024 Medicare Advantage Annual Wellness Visit Medicare Advantage Annual Wellness Visit [facility] Start: 07-23-2024 [facility] Start: 07-20-2024 Hospital admission [facility] Start: 07-05-2024 End: 07-05-2024 Patient encounter procedure 07/05/2024 2:40 PM EST Office Visit [facility] [address] [place] [address] Joe Valderrama MD [address] [facility] [address] [place] [id number] [facility] Start: 06-30-2024 End: 06-30-2024 Procedure Pulmonary Medicine Comment on above: asthma and cd, sometimes can't breath an d has been to the ER many times, cough, affecting bowels and bladder - loses control when couching, lungs won't open wide enough for to breathe in with cpap machine. pre-testing - orders pended asthma and cd, somet imes can't breath and has been to the ER many times, cough, affecting bowels and bladder - loses control when couching, lungs won't open wide enough for to breathe in with cpap machine pre-testing - orders pended Start: 06-01-2024 [facility] Start: 06-01-[address] [facility] Work Phone: Start: 04-28-2024 Consultation [facility] Start: 04-28-2024 Hospital admission [facility] Start: 04-11-2024 Covid-19 Vaccine ( season) Covid-19 Vaccine ( season) [facility] Start: 04-11-2024 Influenza vaccination Influenza Vaccine (#1) [facility] Start: 04-08-2024 End: 04-08-2024 Patient encounter procedure 04/08/2024 9:00 AM EDT Office Visit [facility] [address] [place] [phone] Jose Harrison MD [address] [place] [address] [facility] Start: 04-01-2024 End: 03-31-2025 MR Brain WO and W contrast IV MR brain w and wo contrast routine Imaging Routine Oropharyngeal dysphagia Spastic hemiplegia affecting right dominant side, unspecified etiology (CMS/HCC) Expected: 04/01/2024 (Approximate), Expires: 03/31/2025 [facility] Work Phone: Comment on above: Expected: 04/01/2024 (Approximate), Expi res: 03/31/2025 Start: 03-31-2024 End: 03-31-2024 Patient encounter procedure 03/31/2024 2:20 PM EDT Office Visit [facility] [address] [place] [address] Joe Valderrama MD [address] [facility] [address] [place] [phone] Arrived [facility] Comment on above: Arrived Start: 02-23-2024 Bacteria identified in Urine by Culture [facility] Start: 02-10-2024 Hepatitis B core antibody measurement [facility] Start: 02-10-2024 [facility] Start: 12-25-2023 End: 12-25-2023 Patient encounter procedure 12/25/2023 9:00 AM EDT Office Visit [facility] [address] [place] [address] Joe Valderrama MD [address] [facility] [address] [place] [phone] [facility] Start: 10-30-2023 Bacteria identified in Urine by Culture [facility] Start: 10-09-2023 End: 10-09-2023 Patient encounter procedure 10/09/2023 9:00 AM EST Office Visit [facility] [address] [place] [address] Jose Harrison MD [address] [place] [address] [facility] Start: 09-22-2023 End: 09-22-2024 MR Lumbar spine WO contrast MR lumbar spine wo contrast Imaging Routine Lumbosacral radiculopathy at L5 Numbness and tingling Expected: 09/22/2023, Expires: 09/22/2024 [facility] Work Phone: Comment on above: Expected: 09/22/2023, Expires: Start: 06-02-2023 Blood chemistry [facility] Start: 06-02-2023 End: 06-02-2023 [facility] Start: 06-02-2023 Hospital admission [facility] Start: 06-02-2023 Referral to studio designer [facility] Start: 06-02-2023 [facility] Start: 06-01-2023 Computed tomography of abdomen and pelvis with contrast CT abdomen pelvis w con [facility] Start: 06-01-2023 CT Abdomen and Pelvis W contrast IV [facility] Start: 06-01-2023 CT of head without contrast CT head/brain wo con [facility] Start: 06-01-2023 CT Unspecified body region WO contrast [facility] Start: 06-01-2023 Plain chest X-ray XR chest 2V* [facility] Start: 06-01-2023 XR Chest 2 Views [facility] Start: 12-03-2022 Urine microalbumin profile DTaP,Tdap,Td Vaccine (2 - Td or Tdap) [facility] Start: 05-07-2022 End: 07-07-2022 ACETYLCHO R MOD AB [facility] Work Phone: Comment on above: Expected: 05/07/2022, Expires: Start: 05-07-2022 End: 07-07-2022 ACETYLCHOLINE REC BINDING AB [facility] Work Phone: Comment on above: Expected: 05/07/2022, Expires: 2 Start: 05-07-2022 End: 07-07-2022 ACETYLCHOLINE REC BLOCKING AB [facility] Work Phone: Comment on above: Expected: 05/07/2022, Expires: 2 Start: 05-07-2022 End: 07-07-2022 Methylmalonate [Moles/volume] in Serum or Plasma [facility] Work Phone: Comment on above: Expected: 05/07/2022, Expires: 2 Start: 05-07-2022 End: 07-07-2022 MUSK ANTIBODY TEST [facility] Work Phone: Comment on above: Expected: 05/07/2022, Expires: 2 Start: 04-11-2022 Influenza vaccination INFLUENZA (#1) [facility] Start: 08-11-2021 DEPRESSION ASSESSMENT DEPRESSION ASSESSMENT [facility] Start: 04-11-2021 Influenza vaccination [facility] ([facility]ed) [facility] Start: 2020 Screening for malignant neoplasm of colon [facility] Start: 2020 SHINGRIX VACCINE (1 of 2) SHINGRIX VACCINE (1 of 2) [facility] Start: 05-10-2017 Pneumococcal Vaccine: 50+ (2 of 2 - PPSV23) Pneumococcal Vaccine: 50+ (2 of 2 - PPSV23) [facility] Start: 2015 COLOGUARD (FIT-DNA) COLOGUARD (FIT-DNA) [facility] Start: 2015 Colonoscopy COLONOSCOPY [facility] Start: 2015 COLORECTAL CANCER SCREENING COLORECTAL CANCER SCREENING [facility] Start: [address] COLONOGRAPHY [facility] Start: 2015 DIABETES SCREEN DIABETES SCREEN [facility] Start: 2015 Diabetes Screening Diabetes Screening [facility] Start: 2015 FECAL OCCULT BLOOD FECAL OCCULT BLOOD [facility] Start: 2015 Lipid panel Lipid Screening [facility] Start: 2015 LIPID SCREEN LIPID SCREEN [facility] Start: 2015 Screening for malignant neoplasm of colon [facility] Start: 2015 SIGMOIDOSCOPY SIGMOIDOSCOPY [facility] Start: 2010 Mammography MAMMOGRAM [facility] Start: 2010 Screening for malignant neoplasm of breast Mammogram Screening [facility] Start: 2000 HPV TESTING HPV TESTING [facility] Start: 2000 Zoledronic acid therapy Alpha-1 Antitrypsin Deficiency Screening [facility] Start: 1991 PAP TESTING PAP TESTING [facility] Start: 1991 Screening for malignant neoplasm of cervix Cervical Cancer Screening [facility] Start: 1989 Hepatitis B Vaccine (1 of 3 - 19+ 3-dose series) Hepatitis B Vaccine (1 of 3 - 19+ 3-dose series) [facility] Start: 1989 Urine microalbumin profile DTAP,TDAP,TD (1 - Tdap) [facility] Start: 1988 Annual PCP Team Chronic Disease Visit Annual PCP Team Chronic Disease Visit [facility] Start: 1988 Anxiety Screening Anxiety Screening [facility] Start: 1988 BP Controlled (<130/80) BP Controlled (<130/80) [facility] Start: 1988 Depression Screening Depression Screening [facility] Start: 1988 HEPATITIS C SCREENING HEPATITIS C SCREENING [facility] Start: 1988 Hepatitis C screening Hepatitis C Screening [facility] Start: 1988 HIV SCREENING HIV SCREENING [facility] Start: 1988 HIV screening HIV Screening [facility] Start: 1982 Adult depression screening assessment DEPRESSION SCREENING [facility] Start: 01-20-1971 COVID-19 VACCINE (#1) COVID-19 VACCINE (#1) [facility] Start: 1970 HEPATITIS B (1 of 3 - 3-dose series) HEPATITIS B (1 of 3 - 3-dose series) [facility] Albumin [Mass/volume ] in Serum or Plasma [facility] Albumin/Globulin ratio [facility] Alpha 1 antitrypsin [Mass/volume] in Serum or Plasma [facility] Anion gap measurement [facility] Bacteria identified in Unspecified specimen by Aerobe culture [facility] Basophils [#/volume] in Blood by Automated count [facility] Basophils/100 leukocytes in Blood by Automated count [facility] Calculated LDL cholesterol level [facility] Cholesterol.total/Ch ol esterol in HDL [Mass Ratio] in Serum or Plasma [facility] End: 03-25-2026 CT Chest WO contrast CT CHEST WO IVCON Radiology Routine Interstitial pulmonary disease (HCC) 1 Occurrences starting 02/23/2025 until 03/25/2026 [facility] Work Phone: Comment on above: 1 Occurrences starting 02/23/2025 until 03/25/2026 End: 11-18-2025 EGD DIAGNOSTIC EGD DIAGNOSTIC Endoscopy Routine Dyspepsia and disorder of function of stomach 1 Occurrences starting 11/18/2024 until 11/18/2025 [facility] Work Phone: Comment on above: 1 Occurrences starting 11/18/2024 until 11/18/2025 Electrophoresis: [id number] [facility] Electrophoresis: [id number] [facility] Electrophoresis: beta-globulin [facility] Electrophoresis: chau ma globulin [facility] Eosinophils [#/volum e] in Blood [facility] Eosinophils/100 leukocytes in Blood by Automated count [facility] Erythrocyte distribution width [Ratio] by Automated count [facility] Erythrocytes [#/volume] in Blood [facility] Fibrin D-dimer [Presence] in Platelet poor plasma by Latex agglutination [facility] Globulin [Mass/volum e] in Serum [facility] Glucose measurement estimated from glycated hemoglobin [facility] Hematocrit [Volume Fraction] of Blood [facility] Hemoglobin [Mass/volume] in Blood [facility] Hemoglobin A1c/Hemoglobin.total in Blood [facility] Hepatitis B virus surface Ab [Presence] in Serum [facility] Hepatitis B virus surface Ag [Presence] in Serum or Plasma by Immunoassay [facility] Hepatitis C virus Ig G Ab [Presence] in Serum or Plasma by Immunoassay [facility] Influenza virus A an d B and SARS-CoV-2 (COVID-19) and Respiratory syncytial virus RNA [facility] Interferon gamma assay [facility] Leukocytes [#/volume ] corrected for nucleated erythrocytes in Blood by Automated coun [facility] Leukocytes [#/volume ] in Blood [facility] Liver ultrasound attenuation by transient elastography DDI VIBRATION CONTROLLED TRANSIENT ELASTOGRAPHY (VCTE) Endoscopy Routine Fatty liver Ordered: 11/18/2024 [facility] Comment on above: Ordered: 11/18/2024 End: 03-25-2026 LUNG DIFFUSION CAPACITY (DLCO) LUNG DIFFUSION CAPACITY (DLCO) PFT Routine Severe persistent asthma without complication (HCC) 1 Occurrences starting 02/23/2025 until 03/25/2026 [facility] Comment on above: 1 Occurrences starting 02/23/2025 until 03/25/2026 End: 03-25-2026 LUNG VOLUMES LUNG VOLUMES PFT Routine Severe persistent asthma without complication (HCC) 1 Occurrences starting 02/23/2025 until 03/25/2026 [facility] Comment on above: 1 Occurrences starting 02/23/2025 until 03/25/2026 Lymphocytes [#/volum e] in Blood by Automated count [facility] Lymphocytes/100 leukocytes in Blood by Automated count [facility] MCH [Entitic mass] b y Automated count [facility] MCHC [Mass/volume] b y Automated count [facility] MCV [Entitic volume] by Automated count [facility] Monocytes [#/volume] in Blood by Automated count [facility] Monocytes/100 leukocytes in Blood by Automated count [facility] Mycobacterium tuberculosis stimulated gamma interferon [Interpretation] in Blood Qualitative [facility] Mycobacterium tuberculosis stimulated gamma interferon release by CD4+ and CD8+ T-cells [Units/volume] corrected for background in Blood [facility] Mycobacterium tuberculosis tuberculin stimulated gamma interferon [Presence] in Blood [facility] Neutrophils [#/volum e] in Blood by Automated count [facility] Neutrophils/100 leukocytes in Blood by Automated count [facility] End: 07-02-2025 NITRIC OXIDE, EXHALED NITRIC OXIDE, EXHALED PFT Routine Severe persistent asthma, unspecified whether complicated 1 Occurrences starting 06/08/2024 until 07/02/2025 [facility] Work Phone: Comment on above: 1 Occurrences starting 06/08/2024 until 07/02/2025 End: 10-09-2025 NITRIC OXIDE, EXHALED NITRIC OXIDE, EXHALED PFT Routine Moderate persistent asthma, unspecified whether complicated 1 Occurrences starting 09/09/2024 until 10/09/2025 [facility] Comment on above: 1 Occurrences starting 09/09/2024 until 10/09/2025 Nucleated erythrocyt es [Presence] in Blood by Automated count [facility] Patient Education [facility] Work Phone: Patient referral [facility] Work Phone: Platelet mean volume [Entitic volume] in Blood by Automated count [facility] Platelets [#/volume] in Blood [facility] Protein [Mass/volume ] in Serum or Plasma [facility] End: 11-25-2025 RF videography Hypopharynx and Esophagus Views W liquid and paste contrast PO during swallowing XR MODIFIED BARIUM SWALLOW W SPEECH THERAPY Radiology Routine Dysphagia, unspecified type 1 Occurrences starting 10/26/2024 until 11/25/2025 [facility] Work Phone: Comment on above: 1 Occurrences starting 10/26/2024 until 11/25/2025 End: 11-18-2025 Screening colonoscopy COLONOSCOPY SCREENING Endoscopy Routine Personal history of adenomatous and serrated colon polyps 1 Occurrences starting 11/18/2024 until 11/18/2025 [facility] Comment on above: 1 Occurrences starting 11/18/2024 until 11/18/2025 Abbott extractable nuclear Ab [Units/volume] in Serum [facility] End: 07-02-2025 SPIROMETRY - BASELINE AND POST DILATOR SPIROMETRY - BASELINE AND POST DILATOR PFT Routine Severe persistent asthma, unspecified whether complicated 1 Occurrences starting 06/08/2024 until 07/02/2025 [facility] Comment on above: 1 Occurrences starting 06/08/2024 until 07/02/2025 SPIROMETRY - BASELIN E AND POST DILATOR SPIROMETRY - BASELINE AND POST DILATOR PFT Routine Severe persistent asthma, unspecified whether complicated 06/30/2024 7:55 AM EST [facility] Work Phone: End: 03-25-2026 SPIROMETRY - BASELINE AND POST DILATOR SPIROMETRY - BASELINE AND POST DILATOR PFT Routine Severe persistent asthma without complication (HCC) 1 Occurrences starting 02/23/2025 until 03/25/2026 [facility] Comment on above: 1 Occurrences starting 02/23/2025 until 03/25/2026 End: 10-09-2025 SPIROMETRY WITH DILATOR IF OBSTRUCTED SPIROMETRY WITH DILATOR IF OBSTRUCTED PFT Routine Moderate persistent asthma, unspecified whether complicated 1 Occurrences starting 09/09/2024 until 10/09/2025 [facility] Work Phone: Comment on above: 1 Occurrences starting 09/09/2024 until 10/09/2025 SPIROMETRY WITH DILATOR IF OBSTRUCTED SPIROMETRY WITH DILATOR IF OBSTRUCTED PFT Routine Moderate persistent asthma, unspecified whether complicated 10/26/2024 2:29 PM EDT [facility] Work Phone: Tissue Pathology biopsy report [facility] Work Phone: Comment on above: Release Upon Ordering for 1 Occurrences starting 12/09/2024, 1 completed End: 12-18-2025 US Abdomen RUQ US ABD RIGHT UPPER QUADRANT Radiology Routine Fatty liver 1 Occurrences starting 11/18/2024 until 12/18/2025 [facility] Comment on above: 1 Occurrences starting 11/18/2024 until 12/18/2025 VLDL cholesterol measurement [facility] End: 11-26-2025 XR Ankle - bilateral AP and Lateral and oblique XR ANKLE GENERAL 3V AP/LAT/OBL BILATERAL Radiology Routine Polyarthralgia Severe persistent asthma, unspecified whether complicated Rash and nonspecific skin eruption 1 Occurrences starting 10/27/2024 until 11/26/2025 [facility] Comment on above: 1 Occurrences starting 10/27/2024 until 11/26/2025 XR Ankle - bilateral AP and Lateral and oblique XR ANKLE GENERAL 3V AP/LAT/OBL BILATERAL Radiology Routine Polyarthralgia Severe persistent asthma, unspecified whether complicated Rash and nonspecific skin eruption 10/27/2024 1:54 PM EDT [facility] End: 11-25-2025 XR Esophagus Views W contrast PO XR ESOPHAGRAM Radiology Routine Dysphagia, unspecified type 1 Occurrences starting 10/26/2024 until 11/25/2025 [facility] Comment on above: 1 Occurrences starting 10/26/2024 until 11/25/2025 End: 11-26-2025 XR Foot - bilateral AP XR FOOT SURVEY ARTHRITIS 1V AP BILATERAL Radiology Routine Polyarthralgia Severe persistent asthma, unspecified whether complicated Rash and nonspecific skin eruption 1 Occurrences starting 10/27/2024 until 11/26/2025 [facility] Comment on above: 1 Occurrences starting 10/27/2024 until 11/26/2025 XR Foot - bilateral AP XR FOOT S URVEY ARTHRITIS 1V AP BILATERAL Radiology Routine Polyarthralgia Severe persistent asthma, unspecified whether complicated Rash and nonspecific skin eruption 10/27/2024 1:54 PM EDT [facility] End: 11-26-2025 XR Hand - bilateral PA XR HAND/WRIST SURVEY ARTHRITIS 1V PA BILATERAL Radiology Routine Polyarthralgia Severe persistent asthma, unspecified whether complicated Rash and nonspecific skin eruption 1 Occurrences starting 10/27/2024 until 11/26/2025 [facility] Comment on above: 1 Occurrences starting 10/27/2024 until 11/26/2025 XR Hand - bilateral PA XR HAND/W RIST SURVEY ARTHRITIS 1V PA BILATERAL Radiology Routine Polyarthralgia Severe persistent asthma, unspecified whether complicated Rash and nonspecific skin eruption 10/27/2024 1:54 PM EDT [facility] End: 11-26-2025 XR HIP BILATERAL 5V PEL/AP/LAT EACH HIP XR HIP BILATERAL 5V PEL/AP/LAT EACH HIP Radiology Routine Polyarthralgia Severe persistent asthma, unspecified whether complicated Rash and nonspecific skin eruption 1 Occurrences starting 10/27/2024 until 11/26/2025 [facility] Comment on above: 1 Occurrences starting 10/27/2024 until 11/26/2025 XR HIP BILATERAL 5V PEL/AP/LAT EACH HIP XR HIP BILATERAL 5V PEL/AP/LAT EACH HIP Radiology Routine Polyarthralgia Severe persistent asthma, unspecified whether complicated Rash and nonspecific skin eruption 10/27/2024 1:54 PM EDT [facility] End: 11-26-2025 XR Knee - bilateral 4 Views XR KNEE GENERAL 4V AP BOTH/PA BOTH/LAT/MERC BILATERAL Radiology Routine Polyarthralgia Severe persistent asthma, unspecified whether complicated Rash and nonspecific skin eruption 1 Occurrences starting 10/27/2024 until 11/26/2025 [facility] Comment on above: 1 Occurrences starting 10/27/2024 until 11/26/2025 XR Knee - bilateral 4 Views XR KNEE GENERAL 4V AP BOTH/PA BOTH/LAT/MERC BILATERAL Radiology Routine Polyarthralgia Severe persistent asthma, unspecified whether complicated Rash and nonspecific skin eruption 10/27/2024 1:54 PM EDT [facility] End: 11-26-2025 XR Lumbar spine 3 Views XR LUMBAR GENERAL 3V AP/LAT/L5-S1 Radiology Routine Polyarthralgia Severe persistent asthma, unspecified whether complicated Rash and nonspecific skin eruption 1 Occurrences starting 10/27/2024 until 11/26/2025 [facility] Comment on above: 1 Occurrences starting 10/27/2024 until 11/26/2025 XR Lumbar spine 3 Views XR LUMBAR GENERAL 3V AP/LAT/L5-S1 Radiology Routine Polyarthralgia Severe persistent asthma, unspecified whether complicated Rash and nonspecific skin eruption 10/27/2024 1:54 PM EDT [facility] XR Lumbar spine Views [facility] Immunizations Immunization Date Immunization Notes Care Provider [facility] 09-09-2024 pneumococcal conjugate (PCV20) vaccine, 20 valent (PREVNAR 20) Sheeba Griffith MD Work Phone: [facility] 08-15-2024 influenza, seasonal, injectable, preservative free Services [facility] Work Phone: [facility] 08-15-2024 influenza virus vaccine, unspecified formulation Eugene Del Castillo MD Work Phone: [facility] 06-03-2023 influenza, injectable, quadrivalent, preservative free Services [facility] Work Phone: [facility] 06-03-2023 influenza virus vaccine, unspecified formulation Pulm 3 [facility] 05-19-2020 influenza virus vaccine, unspecified formulation Asad Bhatt [facility] 05-19-2020 influenza, injectable, quadrivalent, preservative free Joe Valderrama MD Work Phone: [facility] 05-11-2019 influenza virus vaccine, unspecified formulation Asad Bhatt [facility] 05-11-2019 influenza, seasonal, injectable Joe Valderrama MD Work Phone: [facility] 05-13-2018 influenza virus vaccine, unspecified formulation Asad Bhatt [facility] 05-13-2018 influenza, injectable, quadrivalent, preservative free Joe Valderrama MD Work Phone: [facility] 05-10-2017 Influenza, [place], unspecified formulation Sheeba Griffith MD Work Phone: [facility] 05-10-2017 influenza, unspecified formulation Asad Bhatt [facility] 05-10-2017 influenza virus vaccine, unspecified formulation Joe Valderrama MD Work Phone: [facility] 03-15-2017 influenza virus vaccine, unspecified formulation Asad Bhatt [facility] 03-15-2017 influenza, injectable, quadrivalent, preservative free Joe Valderrama MD Work Phone: [facility] 03-15-2017 pneumococcal conjugate vaccine, 13 valent Asad Bhatt [facility] 04-08-2016 influenza virus vaccine, unspecified formulation Asad Bhatt [facility] 04-08-2016 influenza, seasonal, injectable, preservative free Joe Valderrama MD Work Phone: [facility] 12-03-2012 tetanus toxoid, reduced diphtheria toxoid, and acellular pertussis vaccine, adsorbed Joe Valderrama MD Work Phone: [facility] NEGATED: Highlighted row has not occurred!09-09-2024 respiratory syncytial virus (RSV) vaccine, bivalent (ABRYSVO) Sheeba Griffith MD Work Phone: [facility] Comment on above: Deferred: Patient Re fused Payers Date Payer Category Payer Medicare [id number] 2024 Self-pay [id number] 2023 Medicare (Managed Care) 1.2. [id number] 2023 Medicare [id number] 2021 Unknown [id number] 2019 Medicare [id number] 2010 [place] [id number] 2010-2012 Medicaid [id number] 2010 Unknown ANTHEM BLUE CROS S AND BLUE SHIELD ZZZ[facility]HEM MEDIBLUE ACCESS REGIONAL [id number] 2010-2019 [facility] [id number] .[id number] 1970 Unknown [id number] 2.16.840.1.687184.3.579.2.5 93 1970 Unknown [id number] 2.16.840.1.023319.3.579.2.5 93 1970 Unknown [id number] 2.16.840.1.702012.3.579.2.5 93 1970 Unknown [id number] 2.16.840.1.357298.3.579.2.5 93 1970 Unknown [id number] 2.16.840.1.909885.3.579.2.5 93 1970 Unknown [id number] 2.16.840.1.452265.3.579.2.5 93 1970 Unknown [id number] 2.16.840.1.828774.3.579.2.5 93 1970 Unknown [id number] 2.16.840.1.738836.3.579.2.5 93 1970 Unknown [id number] 2.16.840.1.532506.3.579.2.5 93 1970 Unknown [id number] 2.16.840.1.441730.3.579.2.5 93 1970 Unknown [id number] 2.16.840.1.190026.3.579.2.5 93 1970 Unknown [id number] 2.16.840.1.031286.3.579.2.7 27 1970 Unknown [id number] 2.16.840.1.708732.3.579.2.7 27 1970 Unknown [id number] 2.16.840.1.071478.3.579.2.7 27 1970 Unknown [id number] 2.16.840.1.825755.3.579.2.7 18 1970 Unknown [id number] 2.16.840.1.814005.3.579.2.1 259 1970 Unknown [id number] 2.16.840.1.157627.3.579.2.1 259 1970 Unknown [id number] 2.16.840.1.359562.3.579.2.1 259 1970 Unknown [id number] 2.16.840.1.531818.3.579.2.1 259 1970 Unknown [id number] 2.16.840.1.554809.3.579.2.1 259 1959 Unknown [id number] Medicaid Medicaid [id number] Medicare [place] [facility] PFFS [id number] Unknown Unknown [id number] 2.16.840.1.300711.3.579.2.5 31 Unknown [id number] 2.16.840.1.428927.3.579.2.5 31 Unknown [id number] 2.16.840.1.016746.3.579.2.5 31 Unknown [id number] 2.16.840.1.271063.3.579.2.5 31 Unknown [id number] 2.16.840.1.202398.3.579.2.5 31 Unknown [id number] 2.16.840.1.429474.3.579.2.5 31 Unknown [id number] 2.16.840.1.668088.3.579.2.5 31 Unknown [id number] 2.16.840.1.022170.3.579.2.5 31 Unknown [id number] 2.16.840.1.750739.3.579.2.5 31 Unknown [id number] 2.16.840.1.553269.3.579.2.5 31 Unknown [id number] 2.16.840.1.722572.3.579.2.5 31 Unknown [id number] 2.16.840.1.117944.3.579.2.5 31 Unknown [id number] 2.16.840.1.423884.3.579.2.5 31 Unknown [id number] 2.16.840.1.955932.3.579.2.5 31 Unknown [id number] 2.16.840.1.935397.3.579.2.5 31 Unknown [id number] 2.16.840.1.353514.3.579.2.5 31 Unknown [id number] 2.16.840.1.602379.3.579.2.5 31 Social History Date Type Detail Facility Start: 10-30-2007 End: 09-01-2024 Tobacco smoking status NHIS Former smoker [facility] Work Phone: End: 04-01-2007 History of tobacco use Current smoker [facility] Start: 10-30-2007 End: 02-23-2025 Alcohol intake Current non-drinker of alcohol (finding) [facility] Start: 1970 Sex Assigned At Not on file [facility] End: 04-01-2007 History of tobacco use Cigarette Smoker [facility] Start: 1970 Sex Assigned At Female [facility] Start: 04-27-2022 End: 05-07-2022 Exposure to SARS-CoV-2 (event) Not sure [facility] Tobacco smoking status Never [facility] Start: 09-22-2023 End: 06-24-2024 Sex Assigned At Female [facility] Start: 01-30-2023 Tobacco use and exposure Smokeless tobacco non-user [facility] Start: 09-22-2023 End: 07-05-2024 Alcohol intake Lifetime non-drinker (finding) [facility] Start: 09-22-2023 End: 06-24-2024 History of Social function [facility] Start: 01-21-2022 Gender identity Identifies as female gender (finding) [facility] Start: 01-21-2022 Sexual orientation Heterosexual (fin ding) [facility] History of tobacco use Passive smoker [facility] Start: 06-30-2024 Tobacco use and exposure User of smokeless tobacco [facility] Start: 10-08-2023 Alcohol Comment Caffeine intake: non e [facility] Start: 08-13-2024 End: 12-11-2024 Sex Female (finding) [facility] NEGATED: Highlighted row [facility] Goals Date Patient Goal Desired Activity /State Functional Status Date Assessment Result Facility 08-16-2024 Functional status Patient at Baseline [facility] Work Phone: 07-23-2024 Functional status Patient at Baseline [facility] Work Phone: 07-02-2024 Are you deaf, or do you have serious difficulty hearing No 07/02/2024 11:09 AM Kaycee Fang RN No [facility] 07-02-2024 Are you blind, or do you have serious difficulty seeing, even when wearing glasses No 07/02/2024 11:09 AM Kaycee Fang RN No [facility] 07-02-2024 Do you have serious difficulty walking or climbing stairs Yes 07/02/2024 11:09 AM Kaycee Fang, HERMILO Yes [facility] 07-02-2024 Do you have difficul ty dressing or bathing No 07/02/2024 11:09 AM Kaycee Fang RN No [facility] 07-02-2024 Because of a physica l, mental, or emotional condition, do you have difficulty doing errands alone such as visiting a physician's office or shopping No 07/02/2024 11:09 AM Kaycee Fang RN No [facility] 01-14-2023 Functional Status N/A [facility] Mental Status Date Assessment Result Facility 08-16-2024 Cognitive function Cognitive Sta tus Patient at Baseline [facility] Work Phone: 07-23-2024 Cognitive function Cognitive Sta tus Patient at Baseline [facility] Work Phone: 07-02-2024 Because of a physica l, mental, or emotional condition, do you have serious difficulty concentrating, remembering, or making decisions No 07/02/2024 11:09 AM Kaycee Fang RN No [facility] Clinical Notes 02-20-2011 to 03-07-2025 Pina Abbott RN - 03/07/2025 10:16 AM EDT Note Date & Type Note Facility 03-07-2025 Note [facility] 03-07-2025 History of Present illness Narrative New Patient/Consult REASON FOR VISIT Meredith Chaidez is a 54 year old female who is scheduled for dysphagia at the consult request of . XR ESOPHAGRAM 02/28/2025 IMPRESSION: SMALL HIATAL HERNIA, TYPE I. XR MODIFIED BARIUM SWALLOW w ST 02/28/2025 Impression: Evidence of: Oropharyngeal dysphagia, Mild; characterized by impaired dentition, dry mouth, delayed onset of swallowing, mildly prominent cricopharyngeus, inconsistent laryngeal closure while swallowing. Concern for possible esophageal impairment: observed esophageal retention of food in thoracic esophagus, resulting in stuck sensation. Retention cleared to stomach with liquid was resulting in relief. An elevated risk for aspiration: Observed transient laryngeal penetration of liquid while swallowing consecutive sips. No aspiration observed. Swallow Efficiency: Preserved EGD & COL 12/09/2024 Impression: - LA Grade A reflux esophagitis with no bleeding. Biopsied. - Small hiatal hernia. - A few gastric polyps. Resected and retrieved. - Gastritis, characterized by congestion (edema) and erythema. Biopsied. - Normal examined duodenum. Impression: - The examined portion of the ileum was normal. - Two small (4-6 mm) polyps in the ascending colon, removed with a cold snare. Resected and retrieved. - Two diminutive (1-3 mm) polyps at the recto-sigmoid colon, removed with a jumbo cold forceps. Resected and retrieved. - Diverticulosis in the sigmoid colon. FINAL DIAGNOSIS A. Stomach, biopsy: - Reactive gastropathy with intestinal metaplasia. - Negative for dysplasia. B. Stomach, polyp, biopsy: - Fundic gland polyp. - Negative for dysplasia. C. Esophagus, biopsy: - Squamocolumnar junctional mucosa (cardia and corpus-type) with mild active and chronic inflammation. - No intestinal metaplasia identified. D. Colon, ascending, polyps x 2, biopsy: - Tubular adenomas. E. Colon, rectosigmoid, polyps x 2, biopsy: - Hyperplastic polyps. US ABD RIGHT UPPER QUAD 11/22/2024 IMPRESSION: Hepatic steatosis. documented in this encounter [facility] 03-07-2025 Note [facility] 03-03-2025 Evaluation note Diagnosis Onset Date Resolution Lumbar radiculopathy, chronic acute March 03, 2025 2:39pm [facility] Work Phone: 1(444) 548-420207-23-2025 Telephone encounter Note* Telephone Encounter - Magali Abreu - 03/02/2025 9:32 AM EDT Patient called to reschedule appointment due to illness [facility]07-23-2025 Miscellaneous Notes* Telephone Encounter - Magali Abreu - 03/02/2025 9:32 AM EDT Patient called to reschedule appointment due to illness [facility] NoteHNO ID: [id number] Author: EDUIN MONTANEZ [facility]3]-PROPERTY OFFICER Service: ? Author Type: Speech Language Pathologist Type: Progress Notes Filed: 02/28/2025 16:06 Note Text: Episode Visit Count: 1 Start of Care Date: 02/28/25 Onset Date: 02/23/25 Patient Identified by Name and Date of : Yes [facility] MODIFIED BARIUM SWALLOW PLAN OF CARE: Impression: Evidence of: Oropharyngeal dysphagia, Mild; characterized by impaired dentition, dry mouth, delayed onset of swallowing, mildly prominent cricopharyngeus, inconsistent laryngeal closure while swallowing. Concern for possible esophageal impairment: observed esophageal retention of food in thoracic esophagus, resulting in stuck sensation. Retention cleared to stomach with liquid was resulting in relief. An elevated risk for aspiration: Observed transient laryngeal penetration of liquid while swallowing consecutive sips. No aspiration observed. Swallow Efficiency: Preserved RECOMMENDATION: Diet Recommendations: Regular Consistency, Thin Liquids IDDSI Level 0 PROPERTY OFFICER Swallowing Precautions Recommendations: Alternate bites and sips, Anti-Reflux precautions, Feed / Eat at a slow rate, Limit Distractions, Maintain an upright position 20-30 minutes following all oral intake, Sit upright 90 degrees for all PO, Small Bite/Sip, Rigid Oral Hygiene PROPERTY OFFICER Recommendations: Diet, Swallowing Precautions Results and Recommendations Discussed With: Patient Goals for Modified Barium Swallow: created for 02/28/2025 only. The patient will be able to demonstrate adequate return of knowledge of today's fluoroscopic assessment and recommendations to maximize overall safety with oral intake. (baseline = no knowledge). Met. Planned Interventions, Frequency, and Duration: Current Frequency: Discontinue Therapy Services SUBJECTIVE: Meredith Chaidez is a 54 year old female seen today for a Modified Barium Swallow (MBS) Study. Patient reports dysphagia stating I've choked almost to and I have poured water straight into my lungs resulting in getting the heimlich. Had the heimlich a second time due to choking on chicken. Endorses s/s of reflux, dry mouth, voice change, and stuck sensation Past Relevant Medical Conditions: GERD Patient Goals: assessment Prior Functional Level: Within Functional Limits OBJECTIVE: MEASURES WITH LEVEL OF FUNCTION: Swallow Position Of Patient During Assessment: Upright In Chair, Standing Feeding Method: PROPERTY OFFICER Fed Patient, Patient Self-Fed Response to Swallow Interventions: tolerated procedure well Compensatory Strategies Utilized During Assessment: Alternate bites and sips, Sit upright 90 degrees for all PO Instrumental Swallow Assessment Type: Modified Barium Swallow Study Modified Barium Swallow Views: Lateral position, Anterior-posterior position Barium Consistencies Provided: Thin Liquids IDDSI Level 0, Pureed Solids IDDSI Level 4, Solid, 13mm Barium Tablet Oral Phase: As Follows Lip Closure: No labial escape/anterior loss of bolus Tongue Control During Bolus Hold: Cohesive bolus between tongue to palatal seal Bolus Preparation/Mastication: Slow prolonged mastication with complete re-collection necessary Bolus Transport/Lingual Motion: Delayed initiation of tongue motion for A-P movement of the bolus Oral Residue: Trace residue lining oral structures Initiation Of Pharyngeal Swallow: Bolus head at pit of pyriforms Pharyngeal Phase: As Follows Soft Palate Elevation: No bolus between soft palate/pharyngeal wall Laryngeal Elevation: Complete superior movement of thyroid cartilage with contact of arytenoids to epiglottic petiole Anterior Hyoid Excursion: Complete anterior movement Epiglottic Movement: Complete inversion Laryngeal Vestibular Closure/Height of the Swallow: Incomplete - narrow column of air/contrast in laryngeal vestibule Pharyngeal Stripping Wave: Complete Pharyngeal Contraction (A/P View Only): Complete Pharyngoesophageal Segment Opening: Partial distension/partial duration with partial obstruction of flow of bolus Tongue Base Retraction: Trace column of contrast or air between tongue base and pharyngeal wall Pharyngeal Residue: Trace residue within or on the pharyngeal structures Esophageal Clearance In An Upright Position: Esophageal retention (with food; cleared to stomach with liquid wash) Penetration: During the swallow Penetration With: Thin Liquids IDDSI Level 0 Penetration-Aspiration Scale Level 1-Material does not enter airway : Regular Consistency, Pureed IDDSI Level 4 Level 2-Material enters the airway, remains above the vocal folds,and is ejected from the airway : Thin Liquids IDDSI Level 0 Education: Education Learning Preferences: Explanation Barriers: None Learning/Educational Needs: MBSs results Education Provided: Yes, see treatment interventions for education provided Education Provided To: Patient Education Mod (more content not included)...[facility]07-21-2025 History of Present illness Narrative* Eduin Montanez CCC-PROPERTY OFFICER - 02/28/2025 4:03 PM EDT Episode Visit Count: 1 Start of Care Date: 02/28/25 Onset Date: 02/23/25 Patient Identified by Name and Date of : Yes [facility] MODIFIED BARIUM SWALLOW PLAN OF CARE: Impression: Evidence of: Oropharyngeal dysphagia, Mild; characterized by impaired dentition, dry mouth, delayedonset of swallowing, mildly prominent cricopharyngeus, inconsistent laryngeal closure while swallowing. Concern for possible esophageal impairment: observed esophageal retention of food in thoracic esophagus, resulting in stuck sensation. Retention cleared to stomach with liquid was resulting in relief. An elevated risk for aspiration: Observed transient laryngeal penetration of liquid while swallowing consecutive sips. No aspiration observed. Swallow Efficiency: Preserved RECOMMENDATION: Diet Recommendations: Regular Consistency, Thin Liquids IDDSI Level 0 PROPERTY OFFICER Swallowing Precautions Recommendations: Alternate bites and sips, Anti- Reflux precautions, Feed/ Eat at a slow rate, Limit Distractions, Maintain an upright position 20-30 minutes following all oral intake, Sit upright 90 degrees for all PO, Small Bite/Sip, Rigid Oral Hygiene PROPERTY OFFICER Recommendations: Diet, Swallowing Precautions Results and Recommendations Discussed With: Patient Goals for Modified Barium Swallow: created for 02/28/2025 only. The patient will be able to demonstrate adequate return of knowledge of today's fluoroscopic assessment and recommendations to maximize overall safety with oral intake. (baseline = no knowledge). Met. Planned Interventions, Frequency, and Duration: Current Frequency: Discontinue Therapy Services SUBJECTIVE: Meredith Chaidez is a 54 year old female seen today for a Modified Barium Swallow (MBS) Study. Patient reports dysphagia stating I've choked almost to and I have poured water straight into my lungs resulting in getting the heimlich. Had the heimlich a second time due to choking on chicken. Endorses s/s of reflux, dry mouth, voice change, and stuck sensation Past Relevant Medical Conditions: GERD Patient Goals: assessment Prior Functional Level: Within Functional Limits OBJECTIVE: MEASURES WITH LEVEL OF FUNCTION: Swallow Position Of Patient During Assessment: Upright In Chair, Standing Feeding Method: PROPERTY OFFICER Fed Patient, Patient Self-Fed Response to Swallow Interventions: tolerated procedure well Compensatory Strategies Utilized During Assessment: Alternate bites and sips, Sit upright 90 degrees for all PO Instrumental Swallow Assessment Type: Modified Barium Swallow Study Modified Barium Swallow Views: Lateral position, Anterior-posterior position Barium Consistencies Provided: Thin Liquids IDDSI Level 0, Pureed Solids IDDSI Level 4, Solid, 13mmBarium Tablet Oral Phase: As Follows Lip Closure: No labial escape/anterior loss of bolus Tongue Control During Bolus Hold: Cohesive bolus between tongue to palatal seal Bolus Preparation/Mastication: Slow prolonged mastication with complete re- collection necessary Bolus Transport/Lingual Motion: Delayed initiation of tongue motion for A-P movement of the bolus Oral Residue: Trace residue lining oral structures Initiation Of Pharyngeal Swallow: Bolus head at pit of pyriforms Pharyngeal Phase: As Follows Soft Palate Elevation: No bolus between soft palate/pharyngeal wall Laryngeal Elevation: Complete superior movement of thyroid cartilage with contact of arytenoids to epiglottic petiole Anterior Hyoid Excursion: Complete anterior movement Epiglottic Movement: Complete inversion Laryngeal Vestibular Closure/Height of the Swallow: Incomplete - narrow column of air/contrast in laryngeal vestibule Pharyngeal Stripping Wave: Complete Pharyngeal Contraction (A/P View Only): Complete Pharyngoesophageal Segment Opening: Partial distension/partial duration with partial obstruction offlow of bolus Tongue Base Retraction: Trace column of contrast or air between tongue base and pharyngeal wall Pharyngeal Residue: Trace residue within or on the pharyngeal structures Esophageal Clearance In An Upright Position: Esophageal retention (with food; cleared to stomach with liquid wash) Penetration: During the swallow Penetration With: Thin Liquids IDDSI Level 0 Penetration-Aspiration Scale Level 1-Material does not enter airway : Regular Consistency, Pureed IDDSI Level 4 Level 2-Material enters the airway, remains above the vocal folds,and is ejected from the airway : Thin Liquids IDDSI Level 0 Education: Education Learning Preferences: Explanation Barriers: None Learning/Educational Needs: MBSs results Education Provided: Yes, see treatment interventions for education provided Education Provided To: Patient Education Mode/Type: Explanation/Discussion, Video Response to Education/Teach Back: States/Identifies TREATMENT: Performed Modified Barium Swallowing Study (01748). Evaluation: Modified Barium Swallow Evaluation (45283) Education regarding findings from today's Modified Barium Swallowing study (fluoroscopic study) andsuggested plans for treatment were provided to the patient through verbal / written instruction, images and/or demonstration. Patient was able to demonstrate understanding of education provided this date. Billing: Modified Barium Swallow (27127) Total time: 20 minutes Session Start Time : 1225 Session Stop Time : 1245 Eduin Montanez CCC-PROPERTY OFFICER Electronically signed by Eduin Montanez [facility]3]-PROPERTY OFFICER at 02/28/2025 4:06 PM EDT [facility] Instructions* Patient Instructions* Austin Gordillo MD - 02/23/2025 1:26 PM EDT It was a pleasure to see you today! Thank you for coming to the [facility] for your care. Based on our discussion today: Asymmetrical intermittent numbness and weakness - placed referral neurology. Follow up with rheumatology For difficulty swallowing - referral to GI swallowing center; scheduling your swallow studies prior Follow up with ENT Dr Santana - also discuss with him the swollen gland on your neck Getting CT chest, and full breathing tests. Schedule sleep study. Dr Germain - for vocal cord dysfunction (ILO) Please call his secretaries at [phone] and choosing the option 'talk to the office and not the 'appointments' option, then ask to be scheduled with Dr Germain for an appointment. Alternatively: ENT Brielle Webster, scheduling number [phone] Discuss with your PCP re hypercalcemia. Budesonide at least once a day, ideally twice a day, maybe try 1) use albuterol right before budesonide nebs, or 2) mix albuterol + budesonide Continue with stiolto. Please do not hesitate to contact me should you have any questions or concerns! I can be reached by phone, or through [email or web address] (for non-urgent issues only). Appointment: [phone] [facility] History of Present illness Narrative* Austin Gordillo MD - 02/23/2025 1:00 PM EDT ESTABLISHED PATIENT FOLLOW-UP Portions of the encounter note have been copied from my previous note dated 06/30/2024 which have been updated where appropriate and all reflect current medical decision making from today. PRIMARY CARE PHYSICIAN: Eduin Perez DO SUBJECTIVE CHIEF COMPLAINT: shortness of breath Initial HPI: 06/30/2024 HISTORY OF PRESENT ILLNESS: Meredith Chaidez is a 53 year old female, ex-smoker, with a history of obesity (BMI 39), GERD, RA (+ RF/CCP), fibromyalgia, migraine headache, multiple allergies including allergy to prednisone/methylprednisolone, anaphylasix to advair. Here with Lb. Previous asthma history Age of onset, how diagnosed: age teenager, sx abated around her early 30s, returned around mid 40s. ED visits in the last year:06/2024 for wheezing, chest pain, shortness of breath, borderline saturation (PaO2 60) and BIGG (creat 1.2 from baseline 0.6). Intubation for asthma : + Steroid bursts in the last year: Current sx - Worsened breathing in the last 3 months. Noted chest congestion, shortness of breath, wheezing, cough with intermittent white/clear sputum. + chest tightness, intermittent chest pain, reportedly leaky valves. + multiple family member with cardiac issues. + nocturnal awakenings with shortness of breath. Denied hemoptysis. + chronic RUQ pain, 5 years, worse with eating. Also noted worsened sob with eating. Also reported possible cirrhosis history. Comorbidities: ASA allergy: per chart aspirin allergy Obesity: Rheumatology - reported history of positive DAWOOD, diagnosed with RA Exposures Smoking: former: quit 2006 Current asthma therapy: Albuterol - HFA, nebulizing treatment Singulair Zyrtec bid Mucinex Theophylline - on for 8 years, off for 6 months, resumed 2 months ago. Never been monitoring the level. Previous asthma therapy: Throat swelling, hives Symbicort Advair, Dulera Atrovent Emotional/psychological reaction/hives Prednisone Solumedrol Cortisone Pending decadrone challenge - not able to complete as outpatient Interval history 02/23/2025 Since last visit, Several courses of hospitalization for severe asthma, including intubation. Appears to tolerate budesonide, decadron (allergy note 12/2024). Per outpatient pul note from [facility], also tolerates stiolto, singulair, and labuterol. More physically active, but also has more allergy symptoms compared to December. Has been off theophylline since 12/2024. Overall feels ok, no OCS use for exacerbations. Noted more swelling in ankles and faces. Was given decadron 16/day but worsened her glaucoma, and leads to mild psychologic changes. Initially lost 80lb over 6 months in 2023, and gained about 35lb since 08/2024. Now slowly start losing weight again. Comorbidities: Atopy and Allergic Rhinitis: skin testing 12/2024 all neg. Allergy 12/2024 - nonallergic vasomotor chronic rhinitis. deviated septum (ENT 11/2024) Sinus Disease/Polyps: no (ENT scope 11/2024) GERD: + EGD 12/2024, small HH. + LPRD - ENT 10/2024. Protonix bid + famotidine. Pending esophagram/modified barium swallow per ENT 10/2024 ILO - saw ENT 10/2024, referred to speech therapy NICOLE: difficulty with CPAP. Pending PSG Obesity: ASA allergy: per chart aspirin allergy RA - + DAWOOD, +CCP/RF. See [facility]. Fatty liver Pet - has 2 cats (Grandson's support animal), not sleeping in her bedroom Current regimen: Budesonide - prn - reports throat swelling/tightness/numbness - after a few days - Stiolto Albuterol duoneb Singulair Theophylline 100 bid - off since 12/2024 Protonix 40 bid famotidine Saline rinse Patient Entered Questionnaires 02/19/2025 12/12/2024 12/05/2024 Asthma Control Test Interferrence with getting things done 3 Some of the time 3 Some of the time 3 Some of the time Shortness of breath 1 More than once a day 4 Once or twice a week 4 Once or twice a week Symptoms woke you up 2 2 or 3 nights a week 4 Once or twice 1 4 or more nights a week Rescue inhaler/nebulizer used 3 2 or 3 times per week 4 Once a week or less 4 Once a week or less Opinion of control 4 Well controlled 4 Well controlled 4 Well controlled Score 13 19 16 CURRENT OUTPATIENT MEDICATIONS: cetirizine (ZYRTEC) 10 mg tablet Take 1 tablet by mouth two times a day. tiotropium-olodaterol (STIOLTO RESPIMAT) 2.5-2.5 mcg/actuation inhaler Inhale 2 Puffs as instructedonce daily. ALPRAZolam (XANAX) 1 mg tablet Take 1 mg by mouth at bedtime as needed. famotidine (PEPCID) 40 mg tablet Take 1 tablet by mouth once daily. ipratropium-albuterol (DUONEB) 0.5 mg-3 mg(2.5 mg base)/3 mL nebu Inhale 3 mL as instructed every 6hours as needed for wheezing/shortness of breath. rhubarb root extract (ESTROVEN CMPLT MENOPAUSE RLF) 4 mg tab Take by mouth. cholecalciferol (VITAMIN D-3) 5,000 unit tab Take 5,000 Units by mouth once daily. levothyroxine (SYNTHROID) 50 mcg tablet Take 50 mcg by mouth daily before breakfast. febuxostat (ULORIC) 40 mg tab Take by mouth once daily. metoprolol succinate ER (TOPROL XL) 25 mg 24 hr tablet Take 50 mg by mouth once daily. amLODIPine (NORVASC) 2.5 mg tablet Take by mouth once daily. montelukast sodium(SINGULAIR 10 MG TAB) Take one(1) tablet daily at bedtime. ALBUTEROL 90 MCG/ACTUATION AEROSOL INHALER Inhale one(1) - two(2) puffs four(4) times a day as needed for wheezing and shortness of breath. pantoprazole sodium(PROTONIX 40 MG TAB) Take 40 mg by mouth two times a day. promethazine hcl(PHENERGAN 25 MG TAB) as necessary budesonide (PULMICORT) 0.25 mg/2 mL nebulizer solution Use 2 mL via nebulizer two times a day. theophylline ER (JEN-24) 200 mg 24 hr capsule Take 1 capsule by mouth once daily. CPAP/BIPAP/OTHER Type .CPAPSettings into a note to see current settings/supplies/DME information. tiotropium-olodaterol (STIOLTO RESPIMAT) 2.5-2.5 mcg/actuation inhaler Inhale 2 Puffs as instructedonce daily. gabapentin (NEURONTIN) 400 mg capsule Take 400 mg by mouth at 9 am and 400 mg at 2 pm gabapentin (NEURONTIN) 300 mg capsule Take 3 capsules by mouth daily at bedtime for 30 days. REVIEW OF SYSTEMS GENERAL: No unintentional weight loss, fever, chills CV: No chest pain, palpitations RESP: As in HPI GI: No nausea, vomiting, diarrhea PHYSICAL EXAMINATION: BP 145/87 Pulse 75 Temp (Src) 98.2 (Temporal) Resp 16 Wt 215 lb 2.7 oz (97.6kg) SpO2 98% LMP 01/31/2011 ON RA General appearance: Well appearing, alert, in no acute distress Lungs: Lungs clear to auscultation. No wheezing, rhonchi, rales Extremities: No deformities, clubbing or cyanosis. Neuro: No focal motor deficit DATA: I personally reviewed the following labs, PFTs, radiographs Labs reviewed: Abs Eosin Date Value Ref Range Status 12/09/2024 0.29 <0.46 k/uL Final 10/27/2024 0.46 (H) <0.46 k/uL Final 07/25/2024 0.52 (H) <0.46 k/uL Final 07/24/2024 0.69 (H) <0.46 k/uL Final 07/23/2024 0.10 <0.46 k/uL Final 06/30/2024 0.91 (H) <0.46 k/uL Final IgE Date Value Ref Range Status 07/24/2024 89.9 <114.0 kU/l Final FeNO: 06/30/2024 69.0 10/2024 34 RAST: 10/2024 all neg LFTs: 12/2024 wnl NTproBNP 06/2024 wnl A1AT PI*MM Imagings reviewed: CT chest wo const 06/[address] evidence of acute abnormality. Lung parenchyma and airways: No consolidation. No suspicious pulmonary nodule. Small left lower lobe base cyst. Right lower lobe paravertebral scarring. Small amount of presumed debris along the left lateral wall of the distal trachea (image 66). Central airways are otherwise patent. Pleural space: No pleural effusion. No pleural thickening. No pneumothorax. CTPE 08/[address] evidence of pulmonary embolism within limits of the exam. Increasing dependent and basilar opacities with development of opacification of the underlying bronchi, possibly secondary to aspiration with early aspiration pneumonitis. Short-term follow-up is recommended. Lung parenchyma and airways: ET tube has been placed with tip somewhat low. This can be pulled about 1 cm. There is exploratory configuration of the central airways. Development of retained secretions within the central airways. Aspirated materials is not excluded. There has been opacification of many of the bronchial branches especially in the dependent basilar regions, possibly retained secretions or aspirated material. Patchy groundglass and consolidative opacities with volume loss have increased in the medial upper lungs as well as in the dependent basilar regions. These may represent atelectasis, although superimposed infection/aspiration pneumonitis is not excluded. Patchy air trapping is suspected bilaterally especially at the bases. Cystic lesion again seen in the left base. Few tiny pulmonary nodules are stable, largest in the right lung apex image 75. Pleural space: Mild pleural thickening with no significant pleural effusion or pneumothorax. PFTs reviewed 06/30/2024 FEV1/FVC 0.59 pre, 0.56 post , FEV1 44 (1 )pre, 50 (1.12 )post %, FVC 62 (1.69 )pre, 73 (1.99 )post %, BD neg ( FVC change >10% pred but expiratory time change > 10%), flow volume loop reviewed 10/2024 FEV1/FVC 0.66 pre, 0.73 post , FEV1 81 (1.82 )pre, 89 (1.98 )post %, FVC 102 (2.77 )pre, 100(2.73 )post %, BD neg (FEV1, FVC change >10% pred), flow volume loop reviewed TTE 08/2024 LVEF 66%, nml RV. Negative shunt study. IMPRESSIONS AND RECOMMENDATIONS Meredith Chaidez is evaluated today for: Asthma severity: Sever Persistent: Asthma Phenotype: late onset, T2 Asthma comorbidities: RA, GERD, asthma medication intolerance Asthma diagnosed by: sx; PFTs; Biologics: no Chronic OCS: no Nebulizer at home: yes - albuterol/duoneb Peak Flow Meter: no (J45.50) Severe persistent asthma without complication (HCC) (primary encounter diagnosis) Comment: Plan: Budesonide at least once a day, ideally twice a day, maybe try 1) use albuterol right before budesonide nebs, or 2) mix albuterol + budesonide. Throat symptoms are unlikely all due to budesonide - will continue eval with GI/ENT Continue with stiolto. Discussed about allergen avoidance - keep pets outside of bedroom, wash sheets, consider air purifier with HEPA filter SPIROMETRY - BASELINE AND POST DILATOR, LUNG VOLUMES, LUNG DIFFUSION CAPACITY (DLCO), montelukast (SINGULAIR) 10 mg tablet, tiotropium-olodaterol (STIOLTO RESPIMAT) 2.5-2.5 mcg/actuation inhaler (R13.10) Dysphagia, unspecified type Comment: Plan: CONSULT TO [facility] (J38.7) Inducible laryngeal obstruction (ILO) Comment: Plan: CONSULT TO ENT - Dr Germain (J84.9) ILD (interstitial lung disease) (HCC) Comment: Plan: rule out ILD given report of bibasilar atelectasis on prior CT, and that has untreated, active RA CT CHEST WO IVCON (R20.0) Numbness Comment: Asymmetrical intermittent numbness and weakness - placed referral neurology. Plan: CONSULT TO NEUROLOGY Discuss with your PCP re hypercalcemia Follow up with ENT Dr Santana - also discuss with him the swollen gland on your neck Follow up with rheumatology - for RA Recording using [employer] software for draft documentation of the visit was discussed with the patient/authorized automobile sales representative; all questions welcomed and answered. Patient/authorized automobile sales representative agreed to proceed Objective data are reviewed 02/23/2025 Written and verbal health teaching given to patient, patient verbalizes understanding and agrees with treatment plan. Return in about 9 weeks (around 04/27/2025), or if symptoms worsen or fail to improve. Austin Gordillo MD Pulmonary and Critical Care Medicine Respiratory [facility] I spent a total of 45 minutes on the date of the service which included preparing to see the patient, [id number] patient care, completing clinical documentation, obtaining and/or reviewing separately obtained history, performing a medically appropriate examination, counseling and educating the pat ient/family/caregiver, ordering medications, tests, or procedures, independently interpreting results (not separately reported), and communicating results to the patient/family/caregiver. documented in this encounterMckitrick [facility]07-16-2025 NoteBarney [facility]06-20-[facility] History of Present illness Narrative* Joe Valderrama MD - 01/28/2025 8:20 AM EDT Images from the original note were not included. Subjective Meredith Chaidez is a 54 y.o. female who presents for neuropathy and back pain Patient is present for a scheduled televisit. They have provided verbal consent to proceed with thevirtual encounter. At the time of the visit, the patient is located at home and confirms they are in a private setting appropriate for a medical evaluation. 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 She reports an improvement in her overall health status since her last visit. However, she continues to experience severe neuropathy, which is most intense during the web applications architect and late-night hours but persists throughout the day. Her symptoms include extreme weakness, pain, tingling, numbness,and swelling from her lower back downwards. The weakness in her legs and neuropathy in her feet have been progressively worsening. She describes the sensation in her feet as if they have been smashedwith hammers, particularly in her toes. In August, she was hospitalized due to a severe asthma attack that led to respiratory failure. Shewas on oxygen 24/ at home, and her condition deteriorated to the point where her lungs ceased functioning. She was life- flighted to [facility], where she spent approximately 10 days in the hospital, i ncluding 5 days on a ventilator. She is currently on gabapentin, with a dosage of 400 mg in the morning and afternoon, and 900 mg atnight, which provides some relief. She has previously tried Lyrica but discontinued it due to adverse effects. She also takes nortriptyline 10 mg, which was effective until concerns about her apnea and delusional episodes arose. She was unable to use an apnea mask due to her lungs not opening sufficiently to allow air passage,even with BiPAP. Now that her lungs are functioning better, she can start using her machine again. However, due to non-compliance for several months, her machine was taken back and she needs to undergo another apnea test. She requests a sleep study to be conducted at [facility]. Her last sleep testshowed only 3 minutes of REM sleep out of a total of 6 hours. INTERVAL: Since last visit, she reports an improvement in her overall health status. However, her neuropathy symptoms have worsened, and she was hospitalized in August for a severe asthma attack leading to respiratory failure. PAST SURGICAL HISTORY: She has undergone ulnar surgery on the left side, which took a year for her hand to recover from. MEDICATIONS CURRENT MEDS: Gabapentin 400 mg Oral Morning Gabapentin 400 mg Oral Afternoon Gabapentin 900 mg Oral Night Nortriptyline 10 mg Oral PREVIOUS MEDS: Lyrica Reason for Discontinuation: Body did not like it Review of Systems Const: Denies appetite change, fever, chills. Allergy: Denies medication reaction. Ocular: Denies visual acuity change. ENT: Denies hearing change. Endoc: Denies weight loss. Resp: Denies dyspnoea, wheezing. Cardiac: Denies angina, palpitations. GI: Denies nausea, vomiting. Haem: Denies bleeding. : Denies incontinence. MSK: Denies arthralgias, joint oedema. Derm: Denies rash, hair loss. Neuro: Denies ataxia, tremor. Also see HPI for elements of ROS documented therein and for details of positive findings, which shall supersede the foregoing. Objective There were no vitals taken for this visit. Physical Exam Results Assessment & Plan 1. Idiopathic progressive neuropathy: She reports worsening symptoms, including extreme weakness, pain, tingling, numbness, and swelling from her lower back down to her feet. The current gabapentin regimen of 400 mg in the morning, 400 mg in the afternoon, and 900 mg at night is providing some relief, and she is tolerating it well. Shewill continue with this dosage. A referral to Dr. Mayers, a neurosurgeon in [place], will be arranged for further evaluation of her back condition. 2. Spastic hemiplegia: She continues to experience significant symptoms affecting her right dominant side. No new treatment changes were discussed during this visit. 3. Sleep apnea: She was unable to use an apnea mask due to her lungs not opening sufficiently to allow air passage,even with BiPAP. Now that her lungs are functioning better, she can start using her machine again. However, due to non-compliance for several months, her machine was taken back and she needs to undergo another apnea test. A split-night sleep study will be scheduled at [facility] to assess her condition and determine the most effective therapy. She will continue on nortriptyline 10 mg. 4: Lower back pain seems worse and she has L5-S1: Small disc bulge. Mild facet arthropathy. A round3 mm hyperintense T2 structure along the anterior medial margin of the left facet joint is most butwith a facet synovial cyst. Mild spinal canal stenosis. Moderate bilateral neural foraminal stenosis. Mild spinal canal stenosis. Will refer to Neurosurgery Dr Rice. 5. This clinical note was created utilizing [employer] documentation system. All information has been thoroughly reviewed, corrected as necessary, and authenticated by the provider to ensure accuracy and completeness. On occasion, [employer] documentation system erroneously drops words or replaces a spoken word with a similar sounding word. Please notify with any questions or concerns regardingthis clinical note. documented in this encounterCox Walnut [id number] Telephone encounter Note* Telephone Encounter - Gabi Marroquin APRN.CNP - 01/19/2025 1:18 PM EDT I am not too privy with jen - is it ok to 200mg tablet daily rather than 100mg BID? I know its probs fine but just want to be sure! [facility]06-11-2025 Miscellaneous Notes* Telephone Encounter - Gabi Marroquin APRN.CNP - 01/19/2025 1:18 PM EDT I am not too privy with jen - is it ok to 200mg tablet daily rather than 100mg BID? I know its probs fine but just want to be sure! * Telephone Encounter - Priya Soni - 01/18/2025 9:23 AM EDTSummary: [facility] [place] prescribed, JEN 100- this off market per the pharmacy . the script sent in was wrong- they requested a new script as listed below. new script is needed JEN 24 CAPSULE once daily PH: [phone]. pharmacy- can be called for any questions . documented in this encounterMckitrick [facility]06-10-2025 Telephone encounter Note * Telephone Encounter - Priya Soni - 01/18/2025 9:23 AM EDTSummary: [facility] [place] medication prescribed, JEN 100- this off market per the pharmacy . the script sent in was wrong- they requested a new script as listed below. new script is needed JEN 24 CAPSULE once daily PH: [phone]. pharmacy- can be called for any questions . [facility]05-12-2025 NoteBarney [facility]05-12-2025 History of Present illness Narrative* Rylan Smith MD - 12/20/2024 12:59 PM EDT December 20, 2024 Standing PSG Orders signed in the last 90 days None Future PSG Orders signed in the last 90 days Ordered Auth. provider POLYSOMNOGRAM (PSG) [[id number]] 11/15/24 Gabi Marroquin APRN.PACKING AND FINAL ASSEMBLY SUPERVISOR Assoc. diagnoses: NICOLE (obstructive sleep apnea) [G47.33] Q: Indications - Select All That Apply: A: Obstructive sleep apnea Q: STOP-BANG conditions - Select All That Apply: A: BMI > 35 kg/m2 A2: AGE > 50 A3: high blood PRESSURE Q: Comorbidities: A: Moderate/Severe Pulmonary disease Q: Specify Pulmonary Disease: A: Other: enter comments (severe asthma w/ hx of intubation) Q: Is the patient non-ambulatory or will they be accompanied by a caregiver?: A: No Q: Current use of supplemental oxygen during sleep period?: A: No Q: Add supplemental oxygen if needed per sleep lab policy?: A: Yes Q: Is this a repeat Sleep Study?: A: No All Prior Sleep Studies (past 365 days) 11/15/2024 08:41 Sleep Studies POLYSOMNOGRAM (PSG) POLYSOMNOGRAM (PSG) Order Status: Ordered, Future Expires: 11/15/25 BMI Readings from Last 2 Encounters: 12/17/24 : 41.21 kg/m 12/09/24 : 40.43 kg/m PAST MEDICAL HISTORY Diagnosis Date Acute on chronic respiratory failure with hypoxia and hypercapnia (HCC) 09/01/2024 DAWOOD positive 03/31/2024 Anxiety, generalized 09/08/2024 Bipolar 1 disorder (HCC) 09/08/2024 Cervical spondylosis without myelopathy Chronic respiratory failure with hypoxia ([facility]) 09/08/2024 Delirium 09/06/2024 Difficult intravenous access 12/09/2024 Drug allergy, multiple 09/01/2024 Elevated total protein 06/30/2024 Esophageal reflux Fatty liver 09/01/2024 Glaucoma 09/08/2024 Stints placed in both eyes on 2019 Gout 09/08/2024 For at least 8 years Hidradenitis suppurativa 09/08/2024 Hypercalcemia 06/30/2024 Hypertriglyceridemia 09/08/2024 Irritable bowel syndrome Malnutrition of moderate degree ([facility]) 09/02/2024 Migraine without aura Mild mitral regurgitation 03/31/2024 Moderate protein-calorie malnutrition ([facility]) 07/24/2024 Nonallergic vasomotor rhinitis 2024 all inhalant blood and skin testing negative Obesity, Class II, BMI 35-39.9 09/09/2024 NICOLE on CPAP 09/01/2024 Primary hypertension 09/01/2024 Prolonged QT interval 09/02/2024 Pulmonary hypertension (HCC) 09/10/2022 Rheumatoid arthritis involving both hands ([facility]) 09/08/2024 Severe persistent asthma with status asthmaticus ([facility]) 07/01/2024 Unspecified asthma(493.90) The medical record was reviewed to determine if the proposed sleep study conforms to the AASM Practice Parameters for the Indications for Polysomnography and Related Procedures, or if the sleep studyis indicated for other reasons. Indications for study: NICOLE previously diagnosed: Evaluate response to PAP therapy Sleep study to be performed: Split Study-Polysomnogram with PAP titration Special instructions: Split night study if AHI > 15. Start with 5 cmH2O, or 2cm below home settings, then titrate per protocol Target REM/supine sleep Add EtCO2 or Transcutaneous CO2 This patient may benefit from a sleep consultation. Hx NICOLE - non-complaint d/t lung issues, needs supplies [facility] Staff Note: I have read the above protocol, edited as needed, and agree to the plan. Rylan Smith MD 8:33 AM, 12/21/2024 * Justin Snider - 12/20/2024 9:14 AM EDT December 20, 2024 An order has been received for Polysomnogram (PSG) from Gabi Stephens a B. [facility] Staff. Visit prep complete. Comments :No The sleep study is scheduled for 01/27. Insurance: Payor: HU[employer]NA MEDICARE / Plan: [employer] MEDICARE PPO / Product Type: PPO / Payer/Plan Subscr Sex Relation Sub. Ins. ID Effective Group Num 1. [employer] MEDICA* MEREDITH CHAIDEZ Spencer 1970 Female Self [id number] 08/11/24 [id number] [address] [address] Justin Snider documented in this encounterMckitrick Hospital05-12-2025 NoteBarney [facility]05-09-2025 Instructions* Patient Instructions* Geoffrey Guardado MD - 12/17/2024 4:02 PM EDT We discussed your allergies and asthma: - You underwent allergy skin testing today for environmental allergens, wheat, and soy. The resultswere negative, indicating no allergies to these substances. This means you are not at risk for severe allergic reactions (e.g., anaphylaxis) to these items. - Your symptoms, including nasal congestion, eye swelling, and sensitivity to odors, are consistentwith non-allergic rhinitis and irritant sensitivity. These are not caused by an allergic immune response but rather by irritants such as perfumes, smoke, and air pollution. - Continue using your neti pot and saline nasal spray as tolerated to manage nasal symptoms. Can avoid Flonase and Astelin, as these have caused nasal congestion for you in the past. - You may resume taking cetirizine (Zyrtec) and Mucinex, as these are effective for your symptoms and well-tolerated. We discussed your food sensitivities: - Although your skin testing for wheat and soy was negative, you may continue to avoid or limit these foods based on your personal experience with bloating, swelling, and gastrointestinal discomfort.These symptoms are likely due to food sensitivities rather than allergies. - You do not need to carry an EpiPen, as your risk of anaphylaxis is very low. We discussed your throat and voice changes: - You mentioned a history of thrush, likely related to inhaler use for COPD. Continue to rinse yourmouth after using inhalers to reduce the risk of thrush. - Follow up with the ENT specialist as planned to evaluate your throat and voice changes further. This may include assessment for laryngeal issues or other contributing factors. Follow-up and next steps: Thank you for coming in today. documented in this encounterMckitrick Hospital05-09-2025 NoteBarney [facility]05-09-2025 History of Present illness Narrative* Garfield Brink RN - 12/17/2024 3:19 PM EDT INHALANT 40 PERCUTANEOUS & INTRADERMAL TESTING/ Mean Wheal & Flare Diameter (mm) Patient has been identified by name and date of : Yes . Skin test applied by : Garfield Brink RN Interpreted By: Geoffrey Guardado M.D. * Clinical significant reactions are regarded as a wheal diameter greater than or equal to 3 mm with a flare diameter greater or equal to 6mm. ALLERGENS Time applied: 1515 Time read: 1531 Negative Control: 50%Glycerin/50%Cocas P: W = 0 mm F = 0 mm Cat Hair 10,000 BAU/ml P: W = 0 mm F = 0 mm UF Dog 1:650 P: W = 0 mm F = 0 mm Cockroach Mix 1:20 P: W = 0 mm F = 0 mm Mite Df 10,000 AU/ml P: W = 0 mm F = 0 mm Mite Dp 10,000AU/ml P: W = 0 mm F = 0 mm Alternaria Alternata 1:20 P: W = 0 mm F = 0 mm Aspergillus Fumigatus 1:20 P: W = 0 mm F = 0 mm Cladosporium sphearospermum 1:20 P: W = 0 mm F = 0 mm Epicoccum Nigrum 1:10 P: W = 0 mm F = 0 mm Fusarium Solani 1:40 P: W = 0 mm F = 0 mm Bipolaris Sorokiniana 1:20 P: W = 0 mm F = 0 mm Penicillium Mix 1:20 P: W = 0 mm F = 0 mm Yariel, White 1:20 P: W = 0 mm F = 0 mm Beech, Bangladeshi 1:20 P: W = 0 mm F = 0 mm Birch Mix 1:20 P: W = 0 mm F = 0 mm Maple Mix 1:20 P: W = 0 mm F = 0 mm [place]le[place] ,Eastern 1:20 P: W = 0 mm F = 0 mm Bibb, Shagbark 1:20 P: W = 0 mm F = 0 mm [place] Tree, Red 1:20 P: W = 0 mm F = 0 mm [place], Red 1:20 P: W = 0 mm F = 0 mm [place], Bangladeshi/Eastern 1:20 P: W = 0 mm F = 0 mm Gilliam Pollen, Black 1:20 P: W = 0 mm F = 0 mm [place], Black 1:20 P: W = 0 mm F = 0 mm Bermuda Grass 10,000 BAU/ml P : W = 0 mm F = 0 mm [place], Blue/Mariel 100,000 BAU/ml P: W = 0 mm F = 0 mm Fescue, [place] 100,000 BAU/ml P: W = 0 mm F = 0 mm Ortiz Grass 1:20 P: W = 0 mm F = 0 mm Orchard Grass 100,000 BAU/ml P: W = 0 mm F = 0 mm Perennial [place], 100,000 BAU/ml P: W = 0 mm F = 0 mm Luca 100,000 BAU/ml P: W = 0 mm F = 0 mm Cocklebur 1:20 P: W = 0 mm F = 0 mm [place], sheep 1:20 P: W = 0 mm F = 0 mm Plantain, Hungarian 1:20 P: W = 0 mm F = 0 mm Lambs Quarters 1:20 P: W = 0 mm F = 0 mm Bee Elder, Burweed 1:20 P: W = 0 mm F = 0 mm Mugwort, Common 1:20 P: W = 0 mm F = 0 mm Pigweed, Rough 1:20 P: W = 0 mm F = 0 mm Ragweed, Mix 1:20 P: W = 0 mm F = 0 mm HISTAMINE, positive control(Histamine base 6mg/ml) P: W = 5 mm F = 20 mm ALLERGENS: LEGUME Soybean 1:40 P: W = 0 mm F = 0 mm ALLERGENS:GRAIN Wheat, whole 1:20 P: W = 0 mm F = 0 mm Hydrocortisone 2.5 % cream applied to positive skin test reactions per provider's order. Patient seen by Dr. Guardado prior to leaving [facility]. Garfield Brink RN * Geoffrey Guardado MD - 12/17/2024 2:33 PM EDT Meredith Chaidez returns for follow-up of chronic rhinitis and COPD/asthma. Ms Chaidez was seen by Allergy/Dr Almaraz last week - consult placed for ENT- Speech Path eval with Andrea Germain to r/o Inducible laryngeal obstruction (ILO) (functionally similar to laryngospasm, vocal cord dysfunction, paradoxical vocal fold motion) She reports severe COPD/asthma symptoms exacerbated by various environmental triggers, including fresh cut grass, pollen, mold, mildew, dust mites, and dander. She also experiences respiratory distress triggered by chemical irritants such as perfumes, odors, scents, fragrances, and bleach. Exposureto these triggers reportedly causes her nasal anc chest irritation and causes sx of sob. She has been off antihistamines, including Benadryl, cetirizine, and Mucinex, for at least 5 days in preparation for today's allergy testing. During this period, she notes variable symptoms dependingon the weather. In the mornings, if her windows are open, she experiences significant eyelid swelling, crusting, and severe nasal congestion. She feels astelin, flonase make her nasal sx more congested, not less congested - she gets some relief with prn cetirizine, mucinex. She has a history of adverse reactions to multiple medications, including tape, codeine, Depo-Provera, Vicodin, Toradol, prednisone, and methylprednisolone, which reportedly cause hives and swelling.She has tolerated budesonide well during her most recent hospitalization - received budesonide nebstwice with no anaphylaxis, no hives, no angioedema sx. She has a deviated septum secondary to a nasal fracture sustained approximately 30 years ago. She uses a neti pot and saline nasal spray but reports that Flonase and Astelin cause her nasal passages to get more, not less, congested. She reports gastrointestinal symptoms, including bloating and swelling of her hands, after consuming wheat and soy. She denies a history of celiac disease but notes a family history of the condition.She admits to consuming bread despite these symptoms and reports that moderate soy intake is tolerable, but excessive consumption leads to significant swelling, sluggishness, and gastrointestinal upset. She denies any history of anaphylaxis, no acute hives, angioedema, globus sx with any specific food ingestion Past Medical History: PAST MEDICAL HISTORY Diagnosis Date Acute on chronic respiratory failure with hypoxia and hypercapnia ([facility]) 09/01/2024 DAWOOD positive 03/31/2024 Anxiety, generalized 09/08/2024 Bipolar 1 disorder ([facility]) 09/08/2024 Cervical spondylosis without myelopathy Chronic respiratory failure with hypoxia (HCC) 09/08/2024 Delirium 09/06/2024 Difficult intravenous access 12/09/2024 Drug allergy, multiple 09/01/2024 Elevated total protein 06/30/2024 Esophageal reflux Fatty liver 09/01/2024 Glaucoma 09/08/2024 Stints placed in both eyes on 2019 Gout 09/08/2024 For at least 8 years Hidradenitis suppurativa 09/08/2024 Hypercalcemia 06/30/2024 Hypertriglyceridemia 09/08/2024 Irritable bowel syndrome Malnutrition of moderate degree (HCC) 09/02/2024 Migraine without aura Mild mitral regurgitation 03/31/2024 Moderate protein-calorie malnutrition ([facility]) 07/24/2024 Obesity, Class II, BMI 35-39.9 09/09/2024 NICOLE on CPAP 09/01/2024 Primary hypertension 09/01/2024 Prolonged QT interval 09/02/2024 Pulmonary hypertension ([facility]) 09/10/2022 Rheumatoid arthritis involving both hands ([facility]) 09/08/2024 Severe persistent asthma with status asthmaticus ([facility]) 07/01/2024 Unspecified asthma(493.90) Past Surgical History: PAST SURGICAL HISTORY Procedure Laterality Date EGD BIOPSY SING OR MULT LAPAROSCOPY SURG CHOLECYSTECTOMY Cholecystectomy, lap LIG/TRNSXJ FLP TUBE ABDL/VAG APPR UNI/BI Tubal ligation PAST SURGICAL HISTORY OF benign tumors on flank PAST SURGICAL HISTORY OF cervical fusion TONSILLECTOMY PRIMARY/SECONDARY <AGE 12 Tonsillectomy Allergies: Adhesive Tape-Silicones, Advair Diskus [Fluticasone Propion- Salmeterol], Arthrotec 50 [Diclofenac-Misoprostol], Aspartame, Codeine, Depo- Provera [Medroxyprog Bandar (Antineoplast)], Elavil [Amitriptyline Hcl], Eryc [Erythromycin], Flonase Headache-Allergy Rlf [Fvr-Jayzoxdvy-Aiikzsvbgikiw], I mitrex [Sumatriptan Succinate], Latex, Nsaids (Non-Steroidal Anti-Inflammatory Drug), Nubain [Nalbuphine Hcl], Prednisone, Relafen [Nabumetone], Steroids [Betamethasone Dipropionate], Stevia [Stevioside (Bulk)], Toradol [Ketorolac Tromethamine], Trazodone, [id number]-[id number] Antimigraine Agents, Vicodin [Hydrocodone-Acetaminophen], Vioxx [Rofecoxib], and Zanaflex [Tizanidine Hcl] Current Outpatient Medications Medication Sig CPAP/BIPAP/OTHER Type .CPAPSettings into a note to see current settings/supplies/DME information. tiotropium-olodaterol (STIOLTO RESPIMAT) 2.5-2.5 mcg/actuation inhaler Inhale 2 Puffs as instructedonce daily. ALPRAZolam (XANAX) 1 mg tablet Take 1 mg by mouth at bedtime as needed. famotidine (PEPCID) 40 mg tablet Take 1 tablet by mouth once daily. ipratropium-albuterol (DUONEB) 0.5 mg-3 mg(2.5 mg base)/3 mL nebu Inhale 3 mL as instructed every 6hours as needed for wheezing/shortness of breath. rhubarb root extract (ESTROVEN CMPLT MENOPAUSE RLF) 4 mg tab Take by mouth. cholecalciferol (VITAMIN D-3) 5,000 unit tab Take 5,000 Units by mouth once daily. levothyroxine (SYNTHROID) 50 mcg tablet Take 50 mcg by mouth daily before breakfast. febuxostat (ULORIC) 40 mg tab Take by mouth once daily. metoprolol succinate ER (TOPROL XL) 25 mg 24 hr tablet Take 50 mg by mouth once daily. amLODIPine (NORVASC) 2.5 mg tablet Take by mouth once daily. montelukast sodium(SINGULAIR 10 MG TAB) Take one(1) tablet daily at bedtime. cetirizine hcl(ZYRTEC 10 MG TAB) Take 10 mg by mouth two times a day. ALBUTEROL 90 MCG/ACTUATION AEROSOL INHALER Inhale one(1) - two(2) puffs four(4) times a day as needed for wheezing and shortness of breath. pantoprazole sodium(PROTONIX 40 MG TAB) Take 40 mg by mouth two times a day. promethazine hcl(PHENERGAN 25 MG TAB) as necessary azelastine 0.1% nasal spray 1 spray in each nostril twice daily for 30 days hydrOXYchloroQUINE (PLAQUENIL) 200 mg tablet Take 2 tablets by mouth once daily. (Patient not taking: Reported on 11/22/2024) tiotropium-olodaterol (STIOLTO RESPIMAT) 2.5-2.5 mcg/actuation inhaler Inhale 2 Puffs as instructedonce daily. gabapentin (NEURONTIN) 400 mg capsule Take 400 mg by mouth at 9 am and 400 mg at 2 pm gabapentin (NEURONTIN) 300 mg capsule Take 3 capsules by mouth daily at bedtime for 30 days. theophylline ER 100 mg 12 hr tablet Take 1 tablet by mouth two times a day. No current facility-administered medications for this visit. Social History Tobacco Use Smoking status: Former Current packs/day: 0.00 Types: Cigarettes Quit date: 04/01/2007 Years since quittin.7 Passive exposure: Past Smokeless tobacco: Current Vaping Use Vaping status: Never Used Substance Use Topics Alcohol use: No Drug use: No FAMILY HISTORY Problem Relation Age of Onset Hypertension Father Diabetes Maternal Aunt Diabetes Maternal Uncle Cancer Mother cervical Cancer Sister cervical REVIEW OF SYSTEMS: GENERAL: Denies fever DERM: Denies any new skin conditions, rashes or changing moles. EYES: Denies recent visual changes. ENT: Denies hearing loss or tinnitus RESP: Negative for hemoptysis CV: Negative for chest pain GI: Denies melena, Denies any rectal bleeding. All other review of systems negative except for those listed above. EXAM: Blood pressure 135/81, pulse 62, temperature 36.4 C (97.5 F), temperature source Temporal, resp. rate 18, weight 95.7 kg (211 lb), last menstrual period 01/31/2011, SpO2 97%. APPEARANCE: Alert, in no acute distress, in no respiratory distress EYES: sclera non-icteric, conjunctiva non-injected EARS: cerumen; visualized tympanic membranes normal. NOSE/SINUS: nasal turbinate hypertrophy: minimal;, no pus, no polyps, nasal crusts OROPHARYNX: Lips, tongue normal. Oropharynx clear. THROAT: no erythema NECK: neck supple, no adenopathy HEART: Regular rate, regular rhythm, S1 normal, and S2 normal LUNG: clear to auscultation ABDOMEN: soft, nontender, nondistended EXTREMITIES: No clubbing, No cyanosis, and No edema NEURO: Awake, alert and oriented x 3 and No involuntary motions. SKIN: no hives no angioedema DATA inhalant 40 panel skin testing - negative to all inhalants food allergy testing to wheat and soy - negative ASSESSMENT: Chronic rhinitis - Nonallergic rhinitis and Vasomotor rhinitis Hx COPD vs asthma medication intolerance vs allergy food intolerance without food allergy to wheat, soy PLAN: 1. Nonallergic vasomotor rhinitis (J30.0) Chronic rhinitis (J31.0) Negative allergy skin tests for environmental allergens and negative blood inhalant testing; thus no current evidence of any Allergic rhinoconjunctivitis . Symptoms triggered by various odors, scents, and air quality factors. Examination reveals more congestion on the right nasal passage, minimal to none on the left. - Continue using nasal saline rinses and neti pot. - Avoidance of known irritants. - Resume cetirizine and Mucinex as needed. 2. Severe persistent asthma, uncomplicated (HCC) (J45.50) Asthma exacerbated by environmental and chemical irritants. Previous hospitalizations noted. Unableto tolerate prednisone and methylprednisolone; however, has tolerated budesonide in the past without anaphylaxis. Defer to PULM with regards to med management of chest sx - apparently taking: albuterol prn duoneb singulair theophylline stiolto - She has passed inhalation challenge to budesonide X 2 with no anaphylaxis nor other symptoms suggestive of IgE mediated sensitization to the budesonide. No additional testing is needed at this point. No testing can predict non-IgE mediated nor idiosyncratic adverse drug reactions nor drug side effects. r/o Inducible laryngeal obstruction (ILO) (functionally similar to laryngospasm, vocal cord dysfunction, paradoxical vocal fold motion):: - Referral to ENT specialist for further evaluation of potential laryngeal involvement. - Dr Aldair Germain - order placed by Dr Almaraz in Allergy 3. Food intolerance in adult (K90.49) Negative skin tests for wheat and soy. Symptoms include bloating, swelling, and GI upset when consuming wheat and soy in large quantities. Low to no risk of anaphylaxis identified - negative skin testing to soy, wheat - Advised to consume wheat and soy in moderation. - No need for EpiPen at present unless there is some clinical change in hx/pe 1.) Medication: medical regimen as noted in EpicCare. 2.) Discussed medication dosage, usage, side effects, and goals of treatment in detail. 3.) Aggressive environmental controls. 4.) Follow-up: PRN - patient will return sooner should new symptoms or problems arise. 5.) Findings communicated to the primary care physician via mail or the shared electronic medical record. Geoffrey Guardado MD documented [facility] encounterM[facility]05-[facility]-2025 NoteBarney [facility]05-06-2025 Instructions* Patient Instructions* Peewee Hensley RD - 12/14/2024 1:38 PM EDT Nutrition Intervention 12/13/2024: Modify type and amount of food at meals and snacks: 1. Eat a balanced Mediterranean diet that includes: -High fiber starches: Whole grains (barley, oats, wheat, brown rice, whole grain breads/cereals/pasta and popcorn) and starchy vegetables (sweet potatoes, potatoes, corn, peas, beans/lentils, winter squash) -Fruits and vegetables from a variety of color families; aim for 5+ servings daily -Low fat dairy: fat free, low fat or reduced fat milk and milk alternatives, yogurt, cottage cheese, cheese -Protein: eggs, egg whites, skinless chicken and turkey, fish, seafood. Lean red meat (beef and pork) up to 1-2X/week. -Fats: olive oil, canola oil, avocado, seeds, nuts, nut butters and flaxseed 2. Eat frequent meals including breakfast 3. Consider starting to track your calories with Lose it omer or Cronometer 4. Start to include activity as able documented in this [facility]05-[facility]25 History of Present illness Narrative* ePewee Hensley RD - 12/13/2024 2:00 PM EDT [facility] Nutrition Therapy: Virtual Consult - Initial Assessment I have communicated my name and active licensure. The patient s identity and physical location wereverified at the time of this visit. Either the patient or their legal automobile sales representative has been informed of the risks and benefits of -- and alternatives to -- treatment through a remote evaluation andconsents to proceed with the evaluation remotely. Nutrition Diagnosis: Behavioral-Environmental: Food and nutrition related knowledge deficit, related to, lack of prior exposure to information , as evidenced by verbalizes incomplete information. RECOMMENDED MALNUTRITION DIAGNOSIS: NO MALNUTRITION IDENTIFIED NUTRITION CARE PLAN Nutrition Intervention 12/13/2024: Modify type and amount of food at meals and snacks: 1. Eat a balanced Mediterranean diet that includes: -High fiber starches: Whole grains (barley, oats, wheat, brown rice, whole grain breads/cereals/pasta and popcorn) and starchy vegetables (sweet potatoes, potatoes, corn, peas, beans/lentils, winter squash) -Fruits and vegetables from a variety of color families; aim for 5+ servings daily -Low fat dairy: fat free, low fat or reduced fat milk and milk alternatives, yogurt, cottage cheese, cheese -Protein: eggs, egg whites, skinless chicken and turkey, fish, seafood. Lean red meat (beef and pork) up to 1-2X/week. -Fats: olive oil, canola oil, avocado, seeds, nuts, nut butters and flaxseed 2. Eat frequent meals including breakfast 3. Consider starting to track your calories with Lose it omer or Cronometer 4. Start to include activity as able Nutrition Monitoring & Evaluation: monitor po intake and weight changes Need for Follow up: January 17 at 2PM Patient presents in the context of fatty liver. Patient seen by inpatient nutrition on 09/07/24 and noted with moderate protein calorie malnutrition based on insufficient energy intake and unintentional weight loss. Patient logged onto visit 15 minutes after start time today. Patient is looking to improve health and notes great support from . They are thinking about creating a meal plan. Discussed strategies to include more balance at meals. Diet recall is limited although appears low in protein and elevated in calories at the end of the day which is likely affecting metabolism. Exercise/activity is low. She does discuss some gi issues with foods. Encouraged patient to log foods to discuss at next visit. Patient's symptoms are: Weight Concerns: failure to lose weight Diet History: Breakfast - skips Lunch - oats w/ cinnamon + milk + 2 teaspoons Dinner - full dinner Snack - snacking in the evening Beverages - water + grape juice Activity: Activities of Daily Living: Sedentary (Desk job, seated for most of the day) Additional Activity: Sedentary (Little or no exercise: <1x/week) Anthropometrics: Height: Last 1 Encounter Ht Readings: Date: Ht: 12/09/2024 152.4 cm (5') Weight: Last 1 Encounter Wt Readings: Date: Wt: 12/09/2024 93.9 kg (207 lb) There is no height or weight on file to calculate BMI. Resting Metabolic Rate: 1463 Last 10 Encounter Wt Readings: Date: Wt: 12/09/2024 93.9 kg (207 lb) 11/22/2024 93.8 kg (206 lb 12.7 oz) 10/27/2024 92 kg (202 lb 13.2 oz) 10/26/2024 90.2 kg (198 lb 13.7 oz) 10/26/2024 90.2 kg (198 lb 13.7 oz) 09/01/2024 81.7 kg (180 lb 1.9 oz) 07/20/2024 82.5 kg (181 lb 14.1 oz) 06/30/2024 91 kg (200 lb 9.9 oz) 06/23/2024 91.2 kg (201 lb) 10/30/2007 72.8 kg (160 lb 8 oz)] Malnutrition Screening Significant unintentional weight loss? No Eating less than 75% of usual intake for more than 2 weeks? No Potential Signs of Inflammation: unable to determine at this time Education Materials Provided: Heart Healthy Plate and Building Healthy Meals Creative Eating Recipes READINESS TO LEARN Cognitive ability: Alert and oriented Motivation to learn: Interested Family support: Unable to assess - Family not present Instruction provided to: Patient Patient learns best by: Multiple Methods Factors affecting learning: None Physical limitations affecting learning: None Referred by: Eric TAM Billing Type: Initial Assess 2 units Total Time (mins): 30 SIGNATURE: Peewee Hensley RD PATIENT NAME: Meredith Chaidez DATE: 12/13/2024 TIME: 1:03 PM documented in this encounterMckitrick [facility]05-05-2025 NoteBarney [facility]05-05-2025 Telephone encounter Note* Telephone Encounter - Amber Burnett MA - 12/13/2024 8:49 AM EDT Recall entered [facility] Telephone encounter Note* Telephone Encounter - Amber Burnett MA - 12/13/2024 8:49 AM EDT ----- Message from Yaz Dao sent at 12/10/2024 3:34 PM EDT ----- repeat EGD in 3 yrs.Colonoscopy is recommended in 3 yrs ----- Message ----- From: Soy Reyes Jr., DO Sent: 12/10/2024 3:25 PM EDT To: Yaz Webb RN Reflux esophagitis and gastritis noted, maintain pantoprazole, repeat EGD in 3 yrs. Colonoscopy is recommended in 3 yrs, based on the pathology. Soy Reyes Jr., DO [facility]05-05-2025 Miscellaneous Notes* Telephone Encounter - Amber Burnett MA - 12/13/2024 8:49 AM EDT Recall entered * Telephone Encounter - mAber Burnett MA - 12/13/2024 8:49 AM EDT ----- Message from Yaz Dao sent at 12/10/2024 3:34 PM EDT ----- repeat EGD in 3 yrs.Colonoscopy is recommended in 3 yrs ----- Message ----- From: Soy Reyes Jr., DO Sent: 12/10/2024 3:25 PM EDT To: Yaz Webb RN Reflux esophagitis and gastritis noted, maintain pantoprazole, repeat EGD in 3 yrs. Colonoscopy is recommended in 3 yrs, based on the pathology. Soy Reyes Jr., DO documented in this encounterMckitrick Hospital05-02-2025 Radiology [facility] [place] [address] [place] [address] CT Scan Report Signed Patient: Meredith Chaidez MR#: [id number] : 1970 Acct:[id number] Age/Sex: 54 / F ADM Date: Loc: CT Room: Type: [facility] CLI Attending Dr: Eduin Perez DO Copies to: Eduin Perez DO~ Ordering Provider: Eduin Perez DO Date of Service: 12/10/24 CT/CT soft tissue neck wo/w con: Fatigue, unspecifiedtype;Mass in neck CT soft tissue neck wo/w con 12/10/2024 7:08 AM SIGNS AND SYMPTOMS: Left-sided neck swelling for 3 months. TECHNIQUE: Multidetector CT axial slices of the soft tissues of the neck were obtained with and without IV contrast. Sagittal and coronal reformats were reconstructed. CT was performed with one or more of the following dose reductiontechniques: Automated exposure control, adjustment of the mA and/or kV accordingto patient size, or use of iterative reconstruction technique. COMPARISON: None FINDINGS: Mucosal surfaces of the nasopharynx, oropharynx, hypopharynx, glottic, and subglottic airways are grossly unremarkable. The parotid glands, submandibular, and the thyroid gland are within normal limits. No soft tissue swelling. No lymphadenopathy is seen. Prominent left-sided lymph nodes lymph node measuring 1 cm in short axis. The carotid and jugular circulations are within normal limits. The visualized lung parenchyma shows no acute pathology. No acute bony abnormalities are appreciated. Cervical spondylosis with anteriorfusion hardware C4-5. CT/CT soft tissue neck wo/w con IMPRESSION: No acute findings. No gross central airway mass. No soft tissue swelling. Prominent left-sided level 2 lymph node. Finding is nonspecific. Attention on follow-up is suggested. Impression dictated by: Elliott Mehta Jr., D.OManuela 12/10/2024 10:09 AM Dictation Location: [place] [address] Transcribed By: [facility] 12/10/24 1009 Dictated By: Elliott Mehta Jr, DO 12/10/245 Signed By: 12/10/24 1009 [facility]05-01-2025 Nurse Note* Nursing Progress Note - Ashley Walters RN - 12/09/2024 9:02 AM EDT POST OP LEARNING RESPONSE INSTRUCTION PROVIDED TO: Patient and Spouse METHOD OF INSTRUCTION: Individual instruction Written instruction/Handouts Verbal instruction PATIENT / FAMILY RESPONSE: Information received as demonstrated by interest and questions FOLLOW-UP PLAN: Recommend - Recommend continued instruction and follow up as directed SUPPLEMENTAL MATERIAL: Post op discharge instructions Post sedation instructions given REFERRAL (RECOMMENDATION): None Electronically Signed By: Ashley Walters RN In Department: [facility]05-01-[facility] Miscellaneous Notes* Nursing Progress Note - Ashley Walters RN - 12/09/2024 9:02 AM EDT POST OP LEARNING RESPONSE INSTRUCTION PROVIDED TO: Patient and Spouse METHOD OF INSTRUCTION: Individual instruction Written instruction/Handouts Verbal instruction PATIENT / FAMILY RESPONSE: Information received as demonstrated by interest and questions FOLLOW-UP PLAN: Recommend - Recommend continued instruction and follow up as directed SUPPLEMENTAL MATERIAL: Post op discharge instructions Post sedation instructions given REFERRAL (RECOMMENDATION): None Electronically Signed By: Ashley Walters RN In Department: [facility] * Discharge Instr - Nursing - Ashley Walters RN - 12/09/2024 8:26 AM EDT Await biopsy results - Dr. Reyes' office will either call or MyChart. Repeat your colonoscopy in 3-5 years, or sooner if you have any concerning symptoms (like rectal bleeding, unexplained weight loss, or a change in bowel habits). Take it easy today - no drinking alcohol, no driving, no making any major life decisions. Regular diet today, but first meal should be on the pensionholder information clerk side - if you have a very greasy/heavy/spicy/fried meal, it could make you nauseous. You may have a sore throat today - this is normal. If you notice mild bleeding from your rectum, this can be normal. If it is significant, please either call or go to the ER. If you notice black, sticky stools, you should go to the ER. If you are having mild pain in your abdomen, this can be normal and due to the gas inserted during the procedure. To alleviate, walk around or apply a heating pad to the abdomen to move the gas through to pass. If you have severe pain in your abdomen, please either call or go the ER. If you have a mild fever, this can be normal. If your fever is over 101F, you should call or go to the ER. Resume all of your daily medications. * Nursing Progress Note - Chris Andrews RN - 12/09/2024 8:05 AM EDT PRE OP LEARNING ASSESSMENT PROCEDURE/SURGERY: GI PROCEDURES: Colonoscopy and EGD READINESS TO LEARN COGNITIVE ABILITY: Alert and oriented MOTIVATION TO LEARN: Interested FAMILY SUPPORT: None - Unavailable/disinterested PATIENT LEARNS BEST BY: Individual Instruction FACTORS AFFECTING LEARNING: None PHYSICAL LIMITATIONS AFFECTING LEARNING: None Electronically Signed By: Chris Andrews RN In Department: [facility] [place] documented in this encounterMckitrick Hospital05-01-2025 NoteA,B. This biopsy was reviewed in consultation with my colleague Dr. Gregg, who agrees with the diag nostic interpretation.[facility]S Medical CenterComment on above:Order Comment: Specimen Type: TISSUE SPECIMENOrdering Facility: [facility] Address: [address] [place], [place] [address]Performed By: #### [id number] ####[facility] LABCLIA [id number] [address]05-01-2025 Note* Discharge Instr - Nursing - Ashley Walters RN - 12/09/2024 8:26 AM EDT Await biopsy results - Dr. Reyes' office will either call or MyChart. Repeat your colonoscopy in 3-5 years, or sooner if you have any concerning symptoms (like rectal bleeding, unexplained weight loss, or a change in bowel habits). Take it easy today - no drinking alcohol, no driving, no making any major life decisions. Regular diet today, but first meal should be on the pensionholder information clerk side - if you have a very greasy/heavy/spicy/fried meal, it could make you nauseous. You may have a sore throat today - this is normal. If you notice mild bleeding from your rectum, this can be normal. If it is significant, please either call or go to the ER. If you notice black, sticky stools, you should go to the ER. If you are having mild pain in your abdomen, this can be normal and due to the gas inserted during the procedure. To alleviate, walk around or apply a heating pad to the abdomen to move the gas through to pass. If you have severe pain in your abdomen, please either call or go the ER. If you have a mild fever, this can be normal. If your fever is over 101F, you should call or go to the ER. Resume all of your daily medications. [facility]05-01-2025 Nurse Note* Nursing Progress Note - Chris Andrews RN - 12/09/2024 8:05 AM EDT PRE OP LEARNING ASSESSMENT PROCEDURE/SURGERY: GI PROCEDURES: Colonoscopy and EGD READINESS TO LEARN COGNITIVE ABILITY: Alert and oriented MOTIVATION TO LEARN: Interested FAMILY SUPPORT: None - Unavailable/disinterested PATIENT LEARNS BEST BY: Individual Instruction FACTORS AFFECTING LEARNING: None PHYSICAL LIMITATIONS AFFECTING LEARNING: None Electronically Signed By: Chris Andrews RN In Department: [facility] ENDOSCOPY [facility]05-01-2025 History and physical note* Soy Reyes Jr., DO - 12/09/2024 8:00 AM EDT HISTORY AND PHYSICAL EXAMINATION SERVICE DATE: 12/09/2024 SERVICE TIME: 7:52 AM Chief Complaint: dyspepsia, history of colon polyps HPI:This is a 54 year old female who presents with dyspepsia, GERD, and history of colon polyps. Last EGD and colonoscopy. Negative family history. PAST MEDICAL HISTORY Diagnosis Date Acute on chronic respiratory failure with hypoxia and hypercapnia ([facility]) 09/01/2024 DAWOOD positive 03/31/2024 Anxiety, generalized 09/08/2024 Bipolar 1 disorder ([facility]) 09/08/2024 Cervical spondylosis without myelopathy Chronic respiratory failure with hypoxia ([facility]) 09/08/2024 Delirium 09/06/2024 Drug allergy, multiple 09/01/2024 Elevated total protein 06/30/2024 Esophageal reflux Fatty liver 09/01/2024 Glaucoma 09/08/2024 Stints placed in both eyes on 2019 Gout 09/08/2024 For at least 8 years Hidradenitis suppurativa 09/08/2024 Hypercalcemia 06/30/2024 Hypertriglyceridemia 09/08/2024 Irritable bowel syndrome Malnutrition of moderate degree ([facility]) 09/02/2024 Migraine without aura Mild mitral regurgitation 03/31/2024 Moderate protein-calorie malnutrition ([facility]) 07/24/2024 Obesity, Class II, BMI 35-39.9 09/09/2024 NICOLE on CPAP 09/01/2024 Primary hypertension 09/01/2024 Prolonged QT interval 09/02/2024 Pulmonary hypertension (HCC) 09/10/2022 Rheumatoid arthritis involving both hands (HCC) 09/08/2024 Severe persistent asthma with status asthmaticus ([facility]) 07/01/2024 Unspecified asthma(493.90) PAST SURGICAL HISTORY Procedure Laterality Date LAPAROSCOPY SURG CHOLECYSTECTOMY Cholecystectomy, lap LIG/TRNSXJ FLP TUBE ABDL/VAG APPR UNI/BI Tubal ligation PAST SURGICAL HISTORY OF benign tumors on flank PAST SURGICAL HISTORY OF cervical fusion TONSILLECTOMY PRIMARY/SECONDARY Tonsillectomy FAMILY HISTORY Problem Relation Age of Onset Hypertension Father Diabetes Maternal Aunt Diabetes Maternal Uncle Cancer Mother cervical Cancer Sister cervical Social History Tobacco Use Smoking status: Former Current packs/day: 0.00 Types: Cigarettes Quit date: 04/01/2007 Years since quittin.7 Passive exposure: Past Smokeless tobacco: Current Vaping Use Vaping status: Never Used Substance Use Topics Alcohol use: No Drug use: No (Not in a hospital admission) ALLERGIES Allergen Reactions Adhesive Tape-Silic* Hives Advair Diskus [Flut* Anaphylaxis Arthrotec 50 [Diclo* Aspartame Itching Aspirin Codeine Depo-Provera [Medro* Elavil [Amitriptyli* Eryc [Erythromycin] Flonase Headache-Al* Swelling sneezing Ibu-200 [Ibuprofen] Imitrex [Sumatripta* Latex Medrol [Methylpredn* Nsaids (Non-Steroid* Hives Nubain [Nalbuphine * Prednisone Unknown Tolerated dexamethasone during hospitalization 08/2024 Relafen [Nabumetone] Steroids [Betametha* Other: See Comments Difficulty breathing hives Tolerated inhaled budesonide during hospitalization 09/05 Stevia [Stevioside * Intolerance Toradol [Ketorolac * Trazodone [id number] Anti* Other: See Comments Shooting pain from chest down arm Vicodin [Hydrocodon* Vioxx [Rofecoxib] Zanaflex [Tizanidin* COMPLETE REVIEW OF SYSTEMS: GENERAL: No weight loss, malaise or fevers RESPIRATORY: Negative for cough, hemoptysis, wheezing, COPD, dyspnea or shortness of breath CARDIOVASCULAR: Negative for chest pain, leg swelling, hypertension, CHF or palpitations GI: No nausea, vomiting, or diarrhea [facility] 01/31/2011 PHYSICAL EXAM: Physical Exam Performed: GENERAL: Alert, no distress, cooperative LUNGS: Lungs clear to auscultation, Good diaphragmatic excursion CARDIAC: Normal S1 and S2; no rubs, murmurs, or gallops ABDOMEN: Abdomen soft, non-tender, BS normal, No masses or organomegaly EXTREMITIES: Extremities normal, no deformities, edema, clubbing or skin discoloration. Good capillary refill., No ulcers (K31.9, R10.13) Dyspepsia and disorder of function of stomach Plan: EGD DIAGNOSTIC, EGD DIAGNOSTIC (Z86.0101) Personal history of adenomatous and serrated colon polyps Plan: COLONOSCOPY SCREENING, COLONOSCOPY SCREENING SIGNATURE: Soy Reyes Jr., DO PATIENT NAME: Meredith Chaidez DATE: December 09, 2024 TIME: 7:52 AM PAGER/CONTACT #: [facility]05-01-2025 History and physical note* Soy Reyes Jr., DO - 12/09/2024 8:00 AM EDT HISTORY AND PHYSICAL EXAMINATION SERVICE DATE: 12/09/2024 SERVICE TIME: 7:52 AM Chief Complaint: dyspepsia, history of colon polyps HPI:This is a 54 year old female who presents with dyspepsia, GERD, and history of colon polyps. Last EGD and colonoscopy. Negative family history. PAST MEDICAL HISTORY Diagnosis Date Acute on chronic respiratory failure with hypoxia and hypercapnia ([facility]) 09/01/2024 DAWOOD positive 03/31/2024 Anxiety, generalized 09/08/2024 Bipolar 1 disorder ([facility]) 09/08/2024 Cervical spondylosis without myelopathy Chronic respiratory failure with hypoxia ([facility]) 09/08/2024 Delirium 09/06/2024 Drug allergy, multiple 09/01/2024 Elevated total protein 06/30/2024 Esophageal reflux Fatty liver 09/01/2024 Glaucoma 09/08/2024 Stints placed in both eyes on 2019 Gout 09/08/2024 For at least 8 years Hidradenitis suppurativa 09/08/2024 Hypercalcemia 06/30/2024 Hypertriglyceridemia 09/08/2024 Irritable bowel syndrome Malnutrition of moderate degree ([facility]) 09/02/2024 Migraine without aura Mild mitral regurgitation 03/31/2024 Moderate protein-calorie malnutrition ([facility]) 07/24/2024 Obesity, Class II, BMI 35-39.9 09/09/2024 NICOLE on CPAP 09/01/2024 Primary hypertension 09/01/2024 Prolonged QT interval 09/02/2024 Pulmonary hypertension ([facility]) 09/10/2022 Rheumatoid arthritis involving both hands ([facility]) 09/08/2024 Severe persistent asthma with status asthmaticus ([facility]) 07/01/2024 Unspecified asthma(493.90) PAST SURGICAL HISTORY Procedure Laterality Date LAPAROSCOPY SURG CHOLECYSTECTOMY Cholecystectomy, lap LIG/TRNSXJ FLP TUBE ABDL/VAG APPR UNI/BI Tubal ligation PAST SURGICAL HISTORY OF benign tumors on flank PAST SURGICAL HISTORY OF cervical fusion TONSILLECTOMY PRIMARY/SECONDARY <AGE 12 Tonsillectomy FAMILY HISTORY Problem Relation Age of Onset Hypertension Father Diabetes Maternal Aunt Diabetes Maternal Uncle Cancer Mother cervical Cancer Sister cervical Social History Tobacco Use Smoking status: Former Current packs/day: 0.00 Types: Cigarettes Quit date: 04/01/2007 Years since quittin.7 Passive exposure: Past Smokeless tobacco: Current Vaping Use Vaping status: Never Used Substance Use Topics Alcohol use: No Drug use: No (Not in a hospital admission) ALLERGIES Allergen Reactions Adhesive Tape-Silic* Hives Advair Diskus [Flut* Anaphylaxis Arthrotec 50 [Diclo* Aspartame Itching Aspirin Codeine Depo-Provera [Medro* Elavil [Amitriptyli* Eryc [Erythromycin] Flonase Headache-Al* Swelling sneezing Ibu-200 [Ibuprofen] Imitrex [Sumatripta* Latex Medrol [Methylpredn* Nsaids (Non-Steroid* Hives Nubain [Nalbuphine * Prednisone Unknown Tolerated dexamethasone during hospitalization 08/2024 Relafen [Nabumetone] Steroids [Betametha* Other: See Comments Difficulty breathing hives Tolerated inhaled budesonide during hospitalization 09/05 Stevia [Stevioside * Intolerance Toradol [Ketorolac * Trazodone Kmmpmosu-2-Xu8 Anti* Other: See Comments Shooting pain from chest down arm Vicodin [Hydrocodon* Vioxx [Rofecoxib] Zanaflex [Tizanidin* COMPLETE REVIEW OF SYSTEMS: GENERAL: No weight loss, malaise or fevers RESPIRATORY: Negative for cough, hemoptysis, wheezing, COPD, dyspnea or shortness of breath CARDIOVASCULAR: Negative for chest pain, leg swelling, hypertension, CHF or palpitations GI: No nausea, vomiting, or diarrhea LMP 01/31/2011 PHYSICAL EXAM: Physical Exam Performed: GENERAL: Alert, no distress, cooperative LUNGS: Lungs clear to auscultation, Good diaphragmatic excursion CARDIAC: Normal S1 and S2; no rubs, murmurs, or gallops ABDOMEN: Abdomen soft, non-tender, BS normal, No masses or organomegaly EXTREMITIES: Extremities normal, no deformities, edema, clubbing or skin discoloration. Good capillary refill., No ulcers (K31.9, R10.13) Dyspepsia and disorder of function of stomach Plan: EGD DIAGNOSTIC, EGD DIAGNOSTIC (Z86.0101) Personal history of adenomatous and serrated colon polyps Plan: COLONOSCOPY SCREENING, COLONOSCOPY SCREENING SIGNATURE: Soy Reyes Jr., DO PATIENT NAME: Meredith Chaidez DATE: December 09, 2024 TIME: 7:52 AM PAGER/CONTACT #: documented in this encounterM[facility] Telephone encounter Note* Telephone Encounter - Rika Fenton RN - 12/08/2024 9:41 AM EDT Pt transferred back to nurses station to discuss concern with allergy congestion and getting her EGD/Colon tomorrow. Pt reported that allergies are worse in the morning based on the pollen count. She takes Zyrtec andMucinex in the morning and after about an hour, she clears up. No other issues. Nurse informed pt to take allergy medication 3 hours prior to her procedure arrival time, which is 7:[address], pt should be clear by the time she comes in. Pt was agreeable to this plan. Pt isaware that if she has a lot of congestion, she may not be able to have her procedure. [facility]04-30-2025 Miscellaneous Notes* Telephone Encounter - Rika Fenton RN - 12/08/2024 9:41 AM EDT Pt transferred back to nurses station to discuss concern with allergy congestion and getting her EGD/Colon tomorrow. Pt reported that allergies are worse in the morning based on the pollen count. She takes Zyrtec andMucinex in the morning and after about an hour, she clears up. No other issues. Nurse informed pt to take allergy medication 3 hours prior to her procedure arrival time, which is 7:[address], pt should be clear by the time she comes in. Pt was agreeable to this plan. Pt isaware that if she has a lot of congestion, she may not be able to have her procedure. documented in this encounterM[facility] Hospital04-14-2025 History of Present illness Narrative* Samantha Wilson RT(R) - 11/22/2024 3:00 PM EDT Radiology Service Progress Note PATIENT NAME: Meredith Chaidez DATE OF SERVICE: November 22, 2024 TIME: 2:21 PM PATIENT IDENTITY VERIFICATION COMPLETED USING TWO (2) IDENTIFIERS: Name and Date of confirmedby patient verbally. FALL SCREENING: Has the patient had 2 falls in the last year or 1 fall with injury or currently using an Ambulatory Assistive Device (Walker, Cane, Wheelchair, Crutches, etc.)? No PATIENT GENDER DATA: Assigned female at . status: Unknown status: N/A PATIENT RELEVANT IMPLANT DATA REVIEWED: Not Applicable PATIENT PRESENTS WITH AN IMPLANTABLE OR ATTACHED HIGH SCHOOL FRENCH TEACHER: No RADIOLOGY DEPARTMENT: Ultrasound PERIPHERAL IV DATA: Not applicable SIGNED BY: RT Joe(R) November 22, 2024 2:21 PM documented in this encounterMckitrick [facility]04-14-2025 [facility]04[facility] History of Present illness Narrative* Marian Nascimento PA-C - 11/22/2024 1:27 PM EDT Fibroscan Report Date performed: November 22, 2024 Indication : MASLD Patient fasted 3 hours:Yes Performed by Wandy Duke LPN Impression The liver stiffness is 7.3 kPa which corresponds to 91% chance of stage 0-2 fibrosis. The CAP analysis showed grade S3 of liver steatosis. Stage of liver fibrosis based on above kPa: A 91% chance of stage 0-2 fibrosis A 9% chance of stage 3-4 fibrosis (advanced fibrosis) A 1.3% chance of stage 4 fibrosis (cirrhosis). A kPa >20 indicates a high likelihood of stage 4 fibrosis/cirrhosis, consider further testing to confirm and refer to hepatology. Recommendations If kPa <8.0, reassess periodically Fib-4 score every 1-2 years if T2DM/Pre-T2DM OR with 2 or more metabolic risk factors Fib-4 score 2-3 years if no T2DM and <2 metabolic risk factors If kPa >8.0, refer to hepatology for further evaluation Result-Findings Technical difficulties: None. Result: The reading was adequate. Please refer to get images report for individual readings Number of readings: 10 IQR %: 13 E (kpa): 7.3 CAP: 333 Interpreted by: DUSTIN Baez Fibroscan Fibrosis Risk <7 kPA = F0-F2 97%, F3+F4 3%, F4 <1% <10 kPA = F0-F2 91%, F3+F4 9%, F4 1.3% 10-15 kPA = F0-F2 56%, F3+F4 43%, F4 14% >15 kPA = F0-F2 26%, F3+F4 74%, F4 46% Grade CAP value up to 237 dB/M corresponds to S0 (< 10 % Fat) CAP value between (238 - 258 dB/M) corresponds to S1 (>/= 11 % Fat) CAP value between (259 - 289 dB/M) corresponds to S2 (>/= 33 % Fat) CAP value > 290dB/M corresponds to S3 (>/= 67 % Fat) stage 0 ( S0:< 10 % steatosis) stage 1 (>/= S1: 11%-33% steatosis) stage 2 (>/= S2: 34%-66% steatosis) stage 3 (>/= S3: > 66% steatosis) References Hinojosa Y, Fan Q, Hinojosa T, Yamileth J, Hinojosa H, Gordillo T. Controlled attenuation parameter for assessment of hepatic steatosis grades: a diagnostic meta-analysis. Int J Clin Exp Med. 2015 May 15;8(10):81356-68.PMID: 25739958; PMCID: [id number]. Hamida Vega, Doron ANGULO, Rhonda M, Trip F, Cindy J, Prieto O, Luis F, David Vega, Ramy G, Yue A, Funmilayo E, Gisel L, Janine G, Hector A, Nathalie U, Michael S, Nakia, Jd V, Ernst V, Billy M, Linda CHAU. Refining the Baveno elastography criteria for the definition of compensated advanced chronic liver disease. J Hepatol. 2020;74(5):4079-8906. doi: 10.1016/j.jhep.2020.11.050. Epub 2019Jul 19. PMID: 95857004. Ananya Vega, Jyotsna Ross, Ni Vega, Cydney Vega, Carlos S, Andria Adams, Akira Adams, Alton Vicente.AASLD practice guidance on the clinical assessment and management of nonalcoholic fatty liver disease. Hepatology. 2022;77(5):1797- 1835. doi:10.1097/[id number] documented in this encounterM[facility]it[facility] Hospital04-14-2025 Instructions* Patient Instructions* Gabi Marroquin APRN.PACKING AND FINAL ASSEMBLY SUPERVISOR - 11/22/2024 1:15 PM EDT It was a pleasure seeing you today! As discussed, here is our plan: We discussed your breathing and asthma management: - You reported no recent wheezing, chest tightness, or shortness of breath. You are using your albuterol inhaler about once a week and continue to use Stiolto daily, which you feel is helping. Pleasecontinue using Stiolto as prescribed. - You are not currently using inhaled steroids due to past concerns about allergies. We discussed that you tolerated budesonide in the hospital previously, and this will be revisited during your upcoming appointment with Dr. Almaraz. Please discuss this with her and let me know her recommendations via MyChart. - Continue to avoid known triggers, including perfumes and environmental allergens, as much as possible. We discussed your allergies and sinus issues: - You are currently taking Singulair, cetirizine (twice daily), Benadryl as needed, and Mucinex 12-hour expectorant to manage your symptoms. Please continue these medications as directed. - You are goign to be starting Astepro nasal spray as recommended by your ENT. Please monitor your response to this medication. We discussed your sleep apnea: - Your CPAP machine is being returned due to insurance issues, and you are scheduled for a sleep study in January. Please contact the sleep center to ask about being placed on a waitlist for an earlier appointment. Follow-up instructions: - Continue with your current medications and treatments as outlined above. - Attend your upcoming appointment with Dr. Almaraz at the end of the month to discuss allergy testing, budesonide, and further management of your asthma and allergies. - Complete all scheduled tests and procedures, including the colonoscopy, endoscopy, FibroScan, ultrasound, and sleep study. - If you experience increased breathing difficulties, worsening allergy symptoms, or any other concerns, please contact our office immediately. Your next follow-up with Dr. Gordillo is scheduled for February. Please continue to monitor your symptoms and reach out if you need anything before then. Please do not hesitate to reach out if you have and questions or concerns! Gabi Marroquin APRN.CNP documented in this encounterM[facility]it[facility] Hospital04-14-2025 History of Present illness Narrative* Gabi Marroquin APRN.CNP - 11/22/2024 1:00 PM EDT Images from the original note were not included. Respiratory [facility] Follow Up Patient Visit The patient consented to the use of [employer] software for draft documentation of the visit consistent with [facility] s Notice of Privacy Practices. IMPRESSION AND PLAN 1. Severe persistent asthma without complication (HCC) (J45.50) Asthma is currently well-controlled. Patient is using Stiolto Respimat daily and albuterol inhaler approximately once a week. Discussed importance of inhaled steroids in treatment of asthma, patient would like to wait on starting ics until she sees art psychotherapist. Previous issues with inhaled steroids; however, patient tolerated budesonide twice during hospitalization. - Continue Stiolto Respimat and albuterol as needed. - Awaiting further evaluation by Dr. Almaraz at the end of the month to discuss potential initiation of budesonide. - Follow-up with Dr. Gordillo in February. 2. Allergic rhinitis, unspecified seasonality, unspecified trigger (J30.9) Severe allergic rhinitis with multiple triggers, including perfumes and laundry detergents. Currently managed with Singulair, cetirizine BID, and Benadryl PRN. Recent addition of Astepro nasal spray by ENT; unable to tolerate Flonase. - Continue current allergy medications. - Use Astepro nasal spray as prescribed. - Follow-up with art psychotherapist for comprehensive allergy testing and management. 3. NICOLE (obstructive sleep apnea) (G47.33) Patient experiencing issues with CPAP compliance due to health problems. Scheduled for a sleep study in January. - Contact sleep study scheduling to inquire about waitlist for an earlier appointment. - Ensure CPAP machine is available for use post-sleep study. 4. Gastroesophageal reflux disease with esophagitis without hemorrhage (K21.00) GERD with esophagitis, managed with pantoprazole BID. ENT added famotidine to further reduce acid levels. Suspected contribution to respiratory symptoms. - Continue pantoprazole BID and famotidine as prescribed. - Scheduled for endoscopy and colonoscopy to further evaluate. I spent a total of 30 minutes on the date of the service which included preparing to see the patient, [id number] patient care, completing clinical documentation, obtaining and/or reviewing separately obtained history, performing a medically appropriate examination, counseling and educating the pat ient/family/caregiver, and ordering medications, tests, or procedures. Discussed with the patient who agrees to the plan. Gabi Marroquin APRN.[facility] Pulmonary Medicine [facility] HISTORY OF PRESENT ILLNESS Meredith Chaidez is a 54 year old female with a PMH of gerd, ra asthma who presents for follow up. Last visit with me on 10/26/2024 1. Severe persistent asthma, unspecified whether complicated (J45.50) Recent pulmonary function tests show mild obstruction with significant bronchodilator response, indicating reversible airway disease. Patient has a history of multiple hospitalizations and intubationin August. Currently managed with Stiolto, Singulair, and albuterol as needed. Patient has a history of adverse reactions to inhaled corticosteroids and systemic steroids. - Discuss potential initiation of inhaled corticosteroid therapy with Dr. Gordillo after reviewing patient's tolerance to budesonide during recent hospitalization. - Consideration of biologic therapy such as Dupixent, Fasenra, or Nucala to reduce eosinophilic inflammation; will discuss with Dr. Gordillo. - Ordered Alpha-1 antitrypsin deficiency testing. - Continue current medications: Stiolto, Singulair, and albuterol as needed. - Follow-up in 1 month to reassess lung function and treatment efficacy. 2. Rheumatoid arthritis involving both hands, unspecified whether rheumatoid factor present (HCC) (M06.9) Patient reports significant pain and burning sensation in hands. Previous treatment with Orencia was discontinued due to cost and administration issues. Patient expresses dissatisfaction with currentrheumatologist and requests a new referral. - Referral to rheumatology for re-evaluation and management. - Continue current supportive measures. 3. NICOLE on CPAP (G47.33) Patient reports difficulty using CPAP due to low settings and previous severe lung obstruction. Last sleep study over a year ago showed mild NICOLE with minimal REM sleep. - Request sleep study results from [facility] [address]. - Consider repeat sleep study to reassess current NICOLE severity and CPAP settings. 4. Encounter for therapeutic drug level monitoring (Z51.81) Patient on theophylline with previous high doses; current dose reduced due to potential liver issues. - Ordered theophylline level to assess current therapeutic range. I spent a total of 65 minutes on the date of the service which included preparing to see the patient, [id number] patient care, completing clinical documentation, obtaining and/or reviewing separately obtained history, performing a medically appropriate examination, counseling and educating the pat ient/family/caregiver, and ordering medications, tests, or procedures. Discussed with the patient who agrees to the plan. Return in about 4 weeks (around 11/23/2024). Gabi Marroquin APRN.[facility] Pulmonary Medicine [facility] Addendum 10:39 AM October 28, 2024: Spoke with Dr. Gordillo 10/27/24, will have patient to see allergy and determine if she can use nebulized budesonide for treatment of asthma prior to starting biologic therapy. Received 2 doses last admission (0.5mg on 09/05/2024 7AM and 11AM) and tolerated it. Hospitalized in August: REASON FOR HOSPITALIZATION/PRINCIPAL DIAGNOSES: Severe asthma exacerbation HOSPITAL PROBLEMS: Principal Problem (Resolved): Acute on chronic respiratory failure with hypoxia and hypercapnia (HCC) (POA: Yes) Active Problems: Esophageal reflux (POA: Yes) Irritable bowel syndrome (POA: Yes) Severe persistent asthma with (acute) exacerbation (POA: Yes) Moderate protein-calorie malnutrition (HCC) (POA: Yes) Fibromyalgia (POA: Yes) NICOLE on CPAP (POA: Yes) Primary hypertension (POA: Yes) Fatty liver (POA: Yes) Other specified hypothyroidism (POA: Yes) Drug allergy, multiple (POA: Yes) Prolonged QT interval (POA: No) Malnutrition of moderate degree (HCC) (POA: Yes) Delirium (POA: No) Glaucoma (POA: Yes) Gout (POA: Yes) Bipolar 1 disorder (HCC) (POA: Yes) Anxiety, generalized (POA: Yes) DAWOOD positive (POA: Yes) Chronic respiratory failure with hypoxia (HCC) (POA: Yes) Hidradenitis suppurativa (POA: Yes) Mild mitral regurgitation (POA: Yes) Pulmonary hypertension (HCC) (POA: Yes) Hypertriglyceridemia (POA: Yes) Rheumatoid arthritis involving both hands (HCC) (POA: Yes) Obesity, Class II, BMI 35-39.9 (POA: Yes) HOSPITAL COURSE: This is a 54 year old female with a PMHx of Fibromyalgia, RA, Depression, Glaucoma, Severe Asthma/COPD, NICOLE on CPAP, 30 pack year former Smoker, HTN, Fatty Liver, GERD, Hypothyroidism and Spinal Stenosis with Lower Back Pain who presented to OSH ED on 09/01 with shortness of breath. At baseline sheuses 1 L NC, she had to increase it to 4L due to symptoms. EMS was called. When EMS arrived SpO2 85% on NC 4 liters, was given breathing treatments en route. While at the OSH patient with labored breathing. Patient was treated with albuterol treatments and theophylline and placed on BiPAP, COVID-19negative. Hospital course was complicated by MICU stay for AHRF and worsening hypercapnia, requiring intubation 09/01 and extubated 09/05, and anxiety (requiring PRN atarax and ativan). Patient with hx of multiple allergies which has made treatment for asthma difficult. She was adamant that she had an allergy to dexamethasone but has prev tolerated. Allergy consulted during MICU stay and this was confirmed. P atient agreeable to try and tolerated. She was continued on IV dexamethasone and is discharge on taper for 6 additional days of PO. Pulmonary was consulted for optimization of her asthma. Her PFT's show improvement with a bronchodilator and she would benefit from a long-acting one. She reported that in the past she did not tolerate Duonebs or ipratroproim (felt throat closing) but is open to trying again. She was scheduled on duonebs QID and tolerated them greatly with significant improvement in symptoms. Due to this, pulmonary recommended the patient discharge on stiolto and prn duonebs which was prescribed. Pulmonary willarrange outpatient follow up. She will continue theophyline at 100 mg dose BID. ENT follow up requested and to be scheduled for evaluation of possible ILO. Patient is going to reach out to sleep medicine to adjust CPAP settings and she was having difficulty using her machine at home. Psychiatry followed during hospitalization for anxiety and other psychiatric history. Psychiatry recommended to stop prior to admission nortriptyline and to continue to hold on discharge. Recommendedto discharge on prn atarax which has been prescribed. Also recommended to change gabapentin dosing to 400 mg in AM, 400 mg in afternoon and 900 mg at bedtime to help with insomnia. Patient received pneumonia vax prior to discharge. RSV vaccine ordered but patient was not willing to wait for this to be administered. Patient is discharging home in stable condition. PCP follow up requested and to be scheduled, pulm to schedule close follow up. OPERATIONS/PROCEDURE DURING THIS HOSPITALIZATION: * No surgery found * CONSULTS DURING HOSPITALIZATION: Treatment Team: Attending Provider: Morgan Yanez MD Primary Service: GI 4 Nurse Practitioner: Arabella Luciano APRN.ANDREA PATIENT CONDITION AT DISCHARGE: Good DISCHARGE DISPOSITION: Home with Self Care Today, Tasha reports stable respiratory status, denying wheezing, chest tightness, or dyspnea. She has used albuterol maybe once since last visit and is adherent to Stiolto, which she believes is effective in maintaining airway patency. She has not required supplemental oxygen recently. .She is aware of her environmental triggers and actively avoids them, including recent mold remediation in her home by her . She reports a recent diagnosis of oral thrush, treated with a 2-week course of nystatin. She continues to experience significant mucus production and drainage. A recent evaluation by an ENT revealed nearly occluded nasal passages and a deviated septum. She was prescribed Flonase and Astelin but is unable to tolerate Flonase. She is willing to try Astelin and continues to use Singulair, cetirizineBID, Benadryl PRN, and Mucinex 12-hour expectorant. Tasha is also managing GERD with pantoprazole BID and a newly prescribed famotidine by her ENT to further reduce acid levels. She is scheduled for a colonoscopy, endoscopy, FibroScan, and ultrasound to evaluate liver function before initiating biologic therapy for recently diagnosed lupus. She reports challenges with her CPAP therapy for sleep apnea, including issues with her equipment provider and a pending sleep study in January. She expresses frustration with the process and is exploring options to expedite her evaluation Current Medication Regimen: Albuterol Duoneb Stiolto Singulair zyrtec Comorbidities: ASA allergy: per chart aspirin allergy Obesity: yes Rheumatology - reported history of positive DAWOOD, diagnosed with RA Exposures Smoking: former: quit 2006 ACT: PAST MEDICAL AND SOCIAL HISTORY PAST MEDICAL HISTORY Diagnosis Date Acute on chronic respiratory failure with hypoxia and hypercapnia ([facility]) 09/01/2024 DAWOOD positive 03/31/2024 Anxiety, generalized 09/08/2024 Bipolar 1 disorder (HCC) 09/08/2024 Cervical spondylosis without myelopathy Chronic respiratory failure with hypoxia (HCC) 09/08/2024 Delirium 09/06/2024 Drug allergy, multiple 09/01/2024 Elevated total protein 06/30/2024 Esophageal reflux Fatty liver 09/01/2024 Glaucoma 09/08/2024 Stints placed in both eyes on 2019 Gout 09/08/2024 For at least 8 years Hidradenitis suppurativa 09/08/2024 Hypercalcemia 06/30/2024 Hypertriglyceridemia 09/08/2024 Irritable bowel syndrome Malnutrition of moderate degree (HCC) 09/02/2024 Migraine without aura Mild mitral regurgitation 03/31/2024 Moderate protein-calorie malnutrition (HCC) 07/24/2024 Obesity, Class II, BMI 35-39.9 09/09/2024 NICOLE on CPAP 09/01/2024 Primary hypertension 09/01/2024 Prolonged QT interval 09/02/2024 Pulmonary hypertension ([facility]) 09/10/2022 Rheumatoid arthritis involving both hands ([facility]) 09/08/2024 Severe persistent asthma with status asthmaticus ([facility]) 07/01/2024 Unspecified asthma(493.90) Social History Tobacco Use Smoking status: Former Current packs/day: 0.00 Types: Cigarettes Quit date: 04/01/2007 Years since quittin.6 Passive exposure: Past Smokeless tobacco: Current Vaping Use Vaping status: Never Used Substance Use Topics Alcohol use: No Drug use: No CURRENT MEDICATIONS AND ALLERGIES Current Outpatient Medications Medication Sig Dispense Refill azelastine 0.1% nasal spray 1 spray in each nostril twice daily for 30 days 30 mL 4 CPAP/BIPAP/OTHER Type .CPAPSettings into a note to see current settings/supplies/DME information. 1Each 0 tiotropium-olodaterol (STIOLTO RESPIMAT) 2.5-2.5 mcg/actuation inhaler Inhale 2 Puffs as instructedonce daily. 12 g 4 ALPRAZolam (XANAX) 1 mg tablet Take 1 mg by mouth at bedtime as needed. famotidine (PEPCID) 40 mg tablet Take 1 tablet by mouth once daily. 90 tablet 2 ipratropium-albuterol (DUONEB) 0.5 mg-3 mg(2.5 mg base)/3 mL nebu Inhale 3 mL as instructed every 6hours as needed for wheezing/shortness of breath. 360 mL 4 tiotropium-olodaterol (STIOLTO RESPIMAT) 2.5-2.5 mcg/actuation inhaler Inhale 2 Puffs as instructedonce daily. 4 g 2 gabapentin (NEURONTIN) 300 mg capsule Take 3 capsules by mouth daily at bedtime for 30 days. 90 capsule 0 theophylline ER 100 mg 12 hr tablet Take 1 tablet by mouth two times a day. 60 tablet 2 rhubarb root extract (ESTROVEN CMPLT MENOPAUSE RLF) 4 mg tab Take by mouth. cholecalciferol (VITAMIN D-3) 5,000 unit tab Take 5,000 Units by mouth once daily. levothyroxine (SYNTHROID) 50 mcg tablet Take 50 mcg by mouth daily before breakfast. febuxostat (ULORIC) 40 mg tab Take by mouth once daily. metoprolol succinate ER (TOPROL XL) 25 mg 24 hr tablet Take 50 mg by mouth once daily. amLODIPine (NORVASC) 2.5 mg tablet Take by mouth once daily. montelukast sodium(SINGULAIR 10 MG TAB) Take one(1) tablet daily at bedtime. 0 0 cetirizine hcl(ZYRTEC 10 MG TAB) Take 10 mg by mouth two times a day. 0 0 ALBUTEROL 90 MCG/ACTUATION AEROSOL INHALER Inhale one(1) - two(2) puffs four(4) times a day as needed for wheezing and shortness of breath. 0 0 pantoprazole sodium(PROTONIX 40 MG TAB) Take 40 mg by mouth two times a day. 0 0 promethazine hcl(PHENERGAN 25 MG TAB) as necessary 0 0 hydrOXYchloroQUINE (PLAQUENIL) 200 mg tablet Take 2 tablets by mouth once daily. (Patient not taking: Reported on 11/22/2024) 60 tablet 2 gabapentin (NEURONTIN) 400 mg capsule Take 400 mg by mouth at 9 am and 400 mg at 2 pm 60 capsule 0 No current facility-administered medications for this visit. ALLERGIES Allergen Reactions Adhesive Tape-Silic* Hives Advair Diskus [Flut* Anaphylaxis Arthrotec 50 [Diclo* Aspartame Itching Aspirin Codeine Depo-Provera [Medro* Elavil [Amitriptyli* Eryc [Erythromycin] Flonase Headache-Al* Swelling sneezing Ibu-200 [Ibuprofen] Imitrex [Sumatripta* Latex Medrol [Methylpredn* Nsaids (Non-Steroid* Hives Nubain [Nalbuphine * Prednisone Unknown Tolerated dexamethasone during hospitalization 08/2024 Relafen [Nabumetone] Steroids [Betametha* Other: See Comments Difficulty breathing hives Tolerated inhaled budesonide during hospitalization 09/05 Stevia [Stevioside * Intolerance Toradol [Ketorolac * Trazodone Xoszgfqm-6-Mq3 Anti* Other: See Comments Shooting pain from chest down arm Vicodin [Hydrocodon* Vioxx [Rofecoxib] Zanaflex [Tizanidin* REVIEW OF SYSTEMS Review of Systems Constitutional: Negative for chills and fever. HENT: Positive for congestion and postnasal drip. Respiratory: Negative for cough, chest tightness, shortness of breath and wheezing. Cardiovascular: Negative for chest pain and leg swelling. PHYSICAL EXAM BP 144/71 Pulse 72 Temp (Src) 98.2 (Temporal) Resp 16 Wt 206 lb 12.7 oz (93.8kg) SpO2 97% LMP 01/31/2011 Physical Exam Cardiovascular: Rate and Rhythm: Normal rate and regular rhythm. Pulses: Normal pulses. Heart sounds: Normal heart sounds. Pulmonary: Effort: Pulmonary effort is normal. Breath sounds: Normal breath sounds. Musculoskeletal: Right lower leg: No edema. Left lower leg: No edema. Skin: General: Skin is warm and dry. Capillary Refill: Capillary refill takes less than 2 seconds. Neurological: Mental Status: She is alert. DIAGNOSTIC REVIEW I personally reviewed and interpreted the labs, PFTs and radiographs. Radiology: 09/03/2024 RESULT: Lines, tubes, and devices: The NG/OG tube courses below the hemidiaphragm into the stomach, tip beyond the kloor-fl-xpor. Patient remains intubated. Lungs and pleura: There are mild scattered patchy opacities in both lungs. No substantial pleural effusions or definite pneumothorax is identified. Cardiomediastinal silhouette: The cardiomediastinal silhouette is stable since the prior exam. Other: Spirometry: 10/26/2024 FeNO: Test Date Oral Exhaled Nitric Oxide (ppb) 10/26/2024 34.0 06/30/2024 69.0 (A) Labs: Abs Eosin Date Value Ref Range Status 10/27/2024 0.46 (H) <0.46 k/uL Final 07/25/2024 0.52 (H) <0.46 k/uL Final 07/24/2024 0.69 (H) <0.46 k/uL Final 07/23/2024 0.10 <0.46 k/uL Final IgE Date Value Ref Range Status 07/24/2024 89.9 <114.0 kU/l Final Immunizations: Immunization History Administered Date(s) Administered influenza (IIV3) vaccine, trivalent, PF (AFLURIA, FLUARIX, FLULAVAL, FLUVIRIN, FLUZONE) 04/08/2016 08/15/2024 influenza (IIV4) vaccine, age 6 mo - 64 yr, quadrivalent, PF (AFLURIA, FLUARIX, FLULAVAL, FLUZONE) 03/15/2017 05/13/2018 05/19/2020 06/03/2023 influenza vaccine, southern hemisphere, unspecified formulation 05/10/2017 influenza vaccine, unspecified formulation 05/10/2017 05/11/2019 pneumococcal conjugate (PCV13) vaccine, 13 valent (PREVNAR 13) 03/15/2017 pneumococcal conjugate (PCV20) vaccine, 20 valent (PREVNAR 20) 09/09/2024 tetanus diphtheria pertussis (Tdap) vaccine, age 7+ yr (ADACEL, BOOSTRIX) 12/03/2012 Deferred Date(s) Deferred respiratory syncytial virus (RSV) vaccine, bivalent (ABRYSVO) 09/09/2024 [facility] History of Present illness Narrative* Ruddy Santana MD - 11/22/2024 9:33 AM EDT Images from the original note were not included. SECTION OF RHINOLOGY, SINUS AND SKULL BASE SURGERY Head and Neck [place], [place] NOTE HPI: Patient is a 54 year old F who presents for consult in refractory obstruction of nasal airway/DNS. She has tried azelastine in the past but it did not help her symptoms. PAST MEDICAL HISTORY Diagnosis Date Acute on chronic respiratory failure with hypoxia and hypercapnia (HCC) 09/01/2024 DAWOOD positive 03/31/2024 Anxiety, generalized 09/08/2024 Bipolar 1 disorder (HCC) 09/08/2024 Cervical spondylosis without myelopathy Chronic respiratory failure with hypoxia (HCC) 09/08/2024 Delirium 09/06/2024 Drug allergy, multiple 09/01/2024 Elevated total protein 06/30/2024 Esophageal reflux Fatty liver 09/01/2024 Glaucoma 09/08/2024 Stints placed in both eyes on 2019 Gout 09/08/2024 For at least 8 years Hidradenitis suppurativa 09/08/2024 Hypercalcemia 06/30/2024 Hypertriglyceridemia 09/08/2024 Irritable bowel syndrome Malnutrition of moderate degree ([facility]) 09/02/2024 Migraine without aura Mild mitral regurgitation 03/31/2024 Moderate protein-calorie malnutrition ([facility]) 07/24/2024 Obesity, Class II, BMI 35-39.9 09/09/2024 NICOLE on CPAP 09/01/2024 Primary hypertension 09/01/2024 Prolonged QT interval 09/02/2024 Pulmonary hypertension (HCC) 09/10/2022 Rheumatoid arthritis involving both hands (HCC) 09/08/2024 Severe persistent asthma with status asthmaticus 07/01/2024 Unspecified asthma(493.90) PAST SURGICAL HISTORY Procedure Laterality Date LAPAROSCOPY SURG CHOLECYSTECTOMY Cholecystectomy, lap LIG/TRNSXJ FLP TUBE ABDL/VAG APPR UNI/BI Tubal ligation PAST SURGICAL HISTORY OF benign tumors on flank PAST SURGICAL HISTORY OF cervical fusion TONSILLECTOMY PRIMARY/SECONDARY <AGE 12 Tonsillectomy FAMILY HISTORY Problem Relation Age of Onset Hypertension Father Diabetes Maternal Aunt Diabetes Maternal Uncle Cancer Mother cervical Cancer Sister cervical Social History Tobacco Use Smoking status: Former Current packs/day: 0.00 Types: Cigarettes Quit date: 04/01/2007 Years since quittin.6 Passive exposure: Past Smokeless tobacco: Current Vaping Use Vaping status: Never Used Substance Use Topics Alcohol use: No Drug use: No Current Outpatient Medications Medication Sig Dispense Refill tiotropium-olodaterol (STIOLTO RESPIMAT) 2.5-2.5 mcg/actuation inhaler Inhale 2 Puffs as instructedonce daily. 12 g 4 ALPRAZolam (XANAX) 1 mg tablet Take 1 mg by mouth at bedtime as needed. famotidine (PEPCID) 40 mg tablet Take 1 tablet by mouth once daily. 90 tablet 2 ipratropium-albuterol (DUONEB) 0.5 mg-3 mg(2.5 mg base)/3 mL nebu Inhale 3 mL as instructed every 6hours as needed for wheezing/shortness of breath. 360 mL 4 tiotropium-olodaterol (STIOLTO RESPIMAT) 2.5-2.5 mcg/actuation inhaler Inhale 2 Puffs as instructedonce daily. 4 g 2 gabapentin (NEURONTIN) 300 mg capsule Take 3 capsules by mouth daily at bedtime for 30 days. 90 capsule 0 theophylline ER 100 mg 12 hr tablet Take 1 tablet by mouth two times a day. 60 tablet 2 rhubarb root extract (ESTROVEN CMPLT MENOPAUSE RLF) 4 mg tab Take by mouth. cholecalciferol (VITAMIN D-3) 5,000 unit tab Take 5,000 Units by mouth once daily. levothyroxine (SYNTHROID) 50 mcg tablet Take 50 mcg by mouth daily before breakfast. febuxostat (ULORIC) 40 mg tab Take by mouth once daily. metoprolol succinate ER (TOPROL XL) 25 mg 24 hr tablet Take 50 mg by mouth once daily. amLODIPine (NORVASC) 2.5 mg tablet Take by mouth once daily. montelukast sodium(SINGULAIR 10 MG TAB) Take one(1) tablet daily at bedtime. 0 0 cetirizine hcl(ZYRTEC 10 MG TAB) Take 10 mg by mouth two times a day. 0 0 ALBUTEROL 90 MCG/ACTUATION AEROSOL INHALER Inhale one(1) - two(2) puffs four(4) times a day as needed for wheezing and shortness of breath. 0 0 promethazine hcl(PHENERGAN 25 MG TAB) as necessary 0 0 azelastine 0.1% nasal spray 1 spray in each nostril twice daily for 30 days 30 mL 4 CPAP/BIPAP/OTHER Type .CPAPSettings into a note to see current settings/supplies/DME information. 1Each 0 hydrOXYchloroQUINE (PLAQUENIL) 200 mg tablet Take 2 tablets by mouth once daily. (Patient not taking: Reported on 11/22/2024) 60 tablet 2 gabapentin (NEURONTIN) 400 mg capsule Take 400 mg by mouth at 9 am and 400 mg at 2 pm 60 capsule 0 pantoprazole sodium(PROTONIX 40 MG TAB) Take 40 mg by mouth two times a day. 0 0 No current facility-administered medications for this visit. ALLERGIES Allergen Reactions Adhesive Tape-Silic* Hives Advair Diskus [Flut* Anaphylaxis Arthrotec 50 [Diclo* Aspartame Itching Aspirin Codeine Depo-Provera [Medro* Elavil [Amitriptyli* Eryc [Erythromycin] Flonase Headache-Al* Swelling sneezing Ibu-200 [Ibuprofen] Imitrex [Sumatripta* Latex Medrol [Methylpredn* Nsaids (Non-Steroid* Hives Nubain [Nalbuphine * Prednisone Unknown Tolerated dexamethasone during hospitalization 08/2024 Relafen [Nabumetone] Steroids [Betametha* Other: See Comments Difficulty breathing hives Tolerated inhaled budesonide during hospitalization 09/05 Stevia [Stevioside * Intolerance Toradol [Ketorolac * Trazodone Lcviexmw-6-Fe9 Anti* Other: See Comments Shooting pain from chest down arm Vicodin [Hydrocodon* Vioxx [Rofecoxib] Zanaflex [Tizanidin* ROS: CONSTITUTIONAL: No fevers, chills, nightsweats, unintended weight loss HEENT: HEENT: Yes symptoms: sinus pressure and nasal congestion, No symptoms: headaches, epistaxis,sense of smell absent, and nasal drainage both EYES: No diplopia or blurry vision. PHYSICAL EXAM: 11/22/24 0924 Temp: 37.1 C (98.8 F) General appearance: well developed, well nourished, without obvious deformities Nasal exam: The mucosa is pink, the septum is Yes deviated, and the visible turbinates are No hypertrophied on anterior rhinoscopy, nasal polyps (0 L, 0 R) Procedure: Diagnostic rigid nasal endoscopy Consent: verbal consent obtained Surgeon: Ruddy Santana MD Anesthesia: The patient was sprayed with 4% topical lidocaine and Afrin. A rigid nasal scope was utilized to examine the patient nose Findings: A 30-degree rigid endoscope was passed through the patient's bilateral nares. The first pass was along the floor of the nose to the nasopharynx. The second pass was to the area of the middle meatus. The third pass was to the sphenoethmoidal recess. Septum: R/L Nasal cavity No nasal polyps (0 L, 0 R) Right nasal cavity: Inferior turbinate: Hypertrophied Inferior meatus: Clear, no discharge, no polyps/masses/lesions Middle meatus: Clear, no discharge, no polyps/masses/lesions Middle turbinate: Normal in size Sphenoethmoidal recess: Clear, no discharge, no polyps/masses/lesions Left nasal cavity: Inferior turbinate: Hypertrophied Inferior meatus: Clear, no discharge, no polyps/masses/lesions Middle meatus: Clear, no discharge, no polyps/masses/lesions Middle turbinate: Normal in size Sphenoethmoidal recess: Clear, no discharge, no polyps/masses/lesions Nasopharynx: Clear, no discharge, no masses/lesions UPSIT:None No results found for: REVW , BMPNOTE , ALRG5 Last CT Sinus - Impression Only No resulted procedures found. ASSESSMENT/PLAN: Meredith Chaidez presents for consult. Nasal examination showed deviated septum, inflammation. Prescribed Flonase and azelastine. Will follow up in [address] scan . 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 DNS (deviated nasal septum) - ICD9: 470, ICD10: J34.2 - Start azelastine 0.1% nasal spray - Follow up in 6 weeks SNOT-22 Nasal Score Ear/Facial Score Sleep Score Function Score Emotion Score Total Score 11/08/2024 18 9 19 10 5 61 11/20/2024 19 11 18 11 5 64 PROMIS-10 Flowsheet Row Office Visit from 10/26/2024 in Pulmonary Medicine Most recent reading at 10/26/2024 10:25 AM Office Visit from 10/26/2024 in Otolaryngology Most recent reading at 10/19/2024 11:45 AM Global Physical Health T Score 32.4 32.4 Global Mental Health T Score 36.3 36.3 0-10 Standard Pain Scale 2 2 Scribe Attestation: By signing my name below, I, Jacquelin Aranda, attest that this documentation has been prepared under the direction and in the presence of Dr. Ruddy Santana MD. Electronically Signed: Ronak Lua, November 22, 2024 9:41 AM Provider Attestation: I, Dr.Mohamad Santana, personally performed the services described in this documentation. All medical record entries made by the RECOVERY ROOM RN/PA/scribe/resident/fellow were at my direction and in my presence. I have reviewed the chart and agree that the record reflects my personal performance and is accurate and complete. documented in this [facility]04-[facility]25 Telephone encounter Note * Telephone Encounter - Darya Smith - 11/19/2024 8:01 AM EDT All procedures are scheduled [place] [id number] Miscellaneous Notes* Telephone Encounter - Darya Smith - 11/19/2024 8:01 AM EDT All procedures are scheduled * Telephone Encounter - Darya Smith - 11/18/2024 2:07 PM EDTSummary: 1st attempt LVM for pt to call back, she has several things to schedule * Telephone Encounter - Yaz Webb RN - 11/18/2024 10:56 AM EDT Setup for EGD and colonoscopy; orders placed. Check RUQ US, fibroscan, and repeat labs; orders placed. Soy Reyes Jr., DO Called and discussed in detail the above recommendations. Pt will get RUQ and labs done at [facility]. Schedulers, please call pt to set EGD/colonoscopy and also fibroscan. Thank you Yaz Webb RN * Telephone Encounter - Yaz Webb RN - 11/17/2024 4:25 PM EDT Please find out her issue as we may be able to order some testing prior to her visit and also what testing she may have already had done. Ok to add on for office visit December 31 at 12:40 or if she needs seen sooner maybe check if one of the nurse practioners have any availability. Soy Reyes Jr., DO Pt states she now has RA, Lupus and several medical conditions recently diagnosed. She was going tobegin biologics but was told they could affect her liver and she should see GI. I was under the impression she had elevated liver enzymes but I do not see that from her recent labs. She went on the mention she has upper GI symptoms all the way down to lower GI symptoms and nothing is normal from the top to the bottom. She advises last EGD/colonoscopy were done by you about 4 years ago and she hash/o colon polyps. She states she has multiple allergies as well and her hip hop artist/art psychotherapist is unsure of what medications would be a good fit for her. She reports she was in respiratory failure at the beginning of the year and spent time on a ventilator. After conversation was over, still rather unsure of what her main diagnosis is that she is being referred for. Thinking an office visit would be best. Please review and advise. Thank you. Yaz Webb RN * Telephone Encounter - Yaz Webb RN - 11/16/2024 1:[address] Reyes, please see attached notes. Not sure where pt may be fit in for a sooner office visit. Please review and advise. Thank you Yaz Webb RN * Telephone Encounter - Sheeba Milton - 11/16/2024 9:30 AM EDT Tasha is calling Soy Reyes Jr., DO today with concern regarding needing to be seen sooner by Dr. Reyes. Patient has an [facility] order for Gastro due to some Lupus flare ups and trying to get treated.Patient's family engagement specialist put in an [facility] order for Gastro but there is nothing available. Patient ishoping that Dr. Reyes will be able to fit her into the schedule sooner. Patient states that she wasa patient with Dr. Reyes when he was at [facility]. Please call patient and advise. Patient has been identified by name and birthdate. Duration of symptoms: N/A Person calling: self Call patient at: at home [phone] (home) [phone] (cell) Was an appointment scheduled: No Closing statement: Results or non-symptom based questions: Thank you for calling [facility], your call will be returned within the next business day. Sheeba Milton documented in [facility] encounter[facility]04-[facility]25 Telephone encounter Note * Telephone Encounter - Darya Smith - 11/18/2024 2:07 PM EDTSummary: 1st attempt LVM for pt to call back, she has several things to schedule [facility]04-10-2025 Telephone encounter Note* Telephone Encounter - Yaz Webb RN - 11/18/2024 10:56 AM EDT Setup for EGD and colonoscopy; orders placed. Check RUQ US, fibroscan, and repeat labs; orders placed. Soy Reyes Jr., DO Called and discussed in detail the above recommendations. Pt will get RUQ and labs done at [facility]. Schedulers, please call pt to set EGD/colonoscopy and also fibroscan. Thank you Yaz Webb RN [facility]04-10-2025 Instructions* Patient Instructions* Soy Reyes Jr., DO - 11/18/2024 7:18 AM EDT COLONOSCOPY BOWEL [facility]PAR[facility] Your doctor has scheduled you for a colonoscopy. To have a successful colonoscopy, you must have a clean colon, that is empty. A clean colon allows your doctor to see the entire colon & diagnose issues like polyps or cancer. For doctors, a clean colon is like driving on a becky day; a dirty colon like driving in a storm. It is very important that you follow these instructions exactly, or your colonoscopy may not be as effective, could be canceled, and you may need to do the bowel prep and colonoscopy again. TRANSPORTATION REQUIREMENTS You are receiving IV sedation. For your safety, a responsible adult escort must accompany you to and from your procedure: Your adult escort MUST be present with you at check-in for your colonoscopy. Your adult escort MUST remain in the endoscopy area until you are discharged. Your adult escort MUST transport you home once you are discharged. You are NOT allowed to operate any form of transportation (i.e. drive a car, bicycle, etc) or leavethe Endoscopy Center ALONE. It is not safe to do so. If you cannot meet these requirements, your procedure will be canceled. MEDICATION REQUIREMENTS For your safety, certain medications will need to be stopped or adjusted before you can have your procedure: BLOOD THINNERS: If you take blood thinners, such as Coumadin (warfarin), Plavix (clopidogrel), Ticlid (ticlopidine hydrochloride), Agrylin (anagrelide), Xarelto (Rivaroxaban), Pradaxa (Dabigatran), Eliquis (Apixaban), or Effient (Prasugrel), contact the physician who is prescribing these medications at least 2 weeks prior to your procedure to discuss any necessary adjustments. DIABETES: If you take medications for diabetes, your dosage may need to be adjusted. If you are being treated for diabetes with insulin, diabetic pills, or other injectable medicationsdo not take your REGULAR dose after midnight on the day of your procedure. If you are taking any other types of insulin such as Lantus, Humalog, NPH (long- acting insulin), or70/30 insulin, take half your normal dose the day before your procedure. DIABETES/WEIGHT MANAGEMENT: If you take medications for weight-loss, your dosage may need to be adjusted Contact the doctor who prescribes this medication for further instructions. If you take medications for weight-loss like semaglutide (Ozempic, Wegovy, Rybelsus), dulaglutide (Trulicity), liraglutide (Victoza, Saxenda), exenatide (Byetta, Bydureon), or lixisenatide (Adylyxin), stop your medication 1 week prior to your procedure. If you take medications like canagliflozin (Invokana), dapagliflozin (Farxiga, Forxiga), empagliflozin (Jardiance), stop your medication 3 days prior to your procedure. If you take ertugliflozin (Steglatro) stop your medication 4 days prior to your procedure. IRON: If you take iron pills, STOP them 1 week BEFORE your procedure, may resume after. OTHER MEDS: May take all other medications (including aspirin, antibiotics, water pills / diureticslike Lasix or Metolozone, blood pressure meds, etc.) at their usual scheduled time with water. DIET REQUIREMENTS The day before your colonoscopy, you may have a clear liquid diet (see below). The day of your colonoscopy, you may continue a clear liquid diet until 3 hours before your colonoscopy. Within 3 hours of your colonoscopy, take only any medications (as above) with a sip of water. Clear Liquid Diet Broth (chicken, beef or vegetable broth or bullion. Just the broth, no solids). Water Coffee or Tea (NO milk or creamer), but sugar and sugar substitutes are allowed. Clear liquids including clear, yellow, green, blue (NO red, NO orange, NO purple) Sodas / soft drinks; Gatorade or other sports drinks Fruit juice (strained; no-pulp); Roe-Aid or flavored drinks Plain Jell-O or other gelatins Popsicles or hard candy Bowel prep can work differently from person to person. Some people's bowels move slowly and they may need different instructions. Please see your doctor in office or virtually for personalized bowel prep instructions if you have: BOWEL PREPARATION (MIRALAX/GATORADE) Split Dosing Bowel Prep: This means drinking your bowel prep in two doses. Split dosing helps cleanyour colon better and makes it less likely that your procedure will be canceled. You will need to purchase the following (no prescriptions are needed): 64 ounces Gatorade, Propel, Crystal Lite or other noncarbonated clear liquid sports drink (NOT red,orange, or purple). Diabetic patients buy sugar-free, e.g. Gatorade G2 4 Dulcolax laxative tablets containing 5mg bisacodyl each (do not buy the stool softener) 8.3 oz MiraLAX (238g) powder or generic polyethylene glycol 3350 (find in laxative aisle) The day before your colonoscopy mix 64 oz of the sports drink with 8.3 oz MiraLAX (238 g) in a pitcher. Stir or shake until MiraLAX completely dissolved. Chill if desired. On the evening before your colonoscopy: 5 PM take 4 Dulcolax laxative tablets with water by mouth. 6 PM drink the first half of the Gatorade/MiraLAX solution Drink one 8-ounce glass every 15 minutes. Six hours before your colonoscopy, drink the second half of the solution. Drink one 8-ounce glass every 15 minutes. You may continue a clear liquid diet until 3 hours before your colonoscopy. Bowel prep can work differently from person to person. Some people's bowels move slowly and they may need different instructions. Please see your doctor in office or virtually for personalized bowel prep instructions if you have: Medical condition that needs special accommodations Had a poor bowel prep results or failed bowel prep attempts in the past. Had difficulty with anesthesia during the procedure. FREQUENTLY ASKED QUESTIONS Q: What if I suffer from constipation? A: Recommend taking extra laxatives to resolve your constipation days prior to entering the bowel prep day. Q: What if have had prior poor preps results in past? A: Contact your physician as you will likely need additional bowel prep instructions. Q: What if I have motility issues like Parkinson's, MS (multiple sclerosis), wheelchair dependent, etc.? or on medications that slow colonic transit times (narcotics, gabapentin, anticholinergic medications etc.) A: Contact your physician as you will likely need extra time and additional laxatives to complete your bowel prep. Q: What if I cannot drink large volume of liquid? A: Start your prep 2-3 hours earlier to allow yourself more time to complete the entire prep. Q: What if I had bariatric surgery? Do I still have to complete the entire prep? A: Yes, gastric bypass surgery involves the stomach & small bowel. You may need to drink smaller amounts, slower (may need more time to complete your bowel prep). Gastric bypass does not alter the length of your colon so you will need to complete the entire bowel prep, it may just take longer time to complete it. Q: What if I am on dialysis? A: Please consult your battery container finishing hand prior to scheduling to get instructions pertinent to you. In general, dialysis patients take the Golytely bowel prep and have the procedure same day of their dialysis (colonoscopy in AM, dialysis in PM). Q: How do I know if something is considered as clear liquid diet? A: If you can pour it in a glass and you can see through it, it is considered clear liquid Q: Can I eat nuts, seeds, beans, popcorn, dried fruits, vegetables & fruits that have skin peel? A: No, you will need to not eat these items starting 3 days prior to procedure. Q: Can I take Uber/Lyft/taxi/bus home? A: An adult MUST be present with you at check-in for your colonoscopy and remain in the endoscopy area until you are discharged. You can take Uber home only if this adult escort is with you at check in, remain in the endoscopy area until you are discharged, and takes the Uber with you to home. Q: Can I sleep it off here and drive myself home? A: No, you must have an adult with you at time of procedure check in, remain in the endoscopy center during your procedure, and drive you home. You cannot drive a vehicle after your procedure the rest of the day. Q: What if I can't finish my bowel prep? A: If you cannot complete your entire bowel prep, there is high likelihood that your colonoscopy will need to be rescheduled due to inadequate prep quality. documented in this encounterM[facility]04-09-2025 Telephone encounter Note * Telephone Encounter - Yaz Webb RN - 11/17/2024 4:25 PM EDT Please find out her issue as we may be able to order some testing prior to her visit and also what testing she may have already had done. Ok to add on for office visit December 31 at 12:40 or if she needs seen sooner maybe check if one of the nurse practioners have any availability. Soy Reyes Jr., DO Pt states she now has RA, Lupus and several medical conditions recently diagnosed. She was going tobegin biologics but was told they could affect her liver and she should see GI. I was under the impression she had elevated liver enzymes but I do not see that from her recent labs. She went on the mention she has upper GI symptoms all the way down to lower GI symptoms and nothing is normal from the top to the bottom. She advises last EGD/colonoscopy were done by you about 4 years ago and she hash/o colon polyps. She states she has multiple allergies as well and her hip hop artist/art psychotherapist is unsure of what medications would be a good fit for her. She reports she was in respiratory failure at the beginning of the year and spent time on a ventilator. After conversation was over, still rather unsure of what her main diagnosis is that she is being referred for. Thinking an office visit would be best. Please review and advise. Thank you. Yaz Webb RN [facility]04-08-2025 Telephone encounter Note* Telephone Encounter - Yaz Webb RN - 11/16/2024 1:[address] Reyes, please see attached notes. Not sure where pt may be fit in for a sooner office visit. Please review and advise. Thank you Yaz Webb RN [facility]04-08-2025 Telephone encounter Note* Telephone Encounter - Sheeba Milton - 11/16/2024 9:30 AM EDT Tasha is calling Soy Reyes Jr., DO today with concern regarding needing to be seen sooner by Dr. Reyes. Patient has an [facility] order for Gastro due to some Lupus flare ups and trying to get treated.Patient's family engagement specialist put in an [facility] order for Gastro but there is nothing available. Patient ishoping that Dr. Reyes will be able to fit her into the schedule sooner. Patient states that she wasa patient with Dr. Reyes when he was at [facility]. Please call patient and advise. Patient has been identified by name and birthdate. Duration of symptoms: N/A Person calling: self Call patient at: at home [phone] (home) [phone] (cell) Was an appointment scheduled: No Closing statement: Results or non-symptom based questions: Thank you for calling [facility], your call will be returned within the next business day. Sheeba Milton [facility]04-02-2025 Telephone encounter Note* Telephone Encounter - Priya Soni - 11/10/2024 9:13 AM EDT PAP THERAPY ORDER FAXED TO [facility] FAX: [phone] [facility]04-02-2025 Miscellaneous Notes* Telephone Encounter - Priya Soni - 11/10/2024 9:13 AM EDT PAP THERAPY ORDER FAXED TO [facility] FAX: [phone] documented in this encounterM[facility] Hospital03-24-2025 Note* Addendum Note - Eugene Del Castillo MD - 11/01/2024 11:56 AM EDTAddended by: EUGENE DEL CASTILLO on: 11/01/2024 11:56 AM Modules accepted: Orders [facility]03-24-2025 Miscellaneous Notes* Addendum Note - Eugene Del Castillo MD - 11/01/2024 11:56 AM EDTAddended by: EUGENE DEL CASTILLO on: 11/01/2024 11:56 AM Modules accepted: Orders documented in this encounterM[facility] Hospital03-21-2025 Telephone encounter Note * Telephone Encounter - Eugene Del Castillo MD - 10/29/2024 3:14 PM EDT I called the patient about the new results. DsDNA +ve RF and CCP +ve Calcium slightly elevated. We discussed XR mostly showed features of OA with no erosions or features of inflammatory arthritis. She did have widespread array of symptoms when seen last time, out of which inflammatory description of joint pain was part of it, with positive RF and CCP this is suggestive of RA along with strong family history. Not entirely sure what to make of DsDNA, with hx of inflammatory arthritis, subjective fevers, rash?? Although questionable this could represent lupus/RA overlap or RHUPUS. She reported that she is in tolerable pain, she is used to it and uses CBD/Tylenol when she has a bad day. She is allergic to prednisone/methylprednisolone (Psych issues), allergic to NSAIDs too and a llergic to many other medications. This is limiting our option to treat pain quickly, I told her that mostly DMARDs will take weeks to start working and I will update her on what we will use. I will discuss with Dae Guaman might be a reasonable option here. [facility]03-21-2025 Miscellaneous Notes* Telephone Encounter - Eugene Del Castillo MD - 10/29/2024 3:14 PM EDT I called the patient about the new results. DsDNA +ve RF and CCP +ve Calcium slightly elevated. We discussed XR mostly showed features of OA with no erosions or features of inflammatory arthritis. She did have widespread array of symptoms when seen last time, out of which inflammatory description of joint pain was part of it, with positive RF and CCP this is suggestive of RA along with strong family history. Not entirely sure what to make of DsDNA, with hx of inflammatory arthritis, subjective fevers, rash?? Although questionable this could represent lupus/RA overlap or RHUPUS. She reported that she is in tolerable pain, she is used to it and uses CBD/Tylenol when she has a bad day. She is allergic to prednisone/methylprednisolone (Psych issues), allergic to NSAIDs too and a llergic to many other medications. This is limiting our option to treat pain quickly, I told her that mostly DMARDs will take weeks to start working and I will update her on what we will use. I will discuss with Dae Guaman might be a reasonable option here. documented in this encounterM[facility]03-20-2025 Telephone encounter Note * Telephone Encounter - Gabi Marroquin APRN.CNP - 10/28/2024 1:58 PM EDT Her theophylline level was 6.7 - when I looked up therapeutic range it was 5 to 15 - not too familiar with managing this, what are your thoughts? [facility]03-20-2025 Miscellaneous Notes* Telephone Encounter - Gabi Marroquin APRN.CNP - 10/28/2024 1:58 PM EDT Her theophylline level was 6.7 - when I looked up therapeutic range it was 5 to 15 - not too familiar with managing this, what are your thoughts? documented in this encounterM[facility]03-19-2025 History of Present illness Narrative* Pearl Montoya RT(Cinthia) - 10/27/2024 12:30 PM EDT Radiology Service Progress Note PATIENT NAME: Meredith Chaidez DATE OF SERVICE: October 27, 2024 TIME: 1:50 PM PATIENT IDENTITY VERIFICATION COMPLETED USING TWO (2) IDENTIFIERS: Name and Date of confirmedby patient verbally. FALL SCREENING: Has the patient had 2 falls in the last year or 1 fall with injury or currently using an Ambulatory Assistive Device (Walker, Cane, Wheelchair, Crutches, etc.)? No PATIENT GENDER DATA: Assigned female at . status: : No status:NO. PATIENT RELEVANT IMPLANT DATA REVIEWED: Not Applicable PATIENT PRESENTS WITH AN IMPLANTABLE OR ATTACHED HIGH SCHOOL FRENCH TEACHER: No RADIOLOGY DEPARTMENT: General X-ray: Exam(s) Completed: Spine X-Ray(s): Lumbar AP / LAT / L5-S1 Pelvis X-Ray: Pelvis with Hip Bilateral Lower Extremity X-Ray(s): Ankle,1 view Bilateral and Foot, 1 view Bilateral Upper Extremity X-Ray(s): Hand, 1 view bilateral PERIPHERAL IV DATA: Not applicable SIGNED BY: RT Patti(Cinthia) October 27, 2024 1:50 PM documented in this encounterM[facility]03-19-2025 [facility]Bar[facility] Instructions* Patient Instructions* Eugene Del Castillo MD - 10/27/2024 12:05 PM EDT Please get blood work done on 1st floor today Please get XR done on 2nd floor today Once results are back, depending on them we might need an ultrasound of the hands (not now) I will update you on the results through my chart once everything is back documented in this encounterM[facility]03-19-2025 Telephone encounter Note * Telephone Encounter - Priya Soni - 10/27/2024 11:05 AM EDT [facility] Imported outside medical records There may be a delay before report appears in epic [facility]03-19-2025 Miscellaneous Notes* Telephone Encounter - Priya Soni - 10/27/2024 11:05 AM EDT [facility] Imported outside medical records There may be a delay before report appears in epic documented in this encounterM[facility] Hospital03-19-2025 History of Present illness Narrative* Maynor Hernandez MD - 10/27/2024 10:45 AM EDT Images from the original note were not included. Rheumatology CONSULTATION Date of Service: 10/27/2024 Patient: Meredith Chaidez Medical Record: [id number] Primary Care Physician: Eduin Perez DO Last Rheumatology visit: None at [facility] Referring Provider: Gabi Marroquin [address] [facility] [id number] Meredith Spencer Chaidez is here today at request of Dr. Gabi Marroquin specifically for consultation of my opinion in regards to the chief complaint listed below. Correspondence will be shared today via the [employer] record or through regular mail, where applicable. History of Present Illness Meredith Chaidez is a 54 year old White female who presents on 10/27/2024 for an in-person visit for evaluation of Joint Pain. Meredith reports a current pain level of 3 (hands, hip, and feet, most join pain) . She describes the pain as Aching, Sharp, Burning, Numbness, Tenderness, Stiffness, Stabbing, Tingling. The pain is Continuous . This is a 53 year old female with a PMH of Fibromylagia, OA, Midgraine, depression, hypertension, low back pain, DDD and spinal stenosis, fatty liver, GERD, approximately 30 pack year former smoker and severe persistent Asthma who presents for RA evaluation. The patient is being evaluated for resistant asthma, had recurrent admission for SOB, complicated by AHRF requiring intubation, and has history of multiple allergies which has made treatment for asthma difficult. Patient reports previous history of ?RA The patient reports history of joint pain for years, getting worse over the past 2-3 years, at somepoint she was told she had gout as she had high uric acid. Reports pain is present all the time, first thing in the morning, and last thing in the evening. Report AM stiffness, 10-20 minutes Reports swelling in the knuckles limiting her ability to make a fist in the morning Reports this is worst in the right hip, right thumb, the whole right foot Worsens with activity but also would have stiffness with prolonged rest She reported multiple allergies including to prendisone but was able to have dexamethasone while inpatient, she was intubated so unclear if it helped her joints or not. FH: Father and grandmother - RA Sister - RA Mom - OA SH: Quit in 2006 No alcohol Uses CBD for pain Labs: RF < 14 CBC from 09/09 -- unremarkable BMP from 09/[address] chest: 08/2024 Increasing dependent and basilar opacities with development of opacification of the underlying bronchi, possibly secondary to aspiration with early aspiration pneumonitis. Short-term follow-up is recommended. CT chest 06/2024 IMPRESSION: No CT evidence of acute abnormality. MR brain: No acute intracranial process. No enhancing mass or pathologic enhancement. A few tiny foci of white matter signal abnormality is nonspecific but most likely sequela of headaches or due to chronic small vessel ischemic changes in a patient of this age. Pain Evaluation 09/08/2024 09/08/2024 09/08/2024 09/09/2024 10/27/2024 Pain Evaluation Pain Score 8 -- 5 0 3 Location Leg-Left Leg-Left Leg-Left Location Comment ribs and legs Description Burning;Crushing Burning Aching;Sharp Aching;Sharp;Burning;Numbness;Tenderness;Stiffness;Stabbing;Tingling Frequency Continuous Intervention Medication;Heat Relaxation;Distractions;Emotional Support/Reassurance;Education Reposition;Medication Patient-Entered Data PROMIS Assessments 05/05/2022 10/19/2024 10/26/2024 PROMIS Global Health - (T-Scores - the mean of general population = 50. Five points is a clinicallymeaningful difference.) Physical T-Score 29.6 32.4 32.4 32.4 32.4 Mental T-Score 36.3 36.3 36.3 36.3 36.3 Multiple values from one day are sorted in reverse-chronological order 05/05/2022 10/19/2024 10/26/2024 PROMIS CAT Pain Interference PROMIS Adult Short Form-Global Health Score (Mental) 36.3 (Fair) 36.3 (Fair) 36.3 (Fair) No data to display No data to display RAPID 3 [place] Activities of Daily Living No Data Dress self? - Get in and out of bed? - Walk outdoors? - Wash and dry body? - Get in and out of car? - RAPID 3 Disease Activity Weighed Score Levels: 0 - 1: Near Remission 1.3 - 2.0: Low Severity 2.3 - 4.0: Moderate Severity 4.3 - 10.0: High Severity No data to display Review of Systems Review of Systems CONSTITUTION: Positive for: Fever (99-100) and Recent weight change (lost 70 and gained 50 back) HEENT: Positive for: Trouble swallowing (oral thrush) and Dry mouth Negative for: Nosebleeds and Mouth sores RESPIRATORY: Positive for: Cough, Shortness of breath and Pain with breathing Negative for: Coughing up blood GASTROINTESTINAL: Positive for: Diarrhea (IBS-D and C), Heartburn and Abdominal pain Negative for: Melena MUSCULOSKELETAL: Positive for: Arthralgias, Myalgias, Muscle weakness, Joint swelling and Morning Joint Stiffness NEUROLOGICAL: Positive for: Numbness and Memory loss SKIN: Positive for: Rash (acne), Skin changes, Hair loss and Nail changes EYES: Positive for: Eye dryness and Visual disturbance Negative for: Eye pain and Eye redness Cataracts and glaucoma CARDIOVASCULAR: Positive for: Leg swelling Negative for: Chest pain GENITOURINARY: Negative for: Dysuria, Hematuria, Ulceration HEMATOLOGIC/LYMPHATIC: All other reviewed and negative other than HPI. Past Medical History PAST MEDICAL HISTORY Diagnosis Date Acute on chronic respiratory failure with hypoxia and hypercapnia ([facility] 09/01/2024 DAWOOD positive 03/31/2024 Anxiety, generalized 09/08/2024 Bipolar 1 disorder ([facility]) 09/08/2024 Cervical spondylosis without myelopathy Chronic respiratory failure with hypoxia ([facility]) 09/08/2024 Delirium 09/06/2024 Drug allergy, multiple 09/01/2024 Elevated total protein 06/30/2024 Esophageal reflux Fatty liver 09/01/2024 Glaucoma 09/08/2024 Stints placed in both eyes on 2019 Gout 09/08/2024 For at least 8 years Hidradenitis suppurativa 09/08/2024 Hypercalcemia 06/30/2024 Hypertriglyceridemia 09/08/2024 Irritable bowel syndrome Malnutrition of moderate degree ([facility]) 09/02/2024 Migraine without aura Mild mitral regurgitation 03/31/2024 Moderate protein-calorie malnutrition ([facility]) 07/24/2024 Obesity, Class II, BMI 35-39.9 09/09/2024 NICOLE on CPAP 09/01/2024 Primary hypertension 09/01/2024 Prolonged QT interval 09/02/2024 Pulmonary hypertension ([facility]) 09/10/2022 Rheumatoid arthritis involving both hands ([facility]) 09/08/2024 Severe persistent asthma with status asthmaticus 07/01/2024 Unspecified asthma(493.90) Past Surgical History PAST SURGICAL HISTORY Procedure Laterality Date LAPAROSCOPY SURG CHOLECYSTECTOMY Cholecystectomy, lap LIG/TRNSXJ FLP TUBE ABDL/VAG APPR UNI/BI Tubal ligation PAST SURGICAL HISTORY OF benign tumors on flank PAST SURGICAL HISTORY OF cervical fusion TONSILLECTOMY PRIMARY/SECONDARY <AGE 12 Tonsillectomy Family History FAMILY HISTORY Problem Relation Age of Onset Hypertension Father Diabetes Maternal Aunt Diabetes Maternal Uncle Cancer Mother cervical Cancer Sister cervical Social History Social History Tobacco Use Smoking status: Former Current packs/day: 0.00 Types: Cigarettes Quit date: 04/01/2007 Years since quittin.5 Passive exposure: Past Smokeless tobacco: Current Vaping Use Vaping status: Never Used Substance Use Topics Alcohol use: No Drug use: No Current Medications Current Outpatient Medications Medication Sig ALPRAZolam (XANAX) 1 mg tablet Take 1 mg by mouth at bedtime as needed. famotidine (PEPCID) 40 mg tablet Take 1 tablet by mouth once daily. nystatin (MYCOSTATIN) 100,000 unit/mL suspension Take 5 mL by mouth four times daily for 14 days. Swish and swallow. ipratropium-albuterol (DUONEB) 0.5 mg-3 mg(2.5 mg base)/3 mL nebu Inhale 3 mL as instructed every 6hours as needed for wheezing/shortness of breath. tiotropium-olodaterol (STIOLTO RESPIMAT) 2.5-2.5 mcg/actuation inhaler Inhale 2 Puffs as instructedonce daily. gabapentin (NEURONTIN) 400 mg capsule Take 400 mg by mouth at 9 am and 400 mg at 2 pm gabapentin (NEURONTIN) 300 mg capsule Take 3 capsules by mouth daily at bedtime for 30 days. theophylline ER 100 mg 12 hr tablet Take 1 tablet by mouth two times a day. rhubarb root extract (ESTROVEN CMPLT MENOPAUSE RLF) 4 mg tab Take by mouth. cholecalciferol (VITAMIN D-3) 5,000 unit tab Take 5,000 Units by mouth once daily. levothyroxine (SYNTHROID) 50 mcg tablet Take 50 mcg by mouth daily before breakfast. febuxostat (ULORIC) 40 mg tab Take by mouth once daily. metoprolol succinate ER (TOPROL XL) 25 mg 24 hr tablet Take 50 mg by mouth once daily. amLODIPine (NORVASC) 2.5 mg tablet Take by mouth once daily. montelukast sodium(SINGULAIR 10 MG TAB) Take one(1) tablet daily at bedtime. cetirizine hcl(ZYRTEC 10 MG TAB) Take 10 mg by mouth two times a day. ALBUTEROL 90 MCG/ACTUATION AEROSOL INHALER Inhale one(1) - two(2) puffs four(4) times a day as needed for wheezing and shortness of breath. pantoprazole sodium(PROTONIX 40 MG TAB) Take 40 mg by mouth two times a day. promethazine hcl(PHENERGAN 25 MG TAB) as necessary Labs Latest Ref Rng & Units 09/06/2024 09/06/2024 09/08/2024 09/09/2024 CBC WBC 3.70 - 11.00 k/uL 13.96 7.92 11.18 11.50 Hemoglobin 11.5 - 15.5 g/dL 12.5 13.3 13.0 12.9 Hemoglobin Total, Whole Blood 11.5 - 15.5 g/dL 13.1 Hematocrit 36.0 - 46.0 % 37.4 39.0 39.4 39.7 Platelet Count 150 - 400 k/uL 258 254 318 320 Latest Ref Rng & Units 09/06/2024 09/06/2024 09/08/2024 09/09/2024 CMP Sodium 136 - 144 mmol/L 135 137 135 137 Potassium 3.7 - 5.1 mmol/L 3.4 3.6 3.4 3.8 Chloride 98 - 107 mmol/L 95 96 97 98 CO2 22 - 30 mmol/L 26 27 22 24 Glucose 74 - 99 mg/dL 86 164 99 55 BUN 7 - 21 mg/dL 18 18 26 21 Creatinine 0.58 - 0.96 mg/dL 0.60 0.65 0.89 0.81 Calcium 8.5 - 10.2 mg/dL 9.8 9.5 9.7 9.8 Latest Ref Rng & Units 11/09/2007 11/10/2007 07/23/2024 09/01/2024 Antibodies PT Sec 9.7 - 13.0 sec 11.8 11.6 12.0 11.4 PT INR 0.9 - 1.3 1.1 1.1 1.1 1.1 APTT 24.6 - 32.8 sec 26.7 29.8 Latest Ref Rng & Units 09/02/2024 Urinalysis Protein, Urine Negative Trace RBC, Urine 0-2 /HPF 11-20 /HPF Imaging Last XR Chest - Impression Only XR CHEST 1V FRONTAL PORT Exam End: 09/03/2024 1:05 PM (Final result) Impression: IMPRESSION: See result ... Health Maintenance Current Immunizations Reviewed on 10/27/2024 Name Date influenza (IIV3) vaccine 08/15/2024, 04/08/2016 influenza (IIV4) vaccine 06/03/2023, 05/19/2020, 05/13/2018, 03/15/2017 influenza vaccine 05/11/2019, 05/10/2017, 05/10/2017 pneumococcal (PCV13) vaccine 03/15/2017 pneumococcal (PCV20) vaccine 09/09/2024 respiratory syncytial virus (RSV) vaccine, bivalent Deferred (Patient Refused) tetanus diphtheria pertussis (Tdap) vaccine 12/03/2012 Physical Exam GENERAL APPEARANCE: Well groomed. Alert and oriented x 3. In no distress. VITAL SIGNS: BP 128/73 Pulse 73 Temp (Src) 98.8 (Temporal) Ht 5' .157 (1.53m) Wt 202 lb 13.2 oz (92.0kg) LMP 01/31/2011 BMI 39.40 kg/(m^2). Physical Exam SKIN: No rash, thickening, nodules, discoloration. EYES: PERRL, EOMI HENT: Normal external examination of the ears and nose, lips, oropharynx and tongue. NECK: No mass or asymmetry. RESPIRATORY: Normal respiratory effort. Clear to auscultation and percussion. CARDIOVASCULAR: Heart RRR without gallop, murmur, or rub NEUROLOGIC: Sensory exam normal. MUSCULOSKELETAL EXAMINATION: Multiple tender PIPs and MCPs edmund right middle PIP and bilateral thumb 1st CMC tenderness, +ve squeeze Multiple muscle tender points There is currently no information documented on the homunculus. Go to the Rheumatology activity andcomplete the homunculus joint exam. Joint Exam 10/27/2024 No joint exam has been documented for this visit Joint Exam Data (across time) Impression Diagnoses: (M25.50) Polyarthralgia (primary encounter diagnosis) (J45.50) Severe persistent asthma, unspecified whether complicated (R21) Rash and nonspecific skin eruption This is a 53 year old female with a PMH of Fibromylagia, OA, Midgraine, depression, hypertension, low back pain, DDD and spinal stenosis, fatty liver, GERD, approximately 30 pack year former smoker and severe persistent Asthma who presents for RA evaluation. Patient reports previous history of ?RA, never managed. Previous plans to start abatacept but neverstarted, unclear why this was chosen. RF was negative at that time, no imaging available. The pain is mostly in the hands/feet/ankles/knees/hips and low back with no prolonged AM stiffness but some features of inflammatory arthritis in the terms of this is mostly in the morning and get a little better with minimal activity but gets worse with exertional activity, also she did have multiple tender PIPs, MCPs in both hand. She also has family history of RA in dad and sister and psoriasis in her mom. She also reported wide range of symptoms, including on/off rashes mostly on extremities, hair loss, sicca symptoms which could point toward DAWOOD spectrum disease with inflammatory arthritis but not so specific so far to fit in one picture. She also reports myalgia, and brain fog with diffuse tender points which is probably indicative of fibromyalgia. Since she has some inflammatory features, strong family history, tenderness on multiple PIP/MCP joints, and other wide spread array of symptoms would be worth to obtain some serologies as follows: 1- CBC, CMP, ESR, CRP 2- RF, CCP 3- DAWOOD by IFA with reflex, CATALINA 4- Hepatitis remote panel, blood TB 5- XR bilateral hands/wrists/hips/knees/feet/ankle and lower back Would also consider US synovial screen bilateral wrists/hands depending on results of the above Plan Orders this visit: Office Visit on 10/27/24 XR HAND/WRIST SURVEY ARTHRITIS 1V PA BILATERAL XR FOOT SURVEY ARTHRITIS 1V AP BILATERAL XR ANKLE GENERAL 3V AP/LAT/OBL BILATERAL XR KNEE GENERAL 4V AP BOTH/PA BOTH/LAT/MERC BILATERAL XR LUMBAR GENERAL 3V AP/LAT/L5-S1 XR HIP BILATERAL 5V PEL/AP/LAT EACH HIP COMPLETE BLOOD COUNT AND DIFFERENTIAL COMPREHENSIVE METABOLIC PANEL SEDIMENTATION RATE, WESTERGREN C-REACTIVE PROTEIN RHEUMATOID FACTOR CCP ANTIBODY IGG DAWOOD BY IFA WITH REFLEX ANTI CATALINA ID HEP REMOTE PANEL BL BLOOD TB SCREEN CONSULT TO RHEUM/IMMUN DISEASE No follow-ups on file. I spent a total of 80 minutes on the date of the service which included preparing to see the patient, [id number] patient care, completing clinical documentation, obtaining and/or reviewing separately obtained history, performing a medically appropriate examination, counseling and educating the pat ient/family/caregiver, and ordering medications, tests, or procedures. Eugene Del Castillo MD Rheumatology Fellow PGY-4 Date: October 27, 2024 Time: 7:55 AM Fellow's history reviewed. Patient interviewed and examined. Symptoms are mixed but exam may suggest inflammatory arthritis - mother with severe psoriasis but no personal history in her case Can't remember how she did with steroid She has childhood onset asthma Will start by doing xray and if needed may consider US Assessment and plan reviewed with fellow. I have personally examined the patient and repeated the lentz components of the exam/history. The assessment and plan were formulated and discussed with the fellow. See fellow's note for further details. Maynor Hernandez MD Rheumatology staff October 27, 2024 [facility] NoteBar[facility] Instructions* Patient Instructions* Gabi Marroquin APRN.[employer]SEMBLY SUPERVISOR - 10/26/2024 3:56 PM EDT We discussed your asthma and COPD: - Your lung function testing today showed mild obstruction before using albuterol, which improved to normal after using albuterol. This indicates reversible airway disease, consistent with asthma. - Continue using Stiolto daily as prescribed; it has been effective in improving your lung functionand symptoms. - Use albuterol as needed for shortness of breath or wheezing. If you anticipate exertion that may cause symptoms, use albuterol beforehand. - You are currently stable and have not required oxygen at home since August. Continue monitoring your symptoms and let us know if they worsen. - We discussed the possibility of adding an inhaled corticosteroid (ICS) for asthma management. I will review your chart and consult with Dr. Gordillo to determine if this is appropriate, given your history of steroid intolerance. - Biologic therapy for asthma and COPD (e.g., Dupixent) may be an option. I will discuss this further with Dr. Gordillo and update you. We discussed your rheumatoid arthritis (RA) and connective tissue disease: - You need to establish care with a new family engagement specialist. A referral to rheumatology has been placed to help manage your RA and connective tissue disease. - You mentioned challenges with previous RA treatments due to cost and side effects. We will work to find a provider who can collaborate with you on a treatment plan that fits your needs. We discussed your theophylline use: - A blood test to check your theophylline levels will be done today to ensure you are on the correct maintenance dose. This is important given your history of liver issues and prior high doses of theophylline. We discussed your sleep apnea: - You are not currently using your CPAP machine due to issues with the settings. A new sleep study may be needed to reassess your current needs, as your breathing has improved since your last hospitalization. I will request your previous sleep study results from [facility] [address]. If we cannot obtain them, we will schedule a repeat study. - Continue monitoring your symptoms, including waking up at night due to breathing issues. Let us know if these worsen. We discussed your sinus and allergy symptoms: - Continue using Mucinex and saline mist as needed to manage postnasal drip and sinus congestion. - You are scheduled for allergy testing on November 09. Please keep this appointment to further evaluate and manage your symptoms. We discussed additional testing and follow-up: - Blood tests for alpha-1 antitrypsin deficiency and a respiratory allergen panel will be done today. - I will review your recent hospital records, including your exhaled nitric oxide levels and any relevant imaging, to better understand your lung health. - You are scheduled for a swallow study on October 29 to evaluate swallowing issues that may contribute to your symptoms. Please keep this appointment. - You are also scheduled to see your GI doctor, Dr. Reyes, in February. Continue following up with him for any gastrointestinal concerns. Medications: - A refill for DuoNeb (ipratropium bromide and albuterol) has been sent to your pharmacy. - Continue taking Singulair, cetirizine, Stiolto and Mucinex as prescribed. Follow-Up: - I would like to see you again in one month to review your test results, discuss any updates from Dr. Gordillo, and assess your progress. - If you do not hear from me by early next week regarding the ICS or biologic therapy, please reachout to our office. Please let us know if you experience any worsening symptoms, such as increased shortness of breath,wheezing, or difficulty breathing. documented in this encounterM[facility]03-18-2025 NoteBarney [facility]03-[facility]-2025 History of Present illness Narrative* Gabi Marroquin APRN.[employer] FIN[employer]SEMBLY SUPERVISOR - 10/26/2024 2:47 PM EDT Images from the original note were not included. Res[facility] [place] [facility] Follow Up Patient Visit The patient consented to the use of [employer] software for draft documentation of the visit consistent with [facility] Notice of Privacy Practices. IMPRESSION AND PLAN 1. Severe persistent asthma, unspecified whether complicated (J45.50) Recent pulmonary function tests show mild obstruction with significant bronchodilator response, indicating reversible airway disease. Patient has a history of multiple hospitalizations and intubationin August. Currently managed with Stiolto, Singulair, and albuterol as needed. Patient has a history of adverse reactions to inhaled corticosteroids and systemic steroids. - Discuss potential initiation of inhaled corticosteroid therapy with Dr. Gordillo after reviewing patient's tolerance to budesonide during recent hospitalization. - Consideration of biologic therapy such as Dupixent, Fasenra, or Nucala to reduce eosinophilic inflammation; will discuss with Dr. Gordillo. - Ordered Alpha-1 antitrypsin deficiency testing. - Continue current medications: Stiolto, Singulair, and albuterol as needed. - Follow-up in 1 month to reassess lung function and treatment efficacy. 2. Rheumatoid arthritis involving both hands, unspecified whether rheumatoid factor present (HCC) (M06.9) Patient reports significant pain and burning sensation in hands. Previous treatment with Orencia was discontinued due to cost and administration issues. Patient expresses dissatisfaction with currentrheumatologist and requests a new referral. - Referral to rheumatology for re-evaluation and management. - Continue current supportive measures. 3. NICOLE on CPAP (G47.33) Patient reports difficulty using CPAP due to low settings and previous severe lung obstruction. Last sleep study over a year ago showed mild NICOLE with minimal REM sleep. - Request sleep study results from [facility] [address]. - Consider repeat sleep study to reassess current NICOLE severity and CPAP settings. 4. Encounter for therapeutic drug level monitoring (Z51.81) Patient on theophylline with previous high doses; current dose reduced due to potential liver issues. - Ordered theophylline level to assess current therapeutic range. I spent a total of 65 minutes on the date of the service which included preparing to see the patient, [id number] patient care, completing clinical documentation, obtaining and/or reviewing separately obtained history, performing a medically appropriate examination, counseling and educating the pat ient/family/caregiver, and ordering medications, tests, or procedures. Discussed with the patient who agrees to the plan. Return in about 4 weeks (around 11/23/2024). Gabi Marroquin APRN.[facility] Pulmonary Medicine [facility] HISTORY OF PRESENT ILLNESS Meredith Chaidez is a 54 year old female with a PMH of gerd, ra asthma who presents for follow up. Last visit with Dr. Gordillo on 06/30/2024: IMPRESSIONS AND RECOMMENDATIONS Meredith Chaidez is evaluated today for: (J45.52) Severe persistent asthma with status asthmaticus (primary encounter diagnosis) Comment: Plan: Persistent wheezing, coughing, only speaking in short sentences; multiple allergies including severe allergies to ICS and systemic steroids - so limited options for outpatient therapy. She has been on theophyline without recent therapeutic level monitoring, and she reports issues with liver/possible cirrhosis diagnosis. Additional concerns include - borderline hypoxia of unclear etiology and PE not ruled out, however elevated Cr as of 1 week ago without clear baseline. Discussed with patient and , recommend proceed to ER and inpatient management including allergy test and optimize medical regimen. They are in agreement. I have given signout to ER attending Dr Vidal and Primary pulm attending Dr Ybarra. Austni Gordillo MD Pulmonary and Critical Care Medicine [facility] Hospitalized in August: REASON FOR HOSPITALIZATION/PRINCIPAL DIAGNOSES: Severe asthma exacerbation HOSPITAL PROBLEMS: Principal Problem (Resolved): Acute on chronic respiratory failure with hypoxia and hypercapnia (HCC) (POA: Yes) Active Problems: Esophageal reflux (POA: Yes) Irritable bowel syndrome (POA: Yes) Severe persistent asthma with (acute) exacerbation (POA: Yes) Moderate protein-calorie malnutrition (HCC) (POA: Yes) Fibromyalgia (POA: Yes) NICOLE on CPAP (POA: Yes) Primary hypertension (POA: Yes) Fatty liver (POA: Yes) Other specified hypothyroidism (POA: Yes) Drug allergy, multiple (POA: Yes) Prolonged QT interval (POA: No) Malnutrition of moderate degree (HCC) (POA: Yes) Delirium (POA: No) Glaucoma (POA: Yes) Gout (POA: Yes) Bipolar 1 disorder (HCC) (POA: Yes) Anxiety, generalized (POA: Yes) DAWOOD positive (POA: Yes) Chronic respiratory failure with hypoxia (HCC) (POA: Yes) Hidradenitis suppurativa (POA: Yes) Mild mitral regurgitation (POA: Yes) Pulmonary hypertension (HCC) (POA: Yes) Hypertriglyceridemia (POA: Yes) Rheumatoid arthritis involving both hands (HCC) (POA: Yes) Obesity, Class II, BMI 35-39.9 (POA: Yes) HOSPITAL COURSE: This is a 54 year old female with a PMHx of Fibromyalgia, RA, Depression, Glaucoma, Severe Asthma/COPD, NICOLE on CPAP, 30 pack year former Smoker, HTN, Fatty Liver, GERD, Hypothyroidism and Spinal Stenosis with Lower Back Pain who presented to OSH ED on 09/01 with shortness of breath. At baseline sheuses 1 L NC, she had to increase it to 4L due to symptoms. EMS was called. When EMS arrived SpO2 85% on NC 4 liters, was given breathing treatments en route. While at the OSH patient with labored breathing. Patient was treated with albuterol treatments and theophylline and placed on BiPAP, COVID-19negative. Hospital course was complicated by MICU stay for AHRF and worsening hypercapnia, requiring intubation 09/01 and extubated 09/05, and anxiety (requiring PRN atarax and ativan). Patient with hx of multiple allergies which has made treatment for asthma difficult. She was adamant that she had an allergy to dexamethasone but has prev tolerated. Allergy consulted during MICU stay and this was confirmed. P atient agreeable to try and tolerated. She was continued on IV dexamethasone and is discharge on taper for 6 additional days of PO. Pulmonary was consulted for optimization of her asthma. Her PFT's show improvement with a bronchodilator and she would benefit from a long-acting one. She reported that in the past she did not tolerate Duonebs or ipratroproim (felt throat closing) but is open to trying again. She was scheduled on duonebs QID and tolerated them greatly with significant improvement in symptoms. Due to this, pulmonary recommended the patient discharge on stiolto and prn duonebs which was prescribed. Pulmonary willarrange outpatient follow up. She will continue theophyline at 100 mg dose BID. ENT follow up requested and to be scheduled for evaluation of possible ILO. Patient is going to reach out to sleep medicine to adjust CPAP settings and she was having difficulty using her machine at home. Psychiatry followed during hospitalization for anxiety and other psychiatric history. Psychiatry recommended to stop prior to admission nortriptyline and to continue to hold on discharge. Recommendedto discharge on prn atarax which has been prescribed. Also recommended to change gabapentin dosing to 400 mg in AM, 400 mg in afternoon and 900 mg at bedtime to help with insomnia. Patient received pneumonia vax prior to discharge. RSV vaccine ordered but patient was not willing to wait for this to be administered. Patient is discharging home in stable condition. PCP follow up requested and to be scheduled, pulm to schedule close follow up. OPERATIONS/PROCEDURE DURING THIS HOSPITALIZATION: * No surgery found * CONSULTS DURING HOSPITALIZATION: Treatment Team: Attending Provider: Morgan Yanez MD Primary Service: GI 4 Nurse Practitioner: Arabella Luciano APRN.[employer]SEMBL[employer] SUPERVISOR PATIENT CONDITION AT DISCHARGE: Good DISCHARGE DISPOSITION: Home with Self Care Today, Tasha has a complex medical history, including multiple hospitalizations in June, July, and August, with the most recent hospitalization in August requiring intubation for 5 days. She reports significant improvement in lung function since her last hospitalization, noting that she has not required home oxygen since August and has only needed approximately 5 breathing treatments since starting Stiolto, which she reports has made a significant difference in her respiratory status. She is also taking Singulair, cetirizine BID, Mucinex, and theophylline. She expresses concern about the potential liver effects of theophylline, noting a previous dosage of 600 mg, which was reduced to 100 mg BID due to liver issues. She inquires about the need for monitoring her theophylline levels. Tasha reports no current wheezing, chest tightness, or dyspnea at rest, but does experience dyspneaon exertion. She is able to use albuterol as needed. She has a history of adverse reactions to inhaled steroids, including budesonide, and reports a severe reaction to Advair in the past. She also has a history of anaphylaxis with multiple medications and is currently using an EpiPen. Tasha has a history of RA and connective tissue disease, for which she was previously treated with Orencia. She reports difficulty obtaining consistent treatment due to insurance and provider issues and is seeking a new family engagement specialist. She experiences significant pain and weakness in her arms and re ports that even light touch can be painful. Tasha has a history of sleep apnea and was prescribed a CPAP machine 8 months ago, but has been unable to use it due to difficulty tolerating the settings. She reports waking up at night due to apneaepisodes and believes she may need a new sleep study. Her last sleep study was over a year ago and was considered mild, but she only achieved 45 seconds of REM sleep during the study. Tasha has a history of smoking for 20 years, quitting in 2006 after a severe asthma attack. She hasa family history of lung cancer and heart and lung problems. She is unsure if she has been tested for Alpha-1 antitrypsin deficiency. Tasha reports significant post-nasal drip and sinus congestion, for which she is taking Mucinex. She has a history of glaucoma and is taking vitamin D3 5000 IU daily. She reports swelling in her legsand hands, which she attributes to water retention and joint swelling from RA. She also reports weight gain of 18 lbs since her last hospitalization, which she attributes to dietary changes. Current Medication Regimen: Albuterol Duoneb Stiolto singulair Comorbidities: ASA allergy: per chart aspirin allergy Obesity: Rheumatology - reported history of positive DAWOOD, diagnosed with RA Exposures Smoking: former: quit 2006 ACT: PAST MEDICAL AND SOCIAL HISTORY PAST MEDICAL HISTORY Diagnosis Date Acute on chronic respiratory failure with hypoxia and hypercapnia (HCC) 09/01/2024 DAWOOD positive 03/31/2024 Anxiety, generalized 09/08/2024 Bipolar 1 disorder (HCC) 09/08/2024 Cervical spondylosis without myelopathy Chronic respiratory failure with hypoxia ([facility]) 09/08/2024 Delirium 09/06/2024 Drug allergy, multiple 09/01/2024 Elevated total protein 06/30/2024 Esophageal reflux Fatty liver 09/01/2024 Glaucoma 09/08/2024 Stints placed in both eyes on 2019 Gout 09/08/2024 For at least 8 years Hidradenitis suppurativa 09/08/2024 Hypercalcemia 06/30/2024 Hypertriglyceridemia 09/08/2024 Irritable bowel syndrome Malnutrition of moderate degree ([facility]) 09/02/2024 Migraine without aura Mild mitral regurgitation 03/31/2024 Moderate protein-calorie malnutrition ([facility]) 07/24/2024 Obesity, Class II, BMI 35-39.9 09/09/2024 NICOLE on CPAP 09/01/2024 Primary hypertension 09/01/2024 Prolonged QT interval 09/02/2024 Pulmonary hypertension ([facility]) 09/10/2022 Rheumatoid arthritis involving both hands ([facility]) 09/08/2024 Severe persistent asthma with status asthmaticus 07/01/2024 Unspecified asthma(493.90) Social History Tobacco Use Smoking status: Former Current packs/day: 0.00 Types: Cigarettes Quit date: 04/01/2007 Years since quittin.5 Passive exposure: Past Smokeless tobacco: Current Vaping Use Vaping status: Never Used Substance Use Topics Alcohol use: No Drug use: No CURRENT MEDICATIONS AND ALLERGIES Current Outpatient Medications Medication Sig Dispense Refill ALPRAZolam (XANAX) 1 mg tablet Take 1 mg by mouth at bedtime as needed. famotidine (PEPCID) 40 mg tablet Take 1 tablet by mouth once daily. 90 tablet 2 nystatin (MYCOSTATIN) 100,000 unit/mL suspension Take 5 mL by mouth four times daily for 14 days. Swish and swallow. 280 mL 0 tiotropium-olodaterol (STIOLTO RESPIMAT) 2.5-2.5 mcg/actuation inhaler Inhale 2 Puffs as instructedonce daily. 4 g 2 gabapentin (NEURONTIN) 400 mg capsule Take 400 mg by mouth at 9 am and 400 mg at 2 pm 60 capsule 0 gabapentin (NEURONTIN) 300 mg capsule Take 3 capsules by mouth daily at bedtime for 30 days. 90 capsule 0 theophylline ER 100 mg 12 hr tablet Take 1 tablet by mouth two times a day. 60 tablet 2 rhubarb root extract (ESTROVEN CMPLT MENOPAUSE RLF) 4 mg tab Take by mouth. cholecalciferol (VITAMIN D-3) 5,000 unit tab Take 5,000 Units by mouth once daily. levothyroxine (SYNTHROID) 50 mcg tablet Take 50 mcg by mouth daily before breakfast. febuxostat (ULORIC) 40 mg tab Take by mouth once daily. metoprolol succinate ER (TOPROL XL) 25 mg 24 hr tablet Take 50 mg by mouth once daily. amLODIPine (NORVASC) 2.5 mg tablet Take by mouth once daily. montelukast sodium(SINGULAIR 10 MG TAB) Take one(1) tablet daily at bedtime. 0 0 cetirizine hcl(ZYRTEC 10 MG TAB) Take 10 mg by mouth two times a day. 0 0 ALBUTEROL 90 MCG/ACTUATION AEROSOL INHALER Inhale one(1) - two(2) puffs four(4) times a day as needed for wheezing and shortness of breath. 0 0 pantoprazole sodium(PROTONIX 40 MG TAB) Take 40 mg by mouth two times a day. 0 0 promethazine hcl(PHENERGAN 25 MG TAB) as necessary 0 0 ipratropium-albuterol (DUONEB) 0.5 mg-3 mg(2.5 mg base)/3 mL nebu Inhale 3 mL as instructed every 6hours as needed for wheezing/shortness of breath. 360 mL 4 No current facility-administered medications for this visit. ALLERGIES Allergen Reactions Adhesive Tape-Silic* Hives Advair Diskus [Flut* Anaphylaxis Arthrotec 50 [Diclo* Aspartame Itching Aspirin Codeine Depo-Provera [Medro* Elavil [Amitriptyli* Eryc [Erythromycin] Flonase Headache-Al* Swelling sneezing Ibu-200 [Ibuprofen] Imitrex [Sumatripta* Latex Medrol [Methylpredn* Nsaids (Non-Steroid* Hives Nubain [Nalbuphine * Prednisone Unknown Tolerated dexamethasone during hospitalization 08/2024 Relafen [Nabumetone] Steroids [Betametha* Other: See Comments Difficulty breathing hives Tolerated inhaled budesonide during hospitalization 09/05 Stevia [Stevioside * Intolerance Toradol [Ketorolac * Trazodone [id number]-5-[id number] Anti* Other: See Comments Shooting pain from chest down arm Vicodin [Hydrocodon* Vioxx [Rofecoxib] Zanaflex [Tizanidin* REVIEW OF SYSTEMS Review of Systems Constitutional: Negative for chills and fever. HENT: Positive for congestion and postnasal drip. Respiratory: Negative for cough, chest tightness, shortness of breath and wheezing. Cardiovascular: Negative for chest pain and leg swelling. Musculoskeletal: Positive for arthralgias and joint swelling. PHYSICAL EXAM BP 125/71 Pulse 75 Temp (Src) 98.4 (Temporal) Resp 16 Wt 198 lb 13.7 oz (90.2kg) SpO2 96% LMP 01/31/2011 General: Alert, oriented, no acute distress Respiratory: Clear to posterior auscultation, bilaterally Cardiovascular: Regular rate and rhythm, normal S1 and S2, no murmurs or added sounds Abdomen: Soft, non-tender, normal bowel sounds Extremities: No clubbing, cyanosis, or edema DIAGNOSTIC REVIEW I personally reviewed and interpreted the labs, PFTs and radiographs. Radiology: 09/03/2024 RESULT: Lines, tubes, and devices: The NG/OG tube courses below the hemidiaphragm into the stomach, tip beyond the [id number]. Patient remains intubated. Lungs and pleura: There are mild scattered patchy opacities in both lungs. No substantial pleural effusions or definite pneumothorax is identified. Cardiomediastinal silhouette: The cardiomediastinal silhouette is stable since the prior exam. Other: Spirometry: 10/26/2024 FeNO: Test Date Oral Exhaled Nitric Oxide (ppb) 10/26/2024 34.0 06/30/2024 69.0 (A) Labs: Abs Eosin Date Value Ref Range Status 07/25/2024 0.52 (H) <0.46 k/uL Final 07/24/2024 0.69 (H) <0.46 k/uL Final 07/23/2024 0.10 <0.46 k/uL Final 06/30/2024 0.91 (H) <0.46 k/uL Final IgE Date Value Ref Range Status 07/24/2024 89.9 <114.0 kU/l Final Immunizations: Immunization History Administered Date(s) Administered influenza (IIV3) vaccine, trivalent, PF (AFLURIA, FLUARIX, FLULAVAL, FLUVIRIN, FLUZONE) 04/08/2016 08/15/2024 influenza (IIV4) vaccine, age 6 mo - 64 yr, quadrivalent, PF (AFLURIA, FLUARIX, FLULAVAL, FLUZONE) 03/15/2017 05/13/2018 05/19/2020 06/03/2023 influenza vaccine, southern hemisphere, unspecified formulation 05/10/2017 influenza vaccine, unspecified formulation 05/10/2017 05/11/2019 pneumococcal conjugate (PCV13) vaccine, 13 valent (PREVNAR 13) 03/15/2017 pneumococcal conjugate (PCV20) vaccine, 20 valent (PREVNAR 20) 09/09/2024 tetanus diphtheria pertussis (Tdap) vaccine, age 7+ yr (ADACEL, BOOSTRIX) 12/03/2012 Deferred Date(s) Deferred respiratory syncytial virus (RSV) vaccine, bivalent (ABRYSVO) 09/09/2024 [facility]25 NoteHNO ID: [id number] Author: MAGALI KING RRT Service: ? Author Type: Registered Resp Therapist Type: Progress Notes Filed: 10/26/2024 14:43 Note Text: PULM FUNCTION: Provider: Gabi Marroquin APRN.PACKING AND FINAL ASSEMBLY SUPERVISOR Spirometry w/BD: 1 Exhaled Nitric Oxide: [facility] Procedure note* Magali King RRT - 10/26/2024 2:42 PM EDTAssociated Order(s): NITRIC OXIDE, EXHALED Oral Exhaled Nitric Oxide measurement (Previous Encounters) Test Date Oral Exhaled Nitric Oxide (ppb) 10/26/2024 34.0 06/30/2024 69.0 (A) Normal: Adult 5-20 ppb, pediatric (<12 years) 5-15 ppb High Normal / Increased: Adult 20-35 ppb, pediatric (<12 years) 15-25 ppb Moderately raised exhaled Nitric Oxide may indicate underlying inflammation, but note that: Cold and influenza can raise exhaled Nitric Oxide and some patients have higher baseline exhaled Nitric Oxide levels than others. High: Adult >35 ppb, pediatric (<12 years) >25 ppb Indicative of ongoing eosinophilic inflammation. Symptomatic patient likely to respond to steroids. Possible causes (if already on steroids): Poor compliance, recent allergen exposure, steroid dose inadequate, and steroid resistance. Note that not all patients with high exhaled nitric oxide levels display symptoms. [facility]03-[facility] History of Present illness Narrative* Magali King RRT - 10/26/2024 2:42 PM EDT PULM FUNCTION: Provider: Gabi Marroquin APRN.PACKING AND FINAL ASSEMBLY SUPERVISOR Spirometry w/BD: 1 Exhaled Nitric Oxide: 1 documented in this encounterM[facility]03-[facility]25 Procedure note* Magali King RRT - 10/26/2024 2:42 PM EDTAssociated Order(s): NITRIC OXIDE, EXHALED Oral Exhaled Nitric Oxide measurement (Previous Encounters) Test Date Oral Exhaled Nitric Oxide (ppb) 10/26/2024 34.0 06/30/2024 69.0 (A) Normal: Adult 5-20 ppb, pediatric (<12 years) 5-15 ppb High Normal / Increased: Adult 20-35 ppb, pediatric (<12 years) 15-25 ppb Moderately raised exhaled Nitric Oxide may indicate underlying inflammation, but note that: Cold and influenza can raise exhaled Nitric Oxide and some patients have higher baseline exhaled Nitric Oxide levels than others. High: Adult >35 ppb, pediatric (<12 years) >25 ppb Indicative of ongoing eosinophilic inflammation. Symptomatic patient likely to respond to steroids. Possible causes (if already on steroids): Poor compliance, recent allergen exposure, steroid dose inadequate, and steroid resistance. Note that not all patients with high exhaled nitric oxide levels display symptoms. documented in this encounterM[facility]03-[facility]-2025 NoteBar[facility]03-[facility] History of Present illness Narrative* Josephine Rosas PA-C - 10/26/2024 1:12 PM EDT CC: Meredith Spencer Chaidez is 54 year old female who is seen at the request of Arabella Mustapha for evaluationof ILO. My findings and recommendations will be communicated to the referring provider via the shared electronic medical record. Assessment and Plan: (B37.89) Laryngeal candidiasis (primary encounter diagnosis) (R13.10) Dysphagia, unspecified type (J38.7) Inducible laryngeal obstruction (ILO) (J30.9) Allergic rhinitis, unspecified seasonality, unspecified trigger (K21.9) LPRD (laryngopharyngeal reflux disease) (J34.89) Refractory obstruction of nasal airway (J34.2) DNS (deviated nasal septum) (H61.21) Impacted cerumen of right ear ~flexible laryngoscopy reveals large BL lingual tonsils with retrolingual narrowing. Erythema/edemaof arytenoids and mucosa. Opaque white thick secretions in larynx. No coating on base of tongue. Ddx candidiasis, LPRD ~prescribed nystatin swish and swallow 4 times a day for 14 days ~prescribed famotidine 40 mg to supplement current protonix BID ~ordered modified barium swallow/esophagram (h/o abnormalities with both studies) ~consult to Allergy/Immunology for allergy testing and other concerns ~consult to Rhinology/ENT/Facial plastics for nasal obstruction ~removed impacted cerumen from right ear with right angle and suction ~routine ear clean with me in 6 months HPI: Meredith is a 54 year old who reports dysphagia. This has been present for 3- 4 years. Describes problems with swallowing both foods and liquids with mixed episodes of bolus' getting stuck in her throat, choking, or aspiration. She also notes episodes when food will be stuck in her throat and sheis unable to swallow it for over a minute. This has historically been investigated before with swallow studies finding abnormalities allegedly of both oropharynx and esophagus, but records are from outside [facility] and I am unable to see them. She has also seen Speech Therapy outside of [facility] without benefit. +subjective fever. Denies unexplained weight loss, sore throat, odynophagia. +hoarseness for the last 2-3 weeks. Known severe asthma and COPD on inhalers. She also has a series of GI issues. She alsostates she needs to find a new Production Expediter. +nasal congestion and reduced nasal airflow BL for years. +rhinorrhea and PND. Unable to tolerate flonase, nasacort, and azelastine. ALLERGIES Allergen Reactions Adhesive Tape-Silic* Hives Advair Diskus [Flut* Anaphylaxis Arthrotec 50 [Diclo* Aspartame Itching Aspirin Codeine Depo-Provera [Medro* Elavil [Amitriptyli* Eryc [Erythromycin] Flonase Headache-Al* Swelling sneezing Ibu-200 [Ibuprofen] Imitrex [Sumatripta* Latex Medrol [Methylpredn* Nsaids (Non-Steroid* Hives Nubain [Nalbuphine * Prednisone Unknown Tolerated dexamethasone during hospitalization 08/2024 Relafen [Nabumetone] Steroids [Betametha* Other: See Comments Difficulty breathing hives Tolerated inhaled budesonide during hospitalization 09/05 Stevia [Stevioside * Intolerance Toradol [Ketorolac * Trazodone Pshbhcxx-0-Uv5 Anti* Other: See Comments Shooting pain from chest down arm Vicodin [Hydrocodon* Vioxx [Rofecoxib] Zanaflex [Tizanidin* Current Outpatient Medications Medication Sig ALPRAZolam (XANAX) 1 mg tablet Take 1 mg by mouth at bedtime as needed. tiotropium-olodaterol (STIOLTO RESPIMAT) 2.5-2.5 mcg/actuation inhaler Inhale 2 Puffs as instructedonce daily. ipratropium-albuterol (DUONEB) 0.5 mg-3 mg(2.5 mg base)/3 mL nebu Inhale 3 mL as instructed every 6hours as needed for wheezing/shortness of breath. gabapentin (NEURONTIN) 400 mg capsule Take 400 mg by mouth at 9 am and 400 mg at 2 pm gabapentin (NEURONTIN) 300 mg capsule Take 3 capsules by mouth daily at bedtime for 30 days. theophylline ER 100 mg 12 hr tablet Take 1 tablet by mouth two times a day. rhubarb root extract (ESTROVEN CMPLT MENOPAUSE RLF) 4 mg tab Take by mouth. cholecalciferol (VITAMIN D-3) 5,000 unit tab Take 5,000 Units by mouth once daily. levothyroxine (SYNTHROID) 50 mcg tablet Take 50 mcg by mouth daily before breakfast. febuxostat (ULORIC) 40 mg tab Take by mouth once daily. metoprolol succinate ER (TOPROL XL) 25 mg 24 hr tablet Take 50 mg by mouth once daily. amLODIPine (NORVASC) 2.5 mg tablet Take by mouth once daily. montelukast sodium(SINGULAIR 10 MG TAB) Take one(1) tablet daily at bedtime. cetirizine hcl(ZYRTEC 10 MG TAB) Take 10 mg by mouth two times a day. ALBUTEROL 90 MCG/ACTUATION AEROSOL INHALER Inhale one(1) - two(2) puffs four(4) times a day as needed for wheezing and shortness of breath. pantoprazole sodium(PROTONIX 40 MG TAB) Take 40 mg by mouth two times a day. promethazine hcl(PHENERGAN 25 MG TAB) as necessary famotidine (PEPCID) 40 mg tablet Take 1 tablet by mouth once daily. nystatin (MYCOSTATIN) 100,000 unit/mL suspension Take 5 mL by mouth four times daily for 14 days. Swish and swallow. No current facility-administered medications for this visit. PAST MEDICAL HISTORY Diagnosis Date Acute on chronic respiratory failure with hypoxia and hypercapnia ([facility]) 09/01/2024 DAWOOD positive 03/31/2024 Anxiety, generalized 09/08/2024 Bipolar 1 disorder ([facility]) 09/08/2024 Cervical spondylosis without myelopathy Chronic respiratory failure with hypoxia ([facility]) 09/08/2024 Delirium 09/06/2024 Drug allergy, multiple 09/01/2024 Elevated total protein 06/30/2024 Esophageal reflux Fatty liver 09/01/2024 Glaucoma 09/08/2024 Stints placed in both eyes on 2019 Gout 09/08/2024 For at least 8 years Hidradenitis suppurativa 09/08/2024 Hypercalcemia 06/30/2024 Hypertriglyceridemia 09/08/2024 Irritable bowel syndrome Malnutrition of moderate degree ([facility]) 09/02/2024 Migraine without aura Mild mitral regurgitation 03/31/2024 Moderate protein-calorie malnutrition ([facility]) 07/24/2024 Obesity, Class II, BMI 35-39.9 09/09/2024 NICOLE on CPAP 09/01/2024 Primary hypertension 09/01/2024 Prolonged QT interval 09/02/2024 Pulmonary hypertension ([facility]) 09/10/2022 Rheumatoid arthritis involving both hands ([facility]) 09/08/2024 Severe persistent asthma with status asthmaticus 07/01/2024 Unspecified asthma(493.90) PAST SURGICAL HISTORY Procedure Laterality Date LAPAROSCOPY SURG CHOLECYSTECTOMY Cholecystectomy, lap LIG/TRNSXJ FLP TUBE ABDL/VAG APPR UNI/BI Tubal ligation PAST SURGICAL HISTORY OF benign tumors on flank PAST SURGICAL HISTORY OF cervical fusion TONSILLECTOMY PRIMARY/SECONDARY <AGE 12 Tonsillectomy Social History: Social History Tobacco Use Smoking status: Former Current packs/day: 0.00 Types: Cigarettes Quit date: 04/01/2007 Years since quittin.5 Passive exposure: Past Smokeless tobacco: Current Vaping Use Vaping status: Never Used Substance Use Topics Alcohol use: No Drug use: No FAMILY HISTORY Problem Relation Age of Onset Hypertension Father Diabetes Maternal Aunt Diabetes Maternal Uncle Cancer Mother cervical Cancer Sister cervical Review Of Systems GENERAL: No weight loss, malaise or fevers. HEENT: Negative for frequent or significant headaches, No changes in hearing or vision, No nasal bleeding, congestion or rhinorrhea, Nose Positive for congestion, nasal discharge, Mouth & Throat Positive for hoarseness, problem with swallowing NECK: Negative for lumps, goiter, pain and significant neck swelling I have confirmed and edited as necessary the ROS obtained by others. Josephine Rosas PA-C PHYSICAL EXAM: Temp 36.7 C (98 F) (Temporal Artery) LMP 01/31/2011 No weight on file for this encounter. General appearance: Well appearing, alert, in no acute distress, well-hydrated, well nourished. Cranial Nerves: III-XII: grossly intact Skin: Skin color, texture, turgor normal, no suspicious rashes or lesions Head: normocephalic, no masses, lesions, tenderness or abnormalities Ears: Bilateral external ear normal, Bilateral external auditory canal normal, Right tympanic membrane impacted with cerumen - removed with right angle and suction. Left TM normal after cleaning Nose/Sinuses: Nares normal. Septum deviated. Mucosa and the visible turbinates are hypertrophied onanterior rhinoscopy. No purulence or polyps Oral Cavity / Oropharynx: Lips, oral mucosa, hard and soft palates, tongue and posterior pharngeal wall are without lesions Neck: The neck appears symmetric without scars. On palpation, there are no masses or lymphadenopathy. The thyroid is not palpable and was free of masses. No salivary gland masses or hypertrophy is noted. Neuro: Gait normal. Mental status revealed patient to be alert and oriented. Mood is appropriate Procedure Flexible laryngoscopy was performed because of the following indication: dysphagia, hoarseness: After spraying the nose with 4% xylocaine and 0.5% oxymetazoline, the flexible scope was placed in a transnasal fashion. The nasopharynx, oropharynx, hypopharynx including the pyriform sinuses were normal. The base of tongue showed prominent lingual tonsils with retrolingual narrowing. The larynx itself showed erythema of the arytnoids and interarytnoid mucosa. The vocal cords moved well bilaterally. Josephine Rosas PA-C I spent 60 minutes in the visit, with more than 50% of the total [id number] time of the visit in counseling / coordination of care. documented in [facility]03-[facility]25 Instructions* Patient Instructions* Josephine Rosas PA-C - 10/26/2024 1:05 PM EDT You have some thrush in your throat Start the nystatin swish and swallow 4 times a day for 14 days (you can gargle this) Start the famotidine (pepcid) 40 mg once daily for trial of 90 days to supplement current pantoprazole twice daily Consult to Allergy/Immunology for allergy testing For nasal obstruction, consult to ENT surgeon for opinion Schedule modified barium swallow study and esophagram Consult to Speech Therapy for swallowing problem/ILO documented in this encounterM[facility]02-[facility]-2025 [facility]Bar[facility]02-[facility] History of Present illness Narrative* Yuliana Alcazar - 10/01/2024 10:56 AM EST Per [facility] Eligibility report patient meets [facility] criteria: MV >= 72 hours MICU stay, delirium and MICU stay >=72 hours (09/01- admission). Telephoned patient today and discussed her recovery and the [facility]; she's doing very well; said she has not had to be on O2 since she got home due to the great care she received in the MICU; not experiencing any PICS symptoms, has no need of the [facility]. [facility] Enrollment Status [facility] Call Attempt 1st Attempt Enrolled in [facility] Program? No - Declined [facility] Declined Reason Not Needed - Doing Well documented [facility]01[facility]25 [facility]01-30-2025 [facility]Bar[facility]01[facility]25 [facility]2025 [facility]01-[facility]-2025 Note [facility]25 [facility]01[facility]-2025 [facility]25 [facility] 09-05-2024 [facility]-2025 [facility]01[facility]-2025 [facility]-2025 [facility]-2025 [facility]01-22-2025 Note [facility]01[facility]-2025 [facility]01[facility]2025 [facility]25 [facility] 09-01-2024 History of Present illness Narrative* Sheeba Murray, CARLOS ALBERTO.PACKING AND FINAL ASSEMBLY SUPERVISOR - 09/01/2024 11:32 AM EST Images from the original note were not included. CRITICAL CARE TRANSPORT MEDICAL CONTROL CONSULT NOTE Patient Name: Meredith Chaidez Service Date: September 01, 2024 Referring Facility: [facility] Accepting Facility: [facility] Main [place] REASON FOR TRANSPORT: Higher level critical care services not available at the referring facility REASON FOR CONSULT: Patient not tolerating AIRVO, Wheezing CCT MEDICAL CONTROL CONSULT SUMMARY: History, physical exam findings, and available background patient information from [facility] Transport Nurse were reviewed at the time of consult. Pertinent additional information was reviewed as follows: [facility] transport request log In brief, Meredith Chaidez is a 54 year old female with a history, known at time of consult, significant for Asthma and COPD (2L home O2) who presented to [facility] for evaluation of respiratory distress. Per report, patient had been becoming increasingly SOB over the past several days. Upon arrival to the ED, patient was audibly wheezing and unable to speak. She was placed on BIPAP initially then switched to AIRVO 40L, 50% due to patient unable to tolerate BIPAP. Albuterol and Magnesium Sulfate were given. A VBG was drawn with pH 7.22, PCO2 70, PO2 30, HCO3 28. Patient is being transferred to [facility] for higher level critical care services not available at the referring facility. En route with [facility], patient was not able to tolerate AIRVO. She was placed on NRB 100% then 6L N/C. SpO2 remained 95-98%. Patient with no respiratory distress. Albuterol given for wheezing. PLAN: Multiple factors considered including: patient history/condition/trajectory/stability, referring and receiving destinations, duration of transport time, medications and therapies available during shabazz sport, patient safety, as well as crew capabilities. Orders given for: NRB 100%, 6L N/C, Albuterol Plan of care and orders confirmed and read back via telephone with [facility] Transport earth science faculty member, Ivone Baltazar RN and Maxine Pinto, Box Lidder SIGNATURE: Sheeba Murray APRN.ANDREA Acute Care Nurse Practitioner Critical Care Transport documented in this [facility] [place] [address] CT Scan Report Signed Patient: Meredith Chaidez MR#: [id number] : 1970 Acct:[id number] Age/Sex: 54 / F ADM Date: 5 Loc: Room: [address] [place] [address] Type: ADM IN Attending Dr: Ruddy Orellana MD Copies to: Ruddy Orellana MD~ Ordering Provider: Ruddy Orellana MD Date of Service: 09/01/24 CT/CT chest wo con: acute hypoxic respiratory failure CT Chest without contrast TECHNIQUE: Axial imaging with 2-D reconstruction. The CT exam was performed using one or more the following dose reduction techniques: Automated exposure control, adjustment of the MA and/or Kv according to patient size, or use of theiterative reconstruction technique. History: Shortness of breath. Hypoxia. COMPARISON: None THYROID: Unremarkable TRACHEA AND BRONCHI: Patent ESOPHAGUS: Unremarkable. HEART: Within normal limits PERICARDIAL EFFUSION: None CORONARY ARTERY CALCIFICATION: None MEDIASTINUM: No adenopathy. No pneumoperitoneum. No mediastinal hematoma. PULMONARY HILTON: No hilar mass or adenopathy is seen. THORACIC AORTA Unremarkable LUNG NODULE None LUNGS: Scattered groundglass opacities of the upper lobes likely inflammatory. Mild right middle lobe atelectasis. Emphysema. Left lower lung field bulla. PLEURAL EFFUSION: None PNEUMOTHORAX: No pneumothorax seen. CHEST WALL: No abnormality AXILLA:Unremarkable BONY STRUCTURES Intact UPPER ABDOMEN: Images of the upper abdomen are noncontributory. CT/CT chest wo con IMPRESSION: Scattered groundglass opacities of the upper lobes likely inflammatory/infectious. Impression dictated by: Dallas Galindo M.D.09/01/2024 8:01 AM Dictation Location: [place] [address] Transcribed By: [facility] 09/01/24 0801 Dictated By: Dallas Galindo DO 09/01/24 0758 Signed By: 09/01/24 0801 [facility]01-06-2025 [place] [address] Discharge Summary Signed Patient: Meredith Chaidez MR#: [id number] : 1970 Acct:[id number] Age/Sex: 54 / F Adm Date: 5 Loc: Room: 2I1273-[address]: Shyam Echevarria MD Copies to: Shyam Echevarria MD [facility]~ Providers Date of Discharge: 08/16/24 Discharging Provider: Shyam Echevarria Primary Care Provider: Services Family [facility] Discharge Diagnosis (1) Acute on chronic hypoxic respiratory failure: Final Diagnosis Final Discharge Diagnosis: Acute on chronic hypoxic respiratory failure in setting of asthma exacerbation Summary Hospital Course Hospital course: This patient is a 54-year-old female with significant past medical history of asthma, multiple allergies, autoimmune disease who presented emergency department this evening after similar presentationlast evening and AMA discharge. She is again short of breath with significant wheeze. She is again s everely had significant distress with respiratory rate of 36 in the ER and 87% saturation on room air, 91% on 5 L with eventual improvement after high flow nasal cannula provided. Chest x-ray appearsunchanged from yesterday's. Labs reveal a unremarkable CBC, mild hyponatremia 135, hypochloremia 97notably a rise in serum bicarbonate 32.1. Normal LFTs. Patient has a complex allergy andallergy history and has seen immunology here locally in addition to pulmonology and rheumatology. Nebulized breathing treatments with low albuterol were provided again as ipratropium is also reported as allergy/intolerance but further review indicates this is a relative contraindication for history of glaucoma. Most recent pulmonology note skin test done at art psychotherapist office was positive for hydrocortisone and methylprednisolone but negative for Decadron andKenalog. Patient was supposed to have Decadron challenge though this has not been completed yet. Additionally reported allergies to inhaled corticosteroids as well including that of Pulmicort, Advair, Symbicort. She was recommended to continue her antiallergy medication prescribed for seasonal allergies and rhinorrhea and continue antiacid control of GERD precipitating respiratory issues with PPI or [id number]-bxm-[id number] famotidine. [facility] During the hospitalization her symptoms improved gradually and has been weaned down to 3 to 4 L by nasal cannula. She has been stable from breathing standpoint and is [facility]. She is recommended to follow-up with PCP, art psychotherapist and analytics specialist. Condition Condition at Discharge: Stable Time Spent with Patient Time spent providing/coordinating discharge services (# min): 38 Discharge Plan Discharge Plan Patient Disposition: Home Activity: Ambulate as Tolerated Diet: Low-Sodium and Low-Cholesterol Additional Instructions: Follow-up with Dr. Reyes as previously scheduled on 08/20/24 Instructions: Know your Meds Prescriptions: Continued albuterol sulfate 2.5 mg /3 mL (0.083 %) solution for nebulization 2.5 mg inhalation Q4-6H PRN (Reason: Shortness Of Breath Or Wheezing) 30 DaysQty: 360 11RF Rx Instructions: DX J44.9 COPD albuterol sulfate 90 mcg/actuation HFA aerosol inhaler 2 puff INHALATION Q4H PRN (Reason: Shortness Of Breath) 30 Days Qty: 8.5 11RF albuterol sulfate [Ventolin HFA] 90 mcg/actuation HFA aerosol inhaler 2 inh inhalation Q4H PRN (Reason: Shortness Of Breath) 30 Days Qty: 18 11RF Rx Instructions: Pt needs ventolin HFA clonidine HCl 0.1 mg Tablet 0.1 mg PO DIRECTED PRN (Reason: Blood Pressure) Rx Instructions: > 180/110 amlodipine 2.5 mg tablet 2.5 mg PO DAILY Patient Comments: take 1 tablet by mouth every morning levothyroxine 50 mcg tablet 50 mcg PO DAILY pantoprazole 40 mg tablet,delayed release (DR/EC) 40 mg PO BID montelukast 10 mg tablet 10 mg PO HS febuxostat 40 mg tablet 40 mg PO HS promethazine 25 mg tablet 25 mg PO Q6HR PRN (Reason: Nausea) ondansetron 4 mg tablet,disintegrating 4 mg PO TID PRN (Reason: nausea and vomiting) Patient Comments: DISSOLVE 1 TABLET ON THE TONGUE THREE TIMES A DAY NEEDED FOR NAUSEA FOR 7 DAYS cholecalciferol (vitamin D3) 125 mcg (5,000 unit) Tablet 125 mcg PO DAILY diphenhydramine HCl [Benadryl] 25 mg Capsule 25 mg PO BID PRN (Reason: Allergy Symptoms) cetirizine 10 mg tablet 20 mg PO DAILY gabapentin 300 mg capsule 600 mg PO TID Patient Comments: TAKE 2 CAPSULES BY MOUTH 3 TIMES A DAY NEEDED alprazolam 0.5 mg tablet 0.5 mg PO QAM PRN (Reason: anxiety) nortriptyline 10 mg capsule 10 mg PO QHS hydroxyzine HCl 25 mg tablet 25 mg PO BID PRN (Reason: itching) (DME) CPAP (Continuous Positive Airway Pressure) Unit See Rx Instructions .Route Rx Instructions: As directed DME [employer] thiamine HCl (vitamin B1) 100 mg tablet 100 mg PO DAILY theophylline 300 mg tablet extended release 12 hr 300 mg PO Q12HR alprazolam 1 mg tablet 1 mg PO HS PRN (Reason: sleep) Rx Instructions: at night as directed epinephrine 0.3 mg/0.3 mL auto-injector 0.3 ml subcut .prn metoprolol succinate 50 mg tablet extended release 24 hr 50 mg PO DAILY delta 8 1 tab PO DIRECTED PRN (Reason: pain) Rx Instructions: 1 tab orally; Gummie CBD for pain Estroven 155 mg capsule 1 cap PO DAILY Follow Up: [facility] [Primary Care Provider] - 08/19/24 10:30 am (Post hospital appointment. Please call to reschedule if needed.) Exam Physical Exam Vital Signs: Temp Pulse Resp BP Pulse Ox O2 Del Method O2 Flow Rate 98.3 F 79 20 134/81 92 L Nasal Cannula 1 08/16/24 08:00 08/16/24 16:24 08/16/24 16:24 08/16/24 16:00 08/16/24 16:00 08/16/24 16:00 08/16/24 16:00 FiO2 55 08/14/24 08:20 Narrative: Physical Examination: GENERAL APPEARANCE: Alert, up in bed AAOx3 CARDIAC: Normal S1 and S2. No S3, S4 or murmurs. LUNGS: Patient has scattered monophonic wheezing ABDOMEN: Positive bowel sounds. Soft, nontender. No guarding or signs of an acute abdomen MUSCULOSKELETAL: No joint erythema or tenderness. EXTREMITIES: No clubbing, cyanosis or edema NEUROLOGICAL: No focal deficits SKIN: Skin normal color, texture and turgor with no lesions or eruptions. PSYCHIATRIC: Appropriate mood and affect Diagnostic Studies Completed and Pending Studies Pending studies at discharge: 08/14/24 09:13 MISC LAB Routine 08/17/24 05:00 Basic Metabolic Panel [CHEM] IN AM Complete Blood Count Auto Diff IN AM Labs on day of discharge: 08/16/24 04:53: Corrected WBC 6.6, Uncorrected WBC Count 6.6, RBC 4.68, Hgb 13.9, Hct 40.6, MCV 86.9, MCH 29.7, MCHC 34.1, RDW 13.4, Plt Count 271, MPV 8.3, Neut % (Auto) 47.9, Lymph % (Auto) 30.6, [place] % (Auto) 10.7, Eos % (Auto) 9.5, Baso % (Auto) 1.3, Nucleat RBC Rel Count 0.1, Neut # (Auto) 3.2, Lymph # (Auto) 2.0, [place] # (Auto) 0.7, Eos # (Auto) 0.6 H, Baso # (Auto) 0.1, PHA Creatinine Clear73.57, Sodium 136, Potassium 3.7, Chloride 100, Carbon Dioxide 28.9, Anion Gap 10.8, BUN 17, Creatinine 0.90, Est GFR (CKD-EPI) > 60.0, Glucose 99, Calcium 9.5 Documented By: Shyam Echevarria MD 08/16/24 165 Signed By: 08/16/24 1659 [facility]01-05-2025 Progress note Author Shyam Echevarria [facility] Note Date/Time August 15, 2024 5: 17pm [facility] [address] [place] [address] Hospitalist Progress Note Signed Patient: Meredith Chaidez MR#: [id number] : 1970 Acct:[id number] Age/Sex: 54 / F Adm Date: 5 Loc: Room: [address] [place] [address] Type: ADM IN Attending Dr: Shyam Echevarria MD Copies to: ~ Date of Service: 08/15/2024 Subjective Subjective Narrative: This patient is a 54-year-old female with significant past medical history of asthma, multiple allergies, autoimmune disease who presented emergency department this evening after similar presentation last evening and AMA discharge. She is again short of breath with significant wheeze. She is again severely had significant distress with respiratory rate of 36 in the ER and 87% saturation on room air, 91% on 5 L with eventual improvement after high flow nasal cannula provided. Chest x-ray appears unchanged from yesterday's. Labs reveal a unremarkable CBC, mild hyponatremia 135, hypochloremia 97 notably a rise in serum bicarbonate 32.1. Normal LFTs. Patient has a complex allergy andallergy history and has seen immunology here locally in addition to pulmonology and rheumatology. Nebulized breathing treatments with low albuterol were provided again as ipratropium is also reported as allergy/intolerance but further review indicates this is a relative contraindication for history of glaucoma. Most recent pulmonology note skin test done at art psychotherapist office was positive forhydrocortisone and methylprednisolone but negative for Decadron and Kenalog. Patient was supposed to have Decadron challenge though this has not been completed yet. Additionally reported allergies to inhaled corticosteroids as well including that of Pulmicort, Advair, Symbicort. She was recommended to continue her antiallergy medication prescribed for seasonal allergies and rhinorrhea and continue antiacid control of GERD precipitating respiratory issues with PPI or pshw-tue-qploafm famotidine. Interval history-Patient is lying in the bed and is breathing at 3 L by nasal cannula. Still at shortness of breath with exertion Physical Examination: GENERAL APPEARANCE: Alert, up in bed AAOx3 CARDIAC: Normal S1 and S2. No S3, S4 or murmurs. LUNGS: Patient has scattered monophonic wheezing ABDOMEN: Positive bowel sounds. Soft, nontender. No guarding or signs of an acute abdomen MUSCULOSKELETAL: No joint erythema or tenderness. EXTREMITIES: No clubbing, cyanosis or edema NEUROLOGICAL: No focal deficits SKIN: Skin normal color, texture and turgor with no lesions or eruptions. PSYCHIATRIC: Appropriate mood and affect Assessment and plan: 1. Acute on chronic hypoxic respiratory failure with suspected hypercarbia 2. Acute exacerbation of asthmatic lung disease, reactive airway disease by PFTs 3. Mild hyponatremia 4. Rheumatoid arthritis with overlying osteoarthritis, hypermobility syndrome 5. Glaucoma with history of bilateral stents 6. Obstructive sleep apnea 7. Elevated serum bicarbonate, suspected hypercapnic compensation 8. Hypothyroidism 9. Hepatic steatosis Assessment-shortness of breath likely in setting of asthma flareup Plan: -Admit in the regular nursing floor -Due to her history of allergy patient could not get any steroids, patient has extreme reaction to all different kind of steroids including Decadron which was tried during last hospitalization -Due to cataract patient also cannot take ipratropium -Currently only being managed with albuterol inhaler scheduled and as needed -Continue on POA medication-gabapentin, Xanax, Norvasc, vitamin D, clonidine, for Oxistat, hydroxyzine, levothyroxine, loratadine, metoprolol, montelukast, nortriptyline, pantoprazole, promethazine Full code DVT prophylaxis-SCD Exam Physical Exam Vital Signs: Temp Pulse Resp BP Pulse Ox O2 Del Method O2 Flow Rate 98.5 F 80 16 138/61 96 Nasal Cannula 3 08/15/24 08:00 08/15/24 13:32 08/15/24 16:00 08/15/24 16:00 08/15/24 16:00 08/15/24 16:00 08/15/24 16:00 FiO2 55 08/14/24 08:20 Narrative: Physical Examination: GENERAL APPEARANCE: Alert, up in bed AAOx3 CARDIAC: Normal S1 and S2. No S3, S4 or murmurs. LUNGS: Patient has scattered monophonic wheezing ABDOMEN: Positive bowel sounds. Soft, nontender. No guarding or signs of an acute abdomen MUSCULOSKELETAL: No joint erythema or tenderness. EXTREMITIES: No clubbing, cyanosis or edema NEUROLOGICAL: No focal deficits SKIN: Skin normal color, texture and turgor with no lesions or eruptions. PSYCHIATRIC: Appropriate mood and affect Objective Lab Results 08/15/24 05:23 08/15/24 05:23 Meds Allergies and Active Meds Allergies adhesive Allergy (Unknown, Verified 08/13/24 19:35) Rash aspirin Allergy (Unknown, Verified 08/13/24 19:35) Hives bisoprolol (From Ziac) Allergy (Unknown, Verified 08/13/24 19:35) Vomiting cefdinir Allergy (Unknown, Verified 08/13/24 19:35) Vomiting erythromycin base Allergy (Unknown, Verified 08/13/24 19:35) Vomiting eszopiclone (Lunesta) Allergy (Unknown, Verified 08/13/24 19:35) Unknown Reaction fluticasone (From Advair Diskus) Allergy (Unknown, Verified 08/13/24 19:35) Hives heparin Allergy (Unknown, Verified 08/13/24 19:35) Swelling hydrochlorothiazide (From Ziac) Allergy (Unknown, Verified 08/13/24 19:35) Vomiting ketorolac (From Toradol) Allergy (Unknown, Verified 08/13/24 19:35) Nausea latanoprost Allergy (Unknown, Verified 08/13/24 19:35) Rash latex Allergy (Unknown, Verified 08/13/24 19:35) Rash medroxyprogesterone (From Depo-Provera) Allergy (Unknown, Verified 08/13/24 19:35) Hives morphine Allergy (Unknown, Verified 08/13/24 19:35) Hives nabumetone (From Relafen) Allergy (Unknown, Verified 08/13/24 19:35) Hives nalbuphine (From Nubain) Allergy (Unknown, Verified 08/13/24 19:35) Hives NSAIDS (Non-Steroidal Anti-Inflamma Allergy (Unknown, Verified 08/13/24 19:35) Nausea prednisone Allergy (Unknown, Verified 08/13/24 19:35) Unknown Reaction pregabalin (From Lyrica) Allergy (Unknown, Verified 08/13/24 19:35) Unknown Reaction quetiapine (From Seroquel) Allergy (Unknown, Verified 08/13/24 19:35) Vomiting rizatriptan (From Maxalt) Allergy (Unknown, Verified 08/13/24 19:35) Hives rofecoxib (From Vioxx) Allergy (Unknown, Verified 08/13/24 19:35) Hives sumatriptan (From Imitrex) Allergy (Unknown, Verified 08/13/24 19:35) Hives tizanidine (From Zanaflex) Allergy (Unknown, Verified 08/13/24 19:35) Unknown Reaction warfarin (From Coumadin) Allergy (Unknown, Verified 08/13/24 19:35) Unknown Reaction acetaminophen (From Percocet) Allergy (Verified 08/13/24 19:35) Unknown Reaction cephalexin (From Keflex) Allergy (Verified 08/13/24 19:35) Unknown Reaction hydrocodone Allergy (Verified 08/13/24 19:35) Unknown Reaction ipratropium Allergy (Verified 08/13/24 19:35) Hives methylprednisolone Allergy (Verified 08/13/24 19:35) Unknown Reaction oxycodone (From Percocet) Allergy (Verified 08/13/24 19:35) Unknown Reaction sulfamethoxazole (From Bactrim) Allergy (Verified 08/13/24 19:35) Unknown Reaction trimethoprim (From Bactrim) Allergy (Verified 08/13/24 19:35) Unknown Reaction codeine Adverse Reaction (Verified 08/13/24 19:35) Unknown Reaction diclofenac (From Arthrotec) Adverse Reaction (Verified 08/13/24 19:35) Unknown Reaction Active Meds: Active Medications Generic Name Dose Route Start Last Admin Trade Name Freq PRN Reason Stop Dose Admin Acetaminophen 1,000 mg 08/14/24 01:15 Acetaminophen 500 Mg Tablet PO 08/14/25 01:14 Q6H PRN Fever or Pain Albuterol 7.5 mg 08/13/24 22:09 Albuterol Neb 2.5 Mg/3 Ml Vial.Neb INHALATION 08/13/25 22:08 Q3H PRN Shortness Of Breath Albuterol 5 mg 08/14/24 08:00 08/15/24 13:30 Albuterol Neb 2.5 Mg/3 Ml Vial.Neb INHALATION 08/14/25 07:59 5 mg QID.RESP DAMON Administration Alprazolam 1 mg 08/14/24 01:23 08/14/24 01:40 Alprazolam 0.5 Mg Tablet PO 02/10/25 01:22 1 mg HS PRN Administration sleep Alprazolam 0.5 mg 08/14/24 01:12 Alprazolam 0.5 Mg Tablet PO 02/10/25 01:11 QAM PRN anxiety Amlodipine Besylate 2.5 mg 08/14/24 12:45 08/15/24 08:29 Amlodipine 2.5 Mg Tablet PO 08/14/25 12:44 2.5 mg DAILY DAMON Administration Clonidine HCl 0.1 mg 08/14/24 12:31 Clonidine 0.1 Mg Tablet PO 08/14/25 12:30 BID PRN Blood Pressure >180 Diphenhydramine HCl 25 mg 08/14/24 01:15 Diphenhydramine 50 Mg/Ml Vial IV-PUSH 08/14/25 01:14 Q6H PRN itching, pain, nausea, anxiety Diphenhydramine HCl 25 mg 08/14/24 11:27 Diphenhydramine 25 Mg Capsule PO 08/14/25 11:26 BID PRN Allergy Symptoms Gabapentin 600 mg 08/15/24 09:00 08/15/24 14:21 Gabapentin 600 Mg Tablet PO 08/14/25 01:11 600 mg TID DAMON Administration Guaifenesin 1,200 mg 08/14/24 01:20 08/15/24 08:28 Guaifenesin 600 Mg Tab.Er.12h PO 08/14/25 01:19 Not Given BID DAMON Hydroxyzine Pamoate 25 mg 08/14/24 01:27 Hydroxyzine Pamoate 25 Mg Capsule PO 08/14/25 01:26 BID PRN itching Levothyroxine Sodium 50 mcg 08/14/24 06:30 08/15/24 06:18 Levothyroxine 50 Mcg Tablet PO 08/14/25 06:29 50 mcg DAILY.0630 DAMON Administration Loratadine 20 mg 08/14/24 12:45 08/15/24 08:28 Loratadine 10 Mg Tablet PO 08/14/25 12:44 Not Given DAILY DAMON Metoprolol Succinate 50 mg 08/14/24 01:15 08/15/24 08:28 Metoprolol Succinate 50 Mg Tab.Er.24h PO 08/14/25 01:14 50 mg DAILY DAMON Administration Montelukast Sodium 10 mg 08/14/24 01:15 08/14/24 21:16 Montelukast 10 Mg Tablet PO 08/14/25 01:14 10 mg HS DAMON Administration Non-Formulary Medication 40 mg 08/14/24 22:00 08/14/24 21:17 Febuxostat PO 08/14/25 21:59 Not Given HS DAMON Nortriptyline HCl 10 mg 08/14/24 01:15 08/14/24 21:16 Nortriptyline 10 Mg Capsule PO 08/14/25 01:14 10 mg QHS DAMON Administration Pantoprazole Sodium 40 mg 08/14/24 09:00 08/15/24 08:28 Pantoprazole 40 Mg Tablet.Dr PO 08/14/25 08:59 40 mg BID DAMON Administration Promethazine HCl 25 mg 08/14/24 11:27 Promethazine 25 Mg Tablet PO 08/14/25 11:26 Q6HR PRN Nausea Sodium Chloride 0 ml 08/13/24 19:33 Sodium Chloride 0.9 % 10 Ml Syringe IV-PUSH 08/13/25 19:32 PRN PRN Flush Vitamin D 125 mcg 08/15/24 09:00 08/15/24 08:27 Cholecalciferol 125 Mcg (5,000 Units) Capsule PO 08/15/25 08:59 125 mcg DAILY DAMON Administration A&P - Hospitalist Assessment/Plan (1) Acute on chronic hypoxic respiratory failure: Plan . Documented By: Shyam Echevarria MD 08/15/241714 Signed By: <Electronically signed by Shyam Echevarria MD> 08/15/241716 [facility] Work Phone: 1(805) 523-658101-05-2025 [place] [address] Hospitalist Progress Note Signed Patient: Meredith Chaidez MR#: [id number] : 1970 Acct:[id number] Age/Sex: 54 / F Adm Date: 5 Loc: Room: [address] [place] [address] Type: ADM IN Attending Dr: Shyam Echevarria MD Copies to: ~ Date of Service: 08/15/2024 Subjective Subjective Narrative: This patient is a 54-year-old female with significant past medical history of asthma, multiple allergies, autoimmune disease who presented emergency department this evening after similar presentationlast evening and AMA discharge. She is again short of breath with significant wheeze. She is again s everely had significant distress with respiratory rate of 36 in the ER and 87% saturation on room air, 91% on 5 L with eventual improvement after high flow nasal cannula provided. Chest x-ray appearsunchanged from yesterday's. Labs reveal a unremarkable CBC, mild hyponatremia 135, hypochloremia 97notably a rise in serum bicarbonate 32.1. Normal LFTs. Patient has a complex allergy andallergy history and has seen immunology here locally in addition to pulmonology and rheumatology. Nebulized breathing treatments with low albuterol were provided again as ipratropium is also reported as allergy/intolerance but further review indicates this is a relative contraindication for history of glaucoma. Most recent pulmonology note skin test done at art psychotherapist office was positive forhydrocortisone and methylprednisolone but negative for Decadron and Kenalog. Patient was supposed to have Decadron challenge though this has not been completed yet. Additionally reported allergies to inhaled corticosteroids as well including that of Pulmicort, Advair, Symbicort. She was recommended to continue her antiallergy medication prescribed for seasonal allergies and rhinorrhea and continue antiacid control of GERD precipitating respiratory issues with PPI or [id number] famotidine. Interval history-Patient is lying in the bed and is breathing at 3 L by nasal cannula. Still at shortness of breath with exertion Physical Examination: GENERAL APPEARANCE: Alert, up in bed AAOx3 CARDIAC: Normal S1 and S2. No S3, S4 or murmurs. LUNGS: Patient has scattered monophonic wheezing ABDOMEN: Positive bowel sounds. Soft, nontender. No guarding or signs of an acute abdomen MUSCULOSKELETAL: No joint erythema or tenderness. EXTREMITIES: No clubbing, cyanosis or edema NEUROLOGICAL: No focal deficits SKIN: Skin normal color, texture and turgor with no lesions or eruptions. PSYCHIATRIC: Appropriate mood and affect Assessment and plan: 1. Acute on chronic hypoxic respiratory failure with suspected hypercarbia 2. Acute exacerbation of asthmatic lung disease, reactive airway disease by PFTs 3. Mild hyponatremia 4. Rheumatoid arthritis with overlying osteoarthritis, hypermobility syndrome 5. Glaucoma with history of bilateral stents 6. Obstructive sleep apnea 7. Elevated serum bicarbonate, suspected hypercapnic compensation 8. Hypothyroidism 9. Hepatic steatosis Assessment-shortness of breath likely in setting of asthma flareup Plan: -Admit in the regular nursing floor -Due to her history of allergy patient could not get any steroids, patient has extreme reaction to all different kind of steroids including Decadron which was tried during last hospitalization -Due to cataract patient also cannot take ipratropium -Currently only being managed with albuterol inhaler scheduled and as needed -Continue on POA medication-gabapentin, Xanax, Norvasc, vitamin D, clonidine, for Oxistat, hydroxyzine, levothyroxine, loratadine, metoprolol, montelukast, nortriptyline, pantoprazole, promethazine Full code DVT prophylaxis-SCD Exam Physical Exam Vital Signs: Temp Pulse Resp BP Pulse Ox O2 Del Method O2 Flow Rate 98.5 F 80 16 138/61 96 Nasal Cannula 3 08/15/24 08:00 08/15/24 13:32 08/15/24 16:00 08/15/24 16:00 08/15/24 16:00 08/15/24 16:00 08/15/24 16:00 FiO2 55 08/14/24 08:20 Narrative: Physical Examination: GENERAL APPEARANCE: Alert, up in bed AAOx3 CARDIAC: Normal S1 and S2. No S3, S4 or murmurs. LUNGS: Patient has scattered monophonic wheezing ABDOMEN: Positive bowel sounds. Soft, nontender. No guarding or signs of an acute abdomen MUSCULOSKELETAL: No joint erythema or tenderness. EXTREMITIES: No clubbing, cyanosis or edema NEUROLOGICAL: No focal deficits SKIN: Skin normal color, texture and turgor with no lesions or eruptions. PSYCHIATRIC: Appropriate mood and affect Objective Lab Results 08/15/24 05:23 08/15/24 05:23 Meds Allergies and Active Meds Allergies adhesive Allergy (Unknown, Verified 08/13/24 19:35) Rash aspirin Allergy (Unknown, Verified 08/13/24 19:35) Hives bisoprolol (From Ziac) Allergy (Unknown, Verified 08/13/24 19:35) Vomiting cefdinir Allergy (Unknown, Verified 08/13/24 19:35) Vomiting erythromycin base Allergy (Unknown, Verified 08/13/24 19:35) Vomiting eszopiclone (Lunesta) Allergy (Unknown, Verified 08/13/24 19:35) Unknown Reaction fluticasone (From Advair Diskus) Allergy (Unknown, Verified 08/13/24 19:35) Hives heparin Allergy (Unknown, Verified 08/13/24 19:35) Swelling hydrochlorothiazide (From Ziac) Allergy (Unknown, Verified 08/13/24 19:35) Vomiting ketorolac (From Toradol) Allergy (Unknown, Verified 08/13/24 19:35) Nausea latanoprost Allergy (Unknown, Verified 08/13/24 19:35) Rash latex Allergy (Unknown, Verified 08/13/24 19:35) Rash medroxyprogesterone (From Depo-Provera) Allergy (Unknown, Verified 08/13/24 19:35) Hives morphine Allergy (Unknown, Verified 08/13/24 19:35) Hives nabumetone (From Relafen) Allergy (Unknown, Verified 08/13/24 19:35) Hives nalbuphine (From Nubain) Allergy (Unknown, Verified 08/13/24 19:35) Hives NSAIDS (Non-Steroidal Anti-Inflamma Allergy (Unknown, Verified 08/13/24 19:35) Nausea prednisone Allergy (Unknown, Verified 08/13/24 19:35) Unknown Reaction pregabalin (From Lyrica) Allergy (Unknown, Verified 08/13/24 19:35) Unknown Reaction quetiapine (From Seroquel) Allergy (Unknown, Verified 08/13/24 19:35) Vomiting rizatriptan (From Maxalt) Allergy (Unknown, Verified 08/13/24 19:35) Hives rofecoxib (From Vioxx) Allergy (Unknown, Verified 08/13/24 19:35) Hives sumatriptan (From Imitrex) Allergy (Unknown, Verified 08/13/24 19:35) Hives tizanidine (From Zanaflex) Allergy (Unknown, Verified 08/13/24 19:35) Unknown Reaction warfarin (From Coumadin) Allergy (Unknown, Verified 08/13/24 19:35) Unknown Reaction acetaminophen (From Percocet) Allergy (Verified 08/13/24 19:35) Unknown Reaction cephalexin (From Keflex) Allergy (Verified 08/13/24 19:35) Unknown Reaction hydrocodone Allergy (Verified 08/13/24 19:35) Unknown Reaction ipratropium Allergy (Verified 08/13/24 19:35) Hives methylprednisolone Allergy (Verified 08/13/24 19:35) Unknown Reaction oxycodone (From Percocet) Allergy (Verified 08/13/24 19:35) Unknown Reaction sulfamethoxazole (From Bactrim) Allergy (Verified 08/13/24 19:35) Unknown Reaction trimethoprim (From Bactrim) Allergy (Verified 08/13/24 19:35) Unknown Reaction codeine Adverse Reaction (Verified 08/13/24 19:35) Unknown Reaction diclofenac (From Arthrotec) Adverse Reaction (Verified 08/13/24 19:35) Unknown Reaction Active Meds: Active Medications Generic Name Dose Route Start Last Admin Trade Name Freq PRN Reason Stop Dose Admin Acetaminophen 1,000 mg 08/14/24 01:15 Acetaminophen 500 Mg Tablet PO 08/14/25 01:14 Q6H PRN Fever or Pain Albuterol 7.5 mg 08/13/24 22:09 Albuterol Neb 2.5 Mg/3 Ml Vial.Neb INHALATION 08/13/25 22:08 Q3H PRN Shortness Of Breath Albuterol 5 mg 08/14/24 08:00 08/15/24 13:30 Albuterol Neb 2.5 Mg/3 Ml Vial.Neb INHALATION 08/14/25 07:59 5 mg QID.RESP DAMON Administration Alprazolam 1 mg 08/14/24 01:23 08/14/24 01:40 Alprazolam 0.5 Mg Tablet PO 02/10/25 01:22 1 mg HS PRN Administration sleep Alprazolam 0.5 mg 08/14/24 01:12 Alprazolam 0.5 Mg Tablet PO 02/10/25 01:11 QAM PRN anxiety Amlodipine Besylate 2.5 mg 08/14/24 12:45 08/15/24 08:29 Amlodipine 2.5 Mg Tablet PO 08/14/25 12:44 2.5 mg DAILY DAMON Administration Clonidine HCl 0.1 mg 08/14/24 12:31 Clonidine 0.1 Mg Tablet PO 08/14/25 12:30 BID PRN Blood Pressure >180 Diphenhydramine HCl 25 mg 08/14/24 01:15 Diphenhydramine 50 Mg/Ml Vial IV-PUSH 08/14/25 01:14 Q6H PRN itching, pain, nausea, anxiety Diphenhydramine HCl 25 mg 08/14/24 11:27 Diphenhydramine 25 Mg Capsule PO 08/14/25 11:26 BID PRN Allergy Symptoms Gabapentin 600 mg 08/15/24 09:00 08/15/24 14:21 Gabapentin 600 Mg Tablet PO 08/14/25 01:11 600 mg TID DAMON Administration Guaifenesin 1,200 mg 08/14/24 01:20 08/15/24 08:28 Guaifenesin 600 Mg Tab.Er.12h PO 08/14/25 01:19 Not Given BID DAMON Hydroxyzine Pamoate 25 mg 08/14/24 01:27 Hydroxyzine Pamoate 25 Mg Capsule PO 08/14/25 01:26 BID PRN itching Levothyroxine Sodium 50 mcg 08/14/24 06:30 08/15/24 06:18 Levothyroxine 50 Mcg Tablet PO 08/14/25 06:29 50 mcg DAILY.0630 DAMON Administration Loratadine 20 mg 08/14/24 12:45 08/15/24 08:28 Loratadine 10 Mg Tablet PO 08/14/25 12:44 Not Given DAILY DAMON Metoprolol Succinate 50 mg 08/14/24 01:15 08/15/24 08:28 Metoprolol Succinate 50 Mg Tab.Er.24h PO 08/14/25 01:14 50 mg DAILY DAMON Administration Montelukast Sodium 10 mg 08/14/24 01:15 08/14/24 21:16 Montelukast 10 Mg Tablet PO 08/14/25 01:14 10 mg HS DAMON Administration Non-Formulary Medication 40 mg 08/14/24 22:00 08/14/24 21:17 Febuxostat PO 08/14/25 21:59 Not Given HS DAMON Nortriptyline HCl 10 mg 08/14/24 01:15 08/14/24 21:16 Nortriptyline 10 Mg Capsule PO 08/14/25 01:14 10 mg QHS DAMON Administration Pantoprazole Sodium 40 mg 08/14/24 09:00 08/15/24 08:28 Pantoprazole 40 Mg Tablet. PO 08/14/25 08:59 40 mg BID DAMON Administration Promethazine HCl 25 mg 08/14/24 11:27 Promethazine 25 Mg Tablet PO 08/14/25 11:26 Q6HR PRN Nausea Sodium Chloride 0 ml 08/13/24 19:33 Sodium Chloride 0.9 % 10 Ml Syringe IV-PUSH 08/13/25 19:32 PRN PRN Flush Vitamin D 125 mcg 08/15/24 09:00 08/15/24 08:27 Cholecalciferol 125 Mcg (5,000 Units) Capsule PO 08/15/25 08:59 125 mcg DAILY DAMON Administration A&P - Hospitalist Assessment/Plan (1) Acute on chronic hypoxic respiratory failure: Plan . Documented By: Shyam Echevarria MD 08/15/241714 Signed By: 08/15/241716 [facility]01-04-2025 Progress note Author Shyam Echevarria [facility] Note Date/Time August 14, 2024 3: 35pm [facility] [address] [place] [address] Hospitalist Progress Note Signed Patient: Meredith Chaidez MR#: [id number] : 1970 Acct:[id number] Age/Sex: 54 / F Adm Date: 5 Loc: Room: [address] [place] [address] Type: ADM IN Attending Dr: Shyam Echevarria MD Copies to: ~ Date of Service: 08/14/2024 Subjective Subjective Narrative: This patient is a 54-year-old female with significant past medical history of asthma, multiple allergies, autoimmune disease who presented emergency department this evening after similar presentation last evening and AMA discharge. She is again short of breath with significant wheeze. She is again severely had significant distress with respiratory rate of 36 in the ER and 87% saturation on room air, 91% on 5 L with eventual improvement after high flow nasal cannula provided. Chest x-ray appears unchanged from yesterday's. Labs reveal a unremarkable CBC, mild hyponatremia 135, hypochloremia 97 notably a rise in serum bicarbonate 32.1. Normal LFTs. Patient has a complex allergy andallergy history and has seen immunology here locally in addition to pulmonology and rheumatology. Nebulized breathing treatments with low albuterol were provided again as ipratropium is also reported as allergy/intolerance but further review indicates this is a relative contraindication for history of glaucoma. Most recent pulmonology note skin test done at [facility] psychotherapist office was positive forhydrocortisone and methylprednisolone but negative for Decadron and Kenalog. Patient was supposed to have Decadron challenge though this has not been completed yet. Additionally reported allergies to inhaled corticosteroids as well including that of Pulmicort, Advair, Symbicort. She was recommended to continue her antiallergy medication prescribed for seasonal allergies and rhinorrhea and continue antiacid control of GERD precipitating respiratory issues with PPI or [id number] famotidine. Interval history-Patient is lying in the bed and is breathing at 6 L by nasal cannula. Also has shortness of breath mostly with exertion. Physical Examination: GENERAL APPEARANCE: Alert, up in bed AAOx3 CARDIAC: Normal S1 and S2. No S3, S4 or murmurs. LUNGS: Patient has scattered monophonic wheezing ABDOMEN: Positive bowel sounds. Soft, nontender. No guarding or signs of an acute abdomen MUSCULOSKELETAL: No joint erythema or tenderness. EXTREMITIES: No clubbing, cyanosis or edema NEUROLOGICAL: No focal deficits SKIN: Skin normal color, texture and turgor with no lesions or eruptions. PSYCHIATRIC: Appropriate mood and affect Assessment and plan: 1. Acute on chronic hypoxic respiratory failure with suspected hypercarbia 2. Acute exacerbation of asthmatic lung disease, reactive airway disease by PFTs 3. Mild hyponatremia 4. Rheumatoid arthritis with overlying osteoarthritis, hypermobility syndrome 5. Glaucoma with history of bilateral stents 6. Obstructive sleep apnea 7. Elevated serum bicarbonate, suspected hypercapnic compensation 8. Hypothyroidism 9. Hepatic steatosis Assessment-shortness of breath likely in setting of asthma flareup Plan: -Admit in the regular nursing floor -Due to her history of allergy patient could not get any steroids, patient has extreme reaction to all different kind of steroids including Decadron which was tried during last hospitalization -Due to cataract patient also cannot take ipratropium -Currently only being managed with albuterol inhaler scheduled and as needed -Continue on POA medication-gabapentin, Xanax, Norvasc, vitamin D, clonidine, for Oxistat, hydroxyzine, levothyroxine, loratadine, metoprolol, montelukast, nortriptyline, pantoprazole, promethazine -Patient is already accepted at [facility] Main campus pending transfer Full code DVT prophylaxis-SCD Exam Physical Exam Vital Signs: Temp Pulse Resp BP Pulse Ox O2 Del Method O2 Flow Rate 97.5 F L 68 16 140/83 96 Nasal Cannula 6 08/14/24 12:00 08/14/24 12:00 08/14/24 12:00 08/14/24 12:00 08/14/24 12:00 08/14/24 12:00 08/14/24 12:00 FiO2 55 08/14/24 08:20 Objective Lab Results 08/14/24 09:13 08/14/24 09:13 Microbiology Results Microbiology 08/13/24 19:46 Nasopharyngeal Respiratory Panel (PCR) - Final Meds Allergies and Active Meds Allergies adhesive Allergy (Unknown, Verified 08/13/24 19:35) Rash aspirin Allergy (Unknown, Verified 08/13/24 19:35) Hives bisoprolol (From Ziac) Allergy (Unknown, Verified 08/13/24 19:35) Vomiting cefdinir Allergy (Unknown, Verified 08/13/24 19:35) Vomiting erythromycin base Allergy (Unknown, Verified 08/13/24 19:35) Vomiting eszopiclone (Lunesta) Allergy (Unknown, Verified 08/13/24 19:35) Unknown Reaction fluticasone (From Advair Diskus) Allergy (Unknown, Verified 08/13/24 19:35) Hives heparin Allergy (Unknown, Verified 08/13/24 19:35) Swelling hydrochlorothiazide (From Ziac) Allergy (Unknown, Verified 08/13/24 19:35) Vomiting ketorolac (From Toradol) Allergy (Unknown, Verified 08/13/24 19:35) Nausea latanoprost Allergy (Unknown, Verified 08/13/24 19:35) Rash latex Allergy (Unknown, Verified 08/13/24 19:35) Rash medroxyprogesterone (From Depo-Provera) Allergy (Unknown, Verified 08/13/24 19:35) Hives morphine Allergy (Unknown, Verified 08/13/24 19:35) Hives nabumetone (From Relafen) Allergy (Unknown, Verified 08/13/24 19:35) Hives nalbuphine (From Nubain) Allergy (Unknown, Verified 08/13/24 19:35) Hives NSAIDS (Non-Steroidal Anti-Inflamma Allergy (Unknown, Verified 08/13/24 19:35) Nausea prednisone Allergy (Unknown, Verified 08/13/24 19:35) Unknown Reaction pregabalin (From Lyrica) Allergy (Unknown, Verified 08/13/24 19:35) Unknown Reaction quetiapine (From Seroquel) Allergy (Unknown, Verified 08/13/24 19:35) Vomiting rizatriptan (From Maxalt) Allergy (Unknown, Verified 08/13/24 19:35) Hives rofecoxib (From Vioxx) Allergy (Unknown, Verified 08/13/24 19:35) Hives sumatriptan (From Imitrex) Allergy (Unknown, Verified 08/13/24 19:35) Hives tizanidine (From Zanaflex) Allergy (Unknown, Verified 08/13/24 19:35) Unknown Reaction warfarin (From Coumadin) Allergy (Unknown, Verified 08/13/24 19:35) Unknown Reaction acetaminophen (From Percocet) Allergy (Verified 08/13/24 19:35) Unknown Reaction cephalexin (From Keflex) Allergy (Verified 08/13/24 19:35) Unknown Reaction hydrocodone Allergy (Verified 08/13/24 19:35) Unknown Reaction ipratropium Allergy (Verified 08/13/24 19:35) Hives methylprednisolone Allergy (Verified 08/13/24 19:35) Unknown Reaction oxycodone (From Percocet) Allergy (Verified 08/13/24 19:35) Unknown Reaction sulfamethoxazole (From Bactrim) Allergy (Verified 08/13/24 19:35) Unknown Reaction trimethoprim (From Bactrim) Allergy (Verified 08/13/24 19:35) Unknown Reaction codeine Adverse Reaction (Verified 08/13/24 19:35) Unknown Reaction diclofenac (From Arthrotec) Adverse Reaction (Verified 08/13/24 19:35) Unknown Reaction Active Meds: Active Medications Generic Name Dose Route Start Last Admin Trade Name Freq PRN Reason Stop Dose Admin Acetaminophen 1,000 mg 08/14/24 01:15 Acetaminophen 500 Mg Tablet PO 08/14/25 01:14 Q6H PRN Fever or Pain Albuterol 7.5 mg 08/13/24 22:09 Albuterol Neb 2.5 Mg/3 Ml Vial.Neb INHALATION 08/13/25 22:08 Q3H PRN Shortness Of Breath Albuterol 5 mg 08/14/24 08:00 08/14/24 11:56 Albuterol Neb 2.5 Mg/3 Ml Vial.Neb INHALATION 08/14/25 07:59 5 mg QID.RESP DAMON Administration Alprazolam 1 mg 08/14/24 01:23 08/14/24 01:40 Alprazolam 0.5 Mg Tablet PO 02/10/25 01:22 1 mg HS PRN Administration sleep Alprazolam 0.5 mg 08/14/24 01:12 Alprazolam 0.5 Mg Tablet PO 02/10/25 01:11 QAM PRN anxiety Amlodipine Besylate 2.5 mg 08/14/24 12:45 08/14/24 12:57 Amlodipine 2.5 Mg Tablet PO 08/14/25 12:44 2.5 mg DAILY DAMON Administration Clonidine HCl 0.1 mg 08/14/24 12:31 Clonidine 0.1 Mg Tablet PO 08/14/25 12:30 BID PRN Blood Pressure >180 Diphenhydramine HCl 25 mg 08/14/24 01:15 Diphenhydramine 50 Mg/Ml Vial IV-PUSH 08/14/25 01:14 Q6H PRN itching, pain, nausea, anxiety Diphenhydramine HCl 25 mg 08/14/24 11:27 Diphenhydramine 25 Mg Capsule PO 08/14/25 11:26 BID PRN Allergy Symptoms Gabapentin 600 mg 08/14/24 14:00 08/14/24 13:00 Gabapentin 300 Mg Capsule PO 08/14/25 01:11 600 mg TID DAMON Administration Guaifenesin 1,200 mg 08/14/24 09:00 08/14/24 09:58 Guaifenesin 600 Mg Tab.Er.12h PO 08/14/25 08:59 1,200 mg BID DAMON Administration Guaifenesin 1,200 mg 08/14/24 01:20 08/14/24 09:58 Guaifenesin 600 Mg Tab.Er.12h PO 08/14/25 01:19 Not Given BID DAMON Hydroxyzine Pamoate 25 mg 08/14/24 01:27 Hydroxyzine Pamoate 25 Mg Capsule PO 08/14/25 01:26 BID PRN itching Influenza Virus Vacc Triv Types A&B 0.5 ml 08/15/24 08:00 Flu Vacc Tv (36mos +) Pf 0.5 Ml Syringe 24-25 IM 08/15/24 08:01 .ONCE ONE Levothyroxine Sodium 50 mcg 08/14/24 06:30 08/14/24 05:56 Levothyroxine 50 Mcg Tablet PO 08/14/25 06:29 50 mcg DAILY.0630 DAMON Administration Loratadine 20 mg 08/14/24 12:45 08/14/24 12:57 Loratadine 10 Mg Tablet PO 08/14/25 12:44 Not Given DAILY DAMON Metoprolol Succinate 50 mg 08/14/24 01:15 08/14/24 09:58 Metoprolol Succinate 50 Mg Tab.Er.24h PO 08/14/25 01:14 50 mg DAILY DAMON Administration Montelukast Sodium 10 mg 08/14/24 01:15 08/14/24 01:39 Montelukast 10 Mg Tablet PO 08/14/25 01:14 10 mg HS DAMON Administration Non-Formulary Medication 40 mg 08/14/24 22:00 Febuxostat PO 08/14/25 21:59 HS DAMON Nortriptyline HCl 10 mg 08/14/24 01:15 08/14/24 01:39 Nortriptyline 10 Mg Capsule PO 08/14/25 01:14 10 mg QHS DAMON Administration Pantoprazole Sodium 40 mg 08/14/24 09:00 08/14/24 09:58 Pantoprazole 40 Mg Tablet.Dr PO 08/14/25 08:59 40 mg BID DAMON Administration Promethazine HCl 25 mg 08/14/24 11:27 Promethazine 25 Mg Tablet PO 08/14/25 11:26 Q6HR PRN Nausea Sodium Chloride 0 ml 08/13/24 19:33 Sodium Chloride 0.9 % 10 Ml Syringe IV-PUSH 08/13/25 19:32 PRN PRN Flush Vitamin D 125 mcg 08/15/24 09:00 Cholecalciferol 125 Mcg (5,000 Units) Capsule PO 08/15/25 08:59 DAILY DAMON A&P - Hospitalist Assessment/Plan (1) Acute on chronic hypoxic respiratory failure: Plan . Documented By: Shyam Echevarria MD 08/14/24 1527 Signed By: <Electronically signed by Shyam Echevarria MD> 08/14/24 1535 [facility] Work Phone: [phone]) 276-614801-04-[address] [address] Hospitalist Progress Note Signed Patient: Meredith Chaidez MR#: [id number] : 1970 Acct:[id number] Age/Sex: 54 / F Adm Date: 5 Loc: Room: [address] [place] [address] Type: ADM IN Attending Dr: Shyam Echevarria MD Copies to: ~ Date of Service: 08/14/2024 Subjective Subjective Narrative: This patient is a 54-year-old female with significant past medical history of asthma, multiple allergies, autoimmune disease who presented emergency department this evening after similar presentationlast evening and AMA discharge. She is again short of breath with significant wheeze. She is again s everely had significant distress with respiratory rate of 36 in the ER and 87% saturation on room air, 91% on 5 L with eventual improvement after high flow nasal cannula provided. Chest x-ray appearsunchanged from yesterday's. Labs reveal a unremarkable CBC, mild hyponatremia 135, hypochloremia 97notably a rise in serum bicarbonate 32.1. Normal LFTs. Patient has a complex allergy andallergy history and has seen immunology here locally in addition to pulmonology and rheumatology. Nebulized breathing treatments with low albuterol were provided again as ipratropium is also reported as allergy/intolerance but further review indicates this is a relative contraindication for history of glaucoma. Most recent pulmonology note skin test done at art psychotherapist office was positive forhydrocortisone and methylprednisolone but negative for Decadron and Kenalog. Patient was supposed to have Decadron challenge though this has not been completed yet. Additionally reported allergies to inhaled corticosteroids as well including that of Pulmicort, Advair, Symbicort. She was recommended to continue her antiallergy medication prescribed for seasonal allergies and rhinorrhea and continue antiacid control of GERD precipitating respiratory issues with PPI or [id number] famotidine. Interval history-Patient is lying in the bed and is breathing at 6 L by nasal cannula. Also has shortness of breath mostly with exertion. Physical Examination: GENERAL APPEARANCE: Alert, up in bed AAOx3 CARDIAC: Normal S1 and S2. No S3, S4 or murmurs. LUNGS: Patient has scattered monophonic wheezing ABDOMEN: Positive bowel sounds. Soft, nontender. No guarding or signs of an acute abdomen MUSCULOSKELETAL: No joint erythema or tenderness. EXTREMITIES: No clubbing, cyanosis or edema NEUROLOGICAL: No focal deficits SKIN: Skin normal color, texture and turgor with no lesions or eruptions. PSYCHIATRIC: Appropriate mood and affect Assessment and plan: 1. Acute on chronic hypoxic respiratory failure with suspected hypercarbia 2. Acute exacerbation of asthmatic lung disease, reactive airway disease by PFTs 3. Mild hyponatremia 4. Rheumatoid arthritis with overlying osteoarthritis, hypermobility syndrome 5. Glaucoma with history of bilateral stents 6. Obstructive sleep apnea 7. Elevated serum bicarbonate, suspected hypercapnic compensation 8. Hypothyroidism 9. Hepatic steatosis Assessment-shortness of breath likely in setting of asthma flareup Plan: -Admit in the regular nursing floor -Due to her history of allergy patient could not get any steroids, patient has extreme reaction to all different kind of steroids including Decadron which was tried during last hospitalization -Due to cataract patient also cannot take ipratropium -Currently only being managed with albuterol inhaler scheduled and as needed -Continue on POA medication-gabapentin, Xanax, Norvasc, vitamin D, clonidine, for Oxistat, hydroxyzine, levothyroxine, loratadine, metoprolol, montelukast, nortriptyline, pantoprazole, promethazine -Patient is already accepted at [facility] Main campus pending transfer Full code DVT prophylaxis-SCD Exam Physical Exam Vital Signs: Temp Pulse Resp BP Pulse Ox O2 Del Method O2 Flow Rate 97.5 F L 68 16 140/83 96 Nasal Cannula 6 08/14/24 12:00 08/14/24 12:00 08/14/24 12:00 08/14/24 12:00 08/14/24 12:00 08/14/24 12:00 08/14/24 12:00 FiO2 55 08/14/24 08:20 Objective Lab Results 08/14/24 09:13 08/14/24 09:13 Microbiology Results Microbiology 08/13/24 19:46 Nasopharyngeal Respiratory Panel (PCR) - Final Meds Allergies and Active Meds Allergies adhesive Allergy (Unknown, Verified 08/13/24 19:35) Rash aspirin Allergy (Unknown, Verified 08/13/24 19:35) Hives bisoprolol (From Ziac) Allergy (Unknown, Verified 08/13/24 19:35) Vomiting cefdinir Allergy (Unknown, Verified 08/13/24 19:35) Vomiting erythromycin base Allergy (Unknown, Verified 08/13/24 19:35) Vomiting eszopiclone (Lunesta) Allergy (Unknown, Verified 08/13/24 19:35) Unknown Reaction fluticasone (From Advair Diskus) Allergy (Unknown, Verified 08/13/24 19:35) Hives heparin Allergy (Unknown, Verified 08/13/24 19:35) Swelling hydrochlorothiazide (From Ziac) Allergy (Unknown, Verified 08/13/24 19:35) Vomiting ketorolac (From Toradol) Allergy (Unknown, Verified 08/13/24 19:35) Nausea latanoprost Allergy (Unknown, Verified 08/13/24 19:35) Rash latex Allergy (Unknown, Verified 08/13/24 19:35) Rash medroxyprogesterone (From Depo-Provera) Allergy (Unknown, Verified 08/13/24 19:35) Hives morphine Allergy (Unknown, Verified 08/13/24 19:35) Hives nabumetone (From Relafen) Allergy (Unknown, Verified 08/13/24 19:35) Hives nalbuphine (From Nubain) Allergy (Unknown, Verified 08/13/24 19:35) Hives NSAIDS (Non-Steroidal Anti-Inflamma Allergy (Unknown, Verified 08/13/24 19:35) Nausea prednisone Allergy (Unknown, Verified 08/13/24 19:35) Unknown Reaction pregabalin (From Lyrica) Allergy (Unknown, Verified 08/13/24 19:35) Unknown Reaction quetiapine (From Seroquel) Allergy (Unknown, Verified 08/13/24 19:35) Vomiting rizatriptan (From Maxalt) Allergy (Unknown, Verified 08/13/24 19:35) Hives rofecoxib (From Vioxx) Allergy (Unknown, Verified 08/13/24 19:35) Hives sumatriptan (From Imitrex) Allergy (Unknown, Verified 08/13/24 19:35) Hives tizanidine (From Zanaflex) Allergy (Unknown, Verified 08/13/24 19:35) Unknown Reaction warfarin (From Coumadin) Allergy (Unknown, Verified 08/13/24 19:35) Unknown Reaction acetaminophen (From Percocet) Allergy (Verified 08/13/24 19:35) Unknown Reaction cephalexin (From Keflex) Allergy (Verified 08/13/24 19:35) Unknown Reaction hydrocodone Allergy (Verified 08/13/24 19:35) Unknown Reaction ipratropium Allergy (Verified 08/13/24 19:35) Hives methylprednisolone Allergy (Verified 08/13/24 19:35) Unknown Reaction oxycodone (From Percocet) Allergy (Verified 08/13/24 19:35) Unknown Reaction sulfamethoxazole (From Bactrim) Allergy (Verified 08/13/24 19:35) Unknown Reaction trimethoprim (From Bactrim) Allergy (Verified 08/13/24 19:35) Unknown Reaction codeine Adverse Reaction (Verified 08/13/24 19:35) Unknown Reaction diclofenac (From Arthrotec) Adverse Reaction (Verified 08/13/24 19:35) Unknown Reaction Active Meds: Active Medications Generic Name Dose Route Start Last Admin Trade Name Freq PRN Reason Stop Dose Admin Acetaminophen 1,000 mg 08/14/24 01:15 Acetaminophen 500 Mg Tablet PO 08/14/25 01:14 Q6H PRN Fever or Pain Albuterol 7.5 mg 08/13/24 22:09 Albuterol Neb 2.5 Mg/3 Ml Vial.Neb INHALATION 08/13/25 22:08 Q3H PRN Shortness Of Breath Albuterol 5 mg 08/14/24 08:00 08/14/24 11:56 Albuterol Neb 2.5 Mg/3 Ml Vial.Neb INHALATION 08/14/25 07:59 5 mg QID.RESP DAMON Administration Alprazolam 1 mg 08/14/24 01:23 08/14/24 01:40 Alprazolam 0.5 Mg Tablet PO 02/10/25 01:22 1 mg HS PRN Administration sleep Alprazolam 0.5 mg 08/14/24 01:12 Alprazolam 0.5 Mg Tablet PO 02/10/25 01:11 QAM PRN anxiety Amlodipine Besylate 2.5 mg 08/14/24 12:45 08/14/24 12:57 Amlodipine 2.5 Mg Tablet PO 08/14/25 12:44 2.5 mg DAILY DAMON Administration Clonidine HCl 0.1 mg 08/14/24 12:31 Clonidine 0.1 Mg Tablet PO 08/14/25 12:30 BID PRN Blood Pressure >180 Diphenhydramine HCl 25 mg 08/14/24 01:15 Diphenhydramine 50 Mg/Ml Vial IV-PUSH 08/14/25 01:14 Q6H PRN itching, pain, nausea, anxiety Diphenhydramine HCl 25 mg 08/14/24 11:27 Diphenhydramine 25 Mg Capsule PO 08/14/25 11:26 BID PRN Allergy Symptoms Gabapentin 600 mg 08/14/24 14:00 08/14/24 13:00 Gabapentin 300 Mg Capsule PO 08/14/25 01:11 600 mg TID DAMON Administration Guaifenesin 1,200 mg 08/14/24 09:00 08/14/24 09:58 Guaifenesin 600 Mg Tab.Er.12h PO 08/14/25 08:59 1,200 mg BID DAMON Administration Guaifenesin 1,200 mg 08/14/24 01:20 08/14/24 09:58 Guaifenesin 600 Mg Tab.Er.12h PO 08/14/25 01:19 Not Given BID DAMON Hydroxyzine Pamoate 25 mg 08/14/24 01:27 Hydroxyzine Pamoate 25 Mg Capsule PO 08/14/25 01:26 BID PRN itching Influenza Virus Vacc Triv Types A&B 0.5 ml 08/15/24 08:00 Flu Vacc Tv (36mos +) Pf 0.5 Ml Syringe 24-25 IM 08/15/24 08:01 .ONCE ONE Levothyroxine Sodium 50 mcg 08/14/24 06:30 08/14/24 05:56 Levothyroxine 50 Mcg Tablet PO 08/14/25 06:29 50 mcg DAILY.0630 DAMON Administration Loratadine 20 mg 08/14/24 12:45 08/14/24 12:57 Loratadine 10 Mg Tablet PO 08/14/25 12:44 Not Given DAILY DAMON Metoprolol Succinate 50 mg 08/14/24 01:15 08/14/24 09:58 Metoprolol Succinate 50 Mg Tab.Er.24h PO 08/14/25 01:14 50 mg DAILY DAMON Administration Montelukast Sodium 10 mg 08/14/24 01:15 08/14/24 01:39 Montelukast 10 Mg Tablet PO 08/14/25 01:14 10 mg HS DAMON Administration Non-Formulary Medication 40 mg 08/14/24 22:00 Febuxostat PO 08/14/25 21:59 HS DAMON Nortriptyline HCl 10 mg 08/14/24 01:15 08/14/24 01:39 Nortriptyline 10 Mg Capsule PO 08/14/25 01:14 10 mg QHS DAMON Administration Pantoprazole Sodium 40 mg 08/14/24 09:00 08/14/24 09:58 Pantoprazole 40 Mg Tablet.Dr PO 08/14/25 08:59 40 mg BID DAMON Administration Promethazine HCl 25 mg 08/14/24 11:27 Promethazine 25 Mg Tablet PO 08/14/25 11:26 Q6HR PRN Nausea Sodium Chloride 0 ml 08/13/24 19:33 Sodium Chloride 0.9 % 10 Ml Syringe IV-PUSH 08/13/25 19:32 PRN PRN Flush Vitamin D 125 mcg 08/15/24 09:00 Cholecalciferol 125 Mcg (5,000 Units) Capsule PO 08/15/25 08:59 DAILY DAMON A&P - Hospitalist Assessment/Plan (1) Acute on chronic hypoxic respiratory failure: Plan . Documented By: Shyam Echevarria MD 08/14/24 1522 Signed By: 08/14/24 1535 [facility]01-04-2025 History and physical note Author Carlo Bills [facility] Note Date/Time August 14, 2024 7: 31am [facility] [address] [place] [address] Hospitalist H&P Signed Patient: Meredith Chaidez MR#: [id number] : 1970 Acct:[id number] Age/Sex: 54 / F Adm Date: 5 Loc: 4 Room: [address] [place] [address] Type: ADM IN Attending Dr: Shyam Echevarria MD Copies to: Shyam Echevarria MD [facility] Carlo Bills, DO~ HPI DATE OF EXAMINATION: 08/14/24 CHIEF COMPLAINT: Shortness of breath HISTORY OF PRESENT ILLNESS: This patient is a 54-year-old female who presented emergency department this evening after similar presentation last evening and AMA discharge. She is againshort of breath with significant wheeze. She is again severely had significant distress with respiratory rate of 36 in the ER and 87% saturation on room air, 91% on 5 L with eventual improvement after high flow nasal cannula provided. Chest x-ray appears unchanged from yesterday's. Labs reveal a unremarkable CBC,mild hyponatremia 135, hypochloremia 97 notably a rise in serum bicarbonate 32.1. Normal LFTs. Patient has a complex allergy and allergy history and has seen immunology here locally in addition to pulmonology and rheumatology. Nebulized breathing treatments with low albuterol were provided again as ipratropium is also reported as allergy/intolerance but further review indicatesthis is a relative contraindication for history of glaucoma. Most recent pulmonology note skin test done at art psychotherapist office was positive forhydrocortisone and methylprednisolone but negative for Decadron and Kenalog. Patient was supposed to have Decadron challenge though this has not been completed yet. Additionally reported allergies to inhaled corticosteroids as well including that of Pulmicort, Advair, Symbicort. She was recommended to continue her antiallergy medication prescribed for seasonal allergies and rhinorrhea and continue antiacid control of GERD precipitating respiratory issues with PPI or [id number] famotidine. Physical Examination: GENERAL APPEARANCE: Alert, up in bed AAOx3 CARDIAC: Normal S1 and S2. No S3, S4 or murmurs. LUNGS: Diffuse wheeze and congestion ABDOMEN: Positive bowel sounds. Soft, nontender. No guarding or signs of an acute abdomen MUSCULOSKELETAL: No joint erythema or tenderness. EXTREMITIES: No clubbing, cyanosis or edema NEUROLOGICAL: No focal deficits SKIN: Skin normal color, texture and turgor with no lesions or eruptions. PSYCHIATRIC: Appropriate mood and affect Assessment and plan: 1. Acute on chronic hypoxic respiratory failure with suspected hypercarbia 2. Acute exacerbation of asthmatic lung disease, reactive airway disease by PFTs 3. Mild hyponatremia 4. Rheumatoid arthritis with overlying osteoarthritis, hypermobility syndrome 5. Glaucoma with history of bilateral stents 6. Obstructive sleep apnea 7. Elevated serum bicarbonate, suspected hypercapnic compensation 8. Hypothyroidism 9. Hepatic steatosis Patient again presents with respiratory complaints and complex pulmonary historyamong other comorbidities necessitating specialty consultations in the past. She did clarify that while not a life-threatening anaphylactic type reaction to Decadron last hospitalization that when trialed on 1 mg and then 2 mg IV push doses she each time had chest tightness, heart racing response which was worse on 2 mg dose. With positive skin testing to other steroids she seems to overallexhibit a class effect allergy profile to glucocorticoids. Inhaled budesonide likely would be poorly tolerated as she did not tolerate Symbicort with this activity ingredient previously either. Continue theophylline. Albuterol nebulizers with scheduled every 6 hours at higher dose 5 mg. Every 3 hours as needed 7.5 mg for breakthrough. Continue home metoprolol 50 mg extended release, increase as warranted given high dose beta agonist. Will consult pulmonology while waiting for bed at [facility]. Glaucoma with history with stents is her contraindication to ipratropium and she also reports intolerance symptomatically with chest pains and tightness similar to other reactions that are not anaphylactic but seemingly immune mediated. Many of the patient's symptomatic meds could theoretically cause some respiratory suppression and avoid supra therapeutic O2 saturation as her bicarbonate and wheeze likely reflect CO2 retention In terms of autoimmune disease she clearly has diffuse systemic illness. In 05/06/2024 outpatient rheumatology progress note is available for review. She has rheumatoid arthritis with polyarthritis, anti-CCP positivity with RF negativity. Limited treatment options. Her minocycline 100 mg daily is off label treatment for this and will be continued. Biologic abatacept is being worked on in the process of grants and prior authorizations due to expense. Control of underlying systemic rheumatic disease may better control her pulmonary inflammation as minimal traditional therapies are viable. If patient is still here on Friday would attempt to obtain records from Dr. Harrison's office from immunology to further clarify. Furthermore reports see a diagnosis of mixed connective tissue disease. This is not mentioned in rheumatology note. Will send anti-U1-ENVIRONMENTAL TECHNOLOGY PROFESSOR antibodies to clarify which I will follow up on. Homogenous DAWOOD positivity 1:640 is noted previously. Additionally the patient exhibits elevated IgG level and strongly positive anti-smooth muscle antibody level of 36. Additionally fatty liver disease with generally normal LFTs is highly suggestive of autoimmune hepatitis. Reportedly to see Dr. Reyes at [facility] for further eval 08/20/2024. To confirm autoimmune hepatitis she would likely need liver biopsy of which she could potentially have here if still waiting for bed on Friday. Certainly less urgent. Review of Systems Review of Systems All other systems reviewed & are negative unless noted below or in HPI [facility] Medical History (Updated 08/14/24 @ 02:16 by Carlo Bills DO) Acute exacerbation of idiopathic pulmonary fibrosis Mild persistent asthma refractory to systemic steroids Pulmonary fibrosis Rheumatoid arteritis Sleep apnea Seasonal allergic rhinitis History of kidney stones DAWOOD positive Asthma with COPD Reactive airway disease Migraine Hypertension Hypothyroid Gastritis GERD (gastroesophageal reflux disease) Chronic pain COPD (chronic obstructive pulmonary disease) Asthma Fibromyalgia Glaucoma Pancreatitis Surgical History History of tonsillectomy and adenoidectomy Hx of eye surgery stents in deb. eyes glaucoma Hx of neck surgery H/O: hysterectomy H/O tubal ligation Hx of cholecystectomy Family History Grandparent Breast cancer Diabetes Father COPD (chronic obstructive pulmonary disease) Hypertension Mother Heart disease Hypertension FH: mental illness mother Bipolar Arthritis Brother AA (alcohol abuse) Drug abuse Sister AA (alcohol abuse) Drug abuse Social History Smoking Status: Former smoker Tobacco Type: cigarettes Substance Use Type: CBD Oil Substance Abuse Comment: CBD gummies Meds Medications and Allergies Allergies adhesive Allergy (Unknown, Verified 08/13/24 19:35) Rash aspirin Allergy (Unknown, Verified 08/13/24 19:35) Hives bisoprolol (From Ziac) Allergy (Unknown, Verified 08/13/24 19:35) Vomiting cefdinir Allergy (Unknown, Verified 08/13/24 19:35) Vomiting erythromycin base Allergy (Unknown, Verified 08/13/24 19:35) Vomiting eszopiclone (Lunesta) Allergy (Unknown, Verified 08/13/24 19:35) Unknown Reaction fluticasone (From Advair Diskus) Allergy (Unknown, Verified 08/13/24 19:35) Hives heparin Allergy (Unknown, Verified 08/13/24 19:35) Swelling hydrochlorothiazide (From Ziac) Allergy (Unknown, Verified 08/13/24 19:35) Vomiting ketorolac (From Toradol) Allergy (Unknown, Verified 08/13/24 19:35) Nausea latanoprost Allergy (Unknown, Verified 08/13/24 19:35) Rash latex Allergy (Unknown, Verified 08/13/24 19:35) Rash medroxyprogesterone (From Depo-Provera) Allergy (Unknown, Verified 08/13/24 19:35) Hives morphine Allergy (Unknown, Verified 08/13/24 19:35) Hives nabumetone (From Relafen) Allergy (Unknown, Verified 08/13/24 19:35) Hives nalbuphine (From Nubain) Allergy (Unknown, Verified 08/13/24 19:35) Hives NSAIDS (Non-Steroidal Anti-Inflamma Allergy (Unknown, Verified 08/13/24 19:35) Nausea prednisone Allergy (Unknown, Verified 08/13/24 19:35) Unknown Reaction pregabalin (From Lyrica) Allergy (Unknown, Verified 08/13/24 19:35) Unknown Reaction quetiapine (From Seroquel) Allergy (Unknown, Verified 08/13/24 19:35) Vomiting rizatriptan (From Maxalt) Allergy (Unknown, Verified 08/13/24 19:35) Hives rofecoxib (From Vioxx) Allergy (Unknown, Verified 08/13/24 19:35) Hives sumatriptan (From Imitrex) Allergy (Unknown, Verified 08/13/24 19:35) Hives tizanidine (From Zanaflex) Allergy (Unknown, Verified 08/13/24 19:35) Unknown Reaction warfarin (From Coumadin) Allergy (Unknown, Verified 08/13/24 19:35) Unknown Reaction acetaminophen (From Percocet) Allergy (Verified 08/13/24 19:35) Unknown Reaction cephalexin (From Keflex) Allergy (Verified 08/13/24 19:35) Unknown Reaction hydrocodone Allergy (Verified 08/13/24 19:35) Unknown Reaction ipratropium Allergy (Verified 08/13/24 19:35) Hives methylprednisolone Allergy (Verified 08/13/24 19:35) Unknown Reaction oxycodone (From Percocet) Allergy (Verified 08/13/24 19:35) Unknown Reaction sulfamethoxazole (From Bactrim) Allergy (Verified 08/13/24 19:35) Unknown Reaction trimethoprim (From Bactrim) Allergy (Verified 08/13/24 19:35) Unknown Reaction codeine Adverse Reaction (Verified 08/13/24 19:35) Unknown Reaction diclofenac (From [facility]) Adverse Reaction (Verified 08/13/24 19:35) Unknown Reaction Home Medications amlodipine 2.5 mg tablet 2.5 mg PO DAILY 04/09/21 [History Confirmed 08/13/24] clonidine HCl 0.1 mg tablet 0.1 mg PO DIRECTED PRN Blood Pressure 04/09/21 [History Confirmed 08/13/24] febuxostat 40 mg tablet 40 mg PO HS 04/09/21 [History Confirmed 08/13/24] levothyroxine 50 mcg tablet 50 mcg PO DAILY 04/09/21 [History Confirmed 08/13/24] montelukast 10 mg tablet 10 mg PO HS 04/09/21 [History Confirmed 08/13/24] pantoprazole 40 mg tablet,delayed release 40 mg PO BID 04/09/21 [History Confirmed 08/13/24] cholecalciferol (vitamin D3) 125 mcg (5,000 unit) tablet 125 mcg PO DAILY 06/02/23 [History Confirmed 08/13/24] diphenhydramine HCl 25 mg capsule (Benadryl) 25 mg PO BID PRN Allergy Symptoms 06/02/23 [History Confirmed 08/13/24] ondansetron 4 mg disintegrating tablet 4 mg PO TID PRN nausea and vomiting 06/02/23 [History Confirmed 08/13/24] promethazine 25 mg tablet 25 mg PO Q6HR PRN Nausea 06/02/23 [History Confirmed 08/13/24] alprazolam 1 mg tablet 1 mg PO HS PRN sleep 01/27/24 [History Confirmed 08/13/24] delta 8 1 tab PO DIRECTED PRN pain 01/27/24 [History Confirmed 08/13/24] metoprolol succinate 50 mg tablet,extended release 24 hr 50 mg PO DAILY 01/27/24[History Confirmed 08/13/24] epinephrine 0.3 mg/0.3 mL injection, auto-injector 0.3 ml subcut .prn 02/25/24 [History Confirmed 08/13/24] albuterol sulfate 2.5 mg/3 mL (0.083 %) solution for nebulization 2.5 mg (3 mL) inhalation Q4-6H PRN Shortness Of Breath Or Wheezing 30 days #360 mL 04/22/24 [Rx Confirmed 08/13/24] CPAP (Continuous Positive Airway Pressure) 06/01/24 [History Confirmed 08/13/24] cetirizine 10 mg tablet 20 mg PO DAILY 06/01/24 [History Confirmed 08/13/24] gabapentin 300 mg capsule 600 mg PO TID PRN Pain 06/01/24 [History Confirmed 08/13/24] soy isoflavone-black cohosh root-magnolia bark 155 mg capsule (Estroven) 1 cap PO DAILY 06/01/24 [History Confirmed 08/13/24] theophylline 300 mg tablet,extended release,12 hr 300 mg PO Q12HR 06/01/24 [History Confirmed 08/13/24] thiamine HCl (vitamin B1) 100 mg tablet 100 mg PO DAILY 06/01/24 [History Confirmed 08/13/24] Ventolin HFA 90 mcg/actuation aerosol inhaler (albuterol sulfate) 2 inh inhalation Q4H PRN Shortness Of Breath 30 days #18 grams 06/22/24 [Rx Confirmed 08/13/24] albuterol sulfate 90 mcg/actuation aerosol inhaler 2 puff inhalation Q4H PRN Shortness Of Breath 30 days #8.5 grams 06/22/24 [Rx Confirmed 08/13/24] alprazolam 0.5 mg tablet 0.5 mg PO QAM PRN anxiety 08/13/24 [History Confirmed 08/13/24] hydroxyzine HCl 25 mg tablet 25 mg PO BID PRN itching 08/13/24 [History Confirmed 08/13/24] minocycline 100 mg capsule 100 mg PO QAM 08/13/24 [History Confirmed 08/13/24] nortriptyline 10 mg capsule 10 mg PO QHS 08/13/24 [History Confirmed 08/13/24] Exam Physical Exam Vital Signs: Temp Pulse Resp BP Pulse Ox O2 Del Method O2 Flow Rate 98.2 F 88 20 136/86 96 High Flow 35 08/14/24 00:30 08/14/24 00:30 08/14/24 00:30 08/14/24 00:30 08/14/24 00:30 08/14/24 00:30 08/14/24 00:30 FiO2 55 08/14/24 00:30 Results - Hospitalist H&P Lab Results Labs: Laboratory Last Values Corrected WBC 9.4 X10E3/uL (3.8-11.6) 08/13/24 20:06 Uncorrected WBC Count 9.4 x10E3/uL (3.8-11.6) 08/13/24 20:06 RBC 5.00 x10E6/uL (3.60-5.00) 08/13/24 20:06 Hgb 14.9 g/dL (11.8-15.4) 08/13/24 20:06 Hct 44.7 % (34.0-46.4) 08/13/24 20:06 MCV 89.4 fl (80-100) 08/13/24 20:06 MCH 29.8 pg (24.7-34.3) 08/13/24 20: MCHC 33.3 g/dL (32.0-35.0) 08/13/24 20:06 RDW 13.4 % (11.9-15.3) 08/13/24 20:06 Plt Count 345 x10E3/uL (150-450) 08/13/24 20:06 MPV 8.2 fl (6.3-10.7) 08/13/24 20:06 Neut % (Auto) 77.4 % (.) 08/13/24 20: Lymph % (Auto) 14.4 % (.) 08/13/24 20:06 [place] % (Auto) 5.1 % (.) 08/13/24 20:06 Eos % (Auto) 2.5 % (.) 08/13/24 20:06 Baso % (Auto) 0.6 % (.) 08/13/24 20:06 Nucleat RBC Rel Count 0.1 /100 WBC (0-0.5) 08/13/24 20:06 Neut # (Auto) 7.2 x10E3/uL (1.8-7.7) 08/13/24 20:06 Lymph # (Auto) 1.3 x10E3/uL (1.00-4.8) 08/13/24 20:06 [place] # (Auto) 0.5 x10E3/uL (0.0-0.8) 08/13/24 20:06 Eos # (Auto) 0.2 x10E3/uL (0.0-0.45) 08/13/24 20:06 Baso # (Auto) 0.1 x10E3/uL (0.0-0.2) 08/13/24 20:06 Monocyte Dist Width 17.20 % (0.00-20.00) 08/13/24 20:06 PHA Creatinine Clear 70.03 08/13/24 20:06 Sodium 135 mmol/L (136-145) L 08/13/24 20:06 Potassium 4.3 mmol/L (3.5-5.1) 08/13/24 20:06 Chloride 97 mmol/L (98-107) L 08/13/24 20:06 Carbon Dioxide 32.1 mmol/L (21.0-31.0) H 08/13/24 20:06 Anion Gap 10.2 mEq/L (6.0-15.0) 08/13/24 20:06 BUN 12 mg/dL (7-25) 08/13/24 20:06 Creatinine 0.96 mg/dL (0.60-1.20) 08/13/24 20:06 Est GFR (CKD-EPI) > 60.0 mL/Min 08/13/24 20:06 Glucose 107 mg/dL (70-100) H 08/13/24 20:06 Calcium 9.9 mg/dL (8.6-10.3) 08/13/24 20:06 Magnesium 1.9 mg/dL (1.9-2.7) 08/13/24 20:06 Total Bilirubin 0.5 mg/dl (0.3-1.0) 08/13/24 20:06 AST 20 U/L (13-39) 08/13/24 20:06 ALT 16 U/L (7-52) 08/13/24 20:06 Alkaline Phosphatase 95 U/L (34-104) 08/13/24 20:06 Total Creatine Kinase 182 U/L (30-223) 08/13/24 20:06 Troponin I High Sens 7.7 pg/mL (0.0-15.0) 08/13/24 20:06 B-Natriuretic Peptide 16.0 pg/mL (5-100) 08/13/24 20:06 Total Protein 8.8 gm/dL (6.4-8.9) 08/13/24 20:06 Albumin 4.5 gm/dL (3.5-5.7) 08/13/24 20:06 Globulin 4.3 gm/dL 08/13/24 20:06 Albumin/Globulin Ratio 1.0 08/13/24 20:06 COVID-19 Clin Com Not detected (Not Detecte) 08/13/24 19:46 Microbiology Results Micro: Microbiology - Results from entire visit 08/13/24 19:46 Nasopharyngeal Respiratory Panel (PCR) - Final Assessment & Plan Assessment/Plan (1) Acute on chronic hypoxic respiratory failure: Plan . IP vs OBS Justification Based on differential dx, clinical care plan, and risk of adverse events, if untreated, in my clinical judgement this patient requires an acute care setting as: INPATIENT because of an expectation of an over 2 midnight stay. Estimated length of stay (# of days): 3 Documented By: Carlo Bills DO 08/14/24 02 14 Signed By: <Electronically signed by Carlo Bills DO> 08/14/24 0731 [facility] Work Phone: 1(679) 302-114701-04-2025 [place] [address] Hospitalist H&P Signed Patient: Meredith Chaidez MR#: [id number] : 1970 Acct:[id number] Age/Sex: 54 / F Adm Date: 5 Loc: Room: [address] [place] [address] Type: ADM IN Attending Dr: Shyam Echevarria MD Copies to: Shyam Echevarria MD [facility] Carlo Bills DO~ HPI DATE OF EXAMINATION: 08/14/24 CHIEF COMPLAINT: Shortness of breath HISTORY OF PRESENT ILLNESS: This patient is a 54-year-old female who presented emergency department this evening after similar presentation last evening and AMA discharge. She is againshort of breath with significant wheeze. She is again severely had significant distress with respiratory rate of 36 in the ER and 87% saturation on room air, 91% on 5 L with eventual improvement after high flow nasal cannula provided. Chest x-ray appears unchanged from yesterday's. Labs reveal a unremarkable CBC,mild hyponatremia 135, hypochloremia 97 notably a rise in serum bicarbonate 32.1. Normal LFTs. Patient has a complex allergy and allergy history and has seen immunology here locally in addition to pulmonology and rheumatology. Nebulized breathing treatments with low albuterol were provided again as ipratropium is also reported as allergy/intolerance but further review indicatesthis is a relative contraindication for history of glaucoma. Most recent pulmonology note skin test done at art psychotherapist office was positive forhydrocortisone and methylprednisolone but negative for Decadron and Kenalog. Patient was supposed to have Decadron challenge though this has not been completed yet. Additionally reported allergies to inhaled corticosteroids as well including that of Pulmicort, Advair, Symbicort. She was recommended to continue her antiallergy medication prescribed for seasonal allergies and rhinorrhea and continue antiacid control of GERD precipitating respiratory issues with PPI or [id number] famotidine. Physical Examination: GENERAL APPEARANCE: Alert, up in bed AAOx3 CARDIAC: Normal S1 and S2. No S3, S4 or murmurs. LUNGS: Diffuse wheeze and congestion ABDOMEN: Positive bowel sounds. Soft, nontender. No guarding or signs of an acute abdomen MUSCULOSKELETAL: No joint erythema or tenderness. EXTREMITIES: No clubbing, cyanosis or edema NEUROLOGICAL: No focal deficits SKIN: Skin normal color, texture and turgor with no lesions or eruptions. PSYCHIATRIC: Appropriate mood and affect Assessment and plan: 1. Acute on chronic hypoxic respiratory failure with suspected hypercarbia 2. Acute exacerbation of asthmatic lung disease, reactive airway disease by PFTs 3. Mild hyponatremia 4. Rheumatoid arthritis with overlying osteoarthritis, hypermobility syndrome 5. Glaucoma with history of bilateral stents 6. Obstructive sleep apnea 7. Elevated serum bicarbonate, suspected hypercapnic compensation 8. Hypothyroidism 9. Hepatic steatosis Patient again presents with respiratory complaints and complex pulmonary historyamong other comorbidities necessitating specialty consultations in the past. She did clarify that while not a life-threatening anaphylactic type reaction to Decadron last hospitalization that when trialed on 1 mg and then 2 mg IV push doses she each time had chest tightness, heart racing response which was worse on 2 mg dose. With positive skin testing to other steroids she seems to overallexhibit a class effect allergy profile to glucocorticoids. Inhaled budesonide likely would be poorly tolerated as she did not tolerate Symbicort with this activity ingredient previously either. Continue theophylline. Albuterolnebulizers with scheduled every 6 hours at higher dose 5 mg. Every 3 hours as needed 7.5 mg for breakthrough. Continue home metoprolol 50 mg extended release, increase as warranted given high dose beta agonist. Will consult pulmonology while waiting for bed at [facility]. Glaucoma with history with stentsis her contraindication to ipratropium and she also reports intolerance symptomatically with chest pains and tightness similar to other reactions that are not anaphylactic but seemingly immune mediated. Many of the patient's symptomatic meds could theoretically cause some respiratory suppression and avoid supra therapeutic O2 saturation as her bicarbonate and wheeze likely reflect CO2 retention In terms of autoimmune disease she clearly has diffuse systemic illness. In 05/06/2024 outpatient rheumatology progress note is available for review. She has rheumatoid arthritis with polyarthritis,anti-CCP positivity with RF negativity. Limited treatment options. Her minocycline 100 mg daily is off label treatment for this and will be continued. Biologic abatacept is being worked on in the process of grants and prior authorizations due to expense. Control of underlying systemic rheumatic disease may better control her pulmonary inflammation as minimal traditional therapies are viable. If patient is still here on Friday would attempt to obtain records from Dr. Harrison's office from immunology to further clarify. Furthermore reports see a diagnosis of mixed connective tissue disease. This is not mentioned in rheumatology note. Will send anti-U1-ENVIRONMENTAL TECHNOLOGY PROFESSOR antibodies to clarify which I will follow up on. Homogenous DAWOOD positivity 1:640 is noted previously. Additionally the patient exhibits elevated IgGlevel and strongly positive anti-smooth muscle antibody level of 36. Additionally fatty liver disease with generally normal LFTs is highly suggestive of autoimmune hepatitis. Reportedly to see Dr. Reyes at [facility] for further eval 08/20/2024. To confirm autoimmune hepatitis she would likely need liver biopsy of which she could potentially have here if still waiting for bed on Friday. Certainly less urgent. Review of Systems Review of Systems All other systems reviewed & are negative unless noted below or in HPI [facility] Medical History (Updated 08/14/24 @ 02:16 by Carlo Bills DO) Acute exacerbation of idiopathic pulmonary fibrosis Mild persistent asthma refractory to systemic steroids Pulmonary fibrosis Rheumatoid arteritis Sleep apnea Seasonal allergic rhinitis History of kidney stones DAWOOD positive Asthma with COPD Reactive airway disease Migraine Hypertension Hypothyroid Gastritis GERD (gastroesophageal reflux disease) Chronic pain COPD (chronic obstructive pulmonary disease) Asthma Fibromyalgia Glaucoma Pancreatitis Surgical History History of tonsillectomy and adenoidectomy Hx of eye surgery stents in deb. eyes glaucoma Hx of neck surgery H/O: hysterectomy H/O tubal ligation Hx of cholecystectomy Family History Grandparent Breast cancer Diabetes Father COPD (chronic obstructive pulmonary disease) Hypertension Mother Heart disease Hypertension FH: mental illness mother Bipolar Arthritis Brother AA (alcohol abuse) Drug abuse Sister AA (alcohol abuse) Drug abuse Social History Smoking Status: Former smoker Tobacco Type: cigarettes Substance Use Type: CBD Oil Substance Abuse Comment: CBD gummies Meds Medications and Allergies Allergies adhesive Allergy (Unknown, Verified 08/13/24 19:35) Rash aspirin Allergy (Unknown, Verified 08/13/24 19:35) Hives bisoprolol (From Ziac) Allergy (Unknown, Verified 08/13/24 19:35) Vomiting cefdinir Allergy (Unknown, Verified 08/13/24 19:35) Vomiting erythromycin base Allergy (Unknown, Verified 08/13/24 19:35) Vomiting eszopiclone (Lunesta) Allergy (Unknown, Verified 08/13/24 19:35) Unknown Reaction fluticasone (From Advair Diskus) Allergy (Unknown, Verified 08/13/24 19:35) Hives heparin Allergy (Unknown, Verified 08/13/24 19:35) Swelling hydrochlorothiazide (From Ziac) Allergy (Unknown, Verified 08/13/24 19:35) Vomiting ketorolac (From Toradol) Allergy (Unknown, Verified 08/13/24 19:35) Nausea latanoprost Allergy (Unknown, Verified 08/13/24 19:35) Rash latex Allergy (Unknown, Verified 08/13/24 19:35) Rash medroxyprogesterone (From Depo-Provera) Allergy (Unknown, Verified 08/13/24 19:35) Hives morphine Allergy (Unknown, Verified 08/13/24 19:35) Hives nabumetone (From Relafen) Allergy (Unknown, Verified 08/13/24 19:35) Hives nalbuphine (From Nubain) Allergy (Unknown, Verified 08/13/24 19:35) Hives NSAIDS (Non-Steroidal Anti-Inflamma Allergy (Unknown, Verified 08/13/24 19:35) Nausea prednisone Allergy (Unknown, Verified 08/13/24 19:35) Unknown Reaction pregabalin (From Lyrica) Allergy (Unknown, Verified 08/13/24 19:35) Unknown Reaction quetiapine (From Seroquel) Allergy (Unknown, Verified 08/13/24 19:35) Vomiting rizatriptan (From Maxalt) Allergy (Unknown, Verified 08/13/24 19:35) Hives rofecoxib (From Vioxx) Allergy (Unknown, Verified 08/13/24 19:35) Hives sumatriptan (From Imitrex) Allergy (Unknown, Verified 08/13/24 19:35) Hives tizanidine (From Zanaflex) Allergy (Unknown, Verified 08/13/24 19:35) Unknown Reaction warfarin (From Coumadin) Allergy (Unknown, Verified 08/13/24 19:35) Unknown Reaction acetaminophen (From Percocet) Allergy (Verified 08/13/24 19:35) Unknown Reaction cephalexin (From Keflex) Allergy (Verified 08/13/24 19:35) Unknown Reaction hydrocodone Allergy (Verified 08/13/24 19:35) Unknown Reaction ipratropium Allergy (Verified 08/13/24 19:35) Hives methylprednisolone Allergy (Verified 08/13/24 19:35) Unknown Reaction oxycodone (From Percocet) Allergy (Verified 08/13/24 19:35) Unknown Reaction sulfamethoxazole (From Bactrim) Allergy (Verified 08/13/24 19:35) Unknown Reaction trimethoprim (From Bactrim) Allergy (Verified 08/13/24 19:35) Unknown Reaction codeine Adverse Reaction (Verified 08/13/24 19:35) Unknown Reaction diclofenac (From Arthrotec) Adverse Reaction (Verified 08/13/24 19:35) Unknown Reaction Home Medications amlodipine 2.5 mg tablet 2.5 mg PO DAILY 04/09/21 [History Confirmed 08/13/24] clonidine HCl 0.1 mg tablet 0.1 mg PO DIRECTED PRN Blood Pressure 04/09/21 [History Confirmed 08/13/24] febuxostat 40 mg tablet 40 mg PO HS 04/09/21 [History Confirmed 08/13/24] levothyroxine 50 mcg tablet 50 mcg PO DAILY 04/09/21 [History Confirmed 08/13/24] montelukast 10 mg tablet 10 mg PO HS 04/09/21 [History Confirmed 08/13/24] pantoprazole 40 mg tablet,delayed release 40 mg PO BID 04/09/21 [History Confirmed 08/13/24] cholecalciferol (vitamin D3) 125 mcg (5,000 unit) tablet 125 mcg PO DAILY 06/02/23 [History Confirmed 08/13/24] diphenhydramine HCl 25 mg capsule (Benadryl) 25 mg PO BID PRN Allergy Symptoms 06/02/23 [History Confirmed 08/13/24] ondansetron 4 mg disintegrating tablet 4 mg PO TID PRN nausea and vomiting 06/02/23 [History Confirmed 08/13/24] promethazine 25 mg tablet 25 mg PO Q6HR PRN Nausea 06/02/23 [History Confirmed 08/13/24] alprazolam 1 mg tablet 1 mg PO HS PRN sleep 01/27/24 [History Confirmed 08/13/24] delta 8 1 tab PO DIRECTED PRN pain 01/27/24 [History Confirmed 08/13/24] metoprolol succinate 50 mg tablet,extended release 24 hr 50 mg PO DAILY 01/27/24[History Confirmed 08/13/24] epinephrine 0.3 mg/0.3 mL injection, auto-injector 0.3 ml subcut .prn 02/25/24 [History Confirmed 08/13/24] albuterol sulfate 2.5 mg/3 mL (0.083 %) solution for nebulization 2.5 mg (3 mL) inhalation Q4-6H PRN Shortness Of Breath Or Wheezing 30 days #360 mL 04/22/24 [Rx Confirmed 08/13/24] CPAP (Continuous Positive Airway Pressure) 06/01/24 [History Confirmed 08/13/24] cetirizine 10 mg tablet 20 mg PO DAILY 06/01/24 [History Confirmed 08/13/24] gabapentin 300 mg capsule 600 mg PO TID PRN Pain 06/01/24 [History Confirmed 08/13/24] soy isoflavone-black cohosh root-magnolia bark 155 mg capsule (Estroven) 1 cap PO DAILY 06/01/24 [History Confirmed 08/13/24] theophylline 300 mg tablet,extended release,12 hr 300 mg PO Q12HR 06/01/24 [History Confirmed 08/13/24] thiamine HCl (vitamin B1) 100 mg tablet 100 mg PO DAILY 06/01/24 [History Confirmed 08/13/24] Ventolin HFA 90 mcg/actuation aerosol inhaler (albuterol sulfate) 2 inh inhalation Q4H PRN Shortness Of Breath 30 days #18 grams 06/22/24 [Rx Confirmed 08/13/24] albuterol sulfate 90 mcg/actuation aerosol inhaler 2 puff inhalation Q4H PRN Shortness Of Breath 30days #8.5 grams 06/22/24 [Rx Confirmed 08/13/24] alprazolam 0.5 mg tablet 0.5 mg PO QAM PRN anxiety 08/13/24 [History Confirmed 08/13/24] hydroxyzine HCl 25 mg tablet 25 mg PO BID PRN itching 08/13/24 [History Confirmed 08/13/24] minocycline 100 mg capsule 100 mg PO QAM 08/13/24 [History Confirmed 08/13/24] nortriptyline 10 mg capsule 10 mg PO QHS 08/13/24 [History Confirmed 08/13/24] Exam Physical Exam Vital Signs: Temp Pulse Resp BP Pulse Ox O2 Del Method O2 Flow Rate 98.2 F 88 20 136/86 96 High Flow 35 08/14/24 00:30 08/14/24 00:30 08/14/24 00:30 08/14/24 00:30 08/14/24 00:30 08/14/24 00:30 08/14/24 00:30 FiO2 55 08/14/24 00:30 Results - Hospitalist H&P Lab Results Labs: Laboratory Last Values Corrected WBC 9.4 X10E3/uL (3.8-11.6) 08/13/24 20:06 Uncorrected WBC Count 9.4 x10E3/uL (3.8-11.6) 08/13/24 20:06 RBC 5.00 x10E6/uL (3.60-5.00) 08/13/24 20:06 Hgb 14.9 g/dL (11.8-15.4) 08/13/24 20:06 Hct 44.7 % (34.0-46.4) 08/13/24 20:06 MCV 89.4 fl (80-100) 08/13/24 20:06 MCH 29.8 pg (24.7-34.3) 08/13/24 20:06 MCHC 33.3 g/dL (32.0-35.0) 08/13/24 20:06 RDW 13.4 % (11.9-15.3) 08/13/24 20:06 Plt Count 345 x10E3/uL (150-450) 08/13/24 20:06 MPV 8.2 fl (6.3-10.7) 08/13/24 20:06 Neut % (Auto) 77.4 % (.) 08/13/24 20:06 Lymph % (Auto) 14.4 % (.) 08/13/24 20:06 [place] % (Auto) 5.1 % (.) 08/13/24 20:06 Eos % (Auto) 2.5 % (.) 08/13/24 20:06 Baso % (Auto) 0.6 % (.) 08/13/24 20:06 Nucleat RBC Rel Count 0.1 /100 WBC (0-0.5) 08/13/24 20:06 Neut # (Auto) 7.2 x10E3/uL (1.8-7.7) 08/13/24 20:06 Lymph # (Auto) 1.3 x10E3/uL (1.00-4.8) 08/13/24 20:06 [place] # (Auto) 0.5 x10E3/uL (0.0-0.8) 08/13/24 20:06 Eos # (Auto) 0.2 x10E3/uL (0.0-0.45) 08/13/24 20:06 Baso # (Auto) 0.1 x10E3/uL (0.0-0.2) 08/13/24 20:06 Monocyte Dist Width 17.20 % (0.00-20.00) 08/13/24 20:06 PHA Creatinine Clear 70.03 08/13/24 20:06 Sodium 135 mmol/L (136-145) L 08/13/24 20:06 Potassium 4.3 mmol/L (3.5-5.1) 08/13/24 20:06 Chloride 97 mmol/L (98-107) L 08/13/24 20:06 Carbon Dioxide 32.1 mmol/L (21.0-31.0) H 08/13/24 20:06 Anion Gap 10.2 mEq/L (6.0-15.0) 08/13/24 20:06 BUN 12 mg/dL (7-25) 08/13/24 20:06 Creatinine 0.96 mg/dL (0.60-1.20) 08/13/24 20:06 Est GFR (CKD-EPI) > 60.0 mL/Min 08/13/24 20:06 Glucose 107 mg/dL (70-100) H 08/13/24 20:06 Calcium 9.9 mg/dL (8.6-10.3) 08/13/24 20:06 Magnesium 1.9 mg/dL (1.9-2.7) 08/13/24 20:06 Total Bilirubin 0.5 mg/dl (0.3-1.0) 08/13/24 20:06 AST 20 U/L (13-39) 08/13/24 20:06 ALT 16 U/L (7-52) 08/13/24 20:06 Alkaline Phosphatase 95 U/L (34-104) 08/13/24 20:06 Total Creatine Kinase 182 U/L (30-223) 08/13/24 20:06 Troponin I High Sens 7.7 pg/mL (0.0-15.0) 08/13/24 20:06 B-Natriuretic Peptide 16.0 pg/mL (5-100) 08/13/24 20:06 Total Protein 8.8 gm/dL (6.4-8.9) 08/13/24 20:06 Albumin 4.5 gm/dL (3.5-5.7) 08/13/24 20:06 Globulin 4.3 gm/dL 08/13/24 20:06 Albumin/Globulin Ratio 1.0 08/13/24 20:06 COVID-19 Clin Com Not detected (Not Detecte) 08/13/24 19:46 Microbiology Results Micro: Microbiology - Results from entire visit 08/13/24 19:46 Nasopharyngeal Respiratory Panel (PCR) - Final Assessment & Plan Assessment/Plan (1) Acute on chronic hypoxic respiratory failure: Plan . IP vs OBS Justification Based on differential dx, clinical care plan, and risk of adverse events, if untreated, in my clinical judgement this patient requires an acute care setting as: INPATIENT because of an expectation ofan over 2 midnight stay. Estimated length of stay (# of days): 3 Documented By: Carlo Bills DO 08/14/24 02 14 Signed By: 08/14/24 0731 [facility]01-03-[address] [address] Event Note Signed Patient: Meredith Chaidez MR#: [id number] : 1970 Acct:[id number] Age/Sex: 54 / F Adm Date: 5 Loc: Room: [address] [place] [address] Type: ADM IN Attending Dr: Keith Forrester MD Copies to: Keith Forrester MD [facility] Carlo Bills DO~ Status Event Note Event Note DATE OF EVENT: 08/13/24 EVENT DETAILS: It is reported to me that this patient is leaving AGAINST MEDICAL ADVICE in the ER. I had accepted this patient earlier this past evening after she had been appropriately accepted for higher level tertiary care. This patient needs to beappropriately managed by the staff in the ER who is currently providing the immediate medical care at the bedside. I have canceled discharge order and willrelay this to the daytime team. If this patient is does not leave AMA and agrees to admission here while waiting for bed as initially intended, a new admission process will need to be performed with physicianto physician communication daytime ER physician to daytime hospitalist. Continued medical management of this patient while residing in the ER will need to be administeredand managed by ER staff. TIME W/PATIENT (# MINS): 0 Documented By: Carlo Bills DO 08/13/24 08 03 Signed By: 08/13/24 0810 [facility]12-18-2024 Telephone encounter Note* Telephone Encounter - Austin Gordillo MD - 07/28/2024 12:26 PM EST I refilled patient's theophylline for 6 months, without refills. [facility] [place] [address] [address] [facility] - [phone] Patient would need to make follow up appointment with me or an asthma OMER for further refills She will also need to see allergy as recommended while she was admitted Austin Gordillo MD [facility]12-18-2024 Miscellaneous Notes* Telephone Encounter - Austin Gordillo MD - 07/28/2024 12:26 PM EST I refilled patient's theophylline for 6 months, without refills. [facility] [place] [address] [address] [facility] - [phone] Patient would need to make follow up appointment with me or an asthma OMER for further refills She will also need to see allergy as recommended while she was admitted Austin Gordillo MD [facility] Telephone encounter Note * Telephone Encounter - Lb Joseph PA-C - 07/28/2024 10:23 AM EST Refusing refill, due to I work inpatient pulmonary medicine only, and I do not follow the patients longitudinally in the outpatient [facility]12-18-2024 Miscellaneous Notes* Telephone Encounter - Lb Joseph PA-C - 07/28/2024 10:23 AM EST Refusing refill, due to I work inpatient pulmonary medicine only, and I do not follow the patients longitudinally in the outpatient [facility]24 [facility]12-14-2024 [facility]12-14-2024 NoteHNO ID: [id number] Author: NOTE, INTERFACE, ? Service: ? Author Type: ? Type: Progress Notes Filed: 07/29/2024 15:59 Note Text: Epic Scheduled Downtime: 07/24/2024 1:00:00 AM to 07/24/2024 2:52:17 [facility]12-13-2024 [id number] (AGENT OF COVID-19) RNA: Not detected INFLUENZA A RNA: Not detected INFLUENZA B RNA: Not detected RESPIRATORY SYNCYTIAL VIRUS (RSV) RNA: Not detectedBarney Children'S Medical CenterComment on above:Performed By: #### [id number]- [id number], [id number] ####[facility] LABCLIA [id number] JOSE JUAN BURTON [id number] [id number] [facility]12-10-2024 Evaluation note* Diagnosis Onset Date Resolution Status Admit Date Acute exacerbation of idiopa thic pulmonary fibrosis inactive July 7:01pm Mild persistent asthma refractory to systemic steroids inactive July 20, 2024 7:01pm Allergy to methylprednisolone acute August 13, 2024 3:38am Asthma exacerbation acute Janua ry 2024 3:38am Pulmonary fibrosis acute Auguar y 2024 10:07pm Acute on chronic hypoxic respiratory failure resolved August 13, 2024 10:07pm Acute respiratory distress resolved August 13, 2024 10:07pm Hypoxia resolved August 13 10:07pm Reactive airway disease resolved J anuary 2024 10:07pm [facility] Work Phone: 1(828) 620-529912-10-2024 Evaluation note* Diagnosis Onset Date Resolution Status Admit Date Acute exacerbation of idiopa thic pulmonary fibrosis inactive July 7:01pm Mild persistent asthma refractory to systemic steroids inactive July 20, 2024 7:01pm Allergy to methylprednisolone acute August 13, 2024 3:38am Asthma exacerbation acute Janua ry 2024 3:38am Pulmonary fibrosis acute Januar y 2024 10:07pm Acute on chronic hypoxic respiratory failure resolved August 13, 2024 10:07pm Acute respiratory distress resolved August 13, 2024 10:07pm Hypoxia resolved August 13 025 10:07pm Reactive airway disease resolved J anuary 2024 10:07pm Acute hypercapnic respirator y failure acute September 01 4:37am Acute on chronic respiratory failure acute September 01 4:37am Allergy to methylprednisolone acute September 01, 2024 4:37am Asthma exacerbation acute Janua ry 2024 4:37am [facility] Work Phone: 1(926) 604-659311-25-2024 History of Present illness Narrative* Joe Valderrama MD - 07/05/2024 2:40 PM EST Images from the original note were not included. CHIEF COMPLAINT REASON FOR VISIT: neuropathy, back pain HPI: Meredith Chaidez is a 53 y.o. female who presents for a follow up. She states the burning in the feet has gotten worse. She states she has had increase in twitching and spasms in her legs. She is having a worse time swallowing than before. She states her right ulnar nerve pain is worse. She states she is supposed to see ENT. She states [facility] States she has had a cough for 3 months and trouble breathing. She is wondering if she needs surgery on her back. She is concered with her lungs. She states she does not want to do a stimulator. She states she has had increase in back pain and weakness in her legs. She states she is losing sensation in her legs. Denies any other concerns. CURRENT MEDICATIONS: ALLERGIES/DISCONTINUE MEDICATIONS Current Outpatient Medications Medication Instructions albuterol HFA 90 mcg/act inhaler ALPRAZolam (Xanax) 0.5 MG tablet TAKE 1 TABLET BY MOUTH EVERY DAY NEEDED FOR 30 DAYS ALPRAZolam (Xanax) 1 MG tablet TAKE 1 TABLET BY MOUTH ONCE EVERY NIGHT DIRECTED amLODIPine (NORVASC) 2.5 mg, Oral, Daily Cetirizine HCl (ZyrTEC ALLERGY) 10 MG capsule ZyrTEC cloNIDine (CATAPRES) 0.1 mg, Oral, 2 times daily dexAMETHasone (DECADRON) 4 mg, Oral, 2 times daily with meals, Do not ingest bring to office for allergy testing diphenhydrAMINE (BENADryl) 25 MG tablet TAKE 1 TABLET BY MOUTH THREE TIMES A DAY WITH GABAPENTIN ASNEEDED febuxostat (ULORIC) 40 mg, Oral, Daily gabapentin (Neurontin) 300 MG capsule TAKE 2 CAPSULES BY MOUTH 3 TIMES A DAY NEEDED Oral for 30 Days hydrOXYzine HCl (ATARAX) 50 mg, Oral, Every 6 hours PRN ipratropium-albuterol (Duo-Neb) 0.5-2.5 mg/3 mL nebulizer solution levothyroxine (Synthroid, Levoxyl) 50 MCG tablet Every 24 hours metoprolol succinate XL (KAPSPARGO) 50 mg, Oral, Daily Misc Natural Products (ESTROVEN ENERGY PO) Oral montelukast (Singulair) 10 MG tablet Oral for 90 Days mupirocin (Bactroban) 2 % ointment apply to affected area three times a day if needed pantoprazole (PROTONIX) 40 mg, Oral, 2 times daily promethazine (PHENERGAN) 25 mg, Oral, Every 6 hours PRN theophylline ER (Jen-Dur) 300 MG 12 hr tablet Oral for 90 Days thiamine (VITAMIN B-1) 100 mg, Oral, Daily Allergies Allergen Reactions Fluticasone Anaphylaxis Gluten Meal Shortness of breath Lactose Shortness of breath Other Shortness of breath Other Reaction(s): Intolerance Prednisone Shortness of breath Other Reaction(s): Itching, high heart rate, migrai Salmeterol Anaphylaxis Acetaminophen Other Reaction(s): Unknown Reaction Aspartame Itching Aspirin Other Reaction(s): Hives stomach pain, vomiting Bisoprolol GI intolerance Cefdinir Other Reaction(s): Vomiting Codeine Other Reaction(s): Hives Diclofenac Other Reaction(s): hives, stomach pain Diclofenac-Misoprostol Erythromycin Erythromycin Base Other Reaction(s): hives projectile vomiting Eszopiclone Other Reaction(s): Unknown Reaction Fluticasone-Salmeterol Gabapentin Hives Heparin Last time she got injected she had a ball in her gut Hydrochlorothiazide Other Reaction(s): Vomiting Hydrocodone Other Reaction(s): Unknown Reaction Hydrocodone-Acetaminophen Ibuprofen Other Reaction(s): Hives Ketorolac GI intolerance Ketorolac Tromethamine Other Reaction(s): hives,headache Latanoprost Other Reaction(s): Rash Latex Medroxyprogesterone Other Reaction(s): Hives Methylprednisolone Other Reaction(s): hives, anger Misoprostol Other Reaction(s): hives, stomach pain Morphine Hives Nabumetone Other Reaction(s): hives Nalbuphine Other Reaction(s): hives, headache Oxycodone Other Reaction(s): Unknown Reaction Pregabalin Other Reaction(s): Unknown Reaction Quetiapine GI intolerance Rofecoxib Other Reaction(s): hives, stomach pain Stevioside Other Reaction(s): Intolerance Sulfamethoxazole Other Reaction(s): Unknown Reaction Sulfamethoxazole-Trimethoprim Angioedema Sumatriptan Other Reaction(s): Chest Pain, Chest Pain, left arm pain Tizanidine Other Reaction(s): Unknown Reaction Tizanidine Hcl Other Reaction(s): Paresthesia Trazodone Other Reaction(s): Swelling-lips,tongue,face hives Trimethoprim Other Reaction(s): Unknown Reaction Warfarin Other Reaction(s): Unknown Reaction Nsaids GI intolerance, Hives and Nausea And Vomiting Other Reaction(s): hives Other Reaction(s): Nausea Wound Dressing Adhesive Rash Medications Discontinued During This Encounter Medication Reason ziprasidone (Geodon) 20 MG capsule Therapy completed magnesium oxide (Mag-Ox) 400 mg tablet Therapy completed cholecalciferol (Vitamin D-3) 50 MCG (1999) capsule Therapy completed biotin 10 MG capsule Therapy completed baclofen (Lioresal) 10 MG tablet Therapy completed cyclobenzaprine (Flexeril) 10 MG tablet Therapy completed ondansetron ODT (Zofran-ODT) 8 MG disintegrating tablet Therapy completed spironolactone (Aldactone) 50 MG tablet Therapy completed PAST MEDICAL HISTORY: SURGICAL/SOCIAL/FAMILY HISTORY DEPRESSION SCREEN: Past Medical History: Diagnosis Date Asthma (CMS/HCC) Emphysema lung (CMS/HCC) Fibromyalgia GERD (gastroesophageal reflux disease) Hypertension (CMS/HCC) IBS (irritable bowel syndrome) Kidney stone Thyroid nodule (CMS/HCC) Past Surgical History: Procedure Laterality Date CARPAL TUNNEL RELEASE CERVICAL FUSION x3 CHOLECYSTECTOMY 2007 GLAUCOMA SURGERY 2020 HYSTERECTOMY KNEE SURGERY Right NECK SURGERY x2 OTHER SURGICAL HISTORY fibroma TONSILLECTOMY TUBAL LIGATION Social History Tobacco Use Smoking status: Former Types: Cigarettes Smokeless tobacco: Never Substance Use Topics Alcohol use: Never Comment: Caffeine intake: none Drug use: Never Family History Problem Relation Name Age of Onset Hypertension Mother Mental illness Mother Asthma Father Heart disease Father Hypertension Father Mental illness Maternal Grandmother Hypertension Maternal Grandmother Stroke Maternal Grandfather Mental illness Maternal Grandfather Hypertension Maternal Grandfather Heart disease Maternal Grandfather Cancer Maternal Grandfather Asthma Maternal Grandfather Hypertension Paternal Grandmother Mental illness Paternal Grandfather Heart disease Paternal Grandfather Hypertension Paternal Grandfather Cancer Paternal Grandfather Asthma Paternal Grandfather Diabetes Paternal Grandfather Stroke Paternal Grandfather Stroke Other Diabetes Other Hypertension Other Breast cancer Other Hypertension Sibling Mental illness Sibling Cancer Sibling Mental illness Daughter Hypertension Daughter Stroke Daughter Heart disease Daughter Cancer Daughter Diabetes Daughter Stroke Mother's Sister Mental illness Mother's Sister Hypertension Mother's Sister Heart disease Mother's Sister Diabetes Mother's Sister Cancer Mother's Sister Mental illness Child Heart disease Child Asthma Child Heart disease Father's Brother Hypertension Father's Brother Diabetes Father's Brother Mental illness Father's Sister Hypertension Father's Sister Heart disease Father's Sister Cancer Father's Sister Cancer Mother's Brother Depression: Not at risk (05/05/2022) [facility], [facility] PHQ-2 PHQ-2 score: 2 REVIEW OF SYMPTOMS: Review of Systems Constitutional: Negative for chills, diaphoresis, fatigue and fever. HENT: Negative for ear pain, tinnitus and trouble swallowing. Eyes: Negative for photophobia and visual disturbance. Respiratory: Negative for cough and shortness of breath. Cardiovascular: Negative for palpitations and leg swelling. Gastrointestinal: Negative for abdominal pain and nausea. Genitourinary: Negative for difficulty urinating and urgency. Musculoskeletal: Positive for back pain and gait problem. Negative for arthralgias, myalgias, neck pain and neck stiffness. Neurological: Positive for weakness and numbness. Negative for tremors and light-headedness. Psychiatric/Behavioral: Negative for agitation, confusion and suicidal ideas. OBJECTIVE: 03/31/2024 2:31 PM 01/15/2024 9:13 AM 09/22/2023 10:03 AM Vitals BMI 40.04 kg/m2 40.04 kg/m2 39.14 kg/m2 BSA (m2) 1.98 m2 1.98 m2 1.91 m2 Height (in) 5' 5' Weight (lb) 205 205 193.8 Visit Report Report Report EXAM: Neurological Exam Mental Status Awake, alert and oriented to person, place and time. Oriented to person, place and time. Recent andremote memory are intact. Speech is normal. Language is fluent with no aphasia. Attention and concentration are normal. Cranial Nerves CN II: Visual acuity is normal. Visual moody full to confrontation. CN III, IV, : Extraocular movements intact bilaterally. Normal lids and orbits bilaterally. Pupils equal round and reactive to light bilaterally. CN V: Facial sensation is normal. CN VII: Full and symmetric facial movement. CN VIII: Hearing is normal. CN XII: Tongue midline without atrophy or fasciculations. Motor Normal muscle bulk throughout. Normal muscle tone. Right Left Wrist flexion 5 5 Wrist extension 5 5 Right Left Deltoid 5 5 Biceps 5 5 Triceps 5 5 Wrist flexor 5 5 Wrist extensor 5 5 Glutei 5 5 Iliopsoas 5 5 Quadriceps 5 5 Gastrocnemius 5 5 Anterior tibialis 5 5 Posterior tibialis 5 5 Sensory Light touch is normal in upper and lower extremities. Pinprick is normal in upper and lower extremities. Vibration is normal in upper and lower extremities. Reflexes Right Left Brachioradialis 2+ 2+ Biceps 2+ 2+ Patellar 2+ 2+ Achilles 2+ 2+ Right Plantar: downgoing Left Plantar: downgoing Right pathological reflexes: Soren's absent. Ankle clonus absent. Left pathological reflexes: Soren's absent. Ankle clonus absent. Coordination [id number], rapid alternating movements and [id number] normal bilaterally without dysmetria. Gait Normal casual, toe, heel and tandem gait. Romberg is absent. PROCEDURE: NONE ASSESSMENT AND PLAN: Diagnoses and all orders for this visit: Idiopathic progressive polyneuropathy Continue thiamine 100 mg daily which is good for overall brain and nerve health. Start nortriptyline 10 mg at bed for neuropathy symptoms of numbness, tingling, burning. Spastic hemiplegia affecting right dominant side, unspecified etiology (CMS/HCC) MRI reviewed in length. I counseled the patient on the possible side effects and interactions of medications. Total time 20 minutes spent reviewing records, performing medically appropriate exam, counseling , education, ordering medication, tests, and/or procedures, documenting health information into the health record, communicating results to the patient, and coordinating care. Follow up 3 months. documented in this encounterCox Walnut [id number] [facility]11-20-2024 [facility]2024 Note[facility]11-[facility]-2024 NoteBar[facility]11-20-2024 History of Present illness Narrative* Austin Gordillo MD - 06/30/2024 9:30 AM EST Images from the original note were not included. PULMONARY MEDICINE NEW PATIENT VISIT Patient Name: Meredith Chaidez PRIMARY CARE PHYSICIAN: Eduin Perez DO REASON FOR CONSULT: shortness of breath, cough REQUESTING PHYSICIAN: Carine Burnett CNP My final recommendations/evaluation will be communicated back to the requesting physician by way ofshared medical record or letter via US mail. CHIEF COMPLAINT: Shortness of breath HISTORY OF PRESENT ILLNESS: Meredith Chaidez is a 53 year old female, ex-smoker, with a history of obesity (BMI 39), GERD, RA, fibromyalgia, migraine headache, multiple allergies including allergy to prednisone/methylprednisolone, anaphylasix to advair. Here with Lb. Previous asthma history Age of onset, how diagnosed: age teenager, sx abated around her early 30s, returned around mid 40s. ED visits in the last year:06/2024 for wheezing, chest pain, shortness of breath, borderline saturation (PaO2 60) and BIGG (creat 1.2 from baseline 0.6). Per chart - recommend admission for neurology evaluation for headache but appeared left AMA (though refused to sign AMA form) as she was not able to be given a single room. Requesting IV dilaudid and IV benadryl in ED and stating she has allergies to other MIKE medications as well as steroid allergy. Steroid bursts in the last year: Current sx - Worsened breathing in the last 3 months. Noted chest congestion, shortness of breath, wheezing, cough with intermittent white/clear sputum. + chest tightness, intermittent chest pain, reportedly leaky valves. + multiple family member with cardiac issues. + nocturnal awakenings with shortness of breath. Denied hemoptysis. + chronic RUQ pain, 5 years, worse with eating. Also noted worsened sob with eating. Also reported possible cirrhosis history. Comorbidities: ASA allergy: per chart aspirin allergy Obesity: Rheumatology - reported history of positive DAWOOD, diagnosed with RA Exposures Smoking: former: quit 2006 Current asthma therapy: Albuterol - HFA, nebulizing treatment Singulair Zyrtec bid Mucinex Theophylline - on for 8 years, off for 6 months, resumed 2 months ago. Never been monitoring the level. Previous asthma therapy: Throat swelling, hives Symbicort Advair, Dulera Atrovent Emotional/psychological reaction/hives Prednisone Solumedrol Cortisone Pending decadrone challenge - not able to complete as outpatient Review of prior medical records: PAST MEDICAL HISTORY Diagnosis Date Cervical spondylosis without myelopathy Esophageal reflux Irritable bowel syndrome Migraine without aura Unspecified asthma(493.90) PAST SURGICAL HISTORY Procedure Laterality Date LAPAROSCOPY SURG CHOLECYSTECTOMY Cholecystectomy, lap LIG/TRNSXJ FLP TUBE ABDL/VAG APPR UNI/BI Tubal ligation PAST SURGICAL HISTORY OF benign tumors on flank PAST SURGICAL HISTORY OF cervical fusion TONSILLECTOMY PRIMARY/SECONDARY <AGE 12 Tonsillectomy FAMILY HISTORY Problem Relation Age of Onset Hypertension Father Diabetes Maternal Aunt Diabetes Maternal Uncle Cancer Mother cervical Cancer Sister cervical Social History Tobacco Use Smoking status: Former Current packs/day: 0.00 Types: Cigarettes Quit date: 04/01/2007 Years since quittin.2 Passive exposure: Past Smokeless tobacco: Current Substance Use Topics Alcohol use: No Drug use: No ALLERGIES: ALLERGIES Allergen Reactions Egg Shortness of Breath Gluten Shortness of Breath Lactose Shortness of Breath Soy Shortness of Breath Adhesive Tape-Silic* Hives Advair Diskus [Flut* Anaphylaxis Arthrotec 50 [Diclo* Aspartame Itching Aspirin Codeine Depo-Provera [Medro* Elavil [Amitriptyli* Eryc [Erythromycin] Flonase Headache-Al* Swelling sneezing Ibu-200 [Ibuprofen] Imitrex [Sumatripta* Latex Medrol [Methylpredn* Msg [Other] And artificial sweeteners Nsaids (Non-Steroid* Hives Nubain [Nalbuphine * Nutrasweet [Other] Intolerance Prednisone Relafen [Nabumetone] Steroids [Betametha* Other: See Comments Difficulty breathing hives Toradol [Ketorolac * Trazodone [id number] Anti* Other: See Comments Shooting pain from chest down arm Vicodin [Hydrocodon* Vioxx [Rofecoxib] Zanaflex [Tizanidin* CURRENT OUTPATIENT MEDICATIONS: gabapentin (NEURONTIN) 300 mg capsule Take 300 mg by mouth three times a day. gabapentin (NEURONTIN) 600 mg tablet Take 600 mg by mouth three times a day. rhubarb root extract (ESTROVEN CMPLT MENOPAUSE RLF) 4 mg tab Take by mouth. guaiFENesin (MUCINEX) 1,200 mg Ta12 Take by mouth. cholecalciferol (VITAMIN D-3) 5,000 unit tab Take 5,000 Units by mouth once daily. theophylline ER 200 mg 12 hr tablet Take 200 mg by mouth twice daily. levothyroxine (SYNTHROID) 50 mcg tablet Take 50 mcg by mouth daily before breakfast. cloNIDine HCl (CATAPRES) 0.1 mg tablet Take 0.1 mg by mouth twice daily. febuxostat (ULORIC) 40 mg tab Take by mouth once daily. metoprolol succinate ER (TOPROL XL) 25 mg 24 hr tablet Take 50 mg by mouth once daily. amLODIPine (NORVASC) 2.5 mg tablet Take by mouth once daily. montelukast sodium(SINGULAIR 10 MG TAB) Take one(1) tablet daily at bedtime. cetirizine hcl(ZYRTEC 10 MG TAB) Take 10 mg by mouth two times a day. ALBUTEROL SULFATE 0.63 MG/3 ML NEB SOLUTION as necessary ALBUTEROL 90 MCG/ACTUATION AEROSOL INHALER Inhale one(1) - two(2) puffs four(4) times a day as needed for wheezing and shortness of breath. pantoprazole sodium(PROTONIX 40 MG TAB) Take 40 mg by mouth two times a day. promethazine hcl(PHENERGAN 25 MG TAB) as necessary amitriptyline (ELAVIL) 100 mg tablet Take 100 mg by mouth daily at bedtime. spironolactone (ALDACTONE) 50 mg tablet Take 50 mg by mouth once daily. guanFACINE (INTUNIV) 2 mg ER 24 hr tablet(s) Take 2 mg by mouth once daily. pantoprazole (PROTONIX) 40 mg injection Inject 40 mg intravenously DAILY (6 AM). Cyclobenzap and Irritant Cntr Irr2 10 mg kit linaCLOtide (LINZESS) 290 mcg capsule Take by mouth DAILY (6 AM). ZOLMitriptan (ZOMIG) 2.5 mg tablet Take 2.5 mg by mouth as needed. dronabinol (MARINOL) 5 mg capsule Take 5 mg by mouth twice daily before meals. hyoscyamine sublingual (LEVSIN SL) 0.125 mg Dissolve 0.125 mg under the tongue every 4 hours as needed. cyproheptadine (PERIACTIN) 4 mg tablet Take 4 mg by mouth three times daily as needed. IPRATROPIUM BROMIDE INHALATION Inhale as instructed every 4 hours as needed. REVIEW OF SYSTEMS GENERAL: unintentional weight loss 50 lb over last 4 months, no fever, chills EYES: No sudden vision changes CV: No chest pain, palpitations RESP: As in HPI GI: No nausea, vomiting, diarrhea : No dysuria, no hematuria SKIN: No rash MSK: No joint swelling NEURO: No sudden weakness or numbness PSYCH: No hallucinations PHYSICAL EXAMINATION: BP 149/84 Pulse 89 Temp (Src) 99.1 (Temporal) Resp 22 Wt 200 lb 9.9 oz (91.0kg) SpO2 91% LMP 01/31/2011 on RA General appearance: Well appearing, alert, in no acute distress Skin: Skin color, turgor normal, Eyes: Anicteric sclera. Extraocular movements are intact. Oropharynx: Lips, mucosa, and tongue normal, oropharynx normal Lungs: diffuse wheezing inspiratory and expiratory Heart: NS1S2, RRR without murmur, gallop, or rubs Abdomen: Abdomen soft, non-tender. Extremities: No deformities, edema, clubbing or cyanosis. Neuro: No focal motor deficit DATA: I personally reviewed the following labs, PFTs, radiographs Labs reviewed: Abs Eos: 06/2024 880 (8k) FeNO: 06/30/2024 69.0 IgE: NA RAST: NA LFTs: normal in 2007 NTproBNP 06/2024 wnl Imagings reviewed: CT chest wo const 06/[address] evidence of acute abnormality. Lung parenchyma and airways: No consolidation. No suspicious pulmonary nodule. Small left lower lobe base cyst. Right lower lobe paravertebral scarring. Small amount of presumed debris along the left lateral wall of the distal trachea (image 66). Central airways are otherwise patent. Pleural space: No pleural effusion. No pleural thickening. No pneumothorax. PFTs reviewed 06/30/2024 FEV1/FVC 0.59 pre, 0.56 post , FEV1 44 (1 )pre, 50 (1.12 )post %, FVC 62 (1.69 )pre, 73 (1.99 )post %, BD neg ( FVC change >10% pred but expiratory time change > 10%), flow volume loop reviewed IMPRESSIONS AND RECOMMENDATIONS Meredith Chaidez is evaluated today for: (J45.52) Severe persistent asthma with status asthmaticus (primary encounter diagnosis) Comment: Plan: Persistent wheezing, coughing, only speaking in short sentences; multiple allergies including severe allergies to ICS and systemic steroids - so limited options for outpatient therapy. She has been on theophyline without recent therapeutic level monitoring, and she reports issues with liver/possible cirrhosis diagnosis. Additional concerns include - borderline hypoxia of unclear etiology and PE not ruled out, however elevated Cr as of 1 week ago without clear baseline. Discussed with patient and , recommend proceed to ER and inpatient management including allergy test and optimize medical regimen. They are in agreement. I have given signout to ER attending Dr Vidal and Primary pulm attending Dr Ybarra. Austin Gordillo MD Pulmonary and Critical Care Medicine Respiratory [place] [facility] documented in this encounterM[facility]it[facility]11-20-2024 NoteBar[facility]11-20-2024 NoteBarney [facility]11-20-2024 Procedure note* Rosie Junior RRT - 06/30/2024 8:16 AM ESTAssociated Order(s): NITRIC OXIDE, EXHALED RESPIRATORY THERAPY ORAL EXHALED NITRIC OXIDE SERVICE DATE: 06/30/2024 SERVICE TIME: 8:16 AM Oral Exhaled Nitric Oxide measurement: 69.0 (ppb) (A) Normal: Adult <25 ppb, pediatric (<12 years) <20 ppb High Normal / Increased: Adult 25-50 ppb, pediatric (<12 years) 20-35 ppb Moderately raised exhaled Nitric Oxide may indicate underlying inflammation, but note that: Cold and influenza can raise exhaled Nitric Oxide and some patients have higher baseline exhaled Nitric Oxide levels than others. High: Adult >50 ppb, pediatric (<12 years) >35 ppb Indicative of ongoing eosinophilic inflammation. Symptomatic patient likely to respond to steroids. Possible causes (if already on steroids): Poor compliance, recent allergen exposure, steroid dose inadequate, and steroid resistance. Note that not all patients with high exhaled nitric oxide levels display symptoms. Oral Exhaled Nitric Oxide measurement (Previous Encounters) Test Date Oral Exhaled Nitric Oxide (ppb) 06/30/2024 69.0 (A) NAME: Rosie Junior RRT PATIENT NAME: Meredith Chaidez DATE: June 30, 2024 TIME: 8:16 AM [facility]11-20-[facility] Procedure note* Rosie Junior RRT - 06/30/2024 8:16 AM ESTAssociated Order(s): NITRIC OXIDE, EXHALED RESPIRATORY THERAPY ORAL EXHALED NITRIC OXIDE SERVICE DATE: 06/30/2024 SERVICE TIME: 8:16 AM Oral Exhaled Nitric Oxide measurement: 69.0 (ppb) (A) Normal: Adult <25 ppb, pediatric (<12 years) <20 ppb High Normal / Increased: Adult 25-50 ppb, pediatric (<12 years) 20-35 ppb Moderately raised exhaled Nitric Oxide may indicate underlying inflammation, but note that: Cold and influenza can raise exhaled Nitric Oxide and some patients have higher baseline exhaled Nitric Oxide levels than others. High: Adult >50 ppb, pediatric (<12 years) >35 ppb Indicative of ongoing eosinophilic inflammation. Symptomatic patient likely to respond to steroids. Possible causes (if already on steroids): Poor compliance, recent allergen exposure, steroid dose inadequate, and steroid resistance. Note that not all patients with high exhaled nitric oxide levels display symptoms. Oral Exhaled Nitric Oxide measurement (Previous Encounters) Test Date Oral Exhaled Nitric Oxide (ppb) 06/30/2024 69.0 (A) NAME: Rosie Junior RRT PATIENT NAME: Meredith Chaidez DATE: June 30, 2024 TIME: 8:16 AM documented in this encounterM[facility]it[facility]11-20-2024 [facility]11-20-2024 History of Present illness Narrative* Rosie Junior RRT - 06/30/2024 8:14 AM EST PULM FUNCTION: Provider: Austin Gordillo MD Spirometry w/BD: 1 Exhaled Nitric Oxide: 1 System: MC2 - [id number] documented in this encounterMckitrick Hospital11-13-2024 NoteBar[facility]11-13-2024 NoteBar[facility]11-13-2024 [id number]-3 (AGENT OF COVID-19) RNA: Not detected INFLUENZA A RNA: Not detected INFLUENZA B RNA: Not detected RESPIRATORY SYNCYTIAL VIRUS (RSV) RNA: Not detectedBarney Children'S Medical CenterComment on above:Performed By: #### [id number] ####[facility] [id number] [address]10-22-2024 Evaluation note* Diagnosis Onset Date Resolution Status Admit Date Allergy to methylprednisolone acute June 01, 2024 11:15am Asthma refractory to systemi c steroids acute June 01 11:15am GERD (gastroesophageal reflu x disease) acute June 01 11:15am NICOLE (obstructive sleep apnea) acute June 01, 2024 11:15am Reactive airway disease acute O ctober 2023 11:15am Seasonal allergic rhinitis acute June 01, 2024 11:15am Asthma refractory to systemi c steroids acute June 01 2:07pm NICOLE (obstructive sleep apnea) acute June 01, 2024 2:07pm Mild pulmonary valve regurgitation noneactive June 01 2:07pm Acute exacerbation of idiopathic pulmonary fibrosis inactive 2023 7:01pm Mild persistent asthma refractory to systemic steroids inactive July 20, 2024 7:01pm Allergy to methylprednisolone acute August 13, 2024 3:38am Asthma exacerbation acute 2024 3:38am [facility] Work Phone: 1(187) 955-410410-22-2024 Evaluation note* Diagnosis Onset Date Resolution Status Admit Date Allergy to methylprednisolone acute June 01, 2024 11:15am Asthma refractory to systemi c steroids acute June 01 11:15am GERD (gastroesophageal reflu x disease) acute June 01 11:15am NICOLE (obstructive sleep apnea) acute June 01, 2024 11:15am Reactive airway disease acute O ctober 2023 11:15am Seasonal allergic rhinitis acute June 01, 2024 11:15am Asthma refractory to systemi c steroids acute June 01 2:07pm NICOLE (obstructive sleep apnea) acute June 01, 2024 2:07pm Mild pulmonary valve regurgitation noneactive June 01 2:07pm Acute exacerbation of idiopathic pulmonary fibrosis inactive 2023 7:01pm Mild persistent asthma refractory to systemic steroids inactive July 20, 2024 7:01pm Allergy to methylprednisolone acute August 13, 2024 3:38am Asthma exacerbation acute 2024 3:38am Acute on chronic hypoxic respiratory failure acute August 13, 2024 10:07pm Acute respiratory distress acute August 13, 2024 10:07pm Hypoxia acute August 13 025 10:07pm Pulmonary fibrosis acute r y 2024 10:07pm Reactive airway disease acute J anuary 2024 10:07pm [facility] Work Phone: 1(722) 973-552308-21-2024 History of Present illness Narrative* Joe Valderrama MD - 03/31/2024 2:20 PM EDT Images from the original note were not included. CHIEF COMPLAINT REASON FOR VISIT: HPI: Meredith Chaidez is a 53 y.o. female who presents for a follow up. She states she has been in more pain. She states that she still has pain and numbness in her legs. She states she takes gabapentin 600 three times a day. No issues with it. She states she is prescribed cyclobenzaprine but she does not usually take it. She states she does see Dr. Baldwin and found multiple things. 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 She cannot take steroids, antiinflammatories. She does have multiple allergies. She statesher liver function did not come back good. She states Dr. Baldwin wanted to do infusions. She statesshe has numbness in her nose and above her lips, and eye lids. She states it will go in spurts all over her body. She states she will get bad spasms in her legs and her feet. She states her feet willcurl up. She states she deals with this every single day. She states it is starting to where she cannot work it out. She used to be on baclofen in the past and did not think it worked. But she has been off of it for a while. She states she gets a lot of pain all over her body especially in her knees. She states she cannot flatten her right knee. She states her right hip and right low back bothersher with the sciatica when she is trying to sleep. She went on disavulity in 2006. She states she has had issues since she was young. She states she has weakness in both of her arms and her arms. Shestates her arms are giving out on her. CURRENT MEDICATIONS: ALLERGIES/DISCONTINUE MEDICATIONS Current Outpatient Medications Medication Instructions albuterol HFA 90 mcg/act inhaler ALPRAZolam (Xanax) 0.5 MG tablet TAKE 1 TABLET BY MOUTH EVERY DAY NEEDED FOR 30 DAYS ALPRAZolam (Xanax) 1 MG tablet TAKE 1 TABLET BY MOUTH ONCE EVERY NIGHT DIRECTED amLODIPine (NORVASC) 2.5 mg, Oral, Daily biotin 100 mg, Oral, Daily Cetirizine HCl (ZyrTEC ALLERGY) 10 MG capsule ZyrTEC cholecalciferol (VITAMIN D-3) 2,000 Units, Oral, Daily cloNIDine (CATAPRES) 0.1 mg, Oral, 2 times daily cyclobenzaprine (Flexeril) 10 MG tablet Oral for 90 Days dexAMETHasone (DECADRON) 4 mg, Oral, 2 times daily with meals, Do not ingest bring to office for allergy testing diphenhydrAMINE (BENADryl) 25 MG tablet TAKE 1 TABLET BY MOUTH THREE TIMES A DAY WITH GABAPENTIN ASNEEDED febuxostat (ULORIC) 40 mg, Oral, Daily gabapentin (Neurontin) 300 MG capsule TAKE 2 CAPSULES BY MOUTH 3 TIMES A DAY NEEDED Oral for 30 Days hydrOXYzine HCl (ATARAX) 50 mg, Oral, Every 6 hours PRN ipratropium-albuterol (Duo-Neb) 0.5-2.5 mg/3 mL nebulizer solution levothyroxine (Synthroid, Levoxyl) 50 MCG tablet Every 24 hours magnesium oxide (MAG-OX) 400 mg, Oral, Nightly, 1/2-1 po hs metoprolol succinate XL (KAPSPARGO) 50 mg, Oral, Daily Misc Natural Products (ESTROVEN ENERGY PO) Oral montelukast (Singulair) 10 MG tablet Oral for 90 Days mupirocin (Bactroban) 2 % ointment apply to affected area three times a day if needed ondansetron ODT (Zofran-ODT) 8 MG disintegrating tablet Oral for 4 Days pantoprazole (PROTONIX) 40 mg, Oral, 2 times daily promethazine (PHENERGAN) 25 mg, Oral, Every 6 hours PRN spironolactone (ALDACTONE) 50 mg, Oral, Daily RT theophylline ER (Jen-Dur) 300 MG 12 hr tablet Oral for 90 Days ziprasidone (GEODON) 20 mg, Oral, 2 times daily with meals Allergies Allergen Reactions Fluticasone Anaphylaxis Gluten Meal Shortness of breath Lactose Shortness of breath Other Shortness of breath Other Reaction(s): Intolerance Prednisone Shortness of breath Other Reaction(s): Itching, high heart rate, migrai Salmeterol Anaphylaxis Acetaminophen Other Reaction(s): Unknown Reaction Amitriptyline Other Reaction(s): Hives Aspartame Itching Aspirin Other Reaction(s): Hives stomach pain, vomiting Bisoprolol GI intolerance Cefdinir Other Reaction(s): Vomiting Codeine Other Reaction(s): Hives Diclofenac Other Reaction(s): hives, stomach pain Diclofenac-Misoprostol Erythromycin Erythromycin Base Other Reaction(s): hives projectile vomiting Eszopiclone Other Reaction(s): Unknown Reaction Fluticasone-Salmeterol Gabapentin Hives Heparin Last time she got injected she had a ball in her gut Hydrochlorothiazide Other Reaction(s): Vomiting Hydrocodone Other Reaction(s): Unknown Reaction Hydrocodone-Acetaminophen Ibuprofen Other Reaction(s): Hives Ketorolac GI intolerance Ketorolac Tromethamine Other Reaction(s): hives,headache Latanoprost Other Reaction(s): Rash Latex Medroxyprogesterone Other Reaction(s): Hives Methylprednisolone Other Reaction(s): hives, anger Misoprostol Other Reaction(s): hives, stomach pain Morphine Hives Nabumetone Other Reaction(s): hives Nalbuphine Other Reaction(s): hives, headache Oxycodone Other Reaction(s): Unknown Reaction Pregabalin Other Reaction(s): Unknown Reaction Quetiapine GI intolerance Rofecoxib Other Reaction(s): hives, stomach pain Sulfamethoxazole Other Reaction(s): Unknown Reaction Sulfamethoxazole-Trimethoprim Angioedema Sumatriptan Other Reaction(s): Chest Pain, Chest Pain, left arm pain Tizanidine Other Reaction(s): Unknown Reaction Tizanidine Hcl Other Reaction(s): Paresthesia Trazodone Other Reaction(s): Swelling-lips,tongue,face hives Trimethoprim Other Reaction(s): Unknown Reaction Warfarin Other Reaction(s): Unknown Reaction Nsaids GI intolerance, Hives and Nausea And Vomiting Other Reaction(s): hives Other Reaction(s): Nausea Wound Dressing Adhesive Rash There are no discontinued medications. PAST MEDICAL HISTORY: SURGICAL/SOCIAL/FAMILY HISTORY DEPRESSION SCREEN: Past Medical History: Diagnosis Date Asthma (CMS/HCC) Emphysema lung (CMS/HCC) Fibromyalgia GERD (gastroesophageal reflux disease) Hypertension (CMS/HCC) IBS (irritable bowel syndrome) Kidney stone Thyroid nodule (CMS/HCC) Past Surgical History: Procedure Laterality Date CARPAL TUNNEL RELEASE CERVICAL FUSION x3 CHOLECYSTECTOMY 2007 GLAUCOMA SURGERY 2020 HYSTERECTOMY KNEE SURGERY Right NECK SURGERY x2 OTHER SURGICAL HISTORY fibroma TONSILLECTOMY TUBAL LIGATION Social History Tobacco Use Smoking status: Former Types: Cigarettes Smokeless tobacco: Never Substance Use Topics Alcohol use: Never Comment: Caffeine intake: none Drug use: Never Family History Problem Relation Name Age of Onset Hypertension Mother Mental illness Mother Asthma Father Heart disease Father Hypertension Father Mental illness Maternal Grandmother Hypertension Maternal Grandmother Stroke Maternal Grandfather Mental illness Maternal Grandfather Hypertension Maternal Grandfather Heart disease Maternal Grandfather Cancer Maternal Grandfather Asthma Maternal Grandfather Hypertension Paternal Grandmother Mental illness Paternal Grandfather Heart disease Paternal Grandfather Hypertension Paternal Grandfather Cancer Paternal Grandfather Asthma Paternal Grandfather Diabetes Paternal Grandfather Stroke Paternal Grandfather Stroke Other Diabetes Other Hypertension Other Breast cancer Other Hypertension Sibling Mental illness Sibling Cancer Sibling Mental illness Daughter Hypertension Daughter Stroke Daughter Heart disease Daughter Cancer Daughter Diabetes Daughter Stroke Mother's Sister Mental illness Mother's Sister Hypertension Mother's Sister Heart disease Mother's Sister Diabetes Mother's Sister Cancer Mother's Sister Mental illness Child Heart disease Child Asthma Child Heart disease Father's Brother Hypertension Father's Brother Diabetes Father's Brother Mental illness Father's Sister Hypertension Father's Sister Heart disease Father's Sister Cancer Father's Sister Cancer Mother's Brother Depression: Not at risk (05/05/2022) [facility] PHQ-2 PHQ-2 score: 2 REVIEW OF SYMPTOMS: Review of Systems Constitutional: Negative for chills, diaphoresis, fatigue and fever. HENT: Negative for ear pain, tinnitus and trouble swallowing. Eyes: Negative for photophobia and visual disturbance. Respiratory: Negative for cough and shortness of breath. Cardiovascular: Negative for palpitations and leg swelling. Gastrointestinal: Negative for abdominal pain and nausea. Genitourinary: Negative for difficulty urinating and urgency. Musculoskeletal: Positive for back pain, gait problem, neck pain and neck stiffness. Negative for arthralgias and myalgias. Neurological: Positive for weakness and numbness. Negative for tremors and light-headedness. Psychiatric/Behavioral: Negative for agitation, confusion and suicidal ideas. OBJECTIVE: 03/31/2024 2:31 PM 01/15/2024 9:13 AM 09/22/2023 10:03 AM Vitals BMI 40.04 kg/m2 40.04 kg/m2 39.14 kg/m2 BSA (m2) 1.98 m2 1.98 m2 1.91 m2 Height (in) 5' 5' Weight (lb) 205 205 193.8 Visit Report Report Report EXAM: Neurological Exam Mental Status Awake, alert and oriented to person, place and time. Oriented to person, place and time. Recent andremote memory are intact. Speech is normal. Language is fluent with no aphasia. Attention and concentration are normal. Cranial Nerves CN II: Visual acuity is normal. Visual moody full to confrontation. CN III, IV, : Extraocular movements intact bilaterally. Normal lids and orbits bilaterally. Pupils equal round and reactive to light bilaterally. CN V: Facial sensation is normal. CN VII: Full and symmetric facial movement. CN VIII: Hearing is normal. CN XII: Tongue midline without atrophy or fasciculations. Motor Normal muscle bulk throughout. Normal muscle tone. Right Left Wrist flexion 5 5 Wrist extension 5 5 Right Left Deltoid 5 5 Biceps 5 5 Triceps 5 5 Wrist flexor 5 5 Wrist extensor 5 5 Glutei 5 5 Iliopsoas 5 5 Quadriceps 5 5 Gastrocnemius 5 5 Anterior tibialis 5 5 Posterior tibialis 5 5 Sensory Light touch is normal in upper and lower extremities. Pinprick is normal in upper and lower extremities. Vibration is normal in upper and lower extremities. Reflexes Right Left Brachioradialis 2+ 2+ Biceps 2+ 2+ Patellar 2+ 2+ Achilles 2+ 2+ Right Plantar: downgoing Left Plantar: downgoing Right pathological reflexes: Soren's absent. Ankle clonus absent. Left pathological reflexes: Soren's absent. Ankle clonus absent. Coordination Eknzbj-le-nfvd, rapid alternating movements and rone-fu-othc normal bilaterally without dysmetria. Gait Normal casual, toe, heel and tandem gait. Romberg is absent. PROCEDURE: NONE ASSESSMENT AND PLAN: Diagnoses and all orders for this visit: Intractable migraine with aura with status migrainosus (CMS/HCC) - baclofen (Lioresal) 10 MG tablet; Take 1 tablet (10 mg) by mouth in the morning and 1 tablet (10 mg) in the evening and 1 tablet (10 mg) before bedtime. Idiopathic progressive polyneuropathy - baclofen (Lioresal) 10 MG tablet; Take 1 tablet (10 mg) by mouth in the morning and 1 tablet (10 mg) in the evening and 1 tablet (10 mg) before bedtime. - thiamine (Vitamin B-1) 100 MG tablet; Take 1 tablet (100 mg) by mouth Daily Oropharyngeal dysphagia - MR brain w and wo contrast routine; Future Spastic hemiplegia affecting right dominant side, unspecified etiology (CMS/HCC) - MR brain w and wo contrast routine; Future I counseled the patient on the possible side effects and interactions of medications. Total time 20 minutes spent reviewing records, performing medically appropriate exam, counseling , education, ordering medication, tests, and/or procedures, documenting health information into the health record, communicating results to the patient, and coordinating care. Follow up 8 weeks. documented in this encounterCox Walnut [id number] Evaluation note* Author ad [facility] Authored February 25, 2024 2:16 pm 53-year-old female referred to the GI clinic for evaluation of abdominal pain. Patient has chronic right-sided abdominal pain. She has intermittent dysphagia for the last 2 years. She has chronic heartburn which she was mostly controlled by pantoprazole 40 mg twice daily. She had recent LFTs which were normal and she had recent CT abdomen which showed hepatic steatosis otherwise it was unremarkable -Regarding fatty liver, will arrange for FibroScan and will check viral hepatitis serologies. Patient has obesity, hypertension, and hypothyroidism which are risk factors for MASLD. -Regarding abdominal pain dysphagia and chronic heartburn will arrange for EGD to assess for Savage's and to assess etiology of patient's symptoms [facility] Work Phone: [phone] History of Present illness Narrative* Joe Valderrama MD - 09/22/2023 9:50 AM EST Subjective Meredith Chaidez is a 53 y.o. female. HPI Patient is here for a follow up. She states she does have more numbness and tingling. Worse now in legs. States they are going numb quicker and she is losing her hair in her legs. She states she doesstill have back pain. Pain goes down into legs. States that if she is on the toilet for more than 5minutes her legs and feet will be numb. She has had 3 cervical fusions. States she has done therapyin the past and nothing helps She states she did have surgery on her right upper extremity in March. She does wear a brace on it. She states the pain and numbness feels worse since surgery. She doesuse ice to help with the swelling in both hands. No other concerns. Wt 193 lb 12.8 oz BMI 39.14 kg/m Allergies Allergen Reactions Fluticasone Anaphylaxis Gluten Meal Shortness of breath Lactose Shortness of breath Other Shortness of breath Other Reaction(s): Intolerance Prednisone Shortness of breath Other Reaction(s): Itching, high heart rate, migrai Salmeterol Anaphylaxis Amitriptyline Other Reaction(s): Hives Aspartame Itching Aspirin Other Reaction(s): Hives stomach pain, vomiting Bisoprolol GI intolerance Cefdinir Other Reaction(s): Vomiting Codeine Other Reaction(s): Hives Diclofenac Other Reaction(s): hives, stomach pain Diclofenac-Misoprostol Erythromycin Erythromycin Base Other Reaction(s): hives projectile vomiting Fluticasone-Salmeterol Gabapentin Hives Heparin Last time she got injected she had a ball in her gut Hydrochlorothiazide Other Reaction(s): Vomiting Hydrocodone-Acetaminophen Ibuprofen Other Reaction(s): Hives Ketorolac Tromethamine Other Reaction(s): hives,headache Latanoprost Other Reaction(s): Rash Latex Medroxyprogesterone Other Reaction(s): Hives Methylprednisolone Other Reaction(s): hives, anger Misoprostol Other Reaction(s): hives, stomach pain Nabumetone Other Reaction(s): hives Nalbuphine Other Reaction(s): hives, headache Pregabalin Other Reaction(s): Unknown Reaction Quetiapine GI intolerance Rofecoxib Other Reaction(s): hives, stomach pain Sumatriptan Other Reaction(s): Chest Pain, Chest Pain, left arm pain Tizanidine Other Reaction(s): Unknown Reaction Tizanidine Hcl Other Reaction(s): Paresthesia Trazodone Other Reaction(s): Swelling-lips,tongue,face hives Warfarin Other Reaction(s): Unknown Reaction Nsaids Hives and Nausea And Vomiting Other Reaction(s): hives Current Outpatient Medications: albuterol HFA 90 mcg/act inhaler, , Disp: , Rfl: ALPRAZolam (Xanax) 0.5 MG tablet, TAKE 1 TABLET BY MOUTH EVERY DAY NEEDED FOR 30 DAYS, Disp: , Rfl: ALPRAZolam (Xanax) 1 MG tablet, TAKE 1 TABLET BY MOUTH ONCE EVERY NIGHT DIRECTED, Disp: , Rfl: amLODIPine (Norvasc) 5 MG tablet, take 1 tablet by mouth every morning Oral for 90, Disp: , Rfl: Cetirizine HCl (ZyrTEC ALLERGY) 10 MG capsule, ZyrTEC, Disp: , Rfl: cholecalciferol (Vitamin D-3) 50 MCG (2000 UT) capsule, Take 2,000 Units by mouth in the morning., Disp: , Rfl: cloNIDine (Catapres) 0.1 MG tablet, Take 0.1 mg by mouth in the morning and 0.1 mg in the evening.,Disp: , Rfl: cyclobenzaprine (Flexeril) 10 MG tablet, Oral for 90 Days, Disp: , Rfl: diphenhydrAMINE (BENADryl) 25 MG tablet, TAKE 1 TABLET BY MOUTH THREE TIMES A DAY WITH GABAPENTIN NEEDED, Disp: , Rfl: Febuxostat (ULORIC PO), Uloric, Disp: , Rfl: gabapentin (Neurontin) 300 MG capsule, TAKE 2 CAPSULES BY MOUTH 3 TIMES A DAY NEEDED Oral for 30Days, Disp: , Rfl: ipratropium-albuterol (Duo-Neb) 0.5-2.5 mg/3 mL nebulizer solution, , Disp: , Rfl: levothyroxine (Synthroid, Levoxyl) 50 MCG tablet, 1 (one) time each day at the same time., Disp: , Rfl: meclizine (Antivert) 25 MG tablet, take 1 tablet by mouth three times a day if needed for dizzinessOral for 10, Disp: , Rfl: metoprolol succinate XL (Toprol-XL) 25 MG 24 hr tablet, Oral for 90 Days, Disp: , Rfl: Misc Natural Products (ESTROVEN ENERGY PO), Take by mouth., Disp: , Rfl: montelukast (Singulair) 10 MG tablet, Oral for 90 Days, Disp: , Rfl: mupirocin (Bactroban) 2 % ointment, apply to affected area three times a day if needed, Disp: , Rfl: ondansetron ODT (Zofran-ODT) 8 MG disintegrating tablet, Oral for 4 Days, Disp: , Rfl: pantoprazole (ProtoNix) 40 MG EC tablet, Oral for 90 Days, Disp: , Rfl: promethazine (Phenergan) 25 MG tablet, Take 25 mg by mouth every 6 (six) hours if needed., Disp: , Rfl: spironolactone (Aldactone) 50 MG tablet, Take 50 mg by mouth in the morning., Disp: , Rfl: theophylline ER (Jen-Dur) 300 MG 12 hr tablet, Oral for 90 Days, Disp: , Rfl: magnesium oxide (Mag-Ox) 400 mg tablet, Take 1 tablet (400 mg) by mouth in the morning., Disp: 90 tablet, Rfl: 3 Past Medical History: Diagnosis Date Asthma (CMS/HCC) Emphysema lung (CMS/HCC) Fibromyalgia GERD (gastroesophageal reflux disease) Hypertension (CMS/HCC) IBS (irritable bowel syndrome) Kidney stone Thyroid nodule (CMS/HCC) Past Surgical History: Procedure Laterality Date CARPAL TUNNEL RELEASE CERVICAL FUSION x3 CHOLECYSTECTOMY 2007 GLAUCOMA SURGERY 2020 HYSTERECTOMY KNEE SURGERY Right NECK SURGERY x2 OTHER SURGICAL HISTORY fibroma TONSILLECTOMY TUBAL LIGATION Family History Problem Relation Name Age of Onset Hypertension Mother Mental illness Mother Asthma Father Heart disease Father Hypertension Father Mental illness Maternal Grandmother Hypertension Maternal Grandmother Stroke Maternal Grandfather Mental illness Maternal Grandfather Hypertension Maternal Grandfather Heart disease Maternal Grandfather Cancer Maternal Grandfather Asthma Maternal Grandfather Hypertension Paternal Grandmother Mental illness Paternal Grandfather Heart disease Paternal Grandfather Hypertension Paternal Grandfather Cancer Paternal Grandfather Asthma Paternal Grandfather Diabetes Paternal Grandfather Stroke Paternal Grandfather Stroke Other Diabetes Other Hypertension Other Breast cancer Other Hypertension Sibling Mental illness Sibling Cancer Sibling Mental illness Daughter Hypertension Daughter Stroke Daughter Heart disease Daughter Cancer Daughter Diabetes Daughter Stroke Mother's Sister Mental illness Mother's Sister Hypertension Mother's Sister Heart disease Mother's Sister Diabetes Mother's Sister Cancer Mother's Sister Mental illness Child Heart disease Child Asthma Child Heart disease Father's Brother Hypertension Father's Brother Diabetes Father's Brother Mental illness Father's Sister Hypertension Father's Sister Heart disease Father's Sister Cancer Father's Sister Cancer Mother's Brother reports that she has quit smoking. Her smoking use included cigarettes. She has never used smokeless tobacco. She reports that she does not drink alcohol and does not use drugs. Review of Systems Constitutional: Negative for chills, diaphoresis, fatigue and fever. HENT: Negative for ear pain, tinnitus and trouble swallowing. Eyes: Negative for photophobia and visual disturbance. Respiratory: Negative for cough and shortness of breath. Cardiovascular: Negative for palpitations and leg swelling. Gastrointestinal: Negative for abdominal pain and nausea. Genitourinary: Negative for difficulty urinating and urgency. Musculoskeletal: Negative for arthralgias, back pain, myalgias, neck pain and neck stiffness. Neurological: Negative for tremors, weakness, light-headedness and numbness. Psychiatric/Behavioral: Negative for agitation, confusion and suicidal ideas. Objective Neurological Exam Mental Status Awake, alert and oriented to person, place and time. Oriented to person, place and time. Recent andremote memory are intact. Speech is normal. Language is fluent with no aphasia. Attention and concentration are normal. Cranial Nerves CN II: Visual acuity is normal. Visual moody full to confrontation. CN III, IV, : Extraocular movements intact bilaterally. Normal lids and orbits bilaterally. Pupils equal round and reactive to light bilaterally. CN V: Facial sensation is normal. CN VII: Full and symmetric facial movement. CN VIII: Hearing is normal. CN XII: Tongue midline without atrophy or fasciculations. Motor Normal muscle bulk throughout. Normal muscle tone. Right Left Wrist flexion 5 5 Wrist extension 5 5 Right Left Deltoid 5 5 Biceps 5 5 Triceps 5 5 Wrist flexor 5 5 Wrist extensor 5 5 Glutei 5 5 Iliopsoas 5 5 Quadriceps 5 5 Gastrocnemius 5 5 Anterior tibialis 5 5 Posterior tibialis 5 5 Sensory Light touch is normal in upper and lower extremities. Pinprick is normal in upper and lower extremities. Vibration is normal in upper and lower extremities. Reflexes Right Left Brachioradialis 2+ 2+ Biceps 2+ 2+ Patellar 2+ 2+ Achilles 2+ 2+ Right Plantar: downgoing Left Plantar: downgoing Right pathological reflexes: Soren's absent. Ankle clonus absent. Left pathological reflexes: Soren's absent. Ankle clonus absent. Coordination Qojahs-pz-qsbz, rapid alternating movements and kycz-rl-mjxp normal bilaterally without dysmetria. Gait Normal casual, toe, heel and tandem gait. Romberg is absent. Assessment/Plan Diagnoses and all orders for this visit: Lumbosacral radiculopathy at L5 - MR lumbar spine wo contrast; Future - magnesium oxide (Mag-Ox) 400 mg tablet; Take 1 tablet (400 mg) by mouth in the morning. Numbness and tingling - MR lumbar spine wo contrast; Future - magnesium oxide (Mag-Ox) 400 mg tablet; Take 1 tablet (400 mg) by mouth in the morning. Intractable chronic migraine without aura and without status migrainosus (CMS/HCC) - magnesium oxide (Mag-Ox) 400 mg tablet; Take 1 tablet (400 mg) by mouth in the morning. Carpal tunnel syndrome, bilateral Idiopathic progressive polyneuropathy sensory disturbance in the distal lower extremities manifested predominantly as numbness and paresthesia in his bilateral feet which have been progressive over the past 8 months, Possible etiologies would include a generalized process affecting large fibers such as peripheral neuropathy, lumbar radiculopathy, or lumbosacral plexopathy. I cannot exclude a small fiber neuropathy contributing to predominantly sensory symptoms in the lower extremities, I cannot exclude it medical condition or metabolic process contributing to peripheral nerve dysfunction including polyneuropathy. documented in this encounterCox Walnut [id number] Hospital Discharge instructions Patient Education 03/24/2023 13:31:46 Post Op Patient Instructions - FT (CUSTOM) 03/19/2023 16:17:34 Cubital Tunnel Syndrome Cubital Tunnel Syndrome Cubital tunnel syndrome is a condition that causes pain and weakness of the forearm and hand. It happens when one of the nerves that runs along the inside of the elbow joint (ulnar nerve) becomes irritated. This condition is usually caused by repeated arm motions that are done during sports or work-related activities. What are the causes? This condition may be caused by: Increased pressure on the ulnar nerve at the elbow, arm, or forearm. This can result from: ?Irritation caused by repeated elbow bending. ?Poorly healed elbow fractures. ?Tumors in the elbow. These are usually noncancerous (benign). ?Scar tissue that develops in the elbow after an injury. ?Bony growths (spurs) near the ulnar nerve. Stretching of the nerve due to loose elbow ligaments. Trauma to the nerve at the elbow. What increases the risk? The following factors may make you more likely to develop this condition: Doing manual labor that requires frequent bending of the elbow. Playing sports that include repeated or strenuous throwing motions, such as baseball. Playing contact sports, such as football or lacrosse. Not warming up properly before activities. Having diabetes. Having an underactive thyroid (hypothyroidism). What are the signs or symptoms? Symptoms of this condition include: Clumsiness or weakness of the hand. Tenderness of the inner elbow. Aching or soreness of the inner elbow, forearm, or fingers, especially the little finger or the ring finger. Increased pain when forcing the elbow to bend. Reduced control when throwing objects. Tingling, numbness, or a burning feeling inside the forearm or in part of the hand or fingers, especially the little finger or the ring finger. Sharp pains that shoot from the elbow down to the wrist and hand. The inability to real estate coordinator or pinch hard. How is this diagnosed? This condition is diagnosed based on: Your symptoms and medical history. Your health care provider will also ask for details about any injury. A physical exam. You may also have tests, including: Electromyogram (EMG). This test measures electrical signals sent by your nerves into the muscles. Nerve conduction study. This test measures how well electrical signals pass through your nerves. Imaging tests, such as X-rays, ultrasound, and MRI. These tests check for possible causes of your condition. How is this treated? This condition may be treated by: Stopping the activities that are causing your symptoms to get worse. Icing and taking medicines to reduce pain and swelling. Wearing a splint to prevent your elbow from bending, or wearing an elbow pad where the ulnar nerve is closest to the skin. Working with a physical therapist in less severe cases. This may help to: ?Decrease your symptoms. ?Improve the strength and range of motion of your elbow, forearm, and hand. If these treatments do not help, surgery may be needed. Follow these instructions at home: If you have a splint: Wear the splint as told by your health care provider. Remove it only as told by your health care provider. Loosen the splint if your fingers tingle, become numb, or turn cold and blue. Keep the splint clean. If the splint is not waterproof: ?Do not let it get wet. ?Cover it with a watertight covering when you take a bath or shower. Managing pain, stiffness, and swelling If directed, put ice on the injured area: ?Put ice in a plastic bag. ?Place a towel between your skin and the bag. ?Leave the ice on for 20 minutes, 2 3 times a day. Move your fingers often to avoid stiffness and to lessen swelling. Raise (elevate) the injured area above the level of your heart while you are sitting or lying down. General instructions Take gbnc-qcx-sfaicoh and prescription medicines only as told by your health care provider. Do any exercise or physical therapy as told by your health care provider. Do not drive or use heavy machinery while taking prescription pain medicine. If you were given an elbow pad, wear it as told by your health care provider. Keep all follow-up visits as told by your health care provider. This is important. Contact a health care provider if: Your symptoms get worse. Your symptoms do not get better with treatment. You have new pain. Your hand on the injured side feels numb or cold. Summary Cubital tunnel syndrome is a condition that causes pain and weakness of the forearm and hand. You are more likely to develop this condition if you do work or play sports that involve repeated arm movements. This condition is often treated by stopping repetitive activities, applying ice, and using anti-inflammatory medicines. In rare cases, surgery may be needed. This information is not intended to replace advice given to you by your health care provider. Make sure you discuss any questions you have with your health care provider. Document Revised: 09/19/2021 Document Reviewed: 09/19/2021 [employer] Patient Education 2022 [employer]. 03/19/2023 16:17:34 Trigger Finger Trigger Finger Trigger finger, also called stenosing tenosynovitis, is a condition that causes a finger to get stuck in a bent position. Each finger has a tendon, which is a tough, cord-like tissue that connects muscle to bone, and each tendon passes through a tunnel of tissue called a tendon sheath. To move your finger, your tendon needs to glide freely through the sheath. Trigger finger happens when the tendon or the sheath thickens, making it difficult to move your finger. Trigger finger can affect any finger or a thumb. It may affect more than one finger. Mild cases may clear up with rest and medicine. Severe cases require more treatment. What are the causes? Trigger finger is caused by a thickened finger tendon or tendon sheath. The cause of this thickening is not known. What increases the risk? The following factors may make you more likely to develop this condition: Doing activities that require a strong real estate coordinator. Having rheumatoid arthritis, gout, or diabetes. Being [age] years old. Being female. What are the signs or symptoms? Symptoms of this condition include: Pain when bending or straightening your finger. Tenderness or swelling where your finger attaches to the palm of your hand. A lump in the palm of your hand or on the inside of your finger. Hearing a noise like a pop or a snap when you try to straighten your finger. Feeling a catching or locking sensation when you try to straighten your finger. Being unable to straighten your finger. How is this diagnosed? This condition is diagnosed based on your symptoms and a physical exam. How is this treated? This condition may be treated by: Resting your finger and avoiding activities that make symptoms worse. Wearing a finger splint to keep your finger extended. Taking NSAIDs, such as ibuprofen, to relieve pain and swelling. Doing gentle exercises to stretch the finger as told by your health care provider. Having medicine that reduces swelling and inflammation (steroids) injected into the tendon sheath. Injections may need to be repeated. Having surgery to open the tendon sheath. This may be done if other treatments do not work and you cannot straighten your finger. You may need physical therapy after surgery. Follow these instructions at home: If you have a splint: Wear the splint as told by your health care provider. Remove it only as told by your health care provider. Loosen it if your fingers tingle, become numb, or turn cold and blue. Keep it clean. If the splint is not waterproof: ?Do not let it get wet. ?Cover it with a watertight covering when you take a bath or shower. Managing pain, stiffness, and swelling If directed, apply heat to the affected area as often as told by your health care provider. Use theheat source that your health care provider recommends, such as a moist heat pack or a heating pad. Place a towel between your skin and the heat source. Leave the heat on for 20 30 minutes. Remove the heat if your skin turns bright red. This is especially important if you are unable to feel pain, heat, or cold. You may have a greater risk of getting burned. If directed, put ice on the painful area. To do this: If you have a removable splint, remove it as told by your health care provider. Put ice in a plastic bag. Place a towel between your skin and the bag or between your splint and the bag. Leave the ice on for 20 minutes, 2 3 times a day. Activity Rest your finger as told by your health care provider. Avoid activities that make the pain worse. Return to your normal activities as told by your health care provider. Ask your health care provider what activities are safe for you. Do exercises as told by your health care provider. Ask your health care provider when it is safe to drive if you have a splint on your hand. General instructions Take rzzp-hae-vywbrfz and prescription medicines only as told by your health care provider. Keep all follow-up visits as told by your health care provider. This is important. Contact a health care provider if: Your symptoms are not improving with home care. Summary Trigger finger, also called stenosing tenosynovitis, causes your finger to get stuck in a bent position. This can make it difficult and painful to straighten your finger. This condition develops when a finger tendon or tendon sheath thickens. Treatment may include resting your finger, wearing a splint, and taking medicines. In severe cases, surgery to open the tendon sheath may be needed. This information is not intended to replace advice given to you by your health care provider. Make sure you discuss any questions you have with your health care provider. Document Revised: 12/13/2019 Document Reviewed: 12/13/2019 [employer] Patient Education 2022 [employer] Follow Up Care 02/19/2023 12:32:15 With:NALINI Robbins Address: [address] [place] [id number]- Business (1) When:04/23/2023 09:00:00 Comments:Keep scheduled appointment [facility]08-08-2023 Note [id number]:127[facility] 01-14-2023 Hospital Discharge instructions Follow Up Care 01/14/2023 15:34:28 With:Joe Valderrama [facility] [address] [place] [address]- Business (1) When:01/17/2023 18:14:14 With:Eligio Ford [facility] [place] [address]- Business (2) When:Within 3 Day(s) [facility]06-06-2023 Evaluation + Plan noteExtracted from: Title:ED Note Author:Asad Bhatt DO Date:01/14 Abdominal pain (R10.9: Unspe cified abdominal pain) Paresthesias (R20.2: Paresthesia of skin) Orders: ondansetron, 4 mg = 2 mL, Injection, IV Push, Once, Stop date 01/14/23 17:34:00 EDT, STAT, Start date 01/14/23 17:34:00 EDT, 01/14/23 17:34:00 EDT Automated Diff Basic Metabolic Panel CBC w/ Auto Diff [place] Stroke Scale Communication Order Physician to Nursing Continuous Pulse Oximetry CT Abdomen/Pelvis w/ Contrast CT Head or Brain w/o Contrast ECG 12 Lead Adult ED Cardiac Monitoring eGFR Hepatic Function Panel Lipase Level NPO Diet Oxygen Therapy PT & PTT Routine Capillary Glucose POC Saline Lock Insert Stroke Quality Measures Troponin 0 Hr. UA With Cult Reflex Vital Signs XR Chest Single View Future Appointments Appointment Date:02/05/2023 02:20:00 PM Scheduled Provider:Eligio Ford MD Location:[facility] Appointment Type:[facility]09-27-2022 History of Present illness Narrative* Johann Hayes MD - 05/07/2022 10:32 AM EDT NEUROLOGY CONSULT NOTE PATIENT NAME: Meredith Chaidez DATE: May 07, 2022 PRIMARY CARE PHYSICIAN: Espinoza Mack MD REASON FOR CONSULT: Forgetfulness REQUESTING PHYSICIAN: Espinoza Mack MD My final recommendations will be communicated to the requesting health care provider by way of shared medical record for internal providers. ASSESSMENT: This is Meredith Chaidez is a 51 year old female with a history of asthma, migraines, cervical myelopathy, fibromyalgia, sleep apnea, gastrointestinal issues, swallowing difficulties, glaucoma who presents with forgetfulness. 1. Forgetfulness 2. Swallowing difficulties PLAN: Vitamin B12, TSH, methylmalonic acid, acetylcholine receptor antibodies ordered. Any problems or concerns to call me or primary care physician immediately or go straight to the emergency department HISTORY OF PRESENT ILLNESS: Meredith Chaidez is a 51 year old female, with a history of asthma, migraines, cervical myelopathy, fibromyalgia, sleep apnea, gastrointestinal issues, swallowing difficulties, glaucoma who presents with forgetfulness. Patient states that she started having memory issues 2years ago in the last year becoming more pronounced. She has had difficulty remembering recent things that are than remote. She would get lost in familiar places, forget where she parked her car, watching movies with her and a week later she could not remember what the movie was the husbandconfirms this. There is no family history of dementia nonetheless. This has been becoming an issue a ccording to the as well who is here. Apparently the patient has been having problems as well with swallowing. She has extensive GI issues, her family doctor had mentioned her to be screened for possible myasthenia gravis. She denies ptosis or head drop. She has chronic pain numbness and tingling and other somatic complaints. She has been having she states she has had MRIs in the past. Thelast MRI that was performed was in September 2021 that showed an incidental empty sella otherwise unremarkable. The main issue she states has been really her memory. She was then referred to neurology. COMPLETE REVIEW OF SYSTEMS: GENERAL: No weight loss, malaise or fevers RESPIRATORY: Negative for cough, hemoptysis, wheezing, COPD, dyspnea or shortness of breath CARDIOVASCULAR: Negative for chest pain, leg swelling, hypertension, CHF or palpitations GI: No nausea, vomiting, or diarrhea See HPI. All other systems reviewed and are negative. PAST MEDICAL HISTORY Diagnosis Date ASTHMA UNSPECIFIED CERVICAL SPONDYLOSIS COMMON MIGRAINE ESOPHAGEAL REFLUX IRRITABLE COLON PAST SURGICAL HISTORY Procedure Laterality Date L'SCOPE CHOLECYSTECTOMY Cholecystectomy, lap LIGATE FALLOPIAN TUBE Tubal ligation PAST SURGICAL HISTORY OF benign tumors on flank PAST SURGICAL HISTORY OF cervical fusion REMOVAL OF TONSILS,<12 Y/O Tonsillectomy FAMILY HISTORY Problem Relation Age of Onset Hypertension Father Diabetes Maternal Aunt Diabetes Maternal Uncle Cancer Mother cervical Cancer Sister cervical Social History Tobacco Use Smoking status: Former Types: Cigarettes Quit date: 04/01/2007 Years since quittin.1 Substance Use Topics Alcohol use: No Drug use: No MEDICATIONS: Current Outpatient Medications Medication Sig Dispense Refill theophylline ER 200 mg 12 hr tablet Take 200 mg by mouth twice daily. levothyroxine (SYNTHROID) 50 mcg tablet Take 50 mcg by mouth daily before breakfast. amitriptyline (ELAVIL) 100 mg tablet Take 100 mg by mouth daily at bedtime. spironolactone (ALDACTONE) 50 mg tablet Take 50 mg by mouth once daily. cloNIDine HCl (CATAPRES) 0.1 mg tablet Take 0.1 mg by mouth twice daily. guanFACINE (INTUNIV) 2 mg ER 24 hr tablet(s) Take 2 mg by mouth once daily. febuxostat (ULORIC) 40 mg tab Take by mouth once daily. metoprolol succinate ER (TOPROL XL) 25 mg 24 hr tablet Take 25 mg by mouth once daily. pantoprazole (PROTONIX) 40 mg injection Inject 40 mg intravenously DAILY (6 AM). Cyclobenzap and Irritant Cntr Irr2 10 mg kit linaCLOtide (LINZESS) 290 mcg capsule Take by mouth DAILY (6 AM). ZOLMitriptan (ZOMIG) 2.5 mg tablet Take 2.5 mg by mouth as needed. amLODIPine (NORVASC) 2.5 mg tablet Take by mouth once daily. dronabinol (MARINOL) 5 mg capsule Take 5 mg by mouth twice daily before meals. hyoscyamine sublingual (LEVSIN SL) 0.125 mg Dissolve 0.125 mg under the tongue every 4 hours as needed. cyproheptadine (PERIACTIN) 4 mg tablet Take 4 mg by mouth three times daily as needed. IPRATROPIUM BROMIDE INHALATION Inhale as instructed every 4 hours as needed. montelukast sodium(SINGULAIR 10 MG TAB) Take one(1) tablet daily at bedtime. 0 0 cetirizine hcl(ZYRTEC 10 MG TAB) Take one(1) tablet daily. 0 0 ALBUTEROL SULFATE 0.63 MG/3 ML NEB SOLUTION as necessary 0 0 ALBUTEROL 90 MCG/ACTUATION AEROSOL INHALER Inhale one(1) - two(2) puffs four(4) times a day as needed for wheezing and shortness of breath. 0 0 pantoprazole sodium(PROTONIX 40 MG TAB) Take one(1) tablet daily. 0 0 promethazine hcl(PHENERGAN 25 MG TAB) as necessary 0 0 No current facility-administered medications for this visit. Problem List ACTIVE PROBLEM LIST Unspecified Asthma(493.90) Cervical Spondylosis Without Myelopathy Esophageal Reflux Irritable Bowel Syndrome ALLERGIES: ALLERGIES Allergen Reactions Egg Shortness of Breath Gluten Shortness of Breath Lactose Shortness of Breath Soy Shortness of Breath Arthrotec 50 [Diclo* Aspartame Itching Aspirin Codeine Depo-Provera [Medro* Elavil [Amitriptyli* Eryc [Erythromycin] Ibu-200 [Ibuprofen] Imitrex [Sumatripta* Latex Medrol [Methylpredn* Msg [Other] And artificial sweeteners Nubain [Nalbuphine * Nutrasweet [Other] Intolerance Prednisone Relafen [Nabumetone] Toradol [Ketorolac * Trazodone Vicodin [Hydrocodon* Vioxx [Rofecoxib] Zanaflex [Tizanidin* PHYSICAL EXAM: BP 157/80 Pulse 80 LMP 01/31/2011 General appearance: well appearing, alert, and in no acute distress Skin: skin color, texture, turgor normal, no rashes or lesions Head: normal Ears: Not examined Carotid Auscultation: Without bruits Lungs: lungs clear to auscultation no wheezing or rhonchi CVS: Negative. RRR without murmur MINI-MENTAL STATE EXAMINATION (MMSE) Make the patient comfortable and establish rapport. Ask questions in the order listed. Total possible score is 30. ORIENTATION 1. What is the (year) (season) (date) (day) (month)? Max score=5 Patient's score=5 2. Where are we? (state) (county) (town or city) (hospital) (floor)? Max score=5 Patient's score=5 REGISTRATION Ask the patient if you may test his/her memory. Then say the names of 3 unrelated objects, clearly and slowly, about one second for each (eg, apple, table, bibiana). After you have said all 3, ask him/her to repeat them. This first repetition determines the score(0-3), but keep saying them until he/she can repeat all 3, up to 6 trials. Max score=3 Patient's score=3 ATTENTION AND CALCULATION Ask the patient to begin with 100 and count backwards by 7. Stop after 5 subtractions (93, 86, 79, 72, 65). Score the total number of correct answers. If the patient cannot or will not perform the serial 7s task, ask him/her to spell the word WORLD backwards. The score is the number of letters in the correct order (eg, DLROW=5; DLRW=4; DLORW, DLW=3; OW=2; DRLWO=1). Max score=5 Patient's score=5 RECALL Ask the patient to recall the 3 items repeated above (eg, apple, table, bibiana). Max score=3 Patient's score=2 LANGUAGE Naming: Show the patient a wristwatch and ask him/her what it is. Repeat for pencil. Max score=2 Patient's score=2 Repetition: Ask the patient to repeat the phrase No ifs, ands, or buts: after you. Max score=1 Patient's score=1 3-Stage Command: Give the patient a piece of blank paper and ask him/her to take a piece of paper in your right hand, fold it in half, put it on the floor. Score 1 point for each part correctly executed. Max score=3 Patient's score=3 Reading: On a blank piece of paper, print the sentence CLOSE YOUR EYES in letters large enough for the patient to see clearly. Ask him/her to read it and do what it says. Score 1 point only if he/sheactually closes his/her eyes. Max score=1 Patient's score=1 Writing: Give the patient a blank piece of paper and ask him/her to write a sentence. Do not dictate a sentence; it is to be written spontaneously. It must contain a subject and verb and be sensible.Correct grammar and punctuation are not necessary. Max score=1 Patient's score=1 Copying: Ask the patient to copy the figure of intersecting pentagons exactly as it is. All 10 angles must be present and 2 must intersect to form a 4-sided figure to score 1 point. Tremor and rotation are ignored. Max score=1 Patient's score=1 MAXIMUM TOTAL SCORE = 30 TOTAL SCORE = 29/30 Suggested guideline for determining the severity of cognitive impairment: Mild: MMSE>21 Moderate: MMSE 10-20 Severe: MMSE<9 Expected decline in MMSE scores in untreated mild to moderate Alzheimer's patient is 2 to 4 points per year. *Adapted from Folstein et al.1 and Tadeo2. (c) 1997 [employer] Used withpermission. References: 1. Folstein MF, Folstein SE, [place]. Mini-Mental State: a practical method for grading the cognitive state of patients for the clinician. J Psychiatr Res. 1975; 12:189-198. 2. JR Jordy, Nathaly MF, Mini-Mental State Examination (MMSE). Psychopharm Bull. 1988;24:689-692. 3. Romeo JT, Lara FJ, Kate RD, Eleazar A, Tobi F. Neuropsychological function in Alzheimer's disease: pattern of impairment and rates of progression. Arch Neurol. 1988;45:263-268. 4. Dylan JIM, Kymberly B,Win S-P, Kevin BRITO. Predictors of cognitive and functional progression in patients with probable Alzheimer's disease. Neurology. 1992;42:4451-1413. Neurological exam: Mental Status: alert, oriented to person, place and time and follows commands. Language: Comprehension intact? (simple commands - Yes, complex commands Yes), Fluency intact? Yes,repetition intact? Yes, reading intact? Yes, naming intact? Yes. Cranial Nerves: CNII: Visual acuity normal, visual moody full to confrontation CNIII, IV, : Pupils equal, round and reactive to light, full extraoccular movements without nystagmus CN V: Facial sensation intact bilaterally to fine touch and pinprick, masseter 5/5 CN VII: Facial muscles symmetric and strong CN VIII: Hears finger rub well bilaterally CN IX: Deferred CN X: Palate elevates symmetrically CN XI: Full strength shoulder shrug bilaterally CN XII: Tongue protrusion full and midline Non-Dilated Fundiscopic Examination: Deferred Deferred Examination Motor Exam: Muscle bulk: Normal b/l Muscle Tone: Normal Muscle Power: Muscle Power: Moved all four extremities spontaneously with no focal motor weakness Reflexes: Symmetrically present Plantars: flexor Sensation: Sensation is intact to light touch Coordination: finger-to- nose-finger intact bilaterally. Gait: Patient's gait is normal and can heel and toe walk Johann Hayes MD I spent a total of 60 minutes on the date of the service which included preparing to see the patient, [id number] patient care, completing clinical documentation, obtaining and/or reviewing separately obtained history, performing a medically appropriate examination, counseling and educating the pat ient/family/caregiver, and ordering medications, tests, or procedures. Signature Johann Hayes MD Staff, Neurology May 07, 2022 10:50 AM documented in this encounterM[facility]07[facility]13-[facility] Miscellaneous Notes* Telephone Encounter - Diane Emerson Tech (Rt) - 02/20/2011 4:59 PM EDT Contacted Meredith Alcantar and Confirmed appt. for the Myelo scheduled on 2010 Instructions given as follows: Do not eat any solid food after 7am (4hrs pre-proc myelo only) May take medications as usual except ASA, Plavix, Coumadin. Arrive to [facility] at 10:30 with a responsible driver license examiner. If any questions arise, please call #[phone]. documented in this encounterMckitrick HospitalDischarge summary Author Shyam Echevarria [facility] Note Date/Time August 16, 2024 4: 59pm [facility] [address] [place] [address] Discharge Summary Signed Patient: Meredith Chaidez MR#: [id number] : 1970 Acct:[id number] Age/Sex: 54 / F Adm Date: 5 Loc: Room: [address] [place] [address]: Shyam Echevarria MD Copies to: Shyam Echevarria MD [facility]~ Providers Date of Discharge: 08/16/24 Discharging Provider: Shyam Echevarria Primary Care Provider: Services Family [facility] Discharge Diagnosis (1) Acute on chronic hypoxic respiratory failure: Final Diagnosis Final Discharge Diagnosis: Acute on chronic hypoxic respiratory failure in setting of asthma exacerbation Summary Hospital Course Hospital course: This patient is a 54-year-old female with significant past medical history of asthma, multiple allergies, autoimmune disease who presented emergency department this evening after similar presentation last evening and AMA discharge. She is again short of breath with significant wheeze. She is again severely had significant distress with respiratory rate of 36 in the ER and 87% saturation on room air, 91% on 5 L with eventual improvement after high flow nasal cannula provided. Chest x-ray appears unchanged from yesterday's. Labs reveal a unremarkable CBC, mild hyponatremia 135, hypochloremia 97 notably a rise in serum bicarbonate 32.1. Normal LFTs. Patient has a complex allergy andallergy history and has seen immunology here locally in addition to pulmonology and rheumatology. Nebulized breathing treatments with low albuterol were provided again as ipratropium is also reported as allergy/intolerance but further review indicates this is a relative contraindication for history of glaucoma. Most recent pulmonology note skin test done at art psychotherapist office was positive for hydrocortisone and methylprednisolone but negative for Decadron andKenalog. Patient was supposed to have Decadron challenge though this has not been completed yet. Additionally reported allergies to inhaled corticosteroids as well including that of Pulmicort, Advair, Symbicort. She was recommended to continue her antiallergy medication prescribed for seasonal allergies and rhinorrhea and continue antiacid control of GERD precipitating respiratory issues with PPI or [id number] famotidine. [facility] During the hospitalization her symptoms improved gradually and has been weaned down to 3 to 4 L by nasal cannula. She has been stable from breathing standpoint and is comfortable [facility]. She is recommended to follow-up with PCP, art psychotherapist and analytics specialist. Condition Condition at Discharge: Stable Time Spent with Patient Time spent providing/coordinating discharge services (# min): 38 Discharge Plan Discharge Plan Patient Disposition: Home Activity: Ambulate as Tolerated Diet: Low-Sodium and Low-Cholesterol Additional Instructions: Follow-up with Dr. Reyes as previously scheduled on 08/20/24 Instructions: Know your Meds Prescriptions: Continued albuterol sulfate 2.5 mg /3 mL (0.083 %) solution for nebulization 2.5 mg inhalation Q4-6H PRN (Reason: Shortness Of Breath Or Wheezing) 30 DaysQty: 360 11RF Rx Instructions: DX J44.9 COPD albuterol sulfate 90 mcg/actuation HFA aerosol inhaler 2 puff INHALATION Q4H PRN (Reason: Shortness Of Breath) 30 Days Qty: 8.5 11RF albuterol sulfate [Ventolin HFA] 90 mcg/actuation HFA aerosol inhaler 2 inh inhalation Q4H PRN (Reason: Shortness Of Breath) 30 Days Qty: 18 11RF Rx Instructions: Pt needs ventolin HFA clonidine HCl 0.1 mg Tablet 0.1 mg PO DIRECTED PRN (Reason: Blood Pressure) Rx Instructions: > 180/110 amlodipine 2.5 mg tablet 2.5 mg PO DAILY Patient Comments: take 1 tablet by mouth every morning levothyroxine 50 mcg tablet 50 mcg PO DAILY pantoprazole 40 mg tablet,delayed release (DR/EC) 40 mg PO BID montelukast 10 mg tablet 10 mg PO HS febuxostat 40 mg tablet 40 mg PO HS promethazine 25 mg tablet 25 mg PO Q6HR PRN (Reason: Nausea) ondansetron 4 mg tablet,disintegrating 4 mg PO TID PRN (Reason: nausea and vomiting) Patient Comments: DISSOLVE 1 TABLET ON THE TONGUE THREE TIMES A DAY NEEDED FOR NAUSEA FOR 7 DAYS cholecalciferol (vitamin D3) 125 mcg (5,000 unit) Tablet 125 mcg PO DAILY diphenhydramine HCl [Benadryl] 25 mg Capsule 25 mg PO BID PRN (Reason: Allergy Symptoms) cetirizine 10 mg tablet 20 mg PO DAILY gabapentin 300 mg capsule 600 mg PO TID Patient Comments: TAKE 2 CAPSULES BY MOUTH 3 TIMES A DAY NEEDED alprazolam 0.5 mg tablet 0.5 mg PO QAM PRN (Reason: anxiety) nortriptyline 10 mg capsule 10 mg PO QHS hydroxyzine HCl 25 mg tablet 25 mg PO BID PRN (Reason: itching) (DME) CPAP (Continuous Positive Airway Pressure) Unit See Rx Instructions .Route Rx Instructions: As directed DME [employer] thiamine HCl (vitamin B1) 100 mg tablet 100 mg PO DAILY theophylline 300 mg tablet extended release 12 hr 300 mg PO Q12HR alprazolam 1 mg tablet 1 mg PO HS PRN (Reason: sleep) Rx Instructions: at night as directed epinephrine 0.3 mg/0.3 mL auto-injector 0.3 ml subcut .prn metoprolol succinate 50 mg tablet extended release 24 hr 50 mg PO DAILY delta 8 1 tab PO DIRECTED PRN (Reason: pain) Rx Instructions: 1 tab orally; Gummie CBD for pain Estroven 155 mg capsule 1 cap PO DAILY Follow Up: [facility] [Primary Care Provider] - 08/19/24 10:30 am (Post hospital appointment. Please call to reschedule if needed.) Exam Physical Exam Vital Signs: Temp Pulse Resp BP Pulse Ox O2 Del Method O2 Flow Rate 98.3 F 79 20 134/81 92 L Nasal Cannula 1 08/16/24 08:00 08/16/24 16:24 08/16/24 16:24 08/16/24 16:00 08/16/24 16:00 08/16/24 16:00 08/16/24 16:00 FiO2 55 08/14/24 08:20 Narrative: Physical Examination: GENERAL APPEARANCE: Alert, up in bed AAOx3 CARDIAC: Normal S1 and S2. No S3, S4 or murmurs. LUNGS: Patient has scattered monophonic wheezing ABDOMEN: Positive bowel sounds. Soft, nontender. No guarding or signs of an acute abdomen MUSCULOSKELETAL: No joint erythema or tenderness. EXTREMITIES: No clubbing, cyanosis or edema NEUROLOGICAL: No focal deficits SKIN: Skin normal color, texture and turgor with no lesions or eruptions. PSYCHIATRIC: Appropriate mood and affect Diagnostic Studies Completed and Pending Studies Pending studies at discharge: 08/14/24 09:13 MISC LAB Routine 08/17/24 05:00 Basic Metabolic Panel [CHEM] IN AM Complete Blood Count Auto Diff IN AM Labs on day of discharge: 08/16/24 04:53: Corrected WBC 6.6, Uncorrected WBC Count 6.6, RBC 4.68, Hgb 13.9, Hct 40.6, MCV 86.9, MCH 29.7, MCHC 34.1, RDW 13.4, Plt Count 271, MPV 8.3, Neut % (Auto) 47.9, Lymph % (Auto) 30.6, [place] % (Auto) 10.7, Eos % (Auto) 9.5, Baso % (Auto) 1.3, Nucleat RBC Rel Count 0.1, Neut # (Auto) 3.2, Lymph # (Auto) 2.0, [place] # (Auto) 0.7, Eos # (Auto) 0.6 H, Baso # (Auto) 0.1, PHA Creatinine Clear 73.57, Sodium 136, Potassium 3.7, Chloride 100, Carbon Dioxide 28.9, Anion Gap 10.8, BUN 17, Creatinine 0.90, Est GFR (CKD-EPI) > 60.0, Glucose 99, Calcium 9.5 Documented By: Shyam Echevarria MD 08/16/241656 Signed By: <Electronically signed by Shyam Echevarria MD> 08/16/24 1659 [facility] Work Phone: Evaluation + Plan note Future Appointments Appointment Date:03/04/2023 11:00:00 AM Scheduled Provider:Eligio Ford MD Location:[facility] Appointment Type: Open Appointment Date:03/26/2023 01:00:00 PM Scheduled Provider: Location:[facility] Appointment [facility]: Medicare Wellness [facility] Diagnosis Forgetfulness- Primary Other general symptoms Other dysphagia documented in this encounter [facility] HospitalEvaluation noteNo assessment information availableFulton [facility] Work Phone: Evaluvhezi note* Diagnosis Onset Date Resolution Status Acute dehydration acute Cephalgia acute Chest pain acute Epigastric abdominal pain ac meka Hypertension acute [facility] Work Phone: evaluation note* Diagnosis Lumbosacral radiculopathy at L5- Primary Numbness and tingling Disturbance of skin sensation Intractable chronic migraine without aura and without status migrainosus (CMS/HCC) Carpal tunnel syndrome, bilateral Carpal tunnel syndrome Idiopathic progressive polyneuropathy documented [facility] encounter [facility]* Diagnosis Onset Date Resolution Status GERD (gastroesophageal reflux disease) acute Reactive airway disease acut e Seasonal allergic rhinitis a [facility] Work Phone: Evaluation note* Diagnosis Onset Date Resolution Status GERD (gastroesophageal reflux disease) acute Reactive airway disease acut e Seasonal allergic rhinitis a cute Sleep apnea acute [facility] Work Phone: Evaluation note* Author Jorge TyUniversity [facility]als [facility] Authored February 25, 2024 2:16 pm 53-year-old female referred to the GI clinic for evaluation of abdominal pain. Patient has chronic right-sided abdominal pain. She has intermittent dysphagia for the last 2 years. She has chronic heartburn which she was mostly controlled by pantoprazole 40 mg twice daily. She had recent LFTs which were normal and she had recent CT abdomen which showed hepatic steatosis otherwise it was unremarkable -Regarding fatty liver, will arrange for FibroScan and will check viral hepatitis serologies. Patient has obesity, hypertension, and hypothyroidism which are risk factors for MASLD. -Regarding abdominal pain dysphagia and chronic heartburn will arrange for EGD to assess for Savage's and to assess etiology of patient's symptoms [facility] Work Phone: Evaluation note* Diagnosis Onset Date Resolution Status Allergy to methylprednisolone acute Asthma refractory to systemic steroids acute GERD (gastroesophageal reflux disease) acute NICOLE (obstructive sleep apnea) acute Reactive airway disease acut e Seasonal allergic rhinitis a [facility] Work Phone: Evaluation note* Diagnosis Onset Date Resolution Status Allergy to methylprednisolone acute Asthma refractory to systemic steroids acute GERD (gastroesophageal reflux disease) acute NICOLE (obstructive sleep apnea) acute Reactive airway disease acut e Seasonal allergic rhinitis a cute Asthma refractory to systemic steroids acute NICOLE (obstructive sleep apnea) acute Mild pulmonary valve regurgitation noneactive [facility] Work Phone: Evaluation note* Diagnosis Severe persistent asthma, unspecified whether complicated- Primary documented in this encounter [facility] [place] [facility]* Diagnosis Severe persistent asthma with status asthmaticus- Primary Unspecified asthma, with status asthmaticus documented in this encounter [facility] [place] [facility]* Diagnosis Idiopathic progressive polyneuropathy- Primary Spastic hemiplegia affecting right dominant side, unspecified etiology ([facility]) [facility] encounter [facility] [place] [facility]* Diagnosis Severe persistent asthma, unspecified whether complicated- Primary documented in this encounter [facility] [place] [facility]* Diagnosis Severe persistent asthma, unspecified whether complicated- Primary [facility] [place] [facility]* Diagnosis Intractable migraine with aura with status migrainosus ([facility])- Primary Migraine with aura, with intractable migraine, so stated, with status migrainosus Idiopathic progressive polyneuropathy Oropharyngeal dysphagia Dysphagia, oropharyngeal phase Spastic hemiplegia affecting right dominant side, unspecified etiology ([facility]) [facility] [place] [facility]* Diagnosis Asthma exacerbation Unspecified asthma, with exacerbation Multiple drug allergies Other drug allergy Nonintractable headache, unspecified chronicity pattern, unspecified headache type BIGG (acute kidney injury) ([facility]) Acute kidney failure, unspecified Hypercalcemia Severe persistent asthma with exacerbation Unspecified asthma, with exacerbation Asthma exacerbation Unspecified asthma, with exacerbation [facility] [place] [facility]* Diagnosis Moderate persistent asthma, unspecified whether complicated- Primary [facility] [place] [facility]* Diagnosis Moderate persistent asthma, unspecified whether complicated- Primary [facility] [place] [facility]* Diagnosis Moderate persistent asthma, unspecified whether complicated- Primary [facility] [place] [facility]* Diagnosis Laryngeal candidiasis- Primary Other candidiasis of other specified sites Dysphagia, unspecified type Inducible laryngeal obstruction (ILO) Allergic rhinitis, unspecified seasonality, unspecified trigger LPRD (laryngopharyngeal reflux disease) Other diseases of larynx Refractory obstruction of nasal airway Other diseases of nasal cavity and sinuses DNS (deviated nasal septum) Deviated nasal septum Impacted cerumen of right ear Impacted cerumen [facility] [place] [facility]* Diagnosis Severe persistent asthma, unspecified whether complicated- Primary Rheumatoid arthritis involving both hands, unspecified whether rheumatoid factor present ([facility]) NICOLE on CPAP Obstructive sleep apnea (adult) (pediatric) Encounter for therapeutic drug level monitoring Encounter for therapeutic drug monitoring [facility]* Diagnosis Polyarthralgia- Primary Pain in joint, multiple sites Severe persistent asthma, unspecified whether complicated Rash and nonspecific skin eruption Rash and other nonspecific skin eruption [facility] Diagnosis Polyarthralgia Pain in joint, multiple sites Severe persistent asthma, unspecified whether complicated Rash and nonspecific skin eruption Rash and other nonspecific skin eruption [facility] Diagnosis Severe persistent asthma without complication- Primary Drug allergy, multiple Other drug allergy [facility] Diagnosis Polyarthralgia- Primary Pain in joint, multiple sites Rash and nonspecific skin eruption Rash and other nonspecific skin eruption [facility] [place] [facility]* Diagnosis Severe persistent asthma without complication- Primary [facility] Diagnosis Dyspepsia and disorder of function of stomach- Primary Dyspepsia and other specified disorders of function of stomach Personal history of adenomatous and serrated colon polyps Fatty liver Other chronic nonalcoholic liver disease [facility] [place] [facility]* Diagnosis Severe persistent asthma without complication (HCC)- Primary Allergic rhinitis, unspecified seasonality, unspecified trigger NICOLE (obstructive sleep apnea) Obstructive sleep apnea (adult) (pediatric) Gastroesophageal reflux disease with esophagitis without hemorrhage [facility] [place] [facility]* Diagnosis Fatty liver- Primary Other chronic nonalcoholic liver disease [facility]* Diagnosis Fatty liver Other chronic nonalcoholic liver disease [facility]* Diagnosis Refractory obstruction of nasal airway Other diseases of nasal cavity and sinuses DNS (deviated nasal septum) Deviated nasal septum [facility] [place] [facility]* Diagnosis Dyspepsia and disorder of function of stomach Dyspepsia and other specified disorders of function of stomach Personal history of adenomatous and serrated colon polyps [facility] [place] [facility]* Diagnosis Fatty liver- Primary Other chronic nonalcoholic liver disease Dietary counseling and surveillance Dietary surveillance and counseling Irritable bowel syndrome with constipation Irritable bowel syndrome [facility] Diagnosis Nonallergic vasomotor rhinitis- Primary Allergic rhinitis, cause unspecified Chronic rhinitis Food intolerance in adult Other specified intestinal malabsorption Severe persistent asthma, uncomplicated (HCC) Unspecified asthma Laryngeal disorder Unspecified disease of larynx Adverse effect of drug, subsequent encounter [facility] Diagnosis Idiopathic progressive polyneuropathy [facility] Diagnosis Severe persistent asthma without complication (HCC)- Primary [facility] [place] [facility]* Diagnosis NICOLE (obstructive sleep apnea)- Primary Obstructive sleep apnea (adult) (pediatric) Degeneration of intervertebral disc of lumbar region with discogenic back pain and lower extremity pain [facility] [place] [facility]* Diagnosis Severe persistent asthma without complication (HCC)- Primary Numbness Disturbance of skin sensation Dysphagia, unspecified type Inducible laryngeal obstruction (ILO) ILD (interstitial lung disease) (HCC) Postinflammatory pulmonary fibrosis Interstitial pulmonary disease (HCC) Postinflammatory pulmonary fibrosis [facility] [place] [facility]* Diagnosis Oropharyngeal dysphagia- Primary Dysphagia, oropharyngeal phase [facility] [place] [facility]* Diagnosis Dysphagia, unspecified type [facility] Author Luz Walker [facility] June 02, 2023 1:21am Note Date/Time June 02, 2023 1 :15am [facility] [address] [place] [address] Hospitalist H&P Signed Patient: Meredith Chaidez MR#: [id number] : 1970 Acct:[id number] Age/Sex: 52 / F Adm Date: 3 Loc: Room: [address] [place] [address] Type: ADM INOo Attending Dr: Luz Walker MD Copies to: [facility] Luz Walker MD~ HPI DATE OF EXAMINATION: 06/02/23 CHIEF COMPLAINT: Chest pain HISTORY OF PRESENT ILLNESS: 52 years old female without underlying history of coronary artery disease presented with complaint of chest pain. According to the patient started today,on and off, pressure sensation squeezing-like in the middle of the chest, worsened with exertion. But it can start at rest as well. She denies any underlying coronary artery disease, she did have a cardiac stress test 5 years ago. Also she complained of part that her heart is racing and shortness of breath. She denies any lower extremity swelling. He also complains of abdominal pain. But no nausea no vomiting. No diarrhea. No dysuria urgency frequency EKG showed normal sinus rhythm without ischemic changes 10 systems are reviewed and are negative apart as mentioned in H&P General -patient is awake alert oriented ?3, does not appear to be in distress HEENT -normal oropharyngeal mucosa without any ulcers or exudates Cardiovascular -S1 plus S2, with regular rate, without any murmurs, gallops, rubs Pulmonary -clear to auscultation bilaterally Gastrointestinal -abdomen is soft, nondistended, nontender, bowel sounds positive, no rigidity, no rebound Genitourinary -deferred Musculoskeletal -no back tenderness, no significant joint swelling, full range of motion Neurological -no focal Skin -no significant ulcers, no rash noted Extremities - no edema in bilateral lower extremities noted Psychiatry - appropriate affect Laboratory work up, imaging studies reviewed Previous records in the computer system reviewed [facility] Medical History (Updated 06/02/23 @ 00:55 by Paras Herndon DO) Asthma Chronic pain COPD (chronic obstructive pulmonary disease) Fibromyalgia Gastritis GERD (gastroesophageal reflux disease) Glaucoma Hypertension Hypothyroid Migraine Pancreatitis Trouble swallowing Surgical History (Updated 06/01/23 @ 19:01 by Mya Grey RN) H/O tubal ligation H/O: hysterectomy Hx of cholecystectomy Hx of neck surgery Family History Grandparent Breast cancer Diabetes Social History Smoking Status: Former smoker Tobacco Type: cigarettes Substance Use Type: CBD Oil Substance Abuse Comment: medical marijuana Meds Medications and Allergies Allergies adhesive tape Allergy (Verified 06/01/23 18:59) Rash aspirin Allergy (Verified 06/01/23 18:59) Hives gabapentin [From Neurontin] Allergy (Verified 06/01/23 18:59) Hives latanoprost Allergy (Verified 06/01/23 18:59) Rash medroxyprogesterone [From Depo-Provera] Allergy (Verified 06/01/23 18:59) Hives nabumetone [From Relafen] Allergy (Verified 06/01/23 18:59) Hives nalbuphine [From Nubain] Allergy (Verified 06/01/23 18:59) Hives rizatriptan [From Maxalt] Allergy (Verified 06/01/23 18:59) Hives rofecoxib [From Vioxx] Allergy (Verified 06/01/23 18:59) Hives sumatriptan [From Imitrex] Allergy (Verified 06/01/23 18:59) Hives bisoprolol [From Ziac] Adverse Reaction (Verified 06/01/23 18:59) Vomiting cefdinir Adverse Reaction (Verified 06/01/23 18:59) Vomiting erythromycin base Adverse Reaction (Verified 06/01/23 18:59) Vomiting fluticasone [From Advair Diskus] Adverse Reaction (Verified 06/01/23 18:59) Hives heparin Adverse Reaction (Verified 06/01/23 18:59) Swelling hydrochlorothiazide [From Ziac] Adverse Reaction (Verified 06/01/23 18:59) Vomiting ketorolac [From Toradol] Adverse Reaction (Verified 06/01/23 18:59) Nausea latex Adverse Reaction (Verified 06/01/23 18:59) Rash morphine Adverse Reaction (Verified 06/01/23 18:59) Hives NSAIDS (Non-Steroidal Anti-Inflamma Adverse Reaction (Verified 06/01/23 18:59) Nausea quetiapine [From Seroquel] Adverse Reaction (Verified 06/01/23 18:59) Vomiting salmeterol [From Advair Diskus] Adverse Reaction (Verified 06/01/23 18:59) Hives tizanidine [From Zanaflex] Adverse Reaction (Verified 06/01/23 18:59) Unknown Reaction warfarin [From Coumadin] Adverse Reaction (Verified 06/01/23 18:59) Unknown Reaction STEROIDS Adverse Reaction (Uncoded 06/01/23 18:59) Migraine Home Medications albuterol sulfate 90 mcg/actuation aerosol inhaler 2 inh inhalation Q6H PRN Shortness Of Breath 04/09/21 [History Confirmed 04/09/21] amitriptyline 100 mg tablet 100 mg PO HS 04/09/21 [History Confirmed 04/09/21] amlodipine 2.5 mg tablet 2.5 mg PO DAILY 04/09/21 [History Confirmed 04/09/21] clonidine HCl 0.1 mg tablet 0.1 mg PO DIRECTED 04/09/21 [History Confirmed 04/09/21] cyclobenzaprine 10 mg tablet 10 mg PO Q8H 04/09/21 [History Confirmed 04/09/21] dextroamphetamine-amphetamine ER 15 mg 24hr capsule,extend release (Adderall XR)15 mg PO DAILY 04/09/21 [History Confirmed 04/09/21] dronabinol 10 mg capsule 10 mg PO BID 04/09/21 [History Confirmed 04/09/21] febuxostat 40 mg tablet 40 mg PO DAILY 04/09/21 [History Confirmed 04/09/21] hyoscyamine sulfate 0.125 mg sublingual tablet 0.125 mg sublingual BID PRN Abdominal Discomfort 04/09/21 [History Confirmed 04/09/21] levothyroxine 50 mcg tablet 50 mcg PO DAILY 04/09/21 [History Confirmed 04/09/21] metoprolol succinate 25 mg tablet,extended release 24 hr 25 mg PO BID 04/09/21 [History Confirmed 04/09/21] montelukast 10 mg tablet 10 mg PO DAILY 04/09/21 [History Confirmed 04/09/21] pantoprazole 40 mg tablet,delayed release 40 mg PO BID 04/09/21 [History Confirmed 04/09/21] plecanatide 3 mg tablet (Trulance) 3 mg PO DAILY 04/09/21 [History Confirmed 04/09/21] sucralfate 1 gram tablet 1 g PO TID 04/09/21 [History Confirmed 04/09/21] theophylline 300 mg tablet,extended release,12 hr 300 mg PO BID 04/09/21 [History Confirmed 04/09/21] zolmitriptan 2.5 mg disintegrating tablet 2.5 mg PO DIRECTED 04/09/21 [History Confirmed 04/09/21] Exam Physical Exam Vital Signs: Temp Pulse Resp BP Pulse Ox O2 Del Method 37.1 C 101 H 20 140/84 96 Room Air 06/01/23 19:03 06/02/23 00:32 06/01/23 22:42 06/01/23 22:42 06/01/23 22:42 06/01/23 22:42 Results Lab Results Labs: Laboratory Last Values Corrected WBC 8.0 X10E3/uL (3.8-11.6) 06/01/23 19:24 Uncorrected WBC Count 8.0 x10E3/uL (3.8-11.6) 06/01/23 19:24 RBC 5.23 X10E6/uL (3.60-5.00) H 06/01/23 19:24 Hgb 15.9 g/dL (11.8-15.4) H 06/01/23 19: Hct 46.4 % (34.0-46.4) 06/01/23 19: MCV 88.7 fl (80-100) 06/01/23 19: MCH 30.4 pg (24.7-34.3) 06/01/23 19: MCHC 34.3 g/dL (32.0-35.0) 06/01/23: RDW 14.2 % (11.9-15.3) 06/01/23 19: Plt Count 362 x10E3/uL (150-450) 06/01/23 19: MPV 8.8 fl (6.3-10.7) 06/01/23 19: Neut % (Auto) 48.7 % (.) 06/01/23 19: Lymph % (Auto) 42.1 % (.) 06/01/23: [place] % (Auto) 7.2 % (.) 06/01/23: Eos % (Auto) 0.9 % (.) 06/01/23: Baso % (Auto) 1.1 % (.) 06/01/23: Nucleat RBC Rel Count 0.1 /100 WBC (0-0.5) 06/01/23: Neut # (Auto) 3.9 x10E3/uL (1.8-7.7) 06/01/23 19: Lymph # (Auto) 3.4 x10E3/uL (1.00-4.8) 06/01/23: [place] # (Auto) 0.6 x10E3/uL (0.0-0.8) 06/01/23 19: Eos # (Auto) 0.1 x10E3/uL (0.0-0.45) 06/01/23: Baso # (Auto) 0.1 x10E3/uL (0.0-0.2) 06/01/23 19: Monocyte Dist Width 18.27 % (0.00-20.00) 06/01/23 19: PT 13.1 Seconds (9.0-12.9) H 06/01/23: INR 1.1 06/01/23 19:24 APTT 27.6 Seconds (25.1-36.5) 06/01/23 19:24 PHA Creatinine Clear 68.22 06/01/23 19:24 Sodium 134 mmol/L (136-145) L 06/01/23 19:24 Potassium 3.2 mmol/L (3.5-5.1) L 06/01/23 19:24 Chloride 100 mmol/L (98-107) 06/01/23 19:24 Carbon Dioxide 17.7 mmol/L (21.0-31.0) L 06/01/23 19:24 Anion Gap 19.5 mEq/L (6.0-15.0) H 06/01/23 19:24 BUN 12 mg/dL (7-25) 06/01/23 19:24 Creatinine 0.96 mg/dL (0.60-1.20) 06/01/23 19:24 Est GFR (CKD-EPI) > 60.0 mL/Min 06/01/23 19:24 Glucose 97 mg/dL (70-100) 06/01/23 19:24 POC Glucose 98 mg/dl 06/01/23 23:27 Calcium 10.5 mg/dL (8.6-10.3) H 06/01/23 19:24 Total Creatine Kinase 102 U/L (30-223) 06/01/23 19:24 Troponin I High Sens 3.2 pg/mL (0.0-15.0) 06/01/23 23:12 B-Natriuretic Peptide 17.0 pg/mL (5-100) 06/01/23 19:24 Lipase 18.0 U/L (11.0-82.0) 06/01/23 19:51 Assessment & Plan Assessment/Plan (1) Acute dehydration: Plan 1. Chest pain -without underlying history of coronary artery disease Admit to telemetry, continue with serial cardiac enzymes, repeat EKG in a.m., start aspirin Cardiology consult 2. Polycythemia, we will give hydration recheck in a.m. 3. Hypokalemia with hypovolemic hyponatremia, gentle hydration Recheck kidney 4. Hypercalcemia, check PTH and phosphorus Recheck in a.m. after hydration 5. Sinus tachycardia/palpitation Check TSH, theophylline level, magnesium We will check echocardiogram Add a D-dimer IP vs OBS Justification Based on differential dx, clinical care plan, and risk of adverse events, if untreated, in my clinical judgement this patient requires an acute care setting as: OBSERVATION because of an expectation of an under 2 midnight stay. Estimated length of stay (# of days): 3 Documented By: Luz Walker MD 06/02/23 0112 Signed By: <Electronically signed by Luz Walker MD> 06/02/23 0121 [facility] Work Phone: History and physical note Author Luz Walker [facility] April 28, 2024 11:46pm Note Date/Time April 28, 2024 11:43pm [facility] [address] [place] [address] Hospitalist H&P Signed Patient: Meredith Chaidez MR#: [id number] : 1970 Acct:[id number] Age/Sex: 53 / F Adm Date: 4 Loc: Room: [address] [place] [address] Type: ADM IN Attending Dr: Luz Walker MD Copies to: [facility] Luz Walker MD~ HPI DATE OF EXAMINATION: 04/28/24 CHIEF COMPLAINT: Shortness of breath and wheezing HISTORY OF PRESENT ILLNESS: 53 years old female with history of COPD and asthma, ex-smoker, presented with complaints of shortness of breath and wheezing. Patient has been having symptoms for 2 weeks. Recently she was diagnosed with sinusitis and was startedon antibiotic therapy, it seems like the treatment failed and antibiotic were switched to different which she is still taking. She also complains of cough but no sputum production. Denies any sore throat or rhinorrhea. To me she denied any chest pain. She is already feeling better after 3 breathing treatments. Patient denies any abdominal pain. No nausea no vomiting. Denies any urinary symptoms. Patient is allergic to multiple medication and clotting steroids. She has been evaluated by I johan oncologist. In emergency room she got hydrocortisone and she complained that her IV insertion site became red and swollen, she was concerned that it is allergy, however it was not. The IV line infiltrated, it was confirmed by ultrasound that it was not in the vein. IV line removed with improvement of the symptoms. Also patient complains of headaches, she does have migraine. 10 systems are reviewed and are negative apart from intermittently General -patient is awake alert oriented ?3, does not appear to be in distress HEENT -normal oropharyngeal mucosa without any ulcers or exudates Cardiovascular -S1 plus S2, with regular rate, without any murmurs, gallops, rubs Pulmonary -wheezing bilaterally Gastrointestinal -abdomen is soft, nondistended, nontender, bowel sounds positive, no rigidity, no rebound Genitourinary -deferred Musculoskeletal -no significant joint swelling Neurological -no focal Skin -no significant ulcers, no rash noted, I did not appreciate any allergic rashes, Extremities - no edema in bilateral lower extremities noted Psychiatry - appropriate affect Laboratory work up, imaging studies reviewed EKG personally reviewed by me normal sinus rhythm without acute ST-T wave changes, with QTc 420, ventricular rate 72 Previous records in the computer system reviewed Chest x-ray without acute findings [facility] Medical History Sleep apnea Seasonal allergic rhinitis History of kidney stones DAWOOD positive Asthma with COPD Reactive airway disease Migraine Hypertension Hypothyroid Gastritis GERD (gastroesophageal reflux disease) Chronic pain COPD (chronic obstructive pulmonary disease) Asthma Fibromyalgia Glaucoma Pancreatitis Surgical History History of tonsillectomy and adenoidectomy Hx of eye surgery stents in deb. eyes glaucoma Hx of neck surgery H/O: hysterectomy H/O tubal ligation Hx of cholecystectomy Family History Grandparent Breast cancer Diabetes Father COPD (chronic obstructive pulmonary disease) Hypertension Mother Heart disease Hypertension FH: mental illness mother Bipolar Arthritis Brother AA (alcohol abuse) Drug abuse Sister AA (alcohol abuse) Drug abuse Social History Smoking Status: Former smoker Tobacco Type: cigarettes Substance Use Type: None Substance Abuse Comment: CBD gummies Meds Medications and Allergies Allergies adhesive Allergy (Unknown, Verified 04/28/24 19:29) Rash aspirin Allergy (Unknown, Verified 04/28/24 19:29) Hives bisoprolol [From Ziac] Allergy (Unknown, Verified 04/28/24 19:29) Vomiting cefdinir Allergy (Unknown, Verified 04/28/24 19:29) Vomiting erythromycin base Allergy (Unknown, Verified 04/28/24 19:29) Vomiting eszopiclone [Lunesta] Allergy (Unknown, Verified 04/28/24 19:29) Unknown Reaction fluticasone [From Advair Diskus] Allergy (Unknown, Verified 04/28/24 19:29) Hives heparin Allergy (Unknown, Verified 04/28/24 19:29) Swelling hydrochlorothiazide [From Ziac] Allergy (Unknown, Verified 04/28/24 19:29) Vomiting ketorolac [From Toradol] Allergy (Unknown, Verified 04/28/24 19:29) Nausea latanoprost Allergy (Unknown, Verified 04/28/24 19:29) Rash latex Allergy (Unknown, Verified 04/28/24 19:29) Rash medroxyprogesterone [From Depo-Provera] Allergy (Unknown, Verified 04/28/24 19:29) Hives morphine Allergy (Unknown, Verified 04/28/24 19:29) Hives nabumetone [From Relafen] Allergy (Unknown, Verified 04/28/24 19:29) Hives nalbuphine [From Nubain] Allergy (Unknown, Verified 04/28/24 19:29) Hives NSAIDS (Non-Steroidal Anti-Inflamma Allergy (Unknown, Verified 04/28/24 19:29) Nausea prednisone Allergy (Unknown, Verified 04/28/24 19:29) Unknown Reaction pregabalin [From Lyrica] Allergy (Unknown, Verified 04/28/24 19:29) Unknown Reaction quetiapine [From Seroquel] Allergy (Unknown, Verified 04/28/24 19:29) Vomiting rizatriptan [From Maxalt] Allergy (Unknown, Verified 04/28/24 19:29) Hives rofecoxib [From Vioxx] Allergy (Unknown, Verified 04/28/24 19:29) Hives sumatriptan [From Imitrex] Allergy (Unknown, Verified 04/28/24 19:29) Hives tizanidine [From Zanaflex] Allergy (Unknown, Verified 04/28/24 19:29) Unknown Reaction warfarin [From Coumadin] Allergy (Unknown, Verified 04/28/24 19:29) Unknown Reaction acetaminophen [From Percocet] Allergy (Verified 04/28/24 19:29) Unknown Reaction cephalexin [From Keflex] Allergy (Verified 04/28/24 19:29) Unknown Reaction hydrocodone Allergy (Verified 04/28/24 19:29) Unknown Reaction methylprednisolone Allergy (Verified 04/28/24 22:38) Unknown Reaction oxycodone [From Percocet] Allergy (Verified 04/28/24 19:29) Unknown Reaction sulfamethoxazole [From Bactrim] Allergy (Verified 04/28/24 19:29) Unknown Reaction trimethoprim [From Bactrim] Allergy (Verified 04/28/24 19:29) Unknown Reaction codeine Adverse Reaction (Verified 04/28/24 19:29) Unknown Reaction diclofenac [From Arthrotec] Adverse Reaction (Verified 04/28/24 19:29) Unknown Reaction Home Medications albuterol sulfate 90 mcg/actuation aerosol inhaler 2 puff inhalation Q4H PRN Shortness Of Breath 04/09/21 [History Confirmed 03/02/24] amlodipine 2.5 mg tablet 2.5 mg PO DAILY 04/09/21 [History Confirmed 03/02/24] clonidine HCl 0.1 mg tablet 0.1 mg PO DIRECTED PRN Blood Pressure 04/09/21 [History Confirmed 03/02/24] febuxostat 40 mg tablet 40 mg PO HS 04/09/21 [History Confirmed 03/02/24] levothyroxine 50 mcg tablet 50 mcg PO DAILY 04/09/21 [History Confirmed 03/02/24] montelukast 10 mg tablet 10 mg PO HS 04/09/21 [History Confirmed 03/02/24] pantoprazole 40 mg tablet,delayed release 40 mg PO BID 04/09/21 [History Confirmed 03/02/24] cetirizine 10 mg tablet 10 mg PO DAILY 06/02/23 [History Confirmed 03/02/24] cholecalciferol (vitamin D3) 125 mcg (5,000 unit) tablet 125 mcg PO DAILY 06/02/23 [History Confirmed 03/02/24] diphenhydramine HCl 25 mg capsule (Benadryl) 25 mg PO BID PRN Allergy Symptoms 06/02/23 [History Confirmed 03/02/24] gabapentin 300 mg capsule 600 mg PO TID PRN Pain 06/02/23 [History Confirmed 03/02/24] ondansetron 4 mg disintegrating tablet 4 mg PO TID PRN nausea and vomiting 06/02/23 [History Confirmed 03/02/24] promethazine 25 mg tablet 25 mg PO Q6HR PRN Nausea 06/02/23 [History Confirmed 03/02/24] alprazolam 1 mg tablet 0.5 mg PO DAILY 01/27/24 [History Confirmed 03/02/24] delta 8 1 tab PO DIRECTED PRN pain 01/27/24 [History Confirmed 03/02/24] metoprolol succinate 50 mg tablet,extended release 24 hr 50 mg PO DAILY 01/27/24[History Confirmed 03/02/24] soy isoflavone-black cohosh root-magnolia bark 155 mg capsule (Estroven) cap PO 01/27/24 [History Confirmed 02/25/24] epinephrine 0.3 mg/0.3 mL injection, auto-injector subcut 02/25/24 [History Confirmed 02/25/24] albuterol sulfate 2.5 mg/3 mL (0.083 %) solution for nebulization 2.5 mg (3 mL) inhalation Q4-6H PRN Shortness Of Breath Or Wheezing 30 days #360 mL 04/22/24 [Rx] Exam Physical Exam Vital Signs: Temp Pulse Resp BP Pulse Ox O2 Del Method 36.9 C 76 20 140/85 98 Room Air 04/28/24 19:32 04/28/24 21:23 04/28/24 21:23 04/28/24 19:32 04/28/24 19:32 04/28/24 19:32 Results - Hospitalist H&P Lab Results Labs: Laboratory Last Values Corrected WBC 6.8 X10E3/uL (3.8-11.6) 04/28/24 21:53 Uncorrected WBC Count 6.8 x10E3/uL (3.8-11.6) 04/28/24 21:53 RBC 4.75 X10E6/uL (3.60-5.00) 04/28/24 21:53 Hgb 14.0 g/dL (11.8-15.4) 04/28/24 21:53 Hct 41.0 % (34.0-46.4) 04/28/24 21:53 MCV 86.4 fl (80-100) 04/28/24 21:53 MCH 29.6 pg (24.7-34.3) 04/28/24 21:53 MCHC 34.2 g/dL (32.0-35.0) 04/28/24 21:53 RDW 14.1 % (11.9-15.3) 04/28/24 21:53 Plt Count 283 x10E3/uL (150-450) 04/28/24 21:53 MPV 7.9 fl (6.3-10.7) 04/28/24 21:53 Neut % (Auto) 43.3 % (.) 04/28/24 21:53 Lymph % (Auto) 39.8 % (.) 04/28/24 21:53 [place] % (Auto) 9.0 % (.) 04/28/24 21:53 Eos % (Auto) 4.8 % (.) 04/28/24 21:53 Baso % (Auto) 3.1 % (.) 04/28/24 21:53 Nucleat RBC Rel Count 0.1 /100 WBC (0-0.5) 04/28/24 21:53 Neut # (Auto) 2.9 x10E3/uL (1.8-7.7) 04/28/24 21:53 Lymph # (Auto) 2.7 x10E3/uL (1.00-4.8) 04/28/24 21:53 [place] # (Auto) 0.6 x10E3/uL (0.0-0.8) 04/28/24 21:53 Eos # (Auto) 0.3 x10E3/uL (0.0-0.45) 04/28/24 21:53 Baso # (Auto) 0.2 x10E3/uL (0.0-0.2) 04/28/24 21:53 Monocyte Dist Width 16.76 % (0.00-20.00) 04/28/24 21:53 PHA Creatinine Clear 68.56 04/28/24 20:17 Sodium 138 mmol/L (136-145) 04/28/24 20:17 Potassium 3.9 mmol/L (3.5-5.1) 04/28/24 20:17 Chloride 105 mmol/L (98-107) 04/28/24 20:17 Carbon Dioxide 23.4 mmol/L (21.0-31.0) 04/28/24 20:17 Anion Gap 13.5 mEq/L (6.0-15.0) 04/28/24 20:17 BUN 14 mg/dL (7-25) 04/28/24 20:17 Creatinine 0.98 mg/dL (0.60-1.20) 04/28/24 20:17 Est GFR (CKD-EPI) > 60.0 mL/Min 04/28/24 20:17 Glucose 82 mg/dL (70-100) 04/28/24 20:17 Calcium 10.3 mg/dL (8.6-10.3) 04/28/24 20:17 Magnesium 1.6 mg/dL (1.9-2.7) L 04/28/24 21:53 Total Bilirubin 0.5 mg/dl (0.3-1.0) 04/28/24 20:17 AST 22 U/L (13-39) 04/28/24 20:17 ALT 20 U/L (7-52) 04/28/24 20:17 Alkaline Phosphatase 80 U/L (34-104) 04/28/24 20:17 Total Creatine Kinase 136 U/L (30-223) 04/28/24 20:17 Troponin I High Sens 3.1 pg/mL (0.0-15.0) 04/28/24 20:17 B-Natriuretic Peptide 9.0 pg/mL (5-100) 04/28/24 20:17 Total Protein 8.3 gm/dL (6.4-8.9) 04/28/24 20:17 Albumin 4.6 gm/dL (3.5-5.7) 04/28/24 20:17 Globulin 3.7 gm/dL 04/28/24 20:17 Albumin/Globulin Ratio 1.2 04/28/24 20:17 Microbiology Results Micro: Microbiology - Results from entire visit 04/28/24 22:00 Nasopharyngeal SARS-CoV-2, Influenza & RSV (PCR) - Final Assessment & Plan Assessment/Plan (1) Asthma with COPD: Plan 1. Acute exacerbation of asthma and COPD Patient does have multiple allergies, for now I will continue with hydrocortisone Albuterol treatments Will consult pulmonology 2. Migraine, Tylenol as needed 3. DVT prophylaxis SCDs IP vs OBS Justification Based on differential dx, clinical care plan, and risk of adverse events, if untreated, in my clinical judgement this patient requires an acute care setting as: INPATIENT because of an expectation of an over 2 midnight stay. Estimated length of stay (# of days): 3 Documented By: Luz Walker MD 04/28/24 5965 Signed By: <Electronically signed by Luz Walker MD> 04/28/24 2341 [facility] Work Phone: History and physical note Author Carlo Bills [facility] Note Date/Time August 14, 2024 7: 31am [facility] [address] [place] [address] Hospitalist H&P Signed Patient: Meredith Chaidez MR#: [id number] : 1970 Acct:[id number] Age/Sex: 54 / F Adm Date: 5 Loc: Room: [address] [place] [address] Type: ADM IN Attending Dr: Shyam Echevarria MD Copies to: Shyam Echevarria MD [facility] Carlo Bills, DO~ HPI DATE OF EXAMINATION: 08/14/24 CHIEF COMPLAINT: Shortness of breath HISTORY OF PRESENT ILLNESS: This patient is a 54-year-old female who presented emergency department this evening after similar presentation last evening and AMA discharge. She is againshort of breath with significant wheeze. She is again severely had significant distress with respiratory rate of 36 in the ER and 87% saturation on room air, 91% on 5 L with eventual improvement after high flow nasal cannula provided. Chest x-ray appears unchanged from yesterday's. Labs reveal a unremarkable CBC,mild hyponatremia 135, hypochloremia 97 notably a rise in serum bicarbonate 32.1. Normal LFTs. Patient has a complex allergy and allergy history and has seen immunology here locally in addition to pulmonology and rheumatology. Nebulized breathing treatments with low albuterol were provided again as ipratropium is also reported as allergy/intolerance but further review indicatesthis is a relative contraindication for history of glaucoma. Most recent pulmonology note skin test done at art psychotherapist office was positive forhydrocortisone and methylprednisolone but negative for Decadron and Kenalog. Patient was supposed to have Decadron challenge though this has not been completed yet. Additionally reported allergies to inhaled corticosteroids as well including that of Pulmicort, Advair, Symbicort. She was recommended to continue her antiallergy medication prescribed for seasonal allergies and rhinorrhea and continue antiacid control of GERD precipitating respiratory issues with PPI or [id number] famotidine. Physical Examination: GENERAL APPEARANCE: Alert, up in bed AAOx3 CARDIAC: Normal S1 and S2. No S3, S4 or murmurs. LUNGS: Diffuse wheeze and congestion ABDOMEN: Positive bowel sounds. Soft, nontender. No guarding or signs of an acute abdomen MUSCULOSKELETAL: No joint erythema or tenderness. EXTREMITIES: No clubbing, cyanosis or edema NEUROLOGICAL: No focal deficits SKIN: Skin normal color, texture and turgor with no lesions or eruptions. PSYCHIATRIC: Appropriate mood and affect Assessment and plan: 1. Acute on chronic hypoxic respiratory failure with suspected hypercarbia 2. Acute exacerbation of asthmatic lung disease, reactive airway disease by PFTs 3. Mild hyponatremia 4. Rheumatoid arthritis with overlying osteoarthritis, hypermobility syndrome 5. Glaucoma with history of bilateral stents 6. Obstructive sleep apnea 7. Elevated serum bicarbonate, suspected hypercapnic compensation 8. Hypothyroidism 9. Hepatic steatosis Patient again presents with respiratory complaints and complex pulmonary historyamong other comorbidities necessitating specialty consultations in the past. She did clarify that while not a life-threatening anaphylactic type reaction to Decadron last hospitalization that when trialed on 1 mg and then 2 mg IV push doses she each time had chest tightness, heart racing response which was worse on 2 mg dose. With positive skin testing to other steroids she seems to overallexhibit a class effect allergy profile to glucocorticoids. Inhaled budesonide likely would be poorly tolerated as she did not tolerate Symbicort with this activity ingredient previously either. Continue theophylline. Albuterol nebulizers with scheduled every 6 hours at higher dose 5 mg. Every 3 hours as needed 7.5 mg for breakthrough. Continue home metoprolol 50 mg extended release, increase as warranted given high dose beta agonist. Will consult pulmonology while waiting for bed at [facility]. Glaucoma with history with stents is her contraindication to ipratropium and she also reports intolerance symptomatically with chest pains and tightness similar to other reactions that are not anaphylactic but seemingly immune mediated. Many of the patient's symptomatic meds could theoretically cause some respiratory suppression and avoid supra therapeutic O2 saturation as her bicarbonate and wheeze likely reflect CO2 retention In terms of autoimmune disease she clearly has diffuse systemic illness. In 05/06/2024 outpatient rheumatology progress note is available for review. She has rheumatoid arthritis with polyarthritis, anti-CCP positivity with RF negativity. Limited treatment options. Her minocycline 100 mg daily is off label treatment for this and will be continued. Biologic abatacept is being worked on in the process of grants and prior authorizations due to expense. Control of underlying systemic rheumatic disease may better control her pulmonary inflammation as minimal traditional therapies are viable. If patient is still here on Friday would attempt to obtain records from Dr. Harrison's office from immunology to further clarify. Furthermore reports see a diagnosis of mixed connective tissue disease. This is not mentioned in rheumatology note. Will send anti-U1-ENVIRONMENTAL TECHNOLOGY PROFESSOR antibodies to clarify which I will follow up on. Homogenous DAWOOD positivity 1:640 is noted previously. Additionally the patient exhibits elevated IgG level and strongly positive anti-smooth muscle antibody level of 36. Additionally fatty liver disease with generally normal LFTs is highly suggestive of autoimmune hepatitis. Reportedly to see Dr. Reyes at [facility] for further eval 08/20/2024. To confirm autoimmune hepatitis she would likely need liver biopsy of which she could potentially have here if still waiting for bed on Friday. Certainly less urgent. Review of Systems Review of Systems All other systems reviewed & are negative unless noted below or in HPI [facility] Medical History (Updated 08/14/24 @ 02:16 by Carlo Bills DO) Acute exacerbation of idiopathic pulmonary fibrosis Mild persistent asthma refractory to systemic steroids Pulmonary fibrosis Rheumatoid arteritis Sleep apnea Seasonal allergic rhinitis History of kidney stones DAWOOD positive Asthma with COPD Reactive airway disease Migraine Hypertension Hypothyroid Gastritis GERD (gastroesophageal reflux disease) Chronic pain COPD (chronic obstructive pulmonary disease) Asthma Fibromyalgia Glaucoma Pancreatitis Surgical History History of tonsillectomy and adenoidectomy Hx of eye surgery stents in deb. eyes glaucoma Hx of neck surgery H/O: hysterectomy H/O tubal ligation Hx of cholecystectomy Family History Grandparent Breast cancer Diabetes Father COPD (chronic obstructive pulmonary disease) Hypertension Mother Heart disease Hypertension FH: mental illness mother Bipolar Arthritis Brother AA (alcohol abuse) Drug abuse Sister AA (alcohol abuse) Drug abuse Social History Smoking Status: Former smoker Tobacco Type: cigarettes Substance Use Type: CBD Oil Substance Abuse Comment: CBD gummies Meds Medications and Allergies Allergies adhesive Allergy (Unknown, Verified 08/13/24 19:35) Rash aspirin Allergy (Unknown, Verified 08/13/24 19:35) Hives bisoprolol (From Ziac) Allergy (Unknown, Verified 08/13/24 19:35) Vomiting cefdinir Allergy (Unknown, Verified 08/13/24 19:35) Vomiting erythromycin base Allergy (Unknown, Verified 08/13/24 19:35) Vomiting eszopiclone (Lunesta) Allergy (Unknown, Verified 08/13/24 19:35) Unknown Reaction fluticasone (From Advair Diskus) Allergy (Unknown, Verified 08/13/24 19:35) Hives heparin Allergy (Unknown, Verified 08/13/24 19:35) Swelling hydrochlorothiazide (From Ziac) Allergy (Unknown, Verified 08/13/24 19:35) Vomiting ketorolac (From Toradol) Allergy (Unknown, Verified 08/13/24 19:35) Nausea latanoprost Allergy (Unknown, Verified 08/13/24 19:35) Rash latex Allergy (Unknown, Verified 08/13/24 19:35) Rash medroxyprogesterone (From Depo-Provera) Allergy (Unknown, Verified 08/13/24 19:35) Hives morphine Allergy (Unknown, Verified 08/13/24 19:35) Hives nabumetone (From Relafen) Allergy (Unknown, Verified 08/13/24 19:35) Hives nalbuphine (From Nubain) Allergy (Unknown, Verified 08/13/24 19:35) Hives NSAIDS (Non-Steroidal Anti-Inflamma Allergy (Unknown, Verified 08/13/24 19:35) Nausea prednisone Allergy (Unknown, Verified 08/13/24 19:35) Unknown Reaction pregabalin (From Lyrica) Allergy (Unknown, Verified 08/13/24 19:35) Unknown Reaction quetiapine (From Seroquel) Allergy (Unknown, Verified 08/13/24 19:35) Vomiting rizatriptan (From Maxalt) Allergy (Unknown, Verified 08/13/24 19:35) Hives rofecoxib (From Vioxx) Allergy (Unknown, Verified 08/13/24 19:35) Hives sumatriptan (From Imitrex) Allergy (Unknown, Verified 08/13/24 19:35) Hives tizanidine (From Zanaflex) Allergy (Unknown, Verified 08/13/24 19:35) Unknown Reaction warfarin (From Coumadin) Allergy (Unknown, Verified 08/13/24 19:35) Unknown Reaction acetaminophen (From Percocet) Allergy (Verified 08/13/24 19:35) Unknown Reaction cephalexin (From Keflex) Allergy (Verified 08/13/24 19:35) Unknown Reaction hydrocodone Allergy (Verified 08/13/24 19:35) Unknown Reaction ipratropium Allergy (Verified 08/13/24 19:35) Hives methylprednisolone Allergy (Verified 08/13/24 19:35) Unknown Reaction oxycodone (From Percocet) Allergy (Verified 08/13/24 19:35) Unknown Reaction sulfamethoxazole (From Bactrim) Allergy (Verified 08/13/24 19:35) Unknown Reaction trimethoprim (From Bactrim) Allergy (Verified 08/13/24 19:35) Unknown Reaction codeine Adverse Reaction (Verified 08/13/24 19:35) Unknown Reaction diclofenac (From Arthrotec) Adverse Reaction (Verified 08/13/24 19:35) Unknown Reaction Home Medications amlodipine 2.5 mg tablet 2.5 mg PO DAILY 04/09/21 [History Confirmed 08/13/24] clonidine HCl 0.1 mg tablet 0.1 mg PO DIRECTED PRN Blood Pressure 04/09/21 [History Confirmed 08/13/24] febuxostat 40 mg tablet 40 mg PO HS 04/09/21 [History Confirmed 08/13/24] levothyroxine 50 mcg tablet 50 mcg PO DAILY 04/09/21 [History Confirmed 08/13/24] montelukast 10 mg tablet 10 mg PO HS 04/09/21 [History Confirmed 08/13/24] pantoprazole 40 mg tablet,delayed release 40 mg PO BID 04/09/21 [History Confirmed 08/13/24] cholecalciferol (vitamin D3) 125 mcg (5,000 unit) tablet 125 mcg PO DAILY 06/02/23 [History Confirmed 08/13/24] diphenhydramine HCl 25 mg capsule (Benadryl) 25 mg PO BID PRN Allergy Symptoms 06/02/23 [History Confirmed 08/13/24] ondansetron 4 mg disintegrating tablet 4 mg PO TID PRN nausea and vomiting 06/02/23 [History Confirmed 08/13/24] promethazine 25 mg tablet 25 mg PO Q6HR PRN Nausea 06/02/23 [History Confirmed 08/13/24] alprazolam 1 mg tablet 1 mg PO HS PRN sleep 01/27/24 [History Confirmed 08/13/24] delta 8 1 tab PO DIRECTED PRN pain 01/27/24 [History Confirmed 08/13/24] metoprolol succinate 50 mg tablet,extended release 24 hr 50 mg PO DAILY 01/27/24[History Confirmed 08/13/24] epinephrine 0.3 mg/0.3 mL injection, auto-injector 0.3 ml subcut .prn 02/25/24 [History Confirmed 08/13/24] albuterol sulfate 2.5 mg/3 mL (0.083 %) solution for nebulization 2.5 mg (3 mL) inhalation Q4-6H PRN Shortness Of Breath Or Wheezing 30 days #360 mL 04/22/24 [Rx Confirmed 08/13/24] CPAP (Continuous Positive Airway Pressure) 06/01/24 [History Confirmed 08/13/24] cetirizine 10 mg tablet 20 mg PO DAILY 06/01/24 [History Confirmed 08/13/24] gabapentin 300 mg capsule 600 mg PO TID PRN Pain 06/01/24 [History Confirmed 08/13/24] soy isoflavone-black cohosh root-magnolia bark 155 mg capsule (Estroven) 1 cap PO DAILY 06/01/24 [History Confirmed 08/13/24] theophylline 300 mg tablet,extended release,12 hr 300 mg PO Q12HR 06/01/24 [History Confirmed 08/13/24] thiamine HCl (vitamin B1) 100 mg tablet 100 mg PO DAILY 06/01/24 [History Confirmed 08/13/24] Ventolin HFA 90 mcg/actuation aerosol inhaler (albuterol sulfate) 2 inh inhalation Q4H PRN Shortness Of Breath 30 days #18 grams 06/22/24 [Rx Confirmed 08/13/24] albuterol sulfate 90 mcg/actuation aerosol inhaler 2 puff inhalation Q4H PRN Shortness Of Breath 30 days #8.5 grams 06/22/24 [Rx Confirmed 08/13/24] alprazolam 0.5 mg tablet 0.5 mg PO QAM PRN anxiety 08/13/24 [History Confirmed 08/13/24] hydroxyzine HCl 25 mg tablet 25 mg PO BID PRN itching 08/13/24 [History Confirmed 08/13/24] minocycline 100 mg capsule 100 mg PO QAM 08/13/24 [History Confirmed 08/13/24] nortriptyline 10 mg capsule 10 mg PO QHS 08/13/24 [History Confirmed 08/13/24] Exam Physical Exam Vital Signs: Temp Pulse Resp BP Pulse Ox O2 Del Method O2 Flow Rate 98.2 F 88 20 136/86 96 High Flow 35 08/14/24 00:30 08/14/24 00:30 08/14/24 00:30 08/14/24 00:30 08/14/24 00:30 08/14/24 00:30 08/14/24 00:30 FiO2 55 08/14/24 00:30 Results - Hospitalist H&P Lab Results Labs: Laboratory Last Values Corrected WBC 9.4 X10E3/uL (3.8-11.6) 08/13/24 20:06 Uncorrected WBC Count 9.4 x10E3/uL (3.8-11.6) 08/13/24 20:06 RBC 5.00 x10E6/uL (3.60-5.00) 08/13/24 20:06 Hgb 14.9 g/dL (11.8-15.4) 08/13/24 20:06 Hct 44.7 % (34.0-46.4) 08/13/24 20:06 MCV 89.4 fl (80-100) 08/13/24 20:06 MCH 29.8 pg (24.7-34.3) 08/13/24 20:06 MCHC 33.3 g/dL (32.0-35.0) 08/13/24 20:06 RDW 13.4 % (11.9-15.3) 08/13/24 20:06 Plt Count 345 x10E3/uL (150-450) 08/13/24 20:06 MPV 8.2 fl (6.3-10.7) 08/13/24 20:06 Neut % (Auto) 77.4 % (.) 08/13/24 20:06 Lymph % (Auto) 14.4 % (.) 08/13/24 20:06 [place] % (Auto) 5.1 % (.) 08/13/24 20:06 Eos % (Auto) 2.5 % (.) 08/13/24 20:06 Baso % (Auto) 0.6 % (.) 08/13/24 20:06 Nucleat RBC Rel Count 0.1 /100 WBC (0-0.5) 08/13/24 20:06 Neut # (Auto) 7.2 x10E3/uL (1.8-7.7) 08/13/24 20:06 Lymph # (Auto) 1.3 x10E3/uL (1.00-4.8) 08/13/24 20:06 [place] # (Auto) 0.5 x10E3/uL (0.0-0.8) 08/13/24 20:06 Eos # (Auto) 0.2 x10E3/uL (0.0-0.45) 08/13/24 20:06 Baso # (Auto) 0.1 x10E3/uL (0.0-0.2) 08/13/24 20:06 Monocyte Dist Width 17.20 % (0.00-20.00) 08/13/24 20:06 PHA Creatinine Clear 70.03 08/13/24 20:06 Sodium 135 mmol/L (136-145) L 08/13/24 20:06 Potassium 4.3 mmol/L (3.5-5.1) 08/13/24 20:06 Chloride 97 mmol/L (98-107) L 08/13/24 20:06 Carbon Dioxide 32.1 mmol/L (21.0-31.0) H 08/13/24 20:06 Anion Gap 10.2 mEq/L (6.0-15.0) 08/13/24 20:06 BUN 12 mg/dL (7-25) 08/13/24 20:06 Creatinine 0.96 mg/dL (0.60-1.20) 08/13/24 20:06 Est GFR (CKD-EPI) > 60.0 mL/Min 08/13/24 20:06 Glucose 107 mg/dL (70-100) H 08/13/24 20:06 Calcium 9.9 mg/dL (8.6-10.3) 08/13/24 20:06 Magnesium 1.9 mg/dL (1.9-2.7) 08/13/24 20:06 Total Bilirubin 0.5 mg/dl (0.3-1.0) 08/13/24 20:06 AST 20 U/L (13-39) 08/13/24 20:06 ALT 16 U/L (7-52) 08/13/24 20:06 Alkaline Phosphatase 95 U/L (34-104) 08/13/24 20:06 Total Creatine Kinase 182 U/L (30-223) 08/13/24 20:06 Troponin I High Sens 7.7 pg/mL (0.0-15.0) 08/13/24 20:06 B-Natriuretic Peptide 16.0 pg/mL (5-100) 08/13/24 20:06 Total Protein 8.8 gm/dL (6.4-8.9) 08/13/24 20:06 Albumin 4.5 gm/dL (3.5-5.7) 08/13/24 20:06 Globulin 4.3 gm/dL 08/13/24 20:06 Albumin/Globulin Ratio 1.0 08/13/24 20:06 COVID-19 Clin Com Not detected (Not Detecte) 08/13/24 19:46 Microbiology Results Micro: Microbiology - Results from entire visit 08/13/24 19:46 Nasopharyngeal Respiratory Panel (PCR) - Final Assessment & Plan Assessment/Plan (1) Acute on chronic hypoxic respiratory failure: Plan . IP vs OBS Justification Based on differential dx, clinical care plan, and risk of adverse events, if untreated, in my clinical judgement this patient requires an acute care setting as: INPATIENT because of an expectation of an over 2 midnight stay. Estimated length of stay (# of days): 3 Documented By: Carlo Bills DO 08/14/24 02 14 Signed By: <Electronically signed by Carlo Bills DO> 08/14/24 0731 [facility] Work Phone: Hospital course Narrative No data available for this section [facility] Discharge instructions No data available for this section [facility] Discharge instructions Additional Instructions Follow-up with your primary care doctor [facility] for [facility] Work Phone: Hospital Discharge instructions Additional Instructions Follow-up with Dr. Reyes as previously scheduled on 08/20/24[facility] Work Phone: Hospital Discharge instructionsAmbulatory Orders* Referral to PT / OT / Speech (PT/OT/SP) Location: None Selected [facility] Work Phone: Progress note No data available for this section [facility] Carlo [facility] Note Date/Time August 13, 2024 8: 10am [facility] [address] [place] [address] Event Note Signed Patient: Meredith Chaidez MR#: [id number] : 1970 Acct:[id number] Age/Sex: 54 / F Adm Date: 5 Loc: Room: [address] [place] [address] Type: ADM IN Attending Dr: Keith Forrester MD Copies to: Keith Forrester MD [facility] Carlo Bills DO~ Status Event Note Event Note DATE OF EVENT: 08/13/24 EVENT DETAILS: It is reported to me that this patient is leaving AGAINST MEDICAL ADVICE in the ER. I had accepted this patient earlier this past evening after she had been appropriately accepted for higher level tertiary care. This patient needs to beappropriately managed by the staff in the ER who is currently providing the immediate medical care at the bedside. I have canceled discharge order and willrelay this to the daytime team. If this patient is does not leave AMA and agrees to admission here while waiting for bed as initially intended, a new admission process will need to be performed with physician to physician communication daytime ER physician to daytime hospitalist. Continued medical management of this patient while residing in the ER will need to be administeredand managed by ER staff. TIME W/PATIENT (# MINS): 0 Documented By: Carlo Bills DO 08/13/24 08 03 Signed By: <Electronically signed by Carlo Bills DO> 08/13/24 0810 [facility] Work Phone: Progress note Author Shyam Echevarria [facility] Note Date/Time August 14, 2024 3: 35pm [facility] [address] [place] [address] Hospitalist Progress Note Signed Patient: Meredith Chaidez MR#: [id number] : 1970 Acct:[id number] Age/Sex: 54 / F Adm Date: 5 Loc: Room: [address] [place] [address] Type: ADM IN Attending Dr: Shyam Echevarria MD Copies to: ~ Date of Service: 08/14/2024 Subjective Subjective Narrative: This patient is a 54-year-old female with significant past medical history of asthma, multiple allergies, autoimmune disease who presented emergency department this evening after similar presentation last evening and AMA discharge. She is again short of breath with significant wheeze. She is again severely had significant distress with respiratory rate of 36 in the ER and 87% saturation on room air, 91% on 5 L with eventual improvement after high flow nasal cannula provided. Chest x-ray appears unchanged from yesterday's. Labs reveal a unremarkable CBC, mild hyponatremia 135, hypochloremia 97 notably a rise in serum bicarbonate 32.1. Normal LFTs. Patient has a complex allergy andallergy history and has seen immunology here locally in addition to pulmonology and rheumatology. Nebulized breathing treatments with low albuterol were provided again as ipratropium is also reported as allergy/intolerance but further review indicates this is a relative contraindication for history of glaucoma. Most recent pulmonology note skin test done at art psychotherapist office was positive forhydrocortisone and methylprednisolone but negative for Decadron and Kenalog. Patient was supposed to have Decadron challenge though this has not been completed yet. Additionally reported allergies to inhaled corticosteroids as well including that of Pulmicort, Advair, Symbicort. She was recommended to continue her antiallergy medication prescribed for seasonal allergies and rhinorrhea and continue antiacid control of GERD precipitating respiratory issues with PPI or [id number] famotidine. Interval history-Patient is lying in the bed and is breathing at 6 L by nasal cannula. Also has shortness of breath mostly with exertion. Physical Examination: GENERAL APPEARANCE: Alert, up in bed AAOx3 CARDIAC: Normal S1 and S2. No S3, S4 or murmurs. LUNGS: Patient has scattered monophonic wheezing ABDOMEN: Positive bowel sounds. Soft, nontender. No guarding or signs of an acute abdomen MUSCULOSKELETAL: No joint erythema or tenderness. EXTREMITIES: No clubbing, cyanosis or edema NEUROLOGICAL: No focal deficits SKIN: Skin normal color, texture and turgor with no lesions or eruptions. PSYCHIATRIC: Appropriate mood and affect Assessment and plan: 1. Acute on chronic hypoxic respiratory failure with suspected hypercarbia 2. Acute exacerbation of asthmatic lung disease, reactive airway disease by PFTs 3. Mild hyponatremia 4. Rheumatoid arthritis with overlying osteoarthritis, hypermobility syndrome 5. Glaucoma with history of bilateral stents 6. Obstructive sleep apnea 7. Elevated serum bicarbonate, suspected hypercapnic compensation 8. Hypothyroidism 9. Hepatic steatosis Assessment-shortness of breath likely in setting of asthma flareup Plan: -Admit in the regular nursing floor -Due to her history of allergy patient could not get any steroids, patient has extreme reaction to all different kind of steroids including Decadron which was tried during last hospitalization -Due to cataract patient also cannot take ipratropium -Currently only being managed with albuterol inhaler scheduled and as needed -Continue on POA medication-gabapentin, Xanax, Norvasc, vitamin D, clonidine, for Oxistat, hydroxyzine, levothyroxine, loratadine, metoprolol, montelukast, nortriptyline, pantoprazole, promethazine -Patient is already accepted at [facility] Main campus pending transfer Full code DVT prophylaxis-SCD Exam Physical Exam Vital Signs: Temp Pulse Resp BP Pulse Ox O2 Del Method O2 Flow Rate 97.5 F L 68 16 140/83 96 Nasal Cannula 6 08/14/24 12:00 08/14/24 12:00 08/14/24 12:00 08/14/24 12:00 08/14/24 12:00 08/14/24 12:00 08/14/24 12:00 FiO2 55 08/14/24 08:20 Objective Lab Results 08/14/24 09:13 08/14/24 09:13 Microbiology Results Microbiology 08/13/24 19:46 Nasopharyngeal Respiratory Panel (PCR) - Final Meds Allergies and Active Meds Allergies adhesive Allergy (Unknown, Verified 08/13/24 19:35) Rash aspirin Allergy (Unknown, Verified 08/13/24 19:35) Hives bisoprolol (From Ziac) Allergy (Unknown, Verified 08/13/24 19:35) Vomiting cefdinir Allergy (Unknown, Verified 08/13/24 19:35) Vomiting erythromycin base Allergy (Unknown, Verified 08/13/24 19:35) Vomiting eszopiclone (Lunesta) Allergy (Unknown, Verified 08/13/24 19:35) Unknown Reaction fluticasone (From Advair Diskus) Allergy (Unknown, Verified 08/13/24 19:35) Hives heparin Allergy (Unknown, Verified 08/13/24 19:35) Swelling hydrochlorothiazide (From Ziac) Allergy (Unknown, Verified 08/13/24 19:35) Vomiting ketorolac (From Toradol) Allergy (Unknown, Verified 08/13/24 19:35) Nausea latanoprost Allergy (Unknown, Verified 08/13/24 19:35) Rash latex Allergy (Unknown, Verified 08/13/24 19:35) Rash medroxyprogesterone (From Depo-Provera) Allergy (Unknown, Verified 08/13/24 19:35) Hives morphine Allergy (Unknown, Verified 08/13/24 19:35) Hives nabumetone (From Relafen) Allergy (Unknown, Verified 08/13/24 19:35) Hives nalbuphine (From Nubain) Allergy (Unknown, Verified 08/13/24 19:35) Hives NSAIDS (Non-Steroidal Anti-Inflamma Allergy (Unknown, Verified 08/13/24 19:35) Nausea prednisone Allergy (Unknown, Verified 08/13/24 19:35) Unknown Reaction pregabalin (From Lyrica) Allergy (Unknown, Verified 08/13/24 19:35) Unknown Reaction quetiapine (From Seroquel) Allergy (Unknown, Verified 08/13/24 19:35) Vomiting rizatriptan (From Maxalt) Allergy (Unknown, Verified 08/13/24 19:35) Hives rofecoxib (From Vioxx) Allergy (Unknown, Verified 08/13/24 19:35) Hives sumatriptan (From Imitrex) Allergy (Unknown, Verified 08/13/24 19:35) Hives tizanidine (From Zanaflex) Allergy (Unknown, Verified 08/13/24 19:35) Unknown Reaction warfarin (From Coumadin) Allergy (Unknown, Verified 08/13/24 19:35) Unknown Reaction acetaminophen (From Percocet) Allergy (Verified 08/13/24 19:35) Unknown Reaction cephalexin (From Keflex) Allergy (Verified 08/13/24 19:35) Unknown Reaction hydrocodone Allergy (Verified 08/13/24 19:35) Unknown Reaction ipratropium Allergy (Verified 08/13/24 19:35) Hives methylprednisolone Allergy (Verified 08/13/24 19:35) Unknown Reaction oxycodone (From Percocet) Allergy (Verified 08/13/24 19:35) Unknown Reaction sulfamethoxazole (From Bactrim) Allergy (Verified 08/13/24 19:35) Unknown Reaction trimethoprim (From Bactrim) Allergy (Verified 08/13/24 19:35) Unknown Reaction codeine Adverse Reaction (Verified 08/13/24 19:35) Unknown Reaction diclofenac (From Arthrotec) Adverse Reaction (Verified 08/13/24 19:35) Unknown Reaction Active Meds: Active Medications Generic Name Dose Route Start Last Admin Trade Name Freq PRN Reason Stop Dose Admin Acetaminophen 1,000 mg 08/14/24 01:15 Acetaminophen 500 Mg Tablet PO 08/14/25 01:14 Q6H PRN Fever or Pain Albuterol 7.5 mg 08/13/24 22:09 Albuterol Neb 2.5 Mg/3 Ml Vial.Neb INHALATION 08/13/25 22:08 Q3H PRN Shortness Of Breath Albuterol 5 mg 08/14/24 08:00 08/14/24 11:56 Albuterol Neb 2.5 Mg/3 Ml Vial.Neb INHALATION 08/14/25 07:59 5 mg QID.RESP DAMON Administration Alprazolam 1 mg 08/14/24 01:23 08/14/24 01:40 Alprazolam 0.5 Mg Tablet PO 02/10/25 01:22 1 mg HS PRN Administration sleep Alprazolam 0.5 mg 08/14/24 01:12 Alprazolam 0.5 Mg Tablet PO 02/10/25 01:11 QAM PRN anxiety Amlodipine Besylate 2.5 mg 08/14/24 12:45 08/14/24 12:57 Amlodipine 2.5 Mg Tablet PO 08/14/25 12:44 2.5 mg DAILY DAMON Administration Clonidine HCl 0.1 mg 08/14/24 12:31 Clonidine 0.1 Mg Tablet PO 08/14/25 12:30 BID PRN Blood Pressure >180 Diphenhydramine HCl 25 mg 08/14/24 01:15 Diphenhydramine 50 Mg/Ml Vial IV-PUSH 08/14/25 01:14 Q6H PRN itching, pain, nausea, anxiety Diphenhydramine HCl 25 mg 08/14/24 11:27 Diphenhydramine 25 Mg Capsule PO 08/14/25 11:26 BID PRN Allergy Symptoms Gabapentin 600 mg 08/14/24 14:00 08/14/24 13:00 Gabapentin 300 Mg Capsule PO 08/14/25 01:11 600 mg TID DAMON Administration Guaifenesin 1,200 mg 08/14/24 09:00 08/14/24 09:58 Guaifenesin 600 Mg Tab.Er.12h PO 08/14/25 08:59 1,200 mg BID DAMON Administration Guaifenesin 1,200 mg 08/14/24 01:20 08/14/24 09:58 Guaifenesin 600 Mg Tab.Er.12h PO 08/14/25 01:19 Not Given BID DAMON Hydroxyzine Pamoate 25 mg 08/14/24 01:27 Hydroxyzine Pamoate 25 Mg Capsule PO 08/14/25 01:26 BID PRN itching Influenza Virus Vacc Triv Types A&B 0.5 ml 08/15/24 08:00 Flu Vacc Tv (36mos +) Pf 0.5 Ml Syringe 24-25 IM 08/15/24 08:01 .ONCE ONE Levothyroxine Sodium 50 mcg 08/14/24 06:30 08/14/24 05:56 Levothyroxine 50 Mcg Tablet PO 08/14/25 06:29 50 mcg DAILY.0630 DAMON Administration Loratadine 20 mg 08/14/24 12:45 08/14/24 12:57 Loratadine 10 Mg Tablet PO 08/14/25 12:44 Not Given DAILY DAMON Metoprolol Succinate 50 mg 08/14/24 01:15 08/14/24 09:58 Metoprolol Succinate 50 Mg Tab.Er.24h PO 08/14/25 01:14 50 mg DAILY DAMON Administration Montelukast Sodium 10 mg 08/14/24 01:15 08/14/24 01:39 Montelukast 10 Mg Tablet PO 08/14/25 01:14 10 mg HS DAMON Administration Non-Formulary Medication 40 mg 08/14/24 22:00 Febuxostat PO 08/14/25 21:59 HS DAMON Nortriptyline HCl 10 mg 08/14/24 01:15 08/14/24 01:39 Nortriptyline 10 Mg Capsule PO 08/14/25 01:14 10 mg QHS DAMON Administration Pantoprazole Sodium 40 mg 08/14/24 09:00 08/14/24 09:58 Pantoprazole 40 Mg Tablet. PO 08/14/25 08:59 40 mg BID DAMON Administration Promethazine HCl 25 mg 08/14/24 11:27 Promethazine 25 Mg Tablet PO 08/14/25 11:26 Q6HR PRN Nausea Sodium Chloride 0 ml 08/13/24 19:33 Sodium Chloride 0.9 % 10 Ml Syringe IV-PUSH 08/13/25 19:32 PRN PRN Flush Vitamin D 125 mcg 08/15/24 09:00 Cholecalciferol 125 Mcg (5,000 Units) Capsule PO 08/15/25 08:59 DAILY DAMON A&P - Hospitalist Assessment/Plan (1) Acute on chronic hypoxic respiratory failure: Plan . Documented By: Shyam Echevarria MD 08/14/24 152 Signed By: <Electronically signed by Shyam Echevarria MD> 08/14/24 3717 [facility] Work Phone: Progress note Author Shyam Echevarria [facility] Note Date/Time August 15, 2024 5: 17pm [facility] [address] [place] [address] Hospitalist Progress Note Signed Patient: Meredith Chaidez MR#: [id number] : 1970 Acct:[id number] Age/Sex: 54 / F Adm Date: 5 Loc: 4 Room: [address] [place] [address] Type: ADM IN Attending Dr: Shyam Echevarria MD Copies to: ~ Date of Service: 08/15/2024 Subjective Subjective Narrative: This patient is a 54-year-old female with significant past medical history of asthma, multiple allergies, autoimmune disease who presented emergency department this evening after similar presentation last evening and AMA discharge. She is again short of breath with significant wheeze. She is again severely had significant distress with respiratory rate of 36 in the ER and 87% saturation on room air, 91% on 5 L with eventual improvement after high flow nasal cannula provided. Chest x-ray appears unchanged from yesterday's. Labs reveal a unremarkable CBC, mild hyponatremia 135, hypochloremia 97 notably a rise in serum bicarbonate 32.1. Normal LFTs. Patient has a complex allergy andallergy history and has seen immunology here locally in addition to pulmonology and rheumatology. Nebulized breathing treatments with low albuterol were provided again as ipratropium is also reported as allergy/intolerance but further review indicates this is a relative contraindication for history of glaucoma. Most recent pulmonology note skin test done at art psychotherapist office was positive forhydrocortisone and methylprednisolone but negative for Decadron and Kenalog. Patient was supposed to have Decadron challenge though this has not been completed yet. Additionally reported allergies to inhaled corticosteroids as well including that of Pulmicort, Advair, Symbicort. She was recommended to continue her antiallergy medication prescribed for seasonal allergies and rhinorrhea and continue antiacid control of GERD precipitating respiratory issues with PPI or [id number] famotidine. Interval history-Patient is lying in the bed and is breathing at 3 L by nasal cannula. Still at shortness of breath with exertion Physical Examination: GENERAL APPEARANCE: Alert, up in bed AAOx3 CARDIAC: Normal S1 and S2. No S3, S4 or murmurs. LUNGS: Patient has scattered monophonic wheezing ABDOMEN: Positive bowel sounds. Soft, nontender. No guarding or signs of an acute abdomen MUSCULOSKELETAL: No joint erythema or tenderness. EXTREMITIES: No clubbing, cyanosis or edema NEUROLOGICAL: No focal deficits SKIN: Skin normal color, texture and turgor with no lesions or eruptions. PSYCHIATRIC: Appropriate mood and affect Assessment and plan: 1. Acute on chronic hypoxic respiratory failure with suspected hypercarbia 2. Acute exacerbation of asthmatic lung disease, reactive airway disease by PFTs 3. Mild hyponatremia 4. Rheumatoid arthritis with overlying osteoarthritis, hypermobility syndrome 5. Glaucoma with history of bilateral stents 6. Obstructive sleep apnea 7. Elevated serum bicarbonate, suspected hypercapnic compensation 8. Hypothyroidism 9. Hepatic steatosis Assessment-shortness of breath likely in setting of asthma flareup Plan: -Admit in the regular nursing floor -Due to her history of allergy patient could not get any steroids, patient has extreme reaction to all different kind of steroids including Decadron which was tried during last hospitalization -Due to cataract patient also cannot take ipratropium -Currently only being managed with albuterol inhaler scheduled and as needed -Continue on POA medication-gabapentin, Xanax, Norvasc, vitamin D, clonidine, for Oxistat, hydroxyzine, levothyroxine, loratadine, metoprolol, montelukast, nortriptyline, pantoprazole, promethazine Full code DVT prophylaxis-SCD Exam Physical Exam Vital Signs: Temp Pulse Resp BP Pulse Ox O2 Del Method O2 Flow Rate 98.5 F 80 16 138/61 96 Nasal Cannula 3 08/15/24 08:00 08/15/24 13:32 08/15/24 16:00 08/15/24 16:00 08/15/24 16:00 08/15/24 16:00 08/15/24 16:00 FiO2 55 08/14/24 08:20 Narrative: Physical Examination: GENERAL APPEARANCE: Alert, up in bed AAOx3 CARDIAC: Normal S1 and S2. No S3, S4 or murmurs. LUNGS: Patient has scattered monophonic wheezing ABDOMEN: Positive bowel sounds. Soft, nontender. No guarding or signs of an acute abdomen MUSCULOSKELETAL: No joint erythema or tenderness. EXTREMITIES: No clubbing, cyanosis or edema NEUROLOGICAL: No focal deficits SKIN: Skin normal color, texture and turgor with no lesions or eruptions. PSYCHIATRIC: Appropriate mood and affect Objective Lab Results 08/15/24 05:23 08/15/24 05:23 Meds Allergies and Active Meds Allergies adhesive Allergy (Unknown, Verified 08/13/24 19:35) Rash aspirin Allergy (Unknown, Verified 08/13/24 19:35) Hives bisoprolol (From Ziac) Allergy (Unknown, Verified 08/13/24 19:35) Vomiting cefdinir Allergy (Unknown, Verified 08/13/24 19:35) Vomiting erythromycin base Allergy (Unknown, Verified 08/13/24 19:35) Vomiting eszopiclone (Lunesta) Allergy (Unknown, Verified 08/13/24 19:35) Unknown Reaction fluticasone (From Advair Diskus) Allergy (Unknown, Verified 08/13/24 19:35) Hives heparin Allergy (Unknown, Verified 08/13/24 19:35) Swelling hydrochlorothiazide (From Ziac) Allergy (Unknown, Verified 08/13/24 19:35) Vomiting ketorolac (From Toradol) Allergy (Unknown, Verified 08/13/24 19:35) Nausea latanoprost Allergy (Unknown, Verified 08/13/24 19:35) Rash latex Allergy (Unknown, Verified 08/13/24 19:35) Rash medroxyprogesterone (From Depo-Provera) Allergy (Unknown, Verified 08/13/24 19:35) Hives morphine Allergy (Unknown, Verified 08/13/24 19:35) Hives nabumetone (From Relafen) Allergy (Unknown, Verified 08/13/24 19:35) Hives nalbuphine (From Nubain) Allergy (Unknown, Verified 08/13/24 19:35) Hives NSAIDS (Non-Steroidal Anti-Inflamma Allergy (Unknown, Verified 08/13/24 19:35) Nausea prednisone Allergy (Unknown, Verified 08/13/24 19:35) Unknown Reaction pregabalin (From Lyrica) Allergy (Unknown, Verified 08/13/24 19:35) Unknown Reaction quetiapine (From Seroquel) Allergy (Unknown, Verified 08/13/24 19:35) Vomiting rizatriptan (From Maxalt) Allergy (Unknown, Verified 08/13/24 19:35) Hives rofecoxib (From Vioxx) Allergy (Unknown, Verified 08/13/24 19:35) Hives sumatriptan (From Imitrex) Allergy (Unknown, Verified 08/13/24 19:35) Hives tizanidine (From Zanaflex) Allergy (Unknown, Verified 08/13/24 19:35) Unknown Reaction warfarin (From Coumadin) Allergy (Unknown, Verified 08/13/24 19:35) Unknown Reaction acetaminophen (From Percocet) Allergy (Verified 08/13/24 19:35) Unknown Reaction cephalexin (From Keflex) Allergy (Verified 08/13/24 19:35) Unknown Reaction hydrocodone Allergy (Verified 08/13/24 19:35) Unknown Reaction ipratropium Allergy (Verified 08/13/24 19:35) Hives methylprednisolone Allergy (Verified 08/13/24 19:35) Unknown Reaction oxycodone (From Percocet) Allergy (Verified 08/13/24 19:35) Unknown Reaction sulfamethoxazole (From Bactrim) Allergy (Verified 08/13/24 19:35) Unknown Reaction trimethoprim (From Bactrim) Allergy (Verified 08/13/24 19:35) Unknown Reaction codeine Adverse Reaction (Verified 08/13/24 19:35) Unknown Reaction diclofenac (From Arthrotec) Adverse Reaction (Verified 08/13/24 19:35) Unknown Reaction Active Meds: Active Medications Generic Name Dose Route Start Last Admin Trade Name Freq PRN Reason Stop Dose Admin Acetaminophen 1,000 mg 08/14/24 01:15 Acetaminophen 500 Mg Tablet PO 08/14/25 01:14 Q6H PRN Fever or Pain Albuterol 7.5 mg 08/13/24 22:09 Albuterol Neb 2.5 Mg/3 Ml Vial.Neb INHALATION 08/13/25 22:08 Q3H PRN Shortness Of Breath Albuterol 5 mg 08/14/24 08:00 08/15/24 13:30 Albuterol Neb 2.5 Mg/3 Ml Vial.Neb INHALATION 08/14/25 07:59 5 mg QID.RESP DAMON Administration Alprazolam 1 mg 08/14/24 01:23 08/14/24 01:40 Alprazolam 0.5 Mg Tablet PO 02/10/25 01:22 1 mg HS PRN Administration sleep Alprazolam 0.5 mg 08/14/24 01:12 Alprazolam 0.5 Mg Tablet PO 02/10/25 01:11 QAM PRN anxiety Amlodipine Besylate 2.5 mg 08/14/24 12:45 08/15/24 08:29 Amlodipine 2.5 Mg Tablet PO 08/14/25 12:44 2.5 mg DAILY DAMON Administration Clonidine HCl 0.1 mg 08/14/24 12:31 Clonidine 0.1 Mg Tablet PO 08/14/25 12:30 BID PRN Blood Pressure >180 Diphenhydramine HCl 25 mg 08/14/24 01:15 Diphenhydramine 50 Mg/Ml Vial IV-PUSH 08/14/25 01:14 Q6H PRN itching, pain, nausea, anxiety Diphenhydramine HCl 25 mg 08/14/24 11:27 Diphenhydramine 25 Mg Capsule PO 08/14/25 11:26 BID PRN Allergy Symptoms Gabapentin 600 mg 08/15/24 09:00 08/15/24 14:21 Gabapentin 600 Mg Tablet PO 08/14/25 01:11 600 mg TID DAMON Administration Guaifenesin 1,200 mg 08/14/24 01:20 08/15/24 08:28 Guaifenesin 600 Mg Tab.Er.12h PO 08/14/25 01:19 Not Given BID DAMON Hydroxyzine Pamoate 25 mg 08/14/24 01:27 Hydroxyzine Pamoate 25 Mg Capsule PO 08/14/25 01:26 BID PRN itching Levothyroxine Sodium 50 mcg 08/14/24 06:30 08/15/24 06:18 Levothyroxine 50 Mcg Tablet PO 08/14/25 06:29 50 mcg DAILY.0630 DAMON Administration Loratadine 20 mg 08/14/24 12:45 08/15/24 08:28 Loratadine 10 Mg Tablet PO 08/14/25 12:44 Not Given DAILY DAMON Metoprolol Succinate 50 mg 08/14/24 01:15 08/15/24 08:28 Metoprolol Succinate 50 Mg Tab.Er.24h PO 08/14/25 01:14 50 mg DAILY DAMON Administration Montelukast Sodium 10 mg 08/14/24 01:15 08/14/24 21:16 Montelukast 10 Mg Tablet PO 08/14/25 01:14 10 mg HS DAMON Administration Non-Formulary Medication 40 mg 08/14/24 22:00 08/14/24 21:17 Febuxostat PO 08/14/25 21:59 Not Given HS DAMON Nortriptyline HCl 10 mg 08/14/24 01:15 08/14/24 21:16 Nortriptyline 10 Mg Capsule PO 08/14/25 01:14 10 mg QHS DAMON Administration Pantoprazole Sodium 40 mg 08/14/24 09:00 08/15/24 08:28 Pantoprazole 40 Mg Tablet.Dr PO 08/14/25 08:59 40 mg BID DAMON Administration Promethazine HCl 25 mg 08/14/24 11:27 Promethazine 25 Mg Tablet PO 08/14/25 11:26 Q6HR PRN Nausea Sodium Chloride 0 ml 08/13/24 19:33 Sodium Chloride 0.9 % 10 Ml Syringe IV-PUSH 08/13/25 19:32 PRN PRN Flush Vitamin D 125 mcg 08/15/24 09:00 08/15/24 08:27 Cholecalciferol 125 Mcg (5,000 Units) Capsule PO 08/15/25 08:59 125 mcg DAILY DAMON Administration A&P - Hospitalist Assessment/Plan (1) Acute on chronic hypoxic respiratory failure: Plan . Documented By: Shyam Echevarria MD 08/15/241714 Signed By: <Electronically signed by Shyam Echevarria MD> 08/15/241716 [facility] Work Phone: Reason for referral (narrative)* Outpatient Procedure (Routine) - New Request Specialty Diagnoses / Procedures Referred By Contac t Referred To Contact [facility] [place] Diagnoses Severe persistent asthma, unspecified whether complicated Procedures SPIROMETRY - BASELINE AND POST DILATOR BRNCDILAT RSPSE SPMTRY PRE&POST-BRNCDILAT ADMN Austin Gordillo MD [address] [place] [address] [address] Referral ID Status Reason Start Date Expiration Date Visits Requested Visits Authorized [id number] New Request Auto-Generat ed Referral 4 07/02/2025 1 1 * Outpatient Procedure (Routine) - New Request Specialty Diagnoses / Procedures Referred By Contac t Referred To [facility] [place] Diagnoses Severe persistent asthma, unspecified whether complicated Procedures NITRIC OXIDE, EXHALED NITRIC OXIDE GAS DETERMINATION Austin Gordillo MD [address] [place] [address] [address] Referral ID Status Reason Start Date Expiration Date Visits Requested Visits Authorized [id number] New Request Auto-Generat ed Referral 4 07/02/2025 1 1 [facility] for referral (narrative)* Outpatient Procedure (Routine) - New Request Specialty Diagnoses / Procedures Referred By Nicola t Referred To Contact [facility] Diagnoses Moderate persistent asthma, unspecified whether complicated Procedures NITRIC OXIDE, EXHALED NITRIC OXIDE GAS DETERMINATION Al Hammond MD [address] [id number] [place] [address] Referral ID Status Reason Start Date Expiration Date Visits Requested Visits Authorized [id number] New Request Auto-Generat ed Referral 09/09/2024 10/09/2025 1 1 * Outpatient Procedure (Routine) - New Request Specialty Diagnoses / Procedures Referred By Nicola zepeda Referred To Contact [facility] Diagnoses Moderate persistent asthma, unspecified whether complicated Procedures SPIROMETRY WITH DILATOR IF OBSTRUCTED BRNCDILAT RSPSE SPMTRY PRE&POST-BRNCDILAT ADMN Al Hammond MD [address] [place] [address] [place] [address] Referral ID Status Reason Start Date Expiration Date Visits Requested Visits Authorized [id number] New Request Auto-Generat ed Referral 09/09/2024 10/09/2025 1 1 [facility] for referral (narrative)No reason for referral information [facility] Work Phone: Reason for visit Narrative* Outpatient Procedure (Routine) - Closed Specialty Diagnoses / Procedures Referred By Nicola zepeda Referred To Contact [facility] Diagnoses Fatty liver Procedures DDI VIBRATION CONTROLLED TRANSIENT ELASTOGRAPHY (VCTE) LIVER ELASTOGRAPHY W/O IMAG W/I&R Soy Reyes Jr., DO [address] [facility] [address] [address] Phone: tel: fax: [facility] [address] [place] [address] Referral ID Status Reason Start Date Expiration Date V isits Requested Visits Authorized [id number] Closed Auto-Generate d Referral 11/18/2024 11/18/2025 1 1 [facility] for visit Narrative* Diagnostic Procedure Only (Routine) - Closed Specialty Diagnoses / Procedures Referred By Contac t Referred To Contact [facility] Diagnoses Fatty liver Procedures US ABD RIGHT UPPER QUADRANT US ABDOMINAL REAL TIME W/IMAGE LIMITED Soy Reyes Jr., DO [address] [place] [address] Phone: tel: fax: [place] [address] Referral ID Status Reason Start Date Expiration Date V isits Requested Visits Authorized [id number] Closed Auto-Generate d Referral 11/18/2024 12/18/2025 1 1 [facility] for visit Narrative* Outpatient Procedure (Routine) - Closed Specialty Diagnoses / Procedures Referred By Contac t Referred To Contact [facility] Diagnoses Personal history of adenomatous and serrated colon polyps Procedures COLONOSCOPY SCREENING COLONOSCOPY FLX DX W/COLLJ SPEC WHEN PFRMD Soy Reyes Jr., DO [address] [place] [address] Phone: tel: fax: [facility] [address] [place] [address] Referral ID Status Reason Start Date Expiration Date V isits Requested Visits Authorized [id number] Closed Auto-Generate d Referral 12/09/2024 01/09/2025 1 1 [facility] for visit Narrative* Diagnostic Procedure Only (Routine) - Closed Specialty Diagnoses / Procedures Referred By Contac t Referred To Contact [facility] Diagnoses Dysphagia, unspecified type Procedures XR MODIFIED BARIUM SWALLOW W SPEECH THERAPY RADIOLOGIC EXAM SWALLOW FUNCTION CONTRAST STUDY Josephine Rosas PA-C [address] [place] [address] Phone: tel: [place] [address] Referral ID Status Reason Start Date Expiration Date V isits Requested Visits Authorized [id number] Closed Auto-Generate d Referral 10/26/2024 11/25/2025 1 1 [facility] Summary Purpose Family History No Family History Records Found Relationship Condition Age at Onset Recorded Date/T mendez grandparent Malignant neoplasm of breast Unknown Diabetes mellitus Unknown Relationship Condition Age at Onset Recorded Date/T mendez grandparent Malignant neoplasm of breast Unknown Diabetes mellitus Unknown father Unknown Relationship Condition Age at Onset Recorded Date/T mendez grandparent Malignant neoplasm of breast Unknown Diabetes mellitus Unknown father Unknown Not Specified Heart disease Unknown Hypertension Unknown Family history of mental disorder Unknown Relationship Condition Age at Onset Recorded Date/T mendez grandparent Malignant neoplasm of breast Unknown Diabetes mellitus Unknown father Unknown Chronic obstructive pulmonary disease Unk nown Hypertension Unknown Not Specified Heart disease Unknown Family history of mental disorder Unknown Arthritis Unknown brother Alcohol abuse Unknown Drug abuse Unknown sister Alcohol abuse Unknown Relationship Condition Age at Onset Recorded Date/T mendez grandparent Malignant neoplasm of breast Unknown Diabetes mellitus Unknown father Unknown Chronic obstructive pulmonary disease Unk nown Hypertension Unknown mother Heart disease Unknown Family history of mental disorder Unknown Arthritis Unknown brother Alcohol abuse Unknown Drug abuse Unknown sister Alcohol abuse Unknown Advance Directives No Advanced Directives Records Found Advance Directive Response Recorded Date/ Time Advance Directives No April 4:35pm Advance Directive Response Recorded Date/ Time Advance Directives Yes January 26 9:13am Advance Directive Response Recorded Date/ Time Advance Directives Yes January 26 8:13am Date Activated Date Inactivated Comments 09/01/2024 10:45 AM Question Answer Comments Full Code Order Discussed With: Patient Date Activated Date Inactivated Comments 09/01/2024 10:45 AM 09/09/2024 7:59 PM Question Answer Comments Full Code Order Discussed With: Patient Date Activated Date Inactivated Comments 09/01/2024 10:45 AM 09/09/2024 7:59 PM Chief Complaint and Reason for Visit Chief Complaint I10 Z13.6 E03.9 R60. 01 Chief Complaint I10 Z13.6 E03.9 R60. 01 SOB, CP Reason for Visit Acute dehydration Cephalgia Chest pain Epigastric abdominal pain Hypertension Chief Complaint e78.1 j44.9 m25.50 Chief Complaint e78.1 j44.9 m25.50 r76.8 Chief Complaint e78.1 j44.9 m25.50 r76.8 E87.6 J44.9 J44.9 Chief Complaint e78.1 j44.9 m25.50 r76.8 E87.6 J44.9 J44.9 e83.52 Chief Complaint r76.8 E87.6 J44.9 J44.9 e83.52 r76.0 OA FM MEDS Ref: [facility]- COPD Reason for Visit GERD (gastroesophage al reflux disease) Reactive airway disease Seasonal allergic rhinitis Chief Complaint E87.6 J44.9 J44.9 e83.52 r76.0 OA FM MEDS Ref: [facility]- COPD bp high, R side pain Reason for Visit GERD (gastroesophage al reflux disease) Reactive airway disease Seasonal allergic rhinitis Sleep apnea Chief Complaint J44.9 J44.9 e83.52 r76.0 OA FM MEDS Ref: [facility]- COPD bp high, R side pain TB, hepatitis, RA, meds Rheumatoid arthritis, immunosuppression, meds Reason for Visit GERD (gastroesophage al reflux disease) Reactive airway disease Seasonal allergic rhinitis Sleep apnea Chief Complaint J44.9 J44.9 e83.52 r76.0 OA FM MEDS Ref: [facility]- COPD bp high, R side pain TB, hepatitis, RA, meds Rheumatoid arthritis, immunosuppression, meds R30.0 Reason for Visit GERD (gastroesophage al reflux disease) Reactive airway disease Seasonal allergic rhinitis Sleep apnea Chief Complaint J44.9 J44.9 e83.52 r76.0 OA FM MEDS Ref: [facility]- COPD bp high, R side pain TB, hepatitis, RA, meds Rheumatoid arthritis, immunosuppression, meds R30.0 chronic gastritis/former [facility]kes pt Reason for Visit GERD (gastroesophage al reflux disease) Reactive airway disease Seasonal allergic rhinitis Sleep apnea Dysphagia Fatty liver GERD (gastroesophageal reflux disease) Right sided abdominal pain Chief Complaint r76.0 OA FM MEDS Ref: [facility]- COPD bp high, R side pain TB, hepatitis, RA, meds Rheumatoid arthritis, immunosuppression, meds R30.0 chronic gastritis/former [place]kes pt R00.2 R06.01 Reason for Visit GERD (gastroesophage al reflux disease) Reactive airway disease Seasonal allergic rhinitis Sleep apnea Dysphagia Fatty liver GERD (gastroesophageal reflux disease) Right sided abdominal pain Chief Complaint Ref: [facility]- COPD bp high, R side pain TB, hepatitis, RA, meds Rheumatoid arthritis, immunosuppression, meds R30.0 chronic gastritis/former hykes pt R00.2 R06.01 R00.2 R06.01 g47.30 Reason for Visit GERD (gastroesophage al reflux disease) Reactive airway disease Seasonal allergic rhinitis Sleep apnea Dysphagia Fatty liver GERD (gastroesophageal reflux disease) Right sided abdominal pain Chief Complaint bp high, R side pain TB, hepatitis, RA, meds Rheumatoid arthritis, immunosuppression, meds R30.0 chronic gastritis/former hykes pt R00.2 R06.01 R00.2 R06.01 g47.30 g47.30 j40 Reason for Visit Dysphagia Fatty liver GERD (gastroesophageal reflux disease) Right sided abdominal pain Chief Complaint bp high, R side pain TB, hepatitis, RA, meds Rheumatoid arthritis, immunosuppression, meds R30.0 chronic gastritis/former hykes pt R00.2 R06.01 R00.2 R06.01 g47.30 g47.30 j40 sob Reason for Visit Dysphagia Fatty liver GERD (gastroesophageal reflux disease) Right sided abdominal pain Chief Complaint bp high, R side pain TB, hepatitis, RA, meds Rheumatoid arthritis, immunosuppression, meds R30.0 chronic gastritis/former hykes pt dysphagia/gerd/abd. pain R00.2 R06.01 R00.2 R06.01 g47.30 g47.30 j40 sob Reason for Visit Dysphagia Fatty liver GERD (gastroesophageal reflux disease) Right sided abdominal pain Chief Complaint Rheumatoid arthritis , immunosuppression, meds R30.0 chronic gastritis/former hykes pt dysphagia/gerd/abd. pain R00.2 R06.01 R00.2 R06.01 g47.30 g47.30 j40 sob sob-cp-sent by Reason for Visit Dysphagia Fatty liver GERD (gastroesophageal reflux disease) Right sided abdominal pain Chief Complaint R00.2 R06.01 R00.2 R06.01 g47.30 g47.30 j40 sob sob-cp-sent by dr Montano.Gina K76.9 Rheumatology requested sooner appt Reason for Visit GERD (gastroesophage al reflux disease) Reactive airway disease Seasonal allergic rhinitis Sleep apnea Chief Complaint R00.2 R06.01 R00.2 R06.01 g47.30 g47.30 j40 sob sob-cp-sent by dr [email or web address] [email or web address] Rheumatology requested sooner appt Nonrheumatic mitral insuff. Other forms dyspnea Reason for Visit Allergy to methylpre dnisolone Asthma refractory to systemic steroids GERD (gastroesophageal reflux disease) NICOLE (obstructive sleep apnea) Reactive airway disease Seasonal allergic rhinitis Chief Complaint R00.2 R06.01 R00.2 R06.01 g47.30 g47.30 j40 sob sob-cp-sent by dr Bartholomew K76.9 Rheumatology requested sooner appt Nonrheumatic mitral insuff. Other forms dyspnea sob Reason for Visit Allergy to methylpre dnisolone Asthma refractory to systemic steroids GERD (gastroesophageal reflux disease) NICOLE (obstructive sleep apnea) Reactive airway disease Seasonal allergic rhinitis Asthma refractory to systemic steroids NICOLE (obstructive sleep apnea) Mild pulmonary valve regurgitation Chief Complaint R00.2 R06.01 R00.2 R06.01 g47.30 g47.30 j40 sob sob-cp-sent by dr Bartholomew K76.9 Rheumatology requested sooner appt Nonrheumatic mitral insuff. Other forms dyspnea I34.0 sob R10.13 Reason for Visit Allergy to methylpre dnisolone Asthma refractory to systemic steroids GERD (gastroesophageal reflux disease) NICOLE (obstructive sleep apnea) Reactive airway disease Seasonal allergic rhinitis Asthma refractory to systemic steroids NICOLE (obstructive sleep apnea) Mild pulmonary valve regurgitation Chief Complaint Admit Date sob-cp-sent by May 21, 2024 2 :28pm Charmaine.Gina K76.9 June 01, 2024 1 0:51am Rheumatology requested sooner appt Octob er 2023 11:15am Nonrheumatic mitral insuff. Other forms dyspnea June 01, 2024 2:07pm I34.0 June 01, 2024 2 :08pm sob June 01, 2024 3 :06pm R10.13 June 11, 2024 1 :28pm Difficulty breathing July 20, 2024 7:01pm Shortness of Breath August 13, 2024 3: 38am Reason for Visit Admit Date Allergy to methylprednisolone June 012023 11:15am Asthma refractory to systemic steroids O ctober 2023 11:15am GERD (gastroesophageal reflux disease) O ctober 2023 11:15am NICOLE (obstructive sleep apnea) June 012023 11:15am Reactive airway disease June 01 11:15am Seasonal allergic rhinitis June 01, 2024 11:15am Asthma refractory to systemic steroids O ctober 2023 2:07pm NICOLE (obstructive sleep apnea) June 012023 2:07pm Mild pulmonary valve regurgitation Octob er 2023 2:07pm 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 Other forms dyspnea June 01, 2024 2:07pm I34.0 June 01, 2024 2 :08pm sob June 01, 2024 3 :06pm R10.13 June 11, 2024 1 :28pm Difficulty breathing July 20, 2024 7:01pm Shortness of Breath August 13, 2024 3: 38am Shortness of Breath August 13, 2024 10 :07pm Reason for Visit Admit Date Allergy to methylprednisolone June 012023 11:15am Asthma refractory to systemic steroids O ctober 2023 11:15am GERD (gastroesophageal reflux disease) O ctober 2023 11:15am NICOLE (obstructive sleep apnea) June 012023 11:15am Reactive airway disease June 01 11:15am Seasonal allergic rhinitis June 01, 2024 11:15am Asthma refractory to systemic steroids O ctober 2023 2:07pm NICOLE (obstructive sleep apnea) June 012023 2:07pm Mild pulmonary valve regurgitation Octob er 2023 2:07pm 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 July 20, 2024 7:01pm Mild persistent asthma refractory to sys temic steroids July 20, 2024 7:01pm Allergy to methylprednisolone August 3:38am Asthma exacerbation August 13, 2024 3: 38am Acute on chronic hypoxic respiratory nile lure August 13, 2024 10:07pm Acute respiratory distress August 13, 2024 10:07pm Hypoxia August 13, 2024 10 :07pm Pulmonary fibrosis August 13, 2024 10 :07pm Reactive airway disease August 13 10:07pm Chief Complaint Admit Date R10.13 June 11, 2024 1 :28pm Difficulty breathing July 20, 2024 7:01pm Shortness of Breath August 13, 2024 3: 38am Shortness of Breath August 13, 2024 10 :07pm R05.8, R73.01, Z51.81 August 30, 2024 2:39pm Reason for Visit Admit Date 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 July 20, 2024 7:01pm Mild persistent asthma refractory to sys temic steroids July 20, 2024 7:01pm Allergy to methylprednisolone August 3:38am Asthma exacerbation August 13, 2024 3: 38am Pulmonary fibrosis August 13, 2024 10 :07pm Acute on chronic hypoxic respiratory nile lure August 13, 2024 10:07pm Acute respiratory distress August 13, 2024 10:07pm Hypoxia August 13, 2024 10 :07pm Reactive airway disease August 13 10:07pm Chief Complaint Admit Date R10.13 June 11, 2024 1 :28pm Difficulty breathing July 20, 2024 7:01pm Shortness of Breath August 13, 2024 3: 38am Shortness of Breath August 13, 2024 10 :07pm R05.8, R73.01, Z51.81 August 30, 2024 2:39pm Diff Breathing September 01, 2024 4 :37am Reason for Visit Admit Date 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 July 20, 2024 7:01pm Mild persistent asthma refractory to sys temic steroids July 20, 2024 7:01pm Allergy to methylprednisolone August d2024 3:38am Asthma exacerbation August 13, 2024 3: 38am Pulmonary fibrosis August 13, 2024 10 :07pm Acute on chronic hypoxic respiratory nile lure August 13, 2024 10:07pm Acute respiratory distress August 13, 2024 10:07pm Hypoxia August 13, 2024 10 :07pm Reactive airway disease August 13 10:07pm Acute hypercapnic respiratory failure Elvis sandoval 2024 4:37am Acute on chronic respiratory failure Estevan gray 2024 4:37am Allergy to methylprednisolone September 012024 4:37am Asthma exacerbation September 01, 2024 4 :37am Chief Complaint Admit Date R53.83 R22.1 December 10, 2024 7:06am Chief Complaint Admit Date R53.83 R22.1 December 10, 2024 7:06am E03.9 February 08, 2025 12:00 pm Chief Complaint Admit Date R53.83 R22.1 December 10, 2024 7:06am E03.9 February 08, 2025 12:00 pm lumbar disc degeneration March 03, 2025 2:39pm Chief Complaint Admit Date R53.83 R22.1 December 10, 2024 7:06am E03.9 February 08, 2025 12:00 pm lumbar disc degeneration March 03, 2025 2:39pm m54.16 March 03, 2025 3:45 pm Reason for Visit Admit Date Lumbar radiculopathy, chronic March 03, 2025 2:39pm Chief Complaint Admit Date E03.9 February 08, 2025 12:00 pm lumbar disc degeneration March 03, 2025 2:39pm m54.16 March 03, 2025 3:45 pm Z12.31 March 18, 2025 7:2 6am Reason for Referral Specialty Diagnoses / Procedures Referred By Contac t Referred To Contact Radiology Diagnoses Oropharyngeal dysphagia Spastic hemiplegia affecting right dominant side, unspecified etiology ([facility] [address]) Procedures MR brain w and wo contrast routine Joe Valderrama MD [address] [place] [id number] Referral ID Status Reason Start Date Expiration Date V isits Requested Visits Authorized [id number] Pending Review 04/01/2024 09/28/2024 1 1 Specialty Diagnoses / Procedures Referred By Contac t Referred To Contact Radiology Diagnoses Lumbosacral radiculopathy at L5 Numbness and tingling Procedures MR lumbar spine wo contrast Joe Valderrama MD [address] [place] [id number] Referral ID Status Reason Start Date Expiration Date V isits Requested Visits Authorized [id number] Pending Review 09/22/2023 03/20/2024 1 1 Additional Source Comments INFORMATION SOURCE (unrecogn ized section and content) DATE CREATED AUTHOR 02/03/2018 [facility] DATE CREATED AUTHOR AUTHOR'S ORGANIZ ATION 05/15/2022 [facility] DATE CREATED AUTHOR AUTHOR'S ORGANIZ ATION 09/18/2022 [facility] DATE CREATED AUTHOR AUTHOR'S ORGANIZ ATION 03/12/2024 [facility] DATE CREATED AUTHOR AUTHOR'S ORGANIZ ATION 07/06/2024 [facility] DATE CREATED AUTHOR AUTHOR'S ORGANIZ ATION 01/31/[address] [facility] DATE CREATED AUTHOR AUTHOR'S ORGANIZ ATION 03/01/2025 [facility] DATE CREATED AUTHOR AUTHOR'S ORGANIZ ATION 03/13/2025 [facility] DATE CREATED AUTHOR AUTHOR'S ORGANIZ ATION 03/20/2025 [facility] Source Comments (unrecognize d section and content) In the event this informatio n is protected by the Federal Confidentiality of Alcohol and Drug Abuse Patient Records regulations: The Federal rules restrict any use of the information to criminally investigate or prosecute any alcohol or drug abuse patient.[facility] HospitalIn the event this information is protected by the Federal Confidentiality of Alcohol and Drug Abuse Patient Records regulations: The Federal rules restrict any use of the information to criminally investigate or prosecute any alcohol or drug abuse patient.[facility] HospitalIn the event this information is protected by the Federal Confidentiality of Alcohol and Drug Abuse Patient Records regulations: The Federal rules restrict any use of the information to criminally investigate or prosecute any alcohol or drug abuse patient.[facility] HospitalIn the event this information is protected by the Federal Confidentiality of Alcohol and Drug Abuse Patient Records regulations: The Federal rules restrict any use of the information to criminally investigate or prosecute any alcohol or drug abuse patient.[facility] HospitalIn the event this information is protected by the Federal Confidentiality of Alcohol and Drug Abuse Patient Records regulations: The Federal rules restrict any use of the information to criminally investigate or prosecute any alcohol or drug abuse patient.[facility] HospitalIn the event this information is protected by the Federal Confidentiality of Alcohol and Drug Abuse Patient Records regulations: The Federal rules restrict any use of the information to criminally investigate or prosecute any alcohol or drug abuse patient.[facility] HospitalIn the event this information is protected by the Federal Confidentiality of Alcohol and Drug Abuse Patient Records regulations: The Federal rules restrict any use of the information to criminally investigate or prosecute any alcohol or drug abuse patient.[facility] HospitalIn the event this information is protected by the Federal Confidentiality of Alcohol and Drug Abuse Patient Records regulations: The Federal rules restrict any use of the information to criminally investigate or prosecute any alcohol or drug abuse patient.[facility] HospitalIn the event this information is protected by the Federal Confidentiality of Alcohol and Drug Abuse Patient Records regulations: The Federal rules restrict any use of the information to criminally investigate or prosecute any alcohol or drug abuse patient.[facility] HospitalIn the event this information is protected by the Federal Confidentiality of Alcohol and Drug Abuse Patient Records regulations: The Federal rules restrict any use of the information to criminally investigate or prosecute any alcohol or drug abuse patient.[facility] HospitalIn the event this information is protected by the Federal Confidentiality of Alcohol and Drug Abuse Patient Records regulations: The Federal rules restrict any use of the information to criminally investigate or prosecute any alcohol or drug abuse patient.[facility] HospitalIn the event this information is protected by the Federal Confidentiality of Alcohol and Drug Abuse Patient Records regulations: The Federal rules restrict any use of the information to criminally investigate or prosecute any alcohol or drug abuse patient.[facility] HospitalIn the event this information is protected by the Federal Confidentiality of Alcohol and Drug Abuse Patient Records regulations: The Federal rules restrict any use of the information to criminally investigate or prosecute any alcohol or drug abuse patient.[facility] HospitalIn the event this information is protected by the Federal Confidentiality of Alcohol and Drug Abuse Patient Records regulations: The Federal rules restrict any use of the information to criminally investigate or prosecute any alcohol or drug abuse patient.[facility] HospitalIn the event this information is protected by the Federal Confidentiality of Alcohol and Drug Abuse Patient Records regulations: The Federal rules restrict any use of the information to criminally investigate or prosecute any alcohol or drug abuse patient.[facility] HospitalIn the event this information is protected by the Federal Confidentiality of Alcohol and Drug Abuse Patient Records regulations: The Federal rules restrict any use of the information to criminally investigate or prosecute any alcohol or drug abuse patient.[facility] HospitalIn the event this information is protected by the Federal Confidentiality of Alcohol and Drug Abuse Patient Records regulations: The Federal rules restrict any use of the information to criminally investigate or prosecute any alcohol or drug abuse patient.[facility] HospitalIn the event this information is protected by the Federal Confidentiality of Alcohol and Drug Abuse Patient Records regulations: The Federal rules restrict any use of the information to criminally investigate or prosecute any alcohol or drug abuse patient.[facility] HospitalIn the event this information is protected by the Federal Confidentiality of Alcohol and Drug Abuse Patient Records regulations: The Federal rules restrict any use of the information to criminally investigate or prosecute any alcohol or drug abuse patient.[facility] HospitalIn the event this information is protected by the Federal Confidentiality of Alcohol and Drug Abuse Patient Records regulations: The Federal rules restrict any use of the information to criminally investigate or prosecute any alcohol or drug abuse patient.[facility] HospitalIn the event this information is protected by the Federal Confidentiality of Alcohol and Drug Abuse Patient Records regulations: The Federal rules restrict any use of the information to criminally investigate or prosecute any alcohol or drug abuse patient.[facility] HospitalIn the event this information is protected by the Federal Confidentiality of Alcohol and Drug Abuse Patient Records regulations: The Federal rules restrict any use of the information to criminally investigate or prosecute any alcohol or drug abuse patient.[facility] HospitalIn the event this information is protected by the Federal Confidentiality of Alcohol and Drug Abuse Patient Records regulations: The Federal rules restrict any use of the information to criminally investigate or prosecute any alcohol or drug abuse patient.[facility] HospitalIn the event this information is protected by the Federal Confidentiality of Alcohol and Drug Abuse Patient Records regulations: The Federal rules restrict any use of the information to criminally investigate or prosecute any alcohol or drug abuse patient.[facility] HospitalIn the event this information is protected by the Federal Confidentiality of Alcohol and Drug Abuse Patient Records regulations: The Federal rules restrict any use of the information to criminally investigate or prosecute any alcohol or drug abuse patient.[facility] HospitalIn the event this information is protected by the Federal Confidentiality of Alcohol and Drug Abuse Patient Records regulations: The Federal rules restrict any use of the information to criminally investigate or prosecute any alcohol or drug abuse patient.[facility] HospitalIn the event this information is protected by the Federal Confidentiality of Alcohol and Drug Abuse Patient Records regulations: The Federal rules restrict any use of the information to criminally investigate or prosecute any alcohol or drug abuse patient.[facility] HospitalIn the event this information is protected by the Federal Confidentiality of Alcohol and Drug Abuse Patient Records regulations: The Federal rules restrict any use of the information to criminally investigate or prosecute any alcohol or drug abuse patient.[facility] HospitalIn the event this information is protected by the Federal Confidentiality of Alcohol and Drug Abuse Patient Records regulations: The Federal rules restrict any use of the information to criminally investigate or prosecute any alcohol or drug abuse patient.[facility] HospitalIn the event this information is protected by the Federal Confidentiality of Alcohol and Drug Abuse Patient Records regulations: The Federal rules restrict any use of the information to criminally investigate or prosecute any alcohol or drug abuse patient.[facility] HospitalIn the event this information is protected by the Federal Confidentiality of Alcohol and Drug Abuse Patient Records regulations: The Federal rules restrict any use of the information to criminally investigate or prosecute any alcohol or drug abuse patient.[facility] HospitalIn the event this information is protected by the Federal Confidentiality of Alcohol and Drug Abuse Patient Records regulations: The Federal rules restrict any use of the information to criminally investigate or prosecute any alcohol or drug abuse patient.[facility] HospitalIn the event this information is protected by the Federal Confidentiality of Alcohol and Drug Abuse Patient Records regulations: The Federal rules restrict any use of the information to criminally investigate or prosecute any alcohol or drug abuse patient.[facility] HospitalIn the event this information is protected by the Federal Confidentiality of Alcohol and Drug Abuse Patient Records regulations: The Federal rules restrict any use of the information to criminally investigate or prosecute any alcohol or drug abuse patient.[facility] HospitalIn the event this information is protected by the Federal Confidentiality of Alcohol and Drug Abuse Patient Records regulations: The Federal rules restrict any use of the information to criminally investigate or prosecute any alcohol or drug abuse patient.[facility] HospitalIn the event this information is protected by the Federal Confidentiality of Alcohol and Drug Abuse Patient Records regulations: The Federal rules restrict any use of the information to criminally investigate or prosecute any alcohol or drug abuse patient.[facility] HospitalIn the event this information is protected by the Federal Confidentiality of Alcohol and Drug Abuse Patient Records regulations: The Federal rules restrict any use of the information to criminally investigate or prosecute any alcohol or drug abuse patient.[facility] HospitalIn the event this information is protected by the Federal Confidentiality of Alcohol and Drug Abuse Patient Records regulations: The Federal rules restrict any use of the information to criminally investigate or prosecute any alcohol or drug abuse patient.[facility] HospitalIn the event this information is protected by the Federal Confidentiality of Alcohol and Drug Abuse Patient Records regulations: The Federal rules restrict any use of the information to criminally investigate or prosecute any alcohol or drug abuse patient.[facility] HospitalIn the event this information is protected by the Federal Confidentiality of Alcohol and Drug Abuse Patient Records regulations: The Federal rules restrict any use of the information to criminally investigate or prosecute any alcohol or drug abuse patient.[facility] the event this information is protected by the Federal Confidentiality of Alcohol and Drug Abuse Patient Records regulations: The Federal rules restrict any use of the information to criminally investigate or prosecute any alcohol or drug abuse patient.[facility] Hospital[facility] the event this information is protected by the Federal Confidentiality of Alcohol and Drug Abuse Patient Records regulations: The Federal rules restrict any use of the information to criminally investigate or prosecute any alcohol or drug abuse patient.[facility] Hospital[facility] the event this information is protected by the Federal Confidentiality of Alcohol and Drug Abuse Patient Records regulations: The Federal rules restrict any use of the information to criminally investigate or prosecute any alcohol or drug abuse patient.[facility] Reason for Visit (unrecogniz ed section and content) Reason Comments New Patient Evaluation Reason Comments New Patient Reason Comments Spirometry Specialty Diagnoses / Procedures Referred By Contac t Referred To Contact [facility] [place] Diagnoses Severe persistent asthma, unspecified whether complicated Procedures SPIROMETRY - BASELINE AND POST DILATOR BRNCDILAT RSPSE SPMTRY PRE&POST-BRNCDILAT ADMN Austin Gordillo MD [address] [place] [address] [address]piratory [place] [id number] [place] [address] Referral ID Status Reason Start Date Expiration Date V isits Requested Visits Authorized [id number] Closed Auto-Generate d Referral 06/08/2024 07/02/2025 1 1 Specialty Diagnoses / Procedures Referred By Contac t Referred To [facility] [place] Diagnoses Severe persistent asthma, unspecified whether complicated Procedures NITRIC OXIDE, EXHALED NITRIC OXIDE GAS DETERMINATION Austin Gordillo MD [address] [place] [address] [place] [address] Referral ID Status Reason Start Date Expiration Date V isits Requested Visits Authorized [id number] Closed Auto-Generate d Referral 06/08/2024 07/02/2025 1 1 Reason Comments Med Change Request Reason Comments Critical Care Transport Specialty Diagnoses / Procedures Referred By Contac t Referred To Contact [facility] [place] Diagnoses Moderate persistent asthma, unspecified whether complicated Procedures NITRIC OXIDE, EXHALED NITRIC OXIDE GAS DETERMINATION Al Hammond MD [address] [place] [address] Phone: tel: fax: [place] [address] Referral ID Status Reason Start Date Expiration Date V isits Requested Visits Authorized [id number] Closed Auto-Generate d Referral 09/09/2024 10/09/2025 1 1 Specialty Diagnoses / Procedures [facility] Referred To Contact [facility] [place] Diagnoses Moderate persistent asthma, unspecified whether complicated Procedures SPIROMETRY WITH DILATOR IF OBSTRUCTED BRNCDILAT RSPSE SPMTRY PRE&POST-BRNCDILAT ADMN Al Hammond MD [facility] [place] [address] Phone: tel: fax: [place] [address] Referral ID Status Reason Start Date Expiration Date V isits Requested Visits Authorized [id number] Closed Auto-Generate d Referral 09/09/2024 10/09/2025 1 1 Reason Comments New Patient Pt has trouble swall owing, sometimes gives her a hard time breathing. Pulm is concerned with vocal cords. Reason Comments Follow Up Reason Comments Received Outside Medical Records Reason Comments Joint Pain Specialty Diagnoses / Procedures Referred By Contac t Referred To Contact Rheumatology Diagnoses Severe persistent asthma, unspecified whether complicated Rheumatoid arthritis involving both hands, unspecified whether rheumatoid factor present (HCC) Procedures CONSULT TO RHEUM/IMMUN DISEASE OFFICE/OUTPATIENT [facility] 60 MINUTES Gabi Marroquin APRN.[employer]ING [employer]Y SUPERVISOR [address] [place] [address] Phone: tel: fax: Referral ID Status Reason Start Date Expiration Date V isits Requested Visits Authorized [id number] Closed PCP Requested Referral 10/26/2024 10/26/2025 1 1 Reason Comments Radio Gen A21 Specialty Diagnoses / Procedures Referred By Contac t Referred To Contact XR IMAGING Diagnoses Polyarthralgia Severe persistent asthma, unspecified whether complicated Rash and nonspecific skin eruption Procedures XR HIP BILATERAL 5V PEL/AP/LAT EACH HIP RADEX HIPS BILATERAL WITH PELVIS MINIMUM 5 VIEWS Rheumatology [address] [place] [address] Phone: tel: XR IMAGING [place] [address] Referral ID Status Reason Start Date Expiration Date V isits Requested Visits Authorized [id number] Closed Auto-Generate d Referral 10/27/2024 11/26/2025 1 1 Reason Comments Orders Reason Comments Patient Update Reason Comments Recheck Reason Comments Follow Up 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 Specialty Diagnoses / Procedures Referred By Contac t Referred To Contact Ent - Otolaryngology Diagnoses Refractory obstruction of nasal airway DNS (deviated nasal septum) Procedures CONSULT TO ENT OFFICE/OUTPATIENT [facility] 60 MINUTES Josephine Rosas PA-C [address] [place] [address] Phone: tel: Referral ID Status Reason Start Date Expiration Date V isits Requested Visits Authorized [id number] Closed PCP Requested Referral 10/26/2024 10/26/2025 1 1 Reason Comments Patient Update Reason Comments Assessment Patient Education Specialty Diagnoses / Procedures Referred By Contac t Referred To Contact Nutrition Diagnoses Fatty liver Procedures CONSULT TO NUTRITION THERAPY MEDICAL NUTRITION ASSMT&IVNTJ INDIV EACH [address] [place] [address] [place] [address] Referral ID Status Reason Start Date Expiration Date Visits Requested Visits Authorized [id number] Authorized PCP Requested Referral 12/08/2024 12/08/2025 1 4 Reason Comments Follow Up Reason Comments PSG Check In Reason Comments Med Refill Reason Onset Date Comments Refill Request 01/17/2025 Reason Comments Medication Problem Reason Comments Follow Up Reason Comments Speech Instrumental Swallow Eval Speech Discharge Specialty Diagnoses / Procedures Referred By Contac t Referred To Contact XR IMAGING Diagnoses Dysphagia, unspecified type Procedures XR MODIFIED BARIUM SWALLOW W SPEECH THERAPY RADIOLOGIC EXAM SWALLOW FUNCTION CONTRAST STUDY Josephine Rosas PA-C [address] [facility] [place] [address] Phone: tel: [place] [address] Referral ID Status Reason Start Date Expiration Date V isits Requested Visits Authorized [id number] Closed Auto-Generate d Referral 10/26/2024 11/25/2025 1 1 Care Teams (unrecognized sec tion and content) Team Status: Active Member Role Status Dates Services [facility] Primary Care Provider Active Team Status: Inactive Member Role Status Dates [facility] Primary Care Provider Active Start: May 21, 2024 End: May 21, 2024 Wesley Palacios PA-C Emergency Provider Active Start: May 21, 2024 End: May 21, 2024 Team Status: Inactive Member Role Status Dates [facility] Primary Care Provider Active Start: June 01, 2024 End: June 01, 2024 Eduin Perez DO Attending Provider Active St art: June 01, 2024 End: June 01, 2024 Team Status: Inactive Member Role Status Dates [facility] Primary Care Provider Active Start: June 01, 2024 End: June 01, 2024 Carine Burnett APRN [facility] Attending Provider Active Start: June 01, 2024 End: June 01, 2024 Team Status: Inactive Member Role Status Dates Abhilash Caceres MD Attending Provider Active Start: June 01, 2024 End: June 01, 2024 [facility] Primary Care Prov ider, Referring Provider Active Start: June 01, 2024 End: June 01, 2024 Team Status: Inactive Member Role Status Dates [facility] Primary Care Provider Active Start: June 01, 2024 End: June 01, 2024 Abhilash Caceres MD Attending Provider Activ e Start: June 01, 2024 End: June 01, 2024 Team Status: Inactive Member Role Status Dates [facility] Primary Care Provider Active Start: June 01, 2024 End: June 01, 2024 Enzo Batista DO Emergency Provider Active Sta rt: June 01, 2024 End: June 01, 2024 Team Status: Inactive Member Role Status Dates Services [facility] Primary Care Provider Active Start: June 11, 2024 End: June 11, 2024 Eduin Perez DO Attending Provider Active St art: June 11, 2024 End: June 11, 2024 Team Status: Inactive Member Role Status Dates Services [facility] Primary Care Provider Active Start: July 20, 2024 End: July 23, 2024 Ashanti Dutta DO Emergency Provider Active Start: July 20, 2024 End: July 23, 2024 Keith Forrester MD Admit Provider Active Start: July 20, 2024 End: July 23, 2024 Herbert Rocha DO Attending Provider Active St art: July 20, 2024 End: July 23, 2024 Team Status: Inactive Member Role Status Dates Services [facility] Primary Care Provider Active Start: August 13, 2024 End: August 13, 2024 Mae Rivera Jr, MD Emergency Provider Active Start: August 13, 2024 End: August 13, 2024 Carlo Bills DO Admit Provider Active Start: August 13, 2024 End: August 13, 2024 Keith Forrester MD Attending Provider Active St art: August 13, 2024 End: August 13, 2024 Team Status: Active Member Role Status Dates Justin Rg DO RES Referring Provide r, Other Provider Active Start: March 17, 2024 NON STAFF Primary Care Provider Active Start: March 17, 2024 Nohemi Lund DO Attending Provider Active Sta rt: March 17, 2024 Team Status: Active Member Role Status Dates Justin Rg DO RES Referring Provide r, Other Provider Active Start: March 28, 2024 NON STAFF Primary Care Provider Active Start: March 28, 2024 Karen Vicente MD Attending Provider Active Sta rt: March 28, 2024 Team Status: Inactive Member Role Status Dates NON STAFF Primary Care Provider Active Start: April 20, 2024 End: April 20, 2024 CARLOS ALBERTO Miles- Referring Provider Active Start: April 20, 2024 End: April 20, 2024 Akbar Thurman MD Attending Provider Active Start: April 20, 2024 End: April 20, 2024 Team Status: Active Member Role Status Dates NON STAFF Primary Care Provider Active Start: April 21, 2024 CARLOS ALBERTO Miles- Referring Provider Active Start: April 21, 2024 Akbar Thurman MD Attending Pr ovider, Other Provider Active Start: April 21, 2024 Team Status: Inactive Member Role Status Dates NON STAFF Primary Care Provider Active Start: April 27, 2024 End: April 27, 2024 Eduin Perez DO Attending Provider Active St art: April 27, 2024 End: April 27, 2024 Team Status: Inactive Member Role Status [facility] Primary Care Provider Active Start: April 28, 2024 End: April 29, 2024 Hilton Bonner DO RES Active Start: April 28, 2024 End: April 29, 2024 Mae Rivera Jr, MD Emergency Provider Active Start: April 28, 2024 End: April 29, 2024 Team Status: Active Member Role Status [facility] Primary Care Provider Active Start: June 01, 2024 Eduin Perez DO Attending Provider Active St art: June 01, 2024 [employer] Relationship Specialty Start Date End Date Espinoza Mack MD [address] [place] [address] PCP - General 10/23/07 Team Status: Inactive Member Role Status [facility] Primary Care Provider Active Primo Wilkinson DO Attending Provider Active Duc Shrestha DO RES Referring Provider Active Team Status: Active Member Role Status [facility] Primary Care Provider Active Paras Herndon DO Emergency Provider Active Luz Walker MD Admit Provider, Attending Provide r Active [employer] Relationship Specialty Start Date End Date Shayne Shrestha, PT [address] [place] [address] Physical Therapist Physical Therapy 04/15/23 Team Status: Inactive Member Role Status [facility] Primary Care Provider Active Start: October 15, 2023 End: October 15, 2023 Marlena Gamble MD Attending Provider Active St art: October 15, 2023 End: October 15, 2023 Eduin Perez DO Other Provider Active Start: October 15, 2023 End: October 15, 2023 Duc Shrestha , DO RES Other Provider Active Star t: October 15, 2023 End: October 15, 2023 Team Status: Inactive Member Role Status [facility] Primary Care Provider Active Start: October 22, 2023 End: October 22, 2023 Paras Mast - FHS , DO Attending Provider Active S tart: October 22, 2023 End: October 22, 2023 Justin Malebecky , DO RES Referring Provider Active Start: October 22, 2023 End: October 22, 2023 Team Status: Inactive Member Role Status Dates Services Family [facility] Primary Care Provider Active Start: October 30, 2023 End: October 30, 2023 Ashanti Mcfarlane - FHS , DO Attending Provider Acti ve Start: October 30, 2023 End: October 30, 2023 Justin Rg , DO RES Other Provider Active Sta rt: October 30, 2023 End: October 30, 2023 Team Status: Inactive Member Role Status Dates Justinjunie Rg , DO RES Attending Provider Active Start: November 21, 2023 End: November 21, 2023 Team Status: Inactive Member Role Status Dates Primo Wilkinson DO Attending Provider Active Start : November 21, 2023 End: November 21, 2023 Justin Malebecky , DO RES Referring Provider Active Start: November 21, 2023 End: November 21, 2023 Team Status: Inactive Member Role Status Dates Paras Mast - FHS , DO Attending Provider Active S tart: November 27, 2023 End: November 27, 2023 Justin Malebecky , DO RES Referring Provider Active Start: November 27, 2023 End: November 27, 2023 Team Status: Active Member Role Status Dates Paras Mast - F[facility] , DO Other Provider Active Start : November 27, 2023 Justin Malebecky , DO RES Referring Provider Active Start: November 27, 2023 Akbar Thurman MD Attending Provider Active Start: November 27, 2023 Team Status: Active Member Role Status Dates Justin Rg DO RES Primary Care Provider Active Team Status: Inactive Member Role Status Dates Primo Wilkinson DO Attending Provider Active Start : December 05, 2023 End: December 05, 2023 Justin Rg , DO RES Primary Care Prov ider, Other Provider Active Start: December 05, 2023 End: December 05, 2023 Team Status: Inactive Member Role Status Dates Justinujnie Rg , DO RES Primary Care Provider Active Start: December 24, 2023 End: December 24, 2023 Ashanti Baldwin MD Attending Provider Active St art: December 24, 2023 End: December 24, 2023 Team Status: Inactive Member Role Status Dates Carine Burnett APRN ACNP- Attending Provider Active Start: January 27, 2024 End: January 27, 2024 Justin Rg DO RES Primary Care Provider Active Start: January 27, 2024 End: January 27, 2024 Team Status: Inactive Member Role Status Dates Services Family [facility] Primary Care Provider Active Start: February 05, 2024 End: February 05, 2024 Wesley Palacios PA-C Emergency Provider Active Start: February 05, 2024 End: February 05, 2024 Team Status: Inactive Member Role Status Dates Services [facility] Primary Care Provider Active Start: February 10, 2024 End: February 10, 2024 Ashanti Baldwin MD Attending Provider Active St art: February 10, 2024 End: February 10, 2024 Team Status: Inactive Member Role Status Dates Services [facility] Primary Care Provider Active Start: February 21, 2024 End: February 21, 2024 Ashanti Baldwin MD Attending Provider Active St art: February 21, 2024 End: February 21, 2024 Team Status: Inactive Member Role Status Dates Eduin Perez DO Attending Provider Active St art: February 23, 2024 End: February 23, 2024 Team Status: Active Member Role Status Dates NON STAFF Primary Care Provider Active Team Status: Inactive Member Role Status Dates Jorge Caba MD Attending Provider Active Start: February 25, 2024 End: February 25, 2024 NON STAFF Primary Care Provider Active Start: February 25, 2024 End: February 25, 2024 Team Status: Inactive Member Role Status Dates Justin Rg DO RES Attending Provide r, Referring Provider Active Start: March 17, 2024 End: March 17, 2024 NON STAFF Primary Care Provider Active Start: March 17, 2024 End: March 17, 2024 Team Status: Inactive Member Role Status Dates Jorge Caba MD Attending Provider Active Start: March 02, 2024 End: March 02, 2024 Services [facility] Primary Care Provider Active Start: March 02, 2024 End: March 02, 2024 Team Status: Active Member Role Status Dates Services [facility] Primary Care Provider Active Start: June 01, 2024 Abhilash Caceres MD Attending Provider Activ e Start: June 01, 2024 [employer] Relationship Specialty Start Date End Date Espinoza Mack MD [address] [place] [address] PCP - General 10/23/07 Team Status: Active Member Role Status Dates Services [facility] Primary Care Provider Active Start: May 06, 2024 Kris Alex DO Attending Provider Active Sta rt: May 06, 2024 [employer] Relationship Specialty Start Date End Date Eduin Perez DO [address] [place] [address] PCP - General Family Medicine 06/23/24 [employer] Relationship Specialty Start Date End Date Shayne Shrestha, PT [address] [facility] [place] [address] Physical Therapist Physical Therapy 04/15/23 [employer] Relationship Specialty Start Date End Date Shayne Shrestha, PT [address] [facility] [place] [address] Physical Therapist Physical Therapy 04/15/23 [employer] Relationship Specialty Start Date End Date Eduin Perez DO [address] [address] PCP - General Family Medicine 06/23/24 [employer] Relationship Specialty Start Date End Date Eduin Perez DO [address] [place] [address] PCP - General Family Medicine 06/23/24 [employer] Relationship Specialty Start Date End Date Shayne Shrestha, PT [address] [place] [address] Physical Therapist Physical Therapy 04/15/23 [employer] Relationship Specialty Start Date End Date Shayne Shrestha, PT [address] [place] [address] Physical Therapist Physical Therapy 04/15/23 [employer] Relationship Specialty Start Date End Date Eduin Perez DO [address] [place] [address] PCP - General [facility] Medicine 06/23/24 [employer] Relationship Specialty Start Date End Date Eduin Perez DO [address] [place] [address] PCP - [facility] Medicine 06/23/24 Team Status: Active Member Role Status Dates [facility] Primary Care Provider Active Start: August 13, 2024 Mae Rivera Jr, MD Emergency Provider Active Start: August 13, 2024 DO Alonzo Streeterit Provider Active Start: August 13, 2024 Keith Forrester MD Attending Provider Active St art: August 13, 2024 Team Status: Active Member Role Status Dates [facility] Primary Care Provider Active Start: August 13, 2024 Paras Herndon DO Emergency Provider Active Sta rt: August 13, 2024 DO Alonzo Streeterit Provider, Atttoni gómezing Provider Active Start: August 13, 2024 Team Status: Inactive Member Role Status Dates [facility] Primary Care Provider Active Start: August 13, 2024 End: August 16, 2024 Paras Herndon DO Emergency Provider Active Sta rt: August 13, 2024 End: August 16, 2024 DO Alonzo Streeterit Provider Active Start: August 13, 2024 End: August 16, 2024 Shyam Echevarria MD Attending Provider Active Start : August 13, 2024 End: August 16, 2024 Team Status: Inactive Member Role Status Dates [facility] Primary Care Provider Active Start: August 30, 2024 End: August 30, 2024 Eduin Perez DO Attending Provider Active St art: August 30, 2024 End: August 30, 2024 Team Status: Active Member Role Status Dates Services [facility] Primary Care Provider Active Start: September 01, 2024 Mae Rivera Jr, MD Emergency Provider Active Start: September 01, 2024 Ruddy Orellana MD Admit Provider Active Start: J anuary 2024 Betty Almonte MD Other Provider Active Start: September 01, 2024 Herbert Rocha DO Attending Provider Active St art: September 01, 2024 Team Status: Inactive Member Role Status Dates Services [facility] Primary Care Provider Active Start: September 01, 2024 End: September 01, 2024 Mae Rivera Jr, MD Emergency Provider Active Start: September 01, 2024 End: September 01, 2024 Ruddy Orellana MD Admit Provider Active Start: J anuary 2024 End: September 01, 2024 Betty Almonte MD Other Provider Active Start: September 01, 2024 End: September 01, 2024 Herbert Rocha DO Attending Provider Active St art: September 01, 2024 End: September 01, 2024 [employer] Relationship Specialty Start Date End Date Eduin Perez DO [address] [place] [address] PCP - General Family Medicine 06/23/24 [employer] Relationship Specialty Start Date End Date Eduin Perez DO [address] [place] [address] PCP - General Family Medicine 06/23/24 [employer] Relationship Specialty Start Date End Date Eduin Perez DO [address] [place] [address] PCP - General Family Medicine 06/23/24 [employer] Relationship Specialty Start Date End Date Eduin Perez DO [address] [place] [address] PCP - General Family Medicine 06/23/24 [employer] Relationship Specialty Start Date End Date Eduin Perez DO [address] [place] [address] PCP - General Family Medicine 06/23/24 [employer] Relationship Specialty Start Date End Date Eduin Perez DO [address] [place] [address] PCP - General Family Medicine 06/23/24 [employer] Relationship Specialty Start Date End Date Eduin Perez DO [address] [place] [address] PCP - General Family Medicine 06/23/24 [employer] Relationship Specialty Start Date End Date Eduin Perez DO [address] [place] [address] PCP - General Family Medicine 06/23/24 [employer] Relationship Specialty Start Date End Date Eduin Perez DO [address] [place] [address] PCP - General Family Medicine 06/23/24 [employer] Relationship Specialty Start Date End Date Eduin Perez DO [address] [place] [address] PCP - General Family Medicine 06/23/24 [employer] Relationship Specialty Start Date End Date Eduin Perez DO [address] [place] [address] PCP - General Family Medicine 06/23/24 [employer] Relationship Specialty Start Date End Date Eduin Perez DO [address] [place] [address] PCP - General Family Medicine 06/23/24 [employer] Relationship Specialty Start Date End Date Eduin Perez DO [address] [place] [address] PCP - General Family Medicine 06/23/24 [employer] Relationship Specialty Start Date End Date Eduin Perez DO [address] [place] [address] PCP - General Family Medicine 06/23/24 [employer] Relationship Specialty Start Date End Date Eduin Perez DO [address] [place] [address] PCP - General Family Medicine 06/23/24 [employer] Relationship Specialty Start Date End Date Eduin Perez DO [address] [address] PCP - General Family Medicine 06/23/24 [employer] Relationship Specialty Start Date End Date Eduin Perez DO [address] [place] [address] PCP - General Family Medicine 06/23/24 [employer] Relationship Specialty Start Date End Date Eduin Perez DO [address] [place] [address] PCP - General Family Medicine 06/23/24 [employer] Relationship Specialty Start Date End Date Eduin Perez DO [address] [place] [address] PCP - General Family Medicine 06/23/24 Team Status: Inactive Member Role Status [facility] Primary Care Provider Active Start: December 10, 2024 End: December 10, 2024 Eduin Perez DO Attending Provider Active St art: December 10, 2024 End: December 10, 2024 [employer] Relationship Specialty Start Date End Date Eduin Perez DO [address] [place] [address] PCP - General Family Medicine 06/23/24 [employer] Relationship Specialty Start Date End Date Eduin Perez DO [address] [place] [address] PCP - General Family Medicine 06/23/24 [employer] Relationship Specialty Start Date End Date Eduin Perez DO [address] [place] [address] PCP - General Family Medicine 06/23/24 [employer] Relationship Specialty Start Date End Date Shayne Shrestha, PT [address] [place] [address] Physical Therapist Physical Therapy 04/15/23 [employer] Relationship Specialty Start Date End Date Eduin Perez DO [address] [place] [address] PCP - General Family Medicine 06/23/24 [employer] Relationship Specialty Start Date End Date Eduin Perez DO [address] [place] [address] PCP - General Family Medicine 06/23/24 [employer] Relationship Specialty Start Date End Date Shayne Shrestha, PT [address] [place] [address] Physical Therapist Physical Therapy 04/15/23 [employer] Relationship Specialty Start Date End Date Shayne Shrestha, PT [address] [place] [address] Physical Therapist Physical Therapy 04/15/23 Team Status: Active Member Role Status Dates [facility] Provider Ac tive Team Status: Inactive Member Role Status Dates [facility] Provider Ac tive Start: February 08, 2025 End: February 08, 2025 Eduin Perez DO Attending Provider Active St art: February 08, 2025 End: February 08, 2025 [employer] Relationship Specialty Start Date End Date Eudin Perez DO [address] [place] [address] PCP - [facility] 06/23/24 [employer] Relationship Specialty Start Date End Date Eduin Perez DO [address] [place] [address] PCP - [facility] Medicine 06/23/24 Team Status: Inactive Member Role Status Dates [facility] Provider Ac tive Start: March 03, 2025 End: March 03, 2025 Milagros Sharpe APRN Attending Provider Active Start: March 03, 2025 End: March 03, 2025 [employer] Relationship Specialty Start Date End Date Eduin Perez DO [address] [place] [address] PCP - [facility] Medicine 06/23/24 Team Status: Inactive Member Role Status Dates [facility] Provider Ac tive Start: March 18, 2025 End: March 18, 2025 Eduin Perez DO Attending Provider Active St art: March 18, 2025 End: March 18, 2025 Goals (unrecognized section and content) Goals may be documented in a n alternate section FOR RECORDS PERTAINING TO PATIENTS WHO ARE OR HAVE BEEN ENROLLED IN A CHEMICAL DEPENDENCY/SUBSTANCEABUSE PROGRAM, SOME INFORMATION MAY BE OMITTED. This clinical summary was aggregated from multiple sources. Caution should be exercised in using it in the provision of clinical care. This summary normalizes information from multiple sources, and as a consequence, information in this document may materially change the coding, format and clinical context of patient data. In addition, data may be omitted in some cases. CLINICAL DECISIONS SHOULD BE BASED ON THE PRIMARY CLINICAL RECORDS. [facility]. provides no warranty or guarantee of the accuracy or completeness of information in this document.
[2025-04-05] MEDS: METHOCARBAMOL 500 MG TABLET PO (10:45)
--- NOTE | 2025-04-05 10:45 | XR_ITS ---
The [address] [address] Patient Name: DIOGENES JAMIL MRN: [id number] date: 1970 Sex: F Assigned Patient Location: ER Current Patient Location: ER Accession/Order Number: [id number] Exam Date: 04/05/2025 10:40 Report Date: 04/05/2025 10:58 At the request of: CAROLYNE QUINN DO Procedure: XR knee LT 3V LEFT KNEE - 3 views COMPARISON: None CLINICAL DATA: Twisting injury of the left knee with posterior lateral pain. AP, lateral and internal oblique views were obtained. No acute fracture or dislocation is noted. There is narrowing of the medial tibiofemoral joint compartment. There is minor marginal spurring. Enthesophytes are visualized at the insertion of the quadriceps and patellar tendons. There is also a tiny enthesophyte at the origin of the patellar tendon. There is a trace amount of joint fluid. No focal soft tissue swelling is seen. XR/XR knee LT 3V IMPRESSION: DEGENERATIVE CHANGES. NO ACUTE BONY INJURY. Impression dictated by: Maureen Macdonald M.D. 04/05/2025 10:58 AM Dictation Location: [email or web address] Electronically authenticated by: [id number] Y Date: 04/05/2025 10:58
[2025-04-05 10:53] VITALS: PULSE 93
--- NOTE | 2025-04-05 19:42 | ED.GENADUL1 ---
HPI HPI - General Adult General Chief complaint: Extremity Injury, Lower Stated complaint: FALL L KNEE Time Seen by Provider: 04/05/25 10:14 Source: patient Mode of arrival: Wheelchair Limitations: no limitations History of Present Illness HPI narrative: Patient is a 54-year-old female presenting to the emergency department with complaints of left knee pain. Patient states that she had a trip and fall from a standing height earlier today. She states she was able to ambulate after the fall, and was having significant pain in the right knee. She denies any previous surgeries to the area. No numbness/tingling/weakness in the extremity. She denies any other injuries. Related Data Home Medications ?Medication ?Instructions ?Recorded ?Confirmed albuterol sulfate 90 mcg/actuation inhalation 01/22/23 aerosol inhaler amitriptyline 100 mg tablet mg 01/22/23 amlodipine 2.5 mg tablet mg 01/22/23 cyclobenzaprine 10 mg tablet mg 01/22/23 dronabinol 10 mg capsule mg 01/22/23 febuxostat 40 mg tablet mg 01/22/23 gabapentin 300 mg capsule mg 01/22/23 guanfacine 2 mg tablet,extended mg PO 01/22/23 release 24 hr ipratropium 0.5 mg-albuterol 3 mg ml inhalation 01/22/23 (2.5 mg base)/3 mL nebulization soln metoprolol succinate 25 mg mg PO 01/22/23 tablet,extended release 24 hr montelukast 10 mg tablet mg 01/22/23 ondansetron 8 mg disintegrating mg 01/22/23 tablet pantoprazole 40 mg tablet,delayed mg PO 01/22/23 release promethazine 25 mg tablet mg 01/22/23 spironolactone 50 mg tablet mg 01/22/23 theophylline 300 mg mg PO 01/22/23 tablet,extended release,12 hr Previous Rx's ?Medication ?Instructions ?Recorded cephalexin 500 mg capsule 500 mg PO QID 10 days #40 caps 04/25/23 fluconazole 150 mg tablet 150 mg PO DAILY 1 dose #1 tab 04/25/23 (Diflucan) sulfamethoxazole 800 1 tab PO BID 10 days #20 tabs 04/25/23 mg-trimethoprim 160 mg tablet (Bactrim DS) Allergies Allergy/AdvReac Type Severity Reaction Status Date / Time latex Allergy Severe Hives Verified 04/05/25 10:19 NSAIDS (Non-Steroidal Allergy Mild Vomiting Verified 04/05/25 10:19 Anti-Inflamma prednisone Allergy Mild Hives Verified 04/05/25 10:19 azithromycin Allergy Hives Verified 04/05/25 10:19 ceftriaxone (From Rocephin) Allergy Vomiting Verified 04/05/25 10:19 codeine Allergy Hives Verified 04/05/25 10:19 fluticasone (From Advair Allergy Hives Verified 04/05/25 10:19 Diskus) heparin Allergy Hives Verified 04/05/25 10:19 ketorolac (From Toradol) Allergy Hives Verified 04/05/25 10:19 medroxyprogesterone (From Allergy Hives Verified 04/05/25 10:19 Depo-Provera) morphine Allergy Hives Verified 04/05/25 10:19 nalbuphine (From Nubain) Allergy Hives Verified 04/05/25 10:19 Neuromuscular Blockers, Allergy Hives Verified 04/05/25 10:19 Steroidal salmeterol (From Advair Allergy Swelling Verified 04/05/25 10:19 Diskus) of Lip/Tongue/Throat tizanidine (From Zanaflex) Allergy Cramping Verified 04/05/25 10:19 of the Muscles [id number] Antimigraine Allergy Chest pain Verified 04/05/25 10:19 Agents warfarin (From Coumadin) Allergy Hives Verified 04/05/25 10:19 Opioid HPI Opioid Management Most Recent Opioid Data: Last Pain Scale 6 Today, 10:26 Review of Systems ROS Status of ROS 10 or more systems reviewed and unremarkable except as noted in history and below PFSH PFS Social History Smoking status: Former smoker Little interest or pleasure in doing things: not at all Feeling down, depressed, or hopeless: not at all Exam Narrative Exam Narrative: CONSTITUTIONAL: Well-appearing, answering questions and following commands appropriately SKIN: Was warm and dry. EYES: Sclerae white. EARS, NOSE, THROAT: Moist oral mucosa. RESPIRATORY: Nonlabored respiration CARDIOVASCULAR: Normal rate and regular rhythm. 2+ DP pulses bilaterally GASTROINTESTINAL: Abdomen is nondistended. MUSCULOSKELETAL: There is tenderness to palpation, specifically through the medial joint line of the left knee. She has full range of motion in the left knee. The knee joint is stable through ligamentous testing including anterior/posterior drawer and varus/valgus stress test. She ambulates with a mildly antalgic gait. There is no joint effusion or overlying skin changes. NEUROLOGIC: Patient is awake and alert. Equal strength and sensation to light touch in the bilateral lower extremities. Constitutional Vital Signs, click to edit/add: Last Vital Signs Temp 98.8 F 04/05/25 10:12 Pulse 78 04/05/25 10:12 Resp 16 04/05/25 10:12 BP 144/83 H 04/05/25 10:12 Pulse Ox 98 04/05/25 10:12 O2 Del Method Room Air 04/05/25 10:12 Course Vital Signs Vital signs: Vital Signs Temperature 98.8 F 04/05/25 10:12 Pulse Rate 78 04/05/25 10:12 Respiratory Rate 16 04/05/25 10:12 Blood Pressure 144/83 H 04/05/25 10:12 Pulse Oximetry 98 04/05/25 10:12 Oxygen Delivery Method Room Air 04/05/25 10:12 Temperature 98.8 F 04/05/25 10:12 Pulse Rate 78 04/05/25 10:12 Respiratory Rate 16 04/05/25 10:12 Blood Pressure 144/83 H 04/05/25 10:12 Pulse Oximetry 98 04/05/25 10:12 Oxygen Delivery Method Room Air 04/05/25 10:12 Medical Decision Making MDM Narrative Medical decision making narrative: Patient is a 54-year-old female presenting to the emergency department for evaluation of a left knee injury s/p mechanical fall from standing height earlier today. Vital signs on arrival are within normal limits. She is afebrile and hemodynamically stable. Examination as noted above. She is neurovascularly intact distal to the injury. Her knee joint is stable to ligamentous testing. Differential diagnosis includes acute fracture, ligamentous sprain, meniscal injury, ligamentous tears. X-rays were obtained. She was given oral methocarbamol for symptomatic treatment. X-rays of the left knee independently reviewed and interpreted by myself and radiology demonstrated no acute osseous abnormalities. I do believe the patient is stable for discharge at this time. Patient's presentation is most likely consistent with a sprain. Her knee was wrapped in an Deondre bandage, and she was instructed to obtain a knee brace for further joint support. They were instructed to follow up with her PCP should her symptoms persist. Return precautions were given including any new or worsening symptoms. Patient understands and agrees to the plan. FINAL IMPRESSION: #Acute left knee injury DISPOSITION: Discharged home CONDITION: Good Imaging Data left knee xray: Attestation: I personally reviewed and interpreted this imaging study as follows: Radiologist's impression: ITS Impressions Knee X-Ray 04/05/25 10:45 IMPRESSION: DEGENERATIVE CHANGES. NO ACUTE BONY INJURY. Impression dictated by: Maureen Macdonald M.D. 04/05/2025 10:58 AM Dictation Location: [employer] Electronically authenticated by: [id number] Y Date: 04/05/2025 10:58 Discharge Plan Discharge Chief Complaint: Extremity Injury, Lower Clinical Impression: Injury of knee, left Qualifiers: Encounter type: initial encounter Qualified Code(s): S89.92XA - Unspecified injury of left lower leg, initial encounter Patient Disposition: Home, Self-Care Time of Disposition Decision: 11:04 Condition: Good Mode of Transportation: Private Vehicle Prescriptions / Home Meds: No Action sulfamethoxazole-trimethoprim [Bactrim DS] 800-160 mg tablet 1 tab PO BID 10 Days Qty: 20 0RF cephalexin 500 mg capsule 500 mg PO QID 10 Days Qty: 40 0RF fluconazole [Diflucan] 150 mg tablet 150 mg PO DAILY Qty: 1 0RF Rx Instructions: administer on day 1 of therapy cyclobenzaprine 10 mg tablet ipratropium-albuterol 0.5 mg-3 mg(2.5 mg base)/3 mL solution for nebulization INHALATION amlodipine 2.5 mg tablet ondansetron 8 mg tablet,disintegrating theophylline 300 mg tablet extended release 12 hr PO pantoprazole 40 mg tablet,delayed release (DR/EC) PO promethazine 25 mg tablet gabapentin 300 mg capsule montelukast 10 mg tablet dronabinol 10 mg capsule metoprolol succinate 25 mg tablet extended release 24 hr PO albuterol sulfate 90 mcg/actuation HFA aerosol inhaler INHALATION amitriptyline 100 mg tablet spironolactone 50 mg tablet febuxostat 40 mg tablet guanfacine 2 mg tablet extended release 24 hr PO Print Language: American Instructions: Knee Pain (ED) Additional Instructions: Follow up with orthopedic surgery if symptoms persist. Referrals: [facility] [Primary Care Provider] - 1 week
== END | disposition home or self-care (01) ==
PROVIDERS: Emergency Provider Student in an Organized Health Care Education/Training Program
DX: S89.92XA Unspecified injury of left lower leg, initial encounter (principal); W18.39XA Other fall on same level, initial encounter; Z87.891 Personal history of nicotine dependence
CPT/HCPCS: 73562; 99283